=== PATIENT | male | born 1945 | race Caucasian/White ===

== ENCOUNTER → 2018-01-25 07:06 | Outpatient (CLI) | payer MEDICARE, OTHER, SELFPAY ==
--- NOTE | 2018-01-25 07:17 | CT_ITS ---
STUDY: CT CHEST WITHOUT CONTRAST REASON FOR EXAM: Male, 72 years old. Dyspnea. RADIATION DOSAGE (If Supplied By Facility): CTDIvol = ( 16.12 ) mGy, DLP = ( 545.25 ) mGycm TECHNIQUE: Transaxial imaging was performed without the administration of intravenous contrast material. Multiplanar coronal and sagittal images were reformatted. Individualized dose optimization techniques were used for this CT. COMPARISON: Chest, May 24, 2015. FINDINGS: There is persistent elevation of the right hemidiaphragm. There is bilateral apical pleural scarring most marked on the right. There are scattered blebs throughout the bilateral lungs there is thickening versus fluid in the superior right oblique fissure. There is atelectasis in the right middle lobe. There is mild thickening of the left oblique fissure. There are calcifications along the right diaphragmatic surface. There are minimal bilateral pleural effusions versus pleural thickening. The heart is normal size. Normal pericardium. There is evidence of CABG procedure. There are pacer leads seen in the right heart. There is a lead running along the left chest wall to extend into the chest and along the posterior aspect of the left ventricle. There is nonspecific subcentimeter mediastinal lymphadenopathy. Normal hilar regions. Normal unenhanced pulmonary arteries. There is atherosclerotic calcification of the aortic arch with tortuosity and elongation of the aortic arch and descending thoracic aorta. There are multi-level degenerative changes of the thoracic spine. There is median sternotomy wires in the sternum. The pacer generator lies soft tissue left chest. There is no demonstrated abnormality of the visualized upper abdomen. CT/Chest without Contrast IMPRESSION: 1. Elevated right hemidiaphragm with right middle lobe atelectasis. 2. Diffuse emphysematous changes in lungs without acute infiltrate or mass. 3. Small bilateral pleural effusions. 4. Cardiac pacemaker with evidence of CABG procedure. 5. Right diaphragmatic calcifications. Electronically Signed: Micheal Larson DO at 17:34 EDT Tel [phone], Service support ,
--- NOTE | 2018-01-25 07:45 | RAD_ITS ---
STUDY: SNIFF TEST REASON FOR EXAM: Male, 72 years old. Elevated right hemidiaphragm RADIATION DOSAGE (If Supplied By Facility): CTDIvol = ( ) mGy, DLP = ( ) mGycm. Individualized dose optimization techniques were used for this CT.? FLUOROSCOPY TIME (if supplied): (0:23) minutes/seconds TECHNIQUE: Forced inspiration visualized under fluoroscopy COMPARISON: None. FINDINGS: With forced inspiration, there is normal downward motion of the left hemidiaphragm. However, with forced inspiration there was elevation of the right hemidiaphragm system with paroxysmal movement and paralysis of the right hemidiaphragm. RAD/Fluoroscopy 1 Hr or Less IMPRESSION: Abnormal upward movement of the right hemidiaphragm with forced inspiration consistent with paralyzed right hemidiaphragm. Normal downward movement of the left hemidiaphragm with forced inspiration Electronically Signed: Lane Archer MD at 8:30 EDT , Service support ,
[2018-01-25 07:51] LABS: Base Excess 4 mmol/L (-2 to +2); Bicarbonate 28.1 mmol/L (22-26); Blood Gas Specimen Type ART; O2 Delivery Device Room Air; PO2 62 mmHG (75-100); SITE R Radial; SO2 93 % (95-99); Time Given 744; Total Carbon Dioxide 29 mmol/L; pCO2 38.9 mmHg (35-45); pH 7.47 (7.35-7.45)
== END ==
PROVIDERS: Family Provider Family Medicine; PCP Family Medicine; Visit Provider Internal Medicine Pulmonary Disease
DX: R06.00 Dyspnea, unspecified (principal); R91.8 Other nonspecific abnormal finding of lung field; J43.9 Emphysema, unspecified; R09.02 Hypoxemia
CPT/HCPCS: 36600; 71250; 76000; 82803

== ENCOUNTER → 2018-07-29 14:20 | Outpatient (CLI) | payer MEDICARE, OTHER, SELFPAY ==
--- NOTE | 2018-07-29 14:23 | CT_ITS ---
STUDY: CT CHEST WITHOUT CONTRAST REASON FOR EXAM: Male, 72 years old. Lung nodule RADIATION DOSAGE (If Supplied By Facility): CTDIvol = ( 17.76 ) mGy, DLP = ( 536.91 ) mGycm TECHNIQUE: Transaxial imaging was performed without the administration of intravenous contrast material. Coronal and sagittal 2-D MPR Individualized dose optimization techniques were used for this CT. COMPARISON: CT chest 01/25/2018, x-ray chest 05/24/2015 FINDINGS: Supraclavicular: No acute process. Thoracic body wall soft tissues: Mild symmetric gynecomastia. Left pectoral pacer device. No acute process. Upper abdomen: No acute process. Osseous structures: Median sternotomy. Mild kyphosis and scoliosis. Mild multilevel thoracic spondylosis without apparent stenosis. Mediastinum: Normal esophagus. A few small lymph nodes are present in the mediastinum, none pathologically enlarged. There is no apparent hilar lymphadenopathy. Heart: Mild to moderate cardiac [place] without pericardial effusion. Median sternotomy and CABG. Prominent calcification of the jena coronary arteries. Aortic valve annulus and mild leaflet calcifications. Aorta: Nondilated, mild arch atherosclerosis. Pulmonary arteries: Ectatic, main pulmonary artery 3.2 cm. Lungs: Right lower lobe chronic-appearing atelectasis associated with calcified plaque of the diaphragmatic pleura. Mild pleural thickening extending upward along the posterior pleural reflection of the right lower lobe. Slender loculated effusion right lower lobe posterior pleural reflection 4.8 mm. No effusion on the left. Mild pleural thickening on the left. Multifocal thin-walled cysts are present in the lungs bilaterally, in a pattern favoring chronic sequela from prior infectious/inflammatory process rather than primary polycystic disease. There are a few scattered pulmonary nodules. Largest, left lower lobe, image 63 on the axials by 20 mm, and left upper lobe anterior segment image 51 7 mm. Scattered interstitial scar. Mild pocket wall thickening in the lower lobe basilar segments bilaterally, chronic inflammatory. Chronic interstitial disease and pulmonary nodules are stable compared to prior imaging of 01/25/2018. Right major fissural thickening that was present on the prior study has resolved. Minimal loculated right effusion is stable. Mild bronchial wall thickening is stable. CT/Chest without Contrast IMPRESSION: Stable pattern in the lungs bilaterally of chronic interstitial changes, and pulmonary nodules. The largest pulmonary nodule measures just over 7 mm. Continued follow-up is recommended according to the Fleischner Society Criteria. Next CT chest in 12 months. A follow-up low dose screening CT chest technique would be appropriate at that time. Electronically Signed: Alonzo Torres MD at 14:57 EST Tel , Service support ,
== END ==
PROVIDERS: Family Provider Family Medicine; PCP Family Medicine; Referring Provider Internal Medicine Pulmonary Disease; Visit Provider Internal Medicine Pulmonary Disease
DX: R91.1 Solitary pulmonary nodule (principal)
CPT/HCPCS: 71250

== ENCOUNTER → 2020-04-08 13:03 | Outpatient (CLI) | payer MEDICARE, OTHER, SELFPAY ==
[2019-08-05 13:28] VITALS: BMI 29.1
--- NOTE | 2020-04-08 13:09 | VDLE_ITS ---
Reason For Study: Right leg pain RIGHT CFV is compressible, spontaneous, competent and demonstrates pulsatile venous flow. FV is compressible, spontaneous, competent and demonstrates pulsatile venous flow. POP V is compressible, spontaneous, competent and demonstrates pulsatile venous flow. T/P Trunk is compressible. PTV is compressible. RT PerV is compressible. SFJ is competent and measures 0.74 x 0.74 cm. GSV proximal thigh measures 0.28 x 0.32 cm. GSV above knee is INCOMPETENT for greater than 0.5 seconds. GSV at knee measures 0.41 x 0.43 cm. GSV below knee is competent. ASV proximal calf is INCOMPETENT for greater than 0.5 seconds and measures 0.30 x 0.33 cm. SSV at junction is competent and measures 0.27 x 0.31 cm. Procedure This is a venous duplex using B-mode, color flow and spectral Doppler. Exam performed in department. Interpretation Summary No dvt or sv noted. Reflux noted in thigh GSV and calf ASV. Pulsatile flow noted throughout right leg. Ordering Physician: Isac Busch Referring Physician: Jcarlos Glasgow Performed By: Sarai Morales RVT
--- NOTE | 2020-04-08 13:10 | ADUL_ITS ---
Reason For Study: Atherosclerosis Right Velocities Ext. Iliac Artery, dist = 64.2 cm./sec. Common Femoral Artery, mid = 100.2 cm./sec. Supf Femoral Artery, prox = 57.8 cm./sec. Supf Femoral Artery, mid = 22.3 cm./sec. Supf Femoral Artery, dist. = 66.7 cm./sec. Profunda Femoral Artery = 54.5 cm./sec. Popliteal Artery, prox. = 34.6 cm./sec. Popliteal Artery, mid = 21.8 cm./sec. Popliteal Artery, dist = 16.8 cm./sec. Post. Tibial Artery, prox = 8.4 cm./sec. No flow noted BIOLOGICAL CHEMIST mid-dist. No flow noted PeroA prox. Peroneal Artery, mid = 38.1 cm./sec. Peroneal Artery,dist = 20.4 cm./sec. Ant. Tibial Artery, prox = 16.8 cm./sec. Ant. Tibial Artery, mid = 18.9 cm./sec. Ant. Tibial Artery, dist = 23 cm./sec. Procedure Exam performed in department. Interpretation Summary No flow noted in segments peroneal and posterior tibial on right leg. 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 Ordering Physician: Isac Busch Referring Physician: Jcarlos Glasgow Performed By: Sarai Morales RVT
== END ==
PROVIDERS: PCP Family Medicine; Visit Provider Surgery Vascular Surgery
DX: M79.89 Other specified soft tissue disorders (principal); M79.604 Pain in right leg; I70.221 Atherosclerosis of native arteries of extremities with rest pain, right leg
CPT/HCPCS: 93926; 93971

== ENCOUNTER → 2020-04-30 13:15 | Outpatient (CLI) | payer MEDICARE, OTHER, SELFPAY ==
[2020-04-21 14:32] VITALS: BMI 27.9
[2020-04-30 13:52] LABS: Anion Gap 7 (5-15); BUN 31 mg/dL (7-18); BUN/Creat Ratio 18.5 RATIO (10-20); Calcium,Total 8.8 mg/dL (8.5-10.1); Chloride 93 mmol/L (98-107); Creatinine, Serum 1.68 mg/dL (0.70-1.30); EST Glomerular Filtration Rate 43 mL/min (>60); Est Glom Filt Rate - Afr Amer 52 mL/min (>60); Glucose 291 mg/dL (74-106); Potassium 4.3 mmol/L (3.5-5.1); Sodium Level 132 mmol/L (136-145)
== END ==
PROVIDERS: PCP Family Medicine; Referring Provider Specialist; Visit Provider Specialist
DX: E11.59 Type 2 diabetes mellitus with other circulatory complications (principal); I25.10 Atherosclerotic heart disease of native coronary artery without angina pectoris; I25.5 Ischemic cardiomyopathy; I70.209 Unspecified atherosclerosis of native arteries of extremities, unspecified extremity
CPT/HCPCS: 36415; 80048

== ENCOUNTER → 2020-05-07 11:47 | Outpatient (CLI) | payer MEDICARE, OTHER, SELFPAY ==
[2020-04-21 14:32] VITALS: BMI 27.9
[2020-05-07 12:53] LABS: Anion Gap 7 (5-15); BUN 30 mg/dL (7-18); BUN/Creat Ratio 20.7 RATIO (10-20); Calcium,Total 8.7 mg/dL (8.5-10.1); Chloride 99 mmol/L (98-107); Creatinine, Serum 1.45 mg/dL (0.70-1.30); EST Glomerular Filtration Rate 51 mL/min (>60); Est Glom Filt Rate - Afr Amer 61 mL/min (>60); Glucose 260 mg/dL (74-106); Potassium 4.3 mmol/L (3.5-5.1); Sodium Level 135 mmol/L (136-145)
== END ==
PROVIDERS: PCP Family Medicine; Visit Provider Specialist
DX: I25.5 Ischemic cardiomyopathy (principal); I25.10 Atherosclerotic heart disease of native coronary artery without angina pectoris; I70.209 Unspecified atherosclerosis of native arteries of extremities, unspecified extremity; E11.59 Type 2 diabetes mellitus with other circulatory complications
CPT/HCPCS: 36415; 80048

== ENCOUNTER 2020-05-26 10:30 | Outpatient (RCR) | payer MEDICARE, OTHER, SELFPAY ==
[2020-05-10 14:41] VITALS: BMI 28.2
[2020-05-19 09:36] VITALS: BP 106/82; PULSE 80; RESP 16; TEMP 36.6; BMI 27.1
--- NOTE | 2020-05-19 12:21 | PCM.WC.HP ---
(1) Decubitus ulcer of foot, stage 3 Status: Acute Qualifiers: Laterality: right Qualified Code(s): L89.893 - Pressure ulcer of other site, stage 3 Code(s): L89.893 - Pressure ulcer of other site, stage 3 (2) History of angioplasty of peripheral vessel Status: Acute Code(s): Z98.62 - Peripheral vascular angioplasty status (3) Ischemic cardiomyopathy Status: Acute Code(s): I25.5 - Ischemic cardiomyopathy (4) Biventricular implantable cardioverter-defibrillator (ICD) in situ Status: Chronic Code(s): Z95.810 - Presence of automatic (implantable) cardiac defibrillator (5) Coronary artery disease involving [place] coronary artery of [place] heart Status: Chronic Qualifiers: Code(s): I25.10 - Atherosclerotic heart disease of [place] coronary artery without angina pectoris Comment: MAYS to LAD, SVG to PDA 10/2003; 3.0 x 12 mm Rebel BMS to pD1 03/27/19 (6) Diabetes mellitus type 2 with atherosclerosis of arteries of extremities Status: Chronic Code(s): E11.59 - Type 2 diabetes mellitus with other circulatory complications; I70.209 - Unspecified atherosclerosis of [place] arteries of extremities, unspecified extremity (7) History of coronary artery stent placement Status: Chronic Code(s): Z95.5 - Presence of coronary angioplasty implant and graft Comment: 3.0 x 12 mm Rebel BMS to pD1 03/27/19 History of Present Illness Date of Service: 05/19/20 Chief Complaint: Follow-up right lateral diabetic foot ulcer History of Wound: 74-year-old white male with a left BK amp right partial amp of the right foot states for about a month the right leg has not been feeling well meaning he felt something was not right. Went to see his therapist for his leg limbs and she told him he need to get a shoe right away for the right foot. Within days the right lateral foot opened up with a hole on the right lateral metatarsal. Patient states last hemoglobin A1c was 2 months ago and has around 6. Past Medical History Past Medical History: Chronic Problems (Last Reviewed 05/10/20 @ 15:[address] 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) 2006, 2012 gen change History of coronary artery stent placement (Chronic ~03/2019) 3.0 x 12 mm Rebel BMS to pD1 03/27/19 Peripheral vascular disease due to secondary diabetes (Chronic) Coronary artery disease involving [place] coronary artery of [place] heart (Chronic) MAYS to LAD, SVG to PDA 10/2003; 3.0 x 12 mm Rebel BMS to pD1 03/27/19 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) Past Medical History: Right DFU Allergies/Adverse Reactions: Allergies amiodarone Allergy (Severe, Verified 05/19/20 10:03) pulmonary fibrosis sotalol Allergy (Severe, Verified 05/19/20 10:03) intolerant levofloxacin [From Levaquin] Allergy (Verified 05/19/20 10:12) Pain in joints LEG CRAMPING gabapentin Adverse Reaction (Verified 05/19/20 10:12) Diarrhea latex Adverse Reaction (Verified 05/19/20 10:12) Rash Home Medications: Ambulatory Orders Medication Instructions Recorded Oxycodone HCl/Acetaminophen 1 - 2 tab PO Q4H PRN PRN 03/17/15 [Percocet 5/325] acetaminophen 500 mg tablet 1,000 - 3,000 mg PO TID PRN tab 08/05/19 levothyroxine 200 mcg tablet 200 mcg PO DAILY 08/05/19 omeprazole 40 mg capsule,delayed 40 mg PO DAILY 08/05/19 release prednisone 2.5 mg tablet 2.5 mg PO DAILY 08/05/19 metoprolol succinate 50 mg 50 mg PO DAILY #90 tab 10/13/19 tablet,extended release 24 hr clopidogrel 75 mg tablet 75 mg PO DAILY #90 tab 11/10/19 lisinopril 2.5 mg tablet 2.5 mg PO DAILY #90 tab 11/10/19 pravastatin 40 mg tablet 40 mg PO QHS #90 tab 11/10/19 aspirin 81 mg tablet,delayed 81 mg PO DAILY 12/17/19 release insulin glargine 100 unit/mL 15 unit SC BID ml 12/17/19 subcutaneous solution insulin regular human 100 unit/mL See Rx Instructions SC TID ml 04/21/20 injection solution bumetanide 1 mg tablet 1 mg PO DAILY #0 tab 05/05/20 Cephalexin [Keflex] 500 mg PO Q8H 05/19/20 Smoking Status: Former smoker Review of Systems Constitutional: Denies: Chills, Fever Eyes: Denies: Blurred vision, Drainage, Pain HEENT: Denies: Difficulty Hearing, Difficulty Swallowing, Sore Throat, Visual Changes Cardiovascular: Denies: Chest Pain, Palpitations, Syncope Respiratory: Denies: Cough, Shortness of Breath Gastrointestinal: Denies: Abdominal Pain, Nausea, Vomiting Genitourinary: Denies: Dysuria, Frequency Musculoskeletal: Denies: Joint Pain, Muscle pain Skin: Denies: Jaundice, Rash Neurological: Denies: Balance problems, Change in Speech, Difficulty swallowing, Focal weakness Psychiatric: Denies: Anxiety, Depression Endocrine: Denies: Change in Body Habitus Hematologic/ Lymphatic: Denies: Adenopathy - Physical Exam Vital Signs Temp Pulse Resp BP 97.9 F 80 16 106/82 H 05/19/20 09:36 05/19/20 09:36 05/19/20 09:36 05/19/20 09:36 General: Oriented x3, Cooperative, Well developed HEENT: Atraumatic, PERRLA Oral: Moist Mucosa Neck: Supple, No JVD Lungs: Clear to auscultation, Normal air movement Cardiovascular: Regular rate, Regular Rhythm Abdomen: Bowel Sounds Present, Soft, Non Tender, No Hepato-splenomegaly Extremities: No clubbing, No edema Wound Measurements and Assessment WC - Nurse 1 - General Ulcer Measurement Start: 05/19/20 09:36 Freq: Status: Active Protocol: Activity Type Activity Date Activity User E-Sign Co-Sign Detail Recorded Client Recorded Date Recorded By Document 05/19/20 09:36 [facility] [id number] 05/19/20 09:59 [facility] 05/19/20 09:36 Wound Center Nurse 1 [Ulcer Assessment] #3- R LAT FOOT -Combined with other wound No -Current Size (cm) - Length 0.8 -Current Size (cm) - Width 0.9 -Current Size (cm) - Depth 0.5 -Total Square Cm 0.72 -Date of Last Picture (Recall this 05/19/20 field) -Photo Taken Yes -Epithelialization None Present -Tunneling No -Undermining/Tunneling No -Circular Undermining No -Exudate Amt Small -Exudate Type Serosanguineous -Wound Margin Distinct, Outline Attached -Granulation Amt None Present (0 %) -Slough/Fibrin Yes -Necrosis Amt Large (67-100%) -Necrotic Tissue Type Adherent Slough -Texture (Allison-wound Skin Appearance) Assessed, Scarring -Moisture (Allison-wound Skin Appearance Assessed, ) Maceration -Color (Allison-wound Skin Appearance) Assessed -Temperature (Allison-wound Skin No Abnormality Appearance) (Pt Warm) -Tenderness on Palpation (Allison-wound No Skin Appearance) -Ulcer Cleansing Rinsed/ Irrigated with Saline -Foul Odor after Cleansing No -Anesthetic Used 5% Lidocaine Gel [Edema Assessment] -Lower Limb Edema Present Yes -Right Calf (cm) 38.1 -Right Ankle (cm) 26.1 WC - Nurse 2 - General Ulcer CM Notes Start: 05/19/20 09:36 Freq: Status: Active Protocol: Activity Type Activity Date Activity User E-Sign Co-Sign Detail Recorded Client Recorded Date Recorded By Document 05/19/20 10:31 MW [id number] 05/19/20 10:40 MW 05/19/20 10:31 Wound Center Nurse 2 [Procedure/Treatment] #3- R LAT FOOT -Time 10:34 -Correct Patient Yes -Correct Side, Site, Position Yes -Correct Procedure Yes -Procedure Performed Yes -Type of Procedure Debridement -Clinical Debridement Subcutaneous -Tissue Removed Subcutaneous -Post Debridement (cm) - Length 1.4 -Post Debridement (cm) - Width 2.0 -Post Debridement (cm) - Depth 0.4 -Total Square (Post) (cm) 2.80 -Area of Debridement (cm) - Length 1.4 -Area of Debridement (cm) - Width 2.0 -Total Square (Area) (cm) 2.80 -Tunneling No -Undermining/Tunneling No -Circular Undermining No -Wound/Ulcer Outcome Not Healed -Ulcer Cleansing Rinsed/ Irrigated with Saline -Foul Odor after Cleansing No -Bioengineered Tissue No -Bleeding Controlled with Pressure -Offloading No -Treatment Response Procedure Tolerated Well -Debridement - Subq, 1st 20sq cm Yes [See Physician Procedure note for Specifics] Pain Scale: 0-10 Numeric [Pain] -Is Patient Pain Free? Yes GEOVANNI - Nurse 3 - General Ulcer D/C NN Start: 05/19/20 09:36 Freq: Status: Active Protocol: Activity Type Activity Date Activity User E-Sign Co-Sign Detail Recorded Client Recorded Date Recorded By Document 05/19/20 11:07 [facility] [id number] 05/19/20 11:08 [facility] 05/19/20 11:07 Wound Care Nurse 3 [Wound Dressing] #3- R LAT FOOT -Ulcer Cleansing Rinsed/ Irrigated with Saline -Foul Odor after Cleansing No -Primary Dressing Applied Fibracol Plus 4x4,NonAdherent Contact Layer -Primary Dressing Covered/Secured Dry Gauze, with Secured with Tape -Fibracol Plus 4x4 1 [Compression Applied] Right -Compression Wrap Jem Wrap [Post Procedure Tolerated] -Treatment Response Procedure Tolerated Well Pain Scale: 0-10 Numeric [Pain] -Is Patient Pain Free? Yes WC - Visit Discharge [Visit Discharge Information] -Discharge Condition Stable -Ambulatory Status Ambulatory,Cane -Transportation Private Auto -Accompanied by Musculoskeletal: No Tenderness to Palpation of Joints or Extremities Lymphatic: No Cervical, Supraclavicular, or Inguinal Adenopathy Neurological: Cranial nerves II-XII grossly intact, Neuro grossly intact Psych/Mental Status: Normal Affect, Appropriate Debridement Note Post-Debridement Measurements/Treatment - Nurse 2 - General Ulcer CM Notes Start: 05/19/20 09:36 Freq: Status: Active Protocol: Activity Type Activity Date Activity User E-Sign Co-Sign Detail Recorded Client Recorded Date Recorded By Document 05/19/20 10:31 MW [id number] 05/19/20 10:40 MW 05/19/20 10:31 Wound Center Nurse 2 #3- R LAT FOOT -Time 10:34 -Correct Patient Yes -Correct Side, Site, Position Yes -Correct Procedure Yes -Procedure Performed Yes -Type of Procedure Debridement -Clinical Debridement Subcutaneous -Tissue Removed Subcutaneous -Post Debridement (cm) - Length 1.4 -Post Debridement (cm) - Width 2.0 -Post Debridement (cm) - Depth 0.4 -Total Square (Post) (cm) 2.80 -Area of Debridement (cm) - Length 1.4 -Area of Debridement (cm) - Width 2.0 -Total Square (Area) (cm) 2.80 -Tunneling No -Undermining/Tunneling No -Circular Undermining No -Wound/Ulcer Outcome Not Healed -Ulcer Cleansing Rinsed/ Irrigated with Saline -Foul Odor after Cleansing No -Bioengineered Tissue No -Bleeding Controlled with Pressure -Offloading No -Treatment Response Procedure Tolerated Well -Debridement - Subq, 1st 20sq cm Yes Pain Scale: 0-10 Numeric Is Patient Pain Free? Yes - Nurse 3 - General Ulcer D/C NN Start: 05/19/20 09:36 Freq: Status: Active Protocol: Activity Type Activity Date Activity User E-Sign Co-Sign Detail Recorded Client Recorded Date Recorded By Document 05/19/20 11:07 [facility] [id number] 05/19/20 11:08 [facility] 05/19/20 11:07 Wound Care Nurse 3 #3- R LAT FOOT -Ulcer Cleansing Rinsed/ Irrigated with Saline -Foul Odor after Cleansing No -Primary Dressing Applied Fibracol Plus 4x4,NonAdherent Contact Layer -Primary Dressing Covered/Secured with Dry Gauze, Secured with Tape -Fibracol Plus 4x4 1 Right -Compression Wrap Jem Wrap Treatment Response Procedure Tolerated Well Pain Scale: 0-10 Numeric Is Patient Pain Free? Yes - Visit Discharge Discharge Condition Stable Ambulatory Status Ambulatory,Cane Transportation Private Auto Accompanied by Wound debrided: Right DFU Wound Grade/Stage: Stage III Type of Debridement: Excisional debridement Anesthesia Used: 5% Lidocaine Gel Depth: Down to and including healthy tissue, in the subcutaneous layer Percentage of wound debrided: 100 Instrument Used: 7mm curette, #15 blade, Forceps Tissue Removed: Devitalized tissue slough Severity: Fat Layer Exposed Amount of bleeding with debridement: Mild Bleeding Controlled with: Compression and gauze Patient tolerated procedure well Assessment/Plan Aerobic and anaerobic cultures obtained Assessment: Right DFU. Coronary artery disease. Diabetes with insulin dependency. Poly neuropathy Plan: Wash right foot with Hibiclens or antibacterial soap. Pack wound with Fibracol moistened then Adaptic. Cover with gauze may use Coban then Jem wrap to lower leg every day. We will call with culture results. Start metronidazole 250 3 times daily x14 days #42. No up in 1 week
[2020-05-26 10:32] VITALS: BP 101/47; PULSE 91; RESP 16; TEMP 36.1; BMI 27.1
--- NOTE | 2020-05-26 12:19 | PN.PCM_ITS ---
(1) Decubitus ulcer of foot, stage 3 Status: Acute Qualifiers: Laterality: right Qualified Code(s): L89.893 - Pressure ulcer of other site, stage 3 Code(s): L89.893 - Pressure ulcer of other site, stage 3 (2) History of angioplasty of peripheral vessel Status: Acute Code(s): Z98.62 - Peripheral vascular angioplasty status (3) Ischemic cardiomyopathy Status: Acute Code(s): I25.5 - Ischemic cardiomyopathy (4) Biventricular implantable cardioverter-defibrillator (ICD) in situ Status: Chronic Code(s): Z95.810 - Presence of automatic (implantable) cardiac defibrillator (5) Coronary artery disease involving hamilton coronary artery of hamilton heart Status: Chronic Qualifiers: Code(s): I25.10 - Atherosclerotic heart disease of [place] coronary artery without angina pectoris Comment: MAYS to LAD, SVG to PDA 10/2003; 3.0 x 12 mm Rebel BMS to pD1 03/27/19 (6) Diabetes mellitus type 2 with atherosclerosis of arteries of extremities Status: Chronic Code(s): E11.59 - Type 2 diabetes mellitus with other circulatory complications; I70.209 - Unspecified atherosclerosis of [place] arteries of extremities, unspecified extremity (7) History of coronary artery stent placement Status: Chronic Code(s): Z95.5 - Presence of coronary angioplasty implant and graft Comment: 3.0 x 12 mm Rebel BMS to pD1 03/27/19 Type of Wound Date of Service: 05/26/20 Chief Complaint: Follow-up right lateral diabetic foot ulcer History of Wound: 74-year-old white male with a left BK amp right partial amp of the right foot states for about a month the right leg has not been feeling well meaning he felt something was not right. Went to see his therapist for his leg limbs and she told him he need to get a shoe right away for the right foot. Within days the right lateral foot opened up with a hole on the right lateral metatarsal. Patient states last hemoglobin A1c was 2 months ago and has around 6. Progress of Wound: Today the hole on the lateral aspect of the right foot is slightly smaller but still there we will apply a snap wound VAC to the area today. Cultures came back positive for many bacteria will be started on a couple of antibiotics. Patient is also going to start wearing a new boot so his foot does not slide around. - Physical Exam Vital Signs Temp Pulse Resp BP 97.0 F L 91 16 101/47 L 05/26/20 10:32 05/26/20 10:32 05/26/20 10:32 05/26/20 10:32 General: Oriented x3, Cooperative, Well developed HEENT: Atraumatic, PERRLA Oral: Moist Mucosa Neck: Supple, No JVD Lungs: Clear to auscultation, Normal air movement Cardiovascular: Regular rate, Regular Rhythm Abdomen: Bowel Sounds Present, Soft, Non Tender, No Hepato-splenomegaly Extremities: No clubbing, Edema Skin: Ulcer/ Wound - Decubitus ulcer right lateral foot Wound Measurements and Assessment WC - Nurse 1 - General Ulcer Measurement Start: 05/19/20 09:36 Freq: Status: Active Protocol: Activity Type Activity Date Activity User E-Sign Co-Sign Detail Recorded Client Recorded Date Recorded By Document 05/26/20 10:32 HENRY [id number] 05/26/20 10:41 HENRY 05/26/20 10:32 Wound Center Nurse 1 [Ulcer Assessment] #4- R PLANTAR -Combined with other wound No -Current Size (cm) - Length 0.4 -Current Size (cm) - Width 1 -Current Size (cm) - Depth 0.1 -Total Square Cm 0.4 -Date of Last Picture (Recall this 05/26/20 field) -Photo Taken Yes -Epithelialization None Present -Tunneling No -Undermining/Tunneling No -Circular Undermining No -Exudate Amt Small -Exudate Type Serosanguineous -Wound Margin Distinct, Outline Attached -Granulation Amt Medium (34-66%) -Granulation Quality Red -Slough/Fibrin Yes -Necrosis Amt Medium (34-66%) -Necrotic Tissue Type Adherent Slough -Texture (Allison-wound Skin Appearance) Assessed, Scarring -Moisture (Allison-wound Skin Appearance Assessed ) -Color (Allison-wound Skin Appearance) Assessed -Temperature (Allison-wound Skin No Abnormality Appearance) (Pt Warm) -Tenderness on Palpation (Allison-wound No Skin Appearance) -Ulcer Cleansing Rinsed/ Irrigated with Saline -Foul Odor after Cleansing No -Anesthetic Used 4% Lidocaine Solution #3- R LAT FOOT -Combined with other wound No -Current Size (cm) - Length 0.6 -Current Size (cm) - Width 0.7 -Current Size (cm) - Depth 0.3 -Total Square Cm 0.42 -Photo Taken No -Epithelialization None Present -Tunneling No -Undermining/Tunneling No -Circular Undermining No -Exudate Amt Medium -Exudate Type Serosanguineous -Wound Margin Distinct, Outline Attached -Granulation Amt Medium (34-66%) -Granulation Quality Red -Slough/Fibrin Yes -Necrosis Amt Medium (34-66%) -Necrotic Tissue Type Adherent Slough -Texture (Allison-wound Skin Appearance) Assessed, Scarring -Moisture (Allison-wound Skin Appearance Assessed ) -Color (Allison-wound Skin Appearance) Assessed -Temperature (Allison-wound Skin No Abnormality Appearance) (Pt Warm) -Tenderness on Palpation (Allison-wound No Skin Appearance) -Ulcer Cleansing Rinsed/ Irrigated with Saline -Foul Odor after Cleansing No -Anesthetic Used 4% Lidocaine Solution [Edema Assessment] -Lower Limb Edema Present Yes -Right Calf (cm) 39.5 -Right Ankle (cm) 26.5 WC - Nurse 2 - General Ulcer CM Notes Start: 05/19/20 09:36 Freq: Status: Active Protocol: Activity Type Activity Date Activity User E-Sign Co-Sign Detail Recorded Client Recorded Date Recorded By Document 05/26/20 11:07 MW [id number] 05/26/20 11:17 MW 05/26/20 11:07 Wound Center Nurse 2 [Procedure/Treatment] #4- R PLANTAR -Time 11:07 -Correct Patient Yes -Correct Side, Site, Position Yes -Correct Procedure Yes -Procedure Performed No -Post Debridement (cm) - Length 0 -Post Debridement (cm) - Width 0 -Post Debridement (cm) - Depth 0 -Total Square (Post) (cm) 0 -Wound/Ulcer Outcome Healed- Epithelialized -Ulcer Cleansing Rinsed/ Irrigated with Saline -Debridement - Subq, 1st 20sq cm No #3- R LAT FOOT -Time 11:08 -Correct Patient Yes -Correct Side, Site, Position Yes -Correct Procedure Yes -Procedure Performed Yes -Type of Procedure Debridement -Clinical Debridement Subcutaneous -Tissue Removed Subcutaneous -Post Debridement (cm) - Length 0.8 -Post Debridement (cm) - Width 0.7 -Post Debridement (cm) - Depth 0.4 -Total Square (Post) (cm) 0.56 -Area of Debridement (cm) - Length 0.8 -Area of Debridement (cm) - Width 0.7 -Total Square (Area) (cm) 0.56 -Tunneling No -Undermining/Tunneling No -Circular Undermining No -Wound/Ulcer Outcome Not Healed -Ulcer Cleansing Rinsed/ Irrigated with Saline -Foul Odor after Cleansing No -Bioengineered Tissue No -Bleeding Controlled with Pressure -Offloading No -Treatment Response Procedure Tolerated Well -Debridement - Subq, 1st 20sq cm Yes [See Physician Procedure note for Specifics] Pain Scale: 0-10 Numeric [Pain] -Is Patient Pain Free? Yes - Nurse 3 - General Ulcer D/C NN Start: 05/19/20 09:36 Freq: Status: Active Protocol: Activity Type Activity Date Activity User E-Sign Co-Sign Detail Recorded Client Recorded Date Recorded By Document 05/26/20 11:49 MT [id number] 05/26/20 11:50 MT 05/26/20 11:49 Wound Care Nurse 3 [Wound Dressing] #3- R LAT FOOT -Ulcer Cleansing Rinsed/ Irrigated with Saline -Other Dressing SNAP AND JEM WRAPS [Compression Applied] Right -Compression Wrap Jem Wrap WC - Visit Discharge [Visit Discharge Information] -Discharge Condition Stable -Ambulatory Status Ambulatory -Transportation Private Auto -Medication Reconcilliation completed No & provided to patient/care provider -Clinical Summary of Care Provided Yes -Notes: DONT REMOVE SNAP VAC FOR ONE WEEK Musculoskeletal: No Tenderness to Palpation of Joints or Extremities Lymphatic: No Cervical, Supraclavicular, or Inguinal Adenopathy Neurological: Cranial nerves II-XII grossly intact, Neuro grossly intact Psych/Mental Status: Normal Affect, Appropriate Debridement Note Post-Debridement Measurements/Treatment - Nurse 2 - General Ulcer CM Notes Start: 05/19/20 09:36 Freq: Status: Active Protocol: Activity Type Activity Date Activity User E-Sign Co-Sign Detail Recorded Client Recorded Date Recorded By Document 05/19/20 10:31 MW [id number] 05/19/20 10:40 MW Document 05/26/20 11:07 MW [id number] 05/26/20 11:17 MW 05/19/20 05/26/20 10:31 11:07 Wound Center Nurse 2 #4- R PLANTAR -Time 11:07 -Correct Patient Yes -Correct Side, Site, Position Yes -Correct Procedure Yes -Procedure Performed No -Post Debridement (cm) - Length 0 -Post Debridement (cm) - Width 0 -Post Debridement (cm) - Depth 0 -Total Square (Post) (cm) 0 -Wound/Ulcer Outcome Healed- Epithelialized -Ulcer Cleansing Rinsed/ Irrigated with Saline -Debridement - Subq, 1st 20sq cm No #3- R LAT FOOT -Time 10:34 11:08 -Correct Patient Yes Yes -Correct Side, Site, Position Yes Yes -Correct Procedure Yes Yes -Procedure Performed Yes Yes -Type of Procedure Debridement Debridement -Clinical Debridement Subcutaneous Subcutaneous -Tissue Removed Subcutaneous Subcutaneous -Post Debridement (cm) - Length 1.4 0.8 -Post Debridement (cm) - Width 2.0 0.7 -Post Debridement (cm) - Depth 0.4 0.4 -Total Square (Post) (cm) 2.80 0.56 -Area of Debridement (cm) - Length 1.4 0.8 -Area of Debridement (cm) - Width 2.0 0.7 -Total Square (Area) (cm) 2.80 0.56 -Tunneling No No -Undermining/Tunneling No No -Circular Undermining No No -Wound/Ulcer Outcome Not Healed Not Healed -Ulcer Cleansing Rinsed/ Rinsed/ Irrigated with Irrigated with Saline Saline -Foul Odor after Cleansing No No -Bioengineered Tissue No No -Bleeding Controlled with Pressure Pressure -Offloading No No -Treatment Response Procedure Procedure Tolerated Well Tolerated Well -Debridement - Subq, 1st 20sq cm Yes Yes Pain Scale: 0-10 Numeric Is Patient Pain Free? Yes Yes WC - Nurse 3 - General Ulcer D/C NN Start: 05/19/20 09:36 Freq: Status: Active Protocol: Activity Type Activity Date Activity User E-Sign Co-Sign Detail Recorded Client Recorded Date Recorded By Document 05/19/20 11:07 [facility] [id number] 05/19/20 11:08 [facility] Document 05/26/20 11:49 [place] [id number] 05/26/20 11:50 [place] 05/19/20 05/26/20 11:07 11:49 Wound Care Nurse 3 #3- R LAT FOOT -Ulcer Cleansing Rinsed/ Rinsed/ Irrigated with Irrigated with Saline Saline -Foul Odor after Cleansing No -Primary Dressing Applied Fibracol Plus 4x4,NonAdherent Contact Layer -Other Dressing SNAP AND JEM WRAPS -Primary Dressing Covered/Secured with Dry Gauze, Secured with Tape -Fibracol Plus 4x4 1 Right -Compression Wrap Jem Wrap Jem Wrap Treatment Response Procedure Tolerated Well Pain Scale: 0-10 Numeric Is Patient Pain Free? Yes WC - Visit Discharge Discharge Condition Stable Stable Ambulatory Status Ambulatory,Cane Ambulatory Transportation Private Auto Private Auto Accompanied by Medication Reconcilliation completed & No provided to patient/care provider Clinical Summary of Care Provided Yes Notes: DONT REMOVE SNAP VAC FOR ONE WEEK Wound debrided: Right lateral foot decubitus ulcer Wound Grade/Stage: Stage III Type of Debridement: Excisional debridement Anesthesia Used: 5% Lidocaine Gel Depth: Down to and including healthy tissue Percentage of wound debrided: 100 Instrument Used: 5mm curette Tissue Removed: Slough and devitalized tissue Severity: Fat Layer Exposed Amount of bleeding with debridement: Mild Bleeding Controlled with: Pressure Patient tolerated procedure well Assessment/Plan Active Problems (Last Reviewed 05/10/20 @ 15:[address] Jovana Singh MD) Decubitus ulcer of foot, stage 3 (Acute) History of angioplasty of peripheral vessel (Acute ~05/04/20) Ischemic cardiomyopathy (Acute) Biventricular implantable cardioverter-defibrillator (ICD) in situ (Chronic) History of coronary artery stent placement (Chronic ~03/2019) 3.0 x 12 mm Rebel BMS to pD1 03/27/19 Coronary artery disease involving hamilton coronary artery of hamilton heart (Chronic) MAYS to LAD, SVG to PDA 10/2003; 3.0 x 12 mm Rebel BMS to pD1 03/27/19 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) Assessment: Right DFU. Coronary artery disease. Diabetes with insulin dependency. Poly neuropathy Plan: Wound VAC to right lateral foot. Prescription written for boot for right foot. Start antibiotic therapy that was writ. Continue start metronidazole 250 3 times daily x14 days #42. Follow-up in 1 week. No up in 1 week
== END 2020-05-31 23:59 ==
LOC: WC 10:30
PROVIDERS: PCP Family Medicine; Referring Provider Family Medicine; Visit Provider Nurse Practitioner
DX: L89.893 Pressure ulcer of other site, stage 3 (principal); I25.5 Ischemic cardiomyopathy; I25.10 Atherosclerotic heart disease of native coronary artery without angina pectoris; E11.59 Type 2 diabetes mellitus with other circulatory complications; I70.209 Unspecified atherosclerosis of native arteries of extremities, unspecified extremity; Z95.5 Presence of coronary angioplasty implant and graft; G47.33 Obstructive sleep apnea (adult) (pediatric); E11.51 Type 2 diabetes mellitus with diabetic peripheral angiopathy without gangrene; Z95.810 Presence of automatic (implantable) cardiac defibrillator; Z79.899 Other long term (current) drug therapy; Z79.82 Long term (current) use of aspirin; Z79.02 Long term (current) use of antithrombotics/antiplatelets; Z87.891 Personal history of nicotine dependence; E11.42 Type 2 diabetes mellitus with diabetic polyneuropathy
CPT/HCPCS: 11042; 87070; 87075; 87077; 87186; 87205; 97607; 99213; G0463

== ENCOUNTER 2020-06-09 11:35 | Emergency (ER) | payer MEDICARE, OTHER, SELFPAY ==
[2020-06-09 10:25] VITALS: BMI 27.1
[2020-06-09 11:39] VITALS: BP 123/66; PULSE 107; RESP 20; TEMP 36.3; O2SAT 99; BMI 27.8
--- NOTE | 2020-06-09 12:06 | EKG12_ITS ---
Test Reason : SOB Blood Pressure : / mmHG Vent. Rate : 102 BPM Atrial Rate : 102 BPM P-R Int : 000 ms QRS Dur : 154 ms QT Int : 364 ms P-R-T Axes : 046 191 016 degrees QTc Int : 474 ms Ventricular-paced rhythm Biventricular pacemaker detected Abnormal ECG Confirmed by TERRANCE ELLSWORTH, PRIMITIVO ([id number]), editor producer FRANTZ LYNN ([id number]) on 06/11/2020 2:03:35 PM Referred By: ABHISHEK/DAVID Confirmed By:PRIMITIVO CARLOS MD
--- NOTE | 2020-06-09 12:25 | RAD_ITS ---
STUDY: X-RAY CHEST REASON FOR EXAM: Male, 74 years old. INCREASED SOB WITH EXERTION OVER LAST COUPLE WEEKS. FATIGUE. TECHNIQUE: Single AP portable view of the chest. COMPARISON: Comparison is made with prior study dated 05/24/2016. FINDINGS: EKG electrodes are seen. Stable mild increased markings at the right lung base suggestive of scarring. Stable elevation of the right hemidiaphragm. Linear calcified pleural plaques at the right lung base. 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 A left-sided dual-chamber pacemaker is seen. Normal mediastinum and sandra. Normal visualized pulmonary arteries. There is atherosclerotic calcification of the aortic arch with tortuosity. Normal visualized thoracic spine. Normal visualized ribs, clavicles, and shoulders. There is no demonstrated abnormality of the visualized soft tissue structures of the upper abdomen. RAD/Chest 1 View (Portable) IMPRESSION: Elevation of the right hemidiaphragm. Findings suggestive of linear scarring at the right lung base with calcified right pleural plaques. Electronically Signed: Ramon Lemus, at 12:57 EST , Service support ,
[2020-06-09 12:44] LABS: Absolute Lymphocyte Count 0.32 X10^3/uL (0.83-4.51); Absolute Neutrophil Count 6.4 X10^3/uL (2.0-7.7); Basophil# 0.03 X10^3/uL; Basophil% 0.4 % (0-1); Eosinophil# 0.01 X10^3/uL; Eosinophils% 0.1 % (0-5); Hematocrit 31.7 % (40-54); Hemoglobin 10.7 g/dL (13.0-16.5); Lymphocyte # 0.32 X10^3/ul (4.0); Lymphocyte % 4.6 % (19-41); Mean Corp Hgb Conc 33.8 g/dL (32-36); Mean Corpuscular Hgb 32.8 pg (27.0-32.0); Mean Corpuscular Volume 97.2 fL (80-94); Mean Platelet Vol. 8.6 fl (6.2-12.0); Monocyte# 0.26 X10^3/uL; Monocyte% 3.7 % (0-10); NRBC Flagged by Analyzer 0 % (0-5); Neutrophil # 6.36 X10^3/uL (2.7-7.7); Neutrophil % 90.8 % (47-70); POSITIVE DIFFERENTIAL YES; Platelet Count 158 K/mm3 (150-450); RBC Distribution Width CV 13.9 % (11.6-14.6); RBC Distribution Width SD 46.7 fl (35.1-43.9); Red Blood Count 3.26 M/mm3 (4.6-6.2)
[2020-06-09 12:47] LABS: Differential Indicated SCAN CRITERIA MET
[2020-06-09 12:51] VITALS: PULSE 105; RESP 24; O2SAT 96
[2020-06-09 12:53] LABS: D-Dimer Quantitative (DVT/PE) 0.87 FEU/ug/m (0.27-0.49)
[2020-06-09 13:00] LABS: Anion Gap 7 (5-15); BUN 23 mg/dL (7-18); BUN/Creat Ratio 22.5 RATIO (10-20); Calcium,Total 9.2 mg/dL (8.5-10.1); Chloride 101 mmol/L (98-107); Creatinine, Serum 1.02 mg/dL (0.70-1.30); EST Glomerular Filtration Rate 76 mL/min (>60); Est Glom Filt Rate - Afr Amer 92 mL/min (>60); Glucose 78 mg/dL (74-106); Sodium Level 136 mmol/L (136-145)
[2020-06-09 13:09] VITALS: BP 128/76; PULSE 105; RESP 27; O2SAT 96
--- NOTE | 2020-06-09 13:15 | CT_ITS ---
STUDY: CTA CHEST REASON FOR EXAM: Male, 74 years old. INCREASED SOB/FATIGUE. Hx of CHF, pacer, CABG x 5 RADIATION DOSAGE (If Supplied By Facility): CTDIvol = ( 13.68 ) mGy, DLP = ( 532.59 ) mGycm TECHNIQUE: The examination was performed with the intravenous administration of IV 100mL Isovue-370. Post-processing of the angiographic images was performed, with multiplanar reformation and 3D reconstruction. Individualized dose optimization techniques were used for this CT. COMPARISON: Comparison is made with prior study dated 07/29/2018. FINDINGS: Normal enhancement of the main pulmonary artery and right and left pulmonary arteries. Normal enhancement of the bilateral peripheral pulmonary arteries. There is no demonstrated pulmonary embolism. Normal thoracic aorta and visualized great vessels. There is no demonstrated aortic dissection. Normal heart and pericardium. There are visualized mediastinal lymph nodes, which are within normal size limits, and with normal morphology. Normal hilar regions. Normal visualized trachea and bronchi. The lungs are well expanded. Stable scarring and emphysematous changes. Stable cystic changes in the right upper lobe. The previously seen nonspecific bilateral nodular densities have decreased in size. Scattered nodules are seen in the right lung. Calcified pleural plaques at the right lung base. Normal chest wall structures. There are degenerative changes of thoracic spine. Normal visualized upper abdomen. CT/CTA Chest W/WO Contrast IMPRESSION: No evidence of pulmonary embolism. Findings suggestive of scarring and emphysematous changes. The previously seen nodular densities are decreased in number and size. Electronically Signed: Ramon Lemus, at 14:49 EST , Service support ,
[2020-06-09 14:49] VITALS: BP 136/68; PULSE 99; RESP 22; O2SAT 94
--- NOTE | 2020-06-09 15:09 | ED.DCSUM_ITS ---
- ER Visit Summary Date of Service: 06/09/20 Chief Complaint: [Shortness of breath] History of Present Illness: The patient is a 74 M [presents to the emergency department with shortness of breath that started 3 weeks ago. Patient especially notices it with exertion. He denies any chest pain. Patient states that he is currently being treated for an ulcer on his right foot and is on cefdinir and linezolid. Patient was sent to the ER for evaluation by the wound center. Patient is a diabetic. He does have history of coronary artery disease and about a year ago had a stent placed in one of his coronaries. Patient publications writer is Dr. Singh. Patient denies recent travel or surgery. He has no history of PE or DVT. He does not wear home O2. He denies recent illness or COVID-19 exposures.] Physical Examination: [HEENT-PERRLA, EOMI. Cranial nerves II through XII gross ly intact. TMs clear. Mucous membranes moist. No adenopathy. Cardiovascular-regular rate and rhythm without murmur or ectopy Lungs-clear to auscultation, chest wall stable without crepitus or subcu emphysema Abdomen-normoactive bowel sounds, soft, nontender, no rebound or rigidity, no peritoneal signs. Extremities-intact ?4, normal range of motion, normal pulses, atraumatic] Test Results: [EKG obtained on arrival shows a ventricularly paced rhythm with a ventricular rate of 102 bpm. CBC with differential showed a white count 7.0, hemoglobin 10.7, hematocrit 32, platelets 158. Chemistries unremarkable. Troponin was less than 0.015. BNP was 1278. D-dimer was elevated 0.87. Chest x-ray showed poor inspiration and some bibasilar atelectasis. CT of the chest obtained to the elevated D-dimer showed no evidence of PE but did show some emphysematous changes. Patient's COVID-19 test PCR was negative.] Emergency Department Course and Treatment: [Patient placed on a cardiac nurse specialist on arrival. Patient did not have any episodes of hypoxemia.] Treatment Plan: [Etiology of patient's exertional dyspnea is unclear at this time. His BNP is elevated but he does not seem to be in overt failure. His last echo was in 2019 and his ejection fraction was 20 to 25%. He has known coronary artery disease so we discussed possible admission for further evaluation with possible stress testing. Due to the fact that were in a pandemic patient would prefer to follow-up with his publications writer as an outp atient and does not want to be admitted at this time. Patient understands I cannot rule out coronary artery disease as the etiology of his symptoms although he is not been having chest pain. Patient advised to return if increasing pain, shortness of breath, or condition should worsen anyway. Patient advised to follow-up with primary care physician and his publications writer within next 3 to 5 days.] Disposition: [Discharged home in stable condition] Impression: [Dyspnea-etiology uncertain] This note was generated with [employer] dictation software. It may contain incorrect words, spelling, and punctuation that were not noted in review of the chart prior to signing ED Disposition - Plan for ED Patient: Referrals: Jcarlos Glasgow MD [Primary Care Provider] -
--- NOTE | 2020-06-09 15:14 | ED.DEP ---
ED Disposition - Plan for ED Patient: Instructions: ED Dyspnea Referrals: Jcarlos Glasgow MD [Primary Care Provider] - Jovana Singh MD [STAFF PHYSICIAN] - 3-5 Days
[2020-06-09 15:22] VITALS: BP 130/54; PULSE 104; RESP 18; O2SAT 94
[2020-06-09 15:28] VITALS: BP 130/54; PULSE 104; RESP 18; O2SAT 94
== END 2020-06-09 15:36 | disposition home or self-care (01) ==
LOC: ED 13:03
PROVIDERS: Emergency Provider Emergency Medicine; PCP Family Medicine
DX: R06.02 Shortness of breath (principal); I25.10 Atherosclerotic heart disease of native coronary artery without angina pectoris; I50.9 Heart failure, unspecified; E11.9 Type 2 diabetes mellitus without complications; Z95.1 Presence of aortocoronary bypass graft; Z79.4 Long term (current) use of insulin; Z79.82 Long term (current) use of aspirin; Z79.02 Long term (current) use of antithrombotics/antiplatelets; Z79.899 Other long term (current) drug therapy; L97.514 Non-pressure chronic ulcer of other part of right foot with necrosis of bone; M86.9 Osteomyelitis, unspecified
CPT/HCPCS: 11042; 71045; 71275; 80048; 83880; 84484; 85025; 85379; 87635; 93005; 99284; Q9967; A4216; U0002

== ENCOUNTER 2020-06-11 09:25 | Inpatient (IN) | payer MEDICARE, OTHER, SELFPAY ==
[2020-06-11] VITALS (9 sets, daily range): BP systolic 107–128; BP diastolic 50–70; PULSE 78–103; RESP 14–24; TEMP 36.1–37.1; O2SAT 94–97; BMI 31.5; BMI 31.0
--- NOTE | 2020-06-11 09:30 | RAD_ITS ---
STUDY: X-RAY CHEST REASON FOR EXAM: Male, 74 years old. INCREASE SOB AND WEAKNESS TECHNIQUE: Single AP portable view of the chest. COMPARISON: Comparison is made with prior study dated 06/09/2020. FINDINGS: EKG electrodes are seen. Stable elevation of the right hemidiaphragm with the increased linear markings suggestive of scarring. There is no demonstrated pleural abnormality. 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 A left-sided dual-chamber pacemaker is seen. Normal mediastinum and sandra. Normal visualized pulmonary arteries. There is atherosclerotic calcification of the aortic arch with tortuosity. There are diffuse degenerative changes of the visualized thoracic spine. Normal visualized ribs, clavicles, and shoulders. There is no demonstrated abnormality of the visualized soft tissue structures of the upper abdomen. RAD/Chest 1 View (Portable) IMPRESSION: Stable elevation of the right hemidiaphragm with right basilar scarring. Electronically Signed: Ramon Lemus, at 10:25 EST , Service support ,
--- NOTE | 2020-06-11 09:30 | EKG12_ITS ---
Test Reason : SOB Blood Pressure : / mmHG Vent. Rate : 102 BPM Atrial Rate : 102 BPM P-R Int : 000 ms QRS Dur : 172 ms QT Int : 418 ms P-R-T Axes : 051 203 014 degrees QTc Int : 544 ms Ventricular-paced rhythm Biventricular pacemaker detected Abnormal ECG Confirmed by GAGE ELLSWORTH, RUBI ([id number]), editor index LEA ALDANA ([id number]) on 06/21/2020 8:44:45 AM Referred By: CODY Confirmed By:JERSON ALMONTE MD
--- NOTE | 2020-06-11 09:32 | ED.VIS.GEN ---
History of Present Illness Chief Complaint: Shortness of Breath Informant: Patient Onset: Days Context: Gradual Onset Timing: Continuous Current Severity: Moderate Maximum Severity: Moderate Narrative: The patient is a 74-year-old male medical history significant for congestive heart failure, prior CABG, pacemaker implantation, and COPD the presents to the emergency department worsening shortness of breath. Patient was actually seen here 2 days ago. At that point, he underwent CTA of the chest. There is no evidence of pulmonary embolus. He did appear to be in mild heart failure. The patient wanted to attempt outpatient therapy especially in light of the pandemic. He states he is been home, but has had no energy. He states if he tries to walk any distance he feels like he cannot catch his breath. He denies any fevers or chills. He had a scant cough. He does admit to orthopnea. He states he did not even take his insulin over the past 2 days because he is just been generally weak. Prior similar symptoms: Yes Recent Illness/Hospitalization: No Past Medical History - Allergies and Home Meds Allergies/Adverse Reactions: Allergies amiodarone Allergy (Severe, Verified 06/09/20 12:51) pulmonary fibrosis sotalol Allergy (Severe, Verified 06/09/20 12:51) intolerant levofloxacin [From Levaquin] Allergy (Verified 06/09/20 12:51) Pain in joints LEG CRAMPING gabapentin Adverse Reaction (Verified 06/09/20 12:51) Diarrhea latex Adverse Reaction (Verified 06/09/20 12:51) Rash Primary Care Physician: Jcarlos Glasgow MD [Primary Care Provider] - Prior records reviewed: Yes Past Medical History: - - Coronary vascular disease, peripheral vascular disease, COPD, hypertension Surgical History: coronary bypass surgery Smoking Status: Former smoker Review of Systems General: Denies: Chills, Fever, Sweats Eyes: Denies: Visual changes - bilaterally, Diplopia ENT: Denies: Rhinorrhea, Sore throat Cardiovascular: Denies: Chest pain, Palpitations Respiratory: Reports: Dyspnea, Cough. Denies: Dyspnea on exertion Gastrointestinal: Denies: Abdominal pain, Nausea, Vomiting, Diarrhea, Melena, Hematochezia Genitourinary: Denies: Dysuria, Hematuria, Frequency Musculoskeletal: Denies: Back pain, Extremity Pain Skin: Denies: Rash, Wounds Neurological: Denies: Headache, Weakness, Numbness Physical Exam Inital Vital Signs reviewed: Yes General: Well nourished, Well developed, No Acute Distress Head: Normocephalic, Atraumatic Eyes: Perrl, EOMI ENT: Moist mucous membranes, No rhinorrhea Neck: Supple, Nontender Cardiovascular: Regular rate, Regular rhythm, No murmurs Respiratory: No distress, Chest nontender, Rales, Diminished Abdomen: Soft, Nontender, Nondistended, Normal bowel sounds Back: Nontender, Normal Inspection Extremities: Nontender, No edema, - - Status post BKA of the left lower extremity. Status post revision amp of the forefoot of the right lower extremity. Skin: Normal color, No rash Neurological: Alert, Oriented x3, Cranial nerves II-XII grossly intact, Normal Strength, Normal Sensation Psychological: Normal affect, Normal Mood Diagnostic/Tx/Re-eval Chest X-Ray - ED: 1 View, Read by ED Physician, Normal, Mediastinum, Chronic Changes, Cardiomegaly Clinical Impression(s) from Imaging Studies Chest X-Ray 06/11/20 09:30 IMPRESSION: Stable elevation of the right hemidiaphragm with right basilar scarring. Electronically Signed: Ramon Mariah, at 10:25 EST , Service support , Abnormal Lab Results 06/11/20 06/11/20 06/11/20 09:50 09:50 09:50 WBC 9.2 RBC 3.42 L Hgb 11.1 L Hct 33.7 L MCV 98.5 H MCH 32.5 H MCHC 32.9 RDW Std Deviation 47.5 H RDW Coeff of Jac 14.1 Plt Count 151 MPV 9.1 Immature Gran % (Auto) 0.500 Neut % (Auto) 93.0 H Lymph % (Auto) 2.0 L [place] % (Auto) 4.2 Eos % (Auto) 0.1 Baso % (Auto) 0.2 Absolute Neuts (auto) 8.6 H Absolute Lymphs (auto) 0.18 L Nucleated RBC % 0 Sodium Cancelled Potassium Cancelled Chloride Cancelled Carbon Dioxide Cancelled Anion Gap Cancelled BUN Cancelled Creatinine Cancelled Estim Creat Clear Calc Cancelled Est GFR (MDRD) Af Amer Cancelled Est GFR (MDRD) Non-Af Cancelled BUN/Creatinine Ratio Cancelled Glucose Cancelled Calcium Cancelled Magnesium Total Bilirubin Cancelled AST Cancelled ALT Cancelled Alkaline Phosphatase Cancelled Troponin I Cancelled B-Natriuretic Peptide 1281.4 H Total Protein Cancelled Albumin Cancelled Globulin Cancelled Albumin/Globulin Ratio Cancelled 06/11/20 06/11/20 10:12 10:12 WBC RBC Hgb Hct MCV MCH MCHC RDW Std Deviation RDW Coeff of Jac Plt Count MPV Immature Gran % (Auto) Neut % (Auto) Lymph % (Auto) [place] % (Auto) Eos % (Auto) Baso % (Auto) Absolute Neuts (auto) Absolute Lymphs (auto) Nucleated RBC % Sodium 134 L Potassium 5.2 H Chloride 100 Carbon Dioxide 21.0 Anion Gap 13 BUN 33 H Creatinine 1.30 Estim Creat Clear Calc 45.67 Est GFR (MDRD) Af Amer 70 Est GFR (MDRD) Non-Af 57 L BUN/Creatinine Ratio 25.4 H Glucose 342 H Calcium 8.8 Magnesium 2.4 Total Bilirubin 1.50 H AST 28 ALT 34 Alkaline Phosphatase 116 Troponin I 0.018 B-Natriuretic Peptide Total Protein 7.6 Albumin 3.9 Globulin 3.7 Albumin/Globulin Ratio 1.1 - Rhythm Strip Rhythm Strip: Sinus Rhythm Rate: 90 Ectopy: PVC(s) - EKG Initial EKG Interpretation: Paced Prior: Unchanged - Medical Decision Making Patient presents with exertional shortness of breath, scant chest pain, and orthopnea. He was seen here 2 days ago. At that point, he had a relatively unremarkable work-up. He wanted to go home because he was afraid of being exposed to the coronavirus. He returns today. His BNP is still markedly elevated. EKG was obtained which does show tachycardia without acute ischemia. He is paced with a few PVCs. The patient has a markedly diminished ejection fraction 25%. He does have multiple reasons for his dyspnea. He has paralysis of the right diaphragm. He also has rather significant cardiac history. I do feel that the most prudent plan of care as he was discharged with home therapy, would be to admit him for diuresis and monitoring of his cardiac enzymes. Patient is comfortable with this plan of care. Impression 1. Exertional dyspnea 2. CHF ED Disposition - Plan for ED Patient: Referrals: Jcarlos Glasgow MD [Primary Care Provider] -
[2020-06-11] MEDS: Ondansetron 4 MG/2 ML Vial IV (09:39)
[2020-06-11 10:01] LABS: Absolute Lymphocyte Count 0.18 X10^3/uL (0.83-4.51); Absolute Neutrophil Count 8.6 X10^3/uL (2.0-7.7); Basophil# 0.02 X10^3/uL; Basophil% 0.2 % (0-1); Eosinophil# 0.01 X10^3/uL; Eosinophils% 0.1 % (0-5); Hematocrit 33.7 % (40-54); Hemoglobin 11.1 g/dL (13.0-16.5); Lymphocyte # 0.18 X10^3/ul (4.0); Mean Corp Hgb Conc 32.9 g/dL (32-36); Mean Corpuscular Hgb 32.5 pg (27.0-32.0); Mean Corpuscular Volume 98.5 fL (80-94); Mean Platelet Vol. 9.1 fl (6.2-12.0); Monocyte# 0.39 X10^3/uL; Monocyte% 4.2 % (0-10); NRBC Flagged by Analyzer 0 % (0-5); Neutrophil # 8.56 X10^3/uL (2.7-7.7); POSITIVE DIFFERENTIAL YES; Platelet Count 151 K/mm3 (150-450); RBC Distribution Width CV 14.1 % (11.6-14.6); RBC Distribution Width SD 47.5 fl (35.1-43.9); Red Blood Count 3.42 M/mm3 (4.6-6.2); White Blood Count 9.2 K/mm3 (4.4-11.0)
--- NOTE | 2020-06-11 10:05 | NURSING ---
CHEMISTRIES HEMOLIZED
[2020-06-11 10:09] LABS: Differential Indicated SCAN CRITERIA MET
[2020-06-11 10:16] LABS: BNP,B-Type NATRIURETIC PEPTIDE 1281.4 pg/mL (0-100)
[2020-06-11 11:08] LABS: Magnesium 2.4 mg/dL (1.6-2.6)
[2020-06-11 11:11] LABS: ALB/GLOB Ratio 1.1 RATIO (0.9-2.4); AST(SGOT) 28 U/L (15-37); Alanine Aminotransfer ALT/SGPT 34 U/L (16-61); Albumin, Serum 3.9 g/dL (3.2-5.0); Alkaline Phosphatase 116 U/L (45-117); Anion Gap 13 (5-15); BUN 33 mg/dL (7-18); BUN/Creat Ratio 25.4 RATIO (10-20); Calcium,Total 8.8 mg/dL (8.5-10.1); Chloride 100 mmol/L (98-107); EST Glomerular Filtration Rate 57 mL/min (>60); Est Glom Filt Rate - Afr Amer 70 mL/min (>60); Estimated Creatinine Clearance 45.67 ml/min; Globulin 3.7 g/dL (2.2-4.2); Glucose 342 mg/dL (74-106); Potassium 5.2 mmol/L (3.5-5.1); Protein, Total 7.6 g/dL (6.4-8.2); Sodium Level 134 mmol/L (136-145)
--- NOTE | 2020-06-11 12:12 | NURSING ---
DR DEVIN GAMEZ
--- NOTE | 2020-06-11 12:23 | NURSING ---
PCU DEVIN DYSPNEA, CHF OBS
--- NOTE | 2020-06-11 13:01 | HP.PCM_ITS ---
Problem List (1) Dyspnea Status: Acute (2) Decubitus ulcer of foot, stage 3 Status: Acute Qualifiers: (3) Infected ulcer of skin Status: Acute (4) Osteomyelitis of right foot Status: Acute (5) History of angioplasty of peripheral vessel Status: Acute (6) Ischemic cardiomyopathy Status: Acute (7) Biventricular implantable cardioverter-defibrillator (ICD) in situ Status: Chronic (8) 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 (9) ALL treated with BiPAP Status: Chronic Comment: With O2 2L (10) Presence of permanent cardiac pacemaker Status: Chronic Comment: 2006, 2012 gen change (11) History of coronary artery stent placement Status: Chronic Comment: 3.0 x 12 mm Rebel BMS to pD1 03/27/19 (12) Peripheral vascular disease due to secondary diabetes Status: Chronic (13) Coronary artery disease involving [place] coronary artery of [place] heart Status: Chronic Qualifiers: Comment: MAYS to LAD, SVG to PDA 10/2003; 3.0 x 12 mm Rebel BMS to pD1 03/27/19 (14) Diabetes mellitus type 2 with atherosclerosis of arteries of extremities Status: Chronic History of Present Illness Date of Admission: 06/11/20 Chief Complaint: dyspnea. vomiting The patient is a 74 year old M presents with shortness of breath, nausea and vomiting. Seen in ED on the . He did not want to be admitted at that time. Since then, his symptoms have persisted. In ED he was on room air. Pt with osteomyelitis of right 5th MTP. He was to see Drs. Glass and Blaze next week for further recommendations. He has been on oral antibiotics. [] Past Medical History Past Medical History (Chronic Problems): Chronic Problems (Last Reviewed 05/10/20 @ 15:[address] 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) 2012 gen change History of coronary artery stent placement (Chronic ~03/2019) 3.0 x 12 mm Rebel BMS to pD1 03/27/19 Peripheral vascular disease due to secondary diabetes (Chronic) Coronary artery disease involving [place] coronary artery of [place] heart (Chronic) MAYS to LAD, SVG to PDA 10/2003; 3.0 x 12 mm Rebel BMS to pD1 03/27/19 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) Medical History: Medical History (Last Reviewed 06/11/20 @ 13:[address] Huan Bradley, DO) Biventricular implantable cardioverter-defibrillator (ICD) in situ (Chronic) Z95.810 Diaphragm paralysis (Chronic) J98.6 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) G47.33 With O2 2L Peripheral vascular disease due to secondary diabetes (Chronic) E13.51 Coronary artery disease involving [place] coronary artery of [place] heart (Chronic) I25.10 MAYS to LAD, SVG to PDA 10/2003; 3.0 x 12 mm Rebel BMS to pD1 03/27/19 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) E11.59, I70.209 COPD (chronic obstructive pulmonary disease) J44.9 Glaucoma H40.9 Wears hearing aid in both ears Z97.4 Open wound of knee, leg, and ankle, complicated (Resolved) S81.009A, S81.809A, S91.009A Surgical wound dehiscence (Resolved) T81.31XA Allergies amiodarone Allergy (Severe, Verified 06/09/20 12:51) pulmonary fibrosis sotalol Allergy (Severe, Verified 06/09/20 12:51) intolerant levofloxacin [From Levaquin] Allergy (Verified 06/09/20 12:51) Pain in joints LEG CRAMPING gabapentin Adverse Reaction (Verified 06/09/20 12:51) Diarrhea latex Adverse Reaction (Verified 06/09/20 12:51) Rash Home Medications: Ambulatory Orders Medication Instructions Recorded Oxycodone HCl/Acetaminophen 1 - 2 tab PO Q4H PRN PRN 03/17/15 [Percocet 5/325] acetaminophen 500 mg tablet 1,000 - 3,000 mg PO TID PRN tab 08/05/19 levothyroxine 200 mcg tablet 200 mcg PO DAILY 08/05/19 omeprazole 40 mg capsule,delayed 40 mg PO DAILY 08/05/19 release prednisone 2.5 mg tablet 2.5 mg PO DAILY 08/05/19 metoprolol succinate 50 mg 50 mg PO DAILY #90 tab 10/13/19 tablet,extended release 24 hr clopidogrel 75 mg tablet 75 mg PO DAILY #90 tab 05/11/20 lisinopril 2.5 mg tablet 2.5 mg PO DAILY #90 tab 11/10/19 pravastatin 40 mg tablet 40 mg PO QHS #90 tab 11/10/19 aspirin 81 mg tablet,delayed 81 mg PO DAILY 12/17/19 release Cefdinir 2 tab PO DAILY 06/09/20 Insulin Glargine,Hum.rec.anlog 12.5 unit SQ BID 06/09/20 [Lantus] Insulin Regular, Human [Novolin R] See Protocol SC TID 06/09/20 Linezolid [Zyvox] 1 tab PO BID 06/09/20 Bumetanide 1 mg PO BID 06/11/20 Cefdinir 300 mg PO BID 06/11/20 Chlorthalidone 50 mg PO DAILY 06/11/20 Insulin Aspart [Insulin Aspart 100 unit SQ 06/11/20 Flexpen] Surgical History: Surgical History (Last Reviewed 06/11/20 @ 13:[address] Huan Bradley DO) History of angioplasty of peripheral vessel (Acute) Onset Date: ~05/04/20 Z98.62 Presence of permanent cardiac pacemaker (Chronic) Z95.0 2006, 2012 gen change History of coronary artery stent placement (Chronic) Onset Date: ~03/2019 Z95.5 3.0 x 12 mm Rebel BMS to pD1 03/27/19 History of amputation of toe Z89.429 All toes right foot History of coronary artery bypass graft Onset Date: ~2003 Z95.1 MAYS to LAD, SVG to PDA 10/2003 History of left below knee amputation Onset Date: ~2014 Z89.512 History of bilateral cataract extraction Z98.41, Z98.42 History of cholecystectomy Z90.49 History of endoscopy Z98.890 Surgical History: coronary bypass surgery Smoking Status: Former smoker - *Family History Maternal Family History: Family History (Last Reviewed 06/11/20 @ 13:[address] Huan Bradley DO) Sister Diabetes Mother Heart disease Father Diabetes Review of Systems Unable to obtain accurate/complete ROS d/t: Limited due to presbycusis. History obtained through his . VTE Information - Inpt Only VTE Present on Admission: No VTE Mechan Device Prophylaxis: None VTE Pharm Prophylaxis ordered?: Yes - Physical Exam Vitals/I&O's: Vital Signs Temp Pulse Resp BP Pulse Ox 36.1 C L 95 24 H 110/57 L 96 06/11/20 09:33 06/11/20 11:27 06/11/20 09:33 06/11/20 11:27 06/11/20 09:33 Oxygen Delivery Method Room Air Weight: 88.7 kg Body Mass Index (BMI) 31.5 General: Alert, No apparent distress HEENT: Atraumatic, Normocephalic Oral: Moist Mucosa, No Gingival or Mucosal Lesions/ Ulcerations Neck: No Nodes, Thyroid Normal Size and Texture Lungs: Clear to auscultation, Normal air movement, No rhonchi, No wheeze Cardiovascular: Regular rate, Regular Rhythm, Normal S1, Normal S2 Abdomen: Bowel Sounds Present, Soft, Non Tender, Non-Distended Extremities: No Calf Tenderness, Edema Skin: - - right lateral foot wound Musculoskeletal: No Tenderness to Palpation of Joints or Extremities, No Muscle Wasting Psych/Mental Status: Normal Affect, Appropriate Laboratory Results 06/11/20 09:50: WBC 9.2, RBC 3.42 L, Hgb 11.1 L, Hct 33.7 L, MCV 98.5 H, MCH 32.5 H, MCHC 32.9, RDW Std Deviation 47.5 H, RDW Coeff of Jac 14.1, Plt Count 151, MPV 9.1, Immature Gran % (Auto) 0.500, Neut % (Auto) 93.0 H, Lymph % (Auto) 2.0 L, [place] % (Auto) 4.2, Eos % (Auto) 0.1, Baso % (Auto) 0.2, Absolute Neuts (auto) 8.6 H, Absolute Lymphs (auto) 0.18 L, Nucleated RBC % 0 06/11/20 09:50: Sodium Cancelled, Potassium Cancelled, Chloride Cancelled, Carbon Dioxide Cancelled, Anion Gap Cancelled, BUN Cancelled, Creatinine Cancelled, Estim Creat Clear Calc Cancelled, Est GFR (MDRD) Af Amer Cancelled, Est GFR (MDRD) Non-Af Cancelled, BUN/Creatinine Ratio Cancelled, Glucose Cancelled, Calcium Cancelled, Total Bilirubin Cancelled, AST Cancelled, ALT Cancelled, Alkaline Phosphatase Cancelled, Troponin I Cancelled, Total Protein Cancelled, Albumin Cancelled, Globulin Cancelled, Albumin/Globulin Ratio Cancelled 06/11/20 09:50: B-Natriuretic Peptide 1281.4 H 06/11/20 10:12: Sodium 134 L, Potassium 5.2 H, Chloride 100, Carbon Dioxide 21.0, Anion Gap 13, BUN 33 H, Creatinine 1.30, Estim Creat Clear Calc 45.67, Est GFR (MDRD) Af Amer 70, Est GFR (MDRD) Non-Af 57 L, BUN/Creatinine Ratio 25.4 H, Glucose 342 H, Calcium 8.8, Total Bilirubin 1.50 H, AST 28, ALT 34, Alkaline Phosphatase 116, Troponin I 0.018, Total Protein 7.6, Albumin 3.9, Globulin 3.7, Albumin/Globulin Ratio 1.1 06/11/20 10:12: Magnesium 2.4 Clinical Impression(s) from Imaging Studies Chest X-Ray 06/11/20 09:30 IMPRESSION: Stable elevation of the right hemidiaphragm with right basilar scarring. Electronically Signed: Ramon Mariah, at 10:25 EST , Service support , Assessment/Plan All Active Problems (Last Reviewed 05/10/20 @ 15:[address] Jovana Singh MD) Decubitus ulcer of foot, stage 3 (Acute) Infected ulcer of skin (Acute) Osteomyelitis of right foot (Acute) Dyspnea (Acute) History of angioplasty of peripheral vessel (Acute ~05/04/20) Ischemic cardiomyopathy (Acute) Open wound of knee, leg, and ankle, complicated (Resolved) Surgical wound dehiscence (Resolved) 1. dyspnea * concern for cardiac equivalent: check troponin and stress * may be multifactorial: paralyzed hemidiaphragm, CAD, COPD * on room air * on aspirin 2. Right foot osteomyelitis * polymicrobial * was to have outpt eval with ID and podiatry. * start vanc and pip/tazo * ID and podiatry consult. 3. DM2 * glargine and SSI 4. VTE prophylaxis: LMWH 5.ACP: full code. Inpatient E&M: 41522 Init Hosp L3
--- NOTE | 2020-06-11 13:15 | EKG12_ITS ---
Test Reason : MORNING EKG Blood Pressure : / mmHG Vent. Rate : 075 BPM Atrial Rate : 075 BPM P-R Int : 214 ms QRS Dur : 146 ms QT Int : 442 ms P-R-T Axes : 084 -64 122 degrees QTc Int : 493 ms Atrial-sensed ventricular-paced rhythm with prolonged AV conduction with occasional Premature ventric ular complexes Abnormal ECG Confirmed by DEBORAH ELLSWORTH, ANGEL ([id number]), technical editor LEA ALDANA ([id number]) on 06/15/2020 12:42:02 PM Referred By: DEVIN Confirmed By:ANGEL CABRERA MD
--- NOTE | 2020-06-11 14:12 | PCS.PANDOC ---
PANDEMIC DOCUMENTATION INITIATED: Date: Time: 06/11/20 1994
--- NOTE | 2020-06-11 15:25 | CON.PCM_ITS ---
Problem List (1) Osteomyelitis of right foot Status: Acute Reason for Consult: osteo Consulted by: Dr. Bradley History of Present Illness: The patient is a 74 year old M with h/o pacer, L BKA, presented to ED with acute onset of n/v/d, not feeling well. Has been having issues with R lateral foot wound with some drainage and redness. PCP referred to wound center, has been there past 3 weeks. Initially started on flagyl, then changed a week later to linezolid and cefdinir based on swab results. Over past 2-3 weeks reports worsening cough, SOB, weakness, fatigue. Having some taste changes recently; even water tastes bad. Some fever. No aches. Came to ED 06/09, covid pcr neg, sent home. Last night had new n/v/d. Came back, admitted for R foot osteo on vanc/zosyn. Full ROS performed and neg except as noted above. recently with URI-type symptoms. No known covid exposures. - Medical History Past Medical History (Chronic Problems): Chronic Problems (Last Reviewed 06/11/20 @ 13:[address] Huan Bradley, DO) Biventricular implantable cardioverter-defibrillator (ICD) in situ (Chronic) 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) 2006, 2012 gen change History of coronary artery stent placement (Chronic ~03/2019) 3.0 x 12 mm Rebel BMS to pD1 03/27/19 Peripheral vascular disease due to secondary diabetes (Chronic) Coronary artery disease involving [place] coronary artery of [place] heart (Chronic) MAYS to LAD, SVG to PDA 10/2003; 3.0 x 12 mm Rebel BMS to pD1 03/27/19 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) Allergies/Adverse Reactions: Allergies amiodarone Allergy (Severe, Verified 06/09/20 12:51) pulmonary fibrosis sotalol Allergy (Severe, Verified 06/09/20 12:51) intolerant levofloxacin [From Levaquin] Allergy (Verified 06/09/20 12:51) Pain in joints LEG CRAMPING gabapentin Adverse Reaction (Verified 06/09/20 12:51) Diarrhea latex Adverse Reaction (Verified 06/09/20 12:51) Rash Home Medications: Ambulatory Orders Medication Instructions Recorded Oxycodone HCl/Acetaminophen 1 - 2 tab PO Q4H PRN PRN 03/17/15 [Percocet 5/325] acetaminophen 500 mg tablet 1,000 - 3,000 mg PO TID PRN tab 08/05/19 levothyroxine 200 mcg tablet 200 mcg PO DAILY 08/05/19 omeprazole 40 mg capsule,delayed 40 mg PO DAILY 08/05/19 release prednisone 2.5 mg tablet 2.5 mg PO DAILY 08/05/19 metoprolol succinate 50 mg 50 mg PO DAILY #90 tab 10/13/19 tablet,extended release 24 hr clopidogrel 75 mg tablet 75 mg PO DAILY #90 tab 11/10/19 lisinopril 2.5 mg tablet 2.5 mg PO DAILY #90 tab 11/10/19 pravastatin 40 mg tablet 40 mg PO QHS #90 tab 11/10/19 aspirin 81 mg tablet,delayed 81 mg PO DAILY 12/17/19 release Insulin Glargine,Hum.rec.anlog 15 unit SQ BID 06/09/20 [Lantus] Insulin Regular, Human [Novolin R] See Protocol SC QHS 06/09/20 Linezolid [Zyvox] 1 tab PO BID 06/09/20 Bumetanide 1 mg PO DAILY 06/11/20 Cefdinir 300 mg PO BID 06/11/20 Insulin Regular, Human [Novolin R] 10 units SC BREAKFAST 06/11/20 Insulin Regular, Human [Novolin R] 20 units SC DINNER 06/11/20 - Social History SMOKING STATUS:: Former smoker Vital Signs Temp Pulse Resp BP Pulse Ox 98.4 F 96 18 123/50 H 95 06/11/20 13:32 06/11/20 13:40 06/11/20 13:32 06/11/20 13:32 06/11/20 13:32 Oxygen Delivery Method Room Air Weight: 87.6 kg Body Mass Index (BMI) 31.0 Laboratory Tests Past 24 Hrs 06/11/20 06/11/20 06/11/20 09:50 09:50 09:50 WBC 9.2 RBC 3.42 L Hgb 11.1 L Hct 33.7 L MCV 98.5 H MCH 32.5 H MCHC 32.9 RDW Std Deviation 47.5 H RDW Coeff of Jac 14.1 Plt Count 151 MPV 9.1 Immature Gran % (Auto) 0.500 Neut % (Auto) 93.0 H Lymph % (Auto) 2.0 L [place] % (Auto) 4.2 Eos % (Auto) 0.1 Baso % (Auto) 0.2 Absolute Neuts (auto) 8.6 H Absolute Lymphs (auto) 0.18 L Nucleated RBC % 0 Sodium Cancelled Potassium Cancelled Chloride Cancelled Carbon Dioxide Cancelled Anion Gap Cancelled BUN Cancelled Creatinine Cancelled Estim Creat Clear Calc Cancelled Est GFR (MDRD) Af Amer Cancelled Est GFR (MDRD) Non-Af Cancelled BUN/Creatinine Ratio Cancelled Glucose Cancelled Calcium Cancelled Magnesium Total Bilirubin Cancelled AST Cancelled ALT Cancelled Alkaline Phosphatase Cancelled Troponin I Cancelled B-Natriuretic Peptide 1281.4 H Total Protein Cancelled Albumin Cancelled Globulin Cancelled Albumin/Globulin Ratio Cancelled 06/11/20 06/11/20 06/11/20 10:12 10:12 14:28 WBC RBC Hgb Hct MCV MCH MCHC RDW Std Deviation RDW Coeff of Jac Plt Count MPV Immature Gran % (Auto) Neut % (Auto) Lymph % (Auto) [place] % (Auto) Eos % (Auto) Baso % (Auto) Absolute Neuts (auto) Absolute Lymphs (auto) Nucleated RBC % Sodium 134 L Potassium 5.2 H Chloride 100 Carbon Dioxide 21.0 Anion Gap 13 BUN 33 H Creatinine 1.30 Estim Creat Clear Calc 45.67 Est GFR (MDRD) Af Amer 70 Est GFR (MDRD) Non-Af 57 L BUN/Creatinine Ratio 25.4 H Glucose 342 H Calcium 8.8 Magnesium 2.4 Total Bilirubin 1.50 H AST 28 ALT 34 Alkaline Phosphatase 116 Troponin I 0.018 0.024 B-Natriuretic Peptide Total Protein 7.6 Albumin 3.9 Globulin 3.7 Albumin/Globulin Ratio 1.1 - Other Studies Radiology: [] reviewed Other Studies: [] Route of nutrition/ use of supplements: [] Nutritional Intake: [] IV Site: [] Wills Catheter: [] - Physical Exam General: Alert, Oriented x3, Cooperative HEENT: Atraumatic, PERRLA, EOMI Neck: Supple, No Nodes Lungs: Clear to auscultation, Diminished Cardiovascular: Tachycardic Abdomen: Soft, Non Tender, Non-Distended Extremities: No edema Skin: Ulcer/ Wound - R lateral foot, mild purulence IV Site: Peripheral, without redness Musculoskeletal: No Tenderness to Palpation of Joints or Extremities Neurological: Cranial nerves II-XII grossly intact - Assessment/Plan Antibiotics: [] Assessment/Plan: [] Active and Suspected Problems (Last Reviewed 06/11/20 @ 13:[address] Huan Bradley, DO) Decubitus ulcer of foot, stage 3 (Acute) Infected ulcer of skin (Acute) Osteomyelitis of right foot (Acute) Dyspnea (Acute) History of angioplasty of peripheral vessel (Acute ~05/04/20) Ischemic cardiomyopathy (Acute) R foot osteo - seen on xray. Podiatry consulted. Will order wound cx. Cont empiric vanc/zosyn. Has been on linezolid/cefdinir; most recent wound cx with enterobacter, MR-CoNS x2, e faecalis, and corynebacteria. suspected covid - cough, SOB, fatigue, weakness, change in taste, and n/v/d; labs show significant lymphopenia, and recently with URI-type illness. Covid pcr neg 06/09, will repeat the test, start iso and remdesivir due to risk of worsening disease if this is recent onset. Has been having symptoms for about 3 weeks but hard to tell between what is cardiac vs infectious. With new n/v/d, inclined to treat as if acute infection. BNP is high, will check D- dimer. Will also get covid serology. Will follow, thank you. D/w nursing about placing in iso. D/w Dr. Bradley.
--- NOTE | 2020-06-11 15:29 | CON.PCM_ITS ---
Reason for Consult Date of Consultation: 06/11/20 History of Present Illness: The patient is a 74 year old M [] Patient is a 40-year diabetic with neuropathy and previous ulcerations. He also has significant other medical history. Who presents with a right foot wound as well as nausea vomiting diarrhea fevers change in taste. Patient is being worked up for further Covid 19. Patient had recent negative test but symptoms have persisted over the last couple weeks. Patient has had wound for over a month. 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 Patient sees Dr. Busch had had recent surgery for this. Patient also noted to have had a pacemaker replaced this week. Patient states that he is here mainly for the heart problem not for the foot problem. Patient denies any nausea fever vomiting chills chest pain shortness of breath. Patient has been seen at the wound care center for about a month seeing Luciana who has been doing Fibracol and was scheduled to see Dr. Teixeira on this week to discuss possible surgical needs. Patient was told that the x-ray showed bone infection. Patient is also well established with Dr. Glass. Past Medical History Past Medical History (Chronic Problems): Chronic Problems (Last Reviewed 06/11/20 @ 13:[address] 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) E11.59, I70.209 COPD (chronic obstructive pulmonary disease) J44.9 Glaucoma H40.9 Wears hearing aid in both ears Z97.4 Open wound of knee, leg, and ankle, complicated (Resolved) S81.009A, S81.809A, S91.009A Surgical wound dehiscence (Resolved) T81.31XA Allergies amiodarone Allergy (Severe, Verified 06/09/20 12:51) pulmonary fibrosis sotalol Allergy (Severe, Verified 06/09/20 12:51) intolerant levofloxacin [From Levaquin] Allergy (Verified 06/09/20 12:51) Pain in joints LEG CRAMPING gabapentin Adverse Reaction (Verified 06/09/20 12:51) Diarrhea latex Adverse Reaction (Verified 06/09/20 12:51) Rash Home Medications: Ambulatory Orders Medication Instructions Recorded Oxycodone HCl/Acetaminophen 1 - 2 tab PO Q4H PRN PRN 03/17/15 [Percocet 5/325] acetaminophen 500 mg tablet 1,000 - 3,000 mg PO TID PRN tab 08/05/19 levothyroxine 200 mcg tablet 200 mcg PO DAILY 08/05/19 omeprazole 40 mg capsule,delayed 40 mg PO DAILY 08/05/19 release prednisone 2.5 mg tablet 2.5 mg PO DAILY 08/05/19 metoprolol succinate 50 mg 50 mg PO DAILY #90 tab 10/13/19 tablet,extended release 24 hr clopidogrel 75 mg tablet 75 mg PO DAILY #90 tab 11/10/19 lisinopril 2.5 mg tablet 2.5 mg PO DAILY #90 tab 11/10/19 pravastatin 40 mg tablet 40 mg PO QHS #90 tab 11/10/19 aspirin 81 mg tablet,delayed 81 mg PO DAILY 12/17/19 release Insulin Glargine,Hum.rec.anlog 15 unit SQ BID 06/09/20 [Lantus] Insulin Regular, Human [Novolin R] See Protocol SC QHS 06/09/20 Linezolid [Zyvox] 1 tab PO BID 06/09/20 Bumetanide 1 mg PO DAILY 06/11/20 Cefdinir 300 mg PO BID 06/11/20 Insulin Regular, Human [Novolin R] 10 units SC BREAKFAST 06/11/20 Insulin Regular, Human [Novolin R] 20 units SC DINNER 06/11/20 Surgical History: Surgical History (Last Reviewed 06/11/20 @ 13:[address] Huan Bradley DO) History of angioplasty of peripheral vessel (Acute) Onset Date: ~05/04/20 Z98.62 Presence of permanent cardiac pacemaker (Chronic) Z95.0 2006, 2012 gen change History of coronary artery stent placement (Chronic) Onset Date: ~03/2019 Z95.5 3.0 x 12 mm Rebel BMS to pD1 03/27/19 History of amputation of toe Z89.429 All toes right foot History of coronary artery bypass graft Onset Date: ~2003 Z95.1 MAYS to LAD, SVG to PDA 10/2003 History of left below knee amputation Onset Date: ~2014 Z89.512 History of bilateral cataract extraction Z98.41, Z98.42 History of cholecystectomy Z90.49 History of endoscopy Z98.890 Surgical History: coronary bypass surgery Smoking Status: Former smoker - *Family History Maternal Family History: Family History (Last Reviewed 06/11/20 @ 13:[address] Huan Bradley DO) Sister Diabetes Mother Heart disease Father Diabetes Review of Systems Constitutional: Denies: Chills, Fever Respiratory: Reports: Cough. Denies: Shortness of Breath Gastrointestinal: Denies: Nausea, Vomiting Musculoskeletal: Denies: Foot Pain Skin: Reports: Wounds - Right foot, - - TMA right, BKA left lower extremities Neurological: Reports: Numbness, Tingling Patient Problems: Active and Suspected Problems (Last Reviewed 06/11/20 @ 13:[address] Huan Bradley DO) Decubitus ulcer of foot, stage 3 (Acute) Infected ulcer of skin (Acute) Osteomyelitis of right foot (Acute) Dyspnea (Acute) History of angioplasty of peripheral vessel (Acute ~05/04/20) Ischemic cardiomyopathy (Acute) - Physical Exam Vitals/I&O's: Vital Signs Temp Pulse Resp BP Pulse Ox 98.4 F 96 18 123/50 H 95 06/11/20 13:32 06/11/20 13:40 06/11/20 13:32 06/11/20 13:32 06/11/20 13:32 Oxygen Delivery Method Room Air Weight: 87.6 kg Body Mass Index (BMI) 31.0 General: Alert, Oriented x3 HEENT: Atraumatic Extremities: No clubbing, No cyanosis, Capillary Refill Less than 3 Seconds, No Calf Tenderness, Diminished Peripheral Pulses, Edema Skin: Ulcer/ Wound - Right foot lateral ulceration with fibrinous base and slough, probes to bone, measures 2.4 x 2.2 x 0.8 cm, mild surrounding edema no erythema no purulence Musculoskeletal: No Tenderness to Palpation of Joints or Extremities Neurological: - - Absent light touch sensation Psych/Mental Status: Normal Affect, Appropriate, Alert and oriented to time, place, person, mood and affect Laboratory Results 06/11/20 09:50: WBC 9.2, RBC 3.42 L, Hgb 11.1 L, Hct 33.7 L, MCV 98.5 H, MCH 32.5 H, MCHC 32.9, RDW Std Deviation 47.5 H, RDW Coeff of Jac 14.1, Plt Count 151, MPV 9.1, Immature Gran % (Auto) 0.500, Neut % (Auto) 93.0 H, Lymph % (Auto) 2.0 L, Cross % (Auto) 4.2, Eos % (Auto) 0.1, Baso % (Auto) 0.2, Absolute Neuts (auto) 8.6 H, Absolute Lymphs (auto) 0.18 L, Nucleated RBC % 0 06/11/20 09:50: Sodium Cancelled, Potassium Cancelled, Chloride Cancelled, Carbon Dioxide Cancelled, Anion Gap Cancelled, BUN Cancelled, Creatinine Cancelled, Estim Creat Clear Calc Cancelled, Est GFR (MDRD) Af Amer Cancelled, Est GFR (MDRD) Non-Af Cancelled, BUN/Creatinine Ratio Cancelled, Glucose Cancelled, Calcium Cancelled, Total Bilirubin Cancelled, AST Cancelled, ALT Cancelled, Alkaline Phosphatase Cancelled, Troponin I Cancelled, Total Protein Cancelled, Albumin Cancelled, Globulin Cancelled, Albumin/Globulin Ratio Cancelled 06/11/20 09:50: B-Natriuretic Peptide 1281.4 H 06/11/20 10:12: Sodium 134 L, Potassium 5.2 H, Chloride 100, Carbon Dioxide 21.0, Anion Gap 13, BUN 33 H, Creatinine 1.30, Estim Creat Clear Calc 45.67, Est GFR (MDRD) Af Amer 70, Est GFR (MDRD) Non-Af 57 L, BUN/Creatinine Ratio 25.4 H, Glucose 342 H, Calcium 8.8, Total Bilirubin 1.50 H, AST 28, ALT 34, Alkaline Phosphatase 116, Troponin I 0.018, Total Protein 7.6, Albumin 3.9, Globulin 3.7, Albumin/Globulin Ratio 1.1 06/11/20 10:12: Magnesium 2.4 06/11/20 14:28: Troponin I 0.024 Current Medications Acetaminophen (Acetaminophen 500 Mg Tablet) 1,000 mg PO TID PRN PRN Reason: PAIN OR TEMP Aspirin (Aspirin E.C. 81 Mg Tablet) 81 mg PO DAILY@0800 [facility] Bumetanide (Bumetanide 0.5 Mg Tablet) 1 mg PO BIDLX [facility] Chlorthalidone (Chlorthalidone 50 Mg Tablet) 50 mg PO DAILY [facility] Clopidogrel Bisulfate (Clopidogrel Bisulfate 75 Mg Tablet) 75 mg PO DAILY [facility] Dextrose (Dextrose 50%-Water 25 Gm/50 Ml Disp.Syrin) 0 gm IV X1 PRN; Protocol PRN Reason: Hypoglycemia Enoxaparin Sodium (Enoxaparin 40 Mg/0.4 Ml Syringe) 40 mg SC DAILY [facility] Glucagon (Glucagon 1 Mg/Ml Syringe) 1 mg IM .X1 PRN PRN Reason: Hypoglycemia Piperacillin Sod/Tazobactam (Sod 3.375 gm/ Sodium Chloride) 50 mls @ 12.5 mls/hr IV Q8 [facility] Vancomycin IV Pharmacy to Dose (1 ea/ Sodium Chloride) 500 mls @ 250 mls/hr IV X1 PRN; Protocol PRN Reason: Rx to Dose Vancomycin HCl 2,000 mg/ (Sodium Chloride) 540 mls @ 250 mls/hr IV X1 ONE Stop: 06/11/20 16:39 Remdesivir 100 mg/ Sodium (Chloride) 250 mls @ 125 mls/hr IV DAILY [facility]; Protocol Stop: 06/15/20 11:59 Remdesivir 200 mg/ Sodium (Chloride) 250 mls @ 125 mls/hr IV X1 ONE; Protocol Stop: 06/11/20 17:20 Influenza Virus Vaccine Quadrival (Influenza Vaccine (6mos+)/Pf 0.5 Ml Syringe) 0.5 ml IM .ONCE ONE Stop: 06/12/20 10:01 Insulin Glargine (Insulin Glargine 100 Units/Ml Pen) 15 units SC BID [facility] Insulin Human Lispro (Insulin Lispro 100 Unit/Ml Insuln.Pen) 0 unit SC TIDAC [facility]; Protocol Insulin Human Lispro (Insulin Lispro 100 Unit/Ml Insuln.Pen) 10 unit SC BREAKFAST [facility] Insulin Human Lispro (Insulin Lispro 100 Unit/Ml Insuln.Pen) 20 unit SC DINNER [facility] Lisinopril (Lisinopril 2.5 Mg Tablet) 2.5 mg PO DAILY [facility] Metoprolol Succinate (Metoprolol(Xl)Succ 50 Mg Tablet) 50 mg PO DAILY [facility] Ondansetron HCl (Ondansetron 4 Mg/2 Ml Vial) 4 mg IV Q8H PRN PRN PRN Reason: NAUSEA/VOMITING Oxycodone HCl (Oxycodone 5 Mg Tablet) 5 mg PO Q4H PRN PRN PRN Reason: pain Pantoprazole Sodium (Pantoprazole Sodium 40 Mg Tablet) 40 mg PO DAILY [facility] Pravastatin Sodium (Pravastatin 40 Mg Tablet) 40 mg PO QHS [facility] Prednisone (Prednisone 5 Mg Tablet) 2.5 mg PO DAILY@0800 [facility] Sodium Chloride (0.9% Saline Lock 10 Ml Syringe) 10 - 40 ml IV UD PRN PRN Reason: SALINE FLUSH Assessment/Plan All Active Problems (Last Reviewed 06/11/20 @ 13:[address] Huan Bradley, DO) Decubitus ulcer of foot, stage 3 (Acute) Infected ulcer of skin (Acute) Osteomyelitis of right foot (Acute) Dyspnea (Acute) History of angioplasty of peripheral vessel (Acute ~05/04/20) Ischemic cardiomyopathy (Acute) Open wound of knee, leg, and ankle, complicated (Resolved) Surgical wound dehiscence (Resolved) Right foot ulcer Suspected osteomyelitis right fifth metatarsal Diabetes with neuropathy BKA left lower extremity TMA right lower extremity Patient seen and examined at bedside. Patient is in Covid precautions Patient has been seen in the wound care center with suspected osteomyelitis of the right fifth digit and was being referred to podiatry next week for possible surgical work-up Patient has significant history of vascular disease and has been seen by Dr. Busch with multiple surgeries. Patient had LEAS done on 04/08/2020 showing No flow noted in segments peroneal and posterior tibial on right leg. Suspect femoral occlusive disease as goes from triphasic flow proximal to monophasic flow in popliteal artery. Patient had x-rays obtained 06/02/2020 of the right foot showing erosion of the lateral aspect of the amputated fifth metatarsal, suspected osteomyelitis. Patient has a pacemaker and will be unable to obtain an MRI There is a high suspicion of osteomyelitis Cultures were obtained bedside of the wound We will follow culture results Ordered ESR and CRP Blood cell count is 9.2 Dressing was changed today with silver alginate, 4 x 4's, Kerlix, Jem Continue daily dressing changes Patient had pacemaker procedure done 2 days ago with Covid negative test prior to. Patient is likely going to need surgical intervention but will need to await new Covid results prior. Possible surgery Sunday or Sunday Follow ID recommendations Podiatry will continue to follow thank you for the consult
[2020-06-11] MEDS: 0.9% Saline Lock 10 ML Syringe IV (15:46)
[2020-06-11 16:03] LABS: D-Dimer Quantitative (DVT/PE) 1.01 FEU/ug/m (0.27-0.49)
[2020-06-11] MEDS: Insulin Lispro 100 UNIT/ML INSULN.PEN 20 UNIT SC (17:36)
[2020-06-11] MEDS: Bumetanide 0.5 MG Tablet 1 MG PO (17:37)
[2020-06-11 17:55] LABS: Probe Check PASS; Specimen Processing Control PASS
[2020-06-11 18:34] LABS: Erythrocyte Sedimentation Rate 17 mm/hr (0-20)
[2020-06-11 20:16] LABS: Bedside Glucose 237 mg/dL (70-110)
[2020-06-11] MEDS: Pravastatin 40 MG Tablet PO (21:42)
[2020-06-11 22:06] LABS: Bedside Glucose 213 mg/dL (70-110)
--- NOTE | 2020-06-11 23:03 | NURSING ---
RN SPOKE TO PATIENT ABOUT LIMITING WATER DUE TO CONGESTIVE HEART FAILURE. PATIENT NON-COMPLIANT WITH IT, EXPLAINED COULD BE THE REASON PATIENT IS SOB AND SHOULD TRY TO LIMIT AND KEEP TRACK OF WHAT HE IS DRINKING, PATIENT FREQUENTLY IS ASKING FOR WATER. EDUCATED WAS GIVEN ABOUT THIS BUT PATIENT NOT VERY RECEPTIVE.
[2020-06-12] VITALS (11 sets, daily range): BP systolic 101–120; BP diastolic 47–65; PULSE 62–115; RESP 12–18; TEMP 36.1–37; O2SAT 92–98
--- NOTE | 2020-06-12 00:21 | CPS ---
pt wears bipap at home at night for ALL , didn't know home settings. pt was placed on 12/02 with 30% fio2 to coincide with his 2L bled in as at home
[2020-06-12] MEDS: 0.9% Saline Lock 10 ML Syringe IV ×4 (03:51→11:50)
[2020-06-12] MEDS: Clopidogrel Bisulfate 75 MG Tablet PO (06:06)
[2020-06-12] MEDS: Lisinopril 2.5 MG Tablet PO (06:06)
[2020-06-12] MEDS: Aspirin E.C. 81 MG Tablet PO (06:06)
[2020-06-12] MEDS: Ondansetron 4 MG/2 ML Vial IV (06:23)
[2020-06-12 06:51] LABS: Bedside Glucose 219 mg/dL (70-110)
[2020-06-12 07:38] LABS: Hematocrit 32.2 % (40-54); Hemoglobin 10.4 g/dL (13.0-16.5); Mean Corp Hgb Conc 32.3 g/dL (32-36); Mean Corpuscular Hgb 31.9 pg (27.0-32.0); Mean Corpuscular Volume 98.8 fL (80-94); Mean Platelet Vol. 8.6 fl (6.2-12.0); Platelet Count 127 K/mm3 (150-450); RBC Distribution Width CV 14.3 % (11.6-14.6); RBC Distribution Width SD 48.9 fl (35.1-43.9); Red Blood Count 3.26 M/mm3 (4.6-6.2); White Blood Count 8.3 K/mm3 (4.4-11.0)
[2020-06-12 07:54] LABS: ALB/GLOB Ratio 1.1 RATIO (0.9-2.4); AST(SGOT) 22 U/L (15-37); Alanine Aminotransfer ALT/SGPT 33 U/L (16-61); Albumin, Serum 3.6 g/dL (3.2-5.0); Alkaline Phosphatase 106 U/L (45-117); Anion Gap 9 (5-15); BUN 37 mg/dL (7-18); BUN/Creat Ratio 27.6 RATIO (10-20); Calcium,Total 8.4 mg/dL (8.5-10.1); Chloride 100 mmol/L (98-107); Creatinine, Serum 1.34 mg/dL (0.70-1.30); EST Glomerular Filtration Rate 55 mL/min (>60); Est Glom Filt Rate - Afr Amer 67 mL/min (>60); Estimated Creatinine Clearance 44.31 ml/min; Globulin 3.4 g/dL (2.2-4.2); Glucose 251 mg/dL (74-106); Potassium 4.3 mmol/L (3.5-5.1); Sodium Level 134 mmol/L (136-145)
[2020-06-12 07:58] LABS: SARS-COV-2 TOTAL ABS Nonreactive (Nonreactive)
--- NOTE | 2020-06-12 09:06 | PN_ITS ---
Patient Problems: Active and Suspected Problems (Last Reviewed 06/11/20 @ 13:[address] Huan Bradley, DO) Decubitus ulcer of foot, stage 3 (Acute) Infected ulcer of skin (Acute) Osteomyelitis of right foot (Acute) Dyspnea (Acute) History of angioplasty of peripheral vessel (Acute ~05/04/20) Ischemic cardiomyopathy (Acute) - Physical Exam Vitals/I&O's: Vital Signs Temp Pulse Resp BP Pulse Ox 97.8 F 115 H 18 120/65 93 06/12/20 03:58 06/12/20 07:40 06/12/20 03:58 06/12/20 03:58 06/12/20 03:58 Oxygen Delivery Method Room Air Weight: 87.6 kg Body Mass Index (BMI) 31.0 Intake and Output for Last 24 Hours 06/10/20 06/11/20 06/12/20 23:59 23:59 23:59 Intake Total 1257.08 / 1257.08 459.42 / 459.42 Output Total 700 / 700 450 / 450 Balance 557.08 / 557.08 9.42 / 9.42 General: Alert, Oriented x3 HEENT: Atraumatic Extremities: No clubbing, No cyanosis, Capillary Refill Less than 3 Seconds, No Calf Tenderness, Diminished Peripheral Pulses, Edema Skin: Ulcer/ Wound - right lateral foot ulceration to bone, fibrous base, no malodor, mild surrounding erythema, no purulence, serous draiange Musculoskeletal: Muscle Wasting, - - right TMA, left BKA Neurological: - - absent epicritic sensation Psych/Mental Status: Normal Affect, Appropriate, Alert and oriented to time, place, person, mood and affect Laboratory Results 06/11/20 09:50: WBC 9.2, RBC 3.42 L, Hgb 11.1 L, Hct 33.7 L, MCV 98.5 H, MCH 32.5 H, MCHC 32.9, RDW Std Deviation 47.5 H, RDW Coeff of Jac 14.1, Plt Count 151, MPV 9.1, Immature Gran % (Auto) 0.500, Neut % (Auto) 93.0 H, Lymph % (Auto) 2.0 L, [place] % (Auto) 4.2, Eos % (Auto) 0.1, Baso % (Auto) 0.2, Absolute Neuts (auto) 8.6 H, Absolute Lymphs (auto) 0.18 L, Nucleated RBC % 0 06/11/20 09:50: Sodium Cancelled, Potassium Cancelled, Chloride Cancelled, Carbon Dioxide Cancelled, Anion Gap Cancelled, BUN Cancelled, Creatinine Cancelled, Estim Creat Clear Calc Cancelled, Est GFR (MDRD) Af Amer Cancelled, Est GFR (MDRD) Non-Af Cancelled, BUN/Creatinine Ratio Cancelled, Glucose Cancelled, Calcium Cancelled, Total Bilirubin Cancelled, AST Cancelled, ALT Cancelled, Alkaline Phosphatase Cancelled, Troponin I Cancelled, Total Protein Cancelled, Albumin Cancelled, Globulin Cancelled, Albumin/Globulin Ratio Cancelled 06/11/20 09:50: B-Natriuretic Peptide 1281.4 H 06/11/20 09:50: ESR 17 06/11/20 09:50: D-Dimer Quant (PE/DVT) 1.01 H* 06/11/20 09:50: SARS Serology Nonreactive 06/11/20 10:12: Sodium 134 L, Potassium 5.2 H, Chloride 100, Carbon Dioxide 21.0, Anion Gap 13, BUN 33 H, Creatinine 1.30, Estim Creat Clear Calc 45.67, Est GFR (MDRD) Af Amer 70, Est GFR (MDRD) Non-Af 57 L, BUN/Creatinine Ratio 25.4 H, Glucose 342 H, Calcium 8.8, Total Bilirubin 1.50 H, AST 28, ALT 34, Alkaline Phosphatase 116, Troponin I 0.018, Total Protein 7.6, Albumin 3.9, Globulin 3.7, Albumin/Globulin Ratio 1.1 06/11/20 10:12: Magnesium 2.4 06/11/20 14:28: Troponin I 0.024 06/11/20 15:29: COVID-19 (RASHID) Negative 06/11/20 16:09: Troponin I 0.033, C-React Prot Ext Range 27.90 H 06/11/20 17:31: POC Glucose 237 H 06/11/20 21:41: POC Glucose 213 H 06/12/20 06:11: POC Glucose 219 H 06/12/20 07:10: WBC 8.3, RBC 3.26 L, Hgb 10.4 L, Hct 32.2 L, MCV 98.8 H, MCH 31.9, MCHC 32.3, RDW Std Deviation 48.9 H, RDW Coeff of Jac 14.3, Plt Count 127 L, MPV 8.6 06/12/20 07:10: Sodium 134 L, Potassium 4.3, Chloride 100, Carbon Dioxide 25.0, Anion Gap 9, BUN 37 H, Creatinine 1.34 H, Estim Creat Clear Calc 44.31, Est GFR (MDRD) Af Amer 67, Est GFR (MDRD) Non-Af 55 L, BUN/Creatinine Ratio 27.6 H, Glucose 251 H, Calcium 8.4 L, Total Bilirubin 1.40 H, AST 22, ALT 33, Alkaline Phosphatase 106, Total Protein 7.0, Albumin 3.6, Globulin 3.4, Albumin/Globulin Ratio 1.1 Current Medications Acetaminophen (Acetaminophen 500 Mg Tablet) 1,000 mg PO TID PRN PRN Reason: PAIN OR TEMP Aspirin (Aspirin E.C. 81 Mg Tablet) 81 mg PO DAILY@0800 [facility] Last Admin: 06/12/20 06:06 Dose: 81 mg Documented by: Bumetanide (Bumetanide 0.5 Mg Tablet) 1 mg PO BIDLX [facility] Last Admin: 06/11/20 17:37 Dose: 1 mg Documented by: Chlorthalidone (Chlorthalidone 50 Mg Tablet) 50 mg PO DAILY [facility] Clopidogrel Bisulfate (Clopidogrel Bisulfate 75 Mg Tablet) 75 mg PO DAILY [facility] Last Admin: 06/12/20 06:06 Dose: 75 mg Documented by: Dextrose (Dextrose 50%-Water 25 Gm/50 Ml Disp.Syrin) 0 gm IV X1 PRN; Protocol PRN Reason: Hypoglycemia Enoxaparin Sodium (Enoxaparin 40 Mg/0.4 Ml Syringe) 40 mg SC DAILY [facility] Glucagon (Glucagon 1 Mg/Ml Syringe) 1 mg IM .X1 PRN PRN Reason: Hypoglycemia Piperacillin Sod/Tazobactam (Sod 3.375 gm/ Sodium Chloride) 50 mls @ 12.5 mls/hr IV Q8 [facility] Last Admin: 06/12/20 06:06 Dose: 12.5 mls/hr Documented by: Vancomycin IV Pharmacy to Dose (1 ea/ Sodium Chloride) 500 mls @ 250 mls/hr IV X1 PRN; Protocol PRN Reason: Rx to Dose Vancomycin HCl 750 mg/ Sodium (Chloride) 265 mls @ 250 mls/hr IV Q12H [facility] Last Infusion: 06/12/20 04:58 Dose: Infused Documented by: Sodium Chloride () 250 mls @ 15 mls/hr IV .[id number] PRN PRN Reason: Saline Flush Last Infusion: 06/12/20 06:06 Dose: 0 mls/hr Documented by: Sodium Chloride () 250 mls @ 15 mls/hr IV .[id number] PRN PRN Reason: Additional IVPB Infusion Last Infusion: 06/12/20 04:09 Dose: 0 mls/hr Documented by: Influenza Virus Vaccine Quadrival (Influenza Vaccine (6mos+)/Pf 0.5 Ml Syringe) 0.5 ml IM .ONCE ONE Stop: 06/12/20 10:01 Insulin Glargine (Insulin Glargine 100 Units/Ml Pen) 15 units SC BID [facility] Last Admin: 06/11/20 21:42 Dose: 15 u Documented by: Insulin Human Lispro (Insulin Lispro 100 Unit/Ml Insuln.Pen) 0 unit SC TIDAC [facility]; Protocol Last Admin: 06/12/20 06:08 Dose: Not Given Documented by: Insulin Human Lispro (Insulin Lispro 100 Unit/Ml Insuln.Pen) 10 unit SC BREAKFAST [facility] Insulin Human Lispro (Insulin Lispro 100 Unit/Ml Insuln.Pen) 20 unit SC DINNER [facility] Last Admin: 06/11/20 17:36 Dose: 20 u Documented by: Lisinopril (Lisinopril 2.5 Mg Tablet) 2.5 mg PO DAILY [facility] Last Admin: 06/12/20 06:06 Dose: 2.5 mg Documented by: Metoprolol Succinate (Metoprolol(Xl)Succ 50 Mg Tablet) 50 mg PO DAILY [facility] Ondansetron HCl (Ondansetron 4 Mg/2 Ml Vial) 4 mg IV Q8H PRN PRN PRN Reason: NAUSEA/VOMITING Last Admin: 06/12/20 06:23 Dose: 4 mg Documented by: Oxycodone HCl (Oxycodone 5 Mg Tablet) 5 mg PO Q4H PRN PRN PRN Reason: pain Pantoprazole Sodium (Pantoprazole Sodium 40 Mg Tablet) 40 mg PO DAILY [facility] Pravastatin Sodium (Pravastatin 40 Mg Tablet) 40 mg PO QHS [facility] Last Admin: 06/11/20 21:42 Dose: 40 mg Documented by: Prednisone (Prednisone 5 Mg Tablet) 2.5 mg PO DAILY@0800 [facility] Sodium Chloride (0.9% Saline Lock 10 Ml Syringe) 10 - 40 ml IV UD PRN PRN Reason: SALINE FLUSH Last Admin: 06/12/20 06:23 Dose: 10 ml Documented by: Medical Necessity - Tobacco Use Smoking Status: Former smoker Assessment/Plan All Active Problems (Last Reviewed 06/11/20 @ 13:[address] Huan Bradley DO) Decubitus ulcer of foot, stage 3 (Acute) Infected ulcer of skin (Acute) Osteomyelitis of right foot (Acute) Dyspnea (Acute) History of angioplasty of peripheral vessel (Acute ~05/04/20) Ischemic cardiomyopathy (Acute) Open wound of knee, leg, and ankle, complicated (Resolved) Surgical wound dehiscence (Resolved) Right foot ulcer Suspected osteomyelitis right fifth metatarsal Diabetes with neuropathy BKA left lower extremity TMA right lower extremity peripheral vascular disease Significant cardio history Patient seen and examined at bedside. Patient tested negative for COVID. Patient is experiencing nausea and vomiting. Patient admitted for dyspnea and foot ulcer D dimer 1.01 Patient has been seen in the wound care center with suspected osteomyelitis of the right fifth digit and was being referred to podiatry next week for possible surgical work-up Patient has significant history of vascular disease and has been seen by Dr. Busch with multiple surgeries. Patient had LEAS done on 04/08/2020 showing No flow noted in segments peroneal and posterior tibial on right leg. Suspect femoral occlusive disease as goes from triphasic flow proximal to monophasic flow in popliteal artery. Patient had x-rays obtained 06/02/2020 of the right foot showing erosion of the lateral aspect of the amputated fifth metatarsal, suspected osteomyelitis. Patient has a pacemaker and will be unable to obtain an MRI There is a high suspicion of osteomyelitis culture results pending ESR 17 and CRP 27, WBC 8.3 Dressing was changed today with silver alginate, 4 x 4's, Kerlix, Jem Continue daily dressing changes Patient had pacemaker procedure done 2 days ago with Covid negative test prior to. Patient is likely going to need surgical intervention but will need to await medical clearance. Patient was unable to get stress test today due to N/V. Will do stress test Sunday. Due to significant heart disease will await results prior to any podiatry intervention. 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 All questions were answered. Will await medical stability and clearance Follow ID recommendations Podiatry will continue to follow
--- NOTE | 2020-06-12 09:28 | CASEMGMT ---
RN CM Note: Intro role of CM to patient in room. He is not feeling well and unable to participate. He requested I call his . Attempted call x 2, however no answer and voice mailbox is full. Melissa GOTTLIEB RN ACM
[2020-06-12] MEDS: Enoxaparin 40 MG/0.4 ML Syringe SC (10:08)
[2020-06-12] MEDS: Bumetanide 0.5 MG Tablet 1 MG PO ×2 (10:08→16:44)
[2020-06-12] MEDS: Chlorthalidone 50 MG Tablet PO (10:08)
[2020-06-12] MEDS: predniSONE 5 MG Tablet 2.5 MG PO (10:09)
[2020-06-12] MEDS: Metoprolol(XL)Succ 50 MG Tablet PO (10:12)
[2020-06-12] MEDS: Pantoprazole Sodium 40 MG Tablet PO (10:12)
[2020-06-12] MEDS: oxyCODONE 5 MG Tablet PO (11:43)
[2020-06-12] MEDS: Insulin Lispro 100 UNIT/ML INSULN.PEN SC ×2 (12:04→16:42)
[2020-06-12 12:25] LABS: Bedside Glucose 267 mg/dL (70-110)
--- NOTE | 2020-06-12 14:12 | PN_ITS ---
Patient Problems: Active and Suspected Problems (Last Reviewed 06/11/20 @ 13:[address] Huan Bradley, DO) Decubitus ulcer of foot, stage 3 (Acute) Infected ulcer of skin (Acute) Osteomyelitis of right foot (Acute) Dyspnea (Acute) History of angioplasty of peripheral vessel (Acute ~05/04/20) Ischemic cardiomyopathy (Acute) Reason for Visit: dyspnea Subjective: Vomiting today. Vitals/I&O's: Vital Signs Temp Pulse Resp BP Pulse Ox 37.0 C 106 H 16 105/47 L 94 06/12/20 12:13 06/12/20 14:05 06/12/20 12:13 06/12/20 12:13 06/12/20 12:13 Oxygen Delivery Method Room Air Weight: 87.6 kg Body Mass Index (BMI) 31.0 Intake and Output for Last 24 Hours 06/10/20 06/11/20 06/12/20 23:59 23:59 23:59 Intake Total 1257.08 / 1257.08 509.42 / 509.42 Output Total 700 / 700 450 / 450 Balance 557.08 / 557.08 59.42 / 59.42 General: Alert, - - [place]TH[place]AY. up at side of bag with emesis bag in his hands with liquid emesis. HEENT: Atraumatic, Normocephalic Oral: Moist Mucosa, No Gingival or Mucosal Lesions/ Ulcerations Neck: No Nodes, Thyroid Normal Size and Texture Lungs: Clear to auscultation, Normal air movement, No rhonchi, No wheeze Cardiovascular: Regular rate, Regular Rhythm, Normal S1, Normal S2, No murmurs Abdomen: Bowel Sounds Present, Soft, Non Tender, Non-Distended, No Hepato-splenomegaly Extremities: No edema, No Calf Tenderness Skin: No rashes, No breakdown Psych/Mental Status: Flat Affect Microbiology Past 72 Hours 06/11/20 15:45 Discharge - Open/Non-Healing Wound Gram Stain - Final Laboratory Results 06/11/20 09:50: ESR 17 06/11/20 09:50: D-Dimer Quant (PE/DVT) 1.01 H* 06/11/20 09:50: SARS Serology Nonreactive 06/11/20 14:28: Troponin I 0.024 06/11/20 15:29: COVID-19 (RASHID) Negative 06/11/20 16:09: Troponin I 0.033, C-React Prot Ext Range 27.90 H 06/11/20 17:31: POC Glucose 237 H 06/11/20 21:41: POC Glucose 213 H 06/12/20 06:11: POC Glucose 219 H 06/12/20 07:10: WBC 8.3, RBC 3.26 L, Hgb 10.4 L, Hct 32.2 L, MCV 98.8 H, MCH 31.9, MCHC 32.3, RDW Std Deviation 48.9 H, RDW Coeff of Jac 14.3, Plt Count 127 L, MPV 8.6 06/12/20 07:10: Sodium 134 L, Potassium 4.3, Chloride 100, Carbon Dioxide 25.0, Anion Gap 9, BUN 37 H, Creatinine 1.34 H, Estim Creat Clear Calc 44.31, Est GFR (MDRD) Af Amer 67, Est GFR (MDRD) Non-Af 55 L, BUN/Creatinine Ratio 27.6 H, Glucose 251 H, Calcium 8.4 L, Total Bilirubin 1.40 H, AST 22, ALT 33, Alkaline Phosphatase 106, Total Protein 7.0, Albumin 3.6, Globulin 3.4, Albumin/Globulin Ratio 1.1 06/12/20 12:00: POC Glucose 267 H Current Medications Acetaminophen (Acetaminophen 500 Mg Tablet) 1,000 mg PO TID PRN PRN Reason: PAIN OR TEMP Aspirin (Aspirin E.C. 81 Mg Tablet) 81 mg PO DAILY@0800 [facility] Last Admin: 06/12/20 06:06 Dose: 81 mg Documented by: Bumetanide (Bumetanide 0.5 Mg Tablet) 1 mg PO BIDLX [facility] Last Admin: 06/12/20 10:08 Dose: 1 mg Documented by: Chlorthalidone (Chlorthalidone 50 Mg Tablet) 50 mg PO DAILY [facility] Last Admin: 06/12/20 10:08 Dose: 50 mg Documented by: Clopidogrel Bisulfate (Clopidogrel Bisulfate 75 Mg Tablet) 75 mg PO DAILY [facility] Last Admin: 06/12/20 06:06 Dose: 75 mg Documented by: Dextrose (Dextrose 50%-Water 25 Gm/50 Ml Disp.Syrin) 0 gm IV X1 PRN; Protocol PRN Reason: Hypoglycemia Enoxaparin Sodium (Enoxaparin 40 Mg/0.4 Ml Syringe) 40 mg SC DAILY [facility] Last Admin: 06/12/20 10:08 Dose: 40 mg Documented by: Glucagon (Glucagon 1 Mg/Ml Syringe) 1 mg IM .X1 PRN PRN Reason: Hypoglycemia Piperacillin Sod/Tazobactam (Sod 3.375 gm/ Sodium Chloride) 50 mls @ 12.5 mls/hr IV Q8 [facility] Last Admin: 06/12/20 13:39 Dose: 12.5 mls/hr Documented by: Vancomycin IV Pharmacy to Dose (1 ea/ Sodium Chloride) 500 mls @ 250 mls/hr IV X1 PRN; Protocol PRN Reason: Rx to Dose Vancomycin HCl 750 mg/ Sodium (Chloride) 265 mls @ 250 mls/hr IV Q12H [facility] Last Infusion: 06/12/20 04:58 Dose: Infused Documented by: Sodium Chloride () 250 mls @ 15 mls/hr IV .[id number] PRN PRN Reason: Saline Flush Last Infusion: 06/12/20 06:06 Dose: 0 mls/hr Documented by: Sodium Chloride () 250 mls @ 15 mls/hr IV .[id number] PRN PRN Reason: Additional IVPB Infusion Last Infusion: 06/12/20 04:09 Dose: 0 mls/hr Documented by: Insulin Glargine (Insulin Glargine 100 Units/Ml Pen) 15 units SC BID [facility] Last Admin: 06/12/20 10:09 Dose: 15 u Documented by: Insulin Human Lispro (Insulin Lispro 100 Unit/Ml Insuln.Pen) 0 unit SC TIDAC [facility]; Protocol Last Admin: 06/12/20 12:04 Dose: 3 u Documented by: Insulin Human Lispro (Insulin Lispro 100 Unit/Ml Insuln.Pen) 10 unit SC BREAKFAST [facility] Last Admin: 06/12/20 10:07 Dose: Not Given Documented by: Insulin Human Lispro (Insulin Lispro 100 Unit/Ml Insuln.Pen) 20 unit SC DINNER [facility] Last Admin: 06/11/20 17:36 Dose: 20 u Documented by: Lisinopril (Lisinopril 2.5 Mg Tablet) 2.5 mg PO DAILY [facility] Last Admin: 06/12/20 06:06 Dose: 2.5 mg Documented by: Metoprolol Succinate (Metoprolol(Xl)Succ 50 Mg Tablet) 50 mg PO DAILY [facility] Last Admin: 06/12/20 10:12 Dose: 50 mg Documented by: Ondansetron HCl (Ondansetron 4 Mg/2 Ml Vial) 4 mg IV Q8H PRN PRN PRN Reason: NAUSEA/VOMITING Last Admin: 06/12/20 06:23 Dose: 4 mg Documented by: Oxycodone HCl (Oxycodone 5 Mg Tablet) 5 mg PO Q4H PRN PRN PRN Reason: pain Last Admin: 06/12/20 11:43 Dose: 5 mg Documented by: Pantoprazole Sodium (Pantoprazole Sodium 40 Mg Tablet) 40 mg PO DAILY [facility] Last Admin: 06/12/20 10:12 Dose: 40 mg Documented by: Pravastatin Sodium (Pravastatin 40 Mg Tablet) 40 mg PO QHS [facility] Last Admin: 06/11/20 21:42 Dose: 40 mg Documented by: Prednisone (Prednisone 5 Mg Tablet) 2.5 mg PO DAILY@0800 [facility] Last Admin: 06/12/20 10:09 Dose: 2.5 mg Documented by: Sodium Chloride (0.9% Saline Lock 10 Ml Syringe) 10 - 40 ml IV UD PRN PRN Reason: SALINE FLUSH Last Admin: 06/12/20 11:50 Dose: 10 ml Documented by: STROKE Vital Signs/Narrative: Vital Signs Temp Pulse Resp BP Pulse Ox 06/12/20 14:05 106 H 06/12/20 12:13 37.0 C 62 16 105/47 L 94 Medical Necessity - Tobacco Use Smoking Status: Former smoker Assessment/Plan All Active Problems (Last Reviewed 06/11/20 @ 13:[address] Huan Bradley, ) Decubitus ulcer of foot, stage 3 (Acute) Infected ulcer of skin (Acute) Osteomyelitis of right foot (Acute) Dyspnea (Acute) History of angioplasty of peripheral vessel (Acute ~05/04/20) Ischemic cardiomyopathy (Acute) Open wound of knee, leg, and ankle, complicated (Resolved) Surgical wound dehiscence (Resolved) 1. dyspnea * concern for cardiac equivalent: check troponin and stress * may be multifactorial: paralyzed hemidiaphragm, CAD, COPD * on room air * on aspirin * given vomiting on 06/12, stress cancelled, reattempt on 06/14 * Negative COVID PCR on the , 11th and negative Ab. COVID 19 RULED OUT. Remove isolation. No remdesivir. 2. Right foot osteomyelitis * polymicrobial * was to have outpt eval with ID and podiatry. * start vanc and pip/tazo * ID and podiatry following * will need medically clear prior to undergoing any surgery. 3. DM2 * glargine and SSI 4. VTE prophylaxis: LMWH 5. Emesis: monitor. 6. ACP: full code. Inpatient E&M: 55577 Subs Hosp L2
[2020-06-12] MEDS: Glucerna Shake 120 ML LIQUID PO (16:41)
[2020-06-12] MEDS: Insulin Lispro 100 UNIT/ML INSULN.PEN 20 UNIT SC (16:43)
[2020-06-12 17:06] LABS: Bedside Glucose 219 mg/dL (70-110)
[2020-06-12] MEDS: Pravastatin 40 MG Tablet PO (22:33)
[2020-06-12 22:46] LABS: Bedside Glucose 107 mg/dL (70-110)
[2020-06-13] VITALS (10 sets, daily range): BP systolic 94–120; BP diastolic 43–57; PULSE 66–104; RESP 16–18; TEMP 36.2–36.9; O2SAT 93–97
[2020-06-13 03:19] LABS: Hematocrit 29.6 % (40-54); Hemoglobin 9.7 g/dL (13.0-16.5); Mean Corp Hgb Conc 32.8 g/dL (32-36); Mean Corpuscular Hgb 32.1 pg (27.0-32.0); Mean Platelet Vol. 8.4 fl (6.2-12.0); Platelet Count 121 K/mm3 (150-450); RBC Distribution Width CV 14.2 % (11.6-14.6); RBC Distribution Width SD 47.9 fl (35.1-43.9); Red Blood Count 3.02 M/mm3 (4.6-6.2); White Blood Count 7.5 K/mm3 (4.4-11.0)
[2020-06-13 04:29] LABS: AST(SGOT) 26 U/L (15-37); Alanine Aminotransfer ALT/SGPT 36 U/L (16-61); Albumin, Serum 3.4 g/dL (3.2-5.0); Alkaline Phosphatase 94 U/L (45-117); Anion Gap 7 (5-15); BUN 43 mg/dL (7-18); BUN/Creat Ratio 29.1 RATIO (10-20); Calcium,Total 8.5 mg/dL (8.5-10.1); Chloride 100 mmol/L (98-107); Creatinine, Serum 1.48 mg/dL (0.70-1.30); EST Glomerular Filtration Rate 49 mL/min (>60); Est Glom Filt Rate - Afr Amer 60 mL/min (>60); Estimated Creatinine Clearance 40.11 ml/min; Globulin 3.3 g/dL (2.2-4.2); Glucose 138 mg/dL (74-106); Potassium 4.2 mmol/L (3.5-5.1); Protein, Total 6.7 g/dL (6.4-8.2); Sodium Level 134 mmol/L (136-145); Vancomycin, Trough Level 19.8 ug/mL (5.0-15.0)
[2020-06-13] MEDS: Insulin Lispro 100 UNIT/ML INSULN.PEN SC (06:41)
[2020-06-13 06:51] LABS: Bedside Glucose 197 mg/dL (70-110)
[2020-06-13] MEDS: predniSONE 5 MG Tablet 2.5 MG PO (09:17)
[2020-06-13] MEDS: Chlorthalidone 50 MG Tablet PO ×2 (09:17→09:18)
[2020-06-13] MEDS: Metoprolol(XL)Succ 50 MG Tablet PO (09:17)
[2020-06-13] MEDS: Bumetanide 0.5 MG Tablet 1 MG PO ×2 (09:17→17:08)
[2020-06-13] MEDS: Clopidogrel Bisulfate 75 MG Tablet PO (09:18)
[2020-06-13] MEDS: Pantoprazole Sodium 40 MG Tablet PO (09:18)
[2020-06-13] MEDS: Lisinopril 2.5 MG Tablet PO (09:18)
[2020-06-13] MEDS: Enoxaparin 40 MG/0.4 ML Syringe SC (09:18)
[2020-06-13] MEDS: Insulin Lispro 100 UNIT/ML INSULN.PEN 10 UNIT SC (09:19)
[2020-06-13] MEDS: Aspirin E.C. 81 MG Tablet PO (09:20)
--- NOTE | 2020-06-13 10:07 | PCM.PN.HOSP ---
Patient Problems: Active and Suspected Problems (Last Reviewed 06/11/20 @ 13:[address] Huan Bradley, DO) Decubitus ulcer of foot, stage 3 (Acute) Infected ulcer of skin (Acute) Osteomyelitis of right foot (Acute) Dyspnea (Acute) History of angioplasty of peripheral vessel (Acute ~05/04/20) Ischemic cardiomyopathy (Acute) Reason for Visit: dyspnea Subjective: No further N/V. No SOB. Wants to know what is being done about his defibrillator battery. He said he was notified on Sunday, that the battery was at 0% Vitals/I&O's: Vital Signs Temp Pulse Resp BP Pulse Ox 36.2 C L 92 18 120/57 L 97 06/13/20 08:56 06/13/20 09:17 06/13/20 08:56 06/13/20 08:56 06/13/20 08:56 Oxygen Delivery Method Room Air Weight: 87.6 kg Body Mass Index (BMI) 31.0 Intake and Output for Last 24 Hours 06/11/20 06/12/20 06/13/20 23:59 23:59 23:59 Intake Total 1257.08 / 1257.08 824.42 / 1064.42 795 / 795 Output Total 700 / 700 950 / 1200 475 / 475 Balance 557.08 / 557.08 -125.58 / -135.58 320 / 320 General: Alert, No apparent distress HEENT: Atraumatic, Normocephalic Oral: Moist Mucosa, No Gingival or Mucosal Lesions/ Ulcerations Neck: No Nodes, Thyroid Normal Size and Texture Lungs: Clear to auscultation, Normal air movement, No rhonchi, No wheeze, No rales Cardiovascular: Regular rate, Regular Rhythm, Normal S1, Normal S2, No murmurs Abdomen: Bowel Sounds Present, Soft, Non Tender, Non-Distended, No Hepato-splenomegaly Extremities: No edema, No Calf Tenderness Psych/Mental Status: Appropriate, Flat Affect Microbiology Past 72 Hours 06/11/20 15:45 Discharge - Open/Non-Healing Wound Gram Stain - Final Laboratory Results 06/12/20 12:00: POC Glucose 267 H 06/12/20 16:41: POC Glucose 219 H 06/12/20 22:22: POC Glucose 107 06/13/20 03:06: WBC 7.5, RBC 3.02 L, Hgb 9.7 L, Hct 29.6 L, MCV 98.0 H, MCH 32.1 H, MCHC 32.8, RDW Std Deviation 47.9 H, RDW Coeff of Jac 14.2, Plt Count 121 L, MPV 8.4 06/13/20 03:06: Sodium 134 L, Potassium 4.2, Chloride 100, Carbon Dioxide 27.0, Anion Gap 7, BUN 43 H, Creatinine 1.48 H, Estim Creat Clear Calc 40.11, Est GFR (MDRD) Af Amer 60, Est GFR (MDRD) Non-Af 49 L, BUN/Creatinine Ratio 29.1 H, Glucose 138 H, Calcium 8.5, Total Bilirubin 1.30 H, AST 26, ALT 36, Alkaline Phosphatase 94, Total Protein 6.7, Albumin 3.4, Globulin 3.3, Albumin/Globulin Ratio 1.0 06/13/20 03:06: Vancomycin Trough 19.8 H 06/13/20 06:38: POC Glucose 197 H Current Medications Acetaminophen (Acetaminophen 500 Mg Tablet) 1,000 mg PO TID PRN PRN Reason: PAIN OR TEMP Aspirin (Aspirin E.C. 81 Mg Tablet) 81 mg PO DAILY@0800 [facility] Last Admin: 06/13/20 09:20 Dose: 81 mg Documented by: Bumetanide (Bumetanide 0.5 Mg Tablet) 1 mg PO BIDLX [facility] Last Admin: 06/13/20 09:17 Dose: 1 mg Documented by: Chlorthalidone (Chlorthalidone 50 Mg Tablet) 50 mg PO DAILY [facility] Last Admin: 06/13/20 09:18 Dose: 50 mg Documented by: Clopidogrel Bisulfate (Clopidogrel Bisulfate 75 Mg Tablet) 75 mg PO DAILY [facility] Last Admin: 06/13/20 09:18 Dose: 75 mg Documented by: Dextrose (Dextrose 50%-Water 25 Gm/50 Ml Disp.Syrin) 0 gm IV X1 PRN; Protocol PRN Reason: Hypoglycemia Enoxaparin Sodium (Enoxaparin 40 Mg/0.4 Ml Syringe) 40 mg SC DAILY [facility] Last Admin: 06/13/20 09:18 Dose: 40 mg Documented by: Glucagon (Glucagon 1 Mg/Ml Syringe) 1 mg IM .X1 PRN PRN Reason: Hypoglycemia Piperacillin Sod/Tazobactam (Sod 3.375 gm/ Sodium Chloride) 50 mls @ 12.5 mls/hr IV Q8 [facility] Last Admin: 06/13/20 06:30 Dose: 12.5 mls/hr Documented by: Vancomycin IV Pharmacy to Dose (1 ea/ Sodium Chloride) 500 mls @ 250 mls/hr IV X1 PRN; Protocol PRN Reason: Rx to Dose Vancomycin HCl 750 mg/ Sodium (Chloride) 265 mls @ 250 mls/hr IV Q12H [facility] Last Infusion: 06/13/20 05:45 Dose: Infused Documented by: Sodium Chloride () 250 mls @ 15 mls/hr IV .[id number] PRN PRN Reason: Saline Flush Last Infusion: 06/12/20 06:06 Dose: 0 mls/hr Documented by: Sodium Chloride () 250 mls @ 15 mls/hr IV .[id number] PRN PRN Reason: Additional IVPB Infusion Last Infusion: 06/12/20 04:09 Dose: 0 mls/hr Documented by: Insulin Glargine (Insulin Glargine 100 Units/Ml Pen) 15 units SC BID [facility] Last Admin: 06/13/20 09:18 Dose: 10 u Documented by: Insulin Human Lispro (Insulin Lispro 100 Unit/Ml Insuln.Pen) 0 unit SC TIDAC [facility]; Protocol Last Admin: 06/13/20 06:41 Dose: 2 u Documented by: Insulin Human Lispro (Insulin Lispro 100 Unit/Ml Insuln.Pen) 10 unit SC BREAKFAST [facility] Last Admin: 06/13/20 09:19 Dose: 10 u Documented by: Insulin Human Lispro (Insulin Lispro 100 Unit/Ml Insuln.Pen) 20 unit SC DINNER [facility] Last Admin: 06/12/20 16:43 Dose: 20 u Documented by: Lisinopril (Lisinopril 2.5 Mg Tablet) 2.5 mg PO DAILY [facility] Last Admin: 06/13/20 09:18 Dose: 2.5 mg Documented by: Metoprolol Succinate (Metoprolol(Xl)Succ 50 Mg Tablet) 50 mg PO DAILY [facility] Last Admin: 06/13/20 09:17 Dose: 50 mg Documented by: Nutritional Formula (Lactose Free) (Glucerna Shake 120 Ml Liquid) 120 ml PO 4X/DAY [facility] Last Admin: 06/13/20 09:19 Dose: Not Given Documented by: Ondansetron HCl (Ondansetron 4 Mg/2 Ml Vial) 4 mg IV Q8H PRN PRN PRN Reason: NAUSEA/VOMITING Last Admin: 06/12/20 06:23 Dose: 4 mg Documented by: Oxycodone HCl (Oxycodone 5 Mg Tablet) 5 mg PO Q4H PRN PRN PRN Reason: pain Last Admin: 06/12/20 11:43 Dose: 5 mg Documented by: Pantoprazole Sodium (Pantoprazole Sodium 40 Mg Tablet) 40 mg PO DAILY [facility] Last Admin: 06/13/20 09:18 Dose: 40 mg Documented by: Pravastatin Sodium (Pravastatin 40 Mg Tablet) 40 mg PO QHS [facility] Last Admin: 06/12/20 22:33 Dose: 40 mg Documented by: Prednisone (Prednisone 5 Mg Tablet) 2.5 mg PO DAILY@0800 [facility] Last Admin: 06/13/20 09:17 Dose: 2.5 mg Documented by: Sodium Chloride (0.9% Saline Lock 10 Ml Syringe) 10 - 40 ml IV UD PRN PRN Reason: SALINE FLUSH Last Admin: 06/12/20 11:50 Dose: 10 ml Documented by: STROKE Vital Signs/Narrative: Vital Signs Temp Pulse Resp BP Pulse Ox 06/13/20 09:17 92 06/13/20 08:56 36.2 C L 92 18 120/57 L 97 06/13/20 07:20 82 Medical Necessity - Tobacco Use Smoking Status: Former smoker Assessment/Plan All Active Problems (Last Reviewed 06/11/20 @ 13:[address] Huan Bradley, DO) Decubitus ulcer of foot, stage 3 (Acute) Infected ulcer of skin (Acute) Osteomyelitis of right foot (Acute) Dyspnea (Acute) History of angioplasty of peripheral vessel (Acute ~05/04/20) Ischemic cardiomyopathy (Acute) Open wound of knee, leg, and ankle, complicated (Resolved) Surgical wound dehiscence (Resolved) 1. dyspnea concern for cardiac equivalent: check troponin and stress may be multifactorial: paralyzed hemidiaphragm, CAD, COPD on room air on aspirin given vomiting on 06/12, stress cancelled, reattempt on 06/14 Negative COVID PCR on the , and negative Ab. COVID 19 RULED OUT. Remove isolation. No remdesivir. Stress test was cancelled on 06/12 given active vomiting. Plan is to reattempt on 06/14 2. Right foot osteomyelitis polymicrobial was to have outpt eval with ID and podiatry. start vanc and pip/tazo ID and podiatry following will need medically clear prior to undergoing any surgery. 3. DM2 glargine and SSI 4. VTE prophylaxis: LMWH 5. Emesis: resolved 6. ACP: full code. 7. Defibrillator battery pt informed 06/11 about it needing to be replaced. He notified me on 06/13. He wanted this addressed before anything else. I spoke with Dr. Gutiérrez (risk control specialist for his EPS doc, Dr. Francisco) who informed me the patient has 6 months to have it replaced (no later than October 2020). I informed patient of this. The patient will need to follow up with Dr. Francisco to have this performed as outpt. Greater than 35 minutes of which greater than 50% of the time was counseling the patient about his cardiac work up, treatment for his foot and eventual need for surgery. 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 Also, discussing with the EPS physician about the defibrillator battery. Inpatient E&M: 40802 [facility] L3
[2020-06-13 11:41] LABS: Bedside Glucose 161 mg/dL (70-110)
[2020-06-13 12:05] LABS: Bedside Glucose 168 mg/dL (70-110)
--- NOTE | 2020-06-13 12:46 | PN_ITS ---
Patient Problems: Active and Suspected Problems (Last Reviewed 06/11/20 @ 13:[address] Huan Bradley, DO) Decubitus ulcer of foot, stage 3 (Acute) Infected ulcer of skin (Acute) Osteomyelitis of right foot (Acute) Dyspnea (Acute) History of angioplasty of peripheral vessel (Acute ~05/04/20) Ischemic cardiomyopathy (Acute) Subjective: Patient seen and examined bedside. Nausea and vomiting have resolved. - Physical Exam Vitals/I&O's: Vital Signs Temp Pulse Resp BP Pulse Ox 97.2 F L 92 18 120/57 L 97 06/13/20 08:56 06/13/20 09:17 06/13/20 08:56 06/13/20 08:56 06/13/20 08:56 Oxygen Delivery Method Room Air Weight: 87.6 kg Body Mass Index (BMI) 31.0 Intake and Output for Last 24 Hours 06/11/20 06/12/20 06/13/20 23:59 23:59 23:59 Intake Total 1257.08 / 1257.08 824.42 / 1064.42 1085 / 1085 Output Total 700 / 700 950 / 1200 775 / 775 Balance 557.08 / 557.08 -125.58 / -135.58 310 / 310 General: Alert, Oriented x3 HEENT: Atraumatic Extremities: No clubbing, No cyanosis, Capillary Refill Less than 3 Seconds, Diminished Peripheral Pulses, Edema Skin: Ulcer/ Wound - right lateral foot ulceration to bone, fibrous base, no malodor, mild surrounding erythema improved, no purulence, serous draiange minimal Musculoskeletal: - - right TMA, left BKA Neurological: - - absent epicritic sensation Psych/Mental Status: Normal Affect, Appropriate Microbiology Past 72 Hours 06/11/20 15:45 Discharge - Open/Non-Healing Wound Gram Stain - Final 06/11/20 15:45 Discharge - Open/Non-Healing Wound Wound Culture - Preliminary Gram negative dilan Laboratory Results 06/12/20 16:41: POC Glucose 219 H 06/12/20 22:22: POC Glucose 107 06/13/20 03:06: WBC 7.5, RBC 3.02 L, Hgb 9.7 L, Hct 29.6 L, MCV 98.0 H, MCH 32.1 H, MCHC 32.8, RDW Std Deviation 47.9 H, RDW Coeff of Jac 14.2, Plt Count 121 L, MPV 8.4 06/13/20 03:06: Sodium 134 L, Potassium 4.2, Chloride 100, Carbon Dioxide 27.0, Anion Gap 7, BUN 43 H, Creatinine 1.48 H, Estim Creat Clear Calc 40.11, Est GFR (MDRD) Af Amer 60, Est GFR (MDRD) Non-Af 49 L, BUN/Creatinine Ratio 29.1 H, Glucose 138 H, Calcium 8.5, Total Bilirubin 1.30 H, AST 26, ALT 36, Alkaline Phosphatase 94, Total Protein 6.7, Albumin 3.4, Globulin 3.3, Albumin/Globulin Ratio 1.0 06/13/20 03:06: Vancomycin Trough 19.8 H 06/13/20 06:38: POC Glucose 197 H 06/13/20 09:06: POC Glucose 161 H 06/13/20 12:01: POC Glucose 168 H Current Medications Acetaminophen (Acetaminophen 500 Mg Tablet) 1,000 mg PO TID PRN PRN Reason: PAIN OR TEMP Aspirin (Aspirin E.C. 81 Mg Tablet) 81 mg PO DAILY@0800 [facility] Last Admin: 06/13/20 09:20 Dose: 81 mg Documented by: Bumetanide (Bumetanide 0.5 Mg Tablet) 1 mg PO BIDLX [facility] Last Admin: 06/13/20 09:17 Dose: 1 mg Documented by: Chlorthalidone (Chlorthalidone 50 Mg Tablet) 50 mg PO DAILY [facility] Last Admin: 06/13/20 09:18 Dose: 50 mg Documented by: Clopidogrel Bisulfate (Clopidogrel Bisulfate 75 Mg Tablet) 75 mg PO DAILY [facility] Last Admin: 06/13/20 09:18 Dose: 75 mg Documented by: Dextrose (Dextrose 50%-Water 25 Gm/50 Ml Disp.Syrin) 0 gm IV X1 PRN; Protocol PRN Reason: Hypoglycemia Enoxaparin Sodium (Enoxaparin 40 Mg/0.4 Ml Syringe) 40 mg SC DAILY [facility] Last Admin: 06/13/20 09:18 Dose: 40 mg Documented by: Glucagon (Glucagon 1 Mg/Ml Syringe) 1 mg IM .X1 PRN PRN Reason: Hypoglycemia Piperacillin Sod/Tazobactam (Sod 3.375 gm/ Sodium Chloride) 50 mls @ 12.5 mls/hr IV Q8 [facility] Last Infusion: 06/13/20 12:06 Dose: Infused Documented by: Vancomycin IV Pharmacy to Dose (1 ea/ Sodium Chloride) 500 mls @ 250 mls/hr IV X1 PRN; Protocol PRN Reason: Rx to Dose Vancomycin HCl 750 mg/ Sodium (Chloride) 265 mls @ 250 mls/hr IV Q12H [facility] Last Infusion: 06/13/20 05:45 Dose: Infused Documented by: Sodium Chloride () 250 mls @ 15 mls/hr IV .[id number] PRN PRN Reason: Saline Flush Last Infusion: 06/12/20 06:06 Dose: 0 mls/hr Documented by: Sodium Chloride () 250 mls @ 15 mls/hr IV .[id number] PRN PRN Reason: Additional IVPB Infusion Last Infusion: 06/12/20 04:09 Dose: 0 mls/hr Documented by: Insulin Glargine (Insulin Glargine 100 Units/Ml Pen) 15 units SC BID [facility] Last Admin: 06/13/20 09:18 Dose: 10 u Documented by: Insulin Human Lispro (Insulin Lispro 100 Unit/Ml Insuln.Pen) 0 unit SC TIDAC [facility]; Protocol Last Admin: 06/13/20 12:07 Dose: Not Given Documented by: Insulin Human Lispro (Insulin Lispro 100 Unit/Ml Insuln.Pen) 10 unit SC BREAKFAST [facility] Last Admin: 06/13/20 09:19 Dose: 10 u Documented by: Insulin Human Lispro (Insulin Lispro 100 Unit/Ml Insuln.Pen) 20 unit SC DINNER [facility] Last Admin: 06/12/20 16:43 Dose: 20 u Documented by: Lisinopril (Lisinopril 2.5 Mg Tablet) 2.5 mg PO DAILY [facility] Last Admin: 06/13/20 09:18 Dose: 2.5 mg Documented by: Metoprolol Succinate (Metoprolol(Xl)Succ 50 Mg Tablet) 50 mg PO DAILY [facility] Last Admin: 06/13/20 09:17 Dose: 50 mg Documented by: Nutritional Formula (Lactose Free) (Glucerna Shake 120 Ml Liquid) 120 ml PO 4X/DAY [facility] Last Admin: 06/13/20 09:19 Dose: Not Given Documented by: Ondansetron HCl (Ondansetron 4 Mg/2 Ml Vial) 4 mg IV Q8H PRN PRN PRN Reason: NAUSEA/VOMITING Last Admin: 06/12/20 06:23 Dose: 4 mg Documented by: Oxycodone HCl (Oxycodone 5 Mg Tablet) 5 mg PO Q4H PRN PRN PRN Reason: pain Last Admin: 06/12/20 11:43 Dose: 5 mg Documented by: Pantoprazole Sodium (Pantoprazole Sodium 40 Mg Tablet) 40 mg PO DAILY [facility] Last Admin: 06/13/20 09:18 Dose: 40 mg Documented by: Pravastatin Sodium (Pravastatin 40 Mg Tablet) 40 mg PO QHS [facility] Last Admin: 06/12/20 22:33 Dose: 40 mg Documented by: Prednisone (Prednisone 5 Mg Tablet) 2.5 mg PO DAILY@0800 [facility] Last Admin: 06/13/20 09:17 Dose: 2.5 mg Documented by: Sodium Chloride (0.9% Saline Lock 10 Ml Syringe) 10 - 40 ml IV UD PRN PRN Reason: SALINE FLUSH Last Admin: 06/12/20 11:50 Dose: 10 ml Documented by: Medical Necessity - Tobacco Use Smoking Status: Former smoker Assessment/Plan All Active Problems (Last Reviewed 06/11/20 @ 13:[address] Huan Bradley, DO) Decubitus ulcer of foot, stage 3 (Acute) Infected ulcer of skin (Acute) Osteomyelitis of right foot (Acute) Dyspnea (Acute) History of angioplasty of peripheral vessel (Acute ~05/04/20) Ischemic cardiomyopathy (Acute) Open wound of knee, leg, and ankle, complicated (Resolved) Surgical wound dehiscence (Resolved) Right foot ulcer Suspected osteomyelitis right fifth metatarsal Diabetes with neuropathy BKA left lower extremity TMA right lower extremity peripheral vascular disease Significant cardio history Patient seen and examined at bedside. Patient tested negative for COVID. Patient admitted for dyspnea and foot ulcer D dimer 1.01 Patient has been seen in the wound care center with suspected osteomyelitis of the right fifth digit and was being referred to podiatry next week for possible surgical work-up Patient has significant history of vascular disease and has been seen by Dr. Busch with multiple surgeries. Patient had LEAS done on 04/08/2020 showing No flow noted in segments peroneal and posterior tibial on right leg. Suspect femoral occlusive disease as goes from triphasic flow proximal to monophasic flow in popliteal artery. Patient had x-rays obtained 06/02/2020 of the right foot showing erosion of the lateral aspect of the amputated fifth metatarsal, suspected osteomyelitis. Patient has a pacemaker and will be unable to obtain an MRI There is a high suspicion of osteomyelitis culture results show a gram negative dilan ESR 17 and CRP 27, WBC 7.5 Dressing was changed today with silver alginate, 4 x 4's, Kerlix, Jem Continue daily dressing changes Patient had pacemaker procedure done 2 days ago with Covid negative test prior to. Patient is likely going to need surgical intervention but will need to await medical clearance. Patient was told his pacemaker is at 0%. Patient was unable to get stress test yesterday due to N/V. Will attempt stress test Sunday. Due to significant heart disease will await results prior to any podiatry intervention. Patient is well aware that he will need surgery on his foot as this was already explained to him in depth at the [facility]. All questions were answered. Will await medical stability and clearance Talked to over the phone as well to update Follow ID recommendations Podiatry will continue to follow
[2020-06-13] MEDS: Glucerna Shake 120 ML LIQUID PO ×2 (13:52→21:18)
[2020-06-13] MEDS: Insulin Lispro 100 UNIT/ML INSULN.PEN 20 UNIT SC (17:09)
[2020-06-13 18:11] LABS: Bedside Glucose 232 mg/dL (70-110)
[2020-06-13 21:16] LABS: Bedside Glucose 132 mg/dL (70-110)
[2020-06-13] MEDS: Pravastatin 40 MG Tablet PO (21:18)
[2020-06-14] VITALS (14 sets, daily range): BP systolic 92–115; BP diastolic 42–67; PULSE 71–95; RESP 16–18; TEMP 36.5–36.9; O2SAT 94–99
[2020-06-14] MEDS: Vancomycin IV 500 MG/100 ML BAG 100 MG IV ×2 (05:14→18:54)
--- NOTE | 2020-06-14 05:55 | EKG12_ITS ---
Test Reason : CP ADMISSION Blood Pressure : / mmHG Vent. Rate : 094 BPM Atrial Rate : 094 BPM P-R Int : 000 ms QRS Dur : 174 ms QT Int : 444 ms P-R-T Axes : 044 202 006 degrees QTc Int : 555 ms Ventricular-paced rhythm Biventricular pacemaker detected Abnormal ECG When compared with ECG of 09-JUN-2020 13:01, Vent. rate has decreased BY 8 BPM Confirmed by GAGE ELLSWORTH, RUBI ([id number]), telegraph editor LEA ALDANA ([id number]) on 06/21/2020 9:18:29 AM Referred By: DEVIN Confirmed By:JERSON ALMONTE MD
[2020-06-14] MEDS: Lisinopril 2.5 MG Tablet PO (06:17)
[2020-06-14] MEDS: Clopidogrel Bisulfate 75 MG Tablet PO (06:17)
[2020-06-14] MEDS: Aspirin E.C. 81 MG Tablet PO (06:17)
[2020-06-14 06:31] LABS: Hematocrit 29.2 % (40-54); Hemoglobin 9.8 g/dL (13.0-16.5); Mean Corp Hgb Conc 33.6 g/dL (32-36); Mean Corpuscular Hgb 32.5 pg (27.0-32.0); Mean Corpuscular Volume 96.7 fL (80-94); Platelet Count 127 K/mm3 (150-450); RBC Distribution Width CV 14.1 % (11.6-14.6); RBC Distribution Width SD 46.4 fl (35.1-43.9); Red Blood Count 3.02 M/mm3 (4.6-6.2); White Blood Count 7.4 K/mm3 (4.4-11.0)
[2020-06-14 07:00] LABS: AST(SGOT) 30 U/L (15-37); Alanine Aminotransfer ALT/SGPT 41 U/L (16-61); Albumin, Serum 3.2 g/dL (3.2-5.0); Alkaline Phosphatase 86 U/L (45-117); Anion Gap 9 (5-15); BUN 49 mg/dL (7-18); BUN/Creat Ratio 30.2 RATIO (10-20); Calcium,Total 8.4 mg/dL (8.5-10.1); Chloride 99 mmol/L (98-107); Creatinine, Serum 1.62 mg/dL (0.70-1.30); EST Glomerular Filtration Rate 45 mL/min (>60); Est Glom Filt Rate - Afr Amer 54 mL/min (>60); Estimated Creatinine Clearance 36.65 ml/min; Globulin 3.2 g/dL (2.2-4.2); Glucose 136 mg/dL (74-106); Potassium 3.6 mmol/L (3.5-5.1); Protein, Total 6.4 g/dL (6.4-8.2); Sodium Level 135 mmol/L (136-145)
[2020-06-14 07:00] LABS: Bedside Glucose 158 mg/dL (70-110)
--- NOTE | 2020-06-14 07:00 | NURSING ---
nuclear stress test aware that pt had 18 beat run of vtach prior to coming for test
--- NOTE | 2020-06-14 08:51 | PN_ITS ---
Patient Problems: Active and Suspected Problems (Last Reviewed 06/11/20 @ 13:[address] Huan Bradley, DO) Decubitus ulcer of foot, stage 3 (Acute) Infected ulcer of skin (Acute) Osteomyelitis of right foot (Acute) Dyspnea (Acute) History of angioplasty of peripheral vessel (Acute ~05/04/20) Ischemic cardiomyopathy (Acute) Subjective: Patient was seen this morning for follow up on right foot ulcer/infection. Patient is resting in bed, had cardiac stress test this AM. No complaints of fever, chills, nausea or vomiting. - Physical Exam Vitals/I&O's: Vital Signs Temp Pulse Resp BP Pulse Ox 98.1 F 86 17 110/56 L 98 06/14/20 06:15 06/14/20 07:15 06/14/20 06:15 06/14/20 06:48 06/14/20 06:15 Oxygen Delivery Method Room Air Weight: 87.6 kg Body Mass Index (BMI) 31.0 Intake and Output for Last 24 Hours 06/12/20 06/13/20 06/14/20 23:59 23:59 23:59 Intake Total 824.42 / 1064.42 2630 / 2630 231.08 / 231.08 Output Total 950 / 1200 3025 / 3025 350 / 350 Balance -125.58 / -135.58 -395 / -395 -118.92 / -118.92 General: Alert, Oriented x3, Cooperative, No apparent distress Extremities: No cyanosis, Capillary Refill Less than 3 Seconds - to right TMA stump, No Calf Tenderness, Edema - There is some diffuse edema to the right lower extremity, - - Ulceration to the distal lateral right TMA site at residual 5th met probes down to bone, there is some granular tissue, and also fibrotic tissue, bone is hard, there is no maloder, no visible abscess, no cellulitis, no streaking, no crepitus, no fluctuance. Ulcer measures ~1.5cm x 0.8cm Skin: - - No evidence of acute ischemia to the right foot. Peripheral neuropathy noted to the right foot. TMA right foot. BKA left. Psych/Mental Status: Normal Affect, Appropriate, Alert and oriented to time, place, person, mood and affect Microbiology Past 72 Hours 06/11/20 15:45 Discharge - Open/Non-Healing Wound Gram Stain - Final 06/11/20 15:45 Discharge - Open/Non-Healing Wound Wound Culture - Final Enterobacter cloacae complex Laboratory Results 06/13/20 09:06: POC Glucose 161 H 06/13/20 12:01: POC Glucose 168 H 06/13/20 17:01: POC Glucose 232 H 06/13/20 21:11: POC Glucose 132 H 06/14/20 05:55: WBC 7.4, RBC 3.02 L, Hgb 9.8 L, Hct 29.2 L, MCV 96.7 H, MCH 32.5 H, MCHC 33.6, RDW Std Deviation 46.4 H, RDW Coeff of Jac 14.1, Plt Count 127 L, MPV 9.0 06/14/20 05:55: Sodium 135 L, Potassium 3.6, Chloride 99, Carbon Dioxide 27.0, Anion Gap 9, BUN 49 H, Creatinine 1.62 H, Estim Creat Clear Calc 36.65, Est GFR (MDRD) Af Amer 54 L, Est GFR (MDRD) Non-Af 45 L, BUN/Creatinine Ratio 30.2 H, Glucose 136 H, Calcium 8.4 L, Total Bilirubin 1.40 H, AST 30, ALT 41, Alkaline Phosphatase 86, Total Protein 6.4, Albumin 3.2, Globulin 3.2, Albumin/Globulin Ratio 1.0 06/14/20 05:55: Magnesium 2.0 06/14/20 06:34: POC Glucose 158 H Current Medications Acetaminophen (Acetaminophen 500 Mg Tablet) 1,000 mg PO TID PRN PRN Reason: PAIN OR TEMP Aspirin (Aspirin E.C. 81 Mg Tablet) 81 mg PO DAILY@0800 [facility] Last Admin: 06/14/20 06:17 Dose: 81 mg Documented by: Bumetanide (Bumetanide 0.5 Mg Tablet) 1 mg PO BIDLX [facility] Last Admin: 06/13/20 17:08 Dose: 1 mg Documented by: Chlorthalidone (Chlorthalidone 50 Mg Tablet) 50 mg PO DAILY [facility] Last Admin: 06/13/20 09:18 Dose: 50 mg Documented by: Clopidogrel Bisulfate (Clopidogrel Bisulfate 75 Mg Tablet) 75 mg PO DAILY [facility] Last Admin: 06/14/20 06:17 Dose: 75 mg Documented by: Dextrose (Dextrose 50%-Water 25 Gm/50 Ml Disp.Syrin) 0 gm IV X1 PRN; Protocol PRN Reason: Hypoglycemia Enoxaparin Sodium (Enoxaparin 40 Mg/0.4 Ml Syringe) 40 mg SC DAILY [facility] Last Admin: 06/13/20 09:18 Dose: 40 mg Documented by: Glucagon (Glucagon 1 Mg/Ml Syringe) 1 mg IM .X1 PRN PRN Reason: Hypoglycemia Piperacillin Sod/Tazobactam (Sod 3.375 gm/ Sodium Chloride) 50 mls @ 12.5 mls/hr IV Q8 [facility] Last Infusion: 06/14/20 06:52 Dose: 0 mls/hr Documented by: Vancomycin IV Pharmacy to Dose (1 ea/ Sodium Chloride) 500 mls @ 250 mls/hr IV X1 PRN; Protocol PRN Reason: Rx to Dose Sodium Chloride () 250 mls @ 15 mls/hr IV .[id number] PRN PRN Reason: Saline Flush Last Infusion: 06/14/20 05:19 Dose: 0 mls/hr Documented by: Sodium Chloride () 250 mls @ 15 mls/hr IV .[id number] PRN PRN Reason: Additional IVPB Infusion Last Infusion: 06/12/20 04:09 Dose: 0 mls/hr Documented by: Vancomycin HCl () 500 mg in 100 mls @ 100 mls/hr IV Q12H [facility] Last Infusion: 06/14/20 06:14 Dose: Infused Documented by: Insulin Glargine (Insulin Glargine 100 Units/Ml Pen) 15 units SC BID [facility] Last Admin: 06/13/20 21:17 Dose: 15 u Documented by: Insulin Human Lispro (Insulin Lispro 100 Unit/Ml Insuln.Pen) 0 unit SC TIDAC [facility]; Protocol Last Admin: 06/14/20 07:06 Dose: Not Given Documented by: Insulin Human Lispro (Insulin Lispro 100 Unit/Ml Insuln.Pen) 10 unit SC BREAKFAST [facility] Last Admin: 06/13/20 09:19 Dose: 10 u Documented by: Insulin Human Lispro (Insulin Lispro 100 Unit/Ml Insuln.Pen) 20 unit SC DINNER [facility] Last Admin: 06/13/20 17:09 Dose: 20 u Documented by: Lisinopril (Lisinopril 2.5 Mg Tablet) 2.5 mg PO DAILY [facility] Last Admin: 06/14/20 06:17 Dose: 2.5 mg Documented by: Metoprolol Succinate (Metoprolol(Xl)Succ 50 Mg Tablet) 50 mg PO DAILY [facility] Last Admin: 06/13/20 09:17 Dose: 50 mg Documented by: Nutritional Formula (Lactose Free) (Glucerna Shake 120 Ml Liquid) 120 ml PO 4X/DAY [facility] Last Admin: 06/13/20 21:18 Dose: 120 ml Documented by: Ondansetron HCl (Ondansetron 4 Mg/2 Ml Vial) 4 mg IV Q8H PRN PRN PRN Reason: NAUSEA/VOMITING Last Admin: 06/12/20 06:23 Dose: 4 mg Documented by: Oxycodone HCl (Oxycodone 5 Mg Tablet) 5 mg PO Q4H PRN PRN PRN Reason: pain Last Admin: 06/12/20 11:43 Dose: 5 mg Documented by: Pantoprazole Sodium (Pantoprazole Sodium 40 Mg Tablet) 40 mg PO DAILY [facility] Last Admin: 06/13/20 09:18 Dose: 40 mg Documented by: Pravastatin Sodium (Pravastatin 40 Mg Tablet) 40 mg PO QHS [facility] Last Admin: 06/13/20 21:18 Dose: 40 mg Documented by: Prednisone (Prednisone 5 Mg Tablet) 2.5 mg PO DAILY@0800 [facility] Last Admin: 06/13/20 09:17 Dose: 2.5 mg Documented by: Sodium Chloride (0.9% Saline Lock 10 Ml Syringe) 10 - 40 ml IV UD PRN PRN Reason: SALINE FLUSH Last Admin: 06/12/20 11:50 Dose: 10 ml Documented by: Medical Necessity - Tobacco Use Smoking Status: Former smoker Assessment/Plan All Active Problems (Last Reviewed 06/11/20 @ 13:[address] 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 Right foot ulcer is stable at this time with no acute signs of infection. There is findings c/w osteomyelitis as wound probes to bone and some xray changes noted. This appears more chronic in nature. Reviewed patient's recent lower extremity vascular studies and he has very poor arterial flow to foot, there is concern about healing potential. Patient relates to recent vascular intervention to the right lower extremity ~[address] Busch, I will discuss with Dr. Busch on healing potential from vascular standpoint. We discussed wound/bone debridement in OR, however given the current clinical picture this is not urgent and will await further cardiac workup and also discuss with Dr. Busch from lower extremity vascular standpoint. No weightbearing to right foot. Keep ulcer site offloaded at all times. Reviewed wound cultures, patient on IV antibiotics, ID/Dr. Glass is on consult. Continue with daily dressing changes to ulcer site. Cleanse with normal saline soln, apply Aquacel Ag, gauze and kerlix secured with milton which was completed today. Talked to over the phone as well to update Podiatry will continue to follow
[2020-06-14] MEDS: Metoprolol(XL)Succ 50 MG Tablet PO (09:50)
[2020-06-14] MEDS: predniSONE 5 MG Tablet 2.5 MG PO (09:50)
[2020-06-14] MEDS: Bumetanide 0.5 MG Tablet 1 MG PO (09:50)
[2020-06-14] MEDS: Pantoprazole Sodium 40 MG Tablet PO (09:51)
[2020-06-14] MEDS: Enoxaparin 40 MG/0.4 ML Syringe SC (09:51)
--- NOTE | 2020-06-14 10:00 | CT_ITS ---
STUDY: CTA CHEST REASON FOR EXAM: Male, 74 years old. SOB, elevated D-dimer, nausea/vomiting, diabetes, hypertension, COPD. RADIATION DOSAGE (If Supplied By Facility): CTDIvol = ( 14.33 ) mGy, DLP = ( 464.74 ) mGycm TECHNIQUE: The examination was performed with the intravenous administration of IV 75mL [id number]. Post-processing of the angiographic images was performed, with multiplanar reformation and 3D reconstruction. Individualized dose optimization techniques were used for this CT. COMPARISON: Comparison is made with prior study dated 06/09/2020. FINDINGS: Normal enhancement of the main pulmonary artery and right and left pulmonary arteries. Normal enhancement of the bilateral peripheral pulmonary arteries. There is no demonstrated pulmonary embolism. There is atherosclerotic calcification of the aortic arch with tortuosity. There is no demonstrated aortic dissection. 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 The left-sided pacemaker is seen. Normal mediastinum. Normal hilar regions. Normal visualized trachea and bronchi. Hyperinflation. Emphysematous changes. Stable cystic changes in the right upper lobe as well as scarring at the lung bases. Calcified pleural plaques at the right lung base. Small bilateral pleural effusions with bibasilar atelectasis. Normal chest wall structures. Normal osseous structures. Normal visualized upper abdomen. CT/CTA Chest W/WO Contrast IMPRESSION: No evidence of pulmonary embolism. Stable examination. Electronically Signed: Ramon Lemus, at 11:14 EST , Service support ,
--- NOTE | 2020-06-14 10:56 | PN_ITS ---
<Vahe Scott - Last Filed: 06/14/20 11:00> Patient Problems: Active and Suspected Problems (Last Reviewed 06/11/20 @ 13:[address] Huan Bradley DO) Decubitus ulcer of foot, stage 3 (Acute) Infected ulcer of skin (Acute) Osteomyelitis of right foot (Acute) Dyspnea (Acute) History of angioplasty of peripheral vessel (Acute ~05/04/20) Ischemic cardiomyopathy (Acute) Reason for Visit: SOB Subjective: Ongoing SOB at rest and worse with exertion. Pt states this began last week. No chest pain/tightness/pressure. No LH, diaphoresis. Some nausea again this AM. Vitals/I&O's: Vital Signs Temp Pulse Resp BP Pulse Ox 97.8 F 82 16 115/67 99 06/14/20 09:37 06/14/20 09:50 06/14/20 09:37 06/14/20 09:37 06/14/20 09:37 Oxygen Delivery Method Room Air Weight: 193 lb 1.999 oz Body Mass Index (BMI) 31.0 Intake and Output for Last 24 Hours 06/12/20 06/13/20 06/14/20 23:59 23:59 23:59 Intake Total 824.42 / 1064.42 2630 / 2630 231.08 / 231.08 Output Total 950 / 1200 3025 / 3025 350 / 350 Balance -125.58 / -135.58 -395 / -395 -118.92 / -118.92 General: Alert, Oriented x3, Cooperative HEENT: Atraumatic, PERRLA, EOMI, Normocephalic Neck: Supple, No JVD, Negative Carotid Bruits Lungs: Clear to auscultation, Normal air movement Cardiovascular: Regular rate, No murmurs Abdomen: Bowel Sounds Present, Soft, Non Tender Extremities: No edema, Capillary Refill Less than 3 Seconds Skin: No rashes, No breakdown Musculoskeletal: No Tenderness to Palpation of Joints or Extremities Neurological: Cranial nerves II-XII grossly intact Psych/Mental Status: Normal Affect, Appropriate, Alert and oriented to time, place, person, mood and affect Microbiology Past 72 Hours 06/11/20 15:45 Discharge - Open/Non-Healing Wound Gram Stain - Final 06/11/20 15:45 Discharge - Open/Non-Healing Wound Wound Culture - Final Enterobacter cloacae complex Laboratory Results 06/13/20 09:06: POC Glucose 161 H 06/13/20 12:01: POC Glucose 168 H 06/13/20 17:01: POC Glucose 232 H 06/13/20 21:11: POC Glucose 132 H 06/14/20 05:55: WBC 7.4, RBC 3.02 L, Hgb 9.8 L, Hct 29.2 L, MCV 96.7 H, MCH 32.5 H, MCHC 33.6, RDW Std Deviation 46.4 H, RDW Coeff of Jac 14.1, Plt Count 127 L, MPV 9.0 06/14/20 05:55: Sodium 135 L, Potassium 3.6, Chloride 99, Carbon Dioxide 27.0, Anion Gap 9, BUN 49 H, Creatinine 1.62 H, Estim Creat Clear Calc 36.65, Est GFR (MDRD) Af Amer 54 L, Est GFR (MDRD) Non-Af 45 L, BUN/Creatinine Ratio 30.2 H, Glucose 136 H, Calcium 8.4 L, Total Bilirubin 1.40 H, AST 30, ALT 41, Alkaline Phosphatase 86, Total Protein 6.4, Albumin 3.2, Globulin 3.2, Albumin/Globulin Ratio 1.0 06/14/20 05:55: Magnesium 2.0 06/14/20 06:34: POC Glucose 158 H Current Medications Acetaminophen (Acetaminophen 500 Mg Tablet) 1,000 mg PO TID PRN PRN Reason: PAIN OR TEMP Aspirin (Aspirin E.C. 81 Mg Tablet) 81 mg PO DAILY@0800 [facility] Last Admin: 06/14/20 06:17 Dose: 81 mg Documented by: Bumetanide (Bumetanide 0.5 Mg Tablet) 1 mg PO BIDLX [facility] Last Admin: 06/14/20 09:50 Dose: 1 mg Documented by: Chlorthalidone (Chlorthalidone 50 Mg Tablet) 50 mg PO DAILY [facility] Last Admin: 06/13/20 09:18 Dose: 50 mg Documented by: Clopidogrel Bisulfate (Clopidogrel Bisulfate 75 Mg Tablet) 75 mg PO DAILY [facility] Last Admin: 06/14/20 06:17 Dose: 75 mg Documented by: Dextrose (Dextrose 50%-Water 25 Gm/50 Ml Disp.Syrin) 0 gm IV X1 PRN; Protocol PRN Reason: Hypoglycemia Enoxaparin Sodium (Enoxaparin 40 Mg/0.4 Ml Syringe) 40 mg SC DAILY [facility] Last Admin: 06/14/20 09:51 Dose: 40 mg Documented by: Glucagon (Glucagon 1 Mg/Ml Syringe) 1 mg IM .X1 PRN PRN Reason: Hypoglycemia Piperacillin Sod/Tazobactam (Sod 3.375 gm/ Sodium Chloride) 50 mls @ 12.5 mls/hr IV Q8 [facility] Last Infusion: 06/14/20 09:42 Dose: 12.5 mls/hr Documented by: Vancomycin IV Pharmacy to Dose (1 ea/ Sodium Chloride) 500 mls @ 250 mls/hr IV X1 PRN; Protocol PRN Reason: Rx to Dose Sodium Chloride () 250 mls @ 15 mls/hr IV .[id number] PRN PRN Reason: Saline Flush Last Infusion: 06/14/20 05:19 Dose: 0 mls/hr Documented by: Sodium Chloride () 250 mls @ 15 mls/hr IV .[id number] PRN PRN Reason: Additional IVPB Infusion Last Infusion: 06/12/20 04:09 Dose: 0 mls/hr Documented by: Vancomycin HCl () 500 mg in 100 mls @ 100 mls/hr IV Q12H [facility] Last Infusion: 06/14/20 06:14 Dose: Infused Documented by: Sodium Chloride () 1,000 mls @ 75 mls/hr IV .[id number] [facility] Insulin Glargine (Insulin Glargine 100 Units/Ml Pen) 15 units SC BID [facility] Last Admin: 06/13/20 21:17 Dose: 15 u Documented by: Insulin Human Lispro (Insulin Lispro 100 Unit/Ml Insuln.Pen) 0 unit SC TIDAC [facility]; Protocol Last Admin: 06/14/20 07:06 Dose: Not Given Documented by: Insulin Human Lispro (Insulin Lispro 100 Unit/Ml Insuln.Pen) 10 unit SC BREAKFAST [facility] Last Admin: 06/14/20 09:39 Dose: Not Given Documented by: Insulin Human Lispro (Insulin Lispro 100 Unit/Ml Insuln.Pen) 20 unit SC DINNER [facility] Last Admin: 06/13/20 17:09 Dose: 20 u Documented by: Iopamidol (Contrast Allergy Safety Check) 0 ml IV X1 [facility] Lisinopril (Lisinopril 2.5 Mg Tablet) 2.5 mg PO DAILY [facility] Last Admin: 06/14/20 06:17 Dose: 2.5 mg Documented by: Metoprolol Succinate (Metoprolol(Xl)Succ 50 Mg Tablet) 50 mg PO DAILY [facility] Last Admin: 06/14/20 09:50 Dose: 50 mg Documented by: Nutritional Formula (Lactose Free) (Glucerna Shake 120 Ml Liquid) 120 ml PO 4X/DAY [facility] Last Admin: 06/14/20 09:40 Dose: Not Given Documented by: Ondansetron HCl (Ondansetron 4 Mg/2 Ml Vial) 4 mg IV Q8H PRN PRN PRN Reason: NAUSEA/VOMITING Last Admin: 06/12/20 06:23 Dose: 4 mg Documented by: Oxycodone HCl (Oxycodone 5 Mg Tablet) 5 mg PO Q4H PRN PRN PRN Reason: pain Last Admin: 06/12/20 11:43 Dose: 5 mg Documented by: Pantoprazole Sodium (Pantoprazole Sodium 40 Mg Tablet) 40 mg PO DAILY [facility] Last Admin: 06/14/20 09:51 Dose: 40 mg Documented by: Pravastatin Sodium (Pravastatin 40 Mg Tablet) 40 mg PO QHS [facility] Last Admin: 06/13/20 21:18 Dose: 40 mg Documented by: Prednisone (Prednisone 5 Mg Tablet) 2.5 mg PO DAILY@0800 [facility] Last Admin: 06/14/20 09:50 Dose: 2.5 mg Documented by: Sodium Chloride (0.9% Saline Lock 10 Ml Syringe) 10 - 40 ml IV UD PRN PRN Reason: SALINE FLUSH Last Admin: 06/12/20 11:50 Dose: 10 ml Documented by: STROKE Vital Signs/Narrative: Vital Signs Temp Pulse Resp BP Pulse Ox 06/14/20 09:50 82 06/14/20 09:37 97.8 F 82 16 115/67 99 06/14/20 07:15 86 Medical Necessity - Tobacco Use Smoking Status: Former smoker Assessment/Plan All Active Problems (Last Reviewed 06/11/20 @ 13:[address] Huan Bradley, DO) Decubitus ulcer of foot, stage 3 (Acute) Infected ulcer of skin (Acute) Osteomyelitis of right foot (Acute) Dyspnea (Acute) History of angioplasty of peripheral vessel (Acute ~05/04/20) Ischemic cardiomyopathy (Acute) Open wound of knee, leg, and ankle, complicated (Resolved) Surgical wound dehiscence (Resolved) 1. Exertional dyspnea, significant CAD- troponin neg x 3. Stress test pending. D dimer elevated - CTA pending. Prior CABG x5, stent 2019. -continue aspirin, plavix, statin, metoprolol. hold chlorthalidone, bumex and lisinopril with worsening renal function and CTA chest. Covid neg. 2. partially paralyzed right hemidiaphragm - chronic, cxr shows stable right hemidiaphragm with right basilar scarring. 3. Osteomyelitis - podiatry, ID following - cx shows Enterobacter cloacae complex, pt on zosyn, vanco. defer management to ID. 4. hx ischemic CM - last echo on file 03/20 EF 20-25%, RVSP 39 mmHg, aortic sclerosis and stenosis at least moderate. ICD/Pacer in place - needs battery changed after discharge (referral back to his EP). Holding bumex and getting fluids due to CKD and administration of IV contrast for CTA. 5. ALL - bipap qhs 6. Mild thrombocytopenia - trend 7. CKDIII - hold hygotron, lisinopril. gentle IV fluids as pt getting contrast for CTA. 8. Chronic anemia - mildly macrocytic - trending down. check iron/tibc/sat /b12/folate. possibly contributing to #1. DVT ppx: lovenox This patient was seen by Vahe Scott PA-C under the supervision of Doctor Simón. <Helena Gr - Last Filed: 06/14/20 15:48> Vitals/I&O's: Vital Signs Temp Pulse Resp BP Pulse Ox 97.9 F 86 16 104/49 L 96 06/14/20 11:50 06/14/20 14:55 06/14/20 11:50 06/14/20 11:50 06/14/20 11:50 Oxygen Delivery Method Room Air Weight: 193 lb 1.999 oz Body Mass Index (BMI) 31.0 Intake and Output for Last 24 Hours 06/12/20 06/13/20 06/14/20 23:59 23:59 23:59 Intake Total 824.42 / 1064.42 2630 / 2630 500.25 / 500.25 Output Total 950 / 1200 3025 / 3025 350 / 350 Balance -125.58 / -135.58 -395 / -395 150.25 / 150.25 Microbiology Past 72 Hours 06/11/20 15:45 Discharge - Open/Non-Healing Wound Gram Stain - Final 06/11/20 15:45 Discharge - Open/Non-Healing Wound Wound Culture - Final Enterobacter cloacae complex Laboratory Results 06/13/20 17:01: POC Glucose 232 H 06/13/20 21:11: POC Glucose 132 H 06/14/20 05:55: WBC 7.4, RBC 3.02 L, Hgb 9.8 L, Hct 29.2 L, MCV 96.7 H, MCH 32.5 H, MCHC 33.6, RDW Std Deviation 46.4 H, RDW Coeff of Jac 14.1, Plt Count 127 L, MPV 9.0 06/14/20 05:55: Sodium 135 L, Potassium 3.6, Chloride 99, Carbon Dioxide 27.0, Anion Gap 9, BUN 49 H, Creatinine 1.62 H, Estim Creat Clear Calc 36.65, Est GFR (MDRD) Af Amer 54 L, Est GFR (MDRD) Non-Af 45 L, BUN/Creatinine Ratio 30.2 H, Glucose 136 H, Calcium 8.4 L, Total Bilirubin 1.40 H, AST 30, ALT 41, Alkaline Phosphatase 86, Total Protein 6.4, Albumin 3.2, Globulin 3.2, Albumin/Globulin Ratio 1.0 06/14/20 05:55: Magnesium 2.0 06/14/20 06:00: Iron 201 H, TIBC 236 L, Iron Saturation 85.2 H, Folate 8.10 06/14/20 06:34: POC Glucose 158 H 06/14/20 11:41: POC Glucose 234 H 06/14/20 13:44: POC Glucose 211 H Current Medications Acetaminophen (Acetaminophen 500 Mg Tablet) 1,000 mg PO TID PRN PRN Reason: PAIN OR TEMP Aspirin (Aspirin E.C. 81 Mg Tablet) 81 mg PO DAILY@0800 [facility] Last Admin: 06/14/20 06:17 Dose: 81 mg Documented by: Clopidogrel Bisulfate (Clopidogrel Bisulfate 75 Mg Tablet) 75 mg PO DAILY [facility] Last Admin: 06/14/20 06:17 Dose: 75 mg Documented by: Dextrose (Dextrose 50%-Water 25 Gm/50 Ml Disp.Syrin) 0 gm IV X1 PRN; Protocol PRN Reason: Hypoglycemia Enoxaparin Sodium (Enoxaparin 40 Mg/0.4 Ml Syringe) 40 mg SC DAILY [facility] Last Admin: 06/14/20 09:51 Dose: 40 mg Documented by: Glucagon (Glucagon 1 Mg/Ml Syringe) 1 mg IM .X1 PRN PRN Reason: Hypoglycemia Piperacillin Sod/Tazobactam (Sod 3.375 gm/ Sodium Chloride) 50 mls @ 12.5 mls/hr IV Q8 [facility] Last Admin: 06/14/20 13:32 Dose: 12.5 mls/hr Documented by: Vancomycin IV Pharmacy to Dose (1 ea/ Sodium Chloride) 500 mls @ 250 mls/hr IV X1 PRN; Protocol PRN Reason: Rx to Dose Sodium Chloride () 250 mls @ 15 mls/hr IV .[id number] PRN PRN Reason: Saline Flush Last Infusion: 06/14/20 05:19 Dose: 0 mls/hr Documented by: Sodium Chloride () 250 mls @ 15 mls/hr IV .[id number] PRN PRN Reason: Additional IVPB Infusion Last Infusion: 06/12/20 04:09 Dose: 0 mls/hr Documented by: Vancomycin HCl () 500 mg in 100 mls @ 100 mls/hr IV Q12H [facility] Last Infusion: 06/14/20 06:14 Dose: Infused Documented by: Sodium Chloride () 1,000 mls @ 75 mls/hr IV .[id number] [facility] Last Admin: 06/14/20 11:43 Dose: 75 mls/hr Documented by: Insulin Glargine (Insulin Glargine 100 Units/Ml Pen) 15 units SC BID [facility] Last Admin: 06/14/20 13:45 Dose: 15 u Documented by: Insulin Human Lispro (Insulin Lispro 100 Unit/Ml Insuln.Pen) 0 unit SC TIDAC [facility]; Protocol Last Admin: 06/14/20 12:01 Dose: Not Given Documented by: Insulin Human Lispro (Insulin Lispro 100 Unit/Ml Insuln.Pen) 10 unit SC BREAKFAST [facility] Last Admin: 06/14/20 09:39 Dose: Not Given Documented by: Insulin Human Lispro (Insulin Lispro 100 Unit/Ml Insuln.Pen) 20 unit SC DINNER [facility] Last Admin: 06/13/20 17:09 Dose: 20 u Documented by: Iopamidol (Contrast Allergy Safety Check) 0 ml IV X1 [facility] Last Admin: 06/14/20 11:07 Dose: Not Given Documented by: Metoprolol Succinate (Metoprolol(Xl)Succ 50 Mg Tablet) 50 mg PO DAILY [facility] Last Admin: 06/14/20 09:50 Dose: 50 mg Documented by: Nutritional Formula (Lactose Free) (Glucerna Shake 120 Ml Liquid) 120 ml PO 4X/DAY [facility] Last Admin: 06/14/20 13:38 Dose: Not Given Documented by: Ondansetron HCl (Ondansetron 4 Mg/2 Ml Vial) 4 mg IV Q8H PRN PRN PRN Reason: NAUSEA/VOMITING Last Admin: 06/14/20 12:01 Dose: 4 mg Documented by: Oxycodone HCl (Oxycodone 5 Mg Tablet) 5 mg PO Q4H PRN PRN PRN Reason: pain Last Admin: 06/12/20 11:43 Dose: 5 mg Documented by: Pantoprazole Sodium (Pantoprazole Sodium 40 Mg Tablet) 40 mg PO DAILY [facility] Last Admin: 06/14/20 09:51 Dose: 40 mg Documented by: Pravastatin Sodium (Pravastatin 40 Mg Tablet) 40 mg PO QHS [facility] Last Admin: 06/13/20 21:18 Dose: 40 mg Documented by: Prednisone (Prednisone 5 Mg Tablet) 2.5 mg PO DAILY@0800 [facility] Last Admin: 06/14/20 09:50 Dose: 2.5 mg Documented by: Sodium Chloride (0.9% Saline Lock 10 Ml Syringe) 10 - 40 ml IV UD PRN PRN Reason: SALINE FLUSH Last Admin: 06/14/20 12:01 Dose: 10 ml Documented by: STROKE Vital Signs/Narrative: Vital Signs Temp Pulse Resp BP Pulse Ox 06/14/20 14:55 86 06/14/20 11:50 97.9 F 77 16 104/49 L 96 Assessment/Plan Patient seen by Vahe Scott PA-C under my supervision. Patient seen and examined. He was admitted with a complaint of exertional shortness of breath and chest pain. D-dimer was also elevated. CTA done of the chest today was negative for PE. Patient has no complaints this morning. Shortness of breath has improved. Review of symptoms otherwise negative. O/E: Vital Signs Temp Pulse Resp BP Pulse Ox 97.9 F 86 16 104/49 L 96 06/14/20 11:50 06/14/20 14:55 06/14/20 11:50 06/14/20 11:50 06/14/20 11:50 General: Alert, Oriented x3, Cooperative, No apparent distress HEENT: Atraumatic, PERRLA, EOMI, Normocephalic Oral: Moist Mucosa Neck: Supple, No JVD Lungs: Clear to auscultation, Normal air movement, No rhonchi, No wheeze, No rales Cardiovascular: Regular rate, Regular Rhythm, Normal S1, Normal S2, No murmurs Abdomen: Soft, Non Tender, Non-Distended, No Hepato-splenomegaly Extremities: No edema, Capillary Refill Less than 3 Seconds; left AKA. RLE in bandage Skin: No rashes, No breakdown Neurological: Neuro grossly intact, Sensory exam intact to light touch and pain Psych/Mental Status: Normal Affect, Appropriate Stress test done today showed evidence of prior apical and lateral wall VA but no evidence of significant ischemia and estimated EF was 19%. Patient has a 2D echo in the system from 2019 which showed EF of 20 to 25% then. 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 However after clarification and follow-up phone calls, it turns out that patient's battery has about 3 months more according to him. Podiatry to decide about edema of his right lower extremity though from their note, it appears that they think patient has osteomyelitis of the right lower extremity and patient is on IV vancomycin and Zosyn. He recently had a procedure on his right lower extremity done for peripheral vascular disease, and podiatry wants to get in touch with vascular disease to see the chances of good healing if patient undergoes debridement. CT of the chest was negative for PE. As per Vahe Scott PA-C's notes which I have reviewed and endorsed. Inpatient E&M: [id number] Subs Hosp L2
[2020-06-14] MEDS: 0.9% Normal Saline 1,000 ML 75 ML IV (11:43)
[2020-06-14] MEDS: Ondansetron 4 MG/2 ML Vial IV (12:01)
[2020-06-14] MEDS: 0.9% Saline Lock 10 ML Syringe IV (12:01)
[2020-06-14 12:09] LABS: Iron 201 ug/dL (65-175); Iron Binding Capacity,Total 236 ug/dL (250-450); PERCENT IRON SATURATION 85.2 % (15.0-55.0)
[2020-06-14 12:25] LABS: Bedside Glucose 234 mg/dL (70-110)
--- NOTE | 2020-06-14 12:54 | STRESSREP_ITS ---
Stress Test Report Date: 06/14/2020 Procedure: Pharmacologic stress nuclear imaging study Indications: Chest pain Consent: Per the patient Procedure: The patient underwent pharmacologic (Regadenoson) evaluation with a peak heart rate of 109 beats per minute (74%predicted maximal heart rate) and a peak blood pressure of 118/58 mmHg. The baseline ECG demonstrated sinus rhythm with multiple PVCs, prior anterior AK, nonspecific intraventricular conduction delay. EKG during lexiscan infusion revealed no significant ischemic changes. EKG post infusion revealed no significant ischemic changes [There were no significant cardiac dysrhythmias pretest, during pharmacologic infusion, or recovery]. [There was no complaint of chest discomfort during pharmacologic infusion or recovery]. The examination was discontinued secondary to completion of protocol. Impression: 1. Lexiscan stress test test is negative for Lexiscan infusion induced EKG changes of ischemia. 2. Lexiscan stress test test is negative for Lexiscan infusion induced chest pain. 3. Results of the nuclear portion of the test is as below Myocardial perfusion imaging study: Technique: The patient was injected with 11.9 millicuries of technetium 99m Cardiolite and subsequently rest SPECT Cardiolite nuclear imaging was obtained in the horizontal long, vertical long, and short axis views. The patient underwent pharmacologic (Regadenoson) evaluation. Please see above for details. The patient was injected with 33.7 millicuries of technetium 99m Cardiolite and subsequently stress SPECT Cardiolite nuclear imaging was obtained in the horizontal long, vertical long, and short axis views. A gated Cardiolite study at peak stress was obtained. Interpretation: Rest and stress SPECT Cardiolite nuclear imaging status post realignment, normalization, and attenuation correction demonstrate some radioisotope uptake in the apex, moderately decreased radioisotope uptake in the lateral wall in both the rest and stress images after attenuation correction. These findings are suggestive of prior AK involving this territory. There is also decreased radioisotope uptake in the inferior wall prior to attenuation correction that improves after attenuation correction suggestive of diaphragmatic attenuation artifact. Gated images reveal severe global hypokinesis. The reported LVEF is 19%. Impression: 1. There is no evidence of significant ischemia. There is evidence of prior apical and lateral myocardial infarction. 2. Estimated ejection fraction is 19%. This note was generated with [employer] software. It may contain incorrect words, spelling, and punctuation that were not noted in checking the note before signing.
--- NOTE | 2020-06-14 13:25 | NURSING ---
Dr Ayala notified this nurse that the dressing to the right foot was changed this am per podiatry. will leave dressing in place and will assess in am.
[2020-06-14 13:51] LABS: Bedside Glucose 211 mg/dL (70-110)
--- NOTE | 2020-06-14 14:05 | CASEMGMT ---
SARI HAND assessment: Face to Face with patient for initial transition planning/care coordination assessment. SARI HAND introduced self and role at [facility], pt voices understanding and consents to assessment at this time. Pt is sitting up in bed in no distress at this time. Pt is A/Ox4 at this time and answers all questions appropriately at this time. Pt is on room air at this time. Care providers, pharmacy, and demographics verified at this time. Presentation: c/o SOB, cough, CEJA, weakness, CP, low blood sugar-family member tested positive for COVID 11 days prior Admitting dx: Dyspnea, CHF PCP: [facility] Specialists: Magi, heme; Nolan, cardio in [place]; Narayan, vasc; wound clinic-pt states is also supposed to see a pulmonary here at [facility] but hasn't scheduled yet. Preferred Pharmacy: [facility]/Mail order Insurance: [facility] A/B, MMO Prescription Benefit: Yes Living Will/HPOA: Pt states has a LW/HPOA and is aware that they are not on file at [facility] at this time. Pt states his , Alexia Carr, is HPOA. LNOK: Alexia Carr, ; Sushma Ahmadi, daughter Living Arrangements: Pt states lives with in bi-level home and states no concerns at home at this time. Pt states is normally independent with ADL's. Pt has a L BKA and this wound is on the right foot at this time. Transportation: Pt states drives and states no transportation concerns at this time. DME/HHC: Pt states has a tub bench, bipap thru [facility], cane, and 2liters oxygen at bedtime-was thru [facility] and never transferred to [place] per pt. Pt states no need for any further DME at this time. Pt does state interest in transferring oxygen 'at some point.' Pt states has had HHC in the past and has been to [facility] in the past. Pt does state some concerns with going home at time of discharge at this time. Pt is retired. Pt states does not smoke cigarettes or drink ETOH. Pt states no further concerns/needs at this time. CM to follow for PT/OT evals, IV antibx need, and any further discharge planning/needs. Advised pt to ask for CM if any further questions/concerns/needs arise, voices understanding. Pt Goal: Home Plan: TBD, pending PT/OT LOPEZ daugherty recommendations. Sergio GUO CM
--- NOTE | 2020-06-14 17:02 | PCM.PN.ID ---
Patient Problems: Active and Suspected Problems (Last Reviewed 06/11/20 @ 13:[address] Huan Bradley, DO) Decubitus ulcer of foot, stage 3 (Acute) Infected ulcer of skin (Acute) Osteomyelitis of right foot (Acute) Dyspnea (Acute) History of angioplasty of peripheral vessel (Acute ~05/04/20) Ischemic cardiomyopathy (Acute) Subjective: Chest pain and dyspnea this AM after stress test. Feeling a little better this afternoon. No fever, no n/v/d. - Physical Exam Vitals/I&O's: Vital Signs Temp Pulse Resp BP Pulse Ox 97.9 F 86 16 104/49 L 96 06/14/20 11:50 06/14/20 14:55 06/14/20 11:50 06/14/20 11:50 06/14/20 11:50 Oxygen Delivery Method Room Air Weight: 87.6 kg Body Mass Index (BMI) 31.0 Intake and Output for Last 24 Hours 06/12/20 06/13/20 06/14/20 23:59 23:59 23:59 Intake Total 824.42 / 1064.42 2630 / 2630 500.25 / 500.25 Output Total 950 / 1200 3025 / 3025 350 / 350 Balance -125.58 / -135.58 -395 / -395 150.25 / 150.25 General: Alert, Cooperative, No apparent distress Lungs: Clear to auscultation, Normal air movement Cardiovascular: Regular rate, Regular Rhythm Abdomen: Soft, Non Tender, Non-Distended Skin: No rashes, Ulcer/ Wound - foot wrapped Microbiology Past 72 Hours 06/11/20 15:45 Discharge - Open/Non-Healing Wound Gram Stain - Final 06/11/20 15:45 Discharge - Open/Non-Healing Wound Wound Culture - Final Enterobacter cloacae complex Laboratory Results 06/13/20 17:01: POC Glucose 232 H 06/13/20 21:11: POC Glucose 132 H 06/14/20 05:55: WBC 7.4, RBC 3.02 L, Hgb 9.8 L, Hct 29.2 L, MCV 96.7 H, MCH 32.5 H, MCHC 33.6, RDW Std Deviation 46.4 H, RDW Coeff of Jac 14.1, Plt Count 127 L, MPV 9.0 06/14/20 05:55: Sodium 135 L, Potassium 3.6, Chloride 99, Carbon Dioxide 27.0, Anion Gap 9, BUN 49 H, Creatinine 1.62 H, Estim Creat Clear Calc 36.65, Est GFR (MDRD) Af Amer 54 L, Est GFR (MDRD) Non-Af 45 L, BUN/Creatinine Ratio 30.2 H, Glucose 136 H, Calcium 8.4 L, Total Bilirubin 1.40 H, AST 30, ALT 41, Alkaline Phosphatase 86, Total Protein 6.4, Albumin 3.2, Globulin 3.2, Albumin/Globulin Ratio 1.0 06/14/20 05:55: Magnesium 2.0 06/14/20 06:00: Iron 201 H, TIBC 236 L, Iron Saturation 85.2 H, Folate 8.10 06/14/20 06:34: POC Glucose 158 H 06/14/20 11:41: POC Glucose 234 H 06/14/20 13:44: POC Glucose 211 H Current Medications Acetaminophen (Acetaminophen 500 Mg Tablet) 1,000 mg PO TID PRN PRN Reason: PAIN OR TEMP Aspirin (Aspirin E.C. 81 Mg Tablet) 81 mg PO DAILY@0800 [facility] Last Admin: 06/14/20 06:17 Dose: 81 mg Documented by: Clopidogrel Bisulfate (Clopidogrel Bisulfate 75 Mg Tablet) 75 mg PO DAILY [facility] Last Admin: 06/14/20 06:17 Dose: 75 mg Documented by: Dextrose (Dextrose 50%-Water 25 Gm/50 Ml Disp.Syrin) 0 gm IV X1 PRN; Protocol PRN Reason: Hypoglycemia Enoxaparin Sodium (Enoxaparin 40 Mg/0.4 Ml Syringe) 40 mg SC DAILY [facility] Last Admin: 06/14/20 09:51 Dose: 40 mg Documented by: Glucagon (Glucagon 1 Mg/Ml Syringe) 1 mg IM .X1 PRN PRN Reason: Hypoglycemia Piperacillin Sod/Tazobactam (Sod 3.375 gm/ Sodium Chloride) 50 mls @ 12.5 mls/hr IV Q8 [facility] Last Admin: 06/14/20 13:32 Dose: 12.5 mls/hr Documented by: Vancomycin IV Pharmacy to Dose (1 ea/ Sodium Chloride) 500 mls @ 250 mls/hr IV X1 PRN; Protocol PRN Reason: Rx to Dose Sodium Chloride () 250 mls @ 15 mls/hr IV .[id number] PRN PRN Reason: Saline Flush Last Infusion: 06/14/20 05:19 Dose: 0 mls/hr Documented by: Sodium Chloride () 250 mls @ 15 mls/hr IV .[id number] PRN PRN Reason: Additional IVPB Infusion Last Infusion: 06/12/20 04:09 Dose: 0 mls/hr Documented by: Vancomycin HCl () 500 mg in 100 mls @ 100 mls/hr IV Q12H [facility] Last Infusion: 06/14/20 06:14 Dose: Infused Documented by: Sodium Chloride () 1,000 mls @ 75 mls/hr IV .[id number] [facility] Last Admin: 06/14/20 11:43 Dose: 75 mls/hr Documented by: Insulin Glargine (Insulin Glargine 100 Units/Ml Pen) 15 units SC BID [facility] Last Admin: 06/14/20 13:45 Dose: 15 u Documented by: Insulin Human Lispro (Insulin Lispro 100 Unit/Ml Insuln.Pen) 0 unit SC TIDAC [facility]; Protocol Last Admin: 06/14/20 12:01 Dose: Not Given Documented by: Insulin Human Lispro (Insulin Lispro 100 Unit/Ml Insuln.Pen) 10 unit SC BREAKFAST [facility] Last Admin: 06/14/20 09:39 Dose: Not Given Documented by: Insulin Human Lispro (Insulin Lispro 100 Unit/Ml Insuln.Pen) 20 unit SC DINNER [facility] Last Admin: 06/13/20 17:09 Dose: 20 u Documented by: Iopamidol (Contrast Allergy Safety Check) 0 ml IV X1 [facility] Last Admin: 06/14/20 11:07 Dose: Not Given Documented by: Metoprolol Succinate (Metoprolol(Xl)Succ 50 Mg Tablet) 50 mg PO DAILY [facility] Last Admin: 06/14/20 09:50 Dose: 50 mg Documented by: Nutritional Formula (Lactose Free) (Glucerna Shake 120 Ml Liquid) 120 ml PO 4X/DAY [facility] Last Admin: 06/14/20 13:38 Dose: Not Given Documented by: Ondansetron HCl (Ondansetron 4 Mg/2 Ml Vial) 4 mg IV Q8H PRN PRN PRN Reason: NAUSEA/VOMITING Last Admin: 06/14/20 12:01 Dose: 4 mg Documented by: Oxycodone HCl (Oxycodone 5 Mg Tablet) 5 mg PO Q4H PRN PRN PRN Reason: pain Last Admin: 06/12/20 11:43 Dose: 5 mg Documented by: Pantoprazole Sodium (Pantoprazole Sodium 40 Mg Tablet) 40 mg PO DAILY [facility] Last Admin: 06/14/20 09:51 Dose: 40 mg Documented by: Pravastatin Sodium (Pravastatin 40 Mg Tablet) 40 mg PO QHS [facility] Last Admin: 06/13/20 21:18 Dose: 40 mg Documented by: Prednisone (Prednisone 5 Mg Tablet) 2.5 mg PO DAILY@0800 [facility] Last Admin: 06/14/20 09:50 Dose: 2.5 mg Documented by: Sodium Chloride (0.9% Saline Lock 10 Ml Syringe) 10 - 40 ml IV UD PRN PRN Reason: SALINE FLUSH Last Admin: 06/14/20 12:01 Dose: 10 ml Documented by: Medical Necessity - Tobacco Use Smoking Status: Former smoker Route of nutrition/ use of supplements: [] Nutritional Intake: [] IV Site: [] Wills Catheter: [] - Assessment/Plan Antibiotics: [] Assessment/Plan: [] Active and Suspected Problems (Last Reviewed 06/11/20 @ 13:[address] Huan Bradley, DO) Decubitus ulcer of foot, stage 3 (Acute) Infected ulcer of skin (Acute) Osteomyelitis of right foot (Acute) Dyspnea (Acute) History of angioplasty of peripheral vessel (Acute ~05/04/20) Ischemic cardiomyopathy (Acute) R foot osteo - seen on xray. Podiatry following. Wound cx here with enterobacter. Cont empiric vanc/zosyn. Has been on linezolid/cefdinir; most recent wound cx with enterobacter, MR-CoNS x2, e faecalis, and corynebacteria. covid pcr and Ab neg. Out of iso. Will follow
[2020-06-14] MEDS: Insulin Lispro 100 UNIT/ML INSULN.PEN 20 UNIT SC (17:22)
[2020-06-14] MEDS: Insulin Lispro 100 UNIT/ML INSULN.PEN SC (17:23)
[2020-06-14 17:35] LABS: Bedside Glucose 344 mg/dL (70-110)
[2020-06-14 18:45] LABS: Vancomycin, Trough Level 21.1 ug/mL (5.0-15.0)
[2020-06-14 19:01] LABS: Vitamin B12 637 pg/mL (211-911)
--- NOTE | 2020-06-14 20:07 | PCM.RX.CS ---
Consult Pharmacy has been consulted to manage selected antiobiotic: Vancomycin Type of Consult: Follow-up Labs: Sodium 135 mmol/L (136-145) L 06/14/20 05:55 Potassium 3.6 mmol/L (3.5-5.1) 06/14/20 05:55 Chloride 99 mmol/L (98-107) 06/14/20 05:55 Carbon Dioxide 27.0 mmol/L (21.0-32.0) 06/14/20 05:55 Anion Gap 9 (5-15) 06/14/20 05:55 BUN 49 mg/dL (7-18) H 06/14/20 05:55 Creatinine 1.62 mg/dL (0.70-1.30) H 06/14/20 05:55 Est GFR (MDRD) Af Amer 54 mL/min (>60) L 06/14/20 05:55 Est GFR (MDRD) Non-Af 45 mL/min (>60) L 06/14/20 05:55 BUN/Creatinine Ratio 30.2 RATIO (10-20) H 06/14/20 05:55 Glucose 136 mg/dL (74-106) H 06/14/20 05:55 Vancomycin Trough 21.1 ug/mL (5.0-15.0) H 06/14/20 17:36 Microbiology: Microbiology 06/11/20 15:45 Discharge - Open/Non-Healing Wound Gram Stain - Final 06/11/20 15:45 Discharge - Open/Non-Healing Wound Wound Culture - Final Enterobacter cloacae complex Goal Trough: 15-20 mcg/mL Pharmacy Plan for Drug Dosing: VANCOMYCIN LEVEL RECEIVED Current Vancomycin Dose: 500MG Q12H Number of Doses Received: 1 - 500MG, 4 - 750MG Vancomycin Level: 21.1 MG/DL Hours Since Last Dose: 12 Renal Function: SCR 1.62, CRCL 42.2MG/DL USING ADJ BW Renal Function Trend: WORSENING Lab/Micro: ENTEROBACTER IN WOUND CX Vancomycin Plan/Comments: 500MG DOSE HUNG AT 1854, DOSE HAD ALREADY FINISHED INFUSING WHEN I CALLED TO HAVE DOSE STOPPED SO PT RECEIVED ENTIRE 500MG DOSE. WILL D/C FOR NOW AND RE-DRAW A TROUGH IN 24 HOURS. Pharmacy Service will continue to monitor and adjust dosing as required. Labs to be done on [date and time ordered]: 06/15/20 @ 1900
[2020-06-14] MEDS: Glucerna Shake 120 ML LIQUID PO (21:59)
[2020-06-14] MEDS: Pravastatin 40 MG Tablet PO (22:01)
[2020-06-14 22:05] LABS: Bedside Glucose 186 mg/dL (70-110)
[2020-06-15] MEDS: 0.9% Normal Saline 1,000 ML 75 ML IV (01:22)
--- NOTE | 2020-06-15 01:38 | CPS ---
pt declines use of bipap, does not like our units
[2020-06-15 03:00] VITALS: PULSE 71
[2020-06-15 04:25] VITALS: BP 91/43; PULSE 73; RESP 18; TEMP 36.7; O2SAT 92
[2020-06-15 06:36] LABS: Hematocrit 27.3 % (40-54); Mean Corpuscular Hgb 31.8 pg (27.0-32.0); Mean Corpuscular Volume 96.5 fL (80-94); Platelet Count 139 K/mm3 (150-450); RBC Distribution Width CV 13.8 % (11.6-14.6); RBC Distribution Width SD 46.8 fl (35.1-43.9); Red Blood Count 2.83 M/mm3 (4.6-6.2); White Blood Count 7.1 K/mm3 (4.4-11.0)
[2020-06-15 07:00] LABS: ALB/GLOB Ratio 1.1 RATIO (0.9-2.4); AST(SGOT) 17 U/L (15-37); Alanine Aminotransfer ALT/SGPT 31 U/L (16-61); Albumin, Serum 3.1 g/dL (3.2-5.0); Alkaline Phosphatase 77 U/L (45-117); Anion Gap 7 (5-15); BUN 41 mg/dL (7-18); BUN/Creat Ratio 29.1 RATIO (10-20); Calcium,Total 8.1 mg/dL (8.5-10.1); Chloride 100 mmol/L (98-107); Creatinine, Serum 1.41 mg/dL (0.70-1.30); EST Glomerular Filtration Rate 52 mL/min (>60); Est Glom Filt Rate - Afr Amer 63 mL/min (>60); Estimated Creatinine Clearance 42.11 ml/min; Globulin 2.9 g/dL (2.2-4.2); Glucose 91 mg/dL (74-106); Potassium 3.4 mmol/L (3.5-5.1); Sodium Level 139 mmol/L (136-145)
[2020-06-15 07:00] LABS: Bedside Glucose 90 mg/dL (70-110)
[2020-06-15 07:04] VITALS: PULSE 88
[2020-06-15 07:06] LABS: Hemoglobin A1c 6.8 % (3.8-5.6)
--- NOTE | 2020-06-15 07:57 | DCINST_ITS ---
Weight Bearing Status: - - Ok to put weight on right foot, keep ulcer/wound right foot offloaded at all times Call your doctor if your incision/area has: Continuous Slow Oozing, Increased Redness, Foul Smelling Discharge Call your doctor if you observe: Fever of 101 or Higher Cleanse incision/area with: - - Wound care right foot ulcer/wound: Change dressing daily - Cleanse with normal saline solution, apply Aquacel Ag with overlying gauze, kerlix and milton dressing. Allergies/Adverse Reactions: Allergies amiodarone Allergy (Severe, Verified 06/09/20 12:51) pulmonary fibrosis sotalol Allergy (Severe, Verified 06/09/20 12:51) intolerant levofloxacin [From Levaquin] Allergy (Verified 06/09/20 12:51) Pain in joints LEG CRAMPING gabapentin Adverse Reaction (Verified 06/09/20 12:51) Diarrhea latex Adverse Reaction (Verified 06/09/20 12:51) Rash Medications to take at Discharge Oxycodone HCl/Acetaminophen [Percocet 5-325] 1 - 2 tab PO Q4H PRN PRN 03/17/15 acetaminophen 500 mg tablet 1,000 - 3,000 mg PO TID PRN tab 08/05/19 levothyroxine 200 mcg tablet 200 mcg PO DAILY 08/05/19 omeprazole 40 mg capsule,delayed release 40 mg PO DAILY 08/05/19 prednisone 2.5 mg tablet 2.5 mg PO DAILY 08/05/19 metoprolol succinate 50 mg tablet,extended release 24 hr 50 mg PO DAILY #90 tab 10/13/19 clopidogrel 75 mg tablet 75 mg PO DAILY #90 tab 11/10/19 lisinopril 2.5 mg tablet 2.5 mg PO DAILY #90 tab 11/10/19 pravastatin 40 mg tablet 40 mg PO QHS #90 tab 11/10/19 aspirin 81 mg tablet,delayed release 81 mg PO DAILY 12/17/19 Insulin Glargine,Hum.rec.anlog [Lantus] 15 unit SQ BID 06/09/20 Insulin Regular, Human [Novolin R] See Protocol SC QHS 06/09/20 Bumetanide 1 mg PO DAILY 06/11/20 Insulin Regular, Human [Novolin R] 10 units SC BREAKFAST 06/11/20 Insulin Regular, Human [Novolin R] 20 units SC DINNER 06/11/20 Ertapenem Sodium [Ertapenem] 1 gm IV DAILY #37 vial 06/15/20 Vancomycin/0.9 % Sod Chloride [Vanco 750 mg/250 ml-0.9% NaCl] 750 mg IV DAILY #37 plast..bag 06/15/20 The following prescriptions were given: Ertapenem Sodium [Ertapenem] 1 gm IV DAILY #37 vial Prescription Printed Vancomycin/0.9 % Sod Chloride [Vanco 750 mg/250 ml-0.9% NaCl] 750 mg IV DAILY #37 plast..bag Prescription Printed Primary Care Physician: Jcarlos Glasgow MD [Primary Care Provider] - Test Results: Test results from this visit will be discussed in further detail at your follow- up appointment, if applicable. Please Follow Up With: Dr. Agosto When: at [facility] as scheduled on 06/16/2020
[2020-06-15] MEDS: Acetaminophen 500 MG Tablet 1000 MG PO (08:10)
[2020-06-15] MEDS: Enoxaparin 40 MG/0.4 ML Syringe SC (08:10)
[2020-06-15] MEDS: predniSONE 5 MG Tablet 2.5 MG PO (08:10)
[2020-06-15] MEDS: Aspirin E.C. 81 MG Tablet PO (08:10)
[2020-06-15] MEDS: Insulin Lispro 100 UNIT/ML INSULN.PEN 10 UNIT SC (08:11)
[2020-06-15] MEDS: Pantoprazole Sodium 40 MG Tablet PO (08:12)
[2020-06-15] MEDS: Clopidogrel Bisulfate 75 MG Tablet PO (08:12)
[2020-06-15 08:45] VITALS: BP 94/52; PULSE 86; RESP 18; TEMP 36.6; O2SAT 99
--- NOTE | 2020-06-15 09:27 | NURSING ---
wound photo: right lateral foot
--- NOTE | 2020-06-15 10:00 | NURSING ---
Surgical shoe given to patient for the right foot per Dr Ayala's request. shoe will be evaluated by Dr Agosto tomorrow at the wound center appt. Pt has wound care supplies at home. pt states the wound center had ordered the supplies for them. pt will take the supplies left in room as well. pt denies further questions at this time.
--- NOTE | 2020-06-15 10:58 | CASEMGMT ---
Addendum entered by Sarai Narvaez 06/15/20 15:44: Call back from Marnie in OP infusion and they state pt will be scheduled at 1500 on 06/16/2020 but pt should just come straight from Wound clinic appts at 1345 and 1445. Therapy is also recommending a WW at discharge and states no preference for DME company at this time. Script signed and faxed to [facility] at this time. Call to [employer] to notify of referral and pt discharge today, voice understanding. Apple at [facility] updated to cancel referral for pt at this time, voices understanding. Pt/ updated on all, voice understanding at this time. Pt/ voice no further questions/concerns/needs at this time. aware that RN or pt will call to notify her when pt is ready for discharge, voices understanding. Ping RN updated on all, voices understanding. Sergio RN CM Addendum entered by Sarai Narvaez 06/15/20 14:35: Per OP infusion, they can see pt tomorrow for 1st OP infusion and order to be signed by Dr. Glass tomorrow and then faxed to them. This RN CM did attempt to speak with [facility] financial services to see if they can figure out what cost might be for pt to have daily infusions but per Britni, they are unable at this time. Pt/ updated on all and both agree for the OP infusions to be set up at this time. Call back to infusion center to see what time pt may be set up for tomorrow and message left for them to call this RN CM back. states pt is scheduled at Wound clinic at 1345 with Surendra and 1445 with Maria Luisa. Pt states does not feel need for HH to be set up at this time. Call to Alexia at [facility] to notify of referral cancellation at this time. Pt is aware that if he feels he needs therapy once home to notify PCP or podiatry, voices understanding. Pt/ voice no further questions/concerns/needs at this time. Sergio RN CM Addendum entered by Sarai Narvaez 06/15/20 13:34: This RN CM received a call back from Apple at [facility] and she states that the total for IV's and supplies per week will be $653 thru pt's MCR D plan. Pt updated at this time, voices understanding. had initially wanted pt to go to OP infusion center as he had done the past but pt wanted to do IV therapy at home. Call to Infusion center to see what cost might be for pt at this time and referral faxed per pt request at this time. Pt states he is willing to do OP infusion center and that he would not need HHC, if he went with OP infusion. Alexia at [facility] updated at this time and this RN CM will let her know once decision made. Pt wanted this RN CM to call and update and message left for at this time to call this RN CM back. This RN CM awaiting to hear back from OP infusion. Sergio RN YAZAN Addendum entered by Sarai Narvaez 06/15/20 11:34: Call back from Alexia at [facility] and she states they can take pt at this time. This RN CM now awaiting call back from Apple at [facility] [place] in regards to referral. Pt will also need a dose of ertapenem prior to discharge per Dr. Glass. Sergio RN YAZAN Original Note: Pt to be sent home on IV antibx with a PICC line and would prefer [facility], states no preference on company. Pt is already active with wound clinic and has appt scheduled tomorrow. has been doing wound care at home and states has supplies already. Pt to get PICC line today and referral for iv antibx faxed to [facility] previously. This RN CM spoke to pt's on his cell while in room and updated her on all per pt request, 's questions answered at this time. would like for [facility] to call her cell phone to update on financials. Call to Diandra at [facility] [place] and she is updated on this as well as desire for pt to be discharged today, voices understanding. Diandra states that [employer] is working on referral at this time. also states no preference on [facility] agency at this time. Call to Alexia at [facility] to notify of referral and she states she will call this RN CM back once decision made. Pt/ voice no further questions/concerns/needs at this time. Sergio GUO CM
--- NOTE | 2020-06-15 11:24 | PCM.PN.ID ---
Patient Problems: Active and Suspected Problems (Last Reviewed 06/11/20 @ 13:[address] Huan Bradley, DO) Decubitus ulcer of foot, stage 3 (Acute) Infected ulcer of skin (Acute) Osteomyelitis of right foot (Acute) Dyspnea (Acute) History of angioplasty of peripheral vessel (Acute ~05/04/20) Ischemic cardiomyopathy (Acute) Subjective: Feeling ok, no fever, no n/v/d. - Physical Exam Vitals/I&O's: Vital Signs Temp Pulse Resp BP Pulse Ox 97.8 F 86 18 94/52 L 99 06/15/20 08:45 06/15/20 08:45 06/15/20 08:45 06/15/20 08:45 06/15/20 08:45 Oxygen Delivery Method Room Air Weight: 87.6 kg Body Mass Index (BMI) 31.0 Intake and Output for Last 24 Hours 06/13/20 06/14/20 06/15/20 23:59 23:59 23:59 Intake Total 2630 / 2630 1130.25 / 1250.25 1220 / 1220 Output Total 3025 / 3025 2300 / 2900 600 / 600 Balance -395 / -395 -1169.75 / -1649.75 620 / 620 General: Alert, Cooperative, No apparent distress Lungs: Clear to auscultation, Normal air movement Cardiovascular: Regular rate, Regular Rhythm Abdomen: Soft, Non Tender, Non-Distended Skin: Ulcer/ Wound - reviewed photo Microbiology Past 72 Hours 06/11/20 15:45 Discharge - Open/Non-Healing Wound Gram Stain - Final 06/11/20 15:45 Discharge - Open/Non-Healing Wound Wound Culture - Final Enterobacter cloacae complex Laboratory Results 06/14/20 06:00: Iron 201 H, TIBC 236 L, Iron Saturation 85.2 H, Folate 8.10 06/14/20 11:41: POC Glucose 234 H 06/14/20 13:44: POC Glucose 211 H 06/14/20 17:14: POC Glucose 344 H 06/14/20 17:36: Vancomycin Trough 21.1 H 06/14/20 17:36: Vitamin B12 637 06/14/20 21:58: POC Glucose 186 H 06/15/20 06:00: WBC 7.1, RBC 2.83 L, Hgb 9.0 L, Hct 27.3 L, MCV 96.5 H, MCH 31.8, MCHC 33.0, RDW Std Deviation 46.8 H, RDW Coeff of Jac 13.8, Plt Count 139 L, MPV 9.0 06/15/20 06:00: Sodium 139, Potassium 3.4 L, Chloride 100, Carbon Dioxide 32.0, Anion Gap 7, BUN 41 H, Creatinine 1.41 H, Estim Creat Clear Calc 42.11, Est GFR (MDRD) Af Amer 63, Est GFR (MDRD) Non-Af 52 L, BUN/Creatinine Ratio 29.1 H, Glucose 91, Calcium 8.1 L, Total Bilirubin 1.30 H, AST 17, ALT 31, Alkaline Phosphatase 77, Total Protein 6.0 L, Albumin 3.1 L, Globulin 2.9, Albumin/Globulin Ratio 1.1 06/15/20 06:00: Hemoglobin A1c 6.8 H 06/15/20 06:57: POC Glucose 90 Current Medications Acetaminophen (Acetaminophen 500 Mg Tablet) 1,000 mg PO TID PRN PRN Reason: PAIN OR TEMP Last Admin: 06/15/20 08:10 Dose: 1,000 mg Documented by: Aspirin (Aspirin E.C. 81 Mg Tablet) 81 mg PO DAILY@0800 [facility] Last Admin: 06/15/20 08:10 Dose: 81 mg Documented by: Clopidogrel Bisulfate (Clopidogrel Bisulfate 75 Mg Tablet) 75 mg PO DAILY [facility] Last Admin: 06/15/20 08:12 Dose: 75 mg Documented by: Dextrose (Dextrose 50%-Water 25 Gm/50 Ml Disp.Syrin) 0 gm IV X1 PRN; Protocol PRN Reason: Hypoglycemia Enoxaparin Sodium (Enoxaparin 40 Mg/0.4 Ml Syringe) 40 mg SC DAILY [facility] Last Admin: 06/15/20 08:10 Dose: 40 mg Documented by: Glucagon (Glucagon 1 Mg/Ml Syringe) 1 mg IM .X1 PRN PRN Reason: Hypoglycemia Piperacillin Sod/Tazobactam (Sod 3.375 gm/ Sodium Chloride) 50 mls @ 12.5 mls/hr IV Q8 [facility] Last Infusion: 06/15/20 10:00 Dose: Infused Documented by: Vancomycin IV Pharmacy to Dose (1 ea/ Sodium Chloride) 500 mls @ 250 mls/hr IV X1 PRN; Protocol PRN Reason: Rx to Dose Sodium Chloride () 250 mls @ 15 mls/hr IV .[id number] PRN PRN Reason: Saline Flush Last Infusion: 06/14/20 22:05 Dose: Infused Documented by: Sodium Chloride () 250 mls @ 15 mls/hr IV .[id number] PRN PRN Reason: Additional IVPB Infusion Last Infusion: 06/12/20 04:09 Dose: 0 mls/hr Documented by: Sodium Chloride () 1,000 mls @ 75 mls/hr IV .[id number] [facility] Last Admin: 06/15/20 01:22 Dose: 75 mls/hr Documented by: Insulin Glargine (Insulin Glargine 100 Units/Ml Pen) 15 units SC BID [facility] Last Admin: 06/15/20 08:10 Dose: 15 u Documented by: Insulin Human Lispro (Insulin Lispro 100 Unit/Ml Insuln.Pen) 0 unit SC TIDAC [facility]; Protocol Last Admin: 06/15/20 07:06 Dose: Not Given Documented by: Insulin Human Lispro (Insulin Lispro 100 Unit/Ml Insuln.Pen) 10 unit SC BREAKFAST [facility] Last Admin: 06/15/20 08:11 Dose: 10 u Documented by: Insulin Human Lispro (Insulin Lispro 100 Unit/Ml Insuln.Pen) 20 unit SC DINNER [facility] Last Admin: 06/14/20 17:22 Dose: 20 u Documented by: Metoprolol Succinate (Metoprolol(Xl)Succ 50 Mg Tablet) 50 mg PO DAILY [facility] Last Admin: 06/15/20 08:46 Dose: Not Given Documented by: Nutritional Formula (Lactose Free) (Glucerna Shake 120 Ml Liquid) 120 ml PO 4X/DAY [facility] Last Admin: 06/15/20 08:11 Dose: Not Given Documented by: Ondansetron HCl (Ondansetron 4 Mg/2 Ml Vial) 4 mg IV Q8H PRN PRN PRN Reason: NAUSEA/VOMITING Last Admin: 06/14/20 12:01 Dose: 4 mg Documented by: Oxycodone HCl (Oxycodone 5 Mg Tablet) 5 mg PO Q4H PRN PRN PRN Reason: pain Last Admin: 06/12/20 11:43 Dose: 5 mg Documented by: Pantoprazole Sodium (Pantoprazole Sodium 40 Mg Tablet) 40 mg PO DAILY [facility] Last Admin: 06/15/20 08:12 Dose: 40 mg Documented by: Pravastatin Sodium (Pravastatin 40 Mg Tablet) 40 mg PO QHS [facility] Last Admin: 06/14/20 22:01 Dose: 40 mg Documented by: Prednisone (Prednisone 5 Mg Tablet) 2.5 mg PO DAILY@0800 [facility] Last Admin: 06/15/20 08:10 Dose: 2.5 mg Documented by: Sodium Chloride (0.9% Saline Lock 10 Ml Syringe) 10 - 40 ml IV UD PRN PRN Reason: SALINE FLUSH Last Admin: 06/14/20 12:01 Dose: 10 ml Documented by: Medical Necessity - Tobacco Use Smoking Status: Former smoker Route of nutrition/ use of supplements: [] Nutritional Intake: [] IV Site: [] Wills Catheter: [] - Assessment/Plan Antibiotics: [] Assessment/Plan: [] Active and Suspected Problems (Last Reviewed 06/11/20 @ 13:[address] Huan Bradley, DO) Decubitus ulcer of foot, stage 3 (Acute) Infected ulcer of skin (Acute) Osteomyelitis of right foot (Acute) Dyspnea (Acute) History of angioplasty of peripheral vessel (Acute ~05/04/20) Ischemic cardiomyopathy (Acute) R foot osteo - seen on xray. Podiatry following. Wound cx here with enterobacter. On empiric vanc/zosyn. Has been on linezolid/cefdinir; most recent wound cx with enterobacter, MR-CoNS x2, e faecalis, and corynebacteria. Not surgical candidate per podiatry at this time, will order picc and plan on 6 week course of iv vanc and ertapenem, stop date 07/23/20, weekly bmp, cbc, LFT, esr, and vanc trough. ID followup in 2-3 weeks. Will need dose of erta x1 prior to discharge. covid pcr and Ab neg. Out of iso. Will follow. wrote rx, d/w case filler and primary team.
--- NOTE | 2020-06-15 11:56 | PCM.DC ---
- Discharge Diagnoses Current Active Problems: Current Active and Chronic Problems (Last Reviewed 06/11/20 @ 13:[address] 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) 2006, 2012 gen change History of coronary artery stent placement (Chronic ~03/2019) 3.0 x 12 mm Rebel BMS to pD1 03/27/19 Peripheral vascular disease due to secondary diabetes (Chronic) Coronary artery disease involving [place] coronary artery of [place] heart (Chronic) MAYS to LAD, SVG to PDA 10/2003; 3.0 x 12 mm Rebel BMS to pD1 03/27/19 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) You will use the following diet at home:: Calorie/Carbohydrate Controlled (specify 1200, 1400, etc) - 1800 yun / day, Cardiac Your food should be the consistency of: Regular Your liquids should be the consistency of: Regular/Thin Discharge Activity: Return to Normal Activity Weight Bearing Status: - - Ok to put weight on right foot, keep ulcer/wound right foot offloaded at all times Call your doctor if your incision/area has: Continuous Slow Oozing, Increased Redness, Foul Smelling Discharge Call your doctor if you observe: Fever of 101 or Higher Cleanse incision/area with: - - Wound care right foot ulcer/wound: Change dressing daily - Cleanse with normal saline solution, apply Aquacel Ag with overlying gauze, kerlix and milton dressing. Allergies/Adverse Reactions: Allergies amiodarone Allergy (Severe, Verified 06/09/20 12:51) pulmonary fibrosis sotalol Allergy (Severe, Verified 06/09/20 12:51) intolerant levofloxacin [From Levaquin] Allergy (Verified 06/09/20 12:51) Pain in joints LEG CRAMPING gabapentin Adverse Reaction (Verified 06/09/20 12:51) Diarrhea latex Adverse Reaction (Verified 06/09/20 12:51) Rash Medications to take at Discharge Oxycodone HCl/Acetaminophen [Percocet 5-325] 1 - 2 tab PO Q4H PRN PRN 03/17/15 acetaminophen 500 mg tablet 1,000 - 3,000 mg PO TID PRN tab 08/05/19 levothyroxine 200 mcg tablet 200 mcg PO DAILY 08/05/19 omeprazole 40 mg capsule,delayed release 40 mg PO DAILY 08/05/19 prednisone 2.5 mg tablet 2.5 mg PO DAILY 08/05/19 metoprolol succinate 50 mg tablet,extended release 24 hr 50 mg PO DAILY #90 tab 10/13/19 clopidogrel 75 mg tablet 75 mg PO DAILY #90 tab 11/10/19 lisinopril 2.5 mg tablet 2.5 mg PO DAILY #90 tab 11/10/19 pravastatin 40 mg tablet 40 mg PO QHS #90 tab 11/10/19 aspirin 81 mg tablet,delayed release 81 mg PO DAILY 12/17/19 Insulin Glargine,Hum.rec.anlog [Lantus] 15 unit SQ BID 06/09/20 Insulin Regular, Human [Novolin R] See Protocol SC QHS 06/09/20 Bumetanide 1 mg PO DAILY 06/11/20 Insulin Regular, Human [Novolin R] 10 units SC BREAKFAST 06/11/20 Insulin Regular, Human [Novolin R] 20 units SC DINNER 06/11/20 Ertapenem Sodium [Ertapenem] 1 gm IV DAILY #37 vial 06/15/20 Vancomycin/0.9 % Sod Chloride [Vanco 750 mg/250 ml-0.9% NaCl] 750 mg IV DAILY #37 plast..bag 06/15/20 The following prescriptions were given: Ertapenem Sodium [Ertapenem] 1 gm IV DAILY #37 vial Prescription Printed Vancomycin/0.9 % Sod Chloride [Vanco 750 mg/250 ml-0.9% NaCl] 750 mg IV DAILY #37 plast..bag Prescription Printed Primary Care Physician: Jcarols Glasgow MD [Primary Care Provider] - Please follow up with your Primary Care Physician in: 1-2 weeks Test Results: Test results from this visit will be discussed in further detail at your follow-up appointment, if applicable. Please Follow Up With: Dr. Agosto When: at [facility] as scheduled on 06/16/2020 Please Follow Up With: Chadd Glass MD When: 2-3 weeks Proposed Discharge Date: 06/15/20
--- NOTE | 2020-06-15 13:28 | DS.PCM_ITS ---
<Vahe Scott - Last Filed: 06/15/20 13:28> Discharge Date and Diagnosis - Problem List Patient Problems: Active and Suspected Problems (Last Reviewed 06/11/20 @ 13:[address] Huan Bradley DO) Decubitus ulcer of foot, stage 3 (Acute) Infected ulcer of skin (Acute) Osteomyelitis of right foot (Acute) Dyspnea (Acute) History of angioplasty of peripheral vessel (Acute ~05/04/20) Ischemic cardiomyopathy (Acute) Date of Admission: 06/11/20 Date of Discharge: 06/15/20 - Primary Discharge Diagnosis Acute Problems: Active Problems (Last Reviewed 06/11/20 @ 13:[address] Huan Bradley DO) Right foot osteomyelitis-Enterobacter cloaca complex Exertional dyspnea-suspect secondary to deconditioning and ongoing infectious process complicated by significant chronic heart disease, acute cardiac and pulmonary etiologies ruled out. - Secondary Discharge Diagnosis Chronic Problems: Chronic Problems (Last Reviewed 06/11/20 @ 13:[address] 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 CT/CTA Chest W/WO Contrast IMPRESSION: No evidence of pulmonary embolism. Stable examination. Stress test: Interpretation: Rest and stress SPECT Cardiolite nuclear imaging status post realignment, normalization, and attenuation correction demonstrate some radioisotope uptake in the apex, moderately decreased radioisotope uptake in the lateral wall in both the rest and stress images after attenuation correction. These findings are suggestive of prior WI involving this territory. There is also decreased radioisotope uptake in the inferior wall prior to attenuation correction that improves after attenuation correction suggestive of diaphragmatic attenuation artifact. Gated images reveal severe global hypokinesis. The reported LVEF is 19%. Impression: 1. There is no evidence of significant ischemia. There is evidence of prior apical and lateral myocardial infarction. 2. Estimated ejection fraction is 19%. Consultations Podiatry- Lucy Infectious disease - Maria Luisa 06/11/20 13:15 Consult: Onc/Wound/piece goods clerk Routine Comment: Operations: None Procedures: 2-D Echocardiogram, Stress test Summary of Care Provided: Hospital course: The patient is a 74 year old M past medical history notable for ischemic cardiomyopathy CAD with prior CABG x5, pacemaker and ICD in place history of right diaphragmatic paralysis, nonhealing diabetic wounds of the right foot, obstructive sleep apnea, who presented to the emergency room with complaints of exertional shortness of breath. He had been following with podiatry and infectious disease as an outpatient for osteomyelitis of the right fifth MTP. His EKG was negative, his chest x-ray was negative for acute process. He was not hypoxic on room air. Covid testing was negative. He was admitted with [facility] for cardiac equivalent with his dyspnea on exertion. He was placed on Vanco and Zosyn given his right foot osteomyelitis. Podiatry and infectious disease were consulted. Wound culture was obtained. The patient had a positive D-dimer so a CTA of the chest was ordered which was negative for pulmonary embolism. He underwent a stress test which was negative for acute ischemia. His dyspnea was felt to be secondary to his multiple chronic medical conditions complicated by his deconditioning due to his infection. His culture demonstrated Enterobacter cloacae. podiatry did not recommend surgical intervention at this time. Infectious disease recommended an extended course of IV antibiotics-vancomycin and ertapenem with a stop date of July 23 for a total of 6 weeks. This was arranged for him at discharge. He was discharged home in stable condition. He will need to follow-up with his PCP in 1 to 2 weeks, podiatry as directed, infectious disease in 2 to 3 weeks. He declined home health care at the time of discharge. This patient was seen by Vahe Scott PA-C under the supervision of Doctor Gr. [] Patient Problems: Active and Suspected Problems (Last Reviewed 12/11/20 @ 13:[address] Huan Bradley, DO) Decubitus ulcer of foot, stage 3 (Acute) Infected ulcer of skin (Acute) Osteomyelitis of right foot (Acute) Dyspnea (Acute) History of angioplasty of peripheral vessel (Acute ~05/04/20) Ischemic cardiomyopathy (Acute) - Physical Exam Vitals/I&O's: Vital Signs Temp Pulse Resp BP Pulse Ox 97.8 F 86 18 94/52 L 99 06/15/20 08:45 06/15/20 08:45 06/15/20 08:45 06/15/20 08:45 06/15/20 08:45 Oxygen Delivery Method Room Air Weight: 193 lb 1.999 oz Body Mass Index (BMI) 31.0 Intake and Output for Last 24 Hours 06/13/20 06/14/20 06/15/20 23:59 23:59 23:59 Intake Total 2630 / 2630 1130.25 / 1250.25 2060 / 2060 Output Total 3025 / 3025 2300 / 2900 975 / 975 Balance -395 / -395 -1169.75 / -1649.75 1085 / 1085 General: Alert, Oriented x3, Cooperative HEENT: Atraumatic, PERRLA, EOMI, Normocephalic Neck: Supple, No JVD, Negative Carotid Bruits Lungs: Clear to auscultation, Normal air movement Cardiovascular: Regular rate, No murmurs Abdomen: Bowel Sounds Present, Soft, Non Tender Extremities: No edema, Capillary Refill Less than 3 Seconds Skin: No rashes, No breakdown Musculoskeletal: No Tenderness to Palpation of Joints or Extremities Neurological: Cranial nerves II-XII grossly intact Psych/Mental Status: Normal Affect, Appropriate, Alert and oriented to time, place, person, mood and affect Microbiology Past 72 Hours 06/11/20 15:45 Discharge - Open/Non-Healing Wound Gram Stain - Final 06/11/20 15:45 Discharge - Open/Non-Healing Wound Wound Culture - Final Enterobacter cloacae complex Laboratory Results 06/14/20 13:44: POC Glucose 211 H 06/14/20 17:14: POC Glucose 344 H 06/14/20 17:36: Vancomycin Trough 21.1 H 06/14/20 17:36: Vitamin B12 637 06/14/20 21:58: POC Glucose 186 H 06/15/20 06:00: WBC 7.1, RBC 2.83 L, Hgb 9.0 L, Hct 27.3 L, MCV 96.5 H, MCH 31.8, MCHC 33.0, RDW Std Deviation 46.8 H, RDW Coeff of Jac 13.8, Plt Count 139 L, MPV 9.0 06/15/20 06:00: Sodium 139, Potassium 3.4 L, Chloride 100, Carbon Dioxide 32.0, Anion Gap 7, BUN 41 H, Creatinine 1.41 H, Estim Creat Clear Calc 42.11, Est GFR (MDRD) Af Amer 63, Est GFR (MDRD) Non-Af 52 L, BUN/Creatinine Ratio 29.1 H, Glucose 91, Calcium 8.1 L, Total Bilirubin 1.30 H, AST 17, ALT 31, Alkaline Phosphatase 77, Total Protein 6.0 L, Albumin 3.1 L, Globulin 2.9, Albumin/Globulin Ratio 1.1 06/15/20 06:00: Hemoglobin A1c 6.8 H 06/15/20 06:57: POC Glucose 90 Current Medications Acetaminophen (Acetaminophen 500 Mg Tablet) 1,000 mg PO TID PRN PRN Reason: PAIN OR TEMP Last Admin: 06/15/20 08:10 Dose: 1,000 mg Documented by: Aspirin (Aspirin E.C. 81 Mg Tablet) 81 mg PO DAILY@0800 [facility] Last Admin: 06/15/20 08:10 Dose: 81 mg Documented by: Clopidogrel Bisulfate (Clopidogrel Bisulfate 75 Mg Tablet) 75 mg PO DAILY [facility] Last Admin: 06/15/20 08:12 Dose: 75 mg Documented by: Dextrose (Dextrose 50%-Water 25 Gm/50 Ml Disp.Syrin) 0 gm IV X1 PRN; Protocol PRN Reason: Hypoglycemia Enoxaparin Sodium (Enoxaparin 40 Mg/0.4 Ml Syringe) 40 mg SC DAILY [facility] Last Admin: 06/15/20 08:10 Dose: 40 mg Documented by: Glucagon (Glucagon 1 Mg/Ml Syringe) 1 mg IM .X1 PRN PRN Reason: Hypoglycemia Piperacillin Sod/Tazobactam (Sod 3.375 gm/ Sodium Chloride) 50 mls @ 12.5 mls/hr IV Q8 [facility] Last Infusion: 06/15/20 10:00 Dose: Infused Documented by: Vancomycin IV Pharmacy to Dose (1 ea/ Sodium Chloride) 500 mls @ 250 mls/hr IV X1 PRN; Protocol PRN Reason: Rx to Dose Sodium Chloride () 250 mls @ 15 mls/hr IV .[id number] PRN PRN Reason: Saline Flush Last Infusion: 06/14/20 22:05 Dose: Infused Documented by: Sodium Chloride () 250 mls @ 15 mls/hr IV .[id number] PRN PRN Reason: Additional IVPB Infusion Last Infusion: 06/12/20 04:09 Dose: 0 mls/hr Documented by: Sodium Chloride () 1,000 mls @ 75 mls/hr IV .[id number] [facility] Last Admin: 06/15/20 01:22 Dose: 75 mls/hr Documented by: Insulin Glargine (Insulin Glargine 100 Units/Ml Pen) 15 units SC BID [facility] Last Admin: 06/15/20 08:10 Dose: 15 u Documented by: Insulin Human Lispro (Insulin Lispro 100 Unit/Ml Insuln.Pen) 0 unit SC TIDAC [facility]; Protocol Last Admin: 06/15/20 11:39 Dose: Not Given Documented by: Insulin Human Lispro (Insulin Lispro 100 Unit/Ml Insuln.Pen) 10 unit SC BREAKFAST [facility] Last Admin: 06/15/20 08:11 Dose: 10 u Documented by: Insulin Human Lispro (Insulin Lispro 100 Unit/Ml Insuln.Pen) 20 unit SC DINNER [facility] Last Admin: 06/14/20 17:22 Dose: 20 u Documented by: Metoprolol Succinate (Metoprolol(Xl)Succ 50 Mg Tablet) 50 mg PO DAILY [facility] Last Admin: 06/15/20 08:46 Dose: Not Given Documented by: Nutritional Formula (Lactose Free) (Glucerna Shake 120 Ml Liquid) 120 ml PO 4X/DAY [facility] Last Admin: 06/15/20 08:11 Dose: Not Given Documented by: Ondansetron HCl (Ondansetron 4 Mg/2 Ml Vial) 4 mg IV Q8H PRN PRN PRN Reason: NAUSEA/VOMITING Last Admin: 06/14/20 12:01 Dose: 4 mg Documented by: Oxycodone HCl (Oxycodone 5 Mg Tablet) 5 mg PO Q4H PRN PRN PRN Reason: pain Last Admin: 06/12/20 11:43 Dose: 5 mg Documented by: Pantoprazole Sodium (Pantoprazole Sodium 40 Mg Tablet) 40 mg PO DAILY [facility] Last Admin: 06/15/20 08:12 Dose: 40 mg Documented by: Pravastatin Sodium (Pravastatin 40 Mg Tablet) 40 mg PO QHS [facility] Last Admin: 06/14/20 22:01 Dose: 40 mg Documented by: Prednisone (Prednisone 5 Mg Tablet) 2.5 mg PO DAILY@0800 [facility] Last Admin: 06/15/20 08:10 Dose: 2.5 mg Documented by: Sodium Chloride (0.9% Saline Lock 10 Ml Syringe) 10 - 40 ml IV UD PRN PRN Reason: SALINE FLUSH Last Admin: 06/14/20 12:01 Dose: 10 ml Documented by: Discharge Diet: Low fat/ Low Cholesterol, 2000 mg Sodium Diet Discharge Activity: Return to Normal Activity Weight Bearing Status: - - Ok to put weight on right foot, keep ulcer/wound right foot offloaded at all times Call your doctor if your incision/area has: Continuous Slow Oozing, Increased Redness, Foul Smelling Discharge Call your doctor if you observe: Fever of 101 or Higher Cleanse incision/area with: - - Wound care right foot ulcer/wound: Change dressing daily - Cleanse with normal saline solution, apply Aquacel Ag with overlying gauze, kerlix and milton dressing. Home Medications: Medications to take at Discharge Oxycodone HCl/Acetaminophen [Percocet 5-325] 1 - 2 tab PO Q4H PRN PRN 03/17/15 acetaminophen 500 mg tablet 1,000 - 3,000 mg PO TID PRN tab 08/05/19 levothyroxine 200 mcg tablet 200 mcg PO DAILY 08/05/19 omeprazole 40 mg capsule,delayed release 40 mg PO DAILY 08/05/19 prednisone 2.5 mg tablet 2.5 mg PO DAILY 08/05/19 metoprolol succinate 50 mg tablet,extended release 24 hr 50 mg PO DAILY #90 tab 10/13/19 clopidogrel 75 mg tablet 75 mg PO DAILY #90 tab 11/10/19 lisinopril 2.5 mg tablet 2.5 mg PO DAILY #90 tab 11/10/19 pravastatin 40 mg tablet 40 mg PO QHS #90 tab 11/10/19 aspirin 81 mg tablet,delayed release 81 mg PO DAILY 12/17/19 Insulin Glargine,Hum.rec.anlog [Lantus] 15 unit SQ BID 06/09/20 Insulin Regular, Human [Novolin R] See Protocol SC QHS 06/09/20 Bumetanide 1 mg PO DAILY 06/11/20 Insulin Regular, Human [Novolin R] 10 units SC BREAKFAST 06/11/20 Insulin Regular, Human [Novolin R] 20 units SC DINNER 06/11/20 Ertapenem Sodium [Ertapenem] 1 gm IV DAILY #37 vial 06/15/20 Vancomycin/0.9 % Sod Chloride [Vanco 750 mg/250 ml-0.9% NaCl] 750 mg IV DAILY #37 plast..bag 06/15/20 Following Prescriptions Were Given to Patient: Ertapenem Sodium [Ertapenem] 1 gm IV DAILY #37 vial Prescription Printed Vancomycin/0.9 % Sod Chloride [Vanco 750 mg/250 ml-0.9% NaCl] 750 mg IV DAILY #37 plast..bag Prescription Printed Primary Care Physician: Jcarlos Glasgow MD [Primary Care Provider] - Please follow up with your Primary Care Physician in: 1-2 weeks Please Follow Up With: Dr. Agosto When: at [facility] as scheduled on 06/16/2020 Please Follow Up With: Chadd Glass MD When: 2-3 weeks Disposition: Home Minutes spent on discharge:: 35 Patient Condition:: Stable Medical Necessity - Tobacco Use Smoking Status: Former smoker Meaningful Use Info Meaningful Use Diagnoses (Choose all that apply): None applicable <Helena Gr - Last Filed: 06/15/20 14:41> Discharge Date and Diagnosis - Primary Discharge Diagnosis Acute Problems: Active Problems (Last Reviewed 06/11/20 @ 13:[address] Huan Bradley DO) Decubitus ulcer of foot, stage 3 (Acute) Infected ulcer of skin (Acute) Osteomyelitis of right foot (Acute) Dyspnea (Acute) History of angioplasty of peripheral vessel (Acute ~05/04/20) Ischemic cardiomyopathy (Acute) - Secondary Discharge Diagnosis Chronic Problems: Chronic Problems (Last Reviewed 06/11/20 @ 13:[address] 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 Chest x-ray was negative and EKG showed no acute ST changes. Covid test done was negative. He was admitted to concern for anginal equivalent with exertional shortness of breath. Of note, patient had also been following podiatry and ID on outpatient basis for osteomyelitis of the right fifth toe. He had a stress test done which showed evidence of prior apical and lateral wall WI but no evidence of significant ischemia and estimated EF of 19% which was similar to his known EF of 20 to 25% from 2D echo in 2019. D-dimer was elevated and CTA was done but this was negative for PE. Wound culture Enterobacter cloacae. Podiatry recommended conservative management for now and patient was placed on IV vancomycin and ertapenem for total of 6 weeks, with a stop date of july 23, 2019. He had a PICC line placed and is to have weekly CBC, BMP, LFT, ESR and vancomycin trough checked. He is to follow up with ID, PCP and podiatry. Patient seen and examined prior to discharge. He had no complaints. Review of systems was otherwise negative. Labs and vitals reviewed. Home meds reviewed and reconciled. O/E:] Vital Signs Temp Pulse Resp BP Pulse Ox 97.8 F 86 18 94/52 L 99 06/15/20 08:45 06/15/20 08:45 06/15/20 08:45 06/15/20 08:45 06/15/20 08:45 [] General: Alert, Oriented x3, Cooperative HEENT: Atraumatic, PERRLA, EOMI, Normocephalic Neck: Supple, No JVD, Negative Carotid Bruits Lungs: Clear to auscultation, Normal air movement Cardiovascular: Regular rate, No murmurs Abdomen: Bowel Sounds Present, Soft, Non Tender Extremities: No edema, Capillary Refill Less than 3 Seconds Skin: No rashes, No breakdown Musculoskeletal: No Tenderness to Palpation of Joints or Extremities, left AKA, RLE in bandage Neurological: Cranial nerves II-XII grossly intact Psych/Mental Status: Normal Affect, Appropriate, Alert and oriented to time, place, person, mood and affect Plan is for discharge home today, with IV vancomycin and ertapenem as above. Rest as per Vahe Scott PA-C's note, which I have reviewed and endorsed. - Physical Exam Vitals/I&O's: Vital Signs Temp Pulse Resp BP Pulse Ox 97.8 F 86 18 94/52 L 99 06/15/20 08:45 06/15/20 08:45 06/15/20 08:45 06/15/20 08:45 06/15/20 08:45 Oxygen Delivery Method Room Air Weight: 193 lb 1.999 oz Body Mass Index (BMI) 31.0 Intake and Output for Last 24 Hours 06/13/20 06/14/20 06/15/20 23:59 23:59 23:59 Intake Total 2630 / 2630 1130.25 / 1250.25 2060 / 2060 Output Total 3025 / 3025 2300 / 2900 975 / 975 Balance -395 / -395 -1169.75 / -1649.75 1085 / 1085 Microbiology Past 72 Hours 06/11/20 15:45 Discharge - Open/Non-Healing Wound Gram Stain - Final 06/11/20 15:45 Discharge - Open/Non-Healing Wound Wound Culture - Final Enterobacter cloacae complex Laboratory Results 06/14/20 17:14: POC Glucose 344 H 06/14/20 17:36: Vancomycin Trough 21.1 H 06/14/20 17:36: Vitamin B12 637 06/14/20 21:58: POC Glucose 186 H 06/15/20 06:00: WBC 7.1, RBC 2.83 L, Hgb 9.0 L, Hct 27.3 L, MCV 96.5 H, MCH 31.8, MCHC 33.0, RDW Std Deviation 46.8 H, RDW Coeff of Jac 13.8, Plt Count 139 L, MPV 9.0 06/15/20 06:00: Sodium 139, Potassium 3.4 L, Chloride 100, Carbon Dioxide 32.0, Anion Gap 7, BUN 41 H, Creatinine 1.41 H, Estim Creat Clear Calc 42.11, Est GFR (MDRD) Af Amer 63, Est GFR (MDRD) Non-Af 52 L, BUN/Creatinine Ratio 29.1 H, Glucose 91, Calcium 8.1 L, Total Bilirubin 1.30 H, AST 17, ALT 31, Alkaline Phosphatase 77, Total Protein 6.0 L, Albumin 3.1 L, Globulin 2.9, Albumin/Globu arlette Ratio 1.1 06/15/20 06:00: Hemoglobin A1c 6.8 H 06/15/20 06:57: POC Glucose 90 Current Medications Acetaminophen (Acetaminophen 500 Mg Tablet) 1,000 mg PO TID PRN PRN Reason: PAIN OR TEMP Last Admin: 06/15/20 08:10 Dose: 1,000 mg Documented by: Aspirin (Aspirin E.C. 81 Mg Tablet) 81 mg PO DAILY@0800 [facility] Last Admin: 06/15/20 08:10 Dose: 81 mg Documented by: Clopidogrel Bisulfate (Clopidogrel Bisulfate 75 Mg Tablet) 75 mg PO DAILY [facility] Last Admin: 06/15/20 08:12 Dose: 75 mg Documented by: Dextrose (Dextrose 50%-Water 25 Gm/50 Ml Disp.Syrin) 0 gm IV X1 PRN; Protocol PRN Reason: Hypoglycemia Enoxaparin Sodium (Enoxaparin 40 Mg/0.4 Ml Syringe) 40 mg SC DAILY [facility] Last Admin: 06/15/20 08:10 Dose: 40 mg Documented by: Glucagon (Glucagon 1 Mg/Ml Syringe) 1 mg IM .X1 PRN PRN Reason: Hypoglycemia Piperacillin Sod/Tazobactam (Sod 3.375 gm/ Sodium Chloride) 50 mls @ 12.5 mls/hr IV Q8 [facility] Last Admin: 06/15/20 13:45 Dose: 12.5 mls/hr Documented by: Vancomycin IV Pharmacy to Dose (1 ea/ Sodium Chloride) 500 mls @ 250 mls/hr IV X1 PRN; Protocol PRN Reason: Rx to Dose Sodium Chloride () 250 mls @ 15 mls/hr IV .[id number] PRN PRN Reason: Saline Flush Last Infusion: 06/14/20 22:05 Dose: Infused Documented by: Sodium Chloride () 250 mls @ 15 mls/hr IV .[id number] PRN PRN Reason: Additional IVPB Infusion Last Infusion: 06/12/20 04:09 Dose: 0 mls/hr Documented by: Sodium Chloride () 1,000 mls @ 75 mls/hr IV .[id number] [facility] Last Admin: 06/15/20 13:42 Dose: Not Given Documented by: Ertapenem 1 gm/ Sodium (Chloride) 60 mls @ 100 mls/hr IV X1 ONE Stop: 06/15/20 15:20 Insulin Glargine (Insulin Glargine 100 Units/Ml Pen) 15 units SC BID [facility] Last Admin: 06/15/20 08:10 Dose: 15 u Documented by: Insulin Human Lispro (Insulin Lispro 100 Unit/Ml Insuln.Pen) 0 unit SC TIDAC [facility]; Protocol Last Admin: 06/15/20 11:39 Dose: Not Given Documented by: Insulin Human Lispro (Insulin Lispro 100 Unit/Ml Insuln.Pen) 10 unit SC BREAKFAST [facility] Last Admin: 06/15/20 08:11 Dose: 10 u Documented by: Insulin Human Lispro (Insulin Lispro 100 Unit/Ml Insuln.Pen) 20 unit SC DINNER [facility] Last Admin: 06/14/20 17:22 Dose: 20 u Documented by: Metoprolol Succinate (Metoprolol(Xl)Succ 50 Mg Tablet) 50 mg PO DAILY [facility] Last Admin: 06/15/20 08:46 Dose: Not Given Documented by: Nutritional Formula (Lactose Free) (Glucerna Shake 120 Ml Liquid) 120 ml PO 4X/DAY [facility] Last Admin: 06/15/20 13:42 Dose: Not Given Documented by: Ondansetron HCl (Ondansetron 4 Mg/2 Ml Vial) 4 mg IV Q8H PRN PRN PRN Reason: NAUSEA/VOMITING Last Admin: 06/14/20 12:01 Dose: 4 mg Documented by: Oxycodone HCl (Oxycodone 5 Mg Tablet) 5 mg PO Q4H PRN PRN PRN Reason: pain Last Admin: 06/12/20 11:43 Dose: 5 mg Documented by: Pantoprazole Sodium (Pantoprazole Sodium 40 Mg Tablet) 40 mg PO DAILY [facility] Last Admin: 06/15/20 08:12 Dose: 40 mg Documented by: Pravastatin Sodium (Pravastatin 40 Mg Tablet) 40 mg PO QHS [facility] Last Admin: 06/14/20 22:01 Dose: 40 mg Documented by: Prednisone (Prednisone 5 Mg Tablet) 2.5 mg PO DAILY@0800 [facility] Last Admin: 06/15/20 08:10 Dose: 2.5 mg Documented by: Sodium Chloride (0.9% Saline Lock 10 Ml Syringe) 10 - 40 ml IV UD PRN PRN Reason: SALINE FLUSH Last Admin: 06/14/20 12:01 Dose: 10 ml Documented by: Inpatient E&M: [id number] Disch Hosp
[2020-06-15 14:25] LABS: Bedside Glucose 143 mg/dL (70-110)
[2020-06-15 14:45] VITALS: BP 97/48; PULSE 83; RESP 18; TEMP 36.4; O2SAT 92
[2020-06-15] MEDS: 0.9% Saline Lock 10 ML Syringe IV (14:45)
[2020-06-15 15:00] VITALS: PULSE 86
[2020-06-15 15:55] LABS: Vancomycin, Random Level 16.9 ug/mL (0.0-15.0)
--- NOTE | 2020-06-15 16:15 | RAD_ITS ---
STUDY: X-RAY CHEST REASON FOR EXAM: Male, 74 years old. PICC LINE PLACEMENT TECHNIQUE: AP portable view of the chest. COMPARISON: June 11, 2020. FINDINGS: PICC on the right extends to the superior vena cava. Pacemaker device on the left is stable. There is interstitial accentuation of the lungs. There is patchy right lower lung consolidation. There is no demonstrated pleural abnormality. Sternal cerclage wires are present from a prior sternotomy. Normal mediastinum and sandra. Normal visualized pulmonary arteries. Normal visualized aortic arch and descending thoracic aorta. Normal visualized thoracic spine. Normal visualized ribs, clavicles, and shoulders. There is no demonstrated abnormality of the visualized soft tissue structures of the upper abdomen. RAD/CXR for Line Placement IMPRESSION: PICC placement. Right lower lung infiltrate. Electronically Signed: Edwin Robles MD at 18:00 EST , Service support ,
--- NOTE | 2020-06-15 16:41 | PHA.PHARE_ITS ---
Consult Pharmacy has been consulted to manage selected antiobiotic: Vancomycin Type of Consult: Follow-up Suspected Infection: Osteomyelitis Prior Doses of Antibiotics Received/Current Regimen: Was on 500mg iv q12h. Labs: Sodium 139 mmol/L (136-145) 06/15/20 06:00 Potassium 3.4 mmol/L (3.5-5.1) L 06/15/20 06:00 Chloride 100 mmol/L (98-107) 06/15/20 06:00 Carbon Dioxide 32.0 mmol/L (21.0-32.0) 06/15/20 06:00 Anion Gap 7 (5-15) 06/15/20 06:00 BUN 41 mg/dL (7-18) H 06/15/20 06:00 Creatinine 1.41 mg/dL (0.70-1.30) H 06/15/20 06:00 Est GFR (MDRD) Af Amer 63 mL/min (>60) 06/15/20 06:00 Est GFR (MDRD) Non-Af 52 mL/min (>60) L 06/15/20 06:00 BUN/Creatinine Ratio 29.1 RATIO (10-20) H 06/15/20 06:00 Glucose 91 mg/dL (74-106) 06/15/20 06:00 Vancomycin Trough 21.1 ug/mL (5.0-15.0) H 06/14/20 17:36 Random Vancomycin 16.9 ug/mL (0.0-15.0) H 06/15/20 15:02 Microbiology: Microbiology 06/11/20 15:45 Discharge - Open/Non-Healing Wound Gram Stain - Final 06/11/20 15:45 Discharge - Open/Non-Healing Wound Wound Culture - Final Enterobacter cloacae complex Weight used for dosin.7 kg Estimated Creatinine Clearance: ~49ml/min Goal Trough: 15-20 mcg/mL Pharmacy Plan for Drug Dosing: Random level today @1502 was 16.9. Renal of Cr 1.41, improved from . of 1.62. Have entered order for 500mg iv q12h and will give one dose before discha rge. Pharmacy Service will continue to monitor and adjust dosing as required.
[2020-06-15] MEDS: Vancomycin IV 500 MG/100 ML BAG 100 MG IV (16:54)
[2020-06-15] MEDS: Insulin Lispro 100 UNIT/ML INSULN.PEN SC (17:30)
[2020-06-15] MEDS: Insulin Lispro 100 UNIT/ML INSULN.PEN 20 UNIT SC (17:30)
[2020-06-15 17:40] LABS: Bedside Glucose 225 mg/dL (70-110)
--- NOTE | 2020-06-16 15:00 | CASEMGMT ---
Addendum entered by Sarai Narvaez 06/17/20 15:33: Call to pt's at this time and she states pt has been 'doing ok' since discharge. Pt has OP infusions now set up daily at 0800. states pt has had decreased appetite since home. states no questions regarding discharge instructions/medications at this time. states pt does see PCP tomorrow. states no suggestions for WCH at this time. voices no further questions/concerns/needs at this time. Sergio GUO CM Original Note: [facility]I [facility] Discharge F/U Phone Call LACE: 13 Strata:3 Discharge date: 06/15/2020 Call deferred at this time as pt had wound clinic appt and infusion appt this afternoon. [facility] will f/u with pt 06/17/2020. Sergio GUO CM
== END 2020-06-15 18:37 | disposition home or self-care (01) | DRG 637 ==
LOC: ED 09:49 → PCU 06-12 10:08
PROVIDERS: Hospitalist; Internal Medicine Infectious Disease; Physician Assistant; Podiatrist; Podiatrist Foot & Ankle Surgery; Emergency Provider Emergency Medicine; PCP Family Medicine; Visit Provider Student in an Organized Health Care Education/Training Program
DX: E11.621 Type 2 diabetes mellitus with foot ulcer (principal); L89.893 Pressure ulcer of other site, stage 3; M86.671 Other chronic osteomyelitis, right ankle and foot; I13.0 Hypertensive heart and chronic kidney disease with heart failure and stage 1 through stage 4 chronic kidney disease, or unspecified chronic kidney disease; E11.69 Type 2 diabetes mellitus with other specified complication; L97.519 Non-pressure chronic ulcer of other part of right foot with unspecified severity; B96.89 Other specified bacterial agents as the cause of diseases classified elsewhere; G47.33 Obstructive sleep apnea (adult) (pediatric); E11.51 Type 2 diabetes mellitus with diabetic peripheral angiopathy without gangrene; E11.40 Type 2 diabetes mellitus with diabetic neuropathy, unspecified; I25.10 Atherosclerotic heart disease of native coronary artery without angina pectoris; E11.22 Type 2 diabetes mellitus with diabetic chronic kidney disease; N18.30 Chronic kidney disease, stage 3 unspecified; D63.1 Anemia in chronic kidney disease; I50.9 Heart failure, unspecified; I25.5 Ischemic cardiomyopathy; J44.9 Chronic obstructive pulmonary disease, unspecified; J98.6 Disorders of diaphragm; R53.81 Other malaise; R79.1 Abnormal coagulation profile; I25.2 Old myocardial infarction; Z95.1 Presence of aortocoronary bypass graft; Z95.5 Presence of coronary angioplasty implant and graft; Z95.810 Presence of automatic (implantable) cardiac defibrillator; Z89.512 Acquired absence of left leg below knee; Z99.81 Dependence on supplemental oxygen; Z79.899 Other long term (current) drug therapy; Z87.891 Personal history of nicotine dependence; Z79.82 Long term (current) use of aspirin; Z79.02 Long term (current) use of antithrombotics/antiplatelets; Z79.4 Long term (current) use of insulin; Z79.890 Hormone replacement therapy; Z23 Encounter for immunization
CPT/HCPCS: 11042; 36415; 36569; 71045; 71275; 78452; 80048; 80053; 80202; 82607; 82746; 82962; 83036; 83540; 83550; 83735; 83880; 84484; 85025; 85027; 85379; 85652; 86140; 86769; 87070; 87077; 87186; 87205; 87635; 93005; 93017; 94002; 97116; 97162; 97166; 97535; 99284; 99285; A9500; G0008; J7030; J7040; J7050; Q9967; 90686; A4216; J2405; J2785; U0002

== ENCOUNTER → 2020-06-16 14:58 | Outpatient (CLI) | payer MEDICARE, OTHER, SELFPAY ==
[2020-06-11 13:43] VITALS: BMI 31.0
[2020-06-16 13:50] VITALS: BMI 27.1
[2020-06-16] MEDS: 0.9% NaCl PICC Flush IV ×2 (15:18→17:27)
[2020-06-16 15:30] VITALS: BP 110/69; PULSE 89; RESP 16; TEMP 36.3; O2SAT 100; BMI 31.4
[2020-06-16] MEDS: 0.9% NaCl IVPB Med Flush (250 mL) 15 ML IV (15:32)
[2020-06-16 15:33] LABS: Hematocrit 28.4 % (40-54); Hemoglobin 9.4 g/dL (13.0-16.5); Mean Corp Hgb Conc 33.1 g/dL (32-36); Mean Corpuscular Hgb 32.2 pg (27.0-32.0); Mean Corpuscular Volume 97.3 fL (80-94); Mean Platelet Vol. 8.8 fl (6.2-12.0); Platelet Count 135 K/mm3 (150-450); RBC Distribution Width CV 13.8 % (11.6-14.6); RBC Distribution Width SD 46.7 fl (35.1-43.9); Red Blood Count 2.92 M/mm3 (4.6-6.2); White Blood Count 7.8 K/mm3 (4.4-11.0)
[2020-06-16 15:47] LABS: Erythrocyte Sedimentation Rate 5 mm/hr (0-20)
[2020-06-16 16:02] LABS: AST(SGOT) 13 U/L (15-37); Alanine Aminotransfer ALT/SGPT 30 U/L (16-61); Albumin, Serum 3.4 g/dL (3.2-5.0); Alkaline Phosphatase 86 U/L (45-117); Anion Gap 5 (5-15); BUN 21 mg/dL (7-18); BUN/Creat Ratio 23.5 RATIO (10-20); Bilirubin, Direct 0.44 mg/dL (0.00-0.30); Calcium,Total 8.7 mg/dL (8.5-10.1); Chloride 99 mmol/L (98-107); Creatinine, Serum 0.89 mg/dL (0.70-1.30); EST Glomerular Filtration Rate 89 mL/min (>60); Est Glom Filt Rate - Afr Amer 107 mL/min (>60); Estimated Creatinine Clearance 66.71 ml/min; Globulin 3.3 g/dL (2.2-4.2); Glucose 223 mg/dL (74-106); Potassium 3.9 mmol/L (3.5-5.1); Protein, Total 6.7 g/dL (6.4-8.2); Sodium Level 137 mmol/L (136-145)
[2020-06-16 17:55] VITALS: BP 110/67; PULSE 70; RESP 16; TEMP 36.4; O2SAT 95
[2020-06-16 23:28] LABS: Xtra Tube EP Lab EXTRA TUBE
== END ==
PROVIDERS: PCP Family Medicine; Referring Provider Internal Medicine Infectious Disease; Visit Provider Internal Medicine Infectious Disease
DX: M86.9 Osteomyelitis, unspecified (principal); L97.514 Non-pressure chronic ulcer of other part of right foot with necrosis of bone
CPT/HCPCS: 96365; 96367; 11044; 80048; 80076; 85027; 85652; 87015; 87070; 87075; 87077; 87101; 87116; 87176; 87186; 87205; 87206; 88304; 88311; J7050; A4216

== ENCOUNTER → 2020-06-17 12:50 | Outpatient (CLI) | payer MEDICARE, OTHER, SELFPAY ==
[2020-06-11 13:43] VITALS: BMI 31.0
[2020-06-16 15:42] VITALS: BMI 31.4
[2020-06-17 13:20] VITALS: BP 121/77; PULSE 46; RESP 18; TEMP 36.7; O2SAT 96
[2020-06-17] MEDS: 0.9% NaCl IVPB Med Flush (250 mL) 15 ML IV (13:21)
[2020-06-17] MEDS: 0.9% NaCl PICC Flush IV ×2 (13:24→15:48)
[2020-06-17 15:45] VITALS: BP 118/50; PULSE 85; RESP 16; O2SAT 96
== END ==
PROVIDERS: PCP Family Medicine; Referring Provider Internal Medicine Infectious Disease; Visit Provider Internal Medicine Infectious Disease
DX: M86.9 Osteomyelitis, unspecified (principal)
CPT/HCPCS: 96365; 96367; 96372; J7050; A4216

== ENCOUNTER → 2020-06-18 10:01 | Outpatient (CLI) | payer MEDICARE, OTHER, SELFPAY ==
[2020-06-16 15:42] VITALS: BMI 31.4
[2020-06-18] MEDS: 0.9% NaCl PICC Flush IV ×2 (10:23→12:31)
[2020-06-18] MEDS: 0.9% NaCl IVPB Med Flush (250 mL) 15 ML IV (10:25)
[2020-06-18 10:34] VITALS: BP 102/42; PULSE 86; RESP 16; TEMP 36.1; O2SAT 99; BMI 31.4
[2020-06-18 12:52] VITALS: BP 102/52; PULSE 86; RESP 16; TEMP 36.3; O2SAT 99
== END ==
PROVIDERS: PCP Family Medicine; Referring Provider Internal Medicine Infectious Disease; Visit Provider Internal Medicine Infectious Disease
DX: M86.9 Osteomyelitis, unspecified (principal)
CPT/HCPCS: 96365; 96367; J7050; A4216

== ENCOUNTER → 2020-06-19 10:56 | Outpatient (CLI) | payer MEDICARE, OTHER, SELFPAY ==
[2020-06-16 15:31] VITALS: BMI 31.0
[2020-06-18 10:34] VITALS: BMI 31.4
[2020-06-19] MEDS: 0.9% NaCl PICC Flush IV ×2 (07:47→10:22)
[2020-06-19] MEDS: 0.9% NaCl IVPB Med Flush (250 mL) 15 ML IV (07:47)
[2020-06-19 07:55] VITALS: BP 109/47; PULSE 94; RESP 16; TEMP 35.5; O2SAT 99; BMI 31.4
[2020-06-19 10:20] VITALS: BP 109/47; PULSE 94; RESP 16; TEMP 35.9; O2SAT 99
== END ==
PROVIDERS: PCP Family Medicine; Referring Provider Internal Medicine Infectious Disease; Visit Provider Internal Medicine Infectious Disease
DX: M86.9 Osteomyelitis, unspecified (principal)
CPT/HCPCS: 96365; 96367; J7050; A4216

== ENCOUNTER → 2020-06-20 07:59 | Outpatient (CLI) | payer MEDICARE, OTHER, SELFPAY ==
[2020-06-16 15:31] VITALS: BMI 31.0
[2020-06-19 07:55] VITALS: BMI 31.4
[2020-06-20] MEDS: 0.9% NaCl PICC Flush IV ×2 (08:06→10:19)
[2020-06-20] MEDS: 0.9% NaCl IVPB Med Flush (250 mL) 15 ML IV (08:06)
[2020-06-20 08:08] VITALS: BP 109/55; PULSE 84; TEMP 35.5; BMI 26.4
== END ==
PROVIDERS: PCP Family Medicine; Referring Provider Internal Medicine Infectious Disease; Visit Provider Internal Medicine Infectious Disease
DX: M86.9 Osteomyelitis, unspecified (principal)
CPT/HCPCS: 96365; 96367; J7050; A4216

== ENCOUNTER → 2020-06-21 07:55 | Outpatient (CLI) | payer MEDICARE, OTHER, SELFPAY ==
[2020-06-16 15:31] VITALS: BMI 31.0
[2020-06-20 08:08] VITALS: BMI 26.4
[2020-06-21] MEDS: 0.9% NaCl IVPB Med Flush (250 mL) 15 ML IV (08:03)
[2020-06-21] MEDS: 0.9% NaCl PICC Flush IV ×2 (08:03→10:21)
[2020-06-21 08:06] VITALS: BP 110/54; PULSE 87; RESP 16; TEMP 36.2; O2SAT 99; BMI 26.4
[2020-06-21 10:20] VITALS: BP 112/59; PULSE 81; RESP 16; TEMP 36.3; O2SAT 99
== END ==
PROVIDERS: PCP Family Medicine; Referring Provider Internal Medicine Infectious Disease; Visit Provider Internal Medicine Infectious Disease
DX: M86.9 Osteomyelitis, unspecified (principal)
CPT/HCPCS: 96365; 96367; J7050; A4216

== ENCOUNTER → 2020-06-22 07:52 | Outpatient (CLI) | payer MEDICARE, OTHER, SELFPAY ==
[2020-06-16 15:31] VITALS: BMI 31.0
[2020-06-21 08:06] VITALS: BMI 26.4
[2020-06-22] MEDS: 0.9% NaCl PICC Flush IV (08:07)
[2020-06-22 08:10] VITALS: BP 116/50; PULSE 86; RESP 16; TEMP 35.7; O2SAT 100; BMI 26.4
[2020-06-22 10:26] VITALS: BP 102/61; PULSE 71; O2SAT 99
== END ==
PROVIDERS: PCP Family Medicine; Referring Provider Internal Medicine Infectious Disease; Visit Provider Internal Medicine Infectious Disease
DX: M86.9 Osteomyelitis, unspecified (principal)
CPT/HCPCS: 96365; 96367; J7040; J7050; A4216

== ENCOUNTER → 2020-06-23 07:54 | Outpatient (CLI) | payer MEDICARE, OTHER, SELFPAY ==
[2020-06-16 15:31] VITALS: BMI 31.0
[2020-06-22 08:10] VITALS: BMI 26.4
[2020-06-23 08:15] VITALS: BP 108/54; PULSE 85; RESP 16; TEMP 36.1; O2SAT 97; BMI 27.1
[2020-06-23] MEDS: 0.9% NaCl PICC Flush IV (08:32)
[2020-06-23] MEDS: 0.9% NaCl IVPB Med Flush (250 mL) 15 ML IV (08:37)
[2020-06-23 08:51] LABS: Hematocrit 30.2 % (40-54); Hemoglobin 9.5 g/dL (13.0-16.5); Mean Corp Hgb Conc 31.5 g/dL (32-36); Mean Corpuscular Hgb 31.9 pg (27.0-32.0); Mean Corpuscular Volume 101.3 fL (80-94); Mean Platelet Vol. 8.9 fl (6.2-12.0); Platelet Count 216 K/mm3 (150-450); RBC Distribution Width CV 15.5 % (11.6-14.6); RBC Distribution Width SD 55.3 fl (35.1-43.9); Red Blood Count 2.98 M/mm3 (4.6-6.2); White Blood Count 6.5 K/mm3 (4.4-11.0)
[2020-06-23 08:53] LABS: Erythrocyte Sedimentation Rate 8 mm/hr (0-20)
[2020-06-23 08:59] LABS: AST(SGOT) 24 U/L (15-37); Alanine Aminotransfer ALT/SGPT 32 U/L (16-61); Albumin, Serum 3.4 g/dL (3.2-5.0); Alkaline Phosphatase 95 U/L (45-117); Anion Gap 4 (5-15); BUN 21 mg/dL (7-18); BUN/Creat Ratio 26.7 RATIO (10-20); Bilirubin, Direct 0.34 mg/dL (0.00-0.30); Calcium,Total 8.3 mg/dL (8.5-10.1); Chloride 105 mmol/L (98-107); Creatinine, Serum 0.79 mg/dL (0.70-1.30); EST Glomerular Filtration Rate 102 mL/min (>60); Est Glom Filt Rate - Afr Amer 124 mL/min (>60); Estimated Creatinine Clearance 70.07 ml/min; Globulin 3.2 g/dL (2.2-4.2); Glucose 67 mg/dL (74-106); Potassium 3.7 mmol/L (3.5-5.1); Protein, Total 6.6 g/dL (6.4-8.2); Sodium Level 140 mmol/L (136-145)
[2020-06-23 09:08] LABS: Vancomycin, Trough Level 9.4 ug/mL (5.0-15.0)
[2020-06-23 11:10] VITALS: BP 108/54; PULSE 85; TEMP 36.1
[2020-06-23 16:39] LABS: Xtra Tube EP Lab EXTRA TUBE
== END ==
PROVIDERS: PCP Family Medicine; Referring Provider Internal Medicine Infectious Disease; Visit Provider Internal Medicine Infectious Disease
DX: M86.9 Osteomyelitis, unspecified (principal); L97.514 Non-pressure chronic ulcer of other part of right foot with necrosis of bone
CPT/HCPCS: 96365; 96367; 11042; 36592; 80048; 80076; 80202; 85027; 85652; J7050; A4216

== ENCOUNTER → 2020-06-24 07:55 | Outpatient (CLI) | payer MEDICARE, OTHER, SELFPAY ==
[2020-06-16 15:31] VITALS: BMI 31.0
[2020-06-23 13:42] VITALS: BMI 27.1
[2020-06-24 08:09] VITALS: BP 108/56; PULSE 91; RESP 16; TEMP 35.9; O2SAT 95; BMI 27.1
[2020-06-24] MEDS: 0.9% NaCl IVPB Med Flush (250 mL) 15 ML IV (08:13)
[2020-06-24] MEDS: 0.9% NaCl PICC Flush IV ×2 (08:13→10:34)
[2020-06-24 10:34] VITALS: BP 109/47; PULSE 67; RESP 16; O2SAT 98
== END ==
PROVIDERS: PCP Family Medicine; Referring Provider Internal Medicine Infectious Disease; Visit Provider Internal Medicine Infectious Disease
DX: M86.9 Osteomyelitis, unspecified (principal)
CPT/HCPCS: 96365; 96367; J7050; A4216

== ENCOUNTER 2020-06-25 08:10 | Outpatient (CLI) | payer MEDICARE, OTHER, SELFPAY ==
[2020-06-16 15:31] VITALS: BMI 31.0
[2020-06-24 08:09] VITALS: BMI 27.1
[2020-06-25] MEDS: 0.9% NaCl IVPB Med Flush (250 mL) 15 ML IV (08:35)
[2020-06-25] MEDS: 0.9% NaCl PICC Flush IV ×2 (08:36→10:43)
[2020-06-25 08:55] VITALS: BP 106/51; PULSE 72; RESP 16; TEMP 36.7; O2SAT 98
[2020-06-25 10:42] VITALS: BP 115/60; PULSE 83; RESP 16; TEMP 36.4; O2SAT 96
== END 2020-06-25 10:50 | disposition home or self-care (01) ==
LOC: MEDOUTP 08:11 → PCU 08:19
PROVIDERS: PCP Family Medicine; Referring Provider Internal Medicine Infectious Disease; Visit Provider Internal Medicine Infectious Disease
DX: M86.9 Osteomyelitis, unspecified (principal)
CPT/HCPCS: 96365; 96367; J7050; A4216

== ENCOUNTER 2020-06-26 08:00 | Outpatient (CLI) | payer MEDICARE, OTHER, SELFPAY ==
[2020-06-16 15:31] VITALS: BMI 31.0
[2020-06-24 08:09] VITALS: BMI 27.1
[2020-06-26] MEDS: 0.9% NaCl PICC Flush IV ×2 (08:20→10:26)
[2020-06-26] MEDS: 0.9% NaCl IVPB Med Flush (250 mL) 15 ML IV (08:26)
== END 2020-06-26 10:29 | disposition home or self-care (01) ==
LOC: MEDOUTP 08:00 → PCU 08:01
PROVIDERS: PCP Family Medicine; Referring Provider Internal Medicine Infectious Disease; Visit Provider Internal Medicine Infectious Disease
DX: M86.9 Osteomyelitis, unspecified (principal)
CPT/HCPCS: 96365; 96367; J7050; A4216

== ENCOUNTER 2020-06-27 07:56 | Outpatient (CLI) | payer MEDICARE, OTHER, SELFPAY ==
[2020-06-16 15:31] VITALS: BMI 31.0
[2020-06-24 08:09] VITALS: BMI 27.1
[2020-06-27 08:34] VITALS: BP 111/58; PULSE 106; RESP 18; TEMP 35.8; O2SAT 99
== END 2020-06-27 10:36 | disposition home or self-care (01) ==
LOC: MEDOUTP 07:56 → PCU 07:57
PROVIDERS: PCP Family Medicine; Referring Provider Internal Medicine Infectious Disease; Visit Provider Internal Medicine Infectious Disease
DX: M86.9 Osteomyelitis, unspecified (principal)
CPT/HCPCS: 96365; 96367; J7050

== ENCOUNTER → 2020-06-28 | Outpatient (CLI) | payer MEDICARE, OTHER, SELFPAY ==
[2020-06-16 15:31] VITALS: BMI 31.0
[2020-06-24 08:09] VITALS: BMI 27.1
[2020-06-28] MEDS: 0.9% NaCl IVPB Med Flush (250 mL) 15 ML IV (08:06)
[2020-06-28] MEDS: 0.9% NaCl PICC Flush IV ×2 (08:07→10:22)
[2020-06-28 08:14] VITALS: BP 108/59; PULSE 68; RESP 16; TEMP 35.8; O2SAT 96; BMI 27.1
== END | disposition home or self-care (01) ==
LOC: MEDOUTP 07:53
PROVIDERS: PCP Family Medicine; Referring Provider Internal Medicine Infectious Disease; Visit Provider Internal Medicine Infectious Disease
DX: M86.9 Osteomyelitis, unspecified (principal)
CPT/HCPCS: 96365; 96367; J7050; A4216

== ENCOUNTER → 2020-06-29 07:33 | Outpatient (CLI) | payer MEDICARE, OTHER, SELFPAY ==
[2020-06-16 15:31] VITALS: BMI 31.0
[2020-06-28 08:14] VITALS: BMI 27.1
[2020-06-29] MEDS: 0.9% NaCl IVPB Med Flush (250 mL) 15 ML IV (07:59)
[2020-06-29] MEDS: 0.9% NaCl PICC Flush IV ×2 (07:59→10:00)
[2020-06-29 08:04] VITALS: BP 111/79; PULSE 55; RESP 16; TEMP 36; O2SAT 96; BMI 27.1
== END ==
PROVIDERS: PCP Family Medicine; Referring Provider Internal Medicine Infectious Disease; Visit Provider Internal Medicine Infectious Disease
DX: M86.9 Osteomyelitis, unspecified (principal)
CPT/HCPCS: 96365; 96367; J7050; A4216

== ENCOUNTER → 2020-06-30 08:01 | Outpatient (CLI) | payer MEDICARE, OTHER, SELFPAY ==
[2020-06-16 15:31] VITALS: BMI 31.0
[2020-06-29 08:04] VITALS: BMI 27.1
[2020-06-30] MEDS: 0.9% NaCl PICC Flush IV ×3 (08:16→11:18)
[2020-06-30 08:17] VITALS: BP 119/64; PULSE 104; RESP 16; TEMP 35.9; O2SAT 99; BMI 27.1
[2020-06-30 08:48] LABS: AST(SGOT) 27 U/L (15-37); Alanine Aminotransfer ALT/SGPT 53 U/L (16-61); Albumin, Serum 3.5 g/dL (3.2-5.0); Alkaline Phosphatase 112 U/L (45-117); Anion Gap 6 (5-15); BUN 17 mg/dL (7-18); BUN/Creat Ratio 19.2 RATIO (10-20); Bilirubin, Direct 0.37 mg/dL (0.00-0.30); Calcium,Total 8.6 mg/dL (8.5-10.1); Chloride 104 mmol/L (98-107); Creatinine, Serum 0.89 mg/dL (0.70-1.30); EST Glomerular Filtration Rate 89 mL/min (>60); Est Glom Filt Rate - Afr Amer 108 mL/min (>60); Estimated Creatinine Clearance 78.73 ml/min; Globulin 3.3 g/dL (2.2-4.2); Glucose 170 mg/dL (74-106); Potassium 3.6 mmol/L (3.5-5.1); Protein, Total 6.8 g/dL (6.4-8.2); Sodium Level 140 mmol/L (136-145)
[2020-06-30] MEDS: 0.9% NaCl IVPB Med Flush (250 mL) 15 ML IV (08:50)
[2020-06-30 09:37] LABS: Erythrocyte Sedimentation Rate 4 mm/hr (0-20)
[2020-06-30 09:40] LABS: Hematocrit 31.8 % (40-54); Hemoglobin 10.1 g/dL (13.0-16.5); Mean Corp Hgb Conc 31.8 g/dL (32-36); Mean Corpuscular Hgb 33.1 pg (27.0-32.0); Mean Corpuscular Volume 104.3 fL (80-94); Mean Platelet Vol. 9.2 fl (6.2-12.0); Platelet Count 193 K/mm3 (150-450); RBC Distribution Width CV 15.5 % (11.6-14.6); RBC Distribution Width SD 56.4 fl (35.1-43.9); Red Blood Count 3.05 M/mm3 (4.6-6.2); White Blood Count 6.2 K/mm3 (4.4-11.0)
[2020-06-30 11:21] VITALS: BP 117/58; PULSE 79; RESP 16; TEMP 36.4; O2SAT 96
[2020-06-30 16:30] LABS: Xtra Tube EP Lab EXTRA TUBE
== END ==
PROVIDERS: PCP Family Medicine; Referring Provider Internal Medicine Infectious Disease; Visit Provider Internal Medicine Infectious Disease
DX: M86.9 Osteomyelitis, unspecified (principal); E11.621 Type 2 diabetes mellitus with foot ulcer; L89.893 Pressure ulcer of other site, stage 3; I25.5 Ischemic cardiomyopathy; I25.10 Atherosclerotic heart disease of native coronary artery without angina pectoris; E11.42 Type 2 diabetes mellitus with diabetic polyneuropathy; E11.51 Type 2 diabetes mellitus with diabetic peripheral angiopathy without gangrene; I70.209 Unspecified atherosclerosis of native arteries of extremities, unspecified extremity; Z89.431 Acquired absence of right foot
CPT/HCPCS: 96365; 96367; 11042; 36592; 80048; 80076; 80202; 85027; 85652; J7050; A4216

== ENCOUNTER 2020-06-30 13:00 | Outpatient (RCR) | payer MEDICARE, OTHER, SELFPAY ==
[2020-06-01 00:43] VITALS: BP 101/47; PULSE 91; RESP 16; TEMP 36.1
[2020-06-02 10:39] VITALS: BP 107/62; PULSE 90; RESP 18; TEMP 35.6; BMI 27.1
--- NOTE | 2020-06-02 11:34 | PCM.WC.PN ---
(1) Infected ulcer of skin Status: Acute Code(s): L98.499 - Non-pressure chronic ulcer of skin of other sites with unspecified severity; L08.9 - Local infection of the skin and subcutaneous tissue, unspecified (2) Decubitus ulcer of foot, stage 3 Status: Acute Qualifiers: Code(s): L89.893 - Pressure ulcer of other site, stage 3 (3) Ischemic cardiomyopathy Status: Acute Code(s): I25.5 - Ischemic cardiomyopathy (4) Diabetes mellitus type 2 with atherosclerosis of arteries of extremities Status: Chronic Code(s): E11.59 - Type 2 diabetes mellitus with other circulatory complications; I70.209 - Unspecified atherosclerosis of [place] arteries of extremities, unspecified extremity Type of Wound Date of Service: 06/02/20 Chief Complaint: Follow-up right lateral diabetic foot ulcer History of Wound: 74-year-old white male with a left BK amp right partial amp of the right foot states for about a month the right leg has not been feeling well meaning he felt something was not right. Went to see his therapist for his leg limbs and she told him he need to get a shoe right away for the right foot. Within days the right lateral foot opened up with a hole on the right lateral metatarsal. Patient states last hemoglobin A1c was 2 months ago and has around 6. Progress of Wound: Today the hole on the lateral aspect of the right foot is the same size as last week. They had problems with the snap VAC on Sunday and managed to make it till Sunday but lost pressure on Sunday and patient's been not doing dressing changes but leaving the dressing on and so became macerated around the wound base. We will apply a snap wound VAC to the area today and follow-up on Sunday for reapplication.. Cultures came back positive for many bacteria will be started on a couple of antibiotics. Patient is also going to start wearing a new boot so his foot does not slide around. - Physical Exam Vital Signs Temp Pulse Resp BP 96.0 F L 90 18 107/62 06/02/20 10:39 06/02/20 10:39 06/02/20 10:39 06/02/20 10:39 General: Oriented x3, Cooperative, Well developed HEENT: Atraumatic, PERRLA Oral: Moist Mucosa Neck: Supple, No JVD Lungs: Clear to auscultation, Normal air movement Cardiovascular: Regular rate, Regular Rhythm Abdomen: Bowel Sounds Present, Soft, Non Tender, No Hepato-splenomegaly Extremities: No clubbing, No edema Skin: Ulcer/ Wound - Decubitus ulcer right lateral foot Wound Measurements and Assessment WC - Nurse 1 - General Ulcer Measurement Start: 06/02/20 10:28 Freq: Status: Active Protocol: Activity Type Activity Date Activity User E-Sign Co-Sign Detail Recorded Client Recorded Date Recorded By Document 06/02/20 10:39 MT [id number] 06/02/20 10:45 MT 06/02/20 10:39 Wound Center Nurse 1 [Ulcer Assessment] #3- R LAT FOOT -Current Size (cm) - Length 1.1 -Current Size (cm) - Width 1.1 -Current Size (cm) - Depth 0.5 -Total Square Cm 1.21 -Tunneling Yes -Tunneling Position (O'clock) 5 -Tunneling Distance (cm) 2.5 -Granulation Amt Large (67-100%) -Granulation Quality Pale,[place] -Necrosis Amt Small (1-33%) -Necrotic Tissue Type Adherent Slough -Texture (Allison-wound Skin Appearance) Assessed -Moisture (Allison-wound Skin Appearance Assessed, ) Maceration -Color (Allison-wound Skin Appearance) Assessed -Temperature (Allison-wound Skin No Abnormality Appearance) (Pt Warm) -Tenderness on Palpation (Allison-wound No Skin Appearance) -Ulcer Cleansing Wound Cleanser -Foul Odor after Cleansing No -Anesthetic Used 4% Lidocaine Solution [Edema Assessment] -Lower Limb Edema Present Yes -Right Calf (cm) 39.5 -Right Ankle (cm) 26.5 WC - Nurse 2 - General Ulcer CM Notes Start: 06/02/20 10:28 Freq: Status: Active Protocol: Activity Type Activity Date Activity User E-Sign Co-Sign Detail Recorded Client Recorded Date Recorded By Document 06/02/20 10:53 MW [id number] 06/02/20 10:55 MW 06/02/20 10:53 Wound Center Nurse 2 [Procedure/Treatment] #3- R LAT FOOT -Time 10:53 -Correct Patient Yes -Correct Side, Site, Position Yes -Correct Procedure Yes -Procedure Performed Yes -Type of Procedure Debridement -Clinical Debridement Subcutaneous -Tissue Removed Subcutaneous -Post Debridement (cm) - Length 0.8 -Post Debridement (cm) - Width 0.7 -Post Debridement (cm) - Depth 0.4 -Total Square (Post) (cm) 0.56 -Area of Debridement (cm) - Length 0.8 -Area of Debridement (cm) - Width 0.7 -Total Square (Area) (cm) 0.56 -Tunneling No -Undermining/Tunneling No -Circular Undermining No -Wound/Ulcer Outcome Not Healed -Ulcer Cleansing Rinsed/ Irrigated with Saline -Foul Odor after Cleansing No -Bioengineered Tissue No -Bleeding Controlled with Pressure -Offloading No -Treatment Response Procedure Tolerated Well -Debridement - Subq, 1st 20sq cm Yes [See Physician Procedure note for Specifics] Pain Scale: 0-10 Numeric [Pain] -Is Patient Pain Free? Yes WC - Nurse 3 - General Ulcer D/C NN Start: 06/02/20 10:28 Freq: Status: Active Protocol: Activity Type Activity Date Activity User E-Sign Co-Sign Detail Recorded Client Recorded Date Recorded By Document 06/02/20 11:06 MT [id number] 06/02/20 11:08 [place] 06/02/20 11:06 Wound Care Nurse 3 [Wound Dressing] #3- R LAT FOOT -Negative Pressure Wound Therapy Start -Negative Pressure is Continuous -Primary Dressing Applied Aquacel AG 4x4, Other -Other Dressing SNAP -Primary Dressing Covered/Secured Dry Gauze, with Secured with Tape -NPWT Application Charge ($) NPWT </= 50 sq cm -Aquacel AG 4x4 1 Musculoskeletal: No Tenderness to Palpation of Joints or Extremities Lymphatic: No Cervical, Supraclavicular, or Inguinal Adenopathy Neurological: Cranial nerves II-XII grossly intact, Neuro grossly intact Psych/Mental Status: Normal Affect, Appropriate Debridement Note Post-Debridement Measurements/Treatment WC - Nurse 2 - General Ulcer CM Notes Start: 06/02/20 10:28 Freq: Status: Active Protocol: Activity Type Activity Date Activity User E-Sign Co-Sign Detail Recorded Client Recorded Date Recorded By Document 06/02/20 10:53 MW [id number] 06/02/20 10:55 MW 06/02/20 10:53 Wound Center Nurse 2 #3- R LAT FOOT -Time 10:53 -Correct Patient Yes -Correct Side, Site, Position Yes -Correct Procedure Yes -Procedure Performed Yes -Type of Procedure Debridement -Clinical Debridement Subcutaneous -Tissue Removed Subcutaneous -Post Debridement (cm) - Length 0.8 -Post Debridement (cm) - Width 0.7 -Post Debridement (cm) - Depth 0.4 -Total Square (Post) (cm) 0.56 -Area of Debridement (cm) - Length 0.8 -Area of Debridement (cm) - Width 0.7 -Total Square (Area) (cm) 0.56 -Tunneling No -Undermining/Tunneling No -Circular Undermining No -Wound/Ulcer Outcome Not Healed -Ulcer Cleansing Rinsed/ Irrigated with Saline -Foul Odor after Cleansing No -Bioengineered Tissue No -Bleeding Controlled with Pressure -Offloading No -Treatment Response Procedure Tolerated Well -Debridement - Subq, 1st 20sq cm Yes Pain Scale: 0-10 Numeric Is Patient Pain Free? Yes WC - Nurse 3 - General Ulcer D/C NN Start: 06/02/20 10:28 Freq: Status: Active Protocol: Activity Type Activity Date Activity User E-Sign Co-Sign Detail Recorded Client Recorded Date Recorded By Document 06/02/20 11:06 FL [id number] 06/02/20 11:08 FL 06/02/20 11:06 Wound Care Nurse 3 #3- R LAT FOOT -Negative Pressure Wound Therapy Start -Negative Pressure is Continuous -Primary Dressing Applied Aquacel AG 4x4, Other -Other Dressing SNAP -Primary Dressing Covered/Secured with Dry Gauze, Secured with Tape -NPWT Application Charge ($) NPWT </= 50 sq cm -Aquacel AG 4x4 1 Wound debrided: Right lateral foot decubitus ulcer Wound Grade/Stage: Stage III Type of Debridement: Excisional debridement Anesthesia Used: 5% Lidocaine Gel Depth: Down to and including healthy tissue, in the subcutaneous layer Percentage of wound debrided: 100 Instrument Used: 7mm curette, - - Iris scissors Tissue Removed: Macerated skin and fibrin Severity: Fat Layer Exposed - Bone exposed we will get x-ray Amount of bleeding with debridement: Mild Bleeding Controlled with: Compression and gauze Patient tolerated procedure well Assessment/Plan Assessment: Right DFU. Coronary artery disease. Diabetes with insulin dependency. Poly neuropathy. Infected decubitus ulcer Plan: Wound VAC to right lateral foot. Prescription written for boot for right foot. Continue antibiotic therapy that was written. Continue start metronidazole 250 3 times daily x14 days #42. Follow-up Sunday for nurse visit. THEN the following Sunday. No up in 1 week
--- NOTE | 2020-06-02 11:37 | RAD_ITS ---
STUDY: X-RAY - RIGHT FOOT CLINICAL: Diabetic lateral foot ulcer, evaluate for osteomyelitis. TECHNIQUE: 3 view(s) of the foot. COMPARISON: None. FINDINGS: There are posterior and plantar calcaneal enthesophytes. There is no active bone destruction of the tarsal bones of the hindfoot or midfoot. Normal visualized subtalar, talonavicular, calcaneocuboid, tarsal and tarsometatarsal articulations. 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 On the oblique view there is erosion of the lateral cortex of the remaining fifth metatarsal. There is a soft tissue ulcer at the lateral aspect of the amputation stump and soft tissue swelling. There is vascular calcification. RAD/Foot min 3 Views IMPRESSION: Erosion of the lateral aspect of the amputated fifth metatarsal, suspected osteomyelitis. Soft tissue swelling and ulcer. Electronically Signed: Payam Early MD at 12:43 EST Tel , Service support ,
[2020-06-04 14:19] VITALS: BP 129/59; PULSE 104; RESP 16; TEMP 36.1; BMI 27.1
[2020-06-09 10:25] VITALS: BP 142/60; PULSE 98; RESP 18; TEMP 36.1
--- NOTE | 2020-06-09 12:31 | PCM.WC.PN ---
(1) Infected ulcer of skin Status: Acute Code(s): L98.499 - Non-pressure chronic ulcer of skin of other sites with unspecified severity; L08.9 - Local infection of the skin and subcutaneous tissue, unspecified (2) Decubitus ulcer of foot, stage 3 Status: Acute Qualifiers: Code(s): L89.893 - Pressure ulcer of other site, stage 3 (3) Ischemic cardiomyopathy Status: Acute Code(s): I25.5 - Ischemic cardiomyopathy (4) Diabetes mellitus type 2 with atherosclerosis of arteries of extremities Status: Chronic Code(s): E11.59 - Type 2 diabetes mellitus with other circulatory complications; I70.209 - Unspecified atherosclerosis of [place] arteries of extremities, unspecified extremity (5) Osteomyelitis of right foot Status: Acute Code(s): M86.9 - Osteomyelitis, unspecified Type of Wound Date of Service: 06/09/20 Chief Complaint: Follow-up right lateral diabetic foot ulcer History of Wound: 74-year-old white male with a left BK amp right partial amp of the right foot states for about a month the right leg has not been feeling well meaning he felt something was not right. Went to see his therapist for his leg limbs and she told him he need to get a shoe right away for the right foot. Within days the right lateral foot opened up with a hole on the right lateral metatarsal. Patient states last hemoglobin A1c was 2 months ago and has around 6. Progress of Wound: Today the hole on the lateral aspect of the right foot is slightly smaller in size and less macerated this week. We discontinued the snap VAC at this point and are just using Fibracol to the wound base Cultures came back positive for many bacteria will be started on a couple of antibiotics. Patient is also going to start wearing a new boot so his foot does not slide around. 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 History of osteomyelitis in the same foot. Refer to infectious disease and referred over to Dr. Park for further evaluation and treatment. Patient complaining of shortness of breath for the last 2 weeks wondered if it was the antibiotics. Blood pressure has been noted to be going up weekly higher and higher and pulse rate suggested we go back to the emergency room and check him for a pulmonary embolus. Patient was sent to the emergency room after his appointment. Patient pulse ox at 97% here in the wound center pulse was 102 - Physical Exam Vital Signs Temp Pulse Resp BP 97 F L 98 18 142/60 H 06/09/20 10:25 06/09/20 10:25 06/09/20 10:25 06/09/20 10:25 General: Oriented x3, Cooperative, Well developed HEENT: Atraumatic, PERRLA Oral: Moist Mucosa Neck: Supple, No JVD Lungs: Clear to auscultation, Normal air movement Cardiovascular: Regular rate, Regular Rhythm Abdomen: Bowel Sounds Present, Soft, Non Tender, No Hepato-splenomegaly Extremities: No clubbing, No edema Skin: Ulcer/ Wound - Right lateral foot ulcer which now has osteomyelitis Wound Measurements and Assessment WC - Nurse 1 - General Ulcer Measurement Start: 06/02/20 10:28 Freq: Status: Active Protocol: Activity Type Activity Date Activity User E-Sign Co-Sign Detail Recorded Client Recorded Date Recorded By Document 06/09/20 10: HARRISON [id number] 06/09/20 10: RB 06/09/20 10:25 Wound Center Nurse 1 [Ulcer Assessment] #3- R LAT FOOT -Combined with other wound No -Current Size (cm) - Length 0.7 -Current Size (cm) - Width 0.5 -Current Size (cm) - Depth 0.4 -Total Square Cm 0.35 -Tunneling No -Undermining/Tunneling Yes -Undermining/Tunneling Starts (O' 1 clock) -Undermining/Tunneling Ends (O'clock) 5 -Maximum Distance (cm) 0.7 -Circular Undermining No -Exudate Amt Small -Exudate Type Serosanguineous -Wound Margin Thickened -Granulation Amt Medium (34-66%) -Granulation Quality [place] -Slough/Fibrin Yes -Necrosis Amt Small (1-33%) -Structure Exposed N/A -Texture (Allison-wound Skin Appearance) Assessed -Moisture (Allison-wound Skin Appearance Assessed ) -Color (Allison-wound Skin Appearance) Assessed -Temperature (Allison-wound Skin No Abnormality Appearance) (Pt Warm) -Tenderness on Palpation (Allison-wound No Skin Appearance) -Ulcer Cleansing Wound Cleanser -Foul Odor after Cleansing No -Anesthetic Used 4% Lidocaine Solution WC - Nurse 2 - General Ulcer CM Notes Start: 06/02/20 10:28 Freq: Status: Active Protocol: Activity Type Activity Date Activity User E-Sign Co-Sign Detail Recorded Client Recorded Date Recorded By Document 06/09/20 10:38 MW [id number] 06/09/20 10:54 MW 06/09/20 10:38 Wound Center Nurse 2 [Procedure/Treatment] -Time 10:40 -Correct Patient Yes -Correct Side, Site, Position Yes -Correct Procedure Yes -Procedure Performed Yes -Type of Procedure Debridement -Clinical Debridement Subcutaneous -Tissue Removed Subcutaneous -Post Debridement (cm) - Length 1.1 -Post Debridement (cm) - Width 0.9 -Post Debridement (cm) - Depth 0.6 -Total Square (Post) (cm) 0.99 -Area of Debridement (cm) - Length 1.1 -Area of Debridement (cm) - Width 0.9 -Total Square (Area) (cm) 0.99 -Tunneling No -Undermining/Tunneling No -Circular Undermining No -Wound/Ulcer Outcome Not Healed -Ulcer Cleansing Rinsed/ Irrigated with Saline -Foul Odor after Cleansing No -Bioengineered Tissue No -Bleeding Controlled with Pressure -Offloading No -Treatment Response Procedure Tolerated Well -Debridement - Subq, 1st 20sq cm Yes [See Physician Procedure note for Specifics] Pain Scale: 0-10 Numeric [Pain] -Is Patient Pain Free? Yes - Nurse 3 - General Ulcer D/C NN Start: 06/02/20 10:28 Freq: Status: Active Protocol: Activity Type Activity Date Activity User E-Sign Co-Sign Detail Recorded Client Recorded Date Recorded By Document 06/09/20 11:21 MW [id number] 06/09/20 11:22 MW 06/09/20 11:21 Wound Care Nurse 3 [Wound Dressing] #3- R LAT FOOT -Ulcer Cleansing Rinsed/ Irrigated with Saline -Foul Odor after Cleansing No -Primary Dressing Applied Fibracol Plus 4x4 -Primary Dressing Covered/Secured Dry Gauze & with Roll Gauze -Fibracol Plus 4x4 1 Pain Scale: 0-10 Numeric [Pain] -Is Patient Pain Free? Yes - Visit Discharge [Visit Discharge Information] -Discharge Condition Stable -Ambulatory Status Ambulatory,Cane -Transportation Private Auto -Accompanied by Musculoskeletal: No Tenderness to Palpation of Joints or Extremities Lymphatic: No Cervical, Supraclavicular, or Inguinal Adenopathy Neurological: Cranial nerves II-XII grossly intact, Neuro grossly intact Psych/Mental Status: Normal Affect, Appropriate Debridement Note Post-Debridement Measurements/Treatment WC - Nurse 2 - General Ulcer CM Notes Start: 06/02/20 10:28 Freq: Status: Active Protocol: Activity Type Activity Date Activity User E-Sign Co-Sign Detail Recorded Client Recorded Date Recorded By Document 06/02/20 10:53 MW [id number] 06/02/20 10:55 MW Document 06/09/20 10:38 MW [id number] 06/09/20 10:54 MW 06/02/20 06/09/20 10:53 10:38 Wound Center Nurse 2 #3- R LAT FOOT -Time 10:53 10:40 -Correct Patient Yes Yes -Correct Side, Site, Position Yes Yes -Correct Procedure Yes Yes -Procedure Performed Yes Yes -Type of Procedure Debridement Debridement -Clinical Debridement Subcutaneous Subcutaneous -Tissue Removed Subcutaneous Subcutaneous -Post Debridement (cm) - Length 0.8 1.1 -Post Debridement (cm) - Width 0.7 0.9 -Post Debridement (cm) - Depth 0.4 0.6 -Total Square (Post) (cm) 0.56 0.99 -Area of Debridement (cm) - Length 0.8 1.1 -Area of Debridement (cm) - Width 0.7 0.9 -Total Square (Area) (cm) 0.56 0.99 -Tunneling No No -Undermining/Tunneling No No -Circular Undermining No No -Wound/Ulcer Outcome Not Healed Not Healed -Ulcer Cleansing Rinsed/ Rinsed/ Irrigated with Irrigated with Saline Saline -Foul Odor after Cleansing No No -Bioengineered Tissue No No -Bleeding Controlled with Pressure Pressure -Offloading No No -Treatment Response Procedure Procedure Tolerated Well Tolerated Well -Debridement - Subq, 1st 20sq cm Yes Yes Pain Scale: 0-10 Numeric Is Patient Pain Free? Yes Yes - Nurse 3 - General Ulcer D/C NN Start: 06/02/20 10:28 Freq: Status: Active Protocol: Activity Type Activity Date Activity User E-Sign Co-Sign Detail Recorded Client Recorded Date Recorded By Document 06/02/20 11:06 MT [id number] 06/02/20 11:08 MT Document 06/04/20 14:19 [facility] [id number] 06/04/20 14:21 BMF Document 06/09/20 11:21 MW [id number] 06/09/20 11:22 MW 06/02/20 06/04/20 06/09/20 11:06 14:19 11:21 Wound Care Nurse 3 #3- R LAT FOOT -Ulcer Cleansing SOAPY WATER Rinsed/ Irrigated with Saline -Foul Odor after Cleansing No No -Negative Pressure Wound Therapy Start -Negative Pressure is Continuous -Primary Dressing Applied Aquacel AG 4x4, Fibracol Plus Fibracol Plus Other 4x4 4x4 -Other Dressing SNAP -Primary Dressing Covered/Secured with Dry Gauze, Dry Gauze & Dry Gauze & Secured with Roll Gauze, Roll Gauze Tape Secured with Tape -NPWT Application Charge ($) NPWT </= 50 sq cm (disp) -Aquacel AG 4x4 1 -Fibracol Plus 4x4 1 1 Right -Compression Wrap Jem Wrap Treatment Response Procedure Tolerated Well Vital Signs Temperature (97.8 F-99.1 F) 97 F L Temperature Source Temporal Pulse Rate (60-100 beats/min) 104 H Pulse Location Monitor Respiratory Rate (12-18 breaths/min) 16 Respiratory rate source Observation Oxygen Delivery Method Room Air Blood Pressure (90/60-120/80 mm Hg) 129/59 H Blood Pressure Mean (mm Hg) 82 Source Monitor Position Sitting Blood Pressure Location Right Arm Pain Scale: 0-10 Numeric Is Patient Pain Free? Yes Yes WC - Visit Discharge Discharge Condition Stable Stable Ambulatory Status Ambulatory,Cane Ambulatory,Cane Transportation Private Auto Private Auto Accompanied by Wound debrided: Lateral foot ulcer Laterality: Right Type of Debridement: Excisional debridement Anesthesia Used: 5% Lidocaine Gel Depth: Down to and including healthy tissue, in the subcutaneous layer Percentage of wound debrided: 100 Tissue Removed: Fibrin and slough Severity: Necrosis of Bone Amount of bleeding with debridement: Mild Bleeding Controlled with: Compression and gauze Patient tolerated procedure well Assessment/Plan Clinical Impression(s) from Imaging Studies Foot X-Ray 06/02/20 11:37 IMPRESSION: Erosion of the lateral aspect of the amputated fifth metatarsal, suspected osteomyelitis. Soft tissue swelling and ulcer. Electronically Signed: Payam Early MD at 12:43 EST Tel , Service support , Active Problems (Last Reviewed 05/10/20 @ 15:[address] Jovana Singh MD) Decubitus ulcer of foot, stage 3 (Acute) Infected ulcer of skin (Acute) Ischemic cardiomyopathy (Acute) 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) Assessment: Right DFU. Coronary artery disease. Diabetes with insulin dependency. Poly neuropathy. Infected decubitus ulcer. Osteomyelitis right foot Plan: Start Fibracol to right lateral foot ulcer moistened with gauze and Jesus pad with ABD before putting in boot. Prescription written for boot for right foot. Continue antibiotic therapy that was written finish antibiotic therapy. Continue start metronidazole 250 3 times daily x14 days #42. Follow-up next week at the wound center with infectious disease and Dr. Park with transfer of care to her. Directly to the emergency room for increasing shortness of breath and rule out a pulmonary embolus. No up in 1 week
--- NOTE | 2020-06-16 | BON_PTH ---
PATIENT: KURT JEONG LOC: U#:[id number] AGE/SX: 74/M ROOM: RE06/30/[address]: SHIMA Martinez : 1945 BED: DIS: 07/01/2020 SPEC #: [id number] RECD: 06/16/20 14:37 STATUS: RAHUL REKelsea #: [id number] ALVARO: 06/16/20 00:[address]: Luciana Gerardo NP DEPT: SURGICAL PATHOLOGY RECD BY: Hiren Glasgow ENTERED: 06/17/20 09:15 SP TYPE: Bone OTHR DR: Dr. Jcarlos Glasgow MD Tissues: Bone of foot, NOS Procedures: Decalcification bone/plaque Surgery Specimen Level III HEADER OPERATION: Debridement of right bone PRE-OP DIAGNOSIS: Histopathological assessment TISSUE SUBMITTED: Fifth metatarsal bone MICROSCOPIC DIAGNOSIS Fifth metatarsal bone: Pieces of bone with reactive changes, negative for acute osteomyelitis. SJ:julieta 06/21/20 MICROSCOPIC DESCRIPTION Slides are reviewed. GROSS DESCRIPTION Received in fixative is one container labeled with the patient's name and designated right lateral foot bone biopsy. The specimen consists of multiple irregular fragments of sheridan bone that in aggregate measure 1.3 x 1 x 0.2 cm. The specimen is totally submitted in one cassette after decalcification. / AM:julieta 06/17/20 TC:5 CPT: 17600, 19747
[2020-06-16 13:50] VITALS: BP 127/70; PULSE 111; RESP 18; TEMP 35.9; BMI 27.1
[2020-06-16 15:02] VITALS: BP 125/70
--- NOTE | 2020-06-16 19:47 | PN.PCM_ITS ---
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 Code(s): L97.514 - Non-pressure chronic ulcer of other part of right foot with necrosis of bone (2) Malnutrition Status: Acute Code(s): E46 - Unspecified protein-calorie malnutrition (3) Amputation of right foot Status: Acute Qualifiers: Encounter type: sequela Qualified Code(s): S98.911S - Complete traumatic amputation of right foot, level unspecified, sequela Code(s): S98.911A - Complete traumatic amputation of right foot, level unspecified, initial encounter Comment: transmetatarsal amputation (4) Ischemic cardiomyopathy Status: Chronic Code(s): I25.5 - Ischemic cardiomyopathy (5) Osteomyelitis of right foot Status: Chronic Code(s): M86.9 - Osteomyelitis, unspecified (6) Peripheral vascular disease due to secondary diabetes Status: Chronic Code(s): E13.51 - Other specified diabetes mellitus with diabetic peripheral angiopathy without gangrene Type of Wound Date of Service: 06/16/20 Chief Complaint: Follow-up right lateral diabetic foot ulcer History of Wound: 74-year-old white male with a left BK amp and right transmetatarsal amp follows up for ulcer of lateral foot. He was recently hospitalized and treated for osteomyelitis of the right foot that has exposed bone and radiographic changes. He denies pain. He denies fever, chills, nausea, vomiting. His family member is helping him change his dressings daily with aquacel ag. He is scheduled to go to the infusion center this afternoon for IV antibiotics. He takes boost nutritional supplements and is concerned this is contributing to glucose level elevation. He wears a CAM walker to mild ambulation at home to use the restroom, ect. He has a left BKA and asks if he should adjust his prosthetic leg device to make his left limb longer. Progress of Wound: stable - Physical Exam Vital Signs Temp Pulse Resp BP 96.6 F L 111 H 18 125/70 H 06/16/20 13:50 06/16/20 13:50 06/16/20 13:50 06/16/20 15:02 General: Alert, Oriented x3, Cooperative, No apparent distress HEENT: Atraumatic Extremities: No cyanosis, No edema, Capillary Refill Less than 3 Seconds, No Calf Tenderness - negative crystal and oseguera sign, right, Diminished Peripheral Pulses Skin: Ulcer/ Wound - skin discontinuity with exposed fifth metatarsal bone that is firm. there is no purulence, odor, necrosis, erythema, streaking or maceration noted. adjacent skin is hairless and atrophic Wound Measurements and Assessment WC - Nurse 1 - General Ulcer Measurement Start: 06/02/20 10:28 Freq: Status: Active Protocol: Activity Type Activity Date Activity User E-Sign Co-Sign Detail Recorded Client Recorded Date Recorded By Document 06/16/20 13:50 RB [id number] 06/16/20 13:51 RB 06/16/20 13:50 Wound Center Nurse 1 [Ulcer Assessment] #3- R LAT FOOT -Combined with other wound No -Current Size (cm) - Length 0.8 -Current Size (cm) - Width 0.6 -Current Size (cm) - Depth 0.4 -Total Square Cm 0.48 -Tunneling No -Undermining/Tunneling Yes -Undermining/Tunneling Starts (O' 4 clock) -Undermining/Tunneling Ends (O'clock) 8 -Maximum Distance (cm) 0.8 -Circular Undermining No -Exudate Amt Medium -Exudate Type Serosanguineous -Wound Margin Thickened & Rolled Under -Granulation Amt Medium (34-66%) -Granulation Quality [place] -Slough/Fibrin Yes -Necrosis Amt Medium (34-66%) -Necrotic Tissue Type Adherent Slough -Structure Exposed N/A -Texture (Allison-wound Skin Appearance) Assessed,Callus -Moisture (Allison-wound Skin Appearance Assessed ) -Color (Allison-wound Skin Appearance) Assessed -Temperature (Allison-wound Skin No Abnormality Appearance) (Pt Warm) -Tenderness on Palpation (Allison-wound No Skin Appearance) -Ulcer Cleansing Wound Cleanser -Foul Odor after Cleansing No -Anesthetic Used 4% Lidocaine Solution WC - Nurse 2 - General Ulcer CM Notes Start: 06/02/20 10:28 Freq: Status: Active Protocol: Activity Type Activity Date Activity User E-Sign Co-Sign Detail Recorded Client Recorded Date Recorded By Document 06/16/20 14:02 ISAURA [id number] 06/16/20 14:20 ISAURA 06/16/20 14:02 Wound Center Nurse 2 [Procedure/Treatment] -Time 14:03 -Correct Patient Yes -Correct Side, Site, Position Yes -Correct Procedure Yes -Procedure Performed Yes -Type of Procedure Debridement -Clinical Debridement Bone -Tissue Removed Tendon -Post Debridement (cm) - Length 1 -Post Debridement (cm) - Width 1 -Post Debridement (cm) - Depth 1 -Total Square (Post) (cm) 1 -Area of Debridement (cm) - Length 1 -Area of Debridement (cm) - Width 1 -Total Square (Area) (cm) 1 -Tunneling No -Undermining/Tunneling No -Circular Undermining No -Wound/Ulcer Outcome Not Healed -Ulcer Cleansing Rinsed/ Irrigated with Saline -Foul Odor after Cleansing No -Bioengineered Tissue No -Bleeding Controlled with Pressure -Offloading Yes -Type of Offloading Camwalker -Treatment Response Procedure Tolerated Well -Debridement - Bone, 1st 20sq cm Yes [See Physician Procedure note for Specifics] Pain Scale: 0-10 Numeric [Pain] -Is Patient Pain Free? Yes - Nurse 3 - General Ulcer D/C NN Start: 06/02/20 10:28 Freq: Status: Active Protocol: Activity Type Activity Date Activity User E-Sign Co-Sign Detail Recorded Client Recorded Date Recorded By Document 06/16/20 15:02 [id number] 06/16/20 15:03 06/16/20 15:02 Wound Care Nurse 3 [Wound Dressing] #3- R LAT FOOT -Other Dressing moistened saline gauze -Primary Dressing Covered/Secured Dry Gauze,Dry with Gauze & Roll Gauze,Secured with Tape [Compression Applied] Right -Other jem [Post Procedure Tolerated] -Treatment Response Procedure Tolerated Well Vital Signs [Blood Pressure] -Blood Pressure (90/60-120/80) 125/70 H -Blood Pressure Mean (mm Hg) 88 -Source Monitor -Position Semi-Fowlers -Blood Pressure Location Left Arm Pain Scale: 0-10 Numeric [Pain] -Is Patient Pain Free? Yes - Visit Discharge [Visit Discharge Information] -Discharge Condition Stable -Ambulatory Status Wheelchair -Transportation Private Auto -Accompanied by -Medication Reconcilliation completed No & provided to patient/care provider -Clinical Summary of Care Provided Yes Musculoskeletal: No Tenderness to Palpation of Joints or Extremities, Muscle Wasting, Tenderness - mild discomfort with debridement of wound today that included prominent bone Neurological: - - lack of epicritic sensation via light touch consistent with neuropathy Psych/Mental Status: Normal Affect, Appropriate Debridement Note Post-Debridement Measurements/Treatment WC - Nurse 2 - General Ulcer CM Notes Start: 06/02/20 10:28 Freq: Status: Active Protocol: Activity Type Activity Date Activity User E-Sign Co-Sign Detail Recorded Client Recorded Date Recorded By Document 06/02/20 10:53 MW [id number] 06/02/20 10:55 MW Document 06/09/20 10:38 MW [id number] 06/09/20 10:54 MW Document 06/16/20 14:02 JF [id number] 06/16/20 14:20 JF 06/02/20 06/09/20 06/16/20 10:53 10:38 14:02 Wound Center Nurse 2 #3- R LAT FOOT -Time 10:53 10:40 14:03 -Correct Patient Yes Yes Yes -Correct Side, Site, Position Yes Yes Yes -Correct Procedure Yes Yes Yes -Procedure Performed Yes Yes Yes -Type of Procedure Debridement Debridement Debridement -Clinical Debridement Subcutaneous Subcutaneous Bone -Tissue Removed Subcutaneous Subcutaneous Tendon -Post Debridement (cm) - Length 0.8 1.1 1 -Post Debridement (cm) - Width 0.7 0.9 1 -Post Debridement (cm) - Depth 0.4 0.6 1 -Total Square (Post) (cm) 0.56 0.99 1 -Area of Debridement (cm) - Length 0.8 1.1 1 -Area of Debridement (cm) - Width 0.7 0.9 1 -Total Square (Area) (cm) 0.56 0.99 1 -Tunneling No No No -Undermining/Tunneling No No No -Circular Undermining No No No -Wound/Ulcer Outcome Not Healed Not Healed Not Healed -Ulcer Cleansing Rinsed/ Rinsed/ Rinsed/ Irrigated with Irrigated with Irrigated with Saline Saline Saline -Foul Odor after Cleansing No No No -Bioengineered Tissue No No No -Bleeding Controlled with Pressure Pressure Pressure -Offloading No No Yes -Type of Offloading Camwalker -Treatment Response Procedure Procedure Procedure Tolerated Well Tolerated Well Tolerated Well -Debridement - Subq, 1st 20sq cm Yes Yes -Debridement - Bone, 1st 20sq cm Yes Pain Scale: 0-10 Numeric Is Patient Pain Free? Yes Yes Yes GEOVANNI - Nurse 3 - General Ulcer D/C NN Start: 06/02/20 10:28 Freq: Status: Active Protocol: Activity Type Activity Date Activity User E-Sign Co-Sign Detail Recorded Client Recorded Date Recorded By Document 06/02/20 11:06 NE [id number] 06/02/20 11:08 MT Document 06/04/20 14:19 [facility] [id number] 06/04/20 14:21 [facility] Document 06/09/20 11:21 MW [id number] 06/09/20 11:22 MW Document 06/16/20 15:02 RB [id number] 06/16/20 15:03 RB 06/02/20 06/04/20 06/09/20 11:06 14:19 11:21 Wound Care Nurse 3 #3- R LAT FOOT -Ulcer Cleansing SOAPY WATER Rinsed/ Irrigated with Saline -Foul Odor after Cleansing No No -Negative Pressure Wound Therapy Start -Negative Pressure is Continuous -Primary Dressing Applied Aquacel AG 4x4, Fibracol Plus Fibracol Plus Other 4x4 4x4 -Other Dressing SNAP -Primary Dressing Covered/Secured with Dry Gauze, Dry Gauze & Dry Gauze & Secured with Roll Gauze, Roll Gauze Tape Secured with Tape -NPWT Application Charge ($) NPWT </= 50 sq cm (disp) -Aquacel AG 4x4 1 -Fibracol Plus 4x4 1 1 Right -Compression Wrap Jem Wrap -Other Treatment Response Procedure Tolerated Well Vital Signs Temperature (97.8 F-99.1 F) 97 F L Temperature Source Temporal Pulse Rate (60-100) 104 H Pulse Location Monitor Respiratory Rate (12-18) 16 Respiratory rate source Observation Oxygen Delivery Method Room Air Blood Pressure (90/60-120/80) 129/59 H Blood Pressure Mean (mm Hg) 82 Source Monitor Position Sitting Blood Pressure Location Right Arm Pain Scale: 0-10 Numeric Is Patient Pain Free? Yes Yes WC - Visit Discharge Discharge Condition Stable Stable Ambulatory Status Ambulatory,Cane Ambulatory,Cane Transportation Private Auto Private Auto Accompanied by Medication Reconcilliation completed & provided to patient/care provider Clinical Summary of Care Provided 06/16/20 15:02 Wound Care Nurse 3 #3- R LAT FOOT -Ulcer Cleansing -Foul Odor after Cleansing -Negative Pressure Wound Therapy -Negative Pressure is -Primary Dressing Applied -Other Dressing moistened saline gauze -Primary Dressing Covered/Secured with Dry Gauze,Dry Gauze & Roll Gauze,Secured with Tape -NPWT Application Charge ($) -SiConnect AG 4x4 -Fibracol Plus 4x4 Right -Compression Wrap -Other jem Treatment Response Procedure Tolerated Well Vital Signs Temperature (97.8 F-99.1 F) Temperature Source Pulse Rate (60-100) Pulse Location Respiratory Rate (12-18) Respiratory rate source Oxygen Delivery Method Blood Pressure (90/60-120/80) 125/70 H Blood Pressure Mean (mm Hg) 88 Source Monitor Position Semi-Fowlers Blood Pressure Location Left Arm Pain Scale: 0-10 Numeric Is Patient Pain Free? Yes WC - Visit Discharge Discharge Condition Stable Ambulatory Status Wheelchair Transportation Private Auto Accompanied by Medication Reconcilliation completed & No provided to patient/care provider Clinical Summary of Care Provided Yes Wound debrided: lateral foot at TMA site Laterality: Right Wound Grade/Stage: grade 3 Type of Debridement: Excisional debridement Anesthesia Used: 5% Lidocaine Gel Depth: to bone Percentage of wound debrided: 100 Instrument Used: #15 blade, - - ronguer, bone nipper Tissue Removed: fibrous, devitalized subcutaneous and bone, biofilm, slough Severity: Necrosis of Bone Amount of bleeding with debridement: Moderate Bleeding Controlled with: Pressure Patient tolerated procedure well Assessment/Plan Clinical Impression(s) from Imaging Studies Foot X-Ray 06/02/20 11:37 IMPRESSION: Erosion of the lateral aspect of the amputated fifth metatarsal, suspected osteomyelitis. Soft tissue swelling and ulcer. Electronically Signed: Payam Early MD at 12:43 EST Tel , Service support , Active Problems (Last Reviewed 06/11/20 @ 13:[address] 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 Peripheral vascular disease. Coronary artery disease (EF ~ 19 %). Diabetes with insulin dependency. Polyneuropathy. Osteomyelitis right foot. malnutrition suspected Plan: I reviewed and discussed his case. Chart review was also performed. Debridement was performed as noted in the clinical panel. Excised bone was sent to both micro and pathology. This will provide more information and also alleviate internal pressure on this ulcer site. Revisional operating room surgical intervention is not recommended due to poor cardiac output and comprom ised vascular status. Hyperbaric oxygen therapy is also not recommended due to EF of ~19%. Vascular intervention was confirmed as guarded with no additional intervention options. His vascular status has been optimized with a recent drug coated balloon angioplasty of the femoral artery with Dr. Busch. To continue offloading with pillow boot while resting in bed and also CAM walker with limited heel touch during short household periods of ambulation. To use assistive device. I do not recommend altering his leg prosthetic height for concern of overloading his left intact tissue at his stump site. To complete IV antibiotic course until 07/22/2019 per infectious disease; vancomycin and ertapenam. Serial labs will be followed. To continue to improve glucose management. I recommend segundo or glucerna as a nutritional supplement. Recent foot xrays and labs were reviewed from his hospital admission. To return to clinic in one week or sooner if concerns. I answered all of his questions.
[2020-06-23 13:42] VITALS: BP 132/77; PULSE 116; RESP 18; TEMP 36.4; BMI 27.1
--- NOTE | 2020-06-23 17:18 | PCM.WC.PN ---
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 Code(s): L97.514 - Non-pressure chronic ulcer of other part of right foot with necrosis of bone (2) Malnutrition Status: Acute Code(s): E46 - Unspecified protein-calorie malnutrition (3) Amputation of right foot Status: Acute Qualifiers: Encounter type: sequela Qualified Code(s): S98.911S - Complete traumatic amputation of right foot, level unspecified, sequela Code(s): S98.911A - Complete traumatic amputation of right foot, level unspecified, initial encounter Comment: transmetatarsal amputation (4) Ischemic cardiomyopathy Status: Chronic Code(s): I25.5 - Ischemic cardiomyopathy (5) Osteomyelitis of right foot Status: Chronic Code(s): M86.9 - Osteomyelitis, unspecified (6) Peripheral vascular disease due to secondary diabetes Status: Chronic Code(s): E13.51 - Other specified diabetes mellitus with diabetic peripheral angiopathy without gangrene (7) Other specified peripheral vascular diseases Status: Chronic Code(s): I73.89 - Other specified peripheral vascular diseases Type of Wound Date of Service: 06/23/20 Chief Complaint: Follow-up right lateral diabetic foot ulcer History of Wound: 74-year-old white male with a left BK amp and right transmetatarsal amp follows up for ulcer of lateral foot. He was recently hospitalized and treated for osteomyelitis of the right foot that has exposed bone and radiographic changes. He denies pain. He denies fever, chills, nausea, vomiting. His family member is helping him change his dressings daily with aquacel ag. He takes boost nutritional supplements and is concerned this is contributing to glucose level elevation. He wears a CAM walker to mild ambulation at home to use the restroom, ect. He would like to confirm if it is an appropriate time to get his pacemaker battery updated even though he is currently being treated for an infection. Progress of Wound: stable - Physical Exam Vital Signs Temp Pulse Resp BP 97.5 F L 116 H 18 132/77 H 06/23/20 13:42 06/23/20 13:42 06/23/20 13:42 06/23/20 13:42 General: Alert, Oriented x3, Cooperative, No apparent distress HEENT: Atraumatic Extremities: No cyanosis, Capillary Refill Less than 3 Seconds, No Calf Tenderness, Diminished Peripheral Pulses, Edema Skin: Ulcer/ Wound - No purulence, erythema, string, odor, infection. There is no longer bone protruding from the ulcer. His adjacent skin is hairless and atrophic. Wound Measurements and Assessment - Nurse 1 - General Ulcer Measurement Start: 06/02/20 10:28 Freq: Status: Active Protocol: Activity Type Activity Date Activity User E-Sign Co-Sign Detail Recorded Client Recorded Date Recorded By Document 06/23/20 13:42 [id number] 06/23/20 13:44 RB 06/23/20 13:42 Wound Center Nurse 1 [Ulcer Assessment] #3- R LAT FOOT -Combined with other wound No -Current Size (cm) - Length 0.6 -Current Size (cm) - Width 1 -Current Size (cm) - Depth 0.4 -Total Square Cm 0.6 -Tunneling No -Undermining/Tunneling No -Circular Undermining No -Exudate Amt Small -Exudate Type Serosanguineous -Wound Margin Thickened -Granulation Amt Medium (34-66%) -Slough/Fibrin Yes -Necrosis Amt Medium (34-66%) -Necrotic Tissue Type Adherent Slough -Structure Exposed N/A -Texture (Allison-wound Skin Appearance) Assessed -Moisture (Allison-wound Skin Appearance Assessed ) -Color (Allison-wound Skin Appearance) Assessed -Temperature (Allison-wound Skin No Abnormality Appearance) (Pt Warm) -Tenderness on Palpation (Allison-wound No Skin Appearance) -Ulcer Cleansing Wound Cleanser -Anesthetic Used 4% Lidocaine Solution - Nurse 2 - General Ulcer CM Notes Start: 06/02/20 10:28 Freq: Status: Active Protocol: Activity Type Activity Date Activity User E-Sign Co-Sign Detail Recorded Client Recorded Date Recorded By Document 06/23/20 13:58 [id number] 06/23/20 14:02 06/23/20 13:58 Wound Center Nurse 2 [Procedure/Treatment] -Time 13:59 -Correct Patient Yes -Correct Side, Site, Position Yes -Correct Procedure Yes -Procedure Performed Yes -Type of Procedure Debridement -Clinical Debridement Subcutaneous -Tissue Removed Subcutaneous -Post Debridement (cm) - Length 0.9 -Post Debridement (cm) - Width 1 -Post Debridement (cm) - Depth 0.6 -Total Square (Post) (cm) 0.9 -Area of Debridement (cm) - Length 0.9 -Area of Debridement (cm) - Width 1 -Total Square (Area) (cm) 0.9 -Tunneling No -Undermining/Tunneling No -Circular Undermining No -Wound/Ulcer Outcome Not Healed -Ulcer Cleansing Rinsed/ Irrigated with Saline -Foul Odor after Cleansing No -Bioengineered Tissue No -Bleeding Controlled with Pressure -Offloading Yes -Type of Offloading Surgical Shoe -Treatment Response Procedure Tolerated Well -Debridement - Subq, 1st 20sq cm Yes [See Physician Procedure note for Specifics] Pain Scale: 0-10 Numeric [Pain] -Is Patient Pain Free? Yes - Nurse 3 - General Ulcer D/C NN Start: 06/02/20 10:28 Freq: Status: Active Protocol: Activity Type Activity Date Activity User E-Sign Co-Sign Detail Recorded Client Recorded Date Recorded By Document 06/23/20 14:17 KR [id number] 06/23/20 14:18 KR 06/23/20 14:17 Wound Care Nurse 3 [Wound Dressing] #3- R LAT FOOT -Ulcer Cleansing Rinsed/ Irrigated with Saline -Foul Odor after Cleansing No -Primary Dressing Covered/Secured Dry Gauze & with Roll Gauze -Other Covering moist to dry dressing Pain Scale: 0-10 Numeric [Pain] -Is Patient Pain Free? Yes - Visit Discharge [Visit Discharge Information] -Discharge Condition Stable -Ambulatory Status Ambulatory,Cane -Transportation Private Auto -Accompanied by Musculoskeletal: No Tenderness to Palpation of Joints or Extremities, Muscle Wasting, - - Transmetatarsal amputation. Compartments are soft Neurological: - - Lack of normal epicritic sensation light touch consistent with neuropathy Psych/Mental Status: Normal Affect, Appropriate Debridement Note Post-Debridement Measurements/Treatment WC - Nurse 2 - General Ulcer CM Notes Start: 06/02/20 10:28 Freq: Status: Active Protocol: Activity Type Activity Date Activity User E-Sign Co-Sign Detail Recorded Client Recorded Date Recorded By Document 06/02/20 10:53 MW [id number] 06/02/20 10:55 MW Document 06/09/20 10:38 MW [id number] 06/09/20 10:54 MW Document 06/16/20 14:02 JF [id number] 06/16/20 14:20 JF Document 06/23/20 13:58 JF [id number] 06/23/20 14:02 06/02/20 06/09/20 06/16/20 10:53 10:38 14:02 Wound Center Nurse 2 #3- R LAT FOOT -Time 10:53 10:40 14:03 -Correct Patient Yes Yes Yes -Correct Side, Site, Position Yes Yes Yes -Correct Procedure Yes Yes Yes -Procedure Performed Yes Yes Yes -Type of Procedure Debridement Debridement Debridement -Clinical Debridement Subcutaneous Subcutaneous Bone -Tissue Removed Subcutaneous Subcutaneous Tendon -Post Debridement (cm) - Length 0.8 1.1 1 -Post Debridement (cm) - Width 0.7 0.9 1 -Post Debridement (cm) - Depth 0.4 0.6 1 -Total Square (Post) (cm) 0.56 0.99 1 -Area of Debridement (cm) - Length 0.8 1.1 1 -Area of Debridement (cm) - Width 0.7 0.9 1 -Total Square (Area) (cm) 0.56 0.99 1 -Tunneling No No No -Undermining/Tunneling No No No -Circular Undermining No No No -Wound/Ulcer Outcome Not Healed Not Healed Not Healed -Ulcer Cleansing Rinsed/ Rinsed/ Rinsed/ Irrigated with Irrigated with Irrigated with Saline Saline Saline -Foul Odor after Cleansing No No No -Bioengineered Tissue No No No -Bleeding Controlled with Pressure Pressure Pressure -Offloading No No Yes -Type of Offloading Camwalker -Treatment Response Procedure Procedure Procedure Tolerated Well Tolerated Well Tolerated Well -Debridement - Subq, 1st 20sq cm Yes Yes -Debridement - Bone, 1st 20sq cm Yes Pain Scale: 0-10 Numeric Is Patient Pain Free? Yes Yes Yes 06/23/20 13:58 Wound Center Nurse 2 #3- R [facility] FOOT -Time 13:59 -Correct Patient Yes -Correct Side, Site, Position Yes -Correct Procedure Yes -Procedure Performed Yes -Type of Procedure Debridement -Clinical Debridement Subcutaneous -Tissue Removed Subcutaneous -Post Debridement (cm) - Length 0.9 -Post Debridement (cm) - Width 1 -Post Debridement (cm) - Depth 0.6 -Total Square (Post) (cm) 0.9 -Area of Debridement (cm) - Length 0.9 -Area of Debridement (cm) - Width 1 -Total Square (Area) (cm) 0.9 -Tunneling No -Undermining/Tunneling No -Circular Undermining No -Wound/Ulcer Outcome Not Healed -Ulcer Cleansing Rinsed/ Irrigated with Saline -Foul Odor after Cleansing No -Bioengineered Tissue No -Bleeding Controlled with Pressure -Offloading Yes -Type of Offloading Surgical Shoe -Treatment Response Procedure Tolerated Well -Debridement - Subq, 1st 20sq cm Yes -Debridement - Bone, 1st 20sq cm Pain Scale: 0-10 Numeric Is Patient Pain Free? Yes WC - Nurse 3 - General Ulcer D/C NN Start: 06/02/20 10:28 Freq: Status: Active Protocol: Activity Type Activity Date Activity User E-Sign Co-Sign Detail Recorded Client Recorded Date Recorded By Document 06/02/20 11:06 MT [id number] 06/02/20 11:08 MT Document 06/04/20 14:19 BMF [id number] 06/04/20 14:21 BMF Document 06/09/20 11:21 MW [id number] 06/09/20 11:22 MW Document 06/16/20 15:02 RB [id number] 06/16/20 15:03 RB Document 06/23/20 14:17 KR [id number] 06/23/20 14:18 KR 06/02/20 06/04/20 06/09/20 11:06 14:19 11:21 Wound Care Nurse 3 #3- R LAT FOOT -Ulcer Cleansing SOAPY WATER Rinsed/ Irrigated with Saline -Foul Odor after Cleansing No No -Negative Pressure Wound Therapy Start -Negative Pressure is Continuous -Primary Dressing Applied Aquacel AG 4x4, Fibracol Plus Fibracol Plus Other 4x4 4x4 -Other Dressing SNAP -Primary Dressing Covered/Secured with Dry Gauze, Dry Gauze & Dry Gauze & Secured with Roll Gauze, Roll Gauze Tape Secured with Tape -Other Covering -NPWT Application Charge ($) NPWT </= 50 sq cm (disp) -Aquacel AG 4x4 1 -Fibracol Plus 4x4 1 1 Right -Compression Wrap Jem Wrap -Other Treatment Response Procedure Tolerated Well Vital Signs Temperature (97.8 F-99.1 F) 97 F L Temperature Source Temporal Pulse Rate (60-100) 104 H Pulse Location Monitor Respiratory Rate (12-18) 16 Respiratory rate source Observation Oxygen Delivery Method Room Air Blood Pressure (90/60-120/80) 129/59 H Blood Pressure Mean (mm Hg) 82 Source Monitor Position Sitting Blood Pressure Location Right Arm Pain Scale: 0-10 Numeric Is Patient Pain Free? Yes Yes WC - Visit Discharge Discharge Condition Stable Stable Ambulatory Status Ambulatory,Cane Ambulatory,Cane Transportation Private Auto Private Auto Accompanied by Medication Reconcilliation completed & provided to patient/care provider Clinical Summary of Care Provided 06/16/20 06/23/20 15:02 14:17 Wound Care Nurse 3 #3- R LAT FOOT -Ulcer Cleansing Rinsed/ Irrigated with Saline -Foul Odor after Cleansing No -Negative Pressure Wound Therapy -Negative Pressure is -Primary Dressing Applied -Other Dressing moistened saline gauze -Primary Dressing Covered/Secured with Dry Gauze,Dry Dry Gauze & Gauze & Roll Roll Gauze Gauze,Secured with Tape -Other Covering moist to dry dressing -NPWT Application Charge ($) -[employer] AG 4x4 -Fibracol Plus 4x4 Right -Compression Wrap -Other jem Treatment Response Procedure Tolerated Well Vital Signs Temperature (97.8 F-99.1 F) Temperature Source Pulse Rate (60-100) Pulse Location Respiratory Rate (12-18) Respiratory rate source Oxygen Delivery Method Blood Pressure (90/60-120/80) 125/70 H Blood Pressure Mean (mm Hg) 88 Source Monitor Position Semi-Fowlers Blood Pressure Location Left Arm Pain Scale: 0-10 Numeric Is Patient Pain Free? Yes Yes WC - Visit Discharge Discharge Condition Stable Stable Ambulatory Status Wheelchair Ambulatory,Cane Transportation Private Auto Private Auto Accompanied by Medication Reconcilliation completed & No provided to patient/care provider Clinical Summary of Care Provided Yes Wound debrided: lateral foot Laterality: Right Wound Grade/Stage: grade 3 Type of Debridement: Excisional debridement Anesthesia Used: 5% Lidocaine Gel Depth: in the subcutaneous layer Percentage of wound debrided: 100 Instrument Used: #15 blade Tissue Removed: fibrous, devitalized subcutaneous, biofilm, slough Severity: Fat Layer Exposed Amount of bleeding with debridement: Mild Bleeding Controlled with: Pressure Patient tolerated procedure well Assessment/Plan Clinical Impression(s) from Imaging Studies Foot X-Ray 06/02/20 11:37 IMPRESSION: Erosion of the lateral aspect of the amputated fifth metatarsal, suspected osteomyelitis. Soft tissue swelling and ulcer. Electronically Signed: Payam Early MD at 12:43 EST Tel , Service support , Active Problems (Last Reviewed 06/11/20 @ 13:[address] 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 Peripheral vascular disease. Coronary artery disease (EF ~ 19 %). Diabetes with insulin dependency. Polyneuropathy. Osteomyelitis right foot. malnutrition suspected Plan: I reviewed and discussed his case. Debridement was performed (excisional subcutaneous) as noted in the clinical panel. He had bone excised last week and this was sent to pathology microbiology. Pathology was negative for acute osteomyelitis and the microbiology demonstrates Enterococcus cloaca complex. I discussed his concern with Dr. Glass, infectious disease specialist, about proceeding forward with updating his pacemaker while he is on antibiotics for foot infection that is clinically dialyzed and doing well. It is okay to proceed if he is currently undergoing IV antibiotics and is not demonstrating any purulence. I called the patient after clinic and left him a message with this information. Revisional operating room surgical intervention is not recommended due to poor cardiac output and compromised vascular status. Hyperbaric oxygen therapy is also not recommended due to EF of ~19%. Vascular intervention was confirmed as guarded with no additional intervention options. His vascular status has been optimized with a recent drug coated balloon angioplasty of the femoral artery with Dr. Busch. To continue offloading with pillow boot while resting in bed and also CAM walker with limited heel touch during short household periods of ambulation. To use assistive device. To complete IV antibiotic course until 07/22/2019 per infectious disease; vancomycin and ertapenam. Serial labs will be followed. To continue to improve glucose management. I recommend segundo or glucerna as a nutritional supplement. Recent foot xrays and labs were reviewed from his hospital admission. To return to clinic in one week or sooner if concerns. I answered all of his questions.
[2020-06-30 13:14] VITALS: BP 140/64; PULSE 88; RESP 18; TEMP 36.1; BMI 27.1
--- NOTE | 2020-06-30 14:13 | PN.PCM_ITS ---
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 Code(s): L97.514 - Non-pressure chronic ulcer of other part of right foot with necrosis of bone (2) Malnutrition Status: Acute Code(s): E46 - Unspecified protein-calorie malnutrition (3) Amputation of right foot Status: Acute Qualifiers: Encounter type: sequela Qualified Code(s): S98.911S - Complete traumatic amputation of right foot, level unspecified, sequela Code(s): S98.911A - Complete traumatic amputation of right foot, level unspecified, initial encounter Comment: transmetatarsal amputation (4) Ischemic cardiomyopathy Status: Chronic Code(s): I25.5 - Ischemic cardiomyopathy (5) Osteomyelitis of right foot Status: Chronic Code(s): M86.9 - Osteomyelitis, unspecified (6) Peripheral vascular disease due to secondary diabetes Status: Chronic Code(s): E13.51 - Other specified diabetes mellitus with diabetic peripheral angiopathy without gangrene (7) Other specified peripheral vascular diseases Status: Chronic Code(s): I73.89 - Other specified peripheral vascular diseases Type of Wound Date of Service: 06/30/20 Chief Complaint: Follow-up right lateral diabetic foot ulcer History of Wound: 74-year-old white male with a left BK amp and right transmetatarsal amp follows up for ulcer of lateral foot. He was recently hospitalized and treated for osteomyelitis of the right foot that has exposed bone and radiographic changes. He denies pain. He denies fever, chills, nausea, vomiting. His family member is helping him change his dressings daily with a quacel ag. He takes boost nutritional supplements and is concerned this is contributing to glucose level elevation. He wears a CAM walker to mild ambulation at home to use the restroom, ect. He is scheduled to get his pacemaker battery changed. He continues to go to hemodialysis on a regular basis. He is completing antibiotic course as advised by infectious disease. He relates he also has trouble healing wounds and has had prior dehiscence is even on his left leg amputation site. Therefore he would like an additional week to consider if he will proceed forward with a delayed primary closure in clinic to the right foot. He also asked if a wound VAC is appropriate. Progress of Wound: stable - Physical Exam Vital Signs Temp Pulse Resp BP 97 F L 88 18 140/64 H 06/30/20 13:14 06/30/20 13:14 06/30/20 13:14 06/30/20 13:14 General: Alert, Oriented x3, Cooperative, No apparent distress Extremities: No cyanosis, Capillary Refill Less than 3 Seconds, No Calf Tenderness, Diminished Peripheral Pulses, Edema, - - Right transmetatarsal amputation. Left leg amputation Skin: Ulcer/ Wound - No purulence, erythema, string, odor, infection. No longer any exposed bone or tendon. The adjacent skin is hairless and atrophic. Compartments soft. Wound Measurements and Assessment WC - Nurse 1 - General Ulcer Measurement Start: 06/02/20 10:28 Freq: Status: Active Protocol: Activity Type Activity Date Activity User E-Sign Co-Sign Detail Recorded Client Recorded Date Recorded By Document 06/30/20 13:14 RB [id number] 06/30/20 13:15 RB 06/30/20 13:14 Wound Center Nurse 1 [Ulcer Assessment] #3- R LAT FOOT -Combined with other wound No -Current Size (cm) - Length 0.5 -Current Size (cm) - Width 1.2 -Current Size (cm) - Depth 0.4 -Total Square Cm 0.60 -Tunneling No -Undermining/Tunneling Yes -Undermining/Tunneling Starts (O' 2 clock) -Undermining/Tunneling Ends (O'clock) 5 -Maximum Distance (cm) 0.3 -Exudate Amt Small -Exudate Type Serosanguineous -Wound Margin Thickened -Granulation Amt Medium (34-66%) -Granulation Quality [place] -Slough/Fibrin Yes -Necrosis Amt Small (1-33%) -Necrotic Tissue Type Adherent Slough -Structure Exposed N/A -Texture (Allison-wound Skin Appearance) Callus -Moisture (Allison-wound Skin Appearance Assessed ) -Color (Allison-wound Skin Appearance) Assessed -Temperature (Allison-wound Skin No Abnormality Appearance) (Pt Warm) -Tenderness on Palpation (Allison-wound No Skin Appearance) -Ulcer Cleansing Wound Cleanser -Foul Odor after Cleansing No -Anesthetic Used 4% Lidocaine Solution,5% Lidocaine Gel WC - Nurse 2 - General Ulcer CM Notes Start: 06/02/20 10:28 Freq: Status: Active Protocol: Activity Type Activity Date Activity User E-Sign Co-Sign Detail Recorded Client Recorded Date Recorded By Document 06/30/20 13:36 [id number] 06/30/20 13:48 06/30/20 13:36 Wound Center Nurse 2 [Procedure/Treatment] -Time 13:39 -Correct Patient Yes -Correct Side, Site, Position Yes -Correct Procedure Yes -Procedure Performed Yes -Type of Procedure Debridement -Clinical Debridement Subcutaneous -Tissue Removed Subcutaneous -Post Debridement (cm) - Length 0.6 -Post Debridement (cm) - Width 1.2 -Post Debridement (cm) - Depth 0.3 -Total Square (Post) (cm) 0.72 -Area of Debridement (cm) - Length 0.6 -Area of Debridement (cm) - Width 1.2 -Total Square (Area) (cm) 0.72 -Tunneling No -Undermining/Tunneling No -Circular Undermining No -Wound/Ulcer Outcome Not Healed -Ulcer Cleansing Rinsed/ Irrigated with Saline -Foul Odor after Cleansing No -Bioengineered Tissue No -Bleeding Controlled with Pressure -Offloading Yes -Type of Offloading Surgical Shoe -Treatment Response Procedure Tolerated Well -Debridement - Subq, 1st 20sq cm Yes [See Physician Procedure note for Specifics] Pain Scale: 0-10 Numeric [Pain] -Is Patient Pain Free? Yes - Nurse 3 - General Ulcer D/C NN Start: 06/02/20 10:28 Freq: Status: Active Protocol: Activity Type Activity Date Activity User E-Sign Co-Sign Detail Recorded Client Recorded Date Recorded By Document 06/30/20 13:51 F [id number] 06/30/20 13:53 BM 06/30/20 13:51 Wound Care Nurse 3 [Wound Dressing] #3- R LAT FOOT -Ulcer Cleansing Rinsed/ Irrigated with Saline -Foul Odor after Cleansing No -Primary Dressing Applied Other -Other Dressing moist to dry drsg -Primary Dressing Covered/Secured Other with -Other Covering drsg per r malka rn [Post Procedure Tolerated] -Treatment Response Procedure Tolerated Well Pain Scale: 0-10 Numeric [Pain] -Is Patient Pain Free? Yes - Visit Discharge [Visit Discharge Information] -Discharge Condition Stable -Ambulatory Status Ambulatory,Cane -Transportation Private Auto -Accompanied by Musculoskeletal: Muscle Wasting Neurological: - - Lack of normal epicritic sensation consistent with neuropathy Psych/Mental Status: Normal Affect, Appropriate Debridement Note Post-Debridement Measurements/Treatment - Nurse 2 - General Ulcer CM Notes Start: 06/02/20 10:28 Freq: Status: Active Protocol: Activity Type Activity Date Activity User E-Sign Co-Sign Detail Recorded Client Recorded Date Recorded By Document 06/02/20 10:53 MW [id number] 06/02/20 10:55 MW Document 06/09/20 10:38 MW [id number] 06/09/20 10:54 MW Document 06/16/20 14:02 JF [id number] 06/16/20 14:20 JF Document 06/23/20 13:58 JF [id number] 06/23/20 14:02 JF Document 06/30/20 13:36 JF [id number] 06/30/20 13:48 JF 06/02/20 06/09/20 06/16/20 10:53 10:38 14:02 Wound Center Nurse 2 #3- R LAT FOOT -Time 10:53 10:40 14:03 -Correct Patient Yes Yes Yes -Correct Side, Site, Position Yes Yes Yes -Correct Procedure Yes Yes Yes -Procedure Performed Yes Yes Yes -Type of Procedure Debridement Debridement Debridement -Clinical Debridement Subcutaneous Subcutaneous Bone -Tissue Removed Subcutaneous Subcutaneous Tendon -Post Debridement (cm) - Length 0.8 1.1 1 -Post Debridement (cm) - Width 0.7 0.9 1 -Post Debridement (cm) - Depth 0.4 0.6 1 -Total Square (Post) (cm) 0.56 0.99 1 -Area of Debridement (cm) - Length 0.8 1.1 1 -Area of Debridement (cm) - Width 0.7 0.9 1 -Total Square (Area) (cm) 0.56 0.99 1 -Tunneling No No No -Undermining/Tunneling No No No -Circular Undermining No No No -Wound/Ulcer Outcome Not Healed Not Healed Not Healed -Ulcer Cleansing Rinsed/ Rinsed/ Rinsed/ Irrigated with Irrigated with Irrigated with Saline Saline Saline -Foul Odor after Cleansing No No No -Bioengineered Tissue No No No -Bleeding Controlled with Pressure Pressure Pressure -Offloading No No Yes -Type of Offloading Camwalker -Treatment Response Procedure Procedure Procedure Tolerated Well Tolerated Well Tolerated Well -Debridement - Subq, 1st 20sq cm Yes Yes -Debridement - Bone, 1st 20sq cm Yes Pain Scale: 0-10 Numeric Is Patient Pain Free? Yes Yes Yes 06/23/20 06/30/20 13:58 13:36 Wound Center Nurse 2 #3- R LAT FOOT -Time 13:59 13:39 -Correct Patient Yes Yes -Correct Side, Site, Position Yes Yes -Correct Procedure Yes Yes -Procedure Performed Yes Yes -Type of Procedure Debridement Debridement -Clinical Debridement Subcutaneous Subcutaneous -Tissue Removed Subcutaneous Subcutaneous -Post Debridement (cm) - Length 0.9 0.6 -Post Debridement (cm) - Width 1 1.2 -Post Debridement (cm) - Depth 0.6 0.3 -Total Square (Post) (cm) 0.9 0.72 -Area of Debridement (cm) - Length 0.9 0.6 -Area of Debridement (cm) - Width 1 1.2 -Total Square (Area) (cm) 0.9 0.72 -Tunneling No No -Undermining/Tunneling No No -Circular Undermining No No -Wound/Ulcer Outcome Not Healed Not Healed -Ulcer Cleansing Rinsed/ Rinsed/ Irrigated with Irrigated with Saline Saline -Foul Odor after Cleansing No No -Bioengineered Tissue No No -Bleeding Controlled with Pressure Pressure -Offloading Yes Yes -Type of Offloading Surgical Shoe Surgical Shoe -Treatment Response Procedure Procedure Tolerated Well Tolerated Well -Debridement - Subq, 1st 20sq cm Yes Yes -Debridement - Bone, 1st 20sq cm Pain Scale: 0-10 Numeric Is Patient Pain Free? Yes Yes - Nurse 3 - General Ulcer D/C NN Start: 06/02/20 10:28 Freq: Status: Active Protocol: Activity Type Activity Date Activity User E-Sign Co-Sign Detail Recorded Client Recorded Date Recorded By Document 06/02/20 11:06 MT [id number] 06/02/20 11:08 MT Document 06/04/20 14:19 BMF [id number] 06/04/20 14:21 BMF Document 06/09/20 11:21 MW [id number] 06/09/20 11:22 MW Document 06/16/20 15:02 RB [id number] 06/16/20 15:03 RB Document 06/23/20 14:17 KR [id number] 06/23/20 14:18 KR Document 06/30/20 13:51 BMF [id number] 06/30/20 13:53 BMF 06/02/20 06/04/20 06/09/20 11:06 14:19 11:21 Wound Care Nurse 3 #3- R LAT FOOT -Ulcer Cleansing SOAPY WATER Rinsed/ Irrigated with Saline -Foul Odor after Cleansing No No -Negative Pressure Wound Therapy Start -Negative Pressure is Continuous -Primary Dressing Applied Aquacel AG 4x4, Fibracol Plus Fibracol Plus Other 4x4 4x4 -Other Dressing SNAP -Primary Dressing Covered/Secured with Dry Gauze, Dry Gauze & Dry Gauze & Secured with Roll Gauze, Roll Gauze Tape Secured with Tape -Other Covering -NPWT Application Charge ($) NPWT </= 50 sq cm (disp) -Aquacel AG 4x4 1 -Fibracol Plus 4x4 1 1 Right -Compression Wrap Jem Wrap -Other Treatment Response Procedure Tolerated Well Vital Signs Temperature (97.8 F-99.1 F) 97 F L Temperature Source Temporal Pulse Rate (60-100) 104 H Pulse Location Monitor Respiratory Rate (12-18) 16 Respiratory rate source Observation Oxygen Delivery Method Room Air Blood Pressure (90/60-120/80) 129/59 H Blood Pressure Mean (mm Hg) 82 Source Monitor Position Sitting Blood Pressure Location Right Arm Pain Scale: 0-10 Numeric Is Patient Pain Free? Yes Yes WC - Visit Discharge Discharge Condition Stable Stable Ambulatory Status Ambulatory,Cane Ambulatory,Cane Transportation Private Auto Private Auto Accompanied by Medication Reconcilliation completed & provided to patient/care provider Clinical Summary of Care Provided 06/16/20 06/23/20 06/30/20 15:02 14:17 13:51 Wound Care Nurse 3 #3- R LAT FOOT -Ulcer Cleansing Rinsed/ Rinsed/ Irrigated with Irrigated with Saline Saline -Foul Odor after Cleansing No No -Negative Pressure Wound Therapy -Negative Pressure is -Primary Dressing Applied Other -Other Dressing moistened moist to dry saline gauze drsg -Primary Dressing Covered/Secured with Dry Gauze,Dry Dry Gauze & Other Gauze & Roll Roll Gauze Gauze,Secured with Tape -Other Covering moist to dry drsg per r dressing malka garcia -NPWT Application Charge ($) -Aquacel AG 4x4 -Fibracol Plus 4x4 Right -Compression Wrap -Other jem Treatment Response Procedure Procedure Tolerated Well Tolerated Well Vital Signs Temperature (97.8 F-99.1 F) Temperature Source Pulse Rate (60-100) Pulse Location Respiratory Rate (12-18) Respiratory rate source Oxygen Delivery Method Blood Pressure (90/60-120/80) 125/70 H Blood Pressure Mean (mm Hg) 88 Source Monitor Position Semi-Fowlers Blood Pressure Location Left Arm Pain Scale: 0-10 Numeric Is Patient Pain Free? Yes Yes Yes WC - Visit Discharge Discharge Condition Stable Stable Stable Ambulatory Status Wheelchair Ambulatory,Cane Ambulatory,Cane Transportation Private Auto Private Auto Private Auto Accompanied by Medication Reconcilliation completed & No provided to patient/care provider Clinical Summary of Care Provided Yes Wound debrided: lateral distal forefoot Laterality: Right Wound Grade/Stage: grade 3 Type of Debridement: Excisional debridement Anesthesia Used: 5% Lidocaine Gel Depth: in the subcutaneous layer Percentage of wound debrided: 100 Instrument Used: #15 blade Tissue Removed: fibrous, devitalized subcutaneous, biofilm, slough Severity: Fat Layer Exposed Amount of bleeding with debridement: Mild Bleeding Controlled with: Pressure Patient tolerated procedure well Assessment/Plan Clinical Impression(s) from Imaging Studies Foot X-Ray 06/02/20 11:37 IMPRESSION: Erosion of the lateral aspect of the amputated fifth metatarsal, suspected osteomyelitis. Soft tissue swelling and ulcer. Electronically Signed: Payam Early MD at 12:43 EST Tel , Service support , Active Problems (Last Reviewed 06/11/20 @ 13:[address] 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 Peripheral vascular disease. Coronary artery disease (EF ~ 19 %). Diabetes with insulin dependency. Polyneuropathy. Osteomyelitis right foot. malnutrition suspected Plan: I reviewed and discussed his case. Debridement was performed (excisional subcutaneous) as noted in the clinical panel. He had bone excised previously and this was sent to pathology microbiology. Pathology was negative for acute osteomyelitis and the microbiology demonstrates Enterococcus cloaca complex. I discussed his concern with Dr. Glass, infectious disease specialist, about proceeding forward with updating his pacemaker while he is on antibiotics for foot infection that is clinically dialyzed and doing well. It is okay to proceed if he is currently undergoing IV antibiotics and is not demonstrating any purulence. He has scheduled the procedure. Revisional operating room surgical intervention is not recommended due to poor cardiac output and compromised vascular status. Hyperbaric oxygen therapy is also not recommended due to EF of ~19%. Vascular intervention was confirmed as guarded with no additional intervention options. His vascular status has been optimized with a recent drug coated balloon angioplasty of the femoral artery with Dr. Busch. To continue offloading with pillow boot while resting in bed and also CAM walker with limited heel touch during short household periods of ambulation. To use assistive device. To complete IV antibiotic course until 07/22/2019 per infectious disease; vancomycin and ertapenam. Serial labs will be followed. To continue to improve glucose management. I recommend segundo or glucerna as a nutritional supplement. Recent foot xrays and labs were reviewed from his hospital admission. I offered him a delayed primary closure in clinic and he would like to think about this for another week. He understands the anticipated success and sometimes this at least allows deeper wound approximation and closure versus complete closure of the wound. We will also consider if we want to use an incisional wound VAC on this site however it was not my initial recommendation. He understands it is ultimately up to him and he admits he does not want to proceed forward with anything today. To return to clinic in one week or sooner if concerns. I answered all of his questions.
== END 2020-07-01 23:59 ==
LOC: WC 13:00
PROVIDERS: PCP Family Medicine; Referring Provider Family Medicine; Visit Provider Nurse Practitioner
DX: E11.621 Type 2 diabetes mellitus with foot ulcer (principal); L89.893 Pressure ulcer of other site, stage 3; I25.5 Ischemic cardiomyopathy; Z89.431 Acquired absence of right foot; I25.10 Atherosclerotic heart disease of native coronary artery without angina pectoris; E11.42 Type 2 diabetes mellitus with diabetic polyneuropathy; E11.51 Type 2 diabetes mellitus with diabetic peripheral angiopathy without gangrene; I70.209 Unspecified atherosclerosis of native arteries of extremities, unspecified extremity
CPT/HCPCS: 11042; 11044; 73630; 87015; 87070; 87075; 87077; 87101; 87116; 87176; 87186; 87205; 87206; 88304; 88311; 97605; 97607; 99212; G0463

== ENCOUNTER → 2020-07-01 07:57 | Outpatient (CLI) | payer MEDICARE, OTHER, SELFPAY ==
[2020-06-16 15:31] VITALS: BMI 31.0
[2020-06-30 13:14] VITALS: BMI 27.1
[2020-07-01 08:05] VITALS: BP 94/46; PULSE 65; RESP 18; TEMP 35.9; O2SAT 99
[2020-07-01] MEDS: 0.9% NaCl PICC Flush IV ×2 (08:08→10:10)
[2020-07-01] MEDS: 0.9% NaCl IVPB Med Flush (250 mL) 15 ML IV (08:08)
[2020-07-01 10:12] VITALS: BP 94/50; PULSE 61; RESP 18; O2SAT 97
== END ==
PROVIDERS: PCP Family Medicine; Referring Provider Internal Medicine Infectious Disease; Visit Provider Internal Medicine Infectious Disease
DX: M89.9 Disorder of bone, unspecified (principal)
CPT/HCPCS: 96365; 96367; J7050; A4216

== ENCOUNTER → 2020-07-02 07:17 | Outpatient (CLI) | payer MEDICARE, OTHER, SELFPAY ==
[2020-06-16 15:31] VITALS: BMI 31.0
[2020-06-30 13:14] VITALS: BMI 27.1
[2020-07-02] MEDS: 0.9% NaCl IVPB Med Flush (250 mL) 15 ML IV (07:56)
[2020-07-02] MEDS: 0.9% NaCl PICC Flush IV ×2 (07:56→10:05)
[2020-07-02 08:04] VITALS: BP 126/69; PULSE 102; RESP 16; TEMP 35.9; O2SAT 94; BMI 27.1
== END ==
PROVIDERS: PCP Family Medicine; Referring Provider Internal Medicine Infectious Disease; Visit Provider Internal Medicine Infectious Disease
DX: M86.9 Osteomyelitis, unspecified (principal)
CPT/HCPCS: 96365; 96367; J7050; A4216

== ENCOUNTER 2020-07-03 08:15 | Outpatient (CLI) | payer MEDICARE, OTHER, SELFPAY ==
[2020-06-16 15:31] VITALS: BMI 31.0
[2020-07-02 08:04] VITALS: BMI 27.1
[2020-07-03] MEDS: 0.9% NaCl IVPB Med Flush (250 mL) 15 ML IV (08:25)
[2020-07-03] MEDS: 0.9% NaCl PICC Flush IV ×2 (08:35→10:34)
== END 2020-07-03 10:37 | disposition home or self-care (01) ==
LOC: MEDOUTP 08:17 → MS3 08:17
PROVIDERS: PCP Family Medicine; Referring Provider Internal Medicine Infectious Disease; Visit Provider Internal Medicine Infectious Disease
DX: M86.9 Osteomyelitis, unspecified (principal)
CPT/HCPCS: 96365; 96367; J7050; A4216

== ENCOUNTER 2020-07-04 07:54 | Outpatient (CLI) | payer MEDICARE, OTHER, SELFPAY ==
[2020-06-16 15:31] VITALS: BMI 31.0
[2020-07-02 08:04] VITALS: BMI 27.1
[2020-07-04] MEDS: 0.9% NaCl IVPB Med Flush (250 mL) 15 ML IV (08:06)
[2020-07-04] MEDS: 0.9% NaCl PICC Flush IV ×2 (08:07→10:27)
== END 2020-07-04 10:28 | disposition home or self-care (01) ==
LOC: MEDOUTP 07:55 → MS3 07:56
PROVIDERS: PCP Family Medicine; Referring Provider Internal Medicine Infectious Disease; Visit Provider Internal Medicine Infectious Disease
DX: M86.9 Osteomyelitis, unspecified (principal)
CPT/HCPCS: 96365; 96367; J7050; A4216

== ENCOUNTER → 2020-07-05 08:01 | Outpatient (CLI) | payer MEDICARE, OTHER, SELFPAY ==
[2020-06-16 15:31] VITALS: BMI 31.0
[2020-07-02 08:04] VITALS: BMI 27.1
[2020-07-05 08:14] VITALS: BP 126/52; PULSE 90; RESP 16; TEMP 36.1; O2SAT 96
[2020-07-05] MEDS: 0.9% NaCl PICC Flush IV ×2 (08:19→11:05)
[2020-07-05] MEDS: 0.9% NaCl IVPB Med Flush (250 mL) 15 ML IV (08:19)
[2020-07-05 10:28] VITALS: BP 104/49; PULSE 65; TEMP 36.7; O2SAT 96
[2020-07-05 11:09] VITALS: BP 126/52; PULSE 90; RESP 18; TEMP 36.1; O2SAT 96
== END ==
PROVIDERS: PCP Family Medicine; Referring Provider Internal Medicine Infectious Disease; Visit Provider Internal Medicine Infectious Disease
DX: M86.9 Osteomyelitis, unspecified (principal)
CPT/HCPCS: 96365; 96367; J7050; A4216

== ENCOUNTER → 2020-07-06 07:48 | Outpatient (CLI) | payer MEDICARE, OTHER, SELFPAY ==
[2020-06-16 15:31] VITALS: BMI 31.0
[2020-07-02 08:04] VITALS: BMI 27.1
[2020-07-06] MEDS: 0.9% NaCl PICC Flush IV ×2 (08:04→10:06)
[2020-07-06] MEDS: 0.9% NaCl IVPB Med Flush (250 mL) 15 ML IV (08:06)
[2020-07-06 08:07] VITALS: BP 102/74; PULSE 74; RESP 16; TEMP 36.6; O2SAT 98; BMI 27.1
[2020-07-06 10:07] VITALS: BP 107/61; PULSE 89; RESP 16; TEMP 36.6; O2SAT 95
== END ==
PROVIDERS: PCP Family Medicine; Referring Provider Internal Medicine Infectious Disease; Visit Provider Internal Medicine Infectious Disease
DX: M86.9 Osteomyelitis, unspecified (principal)
CPT/HCPCS: 96365; 96367; J7050; A4216

== ENCOUNTER → 2020-07-07 07:57 | Outpatient (CLI) | payer MEDICARE, OTHER, SELFPAY ==
[2020-06-16 15:31] VITALS: BMI 31.0
[2020-07-06 08:07] VITALS: BMI 27.1
[2020-07-07] MEDS: 0.9% NaCl PICC Flush IV ×2 (08:06→10:42)
[2020-07-07 08:20] VITALS: BP 115/64; PULSE 99; RESP 16; TEMP 36.2; O2SAT 99
[2020-07-07] MEDS: 0.9% NaCl IVPB Med Flush (250 mL) 15 ML IV (08:22)
[2020-07-07 08:26] LABS: Hematocrit 31.4 % (40-54); Hemoglobin 10.1 g/dL (13.0-16.5); Mean Corp Hgb Conc 32.2 g/dL (32-36); Mean Corpuscular Hgb 32.3 pg (27.0-32.0); Mean Corpuscular Volume 100.3 fL (80-94); Platelet Count 154 K/mm3 (150-450); RBC Distribution Width CV 15.2 % (11.6-14.6); RBC Distribution Width SD 55.1 fl (35.1-43.9); Red Blood Count 3.13 M/mm3 (4.6-6.2); White Blood Count 4.8 K/mm3 (4.4-11.0)
[2020-07-07 08:37] LABS: AST(SGOT) 30 U/L (15-37); Alanine Aminotransfer ALT/SGPT 45 U/L (16-61); Albumin, Serum 3.4 g/dL (3.2-5.0); Alkaline Phosphatase 112 U/L (45-117); Anion Gap 5 (5-15); BUN 19 mg/dL (7-18); BUN/Creat Ratio 22.1 RATIO (10-20); Bilirubin, Direct 0.33 mg/dL (0.00-0.30); Calcium,Total 8.5 mg/dL (8.5-10.1); Chloride 103 mmol/L (98-107); Creatinine, Serum 0.86 mg/dL (0.70-1.30); EST Glomerular Filtration Rate 93 mL/min (>60); Est Glom Filt Rate - Afr Amer 112 mL/min (>60); Globulin 3.2 g/dL (2.2-4.2); Glucose 102 mg/dL (74-106); Potassium 3.7 mmol/L (3.5-5.1); Protein, Total 6.6 g/dL (6.4-8.2); Sodium Level 141 mmol/L (136-145)
[2020-07-07 08:44] LABS: Erythrocyte Sedimentation Rate 4 mm/hr (0-20)
[2020-07-07 08:48] LABS: Vancomycin, Trough Level 10.4 ug/mL (5.0-15.0)
[2020-07-07 10:45] VITALS: BP 126/61; PULSE 90; RESP 16; O2SAT 96
[2020-07-07 16:18] LABS: Xtra Tube EP Lab EXTRA TUBE
[2020-07-08 08:55] LABS: BNP,B-Type NATRIURETIC PEPTIDE 1001.9 pg/mL (0-100)
== END ==
PROVIDERS: PCP Family Medicine; Referring Provider Internal Medicine Infectious Disease; Visit Provider Internal Medicine Infectious Disease
DX: M86.9 Osteomyelitis, unspecified (principal); R06.00 Dyspnea, unspecified; L97.514 Non-pressure chronic ulcer of other part of right foot with necrosis of bone
CPT/HCPCS: 96365; 96367; 11042; 80048; 80076; 80202; 83880; 85027; 85652; J7050; A4216

== ENCOUNTER → 2020-07-08 08:02 | Outpatient (CLI) | payer MEDICARE, OTHER, SELFPAY ==
[2020-06-16 15:31] VITALS: BMI 31.0
[2020-07-07 14:14] VITALS: BMI 30.4
[2020-07-08] MEDS: 0.9% NaCl PICC Flush IV ×2 (08:30→10:39)
[2020-07-08] MEDS: 0.9% NaCl IVPB Med Flush (250 mL) 15 ML IV (08:30)
[2020-07-08 08:34] VITALS: BP 108/53; PULSE 78; RESP 16; TEMP 35.9; O2SAT 95; BMI 28.3
[2020-07-08 10:44] VITALS: BP 114/59; PULSE 74; RESP 16; TEMP 36.9; O2SAT 95
== END ==
PROVIDERS: PCP Family Medicine; Referring Provider Internal Medicine Infectious Disease; Visit Provider Internal Medicine Infectious Disease
DX: M86.9 Osteomyelitis, unspecified (principal)
CPT/HCPCS: 96365; 96367; J7050; A4216

== ENCOUNTER → 2020-07-09 07:56 | Outpatient (CLI) | payer MEDICARE, OTHER, SELFPAY ==
[2020-06-16 15:31] VITALS: BMI 31.0
[2020-07-08 08:34] VITALS: BMI 28.3
[2020-07-09 08:03] VITALS: BP 117/54; PULSE 67; RESP 16; TEMP 35.7; O2SAT 94; BMI 28.4
[2020-07-09] MEDS: 0.9% NaCl IVPB Med Flush (250 mL) 15 ML IV (08:10)
[2020-07-09] MEDS: 0.9% NaCl PICC Flush IV ×2 (08:11→10:14)
[2020-07-09 10:18] VITALS: BP 110/66; PULSE 74; RESP 16; TEMP 35.7; O2SAT 97
== END ==
PROVIDERS: PCP Family Medicine; Referring Provider Internal Medicine Infectious Disease; Visit Provider Internal Medicine Infectious Disease
DX: M86.9 Osteomyelitis, unspecified (principal)
CPT/HCPCS: 96365; 96367; J7050; A4216

== ENCOUNTER 2020-07-10 07:59 | Outpatient (CLI) | payer MEDICARE, OTHER, SELFPAY ==
[2020-06-16 15:31] VITALS: BMI 31.0
[2020-07-09 08:03] VITALS: BMI 28.4
[2020-07-10] MEDS: 0.9% NaCl PICC Flush IV ×2 (08:20→10:40)
[2020-07-10] MEDS: 0.9% NaCl IVPB Med Flush (250 mL) 15 ML IV (08:20)
[2020-07-10 08:29] VITALS: BP 122/72; PULSE 80; RESP 18; TEMP 36.6; O2SAT 98
== END 2020-07-10 10:45 | disposition home or self-care (01) ==
LOC: MEDOUTP 08:00 → MS3 08:00
PROVIDERS: PCP Family Medicine; Referring Provider Internal Medicine Infectious Disease; Visit Provider Internal Medicine Infectious Disease
DX: M86.9 Osteomyelitis, unspecified (principal)
CPT/HCPCS: 96365; 96367; J7050; A4216

== ENCOUNTER 2020-07-11 08:11 | Outpatient (CLI) | payer MEDICARE, OTHER, SELFPAY ==
[2020-06-16 15:31] VITALS: BMI 31.0
[2020-07-09 08:03] VITALS: BMI 28.4
[2020-07-11] MEDS: 0.9% NaCl PICC Flush IV ×3 (08:10→10:23)
[2020-07-11] MEDS: 0.9% NaCl IVPB Med Flush (250 mL) 15 ML IV (08:18)
[2020-07-11 08:21] VITALS: BP 109/56; PULSE 88; RESP 18; TEMP 36.8; O2SAT 98
== END 2020-07-11 10:24 | disposition home or self-care (01) ==
LOC: MEDOUTP 08:12 → MS3 08:13
PROVIDERS: PCP Family Medicine; Referring Provider Internal Medicine Infectious Disease; Visit Provider Internal Medicine Infectious Disease
DX: M86.9 Osteomyelitis, unspecified (principal)
CPT/HCPCS: 96365; 96367; J7050; A4216

== ENCOUNTER → 2020-07-12 07:59 | Outpatient (CLI) | payer MEDICARE, OTHER, SELFPAY ==
[2020-06-16 15:31] VITALS: BMI 31.0
[2020-07-09 08:03] VITALS: BMI 28.4
[2020-07-12] MEDS: 0.9% NaCl IVPB Med Flush (250 mL) 15 ML IV (08:17)
[2020-07-12] MEDS: 0.9% NaCl PICC Flush IV ×2 (08:17→10:35)
[2020-07-12 08:20] VITALS: BP 133/65; PULSE 68; RESP 16; TEMP 36.2; O2SAT 97; BMI 28.4
== END ==
PROVIDERS: PCP Family Medicine; Referring Provider Internal Medicine Infectious Disease; Visit Provider Internal Medicine Infectious Disease
DX: M86.9 Osteomyelitis, unspecified (principal)
CPT/HCPCS: 96365; 96367; J7050; A4216

== ENCOUNTER → 2020-07-13 07:59 | Outpatient (CLI) | payer MEDICARE, OTHER, SELFPAY ==
[2020-06-16 15:31] VITALS: BMI 31.0
[2020-07-12 08:20] VITALS: BMI 28.4
[2020-07-13 08:05] VITALS: BP 111/57; PULSE 75; RESP 18; TEMP 36.3; O2SAT 100
[2020-07-13] MEDS: 0.9% NaCl IVPB Med Flush (250 mL) 15 ML IV (08:07)
[2020-07-13] MEDS: 0.9% NaCl PICC Flush IV ×2 (08:07→10:17)
== END ==
PROVIDERS: PCP Family Medicine; Referring Provider Internal Medicine Infectious Disease; Visit Provider Internal Medicine Infectious Disease
DX: M86.9 Osteomyelitis, unspecified (principal)
CPT/HCPCS: 96365; 96367; J7050; A4216

== ENCOUNTER → 2020-07-13 14:52 | Outpatient (CLI) | payer MEDICARE, OTHER, SELFPAY ==
[2020-07-07 14:14] VITALS: BMI 30.4
[2020-07-12 08:20] VITALS: BMI 28.4
--- NOTE | 2020-07-13 14:54 | ECHOCS_ITS ---
Reason For Study: CHF Procedure This was a 2D Doppler, Color Flow transthoracic echocardiogram. The study was technically difficult. Contrast injection was performed. Exam performed in department. Left Ventricle Mildly dilated left ventricle. Severe segmental systolic dysfunction (see wall motion). The estimated ejection fraction is 20 %. Anterio-Basal: Hypokinetic. Posterior-Basal: Hypokinetic. Infero-Basal: Akinetic. Basal inferoseptal: Hypokinetic. Basal anteroseptal: Hypokinetic. Mid- Anterior : Akinetic. Mid-Lateral : Hypokinetic. Mid-Posterior: Akinetic. Mid-Inferior: Akinetic. Mid-inferoseptal : Akinetic. Mid-anteroseptal : Hypokinetic. Cutler : Akinetic. Right Ventricle Normal RV size. ICD or pacer leads identified within the right ventricle. Normal systolic function. Atria The left atrium is mildly enlarged. Normal right atrium. ICD or pacer leads identified within the right atrium. No doppler evidence for ASD. Mitral Valve There is mild mitral annular calcification. Normal mitral valve. Mild (1+) mitral valve insufficiency. Tricuspid Valve Normal tricuspid valve. Moderate (2+) tricuspid valve insufficiency. Right ventricular systolic pressure estimated to be 55 mmHg. Aortic Valve Trisinus/trileaflet aortic valve. Moderate focal aortic valve calcification. Mild aortic stenosis. Trivial aortic valve insufficiency. Pulmonic Valve The pulmonic valve is not well visualized. Great Vessels Normal sized aortic root. Pericardium/Pleural No pericardial effusion. Medication Diluted definity 5ml given slow IV push to enhance endocardial definition. MMode/2D Measurements & Calculations LVIDd: 5.9 cm IVSd: 1.2 cm LVOT diam: 2.0 cm LVIDs: 5.3 cm LVPWd: 1.2 cm RVDd: 4.6 cm FS: 9.3 % LVOT area: 3.3 cm2 Ao root diam: 3.2 cm LAV(MOD-bp): 81.7 ml LVAd ap4: 52.7 cm2 LAV(MOD-bp) Indexed: 37.9 ml/m2 EDV(MOD-sp4): 241.8 ml LAV(MOD-sp2): 71.8 ml EDV(sp4-el): 250.1 ml LAV(MOD-sp4): 84.2 ml LVAs ap4: 44.6 cm2 ESV(MOD-sp4): 186.6 ml ESV(sp4-el): 197.6 ml EF(MOD-sp4): 22.8 % EF(sp4-el): 21.0 % SV(MOD-sp4): 55.2 ml SV(sp4-el): 52.5 ml LA A4 area: 24.3 cm2 LA dimension(2D): 5.3 cm RA A4 area: 20.4 cm2 Time Measurements MV dec time: 0.16 sec Doppler Measurements & Calculations MV E max alvaro: 110.2 cm/sec Lat Peak E' Alvaro: 11.9 cm/sec Med Peak E' Alvaro: 2.8 cm/sec MV A max alvaro: 48.6 cm/sec E/E' lat: 9.3 E/E' med: 38.7 MV E/A: 2.3 Ao V2 max: 198.3 cm/sec LV V1 max: 71.8 cm/sec SV(LVOT): 48.6 ml Ao max P.8 mmHg LV V1 max P.1 mmHg Ao V2 mean: 136.5 cm/sec LV V1 mean P.1 mmHg Ao mean P.6 mmHg LV V1 mean: 47.8 cm/sec Ao V2 VTI: 43.9 cm LV V1 VTI: 14.8 cm JANES(I,D): 1.1 cm2 JANES(V,D): 1.2 cm2 PA V2 max: 71.7 cm/sec TR max alvaro: 358.9 cm/sec TR max P.5 mmHg Interpretation Summary The study was technically difficult. Contrast injection was performed. Mildly dilated left ventricle. Severe segmental systolic dysfunction (see wall motion). The estimated ejection fraction is 20 %. The left atrium is mildly enlarged. There is mild mitral annular calcification. Mild (1+) mitral valve insufficiency. Moderate (2+) tricuspid valve insufficiency. Mild aortic stenosis. Trivial aortic valve insufficiency. Right ventricular systolic pressure estimated to be 55 mmHg. Transmitral diastolic flow velocities suggest diastolic dysfunction (pseudonormal pattern). ICD or pacer leads identified within the right atrium ICD or pacer leads identified within the right ventricle. Ordering Physician: Rc Dean/Jorje Timmons Referring Physician: JEMAL WHITAKER Performed By: Dayana Aguilera RDCS
== END ==
PROVIDERS: PCP Family Medicine; Referring Provider Nurse Practitioner Family; Visit Provider Nurse Practitioner Family
DX: I50.9 Heart failure, unspecified (principal); I25.5 Ischemic cardiomyopathy; Z95.810 Presence of automatic (implantable) cardiac defibrillator; Z95.5 Presence of coronary angioplasty implant and graft; M86.9 Osteomyelitis, unspecified
CPT/HCPCS: 96365; 96367; 93306; J7050; Q9957; A4216; C8929

== ENCOUNTER → 2020-07-14 07:59 | Outpatient (CLI) | payer MEDICARE, OTHER, SELFPAY ==
[2020-06-16 15:31] VITALS: BMI 31.0
[2020-07-12 08:20] VITALS: BMI 28.4
[2020-07-14] MEDS: 0.9% NaCl PICC Flush IV ×2 (08:24→10:55)
[2020-07-14] MEDS: 0.9% NaCl IVPB Med Flush (250 mL) 15 ML IV (08:26)
[2020-07-14 08:28] VITALS: BP 120/56; PULSE 67; RESP 16; TEMP 35.8; O2SAT 96; BMI 28.4
[2020-07-14 08:35] LABS: Hematocrit 31.9 % (40-54); Hemoglobin 10.1 g/dL (13.0-16.5); Mean Corp Hgb Conc 31.7 g/dL (32-36); Mean Corpuscular Volume 100.9 fL (80-94); Mean Platelet Vol. 8.9 fl (6.2-12.0); Platelet Count 170 K/mm3 (150-450); RBC Distribution Width CV 14.6 % (11.6-14.6); RBC Distribution Width SD 53.3 fl (35.1-43.9); Red Blood Count 3.16 M/mm3 (4.6-6.2); White Blood Count 4.8 K/mm3 (4.4-11.0)
[2020-07-14 08:43] LABS: Erythrocyte Sedimentation Rate 2 mm/hr (0-20)
[2020-07-14 08:51] LABS: AST(SGOT) 27 U/L (15-37); Alanine Aminotransfer ALT/SGPT 35 U/L (16-61); Albumin, Serum 3.4 g/dL (3.2-5.0); Alkaline Phosphatase 106 U/L (45-117); Anion Gap 5 (5-15); BUN 17 mg/dL (7-18); BUN/Creat Ratio 18.3 RATIO (10-20); Bilirubin, Direct 0.35 mg/dL (0.00-0.30); Calcium,Total 8.4 mg/dL (8.5-10.1); Chloride 103 mmol/L (98-107); Creatinine, Serum 0.93 mg/dL (0.70-1.30); EST Glomerular Filtration Rate 85 mL/min (>60); Est Glom Filt Rate - Afr Amer 103 mL/min (>60); Estimated Creatinine Clearance 75.34 ml/min; Glucose 120 mg/dL (74-106); Potassium 3.4 mmol/L (3.5-5.1); Protein, Total 6.4 g/dL (6.4-8.2); Sodium Level 142 mmol/L (136-145)
[2020-07-14 09:16] LABS: Vancomycin, Trough Level 10.2 ug/mL (5.0-15.0)
== END ==
PROVIDERS: PCP Family Medicine; Referring Provider Internal Medicine Infectious Disease; Visit Provider Internal Medicine Infectious Disease
DX: M86.9 Osteomyelitis, unspecified (principal)
CPT/HCPCS: 96365; 96367; 11042; 80048; 80076; 80202; 85027; 85652; J7050; A4216

== ENCOUNTER → 2020-07-15 07:54 | Outpatient (CLI) | payer MEDICARE, OTHER, SELFPAY ==
[2020-06-16 15:42] VITALS: BMI 31.4
[2020-07-14 13:07] VITALS: BMI 27.1
[2020-07-15 07:55] VITALS: BP 122/56; PULSE 98; RESP 18; TEMP 36.6; O2SAT 93; BMI 28.3
[2020-07-15] MEDS: 0.9% NaCl PICC Flush IV ×2 (08:00→10:09)
[2020-07-15] MEDS: 0.9% NaCl IVPB Med Flush (250 mL) 15 ML IV (08:02)
[2020-07-15 10:12] VITALS: BP 121/59; PULSE 92; RESP 16; TEMP 36.6; O2SAT 95
== END ==
PROVIDERS: PCP Family Medicine; Referring Provider Internal Medicine Infectious Disease; Visit Provider Internal Medicine Infectious Disease
DX: M86.9 Osteomyelitis, unspecified (principal)
CPT/HCPCS: 96365; 96367; J7050; A4216

== ENCOUNTER → 2020-07-16 07:59 | Outpatient (CLI) | payer MEDICARE, OTHER, SELFPAY ==
[2020-06-16 15:42] VITALS: BMI 31.4
[2020-07-15 07:55] VITALS: BMI 28.3
[2020-07-16] MEDS: 0.9% NaCl PICC Flush IV ×2 (08:10→10:13)
[2020-07-16] MEDS: 0.9% NaCl IVPB Med Flush (250 mL) 15 ML IV (08:10)
[2020-07-16 08:17] VITALS: BP 112/59; PULSE 74; RESP 18; TEMP 35.9; O2SAT 95; BMI 28.3
== END ==
PROVIDERS: PCP Family Medicine; Referring Provider Internal Medicine Infectious Disease; Visit Provider Internal Medicine Infectious Disease
DX: M86.9 Osteomyelitis, unspecified (principal)
CPT/HCPCS: 96365; 96367; J7050; A4216

== ENCOUNTER 2020-07-17 08:02 | Outpatient (CLI) | payer MEDICARE, OTHER, SELFPAY ==
[2020-06-16 15:42] VITALS: BMI 31.4
[2020-07-16 08:17] VITALS: BMI 28.3
[2020-07-17 08:15] VITALS: BP 118/63; PULSE 83; RESP 18; TEMP 36.6; O2SAT 94
[2020-07-17] MEDS: 0.9% NaCl PICC Flush IV ×2 (08:35→11:00)
[2020-07-17] MEDS: 0.9% NaCl IVPB Med Flush (250 mL) 15 ML IV (10:45)
== END 2020-07-17 11:05 | disposition home or self-care (01) ==
LOC: MEDOUTP 08:03 → PCU 08:04
PROVIDERS: PCP Family Medicine; Referring Provider Internal Medicine Infectious Disease; Visit Provider Internal Medicine Infectious Disease
DX: M86.9 Osteomyelitis, unspecified (principal)
CPT/HCPCS: 96365; 96367; J7050; A4216

== ENCOUNTER 2020-07-18 08:08 | Outpatient (CLI) | payer MEDICARE, OTHER, SELFPAY ==
[2020-06-16 15:42] VITALS: BMI 31.4
[2020-07-16 08:17] VITALS: BMI 28.3
[2020-07-18 08:10] VITALS: BP 107/57; PULSE 101; RESP 18; TEMP 36.7; O2SAT 95
[2020-07-18] MEDS: 0.9% NaCl PICC Flush IV ×2 (08:19→10:35)
[2020-07-18] MEDS: 0.9% NaCl IVPB Med Flush (250 mL) 15 ML IV (09:05)
== END 2020-07-18 10:40 | disposition home or self-care (01) ==
LOC: MEDOUTP 08:08 → PCU 08:09
PROVIDERS: PCP Family Medicine; Referring Provider Internal Medicine Infectious Disease; Visit Provider Internal Medicine Infectious Disease
DX: M86.9 Osteomyelitis, unspecified (principal)
CPT/HCPCS: 96365; 96367; J7050; A4216

== ENCOUNTER → 2020-07-19 08:04 | Outpatient (CLI) | payer MEDICARE, OTHER, SELFPAY ==
[2020-06-16 15:42] VITALS: BMI 31.4
[2020-07-16 08:17] VITALS: BMI 28.3
[2020-07-19 08:12] VITALS: BP 136/64; PULSE 98; RESP 16; TEMP 36.3; O2SAT 95
[2020-07-19] MEDS: 0.9% NaCl IVPB Med Flush (250 mL) 15 ML IV (08:15)
[2020-07-19] MEDS: 0.9% NaCl PICC Flush IV ×2 (08:15→10:36)
[2020-07-19 10:40] VITALS: BP 113/42; PULSE 86; RESP 16; TEMP 36.5; O2SAT 92
== END ==
PROVIDERS: PCP Family Medicine; Referring Provider Internal Medicine Infectious Disease; Visit Provider Internal Medicine Infectious Disease
DX: M86.9 Osteomyelitis, unspecified (principal)
CPT/HCPCS: 96365; 96367; J7050; A4216

== ENCOUNTER → 2020-07-20 07:48 | Outpatient (CLI) | payer MEDICARE, OTHER, SELFPAY ==
[2020-06-16 15:42] VITALS: BMI 31.4
[2020-07-16 08:17] VITALS: BMI 28.3
[2020-07-20] MEDS: 0.9% NaCl IVPB Med Flush (250 mL) 15 ML IV (07:56)
[2020-07-20] MEDS: 0.9% NaCl PICC Flush IV ×2 (07:56→10:04)
[2020-07-20 07:57] VITALS: BP 119/72; PULSE 52; RESP 16; TEMP 35.9; O2SAT 96
[2020-07-20 10:05] VITALS: BP 100/60; PULSE 70; RESP 16; O2SAT 95
== END ==
PROVIDERS: PCP Family Medicine; Referring Provider Internal Medicine Infectious Disease; Visit Provider Internal Medicine Infectious Disease
DX: M86.9 Osteomyelitis, unspecified (principal)
CPT/HCPCS: 96365; 96367; J7050; A4216

== ENCOUNTER → 2020-07-21 08:34 | Outpatient (CLI) | payer MEDICARE, OTHER, SELFPAY ==
[2020-06-16 15:42] VITALS: BMI 31.4
[2020-07-16 08:17] VITALS: BMI 28.3
[2020-07-21] MEDS: 0.9% NaCl IVPB Med Flush (250 mL) 15 ML IV (08:58)
[2020-07-21] MEDS: 0.9% NaCl PICC Flush IV ×2 (08:58→11:25)
[2020-07-21 09:02] VITALS: BP 127/68; PULSE 87; RESP 16; TEMP 36.2; O2SAT 96; BMI 28.3
[2020-07-21 09:04] LABS: Erythrocyte Sedimentation Rate 5 mm/hr (0-20)
[2020-07-21 09:06] LABS: Hematocrit 32.9 % (40-54); Hemoglobin 10.4 g/dL (13.0-16.5); Mean Corp Hgb Conc 31.6 g/dL (32-36); Mean Corpuscular Hgb 31.8 pg (27.0-32.0); Mean Corpuscular Volume 100.6 fL (80-94); Mean Platelet Vol. 8.8 fl (6.2-12.0); Platelet Count 195 K/mm3 (150-450); RBC Distribution Width CV 14.5 % (11.6-14.6); RBC Distribution Width SD 52.5 fl (35.1-43.9); Red Blood Count 3.27 M/mm3 (4.6-6.2)
[2020-07-21 09:11] LABS: AST(SGOT) 16 U/L (15-37); Alanine Aminotransfer ALT/SGPT 28 U/L (16-61); Albumin, Serum 3.6 g/dL (3.2-5.0); Alkaline Phosphatase 105 U/L (45-117); Anion Gap 4 (5-15); BUN 14 mg/dL (7-18); BUN/Creat Ratio 15.4 RATIO (10-20); Bilirubin, Direct 0.43 mg/dL (0.00-0.30); Calcium,Total 8.5 mg/dL (8.5-10.1); Chloride 102 mmol/L (98-107); Creatinine, Serum 0.91 mg/dL (0.70-1.30); EST Glomerular Filtration Rate 87 mL/min (>60); Est Glom Filt Rate - Afr Amer 105 mL/min (>60); Globulin 3.3 g/dL (2.2-4.2); Glucose 46 mg/dL (74-106); Protein, Total 6.9 g/dL (6.4-8.2); Sodium Level 139 mmol/L (136-145)
[2020-07-21 09:30] LABS: Vancomycin, Trough Level 9.3 ug/mL (5.0-15.0)
[2020-07-21 11:26] VITALS: BP 127/68; PULSE 87; RESP 16; TEMP 36.2; O2SAT 96
[2020-07-21 16:52] LABS: Xtra Tube EP Lab EXTRA TUBE
== END ==
PROVIDERS: PCP Family Medicine; Referring Provider Internal Medicine Infectious Disease; Visit Provider Internal Medicine Infectious Disease
DX: M86.9 Osteomyelitis, unspecified (principal)
CPT/HCPCS: 96365; 96367; 80048; 80076; 80202; 85027; 85652; J7050; A4216

== ENCOUNTER → 2020-07-22 08:10 | Outpatient (CLI) | payer MEDICARE, OTHER, SELFPAY ==
[2020-06-16 15:42] VITALS: BMI 31.4
[2020-07-21 09:02] VITALS: BMI 28.3
[2020-07-22 08:16] VITALS: BP 136/65; PULSE 72; RESP 16; TEMP 36.3; O2SAT 94
[2020-07-22] MEDS: 0.9% NaCl PICC Flush IV ×2 (08:21→10:27)
[2020-07-22] MEDS: 0.9% NaCl IVPB Med Flush (250 mL) 15 ML IV (08:21)
[2020-07-22 10:28] VITALS: BP 109/52; PULSE 84; RESP 18; O2SAT 96
== END ==
PROVIDERS: PCP Family Medicine; Referring Provider Internal Medicine Infectious Disease; Visit Provider Internal Medicine Infectious Disease
DX: M86.9 Osteomyelitis, unspecified (principal)
CPT/HCPCS: 96365; 96367; J7050; A4216

== ENCOUNTER → 2020-07-23 07:58 | Outpatient (CLI) | payer MEDICARE, OTHER, SELFPAY ==
[2020-06-16 15:42] VITALS: BMI 31.4
[2020-07-21 09:02] VITALS: BMI 28.3
[2020-07-23] MEDS: 0.9% NaCl PICC Flush IV (08:09)
[2020-07-23] MEDS: 0.9% NaCl IVPB Med Flush (250 mL) 15 ML IV (08:09)
[2020-07-23 08:13] VITALS: BP 132/76; PULSE 103; RESP 16; TEMP 35.9; O2SAT 96; BMI 28.3
[2020-07-23 10:41] VITALS: BP 134/69; PULSE 95; RESP 18; O2SAT 95
== END ==
PROVIDERS: PCP Family Medicine; Referring Provider Internal Medicine Infectious Disease; Visit Provider Internal Medicine Infectious Disease
DX: M86.9 Osteomyelitis, unspecified (principal)
CPT/HCPCS: 96365; 96367; J7050; A4216

== ENCOUNTER 2020-07-28 13:00 | Outpatient (RCR) | payer MEDICARE, OTHER, SELFPAY ==
[2020-07-02 00:36] VITALS: BP 140/64; PULSE 88; RESP 18; TEMP 36.1
[2020-07-06 08:07] VITALS: BMI 27.1
[2020-07-07 13:02] VITALS: BP 130/75; PULSE 105; TEMP 36.1; BMI 27.1
--- NOTE | 2020-07-07 15:12 | PCM.WC.PN ---
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 Code(s): L97.514 - Non-pressure chronic ulcer of other part of right foot with necrosis of bone (2) Malnutrition Status: Chronic Code(s): E46 - Unspecified protein-calorie malnutrition (3) Amputation of right foot Status: Chronic Qualifiers: Encounter type: sequela Qualified Code(s): S98.911S - Complete traumatic amputation of right foot, level unspecified, sequela Code(s): S98.911A - Complete traumatic amputation of right foot, level unspecified, initial encounter Comment: transmetatarsal amputation (4) Other specified peripheral vascular diseases Status: Chronic Code(s): I73.89 - Other specified peripheral vascular diseases (5) Presence of permanent cardiac pacemaker Status: Chronic Code(s): Z95.0 - Presence of cardiac pacemaker Comment: 2006, 2012 gen change (6) Type 2 diabetes mellitus with diabetic polyneuropathy Status: Chronic Code(s): E11.42 - Type 2 diabetes mellitus with diabetic polyneuropathy (7) Delayed wound healing Status: Chronic Code(s): T14.8XXD - Other injury of unspecified body region, subsequent encounter Type of Wound Date of Service: 07/07/20 Chief Complaint: Follow-up right lateral diabetic foot ulcer History of Wound: 74-year-old male with a left below knee amputation and right transmetatarsal amp follows up for ulcer of lateral foot. He was recently hospitalized and treated for osteomyelitis of the right foot that has exposed bone and radiographic changes. He denies pain. He denies fever, chills, nausea, vomiting. His family member is helping him change his dressings daily with Taazel ag. He takes boost nutritional supplements and is concerned this is contributing to glucose level elevation. He wears a CAM walker to mild ambulation at home to use the restroom, ect. He is scheduled to get his pacemaker battery changed. He continues to go to hemodialysis on a regular basis. He is completing antibiotic course as advised by infectious disease. He relates he also has trouble healing wounds and has had prior dehiscence is even on his left leg amputation site. Therefore he would like an additional week again to consider if he will proceed forward with a delayed primary closure in clinic to the right foot. He relates he has many doctors visits today and the rest of this week and it will be hard for him to keep weight off of his foot. His schedule is more open next week. Progress of Wound: stable - Physical Exam Vital Signs Temp Pulse Resp BP 97.0 F L 105 H 18 130/75 H 07/07/20 13:02 07/07/20 13:02 07/02/20 00:36 07/07/20 13:02 General: Alert, Oriented x3, Cooperative, No apparent distress HEENT: Atraumatic Extremities: No cyanosis, Capillary Refill Less than 3 Seconds, No Calf Tenderness, Diminished Peripheral Pulses, Edema - Mild Skin: Ulcer/ Wound - No purulence, erythema, streaking, odor, infection. Adjacent skin is hairless and atrophic. Probing to deep tissue with bone exostosis no longer present. No maceration. Wound Measurements and Assessment WC - Nurse 1 - General Ulcer Measurement Start: 07/07/20 13:02 Freq: Status: Active Protocol: Activity Type Activity Date Activity User E-Sign Co-Sign Detail Recorded Client Recorded Date Recorded By Document 07/07/20 13:02 HENRY [id number] 07/07/20 13:07 KR 07/07/20 13:02 Wound Center Nurse 1 [Ulcer Assessment] #3- R LAT FOOT -Current Size (cm) - Length 1.4 -Current Size (cm) - Width 1.4 -Current Size (cm) - Depth 0.6 -Total Square Cm 1.96 -Exudate Amt Small -Exudate Type Serosanguineous -Wound Margin Distinct, Outline Attached -Texture (Allison-wound Skin Appearance) Assessed, Scarring -Moisture (Allison-wound Skin Appearance No Abnormality, ) Assessed -Color (Allison-wound Skin Appearance) No Abnormality, Assessed -Temperature (Allison-wound Skin No Abnormality Appearance) (Pt Warm) -Tenderness on Palpation (Allison-wound No Skin Appearance) -Ulcer Cleansing Rinsed/ Irrigated with Saline -Foul Odor after Cleansing No -Anesthetic Used 4% Lidocaine Solution - Nurse 3 - General Ulcer D/C NN Start: 07/07/20 13:02 Freq: Status: Active Protocol: Activity Type Activity Date Activity User E-Sign Co-Sign Detail Recorded Client Recorded Date Recorded By Document 07/07/20 13:33 HENRY [id number] 07/07/20 13:33 KR 07/07/20 13:33 Wound Care Nurse 3 [Wound Dressing] -Ulcer Cleansing Rinsed/ Irrigated with Saline -Foul Odor after Cleansing No -Primary Dressing Covered/Secured Dry Gauze, with Secured with Tape Pain Scale: 0-10 Numeric [Pain] -Is Patient Pain Free? Yes WC - Visit Discharge [Visit Discharge Information] -Discharge Condition Stable -Ambulatory Status Cane -Transportation Private Auto -Accompanied by Musculoskeletal: No Tenderness to Palpation of Joints or Extremities, Muscle Wasting, - - Right transmetatarsal amputation Neurological: - - Lack of normal epicritic sensation to light touch is consistent with his neuropathy status. Psych/Mental Status: Normal Affect, Appropriate Debridement Note Post-Debridement Measurements/Treatment WC - Nurse 3 - General Ulcer D/C NN Start: 07/07/20 13:02 Freq: Status: Active Protocol: Activity Type Activity Date Activity User E-Sign Co-Sign Detail Recorded Client Recorded Date Recorded By Document 07/07/20 13:33 HENRY [id number] 07/07/20 13:33 HENRY 07/07/20 13:33 Wound Care Nurse 3 #3- R LAT FOOT -Ulcer Cleansing Rinsed/ Irrigated with Saline -Foul Odor after Cleansing No -Primary Dressing Covered/Secured with Dry Gauze, Secured with Tape Pain Scale: 0-10 Numeric Is Patient Pain Free? Yes WC - Visit Discharge Discharge Condition Stable Ambulatory Status Cane Transportation Private Auto Accompanied by Wound debrided: lateral foot Laterality: Right Wound Grade/Stage: grade 3 Type of Debridement: Excisional debridement Anesthesia Used: 4% Lidocaine Solution Depth: in the subcutaneous layer Percentage of wound debrided: 100 Instrument Used: #15 blade Tissue Removed: fibrous, devitalized subcutaneous, biofilm, slough Severity: Fat Layer Exposed Amount of bleeding with debridement: Mild Bleeding Controlled with: Pressure Patient tolerated procedure well Assessment/Plan Active Problems (Last Reviewed 06/11/20 @ 13:[address] Huan Bradley, DO) 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) Malnutrition (Chronic) Amputation of right foot (Chronic) transmetatarsal amputation Other specified peripheral vascular diseases (Chronic) Presence of permanent cardiac pacemaker (Chronic) 2006, 2012 gen change Assessment: Right DFU (kerr grade 3). Peripheral vascular disease. Coronary artery disease (EF ~ 19 %). Diabetes with insulin dependency. Polyneuropathy. Osteomyelitis right foot. malnutrition suspected. Chronic kidney disease on hemodialysis Plan: I reviewed and discussed his case. Debridement was performed (excisional subcutaneous) as noted in the clinical panel. He had bone excised previously and this was sent to pathology and microbiology. Pathology was negative for acute osteomyelitis and the microbiology demonstrates Enterococcus cloaca complex. I discussed his concern with Dr. Glass, infectious disease specialist, about proceeding forward with updating his pacemaker while he is on antibiotics for foot infection that is clinically dialyzed and doing well. It is okay to proceed if he is currently undergoing IV antibiotics and is not demonstrating any purulence. He has scheduled the procedure. Revisional operating room surgical intervention is not recommended due to poor cardiac output and compromised vascular status. Hyperbaric oxygen therapy is also not recommended due to EF of ~19%. Vascular intervention was confirmed as guarded with no additional intervention options. His vascular status has been optimized with a recent drug coated balloon angioplasty of the femoral artery with Dr. Busch. To continue offloading with pillow boot while resting in bed and also CAM walker with limited heel touch during short household periods of ambulation. To use assistive device. To complete IV antibiotic course until 07/22/2019 per infectious disease; vancomycin and ertapenam. Serial labs will be followed. To continue to improve glucose management. I recommend segundo or glucerna as a nutritional supplement. Recent foot xrays and labs were reviewed from his hospital admission. I offered him a delayed primary closure in clinic again, and he would like to think about this for another week. He has a lot of appointments this week and thinks this may compromise this procedure. He would like to wait until next week. He understands the anticipated success and sometimes this at least allows deeper wound approximation and closure versus complete closure of the wound. We will also consider if we want to use an incisional wound VAC on this site however it was not my initial recommendation. He understands it is ultimately up to him and he admits he does not want to proceed forward with anything today. We discussed the benefits, risk, anticipated application and healing time and management. To return to clinic in one week or sooner if concerns. I answered all of his questions. 30 to 39 minutes was spent on this encounter. This included face to face and non face to face care including preparing for the visit, reviewing the history, performing the exam, counseling and providing education to the patient, family, or caregiver, ordering medications/test/ procedures if indicated as documented, communicating with other healthcare providers, documenting information in the medical record, interpreting / sharing this information when indicated as documented, and care coordination. Note: Capical speech recognition special forces specialist software was used to create portions of this document. Sound-alike and misspelled words, as well as other special forces specialist errors may be contained in the documentation. ---------. MACRA 2020: reviewed today: Medications and allergies were reviewed and reconciled today. Reviewed 07-07-2019: His BMI is 29.2. His blood pressure was 109/56 which is not elevated. He has a living well. He is not a current tobacco user but it is noted he was a former smoker. He has had a influenza vaccination within the past year.
[2020-07-14 13:07] VITALS: BP 161/56; PULSE 96; RESP 20; TEMP 35.9; BMI 27.1
--- NOTE | 2020-07-14 14:01 | PN.PCM_ITS ---
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 Code(s): L97.514 - Non-pressure chronic ulcer of other part of right foot with necrosis of bone (2) Malnutrition Status: Chronic Code(s): E46 - Unspecified protein-calorie malnutrition (3) Amputation of right foot Status: Chronic Qualifiers: Encounter type: sequela Qualified Code(s): S98.911S - Complete traumatic amputation of right foot, level unspecified, sequela Code(s): S98.911A - Complete traumatic amputation of right foot, level unspecified, initial encounter Comment: transmetatarsal amputation (4) Other specified peripheral vascular diseases Status: Chronic Code(s): I73.89 - Other specified peripheral vascular diseases (5) Presence of permanent cardiac pacemaker Status: Chronic Code(s): Z95.0 - Presence of cardiac pacemaker Comment: 2006, 2012 gen change (6) Type 2 diabetes mellitus with diabetic polyneuropathy Status: Chronic Code(s): E11.42 - Type 2 diabetes mellitus with diabetic polyneuropathy (7) Delayed wound healing Status: Chronic Code(s): T14.8XXD - Other injury of unspecified body region, subsequent encounter Type of Wound Date of Service: 07/14/20 Chief Complaint: Follow-up right lateral diabetic foot ulcer History of Wound: 74-year-old male with a left below knee amputation and right transmetatarsal amp follows up for ulcer of lateral foot. He was recently hospitalized and treated for osteomyelitis of the right foot that has exposed bone and radiographic changes. He denies pain. He denies fever, chills, nausea, vomiting. His family member is helping him change his dressings daily with saline wet to dry gauze or aquacel ag. He takes boost nutritional supplements and is concerned this is contributing to glucose level elevation. He wears a CAM walker to mild ambulation at home to use the restroom, ect. He is scheduled to get his pacemaker battery changed. He continues to go to hemodialysis on a regular basis. He is completing antibiotic course as advised by infectious disease. He defers suture reapproximation of his ulcer site today. He would like to complete his pacemaker and other infection treatment prior to moving forward with this treatment option. Progress of Wound: stable - Physical Exam Vital Signs Temp Pulse Resp BP 96.7 F L 96 20 H 161/56 H 07/14/20 13:07 07/14/20 13:07 07/14/20 13:07 07/14/20 13:07 General: Alert, Oriented x3, Cooperative, No apparent distress HEENT: Atraumatic Extremities: No cyanosis, Capillary Refill Less than 3 Seconds, No Calf Tenderness, Diminished Peripheral Pulses, Edema - decreased Skin: Ulcer/ Wound - No purulence, erythema, streaking, odor, infection. The ulcer does probe deep and there is no longer any exposed bone. The adjacent skin is hairless and atrophic. Wound Measurements and Assessment WC - Nurse 1 - General Ulcer Measurement Start: 07/07/20 13:02 Freq: Status: Active Protocol: Activity Type Activity Date Activity User E-Sign Co-Sign Detail Recorded Client Recorded Date Recorded By Document 07/14/20 13:07 MW [id number] 07/14/20 13:11 MW 07/14/20 13:07 Wound Center Nurse 1 [Ulcer Assessment] #3- R LAT FOOT -Combined with other wound No -Current Size (cm) - Length 1.0 -Current Size (cm) - Width 0.4 -Current Size (cm) - Depth 1.2 -Total Square Cm 0.40 -Photo Taken No -Epithelialization None Present -Tunneling No -Undermining/Tunneling No -Circular Undermining Yes -Wound Margin Thickened -Granulation Amt Medium (34-66%) -Granulation Quality [place] -Slough/Fibrin Yes -Necrosis Amt Small (1-33%) -Necrotic Tissue Type Adherent Slough -Structure Exposed N/A -Texture (Allison-wound Skin Appearance) Assessed, Localized Edema -Moisture (Allison-wound Skin Appearance Assessed, ) Maceration -Color (Allison-wound Skin Appearance) No Abnormality, Assessed -Temperature (Allison-wound Skin No Abnormality Appearance) (Pt Warm) -Tenderness on Palpation (Allison-wound Yes Skin Appearance) -Ulcer Cleansing Rinsed/ Irrigated with Saline -Foul Odor after Cleansing No -Anesthetic Used 4% Lidocaine Solution [Edema Assessment] -Lower Limb Edema Present No - Nurse 2 - General Ulcer CM Notes Start: 07/07/20 13:02 Freq: Status: Active Protocol: Activity Type Activity Date Activity User E-Sign Co-Sign Detail Recorded Client Recorded Date Recorded By Document 07/14/20 13:17 [email or web address] [id number] 07/14/20 13:20 JF 07/14/20 13:17 Wound Center Nurse 2 [Procedure/Treatment] #3- R LAT FOOT -Time 13:17 -Correct Patient Yes -Correct Side, Site, Position Yes -Correct Procedure Yes -Procedure Performed Yes -Type of Procedure Debridement -Clinical Debridement Subcutaneous -Tissue Removed Subcutaneous -Post Debridement (cm) - Length 1 -Post Debridement (cm) - Width 0.5 -Post Debridement (cm) - Depth 1.2 -Total Square (Post) (cm) 0.5 -Area of Debridement (cm) - Length 1 -Area of Debridement (cm) - Width 0.5 -Total Square (Area) (cm) 0.5 -Tunneling No -Undermining/Tunneling No -Circular Undermining No -Wound/Ulcer Outcome Not Healed -Ulcer Cleansing Rinsed/ Irrigated with Saline -Foul Odor after Cleansing No -Bioengineered Tissue No -Bleeding Controlled with Pressure -Offloading Yes -Type of Offloading Surgical Shoe -Debridement - Subq, 1st 20sq cm Yes [See Physician Procedure note for Specifics] Pain Scale: 0-10 Numeric [Pain] -Is Patient Pain Free? Yes Musculoskeletal: No Tenderness to Palpation of Joints or Extremities, Muscle Wasting, - - Left below-knee amputation. Right transmetatarsal amputation. Compartments remain soft. No bogginess or fluctuance on palpation. Neurological: - - Lack of normal epicritic sensation light touch Psych/Mental Status: Normal Affect, Appropriate Debridement Note Post-Debridement Measurements/Treatment WC - Nurse 2 - General Ulcer CM Notes Start: 07/07/20 13:02 Freq: Status: Active Protocol: Activity Type Activity Date Activity User E-Sign Co-Sign Detail Recorded Client Recorded Date Recorded By Document 07/07/20 16:19 TALI [id number] 07/07/20 16:20 PL Document 07/14/20 13:17 [id number] 07/14/20 13:20 07/07/20 07/14/20 16:19 13:17 Wound Center Nurse 2 #3- R LAT FOOT -Time 13:28 13:17 -Correct Patient Yes Yes -Correct Side, Site, Position Yes Yes -Correct Procedure Yes Yes -Procedure Performed Yes Yes -Type of Procedure Debridement Debridement -Clinical Debridement Subcutaneous Subcutaneous -Tissue Removed Subcutaneous Subcutaneous -Post Debridement (cm) - Length 1.4 1 -Post Debridement (cm) - Width 1.4 0.5 -Post Debridement (cm) - Depth 0.6 1.2 -Total Square (Post) (cm) 1.96 0.5 -Area of Debridement (cm) - Length 1.4 1 -Area of Debridement (cm) - Width 1.4 0.5 -Total Square (Area) (cm) 1.96 0.5 -Tunneling No No -Undermining/Tunneling No No -Circular Undermining No No -Wound/Ulcer Outcome Not Healed Not Healed -Ulcer Cleansing Rinsed/ Rinsed/ Irrigated with Irrigated with Saline Saline -Foul Odor after Cleansing No No -Bioengineered Tissue No No -Bleeding Controlled with Pressure -Offloading Yes -Type of Offloading Surgical Shoe -Debridement - Subq, 1st 20sq cm Yes Yes Pain Scale: 0-10 Numeric Is Patient Pain Free? Yes Yes - Nurse 3 - General Ulcer D/C NN Start: 07/07/20 13:02 Freq: Status: Active Protocol: Activity Type Activity Date Activity User E-Sign Co-Sign Detail Recorded Client Recorded Date Recorded By Document 07/07/20 13:33 HENRY [id number] 07/07/20 13:33 HENRY 07/07/20 13:33 Wound Care Nurse 3 #3- R LAT FOOT -Ulcer Cleansing Rinsed/ Irrigated with Saline -Foul Odor after Cleansing No -Primary Dressing Covered/Secured with Dry Gauze, Secured with Tape Pain Scale: 0-10 Numeric Is Patient Pain Free? Yes WC - Visit Discharge Discharge Condition Stable Ambulatory Status Cane Transportation Private Auto Accompanied by Wound debrided: lateral foot Laterality: Right Wound Grade/Stage: grade 3 Type of Debridement: Excisional debridement Anesthesia Used: 5% Lidocaine Gel Depth: in the subcutaneous layer Percentage of wound debrided: 100 Instrument Used: #15 blade Tissue Removed: fibrous, devitalized subcutaneous, biofilm, slough Severity: Fat Layer Exposed Amount of bleeding with debridement: Mild Bleeding Controlled with: Pressure Patient tolerated procedure well Assessment/Plan Active Problems (Last Reviewed 06/11/20 @ 13:[address] Huan Bradley, DO) 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) Malnutrition (Chronic) Amputation of right foot (Chronic) transmetatarsal amputation Other specified peripheral vascular diseases (Chronic) Type 2 diabetes mellitus with diabetic polyneuropathy (Chronic) Delayed wound healing (Chronic) Presence of permanent cardiac pacemaker (Chronic) 2006, 2012 gen change Assessment: Right DFU (kerr grade 3). Peripheral vascular disease. Coronary artery disease (EF ~ 19 %). Diabetes with insulin dependency. Polyneuropathy. Osteomyelitis right foot. malnutrition suspected. Chronic kidney disease on hemodialysis Plan: I reviewed and discussed his case. Debridement was performed (excisional subcutaneous) as noted in the clinical panel. He had bone excised previously and this was sent to pathology and microbiology. Pathology was negative for acute osteomyelitis and the microbiology demonstrates Enterococcus cloaca complex. To follow up with infectious disease specialist this afternoon. [facility] operating room surgical intervention is not recommended due to poor cardiac output and compromised vascular status. Hyperbaric oxygen therapy is also not recommended due to EF of ~19%. Vascular intervention was confirmed as guarded with no additional intervention options. His vascular status has been optimized with a recent drug coated balloon angioplasty of the femoral artery with Dr. Busch. To continue offloading with pillow boot while resting in bed and also CAM walker with limited heel touch during short household periods of ambulation. To use assistive device. To complete IV antibiotic course until 07/22/2019 per infectious disease; vancomycin and ertapenam. To continue to improve glucose management. I recommend segundo or glucerna as a nutritional supplement. Recent foot xrays and labs were reviewed from his hospital admission. I offered him a delayed primary closure in clinic again, and he defers. We discussed the benefits, risk, anticipated application and healing time and management. To return to clinic in two weeks or sooner if concerns. I answered all of his questions. 30 to 39 minutes was spent on this encounter. This included face to face and non face to face care including preparing for the visit, reviewing the history, performing the exam, counseling and providing education to the patient, family, or caregiver, ordering medications/test/ procedures if indicated as documented, communicating with other healthcare providers, documenting information in the medical record, interpreting / sharing this information when indicated as documented, and care coordination. Note: Kuli Kuli speech recognition public safety officer software was used to create portions of this document. Sound-alike and misspelled words, as well as other public safety officer errors may be contained in the documentation. Note: Kuli Kuli speech recognition public safety officer software was used to create portions of this document. Sound-alike and misspelled words, as well as other public safety officer errors may be contained in the documentation.
[2020-07-28 11:16] VITALS: BP 119/47; PULSE 72; RESP 18; TEMP 36.1; BMI 27.1
[2020-07-28 11:58] VITALS: BP 120/50
--- NOTE | 2020-07-28 15:59 | PCM.WC.PN ---
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 Code(s): L97.514 - Non-pressure chronic ulcer of other part of right foot with necrosis of bone (2) Malnutrition Status: Chronic Code(s): E46 - Unspecified protein-calorie malnutrition (3) Amputation of right foot Status: Chronic Qualifiers: Encounter type: sequela Qualified Code(s): S98.911S - Complete traumatic amputation of right foot, level unspecified, sequela Code(s): S98.911A - Complete traumatic amputation of right foot, level unspecified, initial encounter Comment: transmetatarsal amputation (4) Other specified peripheral vascular diseases Status: Chronic Code(s): I73.89 - Other specified peripheral vascular diseases (5) Presence of permanent cardiac pacemaker Status: Chronic Code(s): Z95.0 - Presence of cardiac pacemaker Comment: 2006, 2012 gen change (6) Type 2 diabetes mellitus with diabetic polyneuropathy Status: Chronic Code(s): E11.42 - Type 2 diabetes mellitus with diabetic polyneuropathy (7) Delayed wound healing Status: Chronic Code(s): T14.8XXD - Other injury of unspecified body region, subsequent encounter Type of Wound Date of Service: 07/28/20 Chief Complaint: Follow-up right lateral diabetic foot ulcer History of Wound: 74-year-old male with a left below knee amputation and right transmetatarsal amp follows up for ulcer of lateral foot. He was recently hospitalized and treated for osteomyelitis of the right foot that has exposed bone and radiographic changes. He denies pain. He denies fever, chills, nausea, vomiting. His family member is helping him change his dressings daily with saline wet to dry gauze or aquacel ag. He takes boost nutritional supplements and is concerned this is contributing to glucose level elevation. He wears a CAM walker to mild ambulation at home to use the restroom, ect. He is scheduled to get his pacemaker battery changed. He continues to go to hemodialysis on a regular basis. He is completing antibiotic course as advised by infectious disease. He is ready to proceed forward with a delayed primary closure today in clinic. He also reports his left below-knee amputation stump site has been more irritated and his noticed a fissure. She is concerning the wound is present this past week. He denies trauma. He has been working with a specialist to adjust his prosthesis device recently as well. Progress of Wound: stable right foot. New left leg ulcer - Physical Exam Vital Signs Temp Pulse Resp BP 97 F L 72 18 120/50 L 07/28/20 11:16 07/28/20 11:16 07/28/20 11:16 07/28/20 11:58 General: Alert, Oriented x3, Cooperative, No apparent distress HEENT: Atraumatic Extremities: No cyanosis, Capillary Refill Less than 3 Seconds, No Calf Tenderness, Diminished Peripheral Pulses, Edema, - - Left below-knee amputation. Right transmetatarsal amputation Skin: Ulcer/ Wound - No purulence, erythema, streaking, odor, necrosis or exposed bone to the right foot. There is a pale granular superficial ulcer to the stump of the left leg below knee amputation. Bilateral skin is thin and atrophic and hairless Wound Measurements and Assessment WC - Nurse 1 - General Ulcer Measurement Start: 07/07/20 13:02 Freq: Status: Active Protocol: Activity Type Activity Date Activity User E-Sign Co-Sign Detail Recorded Client Recorded Date Recorded By Document 07/28/20 11:16 [id number] 07/28/20 11:19 RB 07/28/20 11:16 Wound Center Nurse 1 [Ulcer Assessment] #3- R LAT FOOT -Combined with other wound No -Current Size (cm) - Length 0.5 -Current Size (cm) - Width 0.7 -Current Size (cm) - Depth 0.6 -Total Square Cm 0.35 -Tunneling No -Undermining/Tunneling Yes -Undermining/Tunneling Starts (O' 12 clock) -Undermining/Tunneling Ends (O'clock) 12 -Maximum Distance (cm) 0.7 -Circular Undermining Yes -Exudate Amt Medium -Exudate Type Serosanguineous -Wound Margin Thickened -Granulation Amt Medium (34-66%) -Granulation Quality [place] -Slough/Fibrin Yes -Necrosis Amt Small (1-33%) -Structure Exposed N/A -Texture (Allison-wound Skin Appearance) Assessed,Callus -Moisture (Allison-wound Skin Appearance Assessed ) -Color (Allison-wound Skin Appearance) Assessed -Temperature (Allison-wound Skin No Abnormality Appearance) (Pt Warm) -Tenderness on Palpation (Allison-wound No Skin Appearance) -Ulcer Cleansing Wound Cleanser -Foul Odor after Cleansing No -Anesthetic Used 4% Lidocaine Solution GEOVANNI - Nurse 2 - General Ulcer CM Notes Start: 07/07/20 13:02 Freq: Status: Active Protocol: Activity Type Activity Date Activity User E-Sign Co-Sign Detail Recorded Client Recorded Date Recorded By Document 07/28/20 11:24 JF [id number] 07/28/20 11:35 JF 07/28/20 11:24 Wound Center Nurse 2 [Procedure/Treatment] 5 left BKA stump -Time 11:34 -Correct Patient Yes -Correct Side, Site, Position Yes -Correct Procedure Yes -Procedure Performed Yes -Type of Procedure Debridement -Clinical Debridement Subcutaneous -Tissue Removed Subcutaneous -Post Debridement (cm) - Length 0.2 -Post Debridement (cm) - Width 1.2 -Post Debridement (cm) - Depth 0.2 -Total Square (Post) (cm) 0.24 -Area of Debridement (cm) - Length 0.2 -Area of Debridement (cm) - Width 1.2 -Total Square (Area) (cm) 0.24 -Tunneling No -Undermining/Tunneling No -Circular Undermining No -Wound/Ulcer Outcome Not Healed -Ulcer Cleansing Rinsed/ Irrigated with Saline -Foul Odor after Cleansing No -Bioengineered Tissue No -Bleeding Controlled with Pressure -Offloading No -Treatment Response Procedure Tolerated Well -Debridement - Subq, 1st 20sq cm Yes #3- R LAT FOOT -Time 11:29 -Correct Patient No -Correct Side, Site, Position No -Correct Procedure No -Procedure Performed No -Tunneling No -Undermining/Tunneling No -Circular Undermining No -Wound/Ulcer Outcome Not Healed -Ulcer Cleansing Rinsed/ Irrigated with Saline -Foul Odor after Cleansing No -Bioengineered Tissue No -Offloading Yes -Type of Offloading Camwalker -Treatment Response Procedure Tolerated Well -Debridement - Subq, 1st 20sq cm No [See Physician Procedure note for Specifics] Pain Scale: 0-10 Numeric [Pain] -Is Patient Pain Free? Yes GEOVANNI - Nurse 3 - General Ulcer D/C NN Start: 07/07/20 13:02 Freq: Status: Active Protocol: Activity Type Activity Date Activity User E-Sign Co-Sign Detail Recorded Client Recorded Date Recorded By Document 07/28/20 11:58 RB [id number] 07/28/20 11:59 RB 07/28/20 11:58 Wound Care Nurse 3 [Wound Dressing] 5 left BKA stump -Ulcer Cleansing Rinsed/ Irrigated with Saline -Primary Dressing Applied C Hydrogel ($) -Primary Dressing Covered/Secured Dry Gauze, with Secured with Tape #3- R LAT FOOT -Other Dressing betadine gauze -Primary Dressing Covered/Secured Dry Gauze,Dry with Gauze & Roll Gauze,Secured with Tape [Post Procedure Tolerated] -Treatment Response Procedure Tolerated Well Vital Signs [Blood Pressure] -Blood Pressure (90/60-120/80) 120/50 L -Blood Pressure Mean (mm Hg) 73 -Source Monitor -Position Sitting -Blood Pressure Location Left Arm Pain Scale: 0-10 Numeric [Pain] -Is Patient Pain Free? Yes WC - Visit Discharge [Visit Discharge Information] -Discharge Condition Stable -Ambulatory Status Ambulatory -Transportation Private Auto -Medication Reconcilliation completed No & provided to patient/care provider -Clinical Summary of Care Provided Yes Musculoskeletal: No Tenderness to Palpation of Joints or Extremities, Muscle Wasting, - - Compartments soft. No bogginess or fluctuance on palpation. Neurological: - - Lack of normal epicritic sensation to light touch is consistent with neuropathy status Psych/Mental Status: Normal Affect, Appropriate Debridement Note Post-Debridement Measurements/Treatment WC - Nurse 2 - General Ulcer CM Notes Start: 07/07/20 13:02 Freq: Status: Active Protocol: Activity Type Activity Date Activity User E-Sign Co-Sign Detail Recorded Client Recorded Date Recorded By Document 07/07/20 16:19 TALI [id number] 07/07/20 16:20 PL Document 07/14/20 13:17 [id number] 07/14/20 13:20 Document 07/28/20 11:24 [id number] 07/28/20 11:35 07/07/20 07/14/20 07/28/20 16:19 13:17 11:24 Wound Center Nurse 2 5 left BKA stump -Time 11:34 -Correct Patient Yes -Correct Side, Site, Position Yes -Correct Procedure Yes -Procedure Performed Yes -Type of Procedure Debridement -Clinical Debridement Subcutaneous -Tissue Removed Subcutaneous -Post Debridement (cm) - Length 0.2 -Post Debridement (cm) - Width 1.2 -Post Debridement (cm) - Depth 0.2 -Total Square (Post) (cm) 0.24 -Area of Debridement (cm) - Length 0.2 -Area of Debridement (cm) - Width 1.2 -Total Square (Area) (cm) 0.24 -Tunneling No -Undermining/Tunneling No -Circular Undermining No -Wound/Ulcer Outcome Not Healed -Ulcer Cleansing Rinsed/ Irrigated with Saline -Foul Odor after Cleansing No -Bioengineered Tissue No -Bleeding Controlled with Pressure -Offloading No -Treatment Response Procedure Tolerated Well -Debridement - Subq, 1st 20sq cm Yes #3- R LAT FOOT -Time 13:28 13:17 11:29 -Correct Patient Yes Yes No -Correct Side, Site, Position Yes Yes No -Correct Procedure Yes Yes No -Procedure Performed Yes Yes No -Type of Procedure Debridement Debridement -Clinical Debridement Subcutaneous Subcutaneous -Tissue Removed Subcutaneous Subcutaneous -Post Debridement (cm) - Length 1.4 1 -Post Debridement (cm) - Width 1.4 0.5 -Post Debridement (cm) - Depth 0.6 1.2 -Total Square (Post) (cm) 1.96 0.5 -Area of Debridement (cm) - Length 1.4 1 -Area of Debridement (cm) - Width 1.4 0.5 -Total Square (Area) (cm) 1.96 0.5 -Tunneling No No No -Undermining/Tunneling No No No -Circular Undermining No No No -Wound/Ulcer Outcome Not Healed Not Healed Not Healed -Ulcer Cleansing Rinsed/ Rinsed/ Rinsed/ Irrigated with Irrigated with Irrigated with Saline Saline Saline -Foul Odor after Cleansing No No No -Bioengineered Tissue No No No -Bleeding Controlled with Pressure -Offloading Yes Yes -Type of Offloading Surgical Shoe Camwalker -Treatment Response Procedure Tolerated Well -Debridement - Subq, 1st 20sq cm Yes Yes No Pain Scale: 0-10 Numeric Is Patient Pain Free? Yes Yes Yes WC - Nurse 3 - General Ulcer D/C NN Start: 07/07/20 13:02 Freq: Status: Active Protocol: Activity Type Activity Date Activity User E-Sign Co-Sign Detail Recorded Client Recorded Date Recorded By Document 07/07/20 13:33 KR [id number] 07/07/20 13:33 KR Document 07/14/20 14:37 DL [id number] 07/14/20 14:38 DL Document 07/28/20 11:58 RB [id number] 07/28/20 11:59 RB 07/07/20 07/14/20 07/28/20 13:33 14:37 11:58 Wound Care Nurse 3 5 left BKA stump -Ulcer Cleansing Rinsed/ Irrigated with Saline -Primary Dressing Applied C Hydrogel ($) -Primary Dressing Covered/Secured with Dry Gauze, Secured with Tape #3- R LAT FOOT -Ulcer Cleansing Rinsed/ Rinsed/ Irrigated with Irrigated with Saline Saline -Foul Odor after Cleansing No No -Primary Dressing Applied Silvercel -Other Dressing betadine gauze -Primary Dressing Covered/Secured with Dry Gauze, Dry Gauze & Dry Gauze,Dry Secured with Roll Gauze, Gauze & Roll Tape Secured with Gauze,Secured Tape with Tape -Other Covering milton -Silvercel 1 Treatment Response Procedure Procedure Tolerated Well Tolerated Well Vital Signs Blood Pressure (90/60-120/80) 120/50 L Blood Pressure Mean (mm Hg) 73 Source Monitor Position Sitting Blood Pressure Location Left Arm Pain Scale: 0-10 Numeric Is Patient Pain Free? Yes Yes Yes WC - Visit Discharge Discharge Condition Stable Stable Stable Ambulatory Status Cane Ambulatory,Cane Ambulatory Transportation Private Auto Private Auto Private Auto Accompanied by Medication Reconcilliation completed & No provided to patient/care provider Clinical Summary of Care Provided Yes Wound debrided: leg Laterality: Left Wound Grade/Stage: grade 1 Type of Debridement: Excisional debridement Anesthesia Used: 5% Lidocaine Gel Depth: in the subcutaneous layer Percentage of wound debrided: 100 Instrument Used: #15 blade Tissue Removed: fibrous, devitalized subcutaneous, biofilm, slough Severity: Fat Layer Exposed Amount of bleeding with debridement: Mild Bleeding Controlled with: Pressure Patient tolerated procedure well - Additional Wound Wound debrided: lateral foot Laterality: Right Wound Grade/Stage: grade 3 (delayed primary closure performed today) Type of Debridement: Selective debridement Anesthesia Used: 4% Lidocaine Solution, - - Injection: 4 cc of 2% lidocaine plain local infiltration at periulcer site Depth: in the subcutaneous layer Percentage of wound debrided: 100 Instrument Used: #15 blade, - - 2-0 Prolene, hemostat Tissue Removed: fibrous, devitalized subcutaneous, biofilm, slough Severity: Fat Layer Exposed Amount of bleeding with debridement: Mild Bleeding Controlled with: Pressure Patient tolerated procedure: Patient tolerated procedure well Assessment/Plan Active Problems (Last Reviewed 06/11/20 @ 13:[address] Huan Bradley, DO) 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) Malnutrition (Chronic) Amputation of right foot (Chronic) transmetatarsal amputation Other specified peripheral vascular diseases (Chronic) Type 2 diabetes mellitus with diabetic polyneuropathy (Chronic) Delayed wound healing (Chronic) Presence of permanent cardiac pacemaker (Chronic) 2006, 2012 gen change Assessment: Right DFU (delgado grade 3) at transmetatarsal amputation site. New left leg ulcer (Delgado grade 1) at below knee amputation site. Peripheral vascular disease. Coronary artery disease (EF ~ 19 %). Diabetes with insulin dependency. Polyneuropathy. Osteomyelitis right foot. malnutrition suspected. Chronic kidney disease on hemodialysis Plan: I reviewed and discussed his case. Debridement was performed (excisional subcutaneous) as noted in the clinical panel. He had bone excised previously and this was sent to pathology and microbiology. Pathology was negative for acute osteomyelitis and the microbiology demonstrates Enterococcus cloaca . He has completed a course of antibiotics (vancomycin and ertapenam), and there are no longer any signs of local or systemic infection. He was previously under the care of infectious disease physician, Dr. Glass. Revisional operating room surgical intervention is not recommended due to poor cardiac output and compromised vascular status. Hyperbaric oxygen therapy is also not recommended due to EF of ~19%. Vascular intervention was confirmed as guarded with no additional intervention options. His vascular status has been optimized with a recent drug coated balloon angioplasty of the femoral artery with Dr. Busch. To continue offloading with pillow boot while resting in bed and also CAM walker with limited heel touch during short household periods of ambulation. To use assistive device. . To continue to improve glucose management. I recommend segundo or glucerna as a nutritional supplement. Recent foot xrays and labs were reviewed from his hospital admission. I offered him a delayed primary closure in clinic again, and he is amendable to proceed at this time. Local anesthetic was administered prior to the procedure. The area was also prepped with Betadine and 2-0 Prolene was applied to reapproximate the freshly debrided wound edges. This was done in a no touch technique and was successfully reapproximated with no tension. Vertical mattress retention and horizontal mattress sutures were placed. Verbal consent was obtained prior to performing the procedure and he will try his best to stay off of his foot this next week. We discussed the benefits, risk, anticipated application and healing time and management. He tolerated the procedure well. Betadine gauze dressing was applied. He was advised to keep this clean, dry, and intact until next week. His new left leg superficial granular healthy noninfected ulcer is noted on the left leg. He changes daily with hydrogel and gauze. To avoid direct pressure. To continue to work with his prosthetic adjustment specialist. There are no local or systemic signs of infection noted. Is also noted he completed a course of IV culture guided antibiotics for his foot. From a podiatry standpoint it is okay to proceed forward with any pacemaker adjustments. He has also seen the infectious disease specialist in regards to this topic. To return to clinic in one week or sooner if concerns. I answered all of his questions. Note: I AND [employer] speech recognition emerging technologies director software was used to create portions of this document. Sound-alike and misspelled words, as well as other emerging technologies director errors may be contained in the documentation. The problems addressed require a moderate decision making level which includes one or more chronic illnesses (w/ exacerbation, progression, or side effects), two or more stable chronic illnesses, one undiagnosed new problem w/ uncertain prognosis, one acute illness with systemic symptoms, or one acute complicated injury. The medical decision making level is moderate. There is noted moderate risk of morbidity after considering this treatment plan and diagnostic data. Considerations were given to prescription management, decisions regarding surgical options, or social determinants of health.
== END 2020-08-01 23:59 ==
LOC: WC 13:00
PROVIDERS: PCP Family Medicine; Referring Provider Family Medicine; Visit Provider Nurse Practitioner
DX: E11.51 Type 2 diabetes mellitus with diabetic peripheral angiopathy without gangrene (principal); E11.622 Type 2 diabetes mellitus with other skin ulcer; Z89.431 Acquired absence of right foot; Z95.0 Presence of cardiac pacemaker; E11.42 Type 2 diabetes mellitus with diabetic polyneuropathy; L97.512 Non-pressure chronic ulcer of other part of right foot with fat layer exposed; E11.22 Type 2 diabetes mellitus with diabetic chronic kidney disease; Z99.2 Dependence on renal dialysis; N18.6 End stage renal disease; I25.10 Atherosclerotic heart disease of native coronary artery without angina pectoris
CPT/HCPCS: 11042

== ENCOUNTER 2020-08-06 04:39 | Inpatient (IN) | payer MEDICARE, OTHER, SELFPAY ==
[2020-08-04 11:03] VITALS: BMI 27.1
[2020-08-06] VITALS (12 sets, daily range): BP systolic 113–157; BP diastolic 63–95; PULSE 87–103; RESP 18–28; TEMP 36.4–36.9; O2SAT 95–100; BMI 27.6; BMI 27.9; BMI 27.8
--- NOTE | 2020-08-06 04:51 | RAD_ITS ---
HISTORY: N/V,CHILLS, HARD TO BREATH--TESTED FOR COVID MULTIPLE TIMES EXAM: XR Chest 1 View: COMPARISON: June 11, 2020 FINDINGS: # of images incl. paperwork: 2 Sternal wires and mediastinal clips persists. Left chest wall cardiac pacer with a subclavian approach is unchanged. Wire within the left neck is unchanged. Pulmonary hypoexpansion with elevation of the right hemidiaphragm and right basilar atelectasis or scarring is the same The left lung is relatively free of disease Heart is not enlarged. No acute osseous pathology perceived. Pulmonary vascularity is indistinct. No effusions. RAD/Chest 1 View (Portable) IMPRESSION: No acute cardiopulmonary disease.. at 0537 Reported and signed by: Jamal Lundberg MD Electronically Signed: Jamal Lundberg MD at 5:36 EST Tel , Service support ,
--- NOTE | 2020-08-06 04:51 | EKG12_ITS ---
Test Reason : GENERAL WEAKNESS Blood Pressure : / mmHG Vent. Rate : 099 BPM Atrial Rate : 099 BPM P-R Int : 166 ms QRS Dur : 180 ms QT Int : 418 ms P-R-T Axes : 007 162 -03 degrees QTc Int : 536 ms Atrial-sensed ventricular-paced rhythm Biventricular pacemaker detected Occasional PVC Abnormal ECG Confirmed by DEBORAH ELLSWORTH, ANGEL ([id number]), makeup editor LEA ALDANA ([id number]) on 08/06/2020 10:59:51 AM Referred By: Confirmed By:ANGEL CABRERA MD
--- NOTE | 2020-08-06 04:53 | ED.DCSUM_ITS ---
History of Present Illness Chief Complaint: General Illness Informant: Patient, Family Narrative: 74-year-old male presenting with nausea and vomiting of 1 day duration. Patient states that he woke up yesterday with nausea and vomiting. No diarrhea. No fevers. He notes some mild shortness of breath. He denies any abdominal pain. Patient is a diabetic. He has not checked his blood glucose. He states he has not taken his insulin. Patient denies any bad food exposures. tells me he is presenting the same way he presented on the and 11 June. However on review of the chart he is was presenting with shortness of breath at that time. He underwent treatment for a lower extremity ulcer which is now healing. He required long-term antibiotics. tells me that Dr. Puneet brooks saw the wound approximately 36 hours ago put stitches in it. She states it looks very good and there not to change the dressing for couple more days. - Past Medical History (1) History of angioplasty of peripheral vessel Status: Chronic (2) Amputation of right foot Status: Chronic Comment: transmetatarsal amputation (3) Below-knee amputation of left lower extremity Status: Chronic (4) Biventricular implantable cardioverter-defibrillator (ICD) in situ Status: Chronic (5) Coronary artery disease involving [place] coronary artery of [place] heart Status: Chronic Comment: MAYS to LAD, SVG to PDA 10/2003; 3.0 x 12 mm Rebel BMS to pD1 03/27/19 (6) Delayed wound healing Status: Chronic (7) Diabetes mellitus type 2 with atherosclerosis of arteries of extremities Status: Chronic (8) 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 (9) Ischemic cardiomyopathy Status: Chronic (10) ALL treated with BiPAP Status: Chronic Comment: With O2 2L (11) Type 2 diabetes mellitus with diabetic polyneuropathy Status: Chronic Past Medical History - Allergies and Home Meds Allergies/Adverse Reactions: Allergies amiodarone Allergy (Severe, Verified 08/06/20 04:46) pulmonary fibrosis sotalol Allergy (Severe, Verified 08/06/20 04:46) intolerant levofloxacin [From Levaquin] Allergy (Verified 08/06/20 04:46) Pain in joints LEG CRAMPING gabapentin Adverse Reaction (Verified 08/06/20 04:46) Diarrhea latex Adverse Reaction (Verified 08/06/20 04:46) Rash Surgical History: coronary bypass surgery Lives: Spouse/ Significant Other Smoking Status: Former smoker Drugs: None - Family History Maternal Family History: Family History (Last Reviewed 08/03/20 @ 13:04 by Elsie Wagner) Sister Diabetes Mother Heart disease Father Diabetes Review of Systems General: Denies: Chills, Fever, Sweats Eyes: Denies: Visual changes - bilaterally, Diplopia ENT: Denies: Rhinorrhea, Sore throat Cardiovascular: Denies: Chest pain, Palpitations Respiratory: Reports: Dyspnea. Denies: Cough, Dyspnea on exertion Gastrointestinal: Reports: Nausea, Vomiting. Denies: Abdominal pain, Diarrhea, Melena, Hematochezia Genitourinary: Denies: Dysuria, Hematuria, Frequency Musculoskeletal: Denies: Back pain, Extremity Pain Skin: Reports: Wounds. Denies: Rash Neurological: Denies: Headache, Weakness, Numbness Physical Exam Vital Signs/Narrative: Vital Signs Temp Pulse Resp BP Pulse Ox 08/06/20 04:41 97.6 F L 103 H 18 137/72 H 96 Inital Vital Signs reviewed: Yes General: Well nourished, Well developed, No Acute Distress, - - Patient appears very nauseous holding emesis basin Head: Normocephalic, Atraumatic Eyes: Perrl, EOMI ENT: Moist mucous membranes, No rhinorrhea Neck: Supple, Nontender Cardiovascular: Regular rate, No murmurs, Tachycardia Respiratory: No distress, CTA bilaterally, Chest nontender Abdomen: Soft, Nontender, Nondistended, Normal bowel sounds Back: Nontender, Normal Inspection Extremities: Edema - 1+, - - There is no significant erythema of the foot or leg. I did not fully remove the dressing Skin: No rash, Jaundice Neurological: Alert, Oriented x3, Cranial nerves II-XII grossly intact, Normal Strength, Normal Sensation Psychological: Normal affect, Normal Mood Diagnostic/Tx/Re-eval Clinical Impression(s) from Imaging Studies Chest X-Ray 08/06/20 04:51 IMPRESSION: No acute cardiopulmonary disease.. at 0537 Reported and signed by: Jamal Lundberg MD Electronically Signed: Jamal Lundberg MD at 5:36 EST Tel , Service support , Laboratory Last Values WBC 7.0 K/mm3 (4.4-11.0) 08/06/20 05:05 RBC 3.37 M/mm3 (4.6-6.2) L 08/06/20 05:05 Hgb 10.5 g/dL (13.0-16.5) L 08/06/20 05:05 Hct 33.1 % (40-54) L 08/06/20 05:05 MCV 98.2 fL (80-94) H 08/06/20 05:05 MCH 31.2 pg (27.0-32.0) 08/06/20 05:05 MCHC 31.7 g/dL (32-36) L 08/06/20 05:05 RDW Std Deviation 50.6 fl (35.1-43.9) H 08/06/20 05:05 RDW Coeff of Jac 14.2 % (11.6-14.6) 08/06/20 05:05 Plt Count 176 K/mm3 (150-450) 08/06/20 05:05 MPV 9.6 fl (6.2-12.0) 08/06/20 05:05 Immature Gran % (Auto) 0.600 % (0.0-0.9) 08/06/20 05:05 Neut % (Auto) 85.4 % (47-70) H 08/06/20 05:05 Lymph % (Auto) 5.3 % (19-41) L 08/06/20 05:05 [place] % (Auto) 8.4 % (0-10) 08/06/20 05:05 Eos % (Auto) 0.0 % (0-5) 08/06/20 05:05 Baso % (Auto) 0.3 % (0-1) 08/06/20 05:05 Absolute Neuts (auto) 6.0 X10^3/uL (2.0-7.7) 08/06/20 05:05 Absolute Lymphs (auto) 0.37 X10^3/uL (0.83-4.51) L 08/06/20 05:05 Nucleated RBC % 0 % (0-5) 08/06/20 05:05 Differential Comment SCANNED 08/06/20 05:05 Anisocytosis RARE 08/06/20 05:05 Macrocytosis RARE 08/06/20 05:05 PT 15.5 SECONDS (11.7-14.9) H 08/06/20 05:05 INR 1.3 08/06/20 05:05 APTT 35.8 Seconds (24.1-36.2) 08/06/20 05:05 Sodium 133 mmol/L (136-145) L 08/06/20 05:05 Potassium 4.2 mmol/L (3.5-5.1) 08/06/20 05:05 Chloride 95 mmol/L (98-107) L 08/06/20 05:05 Carbon Dioxide 23.0 mmol/L (21.0-32.0) 08/06/20 05:05 Anion Gap 15 (5-15) 08/06/20 05:05 BUN 26 mg/dL (7-18) H 08/06/20 05:05 Creatinine 1.15 mg/dL (0.70-1.30) 08/06/20 05:05 Estim Creat Clear Calc 60.93 ml/min 08/06/20 05:05 Est GFR (MDRD) Af Amer 80 mL/min (>60) 08/06/20 05:05 Est GFR (MDRD) Non-Af 66 mL/min (>60) 08/06/20 05:05 BUN/Creatinine Ratio 22.6 RATIO (10-20) H 08/06/20 05:05 Glucose 359 mg/dL (74-106) H 08/06/20 05:05 Lactic Acid 3.5 mmol/L (0.4-1.9) H* 08/06/20 05:05 Calcium 9.1 mg/dL (8.5-10.1) 08/06/20 05:05 Total Bilirubin 3.10 mg/dL (0.20-1.00) H 08/06/20 05:05 AST 62 U/L (15-37) H 08/06/20 05:05 ALT 46 U/L (16-61) 08/06/20 05:05 Alkaline Phosphatase 116 U/L (45-117) 08/06/20 05:05 Troponin I 0.036 ng/mL (<0.045) 08/06/20 05:05 Total Protein 7.2 g/dL (6.4-8.2) 08/06/20 05:05 Albumin 3.6 g/dL (3.2-5.0) 08/06/20 05:05 Globulin 3.6 g/dL (2.2-4.2) 08/06/20 05:05 Albumin/Globulin Ratio 1.0 RATIO (0.9-2.4) 08/06/20 05:05 Lipase 25 U/L (73-393) L 08/06/20 05:05 Urine Color Yellow (Yellow) 08/06/20 06:50 Urine Clarity Clear (Clear) 08/06/20 06:50 Urine pH 5.0 (5.0 - 8.0) 08/06/20 06:50 Ur Specific [place] 1.020 (1.002-1.030) 08/06/20 06:50 Urine Protein 15 mg/dl (Negative) H 08/06/20 06:50 Urine Glucose (UA) 1000 mg/dl (Normal) H 08/06/20 06:50 Urine Ketones 150 mg/dl (Negative) H 08/06/20 06:50 Urine Occult Blood 25 /ul (Negative) H 08/06/20 06:50 Urine Nitrite Negative (Negative) 08/06/20 06:50 Urine Bilirubin Negative mg/dL (Negative) 08/06/20 06:50 Urine Urobilinogen Normal mg/dl (Normal) 08/06/20 06:50 Ur Leukocyte Esterase Negative /ul (Negative) 08/06/20 06:50 Urine RBC 0 SEEN /hpf (0-5) 08/06/20 06:50 Urine WBC 0 SEEN /hpf (0-5) 08/06/20 06:50 Ur Squamous Epith Cells 0 SEEN /hpf (0-5) 08/06/20 06:50 Urine Bacteria 0 SEEN /hpf (None Seen) 08/06/20 06:50 Urine Mucus 0 SEEN /hpf (<or=2+) 08/06/20 06:50 Clinical Impression(s) from Imaging Studies Abdomen/Pelvis CT 08/06/20 06:50 IMPRESSION: Colonic diverticulosis. No obstruction. Wall thickening of the distal stomach with gastritis versus ulcer disease. Heterogeneous appearance of the liver. No biliary dilatation. Mild ascites in the abdomen and pelvis. Electronically Signed: Edwin Robles MD at 8:52 EST , Service support , - EKG Initial EKG Interpretation: Paced - EKG is atrially sensed ventricularly paced rhythm. Rate 99. - Medical Decision Making IV established the patient received Phenergan and IV fluids. Patient's white count is normal. His lactic acid is significantly elevated at 3.5. He does still have preserved capillary refill. He is not hypotensive. I do not see a medication that could obviously cause a lactic acidosis. No fever. CT of the abdomen pelvis will be ordered. ED Disposition - Plan for ED Patient: Disposition: Acute Care [facility] Diagnosis: Elevated lactic acid level, Intractable vomiting with nausea, Decubitus ulcer of foot, stage 3, Elevated bilirubin, Hyperglycemia due to diabetes mellitus
[2020-08-06 05:16] LABS: Absolute Lymphocyte Count 0.37 X10^3/uL (0.83-4.51); Basophil# 0.02 X10^3/uL; Basophil% 0.3 % (0-1); Hematocrit 33.1 % (40-54); Hemoglobin 10.5 g/dL (13.0-16.5); Lymphocyte # 0.37 X10^3/ul (4.0); Lymphocyte % 5.3 % (19-41); Mean Corp Hgb Conc 31.7 g/dL (32-36); Mean Corpuscular Hgb 31.2 pg (27.0-32.0); Mean Corpuscular Volume 98.2 fL (80-94); Mean Platelet Vol. 9.6 fl (6.2-12.0); Monocyte# 0.59 X10^3/uL; Monocyte% 8.4 % (0-10); NRBC Flagged by Analyzer 0 % (0-5); Neutrophil # 5.98 X10^3/uL (2.7-7.7); Neutrophil % 85.4 % (47-70); POSITIVE DIFFERENTIAL YES; Platelet Count 176 K/mm3 (150-450); RBC Distribution Width CV 14.2 % (11.6-14.6); RBC Distribution Width SD 50.6 fl (35.1-43.9); Red Blood Count 3.37 M/mm3 (4.6-6.2)
[2020-08-06] MEDS: proMETHazine 25 MG/ML Syringe 6.25 MG IV ×2 (05:17→06:58)
[2020-08-06] MEDS: 0.9% Normal Saline 1,000 ML 1000 ML IV (05:17)
[2020-08-06 05:18] LABS: Differential Indicated SCAN CRITERIA MET
[2020-08-06 05:25] LABS: International Normalized Ratio 1.3; Prothrombin Time (Protime)PT. 15.5 SECONDS (11.7-14.9)
[2020-08-06 05:26] LABS: Partial Thromboplast Time 35.8 Seconds (24.1-36.2)
[2020-08-06 05:37] LABS: AST(SGOT) 62 U/L (15-37); Alanine Aminotransfer ALT/SGPT 46 U/L (16-61); Albumin, Serum 3.6 g/dL (3.2-5.0); Alkaline Phosphatase 116 U/L (45-117); Anion Gap 15 (5-15); Anisocytosis RARE; BUN 26 mg/dL (7-18); BUN/Creat Ratio 22.6 RATIO (10-20); Calcium,Total 9.1 mg/dL (8.5-10.1); Chloride 95 mmol/L (98-107); Creatinine, Serum 1.15 mg/dL (0.70-1.30); Differential Comment SCANNED; EST Glomerular Filtration Rate 66 mL/min (>60); Est Glom Filt Rate - Afr Amer 80 mL/min (>60); Estimated Creatinine Clearance 60.93 ml/min; Globulin 3.6 g/dL (2.2-4.2); Glucose 359 mg/dL (74-106); Lipase 25 U/L (73-393); Macrocytosis RARE; Potassium 4.2 mmol/L (3.5-5.1); Protein, Total 7.2 g/dL (6.4-8.2); Sodium Level 133 mmol/L (136-145)
[2020-08-06] MEDS: 0.9% Normal Saline 1,000 ML 150 ML IV ×2 (05:43→10:52)
[2020-08-06 05:46] LABS: Lactic Acid 3.5 mmol/L (0.4-1.9)
--- NOTE | 2020-08-06 06:50 | CT_ITS ---
STUDY: CT ABDOMEN AND PELVIS WITH CONTRAST REASON FOR EXAM: Male, 74 years old. NAUSEA AND VOMITING. PRIOR CHOLECYSTECTOMY RADIATION DOSAGE (If Supplied By Facility): CTDIvol = ( 20.00 ) mGy, DLP = ( 1365.51 ) mGycm TECHNIQUE: Transaxial images were obtained from the dome of the diaphragm to the symphysis pubis without oral contrast. IV 75mL Isovue-370 was administered. Sagittal and coronal images were reconstructed. Individualized dose optimization techniques were used for this CT. COMPARISON: None. FINDINGS: There are fibrotic densities of the lung bases. There are calcifications along the diaphragmatic surface. There is small right pleural effusion. There is sternotomy wires. There are pacemaker wires in the heart. There is heterogeneous appearance of the liver. The gallbladder is not seen consistent with cholecystectomy. Normal spleen. Normal pancreas. Normal bilateral adrenal glands. There is 1.3 cm cyst of the right kidney. Normal left kidney. There is wall thickening of the distal stomach. Normal small intestine. There are multiple colonic diverticula consistent with diverticulosis. The appendix is visualized and appears normal. There is diffuse atherosclerotic calcification of the abdominal aorta, without a demonstrated aneurysm. Normal inferior vena cava. Normal retroperitoneum. Normal urinary bladder. There is mild free fluid in the abdomen and pelvis. There are subcutaneous calcifications of the lower abdominal wall. Degenerative change of the spine and hips. CT/Abdomen/Pelvis W IV Cont ONLY IMPRESSION: Colonic diverticulosis. No obstruction. Wall thickening of the distal stomach with gastritis versus ulcer disease. Heterogeneous appearance of the liver. No biliary dilatation. Mild ascites in the abdomen and pelvis. Electronically Signed: Edwin Robles MD at 8:52 EST , Service support ,
[2020-08-06] MEDS: 0.9% Normal Saline 1,000 ML 999 ML IV (06:53)
[2020-08-06 06:54] LABS: Bacteria 0 SEEN /hpf (None Seen); Mucous, Urine 0 SEEN /hpf (<or=2+); Red Blood Cells-Urine 0 SEEN /hpf (0-5); Squamous Epithelial Cells - UA 0 SEEN /hpf (0-5); White Blood Cells 0 SEEN /hpf (0-5)
[2020-08-06 06:55] LABS: Color, Urine Yellow (Yellow); Glucose, Dipstick 1000 mg/dl (Normal); Leukocyte Esterase-Dipstick Negative /ul (Negative); Nitrite-Dipstick Negative (Negative); Occult Blood-Urine 25 /ul (Negative); Protein-Dipstick 15 mg/dl (Negative); Urine Bilirubin Dipstick Negative (Negative); Urine Clarity Clear (Clear); Urine Urobilinogen Normal (Normal)
[2020-08-06 07:08] LABS: Ketone-Dipstick 150 mg/dl (Negative)
[2020-08-06 09:06] LABS: Bedside Glucose 318 mg/dL (70-110)
[2020-08-06 09:15] LABS: Reflex Lactate? Y
[2020-08-06 10:31] LABS: Lactic Acid 2.8 mmol/L (0.4-1.9)
[2020-08-06 11:40] LABS: Bedside Glucose 311 mg/dL (70-110)
[2020-08-06] MEDS: 0.9% Saline Lock 10 ML Syringe IV ×3 (12:11→23:59)
[2020-08-06] MEDS: Ondansetron 4 MG/2 ML Vial IV ×2 (12:11→23:58)
[2020-08-06] MEDS: Insulin Lispro 100 UNIT/ML INSULN.PEN 10 UNIT SC ×2 (12:13→17:09)
[2020-08-06] MEDS: Insulin Lispro 100 UNIT/ML INSULN.PEN SC ×3 (12:14→21:56)
--- NOTE | 2020-08-06 12:33 | PCM.HP.STD ---
History of Present Illness Date of Admission: 08/06/20 Chief Complaint: Nausea and vomiting The patient is a 74 year old M with a PMH as below who presents from home with 1 day of nausea and vomiting. He denies any diarrhea. No abdominal pain or shortness of breath. He also denies any fevers or chills. He states that the only thing that he ate that could have caused this was a macaroni salad that was just a few days old at the time. He states that he has not been checking his blood sugar and has not been taking his insulin consistently either. In the ED vital signs are unremarkable, and lab work did not show a leukocytosis. He did have an elevated lactic acid of 3.3 as well as an elevated blood sugar to 359. His UA also demonstrated an elevated urine glucose to 1000. He recently completed long-term antibiotics for osteo that has been managed by podiatry. 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) Malnutrition (Chronic) Amputation of right foot (Chronic) transmetatarsal amputation Other specified peripheral vascular diseases (Chronic) Type 2 diabetes mellitus with diabetic polyneuropathy (Chronic) Delayed wound healing (Chronic) History of angioplasty of peripheral vessel (Chronic ~05/04/20) Ischemic cardiomyopathy (Chronic) Biventricular implantable cardioverter-defibrillator (ICD) in situ (Chronic) 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) 2006, 2012 gen change History of coronary artery stent placement (Chronic ~03/2019) 3.0 x 12 mm Rebel BMS to pD1 03/27/19 Peripheral vascular disease due to secondary diabetes (Chronic) Coronary artery disease involving [place] coronary artery of [place] heart (Chronic) MAYS to LAD, SVG to PDA 10/2003; 3.0 x 12 mm Rebel BMS to pD1 03/27/19 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) Medical History: Medical History (Last Reviewed 08/03/20 @ 13:04 by Elsie Wagner) Decubitus ulcer of foot, stage 3 (Acute) L89.893 Infected ulcer of skin (Acute) L98.499, L08.9 Osteomyelitis of right foot (Chronic) M86.9 Dyspnea (Acute) R06.00 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) L97.514 Malnutrition (Chronic) E46 Amputation of right foot (Chronic) S98.911A transmetatarsal amputation Other specified peripheral vascular diseases (Chronic) I73.89 Type 2 diabetes mellitus with diabetic polyneuropathy (Chronic) E11.42 Delayed wound healing (Chronic) T14.8XXD Ischemic cardiomyopathy (Chronic) I25.5 Biventricular implantable cardioverter-defibrillator (ICD) in situ (Chronic) Z95.810 Diaphragm paralysis (Chronic) J98.6 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) G47.33 With O2 2L Peripheral vascular disease due to secondary diabetes (Chronic) E13.51 Coronary artery disease involving [place] coronary artery of [place] heart (Chronic) I25.10 MAYS to LAD, SVG to PDA 10/2003; 3.0 x 12 mm Rebel BMS to pD1 03/27/19 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) E11.59, I70.209 COPD (chronic obstructive pulmonary disease) J44.9 Glaucoma H40.9 Wears hearing aid in both ears Z97.4 Open wound of knee, leg, and ankle, complicated (Resolved) S81.009A, S81.809A, S91.009A Surgical wound dehiscence (Resolved) T81.31XA Allergies amiodarone Allergy (Severe, Verified 08/06/20 04:46) pulmonary fibrosis sotalol Allergy (Severe, Verified 08/06/20 04:46) intolerant levofloxacin [From Levaquin] Allergy (Verified 08/06/20 04:46) Pain in joints LEG CRAMPING gabapentin Adverse Reaction (Verified 08/06/20 04:46) Diarrhea latex Adverse Reaction (Verified 08/06/20 04:46) Rash Home Medications: Ambulatory Orders Medication Instructions Recorded Oxycodone HCl/Acetaminophen 1 - 2 tab PO Q4H PRN PRN 03/17/15 [Percocet 5-325] acetaminophen 500 mg tablet 1,000 mg PO TID PRN tab 08/05/19 levothyroxine 200 mcg tablet 200 mcg PO DAILY 08/05/19 omeprazole 40 mg capsule,delayed 40 mg PO DAILY 08/05/19 release prednisone 2.5 mg tablet 2.5 mg PO DAILY 08/05/19 aspirin 81 mg tablet,delayed 81 mg PO DAILY 12/17/19 release Insulin Glargine,Hum.rec.anlog 15 unit SQ BID 06/09/20 [Lantus] Insulin Regular, Human [Novolin R] See Protocol SC QHS 06/09/20 Bumetanide 2 mg PO DAILY 06/11/20 Insulin Regular, Human [Novolin R] 10 units SC BREAKFAST 06/11/20 Insulin Regular, Human [Novolin R] 20 units SC DINNER 06/11/20 Clopidogrel Bisulfate [Clopidogrel] 75 mg PO DAILY 08/06/20 Lisinopril 2.5 mg PO DAILY 08/06/20 Metoprolol(XL)Succ [Toprol Xl 50 mg PO DAILY 08/06/20 (Beta Kavita)] Potassium Chloride [K-Tab ER] 40 meq PO DAILY 08/06/20 Pravastatin Sodium 40 mg PO QHS 08/06/20 Surgical History: Surgical History (Last Reviewed 08/03/20 @ 13:04 by Elsie Wagner) History of angioplasty of peripheral vessel (Chronic) Onset Date: ~05/04/20 Z98.62 Presence of permanent cardiac pacemaker (Chronic) Z95.0 2006, 2012 gen change History of coronary artery stent placement (Chronic) Onset Date: ~03/2019 Z95.5 3.0 x 12 mm Rebel BMS to pD1 03/27/19 History of amputation of toe Z89.429 All toes right foot History of coronary artery bypass graft Onset Date: ~2003 Z95.1 MAYS to LAD, SVG to PDA 10/2003 History of left below knee amputation Onset Date: ~2014 Z89.512 History of bilateral cataract extraction Z98.41, Z98.42 History of cholecystectomy Z90.49 History of endoscopy Z98.890 Surgical History: coronary bypass surgery Lives: Spouse/ Significant Other Smoking Status: Former smoker Tobacco Use: Cigarettes Alcohol: None Drugs: None - *Family History Maternal Family History: Family History (Last Reviewed 08/03/20 @ 13:04 by Elsie Wagner) Sister Diabetes Mother Heart disease Father Diabetes Review of Systems Constitutional: Denies: Chills, Fever, Weight Change HEENT: Denies: Head Aches, Sinus Congestion, Sinus Drainage Cardiovascular: Denies: Chest Pain, Palpitations Respiratory: Denies: Cough, Shortness of breath at rest, Sputum production Gastrointestinal: Reports: Nausea, Vomiting. Denies: Abdominal Pain Genitourinary: Denies: Dysuria Musculoskeletal: Denies: Joint Pain, Joint Tenderness Skin: Reports: Wounds - Right foot wound is healing. Denies: Rash Neurological: Denies: Numbness, Tingling, Focal weakness Psychiatric: Denies: Anxiety, Depression Hematologic/ Lymphatic: Denies: Easy Bruising, Easy Bleeding VTE Information - Inpt Only VTE Present on Admission: No Patient Problems: Active and Suspected Problems (Last Reviewed 08/03/20 @ 13:04 by Elsie Wagner) Elevated lactic acid level (Acute) Intractable vomiting with nausea (Acute) Elevated bilirubin (Acute) Decubitus ulcer of foot, stage 3 (Acute) - Physical Exam Vitals/I&O's: Vital Signs Temp Pulse Resp BP Pulse Ox 98.5 F 98 18 127/76 H 100 08/06/20 10:45 08/06/20 10:45 08/06/20 10:45 08/06/20 10:45 08/06/20 10:45 Oxygen Flow Rate (L/min) 2 Oxygen Delivery Method Nasal Cannula Weight: 199 lb 11.821 oz Body Mass Index (BMI) 27.8 Finger Stick Blood Glucose 318 Intake and Output for Last 24 Hours 08/04/20 08/05/20 08/06/20 23:59 23:59 23:59 Intake Total 1999 Balance 1999 General: Alert, Oriented x3, Cooperative, No apparent distress HEENT: Atraumatic, PERRLA, EOMI, Normocephalic Oral: Moist Mucosa Neck: Supple, No JVD Lungs: Clear to auscultation, Normal air movement, No rhonchi, No wheeze, No rales Cardiovascular: Regular rate, Regular Rhythm, Normal S1, Normal S2, No murmurs Abdomen: Soft, Non Tender, Non-Distended, No Hepato-splenomegaly Extremities: Capillary Refill Less than 3 Seconds, Edema - 1+ pitting in his right lower extremity, status post amputation of his left lower extremity Skin: No rashes, No breakdown, Ulcer/ Wound - Wound is dressed and apparently healing well, had seen podiatry the day before Neurological: Neuro grossly intact, Sensory exam intact to light touch and pain - Though chronically diminished in his lower extremities Psych/Mental Status: Normal Affect, Appropriate Microbiology Past 72 Hours 08/06/20 05:15 Mucosa - Nasopharyngeal SARS-CoV-2 Antigen (Rapid) - Final Laboratory Results 08/06/20 05:05: WBC 7.0, RBC 3.37 L, Hgb 10.5 L, Hct 33.1 L, MCV 98.2 H, MCH 31.2, MCHC 31.7 L, RDW Std Deviation 50.6 H, RDW Coeff of Jac 14.2, Plt Count 176, MPV 9.6, Immature Gran % (Auto) 0.600, Neut % (Auto) 85.4 H, Lymph % (Auto) 5.3 L, [place] % (Auto) 8.4, Eos % (Auto) 0.0, Baso % (Auto) 0.3, Absolute Neuts (auto) 6.0, Absolute Lymphs (auto) 0.37 L, Nucleated RBC % 0, Differential Comment SCANNED, Anisocytosis RARE, Macrocytosis RARE 08/06/20 05:05: PT 15.5 H, INR 1.3, APTT 35.8 08/06/20 05:05: Sodium 133 L, Potassium 4.2, Chloride 95 L, Carbon Dioxide 23.0, Anion Gap 15, BUN 26 H, Creatinine 1.15, Estim Creat Clear Calc 60.93, Est GFR (MDRD) Af Amer 80, Est GFR (MDRD) Non-Af 66, BUN/Creatinine Ratio 22.6 H, Glucose 359 H, Calcium 9.1, Total Bilirubin 3.10 H, AST 62 H, ALT 46, Alkaline Phosphatase 116, Troponin I 0.036, Total Protein 7.2, Albumin 3.6, Globulin 3.6, Albumin/Globulin Ratio 1.0, Lipase 25 L 08/06/20 05:05: Lactic Acid 3.5 H* 08/06/20 06:50: Urine Color Yellow, Urine Clarity Clear, Urine pH 5.0, Ur Specific [place] 1.020, Urine Protein 15 H, Urine Glucose (UA) 1000 H, Urine Ketones 150 H, Urine Occult Blood 25 H, Urine Nitrite Negative, Urine Bilirubin Negative, Urine Urobilinogen Normal, Ur Leukocyte Esterase Negative, Urine RBC 0 SEEN, Urine WBC 0 SEEN, Ur Squamous Epith Cells 0 SEEN, Urine Bacteria 0 SEEN, Urine Mucus 0 SEEN 08/06/20 09:00: POC Glucose 318 H 08/06/20 09:45: Lactic Acid 2.8 H* 08/06/20 11:32: POC Glucose 311 H Current Medications Acetaminophen (Acetaminophen 325 Mg Tablet) 650 mg PO Q6H PRN PRN PRN Reason: Pain Score 1-10/Temp > 100.7 F Dextrose (Dextrose 50%-Water 25 Gm/50 Ml Disp.Syrin) 0 gm IV X1 PRN; Protocol PRN Reason: Hypoglycemia Enoxaparin Sodium (Enoxaparin 40 Mg/0.4 Ml Syringe) 40 mg SC DAILY RAYMON Glucagon (Glucagon 1 Mg/Ml Syringe) 1 mg IM .X1 PRN PRN Reason: Hypoglycemia Sodium Chloride () 1,000 mls @ 150 mls/hr IV .[id number] RAYMON Last Admin: 08/06/20 10:52 Dose: 150 mls/hr Documented by: Sodium Chloride () 250 mls @ 15 mls/hr IV .[id number] PRN PRN Reason: Saline Flush Sodium Chloride () 250 mls @ 15 mls/hr IV .[id number] PRN PRN Reason: Additional IVPB Infusion Insulin Glargine (Insulin Glargine 100 Units/Ml Pen) 15 units SC BREAKFAST RAYMON Insulin Glargine (Insulin Glargine 100 Units/Ml Pen) 15 units SC DINNER RAYMON Insulin Human Lispro (Insulin Lispro 100 Unit/Ml Insuln.Pen) 10 unit SC BREAKFAST [facility] Last Admin: 08/06/20 12:13 Dose: 10 u Documented by: Insulin Human Lispro (Insulin Lispro 100 Unit/Ml Insuln.Pen) 10 unit SC DINNER [facility] Insulin Human Lispro (Insulin Lispro 100 Unit/Ml Insuln.Pen) 10 unit SC LUNCH RAYMON Insulin Human Lispro (Insulin Lispro 100 Unit/Ml Insuln.Pen) 0 unit SC ACHS [facility]; Protocol Last Admin: 08/06/20 12:14 Dose: 6 u Documented by: Melatonin (Melatonin 3 Mg Tablet) 3 mg PO QHS PRN PRN PRN Reason: INSOMNIA Ondansetron HCl (Ondansetron 4 Mg/2 Ml Vial) 4 mg IV Q8H PRN PRN PRN Reason: NAUSEA/VOMITING Last Admin: 08/06/20 12:11 Dose: 4 mg Documented by: Prochlorperazine Edisylate (Prochlorperazine 10 Mg/2 Ml Vial) 5 mg IV Q4H PRN PRN PRN Reason: Breakthrough nausea/vomiting Sodium Chloride (0.9% Saline Lock 10 Ml Syringe) 10 - 40 ml IV UD PRN PRN Reason: SALINE FLUSH Last Admin: 08/06/20 12:11 Dose: 10 ml Documented by: Assessment/Plan All Active Problems (Last Reviewed 08/03/20 @ 13:04 by Elsie Wagner) Ulcer of left lower extremity with fat layer exposed (Resolved) Elevated lactic acid level (Acute) Intractable vomiting with nausea (Acute) Elevated bilirubin (Acute) Decubitus ulcer of foot, stage 3 (Acute) Infected ulcer of skin (Acute) Dyspnea (Acute) Open wound of knee, leg, and ankle, complicated (Resolved) Surgical wound dehiscence (Resolved) 1. Nausea and vomiting secondary to hyperglycemia/DM 2 with peripheral neuropathy and diabetic foot ulcers -Start IV fluids to assist with his hyperglycemia and resume his home insulin -We will place him on a carb restricted diet -Monitor with Accu-Cheks AC at bedtime -Consult wound care 2. CAD status post CABG and stents/HTN/HLD/chronic systolic CHF -Recent echo July 22 with an EF of 20% and an RVSP of 55 mmHg -Continue with aspirin, Plavix, lisinopril, metoprolol, pravastatin -He is receiving some IV fluids therefore will hold his Bumex 3. Hypothyroidism -Stable -Continue Synthroid 4. GERD -Stable -Continue with PPI 5. COPD not in exacerbation -Continue with a low-dose chronic steroid DVT: Lovenox Inpatient E&M: [id number] Init Hosp L3
--- NOTE | 2020-08-06 12:56 | NURSING ---
wound photo: right lateral foot
[2020-08-06] MEDS: Enoxaparin 40 MG/0.4 ML Syringe SC (13:31)
[2020-08-06 17:15] LABS: Bedside Glucose 256 mg/dL (70-110)
--- NOTE | 2020-08-06 20:40 | CPS ---
Set up Pt's home BiPAP machine with 2 lpm bleed in O2
[2020-08-06] MEDS: Pravastatin 40 MG Tablet PO (21:56)
[2020-08-06] MEDS: Pantoprazole Sodium 40 MG Tablet PO (21:56)
[2020-08-06 22:45] LABS: Bedside Glucose 239 mg/dL (70-110)
[2020-08-07] VITALS (7 sets, daily range): BP systolic 99–120; BP diastolic 46–56; PULSE 80–106; RESP 16–18; TEMP 36.3–37.2; O2SAT 2–100
[2020-08-07] MEDS: Acetaminophen 325 MG Tablet 650 MG PO ×2 (00:07→21:03)
[2020-08-07 06:12] LABS: Absolute Lymphocyte Count 0.55 X10^3/uL (0.83-4.51); Absolute Neutrophil Count 4.6 X10^3/uL (2.0-7.7); Basophil# 0.03 X10^3/uL; Basophil% 0.5 % (0-1); Eosinophil# 0.03 X10^3/uL; Eosinophils% 0.5 % (0-5); Hematocrit 30.3 % (40-54); Hemoglobin 9.5 g/dL (13.0-16.5); Lymphocyte # 0.55 X10^3/ul (4.0); Lymphocyte % 9.1 % (19-41); Mean Corp Hgb Conc 31.4 g/dL (32-36); Mean Corpuscular Hgb 31.1 pg (27.0-32.0); Mean Corpuscular Volume 99.3 fL (80-94); Mean Platelet Vol. 9.2 fl (6.2-12.0); Monocyte# 0.81 X10^3/uL; Monocyte% 13.4 % (0-10); NRBC Flagged by Analyzer 0 % (0-5); Neutrophil # 4.58 X10^3/uL (2.7-7.7); POSITIVE DIFFERENTIAL YES; Platelet Count 155 K/mm3 (150-450); RBC Distribution Width CV 14.1 % (11.6-14.6); RBC Distribution Width SD 51.4 fl (35.1-43.9); Red Blood Count 3.05 M/mm3 (4.6-6.2)
[2020-08-07 06:22] LABS: Differential Indicated SCAN CRITERIA MET
[2020-08-07 06:35] LABS: Anisocytosis RARE; Differential Comment SCANNED; Macrocytosis RARE
[2020-08-07 06:38] LABS: AST(SGOT) 445 U/L (15-37); Alanine Aminotransfer ALT/SGPT 284 U/L (16-61); Albumin, Serum 2.9 g/dL (3.2-5.0); Alkaline Phosphatase 90 U/L (45-117); Anion Gap 5 (5-15); BUN 26 mg/dL (7-18); BUN/Creat Ratio 30.3 RATIO (10-20); Calcium,Total 8.5 mg/dL (8.5-10.1); Chloride 106 mmol/L (98-107); Creatinine, Serum 0.86 mg/dL (0.70-1.30); EST Glomerular Filtration Rate 93 mL/min (>60); Est Glom Filt Rate - Afr Amer 112 mL/min (>60); Estimated Creatinine Clearance 81.48 ml/min; Glucose 141 mg/dL (74-106); Potassium 3.6 mmol/L (3.5-5.1); Protein, Total 5.9 g/dL (6.4-8.2); Sodium Level 140 mmol/L (136-145)
[2020-08-07] MEDS: Levothyroxine 100 MCG Tablet 200 MCG PO (06:44)
[2020-08-07 09:31] LABS: Bedside Glucose 116 mg/dL (70-110)
[2020-08-07] MEDS: Pantoprazole Sodium 40 MG Tablet PO (10:11)
[2020-08-07] MEDS: Insulin Lispro 100 UNIT/ML INSULN.PEN 10 UNIT SC ×2 (10:11→17:52)
[2020-08-07] MEDS: Aspirin E.C. 81 MG Tablet PO (10:12)
[2020-08-07] MEDS: Lisinopril 2.5 MG Tablet PO (10:13)
[2020-08-07] MEDS: Metoprolol(XL)Succ 50 MG Tablet PO (10:13)
[2020-08-07] MEDS: Clopidogrel Bisulfate 75 MG Tablet PO (10:13)
[2020-08-07] MEDS: Enoxaparin 40 MG/0.4 ML Syringe SC (10:13)
[2020-08-07] MEDS: predniSONE 5 MG Tablet 2.5 MG PO (10:13)
[2020-08-07 13:21] LABS: Bedside Glucose 134 mg/dL (70-110)
--- NOTE | 2020-08-07 14:05 | CM.UR ---
RN CM Assessment Introduced role of RN CM to patient.? Patient is alert, oriented and able?to participate in RN CM Assessment. ?Care providers, pharmacy, and demographics verified. Presentation: Nausea and vomiting Admit Dx: hyperglycemia Re-Admit: no Barriers/Issues: none identified. PCP: Dr. Glasgow Specialists: Dr. Sow, Dr. Anaya (EP for pacer); Dr. Busch (vasc); [place] [facility] (fascione); Dr. Crawford (pulm) and Dr. Joshi (cardio in [place]. [facility] Insurance: MCR A/B and MMO supplement Rx Benefit:? Yes. ?LNOK: , Alexia LW/HPOA: States has and is , Alexia, is HCPOA however not on file at hospital. Living Arrangements:? Lives in bi-level home with . Denies any concerns at home. ADL?s: Independent. Transportation: . States she won't let him drive, even though he feels he can. DME: tub bench, bipap, walker, cane and oxygen concentrator. Getting stair glide put in this week. HHC: None SNF: None Goal: Home, NN DC PLAN: [place], no needs anticipated. Alerted patient that case management will remain available should any needs arise. Verb understanding. Kerry Quispe RN, CCM.
[2020-08-07] MEDS: Bumetanide 2 MG Tablet PO (15:37)
[2020-08-07] MEDS: 0.9% Saline Lock 10 ML Syringe IV ×2 (15:37→21:03)
--- NOTE | 2020-08-07 17:05 | PN_ITS ---
Patient Problems: Active and Suspected Problems (Last Reviewed 08/03/20 @ 13:04 by Elsie Wagner) Elevated lactic acid level (Acute) Intractable vomiting with nausea (Acute) Elevated bilirubin (Acute) Hyperglycemia due to diabetes mellitus (Acute) Decubitus ulcer of foot, stage 3 (Acute) Subjective: Feels little better today, however he is requiring oxygen and was slightly short of breath. Vitals/I&O's: Vital Signs Temp Pulse Resp BP Pulse Ox 98.2 F 106 H 18 102/55 L 96 08/07/20 16:15 08/07/20 16:15 08/07/20 16:15 08/07/20 16:15 08/07/20 16:15 Oxygen Flow Rate (L/min) 2 Oxygen Delivery Method Nasal Cannula Weight: 199 lb 11.821 oz Body Mass Index (BMI) 27.8 Finger Stick Blood Glucose 318 Intake and Output for Last 24 Hours 08/05/20 08/06/20 08/07/20 23:59 23:59 23:59 Intake Total 3344.17 / 3344.17 400 / 400 Output Total 0 / 0 Balance 3344.17 / 3344.17 400 / 400 General: Alert, Oriented x3, Cooperative, No apparent distress HEENT: Atraumatic, PERRLA, EOMI, Normocephalic Oral: Moist Mucosa Neck: Supple, No JVD Lungs: Normal air movement, No rhonchi, No wheeze, minimal rales, diminished at bases Cardiovascular: Regular rate, Regular Rhythm, Normal S1, Normal S2, No murmurs Abdomen: Soft, Non Tender, Non-Distended, No Hepato-splenomegaly Extremities: Capillary Refill Less than 3 Seconds, Edema - 1+ pitting in his right lower extremity, status post amputation of his left lower extremity Skin: No rashes, No breakdown, Ulcer/ Wound - Wound is dressed and apparently healing well, had seen podiatry the day before Neurological: Neuro grossly intact, Sensory exam intact to light touch and pain - Though chronically diminished in his lower extremities Psych/Mental Status: Normal Affect, Appropriate Microbiology Past 72 Hours 08/06/20 05:15 Mucosa - Nasopharyngeal SARS-CoV-2 Antigen (Rapid) - Final Laboratory Results 08/06/20 17:07: POC Glucose 256 H 08/06/20 21:49: POC Glucose 239 H 08/07/20 05:45: WBC 6.0, RBC 3.05 L, Hgb 9.5 L, Hct 30.3 L, MCV 99.3 H, MCH 31.1, MCHC 31.4 L, RDW Std Deviation 51.4 H, RDW Coeff of Jac 14.1, Plt Count 155, MPV 9.2, Immature Gran % (Auto) 0.500, Neut % (Auto) 76.0 H, Lymph % (Auto) 9.1 L, Gonzales % (Auto) 13.4 H, Eos % (Auto) 0.5, Baso % (Auto) 0.5, Absolute Neuts (auto) 4.6, Absolute Lymphs (auto) 0.55 L, Nucleated RBC % 0, Differential Comment SCANNED, Anisocytosis RARE, Macrocytosis RARE 08/07/20 05:45: Sodium 140, Potassium 3.6, Chloride 106, Carbon Dioxide 29.0, Anion Gap 5, BUN 26 H, Creatinine 0.86, Estim Creat Clear Calc 81.48, Est GFR (MDRD) Af Amer 112, Est GFR (MDRD) Non-Af 93, BUN/Creatinine Ratio 30.3 H, Glucose 141 H, Calcium 8.5, Total Bilirubin 1.40 H, AST 445 H, ALT 284 H, Alkaline Phosphatase 90, Total Protein 5.9 L, Albumin 2.9 L, Globulin 3.0, Albumin/Globulin Ratio 1.0 08/07/20 09:11: POC Glucose 116 H 08/07/20 13:12: POC Glucose 134 H Current Medications Acetaminophen (Acetaminophen 325 Mg Tablet) 650 mg PO Q6H PRN PRN PRN Reason: Pain Score 1-10/Temp > 100.7 F Last Admin: 08/07/20 00:07 Dose: 650 mg Documented by: Aspirin (Aspirin E.C. 81 Mg Tablet) 81 mg PO DAILY [facility] Last Admin: 08/07/20 10:12 Dose: 81 mg Documented by: Bumetanide (Bumetanide 2 Mg Tablet) 2 mg PO DAILY [facility] Last Admin: 08/07/20 15:37 Dose: 2 mg Documented by: Clopidogrel Bisulfate (Clopidogrel Bisulfate 75 Mg Tablet) 75 mg PO DAILY [facility] Last Admin: 08/07/20 10:13 Dose: 75 mg Documented by: Dextrose (Dextrose 50%-Water 25 Gm/50 Ml Disp.Syrin) 0 gm IV X1 PRN; Protocol PRN Reason: Hypoglycemia Enoxaparin Sodium (Enoxaparin 40 Mg/0.4 Ml Syringe) 40 mg SC DAILY [facility] Last Admin: 08/07/20 10:13 Dose: 40 mg Documented by: Glucagon (Glucagon 1 Mg/Ml Syringe) 1 mg IM .X1 PRN PRN Reason: Hypoglycemia Sodium Chloride () 250 mls @ 15 mls/hr IV .[id number] PRN PRN Reason: Saline Flush Sodium Chloride () 250 mls @ 15 mls/hr IV .[id number] PRN PRN Reason: Additional IVPB Infusion Insulin Glargine (Insulin Glargine 100 Units/Ml Pen) 15 units SC BREAKFAST [facility] Last Admin: 08/07/20 10:11 Dose: 15 u Documented by: Insulin Glargine (Insulin Glargine 100 Units/Ml Pen) 15 units SC DINNER [facility] Last Admin: 08/06/20 17:09 Dose: 15 u Documented by: Insulin Human Lispro (Insulin Lispro 100 Unit/Ml Insuln.Pen) 10 unit SC BREAKFAST [facility] Last Admin: 08/07/20 10:11 Dose: 10 u Documented by: Insulin Human Lispro (Insulin Lispro 100 Unit/Ml Insuln.Pen) 10 unit SC DINNER [facility] Last Admin: 08/06/20 17:09 Dose: 10 u Documented by: Insulin Human Lispro (Insulin Lispro 100 Unit/Ml Insuln.Pen) 10 unit SC LUNCH [facility] Last Admin: 08/07/20 14:07 Dose: Not Given Documented by: Insulin Human Lispro (Insulin Lispro 100 Unit/Ml Insuln.Pen) 0 unit SC ACHS [facility]; Protocol Last Admin: 08/07/20 14:00 Dose: Not Given Documented by: Levothyroxine Sodium (Levothyroxine 100 Mcg Tablet) 200 mcg PO DAILY@0600 [facility] Last Admin: 08/07/20 06:44 Dose: 200 mcg Documented by: Lisinopril (Lisinopril 2.5 Mg Tablet) 2.5 mg PO DAILY [facility] Last Admin: 08/07/20 10:13 Dose: 2.5 mg Documented by: Melatonin (Melatonin 3 Mg Tablet) 3 mg PO QHS PRN PRN PRN Reason: INSOMNIA Metoprolol Succinate (Metoprolol(Xl)Succ 50 Mg Tablet) 50 mg PO DAILY [facility] Last Admin: 08/07/20 10:13 Dose: 50 mg Documented by: Nutritional Formula ([facility]utritional [facility] (Alok) Packet) [facility] Last Admin: 08/07/20 10:43 Dose: 1 packet Documented by: Ondansetron HCl (Ondansetron 4 Mg/2 Ml Vial) 4 mg IV Q8H PRN PRN PRN Reason: NAUSEA/VOMITING Last Admin: 08/06/20 23:58 Dose: 4 mg Documented by: Oxycodone HCl (Oxycodone 5 Mg Tablet) 1 - 2 mg PO Q4H PRN PRN PRN Reason: Pain Score 4-10 Pantoprazole Sodium (Pantoprazole Sodium 40 Mg Tablet) 40 mg PO DAILY [facility] Last Admin: 08/07/20 10:11 Dose: 40 mg Documented by: Potassium Chloride (Potassium Chloride 20 Meq Tablet) 40 meq PO DAILY [facility] Last Admin: 08/07/20 10:12 Dose: 40 meq Documented by: Pravastatin Sodium (Pravastatin 40 Mg Tablet) 40 mg PO QHS [facility] Last Admin: 08/06/20 21:56 Dose: 40 mg Documented by: Prednisone (Prednisone 5 Mg Tablet) [facility] Last Admin: 08/07/20 10:13 Dose: 2.5 mg Documented by: Prochlorperazine Edisylate (Prochlorperazine 10 Mg/2 Ml Vial) 5 mg IV Q4H PRN PRN PRN Reason: Breakthrough nausea/vomiting Sodium Chloride (0.9% Saline Lock 10 Ml Syringe) 10 - 40 ml IV UD PRN PRN Reason: SALINE FLUSH Last Admin: 08/07/20 15:37 Dose: 10 ml Documented by: STROKE Vital Signs/Narrative: Vital Signs Temp Pulse Resp BP Pulse Ox 08/07/20 16:15 98.2 F 106 H 18 102/55 L 96 08/07/20 14:50 98.2 F 89 16 99/54 L 90 Medical Necessity - Tobacco Use Smoking Status: Former smoker Tobacco Use: Cigarettes Assessment/Plan All Active Problems (Last Reviewed 08/03/20 @ 13:04 by Elsie Wagner) Ulcer of left lower extremity with fat layer exposed (Resolved) Elevated lactic acid level (Acute) Intractable vomiting with nausea (Acute) Elevated bilirubin (Acute) Hyperglycemia due to diabetes mellitus (Acute) Decubitus ulcer of foot, stage 3 (Acute) Infected ulcer of skin (Acute) Dyspnea (Acute) Open wound of knee, leg, and ankle, complicated (Resolved) Surgical wound dehiscence (Resolved) 1. Nausea and vomiting secondary to hyperglycemia/DM 2 with peripheral neuropathy and diabetic foot ulcers -Continue with insulin -We will place him on a carb restricted diet -Monitor with Accu-Cheks AC at bedtime -Consult wound care 2. CAD status post CABG and stents/HTN/HLD/chronic systolic CHF -Recent echo July 22 with an EF of 20% and an RVSP of 55 mmHg -Continue with aspirin, Plavix, lisinopril, metoprolol, pravastatin -See IV fluids and restart Bumex. Will evaluate his oxygen requirement in the a.m. 3. Hypothyroidism -Stable -Continue Synthroid 4. GERD -Stable -Continue with PPI 5. COPD not in exacerbation -Continue with a low-dose chronic steroid DVT: Lovenox Inpatient E&M: [id number] [facility] Hosp L2
[2020-08-07 17:35] LABS: Bedside Glucose 174 mg/dL (70-110)
[2020-08-07] MEDS: Insulin Lispro 100 UNIT/ML INSULN.PEN SC (17:52)
[2020-08-07] MEDS: Pravastatin 40 MG Tablet PO (21:03)
[2020-08-07 21:05] LABS: Bedside Glucose 142 mg/dL (70-110)
[2020-08-08 02:10] VITALS: BP 107/53; PULSE 95; RESP 17; TEMP 37.2; O2SAT 100
[2020-08-08] MEDS: oxyCODONE 5 MG Tablet PO (02:16)
[2020-08-08] MEDS: Levothyroxine 100 MCG Tablet 200 MCG PO (05:14)
[2020-08-08 09:45] VITALS: BP 116/56; PULSE 80; RESP 16; TEMP 36.6; O2SAT 93
[2020-08-08] MEDS: Insulin Lispro 100 UNIT/ML INSULN.PEN 10 UNIT SC (09:53)
[2020-08-08 09:54] VITALS: PULSE 80
[2020-08-08] MEDS: Metoprolol(XL)Succ 50 MG Tablet PO (09:54)
[2020-08-08] MEDS: Clopidogrel Bisulfate 75 MG Tablet PO (09:54)
[2020-08-08] MEDS: Lisinopril 2.5 MG Tablet PO (09:54)
[2020-08-08] MEDS: Aspirin E.C. 81 MG Tablet PO (09:54)
[2020-08-08] MEDS: predniSONE 5 MG Tablet 2.5 MG PO (09:55)
[2020-08-08] MEDS: 0.9% Saline Lock 10 ML Syringe IV ×2 (09:55→13:59)
[2020-08-08] MEDS: Pantoprazole Sodium 40 MG Tablet PO (09:55)
[2020-08-08] MEDS: Enoxaparin 40 MG/0.4 ML Syringe SC (09:57)
[2020-08-08] MEDS: Bumetanide 1 MG/4 ML Vial 2 MG IV (10:02)
[2020-08-08 10:21] LABS: Bedside Glucose 81 mg/dL (70-110)
[2020-08-08 12:00] VITALS: O2SAT 95
[2020-08-08 13:45] VITALS: BP 109/51; PULSE 108; RESP 16; TEMP 36.4; O2SAT 95
[2020-08-08] MEDS: Acetaminophen 325 MG Tablet 650 MG PO (13:59)
[2020-08-08 14:06] LABS: Bedside Glucose 173 mg/dL (70-110)
--- NOTE | 2020-08-08 14:40 | PCM.DC ---
- Discharge Diagnoses Current Active Problems: Current Active and Chronic Problems (Last Reviewed 08/03/20 @ 13:04 by Elsie Wagner) Below-knee amputation of left lower extremity (Chronic) Elevated lactic acid level (Acute) Intractable vomiting with nausea (Acute) Elevated bilirubin (Acute) Hyperglycemia due to diabetes mellitus (Acute) Decubitus ulcer of foot, stage 3 (Acute) Amputation of right foot (Chronic) transmetatarsal amputation Type 2 diabetes mellitus with diabetic polyneuropathy (Chronic) Delayed wound healing (Chronic) History of angioplasty of peripheral vessel (Chronic ~05/04/20) Ischemic cardiomyopathy (Chronic) Biventricular implantable cardioverter-defibrillator (ICD) in situ (Chronic) 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 Coronary artery disease involving [place] coronary artery of [place] heart (Chronic) MAYS to LAD, SVG to PDA 10/2003; 3.0 x 12 mm Rebel BMS to pD1 03/27/19 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) You will use the following diet at home:: Calorie/Carbohydrate Controlled (specify 1200, 1400, etc), Cardiac, Fluid restricted (specify 2000 mls, 1500 mls) - 1500 Your food should be the consistency of: Regular Your liquids should be the consistency of: Regular/Thin Discharge Activity: Return to Normal Activity Call your doctor if you observe: Fever of 101 or Higher, Shortness of breath, Dizziness, Fainting spells, Swelling in the ankles, Chest pain, Increased palpitations (irregular heartbeat) Allergies/Adverse Reactions: Allergies amiodarone Allergy (Severe, Verified 08/06/20 04:46) pulmonary fibrosis sotalol Allergy (Severe, Verified 08/06/20 04:46) intolerant levofloxacin [From Levaquin] Allergy (Verified 08/06/20 04:46) Pain in joints LEG CRAMPING gabapentin Adverse Reaction (Verified 08/06/20 04:46) Diarrhea latex Adverse Reaction (Verified 08/06/20 04:46) Rash Medications to take at Discharge Oxycodone HCl/Acetaminophen [Percocet 5-325] 1 - 2 tab PO Q4H PRN PRN 03/17/15 acetaminophen 500 mg tablet 1,000 mg PO TID PRN tab 08/05/19 levothyroxine 200 mcg tablet 200 mcg PO DAILY 08/05/19 omeprazole 40 mg capsule,delayed release 40 mg PO DAILY 08/05/19 prednisone 2.5 mg tablet 2.5 mg PO DAILY 08/05/19 aspirin 81 mg tablet,delayed release 81 mg PO DAILY 12/17/19 Insulin Glargine,Hum.rec.anlog [Lantus] 15 unit SQ BID 06/09/20 Insulin Regular, Human [Novolin R] See Protocol SC QHS 06/09/20 Bumetanide 2 mg PO DAILY 06/11/20 Insulin Regular, Human [Novolin R] 10 units SC BREAKFAST 06/11/20 Insulin Regular, Human [Novolin R] 20 units SC DINNER 06/11/20 Clopidogrel Bisulfate [Clopidogrel] 75 mg PO DAILY 08/06/20 Lisinopril 2.5 mg PO DAILY 08/06/20 Metoprolol(XL)Succ [Toprol Xl (Beta Kavita)] 50 mg PO DAILY 08/06/20 Potassium Chloride [K-Tab ER] 40 meq PO DAILY 08/06/20 Pravastatin Sodium 40 mg PO QHS 08/06/20 Primary Care Physician: Jcarlos Glasgow MD [Primary Care Provider] - Please follow up with your Primary Care Physician in: 3-5 days Test Results: Test results from this visit will be discussed in further detail at your follow-up appointment, if applicable. Please Follow Up With: Palliative care
--- NOTE | 2020-08-08 14:41 | PCM.DC.SUM ---
Discharge Date and Diagnosis - Problem List Patient Problems: Active and Suspected Problems (Last Reviewed 08/03/20 @ 13:04 by Elsie Wagner) Elevated lactic acid level (Acute) Intractable vomiting with nausea (Acute) Elevated bilirubin (Acute) Hyperglycemia due to diabetes mellitus (Acute) Decubitus ulcer of foot, stage 3 (Acute) Date of Admission: 08/06/20 Date of Discharge: 08/08/20 - Primary Discharge Diagnosis Acute Problems: Active Problems (Last Reviewed 08/03/20 @ 13:04 by Elsie Wagner) Elevated lactic acid level (Acute) Intractable vomiting with nausea (Acute) Elevated bilirubin (Acute) Hyperglycemia due to diabetes mellitus (Acute) Decubitus ulcer of foot, stage 3 (Acute) - Secondary Discharge Diagnosis Chronic Problems: Chronic Problems (Last Reviewed 08/03/20 @ 13:04 by Elsie Wagner) Below-knee amputation of left lower extremity (Chronic) 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) Malnutrition (Chronic) Amputation of right foot (Chronic) transmetatarsal amputation Other specified peripheral vascular diseases (Chronic) Type 2 diabetes mellitus with diabetic polyneuropathy (Chronic) Delayed wound healing (Chronic) History of angioplasty of peripheral vessel (Chronic ~05/04/20) Ischemic cardiomyopathy (Chronic) Biventricular implantable cardioverter-defibrillator (ICD) in situ (Chronic) 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) 2006, 2012 gen change History of coronary artery stent placement (Chronic ~03/2019) 3.0 x 12 mm Rebel BMS to pD1 03/27/19 Peripheral vascular disease due to secondary diabetes (Chronic) Coronary artery disease involving [place] coronary artery of [place] heart (Chronic) MAYS to LAD, SVG to PDA 10/2003; 3.0 x 12 mm Rebel BMS to pD1 03/27/19 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 at 0537 Reported and signed by: Jamal Lundberg MD Electronically Signed: Jamal Lundberg MD at 5:36 EST Tel , Service support , Abdomen/Pelvis CT 08/06/20 06:50 IMPRESSION: Colonic diverticulosis. No obstruction. Wall thickening of the distal stomach with gastritis versus ulcer disease. Heterogeneous appearance of the liver. No biliary dilatation. Mild ascites in the abdomen and pelvis. 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 He denies any diarrhea. No abdominal pain or shortness of breath. He also denies any fevers or chills. He states that the only thing that he ate that could have caused this was a macaroni salad that was just a few days old at the time. He states that he has not been checking his blood sugar and has not been taking his insulin consistently either. In the ED vital signs are unremarkable, and lab work did not show a leukocytosis. He did have an elevated lactic acid of 3.3 as well as an elevated blood sugar to 359. His UA also demonstrated an elevated urine glucose to 1000. He recently completed long-term antibiotics for osteo that has been managed by podiatry. Hospital Course: 1. Nausea and vomiting secondary to hypoglycemia/DM 2 with peripheral neuropathy and diabetic foot [id number]-old male presented with 1 day of nausea and vomiting, he did not take his insulin because he was not eating anything however when he presented to the hospital he had a blood sugar to 359 with a urine glucose of 2000. Once his blood sugar came under control with insulin, diet monitoring, and IV fluids he felt much better. Because of the IV fluid that he did receive he did become little bit short of breath with bilateral crackles and had to be placed on 2 L of oxygen. Once he started feeling better from the nausea and vomiting his IV fluids were discontinued and he was restarted on his Bumex however on the day of discharge had to be given his dose of IV and he did have good urine output at that time and was able to be 95% on room air. He felt like he should go home today and he did not want to stay anymore in the hospital I did discuss with him the role and benefit of palliative care in someone with an EF of 20% as well as COPD and diabetes, he is willing to speak with palliative care when he gets home to see what their services about. I discussed with him the plan for discharge today he expressed understanding of the risks and benefits of going home and he wants to go home today. He will need to follow-up with his PCP as an outpatient. 2. CAD status post CABG and stents, hypertension, hyperlipidemia, chronic systolic CHF, hypothyroidism, GERD, COPD or chronic medical conditions which complicate his care. His home medications were continued where appropriate. Patient Problems: Active and Suspected Problems (Last Reviewed 08/03/20 @ 13:04 by Elsie Wagner) Elevated lactic acid level (Acute) Intractable vomiting with nausea (Acute) Elevated bilirubin (Acute) Hyperglycemia due to diabetes mellitus (Acute) Decubitus ulcer of foot, stage 3 (Acute) - Physical Exam Vitals/I&O's: Vital Signs Temp Pulse Resp BP Pulse Ox 97.5 F L 108 H 16 109/51 L 95 08/08/20 13:45 08/08/20 13:45 08/08/20 13:45 08/08/20 13:45 08/08/20 13:45 Oxygen Flow Rate (L/min) 2 Oxygen Delivery Method Room Air Weight: 199 lb 11.821 oz Body Mass Index (BMI) 27.8 Finger Stick Blood Glucose 318 Intake and Output for Last 24 Hours 08/06/20 08/07/20 08/08/20 23:59 23:59 23:59 Intake Total 3344.17 / 3344.17 520 / 1020 800 / 800 Output Total 0 / 0 1999 Balance 3344.17 / 3344.17 520 / 1020 -1200 / -1200 General: Alert, Oriented x3, Cooperative, No apparent distress HEENT: Atraumatic, PERRLA, EOMI, Normocephalic Oral: Moist Mucosa Neck: Supple, No JVD Lungs: Normal air movement, No rhonchi, No wheeze, minimal rales, diminished at bases Cardiovascular: Regular rate, Regular Rhythm, Normal S1, Normal S2, No murmurs Abdomen: Soft, Non Tender, Non-Distended, No Hepato-splenomegaly Extremities: Capillary Refill Less than 3 Seconds, Edema - 1+ pitting in his right lower extremity, status post amputation of his left lower extremity Skin: No rashes, No breakdown, Ulcer/ Wound - Wound is dressed and apparently healing well, had seen podiatry the day before Neurological: Neuro grossly intact, Sensory exam intact to light touch and pain - Though chronically diminished in his lower extremities Psych/Mental Status: Normal Affect, Appropriate Microbiology Past 72 Hours 08/06/20 05:15 Mucosa - Nasopharyngeal SARS-CoV-2 Antigen (Rapid) - Final Laboratory Results 08/07/20 17:30: POC Glucose 174 H 08/07/20 20:56: POC Glucose 142 H 08/08/20 09:48: POC Glucose 81 08/08/20 13:45: POC Glucose 173 H Current Medications Acetaminophen (Acetaminophen 325 Mg Tablet) 650 mg PO Q6H PRN PRN PRN Reason: Pain Score 1-10/Temp > 100.7 F Last Admin: 08/08/20 13:59 Dose: 650 mg Documented by: Aspirin (Aspirin E.C. 81 Mg Tablet) 81 mg PO DAILY [facility] Last Admin: 08/08/20 09:54 Dose: 81 mg Documented by: Bumetanide (Bumetanide 1 Mg/4 Ml Vial) 2 mg IV DAILY [facility] Last Admin: 08/08/20 10:02 Dose: 2 mg Documented by: Clopidogrel Bisulfate (Clopidogrel Bisulfate 75 Mg Tablet) 75 mg PO DAILY [facility] Last Admin: 08/08/20 09:54 Dose: 75 mg Documented by: Dextrose (Dextrose 50%-Water 25 Gm/50 Ml Disp.Syrin) 0 gm IV X1 PRN; Protocol PRN Reason: Hypoglycemia Enoxaparin Sodium (Enoxaparin 40 Mg/0.4 Ml Syringe) 40 mg SC DAILY [facility] Last Admin: 08/08/20 09:57 Dose: 40 mg Documented by: Glucagon (Glucagon 1 Mg/Ml Syringe) 1 mg IM .X1 PRN PRN Reason: Hypoglycemia Sodium Chloride () 250 mls @ 15 mls/hr IV .[id number] PRN PRN Reason: Saline Flush Sodium Chloride () 250 mls @ 15 mls/hr IV .[id number] PRN PRN Reason: Additional IVPB Infusion Insulin Glargine (Insulin Glargine 100 Units/Ml Pen) 15 units SC BREAKFAST [facility] Last Admin: 08/08/20 09:53 Dose: 15 u Documented by: Insulin Glargine (Insulin Glargine 100 Units/Ml Pen) 15 units SC DINNER [facility] Last Admin: 08/07/20 17:52 Dose: 15 u Documented by: Insulin Human Lispro (Insulin Lispro 100 Unit/Ml Insuln.Pen) 10 unit SC BREAKFAST [facility] Last Admin: 08/08/20 09:53 Dose: 10 u Documented by: Insulin Human Lispro (Insulin Lispro 100 Unit/Ml Insuln.Pen) 10 unit SC DINNER [facility] Last Admin: 08/07/20 17:52 Dose: 10 u Documented by: Insulin Human Lispro (Insulin Lispro 100 Unit/Ml Insuln.Pen) 10 unit SC LUNCH [facility] Last Admin: 08/08/20 13:51 Dose: Not Given Documented by: Insulin Human Lispro (Insulin Lispro 100 Unit/Ml Insuln.Pen) 0 unit SC ACHS [facility]; Protocol Last Admin: 08/08/20 13:51 Dose: Not Given Documented by: Levothyroxine Sodium (Levothyroxine 100 Mcg Tablet) 200 mcg PO DAILY@0600 [facility] Last Admin: 08/08/20 05:14 Dose: 200 mcg Documented by: Lisinopril (Lisinopril 2.5 Mg Tablet) 2.5 mg PO DAILY [facility] Last Admin: 08/08/20 09:54 Dose: 2.5 mg Documented by: Melatonin (Melatonin 3 Mg Tablet) 3 mg PO QHS PRN PRN PRN Reason: INSOMNIA Metoprolol Succinate (Metoprolol(Xl)Succ 50 Mg Tablet) 50 mg PO DAILY [facility] Last Admin: 08/08/20 09:54 Dose: 50 mg Documented by: Nutritional Formula (Nutritional Supplement (Alok) Packet) 1 packet PO BIDCM [facility] Last Admin: 08/08/20 09:54 Dose: 1 packet Documented by: Ondansetron HCl (Ondansetron 4 Mg/2 Ml Vial) 4 mg IV Q8H PRN PRN PRN Reason: NAUSEA/VOMITING Last Admin: 08/06/20 23:58 Dose: 4 mg Documented by: Oxycodone HCl (Oxycodone 5 Mg Tablet) 5 - 10 mg PO Q4H PRN PRN PRN Reason: Pain Score 4-10 Last Admin: 08/08/20 02:16 Dose: 10 mg Documented by: Pantoprazole Sodium (Pantoprazole Sodium 40 Mg Tablet) 40 mg PO DAILY [facility] Last Admin: 08/08/20 09:55 Dose: 40 mg Documented by: Potassium Chloride (Potassium Chloride 20 Meq Tablet) 40 meq PO DAILY [facility] Last Admin: 08/08/20 09:55 Dose: 40 meq Documented by: Pravastatin Sodium (Pravastatin 40 Mg Tablet) 40 mg PO QHS [facility] Last Admin: 08/07/20 21:03 Dose: 40 mg Documented by: Prednisone ([facility] 5 Mg Tablet) [facility] Last Admin: 08/08/20 09:55 Dose: 2.5 mg Documented by: Prochlorperazine Edisylate (Prochlorperazine 10 Mg/2 Ml Vial) 5 mg IV Q4H PRN PRN PRN Reason: Breakthrough nausea/vomiting Sodium Chloride (0.9% Saline Lock 10 Ml Syringe) 10 - 40 ml IV UD PRN PRN Reason: SALINE FLUSH Last Admin: 08/08/20 13:59 Dose: 10 ml Documented by: Discharge Activity: Return to Normal Activity Call your doctor if you observe: Fever of 101 or Higher, Shortness of breath, Dizziness, Fainting spells, Swelling in the ankles, Chest pain, Increased palpitations (irregular heartbeat) Home Medications: Medications to take at Discharge Oxycodone HCl/Acetaminophen [Percocet 5-325] 1 - 2 tab PO Q4H PRN PRN 03/17/15 acetaminophen 500 mg tablet 1,000 mg PO TID PRN tab 08/05/19 levothyroxine 200 mcg tablet 200 mcg PO DAILY 08/05/19 omeprazole 40 mg capsule,delayed release 40 mg PO DAILY 08/05/19 prednisone 2.5 mg tablet 2.5 mg PO DAILY 08/05/19 aspirin 81 mg tablet,delayed release 81 mg PO DAILY 12/17/19 Insulin Glargine,Hum.rec.anlog [Lantus] 15 unit SQ BID 06/09/20 Insulin Regular, Human [Novolin R] See Protocol IN QHS 06/09/20 Bumetanide 2 mg PO DAILY 06/11/20 Insulin Regular, Human [Novolin R] 10 units SC BREAKFAST 06/11/20 Insulin Regular, Human [Novolin R] 20 units SC DINNER 06/11/20 Clopidogrel Bisulfate [Clopidogrel] 75 mg PO DAILY 08/06/20 Lisinopril 2.5 mg PO DAILY 08/06/20 Metoprolol(XL)Succ [Toprol Xl (Beta Kavita)] 50 mg PO DAILY 08/06/20 Potassium Chloride [K-Tab ER] 40 meq PO DAILY 08/06/20 Pravastatin Sodium 40 mg PO QHS 08/06/20 Primary Care Physician: Jcarlos Glasgow MD [Primary Care Provider] - Please follow up with your Primary Care Physician in: 3-5 days Please Follow Up With: Palliative care Disposition: Home Minutes spent on discharge:: 35 Patient Condition:: Stable Medical Necessity - Tobacco Use Smoking Status: Former smoker Tobacco Use: Cigarettes Meaningful Use Info Meaningful Use Diagnoses (Choose all that apply): None applicable Inpatient E&M: [id number] [facility]
--- NOTE | 2020-08-08 15:08 | NURSING ---
palliative care called unit and reported that they would reach out to pt and family to provide information about palliative care.
--- NOTE | 2020-08-09 15:54 | CASEMGMT ---
SARI HAND Discharge Follow-up Phone Call: KRISTOPHER: Ekaterina Strata: 3 Call Date: 08/09/20 Discharge Date: 08/08/20 Time of Call: 1554 Duration: 5 min Admitting Diagnosis: Hyperglycemia, SARI HAND completed follow-up phone call after recent hospitalization. Patient state he is doing well. Patient had no questions or concerns regarding discharge instructions. Patient states he has follow-up appt with PCP tomorrow. Patient had no further questions or concerns at this time.
== END 2020-08-08 15:56 | disposition home or self-care (01) | DRG 637 ==
LOC: ED 07:44 → MS3 09:44
PROVIDERS: Admitting Provider Family Medicine; Emergency Provider Emergency Medicine; PCP Family Medicine; Visit Provider Family Medicine
DX: E11.65 Type 2 diabetes mellitus with hyperglycemia (principal); L89.893 Pressure ulcer of other site, stage 3; I50.22 Chronic systolic (congestive) heart failure; R17 Unspecified jaundice; T38.3X6A Underdosing of insulin and oral hypoglycemic [antidiabetic] drugs, initial encounter; E11.42 Type 2 diabetes mellitus with diabetic polyneuropathy; E11.621 Type 2 diabetes mellitus with foot ulcer; L97.514 Non-pressure chronic ulcer of other part of right foot with necrosis of bone; I25.10 Atherosclerotic heart disease of native coronary artery without angina pectoris; I11.0 Hypertensive heart disease with heart failure; E78.5 Hyperlipidemia, unspecified; E03.9 Hypothyroidism, unspecified; K21.9 Gastro-esophageal reflux disease without esophagitis; J44.9 Chronic obstructive pulmonary disease, unspecified; I25.5 Ischemic cardiomyopathy; G47.33 Obstructive sleep apnea (adult) (pediatric); E11.51 Type 2 diabetes mellitus with diabetic peripheral angiopathy without gangrene; Z95.1 Presence of aortocoronary bypass graft; Z95.5 Presence of coronary angioplasty implant and graft; Z95.810 Presence of automatic (implantable) cardiac defibrillator; Z87.891 Personal history of nicotine dependence; Z89.512 Acquired absence of left leg below knee; Z79.82 Long term (current) use of aspirin; Z79.4 Long term (current) use of insulin; Z79.2 Long term (current) use of antibiotics; Z79.890 Hormone replacement therapy; Z79.02 Long term (current) use of antithrombotics/antiplatelets; Z99.81 Dependence on supplemental oxygen; Z79.899 Other long term (current) drug therapy
CPT/HCPCS: 36415; 71045; 74177; 80053; 81001; 82962; 83605; 83690; 84484; 85025; 85610; 85730; 87040; 87426; 93005; 97802; 99284; J7030; Q9967; A4216; J2405

== ENCOUNTER 2020-08-13 19:26 | Inpatient (IN) | payer MEDICARE, OTHER, SELFPAY ==
[2020-08-13] VITALS (10 sets, daily range): BP systolic 103–121; BP diastolic 54–72; PULSE 108–122; RESP 16–24; TEMP 36–38.1; O2SAT 92–99; BMI 26.4; BMI 27.8; BMI 27.2
--- NOTE | 2020-08-13 19:49 | EKG12_ITS ---
Test Reason : DYSRHYTHMIA Blood Pressure : / mmHG Vent. Rate : 116 BPM Atrial Rate : 116 BPM P-R Int : 152 ms QRS Dur : 146 ms QT Int : 370 ms P-R-T Axes : 000 -64 120 degrees QTc Int : 514 ms Atrial-sensed ventricular-paced rhythm with frequent Premature ventricular complexes Biventricular pacemaker detected Abnormal ECG Confirmed by GAGE ELLSWORTH, RUBI ([id number]), editor book FRANTZ LYNN ([id number]) on 08/16/2020 11:47:18 A M Referred By: EVERT Confirmed By:JERSON ALMONTE MD
[2020-08-13] MEDS: Ondansetron 4 MG/2 ML Vial IV (20:03)
--- NOTE | 2020-08-13 20:06 | RAD_ITS ---
STUDY: X-RAY CHEST REASON FOR EXAM: Male, 74 years old. FATIGUE WITH DRY HEAVES AND CHILLS FOR THE PAST 2 WEEKS. TECHNIQUE: Single AP portable view of the chest. COMPARISON: 08/06/2020 FINDINGS: Moderate lung volumes. Elevated right hemidiaphragm. Pacemaker overlies and obscures the lower left lung. The visualized lungs are grossly clear. No gross effusions. There is borderline cardiomegaly. Previous CABG. Pacemaker is seen with leads terminating in the right atrium and right ventricle. Normal mediastinum and sandra. Normal visualized pulmonary arteries. Normal visualized aortic arch and descending thoracic aorta. Normal visualized thoracic spine. Normal visualized ribs, clavicles, and shoulders. There is no demonstrated abnormality of the visualized soft tissue structures of the upper abdomen. RAD/Chest 1 View (Portable) IMPRESSION: Incomplete expansion of the lungs. Lower left lung is obscured by pacemaker. Electronically Signed: Bebeto Talbot MD at 20:25 EST , Service support ,
[2020-08-13 20:28] LABS: Absolute Lymphocyte Count 0.43 X10^3/uL (0.83-4.51); Absolute Neutrophil Count 15.2 X10^3/uL (2.0-7.7); Basophil# 0.05 X10^3/uL; Basophil% 0.3 % (0-1); Eosinophil# 0.02 X10^3/uL; Eosinophils% 0.1 % (0-5); Hematocrit 33.3 % (40-54); Hemoglobin 10.6 g/dL (13.0-16.5); Lymphocyte # 0.43 X10^3/ul (4.0); Lymphocyte % 2.5 % (19-41); Mean Corp Hgb Conc 31.8 g/dL (32-36); Mean Corpuscular Hgb 30.9 pg (27.0-32.0); Mean Corpuscular Volume 97.1 fL (80-94); Mean Platelet Vol. 9.4 fl (6.2-12.0); Monocyte# 1.42 X10^3/uL; Monocyte% 8.2 % (0-10); NRBC Flagged by Analyzer 0 % (0-5); Neutrophil # 15.17 X10^3/uL (2.7-7.7); Neutrophil % 87.9 % (47-70); POSITIVE DIFFERENTIAL YES; Platelet Count 249 K/mm3 (150-450); RBC Distribution Width CV 14.6 % (11.6-14.6); RBC Distribution Width SD 50.7 fl (35.1-43.9); Red Blood Count 3.43 M/mm3 (4.6-6.2); White Blood Count 17.3 K/mm3 (4.4-11.0)
[2020-08-13 20:30] LABS: Differential Indicated SCAN CRITERIA MET
[2020-08-13 20:39] LABS: International Normalized Ratio 1.3; Partial Thromboplast Time 42.6 Seconds (24.1-36.2); Prothrombin Time (Protime)PT. 15.9 SECONDS (11.7-14.9)
[2020-08-13 20:49] LABS: Bacteria 0 SEEN /hpf (None Seen); Mucous, Urine 0 SEEN /hpf (<or=2+); Red Blood Cells-Urine 0 SEEN /hpf (0-5); Squamous Epithelial Cells - UA 0 SEEN /hpf (0-5)
--- NOTE | 2020-08-13 20:53 | RAD_ITS ---
STUDY: X-RAY - RIGHT FOOT CLINICAL: Male, 74 years old. right foot osteomyelitis laterally TECHNIQUE: 3 view(s) of the foot. COMPARISON: 06/02/2020. FINDINGS: Again seen is complete forefoot amputation across the bases of all of the metatarsals. The stumps of the fourth and fifth metatarsals show irregularities that were not definitely present previously and could represent osteolysis from infection/osteomyelitis. Superficial to the base of the fifth metatarsal there are skin wounds which should be clinically evident. There is diffuse soft tissue swelling of the soft tissues of the stump. No soft tissue gas is definite seen. Heavily calcified arteries seen across the ankle. RAD/Foot min 3 Views IMPRESSION: Osteolysis seen involving the stump of the fifth metatarsal and possibly the stump of the fourth metatarsal. These findings suggest osteomyelitis. Electronically Signed: Bebeto Talbot MD at 21:24 EST , Service support ,
[2020-08-13 20:55] LABS: ALB/GLOB Ratio 0.8 RATIO (0.9-2.4); AST(SGOT) 25 U/L (15-37); Alanine Aminotransfer ALT/SGPT 70 U/L (16-61); Albumin, Serum 3.4 g/dL (3.2-5.0); Alkaline Phosphatase 114 U/L (45-117); Anion Gap 8 (5-15); BUN 35 mg/dL (7-18); BUN/Creat Ratio 26.9 RATIO (10-20); Calcium,Total 8.6 mg/dL (8.5-10.1); Chloride 94 mmol/L (98-107); EST Glomerular Filtration Rate 57 mL/min (>60); Est Glom Filt Rate - Afr Amer 69 mL/min (>60); Globulin 4.1 g/dL (2.2-4.2); Glucose 215 mg/dL (74-106); Potassium 4.3 mmol/L (3.5-5.1); Protein, Total 7.5 g/dL (6.4-8.2); Sodium Level 132 mmol/L (136-145)
[2020-08-13 20:56] LABS: Differential Comment SCANNED; Erythrocyte Sedimentation Rate 16 mm/hr (0-20)
[2020-08-13 20:57] LABS: Color, Urine Yellow (Yellow); Glucose, Dipstick 50 mg/dl (Normal); Ketone-Dipstick Negative (Negative); Leukocyte Esterase-Dipstick 25 /ul (Negative); Nitrite-Dipstick Negative (Negative); Occult Blood-Urine 25 /ul (Negative); Protein-Dipstick 30 mg/dl (Negative); Urine Bilirubin Dipstick Negative (Negative); Urine Clarity Clear (Clear); Urine Urobilinogen 4 mg/dl (Normal)
[2020-08-13 21:15] LABS: Lactic Acid 2.3 mmol/L (0.4-1.9)
[2020-08-13 21:17] LABS: Hyaline Cast 0-5 SEEN /lpf (0-5); White Blood Cells 0-5 SEEN /hpf (0-5)
--- NOTE | 2020-08-13 22:02 | ED.VISSUMM ---
- ER Visit Summary Date of Service: 08/13/20 Chief Complaint: I do not feel good History of Present Illness: The patient is a [address] Glasgow and Dr. Agosto. He has a history of osteomyelitis of his right foot. He was seen at the wound clinic 2 days ago and had debridement of a new ulcer done as well as a chronic ulcer. Cultures were sent and he was discharged on Augmentin. He states that over the past 3 days he has been nauseated and having dry heaves. He has had a poor appetite. States his last bowel movement 6 days ago. Typically he goes every 2 to 3 days. Patient complains of chills, but denies fever. He denies any chest pain or cough. He reports he had shortness of breath for the past 2 weeks that is severe. It is increased with walking. Is decreased with laying flat. He denies any other complaints. Physical Examination: Vitals: Stable. Afebrile. General: Well-nourished and well-developed. Head: Normocephalic atraumatic. Neck: Supple, no lymphadenopathy. No JVD. Nontender. Cardiovascular: Tachycardic irregular rhythm. No murmurs. Respiratory: No respiratory distress. Clear to auscultation bilaterally. Abdominal: Soft, nontender, nondistended, normal bowel sounds. No guarding, rebound, or peritoneal signs. Back: Nontender. Extremities: 2+ pitting edema of right leg. Left AKA. He has 2 wounds on the lateral portion of his foot on the right which has transmetatarsal amputation. These are each approximately 1 cm and do appear to extend deep. There is mild surrounding erythema and serous drainage on the dressing. He has no palpable dorsalis pedis pulse. Skin: Normal color, no rash. Neurologic: Alert and oriented ?3. Cranial nerves II through XII are intact. Normal strength and sensation. Psych: Normal affect. Test Results: EKG is AV paced at 116 with PVCs. Troponin 0 0.043. Lactic acid is 2.3. UA shows leukocytes and blood. Liver profile shows a total bili of 1.7 and ALT of 70. INR is 1.3. PTT is 42.6. Chem-7 shows sodium 132, chloride 94, glucose 215, BUN 35. CBC shows a white count of 17.3 with H&H of 10.6 and 33.3. Segment neutrophils 88, lymphocytes of 3, immature granulocytes 1%. CRP is 197. ESR is 16. Covid is negative. Clinical Impression(s) from Imaging Studies Chest X-Ray 08/13/20 20:06 IMPRESSION: Incomplete expansion of the lungs. Lower left lung is obscured by pacemaker. Electronically Signed: Bebeto Talbot MD at 20:25 EST , Service support , Foot X-Ray 08/13/20 20:53 IMPRESSION: Osteolysis seen involving the stump of the fifth metatarsal and possibly the stump of the fourth metatarsal. These findings suggest osteomyelitis. Electronically Signed: Bebeto Talbot MD at 21:24 EST , Service support , Emergency Department Course and Treatment: Wound culture from 2 days ago shows MRSA without other organisms. He was given vancomycin and Zofran IV. Is resting comfortably. Treatment Plan: Patient was discussed with Dr. Shah and Dr. Gr. He will be admitted for further evaluation and treatment. Disposition: Admitted in improved condition. Impression: 1. Sepsis. 2. Wound right foot. 3. Osteomyelitis right fourth/fifth metatarsals. 4. Dyspnea. This note was generated with [employer] software. It may contain incorrect words, spelling, and punctuation that were not noted in review of the chart prior to signing ED Disposition - Plan for ED Patient: Referrals: Jcarlos Glasgow MD [Primary Care Provider] -
--- NOTE | 2020-08-13 22:24 | HP.PCM_ITS ---
History of Present Illness Date of Admission: 08/13/20 Chief Complaint: weakness and lethargy The patient is a 74 year old M with an extensive past medical history as outlined was admitted through the ED on 08/13/2020 with a complaint of generalized feeling of unwellness. Patient does have a history of osteomyelitis of his right foot with 2 ulcers on the dorsum of his foot. He was seen at the wound clinic 2 days prior to admission and had debridement of a new ulcer done as well as debridement of a chronic ulcer. Cultures were sent he was started on Augmentin. Patient states however he has not been feeling well since then and is having nausea with dry heaves. He denied any fever complained of chills and also admitted to some shortness of breath though he is on 2 L of oxygen at night at home. He complained of increased pain in his right foot. Review of symptoms otherwise negative. The ED, vitals show temperature of 98.6 Fahrenheit with blood pressure of 110/72, pulse rate of 108 and respiratory rate of 19. He was saturating at 95% on 2 L of oxygen. Chemistry showed sodium of 132 and crea tinine of 1.3 with a glucose of 215 and lactic acid of 2.3 with CRP of 197. CBC showed WBC of 17.3 with hemoglobin of 10.6 and platelets of 249; x-ray of the right foot showed osteolysis seen involving the stump of the fifth metatarsal and possibly the stump of the fourth metatarsal suggesting osteomyelitis. Of note, patient's states that he was recently on antibiotics for about 6 weeks and was on IV vancomycin at that time. 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) Malnutrition (Chronic) Amputation of right foot (Chronic) transmetatarsal amputation Other specified peripheral vascular diseases (Chronic) Type 2 diabetes mellitus with diabetic polyneuropathy (Chronic) Delayed wound healing (Chronic) History of angioplasty of peripheral vessel (Chronic ~05/04/20) Ischemic cardiomyopathy (Chronic) Biventricular implantable cardioverter-defibrillator (ICD) in situ (Chronic) 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) 2006, 2012 gen change History of coronary artery stent placement (Chronic ~03/2019) 3.0 x 12 mm Rebel BMS to pD1 03/27/19 Peripheral vascular disease due to secondary diabetes (Chronic) Coronary artery disease involving tejon coronary artery of tejon heart (Chronic) MAYS to LAD, SVG to PDA 10/2003; 3.0 x 12 mm Rebel BMS to pD1 03/27/19 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) Medical History: Medical History (Last Reviewed 08/03/20 @ 13:04 by Elsie Wagner) Decubitus ulcer of foot, stage 3 (Acute) L89.893 Infected ulcer of skin (Acute) L98.499, L08.9 Osteomyelitis of right foot (Chronic) M86.9 Dyspnea (Acute) R06.00 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) L97.514 Malnutrition (Chronic) E46 Amputation of right foot (Chronic) S98.911A transmetatarsal amputation Other specified peripheral vascular diseases (Chronic) I73.89 Type 2 diabetes mellitus with diabetic polyneuropathy (Chronic) E11.42 Delayed wound healing (Chronic) T14.8XXD Ischemic cardiomyopathy (Chronic) I25.5 Biventricular implantable cardioverter-defibrillator (ICD) in situ (Chronic) Z95.810 Diaphragm paralysis (Chronic) J98.6 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) G47.33 With O2 2L Peripheral vascular disease due to secondary diabetes (Chronic) E13.51 Coronary artery disease involving tejon coronary artery of tejon heart (Chronic) I25.10 MAYS to LAD, SVG to PDA 10/2003; 3.0 x 12 mm Rebel BMS to pD1 03/27/19 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) E11.59, I70.209 COPD (chronic obstructive pulmonary disease) J44.9 Glaucoma H40.9 Wears hearing aid in both ears Z97.4 Open wound of knee, leg, and ankle, complicated (Resolved) S81.009A, S81.809A, S91.009A Surgical wound dehiscence (Resolved) T81.31XA Allergies amiodarone Allergy (Severe, Verified 08/13/20 19:29) pulmonary fibrosis sotalol Allergy (Severe, Verified 08/13/20 19:29) intolerant levofloxacin [From Levaquin] Allergy (Verified 08/13/20 19:29) Pain in joints LEG CRAMPING gabapentin Adverse Reaction (Verified 08/13/20 19:29) Diarrhea latex Adverse Reaction (Verified 08/13/20 19:29) Rash Home Medications: Ambulatory Orders Medication Instructions Recorded Oxycodone HCl/Acetaminophen 1 - 2 tab PO Q4H PRN PRN 03/17/15 [Percocet 5-325] acetaminophen 500 mg tablet 1,000 mg PO 4X/DAY tab 08/05/19 levothyroxine 200 mcg tablet 200 mcg PO DAILY 08/05/19 omeprazole 40 mg capsule,delayed 40 mg PO DAILY 08/05/19 release prednisone 2.5 mg tablet 2.5 mg PO DAILY 08/05/19 aspirin 81 mg tablet,delayed 81 mg PO DAILY 12/17/19 release Insulin Glargine,Hum.rec.anlog 15 unit SQ BID 06/09/20 [Lantus] Insulin Regular, Human [Novolin R] See Protocol SC QHS 06/09/20 Bumetanide 2 mg PO DAILY 06/11/20 Insulin Regular, Human [Novolin R] 10 units SC BREAKFAST 06/11/20 Insulin Regular, Human [Novolin R] 20 units SC DINNER 06/11/20 Clopidogrel Bisulfate [Clopidogrel] 75 mg PO DAILY 08/06/20 Lisinopril 2.5 mg PO DAILY 08/06/20 Metoprolol(XL)Succ [Toprol Xl 50 mg PO DAILY 08/06/20 (Beta Kavita)] Pravastatin Sodium 40 mg PO QHS 08/06/20 Surgical History: Surgical History (Last Reviewed 08/03/20 @ 13:04 by Elsie Wagner) History of angioplasty of peripheral vessel (Chronic) Onset Date: ~05/04/20 Z98.62 Presence of permanent cardiac pacemaker (Chronic) Z95.0 2006, 2012 gen change History of coronary artery stent placement (Chronic) Onset Date: ~03/2019 Z95.5 3.0 x 12 mm Rebel BMS to pD1 03/27/19 History of amputation of toe Z89.429 All toes right foot History of coronary artery bypass graft Onset Date: ~2003 Z95.1 MAYS to LAD, SVG to PDA 10/2003 History of left below knee amputation Onset Date: ~2014 Z89.512 History of bilateral cataract extraction Z98.41, Z98.42 History of cholecystectomy Z90.49 History of endoscopy Z98.890 Surgical History: coronary bypass surgery Lives: Spouse/ Significant Other Smoking Status: Former smoker Alcohol: None Drugs: None - *Family History Maternal Family History: Family History (Last Reviewed 08/03/20 @ 13:04 by Elsie Wagner) Sister Diabetes Mother Heart disease Father Diabetes Review of Systems Constitutional: Reports: Chills, Malaise, Weakness, Fatigue. Denies: Anorexia, Fever, Night Sweats, Weight Change Eyes: Denies: Blurred vision HEENT: Denies: Head Aches, Sinus Congestion, Sinus Drainage Cardiovascular: Denies: Chest Pain, Palpitations Respiratory: Denies: Cough, Shortness of Breath, Shortness of breath at rest, Shortness of breath upon exertion, Sputum production Gastrointestinal: Denies: Abdominal Pain, Nausea, Vomiting Genitourinary: Denies: Dysuria Musculoskeletal: Reports: Foot Pain. Denies: Joint Pain, Joint Tenderness Skin: Reports: Wounds. Denies: Rash Neurological: Denies: Numbness, Tingling, Focal weakness Psychiatric: Denies: Anxiety, Depression, Homicidal Ideations, Suicidal Ideations Hematologic/ Lymphatic: Denies: Easy Bruising, Easy Bleeding VTE Information - Inpt Only VTE Present on Admission: No VTE Pharm Prophylaxis ordered?: Yes - Physical Exam Vitals/I&O's: Vital Signs Temp Pulse Resp BP Pulse Ox 988.6 F H 108 H 19 H 110/72 95 08/13/20 22:09 08/13/20 22:09 08/13/20 22:09 08/13/20 22:09 08/13/20 22:09 Oxygen Flow Rate (L/min) 2 Oxygen Delivery Method Nasal Cannula Weight: 190 lb Body Mass Index (BMI) 26.4 Finger Stick Blood Glucose 318 General: Alert, Oriented x3, Cooperative, No apparent distress HEENT: Atraumatic, PERRLA, EOMI, Normocephalic Oral: Dry Mucosa Neck: Supple, No JVD, Negative Carotid Bruits Lungs: - - diminished breath sounds bibasally, no wheezes or crackles. On 2L of oxygen, which is his baseline. Cardiovascular: Normal S1, Normal S2, No murmurs, Tachycardic Abdomen: Bowel Sounds Present, Soft, Non Tender, Non-Distended, No Hepato- splenomegaly Extremities: No clubbing, No cyanosis, No edema, Capillary Refill Less than 3 Seconds Skin: - - 2 ulcers on the dorsum of the right foot; packed with dressing Musculoskeletal: - - right TMA amputation, LLE artificial stump. Lymphatic: No Cervical, Supraclavicular, or Inguinal Adenopathy Neurological: Cranial nerves II-XII grossly intact, Neuro grossly intact, Motor Exam 5/5 strength throughout Psych/Mental Status: Normal Affect, Appropriate, Alert and oriented to time, place, person, mood and affect Microbiology Past 72 Hours 08/13/20 20:45 Mucosa - Nose SARS-CoV-2 Antigen (Rapid) - Final Laboratory Results 08/13/20 20:13: WBC 17.3 H, RBC 3.43 L, Hgb 10.6 L, Hct 33.3 L, MCV 97.1 H, MCH 30.9, MCHC 31.8 L, RDW Std Deviation 50.7 H, RDW Coeff of Jac 14.6, Plt Count 249, MPV 9.4, Immature Gran % (Auto) 1.000 H, Neut % (Auto) 87.9 H, Lymph % (Auto) 2.5 L, Cassia % (Auto) 8.2, Eos % (Auto) 0.1, Baso % (Auto) 0.3, Absolute Neuts (auto) 15.2 H, Absolute Lymphs (auto) 0.43 L, Nucleated RBC % 0, Differential Comment SCANNED, ESR 16 08/13/20 20:13: PT 15.9 H, INR 1.3, APTT 42.6 H 08/13/20 20:13: Sodium 132 L, Potassium 4.3, Chloride 94 L, Carbon Dioxide 30.0, Anion Gap 8, BUN 35 H, Creatinine 1.30, Estim Creat Clear Calc 53.90, Est GFR (MDRD) Af Amer 69, Est GFR (MDRD) Non-Af 57 L, BUN/Creatinine Ratio 26.9 H, Glucose 215 H, Calcium 8.6, Total Bilirubin 1.70 H, AST 25, ALT 70 H, Alkaline Phosphatase 114, Troponin I 0.043, C-React Prot Ext Range 197.00 H, Total Protein 7.5, Albumin 3.4, Globulin 4.1, Albumin/Globulin Ratio 0.8 L 08/13/20 20:13: Lactic Acid 2.3 H* 08/13/20 20:40: Urine Color Yellow, Urine Clarity Clear, Urine pH 5.0, Ur Specific [place] 1.020, Urine Protein 30 H, Urine Glucose (UA) 50 H, Urine Ketones Negative, Urine Occult Blood 25 H, Urine Nitrite Negative, Urine Bilirubin Negative, Urine Urobilinogen 4 H, Ur Leukocyte Esterase 25 H, Urine RBC 0 SEEN, Urine WBC 0-5 SEEN, Ur Squamous Epith Cells 0 SEEN, Urine Bacteria 0 SEEN, Hyaline Casts 0-5 SEEN, Urine Mucus 0 SEEN Diagnostic Data Chest X-Ray 08/13/20 20:06 IMPRESSION: Incomplete expansion of the lungs. Lower left lung is obscured by pacemaker. Electronically Signed: Bebeto Talbot MD at 20:25 EST , Service support , Foot X-Ray 08/13/20 20:53 IMPRESSION: Osteolysis seen involving the stump of the fifth metatarsal and possibly the stump of the fourth metatarsal. These findings suggest osteomyelitis. Electronically Signed: Bebeto Talbot MD at 21:24 EST , Service support , Assessment/Plan All Active Problems (Last Reviewed 08/03/20 @ 13:04 by Elsie Wagner) Ulcer of left lower extremity with fat layer exposed (Resolved) Elevated lactic acid level (Acute) Intractable vomiting with nausea (Acute) Elevated bilirubin (Acute) Hyperglycemia due to diabetes mellitus (Acute) Cellulitis of right lower limb (Acute) Decubitus ulcer of foot, stage 3 (Acute) Infected ulcer of skin (Acute) Dyspnea (Acute) Open wound of knee, leg, and ankle, complicated (Resolved) Surgical wound dehiscence (Resolved) 74 y/o admitted with a complaint of general feeling of unwellness #Severe sepsis due to right foot ulceration and osteomyelitis * admit to PCU with telemetry * wbc is elevatged at 17.3. * hold off on aggressive fluid resuscitation as he has an EF of 20% * get blood cultures and wound cultures * previous wound cultures grew MRSA * started on IV vancomycin, will continue * xray shwoed osteomyelitis of the stump of the fifth metatarsal and possibly of the stump of the fourth metatarsal * consult ID and podiatry * #Right foot ulceration and osteomyelitis: as above #Lactic acidosis: lactic acid is 2.3. Will hydrate with IVF and trend #TYpe 2 diabetes mellitus with neuropathy * s/p LLE BKA with prosthetic limb, and RLE TMA amputation * on lantus 15 units bid. ISS. 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 * has EF of 20% per 2D echo done 07/22/2020, with severe segmental systolic dysfunction and RVSP of 55mmhg. * on bumex #Hypothyroidism: on synthroid DVT prophylaxis: lovenox Code status: full code * Patient counseled extensively about different types of CODE STATUS including full code, DNR CCA and DNR CCA. Patient elects to be full code. * Total zidj-ue-ozuo time 17 minutes. Inpatient E&M: 03246 Init Hosp L3 Procedures: 93360 Advncd Care Plan 30 Min
[2020-08-13] MEDS: 0.9% Normal Saline 1,000 ML 999 ML IV (23:59)
[2020-08-14] VITALS (13 sets, daily range): BP systolic 94–117; BP diastolic 52–81; PULSE 60–119; RESP 14–16; TEMP 36.4–37.1; O2SAT 92–100; BMI 27.2
[2020-08-14 00:24] LABS: Reflex Lactate? Y
[2020-08-14 00:44] LABS: Lactic Acid 1.2 mmol/L (0.4-1.9)
[2020-08-14] MEDS: 0.9% Normal Saline 1,000 ML 999 ML IV ×2 (01:15→02:18)
--- NOTE | 2020-08-14 01:42 | PCM.RX.CS ---
Consult Pharmacy has been consulted to manage selected antiobiotic: Vancomycin Type of Consult: New start Suspected Infection: Sepsis Labs: Sodium 132 mmol/L (136-145) L 08/13/20 20:13 Potassium 4.3 mmol/L (3.5-5.1) 08/13/20 20:13 Chloride 94 mmol/L (98-107) L 08/13/20 20:13 Carbon Dioxide 30.0 mmol/L (21.0-32.0) 08/13/20 20:13 Anion Gap 8 (5-15) 08/13/20 20:13 BUN 35 mg/dL (7-18) H 08/13/20 20:13 Creatinine 1.30 mg/dL (0.70-1.30) 08/13/20 20:13 Est GFR (MDRD) Af Amer 69 mL/min (>60) 08/13/20 20:13 Est GFR (MDRD) Non-Af 57 mL/min (>60) L 08/13/20 20:13 BUN/Creatinine Ratio 26.9 RATIO (10-20) H 08/13/20 20:13 Glucose 215 mg/dL (74-106) H 08/13/20 20:13 Microbiology: Microbiology 08/13/20 20:45 Mucosa - Nose SARS-CoV-2 Antigen (Rapid) - Final Weight used for dosin.1 kg Estimated Creatinine Clearance: 55.5 Goal Trough: 15-20 mcg/mL Pharmacy Plan for Drug Dosing: Pharmacy Service will continue to monitor and adjust dosing as required. Medications Vancomycin HCl (Vancomycin) 1,000 mg in 200 mls @ 200 mls/hr IV Q12H RAYMON Discontinued Medications Vancomycin HCl 1,250 mg/ (Sodium Chloride) 275 mls @ 166.67 mls/hr IV X1 ONE Stop: 08/13/20 21:38 Last Admin: 08/13/20 23:42 Dose: Infused Documented by: Follow-Up Labs: Trough Vancomycin Labs to be done on [date and time ordered]: 08/15 @ 0099
--- NOTE | 2020-08-14 01:45 | PCS.PANDOC ---
PANDEMIC DOCUMENTATION INITIATED: Date: 08/13/20 Time: 22:45
[2020-08-14] MEDS: Levothyroxine 100 MCG Tablet 200 MCG PO (06:08)
[2020-08-14 06:33] LABS: Basophil# 0.05 X10^3/uL; Basophil% 0.4 % (0-1); Eosinophil# 0.02 X10^3/uL; Eosinophils% 0.2 % (0-5); Hematocrit 30.1 % (40-54); Hemoglobin 9.2 g/dL (13.0-16.5); Lymphocyte % 3.2 % (19-41); Mean Corp Hgb Conc 30.6 g/dL (32-36); Mean Corpuscular Hgb 30.3 pg (27.0-32.0); Monocyte# 1.12 X10^3/uL; Monocyte% 8.8 % (0-10); NRBC Flagged by Analyzer 0 % (0-5); Neutrophil # 11.04 X10^3/uL (2.7-7.7); Neutrophil % 86.9 % (47-70); POSITIVE DIFFERENTIAL YES; Platelet Count 182 K/mm3 (150-450); RBC Distribution Width CV 14.5 % (11.6-14.6); RBC Distribution Width SD 51.9 fl (35.1-43.9); Red Blood Count 3.04 M/mm3 (4.6-6.2); White Blood Count 12.7 K/mm3 (4.4-11.0)
[2020-08-14 06:44] LABS: Differential Indicated SCAN CRITERIA MET
[2020-08-14] MEDS: Insulin Lispro 100 UNIT/ML INSULN.PEN SC ×4 (06:49→22:46)
[2020-08-14] MEDS: Acetaminophen 500 MG Tablet 1000 MG PO ×2 (06:49→11:31)
[2020-08-14 07:01] LABS: Anisocytosis 2+; Differential Comment SCANNED
[2020-08-14 07:02] LABS: Anion Gap 7 (5-15); BUN 28 mg/dL (7-18); BUN/Creat Ratio 33.1 RATIO (10-20); Chloride 101 mmol/L (98-107); Creatinine, Serum 0.85 mg/dL (0.70-1.30); EST Glomerular Filtration Rate 94 mL/min (>60); Est Glom Filt Rate - Afr Amer 114 mL/min (>60); Estimated Creatinine Clearance 84.95 ml/min; Glucose 203 mg/dL (74-106); Potassium 3.8 mmol/L (3.5-5.1); Sodium Level 136 mmol/L (136-145)
[2020-08-14 07:05] LABS: Bedside Glucose 205 mg/dL (70-110)
--- NOTE | 2020-08-14 08:00 | CON.PCM_ITS ---
Problem List (1) Peripheral vascular disease Status: Acute (2) Below-knee amputation of left lower extremity Status: Chronic (3) Hyperglycemia due to diabetes mellitus Status: Acute (4) Cellulitis of right lower limb Status: Acute (5) Osteomyelitis of right foot Status: Chronic (6) Ulcer of right foot with necrosis of bone Status: Chronic (7) Malnutrition Status: Chronic (8) Amputation of right foot Status: Chronic Qualifiers: Comment: transmetatarsal amputation (9) Type 2 diabetes mellitus with diabetic polyneuropathy Status: Chronic (10) Delayed wound healing Status: Chronic (11) Presence of permanent cardiac pacemaker Status: Chronic Comment: 2012 gen change Reason for Consult Date of Consultation: 08/14/20 Reason for Consultation: Right foot ulcerations History of Present Illness: The patient is a 74 year old M who presents to the emergency room after worsening of right foot ulcerations. Patient was seen at the wound care center by Dr. Park on on Sunday where worsening of ulcerations were noted and culture was obtained. This culture has been growing MRSA. Patient reports that after leaving the wound care center he got progressively worse with increased redness and drainage stomach issues and general feelings of unwell. Patient states that he still has not gotten his pacemaker figured out and states that he still is not working. Patient states that he he is starting to feel better since being admitted to the hospital and started on IV antibiotics. Patient has a history of right TMA and left BKA amputations. Patient is diabetic with neuropathy as well as significant cardiac disease. [] 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) Malnutrition (Chronic) Amputation of right foot (Chronic) transmetatarsal amputation Other specified peripheral vascular diseases (Chronic) Type 2 diabetes mellitus with diabetic polyneuropathy (Chronic) Delayed wound healing (Chronic) History of angioplasty of peripheral vessel (Chronic ~05/04/20) Ischemic cardiomyopathy (Chronic) Biventricular implantable cardioverter-defibrillator (ICD) in situ (Chronic) 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) 2012 gen change History of coronary artery stent placement (Chronic ~03/2019) 3.0 x 12 mm Rebel BMS to pD1 03/27/19 Peripheral vascular disease due to secondary diabetes (Chronic) Coronary artery disease involving [place] coronary artery of [place] heart (Chronic) MAYS to LAD, SVG to PDA 10/2003; 3.0 x 12 mm Rebel BMS to pD1 03/27/19 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) Medical History: Medical History (Last Reviewed 08/03/20 @ 13:04 by Elsie Wagner) Decubitus ulcer of foot, stage 3 (Acute) L89.893 Infected ulcer of skin (Acute) L98.499, L08.9 Osteomyelitis of right foot (Chronic) M86.9 Dyspnea (Acute) R06.00 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) L97.514 Malnutrition (Chronic) E46 Amputation of right foot (Chronic) S98.911A transmetatarsal amputation Other specified peripheral vascular diseases (Chronic) I73.89 Type 2 diabetes mellitus with diabetic polyneuropathy (Chronic) E11.42 Delayed wound healing (Chronic) T14.8XXD Ischemic cardiomyopathy (Chronic) I25.5 Biventricular implantable cardioverter-defibrillator (ICD) in situ (Chronic) Z95.810 Diaphragm paralysis (Chronic) J98.6 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) G47.33 With O2 2L Peripheral vascular disease due to secondary diabetes (Chronic) E13.51 Coronary artery disease involving [place] coronary artery of [place] heart (Chroni c) I25.10 MAYS to LAD, SVG to PDA 10/2003; 3.0 x 12 mm Rebel BMS to pD1 03/27/19 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) E11.59, I70.209 COPD (chronic obstructive pulmonary disease) J44.9 Glaucoma H40.9 Wears hearing aid in both ears Z97.4 Open wound of knee, leg, and ankle, complicated (Resolved) S81.009A, S81.809A, S91.009A Surgical wound dehiscence (Resolved) T81.31XA Allergies amiodarone Allergy (Severe, Verified 08/14/20 00:24) pulmonary fibrosis sotalol Allergy (Severe, Verified 08/14/20 00:24) intolerant levofloxacin [From Levaquin] Allergy (Verified 08/14/20 00:24) Pain in joints LEG CRAMPING gabapentin Adverse Reaction (Verified 08/14/20 00:24) Diarrhea latex Adverse Reaction (Verified 08/14/20 00:24) Rash Home Medications: Ambulatory Orders Medication Instructions Recorded Oxycodone HCl/Acetaminophen 1 - 2 tab PO Q4H PRN PRN 03/17/15 [Percocet 5-325] acetaminophen 500 mg tablet 1,000 mg PO 4X/DAY tab 08/05/19 levothyroxine 200 mcg tablet 200 mcg PO DAILY 08/05/19 omeprazole 40 mg capsule,delayed 40 mg PO DAILY 08/05/19 release prednisone 2.5 mg tablet 2.5 mg PO DAILY 08/05/19 aspirin 81 mg tablet,delayed 81 mg PO DAILY 12/17/19 release Insulin Glargine,Hum.rec.anlog 15 unit SQ BID 06/09/20 [Lantus] Insulin Regular, Human [Novolin R] See Protocol SC QHS 06/09/20 Bumetanide 2 mg PO DAILY 06/11/20 Insulin Regular, Human [Novolin R] 10 units SC BREAKFAST 06/11/20 Insulin Regular, Human [Novolin R] 20 units SC DINNER 06/11/20 Clopidogrel Bisulfate [Clopidogrel] 75 mg PO DAILY 08/06/20 Lisinopril 2.5 mg PO DAILY 08/06/20 Metoprolol(XL)Succ [Toprol Xl 50 mg PO DAILY 08/06/20 (Beta Kavita)] Pravastatin Sodium 40 mg PO QHS 08/06/20 Surgical History: Surgical History (Last Reviewed 08/03/20 @ 13:04 by Elsie Wagner) History of angioplasty of peripheral vessel (Chronic) Onset Date: ~05/04/20 Z98.62 Presence of permanent cardiac pacemaker (Chronic) Z95.0 2006, 2012 gen change History of coronary artery stent placement (Chronic) Onset Date: ~03/2019 Z 95.5 3.0 x 12 mm Rebel BMS to pD1 03/27/19 History of amputation of toe Z89.429 All toes right foot History of coronary artery bypass graft Onset Date: ~2003 Z95.1 MAYS to LAD, SVG to PDA 10/2003 History of left below knee amputation Onset Date: ~2014 Z89.512 History of bilateral cataract extraction Z98.41, Z98.42 History of cholecystectomy Z90.49 History of endoscopy Z98.890 Surgical History: coronary bypass surgery Lives: Spouse/ Significant Other Smoking Status: Former smoker Alcohol: None Drugs: None - *Family History Maternal Family History: Family History (Last Reviewed 08/03/20 @ 13:04 by Elsie Wagner) Sister Diabetes Mother Heart disease Father Diabetes Review of Systems Constitutional: Denies: Chills, Fever HEENT: Denies: Hard of Hearing Cardiovascular: Reports: Edema - Right lower extremity Respiratory: Denies: Cough, Shortness of Breath Gastrointestinal: Denies: Nausea, Vomiting Musculoskeletal: Reports: Foot Pain - Right, - - Left BKA, right TMA Skin: Reports: Wounds - Right lateral foot Neurological: Reports: Numbness, Tingling Patient Problems: Active and Suspected Problems (Last Reviewed 08/03/20 @ 13:04 by Elsie Wagner) Hyperglycemia due to diabetes mellitus (Acute) Cellulitis of right lower limb (Acute) Peripheral vascular disease (Acute) - Physical Exam Vitals/I&O's: Vital Signs Temp Pulse Resp BP Pulse Ox 97.8 F 85 14 109/60 94 08/14/20 02:30 08/14/20 07:05 08/14/20 02:30 08/14/20 02:30 08/14/20 07:15 Oxygen Flow Rate (L/min) 2 Oxygen Delivery Method Nasal Cannula Weight: 91.1 kg Body Mass Index (BMI) 27.2 Finger Stick Blood Glucose 318 Intake and Output for Last 24 Hours 08/12/20 08/13/20 08/14/20 23:59 23:59 23:59 Intake Total 275 / 275 3300 / 3300 Balance 275 / 275 3300 / 3300 General: Alert, Oriented x3, Cooperative HEENT: Atraumatic Extremities: No cyanosis, Capillary Refill Less than 3 Seconds, No Calf Tenderness - Negative Veronica and Kaur sign, Diminished Peripheral Pulses, Edema Skin: Ulcer/ Wound - Right lateral foot cluster. Mild malodor, no purulent drainage but soupy serous fibrotic drainage, surrounding erythema and edema to lower extremity, probes to bone, skin is atrophic and hairless, pain to palpation lateral foot Musculoskeletal: Muscle Wasting, Tenderness - Right lateral foot specifically but generalized pain to foot, - - Left BKA without ulcerations to stump site, right TMA Neurological: - - Lack of epicritic sensation consistent with neuropathy Psych/Mental Status: Normal Affect, Appropriate Microbiology Past 72 Hours 08/13/20 20:45 Mucosa - Nose SARS-CoV-2 Antigen (Rapid) - Final Laboratory Results 08/13/20 20:13: WBC 17.3 H, RBC 3.43 L, Hgb 10.6 L, Hct 33.3 L, MCV 97.1 H, MCH 30.9, MCHC 31.8 L, RDW Std Deviation 50.7 H, RDW Coeff of Jac 14.6, Plt Count 249, MPV 9.4, Immature Gran % (Auto) 1.000 H, Neut % (Auto) 87.9 H, Lymph % (Auto) 2.5 L, [place] % (Auto) 8.2, Eos % (Auto) 0.1, Baso % (Auto) 0.3, Absolute Neuts (auto) 15.2 H, Absolute Lymphs (auto) 0.43 L, Nucleated RBC % 0, Differential Comment SCANNED, ESR 16 08/13/20 20:13: PT 15.9 H, INR 1.3, APTT 42.6 H 08/13/20 20:13: Sodium 132 L, Potassium 4.3, Chloride 94 L, Carbon Dioxide 30.0, Anion Gap 8, BUN 35 H, Creatinine 1.30, Estim Creat Clear Calc 53.90, Est GFR (MDRD) Af Amer 69, Est GFR (MDRD) Non-Af 57 L, BUN/Creatinine Ratio 26.9 H, Glucose 215 H, Calcium 8.6, Total Bilirubin 1.70 H, AST 25, ALT 70 H, Alkaline Phosphatase 114, Troponin I 0.043, C-React Prot Ext Range 197.00 H, Total Protein 7.5, Albumin 3.4, Globulin 4.1, Albumin/Globulin Ratio 0.8 L 08/13/20 20:13: Lactic Acid 2.3 H* 08/13/20 20:40: Urine Color Yellow, Urine Clarity Clear, Urine pH 5.0, Ur Specific [place] 1.020, Urine Protein 30 H, Urine Glucose (UA) 50 H, Urine Ketones Negative, Urine Occult Blood 25 H, Urine Nitrite Negative, Urine Bilirubin Negative, Urine Urobilinogen 4 H, Ur Leukocyte Esterase 25 H, Urine RBC 0 SEEN, Urine WBC 0-5 SEEN, Ur Squamous Epith Cells 0 SEEN, Urine Bacteria 0 SEEN, Hyaline Casts 0-5 SEEN, Urine Mucus 0 SEEN 08/14/20 00:20: Troponin I 0.058 H 08/14/20 00:20: Lactic Acid 1.2 08/14/20 03:47: Troponin I 0.062 H 08/14/20 06:26: WBC 12.7 H, RBC 3.04 L, Hgb 9.2 L, Hct 30.1 L, MCV 99.0 H, MCH 30.3, MCHC 30.6 L, RDW Std Deviation 51.9 H, RDW Coeff of Jac 14.5, Plt Count 182, MPV 9.0, Immature Gran % (Auto) 0.500, Neut % (Auto) 86.9 H, Lymph % (Auto) 3.2 L, [place] % (Auto) 8.8, Eos % (Auto) 0.2, Baso % (Auto) 0.4, Absolute Neuts (auto) 11.0 H, Absolute Lymphs (auto) 0.40 L, Nucleated RBC % 0, Differential Comment SCANNED, Anisocytosis 2+ 08/14/20 06:26: Sodium 136, Potassium 3.8, Chloride 101, Carbon Dioxide 28.0, Anion Gap 7, BUN 28 H, Creatinine 0.85, Estim Creat Clear Calc 84.95, Est GFR (MDRD) Af Amer 114, Est GFR (MDRD) Non-Af 94, BUN/Creatinine Ratio 33.1 H, Glucose 203 H, Calcium 8.0 L 08/14/20 06:26: Troponin I 0.046 H 08/14/20 06:43: POC Glucose 205 H Current Medications Acetaminophen (Acetaminophen 500 Mg Tablet) 1,000 mg PO TID PRN PRN PRN Reason: PAIN 1-10 OR TEMP Last Admin: 08/14/20 06:49 Dose: 1,000 mg Documented by: Aspirin (Aspirin E.C. 81 Mg Tablet) 81 mg PO DAILY RAYMON Bumetanide (Bumetanide 2 Mg Tablet) 2 mg PO DAILY RAYMON Clopidogrel Bisulfate (Clopidogrel Bisulfate 75 Mg Tablet) 75 mg PO DAILY RAYMON Dextrose (Dextrose 50%-Water 25 Gm/50 Ml Disp.Syrin) 0 gm IV X1 PRN; Protocol PRN Reason: Hypoglycemia Enoxaparin Sodium (Enoxaparin 40 Mg/0.4 Ml Syringe) 40 mg SC DAILY [facility] Glucagon (Glucagon 1 Mg/Ml Syringe) 1 mg IM .X1 PRN PRN Reason: Hypoglycemia Vancomycin IV Pharmacy to Dose (1 ea/ Sodium Chloride) 500 mls @ 250 mls/hr IV X1 PRN; Protocol PRN Reason: Rx to Dose Vancomycin HCl 1,500 mg/ (Sodium Chloride) 530 mls @ 250 mls/hr IV Q12H [facility] Insulin Glargine (Insulin Glargine 100 Units/Ml Pen) 15 units SC QPM [facility] Insulin Glargine (Insulin Glargine 100 Units/Ml Pen) 10 units SC BREAKFAST [facility] Insulin Human Lispro (Insulin Lispro 100 Unit/Ml Insuln.Pen) 0 unit SC ACHS [facility]; Protocol Last Admin: 08/14/20 06:49 Dose: 4 u Documented by: Levothyroxine Sodium (Levothyroxine 100 Mcg Tablet) 200 mcg PO DAILY@0600 [facility] Last Admin: 08/14/20 06:08 Dose: 200 mcg Documented by: Lisinopril (Lisinopril 2.5 Mg Tablet) 2.5 mg PO DAILY [facility] Metoprolol Succinate (Metoprolol(Xl)Succ 50 Mg Tablet) 50 mg PO DAILY [facility] Nitroglycerin (Nitroglycerin (Inpatient Use) 0.4 Mg Tab.Subl) 0.4 mg SUBLINGUAL Q5M PRN PRN Reason: CARDIAC/CHEST PAIN Nutritional Formula (Lactose Free) (Glucerna Shake 120 Ml Liquid) 120 ml PO TIDCM [facility] Ondansetron HCl (Ondansetron 4 Mg/2 Ml Vial) 4 mg IV Q8H PRN PRN PRN Reason: NAUSEA/VOMITING Oxycodone HCl (Oxycodone 5 Mg Tablet) 5 mg PO Q4H PRN PRN PRN Reason: Pain Score 1-10 Pantoprazole Sodium (Pantoprazole Sodium 40 Mg Tablet) 40 mg PO DAILY [facility] Pravastatin Sodium (Pravastatin 40 Mg Tablet) 40 mg PO QHS [facility] Prednisone (Pred[facility]one 5 Mg Tablet) [facility] Sodium Chloride (0.9% Saline Lock 10 Ml Syringe) 10 - 40 ml IV UD PRN PRN Reason: SALINE FLUSH Assessment/Plan All Active Problems (Last Reviewed 08/03/20 @ 13:04 by Elsie Wagner) Ulcer of left lower extremity with fat layer exposed (Resolved) Elevated lactic acid level (Acute) Intractable vomiting with nausea (Acute) Elevated bilirubin (Acute) Hyperglycemia due to diabetes mellitus (Acute) Cellulitis of right lower limb (Acute) Peripheral vascular disease (Acute) Decubitus ulcer of foot, stage 3 (Acute) Infected ulcer of skin (Acute) Dyspnea (Acute) Open wound of knee, leg, and ankle, complicated (Resolved) Surgical wound dehiscence (Resolved) Right foot ulceration Right foot cellulitis-MRSA Suspected osteomyelitis Diabetes with neuropathy History of BKA left foot, TMA right foot Heart failure with ejection fraction of 19% Patient seen and examined Patient was seen 08/11/[address] Agosto at the wound care center. At that time patient noted to have worsening right foot ulcerations were a culture was obtained which has since grown MRSA. After leaving the wound care center patient felt worse including increased pain redness drainage stomach upset and general feelings of unwellness the patient came to the ED. Patient says he still has not gotten in to see his ultrasound manager in order to sort out his pacemaker which he states is no longer working. Patient was seen in June 2020 for osteomyelitis as well. Patient at that time was sent home IV antibiotics for treatment. Patient has since completed that course. X-rays were reviewed.Osteolysis seen involving the stump of the fifth metatarsal and possibly the stump of the fourth metatarsal. I would like to get an MRI to assess bone infection and possible abscess but due to patient's pacemaker and is not possible White blood cell count of 17.3 on admission and 12.7 today, lactic acid admission was 2.3. ESR 16. CRP 197. LEAS on 04/08/2020 showed no flow to the right lower extremity. Patient had recent intervention with Dr. Busch. Patient reports that this went well, but worsening of the wound was noted to start after the intervention Wound culture from 08/11/2020 shows MRSA Continue IV antibiotics Continue wound care of Betadine wet-to-dry to the right lower extremity daily High suspicion of osteomyelitis as wound probes to bone, no purulent drainage is expressed today both noted to have been expressed at wound care center visit on Sunday. Drainage expressed today was more of a fibrotic serous type of fluid. Discussed possibility of going to the operating room in order to remove infected bone and or abscesses. No palpable abscesses noted on exam. Hard to tell extent of infection without more advanced imaging. Patient would like to save his foot and not end up with bilateral BKA's or in a wheelchair. Patient also like to get the infection under control in order to move forward with pacemaker correction as his ultrasound manager will not do anything while he still has a foot infection. Discussed all risks, benefits, alternatives, and complications including but not limited to infection delayed healing nonhealing need for further surgery or amputation with the patient. No guarantees were given or implied. Patient agreed to proceed with the procedure. All questions answered. Discussed case and surgery option with over telephone as well. Discussed case with hospitalist and will consult cardiology in order to get clearance as well Will potentially do surgery tomorrow morning once clearance is obtained. Plan for n.p.o. after midnight. Will contact nursing supervisor blood donor recruiters and anesthesia to confirm. Thank you for the consult Please contact if any questions or concerns Laine Shah DPM [facility] [phone] This note was generated with [employer] dictation software. It may contain incorrect words, spelling, and punctuation that were not noted in checking the note before signing.
--- NOTE | 2020-08-14 09:20 | CASEMGMT ---
SARI HAND Re-admission note: Prior admission: Pt admitted 08/06/20 for hyperglycemia and lactic acidosis. Discharged home on 08/08. Hx lt BKA and rt foot amputation of toes. Hx: DM, ischemic cardiomyopathy. EF 20%. Palliative care was to reach out to pt and family to provide info at that time. Pt had previously had 6 weeks of OP IV atb's @ [facility] OP infusion clinic in Jun, 2020/Jul 2020 for osteomyelitis as well. Pt had an appt @ the wound center 08/11/[address] Agosto and had debridement of new ulcer and also chronic ulcer. Cultures were sent and started on PO Augmentin. Pt developed nausea and dry heaves and increase in pain to rt foot. Current admission: Admitted 08/13 with severe sepsis d/t osteomyelitis rt foot. Started on IV atb's. Podiatry consulted and pt to have surgery to rt foot tomorrow 08/15. Cardiology has been consulted. Pt has AICD that requires generator change, but this has been delayed d/t ongoing infection. SARI HAND to room. Pt sitting up on edge of bed. Introduced self and role of SARI HAND. Pt made aware CM/SW will be available as needed for discharge planning/needs/conerns and will f/u with pt on Sunday. He denies needs at present. D/C Plan: JOSÉ MIGUEL GOTTLIEB RN, CM
[2020-08-14] MEDS: Glucerna Shake 120 ML LIQUID PO (09:40)
[2020-08-14] MEDS: predniSONE 5 MG Tablet 2.5 MG PO (09:42)
[2020-08-14] MEDS: Aspirin E.C. 81 MG Tablet PO (09:42)
[2020-08-14] MEDS: Bumetanide 2 MG Tablet PO (09:42)
[2020-08-14] MEDS: Clopidogrel Bisulfate 75 MG Tablet PO (09:43)
[2020-08-14] MEDS: Pantoprazole Sodium 40 MG Tablet PO (09:43)
[2020-08-14] MEDS: Lisinopril 2.5 MG Tablet PO (09:43)
[2020-08-14] MEDS: Metoprolol(XL)Succ 50 MG Tablet PO (09:43)
[2020-08-14] MEDS: Enoxaparin 40 MG/0.4 ML Syringe SC (09:43)
[2020-08-14] MEDS: oxyCODONE 5 MG Tablet PO ×3 (09:44→22:47)
[2020-08-14] MEDS: 0.9% Saline Lock 10 ML Syringe IV (09:49)
--- NOTE | 2020-08-14 11:01 | PCM.PROGNOTE ---
<Elsie Jacob TRENCH [employer]IMMER FINE - Last Filed: 08/14/20 11:20> Patient Problems: Active and Suspected Problems (Last Reviewed 08/03/20 @ 13:04 by Elsie Wagner) Hyperglycemia due to diabetes mellitus (Acute) Cellulitis of right lower limb (Acute) Peripheral vascular disease (Acute) Subjective: Patient seen and examined. Denies fever, chills. Denies right lower extremity pain. Plan for OR per podiatry pending cardiology clearance. Patient amenable to plan. - Physical Exam Vitals/I&O's: Vital Signs Temp Pulse Resp BP Pulse Ox 98.2 F 95 16 117/56 L 92 08/14/20 08:30 08/14/20 09:43 08/14/20 08:30 08/14/20 08:30 08/14/20 08:30 Oxygen Flow Rate (L/min) 2 Oxygen Delivery Method Room Air Weight: 200 lb 13.458 oz Body Mass Index (BMI) 27.2 Finger Stick Blood Glucose 318 Intake and Output for Last 24 Hours 08/12/20 08/13/20 08/14/20 23:59 23:59 23:59 Intake Total 275 / 275 3300 / 3300 Balance 275 / 275 3300 / 3300 General: Alert, Oriented x3, Cooperative HEENT: Atraumatic, PERRLA, EOMI, Normocephalic Neck: Supple, No JVD, Negative Carotid Bruits Lungs: Clear to auscultation, Diminished Cardiovascular: Regular rate, No murmurs Abdomen: Bowel Sounds Present, Soft, Non Tender, Non-Distended Extremities: No clubbing, No cyanosis, - - Left BKA Skin: No rashes, No breakdown, - - Right lower extremity dressing intact Musculoskeletal: No Tenderness to Palpation of Joints or Extremities Neurological: Cranial nerves II-XII grossly intact, Neuro grossly intact Psych/Mental Status: Normal Affect, Appropriate Microbiology Past 72 Hours 08/13/20 20:45 Mucosa - Nose SARS-CoV-2 Antigen (Rapid) - Final Laboratory Results 08/13/20 20:13: WBC 17.3 H, RBC 3.43 L, Hgb 10.6 L, Hct 33.3 L, MCV 97.1 H, MCH 30.9, MCHC 31.8 L, RDW Std Deviation 50.7 H, RDW Coeff of Jac 14.6, Plt Count 249, MPV 9.4, Immature Gran % (Auto) 1.000 H, Neut % (Auto) 87.9 H, Lymph % (Auto) 2.5 L, Stafford % (Auto) 8.2, Eos % (Auto) 0.1, Baso % (Auto) 0.3, Absolute Neuts (auto) 15.2 H, Absolute Lymphs (auto) 0.43 L, Nucleated RBC % 0, Differential Comment SCANNED, ESR 16 08/13/20 20:13: PT 15.9 H, INR 1.3, APTT 42.6 H 08/13/20 20:13: Sodium 132 L, Potassium 4.3, Chloride 94 L, Carbon Dioxide 30.0, Anion Gap 8, BUN 35 H, Creatinine 1.30, Estim Creat Clear Calc 53.90, Est GFR (MDRD) Af Amer 69, Est GFR (MDRD) Non-Af 57 L, BUN/Creatinine Ratio 26.9 H, Glucose 215 H, Calcium 8.6, Total Bilirubin 1.70 H, AST 25, ALT 70 H, Alkaline Phosphatase 114, Troponin I 0.043, C-React Prot Ext Range 197.00 H, Total Protein 7.5, Albumin 3.4, Globulin 4.1, Albumin/Globulin Ratio 0.8 L 08/13/20 20:13: Lactic Acid 2.3 H* 08/13/20 20:40: Urine Color Yellow, Urine Clarity Clear, Urine pH 5.0, Ur Specific [place] 1.020, Urine Protein 30 H, Urine Glucose (UA) 50 H, Urine Ketones Negative, Urine Occult Blood 25 H, Urine Nitrite Negative, Urine Bilirubin Negative, Urine Urobilinogen 4 H, Ur Leukocyte Esterase 25 H, Urine RBC 0 SEEN, Urine WBC 0-5 SEEN, Ur Squamous Epith Cells 0 SEEN, Urine Bacteria 0 SEEN, Hyaline Casts 0-5 SEEN, Urine Mucus 0 SEEN 08/14/20 00:20: Troponin I 0.058 H 08/14/20 00:20: Lactic Acid 1.2 08/14/20 03:47: Troponin I 0.062 H 08/14/20 06:26: WBC 12.7 H, RBC 3.04 L, Hgb 9.2 L, Hct 30.1 L, MCV 99.0 H, MCH 30.3, MCHC 30.6 L, RDW Std Deviation 51.9 H, RDW Coeff of Jac 14.5, Plt Count 182, MPV 9.0, Immature Gran % (Auto) 0.500, Neut % (Auto) 86.9 H, Lymph % (Auto) 3.2 L, Stafford % (Auto) 8.8, Eos % (Auto) 0.2, Baso % (Auto) 0.4, Absolute Neuts (auto) 11.0 H, Absolute Lymphs (auto) 0.40 L, Nucleated RBC % 0, Differential Comment SCANNED, Anisocytosis 2+ 08/14/20 06:26: Sodium 136, Potassium 3.8, Chloride 101, Carbon Dioxide 28.0, Anion Gap 7, BUN 28 H, Creatinine 0.85, Estim Creat Clear Calc 84.95, Est GFR (MDRD) Af Amer 114, Est GFR (MDRD) Non-Af 94, BUN/Creatinine Ratio 33.1 H, Glucose 203 H, Calcium 8.0 L 08/14/20 06:26: Troponin I 0.046 H 08/14/20 06:43: POC Glucose 205 H Current Medications Acetaminophen (Acetaminophen 500 Mg Tablet) 1,000 mg PO TID PRN PRN PRN Reason: PAIN 1-10 OR TEMP Last Admin: 08/14/20 06:49 Dose: 1,000 mg Documented by: Aspirin (Aspirin E.C. 81 Mg Tablet) 81 mg PO DAILY [facility] Last Admin: 08/14/20 09:42 Dose: 81 mg Documented by: Bumetanide (Bumetanide 2 Mg Tablet) 2 mg PO DAILY [facility] Last Admin: 08/14/20 09:42 Dose: 2 mg Documented by: Clopidogrel Bisulfate (Clopidogrel Bisulfate 75 Mg Tablet) 75 mg PO DAILY [facility] Last Admin: 08/14/20 09:43 Dose: 75 mg Documented by: Dextrose (Dextrose 50%-Water 25 Gm/50 Ml Disp.Syrin) 0 gm IV X1 PRN; Protocol PRN Reason: Hypoglycemia Docusate Sodium (Docusate Sodium 100 Mg Capsule) 200 mg PO BID PRN PRN PRN Reason: Constipation Enoxaparin Sodium (Enoxaparin 40 Mg/0.4 Ml Syringe) 40 mg SC DAILY [facility] Last Admin: 08/14/20 09:43 Dose: 40 mg Documented by: Glucagon (Glucagon 1 Mg/Ml Syringe) 1 mg IM .X1 PRN PRN Reason: Hypoglycemia Vancomycin IV Pharmacy to Dose (1 ea/ Sodium Chloride) 500 mls @ 250 mls/hr IV X1 PRN; Protocol PRN Reason: Rx to Dose Vancomycin HCl 1,500 mg/ (Sodium Chloride) 530 mls @ 250 mls/hr IV Q12H [facility] Last Admin: 08/14/20 09:48 Dose: 250 mls/hr Documented by: Insulin Glargine (Insulin Glargine 100 Units/Ml Pen) 15 units SC QPM [facility] Insulin Glargine (Insulin Glargine 100 Units/Ml Pen) 10 units SC BREAKFAST [facility] Last Admin: 08/14/20 09:45 Dose: 10 units Documented by: Insulin Human Lispro (Insulin Lispro 100 Unit/Ml Insuln.Pen) 0 unit SC ACHS [facility]; Protocol Last Admin: 08/14/20 06:49 Dose: 4 u Documented by: Levothyroxine Sodium (Levothyroxine 100 Mcg Tablet) 200 mcg PO DAILY@0600 [facility] Last Admin: 08/14/20 06:08 Dose: 200 mcg Documented by: Lisinopril (Lisinopril 2.5 Mg Tablet) 2.5 mg PO DAILY [facility] Last Admin: 08/14/20 09:43 Dose: 2.5 mg Documented by: Metoprolol Succinate (Metoprolol(Xl)Succ 50 Mg Tablet) 50 mg PO DAILY [facility] Last Admin: 08/14/20 09:43 Dose: 50 mg Documented by: Nitroglycerin (Nitroglycerin (Inpatient Use) 0.4 Mg Tab.Subl) 0.4 mg SUBLINGUAL Q5M PRN PRN Reason: CARDIAC/CHEST PAIN Nutritional Formula (Lactose Free) (Glucerna Shake 120 Ml Liquid) 120 ml PO TIDCM [facility] Last Admin: 08/14/20 09:40 Dose: 120 ml Documented by: Ondansetron HCl (Ondansetron 4 Mg/2 Ml Vial) 4 mg IV Q8H PRN PRN PRN Reason: NAUSEA/VOMITING Oxycodone HCl (Oxycodone 5 Mg Tablet) 5 mg PO Q4H PRN PRN PRN Reason: Pain Score 1-10 Last Admin: 08/14/20 09:44 Dose: 5 mg Documented by: Pantoprazole Sodium (Pantoprazole Sodium 40 Mg Tablet) 40 mg PO DAILY [facility] Last Admin: 08/14/20 09:43 Dose: 40 mg Documented by: Polyethylene Glycol (Polyethylene Glycol 3350 17 Gm Packet) 17 gm PO DAILY [facility] Pravastatin Sodium (Pravastatin 40 Mg Tablet) 40 mg PO QHS [facility] Prednisone (Prednisone 5 Mg Tablet[facility] Last Admin: 08/14/20 09:42 Dose: 2.5 mg Documented by: Sodium Chloride (0.9% Saline Lock 10 Ml Syringe) 10 - 40 ml IV UD PRN PRN Reason: SALINE FLUSH Last Admin: 08/14/20 09:49 Dose: 10 ml Documented by: Medical Necessity - Tobacco Use Smoking Status: Former smoker Assessment/Plan All Active Problems (Last Reviewed 08/03/20 @ 13:04 by Elsie Wagner) Ulcer of left lower extremity with fat layer exposed (Resolved) Elevated lactic acid level (Acute) Intractable vomiting with nausea (Acute) Elevated bilirubin (Acute) Hyperglycemia due to diabetes mellitus (Acute) Cellulitis of right lower limb (Acute) Peripheral vascular disease (Acute) Decubitus ulcer of foot, stage 3 (Acute) Infected ulcer of skin (Acute) Dyspnea (Acute) Open wound of knee, leg, and ankle, complicated (Resolved) Surgical wound dehiscence (Resolved) 1. Severe sepsis secondary to right foot ulceration with cellulitis with suspected osteomyelitis-podiatry consulted. Blood and wound cultures pending. Previous MRSA wound cultures. Continue IV vancomycin. X-ray demonstrates osteomyelitis of the stump of the fifth metatarsal and possibly stump of fourth metatarsal. ID consulted. Plan for OR pending cardiology clearance. Continue dressing changes as ordered. 2. Ischemic cardiomyopathy/chronic heart failure with reduced ejection fraction-status post ICD. Patient states he is due for battery replacement however cardiology will not move forward with this while he has an active infection. Recent echocardiogram 07/22/2020 demonstrated an EF of 20%. Continue home Bumex regimen. Cardiology clearance prior to surgery as noted above. 3. 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 Accu-Cheks with sliding scale insulin. Continue long-acting regimen. Recent hemoglobin A1c 06/15/20 6.8%. 4. 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 Continue supplement oxygen to maintain O2 at above 90%. 5. CAD with history of stents-on aspirin, Plavix, statin, metoprolol, lisinopril. 6. Hypothyroidism-continue Synthroid regimen. 7. Chronic macrocytic anemia-at baseline, trend CBC. DVT prophylaxis-Lovenox subcu This patient was seen by SHIMA Gonzalez under the supervision of Dr. Brunson. <Héctor Brunson - Last Filed: 08/14/20 12:23> - Physical Exam Vitals/I&O's: Vital Signs Temp Pulse Resp BP Pulse Ox 98.2 F 119 H 16 117/56 L 92 08/14/20 08:30 08/14/20 11:36 08/14/20 08:30 08/14/20 08:30 08/14/20 08:30 Oxygen Flow Rate (L/min) 2 Oxygen Delivery Method Room Air Weight: 91.1 kg Body Mass Index (BMI) 27.2 Finger Stick Blood Glucose 318 Intake and Output for Last 24 Hours 08/12/20 08/13/20 08/14/20 23:59 23:59 23:59 Intake Total 275 / 275 3300 / 3300 Balance 275 / 275 3300 / 3300 Microbiology Past 72 Hours 08/13/20 20:45 Mucosa - Nose SARS-CoV-2 Antigen (Rapid) - Final Laboratory Results 08/13/20 20:13: WBC 17.3 H, RBC 3.43 L, Hgb 10.6 L, Hct 33.3 L, MCV 97.1 H, MCH 30.9, MCHC 31.8 L, RDW Std Deviation 50.7 H, RDW Coeff of Jac 14.6, Plt Count 249, MPV 9.4, Immature Gran % (Auto) 1.000 H, Neut % (Auto) 87.9 H, Lymph % (Auto) 2.5 L, Stafford % (Auto) 8.2, Eos % (Auto) 0.1, Baso % (Auto) 0.3, Absolute Neuts (auto) 15.2 H, Absolute Lymphs (auto) 0.43 L, Nucleated RBC % 0, Differential Comment SCANNED, ESR 16 08/13/20 20:13: PT 15.9 H, INR 1.3, APTT 42.6 H 08/13/20 20:13: Sodium 132 L, Potassium 4.3, Chloride 94 L, Carbon Dioxide 30.0, Anion Gap 8, BUN 35 H, Creatinine 1.30, Estim Creat Clear Calc 53.90, Est GFR (MDRD) Af Amer 69, Est GFR (MDRD) Non-Af 57 L, BUN/Creatinine Ratio 26.9 H, Glucose 215 H, Calcium 8.6, Total Bilirubin 1.70 H, AST 25, ALT 70 H, Alkaline Phosphatase 114, Troponin I 0.043, C-React Prot Ext Range 197.00 H, Total Protein 7.5, Albumin 3.4, Globulin 4.1, Albumin/Globulin Ratio 0.8 L 08/13/20 20:13: Lactic Acid 2.3 H* 08/13/20 20:40: Urine Color Yellow, Urine Clarity Clear, Urine pH 5.0, Ur Specific [place] 1.020, Urine Protein 30 H, Urine Glucose (UA) 50 H, Urine Ketones Negative, Urine Occult Blood 25 H, Urine Nitrite Negative, Urine Bilirubin Negative, Urine Urobilinogen 4 H, Ur Leukocyte Esterase 25 H, Urine RBC 0 SEEN, Urine WBC 0-5 SEEN, Ur Squamous Epith Cells 0 SEEN, Urine Bacteria 0 SEEN, Hyaline Casts 0-5 SEEN, Urine Mucus 0 SEEN 08/14/20 00:20: Troponin I 0.058 H 08/14/20 00:20: Lactic Acid 1.2 08/14/20 03:47: Troponin I 0.062 H 08/14/20 06:26: WBC 12.7 H, RBC 3.04 L, Hgb 9.2 L, Hct 30.1 L, MCV 99.0 H, MCH 30.3, MCHC 30.6 L, RDW Std Deviation 51.9 H, RDW Coeff of Jac 14.5, Plt Count 182, MPV 9.0, Immature Gran % (Auto) 0.500, Neut % (Auto) 86.9 H, Lymph % (Auto) 3.2 L, Stafford % (Auto) 8.8, Eos % (Auto) 0.2, Baso % (Auto) 0.4, Absolute Neuts (auto) 11.0 H, Absolute Lymphs (auto) 0.40 L, Nucleated RBC % 0, Differential Comment SCANNED, Anisocytosis 2+ 08/14/20 06:26: Sodium 136, Potassium 3.8, Chloride 101, Carbon Dioxide 28.0, Anion Gap 7, BUN 28 H, Creatinine 0.85, Estim Creat Clear Calc 84.95, Est GFR (MDRD) Af Amer 114, Est GFR (MDRD) Non-Af 94, BUN/Creatinine Ratio 33.1 H, Glucose 203 H, Calcium 8.0 L 08/14/20 06:26: Troponin I 0.046 H 08/14/20 06:43: POC Glucose 205 H 08/14/20 11:22: POC Glucose 281 H Current Medications Acetaminophen (Acetaminophen 500 Mg Tablet) 1,000 mg PO TID PRN PRN PRN Reason: PAIN 1-10 OR TEMP Last Admin: 08/14/20 11:31 Dose: 1,000 mg Documented by: Aspirin (Aspirin E.C. 81 Mg Tablet) 81 mg PO DAILY [facility] Last Admin: 08/14/20 09:42 Dose: 81 mg Documented by: Bumetanide (Bumetanide 2 Mg Tablet) 2 mg PO DAILY [facility] Last Admin: 08/14/20 09:42 Dose: 2 mg Documented by: Clopidogrel Bisulfate (Clopidogrel Bisulfate 75 Mg Tablet) 75 mg PO DAILY [facility] Last Admin: 08/14/20 09:43 Dose: 75 mg Documented by: Dextrose (Dextrose 50%-Water 25 Gm/50 Ml Disp.Syrin) 0 gm IV X1 PRN; Protocol PRN Reason: Hypoglycemia Docusate Sodium (Docusate Sodium 100 Mg Capsule) 200 mg PO BID PRN PRN PRN Reason: Constipation Enoxaparin Sodium (Enoxaparin 40 Mg/0.4 Ml Syringe) 40 mg SC DAILY [facility] Last Admin: 08/14/20 09:43 Dose: 40 mg Documented by: Glucagon (Glucagon 1 Mg/Ml Syringe) 1 mg IM .X1 PRN PRN Reason: Hypoglycemia Vancomycin IV Pharmacy to Dose (1 ea/ Sodium Chloride) 500 mls @ 250 mls/hr IV X1 PRN; Protocol PRN Reason: Rx to Dose Vancomycin HCl 1,500 mg/ (Sodium Chloride) 530 mls @ 250 mls/hr IV Q12H [facility] Last Admin: 08/14/20 09:48 Dose: 250 mls/hr Documented by: Insulin Glargine (Insulin Glargine 100 Units/Ml Pen) 15 units SC QPM [facility] Insulin Glargine (Insulin Glargine 100 Units/Ml Pen) 10 units SC BREAKFAST [facility] Last Admin: 08/14/20 09:45 Dose: 10 units Documented by: Insulin Human Lispro (Insulin Lispro 100 Unit/Ml Insuln.Pen) 0 unit SC ACHS [facility]; Protocol Last Admin: 08/14/20 11:25 Dose: 6 u Documented by: Levothyroxine Sodium (Levothyroxine 100 Mcg Tablet) 200 mcg PO DAILY@0600 [facility] Last Admin: 08/14/20 06:08 Dose: 200 mcg Documented by: Lisinopril (Lisinopril 2.5 Mg Tablet) 2.5 mg PO DAILY [facility] Last Admin: 08/14/20 09:43 Dose: 2.5 mg Documented by: Metoprolol Succinate (Metoprolol(Xl)Succ 50 Mg Tablet) 50 mg PO DAILY [facility] Last Admin: 08/14/20 09:43 Dose: 50 mg Documented by: Nitroglycerin (Nitroglycerin (Inpatient Use) 0.4 Mg Tab.Subl) 0.4 mg SUBLINGUAL Q5M PRN PRN Reason: CARDIAC/CHEST PAIN Nutritional Formula (Lactose Free) (Glucerna Shake 120 Ml Liquid) 120 ml PO TIDCM [facility] Last Admin: 08/14/20 11:24 Dose: Not Given Documented by: Ondansetron HCl (Ondansetron 4 Mg/2 Ml Vial) 4 mg IV Q8H PRN PRN PRN Reason: NAUSEA/VOMITING Oxycodone HCl (Oxycodone 5 Mg Tablet) 5 mg PO Q4H PRN PRN PRN Reason: Pain Score 1-10 Last Admin: 08/14/20 09:44 Dose: 5 mg Documented by: Pantoprazole Sodium (Pantoprazole Sodium 40 Mg Tablet) 40 mg PO DAILY [facility] Last Admin: 08/14/20 09:43 Dose: 40 mg Documented by: Polyethylene Glycol (Polyethylene Glycol 3350 17 Gm Packet) 17 gm PO DAILY [facility] Last Admin: 08/14/20 11:30 Dose: 17 gm Documented by: Pravastatin Sodium (Pravastatin 40 Mg Tablet) 40 mg PO QHS [facility] Prednisone (Pred[facility] 5 Mg [facility] Last Admin: 08/14/20 09:42 Dose: 2.5 mg Documented by: Sodium Chloride (0.9% Saline Lock 10 Ml Syringe) 10 - 40 ml IV UD PRN PRN Reason: SALINE FLUSH Last Admin: 08/14/20 09:49 Dose: 10 ml Documented by: Assessment/Plan This patient was seen in conjunction with SHIMA Gonzalez . I have independently interviewed and examined the patient and reviewed pertinent historical, laboratory, and other data. Please refer to SHIMA Gonzalez note for details of this patient's presentation, findings, and recommendations. I have reviewed SHIMA Gonzalez note and concur with documented findings. In brief, patient is a 74-year-old gentleman with multiple comorbidities including diabetic foot ulcer presented with right foot ulceration and cellulitis with suspected osteomyelitis. Antibiotics started per protocol patient admitted to monitored bed with consultation placed to podiatry and infectious disease Physical Examination: GENERAL: cooperative HEENT: Atraumatic; EYES; Anicteric, Normal Conjunctiva NECK; supple, normal thyroid, RESPIRATORY: Diminished to auscultation CARDIOVASCULAR: Regular S1 S2, GI: soft, normoactive bowel sounds, : No Renal angle tenderness; EXTREMITIES: Left BKA right foot with stump ulceration and redness MUSCULOSKELETAL: no muscle waisting NEURO: Awake; no lateralizing signs. SKIN: As described above PSYCH; Flat affect Assessment: . Severe sepsis 2. Diabetic foot ulcer (right foot ulcer with cellulitis and suspected osteomyelitis 3. Diabetes mellitus type 2 4. Coronary artery disease previous PCI with stent placement 5. Ischemic cardiomyopathy status post AICD placement 6. Anemia of chronic disorder 7. Hypothyroidism 8. Chronic congestive heart failure with reduced ejection fraction EF 20% 9. DVT prophylaxis Recommendations: 1. I have discussed the results of my overview and impressions with the patient 2. Options for management were reviewed Inpatient E&M: [id number] [facility] L3
[2020-08-14] MEDS: Polyethylene Glycol 3350 17 GM PACKET PO (11:30)
[2020-08-14 11:41] LABS: Bedside Glucose 281 mg/dL (70-110)
--- NOTE | 2020-08-14 13:36 | CON.PCM_ITS ---
Reason for Consult Date of Consultation: 08/14/20 Reason for Consultation: Preoperative evaluation History of Present Illness: The patient is a 74 year old M [seen in our office last on 07/23/2020. Please refer to that note for full details. In brief, 74-year-old male with past medic al history of coronary artery disease status post CABG, ischemic cardiomyopathy with an EF of 20% status post AICD that requires generator change in the near future admitted to [facility] for osteomyelitis. He denies any chest pain. His shortness of breath is at baseline. Cardiology consult was requested for preoperative evaluation prior to surgery for the osteomyelitis. Patient's AICD generator change has also been delayed because of his ongoing infection. Past Medical History Allergies/Adverse Reactions: Allergies amiodarone Allergy (Severe, Verified 08/14/20 00:24) pulmonary fibrosis sotalol Allergy (Severe, Verified 08/14/20 00:24) intolerant levofloxacin [From Levaquin] Allergy (Verified 08/14/20 00:24) Pain in joints LEG CRAMPING gabapentin Adverse Reaction (Verified 08/14/20 00:24) Diarrhea latex Adverse Reaction (Verified 08/14/20 00:24) Rash Home Medications: Ambulatory Orders Medication Instructions Recorded Oxycodone HCl/Acetaminophen 1 - 2 tab PO Q4H PRN PRN 03/17/15 [Percocet 5-325] acetaminophen 500 mg tablet 1,000 mg PO 4X/DAY tab 08/05/19 levothyroxine 200 mcg tablet 200 mcg PO DAILY 08/05/19 omeprazole 40 mg capsule,delayed 40 mg PO DAILY 08/05/19 release prednisone 2.5 mg tablet 2.5 mg PO DAILY 08/05/19 aspirin 81 mg tablet,delayed 81 mg PO DAILY 12/17/19 release Insulin Glargine,Hum.rec.anlog 15 unit SQ BID 06/09/20 [Lantus] Insulin Regular, Human [Novolin R] See Protocol SC QHS 06/09/20 Bumetanide 2 mg PO DAILY 06/11/20 Insulin Regular, Human [Novolin R] 10 units SC BREAKFAST 06/11/20 Insulin Regular, Human [Novolin R] 20 units SC DINNER 06/11/20 Clopidogrel Bisulfate [Clopidogrel] 75 mg PO DAILY 08/06/20 Lisinopril 2.5 mg PO DAILY 08/06/20 Metoprolol(XL)Succ [Toprol Xl 50 mg PO DAILY 08/06/20 (Beta Kavita)] Pravastatin Sodium 40 mg PO QHS 08/06/20 Past Medical History (Chronic Problems): Chronic Problems (Last Reviewed 08/03/20 @ 13:04 by Elsie Wagner) Below-knee amputation of left lower extremity (Chronic) 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) Malnutrition (Chronic) Amputation of right foot (Chronic) transmetatarsal amputation Other specified peripheral vascular diseases (Chronic) Type 2 diabetes mellitus with diabetic polyneuropathy (Chronic) Delayed wound healing (Chronic) History of angioplasty of peripheral vessel (Chronic ~05/04/20) Ischemic cardiomyopathy (Chronic) Biventricular implantable cardioverter-defibrillator (ICD) in situ (Chronic) 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) 2006, 2012 gen change History of coronary artery stent placement (Chronic ~03/2019) 3.0 x 12 mm Rebel BMS to pD1 03/27/19 Peripheral vascular disease due to secondary diabetes (Chronic) Coronary artery disease involving [place] coronary artery of [place] heart (Chronic) MAYS to LAD, SVG to PDA 10/2003; 3.0 x 12 mm Rebel BMS to pD1 03/27/19 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) Surgical History: coronary bypass surgery - *Family History Maternal Family History: Family History (Last Reviewed 08/03/20 @ 13:04 by Elsie Wagner) Sister Diabetes Mother Heart disease Father Diabetes Lives: Spouse/ Significant Other Smoking Status: Former smoker Alcohol: None Drugs: None Objective: Vital Signs Temp Pulse Resp BP Pulse Ox 98.2 F 119 H 16 117/56 L 92 08/14/20 08:30 08/14/20 11:36 08/14/20 08:30 08/14/20 08:30 08/14/20 08:30 Oxygen Flow Rate (L/min) 2 Oxygen Delivery Method Room Air Weight: 200 lb 13.458 oz Body Mass Index (BMI) 27.2 Finger Stick Blood Glucose 318 Intake and Output for Last 24 Hours 08/12/20 08/13/20 08/14/20 23:59 23:59 23:59 Intake Total 275 / 275 3790 / 3790 Balance 275 / 275 3790 / 3790 General: Awake, Alert, Oriented x 3 Psych/Mental Status: Appropriate 08/13/20 20:13: WBC 17.3 H, RBC 3.43 L, Hgb 10.6 L, Hct 33.3 L, MCV 97.1 H, MCH 30.9, MCHC 31.8 L, Plt Count 249, MPV 9.4, Immature Gran % (Auto) 1.000 H, Neut % (Auto) 87.9 H, Lymph % (Auto) 2.5 L, [place] % (Auto) 8.2, Eos % (Auto) 0.1, Baso % (Auto) 0.3, Absolute Neuts (auto) 15.2 H, Nucleated RBC % 0 08/13/20 20:13: PT 15.9 H, INR 1.3, APTT 42.6 H 08/13/20 20:13: Sodium 132 L, Potassium 4.3, Chloride 94 L, Carbon Dioxide 30.0, Anion Gap 8, BUN 35 H, Creatinine 1.30, Est GFR (MDRD) Af Amer 69, Est GFR (MDRD) Non-Af 57 L, BUN/Creatinine Ratio 26.9 H, Glucose 215 H, Calcium 8.6, Total Bilirubin 1.70 H, Troponin I 0.043 08/13/20 20:13: Lactic Acid 2.3 H* 08/13/20 20:40: Urine Color Yellow, Urine Clarity Clear, Urine pH 5.0, Ur Specific [place] 1.020, Urine Protein 30 H, Urine Glucose (UA) 50 H, Urine Ketones Negative, Urine Occult Blood 25 H, Urine Nitrite Negative, Urine Bilirubin Negative, Urine Urobilinogen 4 H, Ur Leukocyte Esterase 25 H, Urine RBC 0 SEEN, Urine WBC 0-5 SEEN 08/14/20 00:20: Troponin I 0.058 H 08/14/20 00:20: Lactic Acid 1.2 08/14/20 03:47: Troponin I 0.062 H 08/14/20 06:26: WBC 12.7 H, RBC 3.04 L, Hgb 9.2 L, Hct 30.1 L, MCV 99.0 H, MCH 30.3, MCHC 30.6 L, Plt Count 182, MPV 9.0, Immature Gran % (Auto) 0.500, Neut % (Auto) 86.9 H, Lymph % (Auto) 3.2 L, [place]anner % (Auto) 8.8, Eos % (Auto) 0.2, Baso % (Auto) 0.4, Absolute Neuts (auto) 11.0 H, Nucleated RBC % 0 08/14/20 06:26: Sodium 136, Potassium 3.8, Chloride 101, Carbon Dioxide 28.0, Anion Gap 7, BUN 28 H, Creatinine 0.85, Est GFR (MDRD) Af Amer 114, Est GFR (MDRD) Non-Af 94, BUN/Creatinine Ratio 33.1 H, Glucose 203 H, Calcium 8.0 L 08/14/20 06:26: Troponin I 0.046 H Rhythm: EKG: ECHO: Stress Test: Cardiac Cath: PCI: CT Surgery: Holter monitor: EPS: PPM: CXR: Chest CT Scan: Assessment/Plan 1. Preoperative cardiovascular evaluation: Patient had a recent stress test that was negative for ischemia. He is compensated from a CHF standpoint as well. No further preoperative cardiovascular testing is required prior to surgery for his osteomyelitis. Patient would be considered low risk for perioperative cardiovascular complications from this procedure. 2. Coronary artery disease: Stable. 3. CHF: Compensated. continue present management We will sign off at this time. Please let us know if we can be of any further assistance. 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
--- NOTE | 2020-08-14 18:09 | NURSING ---
Spoke with Dr. Barry regarding patient's pacer. This RN had attempted to check the device with both types of pacer checks we have and neither recognized it. Dr Barry expressed he is ok with the surgical procedure continuing without a device check as the surgical site is not in close proximity to the pacer and if necessary a magnet could be placed.
[2020-08-14 18:10] LABS: Bedside Glucose 267 mg/dL (70-110)
[2020-08-14] MEDS: Pravastatin 40 MG Tablet PO (22:47)
[2020-08-15] VITALS (17 sets, daily range): BP systolic 98–109; BP diastolic 51–61; PULSE 75–119; RESP 16–18; TEMP 36–36.9; O2SAT 96–100
[2020-08-15 00:46] LABS: Bedside Glucose 283 mg/dL (70-110)
[2020-08-15 06:10] LABS: Hematocrit 31.1 % (40-54); Hemoglobin 9.4 g/dL (13.0-16.5); Mean Corp Hgb Conc 30.2 g/dL (32-36); Mean Corpuscular Hgb 30.4 pg (27.0-32.0); Mean Corpuscular Volume 100.6 fL (80-94); Mean Platelet Vol. 9.3 fl (6.2-12.0); Platelet Count 229 K/mm3 (150-450); RBC Distribution Width CV 14.6 % (11.6-14.6); RBC Distribution Width SD 52.4 fl (35.1-43.9); Red Blood Count 3.09 M/mm3 (4.6-6.2); White Blood Count 13.8 K/mm3 (4.4-11.0)
[2020-08-15] MEDS: Levothyroxine 100 MCG Tablet 200 MCG PO (06:12)
[2020-08-15 06:34] LABS: Anion Gap 5 (5-15); BUN 29 mg/dL (7-18); BUN/Creat Ratio 26.6 RATIO (10-20); Calcium,Total 8.1 mg/dL (8.5-10.1); Chloride 101 mmol/L (98-107); Creatinine, Serum 1.09 mg/dL (0.70-1.30); EST Glomerular Filtration Rate 70 mL/min (>60); Est Glom Filt Rate - Afr Amer 85 mL/min (>60); Estimated Creatinine Clearance 66.25 ml/min; Glucose 173 mg/dL (74-106); Potassium 3.9 mmol/L (3.5-5.1); Sodium Level 136 mmol/L (136-145)
[2020-08-15 07:05] LABS: Bedside Glucose 168 mg/dL (70-110)
--- NOTE | 2020-08-15 07:35 | NURSING ---
Report given to SARI Jang in surgery. RN called and spoke with patient's . Updated her that patient is heading to surgery.
--- NOTE | 2020-08-15 07:58 | OP.PCM_ITS ---
Problem List (1) Peripheral vascular disease Status: Acute (2) Below-knee amputation of left lower extremity Status: Chronic (3) Hyperglycemia due to diabetes mellitus Status: Acute (4) Cellulitis of right lower limb Status: Acute (5) Osteomyelitis of right foot Status: Chronic (6) Ulcer of right foot with necrosis of bone Status: Chronic (7) Malnutrition Status: Chronic (8) Amputation of right foot Status: Chronic Qualifiers: Comment: transmetatarsal amputation (9) Type 2 diabetes mellitus with diabetic polyneuropathy Status: Chronic (10) Delayed wound healing Status: Chronic (11) Presence of permanent cardiac pacemaker Status: Chronic Comment: 2012 gen change Report of Operation Date of Procedure: 08/15/20 Pre-Operative Diagnosis: Right foot ulceration. Right foot suspected osteomyelitis. Right foot cellulitis. Diabetes with neuropathy. History of right foot transmetatarsal amputation. History of left foot BKA Post-Operative Diagnosis: Same Surgery/Procedure Performed:: Revisional right foot transmetatarsal amputation with excision of fourth and fifth metatarsals, incision and drainage right foot Description of Surgical Findings:: Hemostasis: Ankle tourniquet Suture 3-0 Vicryl, 3-0 nylon and 4-0 nylon Material of the vivek 5cc exhibit preparator: Laine Shah - Dr Laine Shah surgeon, Carol Brink PGY1, 1st assist Type of Anesthesia:: Block,Regional - Popliteal right lower extremity, Local Specimen's removed: Right foot fourth and fifth metatarsal remnants bone. Deep culture swab right lateral foot Estimated Blood Loss (mL): <50cc Description of Procedure: Indication for procedure: Patient is a 74-year-old male who presents to the emergency department with worsening of right foot infection with ulcerations. Patient was seen at the wound care center by Dr. Agosto on this past Sunday where the wound was noted to have worsened with new ulcer development to the lateral aspect of his foot. Patient has a history of a TMA on the right side and a BKA on the left side. Patient was admitted with sepsis. Patient was started on IV antibiotics. Patient noted to have bacteremia. Patient has had previous 6-week course of IV antibiotics back in June 2020 for the same infection. Patient has heart problems with an ejection fraction of 19% and needs some work replaced on his pacemaker. Patient cannot get this work done until his foot infection is cleared. Due to pacemaker patient was unable to obtain an MRI. X-ray showed concern for osteomyelitis to the fourth and fifth metatarsals. Discussed with patient need to go to surgery to remove the infected bones and clear out any remaining infection. No purulence was expressed or abscess felt on examination. Discussed all risks, benefits, alternatives, and complications including but not limited to infection delayed healing nonhealing need for further surgery with the patient. No guarantees were given or implied. Patient agreed to proceed with the procedure. All questions answered. Patient was seen in preoperative holding area prior to being transferred to the OR. Description of the procedure Patient was seen in the preoperative holding area where chart was reviewed and patient was examined and all questions were answered to patient satisfaction. A popliteal block was applied to the patient's right lower extremity via anesthesiologist. Patient then transferred to the OR and placed on the OR table in supine position. After administration of IV line IV sedation additional 20 cc of half percent Marcaine plain and 1% lidocaine plain in 1:1 mixture was i njected in ankle block type fashion. A well-padded ankle tourniquet was applied but not inflated at this time. The operative foot and ankle were then prepped and draped in the usual sterile fashion. The operative limb was elevated and exsanguinated and the ankle tourniquet was inflated at 250mmHg. It was then lowered on sterile field. A skin scribe was then utilized in order to draw out the incision to the lateral aspect of the foot and a 15 blade was then utilized to make the 8 cm incision in a through and through fashion through epidermal dermal layers into the subcutaneous tissue with all vital neurovascular structures retracted or cauterized as necessary. Incision was deepened down to the level of bone. No purulent drainage or abscess pockets were noted. The fifth and fourth metatarsal were then removed from the foot with portion sent to microbiology and pathology as specimen. Site was then examined and all remaining devitalized tissue was removed; no remaining infection or purulent drainage was seen. There is no evidence of tracking. Remaining bone was healthy in appearance. Cuboid and third metatarsal were hard and healthy in appearance. The site was then flushed with copious amounts of normal sterile saline utilizing a pulse lavage. Deep swab cultures were then obtained post lavage and sent to microbiology. Bleeding was controlled with cautery and Vivek usage. Site was then closed in a layered suture fashion with Vicryl for the deep layers and nylon for skin layers. The pre-existing ulcerations to the lateral foot were excised and were able to be closed within the incision line. The site was then dressed with Betadine soaked Adaptic, 4 x 4's, ABDs, Kerlix, Jem wrap. The ankle tourniquet was deflated with prompt brisk hyperemic response noted to all digits patient's operative foot. Patient was then sent to PACU with vital signs status intact. Patient will be readmitted to the floor. Podiatry will follow up with patient - Complications None - Admit VTE Documentation VTE Mechan Device Prophylaxis: None - Nonoperative limb has a BKA VTE Pharm Prophylaxis ordered?: Yes
--- NOTE | 2020-08-15 08:00 | BON_PTH ---
PATIENT: KURT JEONG LOC: [facility] U#:[id number] AGE/SX: 74/M ROOM: [facility] RE08/13/[address]: Dr. Eda Morin MD : 1945 BED: 1 DIS: 08/17/2020 SPEC #: [id number] RECD: 08/16/20 07:14 STATUS: RAHUL REQ #: [id number] ALVARO: 08/15/20 08:[address]: Laine Shah DEPT: SURGICAL PATHOLOGY RECD BY: Destiny Delgado ENTERED: 08/16/20 08:21 SP TYPE: Bone OTHR DR: MD Dr. Laine Parr, DPM MD Dr. Jovana Henson MD Dr. Robert Leininger, MD Dr. Steven Murray, MD Tissues: Toe, NOS Procedures: Decalcification bone/plaque Surgery Specimen Level IV Comments: @ Ordering doctor for DEC edited from to @ by ZULMA at 08/16/20 1026 @ Ordering doctor for SUIV edited from to DR.KKUBIA Keven MAYA at 08/16/20 1026 @ Submitting doctor edited from to DR.KKUBIA Keven MAYA at 08/16/20 1026 HEADER OPERATION: Right foot revisional transmetatarsal amputation with excision PRE-OP DIAGNOSIS: Right foot cellulitis, osteomyelitis, diabetic foot infection TISSUE SUBMITTED: Right fourth and fifth metatarsal bones MICROSCOPIC DIAGNOSIS Right fourth and fifth metatarsal bones, excisions: Acute osteomyelitis. Reactive and reparative change. AM:julieta 08/19/2020 MICROSCOPIC DESCRIPTION Slides are reviewed. GROSS DESCRIPTION Received in fixative is one container labeled with the patient's name and designated right fourth and fifth metatarsal bone. The specimen consists of two irregular fragments of sheridan-red bone. The smaller fragment measures 2.5 x 2 x 1.6 cm. The larger fragment measures 4.5 x 2.5 x 1.5 cm. Sewer System Supervisor sections of bone from smaller fragment are submitted in cassette 1 after decalcification. Sewer System Supervisor sections of bone from larger fragment are submitted in cassettes 2 & 3 after decalcification. / AM:julieta 08/16/20 TC:2 CPT: 40905, 96726
[2020-08-15] MEDS: Lidocaine 1% (30 ml sdv) 30 ML Vial (08:15)
[2020-08-15] MEDS: Bupivacaine Mpf 0.5% 30 ML VIAL (08:15)
--- NOTE | 2020-08-15 09:52 | RAD_ITS ---
STUDY: X-RAY - RIGHT FOOT CLINICAL: Male, 74 years old. Post TECHNIQUE: 3 view(s) of the foot. COMPARISON: 08/13/20 FINDINGS: There are stable postoperative changes from amputation of the right foot at the level of the proximal metatarsal. Since the prior examination, the patient is status post resection of the stumps of the fourth and fifth metatarsals. The remainder of the visualized osseous structures are intact. There is no definite radiographic evidence of osteomyelitis. Again noted are vascular calcifications. There are no radiodense foreign bodies. RAD/Foot min 3 Views IMPRESSION: Since the prior examination, the patient is status post resection of the stumps of the fourth and fifth metatarsals. No definite radiographic findings of osteomyelitis. Electronically Signed: Jcarlos Larkin MD at 11:28 EST Tel , Service support ,
--- NOTE | 2020-08-15 10:36 | PN_ITS ---
<Elsie Jacob STABLE HAND - Last Filed: 08/15/20 10:40> Patient Problems: Active and Suspected Problems (Last Reviewed 08/03/20 @ 13:04 by Elsie Wanger) Hyperglycemia due to diabetes mellitus (Acute) Cellulitis of right lower limb (Acute) Peripheral vascular disease (Acute) Subjective: Patient seen and examined. Returned from the OR, underwent revisional right foot transmetatarsal amputation with excision of fourth and fifth metatarsals and incision and drainage of right foot. Pain currently controlled. Denies other symptoms or complaints. - Physical Exam Vitals/I&O's: Vital Signs Temp Pulse Resp BP Pulse Ox 96.8 F L 86 16 98/51 L 100 08/15/20 09:46 08/15/20 09:46 08/15/20 09:46 08/15/20 09:46 08/15/20 09:46 Oxygen Flow Rate (L/min) 100 Oxygen Delivery Method Nasal Cannula Weight: 200 lb 13.458 oz Body Mass Index (BMI) 27.2 Finger Stick Blood Glucose 318 Intake and Output for Last 24 Hours 08/13/20 08/14/20 08/15/20 23:59 23:59 23:59 Intake Total 275 / 275 5330 / 5330 0 / 0 Balance 275 / 275 5330 / 5330 0 / 0 General: Alert, Oriented x3, Cooperative HEENT: Atraumatic, PERRLA, EOMI, Normocephalic Neck: Supple, No JVD, Negative Carotid Bruits Lungs: Clear to auscultation, Normal air movement Cardiovascular: Regular rate, No murmurs Abdomen: Bowel Sounds Present, Soft, Non Tender Extremities: No clubbing, No cyanosis, No edema, Capillary Refill Less than 3 Seconds, - - Left BKA Skin: No rashes, No breakdown, - - Right foot postop dressing intact Musculoskeletal: No Tenderness to Palpation of Joints or Extremities Neurological: Cranial nerves II-XII grossly intact, Neuro grossly intact Psych/Mental Status: Normal Affect, Appropriate Microbiology Past 72 Hours 08/13/20 20:40 Urine, Clean Catch Urine Culture - Preliminary Culture exhibits no growth. 08/13/20 20:45 Mucosa - Nose SARS-CoV-2 Antigen (Rapid) - Final Laboratory Results 08/14/20 11:22: POC Glucose 281 H 08/14/20 17:27: POC Glucose 267 H 08/14/20 22:24: POC Glucose 283 H 08/15/20 05:15: WBC 13.8 H, RBC 3.09 L, Hgb 9.4 L, Hct 31.1 L, MCV 100.6 H, MCH 30.4, MCHC 30.2 L, RDW Std Deviation 52.4 H, RDW Coeff of Jac 14.6, Plt Count 229, MPV 9.3 08/15/20 05:15: Sodium 136, Potassium 3.9, Chloride 101, Carbon Dioxide 30.0, Anion Gap 5, BUN 29 H, Creatinine 1.09, Estim Creat Clear Calc 66.25, Est GFR (MDRD) Af Amer 85, Est GFR (MDRD) Non-Af 70, BUN/Creatinine Ratio 26.6 H, Glucose 173 H, Calcium 8.1 L 08/15/20 06:56: POC Glucose 168 H Current Medications Acetaminophen (Acetaminophen 500 Mg Tablet) 1,000 mg PO TID PRN PRN PRN Reason: PAIN 1-10 OR TEMP Last Admin: 08/14/20 11:31 Dose: 1,000 mg Documented by: Aspirin (Aspirin E.C. 81 Mg Tablet) 81 mg PO DAILY [facility] Last Admin: 08/14/20 09:42 Dose: 81 mg Documented by: Bumetanide (Bumetanide 2 Mg Tablet) 2 mg PO DAILY [facility] Last Admin: 08/14/20 09:42 Dose: 2 mg Documented by: Clopidogrel Bisulfate (Clopidogrel Bisulfate 75 Mg Tablet) 75 mg PO DAILY [facility] Last Admin: 08/14/20 09:43 Dose: 75 mg Documented by: Dextrose (Dextrose 50%-Water 25 Gm/50 Ml Disp.Syrin) 0 gm IV X1 PRN; Protocol PRN Reason: Hypoglycemia Docusate Sodium (Docusate Sodium 100 Mg Capsule) 200 mg PO BID PRN PRN PRN Reason: Constipation Enoxaparin Sodium (Enoxaparin 40 Mg/0.4 Ml Syringe) 40 mg SC DAILY [facility] Last Admin: 08/14/20 09:43 Dose: 40 mg Documented by: Glucagon (Glucagon 1 Mg/Ml Syringe) 1 mg IM .X1 PRN PRN Reason: Hypoglycemia Vancomycin IV Pharmacy to Dose (1 ea/ Sodium Chloride) 500 mls @ 250 mls/hr IV X1 PRN; Protocol PRN Reason: Rx to Dose Vancomycin HCl 1,500 mg/ (Sodium Chloride) 530 mls @ 250 mls/hr IV Q12H [facility] Last Infusion: 08/14/20 23:15 Dose: Infused Documented by: Sodium Chloride () 250 mls @ 15 mls/hr IV .[id number] PRN PRN Reason: Additional IVPB Infusion Insulin Glargine (Insulin Glargine 100 Units/Ml Pen) 15 units SC QPM [facility] Last Admin: 08/14/20 22:47 Dose: 15 units Documented by: Insulin Glargine (Insulin Glargine 100 Units/Ml Pen) 10 units SC BREAKFAST [facility] Last Admin: 08/14/20 09:45 Dose: 10 units Documented by: Insulin Human Lispro (Insulin Lispro 100 Unit/Ml Insuln.Pen) 0 unit SC ACHS [facility]; Protocol Last Admin: 08/15/20 07:02 Dose: Not Given Documented by: Levothyroxine Sodium (Levothyroxine 100 Mcg Tablet) 200 mcg PO DAILY@0600 [facility] Last Admin: 08/15/20 06:12 Dose: 200 mcg Documented by: Lisinopril (Lisinopril 2.5 Mg Tablet) 2.5 mg PO DAILY [facility] Last Admin: 08/14/20 09:43 Dose: 2.5 mg Documented by: Metoprolol Succinate (Metoprolol(Xl)Succ 50 Mg Tablet) 50 mg PO DAILY [facility] Last Admin: 08/14/20 09:43 Dose: 50 mg Documented by: Nitroglycerin (Nitroglycerin (Inpatient Use) 0.4 Mg Tab.Subl) 0.4 mg SUBLINGUAL Q5M PRN PRN Reason: CARDIAC/CHEST PAIN Nutritional Formula (Lactose Free) (Glucerna Shake 120 Ml Liquid) 120 ml PO TIDCM [facility] Last Admin: 08/14/20 17:26 Dose: Not Given Documented by: Ondansetron HCl (Ondansetron 4 Mg/2 Ml Vial) 4 mg IV Q8H PRN PRN PRN Reason: NAUSEA/VOMITING Oxycodone HCl (Oxycodone 5 Mg Tablet) 5 mg PO Q4H PRN PRN PRN Reason: Pain Score 1-10 Last Admin: 08/14/20 22:47 Dose: 5 mg Documented by: Pantoprazole Sodium (Pantoprazole Sodium 40 Mg Tablet) 40 mg PO DAILY [facility] Last Admin: 08/14/20 09:43 Dose: 40 mg Documented by: Polyethylene Glycol (Polyethylene Glycol 3350 17 Gm Packet) 17 gm PO DAILY [facility] Last Admin: 08/14/20 11:30 Dose: 17 gm Documented by: Pravastatin Sodium (Pravastatin 40 Mg Tablet) 40 mg PO QHS [facility] Last Admin: 08/14/20 22:47 Dose: 40 mg Documented by: Prednisone (Pred[facility] 5 Mg Tablet) [facility] Last Admin: 08/14/20 09:42 Dose: 2.5 mg Documented by: Sodium Chloride (0.9% Saline Lock 10 Ml Syringe) 10 - 40 ml IV UD PRN PRN Reason: SALINE FLUSH Last Admin: 08/14/20 09:49 Dose: 10 ml Documented by: Medical Necessity - Tobacco Use Smoking Status: Former smoker Assessment/Plan All Active Problems (Last Reviewed 08/03/20 @ 13:04 by Elsie Wagner) Ulcer of left lower extremity with fat layer exposed (Resolved) Elevated lactic acid level (Acute) Intractable vomiting with nausea (Acute) Elevated bilirubin (Acute) Hyperglycemia due to diabetes mellitus (Acute) Cellulitis of right lower limb (Acute) Peripheral vascular disease (Acute) Decubitus ulcer of foot, stage 3 (Acute) Infected ulcer of skin (Acute) Dyspnea (Acute) Open wound of knee, leg, and ankle, complicated (Resolved) Surgical wound dehiscence (Resolved) 1. Severe sepsis secondary to right foot ulceration with cellulitis with suspected osteomyelitis-podiatry consulted. Blood and wound cultures pending. Previous MRSA wound cultures. Continue IV vancomycin. X-ray demonstrates osteomyelitis of the stump of the fifth metatarsal and possibly stump of fourth metatarsal. ID consulted. Cleared by cardiology for OR. Underwent revisional right foot transmetatarsal amputation with excision of fourth and fifth metatarsals and I&D of right foot 08/15/[address] Shah. PT/OT. Follow cultures. 2. Ischemic cardiomyopathy/chronic heart failure with reduced ejection fraction- status post ICD. Patient states he is due for battery replacement however cardiology will not move forward with this while he has an active infection. Recent echocardiogram 07/22/2020 demonstrated an EF of 20%. Continue home Bumex regimen. 3. 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 Accu-Cheks with sliding scale insulin. Continue long-acting regimen. Recent hemoglobin A1c 06/15/20 6.8%. 4. 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 Continue supplement oxygen to maintain O2 at above 90%. 5. CAD with history of stents-on aspirin, Plavix, statin, metoprolol, lisinopril. 6. Hypothyroidism-continue Synthroid regimen. 7. Chronic macrocytic anemia-at baseline, trend CBC. DVT prophylaxis-Lovenox subcu This patient was seen by SHIMA Gonzalez under the supervision of Dr. Brunson. <Héctor Brunson - Last Filed: 08/15/20 11:00> - Physical Exam Vitals/I&O's: Vital Signs Temp Pulse Resp BP Pulse Ox 98.1 F 75 16 106/58 L 100 08/15/20 10:00 08/15/20 10:00 08/15/20 10:00 08/15/20 10:00 08/15/20 10:00 Oxygen Flow Rate (L/min) 2 Oxygen Delivery Method Nasal Cannula Weight: 91.1 kg Body Mass Index (BMI) 27.2 Finger Stick Blood Glucose 318 Intake and Output for Last 24 Hours 08/13/20 08/14/20 08/15/20 23:59 23:59 23:59 Intake Total 275 / 275 5330 / 5330 0 / 0 Balance 275 / 275 5330 / 5330 0 / 0 Microbiology Past 72 Hours 08/13/20 20:40 Urine, Clean Catch Urine Culture - Preliminary Culture exhibits no growth. 08/13/20 20:45 Mucosa - Nose SARS-CoV-2 Antigen (Rapid) - Final Laboratory Results 08/14/20 11:22: POC Glucose 281 H 08/14/20 17:27: POC Glucose 267 H 08/14/20 22:24: POC Glucose 283 H 08/15/20 05:15: WBC 13.8 H, RBC 3.09 L, Hgb 9.4 L, Hct 31.1 L, MCV 100.6 H, MCH 30.4, MCHC 30.2 L, RDW Std Deviation 52.4 H, RDW Coeff of Jac 14.6, Plt Count 229, MPV 9.3 08/15/20 05:15: Sodium 136, Potassium 3.9, Chloride 101, Carbon Dioxide 30.0, Anion Gap 5, BUN 29 H, Creatinine 1.09, Estim Creat Clear Calc 66.25, Est GFR (MDRD) Af Amer 85, Est GFR (MDRD) Non-Af 70, BUN/Creatinine Ratio 26.6 H, Glucose 173 H, Calcium 8.1 L 08/15/20 06:56: POC Glucose 168 H 08/15/20 10:35: Vancomycin Trough Pending Current Medications Acetaminophen (Acetaminophen 500 Mg Tablet) 1,000 mg PO TID PRN PRN PRN Reason: PAIN 1-10 OR TEMP Last Admin: 08/14/20 11:31 Dose: 1,000 mg Documented by: Aspirin (Aspirin E.C. 81 Mg Tablet) 81 mg PO DAILY [facility] Last Admin: 08/14/20 09:42 Dose: 81 mg Documented by: Bumetanide (Bumetanide 2 Mg Tablet) 2 mg PO DAILY [facility] Last Admin: 08/14/20 09:42 Dose: 2 mg Documented by: Clopidogrel Bisulfate (Clopidogrel Bisulfate 75 Mg Tablet) 75 mg PO DAILY [facility] Last Admin: 08/14/20 09:43 Dose: 75 mg Documented by: Dextrose (Dextrose 50%-Water 25 Gm/50 Ml Disp.Syrin) 0 gm IV X1 PRN; Protocol PRN Reason: Hypoglycemia Docusate Sodium (Docusate Sodium 100 Mg Capsule) 200 mg PO BID PRN PRN PRN Reason: Constipation Enoxaparin Sodium (Enoxaparin 40 Mg/0.4 Ml Syringe) 40 mg SC DAILY [facility] Last Admin: 08/14/20 09:43 Dose: 40 mg Documented by: Glucagon (Glucagon 1 Mg/Ml Syringe) 1 mg IM .X1 PRN PRN Reason: Hypoglycemia Vancomycin IV Pharmacy to Dose (1 ea/ Sodium Chloride) 500 mls @ 250 mls/hr IV X1 PRN; Protocol PRN Reason: Rx to Dose Vancomycin HCl 1,500 mg/ (Sodium Chloride) 530 mls @ 250 mls/hr IV Q12H [facility] Last Infusion: 08/14/20 23:15 Dose: Infused Documented by: Sodium Chloride () 250 mls @ 15 mls/hr IV .[id number] PRN PRN Reason: Additional IVPB Infusion Insulin Glargine (Insulin Glargine 100 Units/Ml Pen) 15 units SC QPM [facility] Last Admin: 08/14/20 22:47 Dose: 15 units Documented by: Insulin Glargine (Insulin Glargine 100 Units/Ml Pen) 10 units SC BREAKFAST [facility] Last Admin: 08/14/20 09:45 Dose: 10 units Documented by: Insulin Human Lispro (Insulin Lispro 100 Unit/Ml Insuln.Pen) 0 unit SC ACHS [facility]; Protocol Last Admin: 08/15/20 07:02 Dose: Not Given Documented by: Levothyroxine Sodium (Levothyroxine 100 Mcg Tablet) 200 mcg PO DAILY@0600 [facility] Last Admin: 08/15/20 06:12 Dose: 200 mcg Documented by: Lisinopril (Lisinopril 2.5 Mg Tablet) 2.5 mg PO DAILY [facility] Last Admin: 08/14/20 09:43 Dose: 2.5 mg Documented by: Metoprolol Succinate (Metoprolol(Xl)Succ 50 Mg Tablet) 50 mg PO DAILY [facility] Last Admin: 08/14/20 09:43 Dose: 50 mg Documented by: Nitroglycerin (Nitroglycerin (Inpatient Use) 0.4 Mg Tab.Subl) 0.4 mg SUBLINGUAL Q5M PRN PRN Reason: CARDIAC/CHEST PAIN Nutritional Formula (Lactose Free) (Glucerna Shake 120 Ml Liquid) 120 ml PO TIDCM [facility] Last Admin: 08/14/20 17:26 Dose: Not Given Documented by: Ondansetron HCl (Ondansetron 4 Mg/2 Ml Vial) 4 mg IV Q8H PRN PRN PRN Reason: NAUSEA/VOMITING Oxycodone HCl (Oxycodone 5 Mg Tablet) 5 mg PO Q4H PRN PRN PRN Reason: Pain Score 1-10 Last Admin: 08/14/20 22:47 Dose: 5 mg Documented by: Pantoprazole Sodium (Pantoprazole Sodium 40 Mg Tablet) 40 mg PO DAILY [facility] Last Admin: 08/14/20 09:43 Dose: 40 mg Documented by: Polyethylene Glycol (Polyethylene Glycol 3350 17 Gm Packet) 17 gm PO DAILY [facility] Last Admin: 08/14/20 11:30 Dose: 17 gm Documented by: Pravastatin Sodium (Pravastatin 40 Mg Tablet) 40 mg PO QHS [facility] Last Admin: 08/14/20 22:47 Dose: 40 mg Documented by: Prednisone (Prednisone 5 Mg Tablet) 2.5 mg PO DAILYCM [facility] Last Admin: 08/14/20 09:42 Dose: 2.5 mg Documented by: Sodium Chloride (0.9% Saline Lock 10 Ml Syringe) 10 - 40 ml IV UD PRN PRN Reason: SALINE FLUSH Last Admin: 08/14/20 09:49 Dose: 10 ml Documented by: Assessment/Plan This patient was seen in conjunction with SHIMA Gonzalez . I have independently interviewed and examined the patient and reviewed pertinent historical, laboratory, and other data. Please refer to SHIMA Gonzalez note for details of this patient's presentation, findings, and recommendations. I have reviewed SHIMA Gonzalez note and concur with documented findings. In brief, patient is a 74-year-old gentleman with multiple comorbidities including diabetic foot ulcer presented with right foot ulceration and cellulitis with suspected osteomyelitis. Antibiotics started per protocol patient admitted to monitored bed with consultation placed to podiatry and infectious disease 08/15/2020; patient underwent Revisional right foot transmetatarsal amputation with excision of fourth and fifth metatarsals, incision and drainage right foot Physical Examination: GENERAL: cooperative HEENT: Atraumatic; EYES; Anicteric, Normal Conjunctiva NECK; supple, normal thyroid, RESPIRATORY: Diminished to auscultation CARDIOVASCULAR: Regular S1 S2, GI: soft, normoactive bowel sounds, : No Renal angle tenderness; EXTREMITIES: Left BKA right foot with stump ulceration and redness MUSCULOSKELETAL: no muscle waisting NEURO: Awake; no lateralizing signs. SKIN: As described above PSYCH; Flat affect Assessment: . Severe sepsis 2. Diabetic foot ulcer (right foot ulcer with cellulitis and suspected osteomy elitis 3. Diabetes mellitus type 2 4. Coronary artery disease previous PCI with stent placement 5. Ischemic cardiomyopathy status post AICD placement 6. Anemia of chronic disorder 7. Hypothyroidism 8. Chronic congestive heart failure with reduced ejection fraction EF 20% 9. DVT prophylaxis Recommendations: 1. I have discussed the results of my overview and impressions with the patient 2. Options for management were reviewed Inpatient E&M: [id number] [facility] H[facility] L3
[2020-08-15 11:43] LABS: Vancomycin, Trough Level 23.2 ug/mL (5.0-15.0)
[2020-08-15] MEDS: Glucerna Shake 120 ML LIQUID PO ×2 (11:56→17:49)
[2020-08-15] MEDS: predniSONE 5 MG Tablet 2.5 MG PO (12:13)
[2020-08-15] MEDS: Bumetanide 2 MG Tablet PO (12:14)
[2020-08-15] MEDS: Aspirin E.C. 81 MG Tablet PO (12:14)
[2020-08-15] MEDS: Polyethylene Glycol 3350 17 GM PACKET PO (12:14)
[2020-08-15] MEDS: Clopidogrel Bisulfate 75 MG Tablet PO (12:15)
[2020-08-15] MEDS: Metoprolol(XL)Succ 50 MG Tablet PO (12:15)
[2020-08-15] MEDS: Lisinopril 2.5 MG Tablet PO (12:15)
[2020-08-15] MEDS: Pantoprazole Sodium 40 MG Tablet PO (12:15)
--- NOTE | 2020-08-15 12:19 | PCM.RX.CS ---
Consult Pharmacy has been consulted to manage selected antiobiotic: Vancomycin Type of Consult: Follow-up Suspected Infection: Sepsis, Osteomyelitis Prior Doses of Antibiotics Received/Current Regimen: current dose is 1500mg q12h Labs: Sodium 136 mmol/L (136-145) 08/15/20 05:15 Potassium 3.9 mmol/L (3.5-5.1) 08/15/20 05:15 Chloride 101 mmol/L (98-107) 08/15/20 05:15 Carbon Dioxide 30.0 mmol/L (21.0-32.0) 08/15/20 05:15 Anion Gap 5 (5-15) 08/15/20 05:15 BUN 29 mg/dL (7-18) H 08/15/20 05:15 Creatinine 1.09 mg/dL (0.70-1.30) 08/15/20 05:15 Est GFR (MDRD) Af Amer 85 mL/min (>60) 08/15/20 05:15 Est GFR (MDRD) Non-Af 70 mL/min (>60) 08/15/20 05:15 BUN/Creatinine Ratio 26.6 RATIO (10-20) H 08/15/20 05:15 Glucose 173 mg/dL (74-106) H 08/15/20 05:15 Vancomycin Trough 23.2 ug/mL (5.0-15.0) H 08/15/20 10:35 Microbiology: Microbiology 08/13/20 20:40 Urine, Clean Catch Urine Culture - Preliminary Culture exhibits no growth. 08/13/20 20:45 Mucosa - Nose SARS-CoV-2 Antigen (Rapid) - Final Weight used for dosin.1 kg Estimated Creatinine Clearance: 66 ml/min Goal Trough: 15-20 mcg/mL Pharmacy Plan for Drug Dosing: The vancomycin trough drawn this morning (14 hrs after the previous dose) came back as 23.2. It was drawn a couple hours late due to the patient being down in surgery but it was still high. This morning's dose then was not given yet so we will hold dosing for now and order a vanc random level to be drawn tonight approximately 12 hours after this morning's trough. That random level will determine if we can resume dosing at a different dose at that time. Of note is that the patient's SCr did rise to 1.09 today after it had lowered to 0.85 yesterday. Pharmacy Service will continue to monitor and adjust dosing as required. Follow-Up Labs: Trough Vancomycin - random Labs to be done on [date and time ordered]: 08/15/20 22:00
[2020-08-15 14:41] LABS: Bedside Glucose 149 mg/dL (70-110)
[2020-08-15] MEDS: Insulin Lispro 100 UNIT/ML INSULN.PEN SC ×2 (17:46→20:53)
[2020-08-15] MEDS: oxyCODONE 5 MG Tablet PO ×2 (17:49→23:51)
[2020-08-15 18:16] LABS: Bedside Glucose 321 mg/dL (70-110)
[2020-08-15] MEDS: Pravastatin 40 MG Tablet PO (20:54)
[2020-08-15 22:51] LABS: Vancomycin, Random Level 17.3 ug/mL (0.0-15.0)
[2020-08-15 23:06] LABS: Bedside Glucose 275 mg/dL (70-110)
--- NOTE | 2020-08-15 23:30 | PCM.RX.CS ---
Consult Pharmacy has been consulted to manage selected antiobiotic: Vancomycin Type of Consult: Follow-up Suspected Infection: Sepsis Labs: Sodium 136 mmol/L (136-145) 08/15/20 05:15 Potassium 3.9 mmol/L (3.5-5.1) 08/15/20 05:15 Chloride 101 mmol/L (98-107) 08/15/20 05:15 Carbon Dioxide 30.0 mmol/L (21.0-32.0) 08/15/20 05:15 Anion Gap 5 (5-15) 08/15/20 05:15 BUN 29 mg/dL (7-18) H 08/15/20 05:15 Creatinine 1.09 mg/dL (0.70-1.30) 08/15/20 05:15 Est GFR (MDRD) Af Amer 85 mL/min (>60) 08/15/20 05:15 Est GFR (MDRD) Non-Af 70 mL/min (>60) 08/15/20 05:15 BUN/Creatinine Ratio 26.6 RATIO (10-20) H 08/15/20 05:15 Glucose 173 mg/dL (74-106) H 08/15/20 05:15 Vancomycin Trough 23.2 ug/mL (5.0-15.0) H 08/15/20 10:35 Random Vancomycin 17.3 ug/mL (0.0-15.0) H 08/15/20 21:43 Microbiology: Microbiology 08/13/20 20:40 Urine, Clean Catch Urine Culture - Preliminary Culture exhibits no growth. 08/13/20 20:45 Mucosa - Nose SARS-CoV-2 Antigen (Rapid) - Final Goal Trough: 15-20 mcg/mL Pharmacy Plan for Drug Dosing: Pharmacy Service will continue to monitor and adjust dosing as required. RANDOM LEVEL 17.3 RESTART AT 1000MG Q12H Follow-Up Labs: Trough Vancomycin Labs to be done on [date and time ordered]: 08/17 @ 1100
[2020-08-15] MEDS: Vancomycin IV 1,000 MG/200 ML BAG 200 MG IV (23:51)
[2020-08-16] VITALS (10 sets, daily range): BP systolic 92–97; BP diastolic 52–57; PULSE 75–108; RESP 14–16; TEMP 36.5–36.8; O2SAT 92–99
[2020-08-16] MEDS: oxyCODONE 5 MG Tablet PO ×2 (03:52→10:07)
[2020-08-16 06:00] LABS: Hemoglobin 8.5 g/dL (13.0-16.5); Mean Corp Hgb Conc 30.4 g/dL (32-36); Mean Corpuscular Hgb 30.4 pg (27.0-32.0); Mean Platelet Vol. 9.2 fl (6.2-12.0); Platelet Count 231 K/mm3 (150-450); RBC Distribution Width CV 14.6 % (11.6-14.6); RBC Distribution Width SD 52.7 fl (35.1-43.9); White Blood Count 10.9 K/mm3 (4.4-11.0)
[2020-08-16] MEDS: Levothyroxine 100 MCG Tablet 200 MCG PO (06:21)
[2020-08-16 06:31] LABS: Bedside Glucose 197 mg/dL (70-110)
[2020-08-16 06:39] LABS: Anion Gap 5 (5-15); BUN 27 mg/dL (7-18); BUN/Creat Ratio 27.3 RATIO (10-20); Calcium,Total 8.2 mg/dL (8.5-10.1); Chloride 99 mmol/L (98-107); Creatinine, Serum 0.99 mg/dL (0.70-1.30); EST Glomerular Filtration Rate 79 mL/min (>60); Est Glom Filt Rate - Afr Amer 95 mL/min (>60); Estimated Creatinine Clearance 72.94 ml/min; Glucose 187 mg/dL (74-106); Sodium Level 134 mmol/L (136-145)
[2020-08-16] MEDS: Glucerna Shake 120 ML LIQUID PO ×3 (09:53→16:39)
[2020-08-16] MEDS: Clopidogrel Bisulfate 75 MG Tablet PO (09:54)
[2020-08-16] MEDS: Polyethylene Glycol 3350 17 GM PACKET PO (09:54)
[2020-08-16] MEDS: Bumetanide 2 MG Tablet PO (09:54)
[2020-08-16] MEDS: Pantoprazole Sodium 40 MG Tablet PO (09:54)
[2020-08-16] MEDS: Enoxaparin 40 MG/0.4 ML Syringe SC (09:54)
[2020-08-16] MEDS: Aspirin E.C. 81 MG Tablet PO (09:55)
[2020-08-16] MEDS: predniSONE 5 MG Tablet 2.5 MG PO (09:55)
[2020-08-16] MEDS: Metoprolol(XL)Succ 50 MG Tablet PO (09:58)
[2020-08-16] MEDS: Acetaminophen 500 MG Tablet 1000 MG PO (10:07)
--- NOTE | 2020-08-16 12:56 | PN_ITS ---
<Elsie Jacob [employer]ITY SYSTEMS [employer]ER - Last Filed: 08/16/20 13:15> Patient Problems: Active and Suspected Problems (Last Reviewed 08/03/20 @ 13:04 by Elsie Wagner) Osteomyelitis of right foot (Acute) Subjective: Patient seen and examined. Reports right lower extremity pain. Denies fever, chills. States he prefers to return home at discharge but is amenable to rehab if this is recommended. - Physical Exam Vitals/I&O's: Vital Signs Temp Pulse Resp BP Pulse Ox 98.3 F 76 15 97/52 L 99 08/16/20 09:48 08/16/20 09:58 08/16/20 09:48 08/16/20 09:58 08/16/20 09:48 Oxygen Flow Rate (L/min) 2 Oxygen Delivery Method Nasal Cannula Weight: 200 lb 13.458 oz Body Mass Index (BMI) 27.2 Finger Stick Blood Glucose 318 Intake and Output for Last 24 Hours 08/14/20 08/15/20 08/16/20 23:59 23:59 23:59 Intake Total 5330 / 5330 480 / 530 350 / 350 Output Total 700 / 700 Balance 5330 / 5330 -220 / -170 350 / 350 General: Alert, Oriented x3, Cooperative HEENT: Atraumatic, PERRLA, EOMI, Normocephalic Neck: Supple, No JVD, Negative Carotid Bruits Lungs: Clear to auscultation, Normal air movement Cardiovascular: Regular rate, No murmurs Abdomen: Bowel Sounds Present, Soft, Non Tender, Non-Distended Extremities: No clubbing, No cyanosis, No edema, Capillary Refill Less than 3 Seconds, - - Left BKA Skin: No rashes, No breakdown, - - Right foot postop dressing intact Musculoskeletal: No Tenderness to Palpation of Joints or Extremities Neurological: Cranial nerves II-XII grossly intact, Neuro grossly intact Psych/Mental Status: Normal Affect, Appropriate Microbiology Past 72 Hours 08/15/20 Unknown Wound - Right Foot Gram Stain - Final 08/15/20 Unknown Wound - Right Foot Wound Culture - Preliminary Staphylococcus aureus 08/15/20 Unknown Bone - Right Foot Gram Stain - Final 08/15/20 Unknown Bone - Right Foot Wound Culture - Preliminary Staphylococcus aureus 08/15/20 Unknown Bone - Right Foot Gram Stain - Final 08/15/20 Unknown Bone - Right Foot Wound Culture - Preliminary Staphylococcus aureus 08/13/20 20:40 Urine, Clean Catch Urine Culture - Final Culture exhibits no growth. 08/13/20 20:45 Mucosa - Nose SARS-CoV-2 Antigen (Rapid) - Final Laboratory Results 08/15/20 11:48: POC Glucose 149 H 08/15/20 17:43: POC Glucose 321 H 08/15/20 20:31: POC Glucose 275 H 08/15/20 21:43: Random Vancomycin 17.3 H 08/16/20 05:26: WBC 10.9, RBC 2.80 L, Hgb 8.5 L, Hct 28.0 L, MCV 100.0 H, MCH 30.4, MCHC 30.4 L, RDW Std Deviation 52.7 H, RDW Coeff of Jac 14.6, Plt Count 231, MPV 9.2 08/16/20 05:26: Sodium 134 L, Potassium 4.0, Chloride 99, Carbon Dioxide 30.0, Anion Gap 5, BUN 27 H, Creatinine 0.99, Estim Creat Clear Calc 72.94, Est GFR (MDRD) Af Amer 95, Est GFR (MDRD) Non-Af 79, BUN/Creatinine Ratio 27.3 H, Glucose 187 H, Calcium 8.2 L 08/16/20 06:19: POC Glucose 197 H Current Medications Acetaminophen (Acetaminophen 500 Mg Tablet) 1,000 mg PO TID PRN PRN PRN Reason: PAIN 1-10 OR TEMP Last Admin: 08/16/20 10:07 Dose: 1,000 mg Documented by: Aspirin (Aspirin E.C. 81 Mg Tablet) 81 mg PO DAILY [facility] Last Admin: 08/16/20 09:55 Dose: 81 mg Documented by: Bumetanide (Bumetanide 2 Mg Tablet) 2 mg PO DAILY [facility] Last Admin: 08/16/20 09:54 Dose: 2 mg Documented by: Clopidogrel Bisulfate (Clopidogrel Bisulfate 75 Mg Tablet) 75 mg PO DAILY [facility] Last Admin: 08/16/20 09:54 Dose: 75 mg Documented by: Dextrose (Dextrose 50%-Water 25 Gm/50 Ml Disp.Syrin) 0 gm IV X1 PRN; Protocol PRN Reason: Hypoglycemia Docusate Sodium (Docusate Sodium 100 Mg Capsule) 200 mg PO BID PRN PRN PRN Reason: Constipation Enoxaparin Sodium (Enoxaparin 40 Mg/0.4 Ml Syringe) 40 mg SC DAILY [facility] Last Admin: 08/16/20 09:54 Dose: 40 mg Documented by: Glucagon (Glucagon 1 Mg/Ml Syringe) 1 mg IM .X1 PRN PRN Reason: Hypoglycemia Vancomycin IV Pharmacy to Dose (1 ea/ Sodium Chloride) 500 mls @ 250 mls/hr IV X1 PRN; Protocol PRN Reason: Rx to Dose Sodium Chloride () 250 mls @ 15 mls/hr IV .[id number] PRN PRN Reason: Additional IVPB Infusion Vancomycin HCl (Vancomycin) 1,000 mg in 200 mls @ 200 mls/hr IV Q12H [facility] Last Infusion: 08/16/20 01:13 Dose: Infused Documented by: Insulin Glargine (Insulin Glargine 100 Units/Ml Pen) 15 units SC QPM [facility] Last Admin: 08/15/20 20:53 Dose: 15 units Documented by: Insulin Glargine (Insulin Glargine 100 Units/Ml Pen) 10 units SC BREAKFAST [facility] Last Admin: 08/16/20 09:57 Dose: 10 units Documented by: Insulin Human Lispro (Insulin Lispro 100 Unit/Ml Insuln.Pen) 0 unit SC ACHS [facility]; Protocol Last Admin: 08/16/20 09:52 Dose: Not Given Documented by: Levothyroxine Sodium (Levothyroxine 100 Mcg Tablet) 200 mcg PO DAILY@0600 [facility] Last Admin: 08/16/20 06:21 Dose: 200 mcg Documented by: Lisinopril (Lisinopril 2.5 Mg Tablet) 2.5 mg PO DAILY [facility] Last Admin: 08/16/20 09:59 Dose: Not Given Documented by: Metoprolol Succinate (Metoprolol(Xl)Succ 50 Mg Tablet) 50 mg PO DAILY [facility] Last Admin: 08/16/20 09:58 Dose: 50 mg Documented by: Nitroglycerin (Nitroglycerin (Inpatient Use) 0.4 Mg Tab.Subl) 0.4 mg SUBLINGUAL Q5M PRN PRN Reason: CARDIAC/CHEST PAIN Nutritional Formula (Lactose Free) (Glucerna Shake 120 Ml Liquid) 120 ml PO TIDCM [facility] Last Admin: 08/16/20 09:53 Dose: 120 ml Documented by: Ondansetron HCl (Ondansetron 4 Mg/2 Ml Vial) 4 mg IV Q8H PRN PRN PRN Reason: NAUSEA/VOMITING Oxycodone HCl (Oxycodone 5 Mg Tablet) 5 mg PO Q4H PRN PRN PRN Reason: Pain Score 1-10 Last Admin: 08/16/20 10:07 Dose: 5 mg Documented by: Pantoprazole Sodium (Pantoprazole Sodium 40 Mg Tablet) 40 mg PO DAILY [facility] Last Admin: 08/16/20 09:54 Dose: 40 mg Documented by: Polyethylene Glycol (Polyethylene Glycol 3350 17 Gm Packet) 17 gm PO DAILY [facility] Last Admin: 08/16/20 09:54 Dose: 17 gm Documented by: Pravastatin Sodium (Pravastatin 40 Mg Tablet) 40 mg PO QHS [facility] Last Admin: 08/15/20 20:54 Dose: 40 mg Documented by: Prednisone ([facility] Mg [facility] Last Admin: 08/16/20 09:55 Dose: 2.5 mg Documented by: Sodium Chloride (0.9% Saline Lock 10 Ml Syringe) 10 - 40 ml IV UD PRN PRN Reason: SALINE FLUSH Last Admin: 08/14/20 09:49 Dose: 10 ml Documented by: Medical Necessity - Tobacco Use Smoking Status: Former smoker Assessment/Plan All Active Problems (Last Reviewed 08/03/20 @ 13:04 by Elsie Wagner) Osteomyelitis of right foot (Acute) 1. Severe sepsis secondary to right foot ulceration with cellulitis with suspected osteomyelitis-podiatry consulted. Blood culture shows no growth so far. Wound culture is growing a staph aureus. Previous MRSA wound cultures. Continue IV vancomycin. X-ray demonstrates osteomyelitis of the stump of the fifth metatarsal and possibly stump of fourth metatarsal. Underwent revisional right foot transmetatarsal amputation with excision of fourth and fifth metatarsals and I&D of right foot 08/15/[address] Shah. PT/OT. Follow cultures. ID consulted. Anticipate need for IV antibiotics at discharge. 2. Ischemic cardiomyopathy/chronic heart failure with reduced ejection fraction- status post ICD. Patient states he is due for battery replacement however cardiology will not move forward with this while he has an active infection. R ecent echocardiogram 07/22/2020 demonstrated an EF of 20%. Continue home Bumex regimen. 3. 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 Accu-Cheks with sliding scale insulin. Continue long-acting regimen. Recent hemoglobin A1c 06/15/20 6.8%. 4. 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 Continue supplement oxygen to maintain O2 at above 90%. 5. CAD with history of stents-on aspirin, Plavix, statin, metoprolol, lisinopril. 6. Hypothyroidism-continue Synthroid regimen. 7. Chronic macrocytic anemia-at baseline, trend CBC. DVT prophylaxis-Lovenox subcu This patient was seen by SHIMA Gonzalez under the supervision of Dr. Morin. <Eda Morin E - Last Filed: 08/16/20 13:55> - Physical Exam Vitals/I&O's: Vital Signs Temp Pulse Resp BP Pulse Ox 98.3 F 108 H 15 97/52 L 99 08/16/20 09:48 08/16/20 11:56 08/16/20 09:48 08/16/20 09:58 08/16/20 09:48 Oxygen Flow Rate (L/min) 2 Oxygen Delivery Method Nasal Cannula Weight: 200 lb 13.458 oz Body Mass Index (BMI) 27.2 Finger Stick Blood Glucose 318 Intake and Output for Last 24 Hours 08/14/20 08/15/20 08/16/20 23:59 23:59 23:59 Intake Total 5330 / 5330 480 / 530 670 / 670 Output Total 700 / 700 Balance 5330 / 5330 -220 / -170 670 / 670 Microbiology Past 72 Hours 08/13/20 20:13 Blood Culture (Wb) - Anticubital Left Blood Culture - Preliminary No growth in 48 hours. 08/13/20 20:23 Blood Culture (Wb) - Venous Blood Culture - Preliminary No growth in 48 hours. 08/15/20 Unknown Wound - Right Foot Gram Stain - Final 08/15/20 Unknown Wound - Right Foot Wound Culture - Preliminary Staphylococcus aureus 08/15/20 Unknown Bone - Right Foot Gram Stain - Final 08/15/20 Unknown Bone - Right Foot Wound Culture - Preliminary Staphylococcus aureus 08/15/20 Unknown Bone - Right Foot Gram Stain - Final 08/15/20 Unknown Bone - Right Foot Wound Culture - Preliminary Staphylococcus aureus 08/13/20 20:40 Urine, Clean Catch Urine Culture - Final Culture exhibits no growth. 08/13/20 20:45 Mucosa - Nose SARS-CoV-2 Antigen (Rapid) - Final Laboratory Results 08/15/20 11:48: POC Glucose 149 H 08/15/20 17:43: POC Glucose 321 H 08/15/20 20:31: POC Glucose 275 H 08/15/20 21:43: Random Vancomycin 17.3 H 08/16/20 05:26: WBC 10.9, RBC 2.80 L, Hgb 8.5 L, Hct 28.0 L, MCV 100.0 H, MCH 30.4, MCHC 30.4 L, RDW Std Deviation 52.7 H, RDW Coeff of Jac 14.6, Plt Count 231, MPV 9.2 08/16/20 05:26: Sodium 134 L, Potassium 4.0, Chloride 99, Carbon Dioxide 30.0, Anion Gap 5, BUN 27 H, Creatinine 0.99, Estim Creat Clear Calc 72.94, Est GFR (MDRD) Af Amer 95, Est GFR (MDRD) Non-Af 79, BUN/Creatinine Ratio 27.3 H, Glucose 187 H, Calcium 8.2 L 08/16/20 06:19: POC Glucose 197 H 08/16/20 13:12: POC Glucose 272 H Current Medications Acetaminophen (Acetaminophen 500 Mg Tablet) 1,000 mg PO TID PRN PRN PRN Reason: PAIN 1-10 OR TEMP Last Admin: 08/16/20 10:07 Dose: 1,000 mg Documented by: Aspirin (Aspirin E.C. 81 Mg Tablet) 81 mg PO DAILY [facility] Last Admin: 08/16/20 09:55 Dose: 81 mg Documented by: Bumetanide (Bumetanide 2 Mg Tablet) 2 mg PO DAILY [facility] Last Admin: 08/16/20 09:54 Dose: 2 mg Documented by: Clopidogrel Bisulfate (Clopidogrel Bisulfate 75 Mg Tablet) 75 mg PO DAILY [facility] Last Admin: 08/16/20 09:54 Dose: 75 mg Documented by: Dextrose (Dextrose 50%-Water 25 Gm/50 Ml Disp.Syrin) 0 gm IV X1 PRN; Protocol PRN Reason: Hypoglycemia Docusate Sodium (Docusate Sodium 100 Mg Capsule) 200 mg PO BID PRN PRN PRN Reason: Constipation Enoxaparin Sodium (Enoxaparin 40 Mg/0.4 Ml Syringe) 40 mg SC DAILY [facility] Last Admin: 08/16/20 09:54 Dose: 40 mg Documented by: Glucagon (Glucagon 1 Mg/Ml Syringe) 1 mg IM .X1 PRN PRN Reason: Hypoglycemia Vancomycin IV Pharmacy to Dose (1 ea/ Sodium Chloride) 500 mls @ 250 mls/hr IV X1 PRN; Protocol PRN Reason: Rx to Dose Sodium Chloride () 250 mls @ 15 mls/hr IV .[id number] PRN PRN Reason: Additional IVPB Infusion Vancomycin HCl (Vancomycin) 1,000 mg in 200 mls @ 200 mls/hr IV Q12H [facility] Last Admin: 08/16/20 13:16 Dose: 200 mls/hr Documented by: Insulin Glargine (Insulin Glargine 100 Units/Ml Pen) 15 units SC QPM [facility] Last Admin: 08/15/20 20:53 Dose: 15 units Documented by: Insulin Glargine (Insulin Glargine 100 Units/Ml Pen) 10 units SC BREAKFAST [facility] Last Admin: 08/16/20 09:57 Dose: 10 units Documented by: Insulin Human Lispro (Insulin Lispro 100 Unit/Ml Insuln.Pen) 0 unit SC ACHS [facility]; Protocol Last Admin: 08/16/20 13:15 Dose: 6 u Documented by: Levothyroxine Sodium (Levothyroxine 100 Mcg Tablet) 200 mcg PO DAILY@0600 [facility] Last Admin: 08/16/20 06:21 Dose: 200 mcg Documented by: Lisinopril (Lisinopril 2.5 Mg Tablet) 2.5 mg PO DAILY [facility] Last Admin: 08/16/20 09:59 Dose: Not Given Documented by: Metoprolol Succinate (Metoprolol(Xl)Succ 50 Mg Tablet) 50 mg PO DAILY [facility] Last Admin: 08/16/20 09:58 Dose: 50 mg Documented by: Nitroglycerin (Nitroglycerin (Inpatient Use) 0.4 Mg Tab.Subl) 0.4 mg SUBLINGUAL Q5M PRN PRN Reason: CARDIAC/CHEST PAIN Nutritional Formula (Lactose Free) (Glucerna Shake 120 Ml Liquid) 120 ml PO TIDCM [facility] Last Admin: 08/16/20 13:16 Dose: 120 ml Documented by: Ondansetron HCl (Ondansetron 4 Mg/2 Ml Vial) 4 mg IV Q8H PRN PRN PRN Reason: NAUSEA/VOMITING Oxycodone HCl (Oxycodone 5 Mg Tablet) 5 mg PO Q4H PRN PRN PRN Reason: Pain Score 1-10 Last Admin: 08/16/20 10:07 Dose: 5 mg Documented by: Pantoprazole Sodium (Pantoprazole Sodium 40 Mg Tablet) 40 mg PO DAILY [facility] Last Admin: 08/16/20 09:54 Dose: 40 mg Documented by: Polyethylene Glycol (Polyethylene Glycol 3350 17 Gm Packet) 17 gm PO DAILY [facility] Last Admin: 08/16/20 09:54 Dose: 17 gm Documented by: Pravastatin Sodium (Pravastatin 40 Mg Tablet) 40 mg PO QHS [facility] Last Admin: 08/15/20 20:54 Dose: 40 mg Documented by: Prednisone ([facility] 5 Mg [facility]t) [facility] Last Admin: 08/16/20 09:55 Dose: 2.5 mg Documented by: Sodium Chloride (0.9% Saline Lock 10 Ml Syringe) 10 - 40 ml IV UD PRN PRN Reason: SALINE FLUSH Last Admin: 08/16/20 13:17 Dose: 20 ml Documented by: Assessment/Plan Hospitalist note: I am seeing this patient in conjunction with Elsie Jacob. I independently seen and examined the patient. Progress note above, laboratory data and imaging studies reviewed and I concur with above treatment plan. Today, patient reported right lower leg and right foot pain. It is managed with the current pain medication regimen. Denied fever or chills. His vital signs are stable. - Physical Exam General: Alert, Oriented x3, Cooperative, No apparent distress. HEENT: Atraumatic, PERRLA, EOMI. Neck: Supple, No JVD, Negative Carotid Bruits, Trachea Midline, Thyroid Normal. Lungs: Diminished breath sounds bilateral, otherwise clear, No rhonchi, No wheeze, No rales. Cardiovascular: Regular rate, Regular Rhythm, Normal S1, Normal S2, PMI Normal. Abdomen: Bowel Sounds Present, Soft, Non Tender, Non-Distended, No Hepato- splenomegaly. Extremities: Right foot and leg dressed. Status post below left knee amputation. Skin: No rashes, No breakdown Neurological: Cranial nerves are intact. Neuro grossly intact Vital Signs are stable. Assessment and plan: #1 acute right foot osteomyelitis/skin ulceration/right foot cellulitis: Status post right metatarsal amputation with excision of the fourth and fifth metatarsals, incision and drainage of the right foot. Postoperative day 1. He is on IV vancomycin. Wound culture revealing staph polys, final is pending. Vitals are stable, has been afebrile. Podiatry medicine on the case. Infectious disease consulted, awaiting their recommendations. #2 severe sepsis: Secondary to #1. Currently, patient is on IV vancomycin. Plan as above. #3 other chronic medical problems: Stable, continue current medications as above. This note was generated with [employer] dictation software. It may contain incorrect words, spelling, and punctuation that were not noted in checking the note before signing. Inpatient E&M: 38986 Subs Hosp L2
[2020-08-16] MEDS: Insulin Lispro 100 UNIT/ML INSULN.PEN SC ×3 (13:15→22:48)
[2020-08-16] MEDS: Vancomycin IV 1,000 MG/200 ML BAG 200 MG IV ×2 (13:16→22:50)
[2020-08-16] MEDS: 0.9% Saline Lock 10 ML Syringe IV ×2 (13:17→16:39)
[2020-08-16 13:30] LABS: Bedside Glucose 272 mg/dL (70-110)
--- NOTE | 2020-08-16 14:58 | CON.PCM_ITS ---
Problem List (1) Osteomyelitis of right foot Status: Acute Reason for Consult: osteo Consulted by: Dr. Morin History of Present Illness: The patient is a 74 year old M with L BKA, R TMA, admitted 08/13 with a week of worsening R foot ulceration, redness, swelling, drainage. No fever. H/o MRSA osteo. Admitted, taken to OR by Dr. Shah 08/15 for I&D. Feeling ok today. Full ROS performed and neg except as noted above. - Medical History Past Medical History (Chronic Problems): Chronic Problems (Last Updated 08/16/20 @ 13:[address] 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) 2006, 2012 gen change History of coronary artery stent placement (Chronic ~03/2019) 3.0 x 12 mm Rebel BMS to pD1 03/27/19 Peripheral vascular disease due to secondary diabetes (Chronic) Coronary artery disease involving [place] coronary artery of [place] heart (Chronic) MAYS to LAD, SVG to PDA 10/2003; 3.0 x 12 mm Rebel BMS to pD1 03/27/19 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) Allergies/Adverse Reactions: Allergies amiodarone Allergy (Severe, Verified 08/14/20 00:24) pulmonary fibrosis sotalol Allergy (Severe, Verified 08/14/20 00:24) intolerant levofloxacin [From Levaquin] Allergy (Verified 08/14/20 00:24) Pain in joints LEG CRAMPING gabapentin Adverse Reaction (Verified 08/14/20 00:24) Diarrhea latex Adverse Reaction (Verified 08/14/20 00:24) Rash Home Medications: Ambulatory Orders Medication Instructions Recorded Oxycodone HCl/Acetaminophen 1 - 2 tab PO Q4H PRN PRN 03/17/15 [Percocet 5-325] acetaminophen 500 mg tablet 1,000 mg PO 4X/DAY tab 08/05/19 levothyroxine 200 mcg tablet 200 mcg PO DAILY 08/05/19 omeprazole 40 mg capsule,delayed 40 mg PO DAILY 08/05/19 release prednisone 2.5 mg tablet 2.5 mg PO DAILY 08/05/19 aspirin 81 mg tablet,delayed 81 mg PO DAILY 12/17/19 release Insulin Glargine,Hum.rec.anlog 15 unit SQ BID 06/09/20 [Lantus] Insulin Regular, Human [Novolin R] See Protocol SC QHS 06/09/20 Bumetanide 2 mg PO DAILY 06/11/20 Insulin Regular, Human [Novolin R] 10 units SC BREAKFAST 06/11/20 Insulin Regular, Human [Novolin R] 20 units SC DINNER 06/11/20 Clopidogrel Bisulfate [Clopidogrel] 75 mg PO DAILY 08/06/20 Lisinopril 2.5 mg PO DAILY 08/06/20 Metoprolol(XL)Succ [Toprol Xl 50 mg PO DAILY 08/06/20 (Beta Kavita)] Pravastatin Sodium 40 mg PO QHS 08/06/20 - Social History SMOKING STATUS:: Former smoker Vital Signs Temp Pulse Resp BP Pulse Ox 98.3 F 108 H 15 97/52 L 99 08/16/20 09:48 08/16/20 11:56 08/16/20 09:48 08/16/20 09:58 08/16/20 09:48 Oxygen Flow Rate (L/min) 2 Oxygen Delivery Method Nasal Cannula Weight: 91.1 kg Body Mass Index (BMI) 27.2 Finger Stick Blood Glucose 318 Microbiology Past 72 Hours 08/13/20 20:13 Blood Culture - Preliminary Blood Culture (Wb) - Anticubital Left No growth in 48 hours. 08/13/20 20:23 Blood Culture - Preliminary Blood Culture (Wb) - Venous No growth in 48 hours. 08/15/20 Unknown Gram Stain - Final Wound - Right Foot Wound Culture - Preliminary Staphylococcus aureus 08/15/20 Unknown Gram Stain - Final Bone - Right Foot Wound Culture - Preliminary Staphylococcus aureus 08/15/20 Unknown Gram Stain - Final Bone - Right Foot Wound Culture - Preliminary Staphylococcus aureus 08/13/20 20:40 Urine Culture - Final Urine, Clean Catch Culture exhibits no growth. 08/13/20 20:45 SARS-CoV-2 Antigen (Rapid) - Final Mucosa - Nose Laboratory Tests Past 24 Hrs 08/15/20 08/16/20 08/16/20 21:43 05:26 05:26 WBC 10.9 RBC 2.80 L Hgb 8.5 L Hct 28.0 L MCV 100.0 H MCH 30.4 MCHC 30.4 L RDW Std Deviation 52.7 H RDW Coeff of Jac 14.6 Plt Count 231 MPV 9.2 Sodium 134 L Potassium 4.0 Chloride 99 Carbon Dioxide 30.0 Anion Gap 5 BUN 27 H Creatinine 0.99 Estim Creat Clear Calc 72.94 Est GFR (MDRD) Af Amer 95 Est GFR (MDRD) Non-Af 79 BUN/Creatinine Ratio 27.3 H Glucose 187 H Calcium 8.2 L Random Vancomycin 17.3 H - Other Studies Radiology: [] reviewed Other Studies: [] Route of nutrition/ use of supplements: [] Nutritional Intake: [] IV Site: [] Wills Catheter: [] - Physical Exam General: Alert, Oriented x3, Cooperative, No apparent distress HEENT: Atraumatic, PERRLA, EOMI Neck: Supple, No Nodes Lungs: Clear to auscultation, Normal air movement Cardiovascular: Regular rate, Regular Rhythm Abdomen: Soft, Non Tender, Non-Distended Extremities: No edema Skin: Ulcer/ Wound - R foot wrapped. LLE s/p BKA. Musculoskeletal: No Tenderness to Palpation of Joints or Extremities Neurological: Cranial nerves II-XII grossly intact - Assessment/Plan Antibiotics: [] Assessment/Plan: [] Active and Suspected Problems (Last Updated 08/16/20 @ 13:[address] Eda Morin MD) Osteomyelitis of right foot (Acute) R foot MRSA osteo - bcx neg. Now s/p I&D by Dr. Shah 08/15/20. On vanc, will order picc. Will follow, thank you
--- NOTE | 2020-08-16 15:47 | PN_ITS ---
Patient Problems: Active and Suspected Problems (Last Updated 08/16/20 @ 13:[address] Eda Morin MD) Osteomyelitis of right foot (Acute) Subjective: Patient was seen today for follow up on right foot. Patient relates he is tired. His is at bedside. Patient resting comfortably in bed with no complaints of fever, chills, nausea or vomiting. - Physical Exam Vitals/I&O's: Vital Signs Temp Pulse Resp BP Pulse Ox 98.3 F 108 H 15 97/52 L 99 08/16/20 09:48 08/16/20 11:56 08/16/20 09:48 08/16/20 09:58 08/16/20 09:48 Oxygen Flow Rate (L/min) 2 Oxygen Delivery Method Nasal Cannula Weight: 91.1 kg Body Mass Index (BMI) 27.2 Finger Stick Blood Glucose 318 Intake and Output for Last 24 Hours 08/14/20 08/15/20 08/16/20 23:59 23:59 23:59 Intake Total 5330 / 5330 480 / 530 870 / 870 Output Total 700 / 700 Balance 5330 / 5330 -220 / -170 870 / 870 General: Alert, Oriented x3, Cooperative, No apparent distress Extremities: No Calf Tenderness, - - Right foot TMA with incision site lateral aspect - the sutures are intact, skin edges copated, there is some cyanosis to the proximal incision site at skin edges, there is no drainage, no maloder, no necrosis, no fluctuance, no visible abscess, no cellulitis noted Skin: - - Small pressure infaract to the skin lateral ankle unstageable Microbiology Past 72 Hours 08/13/20 20:13 Blood Culture (Wb) - Anticubital Left Blood Culture - Preliminary No growth in 48 hours. 08/13/20 20:23 Blood Culture (Wb) - Venous Blood Culture - Preliminary No growth in 48 hours. 08/15/20 Unknown Wound - Right Foot Gram Stain - Final 08/15/20 Unknown Wound - Right Foot Wound Culture - Preliminary Staphylococcus aureus 08/15/20 Unknown Bone - Right Foot Gram Stain - Final 08/15/20 Unknown Bone - Right Foot Wound Culture - Preliminary Staphylococcus aureus 08/15/20 Unknown Bone - Right Foot Gram Stain - Final 08/15/20 Unknown Bone - Right Foot Wound Culture - Preliminary Staphylococcus aureus 08/13/20 20:40 Urine, Clean Catch Urine Culture - Final Culture exhibits no growth. 08/13/20 20:45 Mucosa - Nose SARS-CoV-2 Antigen (Rapid) - Final Laboratory Results 08/15/20 17:43: POC Glucose 321 H 08/15/20 20:31: POC Glucose 275 H 08/15/20 21:43: Random Vancomycin 17.3 H 08/16/20 05:26: WBC 10.9, RBC 2.80 L, Hgb 8.5 L, Hct 28.0 L, MCV 100.0 H, MCH 30.4, MCHC 30.4 L, RDW Std Deviation 52.7 H, RDW Coeff of Jac 14.6, Plt Count 231, MPV 9.2 08/16/20 05:26: Sodium 134 L, Potassium 4.0, Chloride 99, Carbon Dioxide 30.0, Anion Gap 5, BUN 27 H, Creatinine 0.99, Estim Creat Clear Calc 72.94, Est GFR (MDRD) Af Amer 95, Est GFR (MDRD) Non-Af 79, BUN/Creatinine Ratio 27.3 H, Glucose 187 H, Calcium 8.2 L 08/16/20 06:19: POC Glucose 197 H 08/16/20 13:12: POC Glucose 272 H Current Medications Acetaminophen (Acetaminophen 500 Mg Tablet) 1,000 mg PO TID PRN PRN PRN Reason: PAIN 1-10 OR TEMP Last Admin: 08/16/20 10:07 Dose: 1,000 mg Documented by: Aspirin (Aspirin E.C. 81 Mg Tablet) 81 mg PO DAILY [facility] Last Admin: 08/16/20 09:55 Dose: 81 mg Documented by: Bumetanide (Bumetanide 2 Mg Tablet) 2 mg PO DAILY [facility] Last Admin: 08/16/20 09:54 Dose: 2 mg Documented by: Clopidogrel Bisulfate (Clopidogrel Bisulfate 75 Mg Tablet) 75 mg PO DAILY [facility] Last Admin: 08/16/20 09:54 Dose: 75 mg Documented by: Dextrose (Dextrose 50%-Water 25 Gm/50 Ml Disp.Syrin) 0 gm IV X1 PRN; Protocol PRN Reason: Hypoglycemia Docusate Sodium (Docusate Sodium 100 Mg Capsule) 200 mg PO BID PRN PRN PRN Reason: Constipation Enoxaparin Sodium (Enoxaparin 40 Mg/0.4 Ml Syringe) 40 mg SC DAILY [facility] Last Admin: 08/16/20 09:54 Dose: 40 mg Documented by: Glucagon (Glucagon 1 Mg/Ml Syringe) 1 mg IM .X1 PRN PRN Reason: Hypoglycemia Vancomycin IV Pharmacy to Dose (1 ea/ Sodium Chloride) 500 mls @ 250 mls/hr IV X1 PRN; Protocol PRN Reason: Rx to Dose Sodium Chloride () 250 mls @ 15 mls/hr IV .[id number] PRN PRN Reason: Additional IVPB Infusion Vancomycin HCl (Vancomycin) 1,000 mg in 200 mls @ 200 mls/hr IV Q12H [facility] Last Infusion: 08/16/20 15:24 Dose: Infused Documented by: Insulin Glargine (Insulin Glargine 100 Units/Ml Pen) 15 units SC QPM [facility] Last Admin: 08/15/20 20:53 Dose: 15 units Documented by: Insulin Glargine (Insulin Glargine 100 Units/Ml Pen) 10 units SC BREAKFAST [facility] Last Admin: 08/16/20 09:57 Dose: 10 units Documented by: Insulin Human Lispro (Insulin Lispro 100 Unit/Ml Insuln.Pen) 0 unit SC ACHS [facility]; Protocol Last Admin: 08/16/20 13:15 Dose: 6 u Documented by: Levothyroxine Sodium (Levothyroxine 100 Mcg Tablet) 200 mcg PO DAILY@0600 [facility] Last Admin: 08/16/20 06:21 Dose: 200 mcg Documented by: Lisinopril (Lisinopril 2.5 Mg Tablet) 2.5 mg PO DAILY [facility] Last Admin: 08/16/20 09:59 Dose: Not Given Documented by: Metoprolol Succinate (Metoprolol(Xl)Succ 50 Mg Tablet) 50 mg PO DAILY [facility] Last Admin: 08/16/20 09:58 Dose: 50 mg Documented by: Nitroglycerin (Nitroglycerin (Inpatient Use) 0.4 Mg Tab.Subl) 0.4 mg SUBLINGUAL Q5M PRN PRN Reason: CARDIAC/CHEST PAIN Nutritional Formula (Lactose Free) (Glucerna Shake 120 Ml Liquid) 120 ml PO TIDCM [facility] Last Admin: 08/16/20 13:16 Dose: 120 ml Documented by: Ondansetron HCl (Ondansetron 4 Mg/2 Ml Vial) 4 mg IV Q8H PRN PRN PRN Reason: NAUSEA/VOMITING Oxycodone HCl (Oxycodone 5 Mg Tablet) 5 mg PO Q4H PRN PRN PRN Reason: Pain Score 1-10 Last Admin: 08/16/20 10:07 Dose: 5 mg Documented by: Pantoprazole Sodium (Pantoprazole Sodium 40 Mg Tablet) 40 mg PO DAILY [facility] Last Admin: 08/16/20 09:54 Dose: 40 mg Documented by: Polyethylene Glycol (Polyethylene Glycol 3350 17 Gm Packet) 17 gm PO DAILY [facility] Last Admin: 08/16/20 09:54 Dose: 17 gm Documented by: Pravastatin Sodium (Pravastatin 40 Mg Tablet) 40 mg PO QHS [facility] Last Admin: 08/15/20 20:54 Dose: 40 mg Documented by: Prednisone ([facility] 5 Mg [facility] Admin: 08/16/20 09:55 Dose: 2.5 mg Documented by: Sodium Chloride (0.9% Saline Lock 10 Ml Syringe) 10 - 40 ml IV UD PRN PRN Reason: SALINE FLUSH Last Admin: 08/16/20 13:17 Dose: 20 ml Documented by: Medical Necessity - Tobacco Use Smoking Status: Former smoker Assessment/Plan All Active Problems (Last Updated 08/16/20 @ 13:[address] 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 s/p debridement/revision TMA on . Foot stable. Continue with local care. Reviewed cultures, patient on IV antibiotics, Dr. Lange on consult. Wound care right foot: Aquacel Ag, gauze, kerlix and light milton dressing changes daily. Keep offloaded at all times. No weightbearing right foot. Patient with significant right LE PAD - patient follows with Dr. Busch, per discussion with Dr. Busch no further intervention possible. Discussed with patient about nursing facility placement, and he is on board but prefers TCU if possible. Please contact if any questions or concerns
[2020-08-16 16:46] LABS: Bedside Glucose 274 mg/dL (70-110)
[2020-08-16] MEDS: Pravastatin 40 MG Tablet PO (22:51)
[2020-08-16 23:05] LABS: Bedside Glucose 236 mg/dL (70-110)
[2020-08-17] VITALS (7 sets, daily range): BP systolic 104–114; BP diastolic 56–64; PULSE 71–110; RESP 15–16; TEMP 36.4–37.1; O2SAT 94–100
[2020-08-17 05:46] LABS: Hematocrit 27.3 % (40-54); Hemoglobin 8.4 g/dL (13.0-16.5); Mean Corp Hgb Conc 30.8 g/dL (32-36); Mean Corpuscular Hgb 30.1 pg (27.0-32.0); Mean Corpuscular Volume 97.8 fL (80-94); Mean Platelet Vol. 9.1 fl (6.2-12.0); Platelet Count 265 K/mm3 (150-450); RBC Distribution Width CV 14.3 % (11.6-14.6); RBC Distribution Width SD 50.5 fl (35.1-43.9); Red Blood Count 2.79 M/mm3 (4.6-6.2); White Blood Count 10.7 K/mm3 (4.4-11.0)
[2020-08-17 06:06] LABS: Anion Gap 6 (5-15); BUN 29 mg/dL (7-18); BUN/Creat Ratio 26.4 RATIO (10-20); Calcium,Total 8.2 mg/dL (8.5-10.1); Chloride 98 mmol/L (98-107); EST Glomerular Filtration Rate 70 mL/min (>60); Est Glom Filt Rate - Afr Amer 84 mL/min (>60); Estimated Creatinine Clearance 65.65 ml/min; Glucose 220 mg/dL (74-106); Sodium Level 133 mmol/L (136-145)
[2020-08-17] MEDS: Insulin Lispro 100 UNIT/ML INSULN.PEN SC ×3 (06:54→17:00)
[2020-08-17] MEDS: Levothyroxine 100 MCG Tablet 200 MCG PO (06:54)
[2020-08-17 07:06] LABS: Bedside Glucose 201 mg/dL (70-110)
[2020-08-17] MEDS: oxyCODONE 5 MG Tablet PO ×3 (08:25→17:37)
[2020-08-17] MEDS: Acetaminophen 500 MG Tablet 1000 MG PO (08:25)
[2020-08-17] MEDS: Glucerna Shake 120 ML LIQUID PO ×2 (08:39→11:36)
[2020-08-17] MEDS: Clopidogrel Bisulfate 75 MG Tablet PO (08:40)
[2020-08-17] MEDS: Enoxaparin 40 MG/0.4 ML Syringe SC (08:40)
[2020-08-17] MEDS: Metoprolol(XL)Succ 50 MG Tablet PO (08:40)
[2020-08-17] MEDS: Pantoprazole Sodium 40 MG Tablet PO (08:40)
[2020-08-17] MEDS: Aspirin E.C. 81 MG Tablet PO (08:41)
[2020-08-17] MEDS: Lisinopril 2.5 MG Tablet PO (08:41)
[2020-08-17] MEDS: Bumetanide 2 MG Tablet PO (08:41)
[2020-08-17] MEDS: predniSONE 5 MG Tablet 2.5 MG PO (08:41)
[2020-08-17] MEDS: Polyethylene Glycol 3350 17 GM PACKET PO (08:51)
--- NOTE | 2020-08-17 09:15 | CASEMGMT ---
Per physician patient is in agreement with going to a assisted facility. SW met with patient, introduced self and role at [facility]. Patient was provided a list of SNF providers including quality and resource use data and consistent with the patient?s preferred geographic region, medical needs, and insurance network. Patient asked about [facility] TCU. SW told him they are full so this is not an option. SW told him SW will stop back by when his comes in today. Jayleen PRESLEY MSW
--- NOTE | 2020-08-17 10:35 | CASEMGMT ---
SW called patient's 's cell phone and left her a voice mail requesting a return call. SW also tried their home number and there was no answer. Wait to hear back from patient's . Jayleen HAIDER
--- NOTE | 2020-08-17 10:39 | PN.ID_ITS ---
Patient Problems: Active and Suspected Problems (Last Updated 08/16/20 @ 13:[address] Eda Morin MD) Osteomyelitis of right foot (Acute) Subjective: Feeling ok, no fever, no n/v/d - Physical Exam Vitals/I&O's: Vital Signs Temp Pulse Resp BP Pulse Ox 98 F 85 15 114/56 L 100 08/17/20 08:30 08/17/20 08:40 08/17/20 08:30 08/17/20 08:40 08/17/20 08:30 Oxygen Flow Rate (L/min) 3 Oxygen Delivery Method Nasal Cannula Weight: 91.1 kg Body Mass Index (BMI) 27.2 Finger Stick Blood Glucose 318 Intake and Output for Last 24 Hours 08/15/20 08/16/20 08/17/20 23:59 23:59 23:59 Intake Total 480 / 530 1320 / 1320 650 / 650 Output Total 700 / 700 500 / 500 500 / 500 Balance -220 / -170 820 / 820 150 / 150 General: Alert, Cooperative, No apparent distress Lungs: Clear to auscultation, Normal air movement Cardiovascular: Regular rate, Regular Rhythm Abdomen: Soft, Non Tender, Non-Distended Skin: Ulcer/ Wound - foot wrapped Microbiology Past 72 Hours 08/15/20 Unknown Wound - Right Foot Gram Stain - Final 08/15/20 Unknown Wound - Right Foot Wound Culture - Final Meth. resistant Staph. aureus 08/15/20 Unknown Wound - Right Foot Anaerobic Culture - Final No anaerobic bacteria isolated. 08/15/20 Unknown Bone - Right Foot Gram Stain - Final 08/15/20 Unknown Bone - Right Foot Wound Culture - Final Meth. resistant Staph. aureus 08/15/20 Unknown Bone - Right Foot Anaerobic Culture - Final No anaerobic bacteria isolated. 08/15/20 Unknown Bone - Right Foot Gram Stain - Final 08/15/20 Unknown Bone - Right Foot Wound Culture - Preliminary Staphylococcus aureus 08/15/20 Unknown Bone - Right Foot Anaerobic Culture - Final No anaerobic bacteria isolated. 08/13/20 20:13 Blood Culture (Wb) - Anticubital Left Blood Culture - Preliminary No growth in 48 hours. 08/13/20 20:23 Blood Culture (Wb) - Venous Blood Culture - Preliminary No growth in 48 hours. 08/13/20 20:40 Urine, Clean Catch Urine Culture - Final Culture exhibits no growth. Laboratory Results 08/16/20 13:12: POC Glucose 272 H 08/16/20 16:23: POC Glucose 274 H 08/16/20 22:48: POC Glucose 236 H 08/17/20 05:30: WBC 10.7, RBC 2.79 L, Hgb 8.4 L, Hct 27.3 L, MCV 97.8 H, MCH 30.1, MCHC 30.8 L, RDW Std Deviation 50.5 H, RDW Coeff of Jac 14.3, Plt Count 265, MPV 9.1 08/17/20 05:30: Sodium 133 L, Potassium 4.0, Chloride 98, Carbon Dioxide 29.0, Anion Gap 6, BUN 29 H, Creatinine 1.10, Estim Creat Clear Calc 65.65, Est GFR (MDRD) Af Amer 84, Est GFR (MDRD) Non-Af 70, BUN/Creatinine Ratio 26.4 H, Glucose 220 H, Calcium 8.2 L 08/17/20 06:49: POC Glucose 201 H Current Medications Acetaminophen (Acetaminophen 500 Mg Tablet) 1,000 mg PO TID PRN PRN PRN Reason: PAIN 1-10 OR TEMP Last Admin: 08/17/20 08:25 Dose: 1,000 mg Documented by: Aspirin (Aspirin E.C. 81 Mg Tablet) 81 mg PO DAILY [facility] Last Admin: 08/17/20 08:41 Dose: 81 mg Documented by: Bumetanide (Bumetanide 2 Mg Tablet) 2 mg PO DAILY [facility] Last Admin: 08/17/20 08:41 Dose: 2 mg Documented by: Clopidogrel Bisulfate (Clopidogrel Bisulfate 75 Mg Tablet) 75 mg PO DAILY [facility] Last Admin: 08/17/20 08:40 Dose: 75 mg Documented by: Dextrose (Dextrose 50%-Water 25 Gm/50 Ml Disp.Syrin) 0 gm IV X1 PRN; Protocol PRN Reason: Hypoglycemia Docusate Sodium (Docusate Sodium 100 Mg Capsule) 200 mg PO BID PRN PRN PRN Reason: Constipation Enoxaparin Sodium (Enoxaparin 40 Mg/0.4 Ml Syringe) 40 mg SC DAILY [facility] Last Admin: 08/17/20 08:40 Dose: 40 mg Documented by: Glucagon (Glucagon 1 Mg/Ml Syringe) 1 mg IM .X1 PRN PRN Reason: Hypoglycemia Vancomycin IV Pharmacy to Dose (1 ea/ Sodium Chloride) 500 mls @ 250 mls/hr IV X1 PRN; Protocol PRN Reason: Rx to Dose Sodium Chloride () 250 mls @ 15 mls/hr IV .[id number] PRN PRN Reason: Additional IVPB Infusion Vancomycin HCl (Vancomycin) 1,000 mg in 200 mls @ 200 mls/hr IV Q12H [facility] Last Infusion: 08/17/20 00:56 Dose: Infused Documented by: Insulin Glargine (Insulin Glargine 100 Units/Ml Pen) 15 units SC QPM [facility] Last Admin: 08/16/20 22:49 Dose: 15 units Documented by: Insulin Glargine (Insulin Glargine 100 Units/Ml Pen) 10 units SC BREAKFAST [facility] Last Admin: 08/17/20 08:42 Dose: 10 units Documented by: Insulin Human Lispro (Insulin Lispro 100 Unit/Ml Insuln.Pen) 0 unit SC ACHS [facility]; Protocol Last Admin: 08/17/20 06:54 Dose: 4 u Documented by: Levothyroxine Sodium (Levothyroxine 100 Mcg Tablet) 200 mcg PO DAILY@0600 [facility] Last Admin: 08/17/20 06:54 Dose: 200 mcg Documented by: Lisinopril (Lisinopril 2.5 Mg Tablet) 2.5 mg PO DAILY [facility] Last Admin: 08/17/20 08:41 Dose: 2.5 mg Documented by: Metoprolol Succinate (Metoprolol(Xl)Succ 50 Mg Tablet) 50 mg PO DAILY [facility] Last Admin: 08/17/20 08:40 Dose: 50 mg Documented by: Nitroglycerin (Nitroglycerin (Inpatient Use) 0.4 Mg Tab.Subl) 0.4 mg SUBLINGUAL Q5M PRN PRN Reason: CARDIAC/CHEST PAIN Nutritional Formula (Lactose Free) (Glucerna Shake 120 Ml Liquid) 120 ml PO TIDCM [facility] Last Admin: 08/17/20 08:39 Dose: 120 ml Documented by: Ondansetron HCl (Ondansetron 4 Mg/2 Ml Vial) 4 mg IV Q8H PRN PRN PRN Reason: NAUSEA/VOMITING Oxycodone HCl (Oxycodone 5 Mg Tablet) 5 mg PO Q4H PRN PRN PRN Reason: Pain Score 1-10 Last Admin: 08/17/20 08:25 Dose: 5 mg Documented by: Pantoprazole Sodium (Pantoprazole Sodium 40 Mg Tablet) 40 mg PO DAILY [facility] Last Admin: 08/17/20 08:40 Dose: 40 mg Documented by: Polyethylene Glycol (Polyethylene Glycol 3350 17 Gm Packet) 17 gm PO DAILY [facility] Last Admin: 08/17/20 08:51 Dose: 17 gm Documented by: Pravastatin Sodium (Pravastatin 40 Mg Tablet) 40 mg PO QHS [facility] Last Admin: 08/16/20 22:51 Dose: 40 mg Documented by: Prednisone ([facility] Admin: 08/17/20 08:41 Dose: 2.5 mg Documented by: Sodium Chloride (0.9% Saline Lock 10 Ml Syringe) 10 - 40 ml IV UD PRN PRN Reason: SALINE FLUSH Last Admin: 08/16/20 16:39 Dose: 40 ml Documented by: Medical Necessity - Tobacco Use Smoking Status: Former smoker Route of nutrition/ use of supplements: [] Nutritional Intake: [] IV Site: [] Wills Catheter: [] - Assessment/Plan Antibiotics: [] Assessment/Plan: [] Active and Suspected Problems (Last Updated 08/16/20 @ 13:[address] Eda Morin MD) Osteomyelitis of right foot (Acute) R foot MRSA osteo - bcx neg. Now s/p I&D by Dr. Shah 08/15/20. On vanc, picc in place, plan on discharge on 6 weeks iv vanc, stop date 09/26/20, weekly bmp, cbc, esr, and vanc trough. After iv vanc, may do course of po doxy. ID followup in 2 week. Wrote rx, d/w nurse case manager. Will follow
--- NOTE | 2020-08-17 11:14 | PCM.EXTCARCO ---
- Diet 08/15/20 09:53 Diet: Carbohydrate Controlled Type of Dietary Supplement:: Alok Is pt able to select menu?: Yes Diet Comments: w/ breakfast and dinner - Routine Orders/Code Status Enema Type: Fleetz Enema Frequency: Daily PRN Suppository Type: Dulcolax 10mg Suppository Frequency: Daily PRN O2 Liters per Minute: 2-3 O2 Frequency: Continuous Keep PO Greater than or Equal to (%): 90 Routine Lab Work: - - Weekly BMP, CBC, ESR and Vanco trough while on IV vancomycin. Code Status: Full Code - Wound(s) RT FOOT Wound Type: Surgical Incision - Suggestions for Active Care Change Position every (hours): 2 Times a day to sit in chair: 3 - Therapies Weight Bearing: Non weight bearing Extremity Affected:: Right Lower Physical Therapy: Eval and Treat Occupational Therapy: Eval and Treat - Problem/Diagnosis (1) Below-knee amputation of left lower extremity Status: Chronic (2) Peripheral vascular disease Status: Chronic (3) Osteomyelitis of right foot Status: Acute (4) Ulcer of right foot with necrosis of bone Status: Acute (5) Malnutrition Status: Chronic (6) Amputation of right foot Status: Chronic Comment: transmetatarsal amputation (7) Other specified peripheral vascular diseases Status: Chronic (8) Type 2 diabetes mellitus with diabetic polyneuropathy Status: Chronic (9) Delayed wound healing Status: Chronic (10) Ischemic cardiomyopathy Status: Chronic (11) Biventricular implantable cardioverter-defibrillator (ICD) in situ Status: Chronic (12) 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 (13) ALL treated with BiPAP Status: Chronic Comment: With O2 2L (14) Presence of permanent cardiac pacemaker Status: Chronic Comment: 2006, 2012 gen change (15) History of coronary artery stent placement Status: Chronic Comment: 3.0 x 12 mm Rebel BMS to pD1 03/27/19 (16) Peripheral vascular disease due to secondary diabetes Status: Chronic (17) Coronary artery disease involving [place] coronary artery of [place] heart Status: Chronic Comment: MAYS to LAD, SVG to PDA 10/2003; 3.0 x 12 mm Rebel BMS to pD1 03/27/19 (18) Diabetes mellitus type 2 with atherosclerosis of arteries of extremities Status: Chronic - Allergies/Procedures Done in Hospital Allergies/Adverse Reactions: Allergies amiodarone Allergy (Severe, Verified 08/14/20 00:24) pulmonary fibrosis sotalol Allergy (Severe, Verified 08/14/20 00:24) intolerant levofloxacin [From Levaquin] Allergy (Verified 08/14/20 00:24) Pain in joints LEG CRAMPING gabapentin Adverse Reaction (Verified 08/14/20 00:24) Diarrhea latex Adverse Reaction (Verified 08/14/20 00:24) Rash Procedures: - - Right foot transmetatarsal amputation with excision of fourth and fifth metatarsals and I&D of right foot ulceration - Type of Care/Length of Stay Estimated LOS: Convalescent Care Less Than 30 days Type of Care Needed: Skilled Rehab Potential: Fair Prognosis: Fair - Additional Orders/Day of Discharge Additional Orders: IV vancomycin stop date 09/26/2020. May need course of oral doxycycline after IV vancomycin is completed. Follow-up with infectious disease in 2 weeks. Right foot dressing care: Daily dressing changes. Cleanse with normal saline, apply Aquacel Ag with overlying gauze, Kerlix and light Jem dressing. H&P will serve as current which was dated: 08/13/20 Day of Discharge: 08/17/20 - Dietary and Speech Recommendations Dietitian Recommendations/Changes: Continue cardiac, 1800 calorie controlled diet. Will add Alok BID w/ meals. Continue Glucerna TID. Monitor need for fluid restriction given hx of heart failure. - Follow Up Care Primary Care Physician: Jcarlos Glasgow MD [Primary Care Provider] - Please follow up with your Primary Care Physician in: 1 Week Please Follow Up With: Laine Shah DPM When: 1 Week Please Follow Up With: Chadd Glass MD When: 2 Weeks Please Follow Up With: Rc Dean NP, RATE EXAMINER-C When: As scheduled 10/25/2020
--- NOTE | 2020-08-17 11:28 | PCM.DC.SUM ---
<Elsie Jacob TEST FIXTURE ASSEMBLER - Last Filed: 08/17/20 11:47> Discharge Date and Diagnosis - Problem List Patient Problems: Active and Suspected Problems (Last Updated 08/16/20 @ 13:[address] Eda Morin MD) Osteomyelitis of right foot (Acute) Ulcer of right foot with necrosis of bone (Acute) Date of Admission: 08/13/20 Date of Discharge: 08/17/20 - Primary Discharge Diagnosis Acute Problems: Active Problems (Last Updated 08/16/20 @ 13:[address] Eda Morin MD) 1. Severe sepsis secondary to right foot ulceration with cellulitis with MRSA osteomyelitis 2. Ischemic cardiomyopathy/chronic heart failure with reduced ejection fraction-status post ICD. 3. 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 4. Chronic hypoxic respiratory failure secondary to chronic heart failure with reduced ejection fraction and ALL 5. CAD with history of stents 6. Hypothyroidism 7. Chronic macrocytic anemia - Secondary Discharge Diagnosis Chronic Problems: Chronic Problems (Last Updated 08/16/20 @ 13:[address] 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) 2006, 2012 gen change History of coronary artery stent placement (Chronic ~03/2019) 3.0 x 12 mm Rebel BMS to pD1 03/27/19 Peripheral vascular disease due to secondary diabetes (Chronic) Coronary artery disease involving [place] coronary artery of [place] heart (Chronic) MAYS to LAD, SVG to PDA 10/2003; 3.0 x 12 mm Rebel BMS to pD1 03/27/19 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) Hospital Course and Treatment Imaging Results: Diagnostic Data Chest X-Ray 08/13/20 20:06 IMPRESSION: Incomplete expansion of the lungs. Lower left lung is obscured by pacemaker. Electronically Signed: Bebeto Talbot MD at 20:25 EST , Service support , Foot X-Ray 08/15/20 09:52 IMPRESSION: Since the prior examination, the patient is status post resection of the stumps of the fourth and fifth metatarsals. No definite radiographic findings of osteomyelitis. Electronically Signed: Jcarlos Larkin MD at 11:28 EST Tel , Service support , Consultations 08/13/20 23:39 Consult: Onc/Wound/drug inspector Routine Comment: Operations: - - Right foot transmetatarsal amputation with excision of fourth and fifth metatarsals and I&D of right foot ulceration Procedures: None Summary of Care Provided: The patient is a 74 year old M admitted 08/13/2020 due to weakness and lethargy. 1. Severe sepsis secondary to right foot ulceration with cellulitis/MRSA osteomyelitis-Blood culture shows no growth. Wound culture is growing MRSA. X-ray demonstrates osteomyelitis of the stump of the fifth metatarsal and possibly stump of fourth metatarsal. Underwent revisional right foot transmetatarsal amputation with excision of fourth and fifth metatarsals and I&D of right foot 08/15/[address] Shah. ID consulted. Plan for IV vancomycin for 6 weeks with stop date 09/26/2020 per ID recommendations. Follow-up with ID in 2 weeks. Follow-up with podiatry 1 week. 2. Ischemic cardiomyopathy/chronic heart failure with reduced ejection fraction-status post ICD. Patient states he is due for battery replacement however cardiology will not move forward with this while he has an active infection. Recent echocardiogram 07/22/2020 demonstrated an EF of 20%. Continue home Bumex regimen. Follow-up with cardiology as outpatient as scheduled. 3. 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 Continue home insulin regimen. Recent hemoglobin A1c 06/15/20 6.8%. 4. 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 Continue supplement oxygen to maintain O2 at above 90%. 5. CAD with history of stents-on aspirin, Plavix, statin, metoprolol, lisinopril. 6. Hypothyroidism-continue Synthroid regimen. 7. Chronic macrocytic anemia-at baseline, trend CBC. General: Alert, Oriented x3, Cooperative HEENT: Atraumatic, PERRLA, EOMI, Normocephalic Neck: Supple, No JVD, Negative Carotid Bruits Lungs: Clear to auscultation, Normal air movement Cardiovascular: Regular rate, No murmurs Abdomen: Bowel Sounds Present, Soft, Non Tender, Non-Distended Extremities: No clubbing, No cyanosis, No edema, Capillary Refill Less than 3 Seconds, - - Left BKA Skin: No rashes, No breakdown, - - Right foot postop dressing intact Musculoskeletal: No Tenderness to Palpation of Joints or Extremities Neurological: Cranial nerves II-XII grossly intact, Neuro grossly intact Psych/Mental Status: Normal Affect, Appropriate Patient seen and examined prior to discharge. Physical assessment as noted above. Patient is stable for discharge with follow up recommendations as noted above. This patient was seen by SHIMA Gonzalez under the supervision of Dr. Morin. Patient Problems: Active and Suspected Problems (Last Updated 08/16/20 @ 13:[address] Eda Morin MD) Osteomyelitis of right foot (Acute) Ulcer of right foot with necrosis of bone (Acute) - Physical Exam Vitals/I&O's: Vital Signs Temp Pulse Resp BP Pulse Ox 98 F 85 15 114/56 L 100 08/17/20 08:30 08/17/20 08:40 08/17/20 08:30 08/17/20 08:40 08/17/20 08:30 Oxygen Flow Rate (L/min) 3 Oxygen Delivery Method Nasal Cannula Weight: 200 lb 13.458 oz Body Mass Index (BMI) 27.2 Finger Stick Blood Glucose 318 Intake and Output for Last 24 Hours 08/15/20 08/16/20 08/17/20 23:59 23:59 23:59 Intake Total 480 / 530 1320 / 1320 650 / 650 Output Total 700 / 700 500 / 500 500 / 500 Balance -220 / -170 820 / 820 150 / 150 Microbiology Past 72 Hours 08/15/20 Unknown Wound - Right Foot Gram Stain - Final 08/15/20 Unknown Wound - Right Foot Wound Culture - Final Meth. resistant Staph. aureus 08/15/20 Unknown Wound - Right Foot Anaerobic Culture - Final No anaerobic bacteria isolated. 08/15/20 Unknown Bone - Right Foot Gram Stain - Final 08/15/20 Unknown Bone - Right Foot Wound Culture - Final Meth. resistant Staph. aureus 08/15/20 Unknown Bone - Right Foot Anaerobic Culture - Final No anaerobic bacteria isolated. 08/15/20 Unknown Bone - Right Foot Gram Stain - Final 08/15/20 Unknown Bone - Right Foot Wound Culture - Preliminary Staphylococcus aureus 08/15/20 Unknown Bone - Right Foot Anaerobic Culture - Final No anaerobic bacteria isolated. 08/13/20 20:13 Blood Culture (Wb) - Anticubital Left Blood Culture - Preliminary No growth in 48 hours. 08/13/20 20:23 Blood Culture (Wb) - Venous Blood Culture - Preliminary No growth in 48 hours. 08/13/20 20:40 Urine, Clean Catch Urine Culture - Final Culture exhibits no growth. Laboratory Results 08/16/20 13:12: POC Glucose 272 H 08/16/20 16:23: POC Glucose 274 H 08/16/20 22:48: POC Glucose 236 H 08/17/20 05:30: WBC 10.7, RBC 2.79 L, Hgb 8.4 L, Hct 27.3 L, MCV 97.8 H, MCH 30.1, MCHC 30.8 L, RDW Std Deviation 50.5 H, RDW Coeff of Jac 14.3, Plt Count 265, MPV 9.1 08/17/20 05:30: Sodium 133 L, Potassium 4.0, Chloride 98, Carbon Dioxide 29.0, Anion Gap 6, BUN 29 H, Creatinine 1.10, Estim Creat Clear Calc 65.65, Est GFR (MDRD) Af Amer 84, Est GFR (MDRD) Non-Af 70, BUN/Creatinine Ratio 26.4 H, Glucose 220 H, Calcium 8.2 L 08/17/20 06:49: POC Glucose 201 H 08/17/20 10:50: Vancomycin Trough Pending Current Medications Acetaminophen (Acetaminophen 500 Mg Tablet) 1,000 mg PO TID PRN PRN PRN Reason: PAIN 1-10 OR TEMP Last Admin: 08/17/20 08:25 Dose: 1,000 mg Documented by: Aspirin (Aspirin E.C. 81 Mg Tablet) 81 mg PO DAILY [facility] Last Admin: 08/17/20 08:41 Dose: 81 mg Documented by: Bumetanide (Bumetanide 2 Mg Tablet) 2 mg PO DAILY [facility] Last Admin: 08/17/20 08:41 Dose: 2 mg Documented by: Clopidogrel Bisulfate (Clopidogrel Bisulfate 75 Mg Tablet) 75 mg PO DAILY [facility] Last Admin: 08/17/20 08:40 Dose: 75 mg Documented by: Dextrose (Dextrose 50%-Water 25 Gm/50 Ml Disp.Syrin) 0 gm IV X1 PRN; Protocol PRN Reason: Hypoglycemia Docusate Sodium (Docusate Sodium 100 Mg Capsule) 200 mg PO BID PRN PRN PRN Reason: Constipation Enoxaparin Sodium (Enoxaparin 40 Mg/0.4 Ml Syringe) 40 mg SC DAILY [facility] Last Admin: 08/17/20 08:40 Dose: 40 mg Documented by: Glucagon (Glucagon 1 Mg/Ml Syringe) 1 mg IM .X1 PRN PRN Reason: Hypoglycemia Vancomycin IV Pharmacy to Dose (1 ea/ Sodium Chloride) 500 mls @ 250 mls/hr IV X1 PRN; Protocol PRN Reason: Rx to Dose Sodium Chloride () 250 mls @ 15 mls/hr IV .[id number] PRN PRN Reason: Additional IVPB Infusion Vancomycin HCl (Vancomycin) 1,000 mg in 200 mls @ 200 mls/hr IV Q12H [facility] Last Infusion: 08/17/20 00:56 Dose: Infused Documented by: Insulin Glargine (Insulin Glargine 100 Units/Ml Pen) 15 units SC QPM [facility] Last Admin: 08/16/20 22:49 Dose: 15 units Documented by: Insulin Glargine (Insulin Glargine 100 Units/Ml Pen) 10 units SC BREAKFAST [facility] Last Admin: 08/17/20 08:42 Dose: 10 units Documented by: Insulin Human Lispro (Insulin Lispro 100 Unit/Ml Insuln.Pen) 0 unit SC ACHS [facility]; Protocol Last Admin: 08/17/20 06:54 Dose: 4 u Documented by: Levothyroxine Sodium (Levothyroxine 100 Mcg Tablet) 200 mcg PO DAILY@0600 [facility] Last Admin: 08/17/20 06:54 Dose: 200 mcg Documented by: Lisinopril (Lisinopril 2.5 Mg Tablet) 2.5 mg PO DAILY [facility] Last Admin: 08/17/20 08:41 Dose: 2.5 mg Documented by: Metoprolol Succinate (Metoprolol(Xl)Succ 50 Mg Tablet) 50 mg PO DAILY [facility] Last Admin: 08/17/20 08:40 Dose: 50 mg Documented by: Nitroglycerin (Nitroglycerin (Inpatient Use) 0.4 Mg Tab.Subl) 0.4 mg SUBLINGUAL Q5M PRN PRN Reason: CARDIAC/CHEST PAIN Nutritional Formula (Lactose Free) (Glucerna Shake 120 Ml Liquid) 120 ml PO TIDCM [facility] Last Admin: 08/17/20 08:39 Dose: 120 ml Documented by: Ondansetron HCl (Ondansetron 4 Mg/2 Ml Vial) 4 mg IV Q8H PRN PRN PRN Reason: NAUSEA/VOMITING Oxycodone HCl (Oxycodone 5 Mg Tablet) 5 mg PO Q4H PRN PRN PRN Reason: Pain Score 1-10 Last Admin: 08/17/20 08:25 Dose: 5 mg Documented by: Pantoprazole Sodium (Pantoprazole Sodium 40 Mg Tablet) 40 mg PO DAILY [facility] Last Admin: 08/17/20 08:40 Dose: 40 mg Documented by: Polyethylene Glycol (Polyethylene Glycol 3350 17 Gm Packet) 17 gm PO DAILY [facility] Last Admin: 08/17/20 08:51 Dose: 17 gm Documented by: Pravastatin Sodium (Pravastatin 40 Mg Tablet) 40 mg PO QHS [facility] Last Admin: 08/16/20 22:51 Dose: 40 mg Documented by: Prednisone ([facility] 5 Mg Tablet) [facility] Last Admin: 08/17/20 08:41 Dose: 2.5 mg Documented by: Sodium Chloride (0.9% Saline Lock 10 Ml Syringe) 10 - 40 ml IV UD PRN PRN Reason: SALINE FLUSH Last Admin: 08/16/20 16:39 Dose: 40 ml Documented by: Home Medications: Medications to take at Discharge acetaminophen 500 mg tablet 1,000 mg PO 4X/DAY tab 08/05/19 levothyroxine 200 mcg tablet 200 mcg PO DAILY 08/05/19 omeprazole 40 mg capsule,delayed release 40 mg PO DAILY 08/05/19 prednisone 2.5 mg tablet 2.5 mg PO DAILY 08/05/19 aspirin 81 mg tablet,delayed release 81 mg PO DAILY 12/17/19 Insulin Glargine,Hum.rec.anlog [Lantus] 15 unit SQ BID 06/09/20 Insulin Regular, Human [Novolin R] See Protocol SC QHS 06/09/20 Bumetanide 2 mg PO DAILY 06/11/20 Insulin Regular, Human [Novolin R] 10 units SC BREAKFAST 06/11/20 Insulin Regular, Human [Novolin R] 20 units SC DINNER 06/11/20 Clopidogrel Bisulfate [Clopidogrel] 75 mg PO DAILY 08/06/20 Lisinopril 2.5 mg PO DAILY 08/06/20 Metoprolol(XL)Succ [Toprol Xl (Beta Kavita)] 50 mg PO DAILY 08/06/20 Pravastatin Sodium 40 mg PO QHS 08/06/20 Oxycodone [Oxyir] 5 mg PO Q4H PRN PRN 2 Days #5 tab 08/17/20 Polyethylene Glycol 3350 [Miralax] 17 gm PO DAILY packet 08/17/20 Vancomycin IV [Vancomycin] 1,000 mg IV Q12H 40 Days #80 bag 08/17/20 Following Prescriptions Were Given to Patient: Oxycodone [Oxyir] 5 mg PO Q4H PRN PRN 2 Days #5 tab PRN Reason: Pain Score 1-10 Prescription Printed Vancomycin IV [Vancomycin] 1,000 mg IV Q12H 40 Days #80 bag Prescription Printed Primary Care Physician: Jcarlos Glasgow MD [Primary Care Provider] - Please follow up with your Primary Care Physician in: 1 Week Please Follow Up With: Laine Shah DPM When: 1 Week Please Follow Up With: Chadd Glass MD When: 2 Weeks Please Follow Up With: Rc Dean NP, TEST FIXTURE ASSEMBLER-C When: As scheduled 10/25/2020 Disposition: Care Home facility Minutes spent on discharge:: 35 Patient Condition:: Stable Medical Necessity - Tobacco Use Smoking Status: Former smoker Meaningful Use Info Meaningful Use Diagnoses (Choose all that apply): None applicable <Eda Morin - Last Filed: 08/17/20 12:28> Discharge Date and Diagnosis - Primary Discharge Diagnosis Acute Problems: Active Problems (Last Updated 08/16/20 @ 13:[address] Eda Morin MD) Osteomyelitis of right foot (Acute) Ulcer of right foot with necrosis of bone (Acute) - Secondary Discharge Diagnosis Chronic Problems: Chronic Problems (Last Updated 08/16/20 @ 13:[address] 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) 2006, 2012 gen change History of coronary artery stent placement (Chronic ~03/2019) 3.0 x 12 mm Rebel BMS to pD1 03/27/19 Peripheral vascular disease due to secondary diabetes (Chronic) Coronary artery disease involving [place] coronary artery of [place] heart (Chronic) MAYS to LAD, SVG to PDA 10/2003; 3.0 x 12 mm Rebel BMS to pD1 03/27/19 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) Hospital Course and Treatment Consultations 08/13/20 23:39 Consult: Onc/Wound/drug inspector Routine Comment: Summary of Care Provided: Hospitalist note: Discharge summary above reviewed and I concur with above discharge treatment plan. Patient presented to the emergency room because of weakness and lethargy, found to have severe sepsis secondary to right foot ulcer/cellulitis with MRSA osteomyelitis. He was treated with IV antibiotics including IV vancomycin. He underwent a right metatarsal amputation with the excision of the fourth and fifth metatarsals, incision and drainage of the right foot by podiatry medicine. Blood culture showed no growth in 48 hours. Wound culture revealed MRSA. Infectious disease consulted and recommended to keep patient on IV vancomycin for total of 6 weeks of treatment. Other chronic medical problems were stable and patient was continued on his home medications. Patient discharged to [facility] facility in a stable condition, discharged on IV vancomycin as per ID recommendations, discharged on oxygen at 2-3 L which is his baseline at home, plan to follow-up with infectious disease in 2 weeks, follow-up with podiatry medicine in 1 week and recommended follow-up with PCP in 1 week. - Physical Exam General: Alert, Oriented x3, Cooperative, No apparent distress. HEENT: Atraumatic, PERRLA, EOMI. Neck: Supple, No JVD, Negative Carotid Bruits, Trachea Midline, Thyroid Normal. Lungs: Diminished breath sounds bilateral, otherwise clear, No rhonchi, No wheeze, No rales. Cardiovascular: Regular rate, Regular Rhythm, Normal S1, Normal S2, PMI Normal. Abdomen: Bowel Sounds Present, Soft, Non Tender, Non-Distended, No Hepato-splenomegaly. Extremities: Right foot and leg dressed. Status post below left knee amputation. Skin: No rashes, No breakdown Neurological: Cranial nerves are intact. Neuro grossly intact Vital Signs are stable. This note was generated with [employer] dictation software. It may contain incorrect words, spelling, and punctuation that were not noted in checking the note before signing. - Physical Exam Vitals/I&O's: Vital Signs Temp Pulse Resp BP Pulse Ox 98 F 85 15 114/56 L 100 08/17/20 08:30 08/17/20 08:40 08/17/20 08:30 08/17/20 08:40 08/17/20 08:30 Oxygen Flow Rate (L/min) 3 Oxygen Delivery Method Nasal Cannula Weight: 200 lb 13.458 oz Body Mass Index (BMI) 27.2 Finger Stick Blood Glucose 318 Intake and Output for Last 24 Hours 08/15/20 08/16/20 08/17/20 23:59 23:59 23:59 Intake Total 480 / 530 1320 / 1320 650 / 650 Output Total 700 / 700 500 / 500 500 / 500 Balance -220 / -170 820 / 820 150 / 150 Microbiology Past 72 Hours 08/15/20 Unknown Wound - Right Foot Gram Stain - Final 08/15/20 Unknown Wound - Right Foot Wound Culture - Final Meth. resistant Staph. aureus 08/15/20 Unknown Wound - Right Foot Anaerobic Culture - Final No anaerobic bacteria isolated. 08/15/20 Unknown Bone - Right Foot Gram Stain - Final 08/15/20 Unknown Bone - Right Foot Wound Culture - Final Meth. resistant Staph. aureus 08/15/20 Unknown Bone - Right Foot Anaerobic Culture - Final No anaerobic bacteria isolated. 08/15/20 Unknown Bone - Right Foot Gram Stain - Final 08/15/20 Unknown Bone - Right Foot Wound Culture - Preliminary Staphylococcus aureus 08/15/20 Unknown Bone - Right Foot Anaerobic Culture - Final No anaerobic bacteria isolated. 08/13/20 20:13 Blood Culture (Wb) - Anticubital Left Blood Culture - Preliminary No growth in 48 hours. 08/13/20 20:23 Blood Culture (Wb) - Venous Blood Culture - Preliminary No growth in 48 hours. 08/13/20 20:40 Urine, Clean Catch Urine Culture - Final Culture exhibits no growth. Laboratory Results 08/16/20 13:12: POC Glucose 272 H 08/16/20 16:23: POC Glucose 274 H 08/16/20 22:48: POC Glucose 236 H 08/17/20 05:30: WBC 10.7, RBC 2.79 L, Hgb 8.4 L, Hct 27.3 L, MCV 97.8 H, MCH 30.1, MCHC 30.8 L, RDW Std Deviation 50.5 H, RDW Coeff of Jac 14.3, Plt Count 265, MPV 9.1 08/17/20 05:30: Sodium 133 L, Potassium 4.0, Chloride 98, Carbon Dioxide 29.0, Anion Gap 6, BUN 29 H, Creatinine 1.10, Estim Creat Clear Calc 65.65, Est GFR (MDRD) Af Amer 84, Est GFR (MDRD) Non-Af 70, BUN/Creatinine Ratio 26.4 H, Glucose 220 H, Calcium 8.2 L 08/17/20 06:49: POC Glucose 201 H 08/17/20 10:50: Vancomycin Trough 25.7 H 08/17/20 11:29: POC Glucose 196 H Current Medications Acetaminophen (Acetaminophen 500 Mg Tablet) 1,000 mg PO TID PRN PRN PRN Reason: PAIN 1-10 OR TEMP Last Admin: 08/17/20 08:25 Dose: 1,000 mg Documented by: Aspirin (Aspirin E.C. 81 Mg Tablet) 81 mg PO DAILY [facility] Last Admin: 08/17/20 08:41 Dose: 81 mg Documented by: Bumetanide (Bumetanide 2 Mg Tablet) 2 mg PO DAILY [facility] Last Admin: 08/17/20 08:41 Dose: 2 mg Documented by: Clopidogrel Bisulfate (Clopidogrel Bisulfate 75 Mg Tablet) 75 mg PO DAILY [facility] Last Admin: 08/17/20 08:40 Dose: 75 mg Documented by: Dextrose (Dextrose 50%-Water 25 Gm/50 Ml Disp.Syrin) 0 gm IV X1 PRN; Protocol PRN Reason: Hypoglycemia Docusate Sodium (Docusate Sodium 100 Mg Capsule) 200 mg PO BID PRN PRN PRN Reason: Constipation Enoxaparin Sodium (Enoxaparin 40 Mg/0.4 Ml Syringe) 40 mg SC DAILY [facility] Last Admin: 08/17/20 08:40 Dose: 40 mg Documented by: Glucagon (Glucagon 1 Mg/Ml Syringe) 1 mg IM .X1 PRN PRN Reason: Hypoglycemia Vancomycin IV Pharmacy to Dose (1 ea/ Sodium Chloride) 500 mls @ 250 mls/hr IV X1 PRN; Protocol PRN Reason: Rx to Dose Sodium Chloride () 250 mls @ 15 mls/hr IV .[id number] PRN PRN Reason: Additional IVPB Infusion Vancomycin HCl (Vancomycin) 1,000 mg in 200 mls @ 200 mls/hr IV Q12H [facility] Last Admin: 08/17/20 11:35 Dose: 200 mls/hr Documented by: Insulin Glargine (Insulin Glargine 100 Units/Ml Pen) 15 units SC QPM [facility] Last Admin: 08/16/20 22:49 Dose: 15 units Documented by: Insulin Glargine (Insulin Glargine 100 Units/Ml Pen) 10 units SC BREAKFAST [facility] Last Admin: 08/17/20 08:42 Dose: 10 units Documented by: Insulin Human Lispro (Insulin Lispro 100 Unit/Ml Insuln.Pen) 0 unit SC ACHS [facility]; Protocol Last Admin: 08/17/20 11:36 Dose: 2 u Documented by: Levothyroxine Sodium (Levothyroxine 100 Mcg Tablet) 200 mcg PO DAILY@0600 [facility] Last Admin: 08/17/20 06:54 Dose: 200 mcg Documented by: Lisinopril (Lisinopril 2.5 Mg Tablet) 2.5 mg PO DAILY [facility] Last Admin: 08/17/20 08:41 Dose: 2.5 mg Documented by: Metoprolol Succinate (Metoprolol(Xl)Succ 50 Mg Tablet) 50 mg PO DAILY [facility] Last Admin: 08/17/20 08:40 Dose: 50 mg Documented by: Nitroglycerin (Nitroglycerin (Inpatient Use) 0.4 Mg Tab.Subl) 0.4 mg SUBLINGUAL Q5M PRN PRN Reason: CARDIAC/CHEST PAIN Nutritional Formula (Lactose Free) (Glucerna Shake 120 Ml Liquid) 120 ml PO TIDCM [facility] Last Admin: 08/17/20 11:36 Dose: 120 ml Documented by: Ondansetron HCl (Ondansetron 4 Mg/2 Ml Vial) 4 mg IV Q8H PRN PRN PRN Reason: NAUSEA/VOMITING Oxycodone HCl (Oxycodone 5 Mg Tablet) 5 mg PO Q4H PRN PRN PRN Reason: Pain Score 1-10 Last Admin: 08/17/20 08:25 Dose: 5 mg Documented by: Pantoprazole Sodium (Pantoprazole Sodium 40 Mg Tablet) 40 mg PO DAILY [facility] Last Admin: 08/17/20 08:40 Dose: 40 mg Documented by: Polyethylene Glycol (Polyethylene Glycol 3350 17 Gm Packet) 17 gm PO DAILY [facility] Last Admin: 08/17/20 08:51 Dose: 17 gm Documented by: Pravastatin Sodium (Pravastatin 40 Mg Tablet) 40 mg PO QHS [facility] Last Admin: 08/16/20 22:51 Dose: 40 mg Documented by: Prednisone (Prednisone 5 Mg Tablet) [facility] Last Admin: 08/17/20 08:41 Dose: 2.5 mg Documented by: Sodium Chloride (0.9% Saline Lock 10 Ml Syringe) 10 - 40 ml IV UD PRN PRN Reason: SALINE FLUSH Last Admin: 08/17/20 11:35 Dose: 10 ml Documented by: Disposition: Care Home facility Minutes spent on discharge:: 32 Patient Condition:: Stable Meaningful Use Info Meaningful Use Diagnoses (Choose all that apply): None applicable Inpatient E&M: 78246 Disch Hosp
[2020-08-17 11:35] LABS: Bedside Glucose 196 mg/dL (70-110)
[2020-08-17] MEDS: Vancomycin IV 1,000 MG/200 ML BAG 200 MG IV (11:35)
[2020-08-17] MEDS: 0.9% Saline Lock 10 ML Syringe IV (11:35)
[2020-08-17 11:55] LABS: Vancomycin, Trough Level 25.7 ug/mL (5.0-15.0)
--- NOTE | 2020-08-17 12:35 | PCM.RX.CS ---
Consult Pharmacy has been consulted to manage selected antiobiotic: Vancomycin Type of Consult: Follow-up Suspected Infection: Osteomyelitis Labs: Sodium 133 mmol/L (136-145) L 08/17/20 05:30 Potassium 4.0 mmol/L (3.5-5.1) 08/17/20 05:30 Chloride 98 mmol/L (98-107) 08/17/20 05:30 Carbon Dioxide 29.0 mmol/L (21.0-32.0) 08/17/20 05:30 Anion Gap 6 (5-15) 08/17/20 05:30 BUN 29 mg/dL (7-18) H 08/17/20 05:30 Creatinine 1.10 mg/dL (0.70-1.30) 08/17/20 05:30 Est GFR (MDRD) Af Amer 84 mL/min (>60) 08/17/20 05:30 Est GFR (MDRD) Non-Af 70 mL/min (>60) 08/17/20 05:30 BUN/Creatinine Ratio 26.4 RATIO (10-20) H 08/17/20 05:30 Glucose 220 mg/dL (74-106) H 08/17/20 05:30 Vancomycin Trough 25.7 ug/mL (5.0-15.0) H 08/17/20 10:50 Random Vancomycin 17.3 ug/mL (0.0-15.0) H 08/15/20 21:43 Microbiology: Microbiology 08/17/20 11:30 Mucosa - Nose SARS-CoV-2 Antigen (Rapid) - Final 08/15/20 Unknown Wound - Right Foot Gram Stain - Final 08/15/20 Unknown Wound - Right Foot Wound Culture - Final Meth. resistant Staph. aureus 08/15/20 Unknown Wound - Right Foot Anaerobic Culture - Final No anaerobic bacteria isolated. 08/15/20 Unknown Bone - Right Foot Gram Stain - Final 08/15/20 Unknown Bone - Right Foot Wound Culture - Final Meth. resistant Staph. aureus 08/15/20 Unknown Bone - Right Foot Anaerobic Culture - Final No anaerobic bacteria isolated. 08/15/20 Unknown Bone - Right Foot Gram Stain - Final 08/15/20 Unknown Bone - Right Foot Wound Culture - Preliminary Staphylococcus aureus 08/15/20 Unknown Bone - Right Foot Anaerobic Culture - Final No anaerobic bacteria isolated. 08/13/20 20:13 Blood Culture (Wb) - Anticubital Left Blood Culture - Preliminary No growth in 48 hours. 08/13/20 20:23 Blood Culture (Wb) - Venous Blood Culture - Preliminary No growth in 48 hours. 08/13/20 20:40 Urine, Clean Catch Urine Culture - Final Culture exhibits no growth. 08/13/20 20:45 Mucosa - Nose SARS-CoV-2 Antigen (Rapid) - Final Goal Trough: 15-20 mcg/mL Pharmacy Plan for Drug Dosing: VANCOMYCIN LEVEL RECEIVED Current Vancomycin Dose: 1000mg IV Q12hr Number of Doses Received: 4 Vancomycin Level: 25.7 Hours Since Last Dose: 12hr Renal Function: 1.1 Renal Function Trend: stable Lab/Micro: (+) MRSA in bone and wound Cx Vancomycin Plan/Comments: HOLDING current dose of vancomycin. Will get a random level tomorrow ~24hrs from last administered dose. Also discussed case with Dr. Glass as pt has a DC order in to go to an ECF. Plan would be to get another vancomycin level tomorrow and hold subsequent doses at [facility] until level <20. Will decrease dose at that time to 750mg IV Q12hr. ID in agreement with plan, called hospitalist service to make them aware as well, and to update DC orders. Will enter a trough just in case pt still here tomorrow, and DC current scheduled vancomycin order. Pending Level: *RANDOM* level 08/18/20 @1100 Pharmacy Service will continue to monitor and adjust dosing as required.
--- NOTE | 2020-08-17 12:49 | NURSING ---
wound photo: right lateral foot
--- NOTE | 2020-08-17 13:10 | PCM.PROGNOTE ---
Patient Problems: Active and Suspected Problems (Last Updated 08/16/20 @ 13:[address] Eda Morin MD) Osteomyelitis of right foot (Acute) Ulcer of right foot with necrosis of bone (Acute) Subjective: Patient was seen today for right foot. Patient relates he will not be able to stay off of his foot. He has no complaints of fever, chills, nausea or vomiting. - Physical Exam Vitals/I&O's: Vital Signs Temp Pulse Resp BP Pulse Ox 98 F 85 15 114/56 L 100 08/17/20 08:30 08/17/20 08:40 08/17/20 08:30 08/17/20 08:40 08/17/20 08:30 Oxygen Flow Rate (L/min) 3 Oxygen Delivery Method Nasal Cannula Weight: 91.1 kg Body Mass Index (BMI) 27.2 Finger Stick Blood Glucose 318 Intake and Output for Last 24 Hours 08/15/20 08/16/20 08/17/20 23:59 23:59 23:59 Intake Total 480 / 530 1320 / 1320 1500 / 1500 Output Total 700 / 700 500 / 500 975 / 975 Balance -220 / -170 820 / 820 525 / 525 General: Alert, Oriented x3, Cooperative, No apparent distress Extremities: - - reviewed wound photo from today, right foot stable at this time. Microbiology Past 72 Hours 08/17/20 11:30 Mucosa - Nose SARS-CoV-2 Antigen (Rapid) - Final 08/15/20 Unknown Wound - Right Foot Gram Stain - Final 08/15/20 Unknown Wound - Right Foot Wound Culture - Final Meth. resistant Staph. aureus 08/15/20 Unknown Wound - Right Foot Anaerobic Culture - Final No anaerobic bacteria isolated. 08/15/20 Unknown Bone - Right Foot Gram Stain - Final 08/15/20 Unknown Bone - Right Foot Wound Culture - Final Meth. resistant Staph. aureus 08/15/20 Unknown Bone - Right Foot Anaerobic Culture - Final No anaerobic bacteria isolated. 08/15/20 Unknown Bone - Right Foot Gram Stain - Final 08/15/20 Unknown Bone - Right Foot Wound Culture - Preliminary Staphylococcus aureus 08/15/20 Unknown Bone - Right Foot Anaerobic Culture - Final No anaerobic bacteria isolated. 08/13/20 20:13 Blood Culture (Wb) - Anticubital Left Blood Culture - Preliminary No growth in 48 hours. 08/13/20 20:23 Blood Culture (Wb) - Venous Blood Culture - Preliminary No growth in 48 hours. 08/13/20 20:40 Urine, Clean Catch Urine Culture - Final Culture exhibits no growth. Laboratory Results 08/16/20 13:12: POC Glucose 272 H 08/16/20 16:23: POC Glucose 274 H 08/16/20 22:48: POC Glucose 236 H 08/17/20 05:30: WBC 10.7, RBC 2.79 L, Hgb 8.4 L, Hct 27.3 L, MCV 97.8 H, MCH 30.1, MCHC 30.8 L, RDW Std Deviation 50.5 H, RDW Coeff of Jac 14.3, Plt Count 265, MPV 9.1 08/17/20 05:30: Sodium 133 L, Potassium 4.0, Chloride 98, Carbon Dioxide 29.0, Anion Gap 6, BUN 29 H, Creatinine 1.10, Estim Creat Clear Calc 65.65, Est GFR (MDRD) Af Amer 84, Est GFR (MDRD) Non-Af 70, BUN/Creatinine Ratio 26.4 H, Glucose 220 H, Calcium 8.2 L 08/17/20 06:49: POC Glucose 201 H 08/17/20 10:50: Vancomycin Trough 25.7 H 08/17/20 11:29: POC Glucose 196 H Current Medications Acetaminophen (Acetaminophen 500 Mg Tablet) 1,000 mg PO TID PRN PRN PRN Reason: PAIN 1-10 OR TEMP Last Admin: 08/17/20 08:25 Dose: 1,000 mg Documented by: Aspirin (Aspirin E.C. 81 Mg Tablet) 81 mg PO DAILY ON LICENSE OF [facility] Last Admin: 08/17/20 08:41 Dose: 81 mg Documented by: Bumetanide (Bumetanide 2 Mg Tablet) 2 mg PO DAILY ON LICENSE OF [facility] Last Admin: 08/17/20 08:41 Dose: 2 mg Documented by: Clopidogrel Bisulfate (Clopidogrel Bisulfate 75 Mg Tablet) 75 mg PO DAILY ON LICENSE OF [facility] Last Admin: 08/17/20 08:40 Dose: 75 mg Documented by: Dextrose (Dextrose 50%-Water 25 Gm/50 Ml Disp.Syrin) 0 gm IV X1 PRN; Protocol PRN Reason: Hypoglycemia Docusate Sodium (Docusate Sodium 100 Mg Capsule) 200 mg PO BID PRN PRN PRN Reason: Constipation Enoxaparin Sodium (Enoxaparin 40 Mg/0.4 Ml Syringe) 40 mg SC DAILY ON LICENSE OF [facility] Last Admin: 08/17/20 08:40 Dose: 40 mg Documented by: Glucagon (Glucagon 1 Mg/Ml Syringe) 1 mg IM .X1 PRN PRN Reason: Hypoglycemia Vancomycin IV Pharmacy to Dose (1 ea/ Sodium Chloride) 500 mls @ 250 mls/hr IV X1 PRN; Protocol PRN Reason: Rx to Dose Sodium Chloride () 250 mls @ 15 mls/hr IV .[id number] PRN PRN Reason: Additional IVPB Infusion Insulin Glargine (Insulin Glargine 100 Units/Ml Pen) 15 units SC QPM ON LICENSE OF [facility] Last Admin: 08/16/20 22:49 Dose: 15 units Documented by: Insulin Glargine (Insulin Glargine 100 Units/Ml Pen) 10 units SC BREAKFAST ON LICENSE OF [facility] Last Admin: 08/17/20 08:42 Dose: 10 units Documented by: Insulin Human Lispro (Insulin Lispro 100 Unit/Ml Insuln.Pen) 0 unit SC ACHS ON LICENSE OF [facility]; Protocol Last Admin: 08/17/20 11:36 Dose: 2 u Documented by: Levothyroxine Sodium (Levothyroxine 100 Mcg Tablet) 200 mcg PO DAILY@0600 ON LICENSE OF [facility] Last Admin: 08/17/20 06:54 Dose: 200 mcg Documented by: Lisinopril (Lisinopril 2.5 Mg Tablet) 2.5 mg PO DAILY ON LICENSE OF [facility] Last Admin: 08/17/20 08:41 Dose: 2.5 mg Documented by: Metoprolol Succinate (Metoprolol(Xl)Succ 50 Mg Tablet) 50 mg PO DAILY ON LICENSE OF [facility] Last Admin: 08/17/20 08:40 Dose: 50 mg Documented by: Nitroglycerin (Nitroglycerin (Inpatient Use) 0.4 Mg Tab.Subl) 0.4 mg SUBLINGUAL Q5M PRN PRN Reason: CARDIAC/CHEST PAIN Nutritional Formula (Lactose Free) (Glucerna Shake 120 Ml Liquid) 120 ml PO TIDCM ON LICENSE OF [facility] Last Admin: 08/17/20 11:36 Dose: 120 ml Documented by: Ondansetron HCl (Ondansetron 4 Mg/2 Ml Vial) 4 mg IV Q8H PRN PRN PRN Reason: NAUSEA/VOMITING Oxycodone HCl (Oxycodone 5 Mg Tablet) 5 mg PO Q4H PRN PRN PRN Reason: Pain Score 1-10 Last Admin: 08/17/20 12:44 Dose: 5 mg Documented by: Pantoprazole Sodium (Pantoprazole Sodium 40 Mg Tablet) 40 mg PO DAILY ON LICENSE OF [facility] Last Admin: 08/17/20 08:40 Dose: 40 mg Documented by: Polyethylene Glycol (Polyethylene Glycol 3350 17 Gm Packet) 17 gm PO DAILY ON LICENSE OF [facility] Last Admin: 08/17/20 08:51 Dose: 17 gm Documented by: Pravastatin Sodium (Pravastatin 40 Mg Tablet) 40 mg PO QHS ON LICENSE OF [facility] Last Admin: 08/16/20 22:51 Dose: 40 mg Documented by: Prednisone (Prednisone 5 Mg Tablet) [facility] Last Admin: 08/17/20 08:41 Dose: 2.5 mg Documented by: Sodium Chloride (0.9% Saline Lock 10 Ml Syringe) 10 - 40 ml IV UD PRN PRN Reason: SALINE FLUSH Last Admin: 08/17/20 11:35 Dose: 10 ml Documented by: Medical Necessity - Tobacco Use Smoking Status: Former smoker Assessment/Plan All Active Problems (Last Updated 08/16/20 @ 13:[address] Eda Morin MD) Osteomyelitis of right foot (Acute) Ulcer of right foot with necrosis of bone (Acute) Right foot ulceration, Right foot cellulitis-MRSA w/ suspected osteomyelitis s/p revision [facility] on 08/15/2020 Diabetes with neuropathy Unstageable pressure ulcer right lateral ankle History of BKA left foot, TMA right foot Significant lower extremity PAD Heart failure with ejection fraction of 19% Patient seen and examined, reviewed diagnostic data. s/p debridement/revision TMA on . Foot stable. Continue with local care. Reviewed cultures - MRSA, patient on IV antibiotics - dianne, Dr. Lange on consult. Wound care right foot: Aquacel Ag, gauze, kerlix and light milton dressing changes daily. Keep offloaded at all times. No weightbearing right foot. Patient with significant right LE PAD - patient follows with Dr. Busch, per discussion with Dr. Busch no further intervention possible. Discussed with patient about nursing facility placement, and he is on board but prefers TCU if possible. Please contact if any questions or concerns
--- NOTE | 2020-08-17 14:10 | PHA.DC.MR ---
Pharmacy Service has performed discharge medication reconciliation for this patient. The patient's discharge medication list was reviewed for discrepancies and discrepancies were resolved. Vancomycin trough came back high, d/c summary updated to hold vancomycin doses until trough is <20, then begin dose of 750mg q12h per Dr. Glass. Update written via [facility] on paper script for richard. Home Medications acetaminophen 500 mg tablet 1,000 mg PO 4X/DAY tab 08/05/19 levothyroxine 200 mcg tablet 200 mcg PO DAILY 08/05/19 omeprazole 40 mg capsule,delayed release 40 mg PO DAILY 08/05/19 prednisone 2.5 mg tablet 2.5 mg PO DAILY 08/05/19 aspirin 81 mg tablet,delayed release 81 mg PO DAILY 12/17/19 Insulin Glargine,Hum.rec.anlog [Lantus] 15 unit SQ BID 06/09/20 Insulin Regular, Human [Novolin R] See Protocol SC QHS 06/09/20 Bumetanide 2 mg PO DAILY 06/11/20 Insulin Regular, Human [Novolin R] 10 units SC BREAKFAST 06/11/20 Insulin Regular, Human [Novolin R] 20 units SC DINNER 06/11/20 Clopidogrel Bisulfate [Clopidogrel] 75 mg PO DAILY 08/06/20 Lisinopril 2.5 mg PO DAILY 08/06/20 Metoprolol(XL)Succ [Toprol Xl (Beta Kavita)] 50 mg PO DAILY 08/06/20 Pravastatin Sodium 40 mg PO QHS 08/06/20 Oxycodone [Oxyir] 5 mg PO Q4H PRN PRN 2 Days #5 tab 08/17/20 Polyethylene Glycol 3350 [Miralax] 17 gm PO DAILY packet 08/17/20 Vancomycin IV [Vancomycin] 1,000 mg IV Q12H 40 Days #80 bag 08/17/20
--- NOTE | 2020-08-17 14:14 | CASEMGMT ---
SW spoke with patient and his . Patient was provided a list of SNF providers including quality and resource use data and consistent with the patient?s preferred geographic region, medical needs, and insurance network. Their first choice is [facility]. [facility], 2. [facility] 3. [facility]. CRISTINA told them SW will work on referral and let them know when SW has more information. SW called [facility] with referral and also faxed information. They responded and said they can take patient. SW let patient know this information. Orders were faxed to [facility]. Patient wanted to leave after dinner. CRISTINA arranged for patient to get picked up at 1800 via cot through [facility]. CRISTINA notified [facility] at [facility], and secretary book keeper. SW will also let patient and his know. Plan: d/c to [facility] under skilled level of care on a convalescent stay. [facility] transported him via cot at 1800. Jayleen HAIDER
[2020-08-17 17:11] LABS: Bedside Glucose 266 mg/dL (70-110)
--- NOTE | 2020-08-17 18:37 | NURSING ---
report given to jarrod garcia at [facility]
== END 2020-08-17 18:25 | DRG 854 ==
LOC: ED 20:05 → PCU 22:19
PROVIDERS: Internal Medicine; Nurse Practitioner Family; Podiatrist Foot & Ankle Surgery; Admitting Provider Student in an Organized Health Care Education/Training Program; Emergency Provider Emergency Medicine; PCP Family Medicine; Visit Provider Hospitalist
PROC: 0Y6M0ZD Detachment at Right Foot, Partial 4th Ray, Open Approach (ICD-10-PCS; principal; 2020-08-15 08:00)
DX: A41.02 Sepsis due to Methicillin resistant Staphylococcus aureus (principal); L03.115 Cellulitis of right lower limb; M86.171 Other acute osteomyelitis, right ankle and foot; I50.22 Chronic systolic (congestive) heart failure; E46 Unspecified protein-calorie malnutrition; J96.11 Chronic respiratory failure with hypoxia; E87.2 Acidosis; R65.20 Severe sepsis without septic shock; E11.42 Type 2 diabetes mellitus with diabetic polyneuropathy; E11.51 Type 2 diabetes mellitus with diabetic peripheral angiopathy without gangrene; E11.65 Type 2 diabetes mellitus with hyperglycemia; E11.621 Type 2 diabetes mellitus with foot ulcer; L97.514 Non-pressure chronic ulcer of other part of right foot with necrosis of bone; I25.10 Atherosclerotic heart disease of native coronary artery without angina pectoris; I36.1 Nonrheumatic tricuspid (valve) insufficiency; I25.5 Ischemic cardiomyopathy; E03.9 Hypothyroidism, unspecified; D53.9 Nutritional anemia, unspecified; D63.8 Anemia in other chronic diseases classified elsewhere; J98.6 Disorders of diaphragm; J44.9 Chronic obstructive pulmonary disease, unspecified; G47.33 Obstructive sleep apnea (adult) (pediatric); Z95.810 Presence of automatic (implantable) cardiac defibrillator; Z95.1 Presence of aortocoronary bypass graft; Z95.5 Presence of coronary angioplasty implant and graft; Z97.4 Presence of external hearing-aid; Z89.512 Acquired absence of left leg below knee; Z89.431 Acquired absence of right foot; Z86.14 Personal history of Methicillin resistant Staphylococcus aureus infection; Z79.02 Long term (current) use of antithrombotics/antiplatelets; Z79.4 Long term (current) use of insulin; Z79.82 Long term (current) use of aspirin; Z79.890 Hormone replacement therapy; Z99.81 Dependence on supplemental oxygen; Z79.899 Other long term (current) drug therapy; Z87.891 Personal history of nicotine dependence
CPT/HCPCS: 11043; 36415; 36569; 71045; 73630; 80048; 80053; 80202; 81001; 82962; 83605; 84484; 85025; 85027; 85610; 85652; 85730; 86140; 87040; 87070; 87075; 87077; 87086; 87102; 87186; 87205; 87206; 87426; 87640; 88305; 88311; 93005; 97162; 97166; 97530; 97802; 97803; 99285; J7030; J7040; J7050; A4216; J2405

== ENCOUNTER 2020-08-25 09:00 | Outpatient (RCR) | payer SELFPAY ==
[2020-08-02 00:32] VITALS: BP 120/50; PULSE 72; RESP 18; TEMP 36.1; BMI 29.9
[2020-08-03 13:03] VITALS: BMI 27.1
[2020-08-04 11:03] VITALS: BP 109/73; PULSE 87; RESP 24; TEMP 36.2; BMI 27.1
--- NOTE | 2020-08-04 12:03 | PCM.WC.PN ---
(1) Ulcer of left lower extremity with fat layer exposed Status: Resolved Code(s): L97.922 - Non-pressure chronic ulcer of unspecified part of left lower leg with fat layer exposed (2) Below-knee amputation of left lower extremity Status: Chronic Code(s): S88.112A - Complete traumatic amputation at level between knee and ankle, left lower leg, initial encounter (3) Ulcer of right foot with necrosis of bone Status: Chronic Code(s): L97.514 - Non-pressure chronic ulcer of other part of right foot with necrosis of bone (4) Amputation of right foot Status: Chronic Qualifiers: Code(s): S98.911A - Complete traumatic amputation of right foot, level unspecified, initial encounter Comment: transmetatarsal amputation (5) Other specified peripheral vascular diseases Status: Chronic Code(s): I73.89 - Other specified peripheral vascular diseases (6) Type 2 diabetes mellitus with diabetic polyneuropathy Status: Chronic Code(s): E11.42 - Type 2 diabetes mellitus with diabetic polyneuropathy (7) Delayed wound healing Status: Chronic Code(s): T14.8XXD - Other injury of unspecified body region, subsequent encounter Type of Wound Date of Service: 08/04/20 Chief Complaint: Follow-up right lateral diabetic foot ulcer History of Wound: 74-year-old male with a left below knee amputation and right transmetatarsal amp follows up for ulcer of lateral foot. He was previously hospitalized and treated for osteomyelitis of the right foot that has exposed bone and radiographic changes. He denies pain. He denies fever, chills, nausea, vomiting. He had delayed primary closure and debridement performed to the right foot last week and had to change the dressing 1 time. He wears a CAM walker to mild ambulation at home to use the restroom, ect. He was previously completing antibiotic course as advised by infectious disease for treatment of osteomyelitis which has since been treated and stabilized. Skin discontinuity was identified to the left below-knee amputation stump site last week and he has been performing dressing changes with hydrogel as advised. He denies drainage. This site is continually sensitive and moist with prolonged use of his stump sleeve. He tries to let this air out during the day. Progress of Wound: stable right foot. Healed left leg ulcer - Physical Exam Vital Signs Temp Pulse Resp BP 97.2 F L 87 24 H 109/73 08/04/20 11:03 08/04/20 11:03 08/04/20 11:03 08/04/20 11:03 General: Alert, Oriented x3, Cooperative, No apparent distress HEENT: Atraumatic Extremities: No cyanosis, Capillary Refill Less than 3 Seconds, No Calf Tenderness, Diminished Peripheral Pulses, Edema - mild Skin: Ulcer/ Wound - No erythema, purulence, infection or drainage bilateral. The delayed primary closure site on the right foot remains well aligned and coapted there is mild tissue moisture noted without bogginess or fluctuance or drainage on expression. Full epithelialization is noted to the left BKA site, - - His skin is atrophic and hairless bilateral Wound Measurements and Assessment WC - Nurse 1 - General Ulcer Measurement Start: 08/04/20 10:58 Freq: Status: Active Protocol: Activity Type Activity Date Activity User E-Sign Co-Sign Detail Recorded Client Recorded Date Recorded By Document 08/04/20 11:03 CHANDRAKANT [id number] 08/04/20 11:08 DL 08/04/20 11:03 Wound Center Nurse 1 [Ulcer Assessment] 5 left BKA stump -Current Size (cm) - Length 0.1 -Current Size (cm) - Width 0.1 -Current Size (cm) - Depth 0.1 -Total Square Cm 0.01 -Photo Taken No -Exudate Amt None Present -Wound Margin Flat & Intact -Granulation Amt Large (67-100%) -Granulation Quality [place] -Necrosis Amt None Present (0 %) -Structure Exposed N/A -Texture (Allison-wound Skin Appearance) Scarring -Moisture (Allison-wound Skin Appearance No Abnormality ) -Color (Allison-wound Skin Appearance) No Abnormality -Temperature (Allison-wound Skin No Abnormality Appearance) (Pt Warm) -Tenderness on Palpation (Allison-wound No Skin Appearance) -Ulcer Cleansing Rinsed/ Irrigated with Saline -Foul Odor after Cleansing No -Anesthetic Used 4% Lidocaine Solution #3- R LAT FOOT -Current Size (cm) - Length 0.1 -Current Size (cm) - Width 0.1 -Current Size (cm) - Depth 0.1 -Total Square Cm 0.01 -Photo Taken No -Exudate Amt Small -Exudate Type Serosanguineous -Wound Margin Indistinct, Non -Visible -Granulation Amt Large (67-100%) -Granulation Quality [place] -Necrosis Amt None Present (0 %) -Structure Exposed N/A -Texture (Allison-wound Skin Appearance) Scarring -Moisture (Allison-wound Skin Appearance Maceration ) -Color (Allison-wound Skin Appearance) No Abnormality -Temperature (Allison-wound Skin No Abnormality Appearance) (Pt Warm) -Tenderness on Palpation (Allison-wound No Skin Appearance) -Ulcer Cleansing Rinsed/ Irrigated with Saline -Anesthetic Used 4% Lidocaine Solution GEOVANNI - Nurse 2 - General Ulcer CM Notes Start: 08/04/20 10:58 Freq: Status: Active Protocol: Activity Type Activity Date Activity User E-Sign Co-Sign Detail Recorded Client Recorded Date Recorded By Document 08/04/20 11:35 ISAURA [id number] 08/04/20 11:42 ISAURA 08/04/20 11:35 Wound Center Nurse 2 [Procedure/Treatment] 5 left BKA stump -Correct Patient No -Correct Side, Site, Position No -Correct Procedure No -Procedure Performed No -Post Debridement (cm) - Length 0 -Post Debridement (cm) - Width 0 -Post Debridement (cm) - Depth 0 -Total Square (Post) (cm) 0 -Area of Debridement (cm) - Length 0 -Area of Debridement (cm) - Width 0 -Total Square (Area) (cm) 0 -Tunneling No -Undermining/Tunneling No -Circular Undermining No -Wound/Ulcer Outcome Not Healed -Ulcer Cleansing Rinsed/ Irrigated with Saline -Foul Odor after Cleansing No -Bioengineered Tissue No -Bleeding Controlled with Pressure -Offloading Yes -Type of Offloading Camwalker -Treatment Response Procedure Tolerated Well -Debridement - Subq, 1st 20sq cm No #3- R LAT FOOT -Correct Patient No -Correct Side, Site, Position No -Correct Procedure No -Procedure Performed No -Circular Undermining No -Wound/Ulcer Outcome Not Healed -Bleeding Controlled with Pressure -Offloading Yes -Type of Offloading Camwalker -Treatment Response Procedure Tolerated Well -Debridement - Subq, 1st 20sq cm No [See Physician Procedure note for Specifics] Pain Scale: 0-10 Numeric [Pain] -Is Patient Pain Free? Yes GEOVANNI - Nurse 3 - General Ulcer D/C NN Start: 08/04/20 10:58 Freq: Status: Active Protocol: Activity Type Activity Date Activity User E-Sign Co-Sign Detail Recorded Client Recorded Date Recorded By Document 08/04/20 11:55 CHANDRAKANT [id number] 08/04/20 11:56 DL 08/04/20 11:55 Wound Care Nurse 3 [Wound Dressing] 5 left BKA stump -Ulcer Cleansing Rinsed/ Irrigated with Saline -Foul Odor after Cleansing No -Other Dressing healed -Primary Dressing Covered/Secured Dry Gauze with #3- R LAT FOOT -Ulcer Cleansing Rinsed/ Irrigated with Saline -Foul Odor after Cleansing No -Other Dressing betadine -Primary Dressing Covered/Secured Dry Gauze,Dry with Gauze & Roll Gauze,Secured with Tape [Post Procedure Tolerated] -Treatment Response Procedure Tolerated Well Pain Scale: 0-10 Numeric [Pain] -Is Patient Pain Free? Yes WC - Visit Discharge [Visit Discharge Information] -Discharge Condition Stable -Ambulatory Status Ambulatory,Cane Musculoskeletal: No Tenderness to Palpation of Joints or Extremities, Muscle Wasting, - - Left below-knee amputation. Right transmetatarsal amputation. Compartments are soft to palpate bilateral lower extremities Neurological: - - Lack of epicritic sensation light touch is consistent with his neuropathy status Psych/Mental Status: Normal Affect, Appropriate Debridement Note Post-Debridement Measurements/Treatment WC - Nurse 2 - General Ulcer CM Notes Start: 08/04/20 10:58 Freq: Status: Active Protocol: Activity Type Activity Date Activity User E-Sign Co-Sign Detail Recorded Client Recorded Date Recorded By Document 08/04/20 11:35 ISAURA [id number] 08/04/20 11:42 ISAURA 08/04/20 11:35 Wound Center Nurse 2 5 left BKA stump -Correct Patient No -Correct Side, Site, Position No -Correct Procedure No -Procedure Performed No -Post Debridement (cm) - Length 0 -Post Debridement (cm) - Width 0 -Post Debridement (cm) - Depth 0 -Total Square (Post) (cm) 0 -Area of Debridement (cm) - Length 0 -Area of Debridement (cm) - Width 0 -Total Square (Area) (cm) 0 -Tunneling No -Undermining/Tunneling No -Circular Undermining No -Wound/Ulcer Outcome Not Healed -Ulcer Cleansing Rinsed/ Irrigated with Saline -Foul Odor after Cleansing No -Bioengineered Tissue No -Bleeding Controlled with Pressure -Offloading Yes -Type of Offloading Camwalker -Treatment Response Procedure Tolerated Well -Debridement - Subq, 1st 20sq cm No #3- R LAT FOOT -Correct Patient No -Correct Side, Site, Position No -Correct Procedure No -Procedure Performed No -Circular Undermining No -Wound/Ulcer Outcome Not Healed -Bleeding Controlled with Pressure -Offloading Yes -Type of Offloading Camwalker -Treatment Response Procedure Tolerated Well -Debridement - Subq, 1st 20sq cm No Pain Scale: 0-10 Numeric Is Patient Pain Free? Yes - Nurse 3 - General Ulcer D/C NN Start: 08/04/20 10:58 Freq: Status: Active Protocol: Activity Type Activity Date Activity User E-Sign Co-Sign Detail Recorded Client Recorded Date Recorded By Document 08/04/20 11:55 DL [id number] 08/04/20 11:56 DL 08/04/20 11:55 Wound Care Nurse 3 5 left BKA stump -Ulcer Cleansing Rinsed/ Irrigated with Saline -Foul Odor after Cleansing No -Other Dressing healed -Primary Dressing Covered/Secured with Dry Gauze #3- R LAT FOOT -Ulcer Cleansing Rinsed/ Irrigated with Saline -Foul Odor after Cleansing No -Other Dressing betadine -Primary Dressing Covered/Secured with Dry Gauze,Dry Gauze & Roll Gauze,Secured with Tape Treatment Response Procedure Tolerated Well Pain Scale: 0-10 Numeric Is Patient Pain Free? Yes - Visit Discharge Discharge Condition Stable Ambulatory Status Ambulatory,Cane Wound debrided: foot Laterality: Right No debridement was completed today - delayed primary closure site is intact Assessment/Plan Active Problems (Last Reviewed 08/03/20 @ 13:04 by Elsie Wagner) Below-knee amputation of left lower extremity (Chronic) 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) Amputation of right foot (Chronic) transmetatarsal amputation Other specified peripheral vascular diseases (Chronic) Type 2 diabetes mellitus with diabetic polyneuropathy (Chronic) Delayed wound healing (Chronic) Assessment: Right DFU (kerr grade 3) at transmetatarsal amputation site;now delayed primary closure. healed left leg ulcer at below knee amputation site. Peripheral vascular disease. Coronary artery disease (EF ~ 19 %). Diabetes with insulin dependency. Polyneuropathy. Osteomyelitis right foot. malnutrition suspected. Chronic kidney disease on hemodialysis Plan: I reviewed and discussed his case. His right foot delayed primary closure site is doing well. I recommend changing the dressing every couple of days with Betadine wet-to-dry gauze. He was reassured no local signs of infection are noted today however he will need to monitor this closely. At this site, he previously had bone excised previously and this was sent to pathology and microbiology. Pathology was negative for acute osteomyelitis and the microbiology demonstrates Enterococcus cloaca. He has completed a course of antibiotics (vancomycin and ertapenam), and there are no longer any signs of local or systemic infection. He was previously under the care of infectious disease physician, Dr. Glass. Revisional operating room surgical intervention is not recommended due to poor cardiac output and compromised vascular status. Hyperbaric oxygen therapy is also not recommended due to EF of ~19%. Vascular intervention was confirmed as guarded with no additional intervention options. His vascular status has been optimized with a recent drug coated balloon angioplasty of the femoral artery with Dr. Busch. To continue offloading with pillow boot while resting in bed and also CAM walker with limited heel touch during short household periods of ambulation. To use assistive device. . To continue to improve glucose management. I recommend segundo or glucerna as a nutritional supplement. Recent foot xrays and labs were reviewed from his hospital admission. . His recently new left leg superficial granular healthy noninfected ulcer is noted on the left leg that was identified last week is now healed. He was advised to apply dry gauze to the site to allow continued skin remodeling. To avoid direct pressure. To continue to work with his prosthetic adjustment specialist. He was advised to remove his sleeve to allow his skin to rest in the middle of the day so moisture does not build up at this friable site. . To return to clinic in one week or sooner if concerns. I answered all of his questions. Note: [employer] speech recognition chief deputy coroner software was used to create portions of this document. Sound-alike and misspelled words, as well as other chief deputy coroner errors may be contained in the documentation. The problems addressed require a moderate decision making level which includes one or more chronic illnesses (w/ exacerbation, progression, or side effects), two or more stable chronic illnesses, one undiagnosed new problem w/ uncertain prognosis, one acute illness with systemic symptoms, or one acute complicated injury. The medical decision making level is moderate. There is noted moderate risk of morbidity after considering this treatment plan and diagnostic data. Considerations were given to prescription management, decisions regarding surgical options, or social determinants of health. ---------madelyn 2020. Reviewed today: Medications and allergies were reviewed and reconciled. It is noted he did have a flu shot this past season. He was a former smoker and currently is not using tobacco products. He has a living will on file. His blood pressure is within the normal range today at 109/73. His body mass index is 29.2. He was advised to follow-up with primary care physician for diet and modification and medical management.
[2020-08-11 10:43] VITALS: BP 99/59; PULSE 106; RESP 18; TEMP 36.1; BMI 27.1
--- NOTE | 2020-08-11 10:54 | WC ---
R lateral foot sutures intact purulent drainage noted form incision
--- NOTE | 2020-08-11 12:50 | PCM.WC.PN ---
(1) Cellulitis of right lower limb Status: Acute Code(s): L03.115 - Cellulitis of right lower limb (2) Ulcer of right foot with necrosis of bone Status: Chronic Code(s): L97.514 - Non-pressure chronic ulcer of other part of right foot with necrosis of bone (3) Ulcer of left lower extremity with fat layer exposed Status: Resolved Code(s): L97.922 - Non-pressure chronic ulcer of unspecified part of left lower leg with fat layer exposed (4) Below-knee amputation of left lower extremity Status: Chronic Code(s): S88.112A - Complete traumatic amputation at level between knee and ankle, left lower leg, initial encounter (5) Amputation of right foot Status: Chronic Qualifiers: Code(s): S98.911A - Complete traumatic amputation of right foot, level unspecified, initial encounter Comment: transmetatarsal amputation (6) Other specified peripheral vascular diseases Status: Chronic Code(s): I73.89 - Other specified peripheral vascular diseases (7) Type 2 diabetes mellitus with diabetic polyneuropathy Status: Chronic Code(s): E11.42 - Type 2 diabetes mellitus with diabetic polyneuropathy (8) Delayed wound healing Status: Chronic Code(s): T14.8XXD - Other injury of unspecified body region, subsequent encounter Type of Wound Date of Service: 08/11/20 Chief Complaint: Follow-up right lateral diabetic foot ulcer. Follow-up left heel leg ulcer at BKA stump site History of Wound: 74-year-old male with a left below knee amputation and right transmetatarsal amp follows up for ulcer of lateral foot. He was previously hospitalized and treated for osteomyelitis of the right foot that has exposed bone and radiographic changes. He denies pain. He denies fever, chills, nausea, vomiting. He had delayed primary closure and debridement performed to the right foot last week and had to change the dressing 1 time. He was previously completing antibiotic course as advised by infectious disease for treatment of osteomyelitis which has since been treated and stabilized. He reports increased drainage and now redness to the right foot the past 2 days. His foot pain has increased to his right foot. He denies known odor. He reports he was recently hospitalized for dehydration and cardiac issues. He denies drainage to his left leg ulcer site and thinks it has remained stable and healed. He is with his today. Progress of Wound: Worsened status right foot. Healed left leg ulcer - Physical Exam Vital Signs Temp Pulse Resp BP 97 F L 106 H 18 99/59 L 08/11/20 10:43 08/11/20 10:43 08/11/20 10:43 08/11/20 10:43 General: Alert, Oriented x3, Cooperative, No apparent distress HEENT: Atraumatic Extremities: No cyanosis, Capillary Refill Less than 3 Seconds - Stump site right transmetatarsal and below-knee amputation left, No Calf Tenderness - Right lower extremity negative Veronica and Kaur. Compartments remain soft to palpate to the right lower extremity, Diminished Peripheral Pulses, Edema - Increased right foot Skin: Ulcer/ Wound - Delayed primary closure site is well approximated with maceration and skin peeling peripherally and diffuse erythema to foot. There is a new skin discontinuity several centimeters proximal to the initial ulcer site with exposed tendon devitalized, fibrinous and seropurulent drainage just locally, - - Upon expression, there is no additional purulence on palpation to the ankle, plantar foot or arch and the drainage appears to be just localized this site. There is no odor. There is no necrosis or eschar. Left lower extremity: Full epithelialization dry and complete skin remodeling noted to prior Wound Measurements and Assessment WC - Nurse 1 - General Ulcer Measurement Start: 08/04/20 10:58 Freq: Status: Active Protocol: Activity Type Activity Date Activity User E-Sign Co-Sign Detail Recorded Client Recorded Date Recorded By Document 08/11/20 10:43 RB [id number] 08/11/20 10:54 RB 08/11/20 10:43 Wound Center Nurse 1 [Ulcer Assessment] #3- R LAT FOOT -Combined with other wound No -Current Size (cm) - Length 0.1 -Current Size (cm) - Width 0.1 -Current Size (cm) - Depth 0.1 -Total Square Cm 0.01 -Tunneling No -Undermining/Tunneling No -Circular Undermining No -Exudate Amt Medium -Exudate Type Purulent -Wound Margin Flat & Intact -Granulation Amt Medium (34-66%) -Granulation Quality [place] -Slough/Fibrin Yes -Necrosis Amt Small (1-33%) -Necrotic Tissue Type Adherent Slough -Structure Exposed N/A -Texture (Allison-wound Skin Appearance) Assessed -Moisture (Allison-wound Skin Appearance No Abnormality ) -Color (Allison-wound Skin Appearance) Assessed -Temperature (Allison-wound Skin No Abnormality Appearance) (Pt Warm) -Tenderness on Palpation (Allison-wound No Skin Appearance) -Ulcer Cleansing Wound Cleanser -Foul Odor after Cleansing No -Anesthetic Used 4% Lidocaine Solution 08/11/20 10:54 Wound Center by Miladis Brock lateral foot sutures intact purulent drainage noted form incision Initialized on 08/11/20 10:54 - END OF NOTE WC - Nurse 2 - General Ulcer CM Notes Start: 08/04/20 10:58 Freq: Status: Active Protocol: Activity Type Activity Date Activity User E-Sign Co-Sign Detail Recorded Client Recorded Date Recorded By Document 08/11/20 11:05 [email or web address] [id number] 08/11/20 11:20 JF 08/11/20 11:05 Wound Center Nurse 2 [Procedure/Treatment] -Time 11:06 -Correct Patient Yes -Correct Side, Site, Position Yes -Correct Procedure Yes -Procedure Performed Yes -Type of Procedure Debridement -Clinical Debridement Subcutaneous -Tissue Removed Subcutaneous -Post Debridement (cm) - Length 2.5 -Post Debridement (cm) - Width 1 -Post Debridement (cm) - Depth 1 -Total Square (Post) (cm) 2.5 -Area of Debridement (cm) - Length 2.5 -Area of Debridement (cm) - Width 1 -Total Square (Area) (cm) 2.5 -Tunneling No -Undermining/Tunneling No -Circular Undermining No -Wound/Ulcer Outcome Not Healed -Ulcer Cleansing Rinsed/ Irrigated with Saline -Foul Odor after Cleansing No -Bioengineered Tissue No -Bleeding Controlled with Pressure -Offloading No -Treatment Response Procedure Tolerated Well -Debridement - Subq, 1st 20sq cm Yes [See Physician Procedure note for Specifics] Pain Scale: 0-10 Numeric [Pain] -Is Patient Pain Free? Yes GEOVANNI - Nurse 3 - General Ulcer D/C NN Start: 08/04/20 10:58 Freq: Status: Active Protocol: Activity Type Activity Date Activity User E-Sign Co-Sign Detail Recorded Client Recorded Date Recorded By Document 08/11/20 11:37 DL [id number] 08/11/20 11:38 DL 08/11/20 11:37 Wound Care Nurse 3 [Wound Dressing] #3- R LAT FOOT -Ulcer Cleansing Rinsed/ Irrigated with Saline -Foul Odor after Cleansing No -Other Dressing moist gauze today -Primary Dressing Covered/Secured Dry Gauze & with Roll Gauze, Secured with Tape [Post Procedure Tolerated] -Treatment Response Procedure Tolerated Well Pain Scale: 0-10 Numeric [Pain] -Is Patient Pain Free? Yes WC - Visit Discharge [Visit Discharge Information] -Discharge Condition Stable -Ambulatory Status Ambulatory, Walker -Transportation Private Auto -Notes: Pt to start Dakins at home. Musculoskeletal: No Tenderness to Palpation of Joints or Extremities, Muscle Wasting, - - No adjacent bogginess or fluctuance on palpation right foot Neurological: - - Lack of normal epicritic sensation is consistent with neuropathy status Psych/Mental Status: Normal Affect, Appropriate Debridement Note Post-Debridement Measurements/Treatment - Nurse 2 - General Ulcer CM Notes Start: 08/04/20 10:58 Freq: Status: Active Protocol: Activity Type Activity Date Activity User E-Sign Co-Sign Detail Recorded Client Recorded Date Recorded By Document 08/04/20 11:35 [id number] 08/04/20 11:42 Document 08/11/20 11:05 [id number] 08/11/20 11:20 08/04/20 08/11/20 11:35 11:05 Wound Center Nurse 2 5 left BKA stump -Correct Patient No -Correct Side, Site, Position No -Correct Procedure No -Procedure Performed No -Post Debridement (cm) - Length 0 -Post Debridement (cm) - Width 0 -Post Debridement (cm) - Depth 0 -Total Square (Post) (cm) 0 -Area of Debridement (cm) - Length 0 -Area of Debridement (cm) - Width 0 -Total Square (Area) (cm) 0 -Tunneling No -Undermining/Tunneling No -Circular Undermining No -Wound/Ulcer Outcome Not Healed -Ulcer Cleansing Rinsed/ Irrigated with Saline -Foul Odor after Cleansing No -Bioengineered Tissue No -Bleeding Controlled with Pressure -Offloading Yes -Type of Offloading Camwalker -Treatment Response Procedure Tolerated Well -Debridement - Subq, 1st 20sq cm No #3- R LAT FOOT -Time 11:06 -Correct Patient No Yes -Correct Side, Site, Position No Yes -Correct Procedure No Yes -Procedure Performed No Yes -Type of Procedure Debridement -Clinical Debridement Subcutaneous -Tissue Removed Subcutaneous -Post Debridement (cm) - Length 2.5 -Post Debridement (cm) - Width 1 -Post Debridement (cm) - Depth 1 -Total Square (Post) (cm) 2.5 -Area of Debridement (cm) - Length 2.5 -Area of Debridement (cm) - Width 1 -Total Square (Area) (cm) 2.5 -Tunneling No -Undermining/Tunneling No -Circular Undermining No No -Wound/Ulcer Outcome Not Healed Not Healed -Ulcer Cleansing Rinsed/ Irrigated with Saline -Foul Odor after Cleansing No -Bioengineered Tissue No -Bleeding Controlled with Pressure Pressure -Offloading Yes No -Type of Offloading Camwalker -Treatment Response Procedure Procedure Tolerated Well Tolerated Well -Debridement - Subq, 1st 20sq cm No Yes Pain Scale: 0-10 Numeric Is Patient Pain Free? Yes Yes - Nurse 3 - General Ulcer D/C NN Start: 08/04/20 10:58 Freq: Status: Active Protocol: Activity Type Activity Date Activity User E-Sign Co-Sign Detail Recorded Client Recorded Date Recorded By Document 08/04/20 11:55 DL [id number] 08/04/20 11:56 DL Document 08/11/20 11:37 DL [id number] 08/11/20 11:38 DL 08/04/20 08/11/20 11:55 11:37 Wound Care Nurse 3 5 left BKA stump -Ulcer Cleansing Rinsed/ Irrigated with Saline -Foul Odor after Cleansing No -Other Dressing healed -Primary Dressing Covered/Secured with Dry Gauze #3- R LAT FOOT -Ulcer Cleansing Rinsed/ Rinsed/ Irrigated with Irrigated with Saline Saline -Foul Odor after Cleansing No No -Other Dressing betadine moist gauze today -Primary Dressing Covered/Secured with Dry Gauze,Dry Dry Gauze & Gauze & Roll Roll Gauze, Gauze,Secured Secured with with Tape Tape Treatment Response Procedure Procedure Tolerated Well Tolerated Well Pain Scale: 0-10 Numeric Is Patient Pain Free? Yes Yes WC - Visit Discharge Discharge Condition Stable Stable Ambulatory Status Ambulatory,Cane Ambulatory, Walker Transportation Private Auto Notes: Pt to start Dakins at home. Wound debrided: right lateral foot (initial and new ulcer site) Laterality: Right Wound Grade/Stage: grade 3 Type of Debridement: Excisional debridement Anesthesia Used: 4% Lidocaine Solution Depth: in the subcutaneous layer Percentage of wound debrided: 100 Instrument Used: #15 blade, Forceps Tissue Removed: fibrous, devitalized subcutaneous, biofilm, slough and tendon Severity: Necrosis of Muscle Amount of bleeding with debridement: Mild Bleeding Controlled with: Pressure Patient tolerated procedure well Assessment/Plan Active Problems (Last Reviewed 08/03/20 @ 13:04 by Elsie Wagner) Below-knee amputation of left lower extremity (Chronic) Cellulitis of right lower limb (Acute) 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) Amputation of right foot (Chronic) transmetatarsal amputation Other specified peripheral vascular diseases (Chronic) Type 2 diabetes mellitus with diabetic polyneuropathy (Chronic) Delayed wound healing (Chronic) Assessment: Right DFU (delgado grade 3) at transmetatarsal amputation site. New ulcer proximal to the site Delgado grade 3 exposed tendon, right foot. healed left leg ulcer at below knee amputation site. Peripheral vascular disease. Coronary artery disease (EF ~ 19 %). Diabetes with insulin dependency. Polyneuropathy. Osteomyelitis right foot. malnutrition suspected. Chronic kidney disease on hemodialysis Plan: I reviewed and discussed his case. His right foot delayed primary closure site has maceration with a new adjacent ulcer and evidence of cellulitis. The sutures were loose and removed along with his macerated and peeling skin. Debridement of subcutaneous and tendon tissue was performed as noted in the clinical panel. This is sent for culture including aerobic, anaerobic, acid-fast and fungal. He was started on Augmentin antibiotic and this was electronically sent to his pharmacy of choice. He understands as the culture results come back additional or different antibiotics may be recommended. I recommend changing the dressing every day with Dakin's solution. He was advised on red get this 0.25%. He was previously under the care of infectious disease physician, Dr. Glass and will be reconsulted for next week. His pain is noted he relates he does already take occasional Percocet and if the pain is mild he will take simply regular Tylenol. I do not recommend additional narcotic use for this. Hyperbaric oxygen therapy is also not recommended due to EF of ~19%. Vascular intervention was confirmed as guarded with no additional intervention options. His vascular status has been optimized with a recent drug coated balloon angioplasty of the femoral artery with Dr. Busch. To continue offloading with pillow boot while resting in bed and also CAM walker with limited heel touch during short household periods of ambulation. To use assistive device. . To continue to improve glucose management. I recommend segundo or glucerna as a nutritional supplement. . Recommend updating labs as well and an order was provided for CBC, CMP, ESR and C-reactive protein. He was advised local signs of infection progress or if he develops systemic illness he needs to call the office immediately or go to the emergency room. He understands he is at high risk for life and limb threatening infections. His left limb remains healed. He is advised to keep this well-padded and protected. To keep the adjacent skin integrity intact with lotion. To avoid direct pressure. To continue to work with his prosthetic adjustment specialist. He was advised to remove his sleeve to allow his skin to rest in the middle of the day so moisture does not build up at this friable site. . To return to clinic in one week or sooner if concerns. I answered all of his questions. Note: [employer] speech recognition area intelligence technician software was used to create portions of this document. Sound-alike and misspelled words, as well as other area intelligence technician errors may be contained in the documentation. The problems addressed require a moderate decision making level which includes one or more chronic illnesses (w/ exacerbation, progression, or side effects), two or more stable chronic illnesses, one undiagnosed new problem w/ uncertain prognosis, one acute illness with systemic symptoms, or one acute complicated injury. The medical decision making level is moderate. There is noted moderate risk of morbidity after considering this treatment plan and diagnostic data. Considerations were given to prescription management, decisions regarding surgical options, or social determinants of health. ---------macra 2020. Reviewed today: Medications and allergies were reviewed and reconciled. It was previously noted he did have a flu shot this past season. He was a former smoker and currently is not using tobacco products. He has a living will on file. His blood pressure is within the normal range today at 109/73. His body mass index is 29.2. He was advised to follow-up with primary care physician for diet and modification and medical management.
[2020-08-11 13:03] LABS: Erythrocyte Sedimentation Rate 14 mm/hr (0-20)
[2020-08-11 13:06] LABS: Absolute Lymphocyte Count 0.29 X10^3/uL (0.83-4.51); Absolute Neutrophil Count 9.1 X10^3/uL (2.0-7.7); Basophil# 0.03 X10^3/uL; Basophil% 0.3 % (0-1); Eosinophil# 0.03 X10^3/uL; Eosinophils% 0.3 % (0-5); Hematocrit 32.8 % (40-54); Hemoglobin 10.3 g/dL (13.0-16.5); Lymphocyte # 0.29 X10^3/ul (4.0); Lymphocyte % 2.8 % (19-41); Mean Corp Hgb Conc 31.4 g/dL (32-36); Mean Corpuscular Volume 98.8 fL (80-94); Mean Platelet Vol. 9.6 fl (6.2-12.0); Monocyte# 0.73 X10^3/uL; Monocyte% 7.1 % (0-10); NRBC Flagged by Analyzer 0 % (0-5); Neutrophil # 9.12 X10^3/uL (2.7-7.7); POSITIVE DIFFERENTIAL YES; Platelet Count 189 K/mm3 (150-450); RBC Distribution Width CV 14.4 % (11.6-14.6); Red Blood Count 3.32 M/mm3 (4.6-6.2); White Blood Count 10.3 K/mm3 (4.4-11.0)
[2020-08-11 13:07] LABS: Differential Indicated SCAN CRITERIA MET
[2020-08-11 13:18] LABS: ALB/GLOB Ratio 0.9 RATIO (0.9-2.4); AST(SGOT) 36 U/L (15-37); Alanine Aminotransfer ALT/SGPT 119 U/L (16-61); Albumin, Serum 3.2 g/dL (3.2-5.0); Alkaline Phosphatase 113 U/L (45-117); Anion Gap 7 (5-15); BUN 34 mg/dL (7-18); BUN/Creat Ratio 27.4 RATIO (10-20); Calcium,Total 8.5 mg/dL (8.5-10.1); Chloride 96 mmol/L (98-107); Creatinine, Serum 1.24 mg/dL (0.70-1.30); EST Glomerular Filtration Rate 61 mL/min (>60); Est Glom Filt Rate - Afr Amer 73 mL/min (>60); Globulin 3.7 g/dL (2.2-4.2); Glucose 393 mg/dL (74-106); Potassium 4.1 mmol/L (3.5-5.1); Protein, Total 6.9 g/dL (6.4-8.2); Sodium Level 132 mmol/L (136-145)
[2020-08-11 14:05] LABS: Anisocytosis 1+; Platelet Estimate ADEQUATE (ADEQ); Red Cell Morphology N CHROM NORMAL (NORM C&C)
[2020-08-11 17:30] LABS: M R Staph aureus DNA By PCR POSITIVE (Negative); Probe Check PASS; Staph aureus DNA By PCR POSITIVE (Negative)
[2020-08-25 09:40] VITALS: BP 131/65; PULSE 102; RESP 18; TEMP 36.2; BMI 27.1
--- NOTE | 2020-08-25 09:43 | WC ---
sutures inatct on R foot wound post op
--- NOTE | 2020-08-25 10:18 | PCM.WC.PN ---
(1) Cellulitis of right lower limb Status: Resolved Code(s): L03.115 - Cellulitis of right lower limb (2) Ulcer of right foot with necrosis of bone Status: Acute Code(s): L97.514 - Non-pressure chronic ulcer of other part of right foot with necrosis of bone (3) Below-knee amputation of left lower extremity Status: Chronic Code(s): S88.112A - Complete traumatic amputation at level between knee and ankle, left lower leg, initial encounter (4) Amputation of right foot Status: Chronic Qualifiers: Code(s): S98.911A - Complete traumatic amputation of right foot, level unspecified, initial encounter Comment: transmetatarsal amputation (5) Other specified peripheral vascular diseases Status: Chronic Code(s): I73.89 - Other specified peripheral vascular diseases (6) Type 2 diabetes mellitus with diabetic polyneuropathy Status: Chronic Code(s): E11.42 - Type 2 diabetes mellitus with diabetic polyneuropathy (7) Delayed wound healing Status: Chronic Code(s): T14.8XXD - Other injury of unspecified body region, subsequent encounter (8) Bilateral lower extremity edema Status: Chronic Code(s): R60.0 - Localized edema (9) Osteomyelitis Status: Acute Code(s): M86.9 - Osteomyelitis, unspecified Type of Wound Date of Service: 08/25/20 Chief Complaint: Follow-up right lateral diabetic foot ulcer now revisional metatarsal resection (4 and 5) History of Wound: 74-year-old male with a left below knee amputation and right transmetatarsal amp follows up for ulcer of lateral foot. He was recently hospitalized for sepsis and underwent revisional 4th and 5th metatarsal resections with Dr. Shah on 08/15/2020. He denies pain. He denies fever, chills, nausea, vomiting. He had MRSA growth and is currently completing a 6-week course of IV vancomycin with end date of . He is under the management of infectious disease physician. He is having a decline in cardiac function and needs to have his pacemaker updated. He denies fever, chill, nausea, vomiting. He has some discomfort to the right foot. He also reports he has increased swelling to the left limb. 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 His with his . Progress of Wound: Right foot status post additional fourth and fifth ray resections - Physical Exam Vital Signs Temp Pulse Resp BP 97.1 F L 102 H 18 131/65 H 08/25/20 09:40 08/25/20 09:40 08/25/20 09:40 08/25/20 09:40 General: Alert, Oriented x3, Cooperative, No apparent distress Extremities: No cyanosis, Capillary Refill Less than 3 Seconds, No Calf Tenderness, Diminished Peripheral Pulses, Edema Skin: Incision - Well aligned lateral right foot ray resection site without coapted tissue. There is serosanguineous drainage without purulence. There is no odor or erythema or streaking. There is fibrous and granular adjacent tissue noted. His skin is atrophic and hairless. The left lower extremity healed Wound Measurements and Assessment WC - Nurse 1 - General Ulcer Measurement Start: 08/04/20 10:58 Freq: Status: Active Protocol: Activity Type Activity Date Activity User E-Sign Co-Sign Detail Recorded Client Recorded Date Recorded By Document 08/25/20 09:40 RB [id number] 08/25/20 09:44 RB 08/25/20 09:40 Wound Center Nurse 1 [Ulcer Assessment] #3- R LAT FOOT -Combined with other wound No -Current Size (cm) - Length 4.2 -Current Size (cm) - Width 2 -Current Size (cm) - Depth 0.9 -Total Square Cm 8.4 -Tunneling No -Undermining/Tunneling No -Circular Undermining No -Exudate Amt Medium -Exudate Type Serosanguineous -Wound Margin Thickened & Rolled Under -Granulation Amt Medium (34-66%) -Granulation Quality [place],Red -Slough/Fibrin Yes -Necrosis Amt Small (1-33%) -Necrotic Tissue Type Adherent Slough -Structure Exposed N/A -Texture (Allison-wound Skin Appearance) Assessed -Moisture (Allison-wound Skin Appearance Maceration ) -Color (Allison-wound Skin Appearance) Assessed -Temperature (Allison-wound Skin No Abnormality Appearance) (Pt Warm) -Tenderness on Palpation (Allison-wound No Skin Appearance) -Ulcer Cleansing Wound Cleanser -Foul Odor after Cleansing No -Anesthetic Used 4% Lidocaine Solution [Edema Assessment] -Lower Limb Edema Present Yes -Right Calf (cm) 42.5 -Right Ankle (cm) 26 -Left Calf (cm) 33 08/25/20 09:43 Wound Center by Miladis Brock on R foot wound post op Initialized on 08/25/20 09:43 - END OF NOTE - Nurse 2 - General Ulcer CM Notes Start: 08/04/20 10:58 Freq: Status: Active Protocol: Activity Type Activity Date Activity User E-Sign Co-Sign Detail Recorded Client Recorded Date Recorded By Document 08/25/20 10:05 [id number] 08/25/20 10:08 08/25/20 10:05 Wound Center Nurse 2 [Procedure/Treatment] #3- R LAT FOOT -Correct Patient No -Correct Side, Site, Position No -Correct Procedure No -Procedure Performed No -Wound/Ulcer Outcome Not Healed [See Physician Procedure note for Specifics] Pain Scale: 0-10 Numeric [Pain] -Is Patient Pain Free? Yes Musculoskeletal: No Tenderness to Palpation of Joints or Extremities, Muscle Wasting, - - Right transmetatarsal amputation. Left below-knee amputation Neurological: - - Lack of normal epicritic sensation Psych/Mental Status: Normal Affect, Appropriate Debridement Note Post-Debridement Measurements/Treatment - Nurse 2 - General Ulcer CM Notes Start: 08/04/20 10:58 Freq: Status: Active Protocol: Activity Type Activity Date Activity User E-Sign Co-Sign Detail Recorded Client Recorded Date Recorded By Document 08/04/20 11:35 [id number] 08/04/20 11:42 Document 08/11/20 11:05 [id number] 08/11/20 11:20 Document 08/25/20 10:05 [id number] 08/25/20 10:08 08/04/20 08/11/20 08/25/20 11:35 11:05 10:05 Wound Center Nurse 2 5 left BKA stump -Correct Patient No -Correct Side, Site, Position No -Correct Procedure No -Procedure Performed No -Post Debridement (cm) - Length 0 -Post Debridement (cm) - Width 0 -Post Debridement (cm) - Depth 0 -Total Square (Post) (cm) 0 -Area of Debridement (cm) - Length 0 -Area of Debridement (cm) - Width 0 -Total Square (Area) (cm) 0 -Tunneling No -Undermining/Tunneling No -Circular Undermining No -Wound/Ulcer Outcome Not Healed -Ulcer Cleansing Rinsed/ Irrigated with Saline -Foul Odor after Cleansing No -Bioengineered Tissue No -Bleeding Controlled with Pressure -Offloading Yes -Type of Offloading Camwalker -Treatment Response Procedure Tolerated Well -Debridement - Subq, 1st 20sq cm No #3- R LAT FOOT -Time 11:06 -Correct Patient No Yes No -Correct Side, Site, Position No Yes No -Correct Procedure No Yes No -Procedure Performed No Yes No -Type of Procedure Debridement -Clinical Debridement Muscle / Fascia -Tissue Removed Fascia,Tendon -Post Debridement (cm) - Length 2.5 -Post Debridement (cm) - Width 1 -Post Debridement (cm) - Depth 1 -Total Square (Post) (cm) 2.5 -Area of Debridement (cm) - Length 2.5 -Area of Debridement (cm) - Width 1 -Total Square (Area) (cm) 2.5 -Tunneling No -Undermining/Tunneling No -Circular Undermining No No -Wound/Ulcer Outcome Not Healed Not Healed Not Healed -Ulcer Cleansing Rinsed/ Irrigated with Saline -Foul Odor after Cleansing No -Bioengineered Tissue No -Bleeding Controlled with Pressure Pressure -Offloading Yes No -Type of Offloading Camwalker -Treatment Response Procedure Procedure Tolerated Well Tolerated Well -Debridement - Subq, 1st 20sq cm No No -Debridement - Muscle / Fascia, 1st Yes 20sq cm Pain Scale: 0-10 Numeric Is Patient Pain Free? Yes Yes Yes - Nurse 3 - General Ulcer D/C NN Start: 08/04/20 10:58 Freq: Status: Active Protocol: Activity Type Activity Date Activity User E-Sign Co-Sign Detail Recorded Client Recorded Date Recorded By Document 08/04/20 11:55 DL [id number] 08/04/20 11:56 DL Document 08/11/20 11:37 DL [id number] 08/11/20 11:38 DL 08/04/20 08/11/20 11:55 11:37 Wound Care Nurse 3 5 left BKA stump -Ulcer Cleansing Rinsed/ Irrigated with Saline -Foul Odor after Cleansing No -Other Dressing healed -Primary Dressing Covered/Secured with Dry Gauze #3- R LAT FOOT -Ulcer Cleansing Rinsed/ Rinsed/ Irrigated with Irrigated with Saline Saline -Foul Odor after Cleansing No No -Other Dressing betadine moist gauze today -Primary Dressing Covered/Secured with Dry Gauze,Dry Dry Gauze & Gauze & Roll Roll Gauze, Gauze,Secured Secured with with Tape Tape Treatment Response Procedure Procedure Tolerated Well Tolerated Well Pain Scale: 0-10 Numeric Is Patient Pain Free? Yes Yes WC - Visit Discharge Discharge Condition Stable Stable Ambulatory Status Ambulatory,Cane Ambulatory, Walker Transportation Private Auto Notes: Pt to start Dakins at home. Wound debrided: foot (surgical site) Laterality: Right No debridement was completed today Assessment/Plan Active Problems (Last Updated 08/16/20 @ 13:[address] Eda Morin MD) Ulcer of left lower extremity with fat layer exposed (Acute) Bilateral lower extremity edema (Chronic) Below-knee amputation of left lower extremity (Chronic) Ulcer of right foot with necrosis of bone (Acute) Amputation of right foot (Chronic) transmetatarsal amputation Other specified peripheral vascular diseases (Chronic) Type 2 diabetes mellitus with diabetic polyneuropathy (Chronic) Delayed wound healing (Chronic) Assessment: s/p revisional fourth and fifth ray resections with acute osteomyelitis (DOS 08/15/20, Dr. Shah). healed left leg ulcer at below knee amputation site. Peripheral vascular disease. Coronary artery disease (EF ~ 19 %). Diabetes with insulin dependency. Polyneuropathy. malnutrition suspected. Chronic kidney disease on hemodialysis Plan: I reviewed and discussed his case. His right surgical site is stable however healing potential remains guarded given vascular status. To change dressing daily with dakin's wet to dry dressing. His vascular status has been optimized with a recent drug coated balloon angioplasty of the femoral artery with Dr. Busch. To continue on Plavix and aspirin. His recent hospital admission diagnostic data and intervention was reviewed. He is being treated with a 6-week course of IV vancomycin with end date of 09-26-20. An additional course of oral doxycycline also be considered. Infectious disease physician, Dr. Glass is managing. Serial updated labs will be requested. He is at a half-way facility. His pathology bone fragments that were debrided in surgery demonstrate acute osteomyelitis. To continue offloading with pillow boot while resting in bed and also CAM walker with limited heel touch during short household periods of ambulation. To use assistive device. . To continue to improve glucose management. I recommend segundo or glucerna as a nutritional supplement. It is also noted he is on prednisone and this may be contributing to some of his delayed healing. . His left limb remains healed. He is advised to keep this well-padded and protected. To keep the adjacent skin integrity intact with lotion. To avoid direct pressure. To continue to work with his prosthetic adjustment specialist. He was advised to remove his sleeve to allow his skin to rest in the middle of the day so moisture does not build up at this friable site. . He has declining cardiac function needs to have his pacemaker replaced. I recommend he continues to follow-up with cardiology and infectious disease to determine the most appropriate timeframe for him to have this performed. His lower extremity edema is addressed today with bilateral Jem wrap application. He was advised to perform intermittent elevation and lower extremity muscular contraction hourly. He relates he is no longer taking Lasix while the half-way facility and I recommend this be reviewed with his managing physician or nurse practitioner at [facility]. To return to clinic in one week or sooner if concerns. I answered all of his questions. This note will be faxed to [facility] for communication purposes. Note: [employer] speech recognition quality assurance software was used to create portions of this document. Sound-alike and misspelled words, as well as other quality assurance errors may be contained in the documentation.
== END 2020-08-29 23:59 ==
LOC: WC 09:00
PROVIDERS: PCP Family Medicine; Referring Provider Family Medicine; Visit Provider Nurse Practitioner
DX: E11.621 Type 2 diabetes mellitus with foot ulcer (principal); E11.42 Type 2 diabetes mellitus with diabetic polyneuropathy; Z89.512 Acquired absence of left leg below knee; I25.10 Atherosclerotic heart disease of native coronary artery without angina pectoris; Z99.2 Dependence on renal dialysis; E11.22 Type 2 diabetes mellitus with diabetic chronic kidney disease; N18.6 End stage renal disease; E11.51 Type 2 diabetes mellitus with diabetic peripheral angiopathy without gangrene; Z89.431 Acquired absence of right foot; L97.513 Non-pressure chronic ulcer of other part of right foot with necrosis of muscle
CPT/HCPCS: 11042; 11043; 36415; 80053; 85025; 85652; 86140; 87070; 87075; 87077; 87186; 87205; 87640; 99213; G0463

== ENCOUNTER 2020-09-01 04:21 | Emergency (ER) | payer MEDICARE, OTHER, SELFPAY ==
[2020-08-30 00:28] VITALS: BMI 27.2
[2020-09-01 04:22] VITALS: BP 139/62; PULSE 99; RESP 18; TEMP 35.8; O2SAT 97; BMI 29.6
--- NOTE | 2020-09-01 04:29 | CT_ITS ---
STUDY: CT ABDOMEN AND PELVIS WITH CONTRAST REASON FOR EXAM: Male, 74 years old. Abdominal Pain RADIATION DOSAGE (If Supplied By Facility): CTDIvol = ( 22.22 ) mGy, DLP = ( 1566.52 ) mGycm TECHNIQUE: Transaxial images were obtained from the dome of the diaphragm to the symphysis pubis without oral contrast. IV 100mL Isovue-370 was administered. Sagittal and coronal images were reconstructed. Individualized dose optimization techniques were used for this CT. COMPARISON: August 06, 2020 CT abdomen and pelvis FINDINGS: There is visualized emphysematous change within the lung bases. There is right middle lobe consolidation and/or scarring associated with bronchiectasis. This visualize pleural plaquing at the right lung base. There are small bilateral effusions. The visualized coronary calcifications. The visualized external leads overlying the heart. The liver is enlarged and inhomogeneous. There is non-visualization of the gallbladder, which may be secondary to either contraction or a prior cholecystectomy. Normal spleen. There is severe diffuse atrophy of the pancreas. Normal bilateral adrenal glands. There is a right renal cyst measuring 1.6 cm. This demonstrates hydronephrosis. Normal left kidney. There is a small hiatal hernia. The small bowel appears of a normal caliber. There is mild to moderate ascites, slightly worse than the prior study. There is mild to moderate stool in the colon. There is diverticulosis without diverticulitis. The appendix is visualized and appears normal. There is diffuse atherosclerotic calcification of the abdominal aorta, without a demonstrated aneurysm. Normal inferior vena cava. Normal retroperitoneum. Normal urinary bladder. Normal visualized prostate gland. There is body wall edema. There is multilevel disc space narrowing spondylosis neural foramina narrowing. There is mild to moderate neural foramina narrowing central stenosis. There is degenerative change of the bilateral hip joints. CT/Abdomen/Pelvis W IV Cont ONLY IMPRESSION: Mild to moderate ascites. Enlarged inhomogeneous appearance of the liver recommend correlation with hepatic laboratory values. This is more apparent than prior study. Benign-appearing right renal cyst. Severely atrophied pancreas. Minimal hiatal hernia. Nonobstructive bowel gas pattern. Mild constipation diverticulosis no diverticulitis. Pulmonary emphysema trace effusions. Chronic appearing right middle lobe atelectasis and/or bronchiectasis. Right pleural plaquing. Status post sternotomy cardiomegaly partially visualized postoperative change Degenerative change of the thoracolumbar spine. Electronically Signed: Jossy Pedersen MD at 5:24 EST Tel , Service support ,
--- NOTE | 2020-09-01 04:31 | ED.DCSUM_ITS ---
History of Present Illness Chief Complaint: Abd Pain Informant: Patient Narrative: 73-year-old male presenting with abdominal pain. He states that it feels like his stomach is outside of his body. He states that after eating lunch today at [facility] he started to have abdominal cramping and he has been retching since then. Patient is unsure if anybody else got ill from eating there. Patient denies fever, cough, change in taste and smell. He states he is currently being treated for osteomyelitis at [facility]. He recently had surgery on his right foot due to osteomyelitis. Patient states when he is retching that is when his pain is the greatest but when he is not retching it is a 5/10. He states he has not had any abdominal surgeries. Denies urinary complaints. - Past Medical History (1) Osteomyelitis Status: Chronic (2) Biventricular implantable cardioverter-defibrillator (ICD) in situ Status: Chronic Past Medical History - Allergies and Home Meds Allergies/Adverse Reactions: Allergies amiodarone Allergy (Severe, Verified 09/01/20 04:29) pulmonary fibrosis sotalol Allergy (Severe, Verified 09/01/20 04:29) intolerant levofloxacin [From Levaquin] Allergy (Verified 09/01/20 04:29) Pain in joints LEG CRAMPING gabapentin Adverse Reaction (Verified 09/01/20 04:29) Diarrhea latex Adverse Reaction (Verified 09/01/20 04:29) Rash Primary Care Physician: Jcarlos Glasgow MD [Primary Care Provider] - Prior records reviewed: Yes Past Medical History: - - Diabetes, CAD, PVD, COPD, hypertension, hyperlipidemia Surgical History: coronary bypass surgery [facility] Smoking Status: Former smoker Alcohol: None Drugs: None Review of Systems General: Denies: Chills, Fever, Sweats Eyes: Denies: Visual changes - bilaterally, Diplopia ENT: Denies: Rhinorrhea, Sore throat Cardiovascular: Denies: Chest pain, Palpitations Respiratory: Denies: Dyspnea, Cough Gastrointestinal: Reports: Abdominal pain, Nausea, Vomiting. Denies: Diarrhea, Constipation Musculoskeletal: Denies: Myalgias, Arthralgias Skin: Denies: Rash, Abscess Neurological: Denies: Headache, Weakness Psych: Denies: Depression, Anxiety Physical Exam Vital Signs/Narrative: Vital Signs Temp Pulse Resp BP Pulse Ox 09/01/20 04:22 96.5 F L 99 18 139/62 H 97 Inital Vital Signs reviewed: Yes General: Well nourished, No Acute Distress, - Head: Normocephalic, Atraumatic Eyes: Perrl, EOMI. Negative for: Pale conjunctiva, Scleral icterus ENT: Moist mucous membranes, No rhinorrhea Cardiovascular: Regular rate, Regular rhythm Respiratory: No distress, CTA bilaterally Abdomen: Soft, Nondistended, Normal bowel sounds, Tender - Generalized tenderness. Abdomen is nonperitoneal. Skin: Normal color, No rash. Negative for: Cyanosis, Diaphoresis Neurological: Alert, Oriented x3, Cranial nerves II-XII grossly intact Psychological: Normal affect, Normal Mood Diagnostic/Tx/Re-eval Clinical Impression(s) from Imaging Studies Abdomen/Pelvis CT 09/01/20 04:29 IMPRESSION: Mild to moderate ascites. Enlarged inhomogeneous appearance of the liver recommend correlation with hepatic laboratory values. This is more apparent than prior study. Benign-appearing right renal cyst. Severely atrophied pancreas. Minimal hiatal hernia. Nonobstructive bowel gas pattern. Mild constipation diverticulosis no diverticulitis. Pulmonary emphysema trace effusions. Chronic appearing right middle lobe atelectasis and/or bronchiectasis. Right pleural plaquing. Status post sternotomy cardiomegaly partially visualized postoperative change Degenerative change of the thoracolumbar spine. Electronically Signed: Jossy Pedersen MD at 5:24 EST Tel , Service support , Laboratory Data 09/01/20 09/01/20 09/01/20 04:35 04:35 05:35 WBC 7.1 RBC 2.83 L Hgb 8.5 L Hct 27.8 L MCV 98.2 H MCH 30.0 MCHC 30.6 L RDW Std Deviation 51.4 H RDW Coeff of Jac 14.7 H Plt Count 288 MPV 8.5 Immature Gran % (Auto) 0.400 Neut % (Auto) 84.8 H Lymph % (Auto) 5.8 L [place] % (Auto) 8.0 Eos % (Auto) 0.6 Baso % (Auto) 0.4 Absolute Neuts (auto) 6.0 Absolute Lymphs (auto) 0.41 L Nucleated RBC % 0 Differential Comment SCANNED Atypical Lymphocytes RARE Platelet Estimate ADEQUATE Hypochromasia 2+ Anisocytosis RARE Macrocytosis RARE Sodium 139 Potassium 3.6 Chloride 97 L Carbon Dioxide 34.0 H Anion Gap 8 BUN 48 H Creatinine 1.22 Estim Creat Clear Calc 55.68 Est GFR (MDRD) Af Amer 75 Est GFR (MDRD) Non-Af 62 BUN/Creatinine Ratio 39.3 H Glucose 67 L Calcium 8.7 Total Bilirubin 0.80 AST 18 ALT 15 L Alkaline Phosphatase 179 H Total Protein 6.8 Albumin 2.8 L Globulin 4.0 Albumin/Globulin Ratio 0.7 L Lipase 26 L Urine Color Yellow Urine Clarity Clear Urine pH 6.0 Ur Specific [place] 1.010 Urine Protein Negative Urine Glucose (UA) Normal Urine Ketones Negative Urine Occult Blood Negative Urine Nitrite Negative Urine Bilirubin Negative Urine Urobilinogen Normal Ur Leukocyte Esterase 25 H Urine RBC 0 SEEN Urine WBC 0-5 SEEN Ur Squamous Epith Cells 0 SEEN Urine Bacteria 0 SEEN Urine Mucus 0 SEEN - Medical Decision Making 74-year-old male presenting with nausea/vomiting with abdominal pain. He states its not very painful when he is not retching. Patient was given Zofran prior to arrival and it started to work and he stopped vomiting. He was given Phenergan as well as morphine here. On reevaluation he states that his symptoms have all passed. CBC shows a white blood cell count of 7.1, hemoglobin 8.5, platelets 288. CMP shows normal GFR bilirubin 0.8 AST and ALT are normal. Alk phos is slightly elevated at 179. Lipase negative. Patient CT does show concern for inhomogenous appearance of liver however patient's liver function tests are fairly normal. He is currently pain-free and nausea free. His CT did also show that he has ascites but he had this since his previous CT as well. I recommended follow-up with a GI doctor. He acknowledged understanding. I will discharge him home with Zofran. Impression: 1. Abdominal pain 2. Nausea/vomiting 3. Hepatomegaly 4. Ascites ED Disposition - Plan for ED Patient: Disposition: [facility] Facility Instructions: ED Vomiting (Adult), ED Constipation (Adult), ED Ascites Prescriptions: Ondansetron [Zofran Odt] 4 mg PO Q8H PRN PRN #20 tab PRN Reason: Nausea Transmission Status: Pending to [facility]/pharmacy #[id number] Referrals: Jcarlos Glasgow MD [Primary Care Provider] - Additional Instructions: Your abdominal CT shows that you have an enlarged inhomogenous liver. Your liver enzymes were normal however. You still have mild ascites that was present on your previous CT of your abdomen. I recommend that you follow-up with a GI doctor.
[2020-09-01] MEDS: Morphine 4 MG/ML Syringe IV (04:39)
[2020-09-01] MEDS: proMETHazine 25 MG/ML Syringe 12.5 MG IM (04:39)
[2020-09-01 04:45] LABS: Absolute Lymphocyte Count 0.41 X10^3/uL (0.83-4.51); Basophil# 0.03 X10^3/uL; Basophil% 0.4 % (0-1); Eosinophil# 0.04 X10^3/uL; Eosinophils% 0.6 % (0-5); Hematocrit 27.8 % (40-54); Hemoglobin 8.5 g/dL (13.0-16.5); Lymphocyte # 0.41 X10^3/ul (4.0); Lymphocyte % 5.8 % (19-41); Mean Corp Hgb Conc 30.6 g/dL (32-36); Mean Corpuscular Volume 98.2 fL (80-94); Mean Platelet Vol. 8.5 fl (6.2-12.0); Monocyte# 0.57 X10^3/uL; NRBC Flagged by Analyzer 0 % (0-5); Neutrophil # 6.04 X10^3/uL (2.7-7.7); Neutrophil % 84.8 % (47-70); POSITIVE DIFFERENTIAL YES; Platelet Count 288 K/mm3 (150-450); RBC Distribution Width CV 14.7 % (11.6-14.6); RBC Distribution Width SD 51.4 fl (35.1-43.9); Red Blood Count 2.83 M/mm3 (4.6-6.2); White Blood Count 7.1 K/mm3 (4.4-11.0)
[2020-09-01 04:51] LABS: Differential Indicated SCAN CRITERIA MET
[2020-09-01 05:04] LABS: ALB/GLOB Ratio 0.7 RATIO (0.9-2.4); AST(SGOT) 18 U/L (15-37); Alanine Aminotransfer ALT/SGPT 15 U/L (16-61); Albumin, Serum 2.8 g/dL (3.2-5.0); Alkaline Phosphatase 179 U/L (45-117); Anion Gap 8 (5-15); BUN 48 mg/dL (7-18); BUN/Creat Ratio 39.3 RATIO (10-20); Calcium,Total 8.7 mg/dL (8.5-10.1); Chloride 97 mmol/L (98-107); Creatinine, Serum 1.22 mg/dL (0.70-1.30); EST Glomerular Filtration Rate 62 mL/min (>60); Est Glom Filt Rate - Afr Amer 75 mL/min (>60); Estimated Creatinine Clearance 55.68 ml/min; Glucose 67 mg/dL (74-106); Lipase 26 U/L (73-393); Potassium 3.6 mmol/L (3.5-5.1); Protein, Total 6.8 g/dL (6.4-8.2); Sodium Level 139 mmol/L (136-145)
[2020-09-01 05:06] LABS: Differential Comment SCANNED
[2020-09-01 05:07] LABS: Anisocytosis RARE; Atypical Lymphocyte RARE %; Hypochromasia 2+; Macrocytosis RARE; Platelet Estimate ADEQUATE (ADEQ)
[2020-09-01 05:39] LABS: Bacteria 0 SEEN /hpf (None Seen); Mucous, Urine 0 SEEN /hpf (<or=2+); Red Blood Cells-Urine 0 SEEN /hpf (0-5); Squamous Epithelial Cells - UA 0 SEEN /hpf (0-5)
[2020-09-01 05:40] LABS: Color, Urine Yellow (Yellow); Glucose, Dipstick Normal (Normal); Ketone-Dipstick Negative (Negative); Leukocyte Esterase-Dipstick 25 /ul (Negative); Nitrite-Dipstick Negative (Negative); Occult Blood-Urine Negative /ul (Negative); Protein-Dipstick Negative (Negative); Urine Bilirubin Dipstick Negative (Negative); Urine Clarity Clear (Clear); Urine Urobilinogen Normal (Normal)
[2020-09-01 05:45] LABS: White Blood Cells 0-5 SEEN /hpf (0-5)
[2020-09-01 06:29] VITALS: BP 111/62; PULSE 80; RESP 13
--- NOTE | 2020-09-01 06:29 | ED.RN ---
report called back to [facility] [address]
== END 2020-09-01 07:14 | disposition skilled nursing facility (03) ==
PROVIDERS: Emergency Provider Student in an Organized Health Care Education/Training Program; PCP Family Medicine
DX: R10.84 Generalized abdominal pain (principal); R11.2 Nausea with vomiting, unspecified; R16.0 Hepatomegaly, not elsewhere classified; R18.8 Other ascites; I25.10 Atherosclerotic heart disease of native coronary artery without angina pectoris; I10 Essential (primary) hypertension; E78.5 Hyperlipidemia, unspecified; E11.51 Type 2 diabetes mellitus with diabetic peripheral angiopathy without gangrene; J44.9 Chronic obstructive pulmonary disease, unspecified; Z95.810 Presence of automatic (implantable) cardiac defibrillator; Z79.4 Long term (current) use of insulin; Z79.899 Other long term (current) drug therapy; Z87.891 Personal history of nicotine dependence
CPT/HCPCS: 36592; 74177; 80053; 81001; 83690; 85025; 96372; 96374; 99284; Q9967; A4216

== ENCOUNTER 2020-09-04 20:54 | Emergency (ER) | payer MEDICARE, OTHER, SELFPAY ==
[2020-09-04 20:54] VITALS: BP 114/66; PULSE 110; RESP 18; TEMP 36.7; O2SAT 99; BMI 29.0
--- NOTE | 2020-09-04 21:09 | EKG12_ITS ---
Test Reason : FB Blood Pressure : / mmHG Vent. Rate : 096 BPM Atrial Rate : 096 BPM P-R Int : 000 ms QRS Dur : 134 ms QT Int : 390 ms P-R-T Axes : 026 -80 109 degrees QTc Int : 492 ms Ventricular-paced rhythm with occasional Premature ventricular complexes Biventricular pacemaker detected Abnormal ECG Confirmed by TERRANCE ELLSWORTH, PRIMITIVO ([id number]), features editor FRANTZ LYNN ([id number]) on 09/07/2020 12:22:15 PM Referred By: MIKHAIL Confirmed By:PRIMITIVO CARLOS MD
--- NOTE | 2020-09-04 21:09 | RAD_ITS ---
STUDY: X-RAY - SOFT TISSUE NECK REASON FOR EXAM: Male, 74 years old. Metallic esophageal FB TECHNIQUE: 2 view(s) of the neck were obtained. COMPARISON: 07/29/18. FINDINGS: Normal visualized nasopharynx, oropharynx, hypopharynx. A linear metallic foreign body with the appearance of a wire is seen overlying the subglottic tracheal air column at the level of the thoracic inlet on the lateral view. Fractured median sternotomy wires are noted. Normal epiglottis. Normal visualized subglottic tracheal air column. Normal prevertebral soft tissue structures. There are degenerative changes of the cervical spine with cervical spondylosis. The soft tissue structures are unremarkable. RAD/Neck for Soft Tissue IMPRESSION: A linear metallic foreign body with the appearance of a wire is seen overlying the subglottic tracheal air column at the level of the thoracic inlet on the lateral view. This is unchanged dating back to 07/29/18 Electronically Signed: Avinash Ty MD at 22:36 EST Tel , Service support ,
--- NOTE | 2020-09-04 21:09 | RAD_ITS ---
We are attempting to reach an attending provider to discuss findings. An addendum with communication details will be sent when the communication is complete. STUDY: X-RAY CHEST REASON FOR EXAM: Male, 74 years old. Possible swallowed a FB metallic ?? TECHNIQUE: Single frontal view of the chest. COMPARISON: 08/13/2020. FINDINGS: Linear metallic foreign body is seen in the level of the thoracic inlet, unchanged from prior. Cardiac silhouette enlarged. Pulmonary vascularity increased. Aorta unremarkable. Left cardiac device. Median sternotomy wires. Patchy bilateral airspace opacities and likely small pleural effusions. Upper abdomen unremarkable. Osseous structures intact. No pneumothorax. RAD/Chest 1 View (Portable) IMPRESSION: Linear metallic foreign body at the level of the thoracic inlet has the appearance of a wire, unchanged from prior. Patchy bibasilar airspace opacities may indicate edema versus infection as clinically indicated. Electronically Signed: Avinash Ty MD at 22:32 EST Tel , Service support ,
--- NOTE | 2020-09-04 21:11 | ED.VISSUMM ---
- ER Visit Summary Date of Service: 09/04/20 Chief Complaint: Possible esophageal foreign body History of Present Illness: The patient is a 74 M stented past medical history of CAD with a prior 5 way bypass, pacemaker defibrillator, diabetes, cardiac stent, chronic anemia, left below the knee amputation and right foot surgery. Patient currently is at [facility]. They did an x-ray and they are questioning either esophageal foreign body. Patient thinks it could possibly be a piece of his hearing aid which she said was lost this morning when he woke up he thinks it fell onto his mouth when he was sleeping. thinks it may be dental but he said he has not noticed any dental irregularities. She denies any trouble breathing. He denies any trouble swallowing. He denies any chest pain or abdominal pain. No fever. Physical Examination: Older male from a prison vital signs are stable. Afebrile. Pulse ox 99% on room air no signs of hypoxia. No distress. present in the room. HEENT exam unremarkable. Very poor dentition multiple missing teeth. Posterior pharynx is unremarkable. No trouble swallowing or breathing. No stridor or drooling. Neck nontender. Trachea midline. No lymphadenopathy. Lungs there to auscultation bilaterally. Heart regular rhythm rate about 100 systolic ejection murmur 3/6. Abdomen soft nontender normal bowel sounds no peritoneal signs. Moving all 4 extremities. No edema. Left below the knee amputation. Right foot wrapped from prior partial amputation surgery there also. Neurologically is awake and alert. He is moving all 4 extremities. Test Results: This x-ray shows no acute abnormality. There is an old proximal sternal wire that is broken and that has migrated up on the left side of his neck in the soft tissue. That is not new this been seen on prior films. Is a portable single view film read both of myself and the radiologist. Also shows chronic cardiomegaly. Patient also had soft tissue x-ray of his neck again showed this sternotomy wire that is migrated but otherwise no acute process. Interpreted both by myself and the radiologist. EKG shows a paced rhythm rate of 96 with PVCs. CBC shows a white count 8. Hemoglobin 8.1 which is baseline. No bands. Chemistry gap of 5. BUN of 41 creatinine 1.51 is got acute on chronic renal insufficiency. I went over all test results the patient is . Also discussed the x-ray findings. Repeat exam he is doing well at 10:50 PM. states she wants to take him back to their house and not sending back to the prison. I do not think she is comfortable with the care that he received there. We will make the prison aware that patient will be going home with his . He is currently getting infusions and no follow-up with his infectious disease physician on Sunday. Emergency Department Course and Treatment: Older male from a prison. Possible esophageal or otherwise foreign body. He is having no airway compromise. He also states he just has not been feeling that well and wanted me obtain an EKG and some screening labs. Treatment Plan: Discharged to home. can take patient back to their house instead of sending back to the prison. Disposition: discharge Impression: Foreign body sensation of uncertain etiology Broken sternal wire that is migrated into the soft tissue of his neck seen on prior films Anemia of chronic disease Acute on chronic renal insufficiency This note was generated with [employer] dictation software. It may contain incorrect words, spelling, and punctuation that were not noted in review of the chart prior to signing ED Disposition - Plan for ED Patient: Referrals: Jcarlos Glasgow MD [Primary Care Provider] -
[2020-09-04 21:29] LABS: Absolute Lymphocyte Count 0.38 X10^3/uL (0.83-4.51); Basophil# 0.03 X10^3/uL; Basophil% 0.4 % (0-1); Eosinophil# 0.03 X10^3/uL; Eosinophils% 0.4 % (0-5); Hematocrit 26.1 % (40-54); Hemoglobin 8.1 g/dL (13.0-16.5); Lymphocyte # 0.38 X10^3/ul (4.0); Lymphocyte % 4.6 % (19-41); Mean Corpuscular Hgb 30.7 pg (27.0-32.0); Mean Corpuscular Volume 98.9 fL (80-94); Mean Platelet Vol. 8.3 fl (6.2-12.0); Monocyte# 0.73 X10^3/uL; Monocyte% 8.9 % (0-10); NRBC Flagged by Analyzer 0 % (0-5); Neutrophil # 6.97 X10^3/uL (2.7-7.7); Neutrophil % 85.2 % (47-70); POSITIVE DIFFERENTIAL YES; Platelet Count 249 K/mm3 (150-450); RBC Distribution Width CV 15.6 % (11.6-14.6); RBC Distribution Width SD 53.5 fl (35.1-43.9); Red Blood Count 2.64 M/mm3 (4.6-6.2); White Blood Count 8.2 K/mm3 (4.4-11.0)
[2020-09-04 21:35] LABS: Differential Indicated SCAN CRITERIA MET
[2020-09-04 21:42] LABS: Anion Gap 5 (5-15); BUN 41 mg/dL (7-18); BUN/Creat Ratio 27.2 RATIO (10-20); Calcium,Total 8.5 mg/dL (8.5-10.1); Chloride 97 mmol/L (98-107); Creatinine, Serum 1.51 mg/dL (0.70-1.30); EST Glomerular Filtration Rate 48 mL/min (>60); Est Glom Filt Rate - Afr Amer 58 mL/min (>60); Estimated Creatinine Clearance 47.82 ml/min; Glucose 108 mg/dL (74-106); Potassium 3.9 mmol/L (3.5-5.1); Sodium Level 136 mmol/L (136-145)
[2020-09-04] MEDS: HYDROcodone Bitartrate/Apap 5/325 Tablet PO (22:16)
--- NOTE | 2020-09-04 23:06 | ED.RN ---
Spoke with RN from [facility]. all questions answered. pt will be transported back to [facility] via private car and family.
--- NOTE | 2020-09-04 23:08 | DCINST.ED_ITS ---
ED Disposition - Plan for ED Patient: Disposition: Home or Assisted Living Referrals: Jcarlos Glasgow MD [Primary Care Provider] - As soon as possible Additional Instructions: Nothing obvious that we can see in your throat tonight. There is evidence of an old broken sternal wire that is migrated up into the soft tissue but that should not be causing the problem. Follow-up with your physicians on Sunday. Make sure they know that you have left the longterm. Follow-up with your infusions.
[2020-09-04 23:26] VITALS: BP 109/66; PULSE 90; RESP 20; O2SAT 98
== END 2020-09-04 23:27 | disposition home or self-care (01) ==
PROVIDERS: Emergency Provider Emergency Medicine; PCP Family Medicine
DX: R09.89 Other specified symptoms and signs involving the circulatory and respiratory systems (principal); T84.218A Breakdown (mechanical) of internal fixation device of other bones, initial encounter; D63.8 Anemia in other chronic diseases classified elsewhere; I25.10 Atherosclerotic heart disease of native coronary artery without angina pectoris; I12.9 Hypertensive chronic kidney disease with stage 1 through stage 4 chronic kidney disease, or unspecified chronic kidney disease; E11.22 Type 2 diabetes mellitus with diabetic chronic kidney disease; N18.9 Chronic kidney disease, unspecified; N17.9 Acute kidney failure, unspecified; Z89.512 Acquired absence of left leg below knee; Z95.5 Presence of coronary angioplasty implant and graft; Z79.899 Other long term (current) drug therapy; Z79.4 Long term (current) use of insulin
CPT/HCPCS: 36592; 70360; 71045; 80048; 85025; 93005; 99283; A4216

== ENCOUNTER 2020-09-10 08:47 | Outpatient (CLI) | payer MEDICARE, OTHER, SELFPAY ==
[2020-09-08 14:02] VITALS: BMI 29.0
[2020-09-10 09:11] VITALS: BP 111/49; PULSE 96; RESP 18; TEMP 36.1; O2SAT 96; BMI 25.7
[2020-09-10] MEDS: 0.9% NaCl IVPB Med Flush (250 mL) 15 ML IV (09:20)
[2020-09-10] MEDS: 0.9% NaCl PICC Flush IV ×3 (09:21→11:15)
[2020-09-10] MEDS: Vancomycin IV 1,000 MG/200 ML BAG 200 MG IV (09:25)
[2020-09-10 09:39] LABS: Erythrocyte Sedimentation Rate 11 mm/hr (0-20)
[2020-09-10 09:40] LABS: Hematocrit 27.9 % (40-54); Hemoglobin 8.7 g/dL (13.0-16.5); Mean Corp Hgb Conc 31.2 g/dL (32-36); Mean Corpuscular Hgb 31.1 pg (27.0-32.0); Mean Corpuscular Volume 99.6 fL (80-94); Mean Platelet Vol. 8.8 fl (6.2-12.0); Platelet Count 229 K/mm3 (150-450); RBC Distribution Width CV 17.2 % (11.6-14.6); RBC Distribution Width SD 61.1 fl (35.1-43.9)
[2020-09-10 09:49] LABS: Anion Gap 8 (5-15); BUN 28 mg/dL (7-18); BUN/Creat Ratio 23.9 RATIO (10-20); Calcium,Total 8.4 mg/dL (8.5-10.1); Chloride 97 mmol/L (98-107); Creatinine, Serum 1.17 mg/dL (0.70-1.30); EST Glomerular Filtration Rate 65 mL/min (>60); Est Glom Filt Rate - Afr Amer 78 mL/min (>60); Estimated Creatinine Clearance 61.72 ml/min; Glucose 86 mg/dL (74-106); Potassium 3.2 mmol/L (3.5-5.1); Sodium Level 140 mmol/L (136-145)
[2020-09-10 11:16] VITALS: BP 118/67; PULSE 78
== END 2020-09-10 12:00 | disposition home or self-care (01) ==
LOC: MEDOUTP 08:47
PROVIDERS: Nurse Practitioner Family; PCP Family Medicine; Referring Provider Internal Medicine Infectious Disease; Visit Provider Internal Medicine Infectious Disease
DX: M86.8X7 Other osteomyelitis, ankle and foot (principal); R06.00 Dyspnea, unspecified
CPT/HCPCS: 96365; 80048; 83880; 85027; 85652; J7050; A4216

== ENCOUNTER 2020-09-11 08:34 | Outpatient (CLI) | payer MEDICARE, OTHER, SELFPAY ==
[2020-09-10 09:11] VITALS: BMI 25.7
[2020-09-11] MEDS: Vancomycin IV 1,000 MG/200 ML BAG 200 MG IV (09:18)
[2020-09-11] MEDS: 0.9 % NaCl (Sterile) Posiflush 10 mL IV ×2 (09:18→10:40)
== END 2020-09-11 10:41 | disposition home or self-care (01) ==
LOC: MEDOUTP 08:35 → MS3 08:37
PROVIDERS: PCP Family Medicine; Referring Provider Internal Medicine Infectious Disease; Visit Provider Internal Medicine Infectious Disease
DX: M86.00 Acute hematogenous osteomyelitis, unspecified site (principal)
CPT/HCPCS: 96365; J7050

== ENCOUNTER 2020-09-12 08:48 | Outpatient (CLI) | payer MEDICARE, OTHER, SELFPAY ==
[2020-09-12 09:00] VITALS: BP 102/50; PULSE 83; RESP 18; TEMP 36.4; O2SAT 100
[2020-09-12] MEDS: Vancomycin IV 1,000 MG/200 ML BAG 200 MG IV (09:06)
[2020-09-12] MEDS: 0.9% Saline Lock 10 ML Syringe IV ×2 (09:06→10:22)
== END 2020-09-12 10:35 | disposition home or self-care (01) ==
LOC: MEDOUTP 08:51 → MS3 08:57
PROVIDERS: PCP Family Medicine; Referring Provider Internal Medicine Infectious Disease; Visit Provider Internal Medicine Infectious Disease
DX: M86.00 Acute hematogenous osteomyelitis, unspecified site (principal)
CPT/HCPCS: 96365; 96366; J7050; A4216

== ENCOUNTER 2020-09-13 09:00 | Outpatient (CLI) | payer MEDICARE, OTHER, SELFPAY ==
[2020-09-13 09:08] VITALS: BP 104/69; PULSE 97; RESP 16; TEMP 35.8; O2SAT 98; BMI 25.7
[2020-09-13] MEDS: 0.9% NaCl IVPB Med Flush (250 mL) 15 ML IV (09:11)
[2020-09-13] MEDS: Vancomycin IV 1,000 MG/200 ML BAG 200 MG IV (09:11)
[2020-09-13] MEDS: 0.9% NaCl PICC Flush IV ×2 (09:12→10:43)
== END 2020-09-13 12:00 | disposition home or self-care (01) ==
LOC: MEDOUTP 09:03
PROVIDERS: PCP Family Medicine; Referring Provider Internal Medicine Infectious Disease; Visit Provider Internal Medicine Infectious Disease
DX: M86.071 Acute hematogenous osteomyelitis, right ankle and foot (principal)
CPT/HCPCS: 96365; 96366; J7050; A4216

== ENCOUNTER → 2020-09-14 08:56 | Outpatient (CLI) | payer MEDICARE, OTHER, SELFPAY ==
[2020-09-13 09:08] VITALS: BMI 25.7
[2020-09-14] MEDS: Vancomycin IV 1,000 MG/200 ML BAG 200 MG IV (09:09)
[2020-09-14] MEDS: 0.9% NaCl PICC Flush IV ×2 (09:12→10:18)
[2020-09-14] MEDS: 0.9% NaCl IVPB Med Flush (250 mL) 15 ML IV (09:12)
[2020-09-14 09:13] VITALS: BP 91/44; PULSE 73; RESP 16; TEMP 36.1; O2SAT 98; BMI 26.7
[2020-09-14 10:24] VITALS: BP 104/53; PULSE 93; RESP 16; TEMP 36.4; O2SAT 98
== END ==
PROVIDERS: PCP Family Medicine; Referring Provider Internal Medicine Infectious Disease; Visit Provider Internal Medicine Infectious Disease
DX: M86.00 Acute hematogenous osteomyelitis, unspecified site (principal)
CPT/HCPCS: 96365; J7050; A4216

== ENCOUNTER → 2020-09-15 08:37 | Outpatient (CLI) | payer MEDICARE, OTHER, SELFPAY ==
[2020-09-13 09:08] VITALS: BMI 25.7
[2020-09-14 09:13] VITALS: BMI 26.7
[2020-09-15 08:44] VITALS: BP 107/42; PULSE 72; RESP 18; TEMP 36.2; O2SAT 95; BMI 26.7
[2020-09-15] MEDS: 0.9% NaCl IVPB Med Flush (250 mL) 15 ML IV (08:51)
[2020-09-15] MEDS: 0.9% NaCl PICC Flush IV ×3 (08:51→10:13)
[2020-09-15] MEDS: Vancomycin IV 1,000 MG/200 ML BAG 200 MG IV (08:57)
[2020-09-15 10:15] VITALS: BP 102/47; PULSE 65; RESP 16; TEMP 36.6; O2SAT 97
--- NOTE | 2020-09-15 14:56 | PCM.PN.ID ---
Subjective: Feeling ok, foot improving, no issues with picc, going to infusion center daily. No fever, no n/v/d. - Physical Exam Vitals/I&O's: Vital Signs Temp Pulse Resp BP Pulse Ox 97.9 F 65 16 102/47 L 97 09/15/20 10:15 09/15/20 10:15 09/15/20 10:15 09/15/20 10:15 09/15/20 10:15 Oxygen Delivery Method Room Air Weight: 89.358 kg Body Mass Index (BMI) 26.7 Finger Stick Blood Glucose 318 Intake and Output for Last 24 Hours 09/13/20 09/14/20 09/15/20 23:59 23:59 23:59 Intake Total 220 / 220 Balance 220 / 220 General: Alert, Cooperative, No apparent distress Lungs: Clear to auscultation, Normal air movement Cardiovascular: Regular rate, Regular Rhythm Abdomen: Soft, Non Tender, Non-Distended Skin: Ulcer/ Wound - R foot sutures in place, no drainage, minimal redness Current Medications Heparin Sodium (Beef Lung) (Heparin Pf Lock 10 Units/Ml 50 Units/5 Ml Syringe) 50 units IV UD PRN PRN Reason: HEPARIN FLUSH Stop: 09/15/20 22:00 Sodium Chloride () 250 mls @ 15 mls/hr IV .[id number] PRN PRN Reason: SALINE FLUSH Stop: 09/15/20 22:00 Last Infusion: 09/15/20 10:11 Dose: Infused Documented by: Sodium Chloride (0.9% Nacl Picc Flush) 10 - 40 ml IV UD PRN PRN Reason: PICC FLUSH Stop: 09/15/20 22:00 Last Admin: 09/15/20 10:13 Dose: 10 ml Documented by: Medical Necessity - Tobacco Use Smoking Status: Former smoker Route of nutrition/ use of supplements: [] Nutritional Intake: [] IV Site: [] Wills Catheter: [] - Assessment/Plan Antibiotics: [] Assessment/Plan: [] R foot MRSA osteo - bcx neg. Now s/p I&D by Dr. Shah 08/15/20. On vanc, picc in place, on 6 weeks iv vanc, stop date 09/26/20, weekly bmp, cbc, esr, and vanc trough. ESR now normal. Will get labs tomorrow. Cr improved. After iv vanc, may do course of po doxy if more antibiotic still needed. Return to clinic as needed, will d/w Dr. Agosto
== END ==
PROVIDERS: PCP Family Medicine; Referring Provider Internal Medicine Infectious Disease; Visit Provider Internal Medicine Infectious Disease
DX: M86.8X7 Other osteomyelitis, ankle and foot (principal); E11.621 Type 2 diabetes mellitus with foot ulcer; E11.51 Type 2 diabetes mellitus with diabetic peripheral angiopathy without gangrene; L97.513 Non-pressure chronic ulcer of other part of right foot with necrosis of muscle; E11.42 Type 2 diabetes mellitus with diabetic polyneuropathy; I25.5 Ischemic cardiomyopathy; Z95.0 Presence of cardiac pacemaker; Z86.14 Personal history of Methicillin resistant Staphylococcus aureus infection; I25.10 Atherosclerotic heart disease of native coronary artery without angina pectoris; E11.22 Type 2 diabetes mellitus with diabetic chronic kidney disease; Z99.2 Dependence on renal dialysis; N18.6 End stage renal disease; M86.171 Other acute osteomyelitis, right ankle and foot; Z89.431 Acquired absence of right foot; Z89.512 Acquired absence of left leg below knee; L85.3 Xerosis cutis; E11.622 Type 2 diabetes mellitus with other skin ulcer; L97.811 Non-pressure chronic ulcer of other part of right lower leg limited to breakdown of skin
CPT/HCPCS: 96365; 11042; 11043; J7050; A4216

== ENCOUNTER → 2020-09-16 08:59 | Outpatient (CLI) | payer MEDICARE, OTHER, SELFPAY ==
[2020-09-13 09:08] VITALS: BMI 25.7
[2020-09-15 14:17] VITALS: BMI 29.0
[2020-09-16 09:06] VITALS: BP 105/48; PULSE 67; RESP 18; TEMP 36.4; O2SAT 96; BMI 26.7
[2020-09-16] MEDS: Vancomycin IV 1,000 MG/200 ML BAG 200 MG IV (09:19)
[2020-09-16 09:22] LABS: Absolute Lymphocyte Count 0.39 X10^3/uL (0.83-4.51); Absolute Neutrophil Count 4.9 X10^3/uL (2.0-7.7); Basophil# 0.04 X10^3/uL; Basophil% 0.6 % (0-1); Eosinophil# 0.14 X10^3/uL; Eosinophils% 2.3 % (0-5); Hematocrit 26.7 % (40-54); Lymphocyte # 0.39 X10^3/ul (4.0); Lymphocyte % 6.3 % (19-41); Mean Corpuscular Hgb 30.4 pg (27.0-32.0); Mean Corpuscular Volume 101.5 fL (80-94); Mean Platelet Vol. 8.6 fl (6.2-12.0); Monocyte# 0.64 X10^3/uL; Monocyte% 10.4 % (0-10); NRBC Flagged by Analyzer 0 % (0-5); Neutrophil # 4.93 X10^3/uL (2.7-7.7); Neutrophil % 80.1 % (47-70); POSITIVE DIFFERENTIAL YES; Platelet Count 178 K/mm3 (150-450); RBC Distribution Width SD 62.9 fl (35.1-43.9); Red Blood Count 2.63 M/mm3 (4.6-6.2); White Blood Count 6.2 K/mm3 (4.4-11.0)
[2020-09-16 09:23] LABS: Differential Indicated SCAN CRITERIA MET
[2020-09-16 09:35] LABS: Anion Gap 5 (5-15); BUN 33 mg/dL (7-18); BUN/Creat Ratio 22.6 RATIO (10-20); Calcium,Total 8.1 mg/dL (8.5-10.1); Chloride 101 mmol/L (98-107); Creatinine, Serum 1.46 mg/dL (0.70-1.30); EST Glomerular Filtration Rate 50 mL/min (>60); Est Glom Filt Rate - Afr Amer 61 mL/min (>60); Estimated Creatinine Clearance 49.46 ml/min; Glucose 131 mg/dL (74-106); Sodium Level 137 mmol/L (136-145)
[2020-09-16 09:59] LABS: Vancomycin, Trough Level 26.1 ug/mL (5.0-15.0)
[2020-09-16 10:51] VITALS: BP 105/48; PULSE 68
== END ==
PROVIDERS: PCP Family Medicine; Referring Provider Internal Medicine Infectious Disease; Visit Provider Internal Medicine Infectious Disease
DX: M86.071 Acute hematogenous osteomyelitis, right ankle and foot (principal)
CPT/HCPCS: 96365; 36592; 80048; 80202; 85025; J7050; A4216

== ENCOUNTER 2020-09-18 08:42 | Outpatient (CLI) | payer MEDICARE, OTHER, SELFPAY ==
[2020-09-16 09:06] VITALS: BMI 26.7
[2020-09-18 10:17] VITALS: BP 109/47; PULSE 72; RESP 72; TEMP 36.7; O2SAT 97
[2020-09-18] MEDS: 0.9 % NaCl (Sterile) Posiflush 10 mL IV (11:12)
[2020-09-18 11:14] VITALS: BP 120/66; PULSE 98; RESP 16; TEMP 36.7; O2SAT 100
== END 2020-09-18 11:13 | disposition home or self-care (01) ==
LOC: MEDOUTP 08:43 → PCU 08:44
PROVIDERS: PCP Family Medicine; Referring Provider Internal Medicine Infectious Disease; Visit Provider Internal Medicine Infectious Disease
DX: M86.9 Osteomyelitis, unspecified (principal)
CPT/HCPCS: 96365; 96366; J7040; J7050

== ENCOUNTER 2020-09-19 09:01 | Outpatient (CLI) | payer MEDICARE, OTHER, SELFPAY ==
[2020-09-16 09:06] VITALS: BMI 26.7
[2020-09-19] MEDS: 0.9% Saline Lock 10 ML Syringe IV (09:16)
[2020-09-19 09:18] VITALS: BP 105/45; PULSE 77; RESP 18; TEMP 36.9; O2SAT 93
[2020-09-19 10:46] VITALS: BP 122/60; PULSE 57; RESP 20; TEMP 36.9; O2SAT 94
[2020-09-19] MEDS: 0.9 % NaCl (Sterile) Posiflush 10 mL IV (10:53)
== END 2020-09-19 11:04 | disposition home or self-care (01) ==
LOC: MEDOUTP 09:02 → MS3 09:02
PROVIDERS: PCP Family Medicine; Referring Provider Internal Medicine Infectious Disease; Visit Provider Internal Medicine Infectious Disease
DX: M86.9 Osteomyelitis, unspecified (principal)
CPT/HCPCS: 96365; 96366; J7050; A4216

== ENCOUNTER 2020-09-20 08:48 | Outpatient (CLI) | payer MEDICARE, OTHER, SELFPAY ==
[2020-09-16 09:06] VITALS: BMI 26.7
[2020-09-20 08:59] VITALS: BP 102/46; PULSE 101; RESP 16; TEMP 35.7; O2SAT 94; BMI 28.3
[2020-09-20] MEDS: 0.9% NaCl IVPB Med Flush (250 mL) 15 ML IV (09:10)
[2020-09-20] MEDS: 0.9% NaCl PICC Flush IV ×2 (09:10→10:45)
[2020-09-20 10:47] VITALS: BP 118/67; PULSE 78
== END 2020-09-20 13:00 | disposition home or self-care (01) ==
LOC: MEDOUTP 08:49
PROVIDERS: PCP Family Medicine; Referring Provider Internal Medicine Infectious Disease; Visit Provider Internal Medicine Infectious Disease
DX: M86.9 Osteomyelitis, unspecified (principal)
CPT/HCPCS: 96365; J7050; A4216

== ENCOUNTER 2020-09-21 08:54 | Outpatient (CLI) | payer MEDICARE, OTHER, SELFPAY ==
[2020-09-20 08:59] VITALS: BMI 28.3
[2020-09-21] MEDS: 0.9% NaCl IVPB Med Flush (250 mL) 15 ML IV (09:04)
[2020-09-21] MEDS: 0.9% NaCl PICC Flush IV ×2 (09:04→10:33)
[2020-09-21 09:09] VITALS: BP 108/53; PULSE 80; RESP 16; TEMP 36.6; O2SAT 98; BMI 28.3
== END 2020-09-21 12:00 | disposition home or self-care (01) ==
LOC: MEDOUTP 08:54
PROVIDERS: PCP Family Medicine; Referring Provider Internal Medicine Infectious Disease; Visit Provider Internal Medicine Infectious Disease
DX: M86.071 Acute hematogenous osteomyelitis, right ankle and foot (principal)
CPT/HCPCS: 96365; J7050; A4216

== ENCOUNTER 2020-09-22 08:52 | Outpatient (CLI) | payer MEDICARE, OTHER, SELFPAY ==
[2020-09-21 09:09] VITALS: BMI 28.3
[2020-09-22] MEDS: 0.9% NaCl IVPB Med Flush (250 mL) 15 ML IV (09:08)
[2020-09-22] MEDS: 0.9% NaCl PICC Flush IV ×2 (09:08→10:45)
[2020-09-22 09:17] VITALS: BP 110/54; PULSE 91; RESP 16; TEMP 35.8; O2SAT 100; BMI 28.3
[2020-09-22 10:50] VITALS: BP 109/58; PULSE 72; RESP 16; TEMP 35.8; O2SAT 95
== END 2020-09-22 13:00 | disposition home or self-care (01) ==
LOC: MEDOUTP 08:53
PROVIDERS: PCP Family Medicine; Referring Provider Internal Medicine Infectious Disease; Visit Provider Internal Medicine Infectious Disease
DX: M86.171 Other acute osteomyelitis, right ankle and foot (principal); E11.621 Type 2 diabetes mellitus with foot ulcer; E11.51 Type 2 diabetes mellitus with diabetic peripheral angiopathy without gangrene; L97.513 Non-pressure chronic ulcer of other part of right foot with necrosis of muscle; E11.42 Type 2 diabetes mellitus with diabetic polyneuropathy; I25.5 Ischemic cardiomyopathy; Z86.14 Personal history of Methicillin resistant Staphylococcus aureus infection; E11.22 Type 2 diabetes mellitus with diabetic chronic kidney disease; Z99.2 Dependence on renal dialysis; N18.6 End stage renal disease; Z89.431 Acquired absence of right foot; Z89.512 Acquired absence of left leg below knee; L85.3 Xerosis cutis; E11.622 Type 2 diabetes mellitus with other skin ulcer; L97.811 Non-pressure chronic ulcer of other part of right lower leg limited to breakdown of skin
CPT/HCPCS: 96365; 96366; 11042; 11043; J7050; A4216

== ENCOUNTER → 2020-09-23 08:50 | Outpatient (CLI) | payer MEDICARE, OTHER, SELFPAY ==
[2020-09-13 09:08] VITALS: BMI 25.7
[2020-09-22 14:43] VITALS: BMI 29.0
[2020-09-23] MEDS: 0.9% NaCl PICC Flush IV ×2 (09:13→10:44)
[2020-09-23] MEDS: 0.9% NaCl IVPB Med Flush (250 mL) 15 ML IV (09:13)
[2020-09-23 09:15] VITALS: BP 125/62; PULSE 64; RESP 16; TEMP 36.6; O2SAT 100; BMI 28.3
[2020-09-23 09:33] LABS: Erythrocyte Sedimentation Rate 4 mm/hr (0-20)
[2020-09-23 09:35] LABS: Hematocrit 26.8 % (40-54); Hemoglobin 8.3 g/dL (13.0-16.5); Mean Corpuscular Hgb 31.9 pg (27.0-32.0); Mean Corpuscular Volume 103.1 fL (80-94); Platelet Count 175 K/mm3 (150-450); RBC Distribution Width CV 17.2 % (11.6-14.6); RBC Distribution Width SD 63.5 fl (35.1-43.9); White Blood Count 5.5 K/mm3 (4.4-11.0)
[2020-09-23 09:38] LABS: Anion Gap 6 (5-15); BUN 30 mg/dL (7-18); BUN/Creat Ratio 23.3 RATIO (10-20); Calcium,Total 8.1 mg/dL (8.5-10.1); Chloride 103 mmol/L (98-107); Creatinine, Serum 1.29 mg/dL (0.70-1.30); EST Glomerular Filtration Rate 58 mL/min (>60); Est Glom Filt Rate - Afr Amer 70 mL/min (>60); Estimated Creatinine Clearance 54.32 ml/min; Glucose 78 mg/dL (74-106); Potassium 3.6 mmol/L (3.5-5.1); Sodium Level 142 mmol/L (136-145)
[2020-09-23 09:59] LABS: Vancomycin, Trough Level 20.6 ug/mL (5.0-15.0)
[2020-09-23 10:45] VITALS: BP 124/67; PULSE 67
== END ==
PROVIDERS: PCP Family Medicine; Referring Provider Internal Medicine Infectious Disease; Visit Provider Internal Medicine Infectious Disease
DX: M86.9 Osteomyelitis, unspecified (principal)
CPT/HCPCS: 96365; 36592; 80048; 80202; 85027; 85652; J7050; A4216

== ENCOUNTER 2020-09-26 09:06 | Outpatient (CLI) | payer MEDICARE, OTHER, SELFPAY ==
[2020-09-23 09:15] VITALS: BMI 28.3
[2020-09-26 09:11] VITALS: BP 116/58; PULSE 97; RESP 18; TEMP 37.1; O2SAT 99
[2020-09-26] MEDS: 0.9% Saline Lock 10 ML Syringe IV (10:30)
--- NOTE | 2020-09-26 10:39 | NURSING ---
PICC line not d/c d/t the pt missing a dose of his antibiotic Vancomycin 750mg.. Instructed pt and family member to call Dr. Bey office in am to see if need to get the missed dose and then they will be able to remove the PICC line.
== END 2020-09-26 10:36 | disposition home or self-care (01) ==
LOC: MEDOUTP 09:08 → MS3 09:08
PROVIDERS: PCP Family Medicine; Referring Provider Internal Medicine Infectious Disease; Visit Provider Internal Medicine Infectious Disease
DX: M86.9 Osteomyelitis, unspecified (principal)
CPT/HCPCS: 96365; J7050; A4216

== ENCOUNTER 2020-09-28 09:00 | Outpatient (RCR) | payer MEDICARE, OTHER, SELFPAY ==
[2020-08-30 00:28] VITALS: BP 131/65; PULSE 102; RESP 18; TEMP 36.2; BMI 27.2
[2020-09-08 14:02] VITALS: BP 103/33; PULSE 77; RESP 20; TEMP 36.2; BMI 29.0
--- NOTE | 2020-09-08 16:10 | PN.PCM_ITS ---
(1) Below-knee amputation of left lower extremity Status: Chronic Code(s): S88.112A - Complete traumatic amputation at level between knee and ankle, left lower leg, initial encounter (2) Peripheral vascular disease Status: Chronic Code(s): I73.9 - Peripheral vascular disease, unspecified (3) Osteomyelitis of right foot Status: Acute Code(s): M86.9 - Osteomyelitis, unspecified (4) Ulcer of right foot with necrosis of bone Status: Acute Code(s): L97.514 - Non-pressure chronic ulcer of other part of right foot with necrosis of bone (5) Type 2 diabetes mellitus with diabetic polyneuropathy Status: Chronic Code(s): E11.42 - Type 2 diabetes mellitus with diabetic polyneuropathy (6) Delayed wound healing Status: Chronic Code(s): T14.8XXD - Other injury of unspecified body region, subsequent encounter (7) Ischemic cardiomyopathy Status: Chronic Code(s): I25.5 - Ischemic cardiomyopathy (8) Presence of permanent cardiac pacemaker Status: Chronic Code(s): Z95.0 - Presence of cardiac pacemaker Comment: 2006, 2012 gen change Type of Wound Date of Service: 09/08/20 Chief Complaint: Follow-up right lateral diabetic foot ulcer now revisional metatarsal resection (4 and 5) History of Wound: 74-year-old male with a left below knee amputation and right transmetatarsal amp follows up for ulcer of lateral foot. He was recently hospitalized for sepsis and underwent revisional 4th and 5th metatarsal resections with Dr. Shah on 08/15/2020. He denies pain. He denies fever, chills, nausea, vomiting. He had MRSA growth and is currently completing a 6- week course of IV vancomycin with end date of . He is under the management of infectious disease physician. He was residing at [facility] and reports he left AGAINST MEDICAL ADVICE because he felt his life is threatened. During this urgent transition out of the alf facility, his antibiotics were discontinued however he still has a PICC line in place. He relates he is also here today to follow-up with infectious disease specialist. He has only been placing weight on his right foot for transfers. He denies fever, chill, nausea, vomiting. He is having a decline in cardiac function and needs to have his pacemaker updated. He relates he has 56 days remaining to get this pacemaker updated. He relates there at least needs to be resolution of infection to proceed forward with this and he is not sure if the ulcer itself needs to be healed. Progress of Wound: Right foot status post additional fourth and fifth ray resections stable - Physical Exam Vital Signs Temp Pulse Resp BP 97.1 F L 77 20 H 103/33 L 09/08/20 14:02 09/08/20 14:02 09/08/20 14:02 09/08/20 14:02 General: Alert, Oriented x3, Cooperative, No apparent distress HEENT: Atraumatic Extremities: No cyanosis, Capillary Refill Less than 3 Seconds, No Calf Tenderness - Negative Veronica and Kaur sign right, Diminished Peripheral Pulses, Edema - Decreased left lower extremity and moderate right lower extremity, - - Left below-knee amputation without ulceration Skin: Incision - Status post revisional fourth and fifth ray resection site is intact with sutures. The site is not coapting and there is continued devitalization and fibers tissue including moisture to the site. There is no purulence, erythema, odor, streaking or eschar formation. Adjacent skin hairless/atrophic, - - Callus with evidence of prior eschar noted to below-knee amputation central stump site upon debridement there is no ulcer or infection. His skin is also atrophic and hairless to the left lower extremity Wound Measurements and Assessment WC - Nurse 1 - General Ulcer Measurement Start: 09/08/20 14:02 Freq: Status: Active Protocol: Activity Type Activity Date Activity User E-Sign Co-Sign Detail Recorded Client Recorded Date Recorded By Document 09/08/20 14:02 DL [id number] 09/08/20 14:11 DL 09/08/20 14:02 Wound Center Nurse 1 [Ulcer Assessment] #3- R LAT FOOT -Current Size (cm) - Length 3.8 -Current Size (cm) - Width 1.2 -Current Size (cm) - Depth 0.7 -Total Square Cm 4.56 -Photo Taken Yes -Exudate Amt Medium -Wound Margin Distinct, Outline Attached -Granulation Amt None Present (0 %) -Necrosis Amt Large (67-100%) -Necrotic Tissue Type Adherent Slough -Structure Exposed N/A -Texture (Allison-wound Skin Appearance) Scarring -Moisture (Allison-wound Skin Appearance Maceration ) -Color (Allison-wound Skin Appearance) No Abnormality -Temperature (Allison-wound Skin No Abnormality Appearance) (Pt Warm) -Tenderness on Palpation (Allison-wound No Skin Appearance) -Ulcer Cleansing Wound Cleanser -Foul Odor after Cleansing No -Anesthetic Used 4% Lidocaine Solution [Edema Assessment] -Right Calf (cm) 41 -Right Ankle (cm) 25 - Nurse 2 - General Ulcer CM Notes Start: 09/08/20 14:02 Freq: Status: Active Protocol: Activity Type Activity Date Activity User E-Sign Co-Sign Detail Recorded Client Recorded Date Recorded By Document 09/08/20 14:47 [id number] 09/08/20 14:50 09/08/20 14:47 Wound Center Nurse 2 [Procedure/Treatment] #3- R LAT FOOT -Correct Patient No -Correct Side, Site, Position No -Correct Procedure No -Procedure Performed No -Circular Undermining No -Wound/Ulcer Outcome Not Healed -Ulcer Cleansing Rinsed/ Irrigated with Saline -Foul Odor after Cleansing No -Bioengineered Tissue No -Bleeding Controlled with Pressure -Offloading Yes -Type of Offloading Camwalker -Treatment Response Procedure Tolerated Well -Debridement - Subq, 1st 20sq cm Yes [See Physician Procedure note for Specifics] Pain Scale: 0-10 Numeric [Pain] -Is Patient Pain Free? Yes - Nurse 3 - General Ulcer D/C NN Start: 09/08/20 14:02 Freq: Status: Active Protocol: Activity Type Activity Date Activity User E-Sign Co-Sign Detail Recorded Client Recorded Date Recorded By Document 09/08/20 15:27 [id number] 09/08/20 15:28 09/08/20 15:27 Wound Care Nurse 3 [Wound Dressing] #3- R LAT FOOT -Other Dressing saline moisened gauze -Primary Dressing Covered/Secured Dry Gauze,Dry with Gauze & Roll Gauze,Secured with Tape -Other Covering jem [Post Procedure Tolerated] -Treatment Response Procedure Tolerated Well Pain Scale: 0-10 Numeric [Pain] -Is Patient Pain Free? Yes - Visit Discharge [Visit Discharge Information] -Discharge Condition Stable -Ambulatory Status Wheelchair -Transportation Private Auto -Medication Reconcilliation completed No & provided to patient/care provider -Clinical Summary of Care Provided Yes Musculoskeletal: No Tenderness to Palpation of Joints or Extremities, Muscle Wasting, - - Right transmetatarsal amputation with compartment soft Neurological: - - Lack of normal epicritic sensation is consistent with neuropathic status Psych/Mental Status: Normal Affect, Appropriate Debridement Note Post-Debridement Measurements/Treatment WC - Nurse 2 - General Ulcer CM Notes Start: 09/08/20 14:02 Freq: Status: Active Protocol: Activity Type Activity Date Activity User E-Sign Co-Sign Detail Recorded Client Recorded Date Recorded By Document 09/08/20 14:47 [id number] 09/08/20 14:50 [email or web address] 09/08/20 14:47 Wound Center Nurse 2 #3- R LAT FOOT -Correct Patient No -Correct Side, Site, Position No -Correct Procedure No -Procedure Performed No -Circular Undermining No -Wound/Ulcer Outcome Not Healed -Ulcer Cleansing Rinsed/ Irrigated with Saline -Foul Odor after Cleansing No -Bioengineered Tissue No -Bleeding Controlled with Pressure -Offloading Yes -Type of Offloading Camwalker -Treatment Response Procedure Tolerated Well -Debridement - Subq, 1st 20sq cm Yes Pain Scale: 0-10 Numeric Is Patient Pain Free? Yes - Nurse 3 - General Ulcer D/C NN Start: 09/08/20 14:02 Freq: Status: Active Protocol: Activity Type Activity Date Activity User E-Sign Co-Sign Detail Recorded Client Recorded Date Recorded By Document 09/08/20 15:27 RB [email or web address] 09/08/20 15:28 RB 09/08/20 15:27 Wound Care Nurse 3 #3- R LAT FOOT -Other Dressing saline moisened gauze -Primary Dressing Covered/Secured with Dry Gauze,Dry Gauze & Roll Gauze,Secured with Tape -Other Covering jem Treatment Response Procedure Tolerated Well Pain Scale: 0-10 Numeric Is Patient Pain Free? Yes WC - Visit Discharge Discharge Condition Stable Ambulatory Status Wheelchair Transportation Private Auto Medication Reconcilliation completed & No provided to patient/care provider Clinical Summary of Care Provided Yes Wound debrided: surgical site Laterality: Right No debridement was completed today Assessment/Plan Active Problems (Last Updated 08/16/20 @ 13:[address] 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) Peripheral vascular disease (Chronic) Osteomyelitis of right foot (Acute) Ulcer of right foot with necrosis of bone (Acute) Type 2 diabetes mellitus with diabetic polyneuropathy (Chronic) Delayed wound healing (Chronic) Ischemic cardiomyopathy (Chronic) Presence of permanent cardiac pacemaker (Chronic) 2006, 2012 gen change Assessment: s/p revisional fourth and fifth ray resections with acute osteom yelitis (DOS 08/15/20, Dr. Shah). healed left leg ulcer at below knee amputation site with callous/no wound or infection. Peripheral vascular disease. Coronary artery disease (EF ~ 19 %). Diabetes with insulin dependency. Polyneuropathy. malnutrition suspected. Chronic kidney disease on hemodialysis. non healing. Cardiac disease with pacemaker placed (needs exchanged soon) Plan: I reviewed and discussed his case. His right surgical site is stable however healing potential remains guarded given vascular status. We discussed that is not likely his surgical site or ulcer on his right foot will heal within 56 days or even during an even extended timeframe. We discussed amputation as an option as well however it is not likely that that would be completed and healed within the 56 days that he is communicated he needs to have his pacemaker changed by this time. The benefits and risks of both of these treatment options were reviewed. The benefits of amputation include completely removing the nidus of infection, likely increased ambulation ability healing occurs. Risks and consequences of the amputation include further increased cardiac load, continued possibility of nonhealing or infection statuses. He elects to proceed forward with more of a palliative type care program at this time and understands the goals of this treatment plan are to maintain or resolve infection in addition to disrupting his remaining daily life is much as possible. Risks of proceeding with wound care alone on a palliative basis include lack of resolution of infection and compromised cardiac pacemaker plan. Therefore, he was advised to change dressing daily with dakin's wet to dry dressing. His vascular status has been optimized with a recent drug coated balloon angioplasty of the femoral artery with Dr. Busch. To continue on Plavix and aspirin. His recent hospital admission diagnostic data and intervention was reviewed. He is being treated with a 6-week course of IV vancomycin with end date of 09-26-20. An additional course of oral doxycycline also be considered. Infectious disease physician, Dr. Glass is managing. Serial updated labs were reviewed today fro, 09/04/20 (CBC, CMP). His labs are in [facility]. Cell count of 8.2, creatinine of 1.51 and creatinine clearance of 47.82. He was previously at a alf facility and signed out AGAINST MEDICAL ADVICE. His pathology bone fragments that were debrided in surgery demonstrate acute osteomyelitis. Therefore he is taking an unplanned break from his IV antibiotic regimen that was recommended by infectious disease specialist. He was hoping to be seen today however it appears this was not scheduled. I recommended contacting Dr. Glass's office to proceed forward with getting set up with the antibiotics in the outpatient setting and to consider doing a telehealth or phone follow-up. He understands the exact plan may need to be altered at this point. He was also reassured that there are no local signs of infection or purulence today. To continue offloading with pillow boot while resting in bed and also CAM walker with limited heel touch during short household periods of ambulation. To use assistive device. . To continue to improve glucose management. I recommend segundo or glucerna as a nutritional supplement. It is also noted he is on prednisone and this may be contributing to some of his delayed healing. . His left limb remains healed. The callus was gently debrided with a 10 blade scalpel today without incident. He is advised to keep this well-padded and protected. To keep the adjacent skin integrity intact with lotion. To avoid direct pressure. To continue to work with his prosthetic adjustment specialist. He was advised to remove his sleeve to allow his skin to rest in the middle of the day so moisture does not build up at this friable site. . He has declining cardiac function needs to have his pacemaker replaced. I recommend he continues to follow-up with cardiology and infectious disease to determine the most appropriate timeframe for him to have this performed. I do not anticipate wound healing given his vascular status and lack of recent progress. His lower extremity edema is addressed today with bilateral Jem wrap application. He was advised to perform intermittent elevation and lower extremity muscular contraction hourly. To return to clinic in one week or sooner if concerns. I answered all of his questions. Note: [employer] speech recognition radiology transcriptionist software was used to create portions of this document. Sound-alike and misspelled words, as well as other radiology transcriptionist errors may be contained in the documentation. The problems addressed require a moderate decision making level which includes one or more chronic illnesses (w/ exacerbation, progression, or side effects), two or more stable chronic illnesses, one undiagnosed new problem w/ uncertain prognosis, one acute illness with systemic symptoms, or one acute complicated injury. The medical decision making level is moderate based on data including at least three of the following: review of prior external notes, review of a test, ordering a test, assessment requiring an independent historian. The medical decision making level is moderate based on data including independent interpretation of a test performed by another qualified health healthcare educator. The medical decision making level iss moderate based on data including the discussion of management or test interpretation with another qualified health healthcare educator or appropriate source. The medical decision making level is moderate. There is noted moderate risk of morbidity after considering this treatment plan and diagnostic data. Considerations were given to prescription management, decisions regarding surgical options, or social determinants of health.
[2020-09-15 14:17] VITALS: BP 98/47; PULSE 77; RESP 16; TEMP 36.5; BMI 29.0
--- NOTE | 2020-09-15 14:21 | WC ---
sutures intact to part of wound
--- NOTE | 2020-09-15 15:41 | PCM.WC.PN ---
(1) Below-knee amputation of left lower extremity Status: Chronic Code(s): S88.112A - Complete traumatic amputation at level between knee and ankle, left lower leg, initial encounter (2) Peripheral vascular disease Status: Chronic Code(s): I73.9 - Peripheral vascular disease, unspecified (3) Osteomyelitis of right foot Status: Acute Code(s): M86.9 - Osteomyelitis, unspecified (4) Ulcer of right foot with necrosis of bone Status: Acute Code(s): L97.514 - Non-pressure chronic ulcer of other part of right foot with necrosis of bone (5) Type 2 diabetes mellitus with diabetic polyneuropathy Status: Chronic Code(s): E11.42 - Type 2 diabetes mellitus with diabetic polyneuropathy (6) Delayed wound healing Status: Chronic Code(s): T14.8XXD - Other injury of unspecified body region, subsequent encounter (7) Ischemic cardiomyopathy Status: Chronic Code(s): I25.5 - Ischemic cardiomyopathy (8) Presence of permanent cardiac pacemaker Status: Chronic Code(s): Z95.0 - Presence of cardiac pacemaker Comment: 2006, 2012 gen change (9) Ulcer of right foot with fat layer exposed Status: Chronic Code(s): L97.512 - Non-pressure chronic ulcer of other part of right foot with fat layer exposed (10) Xerosis cutis Status: Chronic Code(s): L85.3 - Xerosis cutis Type of Wound Date of Service: 09/15/20 Chief Complaint: Follow-up right lateral diabetic foot ulcer now revisional metatarsal resection (4 and 5) History of Wound: 74-year-old male with a left below knee amputation and right transmetatarsal amp follows up for ulcer of lateral foot. He was recently hospitalized for sepsis and underwent revisional 4th and 5th metatarsal resections with Dr. Shah on 08/15/2020. He denies pain. He denies fever, chills, nausea, vomiting. He had MRSA growth and is currently completing a 6-week course of IV vancomycin with end date of . He is under the management of infectious disease physician. Once he returned home from a snf facility, he was assisted in getting set up with IV antibiotics at an infusion center promptly and continues without complaints. He was seen by infectious disease specialist today as well. He has only been placing weight on his right foot for transfers. He denies fever, chill, nausea, vomiting. He is having a decline in cardiac function and needs to have his pacemaker updated. He has several additional complaints today as well. He relates his skin is dry he would like some additional lotion recommendations to avoid additional foot skin peeling. He also relates he has a new wound to the front of his yo which he is not sure is rubbing on his knee roller. He also has additional wound next to the original ulcer site on his left foot. His leg is also swelling more. Progress of Wound: Right foot status post additional fourth and fifth ray resections stable. New skin discontinuity to right foot and leg - Physical Exam Vital Signs Temp Pulse Resp BP 97.7 F L 77 16 98/47 L 09/15/20 14:17 09/15/20 14:17 09/15/20 14:17 09/15/20 14:17 General: Alert, Oriented x3, Cooperative, No apparent distress HEENT: Atraumatic Extremities: No cyanosis, Capillary Refill Less than 3 Seconds - Stump site right, No Calf Tenderness - Negative Veronica and Kaur sign right lower extremity. Compartments remain soft to palpate right lower extremity. No bogginess or fluctuance on palpation, Diminished Peripheral Pulses, Edema - Increased Skin: Ulcer/ Wound - dry adjacent skin to foot and leg , peeling, Incision - Status post revisional ray resection site is dehisced at the proximal 70% now with exposed devitalized tendon and adipose tissue which was removed with a rongeur. There is no purulence, erythema or odor or necrosis., - - The distal 30% of the revisional surgical site remains aligned and coapted with sutures Intact. There is a new skin ulcer proximal to this site which only is adipose tissue noted without infection clinically today. There is also some hemorrhagic tissue to the anterior mid leg. Skin atrophic Wound Measurements and Assessment WC - Nurse 1 - General Ulcer Measurement Start: 09/08/20 14:02 Freq: Status: Active Protocol: Activity Type Activity Date Activity User E-Sign Co-Sign Detail Recorded Client Recorded Date Recorded By Document 09/15/20 14:17 [facility] [id number] 09/15/20 14:21 [facility] 09/15/20 14:17 Wound Center Nurse 1 [Ulcer Assessment] #3- R LAT FOOT -Combined with other wound No -Current Size (cm) - Length 4.2 -Current Size (cm) - Width 1.8 -Current Size (cm) - Depth 1.5 -Total Square Cm 7.56 -Photo Taken No -Epithelialization None Present -Tunneling No -Undermining/Tunneling Yes -Undermining/Tunneling Starts (O' 7 clock) -Undermining/Tunneling Ends (O'clock) 9 -Maximum Distance (cm) 1.5 -Circular Undermining No -Exudate Amt Medium -Exudate Type Serosanguineous -Wound Margin Thickened & Rolled Under -Granulation Amt Small (1-33%) -Granulation Quality Red -Slough/Fibrin Yes -Necrosis Amt Large (67-100%) -Necrotic Tissue Type Adherent Slough -Texture (Allison-wound Skin Appearance) Assessed, Scarring -Moisture (Allison-wound Skin Appearance Assessed ) -Color (Allison-wound Skin Appearance) Assessed -Temperature (Allison-wound Skin No Abnormality Appearance) (Pt Warm) -Tenderness on Palpation (Allison-wound No Skin Appearance) -Ulcer Cleansing Rinsed/ Irrigated with Saline -Foul Odor after Cleansing No -Anesthetic Used 4% Lidocaine Solution WC - Nurse 2 - General Ulcer CM Notes Start: 09/08/20 14:02 Freq: Status: Active Protocol: Activity Type Activity Date Activity User E-Sign Co-Sign Detail Recorded Client Recorded Date Recorded By Document 09/15/20 14:53 IS[facility] [id number] 09/15/20 15:06 IS[facility]UR[facility] 09/15/20 14:53 Wound Center Nurse 2 [Procedure/Treatment] 6-right lateral lower foot -Time 15:05 -Correct Patient Yes -Correct Side, Site, Position Yes -Correct Procedure Yes -Procedure Performed Yes -Type of Procedure Debridement -Clinical Debridement Subcutaneous -Tissue Removed Subcutaneous -Post Debridement (cm) - Length 0.6 -Post Debridement (cm) - Width 0.7 -Post Debridement (cm) - Depth 0.8 -Total Square (Post) (cm) 0.42 -Area of Debridement (cm) - Length 0.6 -Area of Debridement (cm) - Width 0.7 -Total Square (Area) (cm) 0.42 -Tunneling No -Undermining/Tunneling No -Circular Undermining No -Wound/Ulcer Outcome Not Healed -Ulcer Cleansing Rinsed/ Irrigated with Saline -Foul Odor after Cleansing No -Bioengineered Tissue No -Bleeding Controlled with Pressure -Offloading Yes -Type of Offloading Knee Walker -Treatment Response Procedure Tolerated Well -Debridement - Subq, 1st 20sq cm Yes #3- R LAT FOOT -Time 14:56 -Correct Patient Yes -Correct Side, Site, Position Yes -Correct Procedure Yes -Procedure Performed Yes -Type of Procedure Debridement -Clinical Debridement Muscle / Fascia -Tissue Removed Tendon -Post Debridement (cm) - Length 4.2 -Post Debridement (cm) - Width 1.8 -Post Debridement (cm) - Depth 1.6 -Total Square (Post) (cm) 7.56 -Area of Debridement (cm) - Length 4.2 -Area of Debridement (cm) - Width 1.8 -Total Square (Area) (cm) 7.56 -Tunneling No -Undermining/Tunneling No -Circular Undermining No -Wound/Ulcer Outcome Not Healed -Ulcer Cleansing Rinsed/ Irrigated with Saline -Foul Odor after Cleansing No -Bioengineered Tissue No -Bleeding Controlled with Pressure -Offloading Yes -Type of Offloading Knee Walker -Treatment Response Procedure Tolerated Well -Debridement - Subq, 1st 20sq cm No -Debridement - Muscle / Fascia, 1st Yes 20sq cm [See Physician Procedure note for Specifics] Pain Scale: 0-10 Numeric [Pain] -Is Patient Pain Free? Yes WC - Nurse 3 - General Ulcer D/C NN Start: 09/08/20 14:02 Freq: Status: Active Protocol: Activity Type Activity Date Activity User E-Sign Co-Sign Detail Recorded Client Recorded Date Recorded By Document 09/15/20 15:32 [facility] [id number] 09/15/20 15:33 [facility] 09/15/20 15:32 Wound Care Nurse 3 [Wound Dressing] 6-right lateral lower foot -Ulcer Cleansing Rinsed/ Irrigated with Saline -Foul Odor after Cleansing No -Primary Dressing Applied Other -Other Dressing moist to dry -Primary Dressing Covered/Secured Dry Gauze & with Roll Gauze, Secured with Tape,Other -Other Covering abd #3- R LAT FOOT -Ulcer Cleansing Rinsed/ Irrigated with Saline -Foul Odor after Cleansing No -Primary Dressing Applied Other -Other Dressing moist to dry -Primary Dressing Covered/Secured Dry Gauze & with Roll Gauze, Secured with Tape,Other -Other Covering abd [Compression Applied] Right -Tubular Bandage Single Layer -Size of Tubigrip Used Size E -Size E ($) 1 Pain Scale: 0-10 Numeric [Pain] -Is Patient Pain Free? Yes WC - Visit Discharge [Visit Discharge Information] -Discharge Condition Stable -Ambulatory Status Wheelchair -Transportation Private Auto -Accompanied by Musculoskeletal: No Tenderness to Palpation of Joints or Extremities, Muscle Wasting, - - Left below-knee amputation. Right transmetatarsal amputation now with revision Neurological: - - Lack of normal epicritic sensation light touch is consistent neuropathic status Psych/Mental Status: Normal Affect, Appropriate Debridement Note Post-Debridement Measurements/Treatment - Nurse 2 - General Ulcer CM Notes Start: 09/08/20 14:02 Freq: Status: Active Protocol: Activity Type Activity Date Activity User E-Sign Co-Sign Detail Recorded Client Recorded Date Recorded By Document 09/08/20 14:47 [id number] 09/08/20 14:50 Document 09/15/20 14:53 [id number] 09/15/20 15:06 09/08/20 09/15/20 14:47 14:53 Wound Center Nurse 2 6-right lateral lower foot -Time 15:05 -Correct Patient Yes -Correct Side, Site, Position Yes -Correct Procedure Yes -Procedure Performed Yes -Type of Procedure Debridement -Clinical Debridement Subcutaneous -Tissue Removed Subcutaneous -Post Debridement (cm) - Length 0.6 -Post Debridement (cm) - Width 0.7 -Post Debridement (cm) - Depth 0.8 -Total Square (Post) (cm) 0.42 -Area of Debridement (cm) - Length 0.6 -Area of Debridement (cm) - Width 0.7 -Total Square (Area) (cm) 0.42 -Tunneling No -Undermining/Tunneling No -Circular Undermining No -Wound/Ulcer Outcome Not Healed -Ulcer Cleansing Rinsed/ Irrigated with Saline -Foul Odor after Cleansing No -Bioengineered Tissue No -Bleeding Controlled with Pressure -Offloading Yes -Type of Offloading Knee Walker -Treatment Response Procedure Tolerated Well -Debridement - Subq, 1st 20sq cm Yes #3- R LAT FOOT -Time 14:56 -Correct Patient No Yes -Correct Side, Site, Position No Yes -Correct Procedure No Yes -Procedure Performed No Yes -Type of Procedure Debridement -Clinical Debridement Muscle / Fascia -Tissue Removed Tendon -Post Debridement (cm) - Length 4.2 -Post Debridement (cm) - Width 1.8 -Post Debridement (cm) - Depth 1.6 -Total Square (Post) (cm) 7.56 -Area of Debridement (cm) - Length 4.2 -Area of Debridement (cm) - Width 1.8 -Total Square (Area) (cm) 7.56 -Tunneling No -Undermining/Tunneling No -Circular Undermining No No -Wound/Ulcer Outcome Not Healed Not Healed -Ulcer Cleansing Rinsed/ Rinsed/ Irrigated with Irrigated with Saline Saline -Foul Odor after Cleansing No No -Bioengineered Tissue No No -Bleeding Controlled with Pressure Pressure -Offloading Yes Yes -Type of Offloading Camwalker Knee Walker -Treatment Response Procedure Procedure Tolerated Well Tolerated Well -Debridement - Subq, 1st 20sq cm Yes No -Debridement - Muscle / Fascia, 1st Yes 20sq cm Pain Scale: 0-10 Numeric Is Patient Pain Free? Yes Yes WC - Nurse 3 - General Ulcer D/C NN Start: 09/08/20 14:02 Freq: Status: Active Protocol: Activity Type Activity Date Activity User E-Sign Co-Sign Detail Recorded Client Recorded Date Recorded By Document 09/08/20 15:27 [id number] 09/08/20 15:28 RB Document 09/15/20 15:32 [facility] [id number] 09/15/20 15:33 [facility] 09/08/20 09/15/20 15:27 15:32 Wound Care Nurse 3 6-right lateral lower foot -Ulcer Cleansing Rinsed/ Irrigated with Saline -Foul Odor after Cleansing No -Primary Dressing Applied Other -Other Dressing moist to dry -Primary Dressing Covered/Secured with Dry Gauze & Roll Gauze, Secured with Tape,Other -Other Covering abd #3- R LAT FOOT -Ulcer Cleansing Rinsed/ Irrigated with Saline -Foul Odor after Cleansing No -Primary Dressing Applied Other -Other Dressing saline moisened moist to dry gauze -Primary Dressing Covered/Secured with Dry Gauze,Dry Dry Gauze & Gauze & Roll Roll Gauze, Gauze,Secured Secured with with Tape Tape,Other -Other Covering jem abd Right -Tubular Bandage Single Layer -Size of Tubigrip Used Size E -Size E ($) 1 Treatment Response Procedure Tolerated Well Pain Scale: 0-10 Numeric Is Patient Pain Free? Yes Yes WC - Visit Discharge Discharge Condition Stable Stable Ambulatory Status Wheelchair Wheelchair Transportation Private Auto Private Auto Accompanied by Medication Reconcilliation completed & No provided to patient/care provider Clinical Summary of Care Provided Yes Wound debrided: revised lateral distal foot Laterality: Right Wound Grade/Stage: grade 3 Type of Debridement: Excisional debridement Anesthesia Used: 5% Lidocaine Gel Depth: in the subcutaneous layer, to muscle Percentage of wound debrided: 100 Instrument Used: #15 blade, Forceps, - - ronguer Tissue Removed: fibrous, devitalized subcutaneous and tendon, biofilm, slough Severity: Necrosis of Muscle Amount of bleeding with debridement: Mild Bleeding Controlled with: Pressure Patient tolerated procedure well - Additional Wound Wound debrided: proximal lateral foot Laterality: Right Wound Grade/Stage: grade 1 Type of Debridement: Excisional debridement Anesthesia Used: 5% Lidocaine Gel Depth: in the subcutaneous layer Percentage of wound debrided: 100 Instrument Used: #15 blade Tissue Removed: fibrous, devitalized subcutaneous, biofilm, slough Severity: Fat Layer Exposed Amount of bleeding with debridement: Mild Bleeding Controlled with: Pressure, Silver Nitrate Patient tolerated procedure: Patient tolerated procedure well Assessment/Plan Active Problems (Last Updated 08/16/20 @ 13:[address] Eda Morin MD) Ulcer of right foot with fat layer exposed (Chronic) Below-knee amputation of left lower extremity (Chronic) Peripheral vascular disease (Chronic) Osteomyelitis of right foot (Acute) Ulcer of right foot with necrosis of bone (Acute) Type 2 diabetes mellitus with diabetic polyneuropathy (Chronic) Delayed wound healing (Chronic) Ischemic cardiomyopathy (Chronic) Presence of permanent cardiac pacemaker (Chronic) 2006, 2012 gen change Assessment: s/p revisional fourth and fifth ray resections with acute osteomyelitis (DOS 08/15/20, Dr. Shah) -dehisced with continued tendon exposure, no clinical signs of infection noted today. New proximal lateral left foot ulcer with fat layer exposed, no local signs of infection today. New skin discontinuity to the anterior leg superficial. Increased edema right lower extremity. Xerosis lower extremities. healed left leg ulcer at below knee amputation site with callous/no wound or infection. Peripheral vascular disease. Coronary artery disease (EF ~ 19 %). Diabetes with insulin dependency. Polyneuropathy. malnutrition suspected. Chronic kidney disease on hemodialysis. Cardiac disease with pacemaker placed (needs exchanged soon) Plan: I reviewed and discussed his case. His right surgical site is stable however healing potential remains guarded given vascular status. We discussed that is not likely his surgical site or ulcer on his right foot will heal within 50 days or even during an even extended timeframe. We discussed amputation as an option as well however it is not likely that that would be completed and healed within the 50 days that has been communicated he needs to have his pacemaker changed by this time. The benefits and risks of both of these treatment options were reviewed. The benefits of amputation include completely removing the nidus of infection, likely increased ambulation ability healing occurs. Risks and consequences of the amputation include further increased cardiac load, continued possibility of nonhealing or infection statuses. He elects to proceed forward with more of a palliative type care program at this time and understands the goals of this treatment plan are to maintain or resolve infection in addition to disrupting his remaining daily life is much as possible. Risks of proceeding with wound care alone on a palliative basis include lack of resolution of infection and compromised cardiac pacemaker plan. Therefore, he was advised to change dressing daily with dakin's wet to dry dressing. Excisional subcutaneous and tendon debridements were performed to the right foot. This is noted in the clinical panel with additional details. His vascular status has been optimized with a recent drug coated balloon angioplasty of the femoral artery with Dr. Busch. To continue on Plavix and aspirin. His recent hospital admission diagnostic data and intervention was reviewed. He is being treated with a 6-week course of IV vancomycin with end date of 09-26-20. His labs were reviewed with recent hemoglobin A1c of 6.8%. Other labs from 09-10-20 were reviewed with white blood cell count of 7.0, ESR 11, C-reactive protein 197, creatinine 1.17. An additional course of oral doxycycline also be considered. Infectious disease physician, Dr. Glass is managing and also saw this patient this afternoon. Serial updated labs have been reviewed. It is noted that his IV antibiotics have been scheduled at an infusion center since he has left the snf facility. His pathology bone fragments that were debrided in surgery demonstrate acute osteomyelitis. He was also reassured that there are no local signs of infection or purulence today. To continue offloading with pillow boot while resting in bed and also CAM walker with limited heel touch during short household periods of ambulation. To use assistive device. . To continue to improve glucose management. I recommend segundo or glucerna as a nutritional supplement. It is also noted he is on prednisone and this may be contributing to some of his delayed healing. . He has declining cardiac function needs to have his pacemaker replaced. I recommend he continues to follow-up with cardiology and infectious disease to determine the most appropriate timeframe for him to have this performed. I do not anticipate wound healing given his vascular status and lack of recent progress. He is now even presenting with additional new ulcers which is consistent with lack of perfusion and recent increased edema. His lower extremity edema is addressed today with bilateral Jem wrap application and an additional tubigrip (single layer). He was advised to perform intermittent elevation and lower extremity muscular contraction hourly. His dry skin is noted and he was advised to apply lotion daily. He is using various [id number] products and I recommend a medical grade for prescription strength. Lac-Hydrin was sent to his [facility] pharmacy electronically and he was advised on proper and safe use. To avoid direct application over any open ulcer sites. To return to clinic in one week or sooner if concerns. I answered all of his questions. Note: [employer] speech recognition castings trimmer software was used to create portions of this document. Sound-alike and misspelled words, as well as other castings trimmer errors may be contained in the documentation. The problems addressed require a moderate decision making level which includes one or more chronic illnesses (w/ exacerbation, progression, or side effects), two or more stable chronic illnesses, one undiagnosed new problem w/ uncertain prognosis, one acute illness with systemic symptoms, or one acute complicated injury. The medical decision making level is moderate based on data including at least three of the following: review of prior external notes, review of a test, ordering a test, assessment requiring an independent historian. The medical decision making level is moderate based on data including independent interpretation of a test performed by another qualified health client care coordinator. The medical decision making level iss moderate based on data including the discussion of management or test interpretation with another qualified health client care coordinator or appropriate source. The medical decision making level is moderate. There is noted moderate risk of morbidity after considering this treatment plan and diagnostic data. Considerations were given to prescription management, decisions regarding surgical options, or social determinants of health. . MACRA 2020: His body mass index is above normal (27.2). His medications were reviewed and reconciled today as documented. He is a current tobacco nonuser. His blood pressure was 98/47 today. He has a history of previous pneumonia vaccination. His influenza immunization is also up-to-date. To follow-up in a continue manner with his primary care physician for medical management and to increase body mass index for medical, nutrition, and activity guidance.
[2020-09-22 14:43] VITALS: BP 147/45; PULSE 97; RESP 18; TEMP 36.4; BMI 29.0
--- NOTE | 2020-09-22 17:27 | PN.PCM_ITS ---
(1) Ulcer of right foot with muscle involvement without evidence of necrosis Status: Acute Code(s): L97.515 - Non-pressure chronic ulcer of other part of right foot with muscle involvement without evidence of necrosis (2) Peripheral vascular disease Status: Chronic Code(s): I73.9 - Peripheral vascular disease, unspecified (3) Osteomyelitis of right foot Status: Acute Code(s): M86.9 - Osteomyelitis, unspecified (4) Ulcer of right foot with necrosis of bone Status: Acute Code(s): L97.514 - Non-pressure chronic ulcer of other part of right foot with necrosis of bone (5) Type 2 diabetes mellitus with diabetic polyneuropathy Status: Chronic Code(s): E11.42 - Type 2 diabetes mellitus with diabetic polyneuropathy (6) Delayed wound healing Status: Chronic Code(s): T14.8XXD - Other injury of unspecified body region, subsequent encounter (7) Ischemic cardiomyopathy Status: Chronic Code(s): I25.5 - Ischemic cardiomyopathy (8) Presence of permanent cardiac pacemaker Status: Chronic Code(s): Z95.0 - Presence of cardiac pacemaker Comment: 2006, 2012 gen change (9) Below-knee amputation of left lower extremity Status: Chronic Code(s): S88.112A - Complete traumatic amputation at level between knee and ankle, left lower leg, initial encounter Type of Wound Date of Service: 09/22/20 Chief Complaint: Follow-up right lateral diabetic foot ulcer now revisional metatarsal resection (4 and 5) History of Wound: 74-year-old male with a left below knee amputation and right transmetatarsal amp follows up for ulcer of lateral foot. He underwent revisional 4th and 5th metatarsal resections with Dr. Shah on 08/15/2020. He denies pain. He denies fever, chills, nausea, vomiting. He had MRSA growth and is currently completing a 6-week course of IV antibiotics with end date of . He is under the management of infectious disease physician. He is scheduled to get his pacemaker replaced this upcoming Sunday at [facility]. Progress of Wound: Right foot status post additional fourth and fifth ray resections stable. Additional ulcer right foot stable - Physical Exam Vital Signs Temp Pulse Resp BP 97.5 F L 97 18 147/45 H 09/22/20 14:43 09/22/20 14:43 09/22/20 14:43 09/22/20 14:43 General: Alert, Oriented x3, Cooperative HEENT: Atraumatic Extremities: No cyanosis, Capillary Refill Less than 3 Seconds, No Calf Tenderness, Diminished Peripheral Pulses, Edema, - - Transmetatarsal amputation right. Compartments soft to palpate without additional bogginess or fluctuance on palpation Skin: Ulcer/ Wound - Purulence, odor, erythema, streaking. There is continued nonhealing to his surgical and prior chronic ulcer site with exposed devitalized tendon. There is no eschar or yennifer necrosis. The skin discontinuity proximal to this initial site is subcutaneous only., - - Atrophic and thin skin without hair Wound Measurements and Assessment WC - Nurse 1 - General Ulcer Measurement Start: 09/08/20 14:02 Freq: Status: Active Protocol: Activity Type Activity Date Activity User E-Sign Co-Sign Detail Recorded Client Recorded Date Recorded By Document 09/22/20 14:43 RB [id number] 09/22/20 14:46 RB 09/22/20 14:43 Wound Center Nurse 1 [Ulcer Assessment] 6-right lateral lower foot -Combined with other wound No -Current Size (cm) - Length 0.5 -Current Size (cm) - Width 0.5 -Current Size (cm) - Depth 0.3 -Total Square Cm 0.25 #3- R LAT FOOT -Combined with other wound No -Current Size (cm) - Length 4 -Current Size (cm) - Width 2 -Current Size (cm) - Depth 1 -Total Square Cm 8 -Tunneling No -Tunneling Position (O'clock) 12 -Tunneling Distance (cm) 3.5 -Undermining/Tunneling No -Exudate Amt Medium -Exudate Type Serosanguineous -Wound Margin Thickened & Rolled Under -Granulation Amt Medium (34-66%) -Granulation Quality [place] -Slough/Fibrin Yes -Necrosis Amt Large (67-100%) -Necrotic Tissue Type Adherent Slough -Structure Exposed N/A -Texture (Allison-wound Skin Appearance) Assessed, Scarring -Moisture (Allison-wound Skin Appearance Assessed ) -Color (Allison-wound Skin Appearance) Assessed -Temperature (Allison-wound Skin No Abnormality Appearance) (Pt Warm) -Tenderness on Palpation (Allison-wound No Skin Appearance) -Ulcer Cleansing Wound Cleanser -Foul Odor after Cleansing No -Anesthetic Used 4% Lidocaine Solution WC - Nurse 2 - General Ulcer CM Notes Start: 09/08/20 14:02 Freq: Status: Active Protocol: Activity Type Activity Date Activity User E-Sign Co-Sign Detail Recorded Client Recorded Date Recorded By Document 09/22/20 15:39 ISAURA [id number] 09/22/20 15:46 ISAURA 09/22/20 15:39 Wound Center Nurse 2 [Procedure/Treatment] 6-right lateral lower foot -Time 15:40 -Correct Patient Yes -Correct Side, Site, Position Yes -Correct Procedure Yes -Procedure Performed Yes -Type of Procedure Debridement -Clinical Debridement Subcutaneous -Tissue Removed Subcutaneous -Post Debridement (cm) - Length 0.6 -Post Debridement (cm) - Width 0.5 -Post Debridement (cm) - Depth 0.3 -Total Square (Post) (cm) 0.30 -Area of Debridement (cm) - Length 0.6 -Area of Debridement (cm) - Width 0.5 -Total Square (Area) (cm) 0.30 -Tunneling No -Undermining/Tunneling No -Circular Undermining No -Wound/Ulcer Outcome Not Healed -Ulcer Cleansing Rinsed/ Irrigated with Saline -Foul Odor after Cleansing No -Bioengineered Tissue No -Bleeding Controlled with Pressure -Offloading Yes -Type of Offloading Camwalker -Treatment Response Procedure Tolerated Well -Debridement - Subq, 1st 20sq cm Yes #3- R LAT FOOT -Time 15:41 -Correct Patient Yes -Correct Side, Site, Position Yes -Correct Procedure Yes -Procedure Performed Yes -Type of Procedure Debridement -Clinical Debridement Muscle / Fascia -Tissue Removed Subcutaneous, Tendon -Post Debridement (cm) - Length 4.1 -Post Debridement (cm) - Width 2.1 -Post Debridement (cm) - Depth 1 -Total Square (Post) (cm) 8.61 -Area of Debridement (cm) - Length 4.1 -Area of Debridement (cm) - Width 2.1 -Total Square (Area) (cm) 8.61 -Tunneling No -Undermining/Tunneling No -Circular Undermining No -Wound/Ulcer Outcome Not Healed -Ulcer Cleansing Rinsed/ Irrigated with Saline -Foul Odor after Cleansing No -Bioengineered Tissue No -Bleeding Controlled with Pressure -Offloading Yes -Type of Offloading Camwalker -Treatment Response Procedure Tolerated Well -Debridement - Subq, 1st 20sq cm No -Debridement - Muscle / Fascia, 1st Yes 20sq cm [See Physician Procedure note for Specifics] Pain Scale: 0-10 Numeric [Pain] -Is Patient Pain Free? Yes - Nurse 3 - General Ulcer D/C NN Start: 09/08/20 14:02 Freq: Status: Active Protocol: Activity Type Activity Date Activity User E-Sign Co-Sign Detail Recorded Client Recorded Date Recorded By Document 09/22/20 16:02 [facility] [id number] 09/22/20 16:03 [facility] 09/22/20 16:02 Wound Care Nurse 3 [Wound Dressing] 6-right lateral lower foot -Ulcer Cleansing Rinsed/ Irrigated with Saline -Foul Odor after Cleansing No -Primary Dressing Applied Other -Other Dressing dakins -Primary Dressing Covered/Secured Dry Gauze & with Roll Gauze, Secured with Tape #3- R LAT FOOT -Ulcer Cleansing Rinsed/ Irrigated with Saline -Foul Odor after Cleansing No -Primary Dressing Applied Other -Other Dressing dakins -Primary Dressing Covered/Secured Dry Gauze & with Roll Gauze, Secured with Tape [Compression Applied] Right -Tubular Bandage Single Layer -Size of Tubigrip Used Size D -Size D ($) 1 [Post Procedure Tolerated] -Treatment Response Procedure Tolerated Well Pain Scale: 0-10 Numeric [Pain] -Is Patient Pain Free? Yes - Visit Discharge [Visit Discharge Information] -Discharge Condition Stable -Ambulatory Status Wheelchair -Transportation Private Auto -Accompanied by Musculoskeletal: No Tenderness to Palpation of Joints or Extremities, Muscle Wasting, - - Transmetatarsal amputation right Neurological: - - Lack of normal epicritic sensation light touch is consistent with neuropathic status Psych/Mental Status: Normal Affect, Appropriate Debridement Note Post-Debridement Measurements/Treatment WC - Nurse 2 - General Ulcer CM Notes Start: 09/08/20 14:02 Freq: Status: Active Protocol: Activity Type Activity Date Activity User E-Sign Co-Sign Detail Recorded Client Recorded Date Recorded By Document 09/08/20 14:47 [id number] 09/08/20 14:50 Document 09/15/20 14:53 [id number] 09/15/20 15:06 Document 09/22/20 15:39 [id number] 09/22/20 15:46 JF 09/08/20 09/15/20 09/22/20 14:47 14:53 15:39 Wound Center Nurse 2 6-right lateral lower foot -Time 15:05 15:40 -Correct Patient Yes Yes -Correct Side, Site, Position Yes Yes -Correct Procedure Yes Yes -Procedure Performed Yes Yes -Type of Procedure Debridement Debridement -Clinical Debridement Subcutaneous Subcutaneous -Tissue Removed Subcutaneous Subcutaneous -Post Debridement (cm) - Length 0.6 0.6 -Post Debridement (cm) - Width 0.7 0.5 -Post Debridement (cm) - Depth 0.8 0.3 -Total Square (Post) (cm) 0.42 0.30 -Area of Debridement (cm) - Length 0.6 0.6 -Area of Debridement (cm) - Width 0.7 0.5 -Total Square (Area) (cm) 0.42 0.30 -Tunneling No No -Undermining/Tunneling No No -Circular Undermining No No -Wound/Ulcer Outcome Not Healed Not Healed -Ulcer Cleansing Rinsed/ Rinsed/ Irrigated with Irrigated with Saline Saline -Foul Odor after Cleansing No No -Bioengineered Tissue No No -Bleeding Controlled with Pressure Pressure -Offloading Yes Yes -Type of Offloading Knee Walker Camwalker -Treatment Response Procedure Procedure Tolerated Well Tolerated Well -Debridement - Subq, 1st 20sq cm Yes Yes #3- R LAT FOOT -Time 14:56 15:41 -Correct Patient No Yes Yes -Correct Side, Site, Position No Yes Yes -Correct Procedure No Yes Yes -Procedure Performed No Yes Yes -Type of Procedure Debridement Debridement -Clinical Debridement Muscle / Fascia Muscle / Fascia -Tissue Removed Tendon Subcutaneous, Tendon -Post Debridement (cm) - Length 4.2 4.1 -Post Debridement (cm) - Width 1.8 2.1 -Post Debridement (cm) - Depth 1.6 1 -Total Square (Post) (cm) 7.56 8.61 -Area of Debridement (cm) - Length 4.2 4.1 -Area of Debridement (cm) - Width 1.8 2.1 -Total Square (Area) (cm) 7.56 8.61 -Tunneling No No -Undermining/Tunneling No No -Circular Undermining No No No -Wound/Ulcer Outcome Not Healed Not Healed Not Healed -Ulcer Cleansing Rinsed/ Rinsed/ Rinsed/ Irrigated with Irrigated with Irrigated with Saline Saline Saline -Foul Odor after Cleansing No No No -Bioengineered Tissue No No No -Bleeding Controlled with Pressure Pressure Pressure -Offloading Yes Yes Yes -Type of Offloading Camwalker Knee Walker Camwalker -Treatment Response Procedure Procedure Procedure Tolerated Well Tolerated Well Tolerated Well -Debridement - Subq, 1st 20sq cm Yes No No -Debridement - Muscle / Fascia, 1st Yes Yes 20sq cm Pain Scale: 0-10 Numeric Is Patient Pain Free? Yes Yes Yes WC - Nurse 3 - General Ulcer D/C NN Start: 09/08/20 14:02 Freq: Status: Active Protocol: Activity Type Activity Date Activity User E-Sign Co-Sign Detail Recorded Client Recorded Date Recorded By Document 09/08/20 15:27 RB [id number] 09/08/20 15:28 RB Document 09/15/20 15:32 BM [id number] 09/15/20 15:33 BM Document 09/22/20 16:02 [facility] [id number] 09/22/20 16:03 BMF 09/08/20 09/15/20 09/22/20 15:27 15:32 16:02 Wound Care Nurse 3 6-right lateral lower foot -Ulcer Cleansing Rinsed/ Rinsed/ Irrigated with Irrigated with Saline Saline -Foul Odor after Cleansing No No -Primary Dressing Applied Other Other -Other Dressing moist to dry dakins -Primary Dressing Covered/Secured with Dry Gauze & Dry Gauze & Roll Gauze, Roll Gauze, Secured with Secured with Tape,Other Tape -Other Covering abd #3- R LAT FOOT -Ulcer Cleansing Rinsed/ Rinsed/ Irrigated with Irrigated with Saline Saline -Foul Odor after Cleansing No No -Primary Dressing Applied Other Other -Other Dressing saline moisened moist to dry dakins gauze -Primary Dressing Covered/Secured with Dry Gauze,Dry Dry Gauze & Dry Gauze & Gauze & Roll Roll Gauze, Roll Gauze, Gauze,Secured Secured with Secured with with Tape Tape,Other Tape -Other Covering jem abd Right -Tubular Bandage Single Layer Single Layer -Size of Tubigrip Used Size E Size D -Size D ($) 1 -Size E ($) 1 Treatment Response Procedure Procedure Tolerated Well Tolerated Well Pain Scale: 0-10 Numeric Is Patient Pain Free? Yes Yes Yes WC - Visit Discharge Discharge Condition Stable Stable Stable Ambulatory Status Wheelchair Wheelchair Wheelchair Transportation Private Auto Private Auto Private Auto Accompanied by Medication Reconcilliation completed & No provided to patient/care provider Clinical Summary of Care Provided Yes Wound debrided: lateral foot Laterality: Right Wound Grade/Stage: grade 2 Type of Debridement: Excisional debridement Anesthesia Used: 5% Lidocaine Gel Depth: in the subcutaneous layer Percentage of wound debrided: 100 Instrument Used: #15 blade, - - Hemostat Tissue Removed: fibrous, devitalized subcutaneous and tendon, biofilm, slough Severity: Necrosis of Muscle Amount of bleeding with debridement: Mild Bleeding Controlled with: Pressure Patient tolerated procedure well - Additional Wound Wound debrided: lateral foot (more proximal site) Laterality: Right Wound Grade/Stage: grade 1 Type of Debridement: Excisional debridement Anesthesia Used: 5% Lidocaine Gel Depth: in the subcutaneous layer Percentage of wound debrided: 100 Instrument Used: #15 blade Tissue Removed: fibrous, devitalized subcutaneous, biofilm, slough Severity: Fat Layer Exposed Amount of bleeding with debridement: Mild Bleeding Controlled with: Pressure Patient tolerated procedure: Patient tolerated procedure well Assessment/Plan Active Problems (Last Updated 08/16/20 @ 13:[address] Eda Morin MD) Ulcer of right foot with fat layer exposed (Chronic) Xerosis cutis (Chronic) Below-knee amputation of left lower extremity (Chronic) Peripheral vascular disease (Chronic) Osteomyelitis of right foot (Acute) Ulcer of right foot with necrosis of bone (Acute) Type 2 diabetes mellitus with diabetic polyneuropathy (Chronic) Delayed wound healing (Chronic) Ischemic cardiomyopathy (Chronic) Presence of permanent cardiac pacemaker (Chronic) 2006, 2012 gen change Assessment: s/p revisional fourth and fifth ray resections with acute osteomyelitis (DOS 08/15/20, Dr. Shah) -dehisced with continued tendon exposure, no clinical signs of infection noted today. proximal lateral left foot ulcer with fat layer exposed, no local signs of infection today. New skin discontinuity to the anterior leg superficial. Increased edema right lower extremity. Xerosis lower extremities. healed left leg ulcer at below knee amputation site with callous/no wound or infection. Peripheral vascular disease. Coronary artery disease (EF ~ 19 %). Diabetes with insulin dependency. Polyneuropathy. malnutrition suspected. Chronic kidney disease on hemodialysis. Cardiac disease with pacemaker placed (needs exchanged soon) Plan: I reviewed and discussed his case. His right surgical site is stable however healing potential remains guarded given vascular status. We discussed that is not likely his surgical site or ulcer on his right foot will heal within the next month. We discussed amputation as an option as well however it is not likely that that would be completed and healed within the next month either that has been communicated he needs to have his pacemaker changed by this time. He is now scheduled for this procedure this upcoming Sunday. The benefits of amputation include completely removing the nidus of infection, likely increased ambulation ability healing occurs. Risks and consequences of the amputation include further increased cardiac load, continued possibility of nonhealing or infection statuses. He elects to proceed forward with more of a palliative type care program at this time and understands the goals of this treatment plan are to maintain or resolve infection in addition to disrupting his remaining daily life is much as possible. Risks of proceeding with wound care alone on a palliative basis include lack of resolution of infection and compromised cardiac pacemaker plan. Therefore, he was advised to change dressing daily with dakin's wet to dry dressing. Excisional subcutaneous and tendon debridements were performed to the right foot. This is noted in the clinical panel with additional details. His vascular status has been optimized with a recent drug coated balloon angioplasty of the femoral artery with Dr. Busch. To continue on Plavix and aspirin. His recent hospital admission diagnostic data and intervention was reviewed. He is being treated with a 6-week course of IV vancomycin with end date of 09-26-20. His labs were reviewed with recent hemoglobin A1c of 6.8%. Other labs from 09-10-20 were reviewed with white blood cell count of 7.0, ESR 11, C-reactive protein 197, creatinine 1.17. An additional course of oral doxycycline also be considered. Infectious disease physician, Dr. Glass is managing and also saw this patient this afternoon. Serial updated labs have been reviewed. It is noted that his IV antibiotics have been scheduled at an infusion center since he has left the nursing home facility. His pathology bone fragments that were debrided in surgery demonstrate acute osteomyelitis. He was also reassured that there are no local signs of infection or purulence today. To continue offloading with pillow boot while resting in bed and also CAM walker with limited heel touch during short household periods of ambulation. To use assistive device. . To continue to improve glucose management. I recommend segundo or glucerna as a nutritional supplement. It is also noted he is on prednisone and this may be contributing to some of his delayed healing. His lower extremity edema is addressed today with bilateral Jem wrap application and an additional tubigrip (single layer). He was advised to perform intermittent elevation and lower extremity muscular contraction hourly. His dry skin is noted and he was advised to apply lotion daily. Continue Lac-Hydrin . To avoid direct application over any open ulcer sites. To return to clinic in one week or sooner if concerns. I answered all of his questions. Note: [employer] speech recognition location manager software was used to create portions of this document. Sound-alike and misspelled words, as well as other location manager errors may be contained in the documentation.
[2020-09-28 09:00] VITALS: BP 104/56; PULSE 75; RESP 18; TEMP 36.8; BMI 29.0
--- NOTE | 2020-09-28 10:00 | PCM.WC.PN ---
(1) Non-pressure chronic ulcer of other part of right foot with fat layer exposed Status: Chronic Code(s): L97.512 - Non-pressure chronic ulcer of other part of right foot with fat layer exposed (2) Non-pressure chronic ulcer of right calf limited to breakdown of skin Status: Chronic Code(s): L97.211 - Non-pressure chronic ulcer of right calf limited to breakdown of skin (3) Non-pressure chronic ulcer of other part of right foot with muscle involvement without evidence of necrosis Status: Chronic Code(s): L97.515 - Non-pressure chronic ulcer of other part of right foot with muscle involvement without evidence of necrosis (4) Osteomyelitis of right foot Status: Acute Code(s): M86.9 - Osteomyelitis, unspecified (5) Below-knee amputation of left lower extremity Status: Chronic Code(s): S88.112A - Complete traumatic amputation at level between knee and ankle, left lower leg, initial encounter (6) Delayed wound healing Status: Chronic Code(s): T14.8XXD - Other injury of unspecified body region, subsequent encounter (7) Ischemic cardiomyopathy Status: Chronic Code(s): I25.5 - Ischemic cardiomyopathy (8) Peripheral vascular disease Status: Chronic Code(s): I73.9 - Peripheral vascular disease, unspecified (9) Presence of permanent cardiac pacemaker Status: Chronic Code(s): Z95.0 - Presence of cardiac pacemaker Comment: 2012 gen change (10) Type 2 diabetes mellitus with diabetic polyneuropathy Status: Chronic Code(s): E11.42 - Type 2 diabetes mellitus with diabetic polyneuropathy (11) Amputation of right foot Status: Chronic Qualifiers: Code(s): S98.911A - Complete traumatic amputation of right foot, level unspecified, initial encounter Comment: transmetatarsal amputation Type of Wound Date of Service: 09/28/20 Chief Complaint: Follow-up right lateral diabetic foot ulcer now revisional metatarsal resection (4 and 5) History of Wound: 74-year-old male with a left below knee amputation and right transmetatarsal amp follows up for ulcer of lateral foot. He underwent revisional 4th and 5th metatarsal resections with Dr. Shah on 08/15/2020. He denies pain. He denies fever, chills, nausea, vomiting. He had MRSA growth and is currently completing a 6-week course of IV antibiotics with end date of 3?28. He is under the management of infectious disease physician. He had his pacemaker replaced this at [facility]. Progress of Wound: Right foot status post additional fourth and fifth ray resections stable. Additional ulcer right foot stable Subjective: Patient seen and examined resting comfortably. Patient denies any new pedal complaints. Patient denies any nausea, fever, chills, chest pain, shortness of breath, cough, streaking, purulence, vomiting. Patient expresses fear of losing his right leg due to infection. He states that he got his pacemaker replaced without incident - Physical Exam Vital Signs Temp Pulse Resp BP 98.2 F 75 18 104/56 L 09/28/20 09:00 09/28/20 09:00 09/28/20 09:00 09/28/20 09:00 General: Alert, Oriented x3 HEENT: Atraumatic Extremities: No clubbing, No cyanosis, Capillary Refill Less than 3 Seconds, No Calf Tenderness, Diminished Peripheral Pulses, Edema - Mild right Skin: Ulcer/ Wound - Lateral foot x2 ulcerations. No malodor, erythema, purulence, probing to bone, streaking, fluctuation, crepitus. There is periwound maceration, fibrotic tissue, serosanguineous drainage, skin is atrophic and hairless., - - New wound noted to right anterior yo. Serous drainage, no periwound erythema or edema noted. No signs of infection. Granular base. Limited to breakdown of skin Wound Measurements and Assessment WC - Nurse 1 - General Ulcer Measurement Start: 09/08/20 14:02 Freq: Status: Active Protocol: Activity Type Activity Date Activity User E-Sign Co-Sign Detail Recorded Client Recorded Date Recorded By Document 09/28/20 09:00 DL [id number] 09/28/20 09:09 DL 09/28/20 09:00 Wound Center Nurse 1 [Ulcer Assessment] 6-right lateral lower foot -Combined with other wound No -Current Size (cm) - Length 0.8 -Current Size (cm) - Width 0.5 -Current Size (cm) - Depth 0.8 -Total Square Cm 0.40 -Photo Taken No -Epithelialization None Present -Tunneling No -Undermining/Tunneling Yes -Undermining/Tunneling Starts (O' 12 clock) -Undermining/Tunneling Ends (O'clock) 12 -Maximum Distance (cm) 0.3 -Circular Undermining Yes -Exudate Amt Large -Exudate Type Serosanguineous -Wound Margin Distinct, Outline Attached -Granulation Amt Small (1-33%) -Granulation Quality Red -Slough/Fibrin Yes -Necrosis Amt Large (67-100%) -Necrotic Tissue Type Adherent Slough -Texture (Allison-wound Skin Appearance) Scarring -Moisture (Allison-wound Skin Appearance Assessed, ) Maceration -Color (Allison-wound Skin Appearance) Assessed, Erythema,Palor -Temperature (Allison-wound Skin No Abnormality Appearance) (Pt Warm) -Tenderness on Palpation (Allison-wound Yes Skin Appearance) -Ulcer Cleansing soapy water -Foul Odor after Cleansing No -Anesthetic Used 4% Lidocaine Solution #3- R LAT FOOT -Combined with other wound No -Current Size (cm) - Length 4.6 -Current Size (cm) - Width 2 -Current Size (cm) - Depth 1.1 -Total Square Cm 9.2 -Photo Taken No -Epithelialization None Present -Tunneling Yes -Tunneling Position (O'clock) 9 -Tunneling Distance (cm) 3 -Undermining/Tunneling No -Circular Undermining No -Exudate Amt Large -Exudate Type Serosanguineous -Wound Margin Distinct, Outline Attached -Granulation Amt Small (1-33%) -Granulation Quality Red -Slough/Fibrin Yes -Necrosis Amt Large (67-100%) -Necrotic Tissue Type Adherent Slough -Texture (Allison-wound Skin Appearance) Assessed, Scarring -Moisture (Allison-wound Skin Appearance Assessed, ) Maceration -Color (Allison-wound Skin Appearance) Assessed, Erythema,Palor -Temperature (Allison-wound Skin No Abnormality Appearance) (Pt Warm) -Tenderness on Palpation (Allison-wound Yes Skin Appearance) -Ulcer Cleansing soapy water -Foul Odor after Cleansing No -Anesthetic Used 4% Lidocaine Solution WC - Nurse 2 - General Ulcer CM Notes Start: 09/08/20 14:02 Freq: Status: Active Protocol: Activity Type Activity Date Activity User E-Sign Co-Sign Detail Recorded Client Recorded Date Recorded By Document 09/28/20 09:23 [email or web address] [id number] 09/28/20 09:31 ISAURA 09/28/20 09:23 Wound Center Nurse 2 [Procedure/Treatment] 7-right yo -Time 09:29 -Correct Patient Yes -Correct Side, Site, Position Yes -Correct Procedure Yes -Procedure Performed Yes -Type of Procedure Debridement -Clinical Debridement Epidermis / Dermis -Tissue Removed Epidermis, Dermis -Post Debridement (cm) - Length 3 -Post Debridement (cm) - Width 2.5 -Post Debridement (cm) - Depth 0.1 -Total Square (Post) (cm) 7.5 -Area of Debridement (cm) - Length 3 -Area of Debridement (cm) - Width 2.5 -Total Square (Area) (cm) 7.5 -Tunneling No -Undermining/Tunneling No -Circular Undermining No -Wound/Ulcer Outcome Not Healed -Ulcer Cleansing Rinsed/ Irrigated with Saline -Foul Odor after Cleansing No -Bioengineered Tissue No -Bleeding Controlled with Pressure -Offloading No -Treatment Response Procedure Tolerated Well -Debridement - Open, 1st 20sq cm Yes 6-right lateral lower foot -Time 09:24 -Correct Patient Yes -Correct Side, Site, Position Yes -Correct Procedure Yes -Procedure Performed Yes -Type of Procedure Debridement -Clinical Debridement Subcutaneous -Tissue Removed Subcutaneous -Post Debridement (cm) - Length 0.9 -Post Debridement (cm) - Width 0.6 -Post Debridement (cm) - Depth 1 -Total Square (Post) (cm) 0.54 -Area of Debridement (cm) - Length 0.9 -Area of Debridement (cm) - Width 0.6 -Total Square (Area) (cm) 0.54 -Tunneling No -Undermining/Tunneling No -Circular Undermining No -Wound/Ulcer Outcome Not Healed -Ulcer Cleansing Rinsed/ Irrigated with Saline -Foul Odor after Cleansing No -Bioengineered Tissue No -Bleeding Controlled with Pressure -Offloading Yes -Type of Offloading Camwalker -Treatment Response Procedure Tolerated Well -Debridement - Subq, 1st 20sq cm No #3- R LAT FOOT -Time 09:25 -Correct Patient Yes -Correct Side, Site, Position Yes -Correct Procedure Yes -Procedure Performed Yes -Type of Procedure Debridement -Clinical Debridement Subcutaneous -Tissue Removed Subcutaneous -Post Debridement (cm) - Length 4.7 -Post Debridement (cm) - Width 2.1 -Post Debridement (cm) - Depth 3.5 -Total Square (Post) (cm) 9.87 -Area of Debridement (cm) - Length 4.7 -Area of Debridement (cm) - Width 2.1 -Total Square (Area) (cm) 9.87 -Tunneling No -Undermining/Tunneling No -Circular Undermining No -Wound/Ulcer Outcome Not Healed -Ulcer Cleansing Rinsed/ Irrigated with Saline -Foul Odor after Cleansing No -Bioengineered Tissue No -Bleeding Controlled with Pressure -Other tracking 3-5:00 -Offloading Yes -Type of Offloading Camwalker -Treatment Response Procedure Tolerated Well -Debridement - Subq, 1st 20sq cm Yes [See Physician Procedure note for Specifics] Pain Scale: 0-10 Numeric [Pain] -Is Patient Pain Free? Yes - Nurse 3 - General Ulcer D/C NN Start: 09/08/20 14:02 Freq: Status: Active Protocol: Activity Type Activity Date Activity User E-Sign Co-Sign Detail Recorded Client Recorded Date Recorded By Document 09/28/20 09:45 DL [id number] 09/28/20 09:49 DL 09/28/20 09:45 Wound Care Nurse 3 [Wound Dressing] 7-right yo -Ulcer Cleansing Rinsed/ Irrigated with Saline -Foul Odor after Cleansing No -Primary Dressing Applied Aquacel Extra, NonAdherent Contact Layer -Primary Dressing Covered/Secured Dry Gauze & with Roll Gauze, Secured with Tape -Other Covering drsg per d john senior courtroom clerk -Aquacel Extra 1 6-right lateral lower foot -Ulcer Cleansing Rinsed/ Irrigated with Saline -Foul Odor after Cleansing No -Primary Dressing Applied Other -Other Dressing betadine -Primary Dressing Covered/Secured Dry Gauze & with Roll Gauze, Secured with Tape -Other Covering drsg per d john #3- R LAT FOOT -Ulcer Cleansing Rinsed/ Irrigated with Saline -Foul Odor after Cleansing No -Primary Dressing Applied Other -Other Dressing betadine -Primary Dressing Covered/Secured Dry Gauze & with Roll Gauze, Secured with Tape -Other Covering drsg per d john senior courtroom clerk [Compression Applied] Right -Tubular Bandage Single Layer -Size of Tubigrip Used Size E -Size E ($) 1 [Post Procedure Tolerated] -Treatment Response Procedure Tolerated Well Pain Scale: 0-10 Numeric [Pain] -Is Patient Pain Free? Yes WC - Visit Discharge [Visit Discharge Information] -Discharge Condition Stable -Ambulatory Status Wheelchair -Transportation Private Auto -Accompanied by Musculoskeletal: No Tenderness to Palpation of Joints or Extremities, - - Left BKA, right TMA with resection entirely of fourth and fifth metatarsals Neurological: - - Decrease in epicritic sensation Psych/Mental Status: Normal Affect, Appropriate Debridement Note Post-Debridement Measurements/Treatment WC - Nurse 2 - General Ulcer CM Notes Start: 09/08/20 14:02 Freq: Status: Active Protocol: Activity Type Activity Date Activity User E-Sign Co-Sign Detail Recorded Client Recorded Date Recorded By Document 09/08/20 14:47 [id number] 09/08/20 14:50 Document 09/15/20 14:53 [id number] 09/15/20 15:06 Document 09/22/20 15:39 [id number] 09/22/20 15:46 Document 09/28/20 09:23 [id number] 09/28/20 09:31 09/08/20 09/15/20 09/22/20 14:47 14:53 15:39 Wound Center Nurse 2 7-right yo -Time -Correct Patient -Correct Side, Site, Position -Correct Procedure -Procedure Performed -Type of Procedure -Clinical Debridement -Tissue Removed -Post Debridement (cm) - Length -Post Debridement (cm) - Width -Post Debridement (cm) - Depth -Total Square (Post) (cm) -Area of Debridement (cm) - Length -Area of Debridement (cm) - Width -Total Square (Area) (cm) -Tunneling -Undermining/Tunneling -Circular Undermining -Wound/Ulcer Outcome -Ulcer Cleansing -Foul Odor after Cleansing -Bioengineered Tissue -Bleeding Controlled with -Offloading -Treatment Response -Debridement - Open, 1st 20sq cm 6-right lateral lower foot -Time 15:05 15:40 -Correct Patient Yes Yes -Correct Side, Site, Position Yes Yes -Correct Procedure Yes Yes -Procedure Performed Yes Yes -Type of Procedure Debridement Debridement -Clinical Debridement Subcutaneous Subcutaneous -Tissue Removed Subcutaneous Subcutaneous -Post Debridement (cm) - Length 0.6 0.6 -Post Debridement (cm) - Width 0.7 0.5 -Post Debridement (cm) - Depth 0.8 0.3 -Total Square (Post) (cm) 0.42 0.30 -Area of Debridement (cm) - Length 0.6 0.6 -Area of Debridement (cm) - Width 0.7 0.5 -Total Square (Area) (cm) 0.42 0.30 -Tunneling No No -Undermining/Tunneling No No -Circular Undermining No No -Wound/Ulcer Outcome Not Healed Not Healed -Ulcer Cleansing Rinsed/ Rinsed/ Irrigated with Irrigated with Saline Saline -Foul Odor after Cleansing No No -Bioengineered Tissue No No -Bleeding Controlled with Pressure Pressure -Offloading Yes Yes -Type of Offloading Knee Walker Camwalker -Treatment Response Procedure Procedure Tolerated Well Tolerated Well -Debridement - Subq, 1st 20sq cm Yes Yes #3- R LAT FOOT -Time 14:56 15:41 -Correct Patient No Yes Yes -Correct Side, Site, Position No Yes Yes -Correct Procedure No Yes Yes -Procedure Performed No Yes Yes -Type of Procedure Debridement Debridement -Clinical Debridement Muscle / Fascia Muscle / Fascia -Tissue Removed Tendon Subcutaneous, Tendon -Post Debridement (cm) - Length 4.2 4.1 -Post Debridement (cm) - Width 1.8 2.1 -Post Debridement (cm) - Depth 1.6 1 -Total Square (Post) (cm) 7.56 8.61 -Area of Debridement (cm) - Length 4.2 4.1 -Area of Debridement (cm) - Width 1.8 2.1 -Total Square (Area) (cm) 7.56 8.61 -Tunneling No No -Undermining/Tunneling No No -Circular Undermining No No No -Wound/Ulcer Outcome Not Healed Not Healed Not Healed -Ulcer Cleansing Rinsed/ Rinsed/ Rinsed/ Irrigated with Irrigated with Irrigated with Saline Saline Saline -Foul Odor after Cleansing No No No -Bioengineered Tissue No No No -Bleeding Controlled with Pressure Pressure Pressure -Other -Offloading Yes Yes Yes -Type of Offloading Camwalker Knee Walker Camwalker -Treatment Response Procedure Procedure Procedure Tolerated Well Tolerated Well Tolerated Well -Debridement - Subq, 1st 20sq cm Yes No No -Debridement - Muscle / Fascia, 1st Yes Yes 20sq cm Pain Scale: 0-10 Numeric Is Patient Pain Free? Yes Yes Yes 09/28/20 09:23 Wound Center Nurse 2 7-right yo -Time 09:29 -Correct Patient Yes -Correct Side, Site, Position Yes -Correct Procedure Yes -Procedure Performed Yes -Type of Procedure Debridement -Clinical Debridement Epidermis / Dermis -Tissue Removed Epidermis, Dermis -Post Debridement (cm) - Length 3 -Post Debridement (cm) - Width 2.5 -Post Debridement (cm) - Depth 0.1 -Total Square (Post) (cm) 7.5 -Area of Debridement (cm) - Length 3 -Area of Debridement (cm) - Width 2.5 -Total Square (Area) (cm) 7.5 -Tunneling No -Undermining/Tunneling No -Circular Undermining No -Wound/Ulcer Outcome Not Healed -Ulcer Cleansing Rinsed/ Irrigated with Saline -Foul Odor after Cleansing No -Bioengineered Tissue No -Bleeding Controlled with Pressure -Offloading No -Treatment Response Procedure Tolerated Well -Debridement - Open, 1st 20sq cm Yes 6-right lateral lower foot -Time 09:24 -Correct Patient Yes -Correct Side, Site, Position Yes -Correct Procedure Yes -Procedure Performed Yes -Type of Procedure Debridement -Clinical Debridement Subcutaneous -Tissue Removed Subcutaneous -Post Debridement (cm) - Length 0.9 -Post Debridement (cm) - Width 0.6 -Post Debridement (cm) - Depth 1 -Total Square (Post) (cm) 0.54 -Area of Debridement (cm) - Length 0.9 -Area of Debridement (cm) - Width 0.6 -Total Square (Area) (cm) 0.54 -Tunneling No -Undermining/Tunneling No -Circular Undermining No -Wound/Ulcer Outcome Not Healed -Ulcer Cleansing Rinsed/ Irrigated with Saline -Foul Odor after Cleansing No -Bioengineered Tissue No -Bleeding Controlled with Pressure -Offloading Yes -Type of Offloading Camwalker -Treatment Response Procedure Tolerated Well -Debridement - Subq, 1st 20sq cm No #3- R LAT FOOT -Time 09:25 -Correct Patient Yes -Correct Side, Site, Position Yes -Correct Procedure Yes -Procedure Performed Yes -Type of Procedure Debridement -Clinical Debridement Subcutaneous -Tissue Removed Subcutaneous -Post Debridement (cm) - Length 4.7 -Post Debridement (cm) - Width 2.1 -Post Debridement (cm) - Depth 3.5 -Total Square (Post) (cm) 9.87 -Area of Debridement (cm) - Length 4.7 -Area of Debridement (cm) - Width 2.1 -Total Square (Area) (cm) 9.87 -Tunneling No -Undermining/Tunneling No -Circular Undermining No -Wound/Ulcer Outcome Not Healed -Ulcer Cleansing Rinsed/ Irrigated with Saline -Foul Odor after Cleansing No -Bioengineered Tissue No -Bleeding Controlled with Pressure -Other tracking 3-5:00 -Offloading Yes -Type of Offloading Camwalker -Treatment Response Procedure Tolerated Well -Debridement - Subq, 1st 20sq cm Yes -Debridement - Muscle / Fascia, 1st 20sq cm Pain Scale: 0-10 Numeric Is Patient Pain Free? Yes WC - Nurse 3 - General Ulcer D/C NN Start: 09/08/20 14:02 Freq: Status: Active Protocol: Activity Type Activity Date Activity User E-Sign Co-Sign Detail Recorded Client Recorded Date Recorded By Document 09/08/20 15:27 RB [id number] 09/08/20 15:28 RB Document 09/15/20 15:32 BMF [id number] 09/15/20 15:33 BMF Document 09/22/20 16:02 BMF [id number] 09/22/20 16:03 BMF Document 09/28/20 09:45 DL [id number] 09/28/20 09:49 DL 09/08/20 09/15/20 09/22/20 15:27 15:32 16:02 Wound Care Nurse 3 7-right yo -Ulcer Cleansing -Foul Odor after Cleansing -Primary Dressing Applied -Primary Dressing Covered/Secured with -Other Covering -Aquacel Extra 6-right lateral lower foot -Ulcer Cleansing Rinsed/ Rinsed/ Irrigated with Irrigated with Saline Saline -Foul Odor after Cleansing No No -Primary Dressing Applied Other Other -Other Dressing moist to dry dakins -Primary Dressing Covered/Secured with Dry Gauze & Dry Gauze & Roll Gauze, Roll Gauze, Secured with Secured with Tape,Other Tape -Other Covering abd #3- R LAT FOOT -Ulcer Cleansing Rinsed/ Rinsed/ Irrigated with Irrigated with Saline Saline -Foul Odor after Cleansing No No -Primary Dressing Applied Other Other -Other Dressing saline moisened moist to dry dakins gauze -Primary Dressing Covered/Secured with Dry Gauze,Dry Dry Gauze & Dry Gauze & Gauze & Roll Roll Gauze, Roll Gauze, Gauze,Secured Secured with Secured with with Tape Tape,Other Tape -Other Covering jem abd Right -Tubular Bandage Single Layer Single Layer -Size of Tubigrip Used Size E Size D -Size D ($) 1 -Size E ($) 1 Treatment Response Procedure Procedure Tolerated Well Tolerated Well Pain Scale: 0-10 Numeric Is Patient Pain Free? Yes Yes Yes WC - Visit Discharge Discharge Condition Stable Stable Stable Ambulatory Status Wheelchair Wheelchair Wheelchair Transportation Private Auto Private Auto Private Auto Accompanied by Medication Reconcilliation completed & No provided to patient/care provider Clinical Summary of Care Provided Yes 09/28/20 09:45 Wound Care Nurse 3 7-right yo -Ulcer Cleansing Rinsed/ Irrigated with Saline -Foul Odor after Cleansing No -Primary Dressing Applied Aquacel Extra, NonAdherent Contact Layer -Primary Dressing Covered/Secured with Dry Gauze & Roll Gauze, Secured with Tape -Other Covering drsg per d john senior courtroom clerk -Aquacel Extra 1 6-right lateral lower foot -Ulcer Cleansing Rinsed/ Irrigated with Saline -Foul Odor after Cleansing No -Primary Dressing Applied Other -Other Dressing betadine -Primary Dressing Covered/Secured with Dry Gauze & Roll Gauze, Secured with Tape -Other Covering drsg per d john #3- R LAT FOOT -Ulcer Cleansing Rinsed/ Irrigated with Saline -Foul Odor after Cleansing No -Primary Dressing Applied Other -Other Dressing betadine -Primary Dressing Covered/Secured with Dry Gauze & Roll Gauze, Secured with Tape -Other Covering drsg per d john senior courtroom clerk Right -Tubular Bandage Single Layer -Size of Tubigrip Used Size E -Size D ($) -Size E ($) 1 Treatment Response Procedure Tolerated Well Pain Scale: 0-10 Numeric Is Patient Pain Free? Yes WC - Visit Discharge Discharge Condition Stable Ambulatory Status Wheelchair Transportation Private Auto Accompanied by Medication Reconcilliation completed & provided to patient/care provider Clinical Summary of Care Provided Wound debrided: Lateral foot distal Laterality: Right Wound Grade/Stage: Delgado 3 Type of Debridement: Excisional debridement Anesthesia Used: 4% Lidocaine Solution Depth: to muscle - Probes to near bone Percentage of wound debrided: 100 Instrument Used: 3mm curette, #15 blade, Forceps Tissue Removed: Tissue removed includes fibrous, devitalized, biofilm, and slough tissue Severity: Fat Layer Exposed Amount of bleeding with debridement: Mild Bleeding Controlled with: Pressure Patient tolerated procedure well - Additional Wound Wound debrided: Proximal lateral foot Laterality: Right Wound Grade/Stage: Delgado 1 Type of Debridement: Excisional debridement Anesthesia Used: 4% Lidocaine Solution Depth: in the subcutaneous layer Percentage of wound debrided: 100 Instrument Used: 3mm curette Tissue Removed: Tissue removed includes fibrous, devitalized, biofilm, and slough tissue Severity: Fat Layer Exposed Amount of bleeding with debridement: Mild Bleeding Controlled with: Pressure Patient tolerated procedure: Patient tolerated procedure well - Additional Wound Wound debrided: Anterior yo Laterality: Right Type of Debridement: Selective debridement Depth: Down to and including healthy tissue Percentage of wound debrided: 100 Instrument Used: 3mm curette Tissue Removed: Tissue removed includes fibrous, devitalized, biofilm, and slough tissue Severity: Limited To Skin Breakdown Amount of bleeding with debridement: Mild Bleeding Controlled with: Pressure Patient tolerated procedure: Patient tolerated procedure well Assessment/Plan Active Problems (Last Updated 08/16/20 @ 13:[address] Eda Morin MD) Ulcer of right foot with fat layer exposed (Chronic) Xerosis cutis (Chronic) Ulcer of right foot with muscle involvement without evidence of necrosis (Acute) Non-pressure chronic ulcer of other part of right foot with fat layer exposed (Chronic) Non-pressure chronic ulcer of right calf limited to breakdown of skin (Chronic) Non-pressure chronic ulcer of other part of right foot with muscle involvement without evidence of necrosis (Chronic) Below-knee amputation of left lower extremity (Chronic) Peripheral vascular disease (Chronic) Osteomyelitis of right foot (Acute) Ulcer of right foot with necrosis of bone (Acute) Amputation of right foot (Chronic) transmetatarsal amputation Type 2 diabetes mellitus with diabetic polyneuropathy (Chronic) Delayed wound healing (Chronic) Ischemic cardiomyopathy (Chronic) Presence of permanent cardiac pacemaker (Chronic) 2006, 2012 gen change Assessment: s/p revisional fourth and fifth ray resections with acute osteomyelitis (DOS 08/15/20, Dr. Shah) -dehisced with continued tendon exposure, no clinical signs of infection noted today. proximal lateral left foot ulcer with fat layer exposed, no local signs of infection today. New skin discontinuity to the anterior leg superficial. Increased edema right lower extremity. Xerosis lower extremities. healed left leg ulcer at below knee amputation site with callous/no wound or infection. Peripheral vascular disease. Coronary artery disease (EF ~ 19 %). Diabetes with insulin dependency. Polyneuropathy. malnutrition suspected. Chronic kidney disease on hemodialysis. Cardiac disease with pacemaker placed (needs exchanged soon) Plan: I reviewed and discussed his case. His right surgical site is stable however healing potential remains guarded given vascular status. We discussed that is not likely his surgical site or ulcer on his right foot will heal within the next month. We discussed amputation as an option as well. He had his pacemaker exchanged without incident. The benefits of amputation include completely removing the nidus of infection, likely increased ambulation ability if healing occurs. Risks and consequences of the amputation include further increased cardiac load, continued possibility of nonhealing or infection statuses. He elects to proceed forward with more of a palliative type care program at this time and understands the goals of this treatment plan are to maintain or resolve infection in addition to disrupting his remaining daily life as little as possible. Risks of proceeding with wound care alone on a palliative basis include lack of resolution of infection and compromised cardiac pacemaker plan. Therefore, he was advised to change dressing daily with dakin's wet to dry dressing. We will switch to betadine wet to dry this week given amount of maceration noted. Excisional subcutaneous were performed to the right foot. This is noted in the clinical panel with additional details. His vascular status has been optimized with a recent drug coated balloon angioplasty of the femoral artery with Dr. Busch. To continue on Plavix and aspirin. His recent hospital admission diagnostic data and intervention was reviewed. He was treated with a 6-week course of IV vancomycin with end date of 09-26-20. His labs were reviewed with recent hemoglobin A1c of 6.8%. Other labs from 09-10-20 were reviewed with white blood cell count of 7.0, ESR 11, C-reactive protein 197, creatinine 1.17. An additional course of oral doxycycline also be considered. Infectious disease physician, Dr. Glass is managing and also saw this patient this afternoon. Serial updated labs have been reviewed. His pathology bone fragments that were debrided in surgery demonstrate acute osteomyelitis. He was also reassured that there are no local signs of infection or purulence today. To continue offloading with pillow boot while resting in bed and also CAM walker with limited heel touch during short household periods of ambulation. To use assistive device. . To continue to improve glucose management. I recommend segundo or glucerna as a nutritional supplement. It is also noted he is on prednisone and this may be contributing to some of his delayed healing. His lower extremity edema is addressed today with bilateral Jem wrap application and an additional tubigrip (single layer). He was advised to perform intermittent elevation and lower extremity muscular contraction hourly. His dry skin is noted and he was advised to apply lotion daily. Continue Lac-Hydrin. To avoid direct application over any open ulcer sites. To return to clinic in one week or sooner if concerns. I answered all of his questions. Note: The [employer] speech recognition traditional maori health practitioner software was used to create portions of this document. Sound-alike and misspelled words, as well as other traditional maori health practitioner errors may be contained in the documentation. The problems addressed require a low medical decision making level which includes two or more minor problems, a stable chronic illness, or an acute uncomplicated illness or injury.
== END 2020-09-29 23:59 ==
LOC: WC 09:00
PROVIDERS: PCP Family Medicine; Referring Provider Family Medicine; Visit Provider Podiatrist
DX: E11.621 Type 2 diabetes mellitus with foot ulcer (principal); E11.51 Type 2 diabetes mellitus with diabetic peripheral angiopathy without gangrene; L97.513 Non-pressure chronic ulcer of other part of right foot with necrosis of muscle; E11.42 Type 2 diabetes mellitus with diabetic polyneuropathy; I25.5 Ischemic cardiomyopathy; Z95.0 Presence of cardiac pacemaker; Z86.14 Personal history of Methicillin resistant Staphylococcus aureus infection; I25.10 Atherosclerotic heart disease of native coronary artery without angina pectoris; E11.22 Type 2 diabetes mellitus with diabetic chronic kidney disease; Z99.2 Dependence on renal dialysis; N18.6 End stage renal disease; M86.171 Other acute osteomyelitis, right ankle and foot; Z89.431 Acquired absence of right foot; Z89.512 Acquired absence of left leg below knee; L85.3 Xerosis cutis; E11.622 Type 2 diabetes mellitus with other skin ulcer; L97.811 Non-pressure chronic ulcer of other part of right lower leg limited to breakdown of skin
CPT/HCPCS: 11042; 11043; 97597; 99213; G0463

== ENCOUNTER → 2020-10-06 10:14 | Outpatient (CLI) | payer MEDICARE, OTHER, SELFPAY ==
[2020-09-30 00:37] VITALS: BMI 28.3
[2020-10-06 09:09] VITALS: BMI 28.3
== END ==
PROVIDERS: PCP Family Medicine; Referring Provider Internal Medicine Infectious Disease; Visit Provider Internal Medicine Infectious Disease
DX: Z45.2 Encounter for adjustment and management of vascular access device (principal)

== ENCOUNTER 2020-10-14 07:28 | Outpatient (RCR) | payer MEDICARE, OTHER, SELFPAY ==
[2020-10-13 10:15] VITALS: BMI 28.3
== END 2020-12-07 23:59 ==
LOC: IMMUN 07:28
PROVIDERS: PCP Family Medicine; Referring Provider Family Medicine; Visit Provider Family Medicine
DX: Z23 Encounter for immunization (principal)
CPT/HCPCS: 0001A; 0002A; 91300

== ENCOUNTER 2020-10-20 11:15 | Outpatient (RCR) | payer MEDICARE, OTHER, SELFPAY ==
[2020-09-30 00:37] VITALS: BP 104/56; PULSE 75; RESP 18; TEMP 36.8; BMI 28.3
[2020-10-06 09:09] VITALS: BP 101/45; PULSE 62; RESP 18; TEMP 36.1; BMI 28.3
--- NOTE | 2020-10-06 10:07 | PCM.WC.PN ---
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 Code(s): L97.513 - Non-pressure chronic ulcer of other part of right foot with necrosis of muscle (2) Ulcer of right lower extremity with fat layer exposed Status: Acute Code(s): L97.912 - Non-pressure chronic ulcer of unspecified part of right lower leg with fat layer exposed (3) Cellulitis of right lower limb Status: Resolved Code(s): L03.115 - Cellulitis of right lower limb (4) Osteomyelitis Status: Chronic Code(s): M86.9 - Osteomyelitis, unspecified (5) Peripheral vascular disease Status: Chronic Code(s): I73.9 - Peripheral vascular disease, unspecified (6) Malnutrition Status: Chronic Code(s): E46 - Unspecified protein-calorie malnutrition (7) Amputation of right foot Status: Chronic Qualifiers: Code(s): S98.911A - Complete traumatic amputation of right foot, level unspecified, initial encounter Comment: transmetatarsal amputation (8) Type 2 diabetes mellitus with diabetic polyneuropathy Status: Chronic Code(s): E11.42 - Type 2 diabetes mellitus with diabetic polyneuropathy Type of Wound Date of Service: 10/06/20 Chief Complaint: Follow-up right lateral diabetic foot ulcer now revisional metatarsal resection (4 and 5) History of Wound: 74-year-old male with a left below knee amputation and right transmetatarsal amp follows up for ulcer of lateral foot. He underwent revisional 4th and 5th metatarsal resections with Dr. Shah on 08/15/2020. He denies pain. He denies fever, chills, nausea, vomiting. He had MRSA growth and is currently completing a 6-week course of IV antibiotics with end date of . He is under the management of infectious disease physician previously. He is with his today and is doing well. Progress of Wound: Right foot status post additional fourth and fifth ray resections stable. Additional ulcer right foot stable - Physical Exam Vital Signs Temp Pulse Resp BP 96.9 F L 62 18 101/45 L 10/06/20 09:09 10/06/20 09:09 10/06/20 09:09 10/06/20 09:09 General: Alert, Oriented x3, Cooperative, No apparent distress HEENT: Atraumatic Extremities: No cyanosis, Capillary Refill Less than 3 Seconds, No Calf Tenderness, Diminished Peripheral Pulses, Edema Skin: Ulcer/ Wound - No purulence, odor, erythema or streaking. There is nonhealing noted ulcer site with exposed deep tissue including tendon however this is reduced and there is no maceration. His skin is atrophic and hairless Wound Measurements and Assessment WC - Nurse 1 - General Ulcer Measurement Start: 10/06/20 09:08 Freq: Status: Active Protocol: Activity Type Activity Date Activity User E-Sign Co-Sign Detail Recorded Client Recorded Date Recorded By Document 10/06/20 09:09 RB [id number] 10/06/20 09:23 RB 10/06/20 09:09 Wound Center Nurse 1 [Ulcer Assessment] 7-right yo -Combined with other wound No -Current Size (cm) - Length 3 -Current Size (cm) - Width 2.3 -Current Size (cm) - Depth 0.1 -Total Square Cm 6.9 -Tunneling No -Undermining/Tunneling No -Exudate Amt Small -Exudate Type Serosanguineous -Granulation Amt Medium (34-66%) -Granulation Quality [place] -Slough/Fibrin Yes -Necrosis Amt Small (1-33%) -Structure Exposed N/A -Texture (Allison-wound Skin Appearance) Assessed -Moisture (Allison-wound Skin Appearance Assessed ) -Color (Allison-wound Skin Appearance) Assessed -Temperature (Allison-wound Skin No Abnormality Appearance) (Pt Warm) -Tenderness on Palpation (Allison-wound No Skin Appearance) -Ulcer Cleansing Wound Cleanser -Foul Odor after Cleansing No -Anesthetic Used 4% Lidocaine Solution 6-right lateral lower foot -Combined with other wound No -Current Size (cm) - Length 0.1 -Current Size (cm) - Width 0.1 -Current Size (cm) - Depth 0.1 -Total Square Cm 0.01 -Tunneling No -Undermining/Tunneling No -Circular Undermining No -Exudate Amt None Present -Wound Margin Flat & Intact -Granulation Amt Large (67-100%) -Granulation Quality [place] -Slough/Fibrin Yes -Necrosis Amt Small (1-33%) -Necrotic Tissue Type Adherent Slough -Structure Exposed N/A -Texture (Allison-wound Skin Appearance) Assessed -Moisture (Allison-wound Skin Appearance Assessed ) -Color (Allison-wound Skin Appearance) Assessed -Temperature (Allison-wound Skin No Abnormality Appearance) (Pt Warm) -Tenderness on Palpation (Allison-wound No Skin Appearance) -Ulcer Cleansing Wound Cleanser -Foul Odor after Cleansing No -Anesthetic Used 4% Lidocaine Solution #3- R LAT FOOT -Combined with other wound No -Current Size (cm) - Length 3.3 -Current Size (cm) - Width 1.5 -Current Size (cm) - Depth 0.8 -Total Square Cm 4.95 -Tunneling No -Undermining/Tunneling Yes -Undermining/Tunneling Starts (O' 4 clock) -Undermining/Tunneling Ends (O'clock) 6 -Maximum Distance (cm) 2.5 -Exudate Amt Medium -Exudate Type Serosanguineous -Wound Margin Thickened & Rolled Under -Granulation Amt Medium (34-66%) -Granulation Quality [place] -Slough/Fibrin Yes -Necrosis Amt Medium (34-66%) -Necrotic Tissue Type Adherent Slough -Structure Exposed N/A -Texture (Allison-wound Skin Appearance) Scarring -Moisture (Allison-wound Skin Appearance Assessed ) -Temperature (Allison-wound Skin No Abnormality Appearance) (Pt Warm) -Tenderness on Palpation (Allison-wound No Skin Appearance) -Ulcer Cleansing Wound Cleanser -Foul Odor after Cleansing No -Anesthetic Used 4% Lidocaine Solution WC - Nurse 2 - General Ulcer CM Notes Start: 10/06/20 09:08 Freq: Status: Active Protocol: Activity Type Activity Date Activity User E-Sign Co-Sign Detail Recorded Client Recorded Date Recorded By Document 10/06/20 09:28 [email or web address] [id number] 10/06/20 09:38 ISAURA 10/06/20 09:28 Wound Center Nurse 2 [Procedure/Treatment] 7-right yo -Time 09:32 -Correct Patient Yes -Correct Side, Site, Position Yes -Correct Procedure Yes -Procedure Performed Yes -Type of Procedure Debridement -Clinical Debridement Subcutaneous -Tissue Removed Subcutaneous -Post Debridement (cm) - Length 3 -Post Debridement (cm) - Width 2.4 -Post Debridement (cm) - Depth 0.1 -Total Square (Post) (cm) 7.2 -Area of Debridement (cm) - Length 3 -Area of Debridement (cm) - Width 2.4 -Total Square (Area) (cm) 7.2 -Tunneling No -Undermining/Tunneling No -Circular Undermining No -Wound/Ulcer Outcome Not Healed -Ulcer Cleansing Rinsed/ Irrigated with Saline -Foul Odor after Cleansing No -Bioengineered Tissue No -Bleeding Controlled with Pressure -Offloading No -Treatment Response Procedure Tolerated Well -Debridement - Subq, 1st 20sq cm Yes 6-right lateral lower foot -Time 09:33 -Correct Patient Yes -Correct Side, Site, Position Yes -Correct Procedure Yes -Procedure Performed Yes -Type of Procedure Debridement -Clinical Debridement Subcutaneous -Tissue Removed Subcutaneous -Post Debridement (cm) - Length 0.5 -Post Debridement (cm) - Width 0.5 -Post Debridement (cm) - Depth 0.2 -Total Square (Post) (cm) 0.25 -Area of Debridement (cm) - Length 0.5 -Area of Debridement (cm) - Width 0.5 -Total Square (Area) (cm) 0.25 -Tunneling No -Undermining/Tunneling No -Circular Undermining No -Wound/Ulcer Outcome Not Healed -Ulcer Cleansing Rinsed/ Irrigated with Saline -Foul Odor after Cleansing No -Bioengineered Tissue No -Bleeding Controlled with Pressure -Offloading Yes -Type of Offloading Camwalker -Treatment Response Procedure Tolerated Well -Debridement - Subq, 20sq cm No #3- R LAT FOOT -Time 09:34 -Correct Patient Yes -Correct Side, Site, Position Yes -Correct Procedure Yes -Procedure Performed Yes -Type of Procedure Debridement -Clinical Debridement Subcutaneous -Tissue Removed Subcutaneous -Post Debridement (cm) - Length 2.5 -Post Debridement (cm) - Width 3.5 -Post Debridement (cm) - Depth 1 -Total Square (Post) (cm) 8.75 -Area of Debridement (cm) - Length 2.5 -Area of Debridement (cm) - Width 3.5 -Total Square (Area) (cm) 8.75 -Tunneling No -Undermining/Tunneling No -Circular Undermining No -Wound/Ulcer Outcome Not Healed -Ulcer Cleansing Rinsed/ Irrigated with Saline -Foul Odor after Cleansing No -Bioengineered Tissue No -Bleeding Controlled with Pressure -Offloading Yes -Type of Offloading Camwalker -Treatment Response Procedure Tolerated Well -Debridement - Subq, 20sq cm No [See Physician Procedure note for Specifics] Pain Scale: 0-10 Numeric [Pain] -Is Patient Pain Free? Yes - Nurse 3 - General Ulcer D/C NN Start: 10/06/20 09:08 Freq: Status: Active Protocol: Activity Type Activity Date Activity User E-Sign Co-Sign Detail Recorded Client Recorded Date Recorded By Document 10/06/20 09:51 DL [id number] 10/06/20 09:54 DL 10/06/20 09:51 Wound Care Nurse 3 [Wound Dressing] 7-right yo -Ulcer Cleansing Rinsed/ Irrigated with Saline -Foul Odor after Cleansing No -Primary Dressing Applied Aquacel Extra -Primary Dressing Covered/Secured Dry Gauze,Dry with Gauze & Roll Gauze,Secured with Tape -Aquacel Extra 1 6-right lateral lower foot -Ulcer Cleansing Rinsed/ Irrigated with Saline -Foul Odor after Cleansing No -Other Dressing betadine -Primary Dressing Covered/Secured Dry Gauze,Dry with Gauze & Roll Gauze,Secured with Tape #3- R LAT FOOT -Ulcer Cleansing Rinsed/ Irrigated with Saline -Foul Odor after Cleansing No -Other Dressing Betadine -Primary Dressing Covered/Secured Dry Gauze,Dry with Gauze & Roll Gauze,Secured with Tape [Compression Applied] Right -Other tubigrip [Post Procedure Tolerated] -Treatment Response Procedure Tolerated Well Pain Scale: 0-10 Numeric [Pain] -Is Patient Pain Free? Yes - Visit Discharge [Visit Discharge Information] -Discharge Condition Stable -Ambulatory Status Ambulatory -Transportation Private Auto -Notes: Dressing applied by Courtney Chua today Musculoskeletal: Muscle Wasting, - - Transmetatarsal amputation. Compartments are soft to palpate. Neurological: - - Lack of epicritic sensation is consistent neuropathic status Psych/Mental Status: Normal Affect, Appropriate Debridement Note Post-Debridement Measurements/Treatment WC - Nurse 2 - General Ulcer CM Notes Start: 10/06/20 09:08 Freq: Status: Active Protocol: Activity Type Activity Date Activity User E-Sign Co-Sign Detail Recorded Client Recorded Date Recorded By Document 10/06/20 09:28 [email or web address] [id number] 10/06/20 09:38 ISAURA 10/06/20 09:28 Wound Center Nurse 2 7-right yo -Time 09:32 -Correct Patient Yes -Correct Side, Site, Position Yes -Correct Procedure Yes -Procedure Performed Yes -Type of Procedure Debridement -Clinical Debridement Subcutaneous -Tissue Removed Subcutaneous -Post Debridement (cm) - Length 3 -Post Debridement (cm) - Width 2.4 -Post Debridement (cm) - Depth 0.1 -Total Square (Post) (cm) 7.2 -Area of Debridement (cm) - Length 3 -Area of Debridement (cm) - Width 2.4 -Total Square (Area) (cm) 7.2 -Tunneling No -Undermining/Tunneling No -Circular Undermining No -Wound/Ulcer Outcome Not Healed -Ulcer Cleansing Rinsed/ Irrigated with Saline -Foul Odor after Cleansing No -Bioengineered Tissue No -Bleeding Controlled with Pressure -Offloading No -Treatment Response Procedure Tolerated Well -Debridement - Subq, 1st 20sq cm Yes 6-right lateral lower foot -Time 09:33 -Correct Patient Yes -Correct Side, Site, Position Yes -Correct Procedure Yes -Procedure Performed Yes -Type of Procedure Debridement -Clinical Debridement Subcutaneous -Tissue Removed Subcutaneous -Post Debridement (cm) - Length 0.5 -Post Debridement (cm) - Width 0.5 -Post Debridement (cm) - Depth 0.2 -Total Square (Post) (cm) 0.25 -Area of Debridement (cm) - Length 0.5 -Area of Debridement (cm) - Width 0.5 -Total Square (Area) (cm) 0.25 -Tunneling No -Undermining/Tunneling No -Circular Undermining No -Wound/Ulcer Outcome Not Healed -Ulcer Cleansing Rinsed/ Irrigated with Saline -Foul Odor after Cleansing No -Bioengineered Tissue No -Bleeding Controlled with Pressure -Offloading Yes -Type of Offloading Camwalker -Treatment Response Procedure Tolerated Well -Debridement - Subq, 1st 20sq cm No #3- R LAT FOOT -Time 09:34 -Correct Patient Yes -Correct Side, Site, Position Yes -Correct Procedure Yes -Procedure Performed Yes -Type of Procedure Debridement -Clinical Debridement Subcutaneous -Tissue Removed Subcutaneous -Post Debridement (cm) - Length 2.5 -Post Debridement (cm) - Width 3.5 -Post Debridement (cm) - Depth 1 -Total Square (Post) (cm) 8.75 -Area of Debridement (cm) - Length 2.5 -Area of Debridement (cm) - Width 3.5 -Total Square (Area) (cm) 8.75 -Tunneling No -Undermining/Tunneling No -Circular Undermining No -Wound/Ulcer Outcome Not Healed -Ulcer Cleansing Rinsed/ Irrigated with Saline -Foul Odor after Cleansing No -Bioengineered Tissue No -Bleeding Controlled with Pressure -Offloading Yes -Type of Offloading Camwalker -Treatment Response Procedure Tolerated Well -Debridement - Subq, 1st 20sq cm No Pain Scale: 0-10 Numeric Is Patient Pain Free? Yes WC - Nurse 3 - General Ulcer D/C NN Start: 10/06/20 09:08 Freq: Status: Active Protocol: Activity Type Activity Date Activity User E-Sign Co-Sign Detail Recorded Client Recorded Date Recorded By Document 10/06/20 09:51 DL [id number] 10/06/20 09:54 DL 10/06/20 09:51 Wound Care Nurse 3 7-right yo -Ulcer Cleansing Rinsed/ Irrigated with Saline -Foul Odor after Cleansing No -Primary Dressing Applied Aquacel Extra -Primary Dressing Covered/Secured with Dry Gauze,Dry Gauze & Roll Gauze,Secured with Tape -Aquacel Extra 1 6-right lateral lower foot -Ulcer Cleansing Rinsed/ Irrigated with Saline -Foul Odor after Cleansing No -Other Dressing betadine -Primary Dressing Covered/Secured with Dry Gauze,Dry Gauze & Roll Gauze,Secured with Tape #3- R LAT FOOT -Ulcer Cleansing Rinsed/ Irrigated with Saline -Foul Odor after Cleansing No -Other Dressing Betadine -Primary Dressing Covered/Secured with Dry Gauze,Dry Gauze & Roll Gauze,Secured with Tape Right -Other tubigrip Treatment Response Procedure Tolerated Well Pain Scale: 0-10 Numeric Is Patient Pain Free? Yes WC - Visit Discharge Discharge Condition Stable Ambulatory Status Ambulatory Transportation Private Auto Notes: Dressing applied by Courtney Chua today Wound debrided: leg Laterality: Right Wound Grade/Stage: grade 1 Type of Debridement: Excisional debridement Anesthesia Used: 5% Lidocaine Gel Depth: in the subcutaneous layer, to muscle Percentage of wound debrided: 100, 10 Instrument Used: #15 blade, Forceps Tissue Removed: fibrous, devitalized subcutaneous, biofilm, slough Severity: Necrosis of Muscle Amount of bleeding with debridement: Mild Bleeding Controlled with: Pressure Patient tolerated procedure well - Additional Wound Wound debrided: lateral foot Assessment/Plan Active Problems (Last Updated 08/16/20 @ 13:[address] Eda Morin MD) Osteomyelitis (Chronic) Ulcer of right lower extremity with fat layer exposed (Acute) Ulcer of right foot with necrosis of muscle (Chronic) Peripheral vascular disease (Chronic) Malnutrition (Chronic) Amputation of right foot (Chronic) transmetatarsal amputation Type 2 diabetes mellitus with diabetic polyneuropathy (Chronic) Assessment: s/p revisional fourth and fifth ray resections with acute osteomyelitis (DOS 08/15/20, Dr. Shah) -dehisced with continued tendon exposure, no clinical signs of infection noted today. proximal lateral left foot ulcer with fat layer exposed, no local signs of infection today. New skin discontinuity to the anterior leg superficial. Increased edema right lower extremity. Xerosis lower extremities. healed left leg ulcer at below knee amputation site with callous/no wound or infection. Peripheral vascular disease. Coronary artery disease (EF ~ 19 %). Diabetes with insulin dependency. Polyneuropathy. malnutrition suspected. Chronic kidney disease on hemodialysis. Cardiac disease with pacemaker placed (needs exchanged soon) Plan: I reviewed and discussed his case. Excisional debridement was performed as noted in the clinical panel including tendon. His right surgical site is stable however healing potential remains guarded given vascular status. We discussed that is not likely his surgical site or ulcer on his right foot will heal within the next month. We discussed amputation as an option as well. He had his pacemaker exchanged without incident. The benefits of amputation include completely removing the nidus of infection, likely increased ambulation ability if healing occurs. Risks and consequences of the amputation include further increased cardiac load, continued possibility of nonhealing or infection statuses. He elects to proceed forward with more of a palliative type care program at this time and understands the goals of this treatment plan are to maintain or resolve infection in addition to disrupting his remaining daily life as little as possible. Risks of proceeding with wound care alone on a palliative basis include lack of resolution of infection and compromised cardiac pacemaker plan. Therefore, he was advised to change dressing daily with Betadine wet to dry dressing. Excisional subcutaneous were performed to the right foot. This is noted in the clinical panel with additional details. His vascular status has been optimized with a recent drug coated balloon angioplasty of the femoral artery with Dr. Busch. To continue on Plavix and aspirin. His recent hospital admission diagnostic data and intervention was reviewed. He was treated with a 6-week course of IV vancomycin with end date of 09-26-20. His labs were reviewed with recent hemoglobin A1c of 6.8%. Other labs from 09-10-20 were reviewed with white blood cell count of 7.0, ESR 11, C-reactive protein 197, creatinine 1.17. An additional course of oral doxycycline also be considered. Infectious disease physician, Dr. Glass is managing and also saw this patient this afternoon. Serial updated labs have been reviewed. His pathology bone fragments that were debrided in surgery demonstrate acute osteomyelitis. He was also reassured that there are no local signs of infection or purulence today. To continue offloading with pillow boot while resting in bed and also CAM walker with limited heel touch during short household periods of ambulation. To use assistive device. . To continue to improve glucose management. I recommend segundo or glucerna as a nutritional supplement. It is also noted he is on prednisone and this may be contributing to some of his delayed healing. His lower extremity edema is addressed today with bilateral Jem wrap application and an additional tubigrip (single layer). He was advised to perform intermittent elevation and lower extremity muscular contraction hourly. His dry skin is noted and he was advised to apply lotion daily. Continue Lac-Hydrin. To avoid direct application over any open ulcer sites. To return to clinic in one week or sooner if concerns. I answered all of his questions. Note: [email or web address] speech recognition fabric sourcer software was used to create portions of this document. Sound-alike and misspelled words, as well as other fabric sourcer errors may be contained in the documentation.
[2020-10-13 10:15] VITALS: BP 118/54; PULSE 92; RESP 20; TEMP 36.4; BMI 28.3
--- NOTE | 2020-10-13 12:05 | PCM.WC.PN ---
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 Code(s): L97.513 - Non-pressure chronic ulcer of other part of right foot with necrosis of muscle (2) Ulcer of right lower extremity with fat layer exposed Status: Chronic Code(s): L97.912 - Non-pressure chronic ulcer of unspecified part of right lower leg with fat layer exposed (3) Cellulitis of right lower limb Status: Resolved Code(s): L03.115 - Cellulitis of right lower limb (4) Osteomyelitis Status: Chronic Code(s): M86.9 - Osteomyelitis, unspecified (5) Peripheral vascular disease Status: Chronic Code(s): I73.9 - Peripheral vascular disease, unspecified (6) Malnutrition Status: Chronic Code(s): E46 - Unspecified protein-calorie malnutrition (7) Amputation of right foot Status: Chronic Qualifiers: Code(s): S98.911A - Complete traumatic amputation of right foot, level unspecified, initial encounter Comment: transmetatarsal amputation (8) Type 2 diabetes mellitus with diabetic polyneuropathy Status: Chronic Code(s): E11.42 - Type 2 diabetes mellitus with diabetic polyneuropathy Type of Wound Date of Service: 10/13/20 Chief Complaint: Follow-up right lateral diabetic foot ulcer now revisional metatarsal resection (4 and 5) History of Wound: 74-year-old male with a left below knee amputation (prior healed wound) and right transmetatarsal amp follows up for ulcer of lateral foot. He is also following up for right leg ulcer. He underwent revisional 4th and 5th metatarsal resections with Dr. Shah on 08/15/2020. He denies pain. He denies fever, chills, nausea, vomiting. He had MRSA growth and he completed a 6-week course of IV antibiotics with end date of . He was under the management of infectious disease physician previously. He is with his today and is doing well. He had his pacemaker updated and reports he is doing well. Progress of Wound: Right foot status post additional fourth and fifth ray resections stable. Additional ulcer right foot stable. Right leg ulcer stable - Physical Exam Vital Signs Temp Pulse Resp BP 97.5 F L 92 20 H 118/54 L 10/13/20 10:15 10/13/20 10:15 10/13/20 10:15 10/13/20 10:15 General: Alert, Oriented x3, Cooperative, No apparent distress Extremities: No cyanosis, Capillary Refill Less than 3 Seconds, No Calf Tenderness, Diminished Peripheral Pulses, Edema - Controlled Skin: Ulcer/ Wound - No purulence, erythema, streaking, odor, infection. Adjacent skin atrophic Wound Measurements and Assessment WC - Nurse 1 - General Ulcer Measurement Start: 10/06/20 09:08 Freq: Status: Active Protocol: Activity Type Activity Date Activity User E-Sign Co-Sign Detail Recorded Client Recorded Date Recorded By Document 10/13/20 10:15 DL [id number] 10/13/20 10:33 DL 10/13/20 10:15 Wound Center Nurse 1 [Ulcer Assessment] 7-right yo -Current Size (cm) - Length 2.6 -Current Size (cm) - Width 1.8 -Current Size (cm) - Depth 0.1 -Total Square Cm 4.68 -Photo Taken No -Exudate Amt Small -Exudate Type Serosanguineous -Wound Margin Distinct, Outline Attached -Granulation Amt None Present (0 %) -Necrosis Amt Large (67-100%) -Necrotic Tissue Type Adherent Slough -Structure Exposed N/A -Texture (Allison-wound Skin Appearance) Localized Edema ,Scarring -Moisture (Allison-wound Skin Appearance Weeping ) -Color (Allison-wound Skin Appearance) Rubor -Temperature (Allison-wound Skin No Abnormality Appearance) (Pt Warm) -Tenderness on Palpation (Allison-wound No Skin Appearance) -Ulcer Cleansing Wound Cleanser -Foul Odor after Cleansing No -Anesthetic Used 4% Lidocaine Solution 6-right lateral lower foot -Current Size (cm) - Length 3.7 -Current Size (cm) - Width 1.6 -Current Size (cm) - Depth 0.6 -Total Square Cm 5.92 -Photo Taken No -Exudate Amt Large -Exudate Type Serosanguineous -Wound Margin Thickened & Rolled Under -Granulation Amt Medium (34-66%) -Granulation Quality Red -Necrosis Amt Medium (34-66%) -Necrotic Tissue Type Adherent Slough -Structure Exposed N/A -Texture (Allison-wound Skin Appearance) Localized Edema ,Scarring -Moisture (Allison-wound Skin Appearance Maceration ) -Color (Allison-wound Skin Appearance) Rubor -Temperature (Allison-wound Skin No Abnormality Appearance) (Pt Warm) -Tenderness on Palpation (Allison-wound No Skin Appearance) -Ulcer Cleansing Wound Cleanser -Foul Odor after Cleansing No -Anesthetic Used 4% Lidocaine Solution #3- R LAT FOOT -Current Size (cm) - Length 0.6 -Current Size (cm) - Width 0.3 -Current Size (cm) - Depth 0.6 -Total Square Cm 0.18 -Photo Taken No -Exudate Amt Medium -Exudate Type Serosanguineous -Wound Margin Distinct, Outline Attached -Granulation Amt Medium (34-66%) -Granulation Quality Red -Necrosis Amt Medium (34-66%) -Necrotic Tissue Type Adherent Slough -Structure Exposed N/A -Texture (Allison-wound Skin Appearance) Localized Edema -Moisture (Allison-wound Skin Appearance Maceration ) -Color (Allison-wound Skin Appearance) No Abnormality, Rubor -Temperature (Allison-wound Skin No Abnormality Appearance) (Pt Warm) -Tenderness on Palpation (Allison-wound No Skin Appearance) -Ulcer Cleansing Wound Cleanser -Foul Odor after Cleansing No -Anesthetic Used 4% Lidocaine Solution [Edema Assessment] -Right Calf (cm) 41 -Right Ankle (cm) 28 WC - Nurse 2 - General Ulcer CM Notes Start: 10/06/20 09:08 Freq: Status: Active Protocol: Activity Type Activity Date Activity User E-Sign Co-Sign Detail Recorded Client Recorded Date Recorded By Document 10/13/20 10:35 [email or web address] [id number] 10/13/20 10:49 ISAURA 10/13/20 10:35 Wound Center Nurse 2 [Procedure/Treatment] 7-right yo -Time 10:42 -Correct Patient Yes -Correct Side, Site, Position Yes -Correct Procedure Yes -Procedure Performed Yes -Type of Procedure Debridement -Clinical Debridement Subcutaneous -Tissue Removed Subcutaneous -Post Debridement (cm) - Length 2.8 -Post Debridement (cm) - Width 1.8 -Post Debridement (cm) - Depth 0.1 -Total Square (Post) (cm) 5.04 -Area of Debridement (cm) - Length 2.8 -Area of Debridement (cm) - Width 1.8 -Total Square (Area) (cm) 5.04 -Tunneling No -Undermining/Tunneling No -Circular Undermining No -Wound/Ulcer Outcome Not Healed -Ulcer Cleansing Rinsed/ Irrigated with Saline -Foul Odor after Cleansing No -Bioengineered Tissue No -Bleeding Controlled with Pressure -Offloading No -Treatment Response Procedure Tolerated Well -Debridement - Subq, 1st 20sq cm Yes 6-right lateral lower foot -Time 10:42 -Correct Patient Yes -Correct Side, Site, Position Yes -Correct Procedure Yes -Procedure Performed Yes -Type of Procedure Debridement -Clinical Debridement Subcutaneous -Tissue Removed Subcutaneous -Post Debridement (cm) - Length 0.6 -Post Debridement (cm) - Width 0.4 -Post Debridement (cm) - Depth 0.6 -Total Square (Post) (cm) 0.24 -Area of Debridement (cm) - Length 0.6 -Area of Debridement (cm) - Width 0.4 -Total Square (Area) (cm) 0.24 -Tunneling No -Undermining/Tunneling No -Circular Undermining No -Wound/Ulcer Outcome Not Healed -Ulcer Cleansing Rinsed/ Irrigated with Saline -Foul Odor after Cleansing No -Bioengineered Tissue No -Bleeding Controlled with Pressure -Offloading Yes -Type of Offloading Camwalker -Treatment Response Procedure Tolerated Well -Debridement - Subq, 20sq cm No #3- R LAT FOOT -Time 10:43 -Correct Patient Yes -Correct Side, Site, Position Yes -Correct Procedure Yes -Procedure Performed Yes -Type of Procedure Debridement -Clinical Debridement Subcutaneous -Tissue Removed Subcutaneous -Post Debridement (cm) - Length 3.8 -Post Debridement (cm) - Width 1.6 -Post Debridement (cm) - Depth 0.6 -Total Square (Post) (cm) 6.08 -Area of Debridement (cm) - Length 3.8 -Area of Debridement (cm) - Width 1.6 -Total Square (Area) (cm) 6.08 -Tunneling No -Undermining/Tunneling No -Circular Undermining No -Wound/Ulcer Outcome Not Healed -Ulcer Cleansing Rinsed/ Irrigated with Saline -Foul Odor after Cleansing No -Bioengineered Tissue No -Bleeding Controlled with Pressure -Offloading Yes -Type of Offloading Camwalker -Treatment Response Procedure Tolerated Well -Debridement - Subq, 1st 20sq cm No [See Physician Procedure note for Specifics] Pain Scale: 0-10 Numeric [Pain] -Is Patient Pain Free? Yes WC - Nurse 3 - General Ulcer D/C NN Start: 10/06/20 09:08 Freq: Status: Active Protocol: Activity Type Activity Date Activity User E-Sign Co-Sign Detail Recorded Client Recorded Date Recorded By Document 10/13/20 11:24 RB [id number] 10/13/20 11:26 RB 10/13/20 11:24 Wound Care Nurse 3 [Wound Dressing] 7-right oy -Ulcer Cleansing Rinsed/ Irrigated with Saline -Primary Dressing Applied Aquacel Extra, NonAdherent Contact Layer -Primary Dressing Covered/Secured Dry Gauze,Dry with Gauze & Roll Gauze,Secured with Tape -Aquacel Extra 1 6-right lateral lower foot -Other Dressing betadine gauze -Primary Dressing Covered/Secured Dry Gauze,Dry with Gauze & Roll Gauze,Secured with Tape #3- R LAT FOOT -Other Dressing betadine gauze -Primary Dressing Covered/Secured Dry Gauze,Dry with Gauze & Roll Gauze,Secured with Tape [Compression Applied] Right -Tubular Bandage Single Layer -Size of Tubigrip Used Size E -Size E ($) 1 Pain Scale: 0-10 Numeric [Pain] -Is Patient Pain Free? Yes WC - Visit Discharge [Visit Discharge Information] -Discharge Condition Stable -Ambulatory Status Wheelchair -Transportation Private Auto -Medication Reconcilliation completed No & provided to patient/care provider -Clinical Summary of Care Provided Yes Musculoskeletal: No Tenderness to Palpation of Joints or Extremities, Muscle Wasting, - - Left below-knee amputation. Right transmetatarsal amputation Neurological: - - Lack of epicritic sensation to light touch is consistent with neuropathy Psych/Mental Status: Normal Affect, Appropriate Debridement Note Post-Debridement Measurements/Treatment - Nurse 2 - General Ulcer CM Notes Start: 10/06/20 09:08 Freq: Status: Active Protocol: Activity Type Activity Date Activity User E-Sign Co-Sign Detail Recorded Client Recorded Date Recorded By Document 10/06/20 09:28 [email or web address] [id number] 10/06/20 09:38 Document 10/13/20 10:35 [id number] 10/13/20 10:49 JF 10/06/20 10/13/20 09:28 10:35 Wound Center Nurse 2 7-right yo -Time 09:32 10:42 -Correct Patient Yes Yes -Correct Side, Site, Position Yes Yes -Correct Procedure Yes Yes -Procedure Performed Yes Yes -Type of Procedure Debridement Debridement -Clinical Debridement Subcutaneous Subcutaneous -Tissue Removed Subcutaneous Subcutaneous -Post Debridement (cm) - Length 3 2.8 -Post Debridement (cm) - Width 2.4 1.8 -Post Debridement (cm) - Depth 0.1 0.1 -Total Square (Post) (cm) 7.2 5.04 -Area of Debridement (cm) - Length 3 2.8 -Area of Debridement (cm) - Width 2.4 1.8 -Total Square (Area) (cm) 7.2 5.04 -Tunneling No No -Undermining/Tunneling No No -Circular Undermining No No -Wound/Ulcer Outcome Not Healed Not Healed -Ulcer Cleansing Rinsed/ Rinsed/ Irrigated with Irrigated with Saline Saline -Foul Odor after Cleansing No No -Bioengineered Tissue No No -Bleeding Controlled with Pressure Pressure -Offloading No No -Treatment Response Procedure Procedure Tolerated Well Tolerated Well -Debridement - Subq, 1st 20sq cm Yes Yes 6-right lateral lower foot -Time 09:33 10:42 -Correct Patient Yes Yes -Correct Side, Site, Position Yes Yes -Correct Procedure Yes Yes -Procedure Performed Yes Yes -Type of Procedure Debridement Debridement -Clinical Debridement Subcutaneous Subcutaneous -Tissue Removed Subcutaneous Subcutaneous -Post Debridement (cm) - Length 0.5 0.6 -Post Debridement (cm) - Width 0.5 0.4 -Post Debridement (cm) - Depth 0.2 0.6 -Total Square (Post) (cm) 0.25 0.24 -Area of Debridement (cm) - Length 0.5 0.6 -Area of Debridement (cm) - Width 0.5 0.4 -Total Square (Area) (cm) 0.25 0.24 -Tunneling No No -Undermining/Tunneling No No -Circular Undermining No No -Wound/Ulcer Outcome Not Healed Not Healed -Ulcer Cleansing Rinsed/ Rinsed/ Irrigated with Irrigated with Saline Saline -Foul Odor after Cleansing No No -Bioengineered Tissue No No -Bleeding Controlled with Pressure Pressure -Offloading Yes Yes -Type of Offloading Camwalker Camwalker -Treatment Response Procedure Procedure Tolerated Well Tolerated Well -Debridement - Subq, 1st 20sq cm No No #3- R LAT FOOT -Time 09:34 10:43 -Correct Patient Yes Yes -Correct Side, Site, Position Yes Yes -Correct Procedure Yes Yes -Procedure Performed Yes Yes -Type of Procedure Debridement Debridement -Clinical Debridement Subcutaneous Subcutaneous -Tissue Removed Subcutaneous Subcutaneous -Post Debridement (cm) - Length 2.5 3.8 -Post Debridement (cm) - Width 3.5 1.6 -Post Debridement (cm) - Depth 1 0.6 -Total Square (Post) (cm) 8.75 6.08 -Area of Debridement (cm) - Length 2.5 3.8 -Area of Debridement (cm) - Width 3.5 1.6 -Total Square (Area) (cm) 8.75 6.08 -Tunneling No No -Undermining/Tunneling No No -Circular Undermining No No -Wound/Ulcer Outcome Not Healed Not Healed -Ulcer Cleansing Rinsed/ Rinsed/ Irrigated with Irrigated with Saline Saline -Foul Odor after Cleansing No No -Bioengineered Tissue No No -Bleeding Controlled with Pressure Pressure -Offloading Yes Yes -Type of Offloading Camwalker Camwalker -Treatment Response Procedure Procedure Tolerated Well Tolerated Well -Debridement - Subq, 1st 20sq cm No No Pain Scale: 0-10 Numeric Is Patient Pain Free? Yes Yes WC - Nurse 3 - General Ulcer D/C NN Start: 10/06/20 09:08 Freq: Status: Active Protocol: Activity Type Activity Date Activity User E-Sign Co-Sign Detail Recorded Client Recorded Date Recorded By Document 10/06/20 09:51 DL [id number] 10/06/20 09:54 DL Document 10/13/20 11:24 RB [id number] 10/13/20 11:26 RB 10/06/20 10/13/20 09:51 11:24 Wound Care Nurse 3 7-right yo -Ulcer Cleansing Rinsed/ Rinsed/ Irrigated with Irrigated with Saline Saline -Foul Odor after Cleansing No -Primary Dressing Applied Aquacel Extra Aquacel Extra, NonAdherent Contact Layer -Primary Dressing Covered/Secured with Dry Gauze,Dry Dry Gauze,Dry Gauze & Roll Gauze & Roll Gauze,Secured Gauze,Secured with Tape with Tape -Aquacel Extra 1 1 6-right lateral lower foot -Ulcer Cleansing Rinsed/ Irrigated with Saline -Foul Odor after Cleansing No -Other Dressing betadine betadine gauze -Primary Dressing Covered/Secured with Dry Gauze,Dry Dry Gauze,Dry Gauze & Roll Gauze & Roll Gauze,Secured Gauze,Secured with Tape with Tape #3- R LAT FOOT -Ulcer Cleansing Rinsed/ Irrigated with Saline -Foul Odor after Cleansing No -Other Dressing Betadine betadine gauze -Primary Dressing Covered/Secured with Dry Gauze,Dry Dry Gauze,Dry Gauze & Roll Gauze & Roll Gauze,Secured Gauze,Secured with Tape with Tape Right -Tubular Bandage Single Layer -Size of Tubigrip Used Size E -Size E ($) 1 -Other tubigrip Treatment Response Procedure Tolerated Well Pain Scale: 0-10 Numeric Is Patient Pain Free? Yes Yes WC - Visit Discharge Discharge Condition Stable Stable Ambulatory Status Ambulatory Wheelchair Transportation Private Auto Private Auto Medication Reconcilliation completed & No provided to patient/care provider Clinical Summary of Care Provided Yes Notes: Dressing applied by Courtney Chua today Wound debrided: foot Laterality: Right Wound Grade/Stage: grade 3 Type of Debridement: Excisional debridement Anesthesia Used: 5% Lidocaine Gel Depth: in the subcutaneous layer Percentage of wound debrided: 100 Instrument Used: #15 blade Tissue Removed: fibrous, devitalized subcuteanous, biofilm, slough Severity: Fat Layer Exposed Amount of bleeding with debridement: Mild Bleeding Controlled with: Pressure Patient tolerated procedure well - Additional Wound Wound debrided: leg Laterality: Right Wound Grade/Stage: grade 1 Type of Debridement: Excisional debridement Anesthesia Used: 5% Lidocaine Gel Depth: in the subcutaneous layer Percentage of wound debrided: 100 Instrument Used: #15 blade Tissue Removed: fibrous, devitalized subcuteanous, biofilm, slough Severity: Fat Layer Exposed Amount of bleeding with debridement: Mild Bleeding Controlled with: Pressure Patient tolerated procedure: Patient tolerated procedure well Assessment/Plan Active Problems (Last Updated 08/16/20 @ 13:[address] 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 Shah) -dehisced with continued tendon exposure, no clinical signs of infection noted today. proximal lateral left foot ulcer with fat layer exposed, no local signs of infection today. anterior leg ulcer with fat layer exposed, stable without infection. edema right lower extremity. Xerosis lower extremities. healed left leg ulcer at below knee amputation site with callous/no wound or infection. Peripheral vascular disease. Coronary artery disease (EF ~ 19 %). Diabetes with insulin dependency. Polyneuropathy. malnutrition suspected. Chronic kidney disease on hemodialysis. Cardiac disease with pacemaker Plan: I reviewed and discussed his case. Excisional debridement was performed as noted in the clinical panel including subcutaneous tissue. His right surgical site is stable however healing potential remains guarded given vascular status. We discussed that is not likely his surgical site or ulcer on his right foot will heal within the next month. We discussed amputation as an option as well. He had his pacemaker exchanged without incident. The benefits of amputation include completely removing the nidus of infection, likely increased ambulation ability if healing occurs. Risks and consequences of the amputation include further increased cardiac load, continued possibility of nonhealing or infection statuses. He elects to proceed forward with more of a palliative type care program at this time and understands the goals of this treatment plan are to maintain or resolve infection in addition to disrupting his remaining daily life as little as possible. Risks of proceeding with wound care alone on a palliative basis include lack of resolution of infection and compromised cardiac pacemaker plan. Therefore, he was advised to change dressing daily with Betadine wet to dry dressing. Excisional subcutaneous were performed to the right foot and leg. This is noted in the clinical panel with additional details. His vascular status has been optimized with a recent drug coated balloon angioplasty of the femoral artery with Dr. Busch. To continue on Plavix and aspirin. His recent hospital admission diagnostic data and intervention was reviewed. He was treated with a 6-week course of IV vancomycin with end date of 09-26-20. His labs were reviewed with recent hemoglobin A1c of 6.8%. Other labs from 09-10-20 were reviewed with white blood cell count of 7.0, ESR 11, C-reactive protein 197, creatinine 1.17. An additional course of oral doxycycline also be considered. Infectious disease physician has been on consult. Serial updated labs have been reviewed. His pathology bone fragments that were debrided in surgery demonstrate acute osteomyelitis. He was also reassured that there are no local signs of infection or purulence today. To continue offloading with pillow boot while resting in bed and also CAM walker with limited heel touch during short household periods of ambulation. To use assistive device. . To continue to improve glucose management. I recommend segundo or glucerna as a nutritional supplement. It is also noted he is on prednisone and this may be contributing to some of his delayed healing. His lower extremity edema is addressed today with bilateral Jem wrap application and an additional tubigrip (single layer). He was advised to perform intermittent elevation and lower extremity muscular contraction hourly. His dry skin is noted and he was advised to apply lotion daily. Continue Lac-Hydrin. To avoid direct application over any open ulcer sites. To return to clinic in one week or sooner if concerns. I answered all of his questions. Note: [facility] speech recognition process laboratory specialist software was used to create portions of this document. Sound-alike and misspelled words, as well as other process laboratory specialist errors may be contained in the documentation.
[2020-10-20 11:15] VITALS: BP 101/31; PULSE 65; RESP 18; TEMP 36.3; BMI 28.3
--- NOTE | 2020-10-20 14:54 | PN.PCM_ITS ---
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 Code(s): L97.513 - Non-pressure chronic ulcer of other part of right foot with necrosis of muscle (2) Cellulitis of right lower limb Status: Resolved Code(s): L03.115 - Cellulitis of right lower limb (3) Osteomyelitis Status: Chronic Code(s): M86.9 - Osteomyelitis, unspecified (4) Peripheral vascular disease Status: Chronic Code(s): I73.9 - Peripheral vascular disease, unspecified (5) Malnutrition Status: Chronic Code(s): E46 - Unspecified protein-calorie malnutrition (6) Amputation of right foot Status: Chronic Qualifiers: Code(s): S98.911A - Complete traumatic amputation of right foot, level unspecified, initial encounter Comment: transmetatarsal amputation (7) Type 2 diabetes mellitus with diabetic polyneuropathy Status: Chronic Code(s): E11.42 - Type 2 diabetes mellitus with diabetic polyneuropathy Type of Wound Date of Service: 10/20/20 Chief Complaint: Follow-up right lateral diabetic foot ulcer now revisional metatarsal resection (4 and 5) History of Wound: 74-year-old male with a left below knee amputation (prior healed wound) and right transmetatarsal amp follows up for ulcer of lateral foot. He is also following up for right leg ulcer. He underwent revisional 4th and 5th metatarsal resections with Dr. Shah on 08/15/2020. He denies pain. He denies fever, chills, nausea, vomiting. He had MRSA growth and he completed a 6-week course of IV antibiotics with end date of . He was under the management of infectious disease physician previously. He is with his today and is doing well. He denies foot odor or redness. Progress of Wound: Right foot status post additional fourth and fifth ray resections stable. Additional ulcer right foot stable - Physical Exam Vital Signs Temp Pulse Resp BP 97.4 F L 65 18 101/31 L 10/20/20 11:15 10/20/20 11:15 10/20/20 11:15 10/20/20 11:15 General: Alert, Oriented x3, Cooperative, No apparent distress HEENT: Atraumatic Extremities: No cyanosis, Capillary Refill Less than 3 Seconds, No Calf Tenderness, Diminished Peripheral Pulses, Edema Skin: Ulcer/ Wound - No purulence, erythema, string, odor, infection. Decreased inflammation with subcutaneous and minimal tendon exposed the lateral foot, - - Left prosthetic and refrigeration insulator in place Wound Measurements and Assessment WC - Nurse 1 - General Ulcer Measurement Start: 10/06/20 09:08 Freq: Status: Active Protocol: Activity Type Activity Date Activity User E-Sign Co-Sign Detail Recorded Client Recorded Date Recorded By Document 10/20/20 11:15 DL [id number] 10/20/20 11:27 DL 10/20/20 11:15 Wound Center Nurse 1 [Ulcer Assessment] 7-right yo -Current Size (cm) - Length 2.5 -Current Size (cm) - Width 1.3 -Current Size (cm) - Depth 0.1 -Total Square Cm 3.25 -Photo Taken No -Exudate Amt Small -Wound Margin Distinct, Outline Attached -Granulation Amt Small (1-33%) -Granulation Quality [employer] -Necrosis Amt Large (67-100%) -Necrotic Tissue Type Adherent Slough -Structure Exposed N/A -Texture (Allison-wound Skin Appearance) Scarring -Moisture (Allison-wound Skin Appearance No Abnormality ) -Color (Allison-wound Skin Appearance) Rubor -Temperature (Allison-wound Skin No Abnormality Appearance) (Pt Warm) -Tenderness on Palpation (Allison-wound No Skin Appearance) -Ulcer Cleansing Wound Cleanser -Foul Odor after Cleansing No -Anesthetic Used 4% Lidocaine Solution 6-right lateral lower foot -Current Size (cm) - Length 0.4 -Current Size (cm) - Width 0.5 -Current Size (cm) - Depth 0.7 -Total Square Cm 0.20 -Photo Taken No -Exudate Amt Medium -Wound Margin Distinct, Outline Attached -Granulation Amt Small (1-33%) -Granulation Quality Red -Necrosis Amt Small (1-33%) -Necrotic Tissue Type Adherent Slough -Structure Exposed N/A -Texture (Allison-wound Skin Appearance) Scarring -Moisture (Allison-wound Skin Appearance Maceration ) -Color (Allison-wound Skin Appearance) No Abnormality, Hemosiderin Staining -Temperature (Allison-wound Skin No Abnormality Appearance) (Pt Warm) -Tenderness on Palpation (Allison-wound No Skin Appearance) -Ulcer Cleansing Wound Cleanser -Foul Odor after Cleansing No -Anesthetic Used 4% Lidocaine Solution #3- R LAT FOOT -Current Size (cm) - Length 3.8 -Current Size (cm) - Width 1.8 -Current Size (cm) - Depth 0.7 -Total Square Cm 6.84 -Photo Taken No -Undermining/Tunneling Starts (O' 6 clock) -Undermining/Tunneling Ends (O'clock) 11 -Maximum Distance (cm) 2.8 -Exudate Amt Medium -Exudate Type Serosanguineous -Wound Margin Thickened & Rolled Under -Granulation Amt Medium (34-66%) -Granulation Quality Red -Necrosis Amt Medium (34-66%) -Necrotic Tissue Type Adherent Slough -Structure Exposed N/A -Moisture (Allison-wound Skin Appearance Maceration ) -Color (Allison-wound Skin Appearance) Hemosiderin Staining -Temperature (Allison-wound Skin No Abnormality Appearance) (Pt Warm) -Tenderness on Palpation (Allison-wound No Skin Appearance) -Ulcer Cleansing Wound Cleanser -Foul Odor after Cleansing No -Anesthetic Used 4% Lidocaine Solution [Edema Assessment] -Right Calf (cm) 37 -Right Ankle (cm) 27 WC - Nurse 2 - General Ulcer CM Notes Start: 10/06/20 09:08 Freq: Status: Active Protocol: Activity Type Activity Date Activity User E-Sign Co-Sign Detail Recorded Client Recorded Date Recorded By Document 10/20/20 11:53 ISAURA [id number] 10/20/20 11:55 ISAURA 10/20/20 11:53 Wound Center Nurse 2 [Procedure/Treatment] 7-right yo -Correct Patient No -Correct Side, Site, Position No -Correct Procedure No -Procedure Performed No -Wound/Ulcer Outcome Not Healed 6-right lateral lower foot -Correct Patient No -Correct Side, Site, Position No -Correct Procedure No -Procedure Performed No -Wound/Ulcer Outcome Not Healed #3- R LAT FOOT -Correct Patient No -Correct Side, Site, Position No -Correct Procedure No -Procedure Performed No -Wound/Ulcer Outcome Not Healed [See Physician Procedure note for Specifics] Pain Scale: 0-10 Numeric [Pain] -Is Patient Pain Free? Yes GEOVANNI - Nurse 3 - General Ulcer D/C NN Start: 10/06/20 09:08 Freq: Status: Active Protocol: Activity Type Activity Date Activity User E-Sign Co-Sign Detail Recorded Client Recorded Date Recorded By Document 10/20/20 12:04 CHANDRAKANT [id number] 10/20/20 12:05 CHANDRAKANT 10/20/20 12:04 Wound Care Nurse 3 [Wound Dressing] 7-right yo -Ulcer Cleansing Rinsed/ Irrigated with Saline -Primary Dressing Applied Aquacel Extra -Primary Dressing Covered/Secured Dry Gauze,Dry with Gauze & Roll Gauze,Secured with Tape -Aquacel Extra 1 6-right lateral lower foot -Primary Dressing Covered/Secured Dry Gauze, with Secured with Tape #3- R LAT FOOT -Primary Dressing Covered/Secured Dry Gauze, with Secured with Tape Pain Scale: 0-10 Numeric [Pain] -Is Patient Pain Free? Yes WC - Visit Discharge [Visit Discharge Information] -Discharge Condition Stable -Ambulatory Status Cane -Transportation Private Auto -Accompanied by Musculoskeletal: Muscle Wasting, - - Right amputation foot. Left below-knee amputation Neurological: - - Lack of normal epicritic sensation is consistent with neuropathic status Psych/Mental Status: Normal Affect, Appropriate Debridement Note Post-Debridement Measurements/Treatment - Nurse 2 - General Ulcer CM Notes Start: 10/06/20 09:08 Freq: Status: Active Protocol: Activity Type Activity Date Activity User E-Sign Co-Sign Detail Recorded Client Recorded Date Recorded By Document 10/06/20 09:28 [id number] 10/06/20 09:38 Document 10/13/20 10:35 [id number] 10/13/20 10:49 Document 10/20/20 11:53 [id number] 10/20/20 11:55 10/06/20 10/13/20 10/20/20 09:28 10:35 11:53 Wound Center Nurse 2 7-right yo -Time 09:32 10:42 -Correct Patient Yes Yes No -Correct Side, Site, Position Yes Yes No -Correct Procedure Yes Yes No -Procedure Performed Yes Yes No -Type of Procedure Debridement Debridement -Clinical Debridement Subcutaneous Subcutaneous -Tissue Removed Subcutaneous Subcutaneous -Post Debridement (cm) - Length 3 2.8 -Post Debridement (cm) - Width 2.4 1.8 -Post Debridement (cm) - Depth 0.1 0.1 -Total Square (Post) (cm) 7.2 5.04 -Area of Debridement (cm) - Length 3 2.8 -Area of Debridement (cm) - Width 2.4 1.8 -Total Square (Area) (cm) 7.2 5.04 -Tunneling No No -Undermining/Tunneling No No -Circular Undermining No No -Wound/Ulcer Outcome Not Healed Not Healed Not Healed -Ulcer Cleansing Rinsed/ Rinsed/ Irrigated with Irrigated with Saline Saline -Foul Odor after Cleansing No No -Bioengineered Tissue No No -Bleeding Controlled with Pressure Pressure -Offloading No No -Treatment Response Procedure Procedure Tolerated Well Tolerated Well -Debridement - Subq, 1st 20sq cm Yes Yes 6-right lateral lower foot -Time 09:33 10:42 -Correct Patient Yes Yes No -Correct Side, Site, Position Yes Yes No -Correct Procedure Yes Yes No -Procedure Performed Yes Yes No -Type of Procedure Debridement Debridement -Clinical Debridement Subcutaneous Subcutaneous -Tissue Removed Subcutaneous Subcutaneous -Post Debridement (cm) - Length 0.5 0.6 -Post Debridement (cm) - Width 0.5 0.4 -Post Debridement (cm) - Depth 0.2 0.6 -Total Square (Post) (cm) 0.25 0.24 -Area of Debridement (cm) - Length 0.5 0.6 -Area of Debridement (cm) - Width 0.5 0.4 -Total Square (Area) (cm) 0.25 0.24 -Tunneling No No -Undermining/Tunneling No No -Circular Undermining No No -Wound/Ulcer Outcome Not Healed Not Healed Not Healed -Ulcer Cleansing Rinsed/ Rinsed/ Irrigated with Irrigated with Saline Saline -Foul Odor after Cleansing No No -Bioengineered Tissue No No -Bleeding Controlled with Pressure Pressure -Offloading Yes Yes -Type of Offloading Camwalker Camwalker -Treatment Response Procedure Procedure Tolerated Well Tolerated Well -Debridement - Subq, 1st 20sq cm No No #3- R LAT FOOT -Time 09:34 10:43 -Correct Patient Yes Yes No -Correct Side, Site, Position Yes Yes No -Correct Procedure Yes Yes No -Procedure Performed Yes Yes No -Type of Procedure Debridement Debridement -Clinical Debridement Subcutaneous Subcutaneous -Tissue Removed Subcutaneous Subcutaneous -Post Debridement (cm) - Length 2.5 3.8 -Post Debridement (cm) - Width 3.5 1.6 -Post Debridement (cm) - Depth 1 0.6 -Total Square (Post) (cm) 8.75 6.08 -Area of Debridement (cm) - Length 2.5 3.8 -Area of Debridement (cm) - Width 3.5 1.6 -Total Square (Area) (cm) 8.75 6.08 -Tunneling No No -Undermining/Tunneling No No -Circular Undermining No No -Wound/Ulcer Outcome Not Healed Not Healed Not Healed -Ulcer Cleansing Rinsed/ Rinsed/ Irrigated with Irrigated with Saline Saline -Foul Odor after Cleansing No No -Bioengineered Tissue No No -Bleeding Controlled with Pressure Pressure -Offloading Yes Yes -Type of Offloading Camwalker Camwalker -Treatment Response Procedure Procedure Tolerated Well Tolerated Well -Debridement - Subq, 1st 20sq cm No No Pain Scale: 0-10 Numeric Is Patient Pain Free? Yes Yes Yes WC - Nurse 3 - General Ulcer D/C NN Start: 10/06/20 09:08 Freq: Status: Active Protocol: Activity Type Activity Date Activity User E-Sign Co-Sign Detail Recorded Client Recorded Date Recorded By Document 10/06/20 09:51 DL [id number] 10/06/20 09:54 DL Document 10/13/20 11:24 RB [id number] 10/13/20 11:26 RB Document 10/20/20 12:04 DL [id number] 10/20/20 12:05 DL 10/06/20 10/13/20 10/20/20 09:51 11:24 12:04 Wound Care Nurse 3 7-right yo -Ulcer Cleansing Rinsed/ Rinsed/ Rinsed/ Irrigated with Irrigated with Irrigated with Saline Saline Saline -Foul Odor after Cleansing No -Primary Dressing Applied Aquacel Extra Aquacel Extra, Aquacel Extra NonAdherent Contact Layer -Primary Dressing Covered/Secured with Dry Gauze,Dry Dry Gauze,Dry Dry Gauze,Dry Gauze & Roll Gauze & Roll Gauze & Roll Gauze,Secured Gauze,Secured Gauze,Secured with Tape with Tape with Tape -Aquacel Extra 1 1 1 6-right lateral lower foot -Ulcer Cleansing Rinsed/ Irrigated with Saline -Foul Odor after Cleansing No -Other Dressing betadine betadine gauze -Primary Dressing Covered/Secured with Dry Gauze,Dry Dry Gauze,Dry Dry Gauze, Gauze & Roll Gauze & Roll Secured with Gauze,Secured Gauze,Secured Tape with Tape with Tape #3- R LAT FOOT -Ulcer Cleansing Rinsed/ Irrigated with Saline -Foul Odor after Cleansing No -Other Dressing Betadine betadine gauze -Primary Dressing Covered/Secured with Dry Gauze,Dry Dry Gauze,Dry Dry Gauze, Gauze & Roll Gauze & Roll Secured with Gauze,Secured Gauze,Secured Tape with Tape with Tape Right -Tubular Bandage Single Layer -Size of Tubigrip Used Size E -Size E ($) 1 -Other tubigrip Treatment Response Procedure Tolerated Well Pain Scale: 0-10 Numeric Is Patient Pain Free? Yes Yes Yes WC - Visit Discharge Discharge Condition Stable Stable Stable Ambulatory Status Ambulatory Wheelchair Cane Transportation Private Auto Private Auto Private Auto Accompanied by Medication Reconcilliation completed & No provided to patient/care provider Clinical Summary of Care Provided Yes Notes: Dressing applied by Courtney Chua today Wound debrided: foot Laterality: Right Wound Grade/Stage: grade 3 Type of Debridement: Excisional debridement Anesthesia Used: 5% Lidocaine Gel Depth: in the subcutaneous layer Percentage of wound debrided: 100 Instrument Used: #15 blade Tissue Removed: fibrous, devitalized subcutaneous, biofilm, slough Severity: Fat Layer Exposed Amount of bleeding with debridement: Mild Bleeding Controlled with: Pressure Patient tolerated procedure well Assessment/Plan Active Problems (Last Updated 08/16/20 @ 13:[address] 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 Shah) -dehisced with continued tendon exposure, no clinical signs of infection noted today. proximal lateral left foot ulcer with fat layer exposed, no local signs of infection today. anterior leg ulcer with fat layer exposed, stable without infection. edema right lower extremity. Xerosis lower extremities. Peripheral vascular disease. Coronary artery disease (EF ~ 19 %). Diabetes with insulin dependency. Polyneuropathy. malnutrition suspected. Chronic kidney disease on hemodialysis. Cardiac disease with pacemaker Plan: I reviewed and discussed his case. Excisional debridement was performed as noted in the clinical panel including subcutaneous tissue. His right surgical site is stable however healing potential remains guarded given vascular status. We discussed that is not likely his surgical site or ulcer on his right foot will heal within the next month. We discussed amputation as an option as well. He had his pacemaker exchanged without incident. The benefits of amputation include completely removing the nidus of infection, likely increased ambulation ability if healing occurs. Risks and consequences of the amputation include further increased cardiac load, continued possibility of nonhealing or infection statuses. He elects to proceed forward with more of a palliative type care program at this time and understands the goals of this treatment plan are to maintain or resolve infection in addition to disrupting his remaining daily life as little as possible. Risks of proceeding with wound care alone on a palliative basis include lack of resolution of infection. Therefore, he was advised to change dressing daily with Betadine wet to dry dressing. Excisional subcutaneous were performed to the right foot. This is noted in the clinical panel with additional details. His vascular status has been optimized with a recent drug coated balloon angioplasty of the femoral artery with Dr. Busch. To continue on Plavix and aspirin. His recent hospital admission diagnostic data and intervention was reviewed. He was treated with a 6-week course of IV vancomycin with end date of 09-26-20. His labs were reviewed with recent hemoglobin A1c of 6.8%. Other labs from 09-10-20 were reviewed with white blood cell count of 7.0, ESR 11, C-reactive protein 197, creatinine 1.17. An additional course of oral doxycycline also be considered. Infectious disease physician has been on consult. Serial updated labs have been reviewed. His pathology bone fragments that were debrided in surgery demonstrate acute osteomyelitis. He was also reassured that there are no local signs of infection or purulence today. To continue offloading with pillow boot while resting in b ed and also CAM walker with limited heel touch during short household periods of ambulation. To use assistive device. . To continue to improve glucose management. I recommend segundo or glucerna as a nutritional supplement. It is also noted he is on prednisone and this may be contributing to some of his delayed healing. His lower extremity edema is addressed today with bilateral Jem wrap application and an additional tubigrip (single layer). He was advised to perform intermittent elevation and lower extremity muscular contraction hourly. His dry skin is noted and he was advised to apply lotion daily. Continue Lac-Hydrin. To avoid direct application over any open ulcer sites. To return to clinic in 2-3 weeks as a palliative care plan or sooner if concerns. I answered all of his questions. Note: [employer] speech recognition recycling operations manager software was used to create portions of this document. Sound-alike and misspelled words, as well as other recycling operations manager errors may be contained in the documentation.
== END 2020-10-29 23:59 ==
LOC: WC 11:15
PROVIDERS: PCP Family Medicine; Referring Provider Family Medicine; Visit Provider Podiatrist
DX: E11.621 Type 2 diabetes mellitus with foot ulcer (principal); E11.51 Type 2 diabetes mellitus with diabetic peripheral angiopathy without gangrene; E11.42 Type 2 diabetes mellitus with diabetic polyneuropathy; E11.69 Type 2 diabetes mellitus with other specified complication; M86.171 Other acute osteomyelitis, right ankle and foot; L97.812 Non-pressure chronic ulcer of other part of right lower leg with fat layer exposed; L97.512 Non-pressure chronic ulcer of other part of right foot with fat layer exposed; L97.813 Non-pressure chronic ulcer of other part of right lower leg with necrosis of muscle; L85.3 Xerosis cutis; I25.10 Atherosclerotic heart disease of native coronary artery without angina pectoris; R60.0 Localized edema; E11.22 Type 2 diabetes mellitus with diabetic chronic kidney disease; N18.9 Chronic kidney disease, unspecified; Z79.4 Long term (current) use of insulin; Z89.431 Acquired absence of right foot; Z89.512 Acquired absence of left leg below knee; Z86.14 Personal history of Methicillin resistant Staphylococcus aureus infection; Z79.02 Long term (current) use of antithrombotics/antiplatelets; Z79.82 Long term (current) use of aspirin; Z95.0 Presence of cardiac pacemaker
CPT/HCPCS: 11042; 99213; G0463

== ENCOUNTER 2020-11-17 10:45 | Outpatient (RCR) | payer MEDICARE, OTHER, SELFPAY ==
[2020-10-25 14:37] VITALS: BMI 28.1
[2020-10-30 00:38] VITALS: BP 101/31; PULSE 65; RESP 18; TEMP 36.3
[2020-11-03 11:14] VITALS: BP 107/57; PULSE 76; RESP 18; TEMP 36.4; BMI 28.1
--- NOTE | 2020-11-03 16:28 | PN.PCM_ITS ---
History of Present Illness Date of Service: 11/03/20 Chief Complaint: Follow-up right lateral diabetic foot ulcer now revisional metatarsal resection (4 and 5) and right leg ulcer History of Wound: 74-year-old male with a left below knee amputation (prior healed wound) and right transmetatarsal amp follows up for ulcer of lateral foot. He is also following up for right leg ulcer. He underwent revisional 4th and 5th metatarsal resections with Dr. Shah on 08/15/2020. He denies pain. He denies fever, chills, nausea, vomiting. He had MRSA growth and he completed a 6-week course of IV antibiotics with end date of . He was under the management of infectious disease physician previously. He is with his today and is doing well. He denies foot odor or redness. Objective Data Objective Data Vital Signs: Vital Signs Temp Pulse Resp BP 97.6 F L 76 18 107/57 L 11/03/20 11:14 11/03/20 11:14 11/03/20 11:14 11/03/20 11:14 Weight: 88.451 kg Body Mass Index (BMI) 28.1 Finger Stick Blood Glucose 318 Assessment & Plan Assessment/Plan (1) Ulcer of right foot with fat layer exposed: (2) Ulcer of right foot with muscle involvement without evidence of necrosis: (3) Peripheral vascular disease: (4) Malnutrition: (5) Amputation of right foot: (6) Type 2 diabetes mellitus with diabetic polyneuropathy: (7) Delayed wound healing: (8) Ulcer of right lower extremity with fat layer exposed: PLAN: Assessment:?s/p revisional fourth and fifth ray resections with acute osteomyelitis (DOS 08/15/20, Dr. Shah) -dehisced with continued tendon exposure, no clinical signs of infection noted today.? proximal lateral left foot ulcer with fat layer exposed, no local signs of infection today.? anterior leg ulcer with fat layer exposed, stable without infection.? edema right lower extremity.? Xerosis lower extremities.? Peripheral vascular disease.? Coronary artery disease? (EF ~ 19 %).? Diabetes with insulin dependency.? Polyneuropathy.? malnutrition suspected.? Chronic kidney disease on hemodialysis.? Cardiac disease with pacemaker Plan:?I reviewed and discussed his case.? Debridement was performed as noted in the clinical panel.? His right surgical site is stable however healing potential remains guarded given vascular status.? We discussed that is not likely his surgical site or ulcer on his right foot will heal within the next month. We discussed amputation as an option as well. ? He had his pacemaker exchanged without incident.? The benefits of amputation include completely removing the nidus of infection, likely increased ambulation ability if healing occurs.? Risks and consequences of the amputation include further increased cardiac load, continued possibility of nonhealing or infection statuses.? He elects to proceed forward with more of a palliative type care program at this time and understands the goals of this treatment plan are to maintain or resolve infection in addition to disrupting his remaining daily life as little as possible.? Risks of proceeding with wound care alone on a palliative basis include lack of resolution of infection.? Therefore, he was advised to change dressing daily with Betadine wet to dry dressing.? His vascular status has been optimized with a recent drug coated balloon angioplasty of the femoral artery with Dr. Busch.? To continue on Plavix and aspirin.? He was previously treated with a 6-week course of IV vancomycin with end date of 09-26-20.? His labs were reviewed with recent hemoglobin A1c of 6.8%.? Other labs from 09-10-20 were reviewed with white blood cell count of 7.0, ESR 11, C- reactive protein 197, creatinine 1.17.? An additional course of oral doxycycline also be considered.? Infectious disease physician has been on consult previously. Serial updated labs have been reviewed.? His pathology bone fragments that were debrided in surgery demonstrate acute osteomyelitis.? He was also reassured that there are no local signs of infection or purulence today.? To continue offloading with pillow boot while resting in bed and also CAM walker with limited heel touch during short household periods of ambulation. To use assistive device.?? To continue to improve glucose management.? I recommend segundo or glucerna as a nutritional supplement.? It is also noted he is on prednisone and this may be contributing to some of his delayed healing.? His lower extremity edema is addressed today with bilateral Jem wrap application and an additional tubigrip (single layer). He was advised to perform intermittent elevation and lower extremity muscular contraction hourly.? To return to clinic in 2-3 weeks as a palliative care plan or sooner if concerns. I answered all of his questions.? Not[employer]ix[employer] speech recognition wood veneer taper software was used to create portions of this document. Sound-alike and misspelled words, as well as other wood veneer taper errors may be contained in the documentation. Physical Exam Const alert and oriented x3 General Appearance: cooperative HEENT normocephalic Extremity Extremity Narrative: No calf tenderness Diminished pulses Muscle wasting noted Below-knee amputation, left transmetatarsal amputation, right General Extremity: edema and no tenderness to palpation of joints or extremiti es; Negative for cyanosis Skin Skin Narrative: no purulence, no streaking, no odor, no infection. Leg ulcer has peripheral epithelialization and a pale granular base. Left foot ulcer/open amputation site is stable without purulence or devitalized tissue or necrosis General Skin Exam: Negative for erythema Neuro Neuro Narrative: lack of normal epicritic sensation via light touch is consiste nt with neuropathy status Psych cooperative and affect normal Debridement Note Debridement Note Post-Debridement Measurements and Additional Note: Pre- Debridement Measurement: right leg (0.9 x 0.4 x 0.1 cm), right foot (lateral proximal 0.6 x 0.6 x 0.8), and right foot (lateral main site 3.5 x 1.8 x 0.4 cm) Procedure- Location: lateral right foot (both sites) Grade 3 Selective debridement performed Anesthesia: 5% lidocaine plain Debridement layer: healthy tissue Amount of debridement: 100% Instrumentation used: 15 blade Tissue debrided: fibrous, devitalized tissue, biofilm, slough Exposed tissue: fat layer Bleeding: mild Hemostasis controlled: pressure The patient tolerated the procedure well Post-Debridement Measurements/Treatment WC - Nurse 2 - General Ulcer CM Notes Start: 11/03/20 11:11 Freq: Status: Active Protocol: Activity Type Activity Date Activity User E-Sign Co-Sign Detail Recorded Client Recorded Date Recorded By Document 11/03/20 11:38 IASURA [id number] 11/03/20 11:45 ISAURA 11/03/20 11:38 Wound Center Nurse 2 7-right yo -Time 11:41 -Correct Patient Yes -Correct Side, Site, Position Yes -Correct Procedure Yes -Procedure Performed Yes -Type of Procedure Debridement -Clinical Debridement Subcutaneous -Tissue Removed Subcutaneous -Post Debridement (cm) - Length 1 -Post Debridement (cm) - Width 0.5 -Post Debridement (cm) - Depth 0.1 -Total Square (Post) (cm) 0.5 -Area of Debridement (cm) - Length 1 -Area of Debridement (cm) - Width 0.5 -Total Square (Area) (cm) 0.5 -Tunneling No -Undermining/Tunneling No -Circular Undermining No -Wound/Ulcer Outcome Not Healed -Ulcer Cleansing Rinsed/ Irrigated with Saline -Foul Odor after Cleansing No -Bioengineered Tissue No -Bleeding Controlled with Pressure -Offloading No -Treatment Response Procedure Tolerated Well -Debridement - Subq, 1st 20sq cm No 6-right lateral lower foot -Time 11:38 -Correct Patient Yes -Correct Side, Site, Position Yes -Correct Procedure Yes -Procedure Performed Yes -Type of Procedure Debridement -Clinical Debridement Subcutaneous -Tissue Removed Subcutaneous -Post Debridement (cm) - Length 0.6 -Post Debridement (cm) - Width 0.6 -Post Debridement (cm) - Depth 0.8 -Total Square (Post) (cm) 0.36 -Area of Debridement (cm) - Length 0.6 -Area of Debridement (cm) - Width 0.6 -Total Square (Area) (cm) 0.36 -Tunneling No -Undermining/Tunneling No -Circular Undermining No -Wound/Ulcer Outcome Not Healed -Ulcer Cleansing Rinsed/ Irrigated with Saline -Foul Odor after Cleansing No -Bioengineered Tissue No -Offloading Yes -Type of Offloading Surgical Shoe -Treatment Response Procedure Tolerated Well -Debridement - Subq, 1st 20sq cm Yes #3- R LAT FOOT -Time 11:39 -Correct Patient Yes -Correct Side, Site, Position Yes -Correct Procedure Yes -Procedure Performed Yes -Type of Procedure Debridement -Clinical Debridement Subcutaneous -Tissue Removed Subcutaneous -Post Debridement (cm) - Length 3.5 -Post Debridement (cm) - Width 1.8 -Post Debridement (cm) - Depth 0.4 -Total Square (Post) (cm) 6.30 -Area of Debridement (cm) - Length 3.5 -Area of Debridement (cm) - Width 1.8 -Total Square (Area) (cm) 6.30 -Tunneling No -Undermining/Tunneling No -Circular Undermining No -Wound/Ulcer Outcome Not Healed -Ulcer Cleansing Rinsed/ Irrigated with Saline -Foul Odor after Cleansing No -Bioengineered Tissue No -Bleeding Controlled with Pressure -Type of Offloading Surgical Shoe -Treatment Response Procedure Tolerated Well -Debridement - Subq, 1st 20sq cm No Pain Scale: 0-10 Numeric Is Patient Pain Free? Yes WC - Nurse 3 - General Ulcer D/C NN Start: 11/03/20 11:11 Freq: Status: Active Protocol: Activity Type Activity Date Activity User E-Sign Co-Sign Detail Recorded Client Recorded Date Recorded By Document 11/03/20 11:56 DL [id number] 11/03/20 11:58 DL 11/03/20 11:56 Wound Care Nurse 3 7-right yo -Ulcer Cleansing Rinsed/ Irrigated with Saline -Foul Odor after Cleansing No -Primary Dressing Applied Aquacel Extra, NonAdherent Contact Layer -Primary Dressing Covered/Secured with Dry Gauze, Secured with Tape -Aquacel Extra 1 6-right lateral lower foot -Ulcer Cleansing Wound Cleanser -Foul Odor after Cleansing No -Other Dressing Betadine -Primary Dressing Covered/Secured with Dry Gauze & Roll Gauze, Secured with Tape #3- R LAT FOOT -Ulcer Cleansing Wound Cleanser -Foul Odor after Cleansing No -Other Dressing betadine -Primary Dressing Covered/Secured with Dry Gauze & Roll Gauze, Secured with Tape Treatment Response Procedure Tolerated Well Pain Scale: 0-10 Numeric Is Patient Pain Free? Yes WC - Visit Discharge Discharge Condition Stable Ambulatory Status Wheelchair Transportation Private Auto Wound debrided: anterior right leg Wound Grade/Stage: 1 Anesthesia Used: 4% Lidocaine Solution Depth: in the subcutaneous layer Percentage of wound debrided: 100 Instrument Used: #15 blade Tissue Removed: fibrous, devitalized subcutaneous, biofilm, slough Severity: Fat Layer Exposed Amount of bleeding with debridement: Mild Bleeding Controlled with: Pressure Patient tolerated procedure: Patient tolerated procedure well
[2020-11-17 11:17] VITALS: BP 94/46; PULSE 75; RESP 18; TEMP 36.2; BMI 28.1
--- NOTE | 2020-11-17 22:18 | PN.PCM_ITS ---
History of Present Illness Date of Service: 11/17/20 Chief Complaint: Follow-up right lateral diabetic foot ulcer now revisional metatarsal resection (4 and 5) and right leg ulcer History of Wound: 74-year-old male with a left below knee amputation (prior healed wound) and right transmetatarsal amp follows up for ulcer of lateral foot. He is also following up for right leg ulcer. He underwent revisional 4th and 5th metatarsal resections with Dr. Shah on 08/15/2020. He denies pain. He denies fever, chills, nausea, vomiting. He had MRSA growth and he completed a 6-week course of IV antibiotics with end date of . He was under the management of infectious disease physician previously. He is with his today and is doing well. He denies foot odor or redness.He denies leg drainage and thinks this site has healed. Progress of Wound: stable right foot healed right leg Objective Data Objective Data Vital Signs: Vital Signs Temp Pulse Resp BP 97.2 F L 75 18 94/46 L 11/17/20 11:17 11/17/20 11:17 11/17/20 11:17 11/17/20 11:17 Weight: 88.451 kg Body Mass Index (BMI) 28.1 Physical Exam Const alert and oriented x3 General Appearance: cooperative HEENT normocephalic Extremity Extremity Narrative: No calf tenderness Diminished pulses Muscle wasting noted Below-knee amputation, left transmetatarsal amputation, right General Extremity: edema and no tenderness to palpation of joints or extremities; Negative for cyanosis Skin Skin Narrative: no purulence, no streaking, no odor, no infection. Leg ulcer has completed peripheral epithelialization and is healed today. Left foot ulcer/open amputation site is stable without purulence or devitalized tissue or necrosis General Skin Exam: Negative for erythema Neuro Neuro Narrative: lack of normal epicritic sensation via light touch is consistent with neuropathy status Psych cooperative and affect normal Debridement Note Debridement Note Post-Debridement Measurements and Additional Note: Post-Debridement Measurements/Treatment WC - Nurse 1 - General Ulcer Assessment Start: 11/03/20 11:11 Freq: Status: Active Protocol: GREG Activity Type Activity Date Activity User E-Sign Co-Sign Detail Recorded Client Recorded Date Recorded By Document 11/03/20 11:14 DL [id number] 11/03/20 11:30 DL Document 11/17/20 11:17 RB Desktop 11/17/20 11:20 RB 11/03/20 11/17/20 11:14 11:17 WC - Today's Visit Information Type of service Follow-up Visit Follow-up Visit (Physician/ASSISTANT CENTER MANAGER (Physician/ASSISTANT CENTER MANAGER ) ) Arrival Mode Wheelchair Wheelchair Transfer Assistance None None Patient Identification Verified (Name & Yes Yes ) Patient Requires Transmission-Based No No Precautions Height and Weight Body Mass Index (BMI) 28.1 28.1 BMI Classification Overweight Overweight Vital Signs Temperature (97.8 F-99.1 F) 97.6 F L 97.2 F L Temperature Source Temporal Temporal Pulse Rate (60-100) 76 75 Pulse Location Monitor Respiratory Rate (12-18) 18 18 Respiratory rate source Observation Observation Blood Pressure (90/60-120/80) 107/57 L 94/46 L Blood Pressure Mean (mm Hg) 73 62 Source Monitor Monitor Position Semi-Fowlers Blood Pressure Location Left Arm History Since Last Visit- (Skip if this is Patient's initial visit) Have you changed medications since your No No last visit? Any new allergies or adverse reactions No No Had a fall/change in ADL's that may No No increase risk of falls Signs or symptoms of abuse and/or No No neglect since last visit Have you been in the hospital since your No No last visit? Has dressing in place as prescribed Yes Yes Has compression in place as prescribed Yes No Has offloadiing in place as prescribed N/A Yes Experienced any changes in pain level or No No management Right Footwear Removable Cast Walker/Walking Boot Pain Scale: 0-10 Numeric Is Patient Pain Free? Yes Yes - Nurse 1 - General Ulcer Measurement Start: 11/03/20 11:11 Freq: Status: Active Protocol: Activity Type Activity Date Activity User E-Sign Co-Sign Detail Recorded Client Recorded Date Recorded By Document 11/03/20 11:14 DL [id number] 11/03/20 11:30 DL Document 11/17/20 11:17 RB Desktop 11/17/20 11:20 RB 11/03/20 11/17/20 11:14 11:17 Wound Center Nurse 1 7-right yo -Combined with other wound No -Current Size (cm) - Length 1 0.1 -Current Size (cm) - Width 0.5 0.1 -Current Size (cm) - Depth 0.1 0.1 -Total Square Cm 0.5 0.01 -Photo Taken No -Tunneling No -Undermining/Tunneling No -Circular Undermining No -Exudate Amt Small None Present -Exudate Type Serosanguineous -Wound Margin Distinct, Flat & Intact Outline Attached -Granulation Amt None Present (0 Medium (34-66%) %) -Granulation Quality [place] -Necrosis Amt Large (67-100%) Small (1-33%) -Necrotic Tissue Type Adherent Slough Adherent Slough -Structure Exposed N/A N/A -Texture (Allison-wound Skin Appearance) Scarring Assessed -Moisture (Allison-wound Skin Appearance) No Abnormality Assessed -Color (Allison-wound Skin Appearance) No Abnormality Assessed -Temperature (Allison-wound Skin No Abnormality No Abnormality Appearance) (Pt Warm) (Pt Warm) -Tenderness on Palpation (Allison-wound No No Skin Appearance) -Ulcer Cleansing Rinsed/ Wound Cleanser Irrigated with Saline -Foul Odor after Cleansing No No -Anesthetic Used 4% Lidocaine 5% Lidocaine Solution Gel 6-right lateral lower foot -Combined with other wound No -Current Size (cm) - Length 0.5 0.7 -Current Size (cm) - Width 0.6 0.5 -Current Size (cm) - Depth 0.8 0.7 -Total Square Cm 0.30 0.35 -Photo Taken No -Tunneling No -Undermining/Tunneling Yes -Undermining/Tunneling Starts (O'clock 12 ) -Undermining/Tunneling Ends (O'clock) 12 -Maximum Distance (cm) 0.9 -Maximum Distance #2 (cm) 0.2 -Circular Undermining Yes Yes -Exudate Amt Small Medium -Exudate Type Serosanguineous Serosanguineous -Wound Margin Distinct, Thickened & Outline Rolled Under Attached -Granulation Amt Medium (34-66%) Medium (34-66%) -Granulation Quality [place] -Necrosis Amt Large (67-100%) Small (1-33%) -Necrotic Tissue Type Eschar Adherent Slough -Structure Exposed N/A N/A -Texture (Allison-wound Skin Appearance) Scarring Scarring -Moisture (Allison-wound Skin Appearance) Maceration Assessed -Color (Allison-wound Skin Appearance) Hemosiderin Assessed Staining -Temperature (Allison-wound Skin No Abnormality No Abnormality Appearance) (Pt Warm) (Pt Warm) -Tenderness on Palpation (Allison-wound No No Skin Appearance) -Ulcer Cleansing Wound Cleanser Wound Cleanser -Foul Odor after Cleansing No No -Anesthetic Used 4% Lidocaine 4% Lidocaine Solution Solution #3- R LAT FOOT -Combined with other wound No -Current Size (cm) - Length 3.4 3 -Current Size (cm) - Width 1.7 1.5 -Current Size (cm) - Depth 0.4 1 -Total Square Cm 5.78 4.5 -Photo Taken No -Tunneling No -Undermining/Tunneling Yes -Undermining/Tunneling Starts (O'clock 6 2 ) -Undermining/Tunneling Ends (O'clock) 12 5 -Maximum Distance (cm) 4.1 3 -Circular Undermining No -Exudate Amt Large Medium -Exudate Type Serosanguineous Serosanguineous -Wound Margin Thickened & Thickened & Rolled Under Rolled Under -Granulation Amt Medium (34-66%) Medium (34-66%) -Granulation Quality Red Pale -Slough/Fibrin Yes -Necrosis Amt Medium (34-66%) Large (67-100%) -Necrotic Tissue Type Adherent Slough Adherent Slough -Structure Exposed N/A N/A -Texture (Allison-wound Skin Appearance) Scarring Assessed -Moisture (Allison-wound Skin Appearance) Maceration Assessed -Color (Allison-wound Skin Appearance) Hemosiderin Assessed Staining -Temperature (Allison-wound Skin No Abnormality No Abnormality Appearance) (Pt Warm) (Pt Warm) -Tenderness on Palpation (Allison-wound No No Skin Appearance) -Ulcer Cleansing Wound Cleanser Wound Cleanser -Foul Odor after Cleansing No No -Anesthetic Used 4% Lidocaine 4% Lidocaine Solution Solution WC - Nurse 2 - General Ulcer CM Notes Start: 11/03/20 11:11 Freq: Status: Active Protocol: Activity Type Activity Date Activity User E-Sign Co-Sign Detail Recorded Client Recorded Date Recorded By Document 11/03/20 11:38 JF [id number] 11/03/20 11:45 JF Document 11/17/20 11:21 JF [id number] 11/17/20 11:27 JF 11/03/20 11/17/20 11:38 11:21 Wound Center Nurse 2 7-right yo -Time 11:41 -Correct Patient Yes No -Correct Side, Site, Position Yes No -Correct Procedure Yes No -Procedure Performed Yes No -Type of Procedure Debridement -Clinical Debridement Subcutaneous -Tissue Removed Subcutaneous -Post Debridement (cm) - Length 1 0 -Post Debridement (cm) - Width 0.5 0 -Post Debridement (cm) - Depth 0.1 0 -Total Square (Post) (cm) 0.5 0 -Area of Debridement (cm) - Length 1 0 -Area of Debridement (cm) - Width 0.5 0 -Total Square (Area) (cm) 0.5 0 -Tunneling No -Undermining/Tunneling No -Circular Undermining No -Wound/Ulcer Outcome Not Healed Healed- Epithelialized -Ulcer Cleansing Rinsed/ Irrigated with Saline -Foul Odor after Cleansing No -Bioengineered Tissue No -Bleeding Controlled with Pressure -Offloading No -Treatment Response Procedure Tolerated Well -Debridement - Subq, 1st 20sq cm No 6-right lateral lower foot -Time 11:38 11:23 -Correct Patient Yes Yes -Correct Side, Site, Position Yes Yes -Correct Procedure Yes Yes -Procedure Performed Yes Yes -Type of Procedure Debridement Debridement -Clinical Debridement Subcutaneous Subcutaneous -Tissue Removed Subcutaneous Subcutaneous -Post Debridement (cm) - Length 0.6 3.1 -Post Debridement (cm) - Width 0.6 1.5 -Post Debridement (cm) - Depth 0.8 1 -Total Square (Post) (cm) 0.36 4.65 -Area of Debridement (cm) - Length 0.6 3.1 -Area of Debridement (cm) - Width 0.6 1.5 -Total Square (Area) (cm) 0.36 4.65 -Tunneling No No -Undermining/Tunneling No No -Circular Undermining No No -Wound/Ulcer Outcome Not Healed -Ulcer Cleansing Rinsed/ Rinsed/ Irrigated with Irrigated with Saline Saline -Foul Odor after Cleansing No No -Bioengineered Tissue No No -Bleeding Controlled with Pressure -Offloading Yes No -Type of Offloading Surgical Shoe -Treatment Response Procedure Procedure Tolerated Well Tolerated Well -Debridement - Subq, 1st 20sq cm Yes Yes #3- R LAT FOOT -Time 11:39 11:24 -Correct Patient Yes Yes -Correct Side, Site, Position Yes Yes -Correct Procedure Yes Yes -Procedure Performed Yes Yes -Type of Procedure Debridement Debridement -Clinical Debridement Subcutaneous Subcutaneous -Tissue Removed Subcutaneous Subcutaneous -Post Debridement (cm) - Length 3.5 0.8 -Post Debridement (cm) - Width 1.8 0.5 -Post Debridement (cm) - Depth 0.4 0.7 -Total Square (Post) (cm) 6.30 0.40 -Area of Debridement (cm) - Length 3.5 0.8 -Area of Debridement (cm) - Width 1.8 0.5 -Total Square (Area) (cm) 6.30 0.40 -Tunneling No No -Undermining/Tunneling No No -Circular Undermining No No -Wound/Ulcer Outcome Not Healed Not Healed -Ulcer Cleansing Rinsed/ Rinsed/ Irrigated with Irrigated with Saline Saline -Foul Odor after Cleansing No No -Bioengineered Tissue No No -Bleeding Controlled with Pressure Pressure -Offloading No -Type of Offloading Surgical Shoe -Treatment Response Procedure Procedure Tolerated Well Tolerated Well -Debridement - Subq, 1st 20sq cm No No Pain Scale: 0-10 Numeric Is Patient Pain Free? Yes Yes WC - Nurse 3 - General Ulcer D/C NN Start: 11/03/20 11:11 Freq: Status: Active Protocol: Activity Type Activity Date Activity User E-Sign Co-Sign Detail Recorded Client Recorded Date Recorded By Document 11/03/20 11:56 DL [id number] 11/03/20 11:58 DL Document 11/17/20 11:48 RB Desktop 11/17/20 11:50 RB 11/03/20 11/17/20 11:56 11:48 Wound Care Nurse 3 7-right yo -Ulcer Cleansing Rinsed/ Irrigated with Saline -Foul Odor after Cleansing No -Primary Dressing Applied Aquacel Extra, NonAdherent Contact Layer -Primary Dressing Covered/Secured with Dry Gauze, Secured with Tape -Aquacel Extra 1 6-right lateral lower foot -Ulcer Cleansing Wound Cleanser -Foul Odor after Cleansing No -Other Dressing Betadine betadine gauze -Primary Dressing Covered/Secured with Dry Gauze & Dry Gauze,Dry Roll Gauze, Gauze & Roll Secured with Gauze,Secured Tape with Tape #3- R LAT FOOT -Ulcer Cleansing Wound Cleanser -Foul Odor after Cleansing No -Other Dressing betadine betadine gauze -Primary Dressing Covered/Secured with Dry Gauze & Dry Gauze,Dry Roll Gauze, Gauze & Roll Secured with Gauze,Secured Tape with Tape Right -Other single layer tubigrip Treatment Response Procedure Procedure Tolerated Well Tolerated Well Pain Scale: 0-10 Numeric Is Patient Pain Free? Yes Yes WC - Visit Discharge Discharge Condition Stable Stable Ambulatory Status Wheelchair Wheelchair Transportation Private Auto Private Auto Medication Reconcilliation completed & No provided to patient/care provider Clinical Summary of Care Provided Yes Wound debrided: left lateral foot ulcer Wound Grade/Stage: 3 Type of Debridement: Excisional debridement Anesthesia Used: 4% Lidocaine Solution Depth: in the subcutaneous layer Percentage of wound debrided: 100 Instrument Used: #15 blade Tissue Removed: fibrous, devitalized subcutaneous, biofilm, slough Severity: Fat Layer Exposed Amount of bleeding with debridement: Mild Bleeding Controlled with: Pressure Patient tolerated procedure: Patient tolerated procedure well Assessment/Plan Assessment/Plan (1) Ulcer of right foot with fat layer exposed: CODE(S): Code(s): L97.512 - Non-pressure chronic ulcer of other part of right foot with fat layer exposed (2) Ulcer of right foot with muscle involvement without evidence of necrosis: CODE(S): Code(s): L97.515 - Non-pressure chronic ulcer of other part of right foot with muscle involvement without evidence of necrosis (3) Peripheral vascular disease: CODE(S): Code(s): I73.9 - Peripheral vascular disease, unspecified (4) Malnutrition: CODE(S): Code(s): E46 - Unspecified protein-calorie malnutrition (5) Amputation of right foot: CODE(S): Code(s): S98.911A - Complete traumatic amputation of right foot, level unspecified, initial encounter (6) Type 2 diabetes mellitus with diabetic polyneuropathy: CODE(S): Code(s): E11.42 - Type 2 diabetes mellitus with diabetic polyneuropathy (7) Delayed wound healing: CODE(S): Code(s): T14.8XXD - Other injury of unspecified body region, subsequent encounter (8) Ulcer of right lower extremity with fat layer exposed: CODE(S): Code(s): L97.912 - Non-pressure chronic ulcer of unspecified part of right lower leg with fat layer exposed PLAN: Assessment:?s/p revisional fourth and fifth ray resections with acute osteomyelitis (DOS 08/15/20, Dr. Shah) -dehisced with continued tendon exposure, no clinical signs of infection noted today.? proximal lateral left foot ulcer with fat layer exposed, no local signs of infection today.? anterior leg ulcer with fat layer exposed, stable without infection.? edema right lower extremity.? Xerosis lower extremities.? Peripheral vascular disease.? Coronary artery disease? (EF ~ 19 %).? Diabetes with insulin dependency.? Polyneuropathy.? malnutrition suspected.? Chronic kidney disease on hemodialysis.? Cardiac disease with pacemaker Plan:?I reviewed and discussed his case.? Debridement was performed as noted in the clinical panel.? His right surgical site is stable however healing potential remains guarded given vascular status.? We discussed that is not likely his surgical site or ulcer on his right foot will heal within the next month. We discussed amputation as an option as well. ? He had his pacemaker exchanged without incident.? The benefits of amputation include completely removing the nidus of infection, likely increased ambulation ability if healing occurs.? Risks and consequences of the amputation include further increased cardiac load, continued possibility of nonhealing or infection statuses.? He elects to proceed forward with more of a palliative type care program at this time and understands the goals of this treatment plan are to maintain or resolve infection in addition to disrupting his remaining daily life as little as possible.? Risks of proceeding with wound care alone on a palliative basis include lack of resolution of infection.? It is noted his right leg ulcer is healed and he can discontinue dressing care at this site. Therefore, he was advised to change dressing daily with Betadine wet to dry dressing.? His vascular status has been optimized with a recent drug coated balloon angioplasty of the femoral artery with Dr. Busch.? To continue on Plavix and aspirin.? He was previously treated with a 6-week course of IV vancomycin with end date of 09-26-20.? His labs were reviewed with recent hemoglobin A1c of 6.8%.? Other labs from 09-10-20 were reviewed with white blood cell count of 7.0, ESR 11, C- reactive protein 197, creatinine 1.17.? An additional course of oral doxycycline also be considered.? Infectious disease physician has been on consult previously. Serial updated labs have been reviewed.? His pathology bone fragments that were debrided in surgery demonstrate acute osteomyelitis.? He was also reassured that there are no local signs of infection or purulence today.? To continue offloading with pillow boot while resting in bed and also CAM walker with limited heel touch during short household periods of ambulation. To use assistive device.?? To continue to improve glucose management.? I recommend segundo or glucerna as a nutritional supplement.? It is also noted he is on prednisone and this may be contributing to some of his delayed healing.? His lower extremity edema is addressed today with bilateral Jem wrap application and an additional tubigrip (single layer). He was advised to perform intermittent elevation and lower extremity muscular contraction hourly.? To return to clinic in 2-3 weeks as a palliative care plan or sooner if concerns. I answered all of his questions.? [employer] speech recognition certified professional ergonomist software was used to create portions of this document. Sound-alike and misspelled words, as well as other certified professional ergonomist errors may be contained in the documentation.
== END 2020-11-29 23:59 ==
LOC: WC 10:45
PROVIDERS: PCP Family Medicine; Referring Provider Family Medicine; Visit Provider Podiatrist
DX: E11.621 Type 2 diabetes mellitus with foot ulcer (principal); E11.51 Type 2 diabetes mellitus with diabetic peripheral angiopathy without gangrene; L97.812 Non-pressure chronic ulcer of other part of right lower leg with fat layer exposed; E11.622 Type 2 diabetes mellitus with other skin ulcer; L97.512 Non-pressure chronic ulcer of other part of right foot with fat layer exposed; E11.22 Type 2 diabetes mellitus with diabetic chronic kidney disease; E11.42 Type 2 diabetes mellitus with diabetic polyneuropathy; R60.0 Localized edema; N18.9 Chronic kidney disease, unspecified; Z79.02 Long term (current) use of antithrombotics/antiplatelets; Z89.512 Acquired absence of left leg below knee; Z89.431 Acquired absence of right foot; Z86.14 Personal history of Methicillin resistant Staphylococcus aureus infection
CPT/HCPCS: 11042

== ENCOUNTER 2020-12-08 16:23 | Emergency (ER) | payer MEDICARE, OTHER, SELFPAY ==
[2020-12-08 15:41] VITALS: BMI 28.1
[2020-12-08 16:24] VITALS: BP 126/66; PULSE 113; RESP 16; TEMP 36.8; O2SAT 96; BMI 24.8
--- NOTE | 2020-12-08 16:35 | EKG12_ITS ---
Test Reason : VOMITING Blood Pressure : / mmHG Vent. Rate : 109 BPM Atrial Rate : 109 BPM P-R Int : 160 ms QRS Dur : 154 ms QT Int : 388 ms P-R-T Axes : 000 225 029 degrees QTc Int : 522 ms Atrial-sensed ventricular-paced rhythm Biventricular pacemaker detected Abnormal ECG Confirmed by TERRANCE ELLSWORTH, PRIMITIVO ([id number]), director of infection control LEA ALDANA ([id number]) on 12/10/2020 8:39:16 AM Referred By: LARISSA Confirmed By:PRIMITIVO CARLOS MD
--- NOTE | 2020-12-08 16:37 | EX.ED.GENINJ ---
HPI History of Present Illness Chief Complaint: Nausea/Vomiting Narrative Narrative: Patient presents with nausea and vomiting for the past few days. There is some slight epigastric pain. He was at wound center today had his wound wrapped, he apparently is scheduled to get an amputation and he was getting some preop work-up and mentioned that he has been vomiting and was sent to the ED for hydration. He has no back pain or radiation to his back. He has no lower abdominal pain. He has had this in the past a few times. This is similar to prior gastritis. No fever or chills. No chest pain or shortness of breath. [facility] Medical History (Updated 12/08/20 @ 19:[address] 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 Other specified peripheral vascular diseases Peripheral vascular disease Peripheral vascular disease due to secondary diabetes Pseudomonas aeruginosa infection SOB (shortness of breath) Status post below-knee amputation of left lower 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 Tachycardia Thyroid disease 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 Wears hearing aid in both ears Home Medications acetaminophen 500 mg tablet 1,000 mg PO 4X/DAY tab 08/05/19 [History Last Taken 08/13/20] levothyroxine 200 mcg tablet 200 mcg PO DAILY 08/05/19 [History Last Taken 08/13/20] omeprazole 40 mg capsule,delayed release 40 mg PO DAILY 08/05/19 [History Last Taken 08/13/20] prednisone 2.5 mg tablet 2.5 mg PO DAILY 08/05/19 [History Last Taken 08/13/20] aspirin 81 mg tablet,delayed release 81 mg PO DAILY 12/17/19 [History Last Taken 08/13/20] insulin glargine 10 unit SQ BID 06/09/20 [History Last Taken 08/13/20] insulin regular human See Protocol SC QHS 06/09/20 [History Last Taken 08/13/20] insulin regular human 10 units SC BREAKFAST 06/11/20 [History Last Taken 08/13/20] insulin regular human 20 units SC DINNER 06/11/20 [History Last Taken Unknown] clopidogrel 75 mg PO DAILY 08/06/20 [History Last Taken 08/13/20] pravastatin 40 mg PO QHS 08/06/20 [History Last Taken 08/13/20] dextrose 1 dose PO PRN PRN 09/01/20 [History Last Taken Unknown] ipratropium bromide 1 spray NASAL DAILY 09/10/20 [History Last Taken Unknown] ammonium lactate 227 gm TP DAILY #120 gm 09/15/20 [Rx Last Taken Unknown] metoprolol succinate 50 mg tablet,extended release 24 hr 50 mg PO DAILY #180 tablet 09/27/20 [Rx Last Taken Unknown] lisinopril 2.5 mg tablet 2.5 mg PO DAILY #90 tablet 09/28/20 [Rx Last Taken Unknown] furosemide 40 mg tablet 40 mg PO DAILY tablet 10/25/20 [History Last Taken Unknown] magnesium chloride 64 mg (magnesium chloride) tablet,delayed release 128 mg PO DAILY tablet 10/25/20 [History Last Taken Unknown] metolazone 5 mg tablet 5 mg PO DAILY tablet 10/25/20 [History Last Taken Unknown] oxycodone-acetaminophen 5 mg-325 mg tablet 1 tablet PO ONCE PRN tablet 10/25/20 [History Last Taken Unknown] tizanidine 4 mg tablet 4 mg PO Q8H tablet 10/25/20 [History Last Taken Unknown] doxycycline hyclate 100 mg PO BID #21 cap 12/01/20 [Rx Last Taken Unknown] ondansetron HCl [Zofran] 4 mg PO Q8H #7 tab 12/08/20 [Rx Last Taken Unknown] Allergy/AdvReac Type Severity Reaction Status Date / Time amiodarone Allergy Severe pulmonary Verified 12/08/20 16:25 fibrosis sotalol Allergy Severe intolerant Verified 12/08/20 16:25 levofloxacin [From Levaquin] Allergy Pain in Verified 12/08/20 16:25 joints gabapentin AdvReac Diarrhea Verified 12/08/20 16:25 latex AdvReac Rash Verified 12/08/20 16:25 Family History Sister Diabetes Mother Heart disease Valve replacement Father Diabetes Surgical History History of amputation of toe History of bilateral cataract extraction History of cholecystectomy History of coronary artery bypass graft (~2003) History of coronary artery stent placement (~03/2019) History of endoscopy History of left below knee amputation (~2014) Presence of permanent cardiac pacemaker (~08/2020) Social History Smoking Status: Former smoker quit date: 07/02/98 pack-years: 34 alcohol intake: current alcohol intake frequency: holidays/special occasions only substance use type: does not use caffeine: Yes Type: coffee Number of servings: 2 ROS ROS ED ROS Narrative Past medical history: Reviewed, it is extensive, includes history of diabetic wound status post amputation of the left lower extremity, he is scheduled for amputation of the right lower extremity, diabetes, valve disease, hypertension, hypercholesterolemia, peripheral vascular disease Medications: Reviewed in the computer system and at bedside Social history: Noncontributory Review of systems: All systems negative except as indicated General: No fever Eyes: No visual changes ENT: No upper airway congestion, normal voice Neck: No neck pain Cardiovascular: No chest pain Respiratory: No shortness of breath or cough Gastrointestinal: Epigastric pain and nausea and vomiting. No diarrhea or constipation. Genitourinary: No dysuria Musculoskeletal: Left lower below the knee amputation, the right lower extremity is freshly wrapped from an hour ago at the wound center I did not unwrap this. Skin: No rash Neurological: No memory loss, confusion or any focal weakness Psych: No recent behavioral changes Hematologic: No easy bleeding or easy bruising EXAM Physical Exam Narrative Exam Narrative: Physical exam General: Patient appears chronically ill, he does appear uncomfortable Head: Normocephalic, Atraumatic Eyes: Conjunctiva not pale ENT: Slightly dry mucous membranes Neck: Supple, Nontender, No lymphadenopathy Cardiovascular: Slightly irregular, holosystolic 3 out of 6 murmur Respiratory: No distress, speaks in full sentences but has coarse bilateral breath sounds and some scant end expiratory wheezing Abdomen: Soft, mild epigastric tenderness no right upper quadrant pain no lower abdominal pain no guarding or rebound. The abdomen is quite benign. Back: Nontender, Normal Inspection. Negative for: CVA tenderness Extremities: Left lower below the knee amputation, he right lower extremity is freshly wrapped from an hour ago at the wound center I did not unwrap this. Skin: Normal color, No rash Neurological: Alert, Normal Strength, Normal Sensation Psychological: Normal affect Const Vital Signs: 12/08/20 16:24 Temperature 98.2 F Temperature Source Temporal Pulse Rate 113 H Respiratory Rate 16 Blood Pressure 126/66 H Blood Pressure Mean 86 Pulse Ox 96 Oxygen Delivery Method Room Air MDM MDM MDM Narrative Medical decision making narrative: X-ray was done which showed a possible pneumonia and a possible nodule because of this I ordered a CT which does not show any of the above just chronic changes, the CT read did take quite a bit of time to get back and thus the patient's care was somewhat delayed but the patient did get IV fluids antiemetics he felt better and will be discharged home with antiemetics. Lab Data Labs: Laboratory Results - last 24 hr 12/08/20 12/08/20 16:49 16:49 WBC 6.1 RBC 3.06 L Hgb 9.7 L Hct 30.3 L MCV 99.0 H MCH 31.7 MCHC 32.0 RDW Std Deviation 52.0 H RDW Coeff of Jac 14.6 Plt Count 174 MPV 8.7 Immature Gran % (Auto) 0.300 Neut % (Auto) 85.8 H Lymph % (Auto) 5.7 L Cobb % (Auto) 7.5 Eos % (Auto) 0.0 Baso % (Auto) 0.7 Absolute Neuts (auto) 5.3 Absolute Lymphs (auto) 0.35 L Nucleated RBC % 0 Differential Comment Platelet Estimate ADEQUATE RBC Morphology N CHROM Anisocytosis 1+ Sodium 135 L Potassium 4.0 Chloride 99 Carbon Dioxide 25.0 Anion Gap 11 BUN 22 H Creatinine 1.11 Estim Creat Clear Calc 62.18 Est GFR (MDRD) Af Amer 83 Est GFR (MDRD) Non-Af 69 BUN/Creatinine Ratio 19.8 Glucose 288 H Calcium 8.8 Total Bilirubin 1.50 H AST 20 ALT 13 L Alkaline Phosphatase 131 H Total Protein 7.3 Albumin 3.3 Globulin 4.0 Albumin/Globulin Ratio 0.8 L Lipase 16 L Radiography Diagnostic Testing: Radiology Impression Chest X-Ray 12/08/20 17:25 IMPRESSION: Indeterminate 1.2 cm nodular opacity within the right lower lung, may be secondary to underlying atelectasis and/or pneumonia however cannot exclude a pulmonary nodule, consider chest CT for further evaluation. Patchy opacity within the right lower lung concerning for underlying atelectasis and/or pneumonia. Blunting of the right costophrenic angle may be secondary to underlying pleural thickening and/or effusion. Cardiomegaly. Electronically Signed: Catarina Orr MD at 18:05 EDT Tel , Service support , Chest CT 12/08/20 18:10 IMPRESSION: Stable atelectasis and/or scarring within the right middle lobe and lung bases. Calcified pleural plaques may be secondary to a history of asbestos exposure. Atherosclerosis. Cardiomegaly. Ascites. Electronically Signed: Catarina Orr MD at 19:39 EDT Tel , Service support , Discharge Plan Triage Chief Complaint: Nausea/Vomiting ED Provider: Jorje Hopkins Dx/Rx/DC Orders Clinical Impression: Nausea & vomiting Instructions: ED Vomiting (Adult) Prescriptions: New ondansetron HCl [Zofran] 4 mg tablet 4 mg PO Q8H Qty: 7 RF: 0 No Action acetaminophen 500 mg tablet 1,000 mg PO 4X/DAY RF: 0 prednisone 2.5 mg tablet 2.5 mg PO DAILY RF: 0 omeprazole 40 mg capsule,delayed release(DR/EC) 40 mg PO DAILY RF: 0 levothyroxine 200 mcg tablet 200 mcg PO DAILY RF: 0 aspirin [Adult Aspirin Regimen] 81 mg tablet,delayed release (DR/EC) 81 mg PO DAILY RF: 0 tizanidine 4 mg tablet 4 mg PO Q8H RF: 0 metolazone 5 mg tablet 5 mg PO DAILY RF: 0 magnesium chloride 64 mg tablet,delayed release (DR/EC) 128 mg PO DAILY RF: 0 furosemide 40 mg tablet 40 mg PO DAILY RF: 0 oxycodone-acetaminophen 5-325 mg tablet 1 tablet PO ONCE PRNRF: 0 insulin glargine 100 UNIT/ML solution 10 unit SQ BID RF: 0 insulin regular human 100 UNIT/ML solution See Protocol unit SC QHS RF: 0 insulin regular human 100 UNIT/ML solution 10 units SC BREAKFAST RF: 0 insulin regular human 100 UNIT/ML solution 20 units SC DINNER RF: 0 pravastatin 40 MG tablet 40 mg PO QHS RF: 0 clopidogrel 75 MG tablet 75 mg PO DAILY RF: 0 ammonium lactate 396 GM lotion 227 gm TP DAILY Qty: 120 RF: 0 dextrose 38 GM gel 1 dose PO PRN PRN (Reason: Hypoglycemia) RF: 0 ipratropium bromide 1 SPRAY spray,non-aerosol 1 spray NASAL DAILY RF: 0 doxycycline hyclate 100 mg capsule 100 mg PO BID Qty: 21 RF: 0 metoprolol succinate 50 mg tablet extended release 24 hr 50 mg PO DAILY Qty: 180 RF: 3 lisinopril 2.5 mg tablet 2.5 mg PO DAILY Qty: 90 RF: 4 Primary Care Provider: Jcarlos Glasgow Referrals: Jcarlos Glasgow MD [Primary Care Provider] - Disposition Disposition: Home, self care
[2020-12-08 16:55] LABS: Absolute Lymphocyte Count 0.35 X10^3/uL (0.83-4.51); Absolute Neutrophil Count 5.3 X10^3/uL (2.0-7.7); Basophil# 0.04 X10^3/uL; Basophil% 0.7 % (0-1); Hematocrit 30.3 % (40-54); Hemoglobin 9.7 g/dL (13.0-16.5); Lymphocyte # 0.35 X10^3/ul (0.83-4.51); Lymphocyte % 5.7 % (19-41); Mean Corpuscular Hgb 31.7 pg (27.0-32.0); Mean Platelet Vol. 8.7 fl (6.2-12.0); Monocyte# 0.46 X10^3/uL; Monocyte% 7.5 % (0-10); NRBC Flagged by Analyzer 0 % (0-5); Neutrophil # 5.25 X10^3/uL (2.7-7.7); Neutrophil % 85.8 % (47-70); POSITIVE DIFFERENTIAL YES; Platelet Count 174 K/mm3 (150-450); RBC Distribution Width CV 14.6 % (11.6-14.6); Red Blood Count 3.06 M/mm3 (4.6-6.2); White Blood Count 6.1 K/mm3 (4.4-11.0)
[2020-12-08] MEDS: Ondansetron 4 MG/2 ML Vial IV (16:57)
[2020-12-08] MEDS: 0.9% Normal Saline 1,000 ML 1000 ML IV (16:57)
[2020-12-08 16:58] LABS: Differential Indicated SCAN CRITERIA MET
[2020-12-08] MEDS: Famotidine 200 MG/20 ML MDV 20 MG in 0.9% Normal Saline (Pres. free 8 ML 300 MG IV (17:04)
[2020-12-08 17:22] LABS: Anisocytosis 1+; Platelet Estimate ADEQUATE (ADEQ); Red Cell Morphology N CHROM NORMAL (NORM C&C)
--- NOTE | 2020-12-08 17:25 | RAD_ITS ---
STUDY: X-RAY CHEST REASON FOR EXAM: Male, 75 years old. Nausea TECHNIQUE: Single frontal view of the chest. COMPARISON: 09/04/2020 FINDINGS: There is elevation of the right hemidiaphragm. There is a right basilar patchy opacity. There is a 1.2 cm right basilar nodular opacity. There are right basilar calcified pleural plaques. There is blunting of the right costophrenic angle. Sternal cerclage wires are present from a prior sternotomy. There is cardiomegaly. There is a cardiac pacer device in place. Normal mediastinum and sandra. Normal visualized pulmonary arteries. Normal visualized aortic arch and descending thoracic aorta. Normal visualized thoracic spine. Normal visualized ribs, clavicles, and shoulders. There is no demonstrated abnormality of the visualized soft tissue structures of the upper abdomen. RAD/Chest 1 View (Portable) IMPRESSION: Indeterminate 1.2 cm nodular opacity within the right lower lung, may be secondary to underlying atelectasis and/or pneumonia however cannot exclude a pulmonary nodule, consider chest CT for further evaluation. Patchy opacity within the right lower lung concerning for underlying atelectasis and/or pneumonia. Blunting of the right costophrenic angle may be secondary to underlying pleural thickening and/or effusion. Cardiomegaly. Electronically Signed: Catarina Orr MD at 18:05 EDT Tel , Service support ,
[2020-12-08 17:26] LABS: ALB/GLOB Ratio 0.8 RATIO (0.9-2.4); AST(SGOT) 20 U/L (15-37); Alanine Aminotransfer ALT/SGPT 13 U/L (16-61); Albumin, Serum 3.3 g/dL (3.2-5.0); Alkaline Phosphatase 131 U/L (45-117); Anion Gap 11 (5-15); BUN 22 mg/dL (7-18); BUN/Creat Ratio 19.8 RATIO (10-20); Calcium,Total 8.8 mg/dL (8.5-10.1); Chloride 99 mmol/L (98-107); Creatinine, Serum 1.11 mg/dL (0.70-1.30); EST Glomerular Filtration Rate 69 mL/min (>60); Est Glom Filt Rate - Afr Amer 83 mL/min (>60); Estimated Creatinine Clearance 62.18 ml/min; Glucose 288 mg/dL (74-106); Lipase 16 U/L (73-393); Protein, Total 7.3 g/dL (6.4-8.2); Sodium Level 135 mmol/L (136-145)
--- NOTE | 2020-12-08 18:10 | CT_ITS ---
STUDY: CT CHEST WITHOUT CONTRAST REASON FOR EXAM: Male, 75 years old. Lung mass seen on cxr RADIATION DOSAGE (If Supplied By Facility): CTDIvol = ( 17.69 ) mGy, DLP = ( 720.75 ) mGycm TECHNIQUE: Transaxial imaging was performed without the administration of intravenous contrast material. Multiplanar coronal and sagittal images were reformatted. Individualized dose optimization techniques were used for this CT. COMPARISON: 06/14/2020 FINDINGS: There are bilateral emphysematous changes. There is grossly stable atelectasis and/or scarring within the right middle lobe. There is additional grossly stable bibasilar atelectasis and/or scarring. There is minimal bilateral pleural thickening. There are bilateral calcified pleural plaques. There are calcifications of the coronary arteries. There is cardiomegaly. Sternal cerclage wires are present from a prior sternotomy. There is a cardiac pacer device in place. Normal mediastinum. Normal hilar regions. Normal unenhanced pulmonary arteries. There is atherosclerotic calcification of the aortic arch and descending thoracic aorta. There are multi-level degenerative changes of the thoracic spine. The limited images of the upper abdomen demonstrate ascites. There are peripheral calcifications of the abdominal aorta. CT/Chest without Contrast IMPRESSION: Stable atelectasis and/or scarring within the right middle lobe and lung bases. Calcified pleural plaques may be secondary to a history of asbestos exposure. Atherosclerosis. Cardiomegaly. Ascites. Electronically Signed: Catarina Orr MD at 19:39 EDT Tel , Service support ,
[2020-12-08 20:02] VITALS: BP 116/66; PULSE 87; RESP 16; O2SAT 95
== END 2020-12-08 20:05 | disposition home or self-care (01) ==
PROVIDERS: Emergency Provider Emergency Medicine; PCP Family Medicine
DX: R11.2 Nausea with vomiting, unspecified (principal); I25.10 Atherosclerotic heart disease of native coronary artery without angina pectoris; E11.621 Type 2 diabetes mellitus with foot ulcer; L97.512 Non-pressure chronic ulcer of other part of right foot with fat layer exposed; L03.115 Cellulitis of right lower limb; E11.51 Type 2 diabetes mellitus with diabetic peripheral angiopathy without gangrene; B96.5 Pseudomonas (aeruginosa) (mallei) (pseudomallei) as the cause of diseases classified elsewhere; M86.171 Other acute osteomyelitis, right ankle and foot; B95.62 Methicillin resistant Staphylococcus aureus infection as the cause of diseases classified elsewhere; J44.9 Chronic obstructive pulmonary disease, unspecified; I25.5 Ischemic cardiomyopathy; G47.33 Obstructive sleep apnea (adult) (pediatric); Z95.810 Presence of automatic (implantable) cardiac defibrillator; Z79.899 Other long term (current) drug therapy; Z79.52 Long term (current) use of systemic steroids; Z79.4 Long term (current) use of insulin; Z79.02 Long term (current) use of antithrombotics/antiplatelets; Z95.1 Presence of aortocoronary bypass graft; Z87.891 Personal history of nicotine dependence
CPT/HCPCS: 71045; 71250; 80053; 83690; 85025; 93005; 96374; 99213; 99284; J7030; A4216; G0463; J2405; J3490

== ENCOUNTER 2020-12-29 13:30 | Outpatient (RCR) | payer MEDICARE, OTHER, SELFPAY ==
[2020-11-30 00:24] VITALS: BP 94/46; PULSE 75; RESP 18; TEMP 36.2
[2020-12-01 10:04] VITALS: BP 107/43; PULSE 81; RESP 18; TEMP 36.2; BMI 28.1
--- NOTE | 2020-12-01 11:25 | PCM.WC.PN ---
History of Present Illness Date of Service: 12/01/20 Chief Complaint: Follow-up right lateral diabetic foot ulcer now revisional metatarsal resection (4 and 5) and right leg ulcer new redness History of Wound: 74-year-old male with a left below knee amputation (prior healed wound) and right transmetatarsal amputation follows up for ulcer of lateral foot. right foot: He underwent revisional 4th and 5th metatarsal resections with Dr. Shah on 08/15/2020. He denies fever, chills, nausea, vomiting. He had MRSA growth and he completed a 6-week course of IV antibiotics with end date of . He was under the management of infectious disease physician previously. He reports increased drainage, redness, and pain with an onset of Sunday. The patient and his report they know that they are able to call the office over the weekend or go to the emergency room for evaluation but they decided not to. He denies trauma. He reports he is ready to proceed forward with a below the knee amputation due to recurrence and ongoing infections. Left leg: He denies drainage or ulcer formation. He has chronic pain intermittently and would like a pain management referral. Progress of Wound: Right worse status Objective Data Objective Data Vital Signs: Vital Signs Temp Pulse Resp BP 97.2 F L 81 18 107/43 L 12/01/20 10:04 12/01/20 10:04 12/01/20 10:04 12/01/20 10:04 Oxygen Delivery Method Room Air Weight: 88.451 kg Body Mass Index (BMI) 28.1 Lab / Micro Data Result Diagrams: 12/01/20 11:24 12/01/20 11:24 Physical Exam Const alert and oriented x3 General Appearance: cooperative HEENT normocephalic Extremity Extremity Narrative: No calf tenderness Diminished pulses Muscle wasting noted Left below-knee amputation Right transmetatarsal amputation Compartments remain soft to palpate bilateral. General Extremity: edema and no tenderness to palpation of joints or extremities; Negative for cyanosis Skin Skin Narrative: Left: No skin discontinuity or infection. Skin is atrophic and hairless Right: No streaking, no odor. There is erythema adjacent to the ulcer site with a new skin discontinuity centrally located that is in communication with the distal and proximal ulcers. There is seropurulent drainage and continued devitalized subcutaneous and tendon exposure. No eschar. Skin is atrophic and hairless General Skin Exam: Negative for erythema Neuro Neuro Narrative: lack of normal epicritic sensation via light touch is consistent with neuropathy status Psych cooperative and affect normal Debridement Note Debridement Note Post-Debridement Measurements and Additional Note: Post-Debridement Measurements/Treatment - Nurse 1 - General Ulcer Assessment Start: 12/01/20 10:04 Freq: Status: Active Protocol: EMILYEXLyle Activity Type Activity Date Activity User E-Sign Co-Sign Detail Recorded Client Recorded Date Recorded By Document 12/01/20 10:04 [facility] [id number] 12/01/20 10:14 [facility] 12/01/20 10:04 - Today's Visit Information Type of service Follow-up Visit (Physician/[facility] ) Arrival Mode Wheelchair Transfer Assistance None Accompanied by Patient Identification Verified (Name & Yes ) Patient Requires Transmission-Based No Precautions Height and Weight Body Mass Index (BMI) 28.1 BMI Classification Overweight Vital Signs Temperature (97.8 F-99.1 F) 97.2 F L Temperature Source Temporal Pulse Rate (60-100) 81 Pulse Location Monitor Respiratory Rate (12-18) 18 Respiratory rate source Observation Oxygen Delivery Method Room Air Blood Pressure (90/60-120/80) 107/43 L Blood Pressure Mean (mm Hg) 64 Source Monitor Position Sitting Blood Pressure Location Left Arm History Since Last Visit- (Skip if this is Patient's initial visit) Have you changed medications since your No last visit? Any new allergies or adverse reactions No Had a fall/change in ADL's that may No increase risk of falls Signs or symptoms of abuse and/or No neglect since last visit Have you been in the hospital since your No last visit? Has dressing in place as prescribed Yes Has compression in place as prescribed No Has offloadiing in place as prescribed Yes Experienced any changes in pain level or No management Left Footwear Other Footwear (Comment) Right Footwear Removable Cast Walker/Walking Boot Other Footwear left prosthesis Pain Scale: 0-10 Numeric Is Patient Pain Free? Yes [facility] Nurse 1 - General Ulcer Measurement Start: 12/01/20 10:04 Freq: Status: Active Protocol: Activity Type Activity Date Activity User E-Sign Co-Sign Detail Recorded Client Recorded Date Recorded By Document 12/01/20 10:04 [facility] [id number] 12/01/20 10:14 [facility] 12/01/20 10:04 Wound Center Nurse 1 6-right lateral lower foot -Combined with other wound No -Current Size (cm) - Length 0.6 -Current Size (cm) - Width 1.2 -Current Size (cm) - Depth 0.6 -Total Square Cm 0.72 -Photo Taken No -Epithelialization None Present -Tunneling No -Undermining/Tunneling Yes -Undermining/Tunneling Starts (O'clock 5 ) -Undermining/Tunneling Ends (O'clock) 10 -Maximum Distance (cm) 0.5 -Circular Undermining No -Exudate Amt Medium -Exudate Type Serosanguineous -Wound Margin Distinct, Outline Attached -Granulation Amt Medium (34-66%) -Granulation Quality Red -Slough/Fibrin Yes -Necrosis Amt Small (1-33%) -Necrotic Tissue Type Adherent Slough -Texture (Allison-wound Skin Appearance) Assessed, Scarring -Moisture (Allison-wound Skin Appearance) Assessed, Maceration -Color (Allison-wound Skin Appearance) Assessed,Palor -Temperature (Allison-wound Skin No Abnormality Appearance) (Pt Warm) -Tenderness on Palpation (Allison-wound Yes Skin Appearance) -Ulcer Cleansing soapy water -Foul Odor after Cleansing No -Anesthetic Used 5% Lidocaine Gel #3- R LAT FOOT -Combined with other wound No -Current Size (cm) - Length 1.7 -Current Size (cm) - Width 4.2 -Current Size (cm) - Depth 1 -Total Square Cm 7.14 -Epithelialization None Present -Tunneling No -Undermining/Tunneling Yes -Undermining/Tunneling Starts (O'clock 6 ) -Undermining/Tunneling Ends (O'clock) 1 -Maximum Distance (cm) 3.4 -Exudate Amt Large -Exudate Type Serosanguineous -Wound Margin Thickened -Granulation Amt Large (67-100%) -Granulation Quality Red -Slough/Fibrin Yes -Necrosis Amt Small (1-33%) -Necrotic Tissue Type Adherent Slough -Texture (Allison-wound Skin Appearance) Assessed, Scarring -Moisture (Allison-wound Skin Appearance) Assessed, Maceration -Color (Allison-wound Skin Appearance) Assessed,Palor -Temperature (Allison-wound Skin No Abnormality Appearance) (Pt Warm) -Tenderness on Palpation (Allison-wound Yes Skin Appearance) -Ulcer Cleansing soapy water -Anesthetic Used 5% Lidocaine Gel Lower Limb Edema Present Yes Right Calf (cm) 40 Right Ankle (cm) 24.5 WC - Nurse 2 - General Ulcer CM Notes Start: 12/01/20 10:04 Freq: Status: Active Protocol: Activity Type Activity Date Activity User E-Sign Co-Sign Detail Recorded Client Recorded Date Recorded By Document 12/01/20 10:24 [facility] [id number] 12/01/20 10:38 [facility] 12/01/20 10:24 Wound Center Nurse 2 6-right lateral lower foot -Time 10:36 -Correct Patient Yes -Correct Side, Site, Position Yes -Correct Procedure Yes -Procedure Performed Yes -Type of Procedure Debridement -Clinical Debridement Subcutaneous -Tissue Removed Subcutaneous -Post Debridement (cm) - Length 0.8 -Post Debridement (cm) - Width 1.2 -Post Debridement (cm) - Depth 0.6 -Total Square (Post) (cm) 0.96 -Area of Debridement (cm) - Length 0.8 -Area of Debridement (cm) - Width 1.2 -Total Square (Area) (cm) 0.96 -Tunneling No -Undermining/Tunneling No -Circular Undermining No -Wound/Ulcer Outcome Not Healed -Ulcer Cleansing Rinsed/ Irrigated with Saline -Foul Odor after Cleansing No -Bioengineered Tissue No -Bleeding Controlled with Pressure -Offloading Yes -Type of Offloading Knee Walker -Debridement - Subq, 1st 20sq cm Yes #3- R LAT FOOT -Time 10:37 -Correct Patient Yes -Correct Side, Site, Position Yes -Correct Procedure Yes -Procedure Performed Yes -Type of Procedure Debridement -Clinical Debridement Subcutaneous -Tissue Removed Subcutaneous -Post Debridement (cm) - Length 1.8 -Post Debridement (cm) - Width 4.2 -Post Debridement (cm) - Depth 1 -Total Square (Post) (cm) 7.56 -Area of Debridement (cm) - Length 1.8 -Area of Debridement (cm) - Width 4.2 -Total Square (Area) (cm) 7.56 -Tunneling No -Undermining/Tunneling No -Circular Undermining No -Wound/Ulcer Outcome Not Healed -Ulcer Cleansing Rinsed/ Irrigated with Saline -Foul Odor after Cleansing Yes, Due to Product Use -Bioengineered Tissue No -Bleeding Controlled with Pressure -Offloading Yes -Type of Offloading Surgical Shoe -Treatment Response Procedure Tolerated Well -Debridement - Subq, 1st 20sq cm No Pain Scale: 0-10 Numeric Is Patient Pain Free? Yes Wound debrided: right lateral foot Wound Grade/Stage: 3 Type of Debridement: Excisional debridement Anesthesia Used: 4% Lidocaine Solution Depth: in the subcutaneous layer Percentage of wound debrided: 100 Instrument Used: #15 blade Tissue Removed: fibrous, devitalized subcutaneous, biofilm, slough Severity: Fat Layer Exposed Amount of bleeding with debridement: Mild Bleeding Controlled with: Pressure Patient tolerated procedure: Patient tolerated procedure well Assessment/Plan Assessment/Plan (1) Ulcer of right lower extremity with fat layer exposed: CODE(S): L97.912 - Non-pressure chronic ulcer of unspecified part of right lower leg with fat layer exposed (2) Ulcer of right foot with muscle involvement without evidence of necrosis: CODE(S): L97.515 - Non-pressure chronic ulcer of other part of right foot with muscle involvement without evidence of necrosis (3) Cellulitis of right lower limb: CODE(S): L03.115 - Cellulitis of right lower limb (4) Osteomyelitis: CODE(S): M86.9 - Osteomyelitis, unspecified (5) Below-knee amputation of left lower extremity: CODE(S): S88.112A - Complete traumatic amputation at level between knee and ankle, left lower leg, initial encounter (6) Peripheral vascular disease: CODE(S): I73.9 - Peripheral vascular disease, unspecified (7) Malnutrition: CODE(S): E46 - Unspecified protein-calorie malnutrition (8) Amputation of right foot: CODE(S): S98.911A - Complete traumatic amputation of right foot, level unspecified, initial encounter (9) Type 2 diabetes mellitus with diabetic polyneuropathy: CODE(S): E11.42 - Type 2 diabetes mellitus with diabetic polyneuropathy (10) Delayed wound healing: CODE(S): T14.8XXD - Other injury of unspecified body region, subsequent encounter PLAN: I reviewed and discussed his case. Debridement was performed as noted in the clinical panel. His right surgical site is worse with infection reoccurrence now. He has to this point and interested in a palliative care wound plan and we previously discussed amputation as an option as well. Not there is a status change and it is very risky to keep getting recurrent infections, he would like to proceed forward with a right below-knee amputation and ask for referral today. It is also noted that he had his pacemaker exchanged without incident. The benefits of amputation include completely removing the nidus of infection, likely increased ambulation ability if healing occurs. Risks and consequences of the amputation include further increased cardiac load, continued possibility of nonhealing or infection statuses. Risks of proceeding with wound care alone on a palliative basis include lack of resolution of infection. Aerobic, anaerobic, acid-fast, fungal and MRSA PCR cultures were obtained from the right foot. He refuses hospital admission at this time. Upon review of his prior cultures he is consistently had MRSA infections and I recommend oral doxycycline. This was sent to [facility] in [place]. He has also been previously under the management of an infectious disease physician and his course has been complicated. Follow-up is recommended because he is very high risk. He was previously treated with a 6-week course of IV vancomycin with end date of 09-26-20. To report to the emergency room if he has any worsening local signs of infection or presentation of systemic illness. He understands this is a limb and life-threatening condition. Updated labs (CBC, CMP, ESR, C-reactive protein, hemoglobin A1c), and right foot x-rays ordered. Referral to Dr. Lopez for right below-knee amputation was sent today. To change dressing with Dakin wet-to-dry packing. His vascular status has been optimized with a recent drug coated balloon angioplasty of the femoral artery with Dr. Busch. To continue on Plavix and aspirin. To continue offloading with pillow boot while resting in bed and also CAM walker with limited heel touch during short household periods of ambulation. To use assistive device. To continue to improve glucose management. I recommend segundo or glucerna as a nutritional supplement. It is also noted he is on prednisone and this may be contributing to some of his delayed healing. His lower extremity edema is addressed today with bilateral Jem wrap application and an additional tubigrip (single layer). He was advised to perform intermittent elevation and lower extremity muscular contraction hourly. 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 A referral to Dr. Whitman, pain management was implemented. To return to clinic in 1 week due to new infection status. I answered all of his questions. [employer] speech recognition salon shampoo assistant software was used to create portions of this document. Sound-alike and misspelled words, as well as other salon shampoo assistant errors may be contained in the documentation. The medical decision making level is moderate. There is noted moderate risk of morbidity after considering this treatment plan and diagnostic data. Considerations were given to prescription management, decisions regarding surgical options, or social determinants of health. The medical decision making level is moderate based on data including at least three of the following: review of prior external notes, review of a test, ordering a test, assessment requiring an independent historian. The problems addressed require a moderate decision making level which includes one or more chronic illnesses (w/ exacerbation, progression, or side effects), two or more stable chronic illnesses, one undiagnosed new problem w/ uncertain prognosis, one acute illness with systemic symptoms, or one acute complicated injury.
--- NOTE | 2020-12-01 11:50 | RAD_ITS ---
STUDY: X-RAY - RIGHT FOOT CLINICAL: Male, 75 years old. ULCER RIGHT FOOT TECHNIQUE: 3 view(s) of the foot. COMPARISON: Comparison is made with prior study dated 08/15/2020. FINDINGS: There is an enthesophyte involving the posterior superior calcaneus at the site of insertion of the Achilles tendon. Plantar spur. The patient is status post midfoot amputation. Persistent diffuse soft tissue swelling. Vascular calcification. There is evidence of a 2 cm x 1 cm ulcerated lesion adjacent to the cuboid bone. RAD/Foot min 3 Views IMPRESSION: Status post midfoot amputation. Diffuse soft tissue swelling with ulcerated lesion along the lateral aspect of the soft tissues overlying the cuboid bone. Electronically Signed: Ramon Lemus MD at 14:36 EDT , Service support ,
[2020-12-01 12:36] LABS: Erythrocyte Sedimentation Rate 10 mm/hr (0-20)
[2020-12-01 12:37] LABS: Absolute Lymphocyte Count 0.38 X10^3/uL (0.83-4.51); Absolute Neutrophil Count 4.2 X10^3/uL (2.0-7.7); Basophil# 0.03 X10^3/uL; Basophil% 0.6 % (0-1); Eosinophil# 0.07 X10^3/uL; Eosinophils% 1.4 % (0-5); Hematocrit 29.8 % (40-54); Hemoglobin 9.3 g/dL (13.0-16.5); Lymphocyte # 0.38 X10^3/ul (0.83-4.51); Lymphocyte % 7.5 % (19-41); Mean Corp Hgb Conc 31.2 g/dL (32-36); Mean Corpuscular Hgb 32.1 pg (27.0-32.0); Mean Corpuscular Volume 102.8 fL (80-94); Mean Platelet Vol. 8.9 fl (6.2-12.0); Monocyte# 0.41 X10^3/uL; Monocyte% 8.1 % (0-10); NRBC Flagged by Analyzer 0 % (0-5); Neutrophil # 4.17 X10^3/uL (2.7-7.7); Neutrophil % 81.8 % (47-70); POSITIVE DIFFERENTIAL YES; Platelet Count 220 K/mm3 (150-450); RBC Distribution Width CV 14.2 % (11.6-14.6); RBC Distribution Width SD 52.7 fl (35.1-43.9); White Blood Count 5.1 K/mm3 (4.4-11.0)
[2020-12-01 12:40] LABS: Differential Indicated SCAN CRITERIA MET
[2020-12-01 12:59] LABS: ALB/GLOB Ratio 0.8 RATIO (0.9-2.4); AST(SGOT) 14 U/L (15-37); Alanine Aminotransfer ALT/SGPT 11 U/L (16-61); Albumin, Serum 3.3 g/dL (3.2-5.0); Alkaline Phosphatase 141 U/L (45-117); Anion Gap 5 (5-15); BUN 29 mg/dL (7-18); BUN/Creat Ratio 23.2 RATIO (10-20); Calcium,Total 8.6 mg/dL (8.5-10.1); Chloride 100 mmol/L (98-107); Creatinine, Serum 1.25 mg/dL (0.70-1.30); EST Glomerular Filtration Rate 60 mL/min (>60); Est Glom Filt Rate - Afr Amer 73 mL/min (>60); Estimated Creatinine Clearance 55.22 ml/min; Globulin 4.2 g/dL (2.2-4.2); Glucose 198 mg/dL (74-106); Potassium 4.1 mmol/L (3.5-5.1); Protein, Total 7.5 g/dL (6.4-8.2); Sodium Level 136 mmol/L (136-145)
[2020-12-01 13:01] LABS: Differential Comment SCANNED
[2020-12-01 15:42] LABS: Hemoglobin A1c 6.9 % (3.8-5.6)
[2020-12-06 13:10] VITALS: BP 117/43; PULSE 98; RESP 16; TEMP 36.3; BMI 28.1
--- NOTE | 2020-12-06 15:48 | HP.PCM_ITS ---
History of Present Illness Date of Service: 12/06/20 Chief Complaint: WOUND CENTER CONSULT Nonhealing infected MRSA diabetic ulcers right lateral foot with osteomyelitis. REFERRING PHYSICIAN: Dr. Agosto. FIRE CODE INSPECTOR: Dr. Lopez. History of Wound: 75-year-old male is being seen at the Wound Center for nonhealing infected MRSA diabetic ulcers right lateral foot with osteomyelitis. He underwent revisional 4th and 5th metatarsal resections with Dr. Shah in August,. Culture showed MRSA. He was treated with IV Vancomycin for 6 weeks. Pathology showed acute osteomyelitis. He had another culture done on 12/01/20. It showed MRSA and Pseudomonas aeroginosa. He was started on Dox ycycline and the Pseudomonas is sensitive to Levaquin. Wound care is currently being done with Dakin's dressing changes. His vascular status has been optimized with a recent drug coated balloon angioplasty of the femoral artery with Dr. Busch. To continue on Plavix and aspirin. His HgbA1c from 12/01/20 was 6.9. He reports he is ready to proceed forward with a below the knee amputation due to recurrence and ongoing infections. I was asked to evaluate this patient for surgical options for treatment. Progress of Wound: Ulcers measure little larger. [facility] Medical History (Updated 12/08/20 @ 00:[address] 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 Wears hearing aid in both ears Home Medications acetaminophen 500 mg tablet 1,000 mg PO 4X/DAY tab 08/05/19 [History Last Taken 08/13/20] levothyroxine 200 mcg tablet 200 mcg PO DAILY 08/05/19 [History Last Taken ] omeprazole 40 mg capsule,delayed release 40 mg PO DAILY 08/05/19 [History Last Taken 08/13/20] prednisone 2.5 mg tablet 2.5 mg PO DAILY 08/05/19 [History Last Taken 08/13/20] aspirin 81 mg tablet,delayed release 81 mg PO DAILY 12/17/19 [History Last Taken 08/13/20] insulin glargine 10 unit SQ BID 06/09/20 [History Last Taken 08/13/20] insulin regular human See Protocol SC QHS 06/09/20 [History Last Taken 08/13/20] insulin regular human 10 units SC BREAKFAST 06/11/20 [History Last Taken 0 08/13/20] insulin regular human 20 units SC DINNER 06/11/20 [History Last Taken Unknown] clopidogrel 75 mg PO DAILY 08/06/20 [History Last Taken 08/13/20] pravastatin 40 mg PO QHS 08/06/20 [History Last Taken 08/13/20] dextrose 1 dose PO PRN PRN 09/01/20 [History Last Taken Unknown] ipratropium bromide 1 spray NASAL DAILY 09/10/20 [History Last Taken Unknown] ammonium lactate 227 gm TP DAILY #120 gm 09/15/20 [Rx Last Taken Unknown] metoprolol succinate 50 mg tablet,extended release 24 hr 50 mg PO DAILY #180 tablet 09/27/20 [Rx Last Taken Unknown] lisinopril 2.5 mg tablet 2.5 mg PO DAILY #90 tablet 09/28/20 [Rx Last Taken Unknown] furosemide 40 mg tablet 40 mg PO DAILY tablet 10/25/20 [History Last Taken Unknown] magnesium chloride 64 mg (magnesium chloride) tablet,delayed release 128 mg PO DAILY tablet 10/25/20 [History Last Taken Unknown] metolazone 5 mg tablet 5 mg PO DAILY tablet 10/25/20 [History Last Taken Unknown] oxycodone-acetaminophen 5 mg-325 mg tablet 1 tablet PO ONCE PRN tablet 10/25/20 [History Last Taken Unknown] tizanidine 4 mg tablet 4 mg PO Q8H tablet 10/25/20 [History Last Taken Unknown] doxycycline hyclate 100 mg PO BID #21 cap 12/01/20 [Rx Last Taken Unknown] Allergy/AdvReac Type Severity Reaction Status Date / Time amiodarone Allergy Severe pulmonary Verified 10/25/20 14:42 fibrosis sotalol Allergy Severe intolerant Verified 10/25/20 14:42 levofloxacin [From Levaquin] Allergy Pain in Verified 10/25/20 14:42 joints gabapentin AdvReac Diarrhea Verified 10/25/20 14:42 latex AdvReac Rash Verified 10/25/20 14:42 Family History Sister Diabetes Mother Heart disease Valve replacement Father Diabetes Surgical History (Updated 12/08/20 @ 00:[address] Manan Lopez MD) History of amputation of toe History of bilateral cataract extraction History of cholecystectomy History of coronary artery bypass graft (~2003) History of coronary artery stent placement (~03/2019) History of endoscopy History of left below knee amputation (~2014) Presence of permanent cardiac pacemaker (~08/2020) Social History (Updated 10/25/20 @ 16:31 by Rc Dean SCHOOL INSPECTOR, SCHOOL INSPECTOR-C) Smoking Status: Former smoker quit date: 07/02/98 pack-years: 34 alcohol intake: current alcohol intake frequency: holidays/special occasions only substance use type: does not use caffeine: Yes Type: coffee Number of servings: 2 ROS ROS Narrative Constitutional: Reports: Chills, Malaise, Weakness, Fatigue. Denies: Anorexia, Fever, Night Sweats, Weight Change Eyes: Denies: Blurred vision HEENT: Denies: Head Aches, Sinus Congestion, Sinus Drainage Cardiovascular: Denies: Chest Pain, Palpitations Respiratory: Denies: Cough, Shortness of Breath, Shortness of breath at rest, Shortness of breath upon exertion, Sputum production Gastrointestinal: Denies: Abdominal Pain, Nausea, Vomiting Genitourinary: Denies: Dysuria Musculoskeletal: Reports: Foot Pain. Denies: Joint Pain, Joint Tenderness Skin: Reports: Wounds. Denies: Rash Neurological: Denies: Numbness, Tingling, Focal weakness Psychiatric: Denies: Anxiety, Depression, Homicidal Ideations, Suicidal Ideations Hematologic/ Lymphatic: Denies: Easy Bruising, Easy Bleeding Vital Signs Vital Signs Vital Signs: 12/06/20 13:10 Temperature 97.3 F L Temperature Source Temporal Pulse Rate 98 Respiratory Rate 16 Blood Pressure 117/43 L Blood Pressure Mean 67 Blood Pressure Source Monitor Blood Pressure Position Sitting Blood Pressure Location Right Arm Oxygen Delivery Method Room Air Weight Weight: 195 lb Body Mass Index (BMI) 28.1 Physical Exam Narrative General: Alert, Oriented x3. HEENT: PERRLA, EOMI. Oral: Dry Mucosa Neck: Supple, Nontender. No cervical adenopathy. Lungs: - - diminished breath sounds bilaterally. Cardiovascular: Regular rate and rhythm. Abdomen: Soft, Non-Distended. Extremities: No clubbing, No cyanosis, No edema, Capillary Refill Less than 3 Se conds. Has two nonhealing diabetic ulcers right lateral foot. Has healed transmetatarsal amputation incision right foot. Mild swelling noted. Some granulation tissue seen. Has allison-ulcer callus formation. There is some undermining present about 2 cm. No purulent drainage noted. Dorsalis pedis pulses are decreased. Has a left BKA stump. There is mild tenderness on lateral aspect of stump. It appears as though the fibula is a little longer than the tibia. The tenderness is over the fibula. He states the area does blister at times. Today there is no blister formation. No evidence of infection. Lymphatic: No Cervical, axillary, or Inguinal Adenopathy Neurological: Cranial nerves II-XII grossly intact. Psych/Mental Status: Normal Affect, Appropriate, Alert and oriented to time, p lace, person, mood and affect. Debridement Note Debridement Note Post-Debridement Measurements and Additional Note: Post-Debridement Measurements/Treatment - Nurse 1 - General Ulcer Assessment Start: 12/01/20 10:04 Freq: Status: Active Protocol: .OUSMANE Activity Type Activity Date Activity User E-Sign Co-Sign Detail Recorded Client Recorded Date Recorded By Document 12/01/20 10:04 [facility] [id number] 12/01/20 10:14 [facility] Document 12/06/20 13:10 [facility] [id number] 12/06/20 13:17 [facility] 12/01/20 12/06/20 10:04 13:10 - Today's Visit Information Type of service Follow-up Visit Follow-up Visit (Physician/GENERAL EXPEDITOR (Physician/GENERAL EXPEDITOR ) ) Arrival Mode Wheelchair Other Arrival Mode (Other) electric scooter Transfer Assistance None Accompanied by Patient Identification Verified (Name & Yes Yes ) Patient Requires Transmission-Based No No Precautions Height and Weight Body Mass Index (BMI) 28.1 28.1 BMI Classification Overweight Overweight Vital Signs Temperature (97.8 F-99.1 F) 97.2 F L 97.3 F L Temperature Source Temporal Temporal Pulse Rate (60-100) 81 98 Pulse Location Monitor Monitor Respiratory Rate (12-18) 18 16 Respiratory rate source Observation Observation Oxygen Delivery Method Room Air Room Air Blood Pressure (90/60-120/80) 107/43 L 117/43 L Blood Pressure Mean 64 67 Source Monitor Monitor Position Sitting Sitting Blood Pressure Location Left Arm Right Arm History Since Last Visit- (Skip if this is Patient's initial visit) Have you changed medications since your No No last visit? Any new allergies or adverse reactions No No Had a fall/change in ADL's that may No No increase risk of falls Signs or symptoms of abuse and/or No No neglect since last visit Have you been in the hospital since your No No last visit? Has dressing in place as prescribed Yes Yes Has compression in place as prescribed No Yes Has offloadiing in place as prescribed Yes Yes Experienced any changes in pain level or No No management Left Footwear Other Footwear Other Footwear (Comment) (Comment) Right Footwear Removable Cast Multipodus Walker/Walking Splint/Boot Boot Other Footwear left prosthesis left prosthesis Pain Scale: 0-10 Numeric Is Patient Pain Free? Yes Yes - Nurse 1 - General Ulcer Measurement Start: 12/01/20 10:04 Freq: Status: Active Protocol: Activity Type Activity Date Activity User E-Sign Co-Sign Detail Recorded Client Recorded Date Recorded By Document 12/01/20 10:04 [facility] [id number] 12/01/20 10:14 [facility] Document 12/06/20 13:10 [facility] [id number] 12/06/20 13:17 [facility] 12/01/20 12/06/20 10:04 13:10 Wound Center Nurse 1 6-right lateral lower foot -Combined with other wound No No -Current Size (cm) - Length 0.6 0.8 -Current Size (cm) - Width 1.2 0.7 -Current Size (cm) - Depth 0.6 0.3 -Total Square Cm 0.72 0.56 -Photo Taken No No -Epithelialization None Present None Present -Tunneling No No -Undermining/Tunneling Yes No -Undermining/Tunneling Starts (O'clock 5 ) -Undermining/Tunneling Ends (O'clock) 10 -Maximum Distance (cm) 0.5 -Circular Undermining No No -Exudate Amt Medium Medium -Exudate Type Serosanguineous Serosanguineous -Wound Margin Distinct, Distinct, Outline Outline Attached Attached -Granulation Amt Medium (34-66%) Medium (34-66%) -Granulation Quality Red Red -Slough/Fibrin Yes Yes -Necrosis Amt Small (1-33%) Medium (34-66%) -Necrotic Tissue Type Adherent Slough Adherent Slough -Texture (Allison-wound Skin Appearance) Assessed, Assessed, Scarring Scarring -Moisture (Allison-wound Skin Appearance) Assessed, Assessed, Maceration Maceration -Color (Allison-wound Skin Appearance) Assessed,Palor Assessed, Erythema,Palor -Temperature (Allison-wound Skin No Abnormality No Abnormality Appearance) (Pt Warm) (Pt Warm) -Tenderness on Palpation (Allison-wound Yes Yes Skin Appearance) -Ulcer Cleansing soapy water Rinsed/ Irrigated with Saline -Foul Odor after Cleansing No No -Anesthetic Used 5% Lidocaine 4% Lidocaine Gel Solution #3- R LAT FOOT -Combined with other wound No No -Current Size (cm) - Length 1.7 4.9 -Current Size (cm) - Width 4.2 2.5 -Current Size (cm) - Depth 1 0.5 -Total Square Cm 7.14 12.25 -Photo Taken No -Epithelialization None Present None Present -Tunneling No No -Undermining/Tunneling Yes Yes -Undermining/Tunneling Starts (O'clock 6 7 ) -Undermining/Tunneling Ends (O'clock) 1 10 -Maximum Distance (cm) 3.4 2.2 -Circular Undermining No -Exudate Amt Large Medium -Exudate Type Serosanguineous Serosanguineous -Wound Margin Thickened Distinct, Outline Attached -Granulation Amt Large (67-100%) Medium (34-66%) -Granulation Quality Red Red -Slough/Fibrin Yes Yes -Necrosis Amt Small (1-33%) Medium (34-66%) -Necrotic Tissue Type Adherent Slough Adherent Slough -Texture (Allison-wound Skin Appearance) Assessed, Assessed, Scarring Scarring -Moisture (Allison-wound Skin Appearance) Assessed, Assessed, Maceration Maceration -Color (Allison-wound Skin Appearance) Assessed,Palor Assessed, Erythema,Palor -Temperature (Allison-wound Skin No Abnormality No Abnormality Appearance) (Pt Warm) (Pt Warm) -Tenderness on Palpation (Allison-wound Yes Yes Skin Appearance) -Ulcer Cleansing soapy water Rinsed/ Irrigated with Saline -Foul Odor after Cleansing No -Anesthetic Used 5% Lidocaine 4% Lidocaine Gel Solution Lower Limb Edema Present Yes Right Calf (cm) 40 Right Ankle (cm) 24.5 WC - Nurse 2 - General Ulcer CM Notes Start: 12/01/20 10:04 Freq: Status: Active Protocol: Activity Type Activity Date Activity User E-Sign Co-Sign Detail Recorded Client Recorded Date Recorded By Document 12/01/20 10:24 [id number] 12/01/20 10:38 Document 12/06/20 13:40 [id number] 12/06/20 13:46 12/01/20 12/06/20 10:24 13:40 Wound Center Nurse 2 6-right lateral lower foot -Time 10:36 13:44 -Correct Patient Yes Yes -Correct Side, Site, Position Yes Yes -Correct Procedure Yes Yes -Procedure Performed Yes Yes -Type of Procedure Debridement Debridement -Clinical Debridement Subcutaneous Subcutaneous -Tissue Removed Subcutaneous Subcutaneous -Post Debridement (cm) - Length 0.8 0.8 -Post Debridement (cm) - Width 1.2 0.8 -Post Debridement (cm) - Depth 0.6 0.3 -Total Square (Post) (cm) 0.96 0.64 -Area of Debridement (cm) - Length 0.8 0.8 -Area of Debridement (cm) - Width 1.2 0.8 -Total Square (Area) (cm) 0.96 0.64 -Tunneling No No -Undermining/Tunneling No No -Circular Undermining No No -Wound/Ulcer Outcome Not Healed Not Healed -Ulcer Cleansing Rinsed/ Rinsed/ Irrigated with Irrigated with Saline Saline -Foul Odor after Cleansing No No -Bioengineered Tissue No No -Bleeding Controlled with Pressure Pressure -Offloading Yes No -Type of Offloading Knee Walker -Treatment Response Procedure Tolerated Well -Debridement - Subq, 1st 20sq cm Yes No #3- R LAT FOOT -Time 10:37 13:45 -Correct Patient Yes Yes -Correct Side, Site, Position Yes Yes -Correct Procedure Yes Yes -Procedure Performed Yes Yes -Type of Procedure Debridement Debridement -Clinical Debridement Subcutaneous Subcutaneous -Tissue Removed Subcutaneous Subcutaneous -Post Debridement (cm) - Length 1.8 5 -Post Debridement (cm) - Width 4.2 2.5 -Post Debridement (cm) - Depth 1 2.2 -Total Square (Post) (cm) 7.56 12.5 -Area of Debridement (cm) - Length 1.8 5 -Area of Debridement (cm) - Width 4.2 2.5 -Total Square (Area) (cm) 7.56 12.5 -Tunneling No No -Undermining/Tunneling No No -Circular Undermining No No -Wound/Ulcer Outcome Not Healed Not Healed -Ulcer Cleansing Rinsed/ Rinsed/ Irrigated with Irrigated with Saline Saline -Foul Odor after Cleansing Yes, Due to No Product Use -Bioengineered Tissue No No -Bleeding Controlled with Pressure Pressure -Offloading Yes No -Type of Offloading Surgical Shoe -Treatment Response Procedure Procedure Tolerated Well Tolerated Well -Debridement - Subq, 1st 20sq cm No Yes Pain Scale: 0-10 Numeric Is Patient Pain Free? Yes Yes - Nurse 3 - General Ulcer D/C NN Start: 12/01/20 10:04 Freq: Status: Active Protocol: Activity Type Activity Date Activity User E-Sign Co-Sign Detail Recorded Client Recorded Date Recorded By Document 12/01/20 13:57 RB [id number] 12/01/20 13:58 RB Document 12/06/20 13:59 KR [id number] 12/06/20 14:01 KR 12/01/20 12/06/20 13:57 13:59 Wound Care Nurse 3 6-right lateral lower foot -Ulcer Cleansing Rinsed/ Irrigated with Saline -Other Dressing betadine wet to dry -Primary Dressing Covered/Secured with Dry Gauze & Dry Gauze, Roll Gauze, Secured with Secured with Tape Tape #3- R LAT FOOT -Other Dressing betadine wet to dry -Primary Dressing Covered/Secured with Dry Gauze & Dry Gauze, Roll Gauze, Secured with Secured with Tape Tape Treatment Response Procedure Tolerated Well Pain Scale: 0-10 Numeric Is Patient Pain Free? Yes Yes - Visit Discharge Discharge Condition Stable Stable Ambulatory Status Wheelchair Wheelchair Transportation Private Auto Private Auto Accompanied by Medication Reconcilliation completed & No provided to patient/care provider Clinical Summary of Care Provided Yes Wound debrided: #3 Right lateral foot. Laterality: Right Wound Grade/Stage: 3. Type of Debridement: Excisional debridement Anesthesia Used: 4% Lidocaine Solution Depth: Down to and including healthy tissue and in the subcutaneous layer Percentage of wound debrided: 100 Instrument Used: 5mm curette Tissue Removed: subcutaneous tissue. Severity: Fat Layer Exposed Amount of bleeding with debridement: Mild Bleeding Controlled with: Pressure and Compression and gauze Patient tolerated procedure: Patient tolerated procedure well Additional Wound Wound debrided: #6 Right lateral lower foot. Laterality: Right Wound Grade/Stage: 3. Type of Debridement: Excisional debridement Anesthesia Used: 4% Lidocaine Solution Depth: Down to and including healthy tissue and in the subcutaneous layer Percentage of wound debrided: 100 Instrument Used: 5mm curette Tissue Removed: subcutaneous tissue. Severity: Fat Layer Exposed Amount of bleeding with debridement: Mild Bleeding Controlled with: Pressure and Compression and gauze Patient tolerated procedure: Patient tolerated procedure well Lab / Micro Data Result Diagrams: 12/01/20 11:24 12/01/20 11:24 Charges/Coding Visit Charges Office Visits / Consults: [id number] OV L4 New (-25 Modifier ICD-10 - L97.512, M86.9, A49.02, A49.8, E11.42, I73.9, Z89.431, Z89.512, Z87.891) Procedures Integumentary [id number]: [id number] Alejandra subq tissue 20 sq cm/< (ICD-10 - L97.512, M86.9, A49.02, A49.8, E11.42, I73.9, Z89.431, Z89.512, Z87.891) Assessment/Plan Assessment/Plan (1) Osteomyelitis: CODE(S): M86.9 - Osteomyelitis, unspecified (2) Non-pressure chronic ulcer of other part of right foot with fat layer exposed: CODE(S): L97.512 - Non-pressure chronic ulcer of other part of right foot with fat layer exposed (3) MRSA (methicillin resistant Staphylococcus aureus) infection: CODE(S): A49.02 - Methicillin resistant Staphylococcus aureus infection, unspecified site (4) Status post transmetatarsal amputation of right foot: CODE(S): Z89.431 - Acquired absence of right foot (5) Status post below-knee amputation of left lower extremity: CODE(S): Z89.512 - Acquired absence of left leg below knee (6) Peripheral vascular disease: CODE(S): I73.9 - Peripheral vascular disease, unspecified (7) Type 2 diabetes mellitus with diabetic polyneuropathy: CODE(S): E11.42 - Type 2 diabetes mellitus with diabetic polyneuropathy (8) Pseudomonas aeruginosa infection: CODE(S): A49.8 - Other bacterial infections of unspecified site (9) Former smoker: CODE(S): Z87.891 - Personal history of nicotine dependence PLAN: Right foot x-ray reviewed. Cultures reviewed and Lab studies reviewed. Continue Dakin's dressing changes daily. Continue Doxycycline for the MRSA and the Pseudomonas aeroginosa is sensitive to Levaquin. Previous surgery notes and Wound Center notes reviewed. He is having recurrent infections with MRSA and has underlying osteomyelitis. With his history of diabetes mellitus, he is at risk for an acute exacerbation of his infections that could spread proximally at which time a BKA may no longer be an option. Therefore I recommend a BKA at this time before further infection potentially may compromise a BKA and force an AKA. The rehab and prosthesis are better with a BKA. Surgery will be done under general anesthesia with a surgical observation overnight stay in the hospital. He will have a drain in for 10-14 days. Sutures will be removed in 2-3 weeks. Tissue and bone will be sent to Pathology to evaluate for osteomyelitis and to Microbiology for culture. A positive culture will necessitate antibiotic therapy. Depending on the culture IV antibiotics may be necessary through a PICC line. Since a right BKA would make him a double amputee, it would be difficult to send him home after surgery. I would have him evaluated for the Rehab Unit or the Transitional Care Unit until he is ready to be discharged home. Will schedule the surgery in the next couple of weeks. His HgbA1c from 12/01/20 was 6.9. For the surgery, his level needs to be less than 8. Patient was informed of the risks and complications of the procedure including alternatives to surgery. These were discussed with the patient personally. Patient voices understanding and wishes to proceed. Potential risks and complications included but not inclusive of bleeding, infection, seroma, hematoma, bruising, swelling, prolonged need for drains, loss of sensation to skin, partial or complete loss of skin flap, wound breakdown, need for wound care, poor scarring, poor aesthetic outcome, intra operative cardiac or neurologic events, DVT, PE, and reaction to anesthesia. He voices understanding and wishes to proceed. His questions were answered personally and to his satisfaction. Patient also has pain in his left BKA stump laterally where the fibula appears to be a little longer than the tibia. After healing of his right BKA stump, can then address his left BKA stump. I'm concerned that if nothing is done, the bone may erode through the skin. A stump revision would entail shortening the fibula. Soft tissue revision may also be necessary. Patient was agreeable to this plan. Followup with Dr. Agosto until the amputation surgery is completed.
[2020-12-08 13:07] VITALS: BP 121/64; PULSE 110; RESP 16; TEMP 36.8; BMI 28.1
--- NOTE | 2020-12-08 13:16 | WC ---
Addendum entered by Ailyn Chua 12/08/20 13:18: ADDENDUM- PER CM, WE DO NOT NEED TO EVAL/PREP WOUNDS TODAY D/T ILLNESS FOR DEBRIDEMT, PT WAS SEEN ON THIS PAST SUNDAY FOR SURGICAL EVAL. Original Note: PT W/ MODERATE RASHEED EMESIS AT START OF EVAL. C/O GENERALIZED MALAISE. VITALS OBTAINED AND DOCUMENTED. EMESIS BAGS PROVIDED, BOTTLED WATER. YAZAN GONZALES UPDATED. WILL UPDATE DR RAMIREZ. PT IS ALSO TO SEE DR BLANCO TODAY.
--- NOTE | 2020-12-08 14:39 | PN.ID_ITS ---
Physical Exam Narrative Foot with some redness. Went to indoor and outdoor, maskless, gathering with multiple family groups on 12/05/20. One person there with cough and congestion. Pt and his are both vaccinated. They were started on sertraline 12/06. By 12/06, pt reports n/v, in bed all day with fatigue and not feeling well, some c hange in sense of taste. Has chronic aches, dyspnea, unchanged. with some brief n/v, resolved. Has been taking doxy. BKA planned. Emesis while at wound center this afternoon. Const alert and no apparent distress General Appearance: cooperative Resp clear to auscultation bilaterally Auscultation: diminished lung sounds Cardio regular rate and regular rhythm GI normal to inspection, nondistended, normoactive bowel sounds Skin Skin Narrative: R foot ulcer ID ID: Route of nutrition/ use of supplements: [] Nutritional Intake: [] IV Site: [] Wills Catheter: [] Assessment & Plan Assessment/Plan (1) Nausea & vomiting: PLAN: At risk for covid, wrote order for covid pcr. (2) Osteomyelitis: PLAN: Recent cx with MRSA and PsA. On doxy. Discussed options re: monitoring or starting po or iv abx. Listed allergy to levaquin is joint aches, and he and have no memory of this. Do not recall ever trying cipro. Will start course of po cipro and see if he can tolerate it in order to try to keep foot stable while BKA pending. Will follow, return to clinic in 2 weeks, d/w Dr. Agosto. Syed send her letter.
--- NOTE | 2020-12-08 15:20 | PCM.WC.PN ---
History of Present Illness Date of Service: 12/08/20 Chief Complaint: right foot ulcer with infection History of Wound: 75-year-old male with a left below knee amputation (prior healed wound) and right transmetatarsal amputation follows up for ulcer of lateral foot that has been infected the past 1.5 weeks. He was treated this past week for foot infection and had updated labs and x-rays. He now has additional symptoms including nausea, vomiting, fatigue, loss of taste with an onset of 2 days ago. After he was roomed today at the wound healing center he did vomit. He reports he went to a wedding over the weekend with his and was in a very large crowd. His also is experiencing nausea and vomiting who attributed her symptoms to some new medication she started; the symptoms have resolved. He denies cough. He has been vaccinated for Covid. right foot: He underwent revisional 4th and 5th metatarsal resections with Dr. Shah on 08/15/2020. He denies fever, chills, nausea, vomiting. He had MRSA growth and he completed a 6-week course of IV antibiotics with end date of . He was under the management of infectious disease physician previously. He reports increased decreased drainage and redness since last week. There is still green drainage and intermittent discomfort. He reports he is ready to proceed forward with a below the knee amputation due to recurrence and ongoing infections. Since last week, he was started on doxycycline based off of his history of recurrent MRSA infections. His most recent culture changes now include Pseudomonas. He had a surgical consultation [address] Lopez and additional foot debridement was performed at that time. He will get scheduled for below-knee amputation within the next couple weeks under general anesthesia. Left leg: He denies drainage or ulcer formation. He is also interested in a subsequent revisional below-knee amputation with Dr. Lopez after his right lower extremity surgical intervention is completed and stable. Progress of Wound: infected Objective Data Objective Data Vital Signs: Vital Signs Temp Pulse Resp BP 98.2 F 110 H 16 121/64 H 12/08/20 13:07 12/08/20 13:07 12/08/20 13:07 12/08/20 13:07 Oxygen Delivery Method Room Air Weight: 88.451 kg Body Mass Index (BMI) 28.1 Lab / Micro Data Result Diagrams: 12/01/20 11:24 12/01/20 11:24 Micro: Microbiology 12/01/20 10:27 Ulcer, Decubitus - Right Foot Gram Stain - Final 12/01/20 10:27 Ulcer, Decubitus - Right Foot Wound Culture - Final Pseudomonas aeroginosa Meth. resistant Staph. aureus 12/01/20 10:27 Ulcer, Decubitus - Right Foot Anaerobic Culture - Final No anaerobic bacteria isolated. Physical Exam Const alert and oriented x3 General Appearance: cooperative and in distress HEENT normocephalic Extremity Extremity Narrative: No calf tenderness Diminished pulses Muscle wasting noted Left below-knee amputation Right transmetatarsal amputation Compartments remain soft to palpate bilateral. General Extremity: edema; Negative for cyanosis Skin Skin Narrative: Left: No skin discontinuity or infection. Skin is atrophic and hairless Right: No streaking, no odor. There is resolved erythema adjacent to the ulcer site with communication between all ulcers (3). There is seropurulent drainage (decreased compared to last week), and continued devitalized subcutaneous and tendon exposure. No eschar. Skin is atrophic and hairless. there is no odor Neuro Neuro Narrative: lack of normal epicritic sensation via light touch is consistent with neuropathy status Psych cooperative and affect normal Debridement Note Debridement Note Post-Debridement Measurements and Additional Note: Post-Debridement Measurements/Treatment - Nurse 1 - General Ulcer Assessment Start: 12/01/20 10:04 Freq: Status: Active Protocol: .LOWMELVIN Activity Type Activity Date Activity User E-Sign Co-Sign Detail Recorded Client Recorded Date Recorded By Document 12/01/20 10:[address] [facility] [id number] 12/01/20 10:[address] [facility] Document 12/06/20 13:[address] [facility] [id number] 12/06/20 13:[address] [facility] Document 12/08/20 13:[address] [facility] [id number] 12/08/20 13:[address] [facility] 12/01/20 12/06/20 12/08/20 10:04 13:10 13:07 - Today's Visit Information Type of service Follow-up Visit Follow-up Visit Follow-up Visit (Physician/BLUEPRINT ASSEMBLER (Physician/BLUEPRINT ASSEMBLER (Physician/BLUEPRINT ASSEMBLER ) ) ) Arrival Mode Wheelchair Other Other Arrival Mode (Other) electric electric scooter scooter Transfer Assistance None Accompanied by Patient Identification Verified (Name & Yes Yes Yes ) Patient Requires Transmission-Based No No No Precautions Height and Weight Body Mass Index (BMI) 28.1 28.1 28.1 BMI Classification Overweight Overweight Overweight Vital Signs Temperature (97.8 F-99.1 F) 97.2 F L 97.3 F L 98.2 F Temperature Source Temporal Temporal Temporal Pulse Rate (60-100) 81 98 110 H Pulse Location Monitor Monitor Monitor Respiratory Rate (12-18) 18 16 16 Respiratory rate source Observation Observation Observation Oxygen Delivery Method Room Air Room Air Room Air Blood Pressure (90/60-120/80) 107/43 L 117/43 L 121/64 H Blood Pressure Mean (mm Hg) 64 67 83 Source Monitor Monitor Monitor Position Sitting Sitting Sitting Blood Pressure Location Left Arm Right Arm History Since Last Visit- (Skip if this is Patient's initial visit) Have you changed medications since your No No last visit? Any new allergies or adverse reactions No No Had a fall/change in ADL's that may No No increase risk of falls Signs or symptoms of abuse and/or No No neglect since last visit Have you been in the hospital since your No No last visit? Has dressing in place as prescribed Yes Yes Has compression in place as prescribed No Yes Has offloadiing in place as prescribed Yes Yes Experienced any changes in pain level or No No management Left Footwear Other Footwear Other Footwear (Comment) (Comment) Right Footwear Removable Cast Multipodus Walker/Walking Splint/Boot Boot Other Footwear left prosthesis left prosthesis Pain Scale: 0-10 Numeric Is Patient Pain Free? Yes Yes WC - Nurse 1 - General Ulcer Measurement Start: 12/01/20 10:04 Freq: Status: Active Protocol: Activity Type Activity Date Activity User E-Sign Co-Sign Detail Recorded Client Recorded Date Recorded By Document 12/01/20 10:[address] [facility] [id number] 12/01/20 10:[address] [facility] Document 12/06/20 13:[address] [facility] [id number] 12/06/20 13:[address] [facility] 12/01/20 12/06/20 10:04 13:10 Wound Center Nurse 1 6-right lateral lower foot -Combined with other wound No No -Current Size (cm) - Length 0.6 0.8 -Current Size (cm) - Width 1.2 0.7 -Current Size (cm) - Depth 0.6 0.3 -Total Square Cm 0.72 0.56 -Photo Taken No No -Epithelialization None Present None Present -Tunneling No No -Undermining/Tunneling Yes No -Undermining/Tunneling Starts (O'clock 5 ) -Undermining/Tunneling Ends (O'clock) 10 -Maximum Distance (cm) 0.5 -Circular Undermining No No -Exudate Amt Medium Medium -Exudate Type Serosanguineous Serosanguineous -Wound Margin Distinct, Distinct, Outline Outline Attached Attached -Granulation Amt Medium (34-66%) Medium (34-66%) -Granulation Quality Red Red -Slough/Fibrin Yes Yes -Necrosis Amt Small (1-33%) Medium (34-66%) -Necrotic Tissue Type Adherent Slough Adherent Slough -Texture (Allison-wound Skin Appearance) Assessed, Assessed, Scarring Scarring -Moisture (Allison-wound Skin Appearance) Assessed, Assessed, Maceration Maceration -Color (Allison-wound Skin Appearance) Assessed,Palor Assessed, Erythema,Palor -Temperature (Allison-wound Skin No Abnormality No Abnormality Appearance) (Pt Warm) (Pt Warm) -Tenderness on Palpation (Allison-wound Yes Yes Skin Appearance) -Ulcer Cleansing soapy water Rinsed/ Irrigated with Saline -Foul Odor after Cleansing No No -Anesthetic Used 5% Lidocaine 4% Lidocaine Gel Solution #3- R LAT FOOT -Combined with other wound No No -Current Size (cm) - Length 1.7 4.9 -Current Size (cm) - Width 4.2 2.5 -Current Size (cm) - Depth 1 0.5 -Total Square Cm 7.14 12.25 -Photo Taken No -Epithelialization None Present None Present -Tunneling No No -Undermining/Tunneling Yes Yes -Undermining/Tunneling Starts (O'clock 6 7 ) -Undermining/Tunneling Ends (O'clock) 1 10 -Maximum Distance (cm) 3.4 2.2 -Circular Undermining No -Exudate Amt Large Medium -Exudate Type Serosanguineous Serosanguineous -Wound Margin Thickened Distinct, Outline Attached -Granulation Amt Large (67-100%) Medium (34-66%) -Granulation Quality Red Red -Slough/Fibrin Yes Yes -Necrosis Amt Small (1-33%) Medium (34-66%) -Necrotic Tissue Type Adherent Slough Adherent Slough -Texture (Allison-wound Skin Appearance) Assessed, Assessed, Scarring Scarring -Moisture (Allison-wound Skin Appearance) Assessed, Assessed, Maceration Maceration -Color (Allison-wound Skin Appearance) Assessed,Palor Assessed, Erythema,Palor -Temperature (Allison-wound Skin No Abnormality No Abnormality Appearance) (Pt Warm) (Pt Warm) -Tenderness on Palpation (Allison-wound Yes Yes Skin Appearance) -Ulcer Cleansing soapy water Rinsed/ Irrigated with Saline -Foul Odor after Cleansing No -Anesthetic Used 5% Lidocaine 4% Lidocaine Gel Solution Lower Limb Edema Present Yes Right Calf (cm) 40 Right Ankle (cm) 24.5 WC - Nurse 2 - General Ulcer CM Notes Start: 12/01/20 10:04 Freq: Status: Active Protocol: Activity Type Activity Date Activity User E-Sign Co-Sign Detail Recorded Client Recorded Date Recorded By Document 12/01/20 10:24 [id number] 12/01/20 10:38 Document 12/06/20 13:40 [id number] 12/06/20 13:46 Document 12/08/20 13:34 [id number] 12/08/20 13:35 12/01/20 12/06/20 12/08/20 10:24 13:40 13:34 Wound Center Nurse 2 6-right lateral lower foot -Time 10:36 13:44 -Correct Patient Yes Yes No -Correct Side, Site, Position Yes Yes No -Correct Procedure Yes Yes No -Procedure Performed Yes Yes No -Type of Procedure Debridement Debridement -Clinical Debridement Subcutaneous Subcutaneous -Tissue Removed Subcutaneous Subcutaneous -Post Debridement (cm) - Length 0.8 0.8 -Post Debridement (cm) - Width 1.2 0.8 -Post Debridement (cm) - Depth 0.6 0.3 -Total Square (Post) (cm) 0.96 0.64 -Area of Debridement (cm) - Length 0.8 0.8 -Area of Debridement (cm) - Width 1.2 0.8 -Total Square (Area) (cm) 0.96 0.64 -Tunneling No No -Undermining/Tunneling No No -Circular Undermining No No -Wound/Ulcer Outcome Not Healed Not Healed Not Healed -Ulcer Cleansing Rinsed/ Rinsed/ Irrigated with Irrigated with Saline Saline -Foul Odor after Cleansing No No -Bioengineered Tissue No No -Bleeding Controlled with Pressure Pressure -Offloading Yes No -Type of Offloading Knee Walker -Treatment Response Procedure Tolerated Well -Debridement - Subq, 1st 20sq cm Yes No #3- R LAT FOOT -Time 10:37 13:45 -Correct Patient Yes Yes No -Correct Side, Site, Position Yes Yes No -Correct Procedure Yes Yes No -Procedure Performed Yes Yes No -Type of Procedure Debridement Debridement -Clinical Debridement Subcutaneous Subcutaneous -Tissue Removed Subcutaneous Subcutaneous -Post Debridement (cm) - Length 1.8 5 -Post Debridement (cm) - Width 4.2 2.5 -Post Debridement (cm) - Depth 1 2.2 -Total Square (Post) (cm) 7.56 12.5 -Area of Debridement (cm) - Length 1.8 5 -Area of Debridement (cm) - Width 4.2 2.5 -Total Square (Area) (cm) 7.56 12.5 -Tunneling No No -Undermining/Tunneling No No -Circular Undermining No No -Wound/Ulcer Outcome Not Healed Not Healed Not Healed -Ulcer Cleansing Rinsed/ Rinsed/ Irrigated with Irrigated with Saline Saline -Foul Odor after Cleansing Yes, Due to No Product Use -Bioengineered Tissue No No -Bleeding Controlled with Pressure Pressure -Offloading Yes No -Type of Offloading Surgical Shoe -Treatment Response Procedure Procedure Tolerated Well Tolerated Well -Debridement - Subq, 1st 20sq cm No Yes Pain Scale: 0-10 Numeric Is Patient Pain Free? Yes Yes Yes WC - Nurse 3 - General Ulcer D/C NN Start: 12/01/20 10:04 Freq: Status: Active Protocol: Activity Type Activity Date Activity User E-Sign Co-Sign Detail Recorded Client Recorded Date Recorded By Document 12/01/20 13:57 RB [id number] 12/01/20 13:58 RB Document 12/06/20 13:59 KR [id number] 12/06/20 14:01 KR Document 12/08/20 14:34 RB Desktop 12/08/20 14:35 RB 12/01/20 12/06/20 12/08/20 13:57 13:59 14:34 Wound Care Nurse 3 6-right lateral lower foot -Ulcer Cleansing Rinsed/ Irrigated with Saline -Other Dressing betadine wet to dry saline moistened gauze -Primary Dressing Covered/Secured with Dry Gauze & Dry Gauze, Dry Gauze,Dry Roll Gauze, Secured with Gauze & Roll Secured with Tape Gauze,Secured Tape with Tape -Other Covering abd #3- R LAT FOOT -Other Dressing betadine wet to dry saline moistened gauze -Primary Dressing Covered/Secured with Dry Gauze & Dry Gauze, Dry Gauze,Dry Roll Gauze, Secured with Gauze & Roll Secured with Tape Gauze,Secured Tape with Tape Right -Tubular Bandage Single Layer -Size of Tubigrip Used Size F -Size F ($) 1 Treatment Response Procedure Procedure Tolerated Well Tolerated Well Pain Scale: 0-10 Numeric Is Patient Pain Free? Yes Yes Yes WC - Visit Discharge Discharge Condition Stable Stable Stable Ambulatory Status Wheelchair Wheelchair Wheelchair Transportation Private Auto Private Auto Private Auto Accompanied by Medication Reconcilliation completed & No No provided to patient/care provider Clinical Summary of Care Provided Yes Yes Assessment/Plan Assessment/Plan (1) Ulcer of right lower extremity with fat layer exposed: CODE(S): L97.912 - Non-pressure chronic ulcer of unspecified part of right lower leg with fat layer exposed (2) Ulcer of right foot with muscle involvement without evidence of necrosis: CODE(S): L97.515 - Non-pressure chronic ulcer of other part of right foot with muscle involvement without evidence of necrosis (3) Cellulitis of right lower limb: CODE(S): L03.115 - Cellulitis of right lower limb (4) Osteomyelitis: CODE(S): M86.9 - Osteomyelitis, unspecified (5) Below-knee amputation of left lower extremity: CODE(S): S88.112A - Complete traumatic amputation at level between knee and ankle, left lower leg, initial encounter (6) Peripheral vascular disease: CODE(S): I73.9 - Peripheral vascular disease, unspecified (7) Malnutrition: CODE(S): E46 - Unspecified protein-calorie malnutrition (8) Amputation of right foot: CODE(S): S98.911A - Complete traumatic amputation of right foot, level unspecified, initial encounter (9) Type 2 diabetes mellitus with diabetic polyneuropathy: CODE(S): E11.42 - Type 2 diabetes mellitus with diabetic polyneuropathy (10) Delayed wound healing: CODE(S): T14.8XXD - Other injury of unspecified body region, subsequent encounter PLAN: I reviewed and discussed his case. Debridement was performed by Dr. Lopez 2 days ago and was therefore not performed today. His right surgical site has continued infection reoccurrence at this time however there is reduced erythema and purulence compared to last week. He was started on doxycycline for history of MRSA coverage. His updated cultures demonstrate continued MRSA growth and now Pseudomonas growth. He will need additional antibiotics to cover for Pseudomonas. He was also seen by infectious disease this afternoon and ciprofloxacin was added. Various treatment options including oral and IV antibiotic options were discussed. It is also noted that he has other systemic illness consistent with potentially Covid or other source. He was referred to get a Covid test and further work-up at urgent care per Dr. Glass and evaluation today is appreciated. It is noted he is afebrile during his visit today. He is ready to proceed forward the below-knee amputation within the next couple weeks with Dr. Lopez. He understands his condition is limb and life threatening. He completed his surgical consultation. Updated labs (CBC, CMP, ESR, C-reactive protein, hemoglobin A1c), and right foot x-rays ordered. Labs from last week were reviewed with white blood cell count of 5.1, C-reactive protein 21.2, ESR 10. His updated A1c was 6.9%. Updated x-ray did not demonstrate soft tissue emphysema, foreign body, osseous destruction that is new. The ulcer is adjacent to the cuboid. To change dressing with Dakin wet-to-dry packing. His vascular status has been optimized with a recent drug coated balloon angioplasty of the femoral artery with Dr. Busch. To continue on Plavix and aspirin. To continue offloading with pillow boot while resting in bed and also CAM walker with limited heel touch during short household periods of ambulation. To use assistive device. To continue to improve glucose management. I recommend segundo or glucerna as a nutritional supplement. It is also noted he is on prednisone and this may be contributing to some of his delayed healing. His lower extremity edema is addressed today with bilateral Jem wrap application and an additional tubigrip (single layer). He was advised to perform intermittent elevation and lower extremity muscular contraction hourly. 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 A referral to Dr. Basali, pain management was already initiated. To return to clinic in 1 week due to new infection status. I answered all of his questions. [employer] speech recognition log sorting supervisor software was used to create portions of this document. Sound-alike and misspelled words, as well as other log sorting supervisor errors may be contained in the documentation. The medical decision making level is moderate. There is noted moderate risk of morbidity after considering this treatment plan and diagnostic data. Considerations were given to prescription management, decisions regarding surgical options, or social determinants of health. The medical decision making level is moderate based on data including at least three of the following: review of prior external notes, review of a test, ordering a test, assessment requiring an independent historian. The problems addressed require a moderate decision making level which includes one or more chronic illnesses (w/ exacerbation, progression, or side effects), two or more stable chronic illnesses, one undiagnosed new problem w/ uncertain prognosis, one acute illness with systemic symptoms, or one acute complicated injury.
[2020-12-15 13:21] VITALS: BP 132/54; PULSE 84; RESP 18; TEMP 36.6; BMI 28.1
--- NOTE | 2020-12-15 16:28 | PN.PCM_ITS ---
History of Present Illness Date of Service: 12/15/20 Chief Complaint: right foot ulcer with infection History of Wound: 75-year-old male with a left below knee amputation (prior healed wound) and right transmetatarsal amputation follows up for ulcer of lateral foot that has been infected. He reports he is ready to proceed forward with a below the knee amputation due to recurrence and ongoing infections. He reports decreased swelling and drainage and resolution of redness. He is on antibiotics. Last week he had some other systemic signs of illness and was evaluated with the urgent center and emergency room. He also had a Covid test done which was negative. He would like to confirm his surgical date with Dr. Lopez. Progress of Wound: infected Objective Data Objective Data Vital Signs: Vital Signs Temp Pulse Resp BP 98 F 84 18 132/54 H 12/15/20 13:21 12/15/20 13:21 12/15/20 13:21 12/15/20 13:21 Oxygen Delivery Method Room Air Weight: 88.451 kg Body Mass Index (BMI) 28.1 Lab / Micro Data Result Diagrams: 12/01/20 11:24 12/01/20 11:24 Micro: Microbiology 12/01/20 10:27 Ulcer, Decubitus - Right Foot Gram Stain - Final 12/01/20 10:27 Ulcer, Decubitus - Right Foot Wound Culture - Final Pseudomonas aeroginosa Meth. resistant Staph. aureus 12/01/20 10:27 Ulcer, Decubitus - Right Foot Anaerobic Culture - Final No anaerobic bacteria isolated. Physical Exam Const alert and oriented x3 General Appearance: cooperative and in distress HEENT normocephalic Extremity Extremity Narrative: No calf tenderness Diminished pulses Muscle wasting noted Left below-knee amputation Right transmetatarsal amputation Compartments remain soft to palpate bilateral. General Extremity: edema; Negative for cyanosis Skin Skin Narrative: Left: No skin discontinuity or infection. Skin is atrophic and hairless Right: No streaking, no odor. There is resolved erythema adjacent to the ulcer site with communication between all ulcers (3). There is decreased serosangeno us drainage (no purulence), and continued devitalized subcutaneous and tendon exposure. No eschar. Skin is atrophic and hairless. there is no odor General Skin Exam: Negative for erythema Neuro Neuro Narrative: lack of normal epicritic sensation via light touch is consistent with neuropathy status Psych cooperative and affect normal Debridement Note Debridement Note Post-Debridement Measurements and Additional Note: Post-Debridement Measurements/Treatment - Nurse 1 - General Ulcer Assessment Start: 12/01/20 10:04 Freq: Status: Active Protocol: GREG Activity Type Activity Date Activity User E-Sign Co-Sign Detail Recorded Client Recorded Date Recorded By Document 12/01/20 10:04 F [id number] 12/01/20 10:14 [facility] Document 12/06/20 13:10 [facility] [id number] 12/06/20 13:17 BM Document 12/08/20 13:07 [facility] [id number] 12/08/20 13:16 BM Document 12/15/20 13:21 [facility] [id number] 12/15/20 13:34 [facility] 12/01/20 12/06/20 12/08/20 10:04 13:10 13:07 - Today's Visit Information Type of service Follow-up Visit Follow-up Visit Follow-up Visit (Physician/INDUSTRIAL TECHNICIAN (Physician/INDUSTRIAL TECHNICIAN (Physician/INDUSTRIAL TECHNICIAN ) ) ) Arrival Mode Wheelchair Other Other Arrival Mode (Other) electric electric scooter scooter Transfer Assistance None Accompanied by Patient Identification Verified (Name & Yes Yes Yes ) Patient Requires Transmission-Based No No No Precautions Height and Weight Body Mass Index (BMI) 28.1 28.1 28.1 BMI Classification Overweight Overweight Overweight Vital Signs Temperature (97.8 F-99.1 F) 97.2 F L 97.3 F L 98.2 F Temperature Source Temporal Temporal Temporal Pulse Rate (60-100) 81 98 110 H Pulse Location Monitor Monitor Monitor Respiratory Rate (12-18) 18 16 16 Respiratory rate source Observation Observation Observation Oxygen Delivery Method Room Air Room Air Room Air Blood Pressure (90/60-120/80) 107/43 L 117/43 L 121/64 H Blood Pressure Mean (mm Hg) 64 67 83 Source Monitor Monitor Monitor Position Sitting Sitting Sitting Blood Pressure Location Left Arm Right Arm History Since Last Visit- (Skip if this is Patient's initial visit) Have you changed medications since your No No last visit? Any new allergies or adverse reactions No No Had a fall/change in ADL's that may No No increase risk of falls Signs or symptoms of abuse and/or No No neglect since last visit Have you been in the hospital since your No No last visit? Has dressing in place as prescribed Yes Yes Has compression in place as prescribed No Yes Has offloadiing in place as prescribed Yes Yes Experienced any changes in pain level or No No management Left Footwear Other Footwear Other Footwear (Comment) (Comment) Right Footwear Removable Cast Multipodus Walker/Walking Splint/Boot Boot Other Footwear left prosthesis left prosthesis Pain Scale: 0-10 Numeric Is Patient Pain Free? Yes Yes 12/15/20 13:21 WC - Today's Visit Information Type of service Follow-up Visit (Physician/INDUSTRIAL TECHNICIAN ) Arrival Mode Other Arrival Mode (Other) electric scooter Transfer Assistance None Accompanied by Patient Identification Verified (Name & Yes ) Patient Requires Transmission-Based No Precautions Height and Weight Body Mass Index (BMI) 28.1 BMI Classification Overweight Vital Signs Temperature (97.8 F-99.1 F) 98 F Temperature Source Temporal Pulse Rate (60-100) 84 Pulse Location Monitor Respiratory Rate (12-18) 18 Respiratory rate source Observation Oxygen Delivery Method Room Air Blood Pressure (90/60-120/80) 132/54 H Blood Pressure Mean (mm Hg) 80 Source Monitor Position Sitting Blood Pressure Location Left Arm History Since Last Visit- (Skip if this is Patient's initial visit) Have you changed medications since your No last visit? Any new allergies or adverse reactions No Had a fall/change in ADL's that may No increase risk of falls Signs or symptoms of abuse and/or No neglect since last visit Have you been in the hospital since your No last visit? Has dressing in place as prescribed Yes Has compression in place as prescribed N/A Has offloadiing in place as prescribed Yes Experienced any changes in pain level or No management Left Footwear Right Footwear Multipodus Splint/Boot Other Footwear Pain Scale: 0-10 Numeric Is Patient Pain Free? Yes - Nurse 1 - General Ulcer Measurement Start: 12/01/20 10:04 Freq: Status: Active Protocol: Activity Type Activity Date Activity User E-Sign Co-Sign Detail Recorded Client Recorded Date Recorded By Document 12/01/20 10:04 [facility] [id number] 12/01/20 10:14 BM Document 12/06/20 13:10 [facility] [id number] 12/06/20 13:17 BM Document 12/15/20 13:21 [facility] [id number] 12/15/20 13:34 [facility] 12/01/20 12/06/20 12/15/20 10:04 13:10 13:21 Wound Center Nurse 1 6-right lateral lower foot -Combined with other wound No No No -Current Size (cm) - Length 0.6 0.8 0.8 -Current Size (cm) - Width 1.2 0.7 0.6 -Current Size (cm) - Depth 0.6 0.3 0.8 -Total Square Cm 0.72 0.56 0.48 -Photo Taken No No No -Epithelialization None Present None Present None Present -Tunneling No No No -Undermining/Tunneling Yes No Yes -Undermining/Tunneling Starts (O'clock 5 12 ) -Undermining/Tunneling Ends (O'clock) 10 12 -Maximum Distance (cm) 0.5 0.3 -Circular Undermining No No Yes -Exudate Amt Medium Medium Medium -Exudate Type Serosanguineous Serosanguineous Serous -Wound Margin Distinct, Distinct, Distinct, Outline Outline Outline Attached Attached Attached -Granulation Amt Medium (34-66%) Medium (34-66%) Large (67-100%) -Granulation Quality Red Red Red -Slough/Fibrin Yes Yes Yes -Necrosis Amt Small (1-33%) Medium (34-66%) Small (1-33%) -Necrotic Tissue Type Adherent Slough Adherent Slough Adherent Slough -Texture (Allison-wound Skin Appearance) Assessed, Assessed, Assessed, Scarring Scarring Scarring -Moisture (Allison-wound Skin Appearance) Assessed, Assessed, Assessed Maceration Maceration -Color (Allison-wound Skin Appearance) Assessed,Palor Assessed, Assessed, Erythema,Palor Erythema -Temperature (Allison-wound Skin No Abnormality No Abnormality No Abnormality Appearance) (Pt Warm) (Pt Warm) (Pt Warm) -Tenderness on Palpation (Allison-wound Yes Yes Yes Skin Appearance) -Ulcer Cleansing soapy water Rinsed/ Rinsed/ Irrigated with Irrigated with Saline Saline -Foul Odor after Cleansing No No No -Anesthetic Used 5% Lidocaine 4% Lidocaine 4% Lidocaine Gel Solution Solution #3- R LAT FOOT -Combined with other wound No No No -Current Size (cm) - Length 1.7 4.9 4.5 -Current Size (cm) - Width 4.2 2.5 2.8 -Current Size (cm) - Depth 1 0.5 0.7 -Total Square Cm 7.14 12.25 12.60 -Photo Taken No No -Epithelialization None Present None Present None Present -Tunneling No No No -Undermining/Tunneling Yes Yes Yes -Undermining/Tunneling Starts (O'clock 6 7 7 ) -Undermining/Tunneling Ends (O'clock) 1 10 12 -Maximum Distance (cm) 3.4 2.2 2.8 -Circular Undermining No No -Exudate Amt Large Medium Medium -Exudate Type Serosanguineous Serosanguineous Serous -Wound Margin Thickened Distinct, Distinct, Outline Outline Attached Attached -Granulation Amt Large (67-100%) Medium (34-66%) Large (67-100%) -Granulation Quality Red Red Red -Slough/Fibrin Yes Yes Yes -Necrosis Amt Small (1-33%) Medium (34-66%) Small (1-33%) -Necrotic Tissue Type Adherent Slough Adherent Slough Adherent Slough -Texture (Allison-wound Skin Appearance) Assessed, Assessed, Assessed, Scarring Scarring Scarring -Moisture (Allison-wound Skin Appearance) Assessed, Assessed, Assessed Maceration Maceration -Color (Allison-wound Skin Appearance) Assessed,Palor Assessed, Assessed, Erythema,Palor Erythema -Temperature (Allison-wound Skin No Abnormality No Abnormality No Abnormality Appearance) (Pt Warm) (Pt Warm) (Pt Warm) -Tenderness on Palpation (Allison-wound Yes Yes Skin Appearance) -Ulcer Cleansing soapy water Rinsed/ Rinsed/ Irrigated with Irrigated with Saline Saline -Foul Odor after Cleansing No No -Anesthetic Used 5% Lidocaine 4% Lidocaine 4% Lidocaine Gel Solution Solution Lower Limb Edema Present Yes Right Calf (cm) 40 Right Ankle (cm) 24.5 WC - Nurse 2 - General Ulcer CM Notes Start: 12/01/20 10:04 Freq: Status: Active Protocol: Activity Type Activity Date Activity User E-Sign Co-Sign Detail Recorded Client Recorded Date Recorded By Document 12/01/20 10:24 ISAURA [id number] 12/01/20 10:38 ISAURA Document 12/06/20 13:40 ISAURA [id number] 12/06/20 13:46 Document 12/08/20 13:34 ISAURA [id number] 12/08/20 13:35 JF 12/01/20 12/06/20 12/08/20 10:24 13:40 13:34 Wound Center Nurse 2 6-right lateral lower foot -Time 10:36 13:44 -Correct Patient Yes Yes No -Correct Side, Site, Position Yes Yes No -Correct Procedure Yes Yes No -Procedure Performed Yes Yes No -Type of Procedure Debridement Debridement -Clinical Debridement Subcutaneous Subcutaneous -Tissue Removed Subcutaneous Subcutaneous -Post Debridement (cm) - Length 0.8 0.8 -Post Debridement (cm) - Width 1.2 0.8 -Post Debridement (cm) - Depth 0.6 0.3 -Total Square (Post) (cm) 0.96 0.64 -Area of Debridement (cm) - Length 0.8 0.8 -Area of Debridement (cm) - Width 1.2 0.8 -Total Square (Area) (cm) 0.96 0.64 -Tunneling No No -Undermining/Tunneling No No -Circular Undermining No No -Wound/Ulcer Outcome Not Healed Not Healed Not Healed -Ulcer Cleansing Rinsed/ Rinsed/ Irrigated with Irrigated with Saline Saline -Foul Odor after Cleansing No No -Bioengineered Tissue No No -Bleeding Controlled with Pressure Pressure -Offloading Yes No -Type of Offloading Knee Walker -Treatment Response Procedure Tolerated Well -Debridement - Subq, 1st 20sq cm Yes No #3- R LAT FOOT -Time 10:37 13:45 -Correct Patient Yes Yes No -Correct Side, Site, Position Yes Yes No -Correct Procedure Yes Yes No -Procedure Performed Yes Yes No -Type of Procedure Debridement Debridement -Clinical Debridement Subcutaneous Subcutaneous -Tissue Removed Subcutaneous Subcutaneous -Post Debridement (cm) - Length 1.8 5 -Post Debridement (cm) - Width 4.2 2.5 -Post Debridement (cm) - Depth 1 2.2 -Total Square (Post) (cm) 7.56 12.5 -Area of Debridement (cm) - Length 1.8 5 -Area of Debridement (cm) - Width 4.2 2.5 -Total Square (Area) (cm) 7.56 12.5 -Tunneling No No -Undermining/Tunneling No No -Circular Undermining No No -Wound/Ulcer Outcome Not Healed Not Healed Not Healed -Ulcer Cleansing Rinsed/ Rinsed/ Irrigated with Irrigated with Saline Saline -Foul Odor after Cleansing Yes, Due to No Product Use -Bioengineered Tissue No No -Bleeding Controlled with Pressure Pressure -Offloading Yes No -Type of Offloading Surgical Shoe -Treatment Response Procedure Procedure Tolerated Well Tolerated Well -Debridement - Subq, 1st 20sq cm No Yes Pain Scale: 0-10 Numeric Is Patient Pain Free? Yes Yes Yes WC - Nurse 3 - General Ulcer D/C NN Start: 12/01/20 10:04 Freq: Status: Active Protocol: Activity Type Activity Date Activity User E-Sign Co-Sign Detail Recorded Client Recorded Date Recorded By Document 12/01/20 13:57 RB [id number] 12/01/20 13:58 RB Document 12/06/20 13:59 KR [id number] 12/06/20 14:01 KR Document 12/08/20 14:34 RB Desktop 12/08/20 14:35 RB Document 12/15/20 14:49 KR [id number] 12/15/20 14:49 KR 12/01/20 12/06/20 12/08/20 13:57 13:59 14:34 Wound Care Nurse 3 6-right lateral lower foot -Ulcer Cleansing Rinsed/ Irrigated with Saline -Other Dressing betadine wet to dry saline moistened gauze -Primary Dressing Covered/Secured with Dry Gauze & Dry Gauze, Dry Gauze,Dry Roll Gauze, Secured with Gauze & Roll Secured with Tape Gauze,Secured Tape with Tape -Other Covering abd #3- R LAT FOOT -Other Dressing betadine wet to dry saline moistened gauze -Primary Dressing Covered/Secured with Dry Gauze & Dry Gauze, Dry Gauze,Dry Roll Gauze, Secured with Gauze & Roll Secured with Tape Gauze,Secured Tape with Tape Right -Tubular Bandage Single Layer -Size of Tubigrip Used Size F -Size F ($) 1 Treatment Response Procedure Procedure Tolerated Well Tolerated Well Pain Scale: 0-10 Numeric Is Patient Pain Free? Yes Yes Yes WC - Visit Discharge Discharge Condition Stable Stable Stable Ambulatory Status Wheelchair Wheelchair Wheelchair Transportation Private Auto Private Auto Private Auto Accompanied by Medication Reconcilliation completed & No No provided to patient/care provider Clinical Summary of Care Provided Yes Yes 12/15/20 14:49 Wound Care Nurse 3 6-right lateral lower foot -Ulcer Cleansing -Other Dressing -Primary Dressing Covered/Secured with Dry Gauze,Dry Gauze & Roll Gauze,Secured with Tape -Other Covering #3- R LAT FOOT -Other Dressing -Primary Dressing Covered/Secured with Dry Gauze,Dry Gauze & Roll Gauze,Secured with Tape Right -Tubular Bandage -Size of Tubigrip Used -Size F ($) Treatment Response Pain Scale: 0-10 Numeric Is Patient Pain Free? Yes WC - Visit Discharge Discharge Condition Stable Ambulatory Status Wheelchair Transportation Private Auto Accompanied by Medication Reconcilliation completed & provided to patient/care provider Clinical Summary of Care Provided Assessment/Plan Assessment/Plan (1) Ulcer of right lower extremity with fat layer exposed: CODE(S): L97.912 - Non-pressure chronic ulcer of unspecified part of right lower leg with fat layer exposed (2) Ulcer of right foot with muscle involvement without evidence of necrosis: CODE(S): L97.515 - Non-pressure chronic ulcer of other part of right foot with muscle involvement without evidence of necrosis (3) Cellulitis of right lower limb: CODE(S): L03.115 - Cellulitis of right lower limb (4) Osteomyelitis: CODE(S): M86.9 - Osteomyelitis, unspecified (5) Below-knee amputation of left lower extremity: CODE(S): S88.112A - Complete traumatic amputation at level between knee and ankle, left lower leg, initial encounter (6) Peripheral vascular disease: CODE(S): I73.9 - Peripheral vascular disease, unspecified (7) Malnutrition: CODE(S): E46 - Unspecified protein-calorie malnutrition (8) Amputation of right foot: CODE(S): S98.911A - Complete traumatic amputation of right foot, level unspecified, initial encounter (9) Type 2 diabetes mellitus with diabetic polyneuropathy: CODE(S): E11.42 - Type 2 diabetes mellitus with diabetic polyneuropathy (10) Delayed wound healing: CODE(S): T14.8XXD - Other injury of unspecified body region, subsequent encounter PLAN: I reviewed and discussed his case. He refused debridement today. He was reassured his foot looks more stable and his previous signs of local infection have resolved well. To continue antibiotics as recommended by infectious disease physician, Dr. Glass. Prior MRSA and Pseudomonas growth from culture results was noted. He is ready to proceed forward the below-knee amputation within the next couple weeks with Dr. Lopez. He understands his condition is limb and life threatening. He completed his surgical consultation. He was advised to contact his surgeon's office to confirm the date of the surgical procedure. Updated labs (CBC, CMP, ESR, C-reactive protein, hemoglobin A1c), and right foot x-rays ordered. Labs from last week were reviewed with white blood cell count of 5.1, C-reactive protein 21.2, ESR 10. His updated A1c was 6.9%. Updated x- ray did not demonstrate soft tissue emphysema, foreign body, osseous destruction that is new. The ulcer is adjacent to the cuboid. To change dressing with Dakin wet-to-dry packing. His vascular status has been optimized with a recent drug coated balloon angioplasty of the femoral artery with Dr. Busch. To continue on Plavix and aspirin. To continue offloading with pillow boot while resting in bed and also CAM walker with limited heel touch during short household periods of ambulation. To use assistive device. To continue to improve glucose management. I recommend segundo or glucerna as a nutritional supplement. It is also noted he is on prednisone and this may be contributing to some of his delayed healing. His lower extremity edema is addressed today with bilateral Jem wrap application and an additional tubigrip (single layer). He was advised to perform intermittent elevation and lower extremity muscular contraction hourly. 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 A referral to Dr. Whitman, pain management was already initiated. To return to clinic in 1 week due to new infection status. I answered all of his questions. Kodable speech recognition director surface transportation software was used to create portions of this document. Sound-alike and misspelled words, as well as other director surface transportation errors may be contained in the documentation. The medical decision making level is moderate. There is noted moderate risk of morbidity after considering this treatment plan and diagnostic data. Considerations were given to prescription management, decisions regarding surgical options, or social determinants of health. The problems addressed require a moderate decision making level which includes one or more chronic illnesses (w/ exacerbation, progression, or side effects), two or more stable chronic illnesses, one undiagnosed new problem w/ uncertain prognosis, one acute illness with systemic symptoms, or one acute complicated injury.
[2020-12-29 13:28] VITALS: BP 91/41; PULSE 68; RESP 18; TEMP 36.2; BMI 28.1
--- NOTE | 2020-12-29 14:18 | PN.PCM_ITS ---
History of Present Illness Date of Service: 12/29/20 Chief Complaint: right foot ulcer with infection History of Wound: 75-year-old male with a left below knee amputation (prior healed wound) and right transmetatarsal amputation follows up for ulcer of lateral foot that has been infected previously. He reports he is ready to proceed forward with a below the knee amputation due to recurrence and ongoing infections. He reports decreased swelling and drainage and resolution of redness. He has completed his antibiotic course. He is scheduled for a right below-knee amputation with Dr. Lopez 01-10-21. Progress of Wound: Stable and not infected Objective Data Objective Data Vital Signs: Vital Signs Temp Pulse Resp BP 97.1 F L 68 18 91/41 L 12/29/20 13:28 12/29/20 13:28 12/29/20 13:28 12/29/20 13:28 Oxygen Delivery Method Room Air Weight: 88.451 kg Body Mass Index (BMI) 28.1 Lab / Micro Data Result Diagrams: 12/01/20 11:24 12/01/20 11:24 Micro: Microbiology 12/01/20 10:27 Tissue Ulcer - Other Acid Fast Bacilli Smear - Final 12/01/20 10:27 Ulcer, Decubitus - Right Foot Gram Stain - Final 12/01/20 10:27 Ulcer, Decubitus - Right Foot Wound Culture - Final Pseudomonas aeroginosa Meth. resistant Staph. aureus 12/01/20 10:27 Ulcer, Decubitus - Right Foot Anaerobic Culture - Final No anaerobic bacteria isolated. Physical Exam Const alert and oriented x3 General Appearance: cooperative and in distress HEENT normocephalic Extremity Extremity Narrative: No calf tenderness Diminished pulses Muscle wasting noted Left below-knee amputation Right transmetatarsal amputation Compartments remain soft to palpate bilateral. General Extremity: edema; Negative for cyanosis Skin Skin Narrative: No streaking, no odor. There is resolved erythema adjacent to the ulcer site with communication between all ulcers (3). There is serosangenous drainage (no purulence), and continued devitalized subcutaneous and tendon exposure. No eschar. Skin is atrophic and hairless. there is no odor General Skin Exam: Negative for erythema Neuro Neuro Narrative: lack of normal epicritic sensation via light touch is consistent with neuropathy status Psych cooperative and affect normal Debridement Note Debridement Note Post-Debridement Measurements and Additional Note: Post-Debridement Measurements/Treatment WC - Nurse 1 - General Ulcer Assessment Start: 12/01/20 10:04 Freq: Status: Active Protocol: [email or web address] Activity Type Activity Date Activity User E-Sign Co-Sign Detail Recorded Client Recorded Date Recorded By Document 12/01/20 10:04 BMF [id number] 12/01/20 10:14 BMF Document 12/06/20 13:10 BM [id number] 12/06/20 13:17 BMF Document 12/08/20 13:07 BMF [id number] 12/08/20 13:16 BMF Document 12/15/20 13:21 BMF [id number] 12/15/20 13:34 BMF Document 12/29/20 13:28 DL [id number] 12/29/20 13:37 DL 12/01/20 12/06/20 12/08/20 10:04 13:10 13:07 WC - Today's Visit Information Type of service Follow-up Visit Follow-up Visit Follow-up Visit (Physician/JAVA GROOVY DEVELOPER (Physician/JAVA GROOVY DEVELOPER (Physician/JAVA GROOVY DEVELOPER ) ) ) Arrival Mode Wheelchair Other Other Arrival Mode (Other) electric electric scooter scooter Transfer Assistance None Accompanied by Patient Identification Verified (Name & Yes Yes Yes ) Patient Requires Transmission-Based No No No Precautions Finger Stick Blood Sugar(mg/dl) (if indicated): Blood Sugar Height and Weight Body Mass Index (BMI) 28.1 28.1 28.1 BMI Classification Overweight Overweight Overweight Vital Signs Temperature (97.8 F-99.1 F) 97.2 F L 97.3 F L 98.2 F Temperature Source Temporal Temporal Temporal Pulse Rate (60-100) 81 98 110 H Pulse Location Monitor Monitor Monitor Respiratory Rate (12-18) 18 16 16 Respiratory rate source Observation Observation Observation Oxygen Delivery Method Room Air Room Air Room Air Blood Pressure (90/60-120/80) 107/43 L 117/43 L 121/64 H Blood Pressure Mean (mm Hg) 64 67 83 Source Monitor Monitor Monitor Position Sitting Sitting Sitting Blood Pressure Location Left Arm Right Arm History Since Last Visit- (Skip if this is Patient's initial visit) Have you changed medications since your No No last visit? Any new allergies or adverse reactions No No Had a fall/change in ADL's that may No No increase risk of falls Signs or symptoms of abuse and/or No No neglect since last visit Have you been in the hospital since your No No last visit? Has dressing in place as prescribed Yes Yes Has compression in place as prescribed No Yes Has offloadiing in place as prescribed Yes Yes Experienced any changes in pain level or No No management Left Footwear Other Footwear Other Footwear (Comment) (Comment) Right Footwear Removable Cast Multipodus Walker/Walking Splint/Boot Boot Other Footwear left prosthesis left prosthesis Pain Scale: 0-10 Numeric Is Patient Pain Free? Yes Yes 12/15/20 12/29/20 13:21 13:28 - Today's Visit Information Type of service Follow-up Visit Follow-up Visit (Physician/JAVA GROOVY DEVELOPER (Physician/JAVA GROOVY DEVELOPER ) ) Arrival Mode Other Ambulatory Arrival Mode (Other) electric scooter Transfer Assistance None None Accompanied by Patient Identification Verified (Name & Yes Yes ) Patient Requires Transmission-Based No No Precautions Finger Stick Blood Sugar(mg/dl) (if 42 indicated): Blood Sugar Stated by Patient Height and Weight Body Mass Index (BMI) 28.1 28.1 BMI Classification Overweight Overweight Vital Signs Temperature (97.8 F-99.1 F) 98 F 97.1 F L Temperature Source Temporal Temporal Pulse Rate (60-100) 84 68 Pulse Location Monitor Monitor Respiratory Rate (12-18) 18 18 Respiratory rate source Observation Oxygen Delivery Method Room Air Blood Pressure (90/60-120/80) 132/54 H 91/41 L Blood Pressure Mean (mm Hg) 80 57 Source Monitor Monitor Position Sitting Blood Pressure Location Left Arm History Since Last Visit- (Skip if this is Patient's initial visit) Have you changed medications since your No No last visit? Any new allergies or adverse reactions No No Had a fall/change in ADL's that may No No increase risk of falls Signs or symptoms of abuse and/or No No neglect since last visit Have you been in the hospital since your No No last visit? Has dressing in place as prescribed Yes Yes Has compression in place as prescribed N/A Has offloadiing in place as prescribed Yes Experienced any changes in pain level or No management Left Footwear Right Footwear Multipodus Removable Cast Splint/Boot Walker/Walking Boot Other Footwear Pain Scale: 0-10 Numeric Is Patient Pain Free? Yes Yes - Nurse 1 - General Ulcer Measurement Start: 12/01/20 10:04 Freq: Status: Active Protocol: Activity Type Activity Date Activity User E-Sign Co-Sign Detail Recorded Client Recorded Date Recorded By Document 12/01/20 10:04 [facility] [id number] 12/01/20 10:14 [facility] Document 12/06/20 13:10 [facility] [id number] 12/06/20 13:17 BM Document 12/15/20 13:21 BMF [id number] 12/15/20 13:34 BM Document 12/29/20 13:28 DL [id number] 12/29/20 13:37 DL 12/01/20 12/06/20 12/15/20 10:04 13:10 13:21 Wound Center Nurse 1 6-right lateral lower foot -Combined with other wound No No No -Current Size (cm) - Length 0.6 0.8 0.8 -Current Size (cm) - Width 1.2 0.7 0.6 -Current Size (cm) - Depth 0.6 0.3 0.8 -Total Square Cm 0.72 0.56 0.48 -Photo Taken No No No -Epithelialization None Present None Present None Present -Tunneling No No No -Undermining/Tunneling Yes No Yes -Undermining/Tunneling Starts (O'clock 5 12 ) -Undermining/Tunneling Ends (O'clock) 10 12 -Maximum Distance (cm) 0.5 0.3 -Circular Undermining No No Yes -Exudate Amt Medium Medium Medium -Exudate Type Serosanguineous Serosanguineous Serous -Wound Margin Distinct, Distinct, Distinct, Outline Outline Outline Attached Attached Attached -Granulation Amt Medium (34-66%) Medium (34-66%) Large (67-100%) -Granulation Quality Red Red Red -Slough/Fibrin Yes Yes Yes -Necrosis Amt Small (1-33%) Medium (34-66%) Small (1-33%) -Necrotic Tissue Type Adherent Slough Adherent Slough Adherent Slough -Structure Exposed -Texture (Allison-wound Skin Appearance) Assessed, Assessed, Assessed, Scarring Scarring Scarring -Moisture (Allison-wound Skin Appearance) Assessed, Assessed, Assessed Maceration Maceration -Color (Allison-wound Skin Appearance) Assessed,Palor Assessed, Assessed, Erythema,Palor Erythema -Temperature (Allison-wound Skin No Abnormality No Abnormality No Abnormality Appearance) (Pt Warm) (Pt Warm) (Pt Warm) -Tenderness on Palpation (Allison-wound Yes Yes Yes Skin Appearance) -Ulcer Cleansing soapy water Rinsed/ Rinsed/ Irrigated with Irrigated with Saline Saline -Foul Odor after Cleansing No No No -Anesthetic Used 5% Lidocaine 4% Lidocaine 4% Lidocaine Gel Solution Solution #3- R LAT FOOT -Combined with other wound No No No -Current Size (cm) - Length 1.7 4.9 4.5 -Current Size (cm) - Width 4.2 2.5 2.8 -Current Size (cm) - Depth 1 0.5 0.7 -Total Square Cm 7.14 12.25 12.60 -Photo Taken No No -Epithelialization None Present None Present None Present -Tunneling No No No -Undermining/Tunneling Yes Yes Yes -Undermining/Tunneling Starts (O'clock 6 7 7 ) -Undermining/Tunneling Ends (O'clock) 1 10 12 -Maximum Distance (cm) 3.4 2.2 2.8 -Circular Undermining No No -Exudate Amt Large Medium Medium -Exudate Type Serosanguineous Serosanguineous Serous -Wound Margin Thickened Distinct, Distinct, Outline Outline Attached Attached -Granulation Amt Large (67-100%) Medium (34-66%) Large (67-100%) -Granulation Quality Red Red Red -Slough/Fibrin Yes Yes Yes -Necrosis Amt Small (1-33%) Medium (34-66%) Small (1-33%) -Necrotic Tissue Type Adherent Slough Adherent Slough Adherent Slough -Structure Exposed -Texture (Allison-wound Skin Appearance) Assessed, Assessed, Assessed, Scarring Scarring Scarring -Moisture (Allison-wound Skin Appearance) Assessed, Assessed, Assessed Maceration Maceration -Color (Allison-wound Skin Appearance) Assessed,Palor Assessed, Assessed, Erythema,Palor Erythema -Temperature (Allison-wound Skin No Abnormality No Abnormality No Abnormality Appearance) (Pt Warm) (Pt Warm) (Pt Warm) -Tenderness on Palpation (Allison-wound Yes Yes Skin Appearance) -Ulcer Cleansing soapy water Rinsed/ Rinsed/ Irrigated with Irrigated with Saline Saline -Foul Odor after Cleansing No No -Anesthetic Used 5% Lidocaine 4% Lidocaine 4% Lidocaine Gel Solution Solution Lower Limb Edema Present Yes Right Calf (cm) 40 Right Ankle (cm) 24.5 12/29/ 13:28 Wound Center Nurse 1 6-right lateral lower foot -Combined with other wound -Current Size (cm) - Length 0.6 -Current Size (cm) - Width 0.6 -Current Size (cm) - Depth 1 -Total Square Cm 0.36 -Photo Taken No -Epithelialization -Tunneling -Undermining/Tunneling -Undermining/Tunneling Starts (O'clock ) -Undermining/Tunneling Ends (O'clock) -Maximum Distance (cm) -Circular Undermining -Exudate Amt Medium -Exudate Type Serosanguineous -Wound Margin Distinct, Outline Attached -Granulation Amt None Present (0 %) -Granulation Quality -Slough/Fibrin -Necrosis Amt Medium (34-66%) -Necrotic Tissue Type Adherent Slough -Structure Exposed N/A -Texture (Allison-wound Skin Appearance) Scarring -Moisture (Allison-wound Skin Appearance) Maceration -Color (Allison-wound Skin Appearance) Mottled -Temperature (Allison-wound Skin No Abnormality Appearance) (Pt Warm) -Tenderness on Palpation (Allison-wound No Skin Appearance) -Ulcer Cleansing Wound Cleanser -Foul Odor after Cleansing No -Anesthetic Used 4% Lidocaine Solution #3- R LAT FOOT -Combined with other wound -Current Size (cm) - Length 3.8 -Current Size (cm) - Width 3.2 -Current Size (cm) - Depth 1.1 -Total Square Cm 12.16 -Photo Taken No -Epithelialization -Tunneling -Undermining/Tunneling -Undermining/Tunneling Starts (O'clock ) -Undermining/Tunneling Ends (O'clock) -Maximum Distance (cm) -Circular Undermining -Exudate Amt Medium -Exudate Type Serosanguineous -Wound Margin Distinct, Outline Attached -Granulation Amt Large (67-100%) -Granulation Quality Red -Slough/Fibrin -Necrosis Amt Small (1-33%) -Necrotic Tissue Type Adherent Slough -Structure Exposed N/A -Texture (Allison-wound Skin Appearance) Scarring -Moisture (Allison-wound Skin Appearance) Maceration -Color (Allison-wound Skin Appearance) Hemosiderin Staining -Temperature (Allison-wound Skin No Abnormality Appearance) (Pt Warm) -Tenderness on Palpation (Allison-wound No Skin Appearance) -Ulcer Cleansing Wound Cleanser -Foul Odor after Cleansing No -Anesthetic Used 4% Lidocaine Solution Lower Limb Edema Present Right Calf (cm) Right Ankle (cm) WC - Nurse 2 - General Ulcer CM Notes Start: 12/01/20 10:04 Freq: Status: Active Protocol: Activity Type Activity Date Activity User E-Sign Co-Sign Detail Recorded Client Recorded Date Recorded By Document 12/01/20 10:24 [id number] 12/01/20 10:38 Document 12/06/20 13:40 [id number] 12/06/20 13:46 Document 12/08/20 13:34 [id number] 12/08/20 13:35 Document 12/29/20 13:56 [id number] 12/29/20 14:02 12/01/20 12/06/20 12/08/20 10:24 13:40 13:34 Wound Center Nurse 2 6-right lateral lower foot -Time 10:36 13:44 -Correct Patient Yes Yes No -Correct Side, Site, Position Yes Yes No -Correct Procedure Yes Yes No -Procedure Performed Yes Yes No -Type of Procedure Debridement Debridement -Clinical Debridement Subcutaneous Subcutaneous -Tissue Removed Subcutaneous Subcutaneous -Post Debridement (cm) - Length 0.8 0.8 -Post Debridement (cm) - Width 1.2 0.8 -Post Debridement (cm) - Depth 0.6 0.3 -Total Square (Post) (cm) 0.96 0.64 -Area of Debridement (cm) - Length 0.8 0.8 -Area of Debridement (cm) - Width 1.2 0.8 -Total Square (Area) (cm) 0.96 0.64 -Tunneling No No -Undermining/Tunneling No No -Circular Undermining No No -Wound/Ulcer Outcome Not Healed Not Healed Not Healed -Ulcer Cleansing Rinsed/ Rinsed/ Irrigated with Irrigated with Saline Saline -Foul Odor after Cleansing No No -Bioengineered Tissue No No -Bleeding Controlled with Pressure Pressure -Offloading Yes No -Type of Offloading Knee Walker -Treatment Response Procedure Tolerated Well -Debridement - Subq, 1st 20sq cm Yes No #3- R LAT FOOT -Time 10:37 13:45 -Correct Patient Yes Yes No -Correct Side, Site, Position Yes Yes No -Correct Procedure Yes Yes No -Procedure Performed Yes Yes No -Type of Procedure Debridement Debridement -Clinical Debridement Subcutaneous Subcutaneous -Tissue Removed Subcutaneous Subcutaneous -Post Debridement (cm) - Length 1.8 5 -Post Debridement (cm) - Width 4.2 2.5 -Post Debridement (cm) - Depth 1 2.2 -Total Square (Post) (cm) 7.56 12.5 -Area of Debridement (cm) - Length 1.8 5 -Area of Debridement (cm) - Width 4.2 2.5 -Total Square (Area) (cm) 7.56 12.5 -Tunneling No No -Undermining/Tunneling No No -Circular Undermining No No -Wound/Ulcer Outcome Not Healed Not Healed Not Healed -Ulcer Cleansing Rinsed/ Rinsed/ Irrigated with Irrigated with Saline Saline -Foul Odor after Cleansing Yes, Due to No Product Use -Bioengineered Tissue No No -Bleeding Controlled with Pressure Pressure -Offloading Yes No -Type of Offloading Surgical Shoe -Treatment Response Procedure Procedure Tolerated Well Tolerated Well -Debridement - Subq, 1st 20sq cm No Yes Pain Scale: 0-10 Numeric Is Patient Pain Free? Yes Yes Yes 12/29/20 13:56 Wound Center Nurse 2 6-right lateral lower foot -Time -Correct Patient No -Correct Side, Site, Position No -Correct Procedure No -Procedure Performed No -Type of Procedure -Clinical Debridement -Tissue Removed -Post Debridement (cm) - Length -Post Debridement (cm) - Width -Post Debridement (cm) - Depth -Total Square (Post) (cm) -Area of Debridement (cm) - Length -Area of Debridement (cm) - Width -Total Square (Area) (cm) -Tunneling -Undermining/Tunneling -Circular Undermining -Wound/Ulcer Outcome Not Healed -Ulcer Cleansing -Foul Odor after Cleansing -Bioengineered Tissue -Bleeding Controlled with -Offloading -Type of Offloading -Treatment Response -Debridement - Subq, 1st 20sq cm #3- R LAT FOOT -Time -Correct Patient No -Correct Side, Site, Position No -Correct Procedure No -Procedure Performed No -Type of Procedure -Clinical Debridement -Tissue Removed -Post Debridement (cm) - Length -Post Debridement (cm) - Width -Post Debridement (cm) - Depth -Total Square (Post) (cm) -Area of Debridement (cm) - Length -Area of Debridement (cm) - Width -Total Square (Area) (cm) -Tunneling -Undermining/Tunneling -Circular Undermining -Wound/Ulcer Outcome Not Healed -Ulcer Cleansing -Foul Odor after Cleansing -Bioengineered Tissue -Bleeding Controlled with -Offloading -Type of Offloading -Treatment Response -Debridement - Subq, 1st 20sq cm Pain Scale: 0-10 Numeric Is Patient Pain Free? Yes WC - Nurse 3 - General Ulcer D/C NN Start: 12/01/20 10:04 Freq: Status: Active Protocol: Activity Type Activity Date Activity User E-Sign Co-Sign Detail Recorded Client Recorded Date Recorded By Document 12/01/20 13:57 RB [id number] 12/01/20 13:58 RB Document 12/06/20 13:59 KR [id number] 12/06/20 14:01 KR Document 12/08/20 14:34 RB Desktop 12/08/20 14:35 RB Document 12/15/20 14:49 KR [id number] 12/15/20 14:49 KR 12/01/20 12/06/20 12/08/20 13:57 13:59 14:34 Wound Care Nurse 3 6-right lateral lower foot -Ulcer Cleansing Rinsed/ Irrigated with Saline -Other Dressing betadine wet to dry saline moistened gauze -Primary Dressing Covered/Secured with Dry Gauze & Dry Gauze, Dry Gauze,Dry Roll Gauze, Secured with Gauze & Roll Secured with Tape Gauze,Secured Tape with Tape -Other Covering abd #3- R LAT FOOT -Other Dressing betadine wet to dry saline moistened gauze -Primary Dressing Covered/Secured with Dry Gauze & Dry Gauze, Dry Gauze,Dry Roll Gauze, Secured with Gauze & Roll Secured with Tape Gauze,Secured Tape with Tape Right -Tubular Bandage Single Layer -Size of Tubigrip Used Size F -Size F ($) 1 Treatment Response Procedure Procedure Tolerated Well Tolerated Well Pain Scale: 0-10 Numeric Is Patient Pain Free? Yes Yes Yes WC - Visit Discharge Discharge Condition Stable Stable Stable Ambulatory Status Wheelchair Wheelchair Wheelchair Transportation Private Auto Private Auto Private Auto Accompanied by Medication Reconcilliation completed & No No provided to patient/care provider Clinical Summary of Care Provided Yes Yes 12/15/20 14:49 Wound Care Nurse 3 6-right lateral lower foot -Ulcer Cleansing -Other Dressing -Primary Dressing Covered/Secured with Dry Gauze,Dry Gauze & Roll Gauze,Secured with Tape -Other Covering #3- R LAT FOOT -Other Dressing -Primary Dressing Covered/Secured with Dry Gauze,Dry Gauze & Roll Gauze,Secured with Tape Right -Tubular Bandage -Size of Tubigrip Used -Size F ($) Treatment Response Pain Scale: 0-10 Numeric Is Patient Pain Free? Yes WC - Visit Discharge Discharge Condition Stable Ambulatory Status Wheelchair Transportation Private Auto Accompanied by Medication Reconcilliation completed & provided to patient/care provider Clinical Summary of Care Provided Assessment/Plan Assessment/Plan (1) Ulcer of right foot with muscle involvement without evidence of necrosis: CODE(S): L97.515 - Non-pressure chronic ulcer of other part of right foot with muscle involvement without evidence of necrosis (2) Cellulitis of right lower limb: CODE(S): L03.115 - Cellulitis of right lower limb (3) Osteomyelitis: CODE(S): M86.9 - Osteomyelitis, unspecified (4) Below-knee amputation of left lower extremity: CODE(S): S88.112A - Complete traumatic amputation at level between knee and ankle, left lower leg, initial encounter (5) Peripheral vascular disease: CODE(S): I73.9 - Peripheral vascular disease, unspecified (6) Malnutrition: CODE(S): E46 - Unspecified protein-calorie malnutrition (7) Amputation of right foot: CODE(S): S98.911A - Complete traumatic amputation of right foot, level unspecified, initial encounter (8) Type 2 diabetes mellitus with diabetic polyneuropathy: CODE(S): E11.42 - Type 2 diabetes mellitus with diabetic polyneuropathy (9) Delayed wound healing: CODE(S): T14.8XXD - Other injury of unspecified body region, subsequent encounter PLAN: I reviewed and discussed his case. He refused debridement today. He was reassured his foot looks more stable and his previous signs of local infection have resolved well. He completed antibiotics as recommended by infectious disease physician, Dr. Glass. Prior MRSA and Pseudomonas growth from culture results was noted. Additional antibiotics are not recommended at this time. He is ready to proceed forward the below-knee amputation within the next couple weeks with Dr. Lopez on 01/10/21. He understands his condition is limb and life threatening. Prior updated labs (CBC, CMP, ESR, C-reactive protein, hemoglobin A1c), and right foot x-rays ordered. Labs from last week were reviewed with white blood cell count of 5.1, C-reactive protein 21.2, ESR 10. His updated A1c was 6.9%. Updated x-ray did not demonstrate soft tissue emphysema, foreign body, osseous destruction that is new. The ulcer is adjacent to the cuboid. To change dressing with Dakin wet-to-dry packing. His vascular status has been optimized with a recent drug coated balloon angioplasty of the femoral artery with Dr. Busch. To continue on Plavix and aspirin. To continue offloading with pillow boot while resting in bed and also CAM walker with limited heel touch during short household periods of ambulation. To use assistive device. To continue to improve glucose management. I recommend segundo or glucerna as a nutritional supplement. It is also noted he is on prednisone and this may be contributing to some of his delayed healing. His lower extremity edema is addressed today with bilateral Jem wrap application and an additional tubigrip (single layer). He was advised to perform intermittent elevation and lower extremity muscular contraction hourly. 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 A referral to Dr. Whitman, pain management was already provided. Advised I answered all of his questions. To follow-up with Dr. Smith after surgery. [employer] speech recognition chocolate production machine operator software was used to create portions of this document. Sound-alike and misspelled words, as well as other chocolate production machine operator errors may be contained in the documentation. The medical decision making level is low. There is noted low risk of morbidity after considering this treatment plan and diagnostic data. The problems addressed require a low medical decision making level which includes two or more minor problems, a stable chronic illness, or an acute uncomplicated illness or injury.
== END 2020-12-29 23:59 ==
LOC: WC 13:30
PROVIDERS: PCP Family Medicine; Referring Provider Family Medicine; Visit Provider Podiatrist
DX: E11.621 Type 2 diabetes mellitus with foot ulcer (principal); L97.512 Non-pressure chronic ulcer of other part of right foot with fat layer exposed; L03.115 Cellulitis of right lower limb; E11.42 Type 2 diabetes mellitus with diabetic polyneuropathy; E11.51 Type 2 diabetes mellitus with diabetic peripheral angiopathy without gangrene; B96.5 Pseudomonas (aeruginosa) (mallei) (pseudomallei) as the cause of diseases classified elsewhere; M86.171 Other acute osteomyelitis, right ankle and foot; B95.62 Methicillin resistant Staphylococcus aureus infection as the cause of diseases classified elsewhere; J44.9 Chronic obstructive pulmonary disease, unspecified; I25.10 Atherosclerotic heart disease of native coronary artery without angina pectoris; I25.5 Ischemic cardiomyopathy; G47.33 Obstructive sleep apnea (adult) (pediatric); Z89.512 Acquired absence of left leg below knee; Z95.810 Presence of automatic (implantable) cardiac defibrillator; Z87.891 Personal history of nicotine dependence; Z79.899 Other long term (current) drug therapy; Z79.52 Long term (current) use of systemic steroids; Z79.4 Long term (current) use of insulin; Z79.02 Long term (current) use of antithrombotics/antiplatelets; Z95.1 Presence of aortocoronary bypass graft
CPT/HCPCS: 11042; 36415; 73630; 80053; 83036; 85025; 85652; 86140; 87015; 87070; 87075; 87077; 87101; 87116; 87186; 87205; 87206; 99213; G0463

== ENCOUNTER 2021-01-10 19:22 | Inpatient (IN) | payer MEDICARE, OTHER, SELFPAY ==
[2020-12-30 00:20] VITALS: BMI 24.8
[2021-01-10] VITALS (19 sets, daily range): BP systolic 97–123; BP diastolic 51–74; PULSE 60–81; RESP 12–20; TEMP 36–36.8; O2SAT 94–100; BMI 26.1
[2021-01-10 07:01] LABS: Bedside Glucose 114 mg/dL (70-110)
[2021-01-10 07:44] LABS: Thyroid Stim Hormone (TSH) 1.86 uIU/mL (0.358-3.74)
--- NOTE | 2021-01-10 07:46 | HP.PCM_ITS ---
History and Physical Date of Admission: 01/10/21 HISTORY OF PRESENT ILLNESS 75-year-old male is [facility] for nonhealing infected MRSA diabetic ulcers right lateral foot with osteomyelitis. He underwent revisional 4th and 5th metatarsal resections with Dr. Shah in August,. Culture showed MRSA. He was treated with IV Vancomycin for 6 weeks. Pathology showed acute osteomyelitis. He had another culture done on 12/01/20. It showed MRSA and Pseudomonas aeroginosa. He was started on Doxycycline and the Pseudomonas is sensitive to Levaquin. Wound care is currently being done with Dakin's dressing changes. His vascular status has been optimized with a recent drug coated balloon angiopl asty of the femoral artery with Dr. Busch. To continue on Plavix and aspirin. His HgbA1c from 12/01/20 was 6.9. He reports he is ready to proceed forward with a below the knee amputation due to recurrence and ongoing infections. I was asked to evaluate this patient for surgical options for treatment. PAST MEDICAL HISTORY Amputation of right foot Biventricular implantable cardioverter-defibrillator (ICD) in situ COPD (chronic obstructive pulmonary disease) Coronary artery disease involving salamatof coronary artery of salam[place]of heart Delayed wound healing Diabetes mellitus type 2 with atherosclerosis of arteries of extremities Diaphragm paralysis Former smoker Glaucoma Ischemic cardiomyopathy Malnutrition 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 Other specified peripheral vascular diseases Peripheral vascular disease Peripheral vascular disease due to secondary diabetes Pseudomonas aeruginosa infection Status post below-knee amputation of left lower 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 Wears hearing aid in both ears PAST SURGICAL HISTORY amputation of toe bilateral cataract extraction cholecystectomy coronary artery bypass graft (~2003) coronary artery stent placement (~03/2019) endoscopy left below knee amputation (~2014) permanent cardiac pacemaker (~08/2020) MEDICATIONS acetaminophen levothyroxine omeprazole prednisone aspirin insulin glargine insulin regular human clopidogrel pravastatin ipratropium bromide ammonium lactate metoprolol succinate lisinopril furosemide magnesium chloride metolazone oxycodone-acetaminophen tizanidine doxycycline hyclate ALLERGIES FAMILY HISTORY Sister - Diabetes Mother - Heart disease, Valve replacement Father - Diabetes SOCIAL HISTORY Smoking Status: Former smoker quit date: 07/02/98 pack-years: 34 alcohol intake: current alcohol intake frequency: holidays/special occasions only substance use type: does not use REVIEW OF SYSTEMS Constitutional: Reports: Chills, Malaise, Weakness, Fatigue. Denies: Anorexia, Fever, Night Sweats, Weight Change Eyes: Denies: Blurred vision HEENT: Denies: Head Aches, Sinus Congestion, Sinus Drainage Cardiovascular: Denies: Chest Pain, Palpitations Respiratory: Denies: Cough, Shortness of Breath, Shortness of breath at rest, Shortness of breath upon exertion, Sputum production Gastrointestinal: Denies: Abdominal Pain, Nausea, Vomiting Genitourinary: Denies: Dysuria Musculoskeletal: Reports: Foot Pain. Denies: Joint Pain, Joint Tenderness Skin: Reports: Wounds. Denies: Rash Neurological: Denies: Numbness, Tingling, Focal weakness Psychiatric: Denies: Anxiety, Depression, Homicidal Ideations, Suicidal Ideations Hematologic/ Lymphatic: Denies: Easy Bruising, Easy Bleeding PHYSICAL EXAMINATION General: Alert, Oriented x3. HEENT: PERRLA, EOMI. Oral: Dry Mucosa Neck: Supple, Nontender. No cervical adenopathy. Lungs: - - diminished breath sounds bilaterally. Cardiovascular: Regular rate and rhythm. Abdomen: Soft, Non-Distended. Extremities: No clubbing, No cyanosis, No edema, Capillary Refill Less than 3 Seconds. Has two nonhealing diabetic ulcers right lateral foot. Has healed transmetatarsal amputation incision right foot. Mild swelling noted. Some granulation tissue seen. Has rosa-ulcer callus formation. There is some undermining present about 2 cm. No purulent drainage noted. Dorsalis pedis pulses are decreased. Has a left BKA stump. There is mild tenderness on lateral aspect of stump. It appears as though the fibula is a little longer than the tibia. The tenderness is over the fibula. He states the area does blister at times. Today there is no blister formation. No evidence of infection. Lymphatic: No Cervical, axillary, or Inguinal Adenopathy Neurological: Cranial nerves II-XII grossly intact. Psych/Mental Status: Normal Affect, Appropriate, Alert and oriented to time, place, person, mood and affect. ASSESSMENT (1) Non-pressure chronic ulcer of other part of right foot with fat layer exposed. (2) Osteomyelitis. (3) MRSA (methicillin resistant Staphylococcus aureus) infection. (4) Pseudomonas aeruginosa infection. (5) Status post transmetatarsal amputation of right foot. (6) Status post below-knee amputation of left lower extremity. (7) Peripheral vascular disease. (8) Type 2 diabetes mellitus with diabetic polyneuropathy. (9) Former smoker. PLAN Right foot x-ray reviewed. Cultures reviewed and Lab studies reviewed. Continue Dakin's dressing changes daily. Continue Doxycycline for the MRSA and the Pseudomonas aeroginosa is sensitive to Levaquin. Previous surgery notes and Wound Center notes reviewed. He is having recurrent infections with MRSA and has underlying osteomyelitis. With his history of diabetes mellitus, he is at risk for an acute exacerbation of his infections that could spread proximally at which time a BKA may no longer be an option. Therefore I recommend a BKA at this time before further infection potentially may compromise a BKA and force an AKA. The rehab and prosthesis are better with a BKA. Surgery will be done under general anesthesia with a surgical observation overnight stay in the hospital. He will have a drain in for 10-14 days. Sutures will be removed in 2-3 weeks. Tissue and bone will be sent to Pathology to evaluate for osteomyelitis and to Microbiology for culture. A positive culture will necessitate antibiotic therapy. Depending on the culture IV antibiotics may be necessary through a PICC line. Since a right BKA would make him a double amputee, it would be difficult to send him home after surgery. I would have him evaluated for the Rehab Unit or the Transitional Care Unit until he is ready to be discharged home. Will schedule the surgery in the next couple of weeks. His HgbA1c from 12/01/20 was 6.9. For the surgery, his level needs to be less than 8. Patient was informed of the risks and complications of the procedure including alternatives to surgery. These were discussed with the patient personally. Patient voices understanding and wishes to proceed. Potential risks and complications included but not inclusive of bleeding, infection, seroma, hematoma, bruising, swelling, prolonged need for drains, loss of sensation to skin, partial or complete loss of skin flap, wound breakdown, need for wound care, poor scarring, poor aesthetic outcome, intra operative cardiac or neurologic events, DVT, PE, and reaction to anesthesia. He voices understanding and wishes to proceed. His questions were answered personally and to his satisfaction. Patient also has pain in his left BKA stump laterally where the fibula appears to be a little longer than the tibia. After healing of his right BKA stump, can then address his left BKA stump. I'm concerned that if nothing is done, the bone may erode through the skin. A stump revision would entail shortening the fibula. Soft tissue revision may also be necessary. Patient was agreeable to this plan.
--- NOTE | 2021-01-10 08:30 | AMP_PTH ---
PATIENT: KURT JEONG LOC: MS3 U#:[id number] AGE/SX: 75/M ROOM: [facility] [place] RE01/10/[address]: Dr. Manan Lopez MD : [id number] BED: 1 DIS: 01/12/2021 SPEC #: [id number] RECD: 01/10/21 11:53 STATUS: RAHUL REKelsea #: [id number] ALVARO: 01/10/21 08:[address]: Manan Lopez DEPT: SURGICAL PATHOLOGY RECD BY: Destiny Delgado ENTERED: 01/10/21 12:04 SP TYPE: Amputation OTHR DR: Dr. Jcarlos Glasgow MD Tissues: Leg, NOS Procedures: Decalcification bone/plaque Surgery Specimen Level V HEADER OPERATION: Below knee amputation PRE-OP DIAGNOSIS: Osteomyelitis, nonpressure chronic ulcer of right foot TISSUE SUBMITTED: Right leg below knee amputation MICROSCOPIC DIAGNOSIS Right below the knee amputation: Skin and soft tissue at margin of resection with no significant pathologic change. Anterior tibial artery with calcific atherosclerosis. Posterior tibial artery with moderately severe calcific arteriosclerosis. Skin and soft tissue of lateral foot with ulceration, acute and chronic inflammation and granulation. Bone at ulcer base with reparative, reactive and chronic change. AM:julieta 01/13/2021 MICROSCOPIC DESCRIPTION Slides are reviewed. GROSS DESCRIPTION Received in fixative is one container labeled with the patient's name and designated right below knee amputation. The specimen consists of a right below the knee amputation specimen measuring 16.5 cm from stump to heel and 30 cm from heel to soft tissue margin of excision. A 2 cm segment of grossly unremarkable tibia and a 5 cm segment of grossly unremarkable fibula extend beyond the soft tissue margin of resection. The foot is transected in the mid tarsal fashion with a well-healed scar. No toes are identified. Three areas of ulceration are identified on the lateral aspect of the foot ranging in size from 0.8 to 2.5 cm. The skin, bone and soft tissue margins of excision are grossly unremarkable. Serial sections of the anterior and posterior tibial arteries reveal atherosclerotic changes. Lead Based Paint Technician sections are submitted in six cassettes as follows: 1 - skin, soft tissue and marrow at margin of resection, 2 - anterior tibial artery, 3 - posterior tibial artery, 4 - smallest cutaneous ulcer with adjacent soft tissue, 5 - second largest cutaneous ulcer with adjacent soft tissue, 6 ? largest cutaneous ulcer with underlying bone. Note, cassettes 2, 3 & 6 are submitted after decalcification. / AM:julieta 01/10/21 TC:3 CPT: 08626, 76990
[2021-01-10] MEDS: Lidocaine 1% /Epi 1:100 (50ml) 50 ML VIAL (09:34)
[2021-01-10] MEDS: Mupirocin Ointment 22gm Tube 1 APPLIC (11:32)
--- NOTE | 2021-01-10 12:47 | OP.PCM_ITS ---
Problems Associated Problem List Diagnoses (1) Non-pressure chronic ulcer of other part of right foot with fat layer exposed: (2) MRSA (methicillin resistant Staphylococcus aureus) infection: (3) Pseudomonas aeruginosa infection: (4) Osteomyelitis: (5) Status post transmetatarsal amputation of right foot: (6) Status post below-knee amputation of left lower extremity: (7) Peripheral vascular disease: (8) Type 2 diabetes mellitus with diabetic polyneuropathy: (9) Former smoker: Report of Operation Date of Procedure: 01/10/21 Pre-Operative Diagnosis: (1) Osteomyelitis: CODE(S): M86.9 - Osteomyelitis, unspecified (2) Non-pressure chronic ulcer of other part of right foot with fat layer exposed: CODE(S): L97.512 - Non-pressure chronic ulcer of other part of right foot with fat layer exposed (3) MRSA (methicillin resistant Staphylococcus aureus) infection: CODE(S): A49.02 - Methicillin resistant Staphylococcus aureus infection, unspecified site (4) Status post transmetatarsal amputation of right foot: CODE(S): Z89.431 - Acquired absence of right foot (5) Status post below-knee amputation of left lower extremity: CODE(S): Z89.512 - Acquired absence of left leg below knee (6) Peripheral vascular disease: CODE(S): I73.9 - Peripheral vascular disease, unspecified (7) Type 2 diabetes mellitus with diabetic polyneuropathy: CODE(S): E11.42 - Type 2 diabetes mellitus with diabetic polyneuropathy (8) Pseudomonas aeruginosa infection: CODE(S): A49.8 - Other bacterial infections of unspecified site (9) Former smoker: CODE(S): Z87.891 - Personal history of nicotine dependence Post-Operative Diagnosis: Same. Surgery/Procedure Performed:: Right below knee amputation. Description of Surgical Findings:: 75-year-old male is being seen at [facility] for nonhealing infected MRSA diabetic ulcers right lateral foot with osteomyelitis. He underwent revisional 4th and 5th metatarsal resections with Dr. Shah in August,. Culture showed MRSA. He was treated with IV Vancomycin for 6 weeks. Pathology showed acute osteomyelitis. He had another culture done on 12/01/20. It showed MRSA and Pseudomonas aeroginosa. He was started on Doxycycline and the Pseudomonas is sensitive to Levaquin. Wound care is currently being done with Dakin's dressing changes. His vascular status has been optimized with a recent drug coated balloon angioplasty of the femoral artery with Dr. Busch. To continue on Plavix and aspirin. His HgbA1c from 12/01/20 was 6.9. He reports he is ready to proceed forward with a below the knee amputation due to recurrence and ongoing infections. I was asked to evaluate this patient for surgical options for treatment. Patient was informed of the risks and complications of the procedure including alternatives to surgery. These were discussed with the patient personally. Patient voices understanding and wishes to proceed. Some of the risks and complications that were discussed included but were not inclusive of failure to diagnose including symptom relief, pain, infection, numbness, stiffness, RSD (CRPS), need for further surgery, contracture, and wou nd healing problems. Total tourniquet time - 91 minutes. I used AmnioFix Placental Connective Tissue Graft, (7 x 6 cm). Catalog Number - [id number]. Lot Number - [id number]. Expiration - October 30, 2025. I used Jacqueline absorbable hemostat. Reference Number - [id number]. Lot Number - [id number]. Expiration - August 29, 2025. Surgeon: Manan Lopez service engineer: None Type of Anesthesia: General Specimen's removed: Amputation right lower extremity, including soft tissue and bone) to Pathology. Drains: Gagandeep. Estimated Blood Loss (mL): 150. Description of Procedure: Patient was taken to OR in supine position and was placed under general anesthesia. His right leg was prepped and draped in the usual fashion. A sterile stockinette was placed over the right foot. SCD's were not placed for DVT prophylaxis because of bilateral amputation status. Will proceed with chemoprophylaxis with Lovenox. Perioperative antibiotics were given intravenously. A goodrich catheter was then placed. The anterior tibial tubercle was marked. A horizontal marking was made 12 cm distally. I then extended this marking posteriorly and created a posterior flap with a length of 10 cm. When the tibia is exposed, I will moy it at 11 cm for the osteotomy. The fibula will be remove about 1.5 cm proximal to that. These markings were infiltrated with xylocaine with epinephrine. Prior to prepping the patient, a tourniquet was placed on the proximal thigh. The left leg was elevated and an Esmarch bandage was placed for compression as the tourniquet was elevated to 300 mmHg. I made an anterior incision and when I got to the anterior tibia, a horizontal incision was made down to the bone. This horizontal incision was made at 12 cm from the anterior tibial tubercle. I then incised the anterior tibial muscle, the extensor hallucis longus muscle, and the extensor digitorum longus muscle. The anterior tibial vessels were seen and dissected and ligated with Number 2 Silk tie ligatures. I located the anterior tibial (deep peroneal) nerve. It was dissected free and ligated with Number 2 Silk tie ligature. It was placed on stretch and incised. This allowed the proximal end to retract proximally to minimize neuroma formation. The peroneal muscles were then incised laterally. The peroneal vessels were seen and dissected and ligated with Number 2 Silk tie ligatures. I located the peroneal nerve and ligated with Number 2 Silk tie ligature. It was placed on stretch and incised. This allowed the proximal end to retract proximally to minimize neuroma formation. This exposed the fibula. Using a periosteal elevator, I freed up the tibia. I then placed the gigli saw around the tibia at the level of the previous marking at 11 cm from the anterior tibial tubercle. The tibia was then incised. This made it a little easier to get exposure to the tibialis posterior muscle which was incised. The flexor digitorum longus muscle medially and the flexor hallucis longus muscle laterally were incised. This exposed the peroneal vessels laterally and the posterior tibial vessels medially. These vessels were dissected and ligated with Number 2 Silk tie ligatures. The posterior tibial nerve was dissected free and ligated with Number 2 Silk tie ligature. It was placed on stretch and incised. This allowed the proximal end to retract proximally to minimize neuroma formation on the stump. I dissected the fibula with a periosteal elevator superiorly about 1.5 cm proximal to the tibial osteotomy. I used an oscillating saw to incise the fibula. A rasp was used to smooth out the bony edge. I then extended the skin incision posteriorly and created the posterior flap. I the gastrocnemius muscle from the soleus muscle. The remaining muscle fibers from the soleus muscle were incised at the distal leg and removed from the field. The amputated leg will be sent to Pathology for analysis. In order to close the posterior flap, the soleus muscle was incised thus exposing the gastrocnemius muscle. This thinned the flap enough that I was able to advance the flap anteriorly to cover the bone. A size 15 Gagandeep drain was placed through a separate stab incision laterally and secured to the skin with 3-0 Nylon suture. The drain was used to drain the deeper wound over the bone and brought out into the subcutaneous tissue. Prior to closure of the stump, I beveled the tibia anteriorly with an oscillating saw to smooth out the bone anteriorly. A rasp was used to smooth out the edges of the bone. I then released the tourniquet after 91 minutes. Hemostasis was obtained with electrocautery. Some bleeding was seen posteriorly. There were some perforators seen that were controlled with Number 2 Silk tie ligatures and 4-0 Vicryl suture ligatures. Nothing else needed to be ligated at this time. The wound was irrigated with Irrisept 0.05% chlorhexidine solution followed by saline irrigation. The flaps were viable with no evidence of vascular compromise. I then placed AmnioFix placental connective tissue graft into the wound at the level of the bone to help stimulate the healing process. I used a 7 x 6 cm piece of graft. I was able to cover the tibia with the soleus muscle to the periosteum anteriorly with 2-0 Vicryl figure of eight interrupted sutures. The fascia of the gastrocnemius muscle was then approximated to the fascia and periosteum anteriorly with 2-0 Vicryl figure of eight interrupted sutures. I then sprayed Jacqueline absorbable hemostat into the subcutaneous wound to minimize seroma formation. The deep dermis and subcutaneous tissue was approximated with 2-0 Vicryl interrupted sutures. The skin was approximated with 3-0 Nylon vertical mattress interrupted sutures and simple interrupted sutures. Antibiotic ointment was applied to the suture line followed by Xeroform gauze and Kerlix gauze and ABD pads followed by compression JIGAR wrap. Patient tolerated the procedure well. He was sent to PACU in satisfactory condition. Patient will be sent upstairs for continued postop care. The drain will be removed in 2-3 weeks. The sutures will be removed in 3-4 weeks. At which time will place a stump precision agriculture technician in anticipation for the prosthesis. Grafts/Implants Used: AmnioFix Placental connective tissue graft, Jacqueline. Complications None. Admit VTE Documentation VTE Present on Admission: No VTE Mechan Device Prophylaxis: None (Patient is a bilateral below knee amputee.) VTE Pharm Prophylaxis ordered?: Yes Addendum Addendum: Surgery Charges CPT - 95142 ICD-10 - L97.512, A49.02, A49.8, M86.9, Z89.431, Z89.512, I73.9, E11.42, Z87.891
[2021-01-10] MEDS: Lactated Ringers 1,000 ML 100 ML IV ×2 (13:51→15:53)
[2021-01-10 14:01] LABS: Bedside Glucose 108 mg/dL (70-110)
[2021-01-10 17:25] LABS: Bedside Glucose 104 mg/dL (70-110)
[2021-01-10] MEDS: Lactated Ringers 1,000 ML 60 ML IV (18:17)
[2021-01-10] MEDS: diazePAM 5 MG Tablet PO (18:22)
[2021-01-10] MEDS: oxyCODONE 5 MG Tablet 10 MG PO (18:22)
[2021-01-10] MEDS: Acetaminophen 500 MG Tablet 1000 MG PO ×2 (18:27→21:53)
--- NOTE | 2021-01-10 19:20 | PCM.RX.CS ---
Consult Pharmacy has been consulted to manage selected antiobiotic: Vancomycin Type of Consult: New start Prior Doses of Antibiotics Received/Current Regimen: Medications Discontinued Medications Vancomycin HCl 1,250 mg/ (Sodium Chloride) 275 mls @ 167 mls/hr IV PREOP ONE Stop: 01/10/21 10:08 Last Admin: 01/10/21 09:09 Dose: Infused Documented by: Weight used for dosin kg Estimated Creatinine Clearance: 62 Goal Trough: 10-15 mcg/mL Pharmacy Plan for Drug Dosinmg preop, 750mg IV q12h with trough prior to 4th dose per policy. Pharmacy Service will continue to monitor and adjust dosing as required.
[2021-01-10] MEDS: 0.9% Saline Lock 10 ML Syringe IV (21:43)
[2021-01-10] MEDS: HYDROmorphone 1 MG/ML Syringe IV (21:45)
[2021-01-10 23:25] LABS: Bedside Glucose 164 mg/dL (70-110)
[2021-01-11] VITALS (10 sets, daily range): BP systolic 93–122; BP diastolic 49–62; PULSE 77–88; RESP 16–18; TEMP 36.6–37.2; O2SAT 77–100; BMI 26.1
[2021-01-11] MEDS: oxyCODONE 5 MG Tablet 10 MG PO ×2 (05:29→20:21)
[2021-01-11] MEDS: Enoxaparin 40 MG/0.4 ML Syringe SC (05:29)
[2021-01-11] MEDS: 0.9% Saline Lock 10 ML Syringe IV ×2 (05:30→11:57)
[2021-01-11 07:30] LABS: Hematocrit 29.3 % (40-54); Mean Corp Hgb Conc 30.7 g/dL (32-36); Mean Corpuscular Hgb 31.6 pg (27.0-32.0); Mean Corpuscular Volume 102.8 fL (80-94); Mean Platelet Vol. 9.1 fl (6.2-12.0); Platelet Count 152 K/mm3 (150-450); RBC Distribution Width CV 14.6 % (11.6-14.6); RBC Distribution Width SD 54.3 fl (35.1-43.9); Red Blood Count 2.85 M/mm3 (4.6-6.2); White Blood Count 6.9 K/mm3 (4.4-11.0)
[2021-01-11 07:59] LABS: Anion Gap 7 (5-15); BUN 20 mg/dL (7-18); BUN/Creat Ratio 19.4 RATIO (10-20); Calcium,Total 7.8 mg/dL (8.5-10.1); Chloride 99 mmol/L (98-107); Creatinine, Serum 1.03 mg/dL (0.70-1.30); EST Glomerular Filtration Rate 75 mL/min (>60); Est Glom Filt Rate - Afr Amer 91 mL/min (>60); Estimated Creatinine Clearance 67.01 ml/min; Glucose 207 mg/dL (74-106); Potassium 3.9 mmol/L (3.5-5.1); Prealbumin 13.5 mg/dL (20.0-40.0); Sodium Level 137 mmol/L (136-145)
[2021-01-11] MEDS: Insulin Lispro 100 UNIT/ML INSULN.PEN 10 UNIT SC ×2 (08:28→11:33)
[2021-01-11 08:40] LABS: Bedside Glucose 215 mg/dL (70-110)
[2021-01-11] MEDS: Furosemide 40 MG Tablet PO ×2 (10:16→17:18)
[2021-01-11] MEDS: Citalopram 20 MG Tablet PO (10:16)
[2021-01-11] MEDS: Acetaminophen 500 MG Tablet 1000 MG PO ×3 (10:17→20:09)
[2021-01-11] MEDS: Clopidogrel Bisulfate 75 MG Tablet PO (10:17)
--- NOTE | 2021-01-11 10:30 | CASEMGMT ---
Social Work Assessment Referral Date: 01/11/2021 Date of Assessment: 01/11/2021 Reason for consult: [facility] consult Informant: Physician SW received referral for [facility]. SW placed a call to Isaura with [facility], [facility] is able to accept pt. Personal Status: SW met with pt to complete initial assessment. Pt is alert and orientated and answers questions appropriately. Living Arrangements: Pt stats he lives with his in a Bi level home with one step to enter the home and then has steps to move from floor to floor. Pt states he has a wheelchair lift on the steps and also has railings on the steps. DME: Wheelchair lift, Walker, 2 scooters, scooter hoists to get scooter into vehicles. Pt does states he wears oxygen at home during the night, pt unable to name agency Oxygen is through, states somewhere in [facility]. PCP: Jcarlos Glasgow Pharmacy: [facility] [place] Specialists: Dr. Busch, wound center, Dr. Wright at [facility] for blood and a curatorial specialist Advanced Directives: Pt states he has completed both HCPOA and LW and states his Alexia is HCPOA Substance Abuse Hx: Pt denied Mental Health Hx: Pt states he takes a happy pill that is prescribed through Dr. Glasgow. SW spoke with pt about Mental Health Hx, specifically depression. Pt states both him and his has depression. Pt states he never had any suicidal thoughts until he was in a skilled nursing in July of 2020. Pt states he was on suicide watch at that time. Pt states if he was ever going to branden for Malpractice it would be that SNF. SW asked pt the name of the SNF he was at, pt refused to answer. SW asked pt if he had any suicidal plans at that time and pt didn't answer, pt continued to talk about his time in the skilled nursing. Pt states I am sure it didn't help that it was also during the time of COVID. Pt states as soon as he could leave that place and his could take him home he did. Pt states as soon as he was back home, he instantly felt mentally/emotionally better. Pt denied any current suicidal thoughts/plans/ideations. Pt's Alexia then entered the room. CRISTINA spoke with pt and Alexia both about discharge plans. Alexia states she was spoken to about the inpatient rehab unit. CRISTINA educated pt and Alexia on [facility]. Pt and Alexia agreeable to [facility]. Patient was provided a list of IRF providers including quality and resource use data and consistent with the patient?s preferred geographic region, medical needs, and insurance network. CRISTINA placed a call to Isaura with [facility] and updated her that pt and Alexia are agreeable to [facility]. Plan: [facility] once medically cleared Sarai Mahan SORT MANAGER, EXTERNAL RELATIONS MANAGER
[2021-01-11 11:36] LABS: Bedside Glucose 208 mg/dL (70-110)
[2021-01-11] MEDS: HYDROmorphone 1 MG/ML Syringe IV (11:57)
--- NOTE | 2021-01-11 12:40 | CASEMGMT ---
Social Work Note CRISTINA spoke with physician, pt can discharge to [facility] tomorrow, also agreeable to PT/OT eval. CRISTINA ordered PT/OT. CRISTINA placed a call to Isaura with [facility] and updated her pt to discharge to [facility] tomorrow. Plan: [facility] tomorrow Sarai Mahan MASH PREPARATORY OPERATOR, CREATIVE SERVICES SPECIALIST
[2021-01-11] MEDS: Lactated Ringers 1,000 ML 60 ML IV (13:42)
--- NOTE | 2021-01-11 14:48 | CASEMGMT ---
SARI HAND NOTE: Pt is active w/[facility]: SN. TC placed to [facility] [place] and she was made aware discharge plan is [facility] GOTTLIEB RN CM
[2021-01-11] MEDS: Juven (unflavored) Packet 1 PACKET PO (16:32)
[2021-01-11 16:35] LABS: Bedside Glucose 210 mg/dL (70-110)
[2021-01-11] MEDS: Insulin Lispro 100 UNIT/ML INSULN.PEN 20 UNIT SC (17:16)
--- NOTE | 2021-01-11 17:24 | PCM.PN.SRG ---
Subjective Subjective Postop #1 Patient is resting comfortably. Objective Data Objective Data Vital Signs: Vital Signs Temp Pulse Resp BP Pulse Ox 98.9 F 88 16 113/53 L 77 01/11/21 09:25 01/11/21 09:25 01/11/21 09:25 01/11/21 09:25 01/11/21 14:04 Oxygen Flow Rate (L/min) 2 Oxygen Delivery Method Nasal Cannula Weight: 187 lb 6.287 oz Body Mass Index (BMI) 26.1 Intake & Output: Intake and Output for Last 24 Hours 01/09/21 01/10/21 01/11/21 23:59 23:59 23:59 Intake Total 1987 / 8 3217 / 3217 Output Total 405 / 605 1250 / 1250 Balance 1583 / 1783 1966 / 1966 Drainage 25 ml yesterday, 50 ml today. Lab / Micro Data Attestation: I reviewed the patient's lab results. Result Diagrams: 01/11/21 06:36 01/11/21 06:36 Labs: Laboratory Results - last 24 hr 01/10/21 17:19: POC Glucose 104 01/10/21 21:40: POC Glucose 164 H 01/11/21 06:36: WBC 6.9, RBC 2.85 L, Hgb 9.0 L, Hct 29.3 L, MCV 102.8 H, MCH 31.6, MCHC 30.7 L, RDW Std Deviation 54.3 H, RDW Coeff of Jac 14.6, Plt Count 152, MPV 9.1 01/11/21 06:36: Sodium 137, Potassium 3.9, Chloride 99, Carbon Dioxide 31.0, Anion Gap 7, BUN 20 H, Creatinine 1.03, Estim Creat Clear Calc 67.01, Est GFR (MDRD) Af Amer 91, Est GFR (MDRD) Non-Af 75, BUN/Creatinine Ratio 19.4, Glucose 207 H, Calcium 7.8 L, Prealbumin 13.5 L 01/11/21 08:25: POC Glucose 215 H 01/11/21 11:30: POC Glucose 208 H 01/11/21 16:24: POC Glucose 210 H Physical Exam Narrative PHYSICAL EXAMINATION General - Alert and Oriented HEENT - PERRL. EOMI. Throat is clear. Neck - Supple and nontender. No cervical adenopathy. Abdomen - Soft and nondistended. Extremities - Right BKA stump dressing is dry. Will change the operative dressing tomorrow. Neuro - CN II-XII grossly intact. Psych - Normal mood and affect. Assessment & Plan Assessment/Plan (1) Ulcer of right foot with fat layer exposed: (2) MRSA (methicillin resistant Staphylococcus aureus) infection: (3) Pseudomonas aeruginosa infection: (4) Osteomyelitis: (5) Status post transmetatarsal amputation of right foot: (6) Status post below-knee amputation of left lower extremity: (7) Peripheral vascular disease: (8) Type 2 diabetes mellitus with diabetic polyneuropathy: (9) Former smoker: PLAN: Patient is resting comfortably. Stump dressing is dry. Will change the dressing tomorrow. Drainage is 25 ml yesterday and 50 ml today. Anticipate the drain removal in 10-14 days. He would benefit from the Rehab Unit. He has been approved. Will continue close monitoring. Anticipate discharge to the Rehab Unit tomorrow.
[2021-01-11] MEDS: tiZANidine HCl 2 MG Tablet 4 MG PO ×2 (20:08→21:13)
[2021-01-11 21:30] LABS: Bedside Glucose 176 mg/dL (70-110)
[2021-01-11] MEDS: diazePAM 5 MG Tablet PO (22:38)
[2021-01-12] VITALS (9 sets, daily range): BP systolic 87–104; BP diastolic 44–51; PULSE 60–113; RESP 16; TEMP 36.3–36.7; O2SAT 84–100
[2021-01-12] MEDS: Acetaminophen 500 MG Tablet 1000 MG PO ×3 (02:59→14:31)
[2021-01-12] MEDS: Enoxaparin 40 MG/0.4 ML Syringe SC (05:47)
[2021-01-12] MEDS: Lactated Ringers 1,000 ML 60 ML IV (05:47)
[2021-01-12] MEDS: Juven (unflavored) Packet 1 PACKET PO (09:16)
[2021-01-12] MEDS: Citalopram 20 MG Tablet PO (09:17)
[2021-01-12] MEDS: Clopidogrel Bisulfate 75 MG Tablet PO (09:17)
[2021-01-12] MEDS: Furosemide 40 MG Tablet PO ×2 (09:17→17:25)
[2021-01-12] MEDS: oxyCODONE 5 MG Tablet 10 MG PO (09:22)
[2021-01-12] MEDS: tiZANidine HCl 2 MG Tablet 4 MG PO (09:38)
[2021-01-12 09:41] LABS: Bedside Glucose 276 mg/dL (70-110)
[2021-01-12 11:31] LABS: Bedside Glucose 330 mg/dL (70-110)
--- NOTE | 2021-01-12 12:38 | CASEMGMT ---
Social Work Note SW in to speak with pt and pt's Alexia. SW updated pt and Alexia that pt can discharge to [facility] when medically cleared. Alexia states that pt was active with [facility] asked if that will continue once pt discharges. SW informed Alexia that there will be a SW on RU that will assist with discharge planning from and will update [facility]. Pt and Alexia state understanding. CRISTINA placed a call to Isaura with [facility] and updated her, pt could discharge to [facility] today if medically cleared. Isaura states understanding. Plan: [facility] once medically cleared Sarai Mahan GROUND SERVICES INSTRUCTOR, FLASK CLEANER
--- NOTE | 2021-01-12 13:56 | NURSING ---
wound photo: right BKA
--- NOTE | 2021-01-12 13:56 | NURSING ---
wound photo: right BKA
--- NOTE | 2021-01-12 14:30 | PCM.PN.SRG ---
Subjective Subjective Postop #2 Patient is sitting up in bed eating lunch. He states he is having more pain today than yesterday. Objective Data Objective Data Vital Signs: Vital Signs Temp Pulse Resp BP Pulse Ox 98.1 F 81 16 104/51 L 100 01/12/21 11:29 01/12/21 11:29 01/12/21 11:29 01/12/21 11:29 01/12/21 11:29 Oxygen Flow Rate (L/min) 2 Oxygen Delivery Method Nasal Cannula Weight: 187 lb 6.287 oz Body Mass Index (BMI) 26.1 Intake & Output: Intake and Output for Last 24 Hours 01/10/21 01/11/21 01/12/21 23:59 23:59 23:59 Intake Total 1988 / 2388 3532 / 3532 1298 / 1298 Output Total 405 / 605 1250 / 1460 975 / 975 Balance 1583 / 1783 2282 / 2072 323 / 323 Gagandeep drain 25 ml Lab / Micro Data Result Diagrams: 01/11/21 06:36 01/11/21 06:36 Labs: Laboratory Results - last 24 hr 01/11/21 16:24: POC Glucose 210 H 01/11/21 19:27: Vancomycin Trough 18.0 H 01/11/21 21:17: POC Glucose 176 H 01/12/21 09:29: POC Glucose 276 H 01/12/21 11:26: POC Glucose 330 H Physical Exam Const no apparent distress Resp normal respiratory effort Cardio regular rate GI non-tender Narrative: Urine is clear pale yellow Bladder / Kidney Exam: catheter in place Extremity Extremity Narrative: Mild +1 edema on the right BKA. Incision is dry and intact. Sutures are dry and intact. There are two blisters on the distal portion of the stump under the incision. They are fluid filled and stable. No redness. No clinical evidence fo infection. Gagandeep drain is draining serosanguineous drainage. Assessment & Plan Assessment/Plan (1) Ulcer of right foot with fat layer exposed: (2) Osteomyelitis: (3) Ulcer of right foot with muscle involvement without evidence of necrosis: (4) Non-pressure chronic ulcer of other part of right foot with fat layer exposed: (5) Non-pressure chronic ulcer of right calf limited to breakdown of skin: (6) Non-pressure chronic ulcer of other part of right foot with muscle involvement without evidence of necrosis: (7) Ulcer of right lower extremity with fat layer exposed: (8) Ulcer of right foot with necrosis of muscle: (9) Ulcer of right lower extremity with fat layer exposed: (10) Cellulitis of right lower extremity: (11) Former smoker: (12) Type 2 diabetes mellitus with diabetic polyneuropathy: (13) Diabetes mellitus type 2 with atherosclerosis of arteries of extremities: PLAN: Pain is controlled with oral pain meds. Operative dressing changed today. Sutures and incision are intact. Apply Mupirocin ointment to the suture line, cover with Kerlix and JIGAR wrap for compression. Keep limb elevated. Gagandeep drain draining serosanguineous drainage. Pathology pending. He is being transferred to [facility] Rehab later today. Will start him on Doxycycline. Continue Wills catheter. May discontinue the catheter when the patient is more alert and active. Prealbumin 13.5. Encouraged increase in protein intake. On protein supplementation. He will follow up at the wound center after he is discharged from Rehab.
--- NOTE | 2021-01-12 15:20 | PCM.DC ---
Discharge Instructions Diet Discharge Diet: Carb Control Diet Activity Discharge Activity: May Not Shower (until drain is removed) Weight Bearing Status: Weight bearing as tolerated (on left leg prosthesis only) Lifting Restrictions: No lifting restrictions Keep extremity elevated above heart level: Operative Extremity Dressing / Incision Call your doctor if your incision/area has: Continuous Slow Oozing, Sudden Increased Bleeding, Increased Pain/ Swelling, Increased Redness, Foul Smelling Discharge and Swelling at the incision site Call your doctor if you observe: Fever of 101 or Higher, Coldness, Increased Pain, Change in Color, Inability to urinate, Inability to have a bowel movement, Shortness of breath, Chest pain, Calf discomfort and Uncontrolled pain Change Dressing in: 1 day (Daily, apply mupirocin ointment to the incision line, cover with kerlix and JIGAR wrap for compression) Cleanse incision/area with: Soap & Water Catheter: Wills to large bag Drain: Suction Additional Dressing/Incision Instructions:: Change dressing daily, apply mupirocin ointment to the incision line, cover with kerlix and JIGAR wrap for compression Follow Up Care Please Follow Up With: Aminah Leary When: At wound center after discharged from Rehab Test Results: Test results from this visit will be discussed in further detail at your follow-up appointment, if applicable. Discharge Plan Admission Admit Date/Time: 01/10/21 19:22 Attending Provider: Manan Lopez Primary Care Provider: Jcarlos Glasgow Discharge Orders/Prescriptions Prescriptions: New oxycodone-acetaminophen [Percocet] 5-325 mg tablet 1 tab PO Q4H PRN (Reason: pain (scale score 7-10)) 7 Days Qty: 30 RF: 0 Continued prednisone 2.5 mg tablet 2.5 mg PO DAILY RF: 0 omeprazole 40 mg capsule,delayed release(DR/EC) 40 mg PO DAILY RF: 0 levothyroxine 200 mcg tablet 200 mcg PO QHS RF: 0 aspirin [Adult Aspirin Regimen] 81 mg tablet,delayed release (DR/EC) 81 mg PO DAILY RF: 0 tizanidine 4 mg tablet 4 mg PO Q8H PRN (Reason: MUSCLE SPASMS) RF: 0 furosemide 40 mg tablet 40 mg PO BID RF: 0 Lantus U-100 Insulin 100 UNIT/ML solution 10 unit SQ BID RF: 0 Novolin R Regular U-100 Insuln 100 UNIT/ML solution See Protocol unit SC QHS RF: 0 insulin regular human 100 UNIT/ML solution 10 units SC BREAKFAST RF: 0 insulin regular human 100 UNIT/ML solution 20 units SC DINNER RF: 0 pravastatin 40 MG tablet 40 mg PO QHS RF: 0 clopidogrel 75 MG tablet 75 mg PO DAILY RF: 0 ammonium lactate 396 GM lotion 227 gm TP DAILY Qty: 120 RF: 0 dextrose 38 GM gel 1 dose PO PRN PRN (Reason: Hypoglycemia) RF: 0 ipratropium bromide 1 SPRAY spray,non-aerosol 1 spray NASAL PRN PRN (Reason: Runny Nose) RF: 0 ondansetron HCl [Zofran] 4 mg tablet 4 mg PO Q8H Qty: 14 RF: 0 citalopram 20 mg Tablet 20 mg PO DAILY RF: 0 metoprolol succinate 50 mg tablet extended release 24 hr 50 mg PO DAILY Qty: 180 RF: 3 lisinopril 2.5 mg tablet 2.5 mg PO DAILY Qty: 90 RF: 4 Held acetaminophen 500 mg tablet 1,000 mg PO 4X/DAY RF: 0 Hold Instructions: Resume on 01/26/21. Hold until no longer taking Percocet. Discontinued oxycodone-acetaminophen 5-325 mg tablet 1 tablet PO ONCE PRN (Reason: Pain) RF: 0 Referrals / Follow Up: Jcarlos Glasgow MD [Primary Care Provider] - Disposition Disposition (needs filled in before D/C Order can be placed): Inpatient Rehab Unit/Facility
--- NOTE | 2021-01-12 16:14 | CASEMGMT ---
Addendum entered by Sarai Mahan 01/12/21 16:25: Palliative Care referral was made for pt. SW placed a call to [facility] SW and left message that Palliative referral was made. Original Note: Social Work Note SW placed green sheet on chart in the event pt is medically stable for discharge later today. Plan: [facility] once medically cleared Sarai Mahan [employer] FREIGHT BRAKE COUPLER, ADJUNCT INSTRUCTOR OF WOMEN'S STUDIES
--- NOTE | 2021-01-12 16:20 | CASEMGMT ---
SARI HAND NOTE: Pt qualifies for a Palliative referral per the [facility] palliative screening tool at this time. BAY Jiménez made aware and states ok for Palliative c/s at this time. Order placed. Palliative updated at this time and notified pt is discharging to [facility] today. Face Sheet faxed to Palliative at this time. Gina GOTTLIEB RN CM
[2021-01-12 16:35] LABS: Bedside Glucose 378 mg/dL (70-110)
[2021-01-12] MEDS: Insulin Lispro 100 UNIT/ML INSULN.PEN 20 UNIT SC (17:24)
--- NOTE | 2021-01-12 21:15 | DS.PCM_ITS ---
Providers Date of Admission: 01/10/21 Date of Discharge: 01/12/21 Primary Care Physician: Dr. Jcarlos Glasgow MD Attending Physician: Dr. Manan Lopez MD Reason For Visit: RT BELOW THE KNEE AMP Diagnosis Discharge Diagnosis (1) Ulcer of right foot with fat layer exposed: Status: Resolved Code(s): L97.512 - Non-pressure chronic ulcer of other part of right foot with fat layer exposed (2) MRSA (methicillin resistant Staphylococcus aureus) infection: Status: Resolved Code(s): A49.02 - Methicillin resistant Staphylococcus aureus infection, unspecified site (3) Pseudomonas aeruginosa infection: Status: Acute Code(s): A49.8 - Other bacterial infections of unspecified site (4) Osteomyelitis: Status: Resolved Code(s): M86.9 - Osteomyelitis, unspecified (5) Status post transmetatarsal amputation of right foot: Status: Chronic Code(s): Z89.431 - Acquired absence of right foot (6) Status post below-knee amputation of left lower extremity: Status: Chronic Code(s): Z89.512 - Acquired absence of left leg below knee (7) Peripheral vascular disease: Status: Deleted Code(s): I73.9 - Peripheral vascular disease, unspecified (8) Type 2 diabetes mellitus with diabetic polyneuropathy: Status: Chronic Code(s): E11.42 - Type 2 diabetes mellitus with diabetic polyneuropathy (9) Former smoker: Status: Chronic Code(s): Z87.891 - Personal history of nicotine dependence Medications at Discharge Home Medications acetaminophen 500 mg tablet 1,000 mg PO 4X/DAY tab 08/05/19 levothyroxine 200 mcg tablet 200 mcg PO QHS 08/05/19 omeprazole 40 mg capsule,delayed release 40 mg PO DAILY 08/05/19 prednisone 2.5 mg tablet 2.5 mg PO DAILY 08/05/19 aspirin 81 mg tablet,delayed release 81 mg PO DAILY 12/17/19 Lantus U-100 Insulin 10 unit SQ BID 06/09/20 insulin regular human 10 units SC BREAKFAST 06/11/20 insulin regular human 20 units SC DINNER 06/11/20 clopidogrel 75 mg PO DAILY 08/06/20 pravastatin 40 mg PO QHS 08/06/20 dextrose 1 dose PO PRN PRN 09/01/20 ipratropium bromide 1 spray NASAL PRN PRN 09/10/20 metoprolol succinate 50 mg tablet,extended release 24 hr 50 mg PO DAILY #180 tablet 09/27/20 lisinopril 2.5 mg tablet 2.5 mg PO DAILY #90 tablet 09/28/20 furosemide 40 mg tablet 40 mg PO BID tablet 10/25/20 tizanidine 4 mg tablet 4 mg PO Q8H PRN tablet 10/25/20 citalopram 20 mg PO DAILY 12/31/20 ammonium lactate 227 gm TP DAILY 01/12/21 ondansetron HCl [Zofran] 4 mg PO Q8H 01/12/21 oxycodone-acetaminophen [Percocet] 1 tab PO Q4H PRN 7 Days #30 tab 01/12/21 doxycycline hyclate 100 mg PO BID #20 cap 01/14/21 Hospital Course Operations - (01/10/21 - Right below knee amputation.) Procedures None Summary of Care Provided Minutes Spent on Discharge: 30 Hospital Course: 75-year-old male is being seen at [facility] for nonhealing infected MRSA diabetic ulcers right lateral foot with osteomyelitis. He underwent revisional 4th and 5th metatarsal resections with Dr. Shah in August,. Culture showed MRSA. He was treated with IV Vancomycin for 6 weeks. Pathology showed acute osteomyelitis. He had another culture done on 12/01/20. It showed MRSA and Pseudomonas aeroginosa. He was started on Doxycycline and the Pseudomonas is sensitive to Levaquin. Wound care is currently being done with Dakin's dressing changes. His vascular status has been optimized with a recent drug coated balloon angioplasty of the femoral artery with Dr. Busch. To continue on Plavix and aspirin. His HgbA1c from 12/01/20 was 6.9. He reports he is ready to proceed forward with a below the knee amputation due to recurrence and ongoing infections. On 01/10/21, the patient was taken to the operating room and underwent a right below knee amputation. He tolerated the procedure well. His postoperative course was unremarkable. He was afebrile. His stump incision was dry and intact. Mild swelling noted in the stump. His drainage ranged from 25-50 ml/day. Will remove the drain in 10-14 days. The sutures will be removed in 2- 3 weeks. Postoperatively, his Hgb was stable at 9.0. He was evaluated for the Rehab Unit on the 4th floor and was accepted. On the second postoperative day, he was awake and alert and was discharged. Perioperatively he was treated with Vancomycin and Zosyn because of preop cultures that showed MRSA and Pseudomonas aeroginosa. He will be discharged on Doxycycline until the drain is removed. He was admitted to the Rehab Unit. Condition upon discharger was good. Weight / BMI Weight Weight: 187 lb 6.287 oz Body Mass Index (BMI) 26.1 ABG / Lab / Microbiology Data Attestation: I reviewed the patient's lab results. Result Diagrams: 01/11/21 06:36 01/11/21 06:36 D/C Instructions Discharge Diet: Carb Control Diet Weight Bearing Status: Weight bearing as tolerated (on left leg prosthesis only) Keep extremity elevated above heart level: Operative Extremity Call your doctor if your incision/area has: Continuous Slow Oozing, Sudden Increased Bleeding, Increased Pain/ Swelling, Increased Redness, Foul Smelling Discharge and Swelling at the incision site Call your doctor if you observe: Fever of 101 or Higher, Coldness, Increased Pain, Change in Color, Inability to urinate, Inability to have a bowel movement, Shortness of breath, Chest pain, Calf discomfort and Uncontrolled pain Cleanse incision/area with: Soap & Water Catheter: Wills to large bag Drain: Suction Additional Dressing/Incision Instructions: Change dressing daily, apply mupirocin ointment to the incision line, cover with kerlix and JIGAR wrap for compression Please Follow Up With: Aminah Leary When: At wound center after discharged from Rehab Meaningful Use Info Meaningful Use Diagnoses (Choose all that apply): None applicable Discharge Plan Admission Admit Date/Time: 01/10/21 19:22 Primary Reason for Your Visit: right below knee amputation Attending Provider: Manan Lopez Primary Care Provider: Jcarlos Glasgow Discharge Orders/Prescriptions Prescriptions: New oxycodone-acetaminophen [Percocet] 5-325 mg tablet 1 tab PO Q4H PRN (Reason: pain (scale score 7-10)) 7 Days Qty: 30 RF: 0 doxycycline hyclate 100 mg capsule 100 mg PO BID Qty: 20 RF: 0 Continued prednisone 2.5 mg tablet 2.5 mg PO DAILY RF: 0 omeprazole 40 mg capsule,delayed release(DR/EC) 40 mg PO DAILY RF: 0 levothyroxine 200 mcg tablet 200 mcg PO QHS RF: 0 aspirin [Adult Aspirin Regimen] 81 mg tablet,delayed release (DR/EC) 81 mg PO DAILY RF: 0 tizanidine 4 mg tablet 4 mg PO Q8H PRN (Reason: MUSCLE SPASMS) RF: 0 furosemide 40 mg tablet 40 mg PO BID RF: 0 Lantus U-100 Insulin 100 UNIT/ML solution 10 unit SQ BID RF: 0 insulin regular human 100 UNIT/ML solution 10 units SC BREAKFAST RF: 0 insulin regular human 100 UNIT/ML solution 20 units SC DINNER RF: 0 pravastatin 40 MG tablet 40 mg PO QHS RF: 0 clopidogrel 75 MG tablet 75 mg PO DAILY RF: 0 dextrose 38 GM gel 1 dose PO PRN PRN (Reason: Hypoglycemia) RF: 0 ipratropium bromide 1 SPRAY spray,non-aerosol 1 spray NASAL PRN PRN (Reason: Runny Nose) RF: 0 citalopram 20 mg Tablet 20 mg PO DAILY RF: 0 metoprolol succinate 50 mg tablet extended release 24 hr 50 mg PO DAILY Qty: 180 RF: 3 lisinopril 2.5 mg tablet 2.5 mg PO DAILY Qty: 90 RF: 4 Held acetaminophen 500 mg tablet 1,000 mg PO 4X/DAY RF: 0 Hold Instructions: Resume on 01/26/21. Hold until no longer taking Percocet. Discontinued oxycodone-acetaminophen 5-325 mg tablet 1 tablet PO ONCE PRN (Reason: Pain) RF: 0 No Action ammonium lactate 396 GM lotion 227 gm TP DAILY RF: 0 ondansetron HCl [Zofran] 4 mg tablet 4 mg PO Q8H RF: 0 Referrals / Follow Up: Jcarlos Glasgow MD [Primary Care Provider] - Disposition Disposition (needs filled in before D/C Order can be placed): Inpatient Rehab Unit/Facility
== END 2021-01-12 18:16 | DRG 617 ==
LOC: SDC 22:10 → MS3 22:10
PROVIDERS: Anesthesiology; Admitting Provider Surgery; PCP Family Medicine; Referring Provider Surgery; Visit Provider Surgery
PROC: 0Y6H0Z1 Detachment at Right Lower Leg, High, Open Approach (ICD-10-PCS; principal; 2021-01-10 08:15)
DX: E11.621 Type 2 diabetes mellitus with foot ulcer (principal); L03.115 Cellulitis of right lower limb; E11.69 Type 2 diabetes mellitus with other specified complication; L97.512 Non-pressure chronic ulcer of other part of right foot with fat layer exposed; B95.62 Methicillin resistant Staphylococcus aureus infection as the cause of diseases classified elsewhere; B96.5 Pseudomonas (aeruginosa) (mallei) (pseudomallei) as the cause of diseases classified elsewhere; E11.42 Type 2 diabetes mellitus with diabetic polyneuropathy; E11.51 Type 2 diabetes mellitus with diabetic peripheral angiopathy without gangrene; Z95.810 Presence of automatic (implantable) cardiac defibrillator; I25.10 Atherosclerotic heart disease of native coronary artery without angina pectoris; I25.5 Ischemic cardiomyopathy; G47.33 Obstructive sleep apnea (adult) (pediatric); E07.9 Disorder of thyroid, unspecified; J44.9 Chronic obstructive pulmonary disease, unspecified; F32.9 Major depressive disorder, single episode, unspecified; K21.9 Gastro-esophageal reflux disease without esophagitis; E78.00 Pure hypercholesterolemia, unspecified; J98.6 Disorders of diaphragm; I65.23 Occlusion and stenosis of bilateral carotid arteries; Z89.431 Acquired absence of right foot; Z89.512 Acquired absence of left leg below knee; Z95.1 Presence of aortocoronary bypass graft; Z95.5 Presence of coronary angioplasty implant and graft; Z97.4 Presence of external hearing-aid; Z99.81 Dependence on supplemental oxygen; Z79.4 Long term (current) use of insulin; Z79.02 Long term (current) use of antithrombotics/antiplatelets; Z79.82 Long term (current) use of aspirin; Z79.899 Other long term (current) drug therapy; Z87.891 Personal history of nicotine dependence; Z87.39 Personal history of other diseases of the musculoskeletal system and connective tissue
CPT/HCPCS: 36415; 80048; 80202; 82962; 84134; 84443; 85027; 88305; 88307; 88311; 94762; 97110; 97163; 97167; 97530; 97535; 99251; J7030; J7040; J7050; J7120; A4216; G0463; J2405

== ENCOUNTER 2021-01-12 18:38 | Inpatient (IN) | payer MEDICARE, OTHER, SELFPAY ==
[2021-01-10 07:00] VITALS: BMI 26.1
[2021-01-12 18:42] VITALS: BP 76/43; PULSE 78; RESP 18; TEMP 36.6; O2SAT 100; BMI 26.1
[2021-01-12 19:30] VITALS: BP 104/47; PULSE 76; RESP 18; TEMP 36.4; O2SAT 95
--- NOTE | 2021-01-12 21:06 | HP.PCM_ITS ---
HPI - General General Date of Admission: 01/12/21 HPI Narrative KURT JEONG, is a 75 Male who presents with followin08/15/2020 Dr. Shah performed revision right 4th, 5th metatarsal amputation followed by 6 weeks IV Vancomycin for MRSA osteomyelitis. 12/01/2020 Culture growing MRSA, Pseudomonas Aeruginosa. Started on Doxycycline, Levaquin. 12/01/2020 Hemoglobin A1c 6.9. Patient ready to undergo right below the knee amputation. 01/10/2021 Dr. Lopez performed right below the knee amputation. Vancomycin IV, Zosyn IV postoperatively. manager terminal IV antibiotics considered. Instead, patient discharged on Doxycycline. 01/12/2021 Admit to with debility, here for greater than 3 hours daily rehabilitation, strengthening, prior to discharge home with . On arrival, patient hypotensive 70 systolic. He does have history of chronic systolic congestive heart failure, no swelling per nursing report. Furosemide 40MG twice daily stopped. Normal Saline 1 Liter IV bolus to improve blood pressure. [facility] Medical History (Updated 01/12/21 @ 21:[address] Jonh Bond MD) Amputation of right foot Anemia Biventricular implantable cardioverter-defibrillator (ICD) in situ Cardiology follow-up encounter Cellulitis of right lower extremity COPD (chronic obstructive pulmonary disease) Coronary artery disease Coronary artery disease involving [place] coronary artery of [place] heart Delayed wound healing Depression Diabetes Diabetes mellitus type 2 with atherosclerosis of arteries of extremities Diaphragm paralysis Diarrhea Difficulty balancing Difficulty chewing Difficulty swallowing Fatigue Former smoker Gastric reflux Glaucoma High cholesterol History of edema History of irregular heartbeat History of pacemaker History of steroid therapy History of stress test Insulin dependent diabetes mellitus Ischemic cardiomyopathy Lab test negative for COVID-19 virus Malnutrition Nausea vomiting and diarrhea On home oxygen therapy 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 Other specified peripheral vascular diseases Peripheral vascular disease Peripheral vascular disease due to secondary diabetes Pseudomonas aeruginosa infection SOB (shortness of breath) Status post below-knee amputation of left lower 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 Tachycardia Thyroid disease 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 Uses wheelchair Wears glasses Wears hearing aid Wears hearing aid in both ears Home Medications acetaminophen 500 mg tablet 1,000 mg PO 4X/DAY tab 08/05/19 [History Last Taken 01/10/21 05:00 1000 MG] levothyroxine 200 mcg tablet 200 mcg PO QHS 08/05/19 [History Last Taken 08/13/20] omeprazole 40 mg capsule,delayed release 40 mg PO DAILY 08/05/19 [History Last Taken 01/10/21 05:00 40 MG] prednisone 2.5 mg tablet 2.5 mg PO DAILY 08/05/19 [History Last Taken 08/13/20] aspirin 81 mg tablet,delayed release 81 mg PO DAILY 12/17/19 [History Last Taken 08/13/20] Lantus U-100 Insulin 10 unit SQ BID 06/09/20 [History Last Taken 08/13/20] insulin regular human 10 units SC BREAKFAST 06/11/20 [History Last Taken 08/13/20] insulin regular human 20 units SC DINNER 06/11/20 [History Last Taken Unknown] clopidogrel 75 mg PO DAILY 08/06/20 [History Last Taken 08/13/20] pravastatin 40 mg PO QHS 08/06/20 [History Last Taken 08/13/20] dextrose 1 dose PO PRN PRN 09/01/20 [History Last Taken Unknown] ipratropium bromide 1 spray NASAL PRN PRN 09/10/20 [History Last Taken Unknown] metoprolol succinate 50 mg tablet,extended release 24 hr 50 mg PO DAILY #180 tablet 09/27/20 [Rx Last Taken 01/10/21 05:00 50 MG] lisinopril 2.5 mg tablet 2.5 mg PO DAILY #90 tablet 09/28/20 [Rx Last Taken 01/10/21 05:00 2.5 MG] furosemide 40 mg tablet 40 mg PO BID tablet 10/25/20 [History Last Taken Unknown] tizanidine 4 mg tablet 4 mg PO Q8H PRN tablet 10/25/20 [History Last Taken Unknown] citalopram 20 mg PO DAILY 12/31/20 [History Last Taken Unknown] ammonium lactate 227 gm TP DAILY 01/12/21 [History Last Taken Unknown] ondansetron HCl [Zofran] 4 mg PO Q8H 01/12/21 [History Last Taken Unknown] oxycodone-acetaminophen [Percocet] 1 tab PO Q4H PRN 7 Days #30 tab 01/12/21 [Rx Last Taken Unknown] Allergy/AdvReac Type Severity Reaction Status Date / Time amiodarone Allergy Severe pulmonary Verified 12/31/20 09:14 fibrosis sotalol Allergy Severe intolerant Verified 12/31/20 09:14 levofloxacin [From Levaquin] Allergy Pain in Verified 12/31/20 09:14 joints gabapentin AdvReac Diarrhea Verified 12/31/20 09:14 latex AdvReac Rash Verified 12/31/20 09:14 Family History Sister Diabetes Mother Heart disease Valve replacement Father Diabetes Surgical History (Updated 01/12/21 @ 21:[address] Jonh Bond MD) History of amputation of toe History of bilateral cataract extraction History of cardiac catheterization History of cholecystectomy History of coronary artery bypass graft (~2003) History of coronary artery stent placement (~03/2019) History of endoscopy History of implantable cardiac defibrillator (ICD) History of left below knee amputation (~2014) History of right below knee amputation Hx of amputation Presence of permanent cardiac pacemaker (~08/2020) Social History (Updated 01/12/21 @ 21:[address] Jonh Bond MD) household members: spouse Smoking Status: Former smoker quit date: 07/02/98 pack-years: 34 alcohol intake: current alcohol intake frequency: holidays/special occasions only substance use type: does not use caffeine: Yes Type: coffee Number of servings: 2 ROS Constitutional Constitutional: Denies chills, fever(s) or weight gain ENT HEENT: Denies headache(s), nasal congestion or nasal discharge Cardiovascular Cardiovascular: Denies chest pain or palpitations Respiratory/Chest Respiratory/Chest: Denies cough, excessive phlegm production or shortness of breath with exertion Gastrointestinal Gastrointestinal: Denies abdominal pain, nausea or vomiting Genitourinary Genitourinary: Denies dysuria Musculoskeletal Musculoskeletal: Denies joint pain or joint swelling Integumentary Integumentary: Denies rash or wounds Neurologic Neurologic: Denies focal weakness, numbness or tingling Psychiatric Psychiatric: Reports auditory hallucinations; Denies anxiety, depression, homicidal ideation or suicidal ideation Vital Signs Vital Signs Vital Signs: 01/12/21 18:42 Temperature 97.8 F Temperature Source Oral Pulse Rate 78 Respiratory Rate 18 Blood Pressure 76/43 L Blood Pressure Mean 54 Blood Pressure Source Monitor Blood Pressure Position Semi-Fowlers Blood Pressure Location Right Arm Pulse Ox 100 Oxygen Delivery Method Nasal Cannula Oxygen Flow Rate (L/min) 2 Weight Weight: 85 kg Body Mass Index (BMI) 26.1 Physical Exam Const alert and oriented x3 General Appearance: cooperative HEENT normocephalic Eyes PERRL and EOMs intact bilaterally Neck supple, no JVD and no carotid bruits Resp normal respiratory effort, normal air movement and clear to auscultation bilaterally Cardio regular rate and regular rhythm GI normal to inspection, nondistended, normoactive bowel sounds, non-tender and non-distended GI Narrative: Indwelling Wills catheter. Extremity normal capillary refill Extremity Narrative: Bilateral below the knee amputation. General Extremity: Negative for edema Skin no rashes or lesions noted General Skin Exam: no breakdown Psych affect normal Appearance: appropriate Assessment & Plan Assessment/Plan (1) Debility: (2) MRSA cellulitis of right foot: (3) Foot osteomyelitis, right: (4) Diabetes mellitus: (5) Chronic obstructive pulmonary disease: (6) Coronary artery disease: (7) Glaucoma: (8) Obstructive sleep apnea: (9) Peripheral arterial occlusive disease: (10) Hypothyroidism: (11) Gastroesophageal reflux disease: (12) Hyperlipidemia: (13) Chronic systolic congestive heart failure: PLAN: 75 year old male with below past medical history hospitalized with chronic MRSA osteomyelitis diabetic right foot, underwent right below the knee amputation 01/10/[address] Lopez, admitted to with debility, here for greater than 3 hours daily rehabilitation, strengthening, prior to discharge home with . * Debility - PT/OT. * Pain - Tylenol 1000MG Q6H PRN pain (1-5), Oxycodone 5MG Q4H PRN pain (6-10). * Bowel - Senna/colace 2 tablets BID, Dulcolax 10MG TN daily PRN, MOM 30ML daily PRN. * DVT prophylaxis - Hold, on dual antiplatelet therapy. * Coronary Artery Disease - Metoprolol succinate 50MG daily, Lisinopril 2.5MG daily, Plavix 75MG daily, Aspirin 81MG daily. * Chronic systolic congestive heart failure EF 20% - Metoprolol succinate 50MG daily, Lisinopril 2.5MG daily, hold Furosemide 40MG BID for now, consider Entresto to decrease risk fo from heart failure, decrease risk of hospitalization from heart failure, make him feel better. * Hypotension - 70 systolic, NS 1 liter IV bolus. * Depression - Citalopram 20MG daily. * MRSA osteomyelitis right foot status post right below the knee amputation - Doxycycline 100MG BID x 7 days. * Diabetes Mellitus II - Lantus 10 units BID, Humalog 10 units AM, 20 units PM, SSI QHS. * Allergic Rhinitis - Atrovent nasal spray 1 spray daily. * Hypothyroidism - Levothyroxine 200MCG daily. * Nausea - Zofran 4MG Q8H. * GERD - Pantoprazole 40MG daily. * Hyperlipidemia - Pravastatin 40MG daily. * COPD - ?prednisone 2.5MG daily. * Muscle spasm - Tizanidine 4MG Q8H.
[2021-01-12] MEDS: Acetaminophen 500 MG Tablet 1000 MG PO (21:52)
[2021-01-12] MEDS: 0.9% Normal Saline 1,000 ML 999 ML IV (21:53)
[2021-01-12 22:00] VITALS: O2SAT 100
[2021-01-12] MEDS: tiZANidine HCl 2 MG Tablet 4 MG PO (22:06)
[2021-01-12] MEDS: Pravastatin 40 MG Tablet PO (22:12)
[2021-01-12] MEDS: Doxycycline 100 MG CAPSULE PO (22:12)
[2021-01-12] MEDS: Senna/Docusate Sodium 1 Tablet 2 TABLET PO (22:12)
[2021-01-12 22:38] VITALS: RESP 18; O2SAT 98
[2021-01-12 22:45] VITALS: BP 113/63; PULSE 72; RESP 18; O2SAT 98
[2021-01-12] MEDS: Insulin Lispro 100 UNIT/ML INSULN.PEN SC (22:52)
[2021-01-13 00:06] LABS: Bedside Glucose 265 mg/dL (70-110)
[2021-01-13] MEDS: Levothyroxine 100 MCG Tablet 200 MCG PO (05:29)
[2021-01-13] MEDS: Acetaminophen 500 MG Tablet 1000 MG PO ×3 (05:43→23:30)
[2021-01-13] MEDS: tiZANidine HCl 2 MG Tablet 4 MG PO ×2 (06:11→20:02)
[2021-01-13 07:01] VITALS: O2SAT 98
[2021-01-13 07:06] LABS: Bedside Glucose 75 mg/dL (70-110)
[2021-01-13 07:06] LABS: Bedside Glucose 60 mg/dL (70-110)
[2021-01-13 07:35] VITALS: BP 100/48; PULSE 62; RESP 18; TEMP 36.2; O2SAT 100
[2021-01-13] MEDS: Mupirocin Ointment 22gm Tube 1 APPLIC TOPICAL ×2 (08:58→20:42)
[2021-01-13 09:00] VITALS: PULSE 62
[2021-01-13] MEDS: Metoprolol(XL)Succ 50 MG Tablet PO (09:00)
[2021-01-13] MEDS: Clopidogrel Bisulfate 75 MG Tablet PO (09:01)
[2021-01-13] MEDS: Aspirin E.C. 81 MG Tablet PO (09:01)
[2021-01-13] MEDS: Citalopram 20 MG Tablet PO (09:01)
[2021-01-13] MEDS: predniSONE 5 MG Tablet 2.5 MG PO (09:01)
[2021-01-13] MEDS: Lisinopril 2.5 MG Tablet PO (09:01)
[2021-01-13] MEDS: Pantoprazole Sodium 40 MG Tablet PO (09:01)
[2021-01-13] MEDS: Doxycycline 100 MG CAPSULE PO ×2 (09:01→20:39)
[2021-01-13] MEDS: Menthol/Lanolin/Calamine/Znox 113 GM Tube 1 APPLIC TOPICAL ×2 (09:14→20:40)
[2021-01-13 11:25] LABS: Bedside Glucose 75 mg/dL (70-110)
--- NOTE | 2021-01-13 13:59 | PCM.CONS.P ---
Assessment & Plan Assessment/Plan (1) Amputation of right foot: (2) Chronic obstructive pulmonary disease: (3) Debility: (4) Chronic systolic congestive heart failure: (5) Presence of permanent cardiac pacemaker: (6) Chronic pain: PLAN: KURT JEONG, is a 75 M who was referred to [facility] due to symptoms related to status post right BKA following multiple courses of IV antibiotics due to infection and osteomyelitis. Extensive list of medical history that appears to be stable at this time. Spoke with patient and at this time does not want to make a decision about Palliative care. Liaison to contact patient after discharge from Rehab unit to see if patient is interested. Palliative care and phone number left at bedside. Palliative plan if patient would chose would include the followin) Amputation of right foot/chronic pain: Appears managed at this time. Patient has not asked for PRN Oxycodone. Pain needs will most likely increase with Rehab. Kurt understanding of this fact. Encouraged to utilize pain medication as needed to be able to continue to progress with therapy. Palliative would manage pain and make adjustments as needed. 2) Debility: PT/OT as ordered at Rehab. Make sure appropriate assistance is in the home before discharge. Fall risk. 3) CHF with 20% EF with ICD Discussed qualifications of hospice care. Patient is not interested at this time. Feels that he is stable and wants to continue therapy. Would be able to monitor for increase dyspnea and breathlessness and treat accordingly. 4) COPD/ DM/ PVD/ CAD s/p CABAG/ Hypothryoidism: Complicates overall care, management, recovery, and prognosis and defer to PCP and specialist for management. Palliative can assist with education about chronic conditions and adherence to plan of care. Thank you for the opportunity to participate in this patient's care, please do not hesitate to contact [facility] with any further questions or concerns. Palliative direct line is [phone]. We will follow up after discharge and will discuss palliative services further at that time. Greater than 50% of F2F visit dedicated to education and counseling of palliative care services, medications, comorbid conditions and potential assistance with management, and plan of care moving forward. Start time: 1330 End time: 1445 HPI Consult Data Date of Consult: 01/13/21 HPI Narrative HPI Narrative: KURT JEONG, is a 75 M who was referred to [facility] due to symptoms related to status post right BKA following multiple courses of IV antibiotics due to infection and osteomyelitis. Past medical history listed below. Brief history leading up to BKA as follows; On 08/15/20 Dr Shah performed revision of right 4th, 5th metatarsal amputation followed by 6 weeks of IV Vanco for MRSA osteomyelitis. On December 01, culture was positive for MRSA and pseudomonas. Started on Doxycycline and Levaquin. AIC was 6.9 and determined that patient was cleared for BKA. 01/10/21 Dr. Lopez performed right BKA. Patient received IV Doxycycline and Zosyn postop and then was discharge to rehab on PO Doxycycline. Admitted to rehab on 01/12/21 or debility for 3 hours of daily rehab and strengthening prior to discharge home with his . Pt stats he lives with his in a Bi level home with one step to enter the home and then has steps to move from floor to floor. Pt states he has a wheelchair lift on the steps and also has railings on the steps. DME: Wheelchair lift, Walker, 2 scooters, scooter hoists to get scooter into vehicles. Pt does states he wears oxygen at home during the night, pt unable to name agency Oxygen is through, states somewhere in [facility] PCP: Jcarlos Glasgow, Pharmacy: [facility] in [place], Specialists: Dr. Busch, wound center, Dr. Wright at [facility] for blood and a medical sales specialist OF [facility], last visit 10/25/20, Follows [facility] for Pacemaker checks. Advanced Directives: Pt states he has completed both HCPOA and LW and states his Alexia is HCPOA. Substance Abuse Hx: Pt denied Reports to [facility] that he takes a happy pill through Dr. Glasgow. Reports that he has depression and was on suicide watch while in a nursing facility in July 2020. Would not specify which one but states that mood was instantly better after discharge. No current suicide thoughts,plans or ideations. Seen today in his room on the Rehab unit. Noted to be drowsy upon entry. facial hair, glasses and hearing aid, O2 per nasal cannula at 2 liters, skin tone slightly icteric in color. Was not familiar with Palliative care. Services have been explained before for which he had denied. Reports that he is drowsy because he took 2 muscle relaxers before therapy. States that pain is described as 4-5/10 described as intermittent, sharp, pins and needles pain. Wrap in place on right stump with drain draining bloody drainage. Reports that he is used to phantom pain with left BKA. I am just not sure how this pain will be on this one. Currently has a left prosthetic. Currently a max 2 assist for transfers and fall risk. CHF with EF of 20% with ICD placment/CABG 2003. Hesitant to commit to Palliative until her knows what his pain will need. No idea what I will need on discharge. Appeared to not want his called to discuss. She will not agree to anything that I haven't. Agreeable to have staff notify palliative with any increase in pain. Also discussed hospice services and qualifications due to cardiac status and 20%EF. [facility] Medical History Amputation of right foot Anemia Biventricular implantable cardioverter-defibrillator (ICD) in situ Cardiology follow-up encounter Cellulitis of right lower extremity COPD (chronic obstructive pulmonary disease) Coronary artery disease Coronary artery disease involving [place] coronary artery of [place] heart Delayed wound healing Depression Diabetes Diabetes mellitus type 2 with atherosclerosis of arteries of extremities Diaphragm paralysis Diarrhea Difficulty balancing Difficulty chewing Difficulty swallowing Fatigue Former smoker Gastric reflux Glaucoma High cholesterol History of edema History of irregular heartbeat History of pacemaker History of steroid therapy History of stress test Insulin dependent diabetes mellitus Ischemic cardiomyopathy Lab test negative for COVID-19 virus Malnutrition Nausea vomiting and diarrhea On home oxygen therapy 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 Other specified peripheral vascular diseases Peripheral vascular disease Peripheral vascular disease due to secondary diabetes Pseudomonas aeruginosa infection SOB (shortness of breath) Status post below-knee amputation of left lower 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 Tachycardia Thyroid disease 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 Uses wheelchair Wears glasses Wears hearing aid Wears hearing aid in both ears Home Medications acetaminophen 500 mg tablet 1,000 mg PO 4X/DAY tab 08/05/19 [History Last Taken 01/10/21 05:00 1000 MG] levothyroxine 200 mcg tablet 200 mcg PO QHS 08/05/19 [History Last Taken 08/13/20] omeprazole 40 mg capsule,delayed release 40 mg PO DAILY 08/05/19 [History Last Taken 01/10/21 05:00 40 MG] prednisone 2.5 mg tablet 2.5 mg PO DAILY 08/05/19 [History Last Taken 08/13/20] aspirin 81 mg tablet,delayed release 81 mg PO DAILY 12/17/19 [History Last Taken 08/13/20] Lantus U-100 Insulin 10 unit SQ BID 06/09/20 [History Last Taken 08/13/20] insulin regular human 10 units SC BREAKFAST 06/11/20 [History Last Taken 08/13/20] insulin regular human 20 units SC DINNER 06/11/20 [History Last Taken Unknown] clopidogrel 75 mg PO DAILY 08/06/20 [History Last Taken 08/13/20] pravastatin 40 mg PO QHS 08/06/20 [History Last Taken 08/13/20] dextrose 1 dose PO PRN PRN 09/01/20 [History Last Taken Unknown] ipratropium bromide 1 spray NASAL PRN PRN 09/10/20 [History Last Taken Unknown] metoprolol succinate 50 mg tablet,extended release 24 hr 50 mg PO DAILY #180 tablet 09/27/20 [Rx Last Taken 01/10/21 05:00 50 MG] lisinopril 2.5 mg tablet 2.5 mg PO DAILY #90 tablet 09/28/20 [Rx Last Taken 01/10/21 05:00 2.5 MG] furosemide 40 mg tablet 40 mg PO BID tablet 10/25/20 [History Last Taken Unknown] tizanidine 4 mg tablet 4 mg PO Q8H PRN tablet 10/25/20 [History Last Taken Unknown] citalopram 20 mg PO DAILY 12/31/20 [History Last Taken Unknown] ammonium lactate 227 gm TP DAILY 01/12/21 [History Last Taken Unknown] ondansetron HCl [Zofran] 4 mg PO Q8H 01/12/21 [History Last Taken Unknown] oxycodone-acetaminophen [Percocet] 1 tab PO Q4H PRN 7 Days #30 tab 01/12/21 [Rx Last Taken Unknown] Allergy/AdvReac Type Severity Reaction Status Date / Time amiodarone Allergy Severe pulmonary Verified 12/31/20 09:14 fibrosis sotalol Allergy Severe intolerant Verified 12/31/20 09:14 levofloxacin [From Levaquin] Allergy Pain in Verified 12/31/20 09:14 joints gabapentin AdvReac Diarrhea Verified 12/31/20 09:14 latex AdvReac Rash Verified 12/31/20 09:14 Family History Sister Diabetes Mother Heart disease Valve replacement Father Diabetes Surgical History History of amputation of toe History of bilateral cataract extraction History of cardiac catheterization History of cholecystectomy History of coronary artery bypass graft (~2003) History of coronary artery stent placement (~03/2019) History of endoscopy History of implantable cardiac defibrillator (ICD) History of left below knee amputation (~2014) History of right below knee amputation Hx of amputation Presence of permanent cardiac pacemaker (~08/2020) Social History (Updated 01/12/21 @ 21:[address] Jonh Bond MD) household members: spouse Smoking Status: Former smoker quit date: 07/02/98 pack-years: 34 alcohol intake: current alcohol intake frequency: holidays/special occasions only substance use type: does not use caffeine: Yes Type: coffee Number of servings: 2 ROS Constitutional Constitutional: Reports as per HPI Cardiovascular Cardiovascular: Reports none Respiratory/Chest Respiratory/Chest: Reports none Gastrointestinal Gastrointestinal: Denies abdominal pain, anorexia or change in bowel habits Genitourinary Genitourinary: Denies abdominal discomfort or burning urination Musculoskeletal Musculoskeletal: Reports as per HPI and extremity pain Neurologic Neurologic: Denies abnormal movements, abnormal speech, behavior changes or headache(s) Psychiatric Psychiatric: Reports as per HPI Physical Exam Const alert, oriented x3 and no apparent distress General Appearance: cooperative and comfortable Orientation / Consciousness: awake, oriented to person, oriented to place and oriented to time Nutritional Appearance: thin HEENT Head and Scalp: normal to inspection and normocephalic Nose: nares normal and other Other Details: Oxygen per nasal cannula at 2 liters General Ear: hearing grossly impaired External Ear: other Other Details: hearing aides Teeth and Gingiva: poor dentition Resp normal respiratory effort and normal air movement Effort and Inspection: able to speak in complete sentences and symmetric chest movement Auscultation: clear to auscultation bilaterally Cardio regular rate, regular rhythm, S1 normal heart sound and no JVD GI normal to inspection, nondistended, normoactive bowel sounds and soft to palpation Bladder / Kidney Exam: catheter in place Extremity Extremity Narrative: New right BKA, drain in place and old left BKA General Extremity: amputation Skin Wounds: amputation Neuro oriented x3, CN's II-XII intact bilaterally and moves all extremities
[2021-01-13] MEDS: oxyCODONE 5 MG Tablet PO ×2 (14:15→20:09)
--- NOTE | 2021-01-13 14:31 | CASEMGMT ---
Social Work Initial assessment completed. Pt plans to return home with at time of discharge. Acute Hospital RNCM made referral to Palliative Medicine. RU nursing updated. DAVID Avalos
--- NOTE | 2021-01-13 16:00 | CHAPLAIN ---
Type of Pastoral Visit _x__ Initial Visit ___ Follow-up Visit ___ On-call Visit ___ General Patient Visit ___ Spiritual Assessment ___ Family Conference ___ Bereavement ___ Rapid Response ___ Code Blue ___ Other (describe below) Pastoral Care Referral From _x__ Patient ___ Family ___ Nurse ___ Physician ___ Thermocouple Tester ___ Video Intern ___ Other (describe below) Sacrament/Intervention _x__ Active listening ___ Anointing ___ Confucianism ___ Bereavement ___ Communion _x__ Laxmi exploration ___ ___ Life review _x__ Prayer ___ Reconciliation ___ Sacrament of Sick _x__ Supportive presence ___ Wedding ___ Other (describe below) Pastoral Comments patient expects to work toward a good recovery and to learn how to walk with two artificial legs; pt has laxmi and hinduism connection; pt states that others are worse off than me and God must have a reason for this. I don't know what it is now but maybe one day I will; prayer and presence
[2021-01-13 16:45] LABS: Bedside Glucose 124 mg/dL (70-110)
[2021-01-13] MEDS: Juven (unflavored) Packet 1 PACKET PO (16:56)
[2021-01-13] MEDS: Insulin Lispro 100 UNIT/ML INSULN.PEN 20 UNIT SC (17:29)
--- NOTE | 2021-01-13 19:12 | PCM.RU.PYE ---
Admission Information Primary Diagnosis:: Right foot MRSA osteomyelitis, status post right below knee amputation. Status Changes from Prescreening?: No changes Identified Actual Problem List:: Infection, Skin Intergrity, Mobility Impaired, Self Care Deficit, Know.Dfct/Disease Process, Know.Dfct of Medicaitons, Diabetes, Hypoglycemia, BP, Hypotension and Fluid Change-Dehydration Potential Problem List:: DVT, Bleeding, Infection, UTI, Aspiration, Falls, Skin Integrity and Depression Risk of Complications DVT: LMWH and LISA Hose Bleeding: Monitor Lab Values and Wound, if applicable, to be assessed every shift. Infection: Clinical Staff to Monitor for S/S of infection: and S/S of infection include fever, redness, warmth, etc. Urinary Tract Infection: Monitor for frequency, burning, discomfort, or incontinence. and Nursing will obtain urine sample for urinalysis and C&S when ordered. Aspiration: Clinical staff will monitor for coughing, drooling, congestion. Falls: Patient will be evaluated for Fall Precautions and Patient will be placed on Fall Precautions as indicated per protocol. Skin Breakdown: Nursing will assess skin daily using assessment tool. and Nursing will place on Skin Breakdown Precautions as indicated. Pain: Clinical staff will assess patient's pain level per protocol., Medications will be given, if needed, and the pain level reassessed. and Other methods: Massage, distraction, decrease stimulus, etc. used PRN. Plan of Care Patient requires physician specializing in physical medicine and rehab oversight to provide close medical supervision of rehab issues including: Pain Management, Bowel and Bladder, Medical and co-morbidity Management, Rehabilitation Leadership and Coordination of treatment team Patient needs Physical Therapy: For a minimum of 1.5 hrs Patient needs Physical Therapy to improve:: Mobility, Strengthening, Transfers, Stretching, ROM, Endurance, Gait and Balance Patient needs Occupational Therapy: For a minimum of 1.5 hrs Patient needs Occupational Therapy to improve ADL's incl.: Eating, Grooming, Bathing, Dressing, Toileting, Toilet transfers, Household tasks and Adaptive Equipment Patient requires 24/7 Rehabilitation Nursing for: Pain Issues, Identifying and preventing risk factors, Monitoring and reporting current medical conditions, Assisting with ambulation, transfer, and all ADL's, Bowel and Bladder Issues and Skin integrity Patient needs Physician Support Coordinator/ Case Management for: Discharge Planning and Arranging Home Equipment or Services Patient needs Dietary and Nutrition Services for: Adequate Nutrition, Nutritional Supplements and Nutritional Education Goals Patient will remain: free from falls and or injury at time of discharge. Patient will perform bed mobility at: - (Supervision) Patient will complete transfers from bed to chair at: - (Contact Guard Assist.) Patient will propel wheelchair: 50 feet and with MOD I assist Patient will complete upper body dressing at: - (Set up) Patient will complete lower body dressing at: - (Set up) Patient will complete toileting at: - (Max x 1) Patient will perform bathing at: - (Supervision) Patient will complete grooming at: - (Supervision) Patient's skin will: remain intact and free from infection. Patient will receive: adequate nutrition. Discharge Planning Pt Prognosis for Sig. Practical Improv. w/in Reasonable Time: Fair Estimated Length of stay (days): 14 Anticipated D/C Destination: Home with Home Health Was Preadmission Assessment Accurate?: Yes
[2021-01-13] MEDS: Senna/Docusate Sodium 1 Tablet 2 TABLET PO (20:39)
[2021-01-13] MEDS: Pravastatin 40 MG Tablet PO (20:40)
[2021-01-13 22:00] VITALS: BP 104/52; PULSE 72; PULSE 74; RESP 16; TEMP 36.7; O2SAT 100
[2021-01-13 22:07] VITALS: PULSE 57; O2SAT 95
[2021-01-14] MEDS: oxyCODONE 5 MG Tablet PO ×3 (00:09→22:52)
[2021-01-14 00:21] LABS: Bedside Glucose 166 mg/dL (70-110)
--- NOTE | 2021-01-14 06:14 | NURSING ---
PT WT OBTAINED IN HIS WHEELCHAIR W THE FOOT RESTS TAKEN OFF AND HIS PROSTHETIC ON HIS LEFT LEG, PT STATED HIS PROSTHETIC WTS 7.2# PT WT 86.6KG W PROSTHETIC ON.
[2021-01-14] MEDS: Levothyroxine 100 MCG Tablet 200 MCG PO (06:18)
[2021-01-14 07:15] LABS: Bedside Glucose 70 mg/dL (70-110)
[2021-01-14] MEDS: Senna/Docusate Sodium 1 Tablet 2 TABLET PO ×2 (08:09→21:01)
[2021-01-14] MEDS: Doxycycline 100 MG CAPSULE PO ×2 (08:09→20:59)
[2021-01-14] MEDS: Lisinopril 2.5 MG Tablet PO (08:09)
[2021-01-14] MEDS: Citalopram 20 MG Tablet PO (08:09)
[2021-01-14 08:10] VITALS: BP 105/55; PULSE 62
[2021-01-14] MEDS: Metoprolol(XL)Succ 50 MG Tablet PO (08:10)
[2021-01-14] MEDS: Clopidogrel Bisulfate 75 MG Tablet PO (08:10)
[2021-01-14] MEDS: Aspirin E.C. 81 MG Tablet PO (08:10)
[2021-01-14] MEDS: predniSONE 5 MG Tablet 2.5 MG PO (08:10)
[2021-01-14] MEDS: Pantoprazole Sodium 40 MG Tablet PO (08:10)
[2021-01-14] MEDS: Juven (unflavored) Packet 1 PACKET PO (08:10)
[2021-01-14 08:11] VITALS: BP 105/55; PULSE 62; RESP 16; TEMP 36.2; O2SAT 100
[2021-01-14] MEDS: Menthol/Lanolin/Calamine/Znox 113 GM Tube 1 APPLIC TOPICAL ×2 (08:22→21:00)
--- NOTE | 2021-01-14 10:02 | PCM.PN.BLA ---
Progress Note Alonzo Carr is a 75 YO male with a PMH of DM II, PM/ AICD presence, COPD, CAD, hx of CABG, Hx of PTCA/stents, ischemic CM(19% EF), LAE, pulmonary hypertension, Depression, PVD, Diaphragmatic paralysis, tobacco dependence in remission, GERD, Glaucoma, HLD, ALL on BiPAP, L BKA, Hearing loss and recurrent osteomyelitis/cellulitis (MRSA and Pseudomonas) and non-healing wound of the RLE following transmetatarsal amputation of the R foot in October 2020 who was admitted to [facility] on 01/10/21 for a R BKA performed by Dr. Lopez. I reviewed the operative report and the tourniquet time was 91 minutes. He underwent drug coated balloon angioplasty of the right femoral artery by Dr. Busch within the past 6 months. He was transferred to the in acute rehab unit on 01/12/21 for 3 hours of therapy daily to help restore him to ambulatory status. He has a prosthesis for the L leg. Afebrile VSS - BP has been on the low side a few times Maintaining appropriate oxygen saturation on RA Oral intake is poor Discussed with nursing - no problems that need addressed Reviewed the PT/OT notes Medication list reviewed. Why is he on Prednisone? The blood sugar record was reviewed. BS's are low in the AM. He is currently on Lantus 10 units BID and scheduled Lispro with breakfast and supper. He got 5 units of Lispro with supper only once since admission to the rehab unit. He has been the Lantus BID regularly. I reviewed Dr. Bond's documentation and all recent lab work. Physical Exam Const alert, oriented x3 and no apparent distress Constitutional Narrative: I saw him in the therapy room and he was seated upright in a chair. Chest Chest: symmetrical chest wall rise Resp Resp Narrative: Diminished throughout with no crackles or wheezes. Not tachypneic and able to speak in full sentences. No accessory muscle use. Cardio no murmurs and no gallops Cardio Narrative: regular at a rate of 60- suspect this is paced rhythm. Distant heart sounds. Rate: other GI GI Narrative: soft, mildly distended, NT to palpation and normal BS's. He has pitting edema in the flanks but no pitting in the posterior thighs Extremity Extremity Narrative: dressing on the new R BKA was just changed so I will examine the next time it is changed and I am present. Skin Skin Narrative: no rashes Psych mental status grossly normal Psych Narrative: affect is flat Assessment & Plan Assessment/Plan (1) Debility: (2) History of right below knee amputation: (3) Below-knee amputation of left lower extremity: (4) Peripheral arterial occlusive disease: (5) Presence of permanent cardiac pacemaker: (6) Diabetes mellitus: (7) Coronary artery disease: (8) Ischemic cardiomyopathy with implantable cardioverter-defibrillator (ICD): (9) Obstructive sleep apnea: (10) Pulmonary HTN: (11) Chronic obstructive pulmonary disease: (12) Diaphragm paralysis: (13) Hyperlipidemia: (14) Gastroesophageal reflux disease: (15) Hypothyroidism: (16) Glaucoma: (17) Coronary artery disease involving [place] coronary artery of [place] heart: QUALIFIERS: Associated angina: without angina Qualified Code(s): I25.10 - Atherosclerotic heart disease of [place] coronary artery without angina pectoris (18) Macrocytic anemia: PLAN: 1. Continue the current drug regimen. Recheck the lab in the AM. 2. He is currently requiring 2 person assist to stand and pivot. His will not be able to manage him at this point. Will discuss the DC plan closer to the DC date. Visit Charges Inpatient E&M: 65697 Init Hosp L3
[2021-01-14 11:16] LABS: Bedside Glucose 88 mg/dL (70-110)
[2021-01-14] MEDS: 0.9% Saline Lock 10 ML Syringe IV ×2 (11:55→14:57)
[2021-01-14] MEDS: Acetaminophen 500 MG Tablet 1000 MG PO ×2 (13:42→20:59)
[2021-01-14] MEDS: Ondansetron ODT 4 MG Tablet PO (14:25)
[2021-01-14] MEDS: 0.9% Normal Saline 1,000 ML 50 ML IV (14:56)
[2021-01-14 16:20] LABS: Bedside Glucose 147 mg/dL (70-110)
--- NOTE | 2021-01-14 16:20 | NURSING ---
urine tea colored with 25ml total output bladder scan for 138ml. Wills catheter replaced d/t sediment clogging the tubbing. Dr Torres made aware. NS@50ml/hr and UA to be sent. Continue to monitor
[2021-01-14 20:48] VITALS: BP 101/48; PULSE 82; RESP 14; TEMP 36.5; O2SAT 100
[2021-01-14] MEDS: Pravastatin 40 MG Tablet PO (20:59)
[2021-01-14] MEDS: Mupirocin Ointment 22gm Tube 1 APPLIC TOPICAL (21:00)
[2021-01-14] MEDS: tiZANidine HCl 2 MG Tablet 4 MG PO (21:14)
[2021-01-14 22:41] LABS: Bedside Glucose 146 mg/dL (70-110)
[2021-01-14 22:54] LABS: Bacteria 0 SEEN /hpf (None Seen); Mucous, Urine 0 SEEN /hpf (<or=2+); Squamous Epithelial Cells - UA 0 SEEN /hpf (0-5)
[2021-01-14 22:57] LABS: Color, Urine Yellow (Yellow); Glucose, Dipstick Normal (Normal); Ketone-Dipstick 5 mg/dl (Negative); Leukocyte Esterase-Dipstick 500 /ul (Negative); Nitrite-Dipstick Negative (Negative); Occult Blood-Urine 250 /ul (Negative); Protein-Dipstick 100 mg/dl (Negative); Urine Clarity Cloudy (Clear); Urine Urobilinogen 4 mg/dl (Normal)
[2021-01-14 23:07] LABS: Urine Bilirubin Dipstick 1 mg/dL (Negative)
[2021-01-14 23:10] LABS: Red Blood Cells-Urine > 100 SEEN /hpf (0-5)
[2021-01-14 23:13] LABS: White Blood Cells 25-50 SEEN /hpf (0-5)
[2021-01-15] VITALS (14 sets, daily range): BP systolic 91–110; BP diastolic 51–58; PULSE 60–70; RESP 16–17; TEMP 36.4–37.2; O2SAT 94–100
[2021-01-15] MEDS: Acetaminophen 500 MG Tablet 1000 MG PO ×3 (05:33→22:04)
[2021-01-15] MEDS: Levothyroxine 100 MCG Tablet 200 MCG PO (05:33)
[2021-01-15] MEDS: tiZANidine HCl 2 MG Tablet 4 MG PO ×2 (06:29→18:27)
[2021-01-15] MEDS: Insulin Lispro 100 UNIT/ML INSULN.PEN SC ×4 (06:56→22:04)
[2021-01-15 07:00] LABS: Bedside Glucose 177 mg/dL (70-110)
[2021-01-15] MEDS: predniSONE 5 MG Tablet 2.5 MG PO (07:36)
[2021-01-15] MEDS: Clopidogrel Bisulfate 75 MG Tablet PO (07:37)
[2021-01-15] MEDS: Citalopram 20 MG Tablet PO (07:37)
[2021-01-15] MEDS: Pantoprazole Sodium 40 MG Tablet PO (07:38)
[2021-01-15] MEDS: Metoprolol(XL)Succ 50 MG Tablet PO (07:38)
[2021-01-15] MEDS: Lisinopril 2.5 MG Tablet PO (07:38)
[2021-01-15] MEDS: Aspirin E.C. 81 MG Tablet PO (07:38)
[2021-01-15] MEDS: Juven (unflavored) Packet 1 PACKET PO (07:40)
[2021-01-15] MEDS: Menthol/Lanolin/Calamine/Znox 113 GM Tube 1 APPLIC TOPICAL ×2 (07:44→22:06)
[2021-01-15 08:37] LABS: Hemoglobin 7.8 g/dL (13.0-16.5); Mean Corp Hgb Conc 31.2 g/dL (32-36); Mean Corpuscular Hgb 31.7 pg (27.0-32.0); Mean Corpuscular Volume 101.6 fL (80-94); Mean Platelet Vol. 9.4 fl (6.2-12.0); Platelet Count 159 K/mm3 (150-450); RBC Distribution Width CV 14.4 % (11.6-14.6); RBC Distribution Width SD 53.1 fl (35.1-43.9); Red Blood Count 2.46 M/mm3 (4.6-6.2); White Blood Count 5.5 K/mm3 (4.4-11.0)
[2021-01-15 09:18] LABS: Anion Gap 4 (5-15); BUN 39 mg/dL (7-18); BUN/Creat Ratio 25.2 RATIO (10-20); Calcium,Total 7.9 mg/dL (8.5-10.1); Chloride 97 mmol/L (98-107); Creatinine, Serum 1.55 mg/dL (0.70-1.30); EST Glomerular Filtration Rate 47 mL/min (>60); Est Glom Filt Rate - Afr Amer 57 mL/min (>60); Estimated Creatinine Clearance 44.53 ml/min; Glucose 183 mg/dL (74-106); Magnesium 1.3 mg/dL (1.6-2.6); Phosphorus 3.5 mg/dL (2.5-4.9); Potassium 4.3 mmol/L (3.5-5.1); Sodium Level 132 mmol/L (136-145)
[2021-01-15] MEDS: Doxycycline 100 MG CAPSULE PO ×2 (09:19→22:03)
[2021-01-15 11:01] LABS: Bedside Glucose 266 mg/dL (70-110)
[2021-01-15] MEDS: NYSTATIN 500,000 UNIT/5 ML UDC 500000 UNIT PO ×4 (11:49→22:04)
[2021-01-15] MEDS: 0.9% Normal Saline 1,000 ML 50 ML IV (11:56)
[2021-01-15 16:46] LABS: Bedside Glucose 325 mg/dL (70-110)
[2021-01-15 21:45] LABS: Bedside Glucose 312 mg/dL (70-110)
[2021-01-15] MEDS: Pravastatin 40 MG Tablet PO (22:04)
[2021-01-15] MEDS: Mupirocin Ointment 22gm Tube 1 APPLIC TOPICAL (22:05)
--- NOTE | 2021-01-15 23:54 | NURSING ---
2nd unit of PRBCs started and pt tolerating well. No s/sx of reaction. Will continue to monitor.
[2021-01-16] VITALS (8 sets, daily range): BP systolic 90–105; BP diastolic 50–58; PULSE 56–70; RESP 14–16; TEMP 36.3–37.2; O2SAT 96–100
[2021-01-16] MEDS: Acetaminophen 500 MG Tablet 1000 MG PO ×3 (06:27→21:35)
[2021-01-16] MEDS: Levothyroxine 100 MCG Tablet 200 MCG PO (06:27)
[2021-01-16] MEDS: 0.9% Saline Lock 10 ML Syringe IV ×2 (06:30→22:03)
[2021-01-16 06:40] LABS: Bedside Glucose 239 mg/dL (70-110)
[2021-01-16] MEDS: Insulin Lispro 100 UNIT/ML INSULN.PEN SC ×4 (08:21→21:39)
[2021-01-16] MEDS: Pantoprazole Sodium 40 MG Tablet PO (08:22)
[2021-01-16] MEDS: Aspirin E.C. 81 MG Tablet PO (08:22)
[2021-01-16] MEDS: Clopidogrel Bisulfate 75 MG Tablet PO (08:22)
[2021-01-16] MEDS: Doxycycline 100 MG CAPSULE PO ×2 (08:22→21:33)
[2021-01-16] MEDS: Magnesium Chloride 64 MG Delay Rel.Tablet 128 MG PO ×2 (08:22→21:34)
[2021-01-16] MEDS: Metoprolol(XL)Succ 50 MG Tablet PO (08:22)
[2021-01-16] MEDS: Citalopram 20 MG Tablet PO (08:22)
[2021-01-16] MEDS: predniSONE 5 MG Tablet 2.5 MG PO (08:25)
[2021-01-16] MEDS: tiZANidine HCl 2 MG Tablet 4 MG PO (08:32)
[2021-01-16] MEDS: Menthol/Lanolin/Calamine/Znox 113 GM Tube 1 APPLIC TOPICAL ×2 (08:33→21:33)
[2021-01-16] MEDS: NYSTATIN 500,000 UNIT/5 ML UDC 500000 UNIT PO ×4 (10:42→21:34)
[2021-01-16] MEDS: Furosemide 20 MG/2 ML VIAL IV (10:43)
[2021-01-16 11:20] LABS: Bedside Glucose 304 mg/dL (70-110)
--- NOTE | 2021-01-16 12:13 | PN_ITS ---
Progress Note Afebrile The blood pressure this morning at 830 was 95/51. Blood pressure at 1030 is 105/58. He denies dizziness/lightheadedness. Heart rate is stable in the 60s. Maintaining appropriate oxygen saturation on a 2 L nasal cannula. Oral intake yesterday was 1400 which is better than he has been doing. He has had 210 cc so far today. Urine output on 01/14/2021 was only 225 cc. Yesterday the urine output was 700 cc. Last bowel movement was yesterday. Discussed with nursing - no problems that need addressed Reviewed the PT/OT/ST notes Medication list reviewed. Blood sugar record was reviewed. BS's have increased since the PM Lantus was discontinued for hypoglycemia. He is on Lantus 10 in the AM and SSI coverage for meals. All lab from yesterday was reviewed yesterday with nursing. He has had 2 units of blood and 2 GM of IV MAG and he has been started on LA Mag supplement BID Héctor denies feeling depressed but he is tired all the time. He was placed on antidepressant 4 to 6 weeks ago. Initially he was on sertraline and had adverse side effects. He was then tried on citalopram and is having a lot of stomach upset, cramps and diarrhea. He is less irritable. He associates the being drowsy all the time with taking tizanidine. At home he was taking a quarter of a tablet in the a.m. and a half of a tablet later in the day. He was sleeping 17-18 hours a day. Physical Exam Const alert and oriented x3 Constitutional Narrative: He was unable to get out of bed yesterday due to fatigue and weakness. His color is a little better today. He is lying at approximately 30 degrees in the bed and he is not tachypneic, has no conversational dyspnea and denies shortness of breath. Chest Chest: symmetrical chest wall rise Resp Resp Narrative: Very diminished throughout with no crackles or wheezes. Not tachypneic and able to speak in full sentences. No accessory muscle use. Cardio no murmurs and no gallops Cardio Narrative: irregular irregular at a rate of 60- 70. Distant heart sounds. Jugular Venous Distention: JVD Rate: other GI GI Narrative: soft, mildly distended, NT to palpation and normal BS's. He has increased pitting edema in the flanks and a small amount of pitting in the posterior thighs Extremity Extremity Narrative: dressing on the new R BKA was just changed so I will examine the next time it is changed and I am present. Skin Skin Narrative: no rashes Psych mental status grossly normal Psych Narrative: affect is flat Assessment & Plan Assessment/Plan (1) Debility: (2) History of right below knee amputation: (3) Acute blood loss anemia: (4) Hypomagnesemia: (5) Macrocytic anemia: (6) Chronic systolic congestive heart failure: (7) Diabetes mellitus: QUALIFIERS: Diabetes mellitus type: type 2 Diabetes mellitus skilled nursing insulin use: with skilled nursing use Diabetes mellitus complication status: with circulatory complication PLAN: 1. Decrease citalopram to 10 mg p.o. every morning and add Wellbutrin XL 150 mg p.o. every morning. Plan to discontinue citalopram in 7 to 10 days. 2. CBC with differential, CMP, magnesium, phosphorus in the a.m. If the hemoglobin is less than 10 we will transfuse the third unit of packed red blood cells. 3. Discontinue IV fluids 4. Decrease the tizanidine to 2 mg p.o. every 8 hours as needed muscle spasms 5. Increase sliding scale insulin coverage to high-dose. Increased a.m. Lantus to 16 units every morning. 6. He tells me that he was taking a diuretic 2-3 times a day as an OP. Will start Bumex in the AM......Bumex rather than Lasix due to the hypoalbuminemia. 7. there is no growth on the urine culture so will continue with the doxy he is already on and not add an additional antibiotic at this time. 8. Awaiting the results of the cortisol from yesterday. If the cortisol is low will need to increase the Prednisone due to stress he is under at this time. 9. Check a hemoccult stool Visit Charges Inpatient E&M: 76834 Subs Hosp L2
[2021-01-16 16:56] LABS: Bedside Glucose 270 mg/dL (70-110)
[2021-01-16 21:26] LABS: Bedside Glucose 188 mg/dL (70-110)
[2021-01-16] MEDS: Mupirocin Ointment 22gm Tube 1 APPLIC TOPICAL (21:33)
[2021-01-16] MEDS: Pravastatin 40 MG Tablet PO (21:34)
[2021-01-17 05:51] LABS: Absolute Lymphocyte Count 0.46 X10^3/uL (0.83-4.51); Absolute Neutrophil Count 5.9 X10^3/uL (2.0-7.7); Basophil# 0.04 X10^3/uL; Basophil% 0.5 % (0-1); Eosinophil# 0.12 X10^3/uL; Eosinophils% 1.6 % (0-5); Hematocrit 32.8 % (40-54); Hemoglobin 10.8 g/dL (13.0-16.5); Lymphocyte # 0.46 X10^3/ul (0.83-4.51); Lymphocyte % 6.3 % (19-41); Mean Corp Hgb Conc 32.9 g/dL (32-36); Mean Corpuscular Hgb 31.2 pg (27.0-32.0); Mean Corpuscular Volume 94.8 fL (80-94); Mean Platelet Vol. 8.7 fl (6.2-12.0); Monocyte# 0.74 X10^3/uL; Monocyte% 10.2 % (0-10); NRBC Flagged by Analyzer 0 % (0-5); Neutrophil % 81.1 % (47-70); POSITIVE DIFFERENTIAL YES; Platelet Count 175 K/mm3 (150-450); RBC Distribution Width CV 14.6 % (11.6-14.6); RBC Distribution Width SD 50.5 fl (35.1-43.9); Red Blood Count 3.46 M/mm3 (4.6-6.2); White Blood Count 7.3 K/mm3 (4.4-11.0)
[2021-01-17] MEDS: tiZANidine HCl 2 MG Tablet PO (05:51)
[2021-01-17] MEDS: Levothyroxine 100 MCG Tablet 200 MCG PO (05:51)
[2021-01-17] MEDS: Acetaminophen 500 MG Tablet 1000 MG PO ×3 (05:52→21:27)
[2021-01-17] MEDS: Ondansetron ODT 4 MG Tablet PO (05:52)
[2021-01-17 05:58] LABS: Differential Indicated SCAN CRITERIA MET
[2021-01-17 06:16] LABS: ALB/GLOB Ratio 0.8 RATIO (0.9-2.4); AST(SGOT) 17 U/L (15-37); Alanine Aminotransfer ALT/SGPT 11 U/L (16-61); Albumin, Serum 2.7 g/dL (3.2-5.0); Alkaline Phosphatase 110 U/L (45-117); Anion Gap 6 (5-15); BUN 45 mg/dL (7-18); BUN/Creat Ratio 35.2 RATIO (10-20); Calcium,Total 8.4 mg/dL (8.5-10.1); Chloride 96 mmol/L (98-107); Creatinine, Serum 1.28 mg/dL (0.70-1.30); EST Glomerular Filtration Rate 58 mL/min (>60); Est Glom Filt Rate - Afr Amer 71 mL/min (>60); Estimated Creatinine Clearance 53.93 ml/min; Globulin 3.4 g/dL (2.2-4.2); Glucose 158 mg/dL (74-106); Magnesium 1.5 mg/dL (1.6-2.6); Phosphorus 2.9 mg/dL (2.5-4.9); Potassium 4.6 mmol/L (3.5-5.1); Protein, Total 6.1 g/dL (6.4-8.2); Sodium Level 130 mmol/L (136-145)
[2021-01-17 06:40] LABS: Bedside Glucose 177 mg/dL (70-110)
[2021-01-17 06:55] VITALS: O2SAT 98
[2021-01-17 07:02] VITALS: BP 123/62; PULSE 76; RESP 16; TEMP 36.3; O2SAT 100
[2021-01-17] MEDS: Insulin Lispro 100 UNIT/ML INSULN.PEN SC ×4 (08:00→22:00)
[2021-01-17] MEDS: Aspirin E.C. 81 MG Tablet PO (08:00)
[2021-01-17] MEDS: Bumetanide 2 MG Tablet 4 MG PO (08:01)
[2021-01-17] MEDS: Citalopram 10 MG Tablet PO (08:02)
[2021-01-17] MEDS: Doxycycline 100 MG CAPSULE PO ×2 (08:02→21:28)
[2021-01-17] MEDS: Magnesium Chloride 64 MG Delay Rel.Tablet 128 MG PO ×2 (08:03→21:27)
[2021-01-17] MEDS: Clopidogrel Bisulfate 75 MG Tablet PO (08:03)
[2021-01-17] MEDS: NYSTATIN 500,000 UNIT/5 ML UDC 500000 UNIT PO ×4 (08:03→21:28)
[2021-01-17 08:04] VITALS: PULSE 76
[2021-01-17] MEDS: Metoprolol(XL)Succ 50 MG Tablet PO (08:04)
[2021-01-17] MEDS: Pantoprazole Sodium 40 MG Tablet PO (08:04)
[2021-01-17] MEDS: buPROPion (XL) 150 MG TABLET.XL PO (08:04)
[2021-01-17] MEDS: predniSONE 5 MG Tablet 2.5 MG PO (08:04)
[2021-01-17] MEDS: Menthol/Lanolin/Calamine/Znox 113 GM Tube 1 APPLIC TOPICAL ×2 (08:07→21:28)
[2021-01-17 08:57] VITALS: BP 102/57; BP 106/51; PULSE 66; PULSE 67
--- NOTE | 2021-01-17 10:00 | CASEMGMT ---
Social Work Team meeting held. Patient present as well as patient spouse. No discharge date has been set. Patient to continue with further care and treatment on the Rehab Unit. Patient plans to discharge to home with spouse. Patient currently requires x2 assist for some mobility/task. Patient spouse is only support in the home, patient will need to be a minimum of x1 assist in order to be able to return to home. Patient approved 16 Medicare days with patient to discharge on or by 01/28. This social work supervisor did broach topic of half-way home placement if needed. Patient to be re-team next week. Will continue to follow. Karol HAIDER, MARCOS
[2021-01-17] MEDS: oxyCODONE 5 MG Tablet PO ×2 (11:15→15:15)
[2021-01-17 11:16] LABS: Bedside Glucose 220 mg/dL (70-110)
--- NOTE | 2021-01-17 12:09 | PCM.PN.BLA ---
Progress Note Alonzo was seen on team rounds today. His Alexia was present in the room for rounds. Afebrile VSS -blood pressure is better with discontinuation of lisinopril and hydration. Blood pressure this a.m. is 123/62. He was orthostatic negative when going from lying down to sitting up. He is too unsteady for nursing to get him up standing Maintaining appropriate oxygen saturation on 2-3 LPM NC Oral intake is improved. The urine in the Wills bag is pale yellow/clear and he has had 800 cc's already since 0800. He was started on Bumex today. Discussed with nursing - He is complaining that he did not sleep at all last night due to pain and he is blaming this on the decrease in the dose of the Zanaflex which he and I talked about yesterday because he was too sleepy during the day. He refused to Oxycodone last night and this morning. Reviewed the PT/OT notes Medication list reviewed. BS record was reviewed and the blood sugars are getting under better control. All lab from today was personally reviewed. Magnesium is still low at 1.5. Hemoglobin has increased to 10.8 from 7.8 following transfusion of 2 units of packed red blood cells. White blood cell count is within normal limits. Neutrophils remain elevated at 81.1%. Platelets are within normal limits. Sodium is 130 today and I suspect this may be due to mild CHF due to blood and hydration and IV mag coupled with better oral intake. The BUN is 45 but the creatinine is down to 1.28. The a.m. cortisol from 01/15/2021 is 12.3 which is within normal limits however I would think that with the stress of surgery, pain and infection it should be higher. May need to consider increasing the Prednisone to 5mg daily if he gets lightheaded. Denies SOB, lightheadedness, abd pain or cramping. His main concern today is that he had pain last night and he could not sleep. The pain is in the R knee and also has pain in the buttocks and sometimes in the Left upper lateral thigh. He describes this has burning and it sometimes feels wet in his buttocks. He has had epidural by Dr. Whitman in the past. The pain in the stump and the knee are different than the pain in the buttocks. Physical Exam Const alert and no apparent distress Constitutional Narrative: Lying in bed. He seems a little off today in his thinking....possibly from not sleeping last night......forgetful. Does not seem to understand that the Zanaflex is for muscle spasm and the Oxycodone should be used as needed for pain. He has had Percocet in the past and had no adverse reactions. Resp normal respiratory effort Resp Narrative: very diminished breath sounds. No accessory muscle use. No conversational dyspnea and able to speak in full sentences. No wheezes and no crackles appreciated. Cardio Cardio Narrative: Irregular rhythm, rate controlled with metoprolol. No gallops. GI GI Narrative: Soft, nontender, nondistended, no guarding with palpation, normal bowel sounds. Extremity Extremity Narrative: The posterior thighs are soft and nonpitting. He continues to have pitting edema in the flanks. Skin Wounds: wounds noted Wound Narrative: The incision is intake and has a little crusted DC but no active purulent DC. There are 3 fluid filled blisters on the stump distally and apparently they have been present. There is mild redness around the incision but no significant increase in the warmth to touch. He has pain when I palpate the lateral side on the stump. He has no pain with ROM of the knee and there is no redness and no swelling and no effusion present. There is some tightness in the hamstring on the right. The skin is not doughy on the stump and there is no redness around the blisters. Assessment & Plan Assessment/Plan (1) History of right below knee amputation: (2) Acute renal failure: QUALIFIERS: Acute renal failure type: unspecified Qualified Code(s): N17.9 - Acute kidney failure, unspecified (3) Acute blood loss anemia: (4) Hypomagnesemia: (5) Hyponatremia: (6) Chronic systolic congestive heart failure: (7) Pulmonary HTN: (8) Chronic obstructive pulmonary disease: QUALIFIERS: COPD type: unspecified COPD Qualified Code(s): J44.9 - Chronic obstructive pulmonary disease, unspecified (9) Peripheral arterial occlusive disease: (10) Obstructive sleep apnea: (11) Diabetes mellitus: QUALIFIERS: Diabetes mellitus long distance operator insulin use: with long distance operator use Diabetes mellitus complication status: with circulatory complication Diabetes mellitus complication detail: with other circulatory complications PLAN: 1. continue to monitor the blood sugars AC and HS to determine the daily need for Lispro. 2. UTI ruled out - final culture had no growth 3. Bumex started today - will recheck a BMP in the AM 4. supplement with IV magnesium today to maintain the Mag >1.[address] Whitman for pain management - pt is now agreeable to taking the Oxycodone for pain. Will continue with the Zanaflex 2 mg Q 8H PRN 6. I sent a text to Dr. Lopez regarding the blisters 7. The pain in the buttocks sounds as if it is neuropathic. May benefit from low dose Gabapentin or Lyrica......says that he is allergic to Gabapentin because it caused diarrhea. Await Dr. Whitman's recommendations. 8. Continue the PO mag and recheck the level in a few days. 9. Hemoccult stool ordered Visit Charges Inpatient E&M: 14810 Subs Hosp L2
[2021-01-17 16:31] LABS: Bedside Glucose 271 mg/dL (70-110)
[2021-01-17 19:30] VITALS: BP 117/54; PULSE 72; RESP 18; TEMP 36.6; O2SAT 98
--- NOTE | 2021-01-17 20:15 | PCM.PN.SRG ---
Subjective Subjective Postop #7 Patient known to me. He underwent a right below knee amputation on 01/10/21. Objective Data Objective Data Vital Signs: Vital Signs Temp Pulse Resp BP Pulse Ox 97.8 F 72 18 117/54 L 98 01/17/21 19:30 01/17/21 19:30 01/17/21 19:30 01/17/21 19:30 01/17/21 19:30 Oxygen Flow Rate (L/min) 2 Oxygen Delivery Method Nasal Cannula Weight: 194 lb 14.218 oz Body Mass Index (BMI) 26.1 Intake & Output: Intake and Output for Last 24 Hours 01/15/21 01/16/21 01/17/21 23:59 23:59 23:59 Intake Total 3244.83 / 3244.83 33 / 33 1114 / 1114 Output Total 737 / 737 753 / 753 2479 / 2479 Balance 2507.83 / 2507.83 1250.33 / 1250.33 -1365 / -1365 Lab / Micro Data Attestation: I reviewed the patient's lab results. Result Diagrams: 01/20/21 05:34 01/23/21 06:24 Labs: Laboratory Results - last 24 hr 01/15/21 11:02: Cortisol 12.30 01/16/21 21:19: POC Glucose 188 H 01/17/21 05:44: WBC 7.3, RBC 3.46 L, Hgb 10.8 L, Hct 32.8 L, MCV 94.8 H D, MCH 31.2, MCHC 32.9 D, RDW Std Deviation 50.5 H, RDW Coeff of Jac 14.6, Plt Count 175, MPV 8.7, Immature Gran % (Auto) 0.300, Neut % (Auto) 81.1 H, Lymph % (Auto) 6.3 L, Waller % (Auto) 10.2 H, Eos % (Auto) 1.6, Baso % (Auto) 0.5, Absolute Neuts (auto) 5.9, Absolute Lymphs (auto) 0.46 L, Nucleated RBC % 0 01/17/21 05:44: Sodium 130 L, Potassium 4.6, Chloride 96 L, Carbon Dioxide 28.0, Anion Gap 6, BUN 45 H, Creatinine 1.28, Estim Creat Clear Calc 53.93, Est GFR (MDRD) Af Amer 71, Est GFR (MDRD) Non-Af 58 L, BUN/Creatinine Ratio 35.2 H, Glucose 158 H, Calcium 8.4 L, Phosphorus 2.9, Magnesium 1.5 L, Total Bilirubin 1.20 H, AST 17, ALT 11 L, Alkaline Phosphatase 110, Total Protein 6.1 L, Albumin 2.7 L, Globulin 3.4, Albumin/Globulin Ratio 0.8 L 01/17/21 06:18: POC Glucose 177 H 01/17/21 11:12: POC Glucose 220 H 01/17/21 16:21: POC Glucose 271 H Micro: Microbiology 01/14/21 22:44 Urine Catheter - Catheter Urine Culture - Final Culture exhibits no growth. Physical Exam Narrative General - Alert and Oriented. Extremities - Right below knee amputation stump incision is dry and intact. Postoperative swelling noted. Couple areas of superficial epidermolysis blistering noted. Underlying dermis appears viable. Probably related to postoperative swelling. Puts pressure on the overlying skin. Will monitor. For the exam, it was noted the compression jigar wrap was a little loose. Neuro - CN II-XII grossly intact. Psych - Normal mood and affect. Assessment & Plan Assessment/Plan (1) Status post below knee amputation of right lower extremity: (2) Osteomyelitis: (3) Personal history of Methicillin resistant Staphylococcus aureus infection: (4) Diabetes mellitus: QUALIFIERS: Diabetes mellitus senior living insulin use: with manager intermediate use Diabetes mellitus complication status: with circulatory complication Diabetes mellitus complication detail: with other circulatory complications (5) Former smoker: (6) Status post below-knee amputation of left lower extremity: PLAN: PATIENT IS CURRENTLY GETTING POSTOP REHAB. HE HAS POSTOPERATIVE SWELLING TO HIS RIGHT BKA STUMP WHICH HAS RESULTED IN SOME AREAS OF SUPERFICIAL EPIDERMOLYSIS BLISTERING. WILL OBSERVE. IF IT PROGRESSES TO A FULL THICKNESS WOUND, THEN WOUND CARE WILL BE INSTITUTED WITH A SILVER DRESSING OR DAKIN'S DRESSING CHANGES. A WOUND CULTURE WOULD BE OBTAINED AT THAT TIME. A POSITIVE CULTURE WILL NECESSITATE ANTIBIOTIC THERAPY. I NOTED THE COMPRESSION JIGAR WRAP WAS A LITTLE LOOSE TODAY. I REWRAPPED THE STUMP WITH MORE COMPRESSION. WILL PULL THE DRAIN IN 10-14 DAYS. WILL REMOVE THE SUTURES IN 3 WEEKS.
[2021-01-17] MEDS: 0.9% Saline Lock 10 ML Syringe IV (21:18)
[2021-01-17] MEDS: tiZANidine HCl 2 MG Tablet 4 MG PO (21:27)
[2021-01-17] MEDS: oxyCODONE HCl Cr 10 MG Tablet PO (21:28)
[2021-01-17] MEDS: Pravastatin 40 MG Tablet PO (21:28)
[2021-01-17 21:30] VITALS: PULSE 72; O2SAT 98
[2021-01-17 22:30] LABS: Bedside Glucose 188 mg/dL (70-110)
[2021-01-18] MEDS: Acetaminophen 500 MG Tablet 1000 MG PO ×3 (05:21→21:13)
[2021-01-18] MEDS: tiZANidine HCl 2 MG Tablet PO ×2 (05:22→12:51)
[2021-01-18] MEDS: Levothyroxine 100 MCG Tablet 200 MCG PO (05:22)
[2021-01-18 06:33] LABS: Anion Gap 6 (5-15); BUN 46 mg/dL (7-18); BUN/Creat Ratio 40.4 RATIO (10-20); Calcium,Total 8.2 mg/dL (8.5-10.1); Chloride 97 mmol/L (98-107); Creatinine, Serum 1.14 mg/dL (0.70-1.30); EST Glomerular Filtration Rate 67 mL/min (>60); Est Glom Filt Rate - Afr Amer 81 mL/min (>60); Estimated Creatinine Clearance 60.55 ml/min; Glucose 153 mg/dL (74-106); Potassium 4.6 mmol/L (3.5-5.1); Sodium Level 133 mmol/L (136-145)
[2021-01-18 06:51] LABS: Bedside Glucose 158 mg/dL (70-110)
[2021-01-18 08:01] VITALS: BP 97/48; PULSE 60; RESP 18; TEMP 36.3; O2SAT 100
[2021-01-18] MEDS: Aspirin E.C. 81 MG Tablet PO (08:36)
[2021-01-18] MEDS: Insulin Lispro 100 UNIT/ML INSULN.PEN SC ×3 (08:36→17:07)
[2021-01-18] MEDS: predniSONE 5 MG Tablet 2.5 MG PO (08:36)
[2021-01-18] MEDS: Doxycycline 100 MG CAPSULE PO ×2 (08:37→21:11)
[2021-01-18] MEDS: Citalopram 10 MG Tablet PO (08:37)
[2021-01-18] MEDS: Magnesium Chloride 64 MG Delay Rel.Tablet 128 MG PO ×2 (08:37→21:12)
[2021-01-18] MEDS: Bumetanide 2 MG Tablet 4 MG PO (08:37)
[2021-01-18] MEDS: NYSTATIN 500,000 UNIT/5 ML UDC 500000 UNIT PO ×4 (08:38→21:12)
[2021-01-18] MEDS: buPROPion (XL) 150 MG TABLET.XL PO (08:38)
[2021-01-18] MEDS: Pantoprazole Sodium 40 MG Tablet PO (08:38)
[2021-01-18] MEDS: Clopidogrel Bisulfate 75 MG Tablet PO (08:38)
--- NOTE | 2021-01-18 09:22 | PCM.PN.BLA ---
Progress Note Afebrile VSS-orthostatics have not been done yet. Pulse ox is 98% on 2 L and when increased to 3 L at night it is 100%. Oral intake is fair for the past 24 hours. Fluid balance yesterday was -1910. Discussed with nursing - no problems that need addressed Reviewed the PT/OT notes Medication list reviewed. Good OP with Bumex yesterday.. Wt is not recorded yet today. The blood sugar record was reviewed. At bedtime blood sugar last night was 188 and this morning he is 158. All laboratory was personally reviewed. Following diuresis the sodium is increased from 1 30-1 33. Potassium is stable at 4.6. The BUN is 4.6 and the creatinine has decreased 1.14 from 1.28. Minimal pain in the R LE today. Slept well last night. He is a little drowsy with the addition of the Oxycontin but, I suspect this will resolve over the next few days. Denies dizziness and also denies SOB, CP. Physical Exam Const Constitutional Narrative: A little drowsy. He has a poor short term memory. I do not know if this is due to the drugs for pain relief or this is his baseline. Resp Resp Narrative: Better air exchange - has Bibasilar crackles today. No wheezing, no conversational dyspnea and no tachypnea. Able to speak in complete sentences. Cardio Cardio Narrative: irreg, rate controlled GI soft to palpation, non-tender and non-distended GI Narrative: still with some pitting edema in the flanks but, better than the past 2 days. Extremity Extremity Narrative: no posterior thigh edema but, still with edema in the flanks. Skin Skin Narrative: I examined the incision for the R BKA with wound care nurse today and she thinks it looks better than the last time she viewed it. Dr. Lopez looked at it also and he is happy with the way the stump looks. The larger of the blisters has popped and is drying up. Mild erythema around the incision with no purulent DC and no increased warmth to touch. No evidence infection. Wounds: wounds noted Psych Psych Narrative: poor short term memory Assessment & Plan Assessment/Plan (1) Debility: (2) History of right below knee amputation: (3) Acute on chronic systolic CHF (congestive heart failure): (4) Acute renal failure: QUALIFIERS: Acute renal failure type: unspecified Qualified Code(s): N17.9 - Acute kidney failure, unspecified (5) Hypomagnesemia: (6) Diabetes mellitus: QUALIFIERS: Diabetes mellitus complication detail: with other circulatory complications Diabetes mellitus complication status: with circulatory complication Diabetes mellitus intermediate insulin use: with intermediate school teacher use (7) Chronic pain: (8) Hyponatremia: (9) Peripheral arterial occlusive disease: (10) Coronary artery disease: (11) Diaphragm paralysis: (12) Ischemic cardiomyopathy with implantable cardioverter-defibrillator (ICD): (13) Pulmonary HTN: (14) Chronic systolic congestive heart failure: PLAN: 1. Increase the AM Lantus to 22 units and give an extra 6 units now. Add 5 units of Lantus at HS. change the SSI to TID AC 2. Continue therapy. 3. Continue the current pain regimen. 4. Adjust insulin to keep all BS's < 180 if possible to decrease risk of infection. 5. suspect he will be going to SNF at [place]. 6. Hyponatremia is improving with diuresis and the Creat is also improving. Continue the Bumex and daily weights. Visit Charges Inpatient E&M: 36065 Subs Hosp L2
--- NOTE | 2021-01-18 10:41 | NURSING ---
wound photo: right BKA
--- NOTE | 2021-01-18 10:41 | NURSING ---
wound photo: right leg
--- NOTE | 2021-01-18 10:43 | NURSING ---
wound photo: right leg
[2021-01-18] MEDS: oxyCODONE HCl Cr 10 MG Tablet PO ×2 (10:55→21:12)
[2021-01-18 11:10] LABS: Bedside Glucose 255 mg/dL (70-110)
[2021-01-18 11:14] VITALS: BP 99/45; PULSE 60
[2021-01-18 16:41] LABS: Bedside Glucose 211 mg/dL (70-110)
[2021-01-18 19:31] VITALS: BP 107/63; PULSE 60; RESP 16; TEMP 36.4; O2SAT 100
[2021-01-18] MEDS: Menthol/Lanolin/Calamine/Znox 113 GM Tube 1 APPLIC TOPICAL (21:10)
[2021-01-18] MEDS: Mupirocin Ointment 22gm Tube 1 APPLIC TOPICAL (21:10)
[2021-01-18] MEDS: Pravastatin 40 MG Tablet PO (21:13)
[2021-01-18] MEDS: tiZANidine HCl 2 MG Tablet 4 MG PO (22:23)
[2021-01-18] MEDS: 0.9% Saline Lock 10 ML Syringe IV (22:39)
[2021-01-18 22:46] LABS: Bedside Glucose 136 mg/dL (70-110)
[2021-01-19] MEDS: Acetaminophen 500 MG Tablet 1000 MG PO ×3 (05:33→20:12)
[2021-01-19] MEDS: tiZANidine HCl 2 MG Tablet PO ×2 (05:33→15:14)
[2021-01-19] MEDS: oxyCODONE 5 MG Tablet PO ×2 (05:34→17:00)
[2021-01-19] MEDS: Levothyroxine 100 MCG Tablet 200 MCG PO (05:34)
[2021-01-19 07:21] LABS: Bedside Glucose 80 mg/dL (70-110)
[2021-01-19 07:48] VITALS: O2SAT 98
[2021-01-19 08:31] VITALS: BP 97/48; PULSE 60; RESP 18; TEMP 36.6; O2SAT 100
[2021-01-19] MEDS: Aspirin E.C. 81 MG Tablet PO (08:52)
[2021-01-19] MEDS: Citalopram 10 MG Tablet PO (08:52)
[2021-01-19] MEDS: Magnesium Chloride 64 MG Delay Rel.Tablet 128 MG PO ×2 (08:52→20:13)
[2021-01-19] MEDS: Clopidogrel Bisulfate 75 MG Tablet PO (08:52)
[2021-01-19] MEDS: Doxycycline 100 MG CAPSULE PO ×2 (08:52→20:13)
[2021-01-19] MEDS: Pantoprazole Sodium 40 MG Tablet PO (08:52)
[2021-01-19] MEDS: predniSONE 5 MG Tablet 2.5 MG PO (08:52)
[2021-01-19] MEDS: buPROPion (XL) 150 MG TABLET.XL PO (08:53)
[2021-01-19] MEDS: Menthol/Lanolin/Calamine/Znox 113 GM Tube 1 APPLIC TOPICAL ×2 (09:00→20:21)
[2021-01-19 09:35] VITALS: O2SAT 100
[2021-01-19] MEDS: Bumetanide 2 MG Tablet 4 MG PO (10:13)
[2021-01-19] MEDS: oxyCODONE HCl Cr 10 MG Tablet PO ×2 (10:13→21:46)
[2021-01-19 12:01] LABS: Bedside Glucose 189 mg/dL (70-110)
[2021-01-19] MEDS: Insulin Lispro 100 UNIT/ML INSULN.PEN SC (12:17)
[2021-01-19] MEDS: Carvedilol 3.125 MG TABLET PO ×2 (12:42→18:45)
[2021-01-19] MEDS: NYSTATIN 500,000 UNIT/5 ML UDC 500000 UNIT PO (14:40)
[2021-01-19] MEDS: Gabapentin 100 MG Capsule PO (17:00)
[2021-01-19 17:11] LABS: Bedside Glucose 134 mg/dL (70-110)
[2021-01-19 19:29] VITALS: BP 114/61; PULSE 90; RESP 20; TEMP 36.3; O2SAT 97
[2021-01-19] MEDS: Mupirocin Ointment 22gm Tube 1 APPLIC TOPICAL (20:12)
[2021-01-19] MEDS: Pravastatin 40 MG Tablet PO (20:13)
[2021-01-19] MEDS: tiZANidine HCl 2 MG Tablet 4 MG PO (20:13)
[2021-01-19] MEDS: Senna/Docusate Sodium 1 Tablet 2 TABLET PO (20:13)
[2021-01-19 21:45] LABS: Bedside Glucose 167 mg/dL (70-110)
[2021-01-20] MEDS: oxyCODONE 5 MG Tablet PO (03:24)
[2021-01-20] MEDS: Acetaminophen 500 MG Tablet 1000 MG PO ×3 (05:25→20:29)
[2021-01-20] MEDS: tiZANidine HCl 2 MG Tablet PO ×2 (05:25→14:07)
[2021-01-20] MEDS: Levothyroxine 100 MCG Tablet 200 MCG PO (05:25)
[2021-01-20 05:42] LABS: Hematocrit 31.6 % (40-54); Hemoglobin 10.1 g/dL (13.0-16.5); Mean Corpuscular Hgb 31.6 pg (27.0-32.0); Mean Corpuscular Volume 98.8 fL (80-94); Mean Platelet Vol. 8.1 fl (6.2-12.0); Platelet Count 209 K/mm3 (150-450); RBC Distribution Width CV 14.6 % (11.6-14.6); RBC Distribution Width SD 51.8 fl (35.1-43.9); White Blood Count 8.1 K/mm3 (4.4-11.0)
--- NOTE | 2021-01-20 06:38 | NURSING ---
BS checked by NIGHT TIME BABYSITTER, BG 31. Pt denies symptoms, fully awake and alert. [place] juice and yogurt given, will recheck and monitor
[2021-01-20 06:44] LABS: Anion Gap 3 (5-15); BUN 36 mg/dL (7-18); BUN/Creat Ratio 37.2 RATIO (10-20); Calcium,Total 8.6 mg/dL (8.5-10.1); Chloride 94 mmol/L (98-107); Creatinine, Serum 0.97 mg/dL (0.70-1.30); EST Glomerular Filtration Rate 81 mL/min (>60); Est Glom Filt Rate - Afr Amer 98 mL/min (>60); Estimated Creatinine Clearance 71.16 ml/min; Glucose 31 mg/dL (74-106); Magnesium 1.9 mg/dL (1.6-2.6); Potassium 4.5 mmol/L (3.5-5.1); Sodium Level 135 mmol/L (136-145)
--- NOTE | 2021-01-20 06:58 | NURSING ---
BS 56, will recheck per protocol
[2021-01-20 07:00] LABS: Bedside Glucose 31 mg/dL (70-110)
[2021-01-20 07:00] LABS: Bedside Glucose 56 mg/dL (70-110)
[2021-01-20 07:22] VITALS: BP 103/48; PULSE 60; RESP 14; TEMP 36.3; O2SAT 100
[2021-01-20 07:36] LABS: Bedside Glucose 76 mg/dL (70-110)
--- NOTE | 2021-01-20 08:45 | PCM.PN.BLA ---
Progress Note Afebrile VSS - The BP is 103/48 today. Metoprolol XL was discontinued yesterday because we have had to hold it 2 days in a row for low BP. He was started on Coreg 3.25 mg BID. HR today is 60. No tachycardia. Maintaining appropriate oxygen saturation on RA yesterday while awake. 100% today on 3 LPM NC Oral intake is poor. He ate very little supper last night and would not take an at bedtime snack for nursing. He ate poorly this morning as well. Discussed with nursing - He is disagreeable with nursing. He complained 2 nights ago that he was not turned Q2 H at night and so last night they turned him Q2H and he complained it interfered with his sleep. Reviewed the PT/OT notes Medication list reviewed. The blood sugar record was reviewed. Fasting blood sugar this morning was low. I added a small dose of Lantus at at bedtime yesterday because he was running high and then he refused to eat for supper and also refused a HS snack. Will DC the Lantus at HS and change SSI to AC and HS from TID AC All lab was personally reviewed. Creat and BUN are both improving with diuresis. Will continue the Bumex 4 mg daily for now. He is c/o his butt hurting still but He is not the greatest historian and It sounds as though it is better when he stands? Not radiating into the legs. He denies SOB, CP, N/V/abd pain. Physical Exam Const alert and no apparent distress Constitutional Narrative: Lying in bed at about 30 degrees with no respiratory difficulty Resp Resp Narrative: diminished BS's on the R. Persistent crackles in the Left base. No wheezes, not tachypneic, no conversational dyspnea. GI soft to palpation, non-tender and non-distended Extremity Extremity Narrative: some pitting edema of the posterior thighs and still with pitting edema in the flanks but, it is less now. He is down 5,190 cc in the past 3 days but, he only lost 3 lbs? He drank 1770 yesterday. Assessment & Plan Assessment/Plan (1) Debility: (2) History of right below knee amputation: (3) Acute on chronic systolic CHF (congestive heart failure): (4) Ischemic cardiomyopathy with implantable cardioverter-defibrillator (ICD): (5) Hypomagnesemia: (6) Chronic obstructive pulmonary disease: QUALIFIERS: COPD type: unspecified COPD Qualified Code(s): J44.9 - Chronic obstructive pulmonary disease, unspecified (7) Diabetes mellitus: QUALIFIERS: Diabetes mellitus long term care administrator insulin use: with custodial use Diabetes mellitus complication status: with circulatory complication Diabetes mellitus complication detail: with other circulatory complications PLAN: 1. Add a 1500 cc fluid restriction 2. Continue the Bumex at 2 mg daily now though. Recheck a BMP on Sunday.......serum bicarb is increasing.......contraction alkalosis? or is he getting too much oxygen? 3. continue therapy. He continues to think his is going to be able to manage him at home but he is requiring a lot of assistance and I am fearful she will not be able to manage alone. 4. DC the Lantus at HS. change the SSI to AC and HS again. His eating is erratic and it is difficult to control the blood sugars with no consistency in his intake 5. If he continues to c/o pain in the buttocks unchanged with the Gabapentin then will DC. 6. Pain is well controlled with the Oxycontin and he is only taking 5 mg of Oxycodone 1-2 times daily now. Visit Charges Inpatient E&M: 80482 Subs Hosp L2
[2021-01-20 10:00] VITALS: O2SAT 98
[2021-01-20] MEDS: Citalopram 10 MG Tablet PO (10:05)
[2021-01-20] MEDS: oxyCODONE HCl Cr 10 MG Tablet PO ×2 (10:05→22:17)
[2021-01-20] MEDS: predniSONE 5 MG Tablet 2.5 MG PO (10:05)
[2021-01-20] MEDS: Senna/Docusate Sodium 1 Tablet 2 TABLET PO ×2 (10:06→20:30)
[2021-01-20] MEDS: Aspirin E.C. 81 MG Tablet PO (10:06)
[2021-01-20] MEDS: buPROPion (XL) 150 MG TABLET.XL PO (10:06)
[2021-01-20] MEDS: Magnesium Chloride 64 MG Delay Rel.Tablet 128 MG PO ×2 (10:06→20:29)
[2021-01-20] MEDS: Clopidogrel Bisulfate 75 MG Tablet PO (10:06)
[2021-01-20] MEDS: Pantoprazole Sodium 40 MG Tablet PO (10:06)
[2021-01-20] MEDS: Gabapentin 100 MG Capsule PO (10:06)
[2021-01-20] MEDS: Bumetanide 2 MG Tablet 4 MG PO (10:06)
[2021-01-20] MEDS: Carvedilol 3.125 MG TABLET PO (10:06)
[2021-01-20] MEDS: 0.9% Saline Lock 10 ML Syringe IV (10:13)
[2021-01-20] MEDS: Menthol/Lanolin/Calamine/Znox 113 GM Tube 1 APPLIC TOPICAL ×2 (10:18→20:30)
[2021-01-20 11:16] LABS: Bedside Glucose 190 mg/dL (70-110)
[2021-01-20] MEDS: Insulin Lispro 100 UNIT/ML INSULN.PEN SC ×2 (12:04→20:52)
[2021-01-20 16:31] LABS: Bedside Glucose 179 mg/dL (70-110)
[2021-01-20] MEDS: NYSTATIN 500,000 UNIT/5 ML UDC 500000 UNIT PO (17:03)
[2021-01-20 19:22] VITALS: BP 88/75; PULSE 69; RESP 16; TEMP 36.6; O2SAT 96
[2021-01-20] MEDS: tiZANidine HCl 2 MG Tablet 4 MG PO (20:29)
[2021-01-20] MEDS: Pravastatin 40 MG Tablet PO (20:29)
[2021-01-20] MEDS: Mupirocin Ointment 22gm Tube 1 APPLIC TOPICAL (20:30)
[2021-01-20 21:16] LABS: Bedside Glucose 194 mg/dL (70-110)
[2021-01-21] MEDS: Acetaminophen 500 MG Tablet 1000 MG PO ×3 (05:36→21:25)
[2021-01-21] MEDS: tiZANidine HCl 2 MG Tablet PO ×2 (05:36→15:12)
[2021-01-21] MEDS: Levothyroxine 100 MCG Tablet 200 MCG PO (05:36)
[2021-01-21 06:00] LABS: Bedside Glucose 79 mg/dL (70-110)
[2021-01-21] MEDS: Magnesium Hydroxide 30 ML UDC PO (07:21)
[2021-01-21 07:25] VITALS: BP 103/47; PULSE 64; RESP 18; TEMP 35.8; O2SAT 100
[2021-01-21 08:00] VITALS: O2SAT 97
[2021-01-21 09:28] VITALS: O2SAT 96
[2021-01-21] MEDS: predniSONE 5 MG Tablet 2.5 MG PO (10:02)
[2021-01-21] MEDS: Aspirin E.C. 81 MG Tablet PO (10:04)
[2021-01-21] MEDS: Pantoprazole Sodium 40 MG Tablet PO (10:04)
[2021-01-21] MEDS: Clopidogrel Bisulfate 75 MG Tablet PO (10:04)
[2021-01-21] MEDS: Bumetanide 2 MG Tablet 4 MG PO (10:04)
[2021-01-21] MEDS: Carvedilol 3.125 MG TABLET PO ×2 (10:04→17:39)
[2021-01-21] MEDS: buPROPion (XL) 150 MG TABLET.XL PO (10:04)
[2021-01-21] MEDS: Citalopram 10 MG Tablet PO (10:04)
[2021-01-21] MEDS: Magnesium Chloride 64 MG Delay Rel.Tablet 128 MG PO ×2 (10:04→21:24)
[2021-01-21] MEDS: Senna/Docusate Sodium 1 Tablet 2 TABLET PO ×2 (10:05→21:25)
[2021-01-21] MEDS: Menthol/Lanolin/Calamine/Znox 113 GM Tube 1 APPLIC TOPICAL ×2 (10:12→21:24)
[2021-01-21] MEDS: 0.9% Saline Lock 10 ML Syringe IV ×2 (10:12→20:03)
--- NOTE | 2021-01-21 10:58 | PCM.PN.BLA ---
Progress Note Afebrile VSS -blood pressure today is 103/47. Pulse rate is 64. He is afebrile. Maintaining appropriate oxygen saturation on 2-3 LPM Oral intake is too good. He had 2340 cc yesterday with only 1430 out. He has been started on a 1500 cc fluid restriction. Fluid balance for the day was 910 mL positive. The weight today is 188 pounds and 15 ounces. Discussed with nursing - no problems that need addressed Reviewed the PT/OT notes Medication list reviewed. The blood sugar record was reviewed. All blood sugars yesterday were under 200. The fasting blood sugar this morning is 79. He got 3 units of lispro at bedtime last night for a blood sugar of 194. Physical Exam Const alert, oriented x3 and no apparent distress Chest Chest: symmetrical chest wall rise Resp normal respiratory effort, no use of accessory muscles and clear to auscultation bilaterally Effort and Inspection: able to speak in complete sentences Cardio regular rate, regular rhythm, no murmurs and no gallops Cardio Narrative: Still with pitting edema in the flanks and also the posterior thighs Jugular Venous Distention: JVD GI soft to palpation, non-tender and non-distended GI Narrative: normal BS's heard, no guarding with palpation Neuro oriented x3, CN's II-XII intact bilaterally and no focal motor deficits Psych mental status grossly normal Psych Narrative: poor short term memory Activity / Motor Behavior: appropriate eye contact Assessment & Plan Assessment/Plan (1) Debility: (2) Status post below knee amputation of right lower extremity: (3) Acute on chronic systolic CHF (congestive heart failure): (4) Metabolic alkalosis: (5) Hyponatremia: (6) Hypomagnesemia: (7) Ischemic cardiomyopathy with implantable cardioverter-defibrillator (ICD): (8) Obstructive sleep apnea: (9) Type 2 diabetes mellitus with diabetic polyneuropathy: PLAN: 1. continue the Bumex and add a 1500 cc per day fluid restriction 2. Continue therapy 3. the sodium and the creat are improving with diuresis Visit Charges Inpatient E&M: 25735 Subs Hosp L2
[2021-01-21] MEDS: oxyCODONE 5 MG Tablet PO ×2 (11:42→20:03)
[2021-01-21 11:50] LABS: Bedside Glucose 133 mg/dL (70-110)
[2021-01-21 16:36] LABS: Bedside Glucose 213 mg/dL (70-110)
[2021-01-21] MEDS: Insulin Lispro 100 UNIT/ML INSULN.PEN SC (17:35)
[2021-01-21] MEDS: Gabapentin 100 MG Capsule PO (17:39)
[2021-01-21 17:44] VITALS: BP 110/52
[2021-01-21 18:58] VITALS: BP 110/47; PULSE 70; RESP 16; TEMP 36.9; O2SAT 100
[2021-01-21] MEDS: Mupirocin Ointment 22gm Tube 1 APPLIC TOPICAL (21:23)
[2021-01-21] MEDS: NYSTATIN 500,000 UNIT/5 ML UDC 500000 UNIT PO (21:24)
[2021-01-21] MEDS: tiZANidine HCl 2 MG Tablet 4 MG PO (21:25)
[2021-01-21] MEDS: Pravastatin 40 MG Tablet PO (21:25)
[2021-01-21 21:40] LABS: Bedside Glucose 123 mg/dL (70-110)
[2021-01-22 00:41] LABS: Bedside Glucose 90 mg/dL (70-110)
[2021-01-22 02:21] LABS: Bedside Glucose 131 mg/dL (70-110)
--- NOTE | 2021-01-22 04:04 | NURSING ---
Reviewed and agree with form carpenter documentation and assessment charting.
[2021-01-22] MEDS: Acetaminophen 500 MG Tablet 1000 MG PO ×3 (06:18→21:41)
[2021-01-22] MEDS: tiZANidine HCl 2 MG Tablet PO ×2 (06:18→13:49)
[2021-01-22] MEDS: Levothyroxine 100 MCG Tablet 200 MCG PO (06:18)
[2021-01-22 07:01] LABS: Bedside Glucose 144 mg/dL (70-110)
[2021-01-22 07:41] VITALS: BP 92/47; PULSE 61; RESP 18; TEMP 36.4; O2SAT 100
[2021-01-22 08:04] LABS: Anion Gap 4 (5-15); BUN 34 mg/dL (7-18); BUN/Creat Ratio 33.7 RATIO (10-20); Calcium,Total 8.7 mg/dL (8.5-10.1); Chloride 93 mmol/L (98-107); Creatinine, Serum 1.01 mg/dL (0.70-1.30); EST Glomerular Filtration Rate 77 mL/min (>60); Est Glom Filt Rate - Afr Amer 93 mL/min (>60); Estimated Creatinine Clearance 68.34 ml/min; Glucose 143 mg/dL (74-106); Potassium 4.4 mmol/L (3.5-5.1); Sodium Level 133 mmol/L (136-145)
[2021-01-22] MEDS: Aspirin E.C. 81 MG Tablet PO (08:11)
[2021-01-22] MEDS: Magnesium Chloride 64 MG Delay Rel.Tablet 128 MG PO ×2 (08:11→21:41)
[2021-01-22] MEDS: Gabapentin 100 MG Capsule PO ×2 (08:11→17:33)
[2021-01-22] MEDS: Clopidogrel Bisulfate 75 MG Tablet PO (08:11)
[2021-01-22] MEDS: Pantoprazole Sodium 40 MG Tablet PO (08:11)
[2021-01-22] MEDS: buPROPion (XL) 150 MG TABLET.XL PO (08:11)
[2021-01-22] MEDS: Citalopram 10 MG Tablet PO (08:11)
[2021-01-22] MEDS: Senna/Docusate Sodium 1 Tablet 2 TABLET PO ×2 (08:13→21:40)
[2021-01-22] MEDS: Bumetanide 2 MG Tablet 4 MG PO (08:13)
[2021-01-22] MEDS: predniSONE 5 MG Tablet 2.5 MG PO (08:14)
[2021-01-22] MEDS: NYSTATIN 500,000 UNIT/5 ML UDC 500000 UNIT PO ×3 (11:20→17:32)
[2021-01-22] MEDS: Menthol/Lanolin/Calamine/Znox 113 GM Tube 1 APPLIC TOPICAL ×2 (11:22→21:43)
[2021-01-22 11:40] LABS: Bedside Glucose 294 mg/dL (70-110)
[2021-01-22] MEDS: Insulin Lispro 100 UNIT/ML INSULN.PEN SC ×2 (12:16→17:34)
[2021-01-22 16:56] LABS: Bedside Glucose 285 mg/dL (70-110)
[2021-01-22 17:00] VITALS: BP 115/51
[2021-01-22] MEDS: Carvedilol 3.125 MG TABLET PO (17:38)
[2021-01-22 21:29] VITALS: BP 95/45; PULSE 63; RESP 16; TEMP 36.6; O2SAT 100
[2021-01-22] MEDS: Pravastatin 40 MG Tablet PO (21:40)
[2021-01-22] MEDS: tiZANidine HCl 2 MG Tablet 4 MG PO (21:41)
[2021-01-22] MEDS: Mupirocin Ointment 22gm Tube 1 APPLIC TOPICAL (21:42)
[2021-01-22] MEDS: Saliva Substitute 237 ML BOTTLE 15 ML MUCOUS MEM (21:43)
[2021-01-22 22:56] LABS: Bedside Glucose 70 mg/dL (70-110)
--- NOTE | 2021-01-23 01:28 | NURSING ---
2139 clinical findings completed at this time, rn doing dressing change and high school drafting teacher doing medication pass to pt. pt refused to take oxycotin stating that when he needed he would take it, staff explained the difference of oxycotin and oxyir and pt continued to state the when he needed he would take it. pt remained that the oxycotin was scheduled so if he refused it he would have to wait until his next schedule time to take it. staff also assisted with hs care after completing brushing his teeth pt attempted to drink his rinse water until staff informed him that he could not drink all that water. pt given biotene staff noted that he was swallowing that as well, pt cautioned that he was to spit it out after rinsing. pt took the biotene in 2 small sips. prior to leaving pt was asked to turn off of his bottom and a pillow was placed to off load his bottom. pt then requested to another pillow placed on the other side so that he could stay on his back.
[2021-01-23] MEDS: Levothyroxine 100 MCG Tablet 200 MCG PO (06:08)
[2021-01-23] MEDS: tiZANidine HCl 2 MG Tablet PO ×2 (06:08→14:22)
[2021-01-23] MEDS: Acetaminophen 500 MG Tablet 1000 MG PO ×3 (06:08→21:36)
--- NOTE | 2021-01-23 06:21 | NURSING ---
pt blood sugar this am was 39. he is asymptomatic given OJ and a snack. Orders stat glucose check with lab.
[2021-01-23 06:59] LABS: Glucose 40 mg/dL (74-106)
[2021-01-23 07:05] LABS: Bedside Glucose 28 mg/dL (70-110)
[2021-01-23 07:05] LABS: Bedside Glucose 39 mg/dL (70-110)
[2021-01-23 07:10] LABS: Bedside Glucose 62 mg/dL (70-110)
[2021-01-23 07:10] LABS: Bedside Glucose 90 mg/dL (70-110)
[2021-01-23 07:23] VITALS: BP 102/47; PULSE 60; RESP 18; TEMP 36.2; O2SAT 100
[2021-01-23] MEDS: predniSONE 5 MG Tablet 2.5 MG PO (09:21)
[2021-01-23] MEDS: Clopidogrel Bisulfate 75 MG Tablet PO (09:21)
[2021-01-23] MEDS: Carvedilol 3.125 MG TABLET PO ×2 (09:21→17:04)
[2021-01-23] MEDS: Pantoprazole Sodium 40 MG Tablet PO (09:21)
[2021-01-23] MEDS: Magnesium Chloride 64 MG Delay Rel.Tablet 128 MG PO ×2 (09:21→21:36)
[2021-01-23] MEDS: Citalopram 10 MG Tablet PO (09:23)
[2021-01-23] MEDS: Gabapentin 100 MG Capsule PO ×2 (09:23→17:04)
[2021-01-23] MEDS: Aspirin E.C. 81 MG Tablet PO (09:23)
[2021-01-23] MEDS: buPROPion (XL) 150 MG TABLET.XL PO (09:24)
[2021-01-23] MEDS: Bumetanide 2 MG Tablet 4 MG PO (09:25)
[2021-01-23] MEDS: Menthol/Lanolin/Calamine/Znox 113 GM Tube 1 APPLIC TOPICAL ×2 (09:38→21:38)
[2021-01-23 09:51] LABS: Bedside Glucose 169 mg/dL (70-110)
--- NOTE | 2021-01-23 11:10 | PCM.PN.BLA ---
Progress Note Alonzo was seen on team rounds today. His Alexia was present in the room for rounds. afebrile VSS Maintaining appropriate oxygen saturation on 2-3 LPM via NC. Oral intake is good Fluid balance yesterday was -1120. He was complaining about the fluid restriction but, today is not arguing. Discussed with nursing - Reviewed the PT/OT/ST notes - He was evaluated by ST on Sunday and found to have a linguistic/cognitive deficiency. Poor short term memory and naming. Asking to have instructions repeated. He also has trouble swallowing regular textures and he is on thin liquids and easy to chew textures now. This may be in part due to limited dentition in the upper jaw. Medication list reviewed. BS record was reviewed. He is currently on Lantus in the AM and SSI with meals. When the FBS is less than 150 he does not get insulin and the lunch and the dinner sugars are high. Will schedule insulin with meals and decrease the SSI to low-med. All lab done yesterday was reviewed with nursing on the phone yesterday. Physical Exam Const alert, oriented x3 and no apparent distress Constitutional Narrative: uncooperative at times......eats wheat he wants, skips meals at times, refuses insulin at times, insists things be done his way and at times not willing to reason with the therapists. 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 No rales, wheezes or rhonchi. No conversational dyspnea. Effort and Inspection: able to speak in complete sentences Cardio regular rate, regular rhythm, no murmurs and no gallops GI normal to inspection, nondistended, normoactive bowel sounds and soft to palpation Extremity Extremity Narrative: edema is decreasing with the activity therapy teacher. There is no dehiscence. No purulent DC from the incision. There is some patchy dark eschar also along the incision. Skin Rashes: no rashes Assessment & Plan Assessment/Plan (1) Peripheral arterial occlusive disease: (2) Diabetes mellitus: (3) Below-knee amputation of right lower extremity: (4) Debility: PLAN: 1. continue therapy 2. Adjust insulin as necessary. His intake is erratic and this makes it difficult to get good control of the sugars. Visit Charges Inpatient E&M: 49645 Subs Hosp L2
[2021-01-23] MEDS: Insulin Lispro 100 UNIT/ML INSULN.PEN 6 UNIT SC (12:04)
[2021-01-23 12:20] LABS: Bedside Glucose 239 mg/dL (70-110)
[2021-01-23 17:00] VITALS: BP 109/75
[2021-01-23] MEDS: Insulin Lispro 100 UNIT/ML INSULN.PEN SC (17:04)
[2021-01-23 17:10] LABS: Bedside Glucose 279 mg/dL (70-110)
[2021-01-23 21:29] VITALS: BP 102/49; PULSE 78; RESP 18; TEMP 36.9; O2SAT 93
[2021-01-23] MEDS: Pravastatin 40 MG Tablet PO (21:36)
[2021-01-23] MEDS: tiZANidine HCl 2 MG Tablet 4 MG PO (21:37)
[2021-01-23] MEDS: oxyCODONE HCl Cr 10 MG Tablet PO (21:37)
[2021-01-23] MEDS: Mupirocin Ointment 22gm Tube 1 APPLIC TOPICAL (21:38)
[2021-01-23] MEDS: Senna/Docusate Sodium 1 Tablet 2 TABLET PO (21:40)
[2021-01-23 22:46] LABS: Bedside Glucose 274 mg/dL (70-110)
[2021-01-24] MEDS: tiZANidine HCl 2 MG Tablet PO ×2 (06:48→13:09)
[2021-01-24] MEDS: Levothyroxine 100 MCG Tablet 200 MCG PO (06:48)
[2021-01-24] MEDS: Acetaminophen 500 MG Tablet 1000 MG PO ×3 (06:49→21:56)
[2021-01-24 06:56] LABS: Bedside Glucose 192 mg/dL (70-110)
[2021-01-24 08:03] VITALS: BP 102/55; PULSE 71; RESP 18; TEMP 36.4; O2SAT 100
[2021-01-24] MEDS: predniSONE 5 MG Tablet 2.5 MG PO (10:32)
[2021-01-24] MEDS: Pantoprazole Sodium 40 MG Tablet PO (10:33)
[2021-01-24] MEDS: Gabapentin 100 MG Capsule PO ×2 (10:33→17:28)
[2021-01-24] MEDS: Bumetanide 2 MG Tablet 4 MG PO (10:33)
[2021-01-24] MEDS: buPROPion (XL) 150 MG TABLET.XL PO (10:34)
[2021-01-24] MEDS: Nystatin Powder 15gm Bottle 1 APPLIC TOPICAL ×2 (10:34→21:57)
[2021-01-24] MEDS: Citalopram 10 MG Tablet PO (10:34)
[2021-01-24] MEDS: Aspirin E.C. 81 MG Tablet PO (10:34)
[2021-01-24] MEDS: Carvedilol 3.125 MG TABLET PO ×2 (10:34→17:27)
[2021-01-24] MEDS: Clopidogrel Bisulfate 75 MG Tablet PO (10:34)
[2021-01-24] MEDS: Magnesium Chloride 64 MG Delay Rel.Tablet 128 MG PO ×2 (10:34→21:56)
[2021-01-24] MEDS: Insulin Lispro 100 UNIT/ML INSULN.PEN 6 UNIT SC ×2 (10:35→13:08)
[2021-01-24] MEDS: oxyCODONE HCl Cr 10 MG Tablet PO ×2 (10:38→22:01)
--- NOTE | 2021-01-24 11:15 | CASEMGMT ---
Team meeting held this date with pt and in attendance. Pt is continuing to receive PT/OT/ST and progressing with therapy. Last Covered Day issued by Medicare is 01/28/21. Extensive discussion regarding discharge plan on Sunday. Pt expressing desire to return home on Sunday and pt expressing concern that she is unable to care for him due to his care needs (pt is currently an assist of 2 for transfers). It was decided that pt will come in for family training on and this will determine if pt can return home or needs continued rehab at a SNF. List of SNF providers including quality and resource use data and consistent with the patien't preferred geographic region, medical needs and insurance. Pt states that her preferred provider is [facility] if pt is unable to return home. SW made a referral to TCU and they would be able to accept. Discharge is planned for Sunday01/28/21. SW will continue to follow for discharge planning. DAVID Avalos
[2021-01-24] MEDS: Menthol/Lanolin/Calamine/Znox 113 GM Tube 1 APPLIC TOPICAL ×2 (11:26→21:58)
[2021-01-24 12:10] LABS: Bedside Glucose 309 mg/dL (70-110)
--- NOTE | 2021-01-24 16:40 | NURSING ---
pt refused to have Johann dc'd at this time states he's unable to urinate unless he stands and he cant stand at this time
[2021-01-24 17:25] LABS: Bedside Glucose 149 mg/dL (70-110)
[2021-01-24] MEDS: Insulin Lispro 100 UNIT/ML INSULN.PEN SC (17:27)
[2021-01-24 19:23] VITALS: BP 114/51; PULSE 83; RESP 18; TEMP 36.4; O2SAT 93
[2021-01-24 20:55] LABS: Bedside Glucose 182 mg/dL (70-110)
[2021-01-24] MEDS: Senna/Docusate Sodium 1 Tablet 2 TABLET PO (21:56)
[2021-01-24] MEDS: Pravastatin 40 MG Tablet PO (21:56)
[2021-01-24] MEDS: Saliva Substitute 237 ML BOTTLE 15 ML MUCOUS MEM (21:57)
[2021-01-24] MEDS: tiZANidine HCl 2 MG Tablet 4 MG PO (21:57)
[2021-01-24] MEDS: Mupirocin Ointment 22gm Tube 1 APPLIC TOPICAL (21:58)
[2021-01-24 22:00] VITALS: PULSE 83; RESP 18; O2SAT 93
[2021-01-25] MEDS: Levothyroxine 100 MCG Tablet 200 MCG PO (05:02)
[2021-01-25] MEDS: tiZANidine HCl 2 MG Tablet PO ×2 (05:02→14:15)
[2021-01-25] MEDS: Acetaminophen 500 MG Tablet 1000 MG PO ×3 (05:02→21:02)
[2021-01-25 06:05] LABS: Bedside Glucose 131 mg/dL (70-110)
[2021-01-25 07:25] VITALS: O2SAT 100
[2021-01-25] MEDS: Senna/Docusate Sodium 1 Tablet 2 TABLET PO ×2 (07:50→21:12)
[2021-01-25] MEDS: Nystatin Powder 15gm Bottle 1 APPLIC TOPICAL ×2 (07:50→21:02)
[2021-01-25] MEDS: Aspirin E.C. 81 MG Tablet PO (07:51)
[2021-01-25] MEDS: Pantoprazole Sodium 40 MG Tablet PO (07:51)
[2021-01-25] MEDS: Clopidogrel Bisulfate 75 MG Tablet PO (07:51)
[2021-01-25] MEDS: buPROPion (XL) 150 MG TABLET.XL PO (07:51)
[2021-01-25] MEDS: Bumetanide 2 MG Tablet 4 MG PO (07:51)
[2021-01-25] MEDS: predniSONE 5 MG Tablet 2.5 MG PO (07:51)
[2021-01-25] MEDS: Gabapentin 100 MG Capsule PO ×2 (07:51→17:22)
[2021-01-25] MEDS: Citalopram 10 MG Tablet PO (07:51)
[2021-01-25] MEDS: Magnesium Chloride 64 MG Delay Rel.Tablet 128 MG PO ×2 (07:51→21:02)
[2021-01-25] MEDS: Carvedilol 3.125 MG TABLET PO ×2 (07:51→17:22)
[2021-01-25] MEDS: Insulin Lispro 100 UNIT/ML INSULN.PEN 6 UNIT SC ×2 (07:52→12:11)
[2021-01-25] MEDS: Menthol/Lanolin/Calamine/Znox 113 GM Tube 1 APPLIC TOPICAL ×2 (07:56→21:00)
[2021-01-25 07:58] VITALS: BP 102/47; PULSE 70; RESP 16; TEMP 36.5; O2SAT 100
[2021-01-25] MEDS: oxyCODONE HCl Cr 10 MG Tablet PO ×2 (09:46→21:05)
[2021-01-25 11:11] LABS: Bedside Glucose 223 mg/dL (70-110)
[2021-01-25 16:16] LABS: Bedside Glucose 138 mg/dL (70-110)
--- NOTE | 2021-01-25 17:15 | NURSING ---
pt refused to have Wills removed today. explained pt's risk of getting an infection r/t the Wills. voiced understanding and agreed to have Wills removed this evening. Also educated pt on the need to call for assistance with urinal use after the Wills is removed due to safety concerns he can not sit on edge of bed w/o staff present, voiced understanding.
[2021-01-25] MEDS: Insulin Lispro 100 UNIT/ML INSULN.PEN SC (17:23)
[2021-01-25 19:13] VITALS: BP 117/81; PULSE 85; RESP 18; TEMP 36.8; O2SAT 93
[2021-01-25] MEDS: Mupirocin Ointment 22gm Tube 1 APPLIC TOPICAL (21:00)
[2021-01-25] MEDS: Pravastatin 40 MG Tablet PO (21:01)
[2021-01-25] MEDS: tiZANidine HCl 2 MG Tablet 4 MG PO (21:06)
[2021-01-25 21:16] LABS: Bedside Glucose 156 mg/dL (70-110)
[2021-01-25 22:00] VITALS: PULSE 85; RESP 16; O2SAT 93
[2021-01-26] MEDS: Acetaminophen 500 MG Tablet 1000 MG PO ×3 (05:08→22:21)
[2021-01-26] MEDS: tiZANidine HCl 2 MG Tablet PO ×2 (05:09→12:43)
[2021-01-26] MEDS: Levothyroxine 100 MCG Tablet 200 MCG PO (05:09)
--- NOTE | 2021-01-26 05:26 | NURSING ---
Johann discontinued @ 04:45. Pt tolerated well.
[2021-01-26 06:36] LABS: Bedside Glucose 192 mg/dL (70-110)
[2021-01-26 07:31] VITALS: BP 98/50; PULSE 64; RESP 16; TEMP 36.4; O2SAT 100
[2021-01-26] MEDS: Aspirin E.C. 81 MG Tablet PO (07:52)
[2021-01-26] MEDS: Insulin Lispro 100 UNIT/ML INSULN.PEN 6 UNIT SC ×2 (07:52→12:42)
[2021-01-26] MEDS: Gabapentin 100 MG Capsule PO ×2 (07:52→17:31)
[2021-01-26] MEDS: Bumetanide 2 MG Tablet 4 MG PO (07:53)
[2021-01-26] MEDS: Citalopram 10 MG Tablet PO (07:53)
[2021-01-26] MEDS: predniSONE 5 MG Tablet 2.5 MG PO (07:53)
[2021-01-26] MEDS: Pantoprazole Sodium 40 MG Tablet PO (07:54)
[2021-01-26] MEDS: Senna/Docusate Sodium 1 Tablet 2 TABLET PO ×2 (07:54→22:21)
[2021-01-26] MEDS: Magnesium Chloride 64 MG Delay Rel.Tablet 128 MG PO ×2 (07:54→22:21)
[2021-01-26] MEDS: buPROPion (XL) 150 MG TABLET.XL PO (07:54)
[2021-01-26] MEDS: Clopidogrel Bisulfate 75 MG Tablet PO (07:54)
[2021-01-26] MEDS: Nystatin Powder 15gm Bottle 1 APPLIC TOPICAL ×2 (07:55→21:55)
[2021-01-26] MEDS: Menthol/Lanolin/Calamine/Znox 113 GM Tube 1 APPLIC TOPICAL ×2 (08:06→22:22)
[2021-01-26 11:10] LABS: Bedside Glucose 243 mg/dL (70-110)
--- NOTE | 2021-01-26 15:15 | PCM.PN.SRG ---
Subjective Subjective Postop #16. He underwent a right below knee amputation on 01/10/21. He is sitting up in his chair eating lunch. He states he is leaving on Sunday. He would like to go home. Objective Data Objective Data Vital Signs: Vital Signs Temp Pulse Resp BP Pulse Ox 97.6 F L 64 16 98/50 L 100 01/26/21 07:31 01/26/21 07:31 01/26/21 07:31 01/26/21 07:31 01/26/21 07:31 Oxygen Flow Rate (L/min) 3 Oxygen Delivery Method Nasal Cannula Weight: 179 lb 0.246 oz Body Mass Index (BMI) 26.1 Intake & Output: Intake and Output for Last 24 Hours 01/24/21 01/25/21 01/26/21 23:59 23:59 23:59 Intake Total 1180 / 1180 1060 / 1060 360 / 360 Output Total 2166 / 2166 2781 / 2781 1660 / 1660 Balance -986 / -986 -1721 / -1721 -1300 / -1300 Lab / Micro Data Result Diagrams: 01/20/21 05:34 01/23/21 06:24 Labs: Laboratory Results - last 24 hr 01/25/21 16:08: POC Glucose 138 H 01/25/21 20:49: POC Glucose 156 H 01/26/21 06:33: POC Glucose 192 H 01/26/21 11:05: POC Glucose 243 H Micro: Microbiology 01/22/21 08:30 Stool Stool Occult Blood (YAJAIRA) - Final 01/14/21 22:44 Urine Catheter - Catheter Urine Culture - Final Culture exhibits no growth. Physical Exam Const no apparent distress Eyes PERRL Resp normal respiratory effort Cardio regular rate GI non-tender Skin Wound Narrative: Right BKA incision intact. There is some dry scabbing on the incision. Sutures dry and intact. LUANN draining serosanguineous drainage. Neuro oriented x3 Psych mental status grossly normal Assessment & Plan Assessment/Plan (1) Status post below knee amputation of right lower extremity: (2) Osteomyelitis: (3) Personal history of Methicillin resistant Staphylococcus aureus infection: (4) Diabetes mellitus: QUALIFIERS: Diabetes mellitus care home insulin use: with terminal gauger supervisor use Diabetes mellitus complication status: with circulatory complication Diabetes mellitus complication detail: with other circulatory complications (5) Former smoker: (6) Status post below-knee amputation of left lower extremity: PLAN: Patient is receiving postop rehab, but will need to be discharged on 01/28/21. He would like to go home. He would benefit from further rehab or skilled care due to him being a bilateral BKA. His right BKA stump blistering and swelling have resolved. His sutures are dry and intact. Incision is intact with some scabbing along the incision. The compression with the JIGAR wrap has helped with his swelling. Gagandeep drain intact and draining serosanguineous drainage, 10-25 ml per day. Continue Doxycycline. Will remove the sutures at the wound center in a couple weeks. Charges/Coding Procedures Integumentary [id number]: [id number] Global Visit
--- NOTE | 2021-01-26 15:16 | CASEMGMT ---
Social Work SW met with pt to discuss discharge plan. SW informed pt that [facility] would have a bed available on Sunday and are able to accept him. Pt stating that he feels this is the best option for he and his and he would like to continue with therapy on [facility]CU prior to returning home. Phone call to pt and notified and she is agreeable to this discharge plan. Team updated and Isaura in TCU updated. Plan: Discharge 01/28/21 to [facility] DAVID Avalos
[2021-01-26 16:26] LABS: Bedside Glucose 275 mg/dL (70-110)
--- NOTE | 2021-01-26 16:35 | PCM.PN.BLA ---
Progress Note Afebrile VSS Maintaining appropriate oxygen saturation on 3 LPM Oral intake is OK. The PO intake yesterday was 1060. He continues to complain of fluid restriction despite the fact that he takes less than 1500 cc daily. Fluid balance on 01/25/2021 was -1721. He is -1300 so far today. His weight today is 179 pounds. He tells me that his usual weight at home is in the high 170's....prior to the R BKA. Discussed with nursing - no problems that need addressed Reviewed the PT/OT notes Medication list reviewed. The blood sugar record was reviewed. Fasting blood sugar this morning was 192 and he was 243 at noon and 275 prior to supper. He was 156 at bedtime yesterday. He is complaining about being on fluid restriction. He denies lightheadedness. He denies chest pain, shortness of breath with lying down. He does have some shortness of breath with therapy due to poor exercise tolerance. He has been primarily in a wheelchair over the past year. No nausea, vomiting, abdominal pain. He is complaining of some mild burning with urination and per nursing the urine is foul-smelling. An order was put in for a UA today. He refused to have the Wills removed yesterday. It was removed this morning. The highest residual urine has been 240. Physical Exam Const alert, oriented x3 and no apparent distress Constitutional Narrative: He is lying in bed at about 20 degrees and has no tachypnea and no conversational dyspnea. He denies SOB. General Appearance: cooperative and comfortable Chest Chest: symmetrical chest wall rise Resp normal respiratory effort, no use of accessory muscles and clear to auscultation bilaterally Resp Narrative: diminished BS's on the R Effort and Inspection: able to speak in complete sentences Cardio regular rate, regular rhythm, no murmurs and no gallops Cardio Narrative: The pitting edema in the flanks has resolved. The Lungs are CTA. There is still some pitting edema of the posterior thighs. GI soft to palpation, non-tender and non-distended GI Narrative: normal BS's heard, no guarding with palpation Skin Wounds: wounds noted Wound Narrative: R BKA incision is healing. There is no dehiscence. The previous small fluid filled blisters have dried up. The edema is decreasing and the stump is shrinking. Neuro oriented x3, CN's II-XII intact bilaterally and no focal motor deficits Assessment & Plan Assessment/Plan (1) Debility: PLAN: Progressing in therapy. Will continue therapy. Plan is for him to go to TCU on 01/28/21 (2) Status post below knee amputation of right lower extremity: PLAN: The incision is healing well and the stump is shrinking (3) Ischemic cardiomyopathy with implantable cardioverter-defibrillator (ICD): PLAN: 19% EF. (4) Acute on chronic systolic CHF (congestive heart failure): PLAN: Resolving with diuretics. Wt is down to 179 today. Check a BMP in the AM. (5) Hyponatremia: PLAN: stable (6) Diabetes mellitus: QUALIFIERS: Diabetes mellitus exterminator helper termite insulin use: with exterminator helper termite use Diabetes mellitus complication status: with circulatory complication Diabetes mellitus complication detail: with other circulatory complications PLAN: BS's are difficult to control due to his inconsistent intake. (7) Metabolic alkalosis: PLAN: I do not know if this is due to contraction alkalosis or if it is due to CO2 retention.....will get an ABG if the serum bicarb is > 35. (8) Hypomagnesemia: PLAN: The last MAG was 1.9 and he is on magnesium supplementation (9) Pulmonary HTN: (10) Chronic obstructive pulmonary disease: QUALIFIERS: COPD type: unspecified COPD Qualified Code(s): J44.9 - Chronic obstructive pulmonary disease, unspecified PLAN: stable - no wheezing Visit Charges Inpatient E&M: 75339 Subs Hosp L2
[2021-01-26 17:13] VITALS: BP 98/51
[2021-01-26] MEDS: Insulin Lispro 100 UNIT/ML INSULN.PEN SC (17:30)
[2021-01-26 18:48] LABS: Mucous, Urine 0 SEEN /hpf (<or=2+); Squamous Epithelial Cells - UA 0 SEEN /hpf (0-5)
[2021-01-26 19:14] LABS: Color, Urine Yellow (Yellow); Glucose, Dipstick Normal (Normal); Ketone-Dipstick Negative (Negative); Leukocyte Esterase-Dipstick 100 /ul (Negative); Nitrite-Dipstick Negative (Negative); Occult Blood-Urine 25 /ul (Negative); Protein-Dipstick Negative (Negative); Urine Bilirubin Dipstick Negative (Negative); Urine Clarity Sl. Cloudy (Clear); Urine Urobilinogen Normal (Normal)
[2021-01-26 19:24] LABS: Bacteria 3+ /hpf (None Seen); Red Blood Cells-Urine 0-5 SEEN /hpf (0-5); White Blood Cells 5-10 SEEN /hpf (0-5)
[2021-01-26 20:17] VITALS: BP 104/52; PULSE 74; RESP 17; TEMP 36.7; O2SAT 92
[2021-01-26 20:20] VITALS: PULSE 82; RESP 16; O2SAT 96
[2021-01-26 22:20] LABS: Bedside Glucose 183 mg/dL (70-110)
[2021-01-26] MEDS: tiZANidine HCl 2 MG Tablet 4 MG PO (22:20)
[2021-01-26] MEDS: oxyCODONE HCl Cr 10 MG Tablet PO (22:20)
[2021-01-26] MEDS: Pravastatin 40 MG Tablet PO (22:21)
[2021-01-26] MEDS: Mupirocin Ointment 22gm Tube 1 APPLIC TOPICAL (22:22)
[2021-01-27] MEDS: Levothyroxine 100 MCG Tablet 200 MCG PO (05:16)
[2021-01-27] MEDS: Acetaminophen 500 MG Tablet 1000 MG PO ×3 (05:16→21:02)
[2021-01-27] MEDS: tiZANidine HCl 2 MG Tablet PO ×2 (05:16→12:43)
[2021-01-27] MEDS: Magnesium Hydroxide 30 ML UDC PO (05:21)
[2021-01-27 05:56] LABS: Anion Gap 4 (5-15); BUN 35 mg/dL (7-18); BUN/Creat Ratio 29.4 RATIO (10-20); Calcium,Total 8.6 mg/dL (8.5-10.1); Chloride 90 mmol/L (98-107); Creatinine, Serum 1.19 mg/dL (0.70-1.30); EST Glomerular Filtration Rate 64 mL/min (>60); Est Glom Filt Rate - Afr Amer 77 mL/min (>60); Glucose 264 mg/dL (74-106); Magnesium 2.2 mg/dL (1.6-2.6); Potassium 4.3 mmol/L (3.5-5.1); Sodium Level 134 mmol/L (136-145)
[2021-01-27 06:16] LABS: Bedside Glucose 263 mg/dL (70-110)
[2021-01-27 07:08] VITALS: BP 98/40; PULSE 84; RESP 16; TEMP 36.5; O2SAT 91
[2021-01-27] MEDS: Nystatin Powder 15gm Bottle 1 APPLIC TOPICAL ×2 (07:55→21:01)
[2021-01-27] MEDS: Gabapentin 100 MG Capsule PO ×2 (07:59→16:58)
[2021-01-27] MEDS: Insulin Lispro 100 UNIT/ML INSULN.PEN 6 UNIT SC ×2 (07:59→12:36)
[2021-01-27] MEDS: Aspirin E.C. 81 MG Tablet PO (07:59)
[2021-01-27] MEDS: Bumetanide 2 MG Tablet 4 MG PO (08:01)
[2021-01-27] MEDS: Citalopram 10 MG Tablet PO (08:01)
[2021-01-27] MEDS: Magnesium Chloride 64 MG Delay Rel.Tablet 128 MG PO ×2 (08:01→21:01)
[2021-01-27] MEDS: predniSONE 5 MG Tablet 2.5 MG PO (08:01)
[2021-01-27] MEDS: buPROPion (XL) 150 MG TABLET.XL PO (08:02)
[2021-01-27] MEDS: Pantoprazole Sodium 40 MG Tablet PO (08:02)
[2021-01-27] MEDS: Menthol/Lanolin/Calamine/Znox 113 GM Tube 1 APPLIC TOPICAL ×2 (08:02→21:01)
[2021-01-27] MEDS: Senna/Docusate Sodium 1 Tablet 2 TABLET PO ×2 (08:02→21:02)
[2021-01-27] MEDS: Clopidogrel Bisulfate 75 MG Tablet PO (08:02)
[2021-01-27 11:11] LABS: Bedside Glucose 368 mg/dL (70-110)
[2021-01-27 11:35] LABS: Allen Test Positive; Base Excess 12 mmol/L (-2 to +2); Bicarbonate 33.9 mmol/L (22-26); Blood Gas Specimen Type ART; FI02 21; O2 Delivery Device Room Air; PO2 64 mmHG (75-100); SITE R Radial; SO2 95 % (95-99); Total Carbon Dioxide 35 mmol/L; pCO2 38.9 mmHg (35-45); pH 7.55 (7.35-7.45)
--- NOTE | 2021-01-27 12:46 | PCM.PN.SRG ---
Subjective Subjective Postop day #17 Patient just finished with therapy and transferred to his bed. His is at his bedside. Objective Data Objective Data Vital Signs: Vital Signs Temp Pulse Resp BP Pulse Ox 97.7 F L 84 16 98/40 L 91 01/27/21 07:08 01/27/21 07:08 01/27/21 07:08 01/27/21 07:08 01/27/21 07:08 Oxygen Flow Rate (L/min) 2 Oxygen Delivery Method Room Air Weight: 171 lb 12.794 oz Body Mass Index (BMI) 26.1 Intake & Output: Intake and Output for Last 24 Hours 01/25/21 01/26/21 01/27/21 23:59 23:59 23:59 Intake Total 1060 / 1060 820 / 820 990 / 990 Output Total 2781 / 2781 2417 / 2417 250 / 250 Balance -1721 / -1721 -1597 / -1597 740 / 740 Lab / Micro Data Result Diagrams: 01/20/21 05:34 01/27/21 05:27 Labs: Laboratory Results - last 24 hr 01/26/21 18:30: Urine Color Yellow, Urine Clarity Sl. Cloudy, Urine pH 8.0, Ur Specific [place] 1.010, Urine Protein Negative, Urine Glucose (UA) Normal, Urine Ketones Negative, Urine Occult Blood 25 H, Urine Nitrite Negative, Urine Bilirubin Negative, Urine Urobilinogen Normal, Ur Leukocyte Esterase 100 H, Urine RBC 0-5 SEEN, Urine WBC 5-10 SEEN, Ur Squamous Epith Cells 0 SEEN, Urine Bacteria 3+, Urine Mucus 0 SEEN 01/26/21 20:26: POC Glucose 183 H 01/27/21 05:27: Sodium 134 L, Potassium 4.3, Chloride 90 L, Carbon Dioxide 40.0 H, Anion Gap 4 L, BUN 35 H, Creatinine 1.19, Estim Creat Clear Calc 58.00, Est GFR (MDRD) Af Amer 77, Est GFR (MDRD) Non-Af 64, BUN/Creatinine Ratio 29.4 H, Glucose 264 H, Calcium 8.6, Magnesium 2.2 01/27/21 06:10: POC Glucose 263 H 01/27/21 11:03: POC Glucose 368 H 01/27/21 16:58: POC Glucose 307 H Micro: Microbiology 01/22/21 08:30 Stool Stool Occult Blood (YAJAIRA) - Final 01/14/21 22:44 Urine Catheter - Catheter Urine Culture - Final Culture exhibits no growth. ABG Data ABG results: ABG 01/27/21 11:27 Specimen Type ART Sample Site R Radial pH 7.55 H Bicarbonate Actual 33.9 H Total CO2 35 Base Excess 12 H O2 Saturation 95 O2 % 21 ABG pCO2 38.9 ABG pO2 64 L Rafiq Test Positive O2 Delivery Device Room Air Physical Exam Const oriented x3 and no apparent distress HEENT normocephalic Resp normal respiratory effort Cardio regular rate GI soft to palpation Extremity Extremity Narrative: Bilateral BKA. Wears a prosthesis on the left. Skin Wound Narrative: Right BKA incision is dry and intact with some scabbing. Sutures are intact. Gagandeep drain removed today without difficulty. Blistering has resolved and healed. Neuro oriented x3 Psych mental status grossly normal Assessment & Plan Assessment/Plan (1) Status post below knee amputation of right lower extremity: (2) Osteomyelitis: (3) Personal history of Methicillin resistant Staphylococcus aureus infection: (4) Diabetes mellitus: QUALIFIERS: Diabetes mellitus complication detail: with other circulatory complications Diabetes mellitus complication status: with circulatory complication Diabetes mellitus ferry terminal agent insulin use: with ferry terminal agent use (5) Status post below-knee amputation of left lower extremity: (6) Debility: PLAN: Patient is receiving postop rehab, but will need to be discharged on 01/28/21. He will be transferring to the TCU. His right BKA stump blistering and swelling have resolved. His sutures are dry and intact. Incision is intact with some scabbing along the incision. Will stop the antibiotic ointment. Ok to wash the stump with soap and water. The compression with the JIGAR wrap has helped with his swelling. Continue compression. Gagandeep drain removed without difficulty. May stop the Doxycycline now that the drain is removed. Will remove the sutures at the wound center in a couple weeks. Charges/Coding Procedures Integumentary [id number]: [id number] Global Visit
--- NOTE | 2021-01-27 14:35 | PCM.PN.BLA ---
Progress Note Febrile Vital signs are stable, no bradycardia, denies lightheadedness. The wt is down to 171.8 lbs. BS's are not adequately controlled. Will adjust the scheduled insulin at mealtimes. Good urine output Denies shortness of breath, lightheadedness, chest pain. Surgery remove the drain from the right stump today. The sutures remain intact. There is some eschar over the incision but no rosa-incisional erythema or increased warmth to touch. There is no purulent discharge. All lab from today was personally reviewed. Sodium is stable at 134. Chloride is low at 90. The serum bicarbonate is 40 today and the BUN is 35 with a stable creatinine at 1.19. Magnesium is normal at 2.2. UA yesterday had 0-5 RBCs and 5-10 WBCs per high-power field. There was 3+ bacteria. Culture was ordered. Several nurses and NA's have reported how foul smelling his urine is. ABG on room air showed a pH of 7.55, PO2 of 64 and a PCO2 of 39. Physical Exam Const alert, oriented x3 and no apparent distress Constitutional Narrative: His came in for family training today. Resp normal respiratory effort, no use of accessory muscles and clear to auscultation bilaterally Resp Narrative: no rales. the BS's on the R are always decreased when compared to the left due to R diaphragmatic paralysis. Effort and Inspection: able to speak in complete sentences Cardio regular rate, regular rhythm, no murmurs and no gallops GI soft to palpation, non-tender and non-distended Extremity Extremity Narrative: The incision is healing with no erythema and no purulent DC. The edema is decreased. The drain was removed today by the surgical FAMILY MEMBER CARETAKER. Psych mental status grossly normal Activity / Motor Behavior: appropriate eye contact Assessment & Plan Assessment/Plan (1) Debility: (2) Status post below knee amputation of right lower extremity: (3) Acute on chronic systolic CHF (congestive heart failure): (4) Metabolic alkalosis: (5) Hyponatremia: (6) Hypomagnesemia: (7) Ischemic cardiomyopathy with implantable cardioverter-defibrillator (ICD): (8) Obstructive sleep apnea: (9) Type 2 diabetes mellitus with diabetic polyneuropathy: PLAN: 1. Adjust the insulin regimen 2. 2 LPM of O2 when he is sleeping 3. Decrease the Bumex to 2 mg daily and start on Sunday. Continue to monitor daily weights post DC to TCU 4. He has been refusing to take the Oxycontin BID and he has not had a oxycodone since 01/21. He prefers to take the Tizanidine. Will change the Oxycontin to 10 mg at 8 PM daily. Continue the PRN Oxycodone. Wean the Oxycontin off over the next week 5. Pt will monitor his own fluid intake from now on to give him more control. 6. Transfer to TCU tomorrow. Visit Charges Inpatient E&M: 38002 Subs Hosp L2
[2021-01-27] MEDS: Insulin Lispro 100 UNIT/ML INSULN.PEN SC ×2 (16:58→21:24)
[2021-01-27 17:10] LABS: Bedside Glucose 307 mg/dL (70-110)
[2021-01-27 17:27] VITALS: O2SAT 98
--- NOTE | 2021-01-27 17:27 | CPS ---
Patient wears O2 at night only
[2021-01-27] MEDS: Pravastatin 40 MG Tablet PO (21:02)
[2021-01-27] MEDS: tiZANidine HCl 2 MG Tablet 4 MG PO (21:02)
[2021-01-27 21:19] VITALS: BP 99/47; PULSE 82; RESP 16; TEMP 36.6; O2SAT 93
[2021-01-27 21:31] LABS: Bedside Glucose 258 mg/dL (70-110)
[2021-01-27 22:00] VITALS: O2SAT 96
--- NOTE | 2021-01-28 03:42 | NURSING ---
REVIEWED AND AGREE WITH CHEMICAL LABORATORY TECHNICIAN'S HANDOFF AND FUNCTIONAL ASSESSMENT CHARTING.
[2021-01-28] MEDS: tiZANidine HCl 2 MG Tablet PO (05:48)
[2021-01-28] MEDS: Levothyroxine 100 MCG Tablet 200 MCG PO (05:48)
[2021-01-28] MEDS: Acetaminophen 500 MG Tablet 1000 MG PO (05:48)
[2021-01-28 06:46] LABS: Bedside Glucose 254 mg/dL (70-110)
[2021-01-28 07:50] VITALS: BP 103/50; PULSE 76; RESP 18; TEMP 36.8; O2SAT 100
[2021-01-28] MEDS: Carvedilol 3.125 MG TABLET PO (08:17)
[2021-01-28] MEDS: Pantoprazole Sodium 40 MG Tablet PO (08:17)
[2021-01-28] MEDS: Citalopram 10 MG Tablet PO (08:17)
[2021-01-28] MEDS: Magnesium Chloride 64 MG Delay Rel.Tablet 128 MG PO (08:17)
[2021-01-28] MEDS: Gabapentin 100 MG Capsule PO (08:17)
[2021-01-28] MEDS: Aspirin E.C. 81 MG Tablet PO (08:17)
[2021-01-28] MEDS: buPROPion (XL) 150 MG TABLET.XL PO (08:18)
[2021-01-28] MEDS: predniSONE 5 MG Tablet 2.5 MG PO (08:18)
[2021-01-28] MEDS: Clopidogrel Bisulfate 75 MG Tablet PO (08:18)
[2021-01-28] MEDS: Senna/Docusate Sodium 1 Tablet 2 TABLET PO (08:18)
[2021-01-28] MEDS: Insulin Lispro 100 UNIT/ML INSULN.PEN 9 UNIT SC (08:20)
[2021-01-28] MEDS: Nystatin Powder 15gm Bottle 1 APPLIC TOPICAL (08:23)
[2021-01-28] MEDS: Menthol/Lanolin/Calamine/Znox 113 GM Tube 1 APPLIC TOPICAL (08:23)
[2021-01-28 09:17] VITALS: BP 103/50; PULSE 76; RESP 18; TEMP 36.8; O2SAT 98
--- NOTE | 2021-01-28 09:20 | PCM.TXEXTCAR ---
Diet 01/22/21 13:23 Diet: Regular - General Food consistency:: Easy to Chew Liquid Consistency:: Regular/Thin Dietary Modifications:: Cardiac / Heart Healthy Is pt able to select menu?: Yes Fluid restriction:: 1500 mL Diet Comments: magic cup w/lunch Wound(s) r stump: Wound Type: Surgical Incision Dressing Change: bactroban with dry dressing coccyx: Wound Type: Pressure Injury blisters to right bka: Wound Type: blisters Dressing Change: bactroban with dry dressing Problem/Diagnosis (1) Status post below knee amputation of right lower extremity: Status: Acute (2) Diabetes mellitus: Status: Chronic (3) Debility: Status: Acute (4) Metabolic alkalosis: Status: Acute Comment: due to contraction alkalosis (5) Acute on chronic systolic CHF (congestive heart failure): Status: Chronic Comment: resolved (6) Hyponatremia: Status: Chronic Comment: stable (7) Acute renal failure: Status: Resolved (8) Acute blood loss anemia: Status: Resolved Comment: 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 goal is to maintain a goal HGB of 10. (9) Hypomagnesemia: Status: Resolved Comment: He is now on a supplement BID (10) ALL treated with BiPAP: Status: Chronic Comment: NOT USING PRESENTLY. the pulse while awake is appropriate on RA but, he must wear O2 at 2 LPM anytime he is sleeping. Allergies/Procedures Done in Hospital Allergies amiodarone Allergy (Severe, Verified 12/31/20 09:14) pulmonary fibrosis sotalol Allergy (Severe, Verified 12/31/20 09:14) intolerant levofloxacin [From Levaquin] Allergy (Verified 12/31/20 09:14) Pain in joints LEG CRAMPING gabapentin Adverse Reaction (Verified 12/31/20 09:14) Diarrhea latex Adverse Reaction (Verified 12/31/20 09:14) Rash Type of Care/Length of Stay Estimated LOS: Convalescent Care Less Than 30 days Type of Care Needed: Skilled Rehab Potential: Good Prognosis: Good Additional Orders/Day of Discharge Day of Discharge: 01/28/21 Dietary and Speech Recommendations Dietitian Recommendations/Changes: Continue cardiac heart healthy diet. D/c 120mL chocolate glucerna at meals. Continue magic cup w/ lunches instead. Continue daily wts. Quynh Piña MS, RDN, LD Follow Up Care Please Follow Up With: Scar Whitman MD When: Sunday Discharge Plan Admission Admit Date/Time: 01/12/21 18:38 Attending Provider: Jonh Bond Chi Primary Care Provider: Jcarlos Glasgow Consulting Providers: Scar Whitman Instructions Additional Instructions / Restrictions: 1. BMP and a CBC with Diff on Sunday. 2. He will be followed by Evelyne Wan and Audrey Sanchez TECHNICAL STENOGRAPHER while on TCU 3. Will follow up in the wound care Center following DC from TCU 4. His blood sugars are difficult to control because sometimes he skips meals. At the time of DC I placed him back on the insulin regimen he was on at home. HGBA1C was good at admission to rehab 5. Hold the Coreg for systolic BP < 100. 6. There is a urine culture pending. He has empirically been placed on Cefdinir for 2 days while we await the results of the urine culture. Discharge Orders/Prescriptions Prescriptions: New citalopram 10 mg Tablet 10 mg PO DAILY Qty: 1 RF: 0 pantoprazole 40 mg Tablet,Delayed Release (Dr/Ec) 40 mg PO DAILY Qty: 1 RF: 0 bisacodyl 10 mg Suppository 10 mg [place] .PRN X 1 PRN (Reason: Constipation) Qty: 0 RF: 0 bumetanide 2 mg Tablet 2 mg PO DAILY Qty: 1 RF: 0 carvedilol 3.125 mg Tablet 3.125 mg PO BIDCM Qty: 0 RF: 0 gabapentin 100 mg Capsule 100 mg PO BIDCM Qty: 0 RF: 0 bupropion HCl 150 mg Tablet Extended Release 24 Hr 150 mg PO DAILY Qty: 0 RF: 0 magnesium chloride [Mag 64] 64 mg Tablet,Delayed Release (Dr/Ec) 128 mg PO BID Qty: 1 RF: 0 GlucaGen Diagnostic Kit 1 mg/mL Recon Soln 1 mg IM .X1 PRN (Reason: Hypoglycemia) Qty: 0 RF: 0 magnesium hydroxide 400 mg/5 mL Suspension 30 ml PO .PRN X 1 PRN (Reason: Constipation) Qty: 0 RF: 0 sennosides-docusate sodium [Stool Softener-Stimulant Laxat] 8.6-50 mg Tablet 2 tab PO BID Qty: 1 RF: 0 nystatin [Nyamyc] 100,000 unit/gram Powder 1 applic topical BID Qty: 0 RF: 0 oxycodone 5 mg Tablet 5 mg PO Q4H PRN PRN (Reason: Pain Score 6-10) Qty: 0 RF: 0 menthol-zinc oxide [Calmoseptine] 0.44-20.6 % Ointment 1 applic topical BID Qty: 0 RF: 0 Biotene Dry Mouth Oral Rinse Mouthwash 15 ml mucous membrane 5X/DAY PRN (Reason: Dry Mouth) Qty: 0 RF: 0 tizanidine 2 mg Tablet 2 mg PO 0600,1400 Qty: 0 RF: 0 tizanidine 2 mg Tablet 4 mg PO QHS Qty: 0 RF: 0 Continued prednisone 2.5 mg tablet 2.5 mg PO DAILY RF: 0 aspirin [Adult Aspirin Regimen] 81 mg tablet,delayed release (DR/EC) 81 mg PO DAILY RF: 0 Lantus U-100 Insulin 100 UNIT/ML solution 10 unit SQ BID RF: 0 insulin regular human 100 UNIT/ML solution 10 units SC BREAKFAST RF: 0 insulin regular human 100 UNIT/ML solution 20 units SC DINNER RF: 0 pravastatin 40 MG tablet 40 mg PO QHS RF: 0 clopidogrel 75 MG tablet 75 mg PO DAILY RF: 0 dextrose 38 GM gel 1 dose PO PRN PRN (Reason: Hypoglycemia) RF: 0 ipratropium bromide 1 SPRAY spray,non-aerosol 1 spray NASAL PRN PRN (Reason: Runny Nose) RF: 0 doxycycline hyclate 100 mg capsule 100 mg PO BID Qty: 20 RF: 0 ammonium lactate 396 GM lotion 227 gm TP DAILY RF: 0 ondansetron HCl [Zofran] 4 mg tablet 4 mg PO Q8H RF: 0 Changed acetaminophen 500 mg tablet 1,000 mg PO Q8 Qty: 0 RF: 0 levothyroxine 200 mcg tablet 200 mcg PO DAILY Qty: 0 RF: 0 Discontinued omeprazole 40 mg capsule,delayed release(DR/EC) 40 mg PO DAILY RF: 0 furosemide 40 mg tablet 40 mg PO BID RF: 0 citalopram 20 mg Tablet 20 mg PO DAILY RF: 0 oxycodone-acetaminophen [Percocet] 5-325 mg tablet 1 tab PO Q4H PRN (Reason: pain (scale score 7-10)) 7 Days Qty: 30 RF: 0 metoprolol succinate 50 mg tablet extended release 24 hr 50 mg PO DAILY Qty: 180 RF: 3 lisinopril 2.5 mg tablet 2.5 mg PO DAILY Qty: 90 RF: 4 No Action tizanidine 4 mg tablet 4 mg PO Q8H PRN (Reason: MUSCLE SPASMS) RF: 0 Referrals / Follow Up: Jcarlos Glasgow MD [Primary Care Provider] - Disposition Disposition (needs filled in before D/C Order can be placed): Custodial Facility
--- NOTE | 2021-01-28 09:42 | PCM.DC.SUM ---
Providers Date of Admission: 01/12/21 Primary Care Physician: Dr. Jcarlos Glasgow MD Consultations 01/13/21 07:17 Consult: Onc/Wound/hrbp Routine Comment: Reason for Consult:: RT BKA 01/17/21 11:44 Consult: Pain Management Routine Consulting Provider: Scar Whitman Reason for Consult: uncontrolled pain S/P BKA EMERGENT Consult: No MD Notified: Yes Date Notified: 01/17/21 Time Notified: 11:45 Method of Notification: Answering Service Method of Consult:: In-Person Comments:: spoke to his office Reason For Visit: RIGHT BELOW KNEE AMPUTATION Diagnosis Discharge Diagnosis (1) Debility: Status: Acute Code(s): R53.81 - Other malaise (2) Status post below knee amputation of right lower extremity: Status: Acute Code(s): Z89.511 - Acquired absence of right leg below knee (3) Acute renal failure: Status: Resolved Code(s): N17.9 - Acute kidney failure, unspecified Qualifiers: Acute renal failure type: unspecified Qualified Code(s): N17.9 - Acute kidney failure, unspecified (4) Acute on chronic systolic CHF (congestive heart failure): Status: Resolved Code(s): I50.23 - Acute on chronic systolic (congestive) heart failure (5) Metabolic alkalosis: Status: Acute Code(s): E87.3 - Alkalosis (6) Acute blood loss anemia: Status: Resolved Code(s): D62 - Acute posthemorrhagic anemia (7) Hyponatremia: Status: Chronic Code(s): E87.1 - Hypo-osmolality and hyponatremia (8) Hypomagnesemia: Status: Resolved Code(s): E83.42 - Hypomagnesemia (9) ALL treated with BiPAP: Status: Chronic Code(s): G47.33 - Obstructive sleep apnea (adult) (pediatric) (10) Macrocytic anemia: Status: Chronic Code(s): D53.9 - Nutritional anemia, unspecified (11) Chronic obstructive pulmonary disease: Status: Chronic Code(s): J44.9 - Chronic obstructive pulmonary disease, unspecified Qualifiers: COPD type: unspecified COPD Qualified Code(s): J44.9 - Chronic obstructive pulmonary disease, unspecified (12) Chronic systolic congestive heart failure: Status: Chronic Code(s): I50.22 - Chronic systolic (congestive) heart failure (13) Peripheral arterial occlusive disease: Status: Chronic Code(s): I77.9 - Disorder of arteries and arterioles, unspecified (14) Obstructive sleep apnea: Status: Chronic Code(s): G47.33 - Obstructive sleep apnea (adult) (pediatric) (15) Type 2 diabetes mellitus with diabetic polyneuropathy: Status: Chronic Code(s): E11.42 - Type 2 diabetes mellitus with diabetic polyneuropathy (16) Ischemic cardiomyopathy: Status: Chronic Code(s): I25.5 - Ischemic cardiomyopathy (17) Diaphragm paralysis: Status: Chronic Code(s): J98.6 - Disorders of diaphragm (18) Diabetes mellitus type 2 with atherosclerosis of arteries of extremities: Status: Chronic Code(s): E11.59 - Type 2 diabetes mellitus with other circulatory complications; I70.209 - Unspecified atherosclerosis of [place] arteries of extremities, unspecified extremity (19) Coronary artery disease involving [place] coronary artery of [place] heart: Status: Chronic Code(s): I25.10 - Atherosclerotic heart disease of [place] coronary artery without angina pectoris Qualifiers: Associated angina: without angina Qualified Code(s): I25.10 - Atherosclerotic heart disease of [place] coronary artery without angina pectoris Plan: Transfer to TCU for additional PT/OT prior to discharging home. Medications at Discharge Home Medications prednisone 2.5 mg tablet 2.5 mg PO DAILY 08/05/19 aspirin 81 mg tablet,delayed release 81 mg PO DAILY 12/17/19 Lantus U-100 Insulin 10 unit SQ BID 06/09/20 insulin regular human 10 units SC BREAKFAST 06/11/20 insulin regular human 20 units SC DINNER 06/11/20 clopidogrel 75 mg PO DAILY 08/06/20 pravastatin 40 mg PO QHS 08/06/20 dextrose 1 dose PO PRN PRN 09/01/20 ipratropium bromide 1 spray NASAL PRN PRN 09/10/20 tizanidine 4 mg tablet 4 mg PO Q8H PRN tablet 10/25/20 ammonium lactate 227 gm TP DAILY 01/12/21 ondansetron HCl [Zofran] 4 mg PO Q8H 01/12/21 doxycycline hyclate 100 mg PO BID #20 cap 01/14/21 acetaminophen 1,000 mg PO Q8 #0 tab 01/28/21 bisacodyl 10 mg GA .PRN X 1 PRN #0 ea 01/28/21 bumetanide 2 mg PO DAILY #1 tab 01/28/21 bupropion HCl 150 mg PO DAILY #0 tab 01/28/21 carvedilol 3.125 mg PO BIDCM #0 tab 01/28/21 cefdinir 300 mg PO BID #5 cap 01/28/21 citalopram 10 mg PO DAILY #1 tab 01/28/21 gabapentin 100 mg PO BIDCM #0 cap 01/28/21 glucagon [GlucaGen Diagnostic Kit] 1 mg IM .X1 PRN #0 ea 01/28/21 levothyroxine 200 mcg PO DAILY #0 tab 01/28/21 magnesium chloride [Mag 64] 128 mg PO BID #1 tab 01/28/21 magnesium hydroxide 30 ml PO .PRN X 1 PRN #0 ml 01/28/21 menthol-zinc oxide [Calmoseptine] 1 applic TOPICAL BID #0 g 01/28/21 nystatin [Nyamyc] 1 applic TOPICAL BID #0 g 01/28/21 oxycodone 5 mg PO Q4H PRN PRN #0 tab 01/28/21 pantoprazole 40 mg PO DAILY #1 tab 01/28/21 saliva substitute combo no.9 [Biotene Dry Mouth Oral Rinse] 15 ml MUCOUS MEMBRANE 5X/DAY PRN #0 ml 01/28/21 sennosides-docusate sodium [Stool Softener-Stimulant Laxat] 2 tab PO BID #1 tab 01/28/21 tizanidine 2 mg PO 0600,1400 #0 tab 01/28/21 tizanidine 4 mg PO QHS #0 tab 01/28/21 Hospital Course Operations None Procedures Blood transfusion (2 units) Summary of Care Provided Minutes Spent on Discharge: 50 Hospital Course: Alonzo Carr is a 75 YO male with a PMH of DM II, PM/AICD presence, COPD, CAD, hx of CABG, Hx of PTCA/stents, ischemic CM(19% EF), LAE, pulmonary hypertension, Depression, PVD, 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 Lopez. I reviewed the operative report and the tourniquet time was 91 minutes. He underwent drug coated balloon angioplasty of the right femoral artery by Dr. Busch within the past 6 months. He was transferred to the [facility] acute rehab unit on 01/12/21 for 3 hours of therapy daily to help restore him to ambulatory status. He has a prosthesis for the L leg due to a prior L BKA. On 01/15/21 the Creat was increased at 1.55, up from 1.03 on 01/11/21. He had rales in the bases and pitting edema of the flanks, R stump and the posterior thighs BL. His wt was increased at 194.9 lbs and he told me his usual weight was in the high 170's and 180's....this was prior to the R BKA. Lasix was held at admission to rehab. He was started on Bumex 4 mg daily and then placed on a fluid restriction of 1500 cc's per day. As he diuresed the creat came down and the sodium increased to 134-135 and remained stable. On 01/27 He had no pitting edema in the flanks but there was still a trace of pitting edema in the posterior thighs. The swelling in the stumps had decreased significantly and the lungs were CTA. Lab showed a potassium of 4.3, sodium of 134 and an elevated carbon dioxide at 48. BUN was stable at 35 and the creatinine was stable at 1.19. An ABG was obtained and the pH was 7.55. He was diagnosed with probable contraction alkalosis and the Bumex was held for a day and then the dose was decreased to 2 mg daily which will start Sunday. He denies SOB on that date and also denied lightheadedness with standing. He was transfused 2 units of PRBC's while in rehab for a HGB of 7.8. He has a hx of a immune mediated anemia and the goal is to keep the HGB at 10. He is on Prednisone 2.5 mg daily and he sees Dr. Sow. A Hemoccult stool was checked and this was negative. Hemoglobin has remained stable and the blood pressure is also stable. Pt was quite orthostatic on Metoprolol XL 50 mg daily and Lisinopril 2.5 mg even after transfusion. Lisinopril and metoprolol XL 50 mg were discontinued and he was started on Coreg 3.125 mg p.o. twice daily within order to hold if systolic less than 100. It was held only a few times and he has been tolerating this dose with no hypotension and no complaints of dizziness. Alonzo worked hard in therapy and prior to discharge he was able to use a sliding board for transitioning into the wheelchair at standby assist. He was contact-guard assist/moderate assist for standing and pivoting into the wheelchair. On 01/26/2021 he stood 3 times from the wheelchair with a wheeled walker and the prosthesis on the left leg. He was able to propel a wheelchair 250 feet with several turns and maneuvering backwards. He required minimal assistance with bathing and minimal assistance with lower body dressing. He is still requiring moderate assistance with toileting at the time of discharge. His came in for family training on 01/26/21 and she and Alonzo decided that he was not quite ready to return home yet. His did not think she could provide enough physical support at his current level of debility. He was transferred to the transitional Care Unit for additional PT/OT prior to returning home. He will follow up with Dr. Lopez or Audrey Sanchez NP in the [facility] [place]. Early in the admission Alonzo had severe pain and was started on OxyContin 10 mg p.o. twice daily. At the time of discharge he had been refusing OxyContin and was taking oxycodone 5 mg 2-4 times a day along with acetaminophen 1 g p.o. every 8 hours. On 01/26/2021 nursing reported that his urine had a foul odor and he had complained of some mild dysuria with urination. The Wills had been removed. UA showed 0-5 RBCs per high-power field and 5-10 WBCs per high-power field with 3+ bacteria. He was started on cefdinir 300 mg p.o. twice daily pending the results of the urine culture. A urine culture done earlier in the admission when the WBCs were much higher had no growth. Alonzo was transferred to transitional care on 01/28/2021 in stable condition. ARF had resolved and acute systolic and diastolic CHF had resolved also. The weight at [place] is 171 pounds and 12.8 ounces. Physical Exam Const alert, oriented x3 and no apparent distress General Appearance: cooperative and comfortable Chest Chest: symmetrical chest wall rise Resp normal respiratory effort, no use of accessory muscles and clear to auscultation bilaterally Resp Narrative: The BS's on the right side are always diminished when compared to the left due to paralysis of the right hemidiaphragm. Effort and Inspection: able to speak in complete sentences Auscultation: diminished lung sounds Cardio regular rate, regular rhythm, no murmurs and no gallops Jugular Venous Distention: JVD GI soft to palpation, non-tender and non-distended GI Narrative: normal BS's heard, no guarding with palpation Extremity Extremity Narrative: minimal posterior thigh edema. Skin Skin Narrative: Rashes: no rashes Wound Narrative: R BKA incision is healing. There is no dehiscence. The previous small fluid filled blisters have dried up. The edema is decreasing and the stump is shrinking. Neuro oriented x3, CN's II-XII intact bilaterally and no focal motor deficits Psych mental status grossly normal Psych Narrative: poor short term memory Appearance: appropriate Activity / Motor Behavior: appropriate eye contact Weight / BMI Weight Weight: 171 lb 12.794 oz Body Mass Index (BMI) 26.1 ABG / Lab / Microbiology Data Result Diagrams: 01/20/21 05:34 01/27/21 05:27 Laboratory: Laboratory Results - last 24 hr 01/27/21 11:03: POC Glucose 368 H 01/27/21 16:58: POC Glucose 307 H 01/27/21 21:22: POC Glucose 258 H 01/28/21 06:40: POC Glucose 254 H Microbiology: Microbiology 01/27/21 17:00 Mucosa - Nasopharyngeal SARS-CoV-2 Antigen (Rapid) - Final 01/22/21 08:30 Stool Stool Occult Blood (YAJAIRA) - Final 01/14/21 22:44 Urine Catheter - Catheter Urine Culture - Final Culture exhibits no growth. ABG: ABG 01/27/21 11:27 Specimen Type ART Sample Site R Radial pH 7.55 H Bicarbonate Actual 33.9 H Total CO2 35 Base Excess 12 H O2 Saturation 95 O2 % 21 ABG pCO2 38.9 ABG pO2 64 L Rafiq Test Positive O2 Delivery Device Room Air D/C Instructions Please Follow Up With: Scar Whitman MD Meaningful Use Info Meaningful Use Diagnoses (Choose all that apply): CHF CHF JIGAR/ARB ordered at discharge?: No Reason JIGAR/ARB not ordered?: Hypotension Documented LVEF (%): 19 Discharge Plan Admission Admit Date/Time: 01/12/21 18:38 Attending Provider: Jonh Bond Chi Primary Care Provider: Jcarlos Glasgow Consulting Providers: Scar Whitman Instructions Additional Instructions / Restrictions: 1. BMP and a CBC with Diff on Sunday. 2. He will be followed by Evelyne Wan and Audrey Sanchez MEDICAL LABORATORY TECHNICIAN while on TCU 3. Will follow up in the wound care Center following DC from TCU 4. His blood sugars are difficult to control because sometimes he skips meals. At the time of DC I placed him back on the insulin regimen he was on at home. HGBA1C was good at admission to rehab 5. Hold the Coreg for systolic BP < 100. 6. There is a urine culture pending. He has empirically been placed on Cefdinir for 2 days while we await the results of the urine culture. Discharge Orders/Prescriptions Prescriptions: New citalopram 10 mg Tablet 10 mg PO DAILY Qty: 1 RF: 0 pantoprazole 40 mg Tablet,Delayed Release (Dr/Ec) 40 mg PO DAILY Qty: 1 RF: 0 bisacodyl 10 mg Suppository 10 mg GA .PRN X 1 PRN (Reason: Constipation) Qty: 0 RF: 0 bumetanide 2 mg Tablet 2 mg PO DAILY Qty: 1 RF: 0 carvedilol 3.125 mg Tablet 3.125 mg PO BIDCM Qty: 0 RF: 0 gabapentin 100 mg Capsule 100 mg PO BIDCM Qty: 0 RF: 0 bupropion HCl 150 mg Tablet Extended Release 24 Hr 150 mg PO DAILY Qty: 0 RF: 0 magnesium chloride [Mag 64] 64 mg Tablet,Delayed Release (Dr/Ec) 128 mg PO BID Qty: 1 RF: 0 GlucaGen Diagnostic Kit 1 mg/mL Recon Soln 1 mg IM .X1 PRN (Reason: Hypoglycemia) Qty: 0 RF: 0 magnesium hydroxide 400 mg/5 mL Suspension 30 ml PO .PRN X 1 PRN (Reason: Constipation) Qty: 0 RF: 0 sennosides-docusate sodium [Stool Softener-Stimulant Laxat] 8.6-50 mg Tablet 2 tab PO BID Qty: 1 RF: 0 nystatin [Nyamyc] 100,000 unit/gram Powder 1 applic topical BID Qty: 0 RF: 0 oxycodone 5 mg Tablet 5 mg PO Q4H PRN PRN (Reason: Pain Score 6-10) Qty: 0 RF: 0 menthol-zinc oxide [Calmoseptine] 0.44-20.6 % Ointment 1 applic topical BID Qty: 0 RF: 0 Biotene Dry Mouth Oral Rinse Mouthwash 15 ml mucous membrane 5X/DAY PRN (Reason: Dry Mouth) Qty: 0 RF: 0 tizanidine 2 mg Tablet 2 mg PO 0600,1400 Qty: 0 RF: 0 tizanidine 2 mg Tablet 4 mg PO QHS Qty: 0 RF: 0 cefdinir 300 mg capsule 300 mg PO BID Qty: 5 RF: 0 Continued prednisone 2.5 mg tablet 2.5 mg PO DAILY RF: 0 aspirin [Adult Aspirin Regimen] 81 mg tablet,delayed release (DR/EC) 81 mg PO DAILY RF: 0 Lantus U-100 Insulin 100 UNIT/ML solution 10 unit SQ BID RF: 0 insulin regular human 100 UNIT/ML solution 10 units SC BREAKFAST RF: 0 insulin regular human 100 UNIT/ML solution 20 units SC DINNER RF: 0 pravastatin 40 MG tablet 40 mg PO QHS RF: 0 clopidogrel 75 MG tablet 75 mg PO DAILY RF: 0 dextrose 38 GM gel 1 dose PO PRN PRN (Reason: Hypoglycemia) RF: 0 ipratropium bromide 1 SPRAY spray,non-aerosol 1 spray NASAL PRN PRN (Reason: Runny Nose) RF: 0 doxycycline hyclate 100 mg capsule 100 mg PO BID Qty: 20 RF: 0 ammonium lactate 396 GM lotion 227 gm TP DAILY RF: 0 ondansetron HCl [Zofran] 4 mg tablet 4 mg PO Q8H RF: 0 Changed acetaminophen 500 mg tablet 1,000 mg PO Q8 Qty: 0 RF: 0 levothyroxine 200 mcg tablet 200 mcg PO DAILY Qty: 0 RF: 0 Discontinued omeprazole 40 mg capsule,delayed release(DR/EC) 40 mg PO DAILY RF: 0 furosemide 40 mg tablet 40 mg PO BID RF: 0 citalopram 20 mg Tablet 20 mg PO DAILY RF: 0 oxycodone-acetaminophen [Percocet] 5-325 mg tablet 1 tab PO Q4H PRN (Reason: pain (scale score 7-10)) 7 Days Qty: 30 RF: 0 metoprolol succinate 50 mg tablet extended release 24 hr 50 mg PO DAILY Qty: 180 RF: 3 lisinopril 2.5 mg tablet 2.5 mg PO DAILY Qty: 90 RF: 4 No Action tizanidine 4 mg tablet 4 mg PO Q8H PRN (Reason: MUSCLE SPASMS) RF: 0 Referrals / Follow Up: Jcarlos Glasgow MD [Primary Care Provider] - Disposition Disposition (needs filled in before D/C Order can be placed): [facility] Charges/Coding Visit Charges Inpatient E&M: 57773 Disch Hosp
--- NOTE | 2021-01-28 11:24 | NURSING ---
Discharged to TCU report called to Jerrica ROBLES
== END 2021-01-28 11:18 | disposition skilled nursing facility (03) | DRG 560 ==
PROVIDERS: Internal Medicine; Admitting Provider Family Medicine Geriatric Medicine; PCP Family Medicine; Visit Provider Family Medicine Geriatric Medicine
DX: Z47.81 Encounter for orthopedic aftercare following surgical amputation (principal); I50.42 Chronic combined systolic (congestive) and diastolic (congestive) heart failure; L03.115 Cellulitis of right lower limb; M86.8X7 Other osteomyelitis, ankle and foot; D62 Acute posthemorrhagic anemia; E87.1 Hypo-osmolality and hyponatremia; N17.9 Acute kidney failure, unspecified; Z89.511 Acquired absence of right leg below knee; J44.9 Chronic obstructive pulmonary disease, unspecified; E11.42 Type 2 diabetes mellitus with diabetic polyneuropathy; I25.10 Atherosclerotic heart disease of native coronary artery without angina pectoris; G47.33 Obstructive sleep apnea (adult) (pediatric); I25.5 Ischemic cardiomyopathy; E11.51 Type 2 diabetes mellitus with diabetic peripheral angiopathy without gangrene; F32.9 Major depressive disorder, single episode, unspecified; B95.62 Methicillin resistant Staphylococcus aureus infection as the cause of diseases classified elsewhere; E11.69 Type 2 diabetes mellitus with other specified complication; K21.9 Gastro-esophageal reflux disease without esophagitis; E03.9 Hypothyroidism, unspecified; E78.5 Hyperlipidemia, unspecified; Z87.891 Personal history of nicotine dependence; Z79.899 Other long term (current) drug therapy; Z79.52 Long term (current) use of systemic steroids; Z79.02 Long term (current) use of antithrombotics/antiplatelets; Z95.810 Presence of automatic (implantable) cardiac defibrillator; Z99.81 Dependence on supplemental oxygen; Z79.890 Hormone replacement therapy; Z79.4 Long term (current) use of insulin; I95.9 Hypotension, unspecified; Z95.1 Presence of aortocoronary bypass graft; I27.20 Pulmonary hypertension, unspecified
CPT/HCPCS: 36415; 36600; 80048; 80053; 81001; 82274; 82533; 82803; 82947; 82962; 83735; 84100; 85025; 85027; 86850; 86900; 86901; 87077; 87086; 87088; 87186; 87426; 92507; 92523; 92526; 92610; 94762; 97110; 97162; 97166; 97530; 97535; 97542; 97802; 97803; 99251; J7030; P9040; A4216; G0463; J1940

== ENCOUNTER 2021-01-28 11:22 | Inpatient (IN) | payer MEDICARE, OTHER, SELFPAY ==
[2021-01-28 11:29] VITALS: BP 132/51; PULSE 91; RESP 16; TEMP 36.4; O2SAT 95; BMI 24.0
[2021-01-28 11:55] LABS: Bedside Glucose 145 mg/dL (70-110)
--- NOTE | 2021-01-28 13:06 | HP.PCM_ITS ---
HPI - General General Date of Admission: 01/28/21 HPI Narrative 01/10/2021 KURT JEONG, is a 75 Male who presents for right below the knee amputation per Dr. Lopez. 01/12/2021 Admit to for greater than 3 hours therapy daily. 01/14/2021 2 person assist to stand pivot, unable to perform at home. 01/16/2021 Taper Citalopram, Add wellbutrin 150mg daily for depression. Start Bumex for swelling. Urine culture negative. 01/27/2021 Right below knee amputation stump blistering, swelling resolved. Right below knee amputation asif drain removed, stop doxycycline. JIGAR wrap to right below knee amputation stump for welling. Acute kidney injury resolved. Acute systolic, diastolic heart failure resolved. Orthostatic hypotension resolved. On Cefdinir 300MG twice daily for urinary tract infection, urine culture growing > 100,000 gram negative rods. [facility] Medical History Amputation of right foot Anemia Biventricular implantable cardioverter-defibrillator (ICD) in situ Cardiology follow-up encounter Cellulitis of right lower extremity COPD (chronic obstructive pulmonary disease) Coronary artery disease Coronary artery disease involving quechan coronary artery of quechan heart Delayed wound healing Depression Diabetes Diabetes mellitus type 2 with atherosclerosis of arteries of extremities Diaphragm paralysis Diarrhea Difficulty balancing Difficulty chewing Difficulty swallowing Fatigue Former smoker Gastric reflux Glaucoma High cholesterol History of edema History of irregular heartbeat History of pacemaker History of steroid therapy History of stress test Insulin dependent diabetes mellitus Ischemic cardiomyopathy Ischemic cardiomyopathy with implantable cardioverter-defibrillator (ICD) Malnutrition Nausea vomiting and diarrhea Non-pressure chronic ulcer of other part of right foot with fat layer exposed Non-pressure chronic ulcer of other part of right foot with muscle involvement without evidence of necrosis Non-pressure chronic ulcer of right calf limited to breakdown of skin On home oxygen therapy 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 Other specified peripheral vascular diseases Peripheral vascular disease due to secondary diabetes Personal history of Methicillin resistant Staphylococcus aureus infection Pseudomonas aeruginosa infection Pulmonary HTN SOB (shortness of breath) Status post below knee amputation of right lower 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 Tachycardia Type 2 diabetes mellitus with diabetic polyneuropathy Ulcer of right foot with fat layer exposed Ulcer of right foot with muscle involvement without evidence of necrosis Ulcer of right foot with necrosis of bone Ulcer of right foot with necrosis of muscle Ulcer of right lower extremity with fat layer exposed Ulcer of right lower extremity with fat layer exposed Uses wheelchair Wears glasses Wears hearing aid Wears hearing aid in both ears Home Medications prednisone 2.5 mg tablet 2.5 mg PO DAILY 08/05/19 [History Last Taken 08/13/20] aspirin 81 mg tablet,delayed release 81 mg PO DAILY 12/17/19 [History Last Taken 08/13/20] Lantus U-100 Insulin 10 unit SQ BID 06/09/20 [History Last Taken 08/13/20] insulin regular human 10 units SC BREAKFAST 06/11/20 [History Last Taken 08/13/20] insulin regular human 20 units SC DINNER 06/11/20 [History Last Taken Unknown] clopidogrel 75 mg PO DAILY 08/06/20 [History Last Taken 08/13/20] pravastatin 40 mg PO QHS 08/06/20 [History Last Taken 08/13/20] dextrose 1 dose PO PRN PRN 09/01/20 [History Last Taken Unknown] ipratropium bromide 1 spray NASAL PRN PRN 09/10/20 [History Last Taken Unknown] tizanidine 4 mg tablet 4 mg PO Q8H PRN tablet 10/25/20 [History Last Taken Unknown] ammonium lactate 227 gm TP DAILY 01/12/21 [History Last Taken Unknown] ondansetron HCl [Zofran] 4 mg PO Q8H 01/12/21 [History Last Taken Unknown] acetaminophen 1,000 mg PO Q8 #0 tab 01/28/21 [Rx Last Taken 01/10/21 05:00 1000 MG] bisacodyl 10 mg [place] .PRN X 1 PRN #0 ea 01/28/21 [Rx Last Taken Unknown] bumetanide 2 mg PO DAILY 01/28/21 [History Last Taken Unknown] bupropion HCl 150 mg PO DAILY 01/28/21 [History Last Taken Unknown] carvedilol 3.125 mg PO BIDCM 01/28/21 [History Last Taken Unknown] cefdinir 300 mg PO BID 01/28/21 [History Last Taken Unknown] citalopram 10 mg PO DAILY 01/28/21 [History Last Taken Unknown] doxycycline hyclate 100 mg PO BID 01/28/21 [History Last Taken Unknown] gabapentin 100 mg PO BIDCM 01/28/21 [History Last Taken Unknown] glucagon [GlucaGen Diagnostic Kit] 1 mg IM .X1 PRN #0 ea 01/28/21 [Rx Last Taken Unknown] levothyroxine 200 mcg PO DAILY #0 tab 01/28/21 [Rx Last Taken 08/13/20] magnesium chloride [Mag 64] 128 mg PO BID 01/28/21 [History Last Taken Unknown] magnesium hydroxide 30 ml PO .PRN X 1 PRN #0 ml 01/28/21 [Rx Last Taken Unknown] menthol-zinc oxide [Calmoseptine] 1 applic TOPICAL BID 01/28/21 [History Last Taken Unknown] nystatin [Nyamyc] 1 applic TOPICAL BID 01/28/21 [History Last Taken Unknown] oxycodone 5 mg PO Q4H PRN PRN #0 tab 01/28/21 [Rx Last Taken Unknown] pantoprazole 40 mg PO DAILY 01/28/21 [History Last Taken Unknown] saliva substitute combo no.9 [Biotene Dry Mouth Oral Rinse] 15 ml MUCOUS MEMBRANE 5X/DAY PRN #0 ml 01/28/21 [Rx Last Taken Unknown] sennosides-docusate sodium [Stool Softener-Stimulant Laxat] 2 tab PO BID 01/28/21 [History Last Taken Unknown] tizanidine 2 mg PO 0600,1400 01/28/21 [History Last Taken Unknown] tizanidine 4 mg PO QHS 01/28/21 [History Last Taken Unknown] Allergy/AdvReac Type Severity Reaction Status Date / Time amiodarone Allergy Severe pulmonary Verified 12/31/20 09:14 fibrosis sotalol Allergy Severe intolerant Verified 12/31/20 09:14 levofloxacin [From Levaquin] Allergy Pain in Verified 12/31/20 09:14 joints gabapentin AdvReac Diarrhea Verified 12/31/20 09:14 latex AdvReac Rash Verified 12/31/20 09:14 Family History Sister Diabetes Mother Heart disease Valve replacement Father Diabetes Surgical History History of amputation of toe History of bilateral cataract extraction History of cardiac catheterization History of cholecystectomy History of coronary artery bypass graft (~2003) History of coronary artery stent placement (~03/2019) History of endoscopy History of implantable cardiac defibrillator (ICD) History of left below knee amputation (~2014) Hx of amputation Presence of permanent cardiac pacemaker (~08/2020) Status post below-knee amputation of left lower extremity Social History household members: spouse Smoking Status: Former smoker quit date: 07/02/98 pack-years: 34 alcohol intake: current alcohol intake frequency: holidays/special occasions only substance use type: does not use caffeine: Yes Type: coffee Number of servings: 2 ROS Constitutional Constitutional: Denies chills, fever(s) or weight gain ENT HEENT: Denies headache(s), nasal congestion or nasal discharge Cardiovascular Cardiovascular: Denies chest pain or palpitations Respiratory/Chest Respiratory/Chest: Denies cough, excessive phlegm production or shortness of breath with exertion Gastrointestinal Gastrointestinal: Denies abdominal pain, nausea or vomiting Genitourinary Genitourinary: Denies dysuria Musculoskeletal Musculoskeletal: Denies joint pain or joint swelling Integumentary Integumentary: Denies rash or wounds Neurologic Neurologic: Denies focal weakness, numbness or tingling Psychiatric Psychiatric: Reports auditory hallucinations; Denies anxiety, depression, homicidal ideation or suicidal ideation Vital Signs Vital Signs Vital Signs: Weight Body Mass Index (BMI) 26.1 Physical Exam Const alert and oriented x3 General Appearance: cooperative HEENT normocephalic Eyes PERRL and EOMs intact bilaterally Neck supple, no JVD and no carotid bruits Resp normal respiratory effort, normal air movement and clear to auscultation bilaterally Cardio regular rate and regular rhythm GI normal to inspection, nondistended, normoactive bowel sounds, non-tender and non-distended Extremity normal capillary refill Extremity Narrative: Bilateral below knee amputations. General Extremity: Negative for edema Skin no rashes or lesions noted General Skin Exam: no breakdown Psych affect normal Appearance: appropriate Results Lab / Micro Data Labs: Laboratory Results - last 24 hr 01/28/21 11:51: POC Glucose 145 H Assessment & Plan Assessment/Plan (1) Debility: (2) Below-knee amputation of right lower extremity: (3) Acute kidney injury: (4) Orthostatic hypotension: (5) Acute on chronic systolic congestive heart failure: (6) Urinary tract infection: (7) Diabetes mellitus: (8) Chronic obstructive pulmonary disease: (9) Coronary artery disease: (10) Glaucoma: (11) Obstructive sleep apnea: (12) Peripheral arterial occlusive disease: (13) Hypothyroidism: (14) Gastroesophageal reflux disease: (15) Hyperlipidemia: PLAN: 75 year old male with below past medical history 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 * Debility - PT/OT. * Pain - Tylenol 1000mg q8H, Oxycodone 5mg q4H prn pain (6-10). * Bowel - Senna/colace 2 tablets twice daily, Dulcolax 10mg [place] x 1 prn, MOM 30ml po x 1 PRN. * Adult immunization - Administer prevnar 13, pneumovax 23, fluzone, covid19 vaccine as appropriate. * DVT prophylaxis - Hold, on dual anitplatelet therapy. * Skin irritation - Ammonium lactate topical daily, Calmoseptine topical twice daily. * Coronary artery disease - Coreg 3.125mg twice daily, Plavix 75mg daily, aspirin 81mg daily. * Chronic systolic congestive heart failure - Coreg 3.125mg twice daily, Bumex 2mg daily. 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 * Gram negative dilan urinary tract infection - Cefdinir 300mg twice daily x 7 days, follow urine culture. * Neuropathic pain - Gabapentin 100mg twice daily. * Diabetes Mellitus II - Lantus 10 units twice daily, Humalog 10 units AM, 20 units dinner, Glucagon 1mg im x 1 prn hypoglycemia, Glucose oral gel prn hypoglycemia. * Allergic rhinitis - Atrovent 1 spray nasal prn. * Hypothyroidism - Levothyroxine 200mcg daily. * Hypomagnesemia - Magnesium chloride 128mg twice daily. * Tinea corporis - Nystatin powder topical twice daily. * Nausea - Zofran 4mg Q8H. * GERD - Pantoprazole 40mg daily. * Hyperlipidemia - Pravastatin 40mg QHS. * Auto-immunine anemia - prednisone 2.5mg daily. * Dry mouth - Saliva 15ml 5x/day prn. * Muscle spasm - Tizanidine 2mg twice daily, 4mg QHS, 4mg Q8H PRN.
--- NOTE | 2021-01-28 13:44 | CASEMGMT ---
Social Work SW met with pt for initial assessment. Discussed code status and assisted pt with completing MOLST form. Pt would like to be full code with intubation and no feeding tube. MOLST form communicated to physician and placed on chart. SW explained medicare benefit. Pt is hopeful he will be able to return home with soon. SW will follow. DAVID Avalos
[2021-01-28] MEDS: Acetaminophen 500 MG Tablet 1000 MG PO ×2 (15:26→23:02)
[2021-01-28] MEDS: tiZANidine HCl 2 MG Tablet PO (15:26)
[2021-01-28 15:57] VITALS: BP 141/54; PULSE 88; RESP 14; TEMP 36.7; O2SAT 94
[2021-01-28 16:01] LABS: Bedside Glucose 153 mg/dL (70-110)
[2021-01-28] MEDS: Cefdinir 300 MG Capsule PO (17:56)
[2021-01-28] MEDS: Nystatin Powder 15gm Bottle 1 APPLIC TOPICAL (17:56)
[2021-01-28] MEDS: Senna/Docusate Sodium 1 Tablet 2 TABLET PO (17:56)
[2021-01-28] MEDS: Magnesium Chloride 64 MG Delay Rel.Tablet 128 MG PO (17:56)
[2021-01-28] MEDS: Carvedilol 3.125 MG TABLET PO (17:56)
[2021-01-28] MEDS: Gabapentin 100 MG Capsule PO (17:56)
[2021-01-28] MEDS: Menthol/Lanolin/Calamine/Znox 113 GM Tube 1 APPLIC TOPICAL (17:57)
[2021-01-28] MEDS: Insulin Lispro 100 UNIT/ML INSULN.PEN 20 UNIT SC (18:00)
[2021-01-28 22:41] LABS: Bedside Glucose 245 mg/dL (70-110)
[2021-01-28] MEDS: Pravastatin 40 MG Tablet PO (23:02)
[2021-01-28] MEDS: tiZANidine HCl 2 MG Tablet 4 MG PO (23:02)
[2021-01-29 05:44] VITALS: BP 103/52; PULSE 67; RESP 16; TEMP 35.8; O2SAT 100
[2021-01-29] MEDS: Magnesium Chloride 64 MG Delay Rel.Tablet 128 MG PO ×2 (05:47→17:47)
[2021-01-29] MEDS: Levothyroxine 100 MCG Tablet 200 MCG PO (05:47)
[2021-01-29] MEDS: Senna/Docusate Sodium 1 Tablet 2 TABLET PO ×2 (05:47→17:47)
[2021-01-29] MEDS: Acetaminophen 500 MG Tablet 1000 MG PO ×3 (05:47→22:04)
[2021-01-29] MEDS: Pantoprazole Sodium 40 MG Tablet PO (05:48)
[2021-01-29] MEDS: Ondansetron ODT 4 MG Tablet PO (05:48)
[2021-01-29] MEDS: Bumetanide 2 MG Tablet PO (05:48)
[2021-01-29] MEDS: Cefdinir 300 MG Capsule PO ×2 (05:48→17:47)
[2021-01-29] MEDS: Citalopram 10 MG Tablet PO (05:48)
[2021-01-29] MEDS: Clopidogrel Bisulfate 75 MG Tablet PO (05:48)
[2021-01-29] MEDS: tiZANidine HCl 2 MG Tablet PO ×2 (05:48→14:20)
[2021-01-29] MEDS: buPROPion (XL) 150 MG TABLET.XL PO (05:48)
[2021-01-29] MEDS: Nystatin Powder 15gm Bottle 1 APPLIC TOPICAL ×2 (05:51→17:49)
[2021-01-29] MEDS: Menthol/Lanolin/Calamine/Znox 113 GM Tube 1 APPLIC TOPICAL ×2 (05:51→17:48)
[2021-01-29] MEDS: Ammonium Lactate 225 gm Bottle 1 APPLIC TOPICAL (05:57)
[2021-01-29 06:50] LABS: Bedside Glucose 223 mg/dL (70-110)
[2021-01-29] MEDS: Gabapentin 100 MG Capsule PO ×2 (09:07→17:47)
[2021-01-29] MEDS: predniSONE 5 MG Tablet 2.5 MG PO (09:07)
[2021-01-29] MEDS: Aspirin E.C. 81 MG Tablet PO (09:07)
[2021-01-29] MEDS: Insulin Lispro 100 UNIT/ML INSULN.PEN 10 UNIT SC (09:08)
[2021-01-29 09:14] VITALS: BP 93/52; PULSE 64
[2021-01-29 09:15] LABS: Anion Gap 5 (5-15); BUN 35 mg/dL (7-18); BUN/Creat Ratio 31.5 RATIO (10-20); Calcium,Total 8.6 mg/dL (8.5-10.1); Chloride 93 mmol/L (98-107); Creatinine, Serum 1.11 mg/dL (0.70-1.30); EST Glomerular Filtration Rate 69 mL/min (>60); Est Glom Filt Rate - Afr Amer 83 mL/min (>60); Estimated Creatinine Clearance 60.29 ml/min; Glucose 230 mg/dL (74-106); Potassium 4.2 mmol/L (3.5-5.1); Sodium Level 134 mmol/L (136-145)
[2021-01-29 11:11] VITALS: O2SAT 95
[2021-01-29 11:30] LABS: Bedside Glucose 272 mg/dL (70-110)
[2021-01-29] MEDS: Tuberculin,Purif.prot.deriv. 50 TU/ML Vial 0.1 ML ID (12:14)
[2021-01-29 15:26] VITALS: BP 91/42; PULSE 86; RESP 17; TEMP 36.8; O2SAT 94
[2021-01-29 16:30] LABS: Bedside Glucose 347 mg/dL (70-110)
[2021-01-29] MEDS: Insulin Lispro 100 UNIT/ML INSULN.PEN 20 UNIT SC (17:46)
[2021-01-29] MEDS: Juven (unflavored) Packet 1 PACKET PO (17:47)
[2021-01-29 21:46] LABS: Bedside Glucose 335 mg/dL (70-110)
[2021-01-29] MEDS: Pravastatin 40 MG Tablet PO (22:04)
[2021-01-29] MEDS: tiZANidine HCl 2 MG Tablet 4 MG PO (22:05)
[2021-01-30 06:04] LABS: Absolute Lymphocyte Count 0.45 X10^3/uL (0.83-4.51); Absolute Neutrophil Count 5.5 X10^3/uL (2.0-7.7); Basophil# 0.06 X10^3/uL; Basophil% 0.9 % (0-1); Eosinophil# 0.16 X10^3/uL; Eosinophils% 2.3 % (0-5); Hematocrit 28.8 % (40-54); Hemoglobin 9.1 g/dL (13.0-16.5); Lymphocyte # 0.45 X10^3/ul (0.83-4.51); Lymphocyte % 6.5 % (19-41); Mean Corp Hgb Conc 31.6 g/dL (32-36); Mean Corpuscular Hgb 31.2 pg (27.0-32.0); Mean Corpuscular Volume 98.6 fL (80-94); Mean Platelet Vol. 8.9 fl (6.2-12.0); Monocyte# 0.74 X10^3/uL; Monocyte% 10.7 % (0-10); NRBC Flagged by Analyzer 0 % (0-5); Neutrophil # 5.45 X10^3/uL (2.7-7.7); POSITIVE DIFFERENTIAL YES; Platelet Count 243 K/mm3 (150-450); RBC Distribution Width CV 14.4 % (11.6-14.6); RBC Distribution Width SD 51.5 fl (35.1-43.9); Red Blood Count 2.92 M/mm3 (4.6-6.2); White Blood Count 6.9 K/mm3 (4.4-11.0)
[2021-01-30 06:16] LABS: Differential Indicated SCAN CRITERIA MET
[2021-01-30 06:41] LABS: Bedside Glucose 307 mg/dL (70-110)
[2021-01-30 06:51] LABS: Differential Comment SCANNED
[2021-01-30] MEDS: Acetaminophen 500 MG Tablet 1000 MG PO ×3 (06:56→21:18)
[2021-01-30] MEDS: Cefdinir 300 MG Capsule PO ×2 (06:58→17:43)
[2021-01-30] MEDS: Clopidogrel Bisulfate 75 MG Tablet PO (06:58)
[2021-01-30] MEDS: Pantoprazole Sodium 40 MG Tablet PO (06:58)
[2021-01-30] MEDS: Senna/Docusate Sodium 1 Tablet 2 TABLET PO ×2 (06:58→17:43)
[2021-01-30] MEDS: Citalopram 10 MG Tablet PO (06:58)
[2021-01-30] MEDS: Bumetanide 2 MG Tablet PO (06:58)
[2021-01-30] MEDS: Levothyroxine 100 MCG Tablet 200 MCG PO (06:59)
[2021-01-30] MEDS: tiZANidine HCl 2 MG Tablet PO ×2 (06:59→13:28)
[2021-01-30] MEDS: Magnesium Chloride 64 MG Delay Rel.Tablet 128 MG PO ×2 (06:59→17:43)
[2021-01-30] MEDS: buPROPion (XL) 150 MG TABLET.XL PO (06:59)
[2021-01-30] MEDS: Menthol/Lanolin/Calamine/Znox 113 GM Tube 1 APPLIC TOPICAL ×2 (07:00→17:51)
[2021-01-30] MEDS: Nystatin Powder 15gm Bottle 1 APPLIC TOPICAL ×2 (07:00→17:51)
[2021-01-30 07:16] VITALS: BP 109/62; PULSE 88; RESP 16; TEMP 36.2; O2SAT 94
[2021-01-30 07:56] VITALS: O2SAT 98
[2021-01-30] MEDS: Aspirin E.C. 81 MG Tablet PO (08:48)
[2021-01-30] MEDS: Juven (unflavored) Packet 1 PACKET PO ×2 (08:48→17:43)
[2021-01-30] MEDS: Insulin Lispro 100 UNIT/ML INSULN.PEN 10 UNIT SC (08:49)
[2021-01-30] MEDS: predniSONE 5 MG Tablet 2.5 MG PO (08:50)
[2021-01-30] MEDS: Gabapentin 100 MG Capsule PO ×2 (08:50→17:43)
[2021-01-30 09:00] VITALS: BP 98/42; PULSE 75
[2021-01-30 11:36] LABS: Bedside Glucose 447 mg/dL (70-110)
[2021-01-30] MEDS: Insulin Lispro 100 UNIT/ML INSULN.PEN 20 UNIT SC (13:20)
[2021-01-30 14:24] VITALS: BP 97/55; PULSE 77; RESP 16; TEMP 36.4; O2SAT 91
[2021-01-30 14:36] LABS: Bedside Glucose 373 mg/dL (70-110)
[2021-01-30 17:00] LABS: Bedside Glucose 84 mg/dL (70-110)
[2021-01-30] MEDS: Carvedilol 3.125 MG TABLET PO (17:43)
[2021-01-30 19:26] VITALS: BP 104/56; PULSE 68
[2021-01-30] MEDS: Pravastatin 40 MG Tablet PO (21:19)
[2021-01-30] MEDS: tiZANidine HCl 2 MG Tablet 4 MG PO (21:19)
[2021-01-30] MEDS: oxyCODONE 5 MG Tablet PO (21:23)
[2021-01-30 22:00] VITALS: PULSE 73; O2SAT 93
[2021-01-30 22:15] LABS: Bedside Glucose 221 mg/dL (70-110)
[2021-01-30] MEDS: Ondansetron ODT 4 MG Tablet PO (23:13)
[2021-01-30] MEDS: Bisacodyl 10 MG Suppository RC (23:14)
[2021-01-31 05:00] VITALS: BP 128/57; PULSE 83; RESP 18; TEMP 36.4; O2SAT 100
[2021-01-31 06:46] LABS: Bedside Glucose 352 mg/dL (70-110)
[2021-01-31 06:47] VITALS: O2SAT 96
[2021-01-31] MEDS: Ondansetron ODT 4 MG Tablet PO (07:43)
[2021-01-31 10:00] VITALS: PULSE 82; RESP 18; O2SAT 98
[2021-01-31] MEDS: Pantoprazole Sodium 40 MG Tablet PO (10:27)
[2021-01-31] MEDS: Citalopram 10 MG Tablet PO (10:27)
[2021-01-31] MEDS: buPROPion (XL) 150 MG TABLET.XL PO (10:27)
[2021-01-31] MEDS: Bumetanide 2 MG Tablet PO (10:27)
[2021-01-31] MEDS: Acetaminophen 500 MG Tablet 1000 MG PO ×2 (10:27→21:44)
[2021-01-31] MEDS: Levothyroxine 100 MCG Tablet 200 MCG PO (10:27)
[2021-01-31] MEDS: Nystatin Powder 15gm Bottle 1 APPLIC TOPICAL ×2 (10:28→17:19)
[2021-01-31] MEDS: Ammonium Lactate 225 gm Bottle 1 APPLIC TOPICAL (10:28)
[2021-01-31] MEDS: Menthol/Lanolin/Calamine/Znox 113 GM Tube 1 APPLIC TOPICAL ×2 (10:28→17:19)
[2021-01-31] MEDS: Magnesium Chloride 64 MG Delay Rel.Tablet 128 MG PO ×2 (10:28→17:19)
[2021-01-31] MEDS: Cefdinir 300 MG Capsule PO ×2 (10:29→17:19)
[2021-01-31] MEDS: Clopidogrel Bisulfate 75 MG Tablet PO (10:29)
[2021-01-31] MEDS: Carvedilol 3.125 MG TABLET PO ×2 (10:34→17:19)
[2021-01-31] MEDS: Aspirin E.C. 81 MG Tablet PO (10:34)
[2021-01-31] MEDS: Gabapentin 100 MG Capsule PO ×2 (10:35→17:19)
[2021-01-31] MEDS: predniSONE 5 MG Tablet 2.5 MG PO (10:36)
[2021-01-31 11:06] LABS: Bedside Glucose 358 mg/dL (70-110)
[2021-01-31] MEDS: Insulin Lispro 100 UNIT/ML INSULN.PEN 13 UNIT SC ×2 (12:57→17:18)
[2021-01-31] MEDS: tiZANidine HCl 2 MG Tablet PO (13:00)
[2021-01-31 14:21] VITALS: BP 117/69; PULSE 70; RESP 16; TEMP 36.2; O2SAT 97
[2021-01-31 16:26] LABS: Bedside Glucose 407 mg/dL (70-110)
[2021-01-31] MEDS: Insulin Lispro 100 UNIT/ML INSULN.PEN 10 UNIT SC (17:18)
[2021-01-31] MEDS: Senna/Docusate Sodium 1 Tablet 2 TABLET PO (17:18)
[2021-01-31] MEDS: Juven (unflavored) Packet 1 PACKET PO (17:19)
[2021-01-31 21:31] LABS: Bedside Glucose 212 mg/dL (70-110)
[2021-01-31] MEDS: tiZANidine HCl 2 MG Tablet 4 MG PO (21:44)
[2021-01-31] MEDS: Pravastatin 40 MG Tablet PO (21:44)
[2021-02-01 05:32] LABS: Absolute Lymphocyte Count 0.72 X10^3/uL (0.83-4.51); Absolute Neutrophil Count 4.2 X10^3/uL (2.0-7.7); Basophil# 0.03 X10^3/uL; Basophil% 0.5 % (0-1); Eosinophil# 0.07 X10^3/uL; Eosinophils% 1.2 % (0-5); Hematocrit 28.5 % (40-54); Hemoglobin 9.1 g/dL (13.0-16.5); Lymphocyte # 0.72 X10^3/ul (0.83-4.51); Lymphocyte % 12.1 % (19-41); Mean Corp Hgb Conc 31.9 g/dL (32-36); Mean Corpuscular Hgb 31.5 pg (27.0-32.0); Mean Corpuscular Volume 98.6 fL (80-94); Mean Platelet Vol. 8.8 fl (6.2-12.0); Monocyte# 0.91 X10^3/uL; Monocyte% 15.3 % (0-10); NRBC Flagged by Analyzer 0 % (0-5); Neutrophil # 4.19 X10^3/uL (2.7-7.7); Neutrophil % 70.4 % (47-70); Platelet Count 233 K/mm3 (150-450); RBC Distribution Width CV 14.8 % (11.6-14.6); RBC Distribution Width SD 53.1 fl (35.1-43.9); Red Blood Count 2.89 M/mm3 (4.6-6.2)
[2021-02-01 06:23] VITALS: BP 103/50; PULSE 68; RESP 16; TEMP 36.5; O2SAT 93
[2021-02-01] MEDS: Menthol/Lanolin/Calamine/Znox 113 GM Tube 1 APPLIC TOPICAL ×2 (06:26→17:48)
[2021-02-01] MEDS: Bumetanide 2 MG Tablet PO (06:26)
[2021-02-01] MEDS: Magnesium Chloride 64 MG Delay Rel.Tablet 128 MG PO ×2 (06:27→17:46)
[2021-02-01] MEDS: Clopidogrel Bisulfate 75 MG Tablet PO (06:27)
[2021-02-01] MEDS: Cefdinir 300 MG Capsule PO ×2 (06:27→17:48)
[2021-02-01] MEDS: Citalopram 10 MG Tablet PO (06:27)
[2021-02-01] MEDS: Nystatin Powder 15gm Bottle 1 APPLIC TOPICAL (06:27)
[2021-02-01] MEDS: Ammonium Lactate 225 gm Bottle 1 APPLIC TOPICAL (06:28)
[2021-02-01] MEDS: Acetaminophen 500 MG Tablet 1000 MG PO ×3 (06:28→22:25)
[2021-02-01] MEDS: buPROPion (XL) 150 MG TABLET.XL PO (06:28)
[2021-02-01] MEDS: Pantoprazole Sodium 40 MG Tablet PO (06:28)
[2021-02-01] MEDS: Senna/Docusate Sodium 1 Tablet 2 TABLET PO ×2 (06:28→17:48)
[2021-02-01] MEDS: Levothyroxine 100 MCG Tablet 200 MCG PO (06:28)
[2021-02-01 06:30] LABS: Bedside Glucose 47 mg/dL (70-110)
[2021-02-01] MEDS: tiZANidine HCl 2 MG Tablet PO ×2 (06:34→13:37)
[2021-02-01 06:45] LABS: Bedside Glucose 72 mg/dL (70-110)
[2021-02-01] MEDS: Iron Polysaccharide Complex 150 MG CAPSULE PO (09:15)
[2021-02-01] MEDS: Juven (unflavored) Packet 1 PACKET PO ×2 (09:15→17:47)
[2021-02-01] MEDS: Aspirin E.C. 81 MG Tablet PO (09:15)
[2021-02-01] MEDS: Gabapentin 100 MG Capsule PO ×2 (09:15→17:47)
[2021-02-01] MEDS: predniSONE 5 MG Tablet 2.5 MG PO (09:16)
[2021-02-01 09:24] VITALS: BP 97/51; PULSE 72
--- NOTE | 2021-02-01 10:43 | NURSING ---
pt requesting to have the times changed on his zanaflex. rn aware.
[2021-02-01 11:00] LABS: Bedside Glucose 290 mg/dL (70-110)
[2021-02-01] MEDS: Insulin Lispro 100 UNIT/ML INSULN.PEN 13 UNIT SC ×2 (12:19→17:45)
[2021-02-01 14:00] VITALS: BP 155/47; PULSE 78; RESP 18; TEMP 36.5; O2SAT 94
--- NOTE | 2021-02-01 15:45 | PHA.CONS_ITS ---
Progress Note - Pharmacy Subjective: TCU Admission Objective: Allergies amiodarone Allergy (Severe, Verified 12/31/20 09:14) pulmonary fibrosis sotalol Allergy (Severe, Verified 12/31/20 09:14) intolerant levofloxacin [From Levaquin] Allergy (Verified 12/31/20 09:14) Pain in joints LEG CRAMPING gabapentin Adverse Reaction (Verified 12/31/20 09:14) Diarrhea latex Adverse Reaction (Verified 12/31/20 09:14) Rash Current Medications Generic Name Dose Route Start Last Admin Trade Name Freq PRN Reason Stop Dose Admin Acetaminophen 1,000 mg 01/28/21 14:00 02/01/21 13:37 Acetaminophen 500 Mg Tablet PO 1,000 mg Q8 RAYMON Administration Aspirin 81 mg 01/29/21 08:00 02/01/21 09:15 Aspirin E.C. 81 Mg Tablet PO 81 mg DAILYCM [facility] Administration Bisacodyl 10 mg 01/28/21 11:52 01/30/21 23:14 Bisacodyl 10 Mg Suppository RC 10 mg .PRN X 1 PRN Administration Constipation Bumetanide 2 mg 01/29/21 06:00 02/01/21 06:26 Bumetanide 2 Mg Tablet PO 2 mg DAILY RAYMON Administration Bupropion HCl 150 mg 01/29/21 06:00 02/01/21 06:28 Bupropion (Xl) 150 Mg Tablet.Xl PO 150 mg DAILY RAYMON Administration Calamine/Phenol 1 applic 01/28/21 18:00 02/01/21 06:26 Menthol/Lanolin/Calamine/Znox 113 Gm Tube TOPICAL 1 applic BID RAYMON Administration Protocol Carvedilol 3.125 mg 01/28/21 17:00 02/01/21 09:15 Car[facility]il[facility] 3.125 Mg [facility] Cefdinir 300 mg 01/28/21 18:00 02/01/21 06:27 Cefdinir 300 Mg Capsule PO 02/04/21 18:01 300 mg BID RAYMON Administration Citalopram Hydrobromide 10 mg 01/29/21 06:00 02/01/21 06:27 Citalopram 10 Mg Tablet PO 10 mg DAILY RAYMON Administration Clopidogrel Bisulfate 75 mg 01/29/21 06:00 02/01/21 06:27 Clopidogrel Bisulfate 75 Mg Tablet PO 75 mg DAILY RAYMON Administration Gabapentin 100 mg 01/28/21 17:00 02/01/21 09:15 Gabapentin 100 Mg Capsule PO 100 mg BIDCM RAYMON Administration Glucagon 1 mg 01/28/21 11:52 Glucagon 1 Mg/Ml Syringe IM .X1 PRN Hypoglycemia Glucose 15 gm 01/28/21 11:52 Glucose Oral Gel 15 Gm Tube PO PRN PRN Hypoglycemia Insulin Glargine 40 units 01/31/21 22:00 01/31/21 21:42 Insulin Glargine 100 Units/Ml Pen SC 20 units QHS RAYMON Administration Insulin Human Lispro 13 unit 01/31/21 11:45 02/01/21 12:19 Insulin Lispro 100 Unit/Ml Insuln.Pen SC 13 u TIDAC [facility] Administration Ipratropium Tyler 1 spray 01/28/21 11:52 Ipratropium Tyler 0.06% Nasal Shelly NASAL DAILY PRN PRN Runny Nose L-Arginine/L-Glutamine/Calcium HMB 1 packet 01/29/21 17:00 02/01/21 09:15 Alok (Unflavored) Packet PO 1 packet BIDCM RAYMON Administration Lactic Acid 1 applic 01/29/21 06:00 02/01/21 06:28 Ammonium Lactate 225 Gm Bottle TOPICAL 1 applic DAILY [facility] Administration Protocol Levothyroxine Sodium 200 mcg 01/29/21 06:00 02/01/21 06:28 Levothyroxine 100 Mcg Tablet PO 200 mcg DAILY RAYMON Administration Magnesium Chloride 128 mg 01/28/21 18:00 02/01/21 06:27 Magnesium Chloride 64 Mg Delay Rel.Tablet PO 128 mg BID RAYMON Administration Magnesium Hydroxide 30 ml 01/28/21 11:52 Magnesium Hydroxide 30 Ml Udc PO .PRN X 1 PRN Constipation Nystatin 1 applic 01/28/21 18:00 02/01/21 06:27 Nystatin Powder 15gm Bottle TOPICAL 1 applic BID [facility] Administration Protocol Ondansetron HCl 4 mg 01/29/21 12:48 01/31/21 07:43 Ondansetron Odt 4 Mg Tablet PO 4 mg Q8H PRN Administration NAUSEA Oxycodone HCl 5 mg 01/28/21 11:52 01/30/21 21:23 Oxycodone 5 Mg Tablet PO 5 mg Q4H PRN PRN Administration Pain Score 6-10 Pantoprazole Sodium 40 mg 01/29/21 06:00 02/01/21 06:28 Pantoprazole Sodium 40 Mg Tablet PO 40 mg DAILY RAYMON Administration Polysaccharide Iron Complex 150 mg 01/31/21 08:00 02/01/21 09:15 Iron Polysaccharide Complex 150 Mg Capsule PO 150 mg DAILYCM [facility] Administration Pravastatin Sodium 40 mg 01/28/21 22:00 01/31/21 21:44 Pravastatin 40 Mg Tablet PO 40 mg QHS RAYMON Administration Prednisone 2.5 mg 01/29/21 08:00 02/01/21 09:16 Prednisone 5 Mg Tablet PO 2.5 mg DAILYCM [facility]MON Administration Saliva Substitute 15 ml 01/28/21 11:52 Saliva Substitute 237 Ml Bottle MUCOUS MEM 5X/DAY PRN Dry Mouth Senna/Docusate Sodium 2 tablet 01/28/21 18:00 02/01/21 06:28 Senna/Docusate Sodium 1 Tablet PO 2 tablet BID RAYMON Administration Tizanidine HCl 2 mg 01/28/21 14:00 02/01/21 13:37 Tizanidine Hcl 2 Mg Tablet PO 2 mg 0600,1400 RAYMON Administration Tizanidine HCl 4 mg 01/28/21 22:00 01/31/21 21:44 Tizanidine Hcl 2 Mg Tablet PO 4 mg QHS RAYMON Administration Tuberculin PPD 0.1 ml 02/05/21 10:00 Tuberculin,Purif.Prot.Deriv. 50 Tu/Ml Vial ID 02/05/21 10:01 X1 ONE Problem List (Last Reviewed 01/28/21 @ 13:[address] Jonh Bond MD) Hyperlipidemia (Acute) Gastroesophageal reflux disease (Acute) Hypothyroidism (Acute) Peripheral arterial occlusive disease (Acute) Obstructive sleep apnea (Acute) Glaucoma (Acute) Coronary artery disease (Acute) Chronic obstructive pulmonary disease (Chronic) Diabetes mellitus (Acute) Urinary tract infection (Acute) Acute on chronic systolic congestive heart failure (Chronic) Orthostatic hypotension (Acute) Acute kidney injury (Acute) Below-knee amputation of right lower extremity (Acute) Debility (Acute) Vital Signs Temp Pulse Resp BP Pulse Ox 97.7 F L 78 18 155/47 H 94 02/01/21 14:00 02/01/21 14:00 02/01/21 14:00 02/01/21 14:00 02/01/21 14:00 Oxygen Flow Rate (L/min) 2 Oxygen Delivery Method Room Air Weight: 77.9 kg Body Mass Index (BMI) 24.0 Sodium 134 mmol/L (136-145) L 01/29/21 07:47 Potassium 4.2 mmol/L (3.5-5.1) 01/29/21 07:47 Chloride 93 mmol/L (98-107) L 01/29/21 07:47 Carbon Dioxide 36.0 mmol/L (21.0-32.0) H 01/29/21 07:47 Anion Gap 5 (5-15) 01/29/21 07:47 BUN 35 mg/dL (7-18) H 01/29/21 07:47 Creatinine 1.11 mg/dL (0.70-1.30) 01/29/21 07:47 Est GFR (MDRD) Af Amer 83 mL/min (>60) 01/29/21 07:47 Est GFR (MDRD) Non-Af 69 mL/min (>60) 01/29/21 07:47 BUN/Creatinine Ratio 31.5 RATIO (10-20) H 01/29/21 07:47 Glucose 230 mg/dL (74-106) H 01/29/21 07:47 Assessment/Plan: 1. Pain: acetaminophen 1000mg PO Q8 and oxycodone 5mg PO Q4H PRN pain 6-10. Please continue to monitor for increased pain, PRN usage, constipation and respiratory depression. 2. UTI (E. coli): cefdinir 300mg PO BID thru 02/04/21. Please continue to monitor urine culture, S/S of infection, renal function and diarrhea. 3. CAD/CHF: carvedilol 3.125mg PO BIDCM, clopidogrel 75mg PO daily, aspirin 81mg PO DAILYCM and bumetanide 2mg PO daily. Please continue to monitor BP (last 155/47), HR (last 78), hemoglobin (last 9.1 g/dL), S/S of bleeding, potassium (last 4.2mmol/L) and swelling. 4. Neuropathic pain: gabapentin 100mg PO BIDCM. Please continue to monitor for neuropathic pain and renal function. 5. Diabetes mellitus II: insulin glargine 40units SC QHS, insulin lispro 13units SC TIDCM, glucose oral gel 15gm x1 PRN hypoglycemia and glucagon IM x1 PRN hypoglycemia. Please continue to monitor for S/S of hypoglycemia, hemoglobin A1c (last 6.9% 12/01/20) and glucose (last 290 mg/dL). 6. Hypothyroidism: levothyroxine 200mcg PO daily. Please continue to monitor TSH (last 01/10/21) and S/S of hypo/hyperthyroidism. 7. GERD: pantoprazole 40mg PO daily. Please continue to monitor for S/S of GERD and diarrhea. *8. Hyperlipidemia: pravastatin 40mg PO QHS. Please consider ordering a lipid panel if clinically appropriate. Patient does not have one in chart. Thanks. Please continue to monitor for muscle pain. 9. Auto-immune anemia: prednisone 2.5mg PO DAILYCM and Ferrex 150mg PO DAILYCM. Please continue to monitor glucose, S/S of infection, hemoglobin, constipation and for dark stools. 10. Muscle spasm: tizanidine 2mg PO 0600,1400 and 4mg PO QHS. Please continue to monitor for asthenia, hypotension and urine retention. Medication is on BEERs list. 11. Nausea: ondansetron 4mg PO Q8H PRN nausea. Please continue to monitor for nausea and PRN usage. 12. Hypomagnesemia: magnesium chloride 128mg PO BID. Please continue to monitor magnesium (last 2.2mg/dL) and for diarrhea. 13. Allergic rhinitis: ipratropium 0.06% nasal spray 1 spray nasal daily PRN runny nose. Please continue to monitor for PRN usage. 14. Dry mouth: Saliva substitute 15mL MM 5x/day PRN dry mouth. Please continue to monitor for dry mouth. Psychotropic Medications: 1. Depression: citalopram 10mg PO daily and bupropion XL 150mg PO daily. Please see physician note regarding GDR. Unnecessary Medications: None Bowel Regimen: senna/docusate 2T PO BID, bisacodyl 10mg RC x1 PRN constipation a nd MOM 30mL PO x1 PRN constipation. Date of Note:: 02/01/21
[2021-02-01 16:16] LABS: Bedside Glucose 305 mg/dL (70-110)
[2021-02-01] MEDS: Carvedilol 3.125 MG TABLET PO (17:47)
[2021-02-01] MEDS: Magnesium Hydroxide 30 ML UDC PO (17:53)
[2021-02-01 21:36] LABS: Bedside Glucose 190 mg/dL (70-110)
[2021-02-01] MEDS: tiZANidine HCl 2 MG Tablet 4 MG PO (22:24)
[2021-02-01] MEDS: Pravastatin 40 MG Tablet PO (22:25)
--- NOTE | 2021-02-01 23:18 | NURSING ---
When doing dressing change this pm I noticed that there was a small amount of drainage on old dressing. Pt said that this was new for him and he would like a message passed along that he wants to see Dr. Lopez. Message put on green board for doctor to address in am.
[2021-02-02 06:02] VITALS: BP 104/54; PULSE 74; RESP 18; TEMP 36.2; O2SAT 100
[2021-02-02] MEDS: Clopidogrel Bisulfate 75 MG Tablet PO (06:10)
[2021-02-02] MEDS: Pantoprazole Sodium 40 MG Tablet PO (06:10)
[2021-02-02] MEDS: Cefdinir 300 MG Capsule PO ×2 (06:10→17:27)
[2021-02-02] MEDS: Citalopram 10 MG Tablet PO (06:10)
[2021-02-02] MEDS: Bumetanide 2 MG Tablet PO (06:10)
[2021-02-02] MEDS: Magnesium Chloride 64 MG Delay Rel.Tablet 128 MG PO ×2 (06:10→17:27)
[2021-02-02] MEDS: Menthol/Lanolin/Calamine/Znox 113 GM Tube 1 APPLIC TOPICAL ×2 (06:10→17:28)
[2021-02-02] MEDS: Senna/Docusate Sodium 1 Tablet 2 TABLET PO ×2 (06:11→17:27)
[2021-02-02] MEDS: Nystatin Powder 15gm Bottle 1 APPLIC TOPICAL ×2 (06:11→17:28)
[2021-02-02] MEDS: buPROPion (XL) 150 MG TABLET.XL PO (06:11)
[2021-02-02] MEDS: Acetaminophen 500 MG Tablet 1000 MG PO ×3 (06:11→21:11)
[2021-02-02] MEDS: Levothyroxine 100 MCG Tablet 200 MCG PO (06:11)
[2021-02-02] MEDS: Ammonium Lactate 225 gm Bottle 1 APPLIC TOPICAL (06:12)
[2021-02-02 06:36] LABS: Bedside Glucose 203 mg/dL (70-110)
[2021-02-02] MEDS: Insulin Lispro 100 UNIT/ML INSULN.PEN 13 UNIT SC ×2 (08:48→11:45)
[2021-02-02] MEDS: predniSONE 5 MG Tablet 2.5 MG PO (08:51)
[2021-02-02] MEDS: Iron Polysaccharide Complex 150 MG CAPSULE PO (08:51)
[2021-02-02] MEDS: Aspirin E.C. 81 MG Tablet PO (08:51)
[2021-02-02] MEDS: Gabapentin 100 MG Capsule PO ×2 (08:51→17:27)
[2021-02-02] MEDS: Magnesium Hydroxide 30 ML UDC PO (08:54)
[2021-02-02] MEDS: Carvedilol 3.125 MG TABLET PO (08:56)
[2021-02-02 08:57] VITALS: BP 110/61; PULSE 76
[2021-02-02 11:16] LABS: Bedside Glucose 321 mg/dL (70-110)
--- NOTE | 2021-02-02 11:49 | CASEMGMT ---
Social Work Plan of Care meeting held with pt and pt in attendance. Pt is receiving PT/OT/ST and progressing well. Pt and both feel pt is progressing and will be able to return home with as primary caregiver. Pt would benefit from further therapy and no discharge date set at this time. Pt will need home health services PT/OT/SN/[facility] upon return home and pt is agreeable and would like to use [facility] if possible as they have utilized this company in the past and are happy with their services. Pt will need a sliding board, drop arm commode and gait belt upon return home and SW will assist pt in obtaining this DME. Continue with current treatment plan on TCU at this time. DAVID Avalos
[2021-02-02] MEDS: Bisacodyl 10 MG Suppository RC (13:10)
[2021-02-02] MEDS: tiZANidine HCl 2 MG Tablet PO (13:11)
--- NOTE | 2021-02-02 13:55 | PCM.PN.SRG ---
Subjective Subjective Postop #23 Patient sitting in bed. Patient voices concerns about seeing a couple drops of blood last night when dressing was changed. Objective Data Objective Data Vital Signs: Vital Signs Temp Pulse Resp BP Pulse Ox 97.1 F L 76 18 110/61 100 02/02/21 06:02 02/02/21 08:57 02/02/21 06:02 02/02/21 08:57 02/02/21 06:02 Oxygen Flow Rate (L/min) 2 Oxygen Delivery Method Nasal Cannula Weight: 164 lb 1 oz Body Mass Index (BMI) 24.0 Intake & Output: Intake and Output for Last 24 Hours 01/31/21 02/01/21 02/02/21 23:59 23:59 23:59 Intake Total 480 / 480 820 / 820 360 / 360 Output Total 700 / 700 550 / 550 Balance 480 / 480 120 / 120 -190 / -190 Medical Nutrition Assessment Dietitian: Nutrition Therapy Diagnosis Start: 01/29/21 12:39 Freq: Status: Active Protocol: Document 01/29/21 13:07 CHARLIE (Rec: 01/29/21 13:07 CHARLIE [id number]) Nutrition Malnutrition Evidence of Malnutrition Exists No Intake Problem Increased Nutrient Needs (specify) Etiology protein related to R BKA Signs/Symptoms as evidenced by need for additional protein to help w/ R stump healing Status Active Problem Clinical Problem Altered Nutrient-Related Laboratory Values Etiology related to diabetes and steroid use Signs/Symptoms as evidenced by gluc 230 Status Active Problem Recommendation Dietitian Recommendations/Changes Will change diet to Consistent CHO/Cardiac diet w/ 1500 FR/ day - easy to chew - SMALL portions Will provide magic cup w/ all meals per res request Lab / Micro Data Result Diagrams: 02/01/21 05:09 01/29/21 07:47 Labs: Laboratory Results - last 24 hr 02/01/21 15:58: POC Glucose 305 H 02/01/21 21:27: POC Glucose 190 H 02/02/21 06:16: POC Glucose 203 H 02/02/21 11:11: POC Glucose 321 H Micro: Microbiology 01/29/21 11:20 Mucosa - Nose SARS-CoV-2 Antigen (Rapid) - Final Physical Exam Const oriented x3 and no apparent distress Resp normal respiratory effort Cardio regular rate GI soft to palpation and non-tender Extremity Extremity Narrative: Bilateral BKA. Right BKA incision is dry and intact. Sutures are dry and intact. There is some scabbing present on the incision line. No active drainage. Dressing reapplied with Kerlix and JIGAR wrap for compression. Charges/Coding Procedures Integumentary [id number]: [id number] Global Visit
--- NOTE | 2021-02-02 14:53 | CHAPLAIN ---
Type of Pastoral Visit ___ Initial Visit _x__ Follow-up Visit ___ On-call Visit ___ General Patient Visit ___ Spiritual Assessment ___ Family Conference ___ Bereavement ___ Rapid Response ___ Code Blue ___ Other (describe below) Pastoral Care Referral From _x__ Patient ___ Family ___ Nurse ___ Physician ___ Software Programmer ___ Lace Pinner ___ Other (describe below) Sacrament/Intervention _x__ Active listening ___ Anointing ___ Zoroastrian ___ Bereavement ___ Communion _x__ Laxmi exploration ___ ___ Life review _x__ Prayer ___ Reconciliation ___ Sacrament of Sick _x__ Supportive presence ___ Wedding ___ Other (describe below) Pastoral Comments
--- NOTE | 2021-02-02 15:15 | NURSING ---
wound photo: right BKA
[2021-02-02 15:45] VITALS: BP 88/37; PULSE 65; RESP 14; TEMP 36.3; O2SAT 97
[2021-02-02 16:50] LABS: Bedside Glucose 165 mg/dL (70-110)
[2021-02-02] MEDS: Magnesium Citrate 300 ML PO (17:40)
--- NOTE | 2021-02-02 18:39 | NURSING ---
pt c/o constipation, milk of mag, senna s, & dulcolax suppos given without results, new order mag citrate. awaiting results.
[2021-02-02] MEDS: tiZANidine HCl 2 MG Tablet 4 MG PO (21:11)
[2021-02-02] MEDS: Pravastatin 40 MG Tablet PO (21:11)
[2021-02-02 21:55] LABS: Bedside Glucose 286 mg/dL (70-110)
[2021-02-03 05:00] VITALS: BP 99/49; PULSE 94; RESP 18; TEMP 35.7; O2SAT 95
[2021-02-03] MEDS: Citalopram 10 MG Tablet PO (06:10)
[2021-02-03] MEDS: Bumetanide 2 MG Tablet PO (06:10)
[2021-02-03] MEDS: Menthol/Lanolin/Calamine/Znox 113 GM Tube 1 APPLIC TOPICAL ×2 (06:10→17:12)
[2021-02-03] MEDS: Ammonium Lactate 225 gm Bottle 1 APPLIC TOPICAL (06:11)
[2021-02-03] MEDS: Cefdinir 300 MG Capsule PO ×2 (06:12→17:12)
[2021-02-03] MEDS: Nystatin Powder 15gm Bottle 1 APPLIC TOPICAL ×2 (06:12→17:13)
[2021-02-03] MEDS: Magnesium Chloride 64 MG Delay Rel.Tablet 128 MG PO ×2 (06:12→17:12)
[2021-02-03] MEDS: Pantoprazole Sodium 40 MG Tablet PO (06:13)
[2021-02-03] MEDS: Senna/Docusate Sodium 1 Tablet 2 TABLET PO (06:13)
[2021-02-03] MEDS: Clopidogrel Bisulfate 75 MG Tablet PO (06:13)
[2021-02-03] MEDS: Levothyroxine 100 MCG Tablet 200 MCG PO (06:13)
[2021-02-03] MEDS: Acetaminophen 500 MG Tablet 1000 MG PO ×3 (06:13→22:11)
[2021-02-03] MEDS: buPROPion (XL) 150 MG TABLET.XL PO (06:14)
[2021-02-03 06:26] LABS: Bedside Glucose 276 mg/dL (70-110)
[2021-02-03] MEDS: Insulin Lispro 100 UNIT/ML INSULN.PEN 13 UNIT SC ×2 (08:32→11:46)
[2021-02-03] MEDS: Aspirin E.C. 81 MG Tablet PO (08:33)
[2021-02-03] MEDS: predniSONE 5 MG Tablet 2.5 MG PO (08:33)
[2021-02-03] MEDS: Iron Polysaccharide Complex 150 MG CAPSULE PO (08:33)
[2021-02-03] MEDS: Gabapentin 100 MG Capsule PO ×2 (08:33→17:12)
[2021-02-03 08:39] VITALS: BP 113/47; PULSE 81
[2021-02-03 10:00] VITALS: PULSE 79; RESP 16; O2SAT 91
[2021-02-03] MEDS: oxyCODONE 5 MG Tablet PO ×2 (10:00→22:14)
[2021-02-03 10:50] LABS: Bedside Glucose 310 mg/dL (70-110)
--- NOTE | 2021-02-03 12:33 | MDS.RN ---
pain interview for belinda 02/04/21
[2021-02-03] MEDS: tiZANidine HCl 2 MG Tablet PO (14:29)
[2021-02-03 14:42] VITALS: BP 120/55; PULSE 86; RESP 16; TEMP 36.3; O2SAT 94
[2021-02-03] MEDS: Carvedilol 3.125 MG TABLET PO (17:12)
[2021-02-03 19:11] LABS: Bedside Glucose 82 mg/dL (70-110)
[2021-02-03 22:01] LABS: Bedside Glucose 308 mg/dL (70-110)
[2021-02-03] MEDS: tiZANidine HCl 2 MG Tablet 4 MG PO (22:11)
[2021-02-03] MEDS: Pravastatin 40 MG Tablet PO (22:12)
[2021-02-04 05:29] VITALS: BP 101/49; PULSE 72; RESP 16; TEMP 36.3; O2SAT 95
[2021-02-04] MEDS: Acetaminophen 500 MG Tablet 1000 MG PO ×3 (05:32→21:34)
[2021-02-04] MEDS: Senna/Docusate Sodium 1 Tablet 2 TABLET PO ×2 (05:32→17:56)
[2021-02-04] MEDS: Clopidogrel Bisulfate 75 MG Tablet PO (05:33)
[2021-02-04] MEDS: Magnesium Chloride 64 MG Delay Rel.Tablet 128 MG PO ×2 (05:33→17:55)
[2021-02-04] MEDS: Citalopram 10 MG Tablet PO (05:33)
[2021-02-04] MEDS: Pantoprazole Sodium 40 MG Tablet PO (05:33)
[2021-02-04] MEDS: Cefdinir 300 MG Capsule PO ×2 (05:33→17:56)
[2021-02-04] MEDS: Levothyroxine 100 MCG Tablet 200 MCG PO (05:33)
[2021-02-04] MEDS: buPROPion (XL) 150 MG TABLET.XL PO (05:33)
[2021-02-04] MEDS: Ammonium Lactate 225 gm Bottle 1 APPLIC TOPICAL (05:34)
[2021-02-04] MEDS: Nystatin Powder 15gm Bottle 1 APPLIC TOPICAL ×2 (05:34→17:54)
[2021-02-04] MEDS: Menthol/Lanolin/Calamine/Znox 113 GM Tube 1 APPLIC TOPICAL ×2 (05:34→17:54)
[2021-02-04] MEDS: Bumetanide 2 MG Tablet PO (05:34)
[2021-02-04 06:21] LABS: Bedside Glucose 146 mg/dL (70-110)
[2021-02-04 08:24] VITALS: O2SAT 95
[2021-02-04] MEDS: Insulin Lispro 100 UNIT/ML INSULN.PEN 13 UNIT SC ×2 (09:16→12:46)
[2021-02-04] MEDS: Carvedilol 3.125 MG TABLET PO ×2 (09:18→17:55)
[2021-02-04] MEDS: Aspirin E.C. 81 MG Tablet PO (09:19)
[2021-02-04] MEDS: Iron Polysaccharide Complex 150 MG CAPSULE PO (09:19)
[2021-02-04] MEDS: Gabapentin 100 MG Capsule PO ×2 (09:19→17:55)
[2021-02-04] MEDS: predniSONE 5 MG Tablet 2.5 MG PO (09:19)
[2021-02-04 09:23] VITALS: BP 117/55; PULSE 82
[2021-02-04 11:10] LABS: Bedside Glucose 188 mg/dL (70-110)
--- NOTE | 2021-02-04 12:53 | NURSING ---
Aminah Leary notifed and she said it is ok to shower resident. Do not need to cover stump as water will be good to clean the stump incision.
--- NOTE | 2021-02-04 13:45 | CASEMGMT ---
Social Work SW spoke with therapy and pt would benefit from deluxe drop arm bariatric commode as this works best for pt with toilet transfers. SW spoke with [facility] and they do have this in stock. Order and therapy notes faxed to [facility] with request to deliver item to pt home. SW informed pt about commode and that [facility] does not have sliding boards nor gait belts and they are not covered by insurance. Pt to pick up driver these items at [facility]. Pt will speak with pt and set a discharge date. Their son will be coming to stay with them at time of discharge for a few days for transition home. Pt and requesting [facility] PT/OT/SN/IS TECHNICIAN. SW to continue to follow. DAVID Avalos
[2021-02-04] MEDS: tiZANidine HCl 2 MG Tablet PO (14:15)
[2021-02-04 14:42] VITALS: BP 118/70; PULSE 82; RESP 16; TEMP 36.3; O2SAT 97
[2021-02-04 17:17] LABS: Glucose 49 mg/dL (74-106)
[2021-02-04 17:21] LABS: Bedside Glucose 110 mg/dL (70-110)
[2021-02-04] MEDS: tiZANidine HCl 2 MG Tablet 4 MG PO (20:03)
[2021-02-04] MEDS: Pravastatin 40 MG Tablet PO (21:34)
[2021-02-04 21:35] LABS: Bedside Glucose 339 mg/dL (70-110)
[2021-02-05 06:21] LABS: Bedside Glucose 175 mg/dL (70-110)
[2021-02-05 06:35] VITALS: BP 117/60; PULSE 83; RESP 18; TEMP 36.3; O2SAT 100
[2021-02-05] MEDS: Menthol/Lanolin/Calamine/Znox 113 GM Tube 1 APPLIC TOPICAL ×2 (06:38→17:04)
[2021-02-05] MEDS: Ammonium Lactate 225 gm Bottle 1 APPLIC TOPICAL (06:39)
[2021-02-05] MEDS: Clopidogrel Bisulfate 75 MG Tablet PO (06:39)
[2021-02-05] MEDS: Senna/Docusate Sodium 1 Tablet 2 TABLET PO ×2 (06:39→17:04)
[2021-02-05] MEDS: Magnesium Chloride 64 MG Delay Rel.Tablet 128 MG PO ×2 (06:39→17:04)
[2021-02-05] MEDS: Nystatin Powder 15gm Bottle 1 APPLIC TOPICAL ×2 (06:39→17:05)
[2021-02-05] MEDS: Pantoprazole Sodium 40 MG Tablet PO (06:39)
[2021-02-05] MEDS: Citalopram 10 MG Tablet PO (06:39)
[2021-02-05] MEDS: buPROPion (XL) 150 MG TABLET.XL PO (06:40)
[2021-02-05] MEDS: Levothyroxine 100 MCG Tablet 200 MCG PO (06:40)
[2021-02-05] MEDS: Acetaminophen 500 MG Tablet 1000 MG PO ×3 (06:40→22:54)
[2021-02-05 06:54] LABS: Absolute Lymphocyte Count 0.87 X10^3/uL (0.83-4.51); Absolute Neutrophil Count 5.2 X10^3/uL (2.0-7.7); Basophil# 0.07 X10^3/uL; Eosinophil# 0.26 X10^3/uL; Eosinophils% 3.6 % (0-5); Hematocrit 33.8 % (40-54); Hemoglobin 10.7 g/dL (13.0-16.5); Lymphocyte # 0.87 X10^3/ul (0.83-4.51); Mean Corp Hgb Conc 31.7 g/dL (32-36); Mean Corpuscular Hgb 31.8 pg (27.0-32.0); Mean Corpuscular Volume 100.3 fL (80-94); Mean Platelet Vol. 8.6 fl (6.2-12.0); Monocyte% 11.1 % (0-10); NRBC Flagged by Analyzer 0 % (0-5); Neutrophil # 5.19 X10^3/uL (2.7-7.7); Neutrophil % 71.7 % (47-70); Platelet Count 262 K/mm3 (150-450); RBC Distribution Width CV 14.6 % (11.6-14.6); RBC Distribution Width SD 52.1 fl (35.1-43.9); Red Blood Count 3.37 M/mm3 (4.6-6.2); White Blood Count 7.2 K/mm3 (4.4-11.0)
[2021-02-05 07:17] LABS: Anion Gap 3 (5-15); BUN 38 mg/dL (7-18); BUN/Creat Ratio 35.8 RATIO (10-20); Calcium,Total 8.9 mg/dL (8.5-10.1); Chloride 96 mmol/L (98-107); Creatinine, Serum 1.06 mg/dL (0.70-1.30); EST Glomerular Filtration Rate 73 mL/min (>60); Est Glom Filt Rate - Afr Amer 88 mL/min (>60); Estimated Creatinine Clearance 63.13 ml/min; Glucose 154 mg/dL (74-106); Potassium 4.5 mmol/L (3.5-5.1); Sodium Level 137 mmol/L (136-145)
[2021-02-05 08:04] VITALS: O2SAT 94
[2021-02-05] MEDS: Insulin Lispro 100 UNIT/ML INSULN.PEN SC ×3 (08:54→18:30)
[2021-02-05] MEDS: Carvedilol 3.125 MG TABLET PO ×2 (08:55→17:03)
[2021-02-05] MEDS: Aspirin E.C. 81 MG Tablet PO (08:55)
[2021-02-05] MEDS: predniSONE 5 MG Tablet 2.5 MG PO (08:56)
[2021-02-05] MEDS: Gabapentin 100 MG Capsule PO ×2 (08:56→17:04)
[2021-02-05] MEDS: Iron Polysaccharide Complex 150 MG CAPSULE PO (08:56)
[2021-02-05] MEDS: Tuberculin,Purif.prot.deriv. 50 TU/ML Vial 0.1 ML ID (08:58)
[2021-02-05] MEDS: oxyCODONE 5 MG Tablet PO ×2 (09:04→17:56)
[2021-02-05 11:10] LABS: Bedside Glucose 68 mg/dL (70-110)
[2021-02-05 11:10] LABS: Bedside Glucose 27 mg/dL (70-110)
[2021-02-05 11:15] LABS: Bedside Glucose 297 mg/dL (70-110)
[2021-02-05] MEDS: tiZANidine HCl 2 MG Tablet PO (13:26)
[2021-02-05 15:10] VITALS: BP 112/58; PULSE 86; RESP 16; TEMP 36.1; O2SAT 96
[2021-02-05 16:11] LABS: Bedside Glucose 350 mg/dL (70-110)
[2021-02-05] MEDS: Insulin Lispro 100 UNIT/ML INSULN.PEN 10 UNIT SC (17:01)
[2021-02-05] MEDS: Magnesium Hydroxide 30 ML UDC PO (17:03)
[2021-02-05 17:51] LABS: Bedside Glucose 324 mg/dL (70-110)
--- NOTE | 2021-02-05 21:54 | NURSING ---
Stool sample obtained by this nurse at this time. Sent to lab.
[2021-02-05 22:35] LABS: Bedside Glucose 123 mg/dL (70-110)
[2021-02-05] MEDS: Pravastatin 40 MG Tablet PO (22:54)
[2021-02-05] MEDS: tiZANidine HCl 2 MG Tablet 4 MG PO (22:54)
[2021-02-05 23:30] VITALS: PULSE 89; RESP 16; O2SAT 95
[2021-02-06] MEDS: Pantoprazole Sodium 40 MG Tablet PO (06:22)
[2021-02-06] MEDS: Citalopram 10 MG Tablet PO (06:22)
[2021-02-06] MEDS: Levothyroxine 100 MCG Tablet 200 MCG PO (06:22)
[2021-02-06] MEDS: buPROPion (XL) 150 MG TABLET.XL PO (06:22)
[2021-02-06] MEDS: Magnesium Chloride 64 MG Delay Rel.Tablet 128 MG PO ×2 (06:22→17:51)
[2021-02-06] MEDS: Clopidogrel Bisulfate 75 MG Tablet PO (06:22)
[2021-02-06] MEDS: Acetaminophen 500 MG Tablet 1000 MG PO ×3 (06:22→21:13)
[2021-02-06 06:26] LABS: Bedside Glucose 162 mg/dL (70-110)
[2021-02-06] MEDS: Ammonium Lactate 225 gm Bottle 1 APPLIC TOPICAL (06:27)
[2021-02-06] MEDS: Nystatin Powder 15gm Bottle 1 APPLIC TOPICAL ×2 (06:28→17:54)
[2021-02-06] MEDS: Menthol/Lanolin/Calamine/Znox 113 GM Tube 1 APPLIC TOPICAL ×2 (06:28→17:54)
[2021-02-06 06:29] VITALS: BP 114/57; PULSE 85; RESP 16; TEMP 36.7; O2SAT 98
[2021-02-06 07:32] VITALS: O2SAT 94
[2021-02-06] MEDS: Insulin Lispro 100 UNIT/ML INSULN.PEN SC ×4 (09:00→17:52)
[2021-02-06] MEDS: Aspirin E.C. 81 MG Tablet PO (09:00)
[2021-02-06] MEDS: Gabapentin 100 MG Capsule PO ×2 (09:01→17:51)
[2021-02-06] MEDS: Iron Polysaccharide Complex 150 MG CAPSULE PO (09:01)
[2021-02-06] MEDS: predniSONE 5 MG Tablet 2.5 MG PO (09:01)
[2021-02-06] MEDS: Carvedilol 3.125 MG TABLET PO ×2 (09:02→17:51)
[2021-02-06] MEDS: oxyCODONE 5 MG Tablet PO (09:07)
[2021-02-06 10:00] VITALS: PULSE 69; O2SAT 95
[2021-02-06 10:51] LABS: Bedside Glucose 288 mg/dL (70-110)
[2021-02-06] MEDS: tiZANidine HCl 2 MG Tablet PO (14:00)
[2021-02-06 14:49] VITALS: BP 115/60; PULSE 81; RESP 18; TEMP 36.3; O2SAT 98
[2021-02-06 16:01] LABS: Bedside Glucose 299 mg/dL (70-110)
--- NOTE | 2021-02-06 16:08 | NURSING ---
Pt Blood Sugar 299 Dr. Bond updated new order for 5 units of Humalog x1.
[2021-02-06] MEDS: Senna/Docusate Sodium 1 Tablet 2 TABLET PO (17:51)
[2021-02-06 18:09] VITALS: BP 113/56; PULSE 78
[2021-02-06] MEDS: tiZANidine HCl 2 MG Tablet 4 MG PO (21:14)
[2021-02-06] MEDS: Pravastatin 40 MG Tablet PO (21:14)
[2021-02-06 21:41] LABS: Bedside Glucose 191 mg/dL (70-110)
[2021-02-07 06:25] VITALS: BP 112/55; PULSE 88; RESP 16; TEMP 36.7; O2SAT 98
[2021-02-07] MEDS: Citalopram 10 MG Tablet PO (06:28)
[2021-02-07] MEDS: Magnesium Chloride 64 MG Delay Rel.Tablet 128 MG PO ×2 (06:28→17:19)
[2021-02-07] MEDS: Levothyroxine 100 MCG Tablet 200 MCG PO (06:28)
[2021-02-07] MEDS: buPROPion (XL) 150 MG TABLET.XL PO (06:28)
[2021-02-07] MEDS: Acetaminophen 500 MG Tablet 1000 MG PO ×3 (06:28→21:58)
[2021-02-07] MEDS: Pantoprazole Sodium 40 MG Tablet PO (06:29)
[2021-02-07] MEDS: Clopidogrel Bisulfate 75 MG Tablet PO (06:29)
[2021-02-07] MEDS: Ammonium Lactate 225 gm Bottle 1 APPLIC TOPICAL (06:29)
[2021-02-07] MEDS: Menthol/Lanolin/Calamine/Znox 113 GM Tube 1 APPLIC TOPICAL ×2 (06:31→14:55)
[2021-02-07] MEDS: Nystatin Powder 15gm Bottle 1 APPLIC TOPICAL ×2 (06:31→14:55)
[2021-02-07] MEDS: Senna/Docusate Sodium 1 Tablet 2 TABLET PO ×2 (06:32→17:19)
[2021-02-07 06:36] LABS: Bedside Glucose 190 mg/dL (70-110)
[2021-02-07] MEDS: Insulin Lispro 100 UNIT/ML INSULN.PEN SC ×3 (08:04→17:19)
[2021-02-07] MEDS: Carvedilol 3.125 MG TABLET PO ×2 (08:05→17:18)
[2021-02-07] MEDS: Aspirin E.C. 81 MG Tablet PO (08:05)
[2021-02-07] MEDS: Iron Polysaccharide Complex 150 MG CAPSULE PO (08:06)
[2021-02-07] MEDS: Gabapentin 100 MG Capsule PO ×2 (08:06→17:18)
[2021-02-07] MEDS: predniSONE 5 MG Tablet 2.5 MG PO (08:06)
[2021-02-07 08:10] VITALS: BP 122/71; PULSE 86
[2021-02-07] MEDS: Ondansetron ODT 4 MG Tablet PO (08:12)
[2021-02-07 10:46] LABS: Bedside Glucose 304 mg/dL (70-110)
[2021-02-07 10:51] LABS: Bedside Glucose 264 mg/dL (70-110)
[2021-02-07 10:55] VITALS: O2SAT 98
[2021-02-07] MEDS: Magnesium Hydroxide 30 ML UDC PO (11:59)
[2021-02-07] MEDS: oxyCODONE 5 MG Tablet PO ×2 (12:31→22:03)
[2021-02-07 14:03] VITALS: BP 116/58; PULSE 86; RESP 16; TEMP 36.4; O2SAT 97
--- NOTE | 2021-02-07 14:09 | CASEMGMT ---
Social Work CRISTINA spoke with pt and with spouse and discharge is planned for 02/10/21. Pt will be returning home with his and pt son will be staying with them for a few days. Pt would like [facility] PT/OT/SN/VISCOSE DEPARTMENT WORKER. Referral made and they are able to accept pt with start of care on 02/11/21. Pt informing CRISTINA and JAVED that he has changed his mind and does not like the Bariatric BSC and would like a standard instead. [place] [facility] [place]. CRISTINA will fax order for standard drop arm BSC when obtained and item to be delivered to pt home by date of discharge. Discharge Date 02/10/21 Discharge Disposition: Home with and home health PT/OT/SN/VISCOSE DEPARTMENT WORKER DAVID Avalos
[2021-02-07] MEDS: tiZANidine HCl 2 MG Tablet PO (14:54)
[2021-02-07 16:00] LABS: Bedside Glucose 219 mg/dL (70-110)
--- NOTE | 2021-02-07 18:56 | PCM.DC.SUM ---
Providers Date of Admission: 01/28/21 Primary Care Physician: Dr. Jcarlos Glasgow MD Consultations 02/02/21 07:50 Consult: Plastic Surgery Routine Consulting Provider: Manan Lopez Reason for Consult: Right BKA, stump drainage. EMERGENT Consult: No MD Notified: Yes Date Notified: 02/02/21 Time Notified: 07:50 Method of Notification: Answering Service Reason For Visit: RIGHT BKA Diagnosis Discharge Diagnosis (1) Debility: Status: Acute Code(s): R53.81 - Other malaise (2) Below-knee amputation of right lower extremity: Status: Acute Code(s): S88.111A - Complete traumatic amputation at level between knee and ankle, right lower leg, initial encounter (3) Acute kidney injury: Status: Acute Code(s): N17.9 - Acute kidney failure, unspecified (4) Orthostatic hypotension: Status: Acute Code(s): I95.1 - Orthostatic hypotension (5) Acute on chronic systolic congestive heart failure: Status: Chronic Code(s): I50.23 - Acute on chronic systolic (congestive) heart failure (6) Urinary tract infection: Status: Acute Code(s): N39.0 - Urinary tract infection, site not specified (7) Diabetes mellitus: Status: Acute Code(s): E11.9 - Type 2 diabetes mellitus without complications (8) Chronic obstructive pulmonary disease: Status: Chronic Code(s): J44.9 - Chronic obstructive pulmonary disease, unspecified (9) Coronary artery disease: Status: Acute Code(s): I25.10 - Atherosclerotic heart disease of [place] coronary artery without angina pectoris (10) Glaucoma: Status: Acute Code(s): H40.9 - Unspecified glaucoma (11) Obstructive sleep apnea: Status: Acute Code(s): G47.33 - Obstructive sleep apnea (adult) (pediatric) (12) Peripheral arterial occlusive disease: Status: Acute Code(s): I77.9 - Disorder of arteries and arterioles, unspecified (13) Hypothyroidism: Status: Acute Code(s): E03.9 - Hypothyroidism, unspecified (14) Gastroesophageal reflux disease: Status: Acute Code(s): K21.9 - Gastro-esophageal reflux disease without esophagitis (15) Hyperlipidemia: Status: Acute Code(s): E78.5 - Hyperlipidemia, unspecified Medications at Discharge Home Medications prednisone 2.5 mg tablet 2.5 mg PO DAILY 08/05/19 aspirin 81 mg tablet,delayed release 81 mg PO DAILY 12/17/19 clopidogrel 75 mg PO DAILY 08/06/20 pravastatin 40 mg PO QHS 08/06/20 ammonium lactate 227 gm TP DAILY 01/12/21 acetaminophen 1,000 mg PO Q8 #0 tab 01/28/21 bisacodyl 10 mg IA .PRN X 1 PRN #0 ea 01/28/21 bupropion HCl 150 mg PO DAILY 01/28/21 carvedilol 3.125 mg PO BIDCM 01/28/21 levothyroxine 200 mcg PO DAILY #0 tab 01/28/21 citalopram 10 mg PO DAILY 30 Days #30 tab 02/07/21 gabapentin 100 mg PO BIDCM 30 Days #60 cap 02/07/21 insulin glargine [Lantus Solostar U-100 Insulin] 15 units SUBCUT QHS 30 Days #4.5 ml 02/07/21 insulin lispro [Humalog KwikPen Insulin] 5 unit SUBCUT TIDAC 30 Days #4.5 ml 02/07/21 magnesium chloride [Mag 64] 128 mg PO BID 30 Days #60 tab 02/07/21 ondansetron HCl [Zofran] 4 mg PO Q8H 30 Days #90 tab 02/07/21 oxycodone 5 mg PO Q4H PRN PRN 3 Days #18 tab 02/07/21 pantoprazole 40 mg PO DAILY 30 Days #30 tab 02/07/21 polysaccharide iron complex [Ferrex 150] 150 mg PO DAILYCM 30 Days #30 cap 02/07/21 tizanidine 2 mg PO 1400 30 Days #30 tab 02/07/21 tizanidine 4 mg PO QHS 30 Days #60 tab 02/07/21 Hospital Course Operations - (Right below knee amputation.) Procedures None Summary of Care Provided Minutes Spent on Discharge: 35 Hospital Course: 75 year old male with below past medical history 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 Discharge home with 02/10/2021, Home Health Care PT/OT/SN/DEPUTY TREASURER. Physical Exam Const alert and oriented x3 General Appearance: cooperative HEENT normocephalic Eyes PERRL and EOMs intact bilaterally Neck supple, no JVD and no carotid bruits Resp normal respiratory effort, normal air movement and clear to auscultation bilaterally Cardio regular rate and regular rhythm GI normal to inspection, nondistended, normoactive bowel sounds, non-tender and non-distended Extremity normal capillary refill Extremity Narrative: Bilateral below knee amputation. General Extremity: Negative for edema Skin no rashes or lesions noted General Skin Exam: no breakdown Psych affect normal Appearance: appropriate Medical Records Data Medical Nutrition Assessment Dietitian: Nutrition Therapy Diagnosis Start: 01/29/21 12:39 Freq: Status: Active Protocol: Document 02/02/21 14:48 CHARLIE (Rec: 02/02/21 14:49 CHARLIE [id number]) Nutrition Malnutrition Evidence of Malnutrition Exists No Intake Problem Increased Nutrient Needs (specify) Status Active Problem Clinical Problem Altered Nutrient-Related Laboratory Values Etiology related to diabetes and steroid use Signs/Symptoms as evidenced by gluc 47447 Status Active Problem Recommendation Dietitian Recommendations/Changes Will continue Consistent CHO/ Cardiac diet w/ 1500 FR/day diet- easy to chew - SMALL portions Will continue to provide magic cup w/ all meals per res request Will d/c Alok per res request Weight / BMI Weight Weight: 74.417 kg Body Mass Index (BMI) 24.0 ABG / Lab / Microbiology Data Result Diagrams: 02/05/21 06:28 02/05/21 06:28 Laboratory: Laboratory Results - last 24 hr 02/06/21 21:32: POC Glucose 191 H 02/07/21 06:30: POC Glucose 190 H 02/07/21 10:39: POC Glucose 304 H 02/07/21 10:47: POC Glucose 264 H 02/07/21 15:48: POC Glucose 219 H Microbiology: Microbiology 02/05/21 21:53 Stool Stool Occult Blood (YAJAIRA) - Final Occult Blood Positive 01/29/21 11:20 Mucosa - Nose SARS-CoV-2 Antigen (Rapid) - Final D/C Instructions Discharge Diet: No restrictions Discharge Activity: Return to Normal Activity, May Shower and Use Walker Weight Bearing Status: No weight bearing Call your doctor if you observe: Fever of 101 or Higher, Inability to urinate, Inability to have a bowel movement, Shortness of breath, Fainting spells, Chest pain, Increased palpitations (irregular heartbeat) and Uncontrolled pain Additional Instructions: Discharge home with 02/10/2021, Home Health Care PT/OT/SN/DEPUTY TREASURER. Please Follow Up With: [facility] When: As scheduled. Meaningful Use Info Meaningful Use Diagnoses (Choose all that apply): None applicable Discharge Plan Admission Admit Date/Time: 01/28/21 11:22 Primary Reason for Your Visit: Debility. Attending Provider: Jonh Bond Chi Primary Care Provider: Jcarlos Glasgow Consulting Providers: Manan Lopez Instructions Additional Instructions / Restrictions: [facility] PT/OT/SN/DEPUTY TREASURER Discharge Orders/Prescriptions Prescriptions: New tizanidine 2 mg Tablet 4 mg PO QHS 30 Days Qty: 60 RF: 0 tizanidine 2 mg Tablet 2 mg PO 1400 30 Days Qty: 30 RF: 0 insulin lispro [Humalog KwikPen Insulin] 100 unit/mL Insulin Pen 5 unit subcut TIDAC 30 Days Qty: 4.5 RF: 0 Lantus Solostar U-100 Insulin 100 unit/mL (3 mL) Insulin Pen 15 units subcut QHS 30 Days Qty: 4.5 RF: 0 polysaccharide iron complex [Ferrex 150] 150 mg iron Capsule 150 mg PO DAILYCM 30 Days Qty: 30 RF: 0 Continued prednisone 2.5 mg tablet 2.5 mg PO DAILY RF: 0 aspirin [Adult Aspirin Regimen] 81 mg tablet,delayed release (DR/EC) 81 mg PO DAILY RF: 0 pravastatin 40 MG tablet 40 mg PO QHS RF: 0 clopidogrel 75 MG tablet 75 mg PO DAILY RF: 0 ammonium lactate 396 GM lotion 227 gm TP DAILY RF: 0 bisacodyl 10 mg Suppository 10 mg IA .PRN X 1 PRN (Reason: Constipation) Qty: 0 RF: 0 acetaminophen 500 mg tablet 1,000 mg PO Q8 Qty: 0 RF: 0 levothyroxine 200 mcg tablet 200 mcg PO DAILY Qty: 0 RF: 0 carvedilol 3.125 mg tablet 3.125 mg PO BIDCM RF: 0 bupropion HCl 150 mg tablet extended release 24 hr 150 mg PO DAILY RF: 0 citalopram 10 mg tablet 10 mg PO DAILY 30 Days Qty: 30 RF: 0 ondansetron HCl [Zofran] 4 mg tablet 4 mg PO Q8H 30 Days Qty: 90 RF: 0 pantoprazole 40 mg tablet,delayed release (DR/EC) 40 mg PO DAILY 30 Days Qty: 30 RF: 0 gabapentin 100 mg capsule 100 mg PO BIDCM 30 Days Qty: 60 RF: 0 oxycodone 5 mg Tablet 5 mg PO Q4H PRN PRN (Reason: Pain Score 6-10) 3 Days Qty: 18 RF: 0 magnesium chloride [Mag 64] 64 mg tablet,delayed release (DR/EC) 128 mg PO BID 30 Days Qty: 60 RF: 0 Discontinued tizanidine 4 mg tablet 4 mg PO Q8H PRN (Reason: MUSCLE SPASMS) RF: 0 Lantus U-100 Insulin 100 UNIT/ML solution 10 unit SQ BID RF: 0 insulin regular human 100 UNIT/ML solution 10 units SC BREAKFAST RF: 0 insulin regular human 100 UNIT/ML solution 20 units SC DINNER RF: 0 dextrose 38 GM gel 1 dose PO PRN PRN (Reason: Hypoglycemia) RF: 0 ipratropium bromide 1 SPRAY spray,non-aerosol 1 spray NASAL PRN PRN (Reason: Runny Nose) RF: 0 GlucaGen Diagnostic Kit 1 mg/mL Recon Soln 1 mg IM .X1 PRN (Reason: Hypoglycemia) Qty: 0 RF: 0 magnesium hydroxide 400 mg/5 mL Suspension 30 ml PO .PRN X 1 PRN (Reason: Constipation) Qty: 0 RF: 0 Biotene Dry Mouth Oral Rinse Mouthwash 15 ml mucous membrane 5X/DAY PRN (Reason: Dry Mouth) Qty: 0 RF: 0 doxycycline hyclate 100 mg capsule 100 mg PO BID RF: 0 bumetanide 2 mg tablet 2 mg PO DAILY RF: 0 tizanidine 2 mg tablet 4 mg PO QHS RF: 0 tizanidine 2 mg tablet 2 mg PO 0600,1400 RF: 0 sennosides-docusate sodium [Stool Softener-Stimulant Laxat] 8.6-50 mg tablet 2 tab PO BID RF: 0 nystatin [Nyamyc] 100,000 unit/gram powder 1 applic topical BID RF: 0 cefdinir 300 mg capsule 300 mg PO BID RF: 0 menthol-zinc oxide [Calmoseptine] 0.44-20.6 % ointment 1 applic topical BID RF: 0 Referrals / Follow Up: Jcarlos Glasgow MD [Primary Care Provider] - Disposition Disposition (needs filled in before D/C Order can be placed): Home Health Service
[2021-02-07 21:36] LABS: Bedside Glucose 246 mg/dL (70-110)
[2021-02-07] MEDS: tiZANidine HCl 2 MG Tablet 4 MG PO (21:59)
[2021-02-07] MEDS: Pravastatin 40 MG Tablet PO (21:59)
[2021-02-08 06:26] LABS: Bedside Glucose 285 mg/dL (70-110)
[2021-02-08 06:41] VITALS: O2SAT 94
[2021-02-08 06:49] VITALS: BP 109/59; PULSE 85; RESP 16; TEMP 36.4; O2SAT 96
[2021-02-08] MEDS: Senna/Docusate Sodium 1 Tablet 2 TABLET PO (06:50)
[2021-02-08] MEDS: Magnesium Chloride 64 MG Delay Rel.Tablet 128 MG PO ×2 (06:51→17:34)
[2021-02-08] MEDS: buPROPion (XL) 150 MG TABLET.XL PO (06:51)
[2021-02-08] MEDS: Acetaminophen 500 MG Tablet 1000 MG PO ×3 (06:51→20:07)
[2021-02-08] MEDS: Clopidogrel Bisulfate 75 MG Tablet PO (06:52)
[2021-02-08] MEDS: Levothyroxine 100 MCG Tablet 200 MCG PO (06:52)
[2021-02-08] MEDS: Citalopram 10 MG Tablet PO (06:52)
[2021-02-08] MEDS: Pantoprazole Sodium 40 MG Tablet PO (06:52)
[2021-02-08] MEDS: Nystatin Powder 15gm Bottle 1 APPLIC TOPICAL ×2 (06:57→17:35)
[2021-02-08] MEDS: Menthol/Lanolin/Calamine/Znox 113 GM Tube 1 APPLIC TOPICAL ×2 (06:57→17:34)
[2021-02-08] MEDS: Insulin Lispro 100 UNIT/ML INSULN.PEN SC ×3 (08:19→17:29)
[2021-02-08] MEDS: Carvedilol 3.125 MG TABLET PO ×2 (08:21→17:34)
[2021-02-08] MEDS: Iron Polysaccharide Complex 150 MG CAPSULE PO (08:22)
[2021-02-08] MEDS: Aspirin E.C. 81 MG Tablet PO (08:22)
[2021-02-08] MEDS: Gabapentin 100 MG Capsule PO ×2 (08:22→17:34)
[2021-02-08] MEDS: predniSONE 5 MG Tablet 2.5 MG PO (08:22)
[2021-02-08 08:25] VITALS: BP 112/57; PULSE 82
--- NOTE | 2021-02-08 08:37 | MDS.RN ---
information for the mds was obtained from review of the clinical record, interview of resident, staff, and direct observation of resident's care.
[2021-02-08 11:06] LABS: Bedside Glucose 352 mg/dL (70-110)
[2021-02-08] MEDS: tiZANidine HCl 2 MG Tablet PO (14:09)
[2021-02-08] MEDS: Magnesium Hydroxide 30 ML UDC PO (14:14)
[2021-02-08 14:26] VITALS: BP 120/55; PULSE 88; RESP 16; TEMP 36.1; O2SAT 95
[2021-02-08 16:01] LABS: Bedside Glucose 369 mg/dL (70-110)
[2021-02-08] MEDS: Insulin Lispro 100 UNIT/ML INSULN.PEN 10 UNIT SC (17:28)
[2021-02-08] MEDS: Pravastatin 40 MG Tablet PO (20:07)
[2021-02-08] MEDS: tiZANidine HCl 2 MG Tablet 4 MG PO (20:07)
[2021-02-08 22:01] LABS: Bedside Glucose 225 mg/dL (70-110)
[2021-02-09] MEDS: Menthol/Lanolin/Calamine/Znox 113 GM Tube 1 APPLIC TOPICAL ×2 (06:15→18:41)
[2021-02-09] MEDS: Ammonium Lactate 225 gm Bottle 1 APPLIC TOPICAL (06:16)
[2021-02-09] MEDS: Magnesium Chloride 64 MG Delay Rel.Tablet 128 MG PO ×2 (06:18→18:41)
[2021-02-09] MEDS: Nystatin Powder 15gm Bottle 1 APPLIC TOPICAL ×2 (06:18→18:41)
[2021-02-09] MEDS: Citalopram 10 MG Tablet PO (06:18)
[2021-02-09] MEDS: Clopidogrel Bisulfate 75 MG Tablet PO (06:18)
[2021-02-09] MEDS: buPROPion (XL) 150 MG TABLET.XL PO (06:19)
[2021-02-09] MEDS: Senna/Docusate Sodium 1 Tablet 2 TABLET PO (06:19)
[2021-02-09] MEDS: Levothyroxine 100 MCG Tablet 200 MCG PO (06:19)
[2021-02-09] MEDS: Pantoprazole Sodium 40 MG Tablet PO (06:19)
[2021-02-09] MEDS: Acetaminophen 500 MG Tablet 1000 MG PO ×3 (06:19→22:12)
[2021-02-09 06:31] LABS: Bedside Glucose 79 mg/dL (70-110)
[2021-02-09 07:21] VITALS: BP 110/56; PULSE 83; RESP 14; TEMP 36.2; O2SAT 98
[2021-02-09 07:38] VITALS: O2SAT 95
[2021-02-09] MEDS: Aspirin E.C. 81 MG Tablet PO (08:50)
[2021-02-09] MEDS: Insulin Lispro 100 UNIT/ML INSULN.PEN SC ×3 (08:50→18:40)
[2021-02-09] MEDS: Gabapentin 100 MG Capsule PO ×2 (08:50→18:40)
[2021-02-09] MEDS: Iron Polysaccharide Complex 150 MG CAPSULE PO (08:50)
[2021-02-09] MEDS: predniSONE 5 MG Tablet 2.5 MG PO (08:50)
[2021-02-09] MEDS: Carvedilol 3.125 MG TABLET PO ×2 (08:51→18:40)
--- NOTE | 2021-02-09 10:09 | CASEMGMT ---
BIMS and PHQ9 interviews completed on this date for MDS assessment. DAVID Avalos
[2021-02-09 10:35] LABS: Bedside Glucose 297 mg/dL (70-110)
[2021-02-09] MEDS: Magnesium Citrate 300 ML PO (10:47)
--- NOTE | 2021-02-09 13:58 | PN.SURG_ITS ---
Subjective Subjective Postop #30 Patient is sitting on bedside commode. He is having issues with constipation. He denies any issues with his right BKA. He is being discharged home tomorrow. Objective Data Objective Data Vital Signs: Vital Signs Temp Pulse Resp BP Pulse Ox 97.1 F L 83 14 110/56 L 95 02/09/21 07:21 02/09/21 07:21 02/09/21 07:21 02/09/21 07:21 02/09/21 07:38 Oxygen Flow Rate (L/min) 2 Oxygen Delivery Method Room Air Weight: 164 lb 1 oz Body Mass Index (BMI) 24.0 Intake & Output: Intake and Output for Last 24 Hours 02/07/21 02/08/21 02/09/21 23:59 23:59 23:59 Intake Total 720 / 720 720 / 720 360 / 360 Balance 720 / 720 720 / 720 360 / 360 Medical Nutrition Assessment Dietitian: Nutrition Therapy Diagnosis Start: 01/29/21 12:39 Freq: Status: Active Protocol: Document 02/02/21 14:48 SLA (Rec: 02/02/21 14:49 SLA [id number]) Nutrition Malnutrition Evidence of Malnutrition Exists No Intake Problem Increased Nutrient Needs (specify) Status Active Problem Clinical Problem Altered Nutrient-Related Laboratory Values Etiology related to diabetes and steroid use Signs/Symptoms as evidenced by gluc 47-447 Status Active Problem Recommendation Dietitian Recommendations/Changes Will continue Consistent CHO/ Cardiac diet w/ 1500 FR/day diet- easy to chew - SMALL portions Will continue to provide magic cup w/ all meals per res request Will d/c Alok per res request Lab / Micro Data Result Diagrams: 02/05/21 06:28 02/05/21 06:28 Labs: Laboratory Results - last 24 hr 02/08/21 15:41: POC Glucose 369 H 02/08/21 21:46: POC Glucose 225 H 02/09/21 06:23: POC Glucose 79 02/09/21 10:27: POC Glucose 297 H Micro: Microbiology 02/05/21 21:53 Stool Stool Occult Blood (YAJAIRA) - Final Occult Blood Positive 01/29/21 11:20 Mucosa - Nose SARS-CoV-2 Antigen (Rapid) - Final Physical Exam Const oriented x3 and no apparent distress Resp normal respiratory effort Cardio regular rate GI normal to inspection, nondistended, normoactive bowel sounds Extremity General Extremity: Negative for edema Skin Wound Narrative: Right BKA incision is dry and intact. Sutures are intact. Neuro oriented x3 Psych mental status grossly normal Assessment & Plan Assessment/Plan (1) Below-knee amputation of right lower extremity: (2) Debility: (3) Diabetes mellitus: QUALIFIERS: Diabetes mellitus complication detail: with other circulatory complications Diabetes mellitus complication status: with circulatory complication Diabetes mellitus ferry terminal agent insulin use: with ferry terminal agent use PLAN: Patient is now in TCU. His right BKA stump blistering and swelling have resolved. His sutures are dry and intact. Incision is intact with some scabbing along the incision line. Ok to wash the stump with soap and water. No signs of seroma since the drain was pulled. The compression with the JIGAR wrap has helped with his swelling. Continue compression. He can follow up at the wound healing center. We will consider removing sutures at that time. Charges/Coding Procedures Integumentary 111xxx-113xx: [id number] Global Visit
[2021-02-09] MEDS: tiZANidine HCl 2 MG Tablet PO (14:01)
[2021-02-09 14:15] VITALS: BP 102/52; PULSE 86; RESP 16; TEMP 36.2; O2SAT 96
[2021-02-09 16:56] LABS: Bedside Glucose 197 mg/dL (70-110)
[2021-02-09 21:56] LABS: Bedside Glucose 326 mg/dL (70-110)
[2021-02-09] MEDS: tiZANidine HCl 2 MG Tablet 4 MG PO (22:11)
[2021-02-09] MEDS: Pravastatin 40 MG Tablet PO (22:11)
--- NOTE | 2021-02-09 22:18 | NURSING ---
Pt declines hs snack. Blood sugar 326. Requested only 10 units of Lantus be administered.
[2021-02-10 06:31] LABS: Bedside Glucose 271 mg/dL (70-110)
[2021-02-10 06:33] VITALS: BP 131/53; PULSE 72; RESP 16; TEMP 36.2; O2SAT 98
[2021-02-10] MEDS: Citalopram 10 MG Tablet PO (06:34)
[2021-02-10] MEDS: Pantoprazole Sodium 40 MG Tablet PO (06:35)
[2021-02-10] MEDS: Magnesium Chloride 64 MG Delay Rel.Tablet 128 MG PO (06:35)
[2021-02-10] MEDS: Clopidogrel Bisulfate 75 MG Tablet PO (06:35)
[2021-02-10] MEDS: Levothyroxine 100 MCG Tablet 200 MCG PO (06:35)
[2021-02-10] MEDS: Acetaminophen 500 MG Tablet 1000 MG PO (06:35)
[2021-02-10] MEDS: buPROPion (XL) 150 MG TABLET.XL PO (06:36)
[2021-02-10] MEDS: Menthol/Lanolin/Calamine/Znox 113 GM Tube 1 APPLIC TOPICAL (06:37)
[2021-02-10 07:19] VITALS: O2SAT 96
[2021-02-10] MEDS: Insulin Lispro 100 UNIT/ML INSULN.PEN SC (08:03)
[2021-02-10] MEDS: Aspirin E.C. 81 MG Tablet PO (08:04)
[2021-02-10] MEDS: Iron Polysaccharide Complex 150 MG CAPSULE PO (08:04)
[2021-02-10] MEDS: predniSONE 5 MG Tablet 2.5 MG PO (08:04)
[2021-02-10] MEDS: Gabapentin 100 MG Capsule PO (08:04)
[2021-02-10] MEDS: Carvedilol 3.125 MG TABLET PO (08:04)
[2021-02-10 08:06] VITALS: BP 110/55; PULSE 76
[2021-02-10 10:00] VITALS: PULSE 79; RESP 16; O2SAT 98
[2021-02-10 10:51] LABS: Bedside Glucose 391 mg/dL (70-110)
[2021-02-10 11:00] VITALS: BP 115/51; PULSE 78; RESP 18; TEMP 36.3; O2SAT 98
== END 2021-02-10 11:20 | disposition home health service (06) | DRG 560 ==
PROVIDERS: Admitting Provider Family Medicine Geriatric Medicine; PCP Family Medicine; Visit Provider Family Medicine Geriatric Medicine
DX: Z47.81 Encounter for orthopedic aftercare following surgical amputation (principal); N39.0 Urinary tract infection, site not specified; I50.22 Chronic systolic (congestive) heart failure; Z89.511 Acquired absence of right leg below knee; J44.9 Chronic obstructive pulmonary disease, unspecified; I25.10 Atherosclerotic heart disease of native coronary artery without angina pectoris; F32.9 Major depressive disorder, single episode, unspecified; G47.33 Obstructive sleep apnea (adult) (pediatric); I25.5 Ischemic cardiomyopathy; E11.42 Type 2 diabetes mellitus with diabetic polyneuropathy; H40.9 Unspecified glaucoma; K21.9 Gastro-esophageal reflux disease without esophagitis; E03.9 Hypothyroidism, unspecified; E78.5 Hyperlipidemia, unspecified; E11.51 Type 2 diabetes mellitus with diabetic peripheral angiopathy without gangrene; B35.4 Tinea corporis; Z87.891 Personal history of nicotine dependence; Z79.899 Other long term (current) drug therapy; Z79.4 Long term (current) use of insulin; Z79.52 Long term (current) use of systemic steroids; Z79.02 Long term (current) use of antithrombotics/antiplatelets; Z99.81 Dependence on supplemental oxygen; Z95.810 Presence of automatic (implantable) cardiac defibrillator; Z95.1 Presence of aortocoronary bypass graft
CPT/HCPCS: 36415; 80048; 82274; 82947; 82962; 85025; 87426; 92507; 92523; 92526; 92610; 97110; 97116; 97162; 97166; 97530; 97535; 97802

== ENCOUNTER 2021-02-28 13:00 | Outpatient (RCR) | payer MEDICARE, OTHER, SELFPAY ==
[2021-02-14 10:09] VITALS: BP 119/45; PULSE 87; RESP 16; TEMP 36.4; BMI 24.0
--- NOTE | 2021-02-14 10:19 | WC ---
SUTURES INTACT TO R STUMP P/O INCISION
--- NOTE | 2021-02-14 12:47 | PN.PCM_ITS ---
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 After he was discharged from the hospital, he was in the inpatient rehab unit and then transferred to TCU. He was discharged home on 02/11/21. Wound care - Aquacel-Ag placed daily after washing the stump with soap and water. Continue compression with JIGAR wrap. Progress of Wound: Sutures removed. Some serous drainage from the center of the incision. Objective Data Objective Data Vital Signs: Vital Signs Temp Pulse Resp BP 97.5 F L 87 16 119/45 L 02/14/21 10:09 02/14/21 10:09 02/14/21 10:09 02/14/21 10:09 Oxygen Delivery Method Room Air Body Mass Index (BMI) 24.0 Charges/Coding Procedures Integumentary 111xxx-113xx: [id number] Global Visit Physical Exam Const alert and oriented x3 General Appearance: cooperative HEENT normocephalic Eyes PERRL Lymph Lymphatic: no lymphedema noted Resp normal respiratory effort Cardio regular rate GI normal to inspection, nondistended, normoactive bowel sounds Palpation: soft Extremity normal capillary refill Skin Wound Narrative: Right BKA incision with dry scabbing present and oozing of serous fluid from the center of incision. Sutures removed without difficulty and the dry scabbing removed. There is mild, superficial, separation on the medial aspect of the incision. Neuro CN's II-XII intact bilaterally Psych Appearance: grossly normal Debridement Note Debridement Note Post-Debridement Measurements and Additional Note: Post-Debridement Measurements/Treatment - Nurse 1 - General Ulcer Assessment Start: 02/14/21 10:09 Freq: Status: Active Protocol: GREG Activity Type Activity Date Activity User E-Sign Co-Sign Detail Recorded Client Recorded Date Recorded By Document 02/14/21 10:09 [facility] [id number] 02/14/21 10:19 [facility] 02/14/21 10:09 - Today's Visit Information Type of service Initial Visit Arrival Mode Wheelchair Arrival Mode (Other) electric scooter Transfer Assistance Other Transfer Assist (Other) stand by Accompanied by Patient Identification Verified (Name & Yes ) Patient Requires Transmission-Based No Precautions Finger Stick Blood Sugar(mg/dl) (if 69 indicated): Blood Sugar Stated by Patient Height and Weight Body Mass Index (BMI) 24.0 BMI Classification Normal Vital Signs Temperature (97.8 F-99.1 F) 97.5 F L Temperature Source Temporal Pulse Rate (60-100) 87 Pulse Location Monitor Respiratory Rate (12-18) 16 Respiratory rate source Observation Oxygen Delivery Method Room Air Blood Pressure (90/60-120/80) 119/45 L Blood Pressure Mean (mm Hg) 69 Source Monitor Position Sitting Blood Pressure Location Left Arm - Nurse 1 - General Ulcer Measurement Start: 02/14/21 10:09 Freq: Status: Active Protocol: Activity Type Activity Date Activity User E-Sign Co-Sign Detail Recorded Client Recorded Date Recorded By Document 02/14/21 10:09 [facility] [id number] 02/14/21 10:19 [facility] 02/14/21 10:09 Wound Center Nurse 1 #8- R STUMP cluster -Combined with other wound No -Current Size (cm) - Length 0.1 -Current Size (cm) - Width 0.1 -Current Size (cm) - Depth 0.1 -Total Square Cm 0.01 -Date of Last Picture (Recall this 02/14/21 field) -Photo Taken Yes -Epithelialization None Present -Tunneling No -Undermining/Tunneling No -Circular Undermining No -Exudate Amt Medium -Exudate Type Serosanguineous -Texture (Allison-wound Skin Appearance) Assessed -Moisture (Allison-wound Skin Appearance) Assessed -Color (Allison-wound Skin Appearance) Assessed -Temperature (Allison-wound Skin No Abnormality Appearance) (Pt Warm) -Ulcer Cleansing Rinsed/ Irrigated with Saline -Foul Odor after Cleansing No -Anesthetic Used 4% Lidocaine Solution - Nurse 2 - General Ulcer CM Notes Start: 02/14/21 10:09 Freq: Status: Active Protocol: Activity Type Activity Date Activity User E-Sign Co-Sign Detail Recorded Client Recorded Date Recorded By Document 02/14/21 10:38 ISAURA [id number] 02/14/21 10:52 ISAURA 02/14/21 10:38 Wound Center Nurse 2 -Time 10:49 -Correct Patient Yes -Correct Side, Site, Position Yes -Correct Procedure Yes -Procedure Performed Yes -Type of Procedure Incision & Drainage -Clinical Debridement Subcutaneous -Tissue Removed Subcutaneous -Post Debridement (cm) - Length 0.5 -Post Debridement (cm) - Width 17.5 -Post Debridement (cm) - Depth 0.5 -Total Square (Post) (cm) 8.75 -Area of Debridement (cm) - Length 0.5 -Area of Debridement (cm) - Width 17.5 -Total Square (Area) (cm) 8.75 -Tunneling No -Undermining/Tunneling No -Circular Undermining No -Wound/Ulcer Outcome Not Healed -Ulcer Cleansing Rinsed/ Irrigated with Saline -Foul Odor after Cleansing No -Bioengineered Tissue No -Treatment Response Procedure Tolerated Well -Debridement - Subq, 1st 20sq cm Yes Pain Scale: 0-10 Numeric Is Patient Pain Free? Yes - Nurse 3 - General Ulcer D/C NN Start: 02/14/21 10:09 Freq: Status: Active Protocol: Activity Type Activity Date Activity User E-Sign Co-Sign Detail Recorded Client Recorded Date Recorded By Document 02/14/21 11:02 HENRY [id number] 02/14/21 11:03 HENRY 02/14/21 11:02 Wound Care Nurse 3 #8- R STUMP cluster -Primary Dressing Applied Aquacel AG 4x4 -Primary Dressing Covered/Secured with Dry Gauze,Dry Gauze & Roll Gauze,Secured with Tape -Aquacel AG 4x4 1 Pain Scale: 0-10 Numeric Is Patient Pain Free? Yes - Visit Discharge Discharge Condition Stable Ambulatory Status Wheelchair Transportation Private Auto Accompanied by Wound debrided: BKA incision Laterality: Right Type of Debridement: Selective debridement Depth: Down to and including healthy tissue Percentage of wound debrided: 90 Tissue Removed: Dry scabbing removed with scissors and pickups, sutures also removed. Severity: Limited To Skin Breakdown Amount of bleeding with debridement: Mild Bleeding Controlled with: Pressure Patient tolerated procedure: Patient tolerated procedure well Assessment/Plan Assessment/Plan (1) Below-knee amputation of right lower extremity: CODE(S): S88.111A - Complete traumatic amputation at level between knee and ankle, right lower leg, initial encounter (2) Diabetes mellitus: CODE(S): E11.9 - Type 2 diabetes mellitus without complications (3) Debility: CODE(S): R53.81 - Other malaise PLAN: Wound Care - Moistened Aquacel-Ag placed on the incision line after washing with soap and water daily. There is serous fluid that can be expressed from the center of the incision with palpation. Will continue to monitor closely. Keep JIGAR wrap for compression on the area. Encouraged protein intake, including supplemental intake. He does not like Alok. Follow up 2 weeks.
[2021-02-28 13:21] VITALS: BP 100/44; PULSE 65; TEMP 36.3; BMI 24.0
--- NOTE | 2021-02-28 15:11 | PN.PCM_ITS ---
History of Present Illness Date of Service: 02/28/21 Chief Complaint: Right BKA on 01/10/21. History of Wound: 75-year-old male with a left below knee amputation (prior healed wound) and right BKA on 01/10/21 due to complications with transmetatarsal amputation follows up for ulcer of lateral foot with recurrent infections. After he was discharged from the hospital, he was in the inpatient rehab unit and then transferred to TCU. He was discharged home on 02/11/21. Wound care - Aquacel-Ag placed daily after washing the stump with soap and water. Continue compression with JIGAR wrap. Today he denies fever and states his appetite has been good. Progress of Wound: Incision has and there is bone exposure. Objective Data Objective Data Vital Signs: Vital Signs Temp Pulse Resp BP 97.4 F L 65 16 100/44 L 02/28/21 13:21 02/28/21 13:21 02/14/21 10:09 02/28/21 13:21 Oxygen Delivery Method Room Air Body Mass Index (BMI) 24.0 Charges/Coding Procedures Integumentary 111xxx-113xx: [id number] Global Visit Physical Exam Const alert and oriented x3 General Appearance: cooperative HEENT normocephalic Eyes PERRL Lymph Lymphatic: no lymphedema noted Resp normal respiratory effort Cardio regular rate GI Palpation: soft Extremity normal capillary refill Extremity Narrative: +1-+2 edema of right BKA stump Skin Wound Narrative: Incision from right BKA has . Able to palpate bone. Neuro CN's II-XII intact bilaterally Psych Appearance: grossly normal Debridement Note Debridement Note Post-Debridement Measurements and Additional Note: Post-Debridement Measurements/Treatment - Nurse 1 - General Ulcer Assessment Start: 02/14/21 10:09 Freq: Status: Active Protocol: GEOVANNI.LOWEXT Activity Type Activity Date Activity User E-Sign Co-Sign Detail Recorded Client Recorded Date Recorded By Document 02/14/21 10:09 [facility] [id number] 02/14/21 10:19 [facility] Document 02/28/21 13:21 [place] [id number] 02/28/21 13:24 [place] 02/14/21 02/28/21 10:09 13:21 - Today's Visit Information Type of service Initial Visit Follow-up Visit (Physician/PA[employer]ER ) Arrival Mode Wheelchair Wheelchair Arrival Mode (Other) electric scooter Transfer Assistance Other Transfer Assist (Other) stand by Accompanied by Patient Identification Verified (Name & Yes Yes ) Patient Requires Transmission-Based No Precautions Finger Stick Blood Sugar(mg/dl) (if 69 indicated): Blood Sugar Stated by Patient Height and Weight Body Mass Index (BMI) 24.0 24.0 BMI Classification Normal Normal Vital Signs Temperature (97.8 F-99.1 F) 97.5 F L 97.4 F L Temperature Source Temporal Temporal Pulse Rate (60-100) 87 65 Pulse Location Monitor Monitor Respiratory Rate (12-18) 16 Respiratory rate source Observation Oxygen Delivery Method Room Air Blood Pressure (90/60-120/80) 119/45 L 100/44 L Blood Pressure Mean (mm Hg) 69 62 Source Monitor Monitor Position Sitting Blood Pressure Location Left Arm History Since Last Visit- (Skip if this is Patient's initial visit) Have you changed medications since your No last visit? Any new allergies or adverse reactions No Had a fall/change in ADL's that may No increase risk of falls Signs or symptoms of abuse and/or No neglect since last visit Have you been in the hospital since your No last visit? Has dressing in place as prescribed Yes Has compression in place as prescribed Yes Has offloadiing in place as prescribed N/A Experienced any changes in pain level or No management Left Footwear No Footwear Right Footwear Regular Shoe WC - Nurse 1 - General Ulcer Measurement Start: 02/14/21 10:09 Freq: Status: Active Protocol: Activity Type Activity Date Activity User E-Sign Co-Sign Detail Recorded Client Recorded Date Recorded By Document 02/14/21 10:09 [facility] [id number] 02/14/21 10:19 [facility] Document 02/28/21 13:21 [place] [id number] 02/28/21 13:24 [place] 02/14/21 02/28/21 10:09 13:21 Wound Center Nurse 1 #8- R STUMP cluster -Combined with other wound No -Current Size (cm) - Length 0.1 2 -Current Size (cm) - Width 0.1 5.7 -Current Size (cm) - Depth 0.1 0.3 -Total Square Cm 0.01 11.4 -Date of Last Picture (Recall this 02/14/21 field) -Photo Taken Yes -Epithelialization None Present -Tunneling No -Undermining/Tunneling No -Circular Undermining No No -Change in Wound Grade/Stage No -Exudate Amt Medium Large -Exudate Type Serosanguineous Serosanguineous -Wound Margin Distinct, Outline Attached -Necrosis Amt Large (67-100%) -Necrotic Tissue Type Adherent Slough -Texture (Allison-wound Skin Appearance) Assessed Assessed, Scarring -Moisture (Allison-wound Skin Appearance) Assessed No Abnormality, Assessed -Color (Allison-wound Skin Appearance) Assessed No Abnormality, Assessed -Temperature (Allison-wound Skin No Abnormality No Abnormality Appearance) (Pt Warm) (Pt Warm) -Tenderness on Palpation (Allison-wound No Skin Appearance) -Ulcer Cleansing Rinsed/ Rinsed/ Irrigated with Irrigated with Saline Saline -Foul Odor after Cleansing No No -Anesthetic Used 4% Lidocaine 5% Lidocaine Solution Gel WC - Nurse 2 - General Ulcer CM Notes Start: 02/14/21 10:09 Freq: Status: Active Protocol: Activity Type Activity Date Activity User E-Sign Co-Sign Detail Recorded Client Recorded Date Recorded By Document 02/14/21 10:38 [id number] 02/14/21 10:52 Document 02/28/21 13:22 [id number] 02/28/21 13:32 02/14/21 02/28/21 10:38 13:22 Wound Center Nurse 2 #8- R STUMP cluster -Time 10:49 13:24 -Correct Patient Yes Yes -Correct Side, Site, Position Yes Yes -Correct Procedure Yes Yes -Procedure Performed Yes Yes -Type of Procedure Incision & Debridement Drainage -Clinical Debridement Subcutaneous Subcutaneous -Tissue Removed Subcutaneous Subcutaneous -Post Debridement (cm) - Length 0.5 1.5 -Post Debridement (cm) - Width 17.5 12.3 -Post Debridement (cm) - Depth 0.5 1.9 -Total Square (Post) (cm) 8.75 18.45 -Area of Debridement (cm) - Length 0.5 1.5 -Area of Debridement (cm) - Width 17.5 12.3 -Total Square (Area) (cm) 8.75 18.45 -Tunneling No No -Undermining/Tunneling No No -Circular Undermining No No -Wound/Ulcer Outcome Not Healed Not Healed -Ulcer Cleansing Rinsed/ Rinsed/ Irrigated with Irrigated with Saline Saline -Foul Odor after Cleansing No No -Bioengineered Tissue No No -Bleeding Controlled with Pressure -Offloading No -Treatment Response Procedure Procedure Tolerated Well Tolerated Well -Debridement - Subq, 1st 20sq cm Yes Yes Pain Scale: 0-10 Numeric Is Patient Pain Free? Yes Yes - Nurse 3 - General Ulcer D/C NN Start: 02/14/21 10:09 Freq: Status: Active Protocol: Activity Type Activity Date Activity User E-Sign Co-Sign Detail Recorded Client Recorded Date Recorded By Document 02/14/21 11:02 KR [id number] 02/14/21 11:03 KR Document 02/28/21 13:47 DL [id number] 02/28/21 13:48 DL 02/14/21 02/28/21 11:02 13:47 Wound Care Nurse 3 #8- R STUMP cluster -Ulcer Cleansing Rinsed/ Irrigated with Saline -Foul Odor after Cleansing No -Primary Dressing Applied Aquacel AG 4x4 Aquacel AG 4x4 -Primary Dressing Covered/Secured with Dry Gauze,Dry Dry Gauze & Gauze & Roll Roll Gauze, Gauze,Secured Secured with with Tape Tape -Other Covering jigar -Aquacel AG 4x4 1 1 Treatment Response Procedure Tolerated Well Pain Scale: 0-10 Numeric Is Patient Pain Free? Yes Yes WC - Visit Discharge Discharge Condition Stable Stable Ambulatory Status Wheelchair Wheelchair Transportation Private Auto Private Auto Accompanied by Wound debrided: BKA incision separation Laterality: Right Wound Grade/Stage: Stage IV Type of Debridement: Excisional debridement Anesthesia Used: 5% Lidocaine Gel Depth: Down to and including healthy tissue, in the subcutaneous layer, to muscle and to bone Percentage of wound debrided: 100 Instrument Used: 7mm curette Tissue Removed: Subcutaneous tissue and slough, into the muscle with bone exposure. 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 JIGAR wrap for compression. Wound cultures obtained today. Depending on the results of the culture, it may necessitate the need for antibiotic therapy. Encouraged protein intake, including supplemental intake. He does not like Alok. Follow up 2 weeks due to the holiday.
== END 2021-03-01 23:59 ==
LOC: WC 13:00
PROVIDERS: PCP Family Medicine; Visit Provider Nurse Practitioner Family
DX: E11.621 Type 2 diabetes mellitus with foot ulcer (principal); R53.81 Other malaise; Z89.511 Acquired absence of right leg below knee; T87.89 Other complications of amputation stump; L97.812 Non-pressure chronic ulcer of other part of right lower leg with fat layer exposed
CPT/HCPCS: 11042; 87070; 87075; 87077; 87186; 87205; 99213; G0463

== ENCOUNTER 2021-03-21 13:00 | Outpatient (RCR) | payer MEDICARE, OTHER, SELFPAY ==
[2021-03-02 00:43] VITALS: BP 100/44; PULSE 65; RESP 16; TEMP 36.3; BMI 24.0
[2021-03-16 13:11] VITALS: BP 110/60; PULSE 88; RESP 16; BMI 24.0
--- NOTE | 2021-03-16 15:34 | PCM.WC.PN ---
History of Present Illness Date of Service: 03/16/21 Chief Complaint: Right BKA History of Wound: 75-year-old male with a left below knee amputation (prior healed wound) and right BKA on 01/10/21 due to complications with transmetatarsal amputation follows up for ulcer of lateral foot with recurrent infections. After he was discharged from the hospital, he was in the inpatient rehab unit and then transferred to TCU. He was discharged home on 02/11/21. Wound care - Aquacel-Ag placed daily after washing the stump with soap and water. Continue compression with JEM wrap. He relates his incision site is starting to open and he is concerned it is not healing as planned. This is a courtesy visit today. Progress of Wound: Worsening status Objective Data Objective Data Vital Signs: Vital Signs Temp Pulse Resp BP 97.4 F L 88 16 110/60 03/02/21 00:43 03/16/21 13:11 03/16/21 13:11 03/16/21 13:11 Oxygen Delivery Method Room Air Body Mass Index (BMI) 24.0 Physical Exam Const alert and oriented x3 General Appearance: cooperative Lymph Lymphatic: no lymphedema noted GI Palpation: soft Extremity normal capillary refill Extremity Narrative: +1-+2 edema of right BKA stump Skin Wound Narrative: Incision from right BKA has . Able to palpate and visualize bone which is firm and normal white color. There is adjacent fibrous eschar and devitalized tissue. There is no purulence, odor, erythema, streaking or necrosis. There is no adjacent palpable bogginess or fluctuance. Psych Appearance: grossly normal Debridement Note Debridement Note Wound debrided: right below knee amputation stump site central and medial Wound Grade/Stage: 2 Type of Debridement: Excisional debridement Anesthesia Used: 4% Lidocaine Solution Depth: in the subcutaneous layer Percentage of wound debrided: 100 Instrument Used: #15 blade Tissue Removed: fibrous, devitalized subcutaneous, biofilm, slough Severity: Fat Layer Exposed Amount of bleeding with debridement: Mild Bleeding Controlled with: Pressure Patient tolerated procedure: Patient tolerated procedure well Post-Debridement Measurements and Additional Note: Post-Debridement Measurements/Treatment GEOVANNI - Nurse 1 - General Ulcer Assessment Start: 03/16/21 13:11 Freq: Status: Active Protocol: GREG Activity Type Activity Date Activity User E-Sign Co-Sign Detail Recorded Client Recorded Date Recorded By Document 03/16/21 13:11 [facility] [id number] 03/16/21 13:18 [facility] 03/16/21 13:11 WC - Today's Visit Information Type of service Follow-up Visit (Physician/SERGER ) Arrival Mode Wheelchair Transfer Assistance Other Transfer Assist (Other) STAND BY Accompanied by Patient Identification Verified (Name & Yes ) Patient Requires Transmission-Based No Precautions Height and Weight Body Mass Index (BMI) 24.0 BMI Classification Normal Vital Signs Pulse Rate (60-100) 88 Pulse Location Monitor Respiratory Rate (12-18) 16 Respiratory rate source Observation Oxygen Delivery Method Room Air Blood Pressure (90/60-120/80) 110/60 Blood Pressure Mean (mm Hg) 76 Source Monitor Position Sitting Blood Pressure Location Left Arm History Since Last Visit- (Skip if this is Patient's initial visit) Have you changed medications since your No last visit? Any new allergies or adverse reactions No Had a fall/change in ADL's that may No increase risk of falls Signs or symptoms of abuse and/or No neglect since last visit Have you been in the hospital since your No last visit? Has dressing in place as prescribed Yes Has compression in place as prescribed Yes Has offloadiing in place as prescribed N/A Experienced any changes in pain level or No management Pain Scale: 0-10 Numeric Is Patient Pain Free? Yes - Nurse 1 - General Ulcer Measurement Start: 03/16/21 13:11 Freq: Status: Active Protocol: Activity Type Activity Date Activity User E-Sign Co-Sign Detail Recorded Client Recorded Date Recorded By Document 03/16/21 13:11 [facility] [id number] 03/16/21 13:18 [facility] 03/16/21 13:11 Wound Center Nurse 1 #8- R STUMP cluster -Combined with other wound No -Current Size (cm) - Length 3.2 -Current Size (cm) - Width 7.2 -Current Size (cm) - Depth 1.1 -Total Square Cm 23.04 -Date of Last Picture (Recall this 03/16/21 field) -Photo Taken Yes -Epithelialization None Present -Tunneling No -Undermining/Tunneling Yes -Undermining/Tunneling Starts (O'clock 10 ) -Undermining/Tunneling Ends (O'clock) 11 -Maximum Distance (cm) 0.6 -Undermining/Tunneling Starts #2 (O' 12 clock) -Undermining/Tunneling Ends #2 (O' 1 clock) -Maximum Distance #2 (cm) 0.3 -Circular Undermining No -Exudate Amt Large -Exudate Type Serosanguineous -Wound Margin Distinct, Outline Attached -Granulation Amt Small (1-33%) -Granulation Quality Red -Slough/Fibrin Yes -Necrosis Amt Large (67-100%) -Necrotic Tissue Type Adherent Slough -Texture (Allison-wound Skin Appearance) Assessed, Scarring -Moisture (Allison-wound Skin Appearance) Assessed,Dry/ Scaly -Color (Allison-wound Skin Appearance) Assessed -Temperature (Allison-wound Skin No Abnormality Appearance) (Pt Warm) -Tenderness on Palpation (Allison-wound Yes Skin Appearance) -Ulcer Cleansing Rinsed/ Irrigated with Saline -Foul Odor after Cleansing No -Anesthetic Used 5% Lidocaine Gel WC - Nurse 2 - General Ulcer CM Notes Start: 03/16/21 13:11 Freq: Status: Active Protocol: Activity Type Activity Date Activity User E-Sign Co-Sign Detail Recorded Client Recorded Date Recorded By Document 03/16/21 13:27 ISAURA [id number] 03/16/21 13:32 ISAURA 03/16/21 13:27 Wound Center Nurse 2 -Time 13:27 -Correct Patient Yes -Correct Side, Site, Position Yes -Correct Procedure Yes -Procedure Performed Yes -Type of Procedure Debridement -Clinical Debridement Subcutaneous -Tissue Removed Subcutaneous -Post Debridement (cm) - Length 2.7 -Post Debridement (cm) - Width 7 -Post Debridement (cm) - Depth 2.7 -Total Square (Post) (cm) 18.9 -Area of Debridement (cm) - Length 2.7 -Area of Debridement (cm) - Width 7 -Total Square (Area) (cm) 18.9 -Tunneling No -Undermining/Tunneling No -Circular Undermining No -Wound/Ulcer Outcome Not Healed -Ulcer Cleansing Rinsed/ Irrigated with Saline -Foul Odor after Cleansing No -Bioengineered Tissue No -Bleeding Controlled with Pressure -Offloading Yes -Type of Offloading Knee Walker -Treatment Response Procedure Tolerated Well -Debridement - Subq, 1st 20sq cm Yes Pain Scale: 0-10 Numeric Is Patient Pain Free? Yes WC - Nurse 3 - General Ulcer D/C NN Start: 03/16/21 13:11 Freq: Status: Active Protocol: Activity Type Activity Date Activity User E-Sign Co-Sign Detail Recorded Client Recorded Date Recorded By Document 03/16/21 13:52 [facility] [id number] 03/16/21 13:53 [facility] 03/16/21 13:52 Wound Care Nurse 3 #8- R STUMP cluster -Ulcer Cleansing Rinsed/ Irrigated with Saline -Foul Odor after Cleansing No -Primary Dressing Applied Aquacel AG 4x4 -Primary Dressing Covered/Secured with Dry Gauze & Roll Gauze, Secured with Tape,Other -Other Covering DRSG PER RB RN -Aquacel AG 4x4 1 Right -Compression Wrap Jem Wrap Treatment Response Procedure Tolerated Well Pain Scale: 0-10 Numeric Is Patient Pain Free? 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 with fat layer exposed: CODE(S): T87.89 - Other complications of amputation stump; L97.912 - Non-pressure chronic ulcer of unspecified part of right lower leg with fat layer exposed (2) Below-knee amputation of right lower extremity: CODE(S): S88.111A - Complete traumatic amputation at level between knee and ankle, right lower leg, initial encounter (3) Diabetes mellitus: CODE(S): E11.9 - Type 2 diabetes mellitus without complications (4) Debility: CODE(S): R53.81 - Other malaise (5) 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 Debridement was performed as noted in the clinical panel. I am concerned about the extent of exposed bone and recommend he follows up with his surgeons team. I recommend the following Wound Care -Aquacel-Ag packed into the ulcer and covered with gauze daily. JEM wrap for compression. Wound cultures obtained during the last visit and he was advised to take doxycycline and Keflex. This is being followed by nurse practitioner, Audrey, and he was advised to continue with these. He was reassured there is no purulence or other local or systemic signs of illness today. However, his bone is exposed and I recommend an updated x-ray given his recent surgical status and recent culture findings. Encouraged protein intake, including supplemental intake. To keep pressure off of the surgical site at all times and to maintain a nonweightbearing status. His surgeons office has been contacted and he will follow-up next week or call sooner if he has any other updated questions or concerns. 22 minutes was spent on this encounter. This included face to face and non face to face care including preparing for the visit, reviewing the history, performing the exam, counseling and providing education to the patient, family, or caregiver, ordering medications/test/ procedures if indicated as documented, communicating with other healthcare providers, documenting information in the medical record, interpreting / sharing this information when indicated as documented, and care coordination. Note: [employer] speech recognition ski maker wood software was used to create portions of this document. Sound-alike and misspelled words, as well as other ski maker wood errors may be contained in the documentation.
--- NOTE | 2021-03-21 12:20 | RAD_ITS ---
STUDY: X-RAY - RIGHT TIBIA AND FIBULA REASON FOR EXAM: Male, 75 years old. ULCER TECHNIQUE: 2 view(s) of the tibia and fibula were obtained. COMPARISON: None. FINDINGS: The patient is status post below knee amputation of the tibia and fibula. Soft tissue swelling. There is evidence of soft tissue ulceration distal to the resected tibia anteriorly. Vascular calcification. RAD/Tibia & Fibula 2 Views IMPRESSION: Soft tissue swelling with ulceration just distal to the tibia. Vascular calcification. Electronically Signed: Ramon Lemus MD at 15:22 EDT , Service support ,
[2021-03-21 13:21] VITALS: BP 91/44; PULSE 78; RESP 20; TEMP 36.6; BMI 24.0
--- NOTE | 2021-03-21 17:19 | PN.PCM_ITS ---
History of Present Illness Date of Service: 03/21/21 Chief Complaint: Nonhealing ulcer right below knee amputation stump with exposed bone History of Wound: 75-year-old male with a left below knee amputation (prior healed wound) and right BKA on 01/10/21 due to complications with transmetatarsal amputation follows up for ulcer of lateral foot with recurrent infections. After he was discharged from the hospital, he was in the inpatient rehab unit and then transferred to TCU. He was discharged home on 02/11/21. Wound care - Aquacel-Ag placed daily after washing the stump with soap and water. Continue compression with JEM wrap. Hgb/A1c was 6.9 on 12/01/20. Prealbumin was 13.5 on 01/11/21. Wound culture from 03/01/21 showed MRSE and Corynebacterium amycolatum. He is currently on Doxycycyline. Operative Pathology from 01/10/21 was negative for osteomyelitis. He had a preoperative culture on 12/01/20. It showed MRSA and Pseudomonas aeroginosa. He was treated with Doxycycline. He states he is a little worried because the left BKA stump also developed a nonhealing ulcer that healed after a revision surgery. Today he has no fever. His appetite is ok. Progress of Wound: Nonhealing ulcer right BKA stump with exposed bone is stable. Objective Data Objective Data Vital Signs: Vital Signs Temp Pulse Resp BP 97.8 F 78 20 H 91/44 L 03/21/21 13:21 03/21/21 13:21 03/21/21 13:21 03/21/21 13:21 Oxygen Delivery Method Room Air Body Mass Index (BMI) 24.0 Lab / Micro Data Attestation: I reviewed the patient's lab results. Charges/Coding Addendum Addendum: Wound Center Charges CPT - 87777 ICD-10 -T87.89, Z86.14, Z86.19, M86.9, Z89.511, Z89.512, E11.9, E13.51, Z87.891 Physical Exam Narrative General - Alert and Oriented HEENT - PERRL. EOMI. Neck - Supple and nontender. No cervical adenopathy. Abdomen - Soft and nondistended. Extremities - He has a nonhealing ulcer right BKA stump with exposed bone. Surrounding soft tissue shows good granulation tissue. Mild swelling. Neuro - CN II-XII grossly intact. Psych - Normal mood and affect. Debridement Note Debridement Note Wound debrided: #8 Right below knee amputation stump. Laterality: Right Wound Grade/Stage: 3. Type of Debridement: Excisional debridement Anesthesia Used: 4% Lidocaine Solution and - Depth: Down to and including healthy tissue, in the subcutaneous layer, to muscle and to bone (bone is exposed but not debrided.) Percentage of wound debrided: 100 Instrument Used: 5mm curette Tissue Removed: subcutaneous tissue and muscle. Severity: Fat Layer Exposed (muscle is exposed. bone is exposed but not debrided.) Amount of bleeding with debridement: Mild Bleeding Controlled with: Pressure and Compression and gauze Patient tolerated procedure: Patient tolerated procedure well and Patient did not tolerate procedure well Post-Debridement Measurements and Additional Note: Post-Debridement Measurements/Treatment - Nurse 1 - General Ulcer Assessment Start: 03/16/21 13:11 Freq: Status: Active Protocol: GREG Activity Type Activity Date Activity User E-Sign Co-Sign Detail Recorded Client Recorded Date Recorded By Document 03/16/21 13:11 [facility] [id number] 03/16/21 13:18 [facility] Document 03/21/21 13:21 DL [id number] 03/21/21 13:26 DL 03/16/21 03/21/21 13:11 13:21 - Today's Visit Information Type of service Follow-up Visit Follow-up Visit (Physician/E [employer]ORDINATOR (Physician/E [employer]ISING COORDINATOR ) ) Arrival Mode Wheelchair Wheelchair Transfer Assistance Other None Transfer Assist (Other) STAND BY Accompanied by Patient Identification Verified (Name & Yes Yes ) Patient Requires Transmission-Based No No Precautions Height and Weight Body Mass Index (BMI) 24.0 24.0 BMI Classification Normal Normal Temperature (97.8 F-99.1 F) 97.8 F Temperature Source Temporal Vital Signs Pulse Rate (60-100) 88 78 Pulse Location Monitor Monitor Respiratory Rate (12-18) 16 20 H Respiratory rate source Observation Observation Oxygen Delivery Method Room Air Blood Pressure (90/60-120/80) 110/60 91/44 L Blood Pressure Mean (mm Hg) 76 59 Source Monitor Monitor Position Sitting Blood Pressure Location Left Arm History Since Last Visit- (Skip if this is Patient's initial visit) Have you changed medications since your No No last visit? Any new allergies or adverse reactions No No Had a fall/change in ADL's that may No No increase risk of falls Signs or symptoms of abuse and/or No No neglect since last visit Have you been in the hospital since your No No last visit? Has dressing in place as prescribed Yes Yes Has compression in place as prescribed Yes Yes Has offloadiing in place as prescribed N/A Yes Experienced any changes in pain level or No No management Pain Scale: 0-10 Numeric Is Patient Pain Free? Yes Yes WC - Nurse 1 - General Ulcer Measurement Start: 03/16/21 13:11 Freq: Status: Active Protocol: Activity Type Activity Date Activity User E-Sign Co-Sign Detail Recorded Client Recorded Date Recorded By Document 03/16/21 13:11 [facility] [id number] 03/16/21 13:18 [facility] Document 03/21/21 13:21 DL [id number] 03/21/21 13:26 DL 03/16/21 03/21/21 13:11 13:21 Wound Center Nurse 1 #8- R STUMP cluster -Combined with other wound No -Current Size (cm) - Length 3.2 3.3 -Current Size (cm) - Width 7.2 7.7 -Current Size (cm) - Depth 1.1 3.5 -Total Square Cm 23.04 25.41 -Date of Last Picture (Recall this 03/16/21 field) -Photo Taken Yes No -Epithelialization None Present -Tunneling No -Undermining/Tunneling Yes -Undermining/Tunneling Starts (O'clock 10 ) -Undermining/Tunneling Ends (O'clock) 11 -Maximum Distance (cm) 0.6 -Undermining/Tunneling Starts #2 (O' 12 clock) -Undermining/Tunneling Ends #2 (O' 1 clock) -Maximum Distance #2 (cm) 0.3 -Circular Undermining No -Exudate Amt Large Medium -Exudate Type Serosanguineous Serosanguineous -Wound Margin Distinct, Distinct, Outline Outline Attached Attached -Granulation Amt Small (1-33%) Medium (34-66%) -Granulation Quality Red Red -Slough/Fibrin Yes -Necrosis Amt Large (67-100%) Medium (34-66%) -Necrotic Tissue Type Adherent Slough Adherent Slough -Structure Exposed N/A -Texture (Allison-wound Skin Appearance) Assessed, Scarring Scarring -Moisture (Allison-wound Skin Appearance) Assessed,Dry/ No Abnormality Scaly -Color (Allison-wound Skin Appearance) Assessed No Abnormality -Temperature (Allison-wound Skin No Abnormality No Abnormality Appearance) (Pt Warm) (Pt Warm) -Tenderness on Palpation (Allison-wound Yes No Skin Appearance) -Ulcer Cleansing Rinsed/ Rinsed/ Irrigated with Irrigated with Saline Saline -Foul Odor after Cleansing No No -Anesthetic Used 5% Lidocaine 4% Lidocaine Gel Solution WC - Nurse 2 - General Ulcer CM Notes Start: 03/16/21 13:11 Freq: Status: Active Protocol: Activity Type Activity Date Activity User E-Sign Co-Sign Detail Recorded Client Recorded Date Recorded By Document 03/16/21 13:27 [id number] 03/16/21 13:32 Document 03/21/21 13:38 [id number] 03/21/21 13:44 03/16/21 03/21/21 13:27 13:38 Wound Center Nurse 2 #8- R STUMP cluster -Time 13:27 13:38 -Correct Patient Yes Yes -Correct Side, Site, Position Yes Yes -Correct Procedure Yes Yes -Procedure Performed Yes Yes -Type of Procedure Debridement Incision & Drainage -Clinical Debridement Subcutaneous Muscle / Fascia -Tissue Removed Subcutaneous Muscle -Post Debridement (cm) - Length 2.7 4 -Post Debridement (cm) - Width 7 7.5 -Post Debridement (cm) - Depth 2.7 2.6 -Total Square (Post) (cm) 18.9 30.0 -Area of Debridement (cm) - Length 2.7 4 -Area of Debridement (cm) - Width 7 7.5 -Total Square (Area) (cm) 18.9 30.0 -Tunneling No No -Undermining/Tunneling No No -Circular Undermining No No -Wound/Ulcer Outcome Not Healed Not Healed -Ulcer Cleansing Rinsed/ Rinsed/ Irrigated with Irrigated with Saline Saline -Foul Odor after Cleansing No No -Bioengineered Tissue No No -Bleeding Controlled with Pressure Pressure -Offloading Yes Yes -Type of Offloading Knee Walker Knee Walker -Treatment Response Procedure Procedure Tolerated Well Tolerated Well -Debridement - Subq, 1st 20sq cm Yes -Debridement - Muscle / Fascia, 1st Yes 20sq cm -Debridement, Muscle/Fascia, ea addt'l 1 20sq cm or part thereof Pain Scale: 0-10 Numeric Is Patient Pain Free? Yes WC - Nurse 3 - General Ulcer D/C NN Start: 03/16/21 13:11 Freq: Status: Active Protocol: Activity Type Activity Date Activity User E-Sign Co-Sign Detail Recorded Client Recorded Date Recorded By Document 03/16/21 13:52 [facility] [id number] 03/16/21 13:53 [facility] Document 03/21/21 14:00 KR [id number] 03/21/21 14:00 KR 03/16/21 03/21/21 13:52 14:00 Wound Care Nurse 3 #8- R STUMP cluster -Ulcer Cleansing Rinsed/ Rinsed/ Irrigated with Irrigated with Saline Saline -Foul Odor after Cleansing No -Primary Dressing Applied Aquacel AG 4x4 Aquacel AG 4x4 -Primary Dressing Covered/Secured with Dry Gauze & Dry Gauze, Roll Gauze, Secured with Secured with Tape Tape,Other -Other Covering DRSG PER RB RN -Aquacel AG 4x4 1 1 Right -Compression Wrap Jem Wrap Treatment Response Procedure Tolerated Well Pain Scale: 0-10 Numeric Is Patient Pain Free? 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: CODE(S): T87.89 - Other complications of amputation stump; L97.919 - Non- pressure chronic ulcer of unspecified part of right lower leg with unspecified severity (2) Personal history of Methicillin resistant Staphylococcus aureus infection: CODE(S): Z86.14 - Personal history of Methicillin resistant Staphylococcus aureus infection (3) History of MDR Pseudomonas aeruginosa infection: CODE(S): Z86.19 - Personal history of other infectious and parasitic diseases (4) Osteomyelitis, unspecified: CODE(S): M86.9 - Osteomyelitis, unspecified (5) Status post below knee amputation of right lower extremity: CODE(S): Z89.511 - Acquired absence of right leg below knee (6) History of below-knee amputation of left lower extremity: CODE(S): Z89.512 - Acquired absence of left leg below knee (7) Diabetes mellitus: CODE(S): E11.9 - Type 2 diabetes mellitus without complications (8) Peripheral vascular disease due to secondary diabetes: CODE(S): E13.51 - Other specified diabetes mellitus with diabetic peripheral angiopathy without gangrene (9) Former smoker: CODE(S): Z87.891 - Personal history of nicotine dependence PLAN: Continue Silver dressing changes until the VAC is approved. Discussed with the patient that the VAC will help the healing process by removing edema and decreasing the swelling. Recent wound culture on 03/01/21 showed MRSE, and Corynebacterium amycolatum. He was placed on Doxycycline and will continue it. HgbA1c was 6.9 and 12/01/20. For any elective revision surgery to close the wound over the bone the HgbA1c needs to be less than 8. He needs another level drawn before any surgery is done. With the amount of swelling present, it is impossible to close the wound without shortening the stump. Shortening a little is ok because the prosthesis can adapt. The problem occurs when extensive tissue is removed. Then the BKA stump is too short as there is too much instability with the prosthesis in that instance and then a AKA would need to be done. I want to see much more swelling resolved and the inflammation in the skin edges before proceed with revision of the stump. I should be able to shorten the exposed bone at the time of revision and be able to close the skin. Hopefully it should still be acceptable as a BKA prosthesis. Anticipate 3-6 months before proceeding with revision surgery. In the meantime, I would like to see more granulation tissue over the bone, if possible. Bone will be sent to Pathology to evaluate for osteomyelitis. If positive he will need extermination inspector antibiotics. I will have to debride the flap as well in order to close the stump ulcer. I don't want to remove too much as it will make the prosthesis problematic over time as it will press on the stump skin without much padding and pain develops from the pressure of the bone on the skin and prosthesis. Over time ulceration may occur. Followup one week.
== END 2021-03-31 23:59 ==
LOC: WC 13:00
PROVIDERS: PCP Family Medicine; Visit Provider Nurse Practitioner Family
DX: E11.621 Type 2 diabetes mellitus with foot ulcer (principal); T87.89 Other complications of amputation stump; L97.812 Non-pressure chronic ulcer of other part of right lower leg with fat layer exposed; R53.81 Other malaise; E11.51 Type 2 diabetes mellitus with diabetic peripheral angiopathy without gangrene; E11.69 Type 2 diabetes mellitus with other specified complication; M86.9 Osteomyelitis, unspecified; Z89.511 Acquired absence of right leg below knee; Z86.14 Personal history of Methicillin resistant Staphylococcus aureus infection; Z87.891 Personal history of nicotine dependence
CPT/HCPCS: 11042; 11043; 11046; 73590

== ENCOUNTER 2021-04-03 09:41 | Emergency (ER) | payer MEDICARE, OTHER, SELFPAY ==
[2021-04-03 09:43] VITALS: BP 107/53; PULSE 78; RESP 17; TEMP 36.4; O2SAT 100; BMI 22.3
--- NOTE | 2021-04-03 09:58 | ED.RN ---
Patient had similar feeling in past and was found to have wire from cabg pressing in esophagus. He states he is having the same feeling now. Denies difficulty with breathing, swallowing or talking.
--- NOTE | 2021-04-03 10:30 | RAD_ITS ---
STUDY: X-RAY - SOFT TISSUE NECK REASON FOR EXAM: Male, 75 years old. Possible esophageal foreign body TECHNIQUE: 2 view(s) of the neck were obtained. COMPARISON: None. FINDINGS: Normal visualized nasopharynx, oropharynx, hypopharynx. Normal epiglottis. Normal visualized subglottic tracheal air column. Normal prevertebral soft tissue structures. Mild degenerative changes in the cervical spine. No demonstrated definite radiopaque foreign body. Atherosclerotic calcifications in the region of the carotid arteries bilaterally. RAD/Neck for Soft Tissue IMPRESSION: No demonstrated definite radiopaque foreign body. Electronically Signed: Leonid Forman MD at 10:49 EDT Tel , Service support ,
--- NOTE | 2021-04-03 10:30 | RAD_ITS ---
STUDY: X-RAY CHEST REASON FOR EXAM: Male, 75 years old. ? Esophageal foreign body TECHNIQUE: Frontal and lateral views of the chest. COMPARISON: 12/08/2020. FINDINGS: Dual-chamber left-sided cardiac pacer device in stable position. Prominent markings in lung bases likely chronic. Blunting of the costophrenic angles. No new infiltrate is seen. 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 Normal mediastinum and sandra. Normal visualized pulmonary arteries. Atherosclerotic calcifications of the aortic arch. Unchanged osseous structures. There is no demonstrated abnormality of the visualized soft tissue structures of the upper abdomen. RAD/Chest PA and Lateral IMPRESSION: Prominent markings in the bases probably chronic. No demonstrated radiopaque foreign body on this examination. Electronically Signed: Leonid Forman MD at 10:47 EDT Tel , Service support ,
--- NOTE | 2021-04-03 10:44 | EX.ED.DYSGE1 ---
HPI History of Present Illness Chief Complaint: Foreign Body Informant: patient Narrative Narrative: Patient presents with concern for migration of one of the wires from his bypass surgery. He states that earlier this year they did x-rays for possible foreign body in the neck. They saw a wire that had migrated from his prior bypass surgery that they thought may have been causing this. I looked at those reports. It looks like this was not a change from his prior x-ray though. When he had those symptoms it was on the left side. Nothing was done about it as it was felt that this was not appropriate to do surgery due to his overall level of health. Yesterday morning patient was taking his medications. He states he normally takes these with applesauce to make them easier to swallow. He did not do that. He feels as though one of the pills possibly Tylenol got stuck in the right side of his neck. This is opposite of where his loose wire was found earlier this year. He is able to swallow. It is just a bit sore there. No fevers or chills. No vomiting. No other area of discomfort. No chest pain or trouble breathing. Nothing specifically makes it better or worse. [facility] Medical History Amputation of right foot Anemia Below-knee amputation of left lower extremity Biventricular implantable cardioverter-defibrillator (ICD) in situ Cardiology follow-up encounter Cellulitis of right lower extremity Chronic obstructive pulmonary disease Chronic pain Chronic systolic congestive heart failure COPD (chronic obstructive pulmonary disease) Coronary artery disease Coronary artery disease Coronary artery disease involving [place] coronary artery of [place] heart Delayed wound healing Depression Diabetes Diabetes mellitus type 2 with atherosclerosis of arteries of extremities Diaphragm paralysis Diarrhea Difficulty balancing Difficulty chewing Difficulty swallowing Fatigue Former smoker Former smoker Gastric reflux Gastroesophageal reflux disease Glaucoma Glaucoma High cholesterol History of below-knee amputation of left lower extremity History of edema History of irregular heartbeat History of MDR Pseudomonas aeruginosa infection History of pacemaker History of steroid therapy History of stress test Hyperlipidemia Hypothyroidism Insulin dependent diabetes mellitus Ischemic cardiomyopathy Ischemic cardiomyopathy with implantable cardioverter-defibrillator (ICD) Macrocytic anemia Malnutrition Nausea vomiting and diarrhea Non-healing amputation site Non-pressure chronic ulcer of other part of right foot with fat layer exposed Non-pressure chronic ulcer of other part of right foot with muscle involvement without evidence of necrosis Non-pressure chronic ulcer of right calf limited to breakdown of skin 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 On home oxygen therapy 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 Other specified peripheral vascular diseases Peripheral arterial occlusive disease Peripheral vascular disease due to secondary diabetes Personal history of Methicillin resistant Staphylococcus aureus infection Personal history of Methicillin resistant Staphylococcus aureus infection Pseudomonas aeruginosa infection Pulmonary HTN SOB (shortness of breath) Status post below knee amputation of right lower 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 Tachycardia Type 2 diabetes mellitus with diabetic polyneuropathy Ulcer of right foot with fat layer exposed Ulcer of right foot with muscle involvement without evidence of necrosis Ulcer of right foot with necrosis of bone Ulcer of right foot with necrosis of muscle Ulcer of right lower extremity with fat layer exposed Ulcer of right lower extremity with fat layer exposed Uses wheelchair Wears glasses Wears hearing aid Wears hearing aid in both ears Home Medications prednisone 2.5 mg tablet 2.5 mg PO DAILY 08/05/19 [History Last Taken 08/13/20] aspirin 81 mg tablet,delayed release 81 mg PO DAILY 12/17/19 [History Last Taken 08/13/20] clopidogrel 75 mg PO DAILY 08/06/20 [History Last Taken 08/13/20] pravastatin 40 mg PO QHS 08/06/20 [History Last Taken 08/13/20] ammonium lactate 227 g TP DAILY 01/12/21 [History Last Taken Unknown] acetaminophen 1,000 mg PO Q8 #0 tab 01/28/21 [Rx Last Taken 01/10/21 05:00 1000 MG] bisacodyl 10 mg NJ .PRN X 1 PRN #0 ea 01/28/21 [Rx Last Taken Unknown] bupropion HCl 150 mg PO DAILY 01/28/21 [History Last Taken Unknown] levothyroxine 200 mcg PO DAILY #0 tab 01/28/21 [Rx Last Taken 08/13/20] citalopram 10 mg PO DAILY 30 Days #30 tab 02/07/21 [Rx Last Taken Unknown] gabapentin 100 mg PO BIDCM 30 Days #60 cap 02/07/21 [Rx Last Taken Unknown] insulin glargine [Lantus Solostar U-100 Insulin] 15 units SUBCUT QHS 30 Days #4.5 ml 02/07/21 [Rx Last Taken Unknown] insulin lispro [Humalog KwikPen Insulin] 5 unit SUBCUT TIDAC 30 Days #4.5 ml 02/07/21 [Rx Last Taken Unknown] magnesium chloride [Mag 64] 128 mg PO BID 30 Days #60 tab 02/07/21 [Rx Last Taken Unknown] ondansetron HCl [Zofran] 4 mg PO Q8H 30 Days #90 tab 02/07/21 [Rx Last Taken Unknown] oxycodone 5 mg PO Q4H PRN PRN 3 Days #18 tab 02/07/21 [Rx Last Taken Unknown] pantoprazole 40 mg PO DAILY 30 Days #30 tab 02/07/21 [Rx Last Taken Unknown] polysaccharide iron complex [Ferrex 150] 150 mg PO DAILYCM 30 Days #30 cap 02/07/21 [Rx Last Taken Unknown] tizanidine 2 mg PO 1400 30 Days #30 tab 02/07/21 [Rx Last Taken Unknown] tizanidine 4 mg PO QHS 30 Days #60 tab 02/07/21 [Rx Last Taken Unknown] bumetanide 1 mg tablet 1 mg PO .PRN PRN tab 02/21/21 [History Last Taken Unknown] furosemide 40 mg tablet 40 mg PO .PRN PRN tab 02/21/21 [History Last Taken Unknown] lisinopril 2.5 mg tablet 2.5 mg PO DAILY 02/21/21 [History Last Taken Unknown] doxycycline hyclate 100 mg capsule 100 mg PO BID 21 Days #42 cap 03/04/21 [Rx Last Taken Unknown] carvedilol 3.125 mg tablet 3.125 mg PO BID #60 tab 03/17/21 [Rx Last Taken Unknown] Allergy/AdvReac Type Severity Reaction Status Date / Time amiodarone Allergy Severe pulmonary Verified 04/03/21 09:42 fibrosis sotalol Allergy Severe intolerant Verified 04/03/21 09:42 levofloxacin [From Levaquin] Allergy Pain in Verified 04/03/21 09:42 joints gabapentin AdvReac Diarrhea Verified 04/03/21 09:42 latex AdvReac Rash Verified 04/03/21 09:42 Family History Sister Diabetes Mother Heart disease Valve replacement Father Diabetes Other History of MDR Pseudomonas aeruginosa infection Surgical History History of amputation of toe History of bilateral cataract extraction History of cardiac catheterization History of cholecystectomy History of coronary artery bypass graft (~2003) History of coronary artery stent placement (~03/2019) History of endoscopy History of implantable cardiac defibrillator (ICD) History of left below knee amputation (~2014) Hx of amputation Presence of permanent cardiac pacemaker (~08/2020) Status post below-knee amputation of left lower extremity Social History household members: spouse Smoking Status: Former smoker quit date: 07/02/98 pack-years: 34 alcohol intake: current alcohol intake frequency: holidays/special occasions only substance use type: does not use caffeine: Yes Type: coffee Number of servings: 2 ROS ROS ED Constitutional Constitutional ED: Denies chills or fever(s) Eyes Eyes: Denies change in vision ENT ENT ED: Reports sore throat; Denies rhinorrhea Cardiovascular Cardiovascular: Denies chest pain, palpitations or racing heartbeat Respiratory/Chest Respiratory/Chest: Denies cough or dyspnea Gastrointestinal Gastrointestinal: Denies abdominal pain, nausea or vomiting Musculoskeletal Musculoskeletal: Reports neck pain; Denies arthralgias, back pain or myalgias Integumentary Denies rash Neurologic Neurologic: Denies headache(s) or weakness Endocrine Endocrinology: Denies polydipsia or polyuria Allergic/Immunologic Allergic/Immunologic ED: Denies mouth swelling or tongue swelling EXAM Physical Exam Const Vital Signs: 04/03/21 09:43 04/03/21 09:55 Temperature 97.6 F L Temperature Source Temporal Pulse Rate 78 Respiratory Rate 17 Respiratory Effort Normal Blood Pressure 107/53 L Blood Pressure Mean 71 Pulse Ox 100 Oxygen Delivery Method Room Air Patient looks a little pale and chronically ill. However he states he has chronic anemia. He is no different than normal. He does not look toxic. He is very pleasant. He looks quite comfortable. Positive well nourished and well developed General Appearance ED: well developed and NAD HEENT HEENT Narrative: Patient points to the vallecula on the right is the area of his discomfort. I see nothing intraorally. His voice is normal. Handle secretions normally. No trouble swallowing. Negative for trauma or tenderness Eyes EOMs intact bilaterally Neck no JVD Resp normal respiratory effort and clear to auscultation bilaterally Resp Narrative: Patient has ICD and prior bypass surgery. Cardio regular rate and regular rhythm GI normal to inspection, nondistended, normoactive bowel sounds and non-tender Palpation: soft Extremity Extremity Narrative: Bilateral of the knee amputations. Neuro oriented x3 Sensorium / Orientation: alert Psych mental status grossly normal Skin no rashes or lesions noted MDM MDM MDM Narrative Medical decision making narrative: I looked the patient's films and read the report. He has the metallic foreign body consistent with a broken sternal wire visible in the base of the left neck. However, it does not look like there is an interval change. No other foreign body. I rechecked the patient. He feels well. I think he likely has irritation from a pill. Its over 24 hours. This should've dissolved. This may take several days for the symptoms to completely resolve though. He is able to eat and drink. He will follow up with his physician. Return with any change or worsening of symptoms. Radiography Diagnostic Testing: Radiology Impression Chest X-Ray 04/03/21 10:30 IMPRESSION: Prominent markings in the bases probably chronic. No demonstrated radiopaque foreign body on this examination. Electronically Signed: Leonid Forman MD at 10:47 EDT Tel , Service support , Soft Tissue Neck X-Ray 04/03/21 10:30 IMPRESSION: No demonstrated definite radiopaque foreign body. Electronically Signed: Leonid Forman MD at 10:49 EDT Tel , Service support , Discharge Plan Triage Chief Complaint: Foreign Body ED Provider: Alcon Galloway Dx/Rx/DC Orders Clinical Impression: Pill esophagitis Instructions: ED Esophageal Foreign Body, Resolved Prescriptions: No Action prednisone 2.5 mg tablet 2.5 mg PO DAILY RF: 0 aspirin [Adult Aspirin Regimen] 81 mg tablet,delayed release (DR/EC) 81 mg PO DAILY RF: 0 lisinopril 2.5 mg tablet 2.5 mg PO DAILY RF: 0 bumetanide 1 mg tablet 1 mg PO .PRN PRN (Reason: SOB) RF: 0 furosemide [Lasix] 40 mg tablet 40 mg PO .PRN PRN (Reason: weight gain/ SOB) RF: 0 pravastatin 40 MG tablet 40 mg PO QHS RF: 0 clopidogrel 75 MG tablet 75 mg PO DAILY RF: 0 ammonium lactate 396 GM lotion 227 g TP DAILY RF: 0 bisacodyl 10 mg Suppository 10 mg NJ .PRN X 1 PRN (Reason: Constipation) Qty: 0 RF: 0 acetaminophen 500 mg tablet 1,000 mg PO Q8 Qty: 0 RF: 0 levothyroxine 200 mcg tablet 200 mcg PO DAILY Qty: 0 RF: 0 bupropion HCl 150 mg tablet extended release 24 hr 150 mg PO DAILY RF: 0 tizanidine 2 mg Tablet 4 mg PO QHS 30 Days Qty: 60 RF: 0 tizanidine 2 mg Tablet 2 mg PO 1400 30 Days Qty: 30 RF: 0 insulin lispro [Humalog KwikPen Insulin] 100 unit/mL Insulin Pen 5 unit subcut TIDAC 30 Days Qty: 4.5 RF: 0 Lantus Solostar U-100 Insulin 100 unit/mL (3 mL) Insulin Pen 15 units subcut QHS 30 Days Qty: 4.5 RF: 0 polysaccharide iron complex [Ferrex 150] 150 mg iron Capsule 150 mg PO DAILYCM 30 Days Qty: 30 RF: 0 citalopram 10 mg tablet 10 mg PO DAILY 30 Days Qty: 30 RF: 0 ondansetron HCl [Zofran] 4 mg tablet 4 mg PO Q8H 30 Days Qty: 90 RF: 0 pantoprazole 40 mg tablet,delayed release (DR/EC) 40 mg PO DAILY 30 Days Qty: 30 RF: 0 gabapentin 100 mg capsule 100 mg PO BIDCM 30 Days Qty: 60 RF: 0 oxycodone 5 mg Tablet 5 mg PO Q4H PRN PRN (Reason: Pain Score 6-10) 3 Days Qty: 18 RF: 0 magnesium chloride [Mag 64] 64 mg tablet,delayed release (DR/EC) 128 mg PO BID 30 Days Qty: 60 RF: 0 doxycycline hyclate 100 mg capsule 100 mg PO BID 21 Days Qty: 42 RF: 1 carvedilol 3.125 mg tablet 3.125 mg PO BID Qty: 60 RF: 11 Primary Care Provider: Jcarlos Glasgow Referrals: Jcarlos Glasgow MD [Primary Care Provider] - 3-5 Days if not improving Disposition Disposition: Home, Self Care
[2021-04-03 12:03] VITALS: BP 118/61; PULSE 74; RESP 16
== END 2021-04-03 12:04 | disposition home or self-care (01) ==
PROVIDERS: Emergency Provider Emergency Medicine; PCP Family Medicine
DX: K20.80 Other esophagitis without bleeding (principal); Z89.511 Acquired absence of right leg below knee; Z87.891 Personal history of nicotine dependence; Z95.0 Presence of cardiac pacemaker; Z86.14 Personal history of Methicillin resistant Staphylococcus aureus infection
CPT/HCPCS: 70360; 71046; 99282

== ENCOUNTER 2021-04-18 13:30 | Outpatient (RCR) | payer MEDICARE, OTHER, SELFPAY ==
[2021-04-01 00:33] VITALS: BP 91/44; PULSE 78; RESP 20; TEMP 36.6; BMI 24.0
[2021-04-04 13:22] VITALS: BP 138/62; PULSE 82; TEMP 36.2; BMI 24.0
--- NOTE | 2021-04-04 15:05 | PN.PCM_ITS ---
History of Present Illness Date of Service: 04/04/21 Chief Complaint: Nonhealing ulcer right below knee amputation stump with exposed bone History of Wound: 75-year-old male with a left below knee amputation (prior healed wound) and right BKA on 01/10/21 due to complications with transmetatarsal amputation follows up for ulcer of lateral foot with recurrent infections. After he was discharged from the hospital, he was in the inpatient rehab unit and then transferred to TCU. He was discharged home on 02/11/21. Wound care - Wound VAC holiday for one week while he visits family out of town. He will use Dakin's 0.25% moistened gauze covered with ABD daily and as needed. Continue compression with JEM wrap. Hgb/A1c was 6.9 on 12/01/20. Prealbumin was 13.5 on 01/11/21. Wound culture from 03/01/21 showed MRSE and Corynebacterium amycolatum. He is currently on Doxycycyline. Operative Pathology from 01/10/21 was negative for osteomyelitis. He had a preoperative culture on 12/01/20. It showed MRSA and Pseudomonas aeroginosa. He was treated with Doxycycline. He states he is a little worried because the left BKA stump also developed a nonhealing ulcer that healed after a revision surgery. Today he has no fever. His appetite is ok. Progress of Wound: Stable. Objective Data Objective Data Vital Signs: Vital Signs Temp Pulse Resp BP 97.1 F L 82 20 H 138/62 H 04/04/21 13:22 04/04/21 13:22 04/01/21 00:33 04/04/21 13:22 Body Mass Index (BMI) 24.0 Charges/Coding Procedures Integumentary [id number]: [id number] Global Visit Physical Exam Const alert and oriented x3 General Appearance: cooperative HEENT normocephalic Resp normal respiratory effort Cardio regular rhythm GI Palpation: soft Extremity normal capillary refill Skin Skin Narrative: Skin is sallow in appearance. Wound Narrative: Right BKA stump ulcer with bone exposure Neuro CN's II-XII intact bilaterally Psych Appearance: well kempt Debridement Note Debridement Note Wound debrided: BKA ulcer Laterality: Right Type of Debridement: Excisional debridement Anesthesia Used: 5% Lidocaine Gel Depth: Down to and including healthy tissue, in the subcutaneous layer, to muscle and to bone Percentage of wound debrided: 100 Instrument Used: 7mm curette Tissue Removed: Subcutaneous tissue and slough into the muscle with bone exposure Severity: Fat Layer Exposed Amount of bleeding with debridement: Mild Bleeding Controlled with: Pressure and Compression and gauze Patient tolerated procedure: Patient tolerated procedure well Post-Debridement Measurements and Additional Note: Post-Debridement Measurements/Treatment WC - Nurse 1 - General Ulcer Assessment Start: 04/04/21 13:21 Freq: Status: Active Protocol: GREG Activity Type Activity Date Activity User E-Sign Co-Sign Detail Recorded Client Recorded Date Recorded By Document 04/04/21 13:22 CAROL [id number] 04/04/21 13:24 AK 04/04/21 13:22 GEOVANNI - Today's Visit Information Type of service Follow-up Visit (Physician/ELECTRIC WHEELCHAIR REPAIRER ) Arrival Mode Wheelchair Patient Identification Verified (Name & Yes ) Patient Requires Transmission-Based No Precautions Safety Precautions NA Height and Weight Body Mass Index (BMI) 24.0 BMI Classification Normal Vital Signs Temperature (97.8 F-99.1 F) 97.1 F L Temperature Source Temporal Pulse Rate (60-100) 82 Pulse Location Monitor Blood Pressure (90/60-120/80) 138/62 H Blood Pressure Mean (mm Hg) 87 Source Monitor History Since Last Visit- (Skip if this is Patient's initial visit) Have you changed medications since your No last visit? Any new allergies or adverse reactions No Had a fall/change in ADL's that may No increase risk of falls Signs or symptoms of abuse and/or No neglect since last visit Have you been in the hospital since your No last visit? Has dressing in place as prescribed No Has compression in place as prescribed Yes Has offloadiing in place as prescribed N/A Experienced any changes in pain level or No management - Nurse 1 - General Ulcer Measurement Start: 04/04/21 13:21 Freq: Status: Active Protocol: Activity Type Activity Date Activity User E-Sign Co-Sign Detail Recorded Client Recorded Date Recorded By Document 04/04/21 13:22 CAROL [id number] 04/04/21 13:24 AK 04/04/21 13:22 Wound Center Nurse 1 #8- R STUMP cluster -Combined with other wound No -Current Size (cm) - Length 4.6 -Current Size (cm) - Width 7.2 -Current Size (cm) - Depth 2 -Total Square Cm 33.12 -Photo Taken No -Epithelialization Medium 34-66% -Tunneling Yes -Tunneling Position (O'clock) 11 -Tunneling Distance (cm) 2.2 -Undermining/Tunneling No -Circular Undermining No -Classification - Thickness Full Thickness with Exposed Support Structure -Change in Wound Grade/Stage No -Exudate Amt Medium -Exudate Type Serosanguineous -Wound Margin Distinct, Outline Attached -Granulation Amt Large (67-100%) -Granulation Quality Hyper- granulation, [place],Red -Slough/Fibrin No -Necrosis Amt Large (67-100%) -Necrotic Tissue Type Adherent Slough -Structure Exposed Tendon,Fascia, Muscle,Bone -Texture (Allison-wound Skin Appearance) No Abnormality, Assessed -Moisture (Allison-wound Skin Appearance) No Abnormality, Assessed -Color (Allison-wound Skin Appearance) No Abnormality, Assessed -Temperature (Allison-wound Skin No Abnormality Appearance) (Pt Warm) -Tenderness on Palpation ([place]ison-wound No Skin Appearance) -Ulcer Cleansing Rinsed/ Irrigated with Saline -Foul Odor after Cleansing No -Anesthetic Used 4% Lidocaine Solution WC - Nurse 2 - General Ulcer CM Notes Start: 04/04/21 13:21 Freq: Status: Active Protocol: Activity Type Activity Date Activity User E-Sign Co-Sign Detail Recorded Client Recorded Date Recorded By Document 04/04/21 13:37 ISAURA [id number] 04/04/21 13:43 JF 04/04/21 13:37 Wound Center Nurse 2 -Time 13:37 -Correct Patient Yes -Correct Side, Site, Position Yes -Correct Procedure Yes -Procedure Performed Yes -Type of Procedure Debridement -Clinical Debridement Muscle / Fascia -Tissue Removed Subcutaneous, Muscle -Post Debridement (cm) - Length 4.5 -Post Debridement (cm) - Width 7.6 -Post Debridement (cm) - Depth 2.5 -Total Square (Post) (cm) 34.20 -Area of Debridement (cm) - Length 4.5 -Area of Debridement (cm) - Width 7.6 -Total Square (Area) (cm) 34.20 -Tunneling No -Undermining/Tunneling No -Circular Undermining No -Wound/Ulcer Outcome Not Healed -Ulcer Cleansing Rinsed/ Irrigated with Saline -Foul Odor after Cleansing No -Bioengineered Tissue No -Bleeding Controlled with Pressure -Offloading Yes -Type of Offloading Knee Walker -Treatment Response Procedure Tolerated Well -Debridement - Muscle / Fascia, 1st Yes 20sq cm -Debridement, Muscle/Fascia, ea addt'l 1 20sq cm or part thereof Pain Scale: 0-10 Numeric Is Patient Pain Free? Yes - Nurse 3 - General Ulcer D/C NN Start: 04/04/21 13:21 Freq: Status: Active Protocol: Activity Type Activity Date Activity User E-Sign Co-Sign Detail Recorded Client Recorded Date Recorded By Document 04/04/21 13:59 [facility] [id number] 04/04/21 14:00 [facility] 04/04/21 13:59 Wound Care Nurse 3 #8- R STUMP cluster -Ulcer Cleansing Rinsed/ Irrigated with Saline -Foul Odor after Cleansing No -Primary Dressing Applied Other -Other Dressing moist to dry -Primary Dressing Covered/Secured with Dry Gauze & Roll Gauze, Secured with Tape,Other -Other Covering abd Right -Compression Wrap Jem Wrap Treatment Response Procedure Tolerated Well Pain Scale: 0-10 Numeric Is Patient Pain Free? Yes - Visit Discharge Discharge Condition Stable Ambulatory Status Wheelchair Transportation Private Auto Accompanied by Assessment/Plan Assessment/Plan (1) 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 with fat layer exposed: CODE(S): T87.89 - Other complications of amputation stump; L97.912 - Non- pressure chronic ulcer of unspecified part of right lower leg with fat layer exposed (2) Personal history of Methicillin resistant Staphylococcus aureus infection: CODE(S): Z86.14 - Personal history of Methicillin resistant Staphylococcus aureus infection (3) History of MDR Pseudomonas aeruginosa infection: CODE(S): Z86.19 - Personal history of other infectious and parasitic diseases (4) Osteomyelitis, unspecified: CODE(S): M86.9 - Osteomyelitis, unspecified (5) Status post below knee amputation of right lower extremity: CODE(S): Z89.511 - Acquired absence of right leg below knee (6) History of below-knee amputation of left lower extremity: CODE(S): Z89.512 - Acquired absence of left leg below knee (7) 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: CODE(S): T87.89 - Other complications of amputation stump; L97.919 - Non- pressure chronic ulcer of unspecified part of right lower leg with unspecified severity (8) Diabetes mellitus: CODE(S): E11.9 - Type 2 diabetes mellitus without complications (9) Peripheral vascular disease due to secondary diabetes: CODE(S): E13.51 - Other specified diabetes mellitus with diabetic peripheral angiopathy without gangrene (10) Debility: CODE(S): R53.81 - Other malaise PLAN: Wound care - Wound VAC holiday for one week while he visits family out of town. He will use Dakin's 0.25% moistened gauze covered with ABD daily and as needed. Continue compression with JEM wrap. Recent wound culture on 03/01/21 showed MRSE, and Corynebacterium amycolatum. He was placed on Doxycycline and will continue it. HgbA1c was 6.9 and 12/01/20. For any elective revision surgery to close the wound over the bone the HgbA1c needs to be less than 8. He needs another level drawn before any surgery is done. With the amount of swelling present, it is impossible to close the wound without shortening the stump. Shortening a little is ok because the prosthesis can adapt. The problem occurs when extensive tissue is removed. Then the BKA stump is too short as there is too much instability with the prosthesis in that instance and then a AKA would need to be done. I want to see much more swelling resolved and the inflammation in the skin edges before proceed with revision of the stump. I should be able to shorten the exposed bone at the time of revision and be able to close the skin. Hopefully it should still be acceptable as a BKA prosthesis. Anticipate 3-6 months before proceeding with revision surgery. In the meantime, I would like to see more granulation tissue over the bone, if possible. Bone will be sent to Pathology to evaluate for osteomyelitis. If positive he will need middle or intermediate school principal antibiotics. I will have to debride the flap as well in order to close the stump ulcer. I don't want to remove too much as it will make the prosthesis problematic over time as it will press on the stump skin without much padding and pain develops from the pressure of the bone on the skin and prosthesis. Over time ulceration may occur. Followup one week.
[2021-04-18 13:34] VITALS: BP 104/41; PULSE 82; RESP 16; TEMP 36.1; BMI 24.0
--- NOTE | 2021-04-18 16:26 | PCM.WC.PN ---
History of Present Illness Date of Service: 04/18/21 Chief Complaint: Nonhealing ulcer right below knee amputation stump with exposed bone History of Wound: 75-year-old male with a left below knee amputation (prior healed wound) and right BKA on 01/10/21 due to complications with transmetatarsal amputation follows up for ulcer of lateral foot with recurrent infections. After he was discharged from the hospital, he was in the inpatient rehab unit and then transferred to TCU. He was discharged home on 02/11/21. Wound care - Wound VAC at 150 mmHg changed three times per week. Continue compression with JEM wrap. Hgb/A1c was 6.9 on 12/01/20. Prealbumin was 13.5 on 01/11/21. Wound culture from 03/01/21 showed MRSE and Corynebacterium amycolatum. He is currently on Doxycycyline. Operative Pathology from 01/10/21 was negative for osteomyelitis. He had a preoperative culture on 12/01/20. It showed MRSA and Pseudomonas aeroginosa. He was treated with Doxycycline. He states he is a little worried because the left BKA stump also developed a nonhealing ulcer that healed after a revision surgery. Today he has no fever. His appetite is ok. Progress of Wound: Stable. Objective Data Objective Data Vital Signs: Vital Signs Temp Pulse Resp BP 97.0 F L 82 16 104/41 L 04/18/21 13:34 04/18/21 13:34 04/18/21 13:34 04/18/21 13:34 Body Mass Index (BMI) 24.0 Charges/Coding Procedures Integumentary 111xxx-113xx: [id number] Alejandra musc/fascia 20 sq cm/< Add On Codes: 89163 Alejandra subq tissue add-on (x2) Physical Exam Const alert and oriented x3 General Appearance: cooperative HEENT normocephalic Resp normal respiratory effort GI Palpation: soft Extremity normal capillary refill General Extremity: edema Skin Skin Narrative: Skin color sallow Wound Narrative: Right BKA stump ulcer with muscle and bone exposure, ulcer is beefy pink. Neuro CN's II-XII intact bilaterally Psych Appearance: grossly normal Debridement Note Debridement Note Wound debrided: BKA stump ulcer Laterality: Right Wound Grade/Stage: Stage IV Type of Debridement: Excisional debridement Anesthesia Used: 5% Lidocaine Gel Depth: Down to and including healthy tissue, in the subcutaneous layer, to muscle and to bone Percentage of wound debrided: 100 Instrument Used: 7mm curette Tissue Removed: Subcutaneous tissue and slough into the muscle with bone exposure Severity: Fat Layer Exposed Amount of bleeding with debridement: Mild Bleeding Controlled with: Pressure Patient tolerated procedure: Patient tolerated procedure well Post-Debridement Measurements and Additional Note: Post-Debridement Measurements/Treatment WC - Nurse 1 - General Ulcer Assessment Start: 04/04/21 13:21 Freq: Status: Active Protocol: [email or web address] Activity Type Activity Date Activity User E-Sign Co-Sign Detail Recorded Client Recorded Date Recorded By Document 04/04/21 13:22 AK [id number] 04/04/21 13:24 AK Document 04/18/21 13:34 ML [id number] 04/18/21 13:36 ML 04/04/21 04/18/21 13:22 13:34 WC - Today's Visit Information Type of service Follow-up Visit Follow-up Visit (Physician/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 (Physician/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 ) ) Arrival Mode Wheelchair Wheelchair Transfer Assistance None Patient Identification Verified (Name & Yes Yes ) Patient Requires Transmission-Based No No Precautions Safety Precautions NA NA Finger Stick Blood Sugar(mg/dl) (if 174 indicated): Blood Sugar Stated by Patient Height and Weight Body Mass Index (BMI) 24.0 24.0 BMI Classification Normal Normal Vital Signs Temperature (97.8 F-99.1 F) 97.1 F L 97.0 F L Temperature Source Temporal Temporal Pulse Rate (60-100) 82 82 Pulse Location Monitor Monitor Respiratory Rate (12-18) 16 Respiratory rate source Observation Blood Pressure (90/60-120/80) 138/62 H 104/41 L Blood Pressure Mean (mm Hg) 87 62 Source Monitor Monitor Position Sitting Blood Pressure Location Left Arm History Since Last Visit- (Skip if this is Patient's initial visit) Have you changed medications since your No No last visit? Any new allergies or adverse reactions No No Had a fall/change in ADL's that may No No increase risk of falls Signs or symptoms of abuse and/or No No neglect since last visit Have you been in the hospital since your No No last visit? Has dressing in place as prescribed No Yes Has compression in place as prescribed Yes N/A Has offloadiing in place as prescribed N/A N/A Experienced any changes in pain level or No No management Pain Scale: 0-10 Numeric Is Patient Pain Free? Yes WC - Nurse 1 - General Ulcer Measurement Start: 04/04/21 13:21 Freq: Status: Active Protocol: Activity Type Activity Date Activity User E-Sign Co-Sign Detail Recorded Client Recorded Date Recorded By Document 04/04/21 13:22 AK [id number] 04/04/21 13:24 AK Document 04/18/21 13:34 ML [id number] 04/18/21 13:36 ML 04/04/21 04/18/21 13:22 13:34 Wound Center Nurse 1 #8- R STUMP cluster -Combined with other wound No No -Current Size (cm) - Length 4.6 4 -Current Size (cm) - Width 7.2 6.5 -Current Size (cm) - Depth 2 3 -Total Square Cm 33.12 26.0 -Photo Taken No -Epithelialization Medium 34-66% -Tunneling Yes -Tunneling Position (O'clock) 11 -Tunneling Distance (cm) 2.2 -Undermining/Tunneling No -Circular Undermining No -Classification - Thickness Full Thickness with Exposed Support Structure -Change in Wound Grade/Stage No -Exudate Amt Medium Medium -Exudate Type Serosanguineous Serosanguineous -Wound Margin Distinct, Distinct, Outline Outline Attached Attached -Granulation Amt Large (67-100%) Medium (34-66%) -Granulation Quality Hyper- granulation, Rosamond,Red -Slough/Fibrin No Yes -Necrosis Amt Large (67-100%) Medium (34-66%) -Necrotic Tissue Type Adherent Slough Adherent Slough -Structure Exposed Tendon,Fascia, Muscle,Bone -Texture (Allison-wound Skin Appearance) No Abnormality, Assessed Assessed -Moisture (Allison-wound Skin Appearance) No Abnormality, Assessed Assessed -Color (Allison-wound Skin Appearance) No Abnormality, Assessed Assessed -Temperature (Allison-wound Skin No Abnormality No Abnormality Appearance) (Pt Warm) (Pt Warm) -Tenderness on Palpation (Allison-wound No No Skin Appearance) -Ulcer Cleansing Rinsed/ Soap and Water Irrigated with Saline -Foul Odor after Cleansing No No -Anesthetic Used 4% Lidocaine 5% Lidocaine Solution Gel WC - Nurse 2 - General Ulcer CM Notes Start: 04/04/21 13:21 Freq: Status: Active Protocol: Activity Type Activity Date Activity User E-Sign Co-Sign Detail Recorded Client Recorded Date Recorded By Document 04/04/21 13:37 [id number] 04/04/21 13:43 Document 04/18/21 14:10 [id number] 04/18/21 14:12 04/04/21 04/18/21 13:37 14:10 Wound Center Nurse 2 #8- R STUMP cluster -Time 13:37 14:10 -Correct Patient Yes Yes -Correct Side, Site, Position Yes Yes -Correct Procedure Yes Yes -Procedure Performed Yes Yes -Type of Procedure Debridement Debridement -Clinical Debridement Muscle / Fascia Muscle / Fascia -Tissue Removed Subcutaneous, Muscle,Fascia Muscle -Post Debridement (cm) - Length 4.5 4 -Post Debridement (cm) - Width 7.6 7.8 -Post Debridement (cm) - Depth 2.5 2.5 -Total Square (Post) (cm) 34.20 31.2 -Area of Debridement (cm) - Length 4.5 4 -Area of Debridement (cm) - Width 7.6 7.8 -Total Square (Area) (cm) 34.20 31.2 -Tunneling No No -Undermining/Tunneling No No -Circular Undermining No No -Wound/Ulcer Outcome Not Healed Not Healed -Ulcer Cleansing Rinsed/ Rinsed/ Irrigated with Irrigated with Saline Saline -Foul Odor after Cleansing No No -Bioengineered Tissue No No -Bleeding Controlled with Pressure Pressure -Offloading Yes No -Type of Offloading Knee Walker -Treatment Response Procedure Procedure Tolerated Well Tolerated Well -Debridement - Muscle / Fascia, 1st Yes Yes 20sq cm -Debridement, Muscle/Fascia, ea addt'l 1 1 20sq cm or part thereof Pain Scale: 0-10 Numeric Is Patient Pain Free? Yes Yes WC - Nurse 3 - General Ulcer D/C NN Start: 04/04/21 13:21 Freq: Status: Active Protocol: Activity Type Activity Date Activity User E-Sign Co-Sign Detail Recorded Client Recorded Date Recorded By Document 04/04/21 13:59 [facility] [id number] 04/04/21 14:00 [facility] Document 04/18/21 14:26 DL [id number] 04/18/21 14:27 DL 04/04/21 04/18/21 13:59 14:26 Wound Care Nurse 3 #8- R STUMP cluster -Ulcer Cleansing Rinsed/ Rinsed/ Irrigated with Irrigated with Saline Saline -Foul Odor after Cleansing No No -Primary Dressing Applied Other -Other Dressing moist to dry moist gauze -Primary Dressing Covered/Secured with Dry Gauze & Dry Gauze & Roll Gauze, Roll Gauze, Secured with Secured with Tape,Other Tape -Other Covering abd Right -Compression Wrap Jem Wrap Treatment Response Procedure Procedure Tolerated Well Tolerated Well Pain Scale: 0-10 Numeric Is Patient Pain Free? 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: CODE(S): T87.89 - Other complications of amputation stump; L97.912 - Non-pressure chronic ulcer of unspecified part of right lower leg with fat layer exposed (2) Osteomyelitis, unspecified: CODE(S): M86.9 - Osteomyelitis, unspecified (3) Diabetes mellitus: CODE(S): E11.9 - Type 2 diabetes mellitus without complications QUALIFIERS: Diabetes mellitus complication detail: with other circulatory complications Diabetes mellitus complication status: with circulatory complication Diabetes mellitus superintendent [employer] insulin use: with skilled nursing use (4) Debility: CODE(S): R53.81 - Other malaise (5) Below-knee amputation of right lower extremity: CODE(S): S88.111A - Complete traumatic amputation at level between knee and ankle, right lower leg, initial encounter (6) Malnutrition: CODE(S): E46 - Unspecified protein-calorie malnutrition (7) History of below-knee amputation of left lower extremity: CODE(S): Z89.512 - Acquired absence of left leg below knee (8) Former smoker: CODE(S): Z87.891 - Personal history of nicotine dependence PLAN: Wound care - Wound VAC at 150 mmHg. VAC dressing to be changed 3 times per week. Continue compression with JEM wrap. Recent wound culture on 03/01/21 showed MRSE, and Corynebacterium amycolatum. He was placed on Doxycycline and will continue it. HgbA1c was 6.9 and 12/01/20. For any elective revision surgery to close the wound over the bone the HgbA1c needs to be less than 8. He needs another level drawn before any surgery is done. With the amount of swelling present, it is impossible to close the wound without shortening the stump. Shortening a little is ok because the prosthesis can adapt. The problem occurs when extensive tissue is removed. Then the BKA stump is too short as there is too much instability with the prosthesis in that instance and then a AKA would need to be done. I want to see much more swelling resolved and the inflammation in the skin edges before proceed with revision of the stump. I should be able to shorten the exposed bone at the time of revision and be able to close the skin. Hopefully it should still be acceptable as a BKA prosthesis. Anticipate 3-6 months before proceeding with revision surgery. In the meantime, I would like to see more granulation tissue over the bone, if possible. Bone will be sent to Pathology to evaluate for osteomyelitis. If positive he will need skilled nursing antibiotics. I will have to debride the flap as well in order to close the stump ulcer. I don't want to remove too much as it will make the prosthesis problematic over time as it will press on the stump skin without much padding and pain develops from the pressure of the bone on the skin and prosthesis. Over time ulceration may occur. Followup one week.
== END 2021-05-01 23:59 ==
LOC: WC 13:30
PROVIDERS: PCP Family Medicine; Visit Provider Nurse Practitioner Family
DX: E11.621 Type 2 diabetes mellitus with foot ulcer (principal); T87.89 Other complications of amputation stump; Y83.8 Other surgical procedures as the cause of abnormal reaction of the patient, or of later complication, without mention of misadventure at the time of the procedure; L97.812 Non-pressure chronic ulcer of other part of right lower leg with fat layer exposed; E11.51 Type 2 diabetes mellitus with diabetic peripheral angiopathy without gangrene; Z86.14 Personal history of Methicillin resistant Staphylococcus aureus infection; Z87.891 Personal history of nicotine dependence
CPT/HCPCS: 11043; 11046

== ENCOUNTER 2021-04-26 11:24 | Emergency (ER) | payer MEDICARE, OTHER, SELFPAY ==
[2021-04-26 11:26] VITALS: BP 129/66; PULSE 93; RESP 23; TEMP 36.6; O2SAT 99; BMI 26.1
[2021-04-26 11:39] VITALS: O2SAT 97
--- NOTE | 2021-04-26 11:45 | EKG12_ITS ---
Test Reason : SOB Blood Pressure : / mmHG Vent. Rate : 092 BPM Atrial Rate : 092 BPM P-R Int : 000 ms QRS Dur : 140 ms QT Int : 404 ms P-R-T Axes : 206 -71 108 degrees QTc Int : 499 ms Ventricular-paced rhythm Biventricular pacemaker detected Abnormal ECG Confirmed by DEBORAH ELLSWORTH, ANGEL ([id number]), acquisition editor FRANTZ LYNN ([id number]) on 04/28/2021 9:28:20 AM Referred By: DAVID Confirmed By:ANGEL CABRERA MD
--- NOTE | 2021-04-26 11:45 | RAD_ITS ---
STUDY: X-RAY CHEST REASON FOR EXAM: Male, 75 years old. Dyspnea TECHNIQUE: Single AP portable view of the chest. COMPARISON: None. FINDINGS: EKG electrodes are seen. There is elevation of the right hemidiaphragm with a right basilar atelectasis and/or infiltration. There is blunting of the right costophrenic angle. A left-sided dual-chamber pacemaker is present. The battery pack obscures the left lower lobe. Status post midline sternotomy. Normal mediastinum and sandra. Normal visualized pulmonary arteries. Normal visualized aortic arch and descending thoracic aorta. Normal visualized thoracic spine. There is evidence of calcific tendinitis of the right shoulder. There is no demonstrated abnormality of the visualized soft tissue structures of the upper abdomen. RAD/Chest 1 View (Portable) IMPRESSION: Findings suggest atelectasis and/or infiltrate in the right lower lobe. Electronically Signed: Ramon Lemus MD at 12:18 EDT , Service support ,
--- NOTE | 2021-04-26 11:46 | EDS_ITS ---
HPI History of Present Illness Chief Complaint: Shortness of Breath Narrative Narrative: 75-year-old male presenting with shortness of breath. He states this started yesterday. He has had intermittent episodes of this. He does describe generalized fatigue. He does not have fever, chills. He does not have a new cough. Patient has been vaccinated for COVID-19 and does not have any exposures that he knows of. Patient has bilateral lower extremity amputations. He has a prosthetic for the left leg and states that he is having difficulty getting around. He also complains of urinary frequency. His states that it is not cloudy and does not have a foul smell. Patient also states that he stopped taking his Lasix 2 days ago because he thought that his weight was low however when he arrived here he states that his weight is normal. Patient denies any chest pain. He does complain of nausea intermittently. Has been able to eat and drink although this is diminished. He did vomit once this morning. [facility] Medical History Amputee of extremity Cataract Diabetes High cholesterol Hypertension Allergy/AdvReac Type Severity Reaction Status Date / Time cefdinir Allergy PT UNSURE Verified 04/26/21 11:37 OF REACTION cephalexin Allergy PT UNSURE Verified 04/26/21 11:37 OF REACTION chlorthalidone Allergy PT UNSURE Verified 04/26/21 11:37 OF REACTION dofetilide [From Tikosyn] Allergy PT UNSURE Verified 04/26/21 11:37 OF REACTION gabapentin Allergy PT UNSURE Verified 04/26/21 11:37 OF REACTION Latex, Natural Rubber Allergy Itching Verified 04/26/21 11:37 linezolid Allergy PT UNSURE Verified 04/26/21 11:37 OF REACTION metronidazole Allergy PT UNSURE Verified 04/26/21 11:37 OF REACTION sulfamethoxazole Allergy PT UNSURE Verified 04/26/21 11:37 [From Bactrim] OF REACTION tizanidine Allergy PT UNSURE Verified 04/26/21 11:37 OF REACTION trimethoprim [From Bactrim] Allergy PT UNSURE Verified 04/26/21 11:37 OF REACTION Surgical History Hx of cholecystectomy Hx of heart artery stent Social History Smoking Status: Former smoker ROS ROS ED Constitutional Constitutional ED: Denies chills or fever(s) Eyes Eyes: Denies blurry vision or diplopia ENT ENT ED: Denies rhinorrhea or sore throat Cardiovascular Cardiovascular: Denies chest pain or palpitations Respiratory/Chest Respiratory/Chest: Reports dyspnea and dyspnea on exertion; Denies cough Gastrointestinal Gastrointestinal: Reports nausea and vomiting; Denies abdominal pain Genitourinary Genitourinary ED: Reports urinary frequency; Denies dysuria Musculoskeletal Musculoskeletal: Denies arthralgias, back pain, myalgias or neck pain Neurologic Neurologic: Denies headache(s) or paresthesias EXAM Physical Exam Const Vital Signs: 04/26/21 11:26 04/26/21 11:39 04/26/21 12:10 Temperature 97.9 F Temperature Source Temporal Pulse Rate 93 Respiratory Rate 23 H Respiratory Effort Normal Respiratory Depth Normal Respiratory Pattern Normal Blood Pressure 129/66 H Blood Pressure Mean 87 Pulse Ox 99 99 Oxygen Delivery Method Room Air Room Air Room Air 04/26/21 15:28 Temperature 98.1 F Temperature Source Pulse Rate 78 Respiratory Rate 16 Respiratory Effort Respiratory Depth Respiratory Pattern Blood Pressure 126/74 H Blood Pressure Mean Pulse Ox 98 Oxygen Delivery Method Positive well nourished General Appearance ED: NAD HEENT Reports dry mucous membranes atraumatic Mouth ED: Yes dry mucous membranes Mouth: dry mucous membranes Eyes PERRL and EOMs intact bilaterally Resp normal respiratory effort and clear to auscultation bilaterally Cardio regular rate and regular rhythm GI non-tender and non-distended Palpation: soft Extremity Extremity Narrative: Dressing in place over right lower extremity with wound VAC attached and is clean dry and intact. Neuro oriented x3 Sensorium / Orientation: alert and oriented to person Psych mental status grossly normal Thought Process: normal thought process MDM MDM MDM Narrative Medical decision making narrative: Patient presenting with shortness of breath. Clinically he does not have any signs of respiratory distress. He speaking in full sentences. He does state that he has some dyspnea on exertion. Patient also has bilateral below-knee amputations and ambulates with a prosthetic on the left leg and uses a walker which may cause some difficulty. Patient does state that he stopped taking his Lasix 2 days ago because he thought that his weight was too low. He does relate that it is difficult to weigh himself while balancing on a walker. Today his EKG is a ventricular paced rhythm without evidence of ischemia. Initial troponin is 91 and the second troponin is 90. His BNP is elevated at 2133. CBC is at baseline. Renal function and electrolytes are normal. Urinalysis negative for infection. Chest x-ray on my interpretation shows right lower lobe atelectasis. Radiologist does comment that this may be infiltrate versus atelectasis. Patient does not have a cough and his clinical picture is more consistent with CHF. Since patient has not been taking his Lasix I think this is likely the cause of his shortness of breath. Patient was discussed with Dr. Timmons who recommended that he double his Lasix today to 80 mg. He will continue to take 40 daily outpatient. He should follow-up with Dr. Timmons or return to the ER with new or worsening symptoms. His Covid test that was negative. Impression: 1. Dyspnea 2. CHF exacerbation Lab Data Attestation: I reviewed the patient's lab results. Labs: Laboratory Results - last 24 hr 04/26/21 04/26/21 04/26/21 11:55 11:55 11:55 WBC 5.4 RBC 3.20 L Hgb 10.8 L Hct 33.3 L MCV 104.1 H MCH 33.8 H MCHC 32.4 RDW Std Deviation 52.2 H RDW Coeff of Jac 13.8 Plt Count 158 MPV 8.9 Immature Gran % (Auto) 1.900 H Neut % (Auto) 80.3 H Lymph % (Auto) 8.2 L [place] % (Auto) 7.4 Eos % (Auto) 1.5 Baso % (Auto) 0.7 Absolute Neuts (auto) 4.3 Absolute Lymphs (auto) 0.44 L Nucleated RBC % 0 Differential Comment SCANNED Sodium 137 Potassium 4.3 Chloride 100 Carbon Dioxide 30.0 Anion Gap 7 BUN 25 H Creatinine 0.82 Estim Creat Clear Calc 86.75 Est GFR (MDRD) Af Amer 119 Est GFR (MDRD) Non-Af 98 BUN/Creatinine Ratio 30.6 H Glucose 128 H Calcium 8.7 Troponin I High Sens 91 H B-Natriuretic Peptide 2133.8 H Urine Color Urine Clarity Urine pH Ur Specific [place] Urine Protein Urine Glucose (UA) Urine Ketones Urine Occult Blood Urine Nitrite Urine Bilirubin Urine Urobilinogen Ur Leukocyte Esterase Urine RBC Urine WBC Ur Squamous Epith Cells Urine Bacteria Urine Mucus 04/26/21 04/26/21 12:15 14:15 WBC RBC Hgb Hct MCV MCH MCHC RDW Std Deviation RDW Coeff of Jac Plt Count MPV Immature Gran % (Auto) Neut % (Auto) Lymph % (Auto) [place] % (Auto) Eos % (Auto) Baso % (Auto) Absolute Neuts (auto) Absolute Lymphs (auto) Nucleated RBC % Differential Comment Sodium Potassium Chloride Carbon Dioxide Anion Gap BUN Creatinine Estim Creat Clear Calc Est GFR (MDRD) Af Amer Est GFR (MDRD) Non-Af BUN/Creatinine Ratio Glucose Calcium Troponin I High Sens 90 H B-Natriuretic Peptide Urine Color Yellow Urine Clarity Clear Urine pH 5.0 Ur Specific [place] 1.015 Urine Protein Negative Urine Glucose (UA) Normal Urine Ketones 5 H Urine Occult Blood Negative Urine Nitrite Negative Urine Bilirubin Negative Urine Urobilinogen Normal Ur Leukocyte Esterase Negative Urine RBC 0 SEEN Urine WBC 0 SEEN Ur Squamous Epith Cells 0 SEEN Urine Bacteria 0 SEEN Urine Mucus 0 SEEN Radiography Diagnostic Testing: Clinical Impression(s) from Imaging Studies Chest X-Ray 04/26/21 11:45 IMPRESSION: Findings suggest atelectasis and/or infiltrate in the right lower lobe. Electronically Signed: Ramon Lemus MD at 12:18 EDT , Service support , Discharge Plan Triage Chief Complaint: Shortness of Breath ED Provider: Luis Fernando Chavez Dx/Rx/DC Orders Instructions: ED Heart Failure, Congestive (CHF) Primary Care Provider: Adlofo Glasgow Referrals: Adolfo Glasgow DO [Primary Care Provider] - Jorje Timmons MD [STAFF PHYSICIAN] - As soon as possible Disposition Disposition: Home, Self Care Discharge Date/Time: 04/26/21 15:29
--- NOTE | 2021-04-26 11:47 | NURSING ---
NO OLD EKGS
[2021-04-26 12:05] LABS: Absolute Lymphocyte Count 0.44 X10^3/uL (0.83-4.51); Absolute Neutrophil Count 4.3 X10^3/uL (2.0-7.7); Basophil# 0.04 X10^3/uL; Basophil% 0.7 % (0-1); Differential Indicated SCAN CRITERIA MET; Eosinophil# 0.08 X10^3/uL; Eosinophils% 1.5 % (0-5); Hematocrit 33.3 % (40-54); Hemoglobin 10.8 g/dL (13.0-16.5); Lymphocyte # 0.44 X10^3/ul (0.83-4.51); Lymphocyte % 8.2 % (19-41); Mean Corp Hgb Conc 32.4 g/dL (32-36); Mean Corpuscular Hgb 33.8 pg (27.0-32.0); Mean Corpuscular Volume 104.1 fL (80-94); Mean Platelet Vol. 8.9 fl (6.2-12.0); Monocyte% 7.4 % (0-10); NRBC Flagged by Analyzer 0 % (0-5); Neutrophil # 4.33 X10^3/uL (2.7-7.7); Neutrophil % 80.3 % (47-70); POSITIVE DIFFERENTIAL YES; Platelet Count 158 K/mm3 (150-450); RBC Distribution Width CV 13.8 % (11.6-14.6); RBC Distribution Width SD 52.2 fl (35.1-43.9); White Blood Count 5.4 K/mm3 (4.4-11.0)
[2021-04-26 12:10] VITALS: O2SAT 99
[2021-04-26 12:19] LABS: Anion Gap 7 (5-15); BUN 25 mg/dL (7-18); BUN/Creat Ratio 30.6 RATIO (10-20); Calcium,Total 8.7 mg/dL (8.5-10.1); Chloride 100 mmol/L (98-107); Creatinine, Serum 0.82 mg/dL (0.70-1.30); EST Glomerular Filtration Rate 98 mL/min (>60); Est Glom Filt Rate - Afr Amer 119 mL/min (>60); Estimated Creatinine Clearance 86.75 ml/min; Glucose 128 mg/dL (74-106); Potassium 4.3 mmol/L (3.5-5.1); Sodium Level 137 mmol/L (136-145); Troponin-I HS 91 pg/mL (3.0-78.0)
[2021-04-26 12:22] LABS: Bacteria 0 SEEN /hpf (None Seen); Mucous, Urine 0 SEEN /hpf (<or=2+); Red Blood Cells-Urine 0 SEEN /hpf (0-5); Squamous Epithelial Cells - UA 0 SEEN /hpf (0-5); White Blood Cells 0 SEEN /hpf (0-5)
[2021-04-26 12:26] LABS: Differential Comment SCANNED
[2021-04-26 12:32] LABS: BNP,B-Type NATRIURETIC PEPTIDE 2133.8 pg/mL (0-100)
[2021-04-26] MEDS: Aspirin 81 MG TAB.CHEW 324 MG PO (12:35)
[2021-04-26 12:40] LABS: Color, Urine Yellow (Yellow); Glucose, Dipstick Normal (Normal); Ketone-Dipstick 5 mg/dl (Negative); Leukocyte Esterase-Dipstick Negative /ul (Negative); Nitrite-Dipstick Negative (Negative); Occult Blood-Urine Negative /ul (Negative); Protein-Dipstick Negative (Negative); Specific Gravity, Urine 1.015 (1.002-1.030); Urine Bilirubin Dipstick Negative (Negative); Urine Clarity Clear (Clear); Urine Urobilinogen Normal (Normal)
[2021-04-26 14:52] LABS: Troponin-I HS 90 pg/mL (3.0-78.0)
[2021-04-26 15:28] VITALS: BP 126/74; PULSE 78; RESP 16; TEMP 36.7; O2SAT 98
== END 2021-04-26 15:29 | disposition home or self-care (01) ==
PROVIDERS: Emergency Provider Student in an Organized Health Care Education/Training Program; PCP Family Medicine
DX: I11.0 Hypertensive heart disease with heart failure (principal); I50.9 Heart failure, unspecified; Z95.5 Presence of coronary angioplasty implant and graft; Z79.899 Other long term (current) drug therapy; Z87.891 Personal history of nicotine dependence
CPT/HCPCS: 71045; 80048; 81001; 83880; 84484; 85025; 87426; 93005; 99285; A4216

== ENCOUNTER 2021-05-23 11:15 | Outpatient (RCR) | payer MEDICARE, OTHER, SELFPAY ==
[2021-05-02 00:26] VITALS: BP 104/41; PULSE 82; RESP 16; TEMP 36.1; BMI 24.0
[2021-05-02 13:20] VITALS: BP 114/68; PULSE 91; RESP 20; TEMP 36.4; BMI 24.0
--- NOTE | 2021-05-02 14:36 | PN.PCM_ITS ---
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 After he was discharged from the hospital, he was in the inpatient rehab unit and then transferred to TCU. He was discharged home on 02/11/21. Wound care - Wound VAC. Will decrease to 125 mmHg to see if this helps his pain. Dressing to be changed three times per week. Stop adaptic over the bone. Continue compression with JIGAR wrap. Right knee skin tear will place collagen hydrogel daily covered by gauze. Hgb/A1c was 6.9 on 12/01/20. Prealbumin was 13.5 on 01/11/21. Wound culture from 03/01/21 showed MRSE and Corynebacterium amycolatum. He is currently on Doxycycyline. Operative Pathology from 01/10/21 was negative for osteomyelitis. He had a preoperative culture on 12/01/20. It showed MRSA and Pseudomonas aeroginosa. He was treated with Doxycycline. He states he is a little worried because the left BKA stump also developed a nonhealing ulcer that healed after a revision surgery. Today he has no fever. His appetite is ok. Progress of Wound: Improved. He does have a new skin tear over right knee from wound drape. Objective Data Objective Data Vital Signs: Vital Signs Temp Pulse Resp BP 97.6 F L 91 20 H 114/68 05/02/21 13:20 05/02/21 13:20 05/02/21 13:20 05/02/21 13:20 Body Mass Index (BMI) 24.0 Charges/Coding Procedures Integumentary 111xxx-113xx: [id number] Alejandra subq tissue 20 sq cm/< Add On Codes: 77113 Alejandra subq tissue add-on Physical Exam Const alert and oriented x3 General Appearance: cooperative HEENT normocephalic Lymph Lymphatic: no lymphedema noted Resp normal respiratory effort Cardio regular rate GI Palpation: soft Extremity normal capillary refill Extremity Narrative: Right BKA stump is edematous with +1-+2 non pitting edema Skin Wound Narrative: Right BKA stump ulcer with bone exposure, it is beefy pink. New skin tear on right knee from wound vac drape. Neuro CN's II-XII intact bilaterally Psych Appearance: grossly normal Debridement Note Debridement Note Wound debrided: BKA stump ulcer Laterality: Right Wound Grade/Stage: Stage IV Type of Debridement: Excisional debridement Anesthesia Used: 5% Lidocaine Gel Depth: Down to and including healthy tissue, in the subcutaneous layer and to bone Percentage of wound debrided: 100 Instrument Used: 5mm curette Tissue Removed: Subcutaneous tissue and slough with bone exposure Severity: Fat Layer Exposed Amount of bleeding with debridement: Mild Bleeding Controlled with: Pressure Patient tolerated procedure: Patient tolerated procedure well Post-Debridement Measurements and Additional Note: Post-Debridement Measurements/Treatment WC - Nurse 1 - General Ulcer Assessment Start: 05/02/21 13:20 Freq: Status: Active Protocol: GREG Activity Type Activity Date Activity User E-Sign Co-Sign Detail Recorded Client Recorded Date Recorded By Document 05/02/21 13:20 DL [id number] 05/02/21 13:28 DL 05/02/21 13:20 WC - Today's Visit Information Type of service Follow-up Visit (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 [employer] ) Arrival Mode Wheelchair Transfer Assistance None Patient Identification Verified (Name & Yes ) Patient Requires Transmission-Based No Precautions Height and Weight Body Mass Index (BMI) 24.0 BMI Classification Normal Vital Signs Temperature (97.8 F-99.1 F) 97.6 F L Temperature Source Temporal Pulse Rate (60-100) 91 Pulse Location Monitor Respiratory Rate (12-18) 20 H Respiratory rate source Observation Blood Pressure (90/60-120/80) 114/68 Blood Pressure Mean (mm Hg) 83 Source Monitor History Since Last Visit- (Skip if this is Patient's initial visit) Have you changed medications since your No last visit? Any new allergies or adverse reactions No Had a fall/change in ADL's that may No increase risk of falls Signs or symptoms of abuse and/or No neglect since last visit Have you been in the hospital since your No last visit? Has dressing in place as prescribed Yes Has compression in place as prescribed Yes Has offloadiing in place as prescribed Yes Experienced any changes in pain level or No management - Nurse 1 - General Ulcer Measurement Start: 05/02/21 13:20 Freq: Status: Active Protocol: Activity Type Activity Date Activity User E-Sign Co-Sign Detail Recorded Client Recorded Date Recorded By Document 05/02/21 13:20 DL [id number] 05/02/21 13:28 DL 05/02/21 13:20 Wound Center Nurse 1 #9 R Knee -Current Size (cm) - Length 1.5 -Current Size (cm) - Width 2 -Current Size (cm) - Depth 0.1 -Total Square Cm 3.0 -Photo Taken Yes -Exudate Amt None Present -Wound Margin Distinct, Outline Attached -Granulation Amt Large (67-100%) -Granulation Quality [place] -Necrosis Amt None Present (0 %) -Structure Exposed N/A -Texture (Allison-wound Skin Appearance) Scarring -Moisture (Allison-wound Skin Appearance) No Abnormality -Color (Allison-wound Skin Appearance) No Abnormality -Temperature (Allison-wound Skin No Abnormality Appearance) (Pt Warm) -Tenderness on Palpation (Allison-wound No Skin Appearance) -Ulcer Cleansing Wound Cleanser -Foul Odor after Cleansing No -Anesthetic Used 4% Lidocaine Solution #8- R STUMP cluster -Current Size (cm) - Length 4.7 -Current Size (cm) - Width 8 -Current Size (cm) - Depth 0.2 -Total Square Cm 37.6 -Photo Taken No -Exudate Amt Medium -Exudate Type Serosanguineous -Wound Margin Distinct, Outline Attached -Granulation Amt Medium (34-66%) -Granulation Quality Red -Necrosis Amt Medium (34-66%) -Necrotic Tissue Type Adherent Slough -Structure Exposed Bone -Texture (Allison-wound Skin Appearance) Scarring -Moisture (Allison-wound Skin Appearance) No Abnormality -Color (Allison-wound Skin Appearance) Atrophie [place] -Temperature (Allison-wound Skin No Abnormality Appearance) (Pt Warm) -Tenderness on Palpation (Allison-wound Yes Skin Appearance) -Ulcer Cleansing Wound Cleanser -Foul Odor after Cleansing No -Anesthetic Used 4% Lidocaine Solution,5% Lidocaine Gel WC - Nurse 2 - General Ulcer CM Notes Start: 05/02/21 13:20 Freq: Status: Active Protocol: Activity Type Activity Date Activity User E-Sign Co-Sign Detail Recorded Client Recorded Date Recorded By Document 05/02/21 13:48 [email or web address] [id number] 05/02/21 13:53 [email or web address] 05/02/21 13:48 Wound Center Nurse 2 #9 R Knee -Correct Patient No -Correct Side, Site, Position No -Correct Procedure No -Procedure Performed No -Wound/Ulcer Outcome Not Healed #8- R STUMP cluster -Time 13:50 -Correct Patient Yes -Correct Side, Site, Position Yes -Correct Procedure Yes -Procedure Performed Yes -Type of Procedure Debridement -Clinical Debridement Subcutaneous -Tissue Removed Subcutaneous -Post Debridement (cm) - Length 4.5 -Post Debridement (cm) - Width 8 -Post Debridement (cm) - Depth 0.3 -Total Square (Post) (cm) 36.0 -Area of Debridement (cm) - Length 4.5 -Area of Debridement (cm) - Width 8 -Total Square (Area) (cm) 36.0 -Tunneling No -Undermining/Tunneling No -Circular Undermining No -Wound/Ulcer Outcome Not Healed -Ulcer Cleansing Rinsed/ Irrigated with Saline -Foul Odor after Cleansing No -Bioengineered Tissue No -Bleeding Controlled with Pressure -Offloading No -Treatment Response Procedure Tolerated Well -Debridement - Subq, 1st 20sq cm Yes -Debridement, SubQ, ea addt'l 20sq cm 1 or part thereof Pain Scale: 0-10 Numeric Is Patient Pain Free? Yes - Nurse 3 - General Ulcer D/C NN Start: 05/02/21 13:20 Freq: Status: Active Protocol: Activity Type Activity Date Activity User E-Sign Co-Sign Detail Recorded Client Recorded Date Recorded By Document 05/02/21 14:14 DL [id number] 05/02/21 14:16 DL 05/02/21 14:14 Wound Care Nurse 3 #9 R Knee -Ulcer Cleansing Wound Cleanser -Foul Odor after Cleansing No -Primary Dressing Applied Enzymatic -Primary Dressing Covered/Secured with Dry Gauze #8- R STUMP cluster -Ulcer Cleansing Rinsed/ Irrigated with Saline -Foul Odor after Cleansing No -Other Dressing moist gauze drsg -Primary Dressing Covered/Secured with Dry Gauze & Roll Gauze, Secured with Tape -Other Covering jigar Treatment Response Procedure Tolerated Well Pain Scale: 0-10 Numeric Is Patient Pain Free? 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: CODE(S): T87.89 - Other complications of amputation stump; L97.912 - Non- pressure chronic ulcer of unspecified part of right lower leg with fat layer exposed (2) Osteomyelitis, unspecified: CODE(S): M86.9 - Osteomyelitis, unspecified (3) Diabetes mellitus: CODE(S): E11.9 - Type 2 diabetes mellitus without complications QUALIFIERS: Diabetes mellitus intermediate insulin use: with intermediate use Diabetes mellitus complication status: with circulatory complication Diabetes mellitus complication detail: with other circulatory complications (4) Debility: CODE(S): R53.81 - Other malaise (5) Below-knee amputation of right lower extremity: CODE(S): S88.111A - Complete traumatic amputation at level between knee and ankle, right lower leg, initial encounter (6) History of below-knee amputation of left lower extremity: CODE(S): Z89.512 - Acquired absence of left leg below knee (7) Former smoker: CODE(S): Z87.891 - Personal history of nicotine dependence (8) Malnutrition: CODE(S): E46 - Unspecified protein-calorie malnutrition (9) Peripheral vascular disease due to secondary diabetes: CODE(S): E13.51 - Other specified diabetes mellitus with diabetic peripheral angiopathy without gangrene PLAN: Wound care - Wound VAC decreaed to 125 mmHg per patient request because he is having increased pain. VAC dressing to be changed 3 times per week, stop using adaptic over the bone. He has a new skin tear on right knee that we will place collagen hydrogel and cover with gauze daily. No de bridement of that wound. Continue compression with JIGAR wrap. He has increased edema of his right BKA stump. He states that he has been started on Lasix by cardiology. Recent wound culture on 03/01/21 showed MRSE, and Corynebacterium amycolatum. He was placed on Doxycycline and will continue it. HgbA1c was 6.9 and 12/01/20. For any elective revision surgery to close the wound over the bone the HgbA1c needs to be less than 8. He needs another level drawn before any surgery is done. With the amount of swelling present, it is impossible to close the wound without shortening the stump. Shortening a little is ok because the prosthesis can adapt. The problem occurs when extensive tissue is removed. Then the BKA stump is too short as there is too much instability with the prosthesis in that i nstance and then a AKA would need to be done. I want to see much more swelling resolved and the inflammation in the skin edges before proceed with revision of the stump. I should be able to shorten the exposed bone at the time of revision and be able to close the skin. Hopefully it should still be acceptable as a BKA prosthesis. Anticipate 3-6 months before proceeding with revision surgery. In the meantime, I would like to see more granulation tissue over the bone, if possible. Bone will be sent to Pathology to evaluate for osteomyelitis. If positive he will need intermediate antibiotics. I will have to debride the flap as well in order to close the stump ulcer. I don't want to remove too much as it will make the prosthesis problematic over time as it will press on the stump skin without much padding and pain develops from the pressure of the bone on the skin and prosthesis. Over time ulceration may occur. Followup one week.
--- NOTE | 2021-05-05 08:26 | WC ---
Received a call from Roseanna from [facility] regarding patien't dressing from with the wound vac. She states that patient has had increase bloody drainage noted some odor to ulcer and patient was painful to touch -with some redness to rosa-ulcer. According to Roseanna, she washed the ulcer and reapplied the vac at 125mmHg since she stated the ulcer didn't look worse than what it had looked from previous dressings and the redness to the rosa-ulcer was more from drainage and not cellulitic. Patient was non-febrile. After speaking to Aminah Leary CNP regarding this matter, she states that if the ulcer looks infected, to have the vac removed and the patient to apply daily 0.25% Dakin's to ulcer. If the patient is symptomatic with infection, he needs to report to the ER. She states that she will pass this information to the Sunday nurse who will be doing his dressing who is familiar with his care. If the vac comes off and they start using Dakin's and it looks like he needs to be seen sooner at the [facility], to have patient call for an appt for 05/09/21. Roseanna verbalized understanding.
[2021-05-09 10:23] VITALS: BP 114/82; PULSE 87; RESP 16; TEMP 35.8; BMI 24.0
--- NOTE | 2021-05-09 14:43 | PCM.WC.PN ---
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 After he was discharged from the hospital, he was in the inpatient rehab unit and then transferred to TCU. He was discharged home on 02/11/21. Wound care - Wound VAC holiday due to pain and ordor. Decreasing the VAC to 125 mmHg did help with pain. While on vac holiday, will do daily Dakin's 0.25% moistened gauze covered with ABD. Right knee skin tear will place collagen hydrogel daily covered by gauze. Continue compression with JIGAR wrap. Hgb/A1c was 6.9 on 12/01/20. Prealbumin was 13.5 on 01/11/21. Wound culture obtained today, 05/09/21. Depending on the results of the culture, it may necessitate the need for treatment with antibiotics. Wound culture from 03/01/21 showed MRSE and Corynebacterium amycolatum. He is completed Doxycycyline. Operative Pathology from 01/10/21 was negative for osteomyelitis. He had a preoperative culture on 12/01/20. It showed MRSA and Pseudomonas aeroginosa. He was treated with Doxycycline. He states he is a little worried because the left BKA stump also developed a nonhealing ulcer that healed after a revision surgery. Today he has no fever. His appetite is ok. Progress of Wound: Increased odor and drainage with increased pain. He has a skin tear over right knee from wound drape. Objective Data Objective Data Vital Signs: Vital Signs Temp Pulse Resp BP 96.5 F L 87 16 114/82 H 05/09/21 10:23 05/09/21 10:23 05/09/21 10:23 05/09/21 10:23 Oxygen Delivery Method Room Air Body Mass Index (BMI) 24.0 Charges/Coding Procedures Integumentary 111xxx-113xx: 76301 Alejandra subq tissue 20 sq cm/< Add On Codes: 46708 Alejandra subq tissue add-on (x2) Physical Exam Const alert and oriented x3 General Appearance: cooperative HEENT normocephalic Lymph Lymphatic: no lymphedema noted Resp normal respiratory effort Cardio regular rate GI Palpation: soft Extremity normal capillary refill General Extremity: edema Skin Skin Narrative: Skin color is sallow. Wound Narrative: Right BKA stump with bone exposure is pale with increased slimy drainage and odor. Wound culture obtained today of right BKA ulcer. Right knee ulcer is pink and stable. Neuro CN's II-XII intact bilaterally Psych Appearance: grossly normal Debridement Note Debridement Note Wound debrided: BKA stump dressing Laterality: Right Type of Debridement: Excisional debridement Anesthesia Used: 5% Lidocaine Gel Depth: Down to and including healthy tissue, in the subcutaneous layer and to bone Percentage of wound debrided: 100 Instrument Used: 5mm curette Tissue Removed: Subcutaneous tissue and slough with bone exposure Severity: Fat Layer Exposed Amount of bleeding with debridement: Mild Bleeding Controlled with: Pressure Patient tolerated procedure: Patient tolerated procedure well Post-Debridement Measurements and Additional Note: Post-Debridement Measurements/Treatment - Nurse 1 - General Ulcer Assessment Start: 05/02/21 13:20 Freq: Status: Active Protocol: GREG Activity Type Activity Date Activity User E-Sign Co-Sign Detail Recorded Client Recorded Date Recorded By Document 05/02/21 13:20 DL [id number] 05/02/21 13:28 DL Document 05/09/21 10:23 [facility] [id number] 05/09/21 10:33 BM 05/02/21 05/09/21 13:20 10:23 - Today's Visit Information Type of service Follow-up Visit Follow-up Visit (Physician/IT INFRASTRUCTURE SPECIALIST (Physician/IT INFRASTRUCTURE SPECIALIST ) ) Arrival Mode Wheelchair Wheelchair Transfer Assistance None None Accompanied by Patient Identification Verified (Name & Yes Yes ) Patient Requires Transmission-Based No No Precautions Height and Weight Body Mass Index (BMI) 24.0 24.0 BMI Classification Normal Normal Vital Signs Temperature (97.8 F-99.1 F) 97.6 F L 96.5 F L Temperature Source Temporal Temporal Pulse Rate (60-100) 91 87 Pulse Location Monitor Monitor Respiratory Rate (12-18) 20 H 16 Respiratory rate source Observation Observation Oxygen Delivery Method Room Air Blood Pressure (90/60-120/80) 114/68 114/82 H Blood Pressure Mean (mm Hg) 83 92 Source Monitor Monitor Position Sitting Blood Pressure Location Left Forearm History Since Last Visit- (Skip if this is Patient's initial visit) Have you changed medications since your No No last visit? Any new allergies or adverse reactions No No Had a fall/change in ADL's that may No No increase risk of falls Signs or symptoms of abuse and/or No No neglect since last visit Have you been in the hospital since your No No last visit? Has dressing in place as prescribed Yes Yes Has compression in place as prescribed Yes Yes Has offloadiing in place as prescribed Yes N/A Experienced any changes in pain level or No No management Pain Scale: 0-10 Numeric Is Patient Pain Free? Yes WC - Nurse 1 - General Ulcer Measurement Start: 05/02/21 13:20 Freq: Status: Active Protocol: Activity Type Activity Date Activity User E-Sign Co-Sign Detail Recorded Client Recorded Date Recorded By Document 05/02/21 13:20 DL [id number] 05/02/21 13:28 DL Document 05/09/21 10:23 [facility] [id number] 05/09/21 10:33 BM 05/02/21 05/09/21 13:20 10:23 Wound Center Nurse 1 #9 R Knee -Combined with other wound No -Current Size (cm) - Length 1.5 1.5 -Current Size (cm) - Width 2 1.3 -Current Size (cm) - Depth 0.1 0.1 -Total Square Cm 3.0 1.95 -Photo Taken Yes No -Epithelialization None Present -Tunneling No -Undermining/Tunneling No -Circular Undermining No -Exudate Amt None Present Medium -Exudate Type Serosanguineous -Wound Margin Distinct, Distinct, Outline Outline Attached Attached -Granulation Amt Large (67-100%) Medium (34-66%) -Granulation Quality [place] -Slough/Fibrin Yes -Necrosis Amt None Present (0 Medium (34-66%) %) -Necrotic Tissue Type Adherent Slough -Structure Exposed N/A -Texture (Allison-wound Skin Appearance) Scarring Assessed, Scarring -Moisture (Alliosn-wound Skin Appearance) No Abnormality Assessed -Color (Allison-wound Skin Appearance) No Abnormality Assessed -Temperature (Allison-wound Skin No Abnormality No Abnormality Appearance) (Pt Warm) (Pt Warm) -Tenderness on Palpation (Allison-wound No No Skin Appearance) -Ulcer Cleansing Wound Cleanser Soap and Water -Foul Odor after Cleansing No No -Anesthetic Used 4% Lidocaine 4% Lidocaine Solution Solution #8- R STUMP cluster -Combined with other wound No -Current Size (cm) - Length 4.7 5.9 -Current Size (cm) - Width 8 9.4 -Current Size (cm) - Depth 0.2 0.3 -Total Square Cm 37.6 55.46 -Photo Taken No No -Epithelialization None Present -Tunneling No -Undermining/Tunneling No -Circular Undermining No -Exudate Amt Medium Large -Exudate Type Serosanguineous Serosanguineous -Wound Margin Distinct, Thickened Outline Attached -Granulation Amt Medium (34-66%) Large (67-100%) -Granulation Quality [place] -Slough/Fibrin Yes -Necrosis Amt Medium (34-66%) Medium (34-66%) -Necrotic Tissue Type Adherent Slough Adherent Slough -Structure Exposed Bone -Texture (Allison-wound Skin Appearance) Scarring Assessed, Scarring -Moisture (Allison-wound Skin Appearance) No Abnormality Assessed -Color (Allison-wound Skin Appearance) Atrophie Assessed [place] -Temperature (Allison-wound Skin No Abnormality No Abnormality Appearance) (Pt Warm) (Pt Warm) -Tenderness on Palpation (Allison-wound Yes No Skin Appearance) -Ulcer Cleansing Wound Cleanser Soap and Water -Foul Odor after Cleansing No No -Anesthetic Used 4% Lidocaine 4% Lidocaine Solution,5% Solution Lidocaine Gel WC - Nurse 2 - General Ulcer CM Notes Start: 05/02/21 13:20 Freq: Status: Active Protocol: Activity Type Activity Date Activity User E-Sign Co-Sign Detail Recorded Client Recorded Date Recorded By Document 05/02/21 13:48 JF [id number] 05/02/21 13:53 Document 05/09/21 10:58 JF [id number] 05/09/21 11:05 05/02/21 05/09/21 13:48 10:58 Wound Center Nurse 2 #9 R Knee -Time 11:01 -Correct Patient No Yes -Correct Side, Site, Position No Yes -Correct Procedure No Yes -Procedure Performed No Yes -Type of Procedure Debridement -Clinical Debridement Subcutaneous -Tissue Removed Subcutaneous -Post Debridement (cm) - Length 1.5 -Post Debridement (cm) - Width 1.5 -Post Debridement (cm) - Depth 0.1 -Total Square (Post) (cm) 2.25 -Area of Debridement (cm) - Length 1.5 -Area of Debridement (cm) - Width 1.5 -Total Square (Area) (cm) 2.25 -Tunneling No -Undermining/Tunneling No -Circular Undermining No -Wound/Ulcer Outcome Not Healed Not Healed -Ulcer Cleansing Rinsed/ Irrigated with Saline -Foul Odor after Cleansing No -Bioengineered Tissue No -Bleeding Controlled with Pressure -Offloading No -Treatment Response Procedure Tolerated Well -Debridement - Subq, 1st 20sq cm No #8- R STUMP cluster -Time 13:50 11:02 -Correct Patient Yes Yes -Correct Side, Site, Position Yes Yes -Correct Procedure Yes Yes -Procedure Performed Yes Yes -Type of Procedure Debridement Debridement -Clinical Debridement Subcutaneous Subcutaneous -Tissue Removed Subcutaneous Subcutaneous -Post Debridement (cm) - Length 4.5 5.7 -Post Debridement (cm) - Width 8 9 -Post Debridement (cm) - Depth 0.3 0.5 -Total Square (Post) (cm) 36.0 51.3 -Area of Debridement (cm) - Length 4.5 5.7 -Area of Debridement (cm) - Width 8 9 -Total Square (Area) (cm) 36.0 51.3 -Tunneling No No -Undermining/Tunneling No No -Circular Undermining No No -Wound/Ulcer Outcome Not Healed Not Healed -Ulcer Cleansing Rinsed/ Rinsed/ Irrigated with Irrigated with Saline Saline -Foul Odor after Cleansing No No -Bioengineered Tissue No No -Bleeding Controlled with Pressure Pressure -Offloading No No -Treatment Response Procedure Procedure Not Tolerated Well Tolerated Well -Debridement - Subq, 1st 20sq cm Yes Yes -Debridement, SubQ, ea addt'l 20sq cm 1 2 or part thereof Pain Scale: 0-10 Numeric Is Patient Pain Free? Yes Yes WC - Nurse 3 - General Ulcer D/C NN Start: 05/02/21 13:20 Freq: Status: Active Protocol: Activity Type Activity Date Activity User E-Sign Co-Sign Detail Recorded Client Recorded Date Recorded By Document 05/02/21 14:14 DL [id number] 05/02/21 14:16 DL Document 05/09/21 11:12 DL [id number] 05/09/21 11:15 DL 05/02/21 05/09/21 14:14 11:12 Wound Care Nurse 3 #9 R Knee -Ulcer Cleansing Wound Cleanser Rinsed/ Irrigated with Saline -Foul Odor after Cleansing No No -Primary Dressing Applied Enzymatic -Other Dressing hydrogel -Primary Dressing Covered/Secured with Dry Gauze Dry Gauze, Secured with Tape #8- R STUMP cluster -Ulcer Cleansing Rinsed/ dakins Irrigated with Saline -Foul Odor after Cleansing No No -Other Dressing moist gauze dakins moist drsg gauze -Primary Dressing Covered/Secured with Dry Gauze & Dry Gauze & Roll Gauze, Roll Gauze, Secured with Secured with Tape Tape -Other Covering jigar jigar Treatment Response Procedure Procedure Tolerated Well Tolerated Well Pain Scale: 0-10 Numeric Is Patient Pain Free? Yes Yes WC - Visit Discharge Discharge Condition Stable Stable Ambulatory Status Wheelchair Wheelchair Transportation [facility] Facility Type Home Health Home Health Orders Sent Yes Yes Additional Wound Wound debrided: knee ulcer Laterality: Right Type of Debridement: Excisional debridement Anesthesia Used: 4% Lidocaine Solution Depth: Down to and including healthy tissue and in the subcutaneous layer Percentage of wound debrided: 100 Instrument Used: 3mm curette Tissue Removed: Subcutaneous tissue and slough Severity: Fat Layer Exposed Amount of bleeding with debridement: Mild Bleeding Controlled with: Pressure Patient tolerated procedure: Patient tolerated procedure well Assessment/Plan Assessment/Plan (1) 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 with fat layer exposed: CODE(S): T87.89 - Other complications of amputation stump; L97.912 - Non-pressure chronic ulcer of unspecified part of right lower leg with fat layer exposed (2) Osteomyelitis, unspecified: CODE(S): M86.9 - Osteomyelitis, unspecified (3) Below-knee amputation of right lower extremity: CODE(S): S88.111A - Complete traumatic amputation at level between knee and ankle, right lower leg, initial encounter (4) Diabetes mellitus: CODE(S): E11.9 - Type 2 diabetes mellitus without complications QUALIFIERS: Diabetes mellitus intermediate designer insulin use: with long-term use Diabetes mellitus complication status: with circulatory complication Diabetes mellitus complication detail: with other circulatory complications (5) History of below-knee amputation of left lower extremity: CODE(S): Z89.512 - Acquired absence of left leg below knee (6) Personal history of Methicillin resistant Staphylococcus aureus infection: CODE(S): Z86.14 - Personal history of Methicillin resistant Staphylococcus aureus infection (7) Peripheral vascular disease due to secondary diabetes: CODE(S): E13.51 - Other specified diabetes mellitus with diabetic peripheral angiopathy without gangrene (8) Skin ulcer of right knee: CODE(S): L97.819 - Non-pressure chronic ulcer of other part of right lower leg with unspecified severity (9) Former smoker: CODE(S): Z87.891 - Personal history of nicotine dependence PLAN: Wound care - Wound VAC holiday due to pain and odor. Decreasing the VAC to 125 mmHg did help with pain. While on vac holiday, will do Dakin's 0.25% moistened gauze covered with ABD daily and as needed due to large amount of drainage. Right knee skin tear will place collagen hydrogel daily covered by gauze. Continue compression with JIGAR wrap. Wound culture obtained today, 05/09/21. Depending on the results of the culture, it may necessitate the need for treatment with antibiotics. He still has edema of his right BKA stump. He states that he has been started on Lasix by cardiology. Recent wound culture on 03/01/21 showed MRSE, and Corynebacterium amycolatum. He was placed on Doxycycline and will continue it. HgbA1c was 6.9 and 12/01/20. For any elective revision surgery to close the wound over the bone the HgbA1c needs to be less than 8. He needs another level drawn before any surgery is done. With the amount of swelling present, it is impossible to close the wound without shortening the stump. Shortening a little is ok because the prosthesis can adapt. The problem occurs when extensive tissue is removed. Then the BKA stump is too short as there is too much instability with the prosthesis in that instance and then a AKA would need to be done. I want to see much more swelling resolved and the inflammation in the skin edges before proceed with revision of the stump. I should be able to shorten the exposed bone at the time of revision and be able to close the skin. Hopefully it should still be acceptable as a BKA prosthesis. Anticipate 3-6 months before proceeding with revision surgery. In the meantime, I would like to see more granulation tissue over the bone, if possible. Bone will be sent to Pathology to evaluate for osteomyelitis. If positive he will need long-term antibiotics. I will have to debride the flap as well in order to close the stump ulcer. I don't want to remove too much as it will make the prosthesis problematic over time as it will press on the stump skin without much padding and pain develops from the pressure of the bone on the skin and prosthesis. Over time ulceration may occur. Followup one week.
--- NOTE | 2021-05-11 14:58 | WC ---
pt and home health updated that cx results were reviewed by dain trevino np and antibiotic doxycycline will be called in to [facility] in [place], pts preferred pharmacy.
[2021-05-16 11:19] VITALS: BP 101/58; PULSE 84; TEMP 35.8; BMI 24.0
--- NOTE | 2021-05-16 15:36 | PN.PCM_ITS ---
History of Present Illness Date of Service: 05/16/21 Chief Complaint: Nonhealing ulcer right below knee amputation stump with exposed bone History of Wound: 75-year-old male with a left below knee amputation (prior healed wound) and right BKA on 01/10/21 due to complications with transmetatarsal amputation follows up for ulcer of lateral foot with recurrent infections. After he was discharged from the hospital, he was in the inpatient rehab unit and then transferred to TCU. He was discharged home on 02/11/21. Wound care - Restart the wound VAC at 125 mmHg did help with pain, to be changed 3 times per week. No adaptic over the bone. Right knee skin tear will place collagen hydrogel daily covered by gauze. Continue compression with JIGAR wrap. Hgb/A1c was 6.9 on 12/01/20. Prealbumin was 13.5 on 01/11/21. Wound culture obtained on 05/09/21 which was positive for MRSA, he was started on Doxycycline. Wound culture from 03/01/21 showed MRSE and Corynebacterium amycolatum. He is completed Doxycycyline. Operative Pathology from 01/10/21 was negative for osteomyelitis. He had a preoperative culture on 12/01/20. It showed MRSA and Pseudomonas aeroginosa. He was treated with Doxycycline. He states he is a little worried because the left BKA stump also developed a nonhealing ulcer that healed after a revision surgery. Today he has no fever. His appetite is ok. Progress of Wound: Right BKA ulcer is stable. There is no odor. Right knee s kin tear is stable. He is having increased pain today, even with light touch. Objective Data Objective Data Vital Signs: Vital Signs Temp Pulse Resp BP 96.4 F L 84 16 101/58 L 05/16/21 11:19 05/16/21 11:19 05/09/21 10:23 05/16/21 11:19 Oxygen Delivery Method Room Air Body Mass Index (BMI) 24.0 Lab / Micro Data Micro: Microbiology 05/09/21 11:00 Wound - Open/Non-Healing Wound Gram Stain - Final 05/09/21 11:00 Wound - Open/Non-Healing Wound Wound Culture - Final Meth. resistant Staph. aureus 05/09/21 11:00 Wound - Open/Non-Healing Wound Anaerobic Culture - Final No anaerobic bacteria isolated. Charges/Coding Visit Charges Office Visits / Consults: 43290 OV L3 Est Physical Exam Const alert and oriented x3 General Appearance: cooperative HEENT normocephalic Resp normal respiratory effort Cardio regular rate GI non-tender Extremity Extremity Narrative: Bilateral BKA. He has +2 edema on his right leg. Skin Wound Narrative: Right BKA ulcer into the muscle with bone exposure. He has a skin tear on the right knee which is stable. He is having a lot of pain today, even with light touch and is refusing debridement. Neuro CN's II-XII intact bilaterally Psych Appearance: well kempt Debridement Note Debridement Note No debridement was completed: No debridement was completed today Post-Debridement Measurements and Additional Note: Post-Debridement Measurements/Treatment WC - Nurse 1 - General Ulcer Assessment Start: 05/02/21 13:20 Freq: Status: Active Protocol: [email or web address] Activity Type Activity Date Activity User E-Sign Co-Sign Detail Recorded Client Recorded Date Recorded By Document 05/02/21 13:20 DL [id number] 05/02/21 13:28 DL Document 05/09/21 10:23 [facility] [id number] 05/09/21 10:33 BMF Document 05/16/21 11:19 KR [id number] 05/16/21 11:27 KR 05/02/21 05/09/21 05/16/21 13:20 10:23 11:19 - Today's Visit Information Type of service Follow-up Visit Follow-up Visit Follow-up Visit (Physician/SOCIAL SECURITY ASSESSOR (Physician/SOCIAL SECURITY ASSESSOR (Physician/SOCIAL SECURITY ASSESSOR ) ) ) Arrival Mode Wheelchair Wheelchair Wheelchair Transfer Assistance None None Accompanied by Patient Identification Verified (Name & Yes Yes Yes ) Patient Requires Transmission-Based No No Precautions Height and Weight Body Mass Index (BMI) 24.0 24.0 24.0 BMI Classification Normal Normal Normal Vital Signs Temperature (97.8 F-99.1 F) 97.6 F L 96.5 F L 96.4 F L Temperature Source Temporal Temporal Temporal Pulse Rate (60-100) 91 87 84 Pulse Location Monitor Monitor Monitor Respiratory Rate (12-18) 20 H 16 Respiratory rate source Observation Observation Oxygen Delivery Method Room Air Blood Pressure (90/60-120/80) 114/68 114/82 H 101/58 L Blood Pressure Mean (mm Hg) 83 92 72 Source Monitor Monitor Monitor Position Sitting Semi-Fowlers Blood Pressure Location Left Forearm Right Arm History Since Last Visit- (Skip if this is Patient's initial visit) Have you changed medications since your No No No last visit? Any new allergies or adverse reactions No No No Had a fall/change in ADL's that may No No No increase risk of falls Signs or symptoms of abuse and/or No No No neglect since last visit Have you been in the hospital since your No No No last visit? Has dressing in place as prescribed Yes Yes Yes Has compression in place as prescribed Yes Yes N/A Has offloadiing in place as prescribed Yes N/A N/A Experienced any changes in pain level or No No No management Left Footwear Regular Shoe Right Footwear Regular Shoe Pain Scale: 0-10 Numeric Is Patient Pain Free? Yes Yes WC - Nurse 1 - General Ulcer Measurement Start: 05/02/21 13:20 Freq: Status: Active Protocol: Activity Type Activity Date Activity User E-Sign Co-Sign Detail Recorded Client Recorded Date Recorded By Document 05/02/21 13:20 DL [id number] 05/02/21 13:28 DL Document 05/09/21 10:23 BM [id number] 05/09/21 10:33 BMF Document 05/16/21 11:19 KR [id number] 05/16/21 11:27 KR 05/02/21 05/09/21 05/16/21 13:20 10:23 11:19 Wound Center Nurse 1 #9 R Knee -Combined with other wound No -Current Size (cm) - Length 1.5 1.5 1.4 -Current Size (cm) - Width 2 1.3 1.2 -Current Size (cm) - Depth 0.1 0.1 0.2 -Total Square Cm 3.0 1.95 1.68 -Photo Taken Yes No -Epithelialization None Present -Tunneling No -Undermining/Tunneling No -Circular Undermining No -Exudate Amt None Present Medium Small -Exudate Type Serosanguineous Serosanguineous -Wound Margin Distinct, Distinct, Distinct, Outline Outline Outline Attached Attached Attached -Granulation Amt Large (67-100%) Medium (34-66%) Small (1-33%) -Granulation Quality Mccausland [place]ausland Red -Slough/Fibrin Yes -Necrosis Amt None Present (0 Medium (34-66%) Small (1-33%) %) -Necrotic Tissue Type Adherent Slough Adherent Slough -Structure Exposed N/A -Texture (Allison-wound Skin Appearance) Scarring Assessed, Scarring -Moisture (Allison-wound Skin Appearance) No Abnormality Assessed -Color (Allison-wound Skin Appearance) No Abnormality Assessed No Abnormality, Assessed -Temperature (Allison-wound Skin No Abnormality No Abnormality No Abnormality Appearance) (Pt Warm) (Pt Warm) (Pt Warm) -Tenderness on Palpation (Allison-wound No No No Skin Appearance) -Ulcer Cleansing Wound Cleanser Soap and Water Soap and Water -Foul Odor after Cleansing No No No -Anesthetic Used 4% Lidocaine 4% Lidocaine 4% Lidocaine Solution Solution Solution #8- R STUMP cluster -Combined with other wound No -Current Size (cm) - Length 4.7 5.9 5.7 -Current Size (cm) - Width 8 9.4 9.3 -Current Size (cm) - Depth 0.2 0.3 0.3 -Total Square Cm 37.6 55.46 53.01 -Photo Taken No No -Epithelialization None Present -Tunneling No -Undermining/Tunneling No -Circular Undermining No -Exudate Amt Medium Large Medium -Exudate Type Serosanguineous Serosanguineous Serosanguineous -Wound Margin Distinct, Thickened Distinct, Outline Outline Attached Attached -Granulation Amt Medium (34-66%) Large (67-100%) Medium (34-66%) -Granulation Quality Red Mccausland Red -Slough/Fibrin Yes -Necrosis Amt Medium (34-66%) Medium (34-66%) Large (67-100%) -Necrotic Tissue Type Adherent Slough Adherent Slough Adherent Slough -Structure Exposed Bone -Texture (Allison-wound Skin Appearance) Scarring Assessed, Assessed, Scarring Scarring -Moisture (Allison-wound Skin Appearance) No Abnormality Assessed Assessed, Maceration -Color (Allison-wound Skin Appearance) Atrophie Assessed No Abnormality, Philomena Assessed -Temperature (Allison-wound Skin No Abnormality No Abnormality No Abnormality Appearance) (Pt Warm) (Pt Warm) (Pt Warm) -Tenderness on Palpation (Allison-wound Yes No No Skin Appearance) -Ulcer Cleansing Wound Cleanser Soap and Water Soap and Water -Foul Odor after Cleansing No No No -Anesthetic Used 4% Lidocaine 4% Lidocaine 4% Lidocaine Solution,5% Solution Solution Lidocaine Gel WC - Nurse 2 - General Ulcer CM Notes Start: 05/02/21 13:20 Freq: Status: Active Protocol: Activity Type Activity Date Activity User E-Sign Co-Sign Detail Recorded Client Recorded Date Recorded By Document 05/02/21 13:48 [id number] 05/02/21 13:53 Document 05/09/21 10:58 [id number] 05/09/21 11:05 Document 05/16/21 11:55 [id number] 05/16/21 11:56 05/02/21 05/09/21 05/16/21 13:48 10:58 11:55 Wound Center Nurse 2 #9 R Knee -Time 11:01 -Correct Patient No Yes No -Correct Side, Site, Position No Yes No -Correct Procedure No Yes No -Procedure Performed No Yes No -Type of Procedure Debridement -Clinical Debridement Subcutaneous -Tissue Removed Subcutaneous -Post Debridement (cm) - Length 1.5 -Post Debridement (cm) - Width 1.5 -Post Debridement (cm) - Depth 0.1 -Total Square (Post) (cm) 2.25 -Area of Debridement (cm) - Length 1.5 -Area of Debridement (cm) - Width 1.5 -Total Square (Area) (cm) 2.25 -Tunneling No -Undermining/Tunneling No -Circular Undermining No -Wound/Ulcer Outcome Not Healed Not Healed Not Healed -Ulcer Cleansing Rinsed/ Irrigated with Saline -Foul Odor after Cleansing No -Bioengineered Tissue No -Bleeding Controlled with Pressure -Offloading No -Treatment Response Procedure Tolerated Well -Debridement - Subq, 1st 20sq cm No #8- R STUMP cluster -Time 13:50 11:02 -Correct Patient Yes Yes No -Correct Side, Site, Position Yes Yes No -Correct Procedure Yes Yes No -Procedure Performed Yes Yes No -Type of Procedure Debridement Debridement -Clinical Debridement Subcutaneous Subcutaneous -Tissue Removed Subcutaneous Subcutaneous -Post Debridement (cm) - Length 4.5 5.7 -Post Debridement (cm) - Width 8 9 -Post Debridement (cm) - Depth 0.3 0.5 -Total Square (Post) (cm) 36.0 51.3 -Area of Debridement (cm) - Length 4.5 5.7 -Area of Debridement (cm) - Width 8 9 -Total Square (Area) (cm) 36.0 51.3 -Tunneling No No -Undermining/Tunneling No No -Circular Undermining No No -Wound/Ulcer Outcome Not Healed Not Healed Not Healed -Ulcer Cleansing Rinsed/ Rinsed/ Irrigated with Irrigated with Saline Saline -Foul Odor after Cleansing No No -Bioengineered Tissue No No -Bleeding Controlled with Pressure Pressure -Offloading No No -Treatment Response Procedure Procedure Not Tolerated Well Tolerated Well -Debridement - Subq, 1st 20sq cm Yes Yes -Debridement, SubQ, ea addt'l 20sq cm 1 2 or part thereof Pain Scale: 0-10 Numeric Is Patient Pain Free? Yes Yes Yes - Nurse 3 - General Ulcer D/C NN Start: 05/02/21 13:20 Freq: Status: Active Protocol: Activity Type Activity Date Activity User E-Sign Co-Sign Detail Recorded Client Recorded Date Recorded By Document 05/02/21 14:14 DL [id number] 05/02/21 14:16 DL Document 05/09/21 11:12 DL [id number] 05/09/21 11:15 DL Document 05/16/21 12:07 DL [id number] 05/16/21 12:10 DL 05/02/21 05/09/21 05/16/21 14:14 11:12 12:07 Wound Care Nurse 3 #9 R Knee -Ulcer Cleansing Wound Cleanser Rinsed/ Soap and Water Irrigated with Saline -Foul Odor after Cleansing No No No -Primary Dressing Applied Enzymatic -Other Dressing hydrogel hydrogel -Primary Dressing Covered/Secured with Dry Gauze Dry Gauze, Dry Gauze, Secured with Secured with Tape Tape #8- R STUMP cluster -Ulcer Cleansing Rinsed/ dakins Soap and Water Irrigated with Saline -Foul Odor after Cleansing No No No -Other Dressing moist gauze dakins moist moist gauze drsg gauze today -Primary Dressing Covered/Secured with Dry Gauze & Dry Gauze & Dry Gauze & Roll Gauze, Roll Gauze, Roll Gauze, Secured with Secured with Secured with Tape Tape Tape -Other Covering jigar jigar Treatment Response Procedure Procedure Procedure Tolerated Well Tolerated Well Tolerated Well Pain Scale: 0-10 Numeric Is Patient Pain Free? Yes Yes Yes - Visit Discharge Discharge Condition Stable Stable Stable Ambulatory Status Wheelchair Wheelchair Wheelchair Transportation Private Auto Private Auto Facility Type Home Health Home Health Radial Dr[employer] Press Set Up Operator Care Facility Notes: [facility] to restart Vac today. 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: CODE(S): T87.89 - Other complications of amputation stump; L97.912 - Non- pressure chronic ulcer of unspecified part of right lower leg with fat layer exposed (2) Skin ulcer of right knee: CODE(S): L97.819 - Non-pressure chronic ulcer of other part of right lower leg with unspecified severity (3) MRSA (methicillin resistant Staphylococcus aureus) infection: CODE(S): A49.02 - Methicillin resistant Staphylococcus aureus infection, unspecified site (4) Diabetes mellitus type 2 with atherosclerosis of arteries of extremities: CODE(S): E11.59 - Type 2 diabetes mellitus with other circulatory complications; I70.209 - Unspecified atherosclerosis of [place] arteries of extremities, unspecified extremity (5) Peripheral vascular disease due to secondary diabetes: CODE(S): E13.51 - Other specified diabetes mellitus with diabetic peripher al angiopathy without gangrene (6) Status post below knee amputation of right lower extremity: CODE(S): Z89.511 - Acquired absence of right leg below knee (7) History of below-knee amputation of left lower extremity: CODE(S): Z89.512 - Acquired absence of left leg below knee (8) Osteomyelitis, unspecified: CODE(S): M86.9 - Osteomyelitis, unspecified (9) Former smoker: CODE(S): Z87.891 - Personal history of nicotine dependence (10) Diabetes mellitus: CODE(S): E11.9 - Type 2 diabetes mellitus without complications QUALIFIERS: Diabetes mellitus long term care phlebotomist insulin use: with long term care phlebotomist use Diabetes mellitus complication status: with circulatory complication Diabetes mellitus complication detail: with other circulatory complications (11) Debility: CODE(S): R53.81 - Other malaise PLAN: Patient refused debridement today due to the amount of pain his is experiencing today. Wound care - Restart the wound VAC at 125 mmHg did help with pain, to be changed 3 times per week. No adaptic over the bone. Right knee skin tear will place collagen hydrogel daily covered by gauze. Continue compression with JIGAR wrap. Hgb/A1c was 6.9 on 12/01/20. Prealbumin was 13.5 on 01/11/21. Wound culture obtained on 05/09/21 which was positive for MRSA, he was started on Doxycycline. He still has edema of his right BKA stump. He states that he has been started on Lasix by cardiology. Recent wound culture on 03/01/21 showed MRSE, and Corynebacterium amycolatum. He was placed on Doxycycline and will continue it. HgbA1c was 6.9 and 12/01/20. For any elective revision surgery to close the wound over the bone the HgbA1c needs to be less than 8. He needs another level drawn before any surgery is done. With the amount of swelling present, it is impossible to close the wound without shortening the stump. Shortening a little is ok because the prosthesis can adapt. The problem occurs when extensive tissue is removed. Then the BKA stump is too short as there is too much instability with the prosthesis in that instance and then a AKA would need to be done. I want to see much more swelling resolved and the inflammation in the skin edges before proceed with revision of the stump. I should be able to shorten the exposed bone at the time of revision and be able to close the skin. Hopefully it should still be acceptable as a BKA prosthesis. Anticipate 3-6 months before proceeding with revision surgery. In the meantime, I would like to see more granulation tissue over the bone, if possible. Bone will be sent to Pathology to evaluate for osteomyelitis. If positive he will need long-term antibiotics. I will have to debride the flap as well in order to close the stump ulcer. I don't want to remove too much as it will make the prosthesis problematic over time as it will press on the stump skin without much padding and pain develops from the pressure of the bone on the skin and prosthesis. Over time ulceration may occur. Followup one week.
--- NOTE | 2021-05-19 13:59 | WC ---
Call received from [facility] about patient's wound vac not working correctly on Wound/home visit. Nurse recommended to go to [facility] dress[facility] until a new vac was delivered. [facility] was notified of this and shipping out a new machine on and will go back out on Sunday to reapply the vac. Also a new intact blister noted to right medial knee. Aminah Leary notified of these fndings with no new orders.
[2021-05-23 11:00] VITALS: BP 107/58; PULSE 86; TEMP 36.3; BMI 24.0
--- NOTE | 2021-05-23 14:19 | PCM.WC.PN ---
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 After he was discharged from the hospital, he was in the inpatient rehab unit and then transferred to TCU. He was discharged home on 02/11/21. Wound care - Right BKA stump ulcer Dakin's moistened gauze daily covered with ABD. Right knee skin tear will place collagen hydrogel daily covered by gauze. Continue compression with JIGAR wrap. Hgb/A1c was 6.9 on 12/01/20. Prealbumin was 13.5 on 01/11/21. Wound culture obtained on 05/09/21 which was positive for MRSA, he was started on Doxycycline. Wound culture from 03/01/21 showed MRSE and Corynebacterium amycolatum. He is completed Doxycycyline. Operative Pathology from 01/10/21 was negative for osteomyelitis. He had a preoperative culture on 12/01/20. It showed MRSA and Pseudomonas aeroginosa. He was treated with Doxycycline. He states he is a little worried because the left BKA stump also developed a nonhealing ulcer that healed after a revision surgery. Today he has no fever. His appetite is ok. Progress of Wound: Right BKA ulcer is stable. He is having a difficult time with keeping a seal on the wound VAC. Right knee skin tear is stable. Objective Data Objective Data Vital Signs: Vital Signs Temp Pulse Resp BP 97.4 F L 86 16 107/58 L 05/23/21 11:00 05/23/21 11:00 05/09/21 10:23 05/23/21 11:00 Oxygen Delivery Method Room Air Body Mass Index (BMI) 24.0 Lab / Micro Data Micro: Microbiology 05/09/21 11:00 Wound - Open/Non-Healing Wound Gram Stain - Final 05/09/21 11:00 Wound - Open/Non-Healing Wound Wound Culture - Final Meth. resistant Staph. aureus 05/09/21 11:00 Wound - Open/Non-Healing Wound Anaerobic Culture - Final No anaerobic bacteria isolated. Charges/Coding Addendum Addendum: [id number] right knee ulcer Procedures Integumentary 111xxx-113xx: [id number] Alejandra musc/fascia 20 sq cm/< (right BKA stump ulcer) Add On Codes: 42915 Alejandra musc/fascia add-on (x2) Physical Exam Const alert and oriented x3 General Appearance: cooperative HEENT normocephalic Lymph Lymphatic: no lymphedema noted Resp normal respiratory effort Cardio regular rate GI non-tender Palpation: soft Extremity normal capillary refill Extremity Narrative: Right leg edema Skin Wound Narrative: Right BKA stump ulcer is stable with muscle and bone exposure. Right knee skin tear is stable. Neuro CN's II-XII intact bilaterally Psych Appearance: grossly normal Debridement Note Debridement Note Wound debrided: BKA stump ulcer Laterality: Right Wound Grade/Stage: Stage IV Type of Debridement: Excisional debridement Anesthesia Used: 5% Lidocaine Gel Depth: Down to and including healthy tissue, in the subcutaneous layer and to muscle Percentage of wound debrided: 100 Instrument Used: 5mm curette Tissue Removed: Subcutaneous tissue and slough into the muscle with bone exposure. Severity: Fat Layer Exposed Amount of bleeding with debridement: Mild Bleeding Controlled with: Pressure Patient tolerated procedure: Patient tolerated procedure well Post-Debridement Measurements and Additional Note: Post-Debridement Measurements/Treatment - Nurse 1 - General Ulcer Assessment Start: 05/02/21 13:20 Freq: Status: Active Protocol: GREG Activity Type Activity Date Activity User E-Sign Co-Sign Detail Recorded Client Recorded Date Recorded By Document 05/02/21 13:20 DL [id number] 05/02/21 13:28 DL Document 05/09/21 10:23 [facility] [id number] 05/09/21 10:33 [facility] Document 05/16/21 11:19 KR [id number] 05/16/21 11:27 KR Document 05/23/21 11:00 KR [id number] 05/23/21 11:12 KR 05/02/21 05/09/21 05/16/21 13:20 10:23 11:19 - Today's Visit Information Type of service Follow-up Visit Follow-up Visit Follow-up Visit (Physician/SILVER [employer]LLOWARE ASSEMBLER (Physician/SIL[employer] HOLLOW[employer] ASSEMBLER (Physician/SILVER HOLLOWARE ASSEMBLER ) ) ) Arrival Mode Wheelchair Wheelchair Wheelchair Transfer Assistance None None Accompanied by Patient Identification Verified (Name & Yes Yes Yes ) Patient Requires Transmission-Based No No Precautions Height and Weight Body Mass Index (BMI) 24.0 24.0 24.0 BMI Classification Normal Normal Normal Vital Signs Temperature (97.8 F-99.1 F) 97.6 F L 96.5 F L 96.4 F L Temperature Source Temporal Temporal Temporal Pulse Rate (60-100) 91 87 84 Pulse Location Monitor Monitor Monitor Respiratory Rate (12-18) 20 H 16 Respiratory rate source Observation Observation Oxygen Delivery Method Room Air Blood Pressure (90/60-120/80) 114/68 114/82 H 101/58 L Blood Pressure Mean (mm Hg) 83 92 72 Source Monitor Monitor Monitor Position Sitting Semi-Fowlers Blood Pressure Location Left Forearm Right Arm History Since Last Visit- (Skip if this is Patient's initial visit) Have you changed medications since your No No No last visit? Any new allergies or adverse reactions No No No Had a fall/change in ADL's that may No No No increase risk of falls Signs or symptoms of abuse and/or No No No neglect since last visit Have you been in the hospital since your No No No last visit? Has dressing in place as prescribed Yes Yes Yes Has compression in place as prescribed Yes Yes N/A Has offloadiing in place as prescribed Yes N/A N/A Experienced any changes in pain level or No No No management Left Footwear Regular Shoe Right Footwear Regular Shoe Pain Scale: 0-10 Numeric Is Patient Pain Free? Yes Yes 05/23/21 11:00 - Today's Visit Information Type of service Follow-up Visit (Physician/[employer]LLOW[employer]ER ) Arrival Mode Wheelchair Transfer Assistance Accompanied by Patient Identification Verified (Name & Yes ) Patient Requires Transmission-Based Precautions Height and Weight Body Mass Index (BMI) 24.0 BMI Classification Normal Vital Signs Temperature (97.8 F-99.1 F) 97.4 F L Temperature Source Temporal Pulse Rate (60-100) 86 Pulse Location Monitor Respiratory Rate (12-18) Respiratory rate source Oxygen Delivery Method Blood Pressure (90/60-120/80) 107/58 L Blood Pressure Mean (mm Hg) 74 Source Monitor Position Sitting Blood Pressure Location Right Arm History Since Last Visit- (Skip if this is Patient's initial visit) Have you changed medications since your No last visit? Any new allergies or adverse reactions No Had a fall/change in ADL's that may No increase risk of falls Signs or symptoms of abuse and/or No neglect since last visit Have you been in the hospital since your No last visit? Has dressing in place as prescribed Yes Has compression in place as prescribed N/A Has offloadiing in place as prescribed N/A Experienced any changes in pain level or No management Left Footwear Regular Shoe Right Footwear Regular Shoe Pain Scale: 0-10 Numeric Is Patient Pain Free? Yes WC - Nurse 1 - General Ulcer Measurement Start: 05/02/21 13:20 Freq: Status: Active Protocol: Activity Type Activity Date Activity User E-Sign Co-Sign Detail Recorded Client Recorded Date Recorded By Document 05/02/21 13:20 DL [id number] 05/02/21 13:28 DL Document 05/09/21 10:23 BMF [id number] 05/09/21 10:33 BMF Document 05/16/21 11:19 KR [id number] 05/16/21 11:27 KR Document 05/23/21 11:00 KR [id number] 05/23/21 11:12 KR 05/02/21 05/09/21 05/16/21 13:20 10:23 11:19 Wound Center Nurse 1 #9 R Knee -Combined with other wound No -Current Size (cm) - Length 1.5 1.5 1.4 -Current Size (cm) - Width 2 1.3 1.2 -Current Size (cm) - Depth 0.1 0.1 0.2 -Total Square Cm 3.0 1.95 1.68 -Photo Taken Yes No -Epithelialization None Present -Tunneling No -Undermining/Tunneling No -Circular Undermining No -Exudate Amt None Present Medium Small -Exudate Type Serosanguineous Serosanguineous -Wound Margin Distinct, Distinct, Distinct, Outline Outline Outline Attached Attached Attached -Granulation Amt Large (67-100%) Medium (34-66%) Small (1-33%) -Granulation Quality [place] Red -Slough/Fibrin Yes -Necrosis Amt None Present (0 Medium (34-66%) Small (1-33%) %) -Necrotic Tissue Type Adherent Slough Adherent Slough -Structure Exposed N/A -Texture (Allison-wound Skin Appearance) Scarring Assessed, Scarring -Moisture (Allison-wound Skin Appearance) No Abnormality Assessed -Color (Allison-wound Skin Appearance) No Abnormality Assessed No Abnormality, Assessed -Temperature (Allison-wound Skin No Abnormality No Abnormality No Abnormality Appearance) (Pt Warm) (Pt Warm) (Pt Warm) -Tenderness on Palpation (Allison-wound No No No Skin Appearance) -Ulcer Cleansing Wound Cleanser Soap and Water Soap and Water -Foul Odor after Cleansing No No No -Anesthetic Used 4% Lidocaine 4% Lidocaine 4% Lidocaine Solution Solution Solution #8- R STUMP cluster -Combined with other wound No -Current Size (cm) - Length 4.7 5.9 5.7 -Current Size (cm) - Width 8 9.4 9.3 -Current Size (cm) - Depth 0.2 0.3 0.3 -Total Square Cm 37.6 55.46 53.01 -Photo Taken No No -Epithelialization None Present -Tunneling No -Undermining/Tunneling No -Circular Undermining No -Exudate Amt Medium Large Medium -Exudate Type Serosanguineous Serosanguineous Serosanguineous -Wound Margin Distinct, Thickened Distinct, Outline Outline Attached Attached -Granulation Amt Medium (34-66%) Large (67-100%) Medium (34-66%) -Granulation Quality Red [place] Red -Slough/Fibrin Yes -Necrosis Amt Medium (34-66%) Medium (34-66%) Large (67-100%) -Necrotic Tissue Type Adherent Slough Adherent Slough Adherent Slough -Structure Exposed Bone -Texture (Allison-wound Skin Appearance) Scarring Assessed, Assessed, Scarring Scarring -Moisture (Allison-wound Skin Appearance) No Abnormality Assessed Assessed, Maceration -Color (Allison-wound Skin Appearance) Atrophie Assessed No Abnormality, Philomena Assessed -Temperature (Allison-wound Skin No Abnormality No Abnormality No Abnormality Appearance) (Pt Warm) (Pt Warm) (Pt Warm) -Tenderness on Palpation (Allison-wound Yes No No Skin Appearance) -Ulcer Cleansing Wound Cleanser Soap and Water Soap and Water -Foul Odor after Cleansing No No No -Anesthetic Used 4% Lidocaine 4% Lidocaine 4% Lidocaine Solution,5% Solution Solution Lidocaine Gel 05/23/21 11:00 Wound Center Nurse 1 #9 R Knee -Combined with other wound -Current Size (cm) - Length 1 -Current Size (cm) - Width 0.8 -Current Size (cm) - Depth 0.1 -Total Square Cm 0.8 -Photo Taken -Epithelialization -Tunneling -Undermining/Tunneling -Circular Undermining -Exudate Amt Small -Exudate Type Serosanguineous -Wound Margin Distinct, Outline Attached -Granulation Amt Small (1-33%) -Granulation Quality Red -Slough/Fibrin -Necrosis Amt None Present (0 %) -Necrotic Tissue Type -Structure Exposed -Texture (Allison-wound Skin Appearance) Assessed, Scarring -Moisture (Allison-wound Skin Appearance) No Abnormality, Assessed -Color (Allison-wound Skin Appearance) No Abnormality, Assessed -Temperature (Allison-wound Skin No Abnormality Appearance) (Pt Warm) -Tenderness on Palpation (Allison-wound No Skin Appearance) -Ulcer Cleansing Soap and Water -Foul Odor after Cleansing No -Anesthetic Used 5% Lidocaine Gel #8- R STUMP cluster -Combined with other wound -Current Size (cm) - Length 6.3 -Current Size (cm) - Width 9 -Current Size (cm) - Depth 0.4 -Total Square Cm 56.7 -Photo Taken -Epithelialization -Tunneling -Undermining/Tunneling -Circular Undermining -Exudate Amt Medium -Exudate Type Serosanguineous -Wound Margin Distinct, Outline Attached -Granulation Amt Medium (34-66%) -Granulation Quality Red -Slough/Fibrin -Necrosis Amt Medium (34-66%) -Necrotic Tissue Type Adherent Slough -Structure Exposed -Texture (Allison-wound Skin Appearance) Assessed, Scarring -Moisture (Allison-wound Skin Appearance) No Abnormality, Assessed -Color (Allison-wound Skin Appearance) No Abnormality, Assessed -Temperature (Allison-wound Skin No Abnormality Appearance) (Pt Warm) -Tenderness on Palpation (Allison-wound No Skin Appearance) -Ulcer Cleansing Soap and Water -Foul Odor after Cleansing No -Anesthetic Used 5% Lidocaine Gel WC - Nurse 2 - General Ulcer CM Notes Start: 05/02/21 13:20 Freq: Status: Active Protocol: Activity Type Activity Date Activity User E-Sign Co-Sign Detail Recorded Client Recorded Date Recorded By Document 05/02/21 13:48 [email or web address] [id number] 05/02/21 13:53 JF Document 05/09/21 10:58 JF [id number] 05/09/21 11:05 Document 05/16/21 11:55 [id number] 05/16/21 11:56 Document 05/23/21 11:39 [id number] 05/23/21 11:50 05/02/21 05/09/21 05/16/21 13:48 10:58 11:55 Wound Center Nurse 2 #9 R Knee -Time 11:01 -Correct Patient No Yes No -Correct Side, Site, Position No Yes No -Correct Procedure No Yes No -Procedure Performed No Yes No -Type of Procedure Debridement -Clinical Debridement Subcutaneous -Tissue Removed Subcutaneous -Post Debridement (cm) - Length 1.5 -Post Debridement (cm) - Width 1.5 -Post Debridement (cm) - Depth 0.1 -Total Square (Post) (cm) 2.25 -Area of Debridement (cm) - Length 1.5 -Area of Debridement (cm) - Width 1.5 -Total Square (Area) (cm) 2.25 -Tunneling No -Undermining/Tunneling No -Circular Undermining No -Wound/Ulcer Outcome Not Healed Not Healed Not Healed -Ulcer Cleansing Rinsed/ Irrigated with Saline -Foul Odor after Cleansing No -Bioengineered Tissue No -Bleeding Controlled with Pressure -Offloading No -Type of Offloading -Treatment Response Procedure Tolerated Well -Debridement - Subq, 1st 20sq cm No #8- R STUMP cluster -Time 13:50 11:02 -Correct Patient Yes Yes No -Correct Side, Site, Position Yes Yes No -Correct Procedure Yes Yes No -Procedure Performed Yes Yes No -Type of Procedure Debridement Debridement -Clinical Debridement Subcutaneous Subcutaneous -Tissue Removed Subcutaneous Subcutaneous -Post Debridement (cm) - Length 4.5 5.7 -Post Debridement (cm) - Width 8 9 -Post Debridement (cm) - Depth 0.3 0.5 -Total Square (Post) (cm) 36.0 51.3 -Area of Debridement (cm) - Length 4.5 5.7 -Area of Debridement (cm) - Width 8 9 -Total Square (Area) (cm) 36.0 51.3 -Tunneling No No -Undermining/Tunneling No No -Circular Undermining No No -Wound/Ulcer Outcome Not Healed Not Healed Not Healed -Ulcer Cleansing Rinsed/ Rinsed/ Irrigated with Irrigated with Saline Saline -Foul Odor after Cleansing No No -Bioengineered Tissue No No -Bleeding Controlled with Pressure Pressure -Offloading No No -Treatment Response Procedure Procedure Not Tolerated Well Tolerated Well -Debridement - Subq, 1st 20sq cm Yes Yes -Debridement, SubQ, ea addt'l 20sq cm 1 2 or part thereof -Debridement - Muscle / Fascia, 1st 20sq cm -Debridement, Muscle/Fascia, ea addt'l 20sq cm or part thereof Pain Scale: 0-10 Numeric Is Patient Pain Free? Yes Yes Yes 05/23/21 11:39 Wound Center Nurse 2 #9 R Knee -Time 11:42 -Correct Patient Yes -Correct Side, Site, Position Yes -Correct Procedure Yes -Procedure Performed Yes -Type of Procedure Debridement -Clinical Debridement Subcutaneous -Tissue Removed Subcutaneous -Post Debridement (cm) - Length 0.7 -Post Debridement (cm) - Width 1.0 -Post Debridement (cm) - Depth 0.1 -Total Square (Post) (cm) 0.70 -Area of Debridement (cm) - Length 0.7 -Area of Debridement (cm) - Width 1.0 -Total Square (Area) (cm) 0.70 -Tunneling No -Undermining/Tunneling No -Circular Undermining No -Wound/Ulcer Outcome Not Healed -Ulcer Cleansing Rinsed/ Irrigated with Saline -Foul Odor after Cleansing No -Bioengineered Tissue No -Bleeding Controlled with Pressure -Offloading Yes -Type of Offloading Knee Walker -Treatment Response Procedure Tolerated Well -Debridement - Subq, 1st 20sq cm Yes #8- R STUMP cluster -Time 11:45 -Correct Patient Yes -Correct Side, Site, Position Yes -Correct Procedure Yes -Procedure Performed Yes -Type of Procedure Debridement -Clinical Debridement Muscle / Fascia -Tissue Removed Muscle -Post Debridement (cm) - Length 5.6 -Post Debridement (cm) - Width 9.4 -Post Debridement (cm) - Depth 0.8 -Total Square (Post) (cm) 52.64 -Area of Debridement (cm) - Length 5.6 -Area of Debridement (cm) - Width 9.4 -Total Square (Area) (cm) 52.64 -Tunneling No -Undermining/Tunneling No -Circular Undermining No -Wound/Ulcer Outcome Not Healed -Ulcer Cleansing Rinsed/ Irrigated with Saline -Foul Odor after Cleansing No -Bioengineered Tissue No -Bleeding Controlled with Pressure -Offloading No -Treatment Response Procedure Tolerated Well -Debridement - Subq, 1st 20sq cm No -Debridement, SubQ, ea addt'l 20sq cm or part thereof -Debridement - Muscle / Fascia, 1st Yes 20sq cm -Debridement, Muscle/Fascia, ea addt'l 2 20sq cm or part thereof Pain Scale: 0-10 Numeric Is Patient Pain Free? Yes - Nurse 3 - General Ulcer D/C NN Start: 05/02/21 13:20 Freq: Status: Active Protocol: Activity Type Activity Date Activity User E-Sign Co-Sign Detail Recorded Client Recorded Date Recorded By Document 05/02/21 14:14 DL [id number] 05/02/21 14:16 DL Document 05/09/21 11:12 DL [id number] 05/09/21 11:15 DL Document 05/16/21 12:07 DL [id number] 05/16/21 12:10 DL Document 05/23/21 11:54 KR [id number] 05/23/21 11:55 KR 05/02/21 05/09/21 05/16/21 14:14 11:12 12:07 Wound Care Nurse 3 #9 R Knee -Ulcer Cleansing Wound Cleanser Rinsed/ Soap and Water Irrigated with Saline -Foul Odor after Cleansing No No No -Primary Dressing Applied Enzymatic -Other Dressing hydrogel hydrogel -Primary Dressing Covered/Secured with Dry Gauze Dry Gauze, Dry Gauze, Secured with Secured with Tape Tape #8- R STUMP cluster -Ulcer Cleansing Rinsed/ dakins Soap and Water Irrigated with Saline -Foul Odor after Cleansing No No No -Other Dressing moist gauze dakins moist moist gauze drsg gauze today -Primary Dressing Covered/Secured with Dry Gauze & Dry Gauze & Dry Gauze & Roll Gauze, Roll Gauze, Roll Gauze, Secured with Secured with Secured with Tape Tape Tape -Other Covering jigar jigar Treatment Response Procedure Procedure Procedure Tolerated Well Tolerated Well Tolerated Well Pain Scale: 0-10 Numeric Is Patient Pain Free? Yes Yes Yes WC - Visit Discharge Discharge Condition Stable Stable Stable Ambulatory Status Wheelchair Wheelchair Wheelchair Transportation Private Auto Private Auto Accompanied by Facility Type Home Health Home Health Phone Technician Care Facility Notes: [facility] to restart Vac today. Orders Sent Yes Yes Yes 05/23/21 11:54 Wound Care Nurse 3 #9 R Knee -Ulcer Cleansing -Foul Odor after Cleansing -Primary Dressing Applied C Hydrogel ($) -Other Dressing -Primary Dressing Covered/Secured with Dry Gauze,Dry Gauze & Roll Gauze,Secured with Tape #8- R STUMP cluster -Ulcer Cleansing Rinsed/ Irrigated with Saline -Foul Odor after Cleansing -Other Dressing wet to dry -Primary Dressing Covered/Secured with Dry Gauze,Dry Gauze & Roll Gauze,Secured with Tape -Other Covering Treatment Response Pain Scale: 0-10 Numeric Is Patient Pain Free? Yes WC - Visit Discharge Discharge Condition Stable Ambulatory Status Wheelchair Transportation Private Auto Accompanied by Facility Type Notes: Orders Sent Additional Wound Wound debrided: knee ulcer Laterality: Right Type of Debridement: Excisional debridement Anesthesia Used: 5% Lidocaine Gel Depth: Down to and including healthy tissue and in the subcutaneous layer Percentage of wound debrided: 100 Instrument Used: 3mm curette Tissue Removed: Subcutaneous tissue and slough Severity: Limited To Skin Breakdown Amount of bleeding with debridement: Mild Bleeding Controlled with: Pressure Patient tolerated procedure: Patient tolerated procedure well Assessment/Plan Assessment/Plan (1) 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 with fat layer exposed: CODE(S): T87.89 - Other complications of amputation stump; L97.912 - Non-pressure chronic ulcer of unspecified part of right lower leg with fat layer exposed (2) Osteomyelitis, unspecified: CODE(S): M86.9 - Osteomyelitis, unspecified (3) Skin ulcer of right knee: CODE(S): L97.819 - Non-pressure chronic ulcer of other part of right lower leg with unspecified severity (4) Diabetes mellitus: CODE(S): E11.9 - Type 2 diabetes mellitus without complications QUALIFIERS: Diabetes mellitus shelter insulin use: with vermin exterminator use Diabetes mellitus complication status: with circulatory complication Diabetes mellitus complication detail: with other circulatory complications (5) Debility: CODE(S): R53.81 - Other malaise (6) Below-knee amputation of right lower extremity: CODE(S): S88.111A - Complete traumatic amputation at level between knee and ankle, right lower leg, initial encounter (7) History of below-knee amputation of left lower extremity: CODE(S): Z89.512 - Acquired absence of left leg below knee (8) Acute on chronic systolic congestive heart failure: CODE(S): I50.23 - Acute on chronic systolic (congestive) heart failure PLAN: Wound care - DC the wound VAC since he is having so many issues with the wound VAC working properly and with pain control. Start Dakins moistened gauze covered with ABD daily to the right BKA stump ulcer. Right knee skin tear will place collagen hydrogel daily covered by gauze. Continue compression with JIGAR wrap. Hgb/A1c was 6.9 on 12/01/20. Prealbumin was 13.5 on 01/11/21. Wound culture obtained on 05/09/21 which was positive for MRSA, he was started on Doxycycline. He still has edema of his right BKA stump. He states that he has been started on Lasix by cardiology. Discussed decreasing sodium intake because the edema could be related to his CHF. Wound culture on 03/01/21 showed MRSE, and Corynebacterium amycolatum. He was placed on Doxycycline and will continue it. HgbA1c was 6.9 and 12/01/20. For any elective revision surgery to close the wound over the bone the HgbA1c needs to be less than 8. He needs another level drawn before any surgery is done. With the amount of swelling present, it is impossible to close the wound without shortening the stump. Shortening a little is ok because the prosthesis can adapt. The problem occurs when extensive tissue is removed. Then the BKA stump is too short as there is too much instability with the prosthesis in that instance and then a AKA would need to be done. I want to see much more swelling resolved and the inflammation in the skin edges before proceed with revision of the stump. I should be able to shorten the exposed bone at the time of revision and be able to close the skin. Hopefully it should still be acceptable as a BKA prosthesis. Anticipate 3-6 months before proceeding with revision surgery. In the meantime, I would like to see more granulation tissue over the bone, if possible. Bone will be sent to Pathology to evaluate for osteomyelitis. If positive he will need shelter antibiotics. I will have to debride the flap as well in order to close the stump ulcer. I don't want to remove too much as it will make the prosthesis problematic over time as it will press on the stump skin without much padding and pain develops from the pressure of the bone on the skin and prosthesis. Over time ulceration may occur. Followup two weeks.
== END 2021-05-31 23:59 ==
LOC: WC 11:15
PROVIDERS: PCP Family Medicine; Visit Provider Nurse Practitioner Family
DX: E11.621 Type 2 diabetes mellitus with foot ulcer (principal); T87.89 Other complications of amputation stump; Y83.8 Other surgical procedures as the cause of abnormal reaction of the patient, or of later complication, without mention of misadventure at the time of the procedure; L97.812 Non-pressure chronic ulcer of other part of right lower leg with fat layer exposed; E11.51 Type 2 diabetes mellitus with diabetic peripheral angiopathy without gangrene; Z86.14 Personal history of Methicillin resistant Staphylococcus aureus infection; Z87.891 Personal history of nicotine dependence; S81.011A Laceration without foreign body, right knee, initial encounter; X58.XXXA Exposure to other specified factors, initial encounter; L97.811 Non-pressure chronic ulcer of other part of right lower leg limited to breakdown of skin
CPT/HCPCS: 11042; 11043; 11045; 11046; 87070; 87075; 87077; 87186; 87205; 99213; G0463

== ENCOUNTER 2021-06-06 11:15 | Outpatient (RCR) | payer MEDICARE, OTHER, SELFPAY ==
[2021-06-01 00:30] VITALS: BP 107/58; PULSE 86; RESP 16; TEMP 36.3; BMI 24.0
[2021-06-06 11:18] VITALS: BP 97/51; PULSE 85; TEMP 36.3; BMI 24.0
--- NOTE | 2021-06-06 12:01 | PN.PCM_ITS ---
History of Present Illness Date of Service: 06/06/21 Chief Complaint: Nonhealing ulcer right below knee amputation stump with exposed bone History of Wound: 75-year-old male with a left below knee amputation (prior healed wound) and right BKA on 01/10/21 due to complications with transmetatarsal amputation follows up for ulcer of lateral foot with recurrent infections. After he was discharged from the hospital, he was in the inpatient rehab unit and then transferred to TCU. He was discharged home on 02/11/21. Wound care - Right BKA stump ulcer Dakin's moistened gauze daily covered with ABD. Right knee skin tear will place collagen hydrogel daily covered by gauze. Continue compression with JIGAR wrap. Hgb/A1c was 6.9 on 12/01/20. Prealbumin was 13.5 on 01/11/21. Wound culture obtained on 05/09/21 which was positive for MRSA, he was started on Doxycycline, which he completed. Wound culture from 03/01/21 showed MRSE and Corynebacterium amycolatum. He completed Doxycycline. Operative Pathology from 01/10/21 was negative for osteomyelitis. He had a preoperative culture on 12/01/20. It showed MRSA and Pseudomonas aeroginosa. He was treated with Doxycycline. He states he is a little worried because the left BKA stump also developed a nonhealing ulcer that healed after a revision surgery. Today he has no fever. His appetite is ok. Progress of Wound: Right BKA stump ulcer is stable, there continues to be bone exposure but the over ulcer is not as deep. Right knee skin tear in improving. Objective Data Objective Data Vital Signs: Vital Signs Temp Pulse Resp BP 97.3 F L 85 16 97/51 L 06/06/21 11:18 06/06/21 11:18 06/01/21 00:30 06/06/21 11:18 Body Mass Index (BMI) 24.0 Charges/Coding Procedures Integumentary 111xxx-113xx: 45588 Alejandra subq tissue 20 sq cm/< Add On Codes: 50604 Alejandra subq tissue add-on (x2) Physical Exam Const alert and oriented x3 General Appearance: cooperative HEENT normocephalic Head and Scalp: atraumatic Eyes PERRL Lymph Lymphatic: no lymphedema noted Resp normal respiratory effort Cardio regular rate GI non-tender Palpation: soft Extremity General Extremity: edema Skin Wound Narrative: Right BKA ulcer is pink with bone exposure. Right knee skin tear is improving. Neuro CN's II-XII intact bilaterally Psych Appearance: grossly normal Debridement Note Debridement Note Wound debrided: BKA stump ulcer Laterality: Right Wound Grade/Stage: Stage IV Type of Debridement: Excisional debridement Anesthesia Used: 5% Lidocaine Gel Depth: Down to and including healthy tissue and in the subcutaneous layer Percentage of wound debrided: 100 Instrument Used: 7mm curette Tissue Removed: Subcutaneous tissue and slough Severity: Fat Layer Exposed Amount of bleeding with debridement: Mild Bleeding Controlled with: Pressure Patient tolerated procedure: Patient tolerated procedure well Post-Debridement Measurements and Additional Note: Post-Debridement Measurements/Treatment - Nurse 1 - General Ulcer Assessment Start: 06/06/21 11:17 Freq: Status: Active Protocol: GREG Activity Type Activity Date Activity User E-Sign Co-Sign Detail Recorded Client Recorded Date Recorded By Document 06/06/21 11:18 CAROL [id number] 06/06/21 11:28 CAROL 06/06/21 11:18 - Today's Visit Information Type of service Follow-up Visit (Physician/STAFFING CONSULTANT ) Accompanied by Patient Identification Verified (Name & Yes ) Height and Weight Body Mass Index (BMI) 24.0 BMI Classification Normal Vital Signs Temperature (97.8 F-99.1 F) 97.3 F L Temperature Source Temporal Pulse Rate (60-100) 85 Pulse Location Monitor Blood Pressure (90/60-120/80) 97/51 L Blood Pressure Mean (mm Hg) 66 Source Monitor History Since Last Visit- (Skip if this is Patient's initial visit) Have you changed medications since your No last visit? Any new allergies or adverse reactions No Had a fall/change in ADL's that may No increase risk of falls Signs or symptoms of abuse and/or No neglect since last visit Have you been in the hospital since your No last visit? Has dressing in place as prescribed Yes Has compression in place as prescribed Yes Has offloadiing in place as prescribed N/A Experienced any changes in pain level or No management Left Footwear Regular Shoe Right Footwear Regular Shoe WC - Nurse 1 - General Ulcer Measurement Start: 06/06/21 11:17 Freq: Status: Active Protocol: Activity Type Activity Date Activity User E-Sign Co-Sign Detail Recorded Client Recorded Date Recorded By Document 06/06/21 11:18 CAROL [id number] 06/06/21 11:28 AK 06/06/21 11:18 Wound Center Nurse 1 #9 R Knee -Combined with other wound No -Current Size (cm) - Length 5 -Current Size (cm) - Width 8.8 -Current Size (cm) - Depth 0.2 -Total Square Cm 44.0 -Photo Taken No -Tunneling No -Undermining/Tunneling No -Circular Undermining No -Change in Wound Grade/Stage No -Exudate Amt Small -Exudate Type Serosanguineous -Wound Margin Distinct, Outline Attached -Granulation Amt Medium (34-66%) -Granulation Quality N/A -Slough/Fibrin Yes -Necrosis Amt Medium (34-66%) -Necrotic Tissue Type Adherent Slough -Structure Exposed N/A -Texture (Allison-wound Skin Appearance) No Abnormality, Assessed -Moisture (Allison-wound Skin Appearance) No Abnormality, Assessed -Color (Allison-wound Skin Appearance) No Abnormality, Assessed -Temperature (Allison-wound Skin No Abnormality Appearance) (Pt Warm) -Tenderness on Palpation (Allison-wound No Skin Appearance) -Ulcer Cleansing Rinsed/ Irrigated with Saline -Foul Odor after Cleansing No -Anesthetic Used 4% Lidocaine Solution WC - Nurse 2 - General Ulcer CM Notes Start: 06/06/21 11:17 Freq: Status: Active Protocol: Activity Type Activity Date Activity User E-Sign Co-Sign Detail Recorded Client Recorded Date Recorded By Document 06/06/21 11:41 [id number] 06/06/21 11:47 06/06/21 11:41 Wound Center Nurse 2 -Time 11:43 -Correct Patient Yes -Correct Side, Site, Position Yes -Correct Procedure Yes -Procedure Performed Yes -Type of Procedure Debridement -Clinical Debridement Subcutaneous -Tissue Removed Subcutaneous -Post Debridement (cm) - Length 0.5 -Post Debridement (cm) - Width 0.2 -Post Debridement (cm) - Depth 0.1 -Total Square (Post) (cm) 0.10 -Area of Debridement (cm) - Length 0.5 -Area of Debridement (cm) - Width 0.2 -Total Square (Area) (cm) 0.10 -Tunneling No -Undermining/Tunneling No -Circular Undermining No -Wound/Ulcer Outcome Not Healed -Ulcer Cleansing Rinsed/ Irrigated with Saline -Foul Odor after Cleansing No -Bioengineered Tissue No -Bleeding Controlled with Pressure -Offloading No -Treatment Response Procedure Tolerated Well -Debridement - Subq, 1st 20sq cm Yes #8- R STUMP cluster -Time 11:43 -Correct Patient Yes -Correct Side, Site, Position Yes -Correct Procedure Yes -Procedure Performed Yes -Type of Procedure Debridement -Clinical Debridement Subcutaneous -Tissue Removed Subcutaneous -Post Debridement (cm) - Length 4.6 -Post Debridement (cm) - Width 9.2 -Post Debridement (cm) - Depth 0.5 -Total Square (Post) (cm) 42.32 -Area of Debridement (cm) - Length 4.6 -Area of Debridement (cm) - Width 9.2 -Total Square (Area) (cm) 42.32 -Tunneling No -Undermining/Tunneling No -Circular Undermining No -Wound/Ulcer Outcome Not Healed -Ulcer Cleansing Rinsed/ Irrigated with Saline -Foul Odor after Cleansing No -Bioengineered Tissue No -Bleeding Controlled with Pressure -Offloading No -Treatment Response Procedure Tolerated Well -Debridement - Subq, 1st 20sq cm Yes -Debridement, SubQ, ea addt'l 20sq cm 2 or part thereof Pain Scale: 0-10 Numeric Is Patient Pain Free? 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 with fat layer exposed: CODE(S): T87.89 - Other complications of amputation stump; L97.912 - Non- pressure chronic ulcer of unspecified part of right lower leg with fat layer exposed (2) Osteomyelitis, unspecified: CODE(S): M86.9 - Osteomyelitis, unspecified (3) Skin ulcer of right knee: CODE(S): L97.819 - Non-pressure chronic ulcer of other part of right lower leg with unspecified severity (4) Diabetes mellitus: CODE(S): E11.9 - Type 2 diabetes mellitus without complications QUALIFIERS: Diabetes mellitus penitentiary insulin use: with terminal manager use Diabetes mellitus complication status: with circulatory complication Diabetes mellitus complication detail: with other circulatory complications (5) Debility: CODE(S): R53.81 - Other malaise (6) Below-knee amputation of right lower extremity: CODE(S): S88.111A - Complete traumatic amputation at level between knee and ankle, right lower leg, initial encounter (7) Below-knee amputation of left lower extremity: CODE(S): S88.112A - Complete traumatic amputation at level between knee and ankle, left lower leg, initial encounter (8) Acute on chronic systolic congestive heart failure: CODE(S): I50.23 - Acute on chronic systolic (congestive) heart failure (9) Leg edema, right: CODE(S): R60.0 - Localized edema PLAN: Wound care - Dakins moistened gauze covered with ABD daily to the r ight BKA stump ulcer. Right knee skin tear will place collagen hydrogel daily covered by gauze. Continue compression with JIGAR wrap up thigh to help with the edema. Hgb/A1c was 6.9 on 12/01/20. Prealbumin was 13.5 on 01/11/21. Wound culture obtained on 05/09/21 which was positive for MRSA, he has completed Doxycycline. He still has edema of his right BKA stump. He states that he has been started on Lasix by cardiology. Discussed decreasing sodium intake because the edema could be related to his CHF. JIGAR wrap thigh for compression to help with edema. Wound culture on 03/01/21 showed MRSE, and Corynebacterium amycolatum. He was placed on Doxycycline and will continue it. HgbA1c was 6.9 and 12/01/20. For any elective revision surgery to close the wound over the bone the HgbA1c needs to be less than 8. He needs another level drawn before any surgery is done. With the amount of swelling present, it is impossible to close the wound without shortening the stump. Shortening a little is ok because the prosthesis can adapt. The problem occurs when extensive tissue is removed. Then the BKA stump is too short as there is too much instability with the prosthesis in that instance and then a AKA would need to be done. I want to see much more swelling resolved and the inflammation in the skin edges before proceed with revision of the stump. I should be able to shorten the exposed bone at the time of revision and be able to close the skin. Hopefully it should still be acceptable as a BKA prosthesis. Anticipate 3-6 months before proceeding with revision surgery. In the meantime, I would like to see more granulation tissue over the bone, if possible. Bone will be sent to Pathology to evaluate for osteomyelitis. If positive he will need penitentiary antibiotics. I will have to debride the flap as well in order to close the stump ulcer. I don't want to remove too much as it will make the prosthesis problematic over time as it will press on the stump skin without much padding and pain develops from the pressure of the bone on the skin and prosthesis. Over time ulceration may occur. Followup two weeks.
== END 2021-07-01 23:59 ==
LOC: WC 11:15
PROVIDERS: PCP Family Medicine; Visit Provider Nurse Practitioner Family
DX: E11.621 Type 2 diabetes mellitus with foot ulcer (principal); T87.89 Other complications of amputation stump; Y83.8 Other surgical procedures as the cause of abnormal reaction of the patient, or of later complication, without mention of misadventure at the time of the procedure; S81.011A Laceration without foreign body, right knee, initial encounter; X58.XXXA Exposure to other specified factors, initial encounter; L97.812 Non-pressure chronic ulcer of other part of right lower leg with fat layer exposed; I50.22 Chronic systolic (congestive) heart failure; R60.0 Localized edema
CPT/HCPCS: 11042; 11045

== ENCOUNTER 2021-06-10 13:43 | Inpatient (IN) | payer MEDICARE, OTHER, SELFPAY ==
[2021-06-10] VITALS (17 sets, daily range): BP systolic 67–106; BP diastolic 39–72; PULSE 86–112; RESP 18–27; TEMP 36.2–37.1; O2SAT 94–100; BMI 38.9; BMI 39.2
--- NOTE | 2021-06-10 13:57 | EKG12_ITS ---
Test Reason : Blood Pressure : / mmHG Vent. Rate : 091 BPM Atrial Rate : 091 BPM P-R Int : 000 ms QRS Dur : 150 ms QT Int : 422 ms P-R-T Axes : 015 182 028 degrees QTc Int : 519 ms Ventricular-paced rhythm Biventricular pacemaker detected Abnormal ECG Confirmed by TERRANCE ELLSWORTH, PRIMITIVO ([id number]), assistant film editor FRANTZ LYNN ([id number]) on 06/13/2021 10:05:08 AM Referred By: DALILA/ELIU Confirmed By:PRIMITIVO CARLOS MD
[2021-06-10 14:06] LABS: Bedside Glucose > 500 mg/dL (70-110)
[2021-06-10 14:12] LABS: Absolute Lymphocyte Count 0.34 X10^3/uL (0.83-4.51); Absolute Neutrophil Count 7.2 X10^3/uL (2.0-7.7); Basophil# 0.02 X10^3/uL; Basophil% 0.3 % (0-1); Eosinophil# 0.01 X10^3/uL; Eosinophils% 0.1 % (0-5); Hematocrit 34.5 % (40-54); Hemoglobin 11.3 g/dL (13.0-16.5); Lymphocyte # 0.34 X10^3/ul (0.83-4.51); Lymphocyte % 4.3 % (19-41); Mean Corp Hgb Conc 32.8 g/dL (32-36); Mean Corpuscular Hgb 32.8 pg (27.0-32.0); Mean Platelet Vol. 9.9 fl (6.2-12.0); Monocyte# 0.42 X10^3/uL; Monocyte% 5.3 % (0-10); NRBC Flagged by Analyzer 0 % (0-5); Neutrophil # 7.18 X10^3/uL (2.7-7.7); Neutrophil % 89.6 % (47-70); POSITIVE DIFFERENTIAL YES; Platelet Count 162 K/mm3 (150-450); RBC Distribution Width CV 14.8 % (11.6-14.6); RBC Distribution Width SD 53.2 fl (35.1-43.9); Red Blood Count 3.45 M/mm3 (4.6-6.2)
[2021-06-10 14:14] LABS: Differential Indicated SCAN CRITERIA MET
[2021-06-10 14:15] LABS: Blood Gas Specimen Type VEN; VBG BASE EXCESS -3 mmol/L (-1.0-3.5); VBG Bicarbonate 23 mmol/L (22-26); VBG PO2 62 mmHg (25-40); VBG SO2 89 % (50-70); VBG TCO2 25 mmol/L (23-33); VBG pCO2 45.1 mmHg (41-51); VBG pH 7.32 (7.32-7.42)
--- NOTE | 2021-06-10 14:20 | RAD_ITS ---
STUDY: X-RAY CHEST REASON FOR EXAM: Male, 75 years old. ALTERED LOC TECHNIQUE: Single AP portable view of the chest. COMPARISON: Comparison is made with prior study 04/03/2021. FINDINGS: EKG electrodes are seen. Stable blunting of the left costophrenic angle. Mild residual increased markings at the right lung base suggestive of atelectasis. 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 A left-sided dual-chamber pacemaker is seen. Normal mediastinum and sandra. Normal visualized pulmonary arteries. Normal visualized aortic arch and descending thoracic aorta. Normal visualized thoracic spine. Normal visualized ribs, clavicles, and shoulders. There is no demonstrated abnormality of the visualized soft tissue structures of the upper abdomen. RAD/Chest 1 View (Portable) IMPRESSION: Stable blunting of the left costophrenic angle. Mild stable increased markings at the right lung base suggestive of atelectasis. Electronically Signed: Ramon Lemus MD at 14:35 EST , Service support ,
[2021-06-10 14:29] LABS: ALB/GLOB Ratio 0.9 RATIO (0.9-2.4); AST(SGOT) 34 U/L (15-37); Alanine Aminotransfer ALT/SGPT 20 U/L (16-61); Albumin, Serum 3.1 g/dL (3.2-5.0); Alkaline Phosphatase 83 U/L (45-117); Anion Gap 23 (5-15); BUN 39 mg/dL (7-18); BUN/Creat Ratio 19.2 RATIO (10-20); Chloride 87 mmol/L (98-107); Creatinine, Serum 2.03 mg/dL (0.70-1.30); EST Glomerular Filtration Rate 34 mL/min (>60); Est Glom Filt Rate - Afr Amer 41 mL/min (>60); Estimated Creatinine Clearance 35.58 ml/min; Globulin 3.6 g/dL (2.2-4.2); Glucose 601 mg/dL (74-106); Potassium 5.4 mmol/L (3.5-5.1); Protein, Total 6.7 g/dL (6.4-8.2); Sodium Level 132 mmol/L (136-145)
--- NOTE | 2021-06-10 14:30 | ED.RN ---
CALL FROM LAB, GLUCOSE = [phone] , DR. CONNER MADE AWARE.
[2021-06-10] MEDS: 0.9% Normal Saline 1,000 ML 1000 ML IV (14:44)
[2021-06-10 15:01] LABS: Lactic Acid 4.4 mmol/L (0.4-1.9)
[2021-06-10] MEDS: 0.9% Normal Saline 1,000 ML 999 ML IV ×2 (15:04→18:12)
[2021-06-10 15:26] LABS: Troponin-I HS 182 pg/mL (3.0-78.0)
[2021-06-10] MEDS: Ondansetron 4 MG/2 ML Vial IV (15:35)
[2021-06-10] MEDS: Aspirin 81 MG TAB.CHEW 324 MG PO (16:09)
--- NOTE | 2021-06-10 16:35 | EX.ED.DYSGE1 ---
HPI History of Present Illness Chief Complaint: Shortness of Breath Informant: patient Onset/Context/Timing Onset: Today Context: Gradual Onset Timing: Continuous Quality: Tired, fatigued Location: Generalized Worsened by: Nothing Relieved by: Nothing Narrative Narrative: Patient presents with elevated blood sugar that was noticed today. Patient states he has been feeling tired and fatigued recently. Patient states his insulin was changed approximately 1 month ago. Patient states his fatigue has been getting progressively worse since that time. Patient states nothing makes it better nothing makes it worse. Patient does admit to some urinary frequency and polyuria. Patient also admits to some rhinorrhea. Patient denies any shortness of breath or cough. [facility] Medical History Amputation of right foot Amputee of extremity Anemia Below-knee amputation of left lower extremity Biventricular implantable cardioverter-defibrillator (ICD) in situ Cardiology follow-up encounter Cataract Cellulitis of right lower extremity Cellulitis of right lower limb Chronic obstructive pulmonary disease Chronic pain Chronic systolic congestive heart failure COPD (chronic obstructive pulmonary disease) Coronary artery disease Coronary artery disease Coronary artery disease involving [place] coronary artery of [place] heart Debility Depression Diabetes Diabetes Diabetes mellitus Diabetes mellitus type 2 with atherosclerosis of arteries of extremities Diaphragm paralysis Difficulty balancing Difficulty chewing Difficulty swallowing Fatigue Former smoker Former smoker Gastric reflux Gastroesophageal reflux disease Glaucoma Glaucoma High cholesterol High cholesterol History of below-knee amputation of left lower extremity History of edema History of irregular heartbeat History of MDR Pseudomonas aeruginosa infection History of pacemaker History of steroid therapy History of stress test Hyperlipidemia Hypertension Hypothyroidism Insulin dependent diabetes mellitus Ischemic cardiomyopathy Ischemic cardiomyopathy with implantable cardioverter-defibrillator (ICD) Macrocytic anemia Malnutrition Metabolic alkalosis Nausea & vomiting Non-healing amputation site Non-pressure chronic ulcer of other part of right foot with fat layer exposed Non-pressure chronic ulcer of other part of right foot with muscle involvement without evidence of necrosis Non-pressure chronic ulcer of right calf limited to breakdown of skin Non-pressure chronic ulcer of unspecified part of left lower leg with necrosis of muscle 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 On home oxygen therapy 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 Other acute postprocedural pain Other specified peripheral vascular diseases Peripheral arterial occlusive disease Peripheral vascular disease due to secondary diabetes Personal history of Methicillin resistant Staphylococcus aureus infection Personal history of Methicillin resistant Staphylococcus aureus infection Pseudomonas aeruginosa infection Pulmonary HTN SOB (shortness of breath) Status post below knee amputation of right lower 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 Tachycardia Type 2 diabetes mellitus with diabetic polyneuropathy Ulcer of left lower extremity with fat layer exposed Ulcer of right foot with fat layer exposed Ulcer of right foot with muscle involvement without evidence of necrosis Ulcer of right foot with necrosis of bone Ulcer of right foot with necrosis of muscle Ulcer of right lower extremity with fat layer exposed Ulcer of right lower extremity with fat layer exposed Uses wheelchair Wears glasses Wears hearing aid Wears hearing aid in both ears Home Medications aspirin 81 mg tablet,delayed release 81 mg PO DAILY 12/17/19 [History Last Taken 08/13/20] clopidogrel 75 mg PO DAILY 08/06/20 [History Last Taken 08/13/20] pravastatin 40 mg PO QHS 08/06/20 [History Last Taken 08/13/20] ammonium lactate 227 g TP DAILY 01/12/21 [History Last Taken Unknown] levothyroxine 200 mcg PO DAILY #0 tab 01/28/21 [Rx Last Taken 08/13/20] tizanidine 4 mg PO QHS 30 Days #60 tab 02/07/21 [Rx Last Taken Unknown] carvedilol 3.125 mg tablet 3.125 mg PO BID #60 tab 03/17/21 [Rx Last Taken Unknown] doxycycline monohydrate 100 mg capsule 100 mg PO BID 21 Days #42 cap 05/11/21 [Rx Last Taken Unknown] acetaminophen 500 mg tablet 1,000 mg PO Q8 PRN tab 06/01/21 [History Last Taken Unknown] citalopram 20 mg tablet 20 mg PO DAILY tab 06/01/21 [History Last Taken Unknown] insulin glargine 100 unit/mL (3 mL) subcutaneous pen 10 unit SUBCUT QHS ml 06/01/21 [History Last Taken Unknown] insulin lispro 100 unit/mL subcutaneous pen 5 unit SUBCUT TIDAC PRN ml 06/01/21 [History Last Taken Unknown] lidocaine 5 % topical patch 1 patch TRANSDERMAL DAILY ea 06/01/21 [History Last Taken Unknown] metolazone 5 mg tablet 5 mg PO .3 Days week tab 06/01/21 [History Last Taken Unknown] omeprazole 40 mg capsule,delayed release 40 mg PO DAILY cap 06/01/21 [History Last Taken Unknown] ondansetron HCl 4 mg tablet 4 mg PO Q8H PRN tab 06/01/21 [History Last Taken Unknown] oxycodone-acetaminophen 5 mg-325 mg tablet 1 tab PO DAILY PRN tab 06/01/21 [History Last Taken Unknown] sacubitril 24 mg-valsartan 26 mg tablet 1 tab PO BID #60 tab 06/01/21 [Rx Last Taken Unknown] furosemide 40 mg tablet 40 mg PO .COMPLEX #180 tab 06/06/21 [Rx Last Taken Unknown] Allergy/AdvReac Type Severity Reaction Status Date / Time amiodarone Allergy Severe pulmonary Verified 06/10/21 13:50 fibrosis sotalol Allergy Severe intolerant Verified 06/10/21 13:50 cefdinir Allergy PT UNSURE Verified 06/10/21 13:50 OF REACTION cephalexin Allergy PT UNSURE Verified 06/10/21 13:50 OF REACTION chlorthalidone Allergy PT UNSURE Verified 06/10/21 13:50 OF REACTION dofetilide [From Tikosyn] Allergy PT UNSURE Verified 06/10/21 13:50 OF REACTION Latex, Natural Rubber Allergy Itching Verified 06/10/21 13:50 levofloxacin [From Levaquin] Allergy Pain in Verified 06/10/21 13:50 joints linezolid Allergy PT UNSURE Verified 06/10/21 13:50 OF REACTION metronidazole Allergy PT UNSURE Verified 06/10/21 13:50 OF REACTION sulfamethoxazole Allergy PT UNSURE Verified 06/10/21 13:50 [From Bactrim] OF REACTION tizanidine Allergy PT UNSURE Verified 06/10/21 13:50 OF REACTION trimethoprim [From Bactrim] Allergy PT UNSURE Verified 06/10/21 13:50 OF REACTION gabapentin AdvReac Diarrhea Verified 06/10/21 13:50 latex AdvReac Rash Verified 06/10/21 13:50 Family History Sister Diabetes Mother Heart disease Valve replacement Father Diabetes Other History of MDR Pseudomonas aeruginosa infection Surgical History History of amputation of toe History of bilateral cataract extraction History of cardiac catheterization History of cholecystectomy History of coronary artery bypass graft (~2003) History of coronary artery stent placement (~03/2019) History of endoscopy History of implantable cardiac defibrillator (ICD) History of left below knee amputation (~2014) Hx of amputation Hx of cholecystectomy Hx of heart artery stent Presence of permanent cardiac pacemaker (~08/2020) Status post below-knee amputation of left lower extremity Social History (Updated 06/10/21 @ 20:23 by Ivette Aguirre) household members: spouse housing: house Smoking Status: Former smoker quit date: 07/02/98 pack-years: 34 alcohol intake: current alcohol intake frequency: holidays/special occasions only substance use type: does not use caffeine: Yes Type: coffee Number of servings: 2 ROS ROS ED Constitutional Constitutional ED: Denies chills or fever(s) Eyes Eyes: Denies blurry vision or change in vision ENT ENT ED: Reports rhinorrhea; Denies sore throat Cardiovascular Cardiovascular: Denies chest pain or palpitations Respiratory/Chest Respiratory/Chest: Denies cough or dyspnea Gastrointestinal Gastrointestinal: Denies nausea or vomiting Genitourinary Genitourinary ED: Reports urinary frequency; Denies dysuria or hematuria Musculoskeletal Musculoskeletal: Denies back pain or neck pain Integumentary Denies abscess or rash Neurologic Neurologic: Denies headache(s) or weakness Endocrine Endocrinology: Reports polyuria Allergic/Immunologic Allergic/Immunologic ED: Denies mouth swelling or urticaria EXAM Physical Exam Const Vital Signs: 06/10/21 13:44 06/10/21 13:50 06/10/21 13:55 Temperature 98.7 F 98.7 F Temperature Source Temporal Temporal Pulse Rate 94 86 Respiratory Rate 27 H 24 H Respiratory Effort Short of Breath Respiratory Depth Normal Respiratory Pattern Normal Blood Pressure 91/39 L 67/52 L Blood Pressure Mean 56 57 Pulse Ox 96 96 Oxygen Delivery Method Nasal Cannula Nasal Cannula Nasal Cannula Oxygen Flow Rate (L/min) 2 3 2 06/10/21 14:44 06/10/21 14:50 06/10/21 15:30 Temperature 98.7 F Temperature Source Temporal Pulse Rate 86 86 97 Respiratory Rate 26 H 20 H Respiratory Effort Respiratory Depth Respiratory Pattern Blood Pressure 84/43 L 83/61 L 95/72 Blood Pressure Mean 56 68 79 Pulse Ox 96 99 98 Oxygen Delivery Method Nasal Cannula Nasal Cannula Oxygen Flow Rate (L/min) 3 3 06/10/21 15:50 06/10/21 16:08 Temperature 98.0 F Temperature Source Temporal Pulse Rate 87 89 Respiratory Rate 24 H 23 H Respiratory Effort Respiratory Depth Respiratory Pattern Blood Pressure 97/53 L 97/53 L Blood Pressure Mean 67 67 Pulse Ox 100 100 Oxygen Delivery Method Nasal Cannula Nasal Cannula Oxygen Flow Rate (L/min) 3 3 Positive well nourished, well developed and unkempt General Appearance ED: unkempt and well developed HEENT Reports dry mucous membranes Mouth ED: Yes dry mucous membranes Mouth: dry mucous membranes Neck supple and no JVD Resp normal respiratory effort and clear to auscultation bilaterally Cardio regular rate and regular rhythm GI normal to inspection, nondistended, normoactive bowel sounds and non-tender Palpation: soft Extremity normal to inspection General Extremety ED: Negative for edema or tenderness General Extremity: Negative for edema Neuro oriented x3, CN's II-XII intact bilaterally and no sensory deficits noted Sensorium / Orientation: alert Motor Exam: strength 5/5 throughout Psych mental status grossly normal Appearance: unkempt Skin no rashes or lesions noted MDM MDM MDM Narrative Medical decision making narrative: Patient was given IV fluids. BGT was 543. CBC was essentially within normal limits. Comprehensive metabolic profile showed a glucose of 601. Sodium was 132. Chloride was 87. Potassium was 5.4. BUN was 39 and creatinine was 2.03. Lactate was 4.4. Anion gap was elevated at 23. High-sensitivity troponin was elevated at 182. Serum acetone was small. Venous blood gas shows a pH of 7.32, PCO2 of 45.1, PO2 61.7, bicarb of 23, and base excess of -2.8. Portable 1 view chest x-ray was obtained. On my interpretation, lung catherine show bibasilar atelectasis and a slight chronic left pleural effusion. There is normal cardiac silhouette. Bony thorax is normal. There is no acute process noted. Radiologist also interpreted the x-ray and agrees. Patient was given aspirin. Patient was started on insulin drip. Case was discussed with the hospitalist. He will admit the patient to ICU. Patient understands and is agreeable with the plan. All questions were answered. Lab Data Attestation: I reviewed the patient's lab results. Labs: Laboratory Results - last 24 hr 06/10/21 06/10/21 06/10/21 13:59 14:00 14:00 WBC 8.0 RBC 3.45 L Hgb 11.3 L Hct 34.5 L MCV 100.0 H MCH 32.8 H MCHC 32.8 RDW Std Deviation 53.2 H RDW Coeff of Jac 14.8 H Plt Count 162 MPV 9.9 Immature Gran % (Auto) 0.400 Neut % (Auto) 89.6 H Lymph % (Auto) 4.3 L [place] % (Auto) 5.3 Eos % (Auto) 0.1 Baso % (Auto) 0.3 Absolute Neuts (auto) 7.2 Absolute Lymphs (auto) 0.34 L Nucleated RBC % 0 Sodium 132 L Potassium 5.4 H Chloride 87 L Carbon Dioxide 22.0 Anion Gap 23 H BUN 39 H Creatinine 2.03 H Estim Creat Clear Calc 35.58 Est GFR (MDRD) Af Amer 41 L Est GFR (MDRD) Non-Af 34 L BUN/Creatinine Ratio 19.2 Glucose 601 H* Hemoglobin A1c Lactic Acid Calcium 8.0 L Total Bilirubin 2.30 H AST 34 ALT 20 Alkaline Phosphatase 83 Troponin I High Sens Total Protein 6.7 Albumin 3.1 L Globulin 3.6 Albumin/Globulin Ratio 0.9 Acetone Level POC Glucose > 500 H* 06/10/21 06/10/21 06/10/21 14:00 14:00 14:00 WBC RBC Hgb Hct MCV MCH MCHC RDW Std Deviation RDW Coeff of Jac Plt Count MPV Immature Gran % (Auto) Neut % (Auto) Lymph % (Auto) [place] % (Auto) Eos % (Auto) Baso % (Auto) Absolute Neuts (auto) Absolute Lymphs (auto) Nucleated RBC % Sodium Potassium Chloride Carbon Dioxide Anion Gap BUN Creatinine Estim Creat Clear Calc Est GFR (MDRD) Af Amer Est GFR (MDRD) Non-Af BUN/Creatinine Ratio Glucose Hemoglobin A1c Lactic Acid 4.4 H* Calcium Total Bilirubin AST ALT Alkaline Phosphatase Troponin I High Sens 182 H* Total Protein Albumin Globulin Albumin/Globulin Ratio Acetone Level SMALL H POC Glucose 06/10/21 06/10/21 14:00 16:38 WBC RBC Hgb Hct MCV MCH MCHC RDW Std Deviation RDW Coeff of Jac Plt Count MPV Immature Gran % (Auto) Neut % (Auto) Lymph % (Auto) [place] % (Auto) Eos % (Auto) Baso % (Auto) Absolute Neuts (auto) Absolute Lymphs (auto) Nucleated RBC % Sodium Potassium Chloride Carbon Dioxide Anion Gap BUN Creatinine Estim Creat Clear Calc Est GFR (MDRD) Af Amer Est GFR (MDRD) Non-Af BUN/Creatinine Ratio Glucose Hemoglobin A1c 6.5 H Lactic Acid Calcium Total Bilirubin AST ALT Alkaline Phosphatase Troponin I High Sens Total Protein Albumin Globulin Albumin/Globulin Ratio Acetone Level POC Glucose > 500 H* ABG Data ABG results: ABG 06/10/21 14:07 Specimen Type LAURA VBG pH 7.32 VBG pO2 62 H VBG HCO3 23 VBG Total CO2 25 VBG O2 Sat (Calc) 89 H VBG Base Excess -3 L POC Mix VBG pCO2 Pt Tmp 45.1 Radiography Chest X-Ray - ED: 1 View, Read by ED Physician, Read by Radiologist and No Acute Disease Diagnostic Testing: Clinical Impression(s) from Imaging Studies Chest X-Ray 06/10/21 14:20 IMPRESSION: Stable blunting of the left costophrenic angle. Mild stable increased markings at the right lung base suggestive of atelectasis. Electronically Signed: Ramon Lemus MD at 14:35 EST , Service support , EKG Initial EKG: Attestation: I personally reviewed and interpreted this EKG as follows: Interpretation: Paced (91) and LBBB Treatment and Re-Evaluation Vital Sign Attestation:: Vital signs are reviewed prior to admission. Blood pressure is improved. The remaining vital signs are stable. Critical Care Time Critical Care Time: Yes Critical care time (excluding procedures): 30-74 minutes (32), Including time spent:, Discussing w/Patient &/or Family/Curber, Discussing w/Consultants, Arranging Admission or Transfer and Performing Direct Patient Care at Bedside Discharge Plan Dx/Rx/DC Orders Clinical Impression: Diabetic ketoacidosis, Acute kidney injury, Elevated troponin, Lactic acidosis Disposition Disposition: Acute Care Hospital [facility] Discharge Date/Time: 06/10/21 19:07
[2021-06-10 16:45] LABS: Bedside Glucose > 500 mg/dL (70-110)
--- NOTE | 2021-06-10 17:07 | PCM.HP.STD ---
HPI - General General Chief Complaint: weakness HPI Narrative KURT JEONG, is a 75 M who presents with weakness. Patient has not felt well over the past couple days. Last night he apparently did not take his insulin and presents to the emergency room in diabetic ketoacidosis with a blood sugar over 600. Patient states that he is checking his blood sugar at home and his states that he does not twice a day and his blood sugars typically around 300 range. He has had difficulty controlling his blood sugars managed through his primary care physician. Patient states that he does not see an cathode ray tube salvage processor. In the emergency room, patient received IV fluids as well as started on insulin drip. Patient did have an elevated troponin and did receive aspirin in the emergency room. [facility] Medical History Amputation of right foot Amputee of extremity Anemia Below-knee amputation of left lower extremity Biventricular implantable cardioverter-defibrillator (ICD) in situ Cardiology follow-up encounter Cataract Cellulitis of right lower extremity Cellulitis of right lower limb Chronic obstructive pulmonary disease Chronic pain Chronic systolic congestive heart failure COPD (chronic obstructive pulmonary disease) Coronary artery disease Coronary artery disease Coronary artery disease involving seminole coronary artery of seminole heart Debility Depression Diabetes Diabetes Diabetes mellitus Diabetes mellitus type 2 with atherosclerosis of arteries of extremities Diaphragm paralysis Difficulty balancing Difficulty chewing Difficulty swallowing Fatigue Former smoker Former smoker Gastric reflux Gastroesophageal reflux disease Glaucoma Glaucoma High cholesterol High cholesterol History of below-knee amputation of left lower extremity History of edema History of irregular heartbeat History of MDR Pseudomonas aeruginosa infection History of pacemaker History of steroid therapy History of stress test Hyperlipidemia Hypertension Hypothyroidism Insulin dependent diabetes mellitus Ischemic cardiomyopathy Ischemic cardiomyopathy with implantable cardioverter-defibrillator (ICD) Macrocytic anemia Malnutrition Metabolic alkalosis Nausea & vomiting Non-healing amputation site Non-pressure chronic ulcer of other part of right foot with fat layer exposed Non-pressure chronic ulcer of other part of right foot with muscle involvement without evidence of necrosis Non-pressure chronic ulcer of right calf limited to breakdown of skin Non-pressure chronic ulcer of unspecified part of left lower leg with necrosis of muscle 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 On home oxygen therapy 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 Other acute postprocedural pain Other specified peripheral vascular diseases Peripheral arterial occlusive disease Peripheral vascular disease due to secondary diabetes Personal history of Methicillin resistant Staphylococcus aureus infection Personal history of Methicillin resistant Staphylococcus aureus infection Pseudomonas aeruginosa infection Pulmonary HTN SOB (shortness of breath) Status post below knee amputation of right lower 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 Tachycardia Type 2 diabetes mellitus with diabetic polyneuropathy Ulcer of left lower extremity with fat layer exposed Ulcer of right foot with fat layer exposed Ulcer of right foot with muscle involvement without evidence of necrosis Ulcer of right foot with necrosis of bone Ulcer of right foot with necrosis of muscle Ulcer of right lower extremity with fat layer exposed Ulcer of right lower extremity with fat layer exposed Uses wheelchair Wears glasses Wears hearing aid Wears hearing aid in both ears Home Medications aspirin 81 mg tablet,delayed release 81 mg PO DAILY 12/17/19 [History Last Taken 08/13/20] clopidogrel 75 mg PO DAILY 08/06/20 [History Last Taken 08/13/20] pravastatin 40 mg PO QHS 08/06/20 [History Last Taken 08/13/20] ammonium lactate 227 g TP DAILY 01/12/21 [History Last Taken Unknown] levothyroxine 200 mcg PO DAILY #0 tab 01/28/21 [Rx Last Taken 08/13/20] tizanidine 4 mg PO QHS 30 Days #60 tab 02/07/21 [Rx Last Taken Unknown] carvedilol 3.125 mg tablet 3.125 mg PO BID #60 tab 03/17/21 [Rx Last Taken Unknown] doxycycline monohydrate 100 mg capsule 100 mg PO BID 21 Days #42 cap 05/11/21 [Rx Last Taken Unknown] acetaminophen 500 mg tablet 1,000 mg PO Q8 PRN tab 06/01/21 [History Last Taken Unknown] citalopram 20 mg tablet 20 mg PO DAILY tab 06/01/21 [History Last Taken Unknown] insulin glargine 100 unit/mL (3 mL) subcutaneous pen 10 unit SUBCUT QHS ml 06/01/21 [History Last Taken Unknown] insulin lispro 100 unit/mL subcutaneous pen 5 unit SUBCUT TIDAC PRN ml 06/01/21 [History Last Taken Unknown] lidocaine 5 % topical patch 1 patch TRANSDERMAL DAILY ea 06/01/21 [History Last Taken Unknown] metolazone 5 mg tablet 5 mg PO .3 Days week tab 06/01/21 [History Last Taken Unknown] omeprazole 40 mg capsule,delayed release 40 mg PO DAILY cap 06/01/21 [History Last Taken Unknown] ondansetron HCl 4 mg tablet 4 mg PO Q8H PRN tab 06/01/21 [History Last Taken Unknown] oxycodone-acetaminophen 5 mg-325 mg tablet 1 tab PO DAILY PRN tab 06/01/21 [History Last Taken Unknown] sacubitril 24 mg-valsartan 26 mg tablet 1 tab PO BID #60 tab 06/01/21 [Rx Last Taken Unknown] furosemide 40 mg tablet 40 mg PO .COMPLEX #180 tab 06/06/21 [Rx Last Taken Unknown] Allergy/AdvReac Type Severity Reaction Status Date / Time amiodarone Allergy Severe pulmonary Verified 06/10/21 13:50 fibrosis sotalol Allergy Severe intolerant Verified 06/10/21 13:50 cefdinir Allergy PT UNSURE Verified 06/10/21 13:50 OF REACTION cephalexin Allergy PT UNSURE Verified 06/10/21 13:50 OF REACTION chlorthalidone Allergy PT UNSURE Verified 06/10/21 13:50 OF REACTION dofetilide [From Tikosyn] Allergy PT UNSURE Verified 06/10/21 13:50 OF REACTION Latex, Natural Rubber Allergy Itching Verified 06/10/21 13:50 levofloxacin [From Levaquin] Allergy Pain in Verified 06/10/21 13:50 joints linezolid Allergy PT UNSURE Verified 06/10/21 13:50 OF REACTION metronidazole Allergy PT UNSURE Verified 06/10/21 13:50 OF REACTION sulfamethoxazole Allergy PT UNSURE Verified 06/10/21 13:50 [From Bactrim] OF REACTION tizanidine Allergy PT UNSURE Verified 06/10/21 13:50 OF REACTION trimethoprim [From Bactrim] Allergy PT UNSURE Verified 06/10/21 13:50 OF REACTION gabapentin AdvReac Diarrhea Verified 06/10/21 13:50 latex AdvReac Rash Verified 06/10/21 13:50 Family History Sister Diabetes Mother Heart disease Valve replacement Father Diabetes Other History of MDR Pseudomonas aeruginosa infection Surgical History History of amputation of toe History of bilateral cataract extraction History of cardiac catheterization History of cholecystectomy History of coronary artery bypass graft (~2003) History of coronary artery stent placement (~03/2019) History of endoscopy History of implantable cardiac defibrillator (ICD) History of left below knee amputation (~2014) Hx of amputation Hx of cholecystectomy Hx of heart artery stent Presence of permanent cardiac pacemaker (~08/2020) Status post below-knee amputation of left lower extremity Social History household members: spouse Smoking Status: Former smoker quit date: 07/02/98 pack-years: 34 alcohol intake: current alcohol intake frequency: holidays/special occasions only substance use type: does not use caffeine: Yes Type: coffee Number of servings: 2 RYAN Goncalves Has chronic wound on his right lower extremity and is on antibiotics for that. Does not eat well at baseline as he does not have an appetite and his dietary intake can be variable from day-to-day. Patient has had no COVID-19 contacts and has been vaccinated for COVID-19. All review of systems were negative except as mentioned above in the history of present illness and the other review of systems. Vital Signs Vital Signs Vital Signs: 06/10/21 13:44 06/10/21 13:50 06/10/21 13:55 Temperature 37.1 C 37.1 C Temperature Source Temporal Temporal Pulse Rate 94 86 Respiratory Rate 27 H 24 H Respiratory Effort Short of Breath Respiratory Depth Normal Respiratory Pattern Normal Blood Pressure 91/39 L 67/52 L Blood Pressure Mean 56 57 Pulse Ox 96 96 Oxygen Delivery Method Nasal Cannula Nasal Cannula Nasal Cannula Oxygen Flow Rate (L/min) 2 3 2 06/10/21 14:44 06/10/21 14:50 06/10/21 15:30 Temperature 37.1 C Temperature Source Temporal Pulse Rate 86 86 97 Respiratory Rate 26 H 20 H Respiratory Effort Respiratory Depth Respiratory Pattern Blood Pressure 84/43 L 83/61 L 95/72 Blood Pressure Mean 56 68 79 Pulse Ox 96 99 98 Oxygen Delivery Method Nasal Cannula Nasal Cannula Oxygen Flow Rate (L/min) 3 3 06/10/21 15:50 06/10/21 16:08 06/10/21 17:03 Temperature 36.7 C Temperature Source Temporal Pulse Rate 87 89 89 Respiratory Rate 24 H 23 H 18 Respiratory Effort Respiratory Depth Respiratory Pattern Blood Pressure 97/53 L 97/53 L 96/44 L Blood Pressure Mean 67 67 61 Pulse Ox 100 100 100 Oxygen Delivery Method Nasal Cannula Nasal Cannula Nasal Cannula Oxygen Flow Rate (L/min) 3 3 3 Weight Weight: 78.8 kg Body Mass Index (BMI) 38.9 Physical Exam Const alert Constitutional Narrative: Appears older than stated age General Appearance: cooperative HEENT normocephalic Resp normal respiratory effort, no retractions, no use of accessory muscles and clear to auscultation bilaterally Cardio regular rate, regular rhythm, S1 normal heart sound and S2 normal heart sound GI normal to inspection, nondistended, normoactive bowel sounds, soft to palpation, non-tender and non-distended Extremity Extremity Narrative: Below the knee amputation on the right and above the knee amputation on the left with prosthesis in place. Skin Skin Narrative: Large distal wound on the right lower extremity was visualized directly. Does show granulation tissue with no surrounding erythema nor purulence. Neuro Sensorium / Orientation: awake and alert Psych affect normal Results Lab / Micro Data Attestation: I reviewed the patient's lab results. Result Diagrams: 06/10/21 14:00 06/10/21 14:00 Labs: Laboratory Results - last 24 hr 06/10/21 13:59: POC Glucose > 500 H* 06/10/21 14:00: WBC 8.0, RBC 3.45 L, Hgb 11.3 L, Hct 34.5 L, MCV 100.0 H, MCH 32.8 H, MCHC 32.8, RDW Std Deviation 53.2 H, RDW Coeff of Jac 14.8 H, Plt Count 162, MPV 9.9, Immature Gran % (Auto) 0.400, Neut % (Auto) 89.6 H, Lymph % (Auto) 4.3 L, [place] % (Auto) 5.3, Eos % (Auto) 0.1, Baso % (Auto) 0.3, Absolute Neuts (auto) 7.2, Absolute Lymphs (auto) 0.34 L, Nucleated RBC % 0 06/10/21 14:00: Sodium 132 L, Potassium 5.4 H, Chloride 87 L, Carbon Dioxide 22.0, Anion Gap 23 H, BUN 39 H, Creatinine 2.03 H, Estim Creat Clear Calc 35.58, Est GFR (MDRD) Af Amer 41 L, Est GFR (MDRD) Non-Af 34 L, BUN/Creatinine Ratio 19.2, Glucose 601 H*, Calcium 8.0 L, Total Bilirubin 2.30 H, AST 34, ALT 20, Alkaline Phosphatase 83, Total Protein 6.7, Albumin 3.1 L, Globulin 3.6, Albumin/Globulin Ratio 0.9 06/10/21 14:00: Lactic Acid 4.4 H* 06/10/21 14:00: Troponin I High Sens 182 H* 06/10/21 14:00: Acetone Level SMALL H 06/10/21 16:38: POC Glucose > 500 H* ABG Data ABG results: ABG 06/10/21 14:07 Specimen Type LAURA VBG pH 7.32 VBG pO2 62 H VBG HCO3 23 VBG Total CO2 25 VBG O2 Sat (Calc) 89 H VBG Base Excess -3 L POC Mix VBG pCO2 Pt Tmp 45.1 EKG Initial EKG: Attestation: I personally reviewed and interpreted this EKG as follows: Prior EKG tracings: available for review EKG Rhythm Intrepretation: Ventricular Paced Radiology Impression Chest X-Ray 06/10/21 14:20 IMPRESSION: Stable blunting of the left costophrenic angle. Mild stable increased markings at the right lung base suggestive of atelectasis. Electronically Signed: Ramon Lemus MD at 14:35 EST , Service support , Assessment & Plan Assessment/Plan (1) Diabetic ketoacidosis: QUALIFIERS: Diabetes mellitus type: type 1 Diabetes mellitus complication detail: without coma Qualified Code(s): E10.10 - Type 1 diabetes mellitus with ketoacidosis without coma (2) Elevated troponin: (3) Acute kidney injury: PLAN: 1. DKA Patient type I diabetic At baseline, sounds like that he is a poorly controlled and then he may not have taken his insulin last night which may have precipitated this event. Patient will be on insulin drip and will additionally have IV fluids Resume home insulin when anion gap is closed x2 Check an A1c as I expected to be elevated given what sounds like very poorly controlled diabetes. Explained to his as she asked about what can be done. She tells me that patient takes a registry of his blood sugar and that she cannot look at it but she does not. Informed her that probably best that she be involved in helping manage him. But she did not give me the impression that she would be keenly interested in doing that. 2. Acute kidney injury Hold diuretics Creatinine is 2.03 and baseline creatinine is 0.82 IV fluids but caution with the patient's history of heart failure 3. Elevated troponin May be type II event as patient's troponins have been chronically elevated in the past. Cycle troponins and if continues to trend upwards may consider consulting cardiology. Patient did have stress test back in June 2020 and that was negative. 4. Heart failure with reduced ejection fraction EF is 20% Hold diuretics as well as Entresto given the WEST 5. Right lower extremity wound On his stump has been poorly healing No clinical evidence or appearance of infection at this time Continue with doxycycline that he is taken for that 6. VTE prophylaxis: Low kimberly weight heparin 7. Advanced care planning: Discussed with patient. Patient wishes to be full CODE STATUS. Charges/Coding Visit Charges Inpatient E&M: 40856 Init Hosp L3
[2021-06-10 18:06] LABS: Bedside Glucose > 500 mg/dL (70-110)
[2021-06-10 18:08] LABS: Reflex Lactate? Y
--- NOTE | 2021-06-10 18:21 | ED.RN ---
Report given to Consuelo on ICU.
[2021-06-10 19:05] LABS: Bedside Glucose 494 mg/dL (70-110)
[2021-06-10 19:41] LABS: Troponin-I HS 674 pg/mL (3.0-78.0)
[2021-06-10 19:41] LABS: Lactic Acid 3.6 mmol/L (0.4-1.9)
[2021-06-10 20:23] LABS: Hemoglobin A1c 6.5 % (3.8-5.6)
[2021-06-10] MEDS: 0.9% Normal Saline 1,000 ML 125 ML IV (20:25)
[2021-06-10 20:35] LABS: Anion Gap 21 (5-15); BUN 40 mg/dL (7-18); BUN/Creat Ratio 18.5 RATIO (10-20); Chloride 94 mmol/L (98-107); Creatinine, Serum 2.16 mg/dL (0.70-1.30); EST Glomerular Filtration Rate 32 mL/min (>60); Est Glom Filt Rate - Afr Amer 39 mL/min (>60); Glucose 562 mg/dL (74-106); Sodium Level 135 mmol/L (136-145)
[2021-06-10] MEDS: oxyCODONE 5 MG Tablet PO (22:00)
[2021-06-10] MEDS: Carvedilol 3.125 MG TABLET PO (22:00)
[2021-06-10] MEDS: Doxycycline 100 MG CAPSULE PO (22:00)
--- NOTE | 2021-06-10 22:05 | NURSING ---
PANDEMIC DOCUMENTATION DATE: 06/10/21 TIME: 1909
[2021-06-10 22:11] LABS: Bedside Glucose 457 mg/dL (70-110)
[2021-06-10 22:11] LABS: Bedside Glucose > 500 mg/dL (70-110)
[2021-06-10 22:11] LABS: Bedside Glucose 499 mg/dL (70-110)
[2021-06-10 23:19] LABS: BUN 42 mg/dL (7-18); Creatinine, Serum 2.13 mg/dL (0.70-1.30); Glucose 435 mg/dL (74-106)
[2021-06-10 23:20] LABS: Anion Gap 14 (5-15); BUN/Creat Ratio 19.7 RATIO (10-20); Chloride 96 mmol/L (98-107); EST Glomerular Filtration Rate 32 mL/min (>60); Est Glom Filt Rate - Afr Amer 39 mL/min (>60); Estimated Creatinine Clearance 34.17 ml/min; Potassium 4.6 mmol/L (3.5-5.1); Sodium Level 135 mmol/L (136-145); Troponin-I HS 1227 pg/mL (3.0-78.0)
[2021-06-11] VITALS (36 sets, daily range): BP systolic 70–119; BP diastolic 39–71; PULSE 80–142; RESP 8–22; TEMP 36.6–37.2; O2SAT 93–100
[2021-06-11 00:21] LABS: Bedside Glucose 347 mg/dL (70-110)
[2021-06-11 00:21] LABS: Bedside Glucose 354 mg/dL (70-110)
--- NOTE | 2021-06-11 00:24 | PCM.PN.BLA ---
Progress Note Patient with heart failure with reduced ejection fraction and now with rising troponin but denies chest pain. Will start patient on heparin drip. Continue Plavix and aspirin. Consult cardiology.
--- NOTE | 2021-06-11 00:25 | EKG12_ITS ---
Test Reason : Blood Pressure : / mmHG Vent. Rate : 088 BPM Atrial Rate : 088 BPM P-R Int : 124 ms QRS Dur : 170 ms QT Int : 452 ms P-R-T Axes : 082 173 000 degrees QTc Int : 546 ms Atrial-sensed ventricular-paced rhythm with occasional Premature ventricular complexes Biventricular pacemaker detected Abnormal ECG Confirmed by DEBORAH ELLSWORTH, ANGEL ([id number]), tape editor FRANTZ LYNN ([id number]) on 06/15/2021 12:24:15 PM Referred By: CHAGO Confirmed By:ANGEL CABRERA MD
[2021-06-11 01:22] LABS: Absolute Lymphocyte Count 0.56 X10^3/uL (0.83-4.51); Absolute Neutrophil Count 7.5 X10^3/uL (2.0-7.7); Basophil# 0.02 X10^3/uL; Basophil% 0.2 % (0-1); Hematocrit 30.8 % (40-54); Hemoglobin 9.8 g/dL (13.0-16.5); Lymphocyte # 0.56 X10^3/ul (0.83-4.51); Lymphocyte % 6.3 % (19-41); Mean Corp Hgb Conc 31.8 g/dL (32-36); Mean Corpuscular Hgb 32.5 pg (27.0-32.0); Mean Platelet Vol. 9.4 fl (6.2-12.0); Monocyte# 0.72 X10^3/uL; Monocyte% 8.1 % (0-10); NRBC Flagged by Analyzer 0 % (0-5); Neutrophil # 7.49 X10^3/uL (2.7-7.7); Neutrophil % 84.8 % (47-70); POSITIVE DIFFERENTIAL YES; Platelet Count 138 K/mm3 (150-450); RBC Distribution Width CV 14.9 % (11.6-14.6); RBC Distribution Width SD 54.4 fl (35.1-43.9); Red Blood Count 3.02 M/mm3 (4.6-6.2); White Blood Count 8.8 K/mm3 (4.4-11.0)
[2021-06-11 01:24] LABS: Differential Indicated SCAN CRITERIA MET
[2021-06-11 01:28] LABS: Partial Thromboplast Time 42.3 Seconds (24.1-36.2)
[2021-06-11 01:29] LABS: Differential Comment SCANNED
[2021-06-11 01:31] LABS: Anisocytosis 1+
[2021-06-11 01:56] LABS: Macrocytosis 1+
[2021-06-11] MEDS: Norepinephrine 8 mg/250 mL 0.9% NS 9.4 MG CONT INF (02:50)
[2021-06-11] MEDS: Dext 5%-0.45% NS 1,000 ML 150 ML IV (03:00)
[2021-06-11] MEDS: Midazolam 2 MG/2 ML Syringe IV (03:42)
--- NOTE | 2021-06-11 03:45 | RAD_ITS ---
STUDY: X-RAY CHEST REASON FOR EXAM: Male, 75 years old. central line placement TECHNIQUE: Single AP portable view of the chest. COMPARISON: 06/10/2021 FINDINGS: Interval placement of right internal jugular deep venous line with tip the catheter overlying the junction of the right atrium and spur vena cava with no pneumothorax. Left subclavian triple lead AICD which is unchanged. Status post median sternotomy. Poor inspiration with some bibasilar atelectasis. Elevated right hemidiaphragm. There is moderate cardiac enlargement. Normal mediastinum and sandra. Normal visualized pulmonary arteries. Normal visualized aortic arch and descending thoracic aorta. Normal visualized thoracic spine. Normal visualized ribs, clavicles, and shoulders. There is no demonstrated abnormality of the visualized soft tissue structures of the upper abdomen. RAD/CXR for Line Placement IMPRESSION: 1. Interval placement of right internal jugular deep venous line with tip the catheter overlying the junction of the right atrium and superior vena cava with no pneumothorax. 2. Poor inspiration with some bibasilar atelectasis. Electronically Signed: Alonzo Fuentes MD at 7:16 EST Tel , Service support ,
--- NOTE | 2021-06-11 03:52 | PCM.PN.BLA ---
Progress Note Central Venous Catheter Indication: Hypotension Oral Consent was obtained from patient and his . A time-out was completed verifying correct patient, procedure, site, positioning, and special equipment if applicable. The patient was placed in a dependent position appropriate for central line placement based on the vein to be cannulated. The patient's R neck was prepped and draped in a sterile fashion. 1% lidocaine was used to anesthetize the surrounding skin area. A triple-lumen catheter was introduced into the R IJ using the Seldinger technique and under ultrasound guidance. The catheter was threaded smoothly over the guidewire and appropriate blood return was obtained. Each lumen of the catheter was evacuated of air and flushed with sterile saline. The catheter was then sutured in place to the skin and a sterile dressing applied. Chest x-ray to confirm appropriate positioning is pending. ULTRASOUND GUIDANCE STATEMENT (Vascular Access): I performed ultrasound image acquisition and interpretation for needle placement during the procedure. The vessel was identified and found to be free of thrombosis by compression technique. A safe point of entry was marked at the skin in an angle for axis was determined. The needle was guided by obtaining free-flowing fluid and by real-time visualization. Procedures Hospitalists Procedures: 24002 Insert Non-tunnel CV Cath
--- NOTE | 2021-06-11 03:56 | PN_ITS ---
Progress Note Was notified of hypotension. Reported patient had received about 4 L of IV fluids. Patient was examined at the bedside. Alert but confused. Tachycardia, S1-S2 present. Bibasilar Rales. Abdomen bowel sounds present soft nontender nondistended Amputation of bilateral legs. Impression Hypotension Etiology unclear. Get urinalysis with culture. Get KUB. Chest x-ray already ordered for line placement. Check blood cultures. Home medication that could lower blood pressure has not been started. Consult tar distributor operator. Elevated troponin Heparin drip ordered. Cardiology consulted. Twelve-lead EKG ordered. DKA Continue DKA protocol. Heart failure with reduced ejection fraction. Review of records show that echocardiogram on 07/13/2020 showed ejection fraction of 20%. Judicious use of IVF
[2021-06-11 03:58] LABS: Anion Gap 10 (5-15); BUN 45 mg/dL (7-18); BUN/Creat Ratio 21.4 RATIO (10-20); Calcium,Total 6.8 mg/dL (8.5-10.1); Chloride 98 mmol/L (98-107); EST Glomerular Filtration Rate 33 mL/min (>60); Est Glom Filt Rate - Afr Amer 40 mL/min (>60); Estimated Creatinine Clearance 34.66 ml/min; Glucose 286 mg/dL (74-106); Potassium 3.6 mmol/L (3.5-5.1); Sodium Level 137 mmol/L (136-145)
[2021-06-11 04:16] LABS: Bedside Glucose 346 mg/dL (70-110)
[2021-06-11 04:16] LABS: Bedside Glucose 292 mg/dL (70-110)
[2021-06-11 04:16] LABS: Bedside Glucose 244 mg/dL (70-110)
[2021-06-11 04:16] LABS: Bedside Glucose 230 mg/dL (70-110)
[2021-06-11] MEDS: Heparin Injection (Vial) 5,000 UNIT/ML VIAL 4000 UNIT IV (04:28)
--- NOTE | 2021-06-11 04:30 | RAD_ITS ---
EXAM: XR ABDOMEN, 1 VIEW : 1945 CLINICAL INDICATION: Hypotension TECHNIQUE: Frontal supine view of the abdomen/pelvis. This report was created using [employer] report generation technology. COMPARISON: None. FINDINGS: LOWER THORAX: No acute pathology. GASTROINTESTINAL TRACT: Unremarkable. Non-obstructive. No bowel or stomach distention. ORGANS: Unremarkable as visualized. No organomegaly. No abnormal calcifications. BONES/JOINTS: No acute pathology. SOFT TISSUES: No acute pathology. RAD/Abdomen Single View (Portable) IMPRESSION: Non-obstructive bowel gas pattern. at 0539 Reported and signed by: Felipe Loco MD Electronically Signed: Felipe Loco MD at 5:38 EST Tel , Service support ,
[2021-06-11] MEDS: 0.9% Saline Lock 10 ML Syringe IV (04:48)
[2021-06-11 05:31] LABS: Mucous, Urine 0 SEEN /hpf (<or=2+); Squamous Epithelial Cells - UA 0 SEEN /hpf (0-5)
[2021-06-11 05:32] LABS: Color, Urine Yellow (Yellow); Glucose, Dipstick 100 mg/dl (Normal); Ketone-Dipstick 15 mg/dl (Negative); Leukocyte Esterase-Dipstick 500 /ul (Negative); Nitrite-Dipstick Positive (Negative); Occult Blood-Urine 250 /ul (Negative); Protein-Dipstick 100 mg/dl (Negative); Urine Clarity Cloudy (Clear); Urine Urobilinogen 4 mg/dl (Normal)
[2021-06-11 05:41] LABS: Red Blood Cells-Urine > 100 SEEN /hpf (0-5); Urine Bilirubin Dipstick 1 mg/dL (Negative); White Blood Cells >100 SEEN /hpf (0-5)
[2021-06-11 05:42] LABS: Bacteria 2+ /hpf (None Seen)
[2021-06-11 05:43] LABS: Transitional Epithelial - Ur 0-5 SEEN /hpf (0-5)
[2021-06-11 06:05] LABS: Bedside Glucose 168 mg/dL (70-110)
[2021-06-11] MEDS: Levothyroxine 100 MCG Tablet 200 MCG PO (06:35)
[2021-06-11 08:15] LABS: Bedside Glucose 113 mg/dL (70-110)
--- NOTE | 2021-06-11 08:33 | CON.PCM.CC_ITS ---
Assessment & Plan Assessment/Plan (1) Diabetic ketoacidosis: QUALIFIERS: Diabetes mellitus type: type 1 Diabetes mellitus complication detail: without coma Qualified Code(s): E10.10 - Type 1 diabetes mellitus with ketoacidosis without coma (2) Septic shock: (3) Chronic obstructive pulmonary disease: (4) Obstructive sleep apnea: (5) Peripheral arterial occlusive disease: (6) ALL treated with BiPAP: (7) Diabetes mellitus type 2 with atherosclerosis of arteries of extremities: PLAN: RECOMMENDATIONS: 1. Transition to subcu insulin 2. Transition to broad-spectrum antibiotics 3. Wean pressors as tolerated. Maintain MAP greater than 65 4. Wound care to evaluate 5. Continue heparin drip. Await cardiology recommendations IMPRESSIONS: 1. Septic shock secondary to UTI versus wound infection Patient's UA is suggestive of a possible UTI. Patient also has an open wound on the right lower extremity. Patient has grown MRSA and Pseudomonas in the past, so broad-spectrum antibiotics are likely necessary. We will discontinue doxycycline and transition to vancomycin and meropenem. Continue to wean pressors as tolerated. Evidence of endorgan damage with elevated lactate and acute kidney injury. 2. Acute DKA secondary to problem #1 Patient responded well to an insulin drip. Patient will be placed on subcutaneous insulin with sliding scale. Patient may need titration of basal insulin given endogenous steroid release secondary to problem #1. Hemoglobin A1c is suggestive of elevated blood sugars, but not 600. 3. Non-ST elevation NV secondary to problems 1 and 2 in the setting of peripheral vascular disease/systolic CHF Patient was placed on a heparin drip overnight. Cardiology has been consulted. Patient does have a history of congestive heart failure with an EF of 20%. Diuretics have been held secondary to problem #4. Await recommendations. Hold Coreg given need for pressor therapy 4. Acute kidney injury secondary to problem #1 Likely prerenal etiology given problems 1 and 2. Patient may also have a urinary tract infection with ATN. No indication for renal replacement therapy at this time. We will continue to follow. Patient has received significant volume resuscitation. 5. Stage II decubitus ulcer/bilateral BKA/history of MDRO/COPD/ALL with noncompliance Complicates care, management, recovery and prognosis. Patient does not appear to be in acute exacerbation of COPD at this time. We will continue to monitor closely. Would not recommend steroids as this can exacerbate problem #1. Patient may require increased oxygen at night as he is noncompliant with ALL therapy. TIME: 37 critical care time spent addressing patient's septic shock, acute DKA, NSTEMI, acute kidney injury, review of all data and collaboration with care team. HPI Consult Data Date of Consult: 06/11/21 HPI Narrative HPI Narrative: KURT JEONG is a 75 M, with past medical history listed below, who presents to [facility] on 06/10/2021 secondary to progressive shortness of breath and elevated blood sugar. Patient reportedly has been feeling tired and fatigued over the last 1 to 2 months. Patient has insulin-dependent diabetes mellitus and insulin was changed approximately a month ago. Patient states he has had some rhinorrhea and urinary frequency. In the ER, patient was afebrile, but hypotensive and requiring 3 L nasal cannula to maintain saturations. Laboratory data was significant for white blood cell count of 8, hemoglobin of 11.3 and platelet count of 162. Potassium was elevated at 5.4 and creatinine was 2.03. Glucose was elevated at 601 along with bilirubin of 2.3. Lactate was elevated to 4.4 and initial troponin was 182. Hemoglobin A1c was 6.5 and venous blood gas showed adequate respiratory compensation for metabolic acidosis. Chest x-ray showed mild atelectasis. An EKG showed a paced rhythm with a left bundle. Patient was given aspirin and started on insulin drip. Patient was admitted to the intensive care unit. Since being in the intensive care unit, patient has been hypotensive requiring Levophed to maintain saturations. Patient has had a central line placed. Patient overall continues to report generalized weakness with no subjective change in overall condition. Patient was frustrated with being woken up all night so was not willing to go through a review of systems. Patient described his diabetes as relatively controlled. [facility] Medical History Amputation of right foot Amputee of extremity Anemia Below-knee amputation of left lower extremity Biventricular implantable cardioverter-defibrillator (ICD) in situ Cardiology follow-up encounter Cataract Cellulitis of right lower extremity Cellulitis of right lower limb Chronic obstructive pulmonary disease Chronic pain Chronic systolic congestive heart failure COPD (chronic obstructive pulmonary disease) Coronary artery disease Coronary artery disease Coronary artery disease involving [place] coronary artery of [place] heart Debility Depression Diabetes Diabetes Diabetes mellitus Diabetes mellitus type 2 with atherosclerosis of arteries of extremities Diaphragm paralysis Difficulty balancing Difficulty chewing Difficulty swallowing Fatigue Former smoker Former smoker Gastric reflux Gastroesophageal reflux disease Glaucoma Glaucoma High cholesterol High cholesterol History of below-knee amputation of left lower extremity History of edema History of irregular heartbeat History of MDR Pseudomonas aeruginosa infection History of pacemaker History of steroid therapy History of stress test Hyperlipidemia Hypertension Hypothyroidism Insulin dependent diabetes mellitus Ischemic cardiomyopathy Ischemic cardiomyopathy with implantable cardioverter-defibrillator (ICD) Macrocytic anemia Malnutrition Metabolic alkalosis Nausea & vomiting Non-healing amputation site Non-pressure chronic ulcer of other part of right foot with fat layer exposed Non-pressure chronic ulcer of other part of right foot with muscle involvement without evidence of necrosis Non-pressure chronic ulcer of right calf limited to breakdown of skin Non-pressure chronic ulcer of unspecified part of left lower leg with necrosis of muscle 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 On home oxygen therapy 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 Other acute postprocedural pain Other specified peripheral vascular diseases Peripheral arterial occlusive disease Peripheral vascular disease due to secondary diabetes Personal history of Methicillin resistant Staphylococcus aureus infection Personal history of Methicillin resistant Staphylococcus aureus infection Pseudomonas aeruginosa infection Pulmonary HTN SOB (shortness of breath) Status post below knee amputation of right lower 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 Tachycardia Type 2 diabetes mellitus with diabetic polyneuropathy Ulcer of left lower extremity with fat layer exposed Ulcer of right foot with fat layer exposed Ulcer of right foot with muscle involvement without evidence of necrosis Ulcer of right foot with necrosis of bone Ulcer of right foot with necrosis of muscle Ulcer of right lower extremity with fat layer exposed Ulcer of right lower extremity with fat layer exposed Uses wheelchair Wears glasses Wears hearing aid Wears hearing aid in both ears Home Medications aspirin 81 mg tablet,delayed release 81 mg PO DAILY 12/17/19 [History Last Taken 08/13/20] clopidogrel 75 mg PO DAILY 08/06/20 [History Last Taken 08/13/20] pravastatin 40 mg PO QHS 08/06/20 [History Last Taken 08/13/20] ammonium lactate 227 g TP DAILY 01/12/21 [History Last Taken Unknown] levothyroxine 200 mcg PO DAILY #0 tab 01/28/21 [Rx Last Taken 08/13/20] tizanidine 4 mg PO QHS 30 Days #60 tab 02/07/21 [Rx Last Taken Unknown] carvedilol 3.125 mg tablet 3.125 mg PO BID #60 tab 03/17/21 [Rx Last Taken Unknown] doxycycline monohydrate 100 mg capsule 100 mg PO BID 21 Days #42 cap 05/11/21 [Rx Last Taken Unknown] acetaminophen 500 mg tablet 1,000 mg PO Q8 PRN tab 06/01/21 [History Last Taken Unknown] citalopram 20 mg tablet 20 mg PO DAILY tab 06/01/21 [History Last Taken Unknown] insulin glargine 100 unit/mL (3 mL) subcutaneous pen 10 unit SUBCUT QHS ml 06/01/21 [History Last Taken Unknown] insulin lispro 100 unit/mL subcutaneous pen 5 unit SUBCUT TIDAC PRN ml 06/01/21 [History Last Taken Unknown] lidocaine 5 % topical patch 1 patch TRANSDERMAL DAILY ea 06/01/21 [History Last Taken Unknown] metolazone 5 mg tablet 5 mg PO .3 Days week tab 06/01/21 [History Last Taken Unknown] omeprazole 40 mg capsule,delayed release 40 mg PO DAILY cap 06/01/21 [History Last Taken Unknown] ondansetron HCl 4 mg tablet 4 mg PO Q8H PRN tab 06/01/21 [History Last Taken Unknown] oxycodone-acetaminophen 5 mg-325 mg tablet 1 tab PO DAILY PRN tab 06/01/21 [History Last Taken Unknown] sacubitril 24 mg-valsartan 26 mg tablet 1 tab PO BID #60 tab 06/01/21 [Rx Last Taken Unknown] furosemide 40 mg tablet 40 mg PO .COMPLEX #180 tab 06/06/21 [Rx Last Taken Unknown] Allergy/AdvReac Type Severity Reaction Status Date / Time amiodarone Allergy Severe pulmonary Verified 06/10/21 13:50 fibrosis sotalol Allergy Severe intolerant Verified 06/10/21 13:50 cefdinir Allergy PT UNSURE Verified 06/10/21 13:50 OF REACTION cephalexin Allergy PT UNSURE Verified 06/10/21 13:50 OF REACTION chlorthalidone Allergy PT UNSURE Verified 06/10/21 13:50 OF REACTION dofetilide [From Tikosyn] Allergy PT UNSURE Verified 06/10/21 13:50 OF REACTION Latex, Natural Rubber Allergy Itching Verified 06/10/21 13:50 levofloxacin [From Levaquin] Allergy Pain in Verified 06/10/21 13:50 joints linezolid Allergy PT UNSURE Verified 06/10/21 13:50 OF REACTION metronidazole Allergy PT UNSURE Verified 06/10/21 13:50 OF REACTION sulfamethoxazole Allergy PT UNSURE Verified 06/10/21 13:50 [From Bactrim] OF REACTION tizanidine Allergy PT UNSURE Verified 06/10/21 13:50 OF REACTION trimethoprim [From Bactrim] Allergy PT UNSURE Verified 06/10/21 13:50 OF REACTION gabapentin AdvReac Diarrhea Verified 06/10/21 13:50 latex AdvReac Rash Verified 06/10/21 13:50 Family History Sister Diabetes Mother Heart disease Valve replacement Father Diabetes Other History of MDR Pseudomonas aeruginosa infection Surgical History History of amputation of toe History of bilateral cataract extraction History of cardiac catheterization History of cholecystectomy History of coronary artery bypass graft (~2003) History of coronary artery stent placement (~03/2019) History of endoscopy History of implantable cardiac defibrillator (ICD) History of left below knee amputation (~2014) Hx of amputation Hx of cholecystectomy Hx of heart artery stent Presence of permanent cardiac pacemaker (~08/2020) Status post below-knee amputation of left lower extremity Social History household members: spouse housing: house Smoking Status: Former smoker quit date: 07/02/98 pack-years: 34 alcohol intake: current alcohol intake frequency: holidays/special occasions only substance use type: does not use caffeine: Yes Type: coffee Number of servings: 2 ROS ROS Narrative See HPI Physical Exam Const alert and no apparent distress General Appearance: cooperative, disheveled and appears older than stated age HEENT normocephalic, head/scalp atraumatic and external ears normal Eyes PERRL and EOMs intact bilaterally Sclera: sclera abnormal Positive for bilateral Details: scleral injection Resp normal respiratory effort, no retractions, no use of accessory muscles and clear to auscultation bilaterally Cardio regular rate, regular rhythm, S1 normal heart sound, S2 normal heart sound, no murmurs, no rub and no gallops GI normal to inspection, nondistended, normoactive bowel sounds, soft to palpation, non-tender and non-distended Extremity Extremity Narrative: Below the knee amputation on the right and above the knee amputation on the left with prosthesis in place. Skin Skin Narrative: Large distal wound on the right lower extremity was visualized directly. Does show granulation tissue with no surrounding erythema or purulence. Stage II coccyx wound noted Neuro Sensorium / Orientation: awake and alert Psych affect normal Lab / Micro Data Result Diagrams: 06/11/21 01:00 06/11/21 02:30 Labs: Laboratory Results - last 24 hr 06/10/21 13:59: POC Glucose > 500 H* 06/10/21 14:00: WBC 8.0, RBC 3.45 L, Hgb 11.3 L, Hct 34.5 L, MCV 100.0 H, MCH 32.8 H, MCHC 32.8, RDW Std Deviation 53.2 H, RDW Coeff of Jac 14.8 H, Plt Count 162, MPV 9.9, Immature Gran % (Auto) 0.400, Neut % (Auto) 89.6 H, Lymph % (Auto) 4.3 L, [place] % (Auto) 5.3, Eos % (Auto) 0.1, Baso % (Auto) 0.3, Absolute Neuts (auto) 7.2, Absolute Lymphs (auto) 0.34 L, Nucleated RBC % 0 06/10/21 14:00: Sodium 132 L, Potassium 5.4 H, Chloride 87 L, Carbon Dioxide 22.0, Anion Gap 23 H, BUN 39 H, Creatinine 2.03 H, Estim Creat Clear Calc 35.58, Est GFR (MDRD) Af Amer 41 L, Est GFR (MDRD) Non-Af 34 L, BUN/Creatinine Ratio 19.2, Glucose 601 H*, Calcium 8.0 L, Total Bilirubin 2.30 H, AST 34, ALT 20, Alkaline Phosphatase 83, Total Protein 6.7, Albumin 3.1 L, Globulin 3.6, Albumin/Globulin Ratio 0.9 06/10/21 14:00: Lactic Acid 4.4 H* 06/10/21 14:00: Troponin I High Sens 182 H* 06/10/21 14:00: Acetone Level SMALL H 06/10/21 14:00: Hemoglobin A1c 6.5 H 06/10/21 16:38: POC Glucose > 500 H* 06/10/21 17:58: POC Glucose > 500 H* 06/10/21 18:35: Troponin I High Sens 674 H* 06/10/21 18:35: Sodium 135 L, Potassium 4.0, Chloride 94 L, Carbon Dioxide 20.0 L, Anion Gap 21 H, BUN 40 H, Creatinine 2.16 H, Estim Creat Clear Calc 33.70, Est GFR (MDRD) Af Amer 39 L, Est GFR (MDRD) Non-Af 32 L, BUN/Creatinine Ratio 18.5, Glucose 562 H*, Calcium 7.0 L 06/10/21 18:39: Lactic Acid 3.6 H* 06/10/21 18:58: POC Glucose 494 H* 06/10/21 19:56: POC Glucose > 500 H* 06/10/21 20:59: POC Glucose 499 H* 06/10/21 21:55: POC Glucose 457 H* 06/10/21 22:30: Sodium 135 L, Potassium 4.6, Chloride 96 L, Carbon Dioxide 25.0, Anion Gap 14, BUN 42 H, Creatinine 2.13 H, Estim Creat Clear Calc 34.17, Est GFR (MDRD) Af Amer 39 L, Est GFR (MDRD) Non-Af 32 L, BUN/Creatinine Ratio 19.7, Glucose 435 H, Calcium 7.0 L, Troponin I High Sens 1227 H* 06/10/21 23:05: POC Glucose 347 H 06/11/21 00:02: POC Glucose 354 H 06/11/21 00:50: POC Glucose 346 H 06/11/21 01:00: WBC 8.8, RBC 3.02 L, Hgb 9.8 L, Hct 30.8 L, MCV 102.0 H, MCH 32.5 H, MCHC 31.8 L, RDW Std Deviation 54.4 H, RDW Coeff of Jac 14.9 H, Plt Count 138 L, MPV 9.4, Immature Gran % (Auto) 0.600, Neut % (Auto) 84.8 H, Lymph % (Auto) 6.3 L, [place] % (Auto) 8.1, Eos % (Auto) 0.0, Baso % (Auto) 0.2, Absolute Neuts (auto) 7.5, Absolute Lymphs (auto) 0.56 L, Nucleated RBC % 0, Differential Comment SCANNED, Anisocytosis 1+, Macrocytosis 1+ 06/11/21 01:00: APTT 42.3 H 06/11/21 02:04: POC Glucose 292 H 06/11/21 02:30: Sodium 137, Potassium 3.6, Chloride 98, Carbon Dioxide 29.0, Ani on Gap 10, BUN 45 H, Creatinine 2.10 H, Estim Creat Clear Calc 34.66, Est GFR (MDRD) Af Amer 40 L, Est GFR (MDRD) Non-Af 33 L, BUN/Creatinine Ratio 21.4 H, Glucose 286 H, Calcium 6.8 L 06/11/21 02:58: POC Glucose 244 H 06/11/21 04:02: POC Glucose 230 H 06/11/21 05:30: Urine Color Yellow, Urine Clarity Cloudy, Urine pH 5.0, Ur Specific [place] 1.020, Urine Protein 100 H, Urine Glucose (UA) 100 H, Urine Ketones 15 H, Urine Occult Blood 250 H, Urine Nitrite Positive H, Urine Bilirubin 1 H, Urine Urobilinogen 4 H, Ur Leukocyte Esterase 500 H, Urine RBC > 100 SEEN, Urine WBC >100 SEEN, Ur Squamous Epith Cells 0 SEEN, Ur Transition Epith Cell 0-5 SEEN, Urine Bacteria 2+, Urine Mucus 0 SEEN 06/11/21 06:00: POC Glucose 168 H 06/11/21 08:13: POC Glucose 113 H ABG Data ABG results: ABG 06/10/21 14:07 Specimen Type LAURA VBG pH 7.32 VBG pO2 62 H VBG HCO3 23 VBG Total CO2 25 VBG O2 Sat (Calc) 89 H VBG Base Excess -3 L POC Mix VBG pCO2 Pt Tmp 45.1 Radiology Impression Chest X-Ray 06/10/21 14:20 IMPRESSION: Stable blunting of the left costophrenic angle. Mild stable increased markings at the right lung base suggestive of atelectasis. Electronically Signed: Ramon Lemus MD at 14:35 EST , Service support , Chest X-Ray 06/11/21 03:45 IMPRESSION: 1. Interval placement of right internal jugular deep venous line with tip the catheter overlying the junction of the right atrium and superior vena cava with no pneumothorax. 2. Poor inspiration with some bibasilar atelectasis. Electronically Signed: Kurt Fuentes MD at 7:16 EST Tel , Service support , KUB X-Ray 06/11/21 04:30 IMPRESSION: Non-obstructive bowel gas pattern. at 0539 Reported and signed by: Felipe Loco MD Electronically Signed: Felipe Loco MD at 5:38 EST Tel , Service support , Charges/Coding Procedures Hospitalists Procedures: [id number] [facility]
[2021-06-11] MEDS: Pantoprazole Sodium 40 MG Tablet PO (08:46)
[2021-06-11] MEDS: Clopidogrel Bisulfate 75 MG Tablet PO (08:46)
[2021-06-11] MEDS: Aspirin 81 MG TAB.CHEW PO (08:46)
[2021-06-11] MEDS: Citalopram 20 MG Tablet PO (08:47)
[2021-06-11] MEDS: Doxycycline 100 MG CAPSULE PO (08:47)
[2021-06-11] MEDS: Ammonium Lactate 225 gm Bottle 1 APPLIC TOPICAL (08:55)
[2021-06-11] MEDS: Lidocaine 5% Patch 1 PATCH TOPICAL (08:56)
--- NOTE | 2021-06-11 10:27 | PCM.RX.CS ---
Consult Pharmacy has been consulted to manage selected antiobiotic: Vancomycin Type of Consult: New start Suspected Infection: Sepsis Labs: Sodium 137 mmol/L (136-145) 06/11/21 02:30 Potassium 3.6 mmol/L (3.5-5.1) 06/11/21 02:30 Chloride 98 mmol/L (98-107) 06/11/21 02:30 Carbon Dioxide 29.0 mmol/L (21.0-32.0) 06/11/21 02:30 Anion Gap 10 (5-15) 06/11/21 02:30 BUN 45 mg/dL (7-18) H 06/11/21 02:30 Creatinine 2.10 mg/dL (0.70-1.30) H 06/11/21 02:30 Est GFR (MDRD) Af Amer 40 mL/min (>60) L 06/11/21 02:30 Est GFR (MDRD) Non-Af 33 mL/min (>60) L 06/11/21 02:30 BUN/Creatinine Ratio 21.4 RATIO (10-20) H 06/11/21 02:30 Glucose 286 mg/dL (74-106) H 06/11/21 02:30 Goal Trough: 15-20 mcg/mL Pharmacy Plan for Drug Dosing: NEW START IV VANCOMYCIN Consulting Physician: Dr. Hickey Indication: Septic Shock Goal Trough: 15-20 SrCr: 2.1 CrCl: 17 mL/min Comments: Loading dose 2g IV x1 entered and administered 06/11/21 @0942 Vancomcyin Dose: Since CrCl <20, will hold on scheduled dosing. Will order a random trough and redose based on levels until CrCl improves. Pending Level: *RANDOM* level 06/13/21 with AM labs Pharmacy Service will continue to monitor and adjust dosing as required.
[2021-06-11 11:15] LABS: Bedside Glucose 43 mg/dL (70-110)
--- NOTE | 2021-06-11 11:17 | CASEMGMT ---
SARI HAND Assessment: Face to Face with pt for initial transition planning/care coordination assessment. RN YAZAN introduced self and role at [facility], pt voices understanding and consents to assessment. Pt is drowsy at this time. Nurse in room as well. Pt agreeable to this RN CM calling his for assessment as he could not keep his eyes open. TC to pt , introduced self and role. She consented to assessment. Care providers, pharmacy, and demographics verified/updated. Admitting Dx: DKA PCP:Pee Specialists:Iain, cardio; Narayan, vascular; Magi, heme; Aminah Leary HOME APPLIANCE WASHING MACHINE MECHANIC [facility]; Jarad for pacemaker and defib; Ty pulm Preferred Pharmacy: [facility] Insurance: [facility] Prescription Benefit: yes LNOK: Alexia Carr, ; Sushma Ahmadi, dtr Living Arrangements: Pt lives with in a bi level home with stair lifts and a ramp to enter. Pt states she assists pt in bathing and pt is able to dress self. Transportation: Pt transports pt to medical appts. They have a van with a hoist to put the scooter into. DME/HHC/SNF: Pt has a functioning BGM with strips and lancets. He also has supplies such as needles and insulin. She states pt checks his blood sugar twice daily, once in AM and once in PM and records it. Pt has a BSC, shower bench, motorized scooter x2- one on each floor of the home. Pt currently has [facility] HHC for SN. [facility] was seeing pt but has done all they can until pt receives his prosthesis. Pt has been in [facility] in August. Pt states pt had a wound on his R foot with infection in the bone. The bone was removed in August and this did not heal so pt had amputation in December. Pt had left amputation 6 years ago. Pt states no concerns with going home at time of dc. She would like pt to resume his HHC. She is aware of lost charge card clerk in [place] and [facility] hospitalist discussed this with her. She states has been managing pt DM and he has his Hgb A1C checked every 3 mos. Pt states no further concerns/needs. CM to follow. Advised pt to ask CM if any further question/concerns/needs arise, voices understanding. Pt Goal: Home with resumption of [facility] HHC Plan: Home with resumption of [facility] HHC
[2021-06-11] MEDS: Dextrose 50%-Water 25 GM/50 ML DISP.SYRIN IV (11:26)
[2021-06-11 11:30] LABS: Bedside Glucose 91 mg/dL (70-110)
[2021-06-11] MEDS: Norepinephrine 8 mg/250 mL 0.9% NS 28.1 MG CONT INF ×2 (12:01→20:16)
--- NOTE | 2021-06-11 12:47 | PCM.PN.HOSP ---
Subjective Subjective Remained hypotensive despite IVF requiring central IV access and pressors. Objective Data Objective Data Vital Signs: Vital Signs Temp Pulse Resp BP Pulse Ox 37.1 C 90 10 L 96/60 100 06/11/21 12:00 06/11/21 12:00 06/11/21 12:00 06/11/21 12:24 06/11/21 12:00 Oxygen Flow Rate (L/min) 2 Oxygen Delivery Method Nasal Cannula Weight: 81.1 kg Body Mass Index (BMI) 39.2 Intake & Output: Intake and Output for Last 24 Hours 06/09/21 06/10/21 06/11/21 23:59 23:59 23:59 Intake Total 3137.53 / 3141.58 2566.87 / 2566.87 Output Total 500 / 500 Balance 3137.53 / 3141.58 2066.87 / 2066.87 Lab / Micro Data Result Diagrams: 06/11/21 01:00 06/11/21 02:30 Labs: Laboratory Results - last 24 hr 06/10/21 13:59: POC Glucose > 500 H* 06/10/21 14:00: WBC 8.0, RBC 3.45 L, Hgb 11.3 L, Hct 34.5 L, MCV 100.0 H, MCH 32.8 H, MCHC 32.8, RDW Std Deviation 53.2 H, RDW Coeff of Jac 14.8 H, Plt Count 162, MPV 9.9, Immature Gran % (Auto) 0.400, Neut % (Auto) 89.6 H, Lymph % (Auto) 4.3 L, [place] % (Auto) 5.3, Eos % (Auto) 0.1, Baso % (Auto) 0.3, Absolute Neuts (auto) 7.2, Absolute Lymphs (auto) 0.34 L, Nucleated RBC % 0 06/10/21 14:00: Sodium 132 L, Potassium 5.4 H, Chloride 87 L, Carbon Dioxide 22.0, Anion Gap 23 H, BUN 39 H, Creatinine 2.03 H, Estim Creat Clear Calc 35.58, Est GFR (MDRD) Af Amer 41 L, Est GFR (MDRD) Non-Af 34 L, BUN/Creatinine Ratio 19.2, Glucose 601 H*, Calcium 8.0 L, Total Bilirubin 2.30 H, AST 34, ALT 20, Alkaline Phosphatase 83, Total Protein 6.7, Albumin 3.1 L, Globulin 3.6, Albumin/Globulin Ratio 0.9 06/10/21 14:00: Lactic Acid 4.4 H* 06/10/21 14:00: Troponin I High Sens 182 H* 06/10/21 14:00: Acetone Level SMALL H 06/10/21 14:00: Hemoglobin A1c 6.5 H 06/10/21 16:38: POC Glucose > 500 H* 06/10/21 17:58: POC Glucose > 500 H* 06/10/21 18:35: Troponin I High Sens 674 H* 06/10/21 18:35: Sodium 135 L, Potassium 4.0, Chloride 94 L, Carbon Dioxide 20.0 L, Anion Gap 21 H, BUN 40 H, Creatinine 2.16 H, Estim Creat Clear Calc 33.70, Est GFR (MDRD) Af Amer 39 L, Est GFR (MDRD) Non-Af 32 L, BUN/Creatinine Ratio 18.5, Glucose 562 H*, Calcium 7.0 L 06/10/21 18:39: Lactic Acid 3.6 H* 06/10/21 18:58: POC Glucose 494 H* 06/10/21 19:56: POC Glucose > 500 H* 06/10/21 20:59: POC Glucose 499 H* 06/10/21 21:55: POC Glucose 457 H* 06/10/21 22:30: Sodium 135 L, Potassium 4.6, Chloride 96 L, Carbon Dioxide 25.0, Anion Gap 14, BUN 42 H, Creatinine 2.13 H, Estim Creat Clear Calc 34.17, Est GFR (MDRD) Af Amer 39 L, Est GFR (MDRD) Non-Af 32 L, BUN/Creatinine Ratio 19.7, Glucose 435 H, Calcium 7.0 L, Troponin I High Sens 1227 H* 06/10/21 23:05: POC Glucose 347 H 06/11/21 00:02: POC Glucose 354 H 06/11/21 00:50: POC Glucose 346 H 06/11/21 01:00: WBC 8.8, RBC 3.02 L, Hgb 9.8 L, Hct 30.8 L, MCV 102.0 H, MCH 32.5 H, MCHC 31.8 L, RDW Std Deviation 54.4 H, RDW Coeff of Jac 14.9 H, Plt Count 138 L, MPV 9.4, Immature Gran % (Auto) 0.600, Neut % (Auto) 84.8 H, Lymph % (Auto) 6.3 L, [place] % (Auto) 8.1, Eos % (Auto) 0.0, Baso % (Auto) 0.2, Absolute Neuts (auto) 7.5, Absolute Lymphs (auto) 0.56 L, Nucleated RBC % 0, Differential Comment SCANNED, Anisocytosis 1+, Macrocytosis 1+ 06/11/21 01:00: APTT 42.3 H 06/11/21 02:04: POC Glucose 292 H 06/11/21 02:30: Sodium 137, Potassium 3.6, Chloride 98, Carbon Dioxide 29.0, Anion Gap 10, BUN 45 H, Creatinine 2.10 H, Estim Creat Clear Calc 34.66, Est GFR (MDRD) Af Amer 40 L, Est GFR (MDRD) Non-Af 33 L, BUN/Creatinine Ratio 21.4 H, Glucose 286 H, Calcium 6.8 L 06/11/21 02:58: POC Glucose 244 H 06/11/21 04:02: POC Glucose 230 H 06/11/21 05:30: Urine Color Yellow, Urine Clarity Cloudy, Urine pH 5.0, Ur Specific [place] 1.020, Urine Protein 100 H, Urine Glucose (UA) 100 H, Urine Ketones 15 H, Urine Occult Blood 250 H, Urine Nitrite Positive H, Urine Bilirubin 1 H, Urine Urobilinogen 4 H, Ur Leukocyte Esterase 500 H, Urine RBC > 100 SEEN, Urine WBC >100 SEEN, Ur Squamous Epith Cells 0 SEEN, Ur Transition Epith Cell 0-5 SEEN, Urine Bacteria 2+, Urine Mucus 0 SEEN 06/11/21 06:00: POC Glucose 168 H 06/11/21 08:13: POC Glucose 113 H 06/11/21 11:03: POC Glucose 43 L* 06/11/21 11:26: POC Glucose 91 06/11/21 12:05: APTT 114.0 H* ABG Data ABG results: ABG 06/10/21 14:07 Specimen Type LAURA VBG pH 7.32 VBG pO2 62 H VBG HCO3 23 VBG Total CO2 25 VBG O2 Sat (Calc) 89 H VBG Base Excess -3 L POC Mix VBG pCO2 Pt Tmp 45.1 Radiography Diagnostic Testing: Radiology Impression Chest X-Ray 06/10/21 14:20 IMPRESSION: Stable blunting of the left costophrenic angle. Mild stable increased markings at the right lung base suggestive of atelectasis. Electronically Signed: Ramon Lemus MD at 14:35 EST , Service support , Chest X-Ray 06/11/21 03:45 IMPRESSION: 1. Interval placement of right internal jugular deep venous line with tip the catheter overlying the junction of the right atrium and superior vena cava with no pneumothorax. 2. Poor inspiration with some bibasilar atelectasis. Electronically Signed: Alonzo Fuentes MD at 7:16 EST Tel , Service support , KUB X-Ray 06/11/21 04:30 IMPRESSION: Non-obstructive bowel gas pattern. at 0539 Reported and signed by: Felipe Loco MD Electronically Signed: Felipe Loco MD at 5:38 EST Tel , Service support , Physical Exam Const alert and no apparent distress Resp normal respiratory effort, no retractions, no use of accessory muscles and clear to auscultation bilaterally Cardio regular rate, regular rhythm, S1 normal heart sound and S2 normal heart sound GI normal to inspection, nondistended, normoactive bowel sounds, soft to palpation and non-tender Extremity Extremity Narrative: AKA on left, BKA on right Skin Skin Narrative: clear ulcer at distal RLE on stump Assessment & Plan Assessment/Plan (1) Diabetic ketoacidosis: QUALIFIERS: Diabetes mellitus type: type 1 Diabetes mellitus complication detail: without coma Qualified Code(s): E10.10 - Type 1 diabetes mellitus with ketoacidosis without coma (2) Elevated troponin: (3) Acute kidney injury: PLAN: 1. DKA Patient type I diabetic a1c 6.5 At baseline, sounds like that he is a poorly controlled and then he may not have taken his insulin last night which may have precipitated this event. Transitioned to Basal and SSI 2. Septic shock unclear source on christina and vanc follow cultures 3. Acute kidney injury May be ATN continue hold diuretics Creatinine is 2.03 and baseline creatinine is 0.82 IV fluids but caution with the patient's history of heart failure 3. NSTEMI May be type II event as patient's troponins have been chronically elevated in the past. Cardiology consult. heparin gtt Patient did have stress test back in June 2020 and that was negative. 4. Heart failure with reduced ejection fraction EF is 20% Hold diuretics as well as Entresto given the WEST 5. Right lower extremity wound On his stump has been poorly healing No clinical evidence or appearance of infection at this time Continue with doxycycline that he is taken for that 6. VTE prophylaxis: Low kimberly weight heparin 7. Advanced care planning: Discussed with patient. Patient wishes to be full CODE STATUS. Charges/Coding Visit Charges Inpatient E&M: 62251 Subs Hosp L2
[2021-06-11 14:05] LABS: Bedside Glucose 76 mg/dL (70-110)
--- NOTE | 2021-06-11 14:27 | CON.PCM.CA_ITS ---
Assessment & Plan Assessment/Plan (1) Diabetic ketoacidosis: QUALIFIERS: Diabetes mellitus type: type 1 Diabetes mellitus complication detail: without coma Qualified Code(s): E10.10 - Type 1 diabetes mellitus with ketoacidosis without coma (2) Septic shock: (3) Obstructive sleep apnea: (4) Below-knee amputation of right lower extremity: (5) History of coronary artery stent placement: (6) Peripheral vascular disease due to secondary diabetes: (7) Biventricular implantable cardioverter-defibrillator (ICD) in situ: (8) Non-ST elevation (NSTEMI) myocardial infarction: PLAN: 75-year-old patient with extensive cardiac history, at bedside and was able to give a detailed history This patient has multiple medical comorbidities and a history of diabetes mellitus with diabetic ketoacidosis Severe peripheral vascular disease. Acute kidney injury. Bilateral below-knee amputation, stage II decubitus ulcers, COPD, obstructive sleep apnea Septic shock secondary to UTI. Due to extensive cardiac history and elevated cardiac biomarkers with the non-ST elevation IN Patient has no active symptoms of chest pain and this is likely type II myocardial infarction with the demand myocardial ischemia. Patient had history of CABG in 2003 subsequently had PCI and stenting March 2019 And had ICD/biventricular pacer with a generator change in September 19 Cardiac care plan and recommendations; 1. We will continue heparin and current medical treatment, noted carvedilol has been on hold due to the hypotension Patient currently on inotropic support Patient had severe ischemic cardiomyopathy with severe coronary artery atherosclerosis with ejection fraction of around 20%. 2. Patient recently seen in the cardiology office to establish cardiac care 3 will echocardiogram and also will interrogate ICD/biventricular pacer device on Sunday. 4. We will continue to monitor and follow-up clinically and Dr. Timmons will resume cardiac care and discuss further plan. HPI Consult Data Date of Consult: 06/11/21 HPI Narrative Reason for Consultation: CAD, ischemic cardiomyopathy, non-STEMI HPI Narrative: KURT JEONG, is a 75 M who presents [facility] Medical History Amputation of right foot Amputee of extremity Anemia Below-knee amputation of left lower extremity Biventricular implantable cardioverter-defibrillator (ICD) in situ Cardiology follow-up encounter Cataract Cellulitis of right lower extremity Cellulitis of right lower limb Chronic obstructive pulmonary disease Chronic pain Chronic systolic congestive heart failure COPD (chronic obstructive pulmonary disease) Coronary artery disease Coronary artery disease Coronary artery disease involving [place] coronary artery of [place] heart Debility Depression Diabetes Diabetes Diabetes mellitus Diabetes mellitus type 2 with atherosclerosis of arteries of extremities Diaphragm paralysis Difficulty balancing Difficulty chewing Difficulty swallowing Fatigue Former smoker Former smoker Gastric reflux Gastroesophageal reflux disease Glaucoma Glaucoma High cholesterol High cholesterol History of below-knee amputation of left lower extremity History of edema History of irregular heartbeat History of MDR Pseudomonas aeruginosa infection History of pacemaker History of steroid therapy History of stress test Hyperlipidemia Hypertension Hypothyroidism Insulin dependent diabetes mellitus Ischemic cardiomyopathy Ischemic cardiomyopathy with implantable cardioverter-defibrillator (ICD) Macrocytic anemia Malnutrition Metabolic alkalosis Nausea & vomiting Non-healing amputation site Non-pressure chronic ulcer of other part of right foot with fat layer exposed Non-pressure chronic ulcer of other part of right foot with muscle involvement without evidence of necrosis Non-pressure chronic ulcer of right calf limited to breakdown of skin Non-pressure chronic ulcer of unspecified part of left lower leg with necrosis of muscle 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 On home oxygen therapy 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 Other acute postprocedural pain Other specified peripheral vascular diseases Peripheral arterial occlusive disease Peripheral vascular disease due to secondary diabetes Personal history of Methicillin resistant Staphylococcus aureus infection Personal history of Methicillin resistant Staphylococcus aureus infection Pseudomonas aeruginosa infection Pulmonary HTN SOB (shortness of breath) Status post below knee amputation of right lower 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 Tachycardia Type 2 diabetes mellitus with diabetic polyneuropathy Ulcer of left lower extremity with fat layer exposed Ulcer of right foot with fat layer exposed Ulcer of right foot with muscle involvement without evidence of necrosis Ulcer of right foot with necrosis of bone Ulcer of right foot with necrosis of muscle Ulcer of right lower extremity with fat layer exposed Ulcer of right lower extremity with fat layer exposed Uses wheelchair Wears glasses Wears hearing aid Wears hearing aid in both ears Home Medications aspirin 81 mg tablet,delayed release 81 mg PO DAILY 12/17/19 [History Last Taken 08/13/20] clopidogrel 75 mg PO DAILY 08/06/20 [History Last Taken 08/13/20] pravastatin 40 mg PO QHS 08/06/20 [History Last Taken 08/13/20] ammonium lactate 227 g TP DAILY 01/12/21 [History Last Taken Unknown] levothyroxine 200 mcg PO DAILY #0 tab 01/28/21 [Rx Last Taken 08/13/20] tizanidine 4 mg PO QHS 30 Days #60 tab 02/07/21 [Rx Last Taken Unknown] carvedilol 3.125 mg tablet 3.125 mg PO BID #60 tab 03/17/21 [Rx Last Taken Unknown] doxycycline monohydrate 100 mg capsule 100 mg PO BID 21 Days #42 cap 05/11/21 [Rx Last Taken Unknown] acetaminophen 500 mg tablet 1,000 mg PO Q8 PRN tab 06/01/21 [History Last Taken Unknown] citalopram 20 mg tablet 20 mg PO DAILY tab 06/01/21 [History Last Taken Unknown] insulin glargine 100 unit/mL (3 mL) subcutaneous pen 10 unit SUBCUT QHS ml 06/01/21 [History Last Taken Unknown] insulin lispro 100 unit/mL subcutaneous pen 5 unit SUBCUT TIDAC PRN ml 06/01/21 [History Last Taken Unknown] lidocaine 5 % topical patch 1 patch TRANSDERMAL DAILY ea 06/01/21 [History Last Taken Unknown] metolazone 5 mg tablet 5 mg PO .3 Days week tab 06/01/21 [History Last Taken Unknown] omeprazole 40 mg capsule,delayed release 40 mg PO DAILY cap 06/01/21 [History Last Taken Unknown] ondansetron HCl 4 mg tablet 4 mg PO Q8H PRN tab 06/01/21 [History Last Taken Unknown] oxycodone-acetaminophen 5 mg-325 mg tablet 1 tab PO DAILY PRN tab 06/01/21 [History Last Taken Unknown] sacubitril 24 mg-valsartan 26 mg tablet 1 tab PO BID #60 tab 06/01/21 [Rx Last Taken Unknown] furosemide 40 mg tablet 40 mg PO .COMPLEX #180 tab 06/06/21 [Rx Last Taken Unknown] Allergy/AdvReac Type Severity Reaction Status Date / Time amiodarone Allergy Severe pulmonary Verified 06/10/21 13:50 fibrosis sotalol Allergy Severe intolerant Verified 06/10/21 13:50 cefdinir Allergy PT UNSURE Verified 06/10/21 13:50 OF REACTION cephalexin Allergy PT UNSURE Verified 06/10/21 13:50 OF REACTION chlorthalidone Allergy PT UNSURE Verified 06/10/21 13:50 OF REACTION dofetilide [From Tikosyn] Allergy PT UNSURE Verified 06/10/21 13:50 OF REACTION Latex, Natural Rubber Allergy Itching Verified 06/10/21 13:50 levofloxacin [From Levaquin] Allergy Pain in Verified 06/10/21 13:50 joints linezolid Allergy PT UNSURE Verified 06/10/21 13:50 OF REACTION metronidazole Allergy PT UNSURE Verified 06/10/21 13:50 OF REACTION sulfamethoxazole Allergy PT UNSURE Verified 06/10/21 13:50 [From Bactrim] OF REACTION tizanidine Allergy PT UNSURE Verified 06/10/21 13:50 OF REACTION trimethoprim [From Bactrim] Allergy PT UNSURE Verified 06/10/21 13:50 OF REACTION gabapentin AdvReac Diarrhea Verified 06/10/21 13:50 latex AdvReac Rash Verified 06/10/21 13:50 Family History Sister Diabetes Mother Heart disease Valve replacement Father Diabetes Other History of MDR Pseudomonas aeruginosa infection Surgical History History of amputation of toe History of bilateral cataract extraction History of cardiac catheterization History of cholecystectomy History of coronary artery bypass graft (~2003) History of coronary artery stent placement (~03/2019) History of endoscopy History of implantable cardiac defibrillator (ICD) History of left below knee amputation (~2014) Hx of amputation Hx of cholecystectomy Hx of heart artery stent Presence of permanent cardiac pacemaker (~08/2020) Status post below-knee amputation of left lower extremity Social History household members: spouse housing: house Smoking Status: Former smoker quit date: 07/02/98 pack-years: 34 alcohol intake: current alcohol intake frequency: holidays/special occasions o nly substance use type: does not use caffeine: Yes Type: coffee Number of servings: 2 Physical Exam Narrative Patient seen and examined and evaluated at bedside, at bedside Orientated to place and was able to recognize his No symptoms of chest pain reported Cardiovascular exam S1-S2 is regular, no murmur no systolic or diastolic murmur, no pericardial rub or gallop rhythm Chest examination normal air entry bilaterally. Risk Stratification Risk Stratification Applicable: Yes Age >/= 65: Yes >/= 3 CAD Risk Factors (HTN, HLD, DM, family hx of CAD, or current smoker): Yes Aspirin Use in the Past 7 Days: Yes Severe Angina (>/= episodes in 24 hours): No EKG ST Changes >/= 0.5mm: No Positive Cardiac Marker: Yes GOSIA Risk Stratification Score: 4 GOSIA % Risk: 20% Risk Objective Data Vital Signs: Vital Signs Temp Pulse Resp BP Pulse Ox 98.7 F 91 13 98/61 100 06/11/21 12:00 06/11/21 14:00 06/11/21 14:00 06/11/21 14:00 06/11/21 14:00 Oxygen Flow Rate (L/min) 2 Oxygen Delivery Method Nasal Cannula Weight: 178 lb 12.718 oz Body Mass Index (BMI) 39.2 Intake & Output: Intake and Output for Last 24 Hours 06/09/21 06/10/21 06/11/21 23:59 23:59 23:59 Intake Total 3137.53 / 3141.58 2611.83 / 2611.83 Output Total 500 / 500 Balance 3137.53 / 3141.58 2111.83 / 2111.83 Lab / Micro Data Result Diagrams: 06/11/21 01:00 06/11/21 02:30 Labs: Laboratory Results - last 24 hr 06/10/21 14:00: Sodium 132 L, Potassium 5.4 H, Chloride 87 L, Carbon Dioxide 22.0, Anion Gap 23 H, BUN 39 H, Creatinine 2.03 H, Estim Creat Clear Calc 35.58, Est GFR (MDRD) Af Amer 41 L, Est GFR (MDRD) Non-Af 34 L, BUN/Creatinine Ratio 19.2, Glucose 601 H*, Calcium 8.0 L, Total Bilirubin 2.30 H, AST 34, ALT 20, Alkaline Phosphatase 83, Total Protein 6.7, Albumin 3.1 L, Globulin 3.6, Albumin/Globulin Ratio 0.9 06/10/21 14:00: Lactic Acid 4.4 H* 06/10/21 14:00: Troponin I High Sens 182 H* 06/10/21 14:00: Acetone Level SMALL H 06/10/21 14:00: Hemoglobin A1c 6.5 H 06/10/21 16:38: POC Glucose > 500 H* 06/10/21 17:58: POC Glucose > 500 H* 06/10/21 18:35: Troponin I High Sens 674 H* 06/10/21 18:35: Sodium 135 L, Potassium 4.0, Chloride 94 L, Carbon Dioxide 20.0 L, Anion Gap 21 H, BUN 40 H, Creatinine 2.16 H, Estim Creat Clear Calc 33.70, Est GFR (MDRD) Af Amer 39 L, Est GFR (MDRD) Non-Af 32 L, BUN/Creatinine Ratio 18.5, Glucose 562 H*, Calcium 7.0 L 06/10/21 18:39: Lactic Acid 3.6 H* 06/10/21 18:58: POC Glucose 494 H* 06/10/21 19:56: POC Glucose > 500 H* 06/10/21 20:59: POC Glucose 499 H* 06/10/21 21:55: POC Glucose 457 H* 06/10/21 22:30: Sodium 135 L, Potassium 4.6, Chloride 96 L, Carbon Dioxide 25.0, Anion Gap 14, BUN 42 H, Creatinine 2.13 H, Estim Creat Clear Calc 34.17, Est GFR (MDRD) Af Amer 39 L, Est GFR (MDRD) Non-Af 32 L, BUN/Creatinine Ratio 19.7, Glucose 435 H, Calcium 7.0 L, Troponin I High Sens 1227 H* 06/10/21 23:05: POC Glucose 347 H 06/11/21 00:02: POC Glucose 354 H 06/11/21 00:50: POC Glucose 346 H 06/11/21 01:00: WBC 8.8, RBC 3.02 L, Hgb 9.8 L, Hct 30.8 L, MCV 102.0 H, MCH 32.5 H, MCHC 31.8 L, RDW Std Deviation 54.4 H, RDW Coeff of Jac 14.9 H, Plt Count 138 L, MPV 9.4, Immature Gran % (Auto) 0.600, Neut % (Auto) 84.8 H, Lymph % (Auto) 6.3 L, [place] % (Auto) 8.1, Eos % (Auto) 0.0, Baso % (Auto) 0.2, Absolute Neuts (auto) 7.5, Absolute Lymphs (auto) 0.56 L, Nucleated RBC % 0, Differential Comment SCANNED, Anisocytosis 1+, Macrocytosis 1+ 06/11/21 01:00: APTT 42.3 H 06/11/21 02:04: POC Glucose 292 H 06/11/21 02:30: Sodium 137, Potassium 3.6, Chloride 98, Carbon Dioxide 29.0, Anion Gap 10, BUN 45 H, Creatinine 2.10 H, Estim Creat Clear Calc 34.66, Est GFR (MDRD) Af Amer 40 L, Est GFR (MDRD) Non-Af 33 L, BUN/Creatinine Ratio 21.4 H, Glucose 286 H, Calcium 6.8 L 06/11/21 02:58: POC Glucose 244 H 06/11/21 04:02: POC Glucose 230 H 06/11/21 05:30: Urine Color Yellow, Urine Clarity Cloudy, Urine pH 5.0, Ur Specific [place] 1.020, Urine Protein 100 H, Urine Glucose (UA) 100 H, Urine Ketones 15 H, Urine Occult Blood 250 H, Urine Nitrite Positive H, Urine Bilirubin 1 H, Urine Urobilinogen 4 H, Ur Leukocyte Esterase 500 H, Urine RBC > 100 SEEN, Urine WBC >100 SEEN, Ur Squamous Epith Cells 0 SEEN, Ur Transition Epith Cell 0-5 SEEN, Urine Bacteria 2+, Urine Mucus 0 SEEN 06/11/21 06:00: POC Glucose 168 H 06/11/21 08:13: POC Glucose 113 H 06/11/21 11:03: POC Glucose 43 L* 06/11/21 11:26: POC Glucose 91 06/11/21 12:05: APTT 114.0 H* 06/11/21 13:58: POC Glucose 76 Cardiology Labs/Tests 06/10/21 14:00: Sodium 132 L, Potassium 5.4 H, Chloride 87 L, Carbon Dioxide 22.0, Anion Gap 23 H, BUN 39 H, Creatinine 2.03 H, Est GFR (MDRD) Af Amer 41 L, Est GFR (MDRD) Non-Af 34 L, BUN/Creatinine Ratio 19.2, Glucose 601 H*, Calcium 8 .0 L, Total Bilirubin 2.30 H 06/10/21 14:00: Lactic Acid 4.4 H* 06/10/21 14:00: Hemoglobin A1c 6.5 H 06/10/21 18:35: Sodium 135 L, Potassium 4.0, Chloride 94 L, Carbon Dioxide 20.0 L, Anion Gap 21 H, BUN 40 H, Creatinine 2.16 H, Est GFR (MDRD) Af Amer 39 L, Est GFR (MDRD) Non-Af 32 L, BUN/Creatinine Ratio 18.5, Glucose 562 H*, Calcium 7.0 L 06/10/21 18:39: Lactic Acid 3.6 H* 06/10/21 22:30: Sodium 135 L, Potassium 4.6, Chloride 96 L, Carbon Dioxide 25.0, Anion Gap 14, BUN 42 H, Creatinine 2.13 H, Est GFR (MDRD) Af Amer 39 L, Est GFR (MDRD) Non-Af 32 L, BUN/Creatinine Ratio 19.7, Glucose 435 H, Calcium 7.0 L 06/11/21 01:00: WBC 8.8, RBC 3.02 L, Hgb 9.8 L, Hct 30.8 L, MCV 102.0 H, MCH 32.5 H, MCHC 31.8 L, Plt Count 138 L, MPV 9.4, Immature Gran % (Auto) 0.600, Neut % (Auto) 84.8 H, Lymph % (Auto) 6.3 L, [place] % (Auto) 8.1, Eos % (Auto) 0.0, Baso % (Auto) 0.2, Absolute Neuts (auto) 7.5, Nucleated RBC % 0 06/11/21 01:00: APTT 42.3 H 06/11/21 02:30: Sodium 137, Potassium 3.6, Chloride 98, Carbon Dioxide 29.0, Anion Gap 10, BUN 45 H, Creatinine 2.10 H, Est GFR (MDRD) Af Amer 40 L, Est GFR (MDRD) Non-Af 33 L, BUN/Creatinine Ratio 21.4 H, Glucose 286 H, Calcium 6.8 L 06/11/21 05:30: Urine Color Yellow, Urine Clarity Cloudy, Urine pH 5.0, Ur Specific [place] 1.020, Urine Protein 100 H, Urine Glucose (UA) 100 H, Urine Ketones 15 H, Urine Occult Blood 250 H, Urine Nitrite Positive H, Urine Bilirubin 1 H, Urine Urobilinogen 4 H, Ur Leukocyte Esterase 500 H, Urine RBC > 100 SEEN, Urine WBC >100 SEEN 06/11/21 12:05: APTT 114.0 H* Rhythm: Atrial sensed ventricular paced rhythm EKG: Paced ventricular rhythm ECHO: Severe LV systolic dysfunction ejection fraction of 20% Radiography Diagnostic Testing: Radiology Impression Chest X-Ray 06/10/21 14:20 IMPRESSION: Stable blunting of the left costophrenic angle. Mild stable increased markings at the right lung base suggestive of atelectasis. Electronically Signed: Ramon Lemus MD at 14:35 EST , Service support , Chest X-Ray 06/11/21 03:45 IMPRESSION: 1. Interval placement of right internal jugular deep venous line with tip the catheter overlying the junction of the right atrium and superior vena cava with no pneumothorax. 2. Poor inspiration with some bibasilar atelectasis. Electronically Signed: Kurt Fuentes MD at 7:16 EST Tel , Service support , KUB X-Ray 06/11/21 04:30 IMPRESSION: Non-obstructive bowel gas pattern. at 0539 Reported and signed by: Felipe Loco MD Electronically Signed: Felipe Loco MD at 5:38 EST Tel , Service support ,
[2021-06-11 15:41] LABS: Bedside Glucose 73 mg/dL (70-110)
[2021-06-11] MEDS: Dext 5%-0.45% NS 1,000 ML 50 ML IV (16:05)
[2021-06-11 20:25] LABS: Partial Thromboplast Time 40.2 Seconds (24.1-36.2)
[2021-06-11] MEDS: Heparin Injection (Vial) 5,000 UNIT/ML VIAL IV (21:07)
[2021-06-11] MEDS: Pravastatin 40 MG Tablet PO (21:20)
[2021-06-11] MEDS: tiZANidine HCl 2 MG Tablet 4 MG PO (21:20)
[2021-06-11 22:05] LABS: Bedside Glucose 101 mg/dL (70-110)
[2021-06-11] MEDS: oxyCODONE 5 MG Tablet PO (22:21)
[2021-06-12] VITALS (41 sets, daily range): BP systolic 83–115; BP diastolic 33–73; PULSE 93–115; RESP 12–27; TEMP 36.6–36.9; O2SAT 90–100
[2021-06-12 03:03] LABS: Absolute Lymphocyte Count 1.25 X10^3/uL (0.83-4.51); Absolute Neutrophil Count 14.6 X10^3/uL (2.0-7.7); Basophil# 0.07 X10^3/uL; Basophil% 0.4 % (0-1); Eosinophil# 0.08 X10^3/uL; Eosinophils% 0.5 % (0-5); Hematocrit 35.4 % (40-54); Hemoglobin 11.7 g/dL (13.0-16.5); Lymphocyte # 1.25 X10^3/ul (0.83-4.51); Lymphocyte % 7.2 % (19-41); Mean Corp Hgb Conc 33.1 g/dL (32-36); Mean Corpuscular Hgb 32.8 pg (27.0-32.0); Mean Corpuscular Volume 99.2 fL (80-94); Monocyte# 1.27 X10^3/uL; Monocyte% 7.3 % (0-10); NRBC Flagged by Analyzer 0 % (0-5); Neutrophil # 14.55 X10^3/uL (2.7-7.7); Neutrophil % 84.3 % (47-70); Platelet Count 173 K/mm3 (150-450); RBC Distribution Width CV 14.8 % (11.6-14.6); Red Blood Count 3.57 M/mm3 (4.6-6.2); White Blood Count 17.3 K/mm3 (4.4-11.0)
[2021-06-12 03:13] LABS: Partial Thromboplast Time 77.7 Seconds (24.1-36.2)
[2021-06-12] MEDS: Norepinephrine 8 mg/250 mL 0.9% NS 37.5 MG CONT INF ×2 (03:36→10:49)
[2021-06-12 04:37] LABS: ALB/GLOB Ratio 0.7 RATIO (0.9-2.4); AST(SGOT) 26 U/L (15-37); Alanine Aminotransfer ALT/SGPT 18 U/L (16-61); Albumin, Serum 2.1 g/dL (3.2-5.0); Alkaline Phosphatase 67 U/L (45-117); Anion Gap 8 (5-15); BUN 38 mg/dL (7-18); BUN/Creat Ratio 25.5 RATIO (10-20); Calcium,Total 6.4 mg/dL (8.5-10.1); Chloride 99 mmol/L (98-107); Creatinine, Serum 1.49 mg/dL (0.70-1.30); EST Glomerular Filtration Rate 49 mL/min (>60); Est Glom Filt Rate - Afr Amer 59 mL/min (>60); Estimated Creatinine Clearance 49.89 ml/min; Globulin 3.1 g/dL (2.2-4.2); Glucose 144 mg/dL (74-106); Potassium 3.6 mmol/L (3.5-5.1); Protein, Total 5.2 g/dL (6.4-8.2); Sodium Level 136 mmol/L (136-145)
[2021-06-12] MEDS: Levothyroxine 100 MCG Tablet 200 MCG PO (05:38)
--- NOTE | 2021-06-12 06:15 | PN.CC_ITS ---
Assessment & Plan Assessment/Plan (1) Diabetic ketoacidosis: QUALIFIERS: Diabetes mellitus type: type 1 Diabetes mellitus complication detail: without coma Qualified Code(s): E10.10 - Type 1 diabetes mellitus with ketoacidosis without coma (2) Septic shock: (3) Chronic obstructive pulmonary disease: (4) Obstructive sleep apnea: (5) Peripheral arterial occlusive disease: (6) ALL treated with BiPAP: (7) Diabetes mellitus type 2 with atherosclerosis of arteries of extremities: PLAN: RECOMMENDATIONS: 1. Continue subcu insulin. Discontinue D5 drip if able to take p.o. 2. Continue broad-spectrum antibiotics pending culture results 3. Wean pressors as tolerated. Maintain MAP greater than 65 4. Wound care to evaluate 5. Continue heparin drip. Continue cardiology recommendations IMPRESSIONS: 1. Septic shock secondary to UTI versus wound infection Patient's UA is suggestive of a possible UTI. Patient also has an open wound on the right lower extremity. Patient has grown MRSA and Pseudomonas in the past, so broad-spectrum antibiotics are currently being used. Await results of cultures. Continue to wean pressors as tolerated. Evidence of endorgan damage with elevated lactate and acute kidney injury. Hold off on stress dose steroids if possible given wound healing issues 2. Acute DKA secondary to problem #1 Patient responded well to an insulin drip. Patient will be placed on subcutaneous insulin with sliding scale. Patient may need titration of basal insulin given endogenous steroid release secondary to problem #1. Hemoglobin A1c is suggestive of elevated blood sugars, but not 600. Okay to discontinue D5 drip if patient is able to tolerate p.o. 3. Non-ST elevation DC secondary to problems 1 and 2 in the setting of peripheral vascular disease/systolic CHF Patient was placed on a heparin drip overnight. Cardiology has been consulted. Patient does have a history of congestive heart failure with an EF of 20%. Diuretics have been held secondary to problem #4. Await recommendations. Hold Coreg given need for pressor therapy 4. Acute kidney injury secondary to problem #1 Improving. Likely prerenal etiology given problems 1 and 2. Patient may also have a urinary tract infection with ATN. No indication for renal replacement therapy at this time. We will continue to follow. Patient has received significant volume resuscitation. 5. Stage II decubitus ulcer/bilateral BKA/history of MDRO/COPD/ALL with noncompliance Complicates care, management, recovery and prognosis. Patient does not appear to be in acute exacerbation of COPD at this time. We will continue to monitor closely. Would not recommend steroids as this can exacerbate problem #1 . Patient may require increased oxygen at night as he is noncompliant with ALL therapy. TIME: 34 critical care time spent addressing patient's septic shock, acute DKA, NSTEMI, acute kidney injury, review of all data and collaboration with care team. Subjective Subjective Patient did okay overnight. Patient was not able to tolerate p.o. intake, so had to be initiated on a D5 half-normal drip. Patient is reporting a slightly increased appetite today. Patient remains on Levophed to maintain appropriate saturations. Patient subjectively feels improved compared to yesterday. Patient remains on anticoagulation with no clinical signs of bleeding. Objective Data Objective Data Vital Signs: Vital Signs Temp Pulse Resp BP Pulse Ox 36.8 C 95 15 102/56 L 100 06/12/21 04:00 06/12/21 05:00 06/12/21 05:00 06/12/21 05:00 06/12/21 05:00 Oxygen Flow Rate (L/min) 2 Oxygen Delivery Method Nasal Cannula Weight: 82.6 kg Body Mass Index (BMI) 39.2 Intake & Output: Intake and Output for Last 24 Hours 06/10/21 06/11/21 06/12/21 23:59 23:59 23:59 Intake Total 3137.53 / 3141.58 3440.53 / 3468.63 250.40 / 250.40 Output Total 1000 / 1000 350 / 350 Balance 3137.53 / 3141.58 2440.53 / 2468.63 -99.60 / -99.60 Lab / Micro Data Result Diagrams: 06/12/21 03:00 06/12/21 03:00 Labs: Laboratory Results - last 24 hr 06/11/21 08:13: POC Glucose 113 H 06/11/21 11:03: POC Glucose 43 L* 06/11/21 11:26: POC Glucose 91 06/11/21 12:05: APTT 114.0 H* 06/11/21 13:58: POC Glucose 76 06/11/21 15:29: POC Glucose 73 06/11/21 20:10: APTT 40.2 H 06/11/21 21:13: POC Glucose 101 06/12/21 03:00: APTT 77.7 H 06/12/21 03:00: WBC 17.3 H, RBC 3.57 L, Hgb 11.7 L, Hct 35.4 L, MCV 99.2 H, MCH 32.8 H, MCHC 33.1, RDW Std Deviation 54.0 H, RDW Coeff of Jac 14.8 H, Plt Count 173, MPV 9.0, Immature Gran % (Auto) 0.300, Neut % (Auto) 84.3 H, Lymph % (Auto) 7.2 L, [place] % (Auto) 7.3, Eos % (Auto) 0.5, Baso % (Auto) 0.4, Absolute Neuts (auto) 14.6 H, Absolute Lymphs (auto) 1.25, Nucleated RBC % 0 06/12/21 03:00: Sodium 136, Potassium 3.6, Chloride 99, Carbon Dioxide 29.0, Anion Gap 8, BUN 38 H, Creatinine 1.49 H, Estim Creat Clear Calc 49.89, Est GFR (MDRD) Af Amer 59 L, Est GFR (MDRD) Non-Af 49 L, BUN/Creatinine Ratio 25.5 H, Glucose 144 H, Calcium 6.4 L*, Total Bilirubin 1.10 H, AST 26, ALT 18, Alkaline Phosphatase 67, Total Protein 5.2 L, Albumin 2.1 L, Globulin 3.1, Albumin/Globulin Ratio 0.7 L Radiography Diagnostic Testing: Radiology Impression Chest X-Ray 06/11/21 03:45 IMPRESSION: 1. Interval placement of right internal jugular deep venous line with tip the catheter overlying the junction of the right atrium and superior vena cava with no pneumothorax. 2. Poor inspiration with some bibasilar atelectasis. Electronically Signed: Alonzo Fuentes MD at 7:16 EST Tel , Service support , Physical Exam Const alert and no apparent distress General Appearance: cooperative, disheveled and appears older than stated age HEENT normocephalic, head/scalp atraumatic and external ears normal Eyes PERRL and EOMs intact bilaterally Sclera: sclera abnormal Positive for bilateral Details: scleral injection Resp normal respiratory effort, no retractions, no use of accessory muscles and clear to auscultation bilaterally Cardio regular rate, regular rhythm, S1 normal heart sound, S2 normal heart sound, no murmurs, no rub and no gallops GI normal to inspection, nondistended, normoactive bowel sounds, soft to palpation, non-tender and non-distended Extremity Extremity Narrative: Below the knee amputation on the right and above the knee amputation on the left with prosthesis in place. Skin Skin Narrative: Large distal wound on the right lower extremity was visualized directly. Does show granulation tissue with no surrounding erythema or purulence. Stage II coccyx wound noted Neuro Sensorium / Orientation: awake and alert Psych affect normal Charges/Coding Procedures Hospitalists Procedures: 94752 Critial Care 1st Hr
[2021-06-12] MEDS: Insulin Lispro 100 UNIT/ML INSULN.PEN SC ×4 (08:05→21:20)
[2021-06-12 08:16] LABS: Bedside Glucose 166 mg/dL (70-110)
[2021-06-12] MEDS: Dext 5%-0.45% NS 1,000 ML 50 ML IV (09:52)
[2021-06-12] MEDS: Juven (unflavored) Packet 1 PACKET PO (09:52)
[2021-06-12 10:15] LABS: Partial Thromboplast Time 50.8 Seconds (24.1-36.2)
[2021-06-12] MEDS: Acetaminophen 500 MG Tablet 1000 MG PO (10:45)
[2021-06-12] MEDS: Pantoprazole Sodium 40 MG Tablet PO (10:47)
[2021-06-12] MEDS: Ammonium Lactate 225 gm Bottle 1 APPLIC TOPICAL (10:47)
[2021-06-12] MEDS: Clopidogrel Bisulfate 75 MG Tablet PO (10:47)
[2021-06-12] MEDS: Citalopram 20 MG Tablet PO (10:47)
[2021-06-12] MEDS: Aspirin 81 MG TAB.CHEW PO (10:47)
[2021-06-12] MEDS: Lidocaine 5% Patch 1 PATCH TOPICAL (10:48)
--- NOTE | 2021-06-12 11:53 | ECHOCS_ITS ---
Reason For Study: Abnormal EKG Procedure This was a 2D Doppler, Color Flow transthoracic echocardiogram. Contrast injection was performed. Exam performed portable in ICU/CCU. Left Ventricle Normal LV size. The estimated ejection fraction is 15 %. Severe segmental systolic dysfunction (see wall motion). Mid-Anterior : Akinetic. Anterior [place] : Akinetic. [place] : Akinetic. There is moderate to severe global hypokinesis of the left ventricle. Right Ventricle Normal RV size. ICD or pacer leads identified within the right ventricle. Normal systolic function. Atria The left atrium is mildly enlarged. Normal right atrium. Mitral Valve Bileaflet diffuse mitral valve thickening. Tricuspid Valve Normal tricuspid valve. Moderate (2+) tricuspid valve insufficiency. Moderate pulmonary hypertension. Pulmonary artery systolic pressure is 55 mmHg. Aortic Valve Trisinus/trileaflet aortic valve. Moderate focal aortic valve calcification. Pulmonic Valve Normal pulmonic valve. Great Vessels Normal aortic root. Pericardium/Pleural No pericardial effusion. Medication Diluted definity 2ml given slow IV push to enhance endocardial definition. MMode/2D Measurements & Calculations LVIDd: 5.4 cm IVSd: 1.1 cm LVOT diam: 2.0 cm LVIDs: 5.2 cm LVPWd: 0.87 cm FS: 4.2 % LVOT area: 3.1 cm2 Ao root diam: 3.0 cm LAV(MOD-bp): 77.4 ml Aortic Valve Planimetry: 0.85 cm2 LA dimension: 4.8 cm LAV(MOD-bp) Indexed: 45.2 ml/m2 LAV(MOD-sp2): 73.6 ml LAV(MOD-sp4): 79.1 ml LA A4 area: 24.2 cm2 RA A4 area: 17.3 cm2 Doppler Measurements & Calculations Ao V2 max: 162.8 cm/sec LV V1 max: 72.3 cm/sec PA V2 max: 73.2 cm/sec Ao max P.6 mmHg LV V1 max P.1 mmHg JANES(V,D): 1.4 cm2 TR max asif: 354.9 cm/sec TR max P.4 mmHg ECHO/Echo Complete W/ Contrast Interpretation Summary Normal LV size. The estimated ejection fraction is 15 %. The left atrium is mildly enlarged. Severe segmental systolic dysfunction (see wall motion). Pulmonary artery systolic pressure is 55 mmHg. Compared to previous study, the left ventricular systolic function is the same. . Contrast injection was performed. Ordering Physician: Gilmer Saldivar Referring Physician: Jcarlos Glasgow Performed By: Kristofer Jimenez RCS
[2021-06-12 12:26] LABS: Bedside Glucose 251 mg/dL (70-110)
[2021-06-12 13:46] LABS: Magnesium 0.8 mg/dL (1.6-2.6); Phosphorus 2.7 mg/dL (2.5-4.9)
--- NOTE | 2021-06-12 14:07 | PN.CARD_ITS ---
Subjective Subjective Patient seen and evaluated today, at bedside at time of evaluation No symptoms reported Objective Data Vital Signs: Vital Signs Temp Pulse Resp BP Pulse Ox 98.5 F 111 H 18 106/60 100 06/12/21 12:00 06/12/21 13:00 06/12/21 13:00 06/12/21 13:00 06/12/21 13:00 Oxygen Flow Rate (L/min) 2 Oxygen Delivery Method Nasal Cannula Weight: 182 lb 1.629 oz Body Mass Index (BMI) 39.2 Intake & Output: Intake and Output for Last 24 Hours 06/10/21 06/11/21 06/12/21 23:59 23:59 23:59 Intake Total 3137.53 / 3141.58 3440.53 / 3468.63 1819.24 / 1819.24 Output Total 1000 / 1000 800 / 800 Balance 3137.53 / 3141.58 2440.53 / 2468.63 1019.24 / 1019.24 Lab / Micro Data Result Diagrams: 06/12/21 03:00 06/12/21 03:00 Labs: Laboratory Results - last 24 hr 06/11/21 15:29: POC Glucose 73 06/11/21 20:10: APTT 40.2 H 06/11/21 21:13: POC Glucose 101 06/12/21 03:00: APTT 77.7 H 06/12/21 03:00: WBC 17.3 H, RBC 3.57 L, Hgb 11.7 L, Hct 35.4 L, MCV 99.2 H, MCH 32.8 H, MCHC 33.1, RDW Std Deviation 54.0 H, RDW Coeff of Jac 14.8 H, Plt Count 173, MPV 9.0, Immature Gran % (Auto) 0.300, Neut % (Auto) 84.3 H, Lymph % (Auto) 7.2 L, [place] % (Auto) 7.3, Eos % (Auto) 0.5, Baso % (Auto) 0.4, Absolute Neuts (auto) 14.6 H, Absolute Lymphs (auto) 1.25, Nucleated RBC % 0 06/12/21 03:00: Sodium 136, Potassium 3.6, Chloride 99, Carbon Dioxide 29.0, Anion Gap 8, BUN 38 H, Creatinine 1.49 H, Estim Creat Clear Calc 49.89, Est GFR (MDRD) Af Amer 59 L, Est GFR (MDRD) Non-Af 49 L, BUN/Creatinine Ratio 25.5 H, Glucose 144 H, Calcium 6.4 L*, Total Bilirubin 1.10 H, AST 26, ALT 18, Alkaline Phosphatase 67, Total Protein 5.2 L, Albumin 2.1 L, Globulin 3.1, Albumin/Globulin Ratio 0.7 L 06/12/21 03:00: Phosphorus 2.7, Magnesium 0.8 L* 06/12/21 07:49: POC Glucose 166 H 06/12/21 08:45: APTT 50.8 H 06/12/21 12:08: POC Glucose 251 H Micro: Microbiology 06/11/21 05:30 Urine Catheter - Catheter Urine Culture - Preliminary Culture exhibits no growth. Cardiology Labs/Tests 06/11/21 20:10: APTT 40.2 H 06/12/21 03:00: APTT 77.7 H 06/12/21 03:00: WBC 17.3 H, RBC 3.57 L, Hgb 11.7 L, Hct 35.4 L, MCV 99.2 H, MCH 32.8 H, MCHC 33.1, Plt Count 173, MPV 9.0, Immature Gran % (Auto) 0.300, Neut % (Auto) 84.3 H, Lymph % (Auto) 7.2 L, [place] % (Auto) 7.3, Eos % (Auto) 0.5, Baso % (Auto) 0.4, Absolute Neuts (auto) 14.6 H, Nucleated RBC % 0 06/12/21 03:00: Sodium 136, Potassium 3.6, Chloride 99, Carbon Dioxide 29.0, Anion Gap 8, BUN 38 H, Creatinine 1.49 H, Est GFR (MDRD) Af Amer 59 L, Est GFR (MDRD) Non-Af 49 L, BUN/Creatinine Ratio 25.5 H, Glucose 144 H, Calcium 6.4 L*, Total Bilirubin 1.10 H 06/12/21 03:00: Phosphorus 2.7, Magnesium 0.8 L* 06/12/21 08:45: APTT 50.8 H Rhythm: EKG: ECHO: Stress Test: Cardiac Cath: PCI: CT Surgery: Holter monitor: EPS: PPM: CXR: Chest CT Scan: Physical Exam Narrative Alert orientated x3 no active chest pain, no apparent distress Has ICD device on the left infraclavicular region with a sternotomy scar Cardiovascular examination S1-S2 regular, no murmur no pericardial rub Chest exam; clear to auscultation bilateral Examination of lower extremity; below the knee amputation right-sided And [id number] amputation on the left with prosthesis in place Assessment & Plan Assessment/Plan (1) Chronic obstructive pulmonary disease: (2) Coronary artery disease: (3) Obstructive sleep apnea: (4) Peripheral arterial occlusive disease: (5) History of coronary artery stent placement: (6) Diabetes mellitus type 2 with atherosclerosis of arteries of extremities: (7) Peripheral vascular disease due to secondary diabetes: (8) Non-ST elevation (NSTEMI) myocardial infarction: PLAN: Patient seen and evaluated today, at bedside at time of evaluation and I discussed with the nursing staff He has no symptoms of chest pain. Has multiple medical comorbidities with COPD, obstructive sleep apnea, septic shock, CAD with prior coronary artery bypass surgery ICD biventricular pacer and history of PCI and stent of proximal diagonal branch in 2019 using bare-metal stent Still on Levophed, inotropic support due to hypotension. Cardiovascular assessment recommendation; This patient has severe ischemic cardiomyopathy, CAD with CABG, EF around 20% Has ICD/biventricular pacer Cardiac care plan and recommendation discussed with the nursing staff 1. Repeat echocardiogram in a.m. 2. ICD/biventricular pacer interrogation 3. We will continue medical treatment and primary assistant attorney general Dr. Timmons will resume cardiac care.
[2021-06-12] MEDS: Magnesium Sulfate 4gm/100mL 4 GM/100 ML IV.SOLN. IV (14:36)
--- NOTE | 2021-06-12 14:36 | PN.HOSP_ITS ---
Subjective Subjective concerned about his pain medications. Says percocet works but not oxycodone. Objective Data Objective Data Vital Signs: Vital Signs Temp Pulse Resp BP Pulse Ox 36.9 C 109 H 23 H 101/64 100 06/12/21 12:00 06/12/21 14:00 06/12/21 14:00 06/12/21 14:00 06/12/21 14:00 Oxygen Flow Rate (L/min) 2 Oxygen Delivery Method Nasal Cannula Weight: 82.6 kg Body Mass Index (BMI) 39.2 Intake & Output: Intake and Output for Last 24 Hours 06/10/21 06/11/21 06/12/21 23:59 23:59 23:59 Intake Total 3137.53 / 3141.58 3440.53 / 3468.63 1847.34 / 1847.34 Output Total 1000 / 1000 800 / 800 Balance 3137.53 / 3141.58 2440.53 / 2468.63 1047.34 / 1047.34 Lab / Micro Data Result Diagrams: 06/12/21 03:00 06/12/21 03:00 Labs: Laboratory Results - last 24 hr 06/11/21 15:29: POC Glucose 73 06/11/21 20:10: APTT 40.2 H 06/11/21 21:13: POC Glucose 101 06/12/21 03:00: APTT 77.7 H 06/12/21 03:00: WBC 17.3 H, RBC 3.57 L, Hgb 11.7 L, Hct 35.4 L, MCV 99.2 H, MCH 32.8 H, MCHC 33.1, RDW Std Deviation 54.0 H, RDW Coeff of Jac 14.8 H, Plt Count 173, MPV 9.0, Immature Gran % (Auto) 0.300, Neut % (Auto) 84.3 H, Lymph % (Auto) 7.2 L, [place] % (Auto) 7.3, Eos % (Auto) 0.5, Baso % (Auto) 0.4, Absolute Neuts (auto) 14.6 H, Absolute Lymphs (auto) 1.25, Nucleated RBC % 0 06/12/21 03:00: Sodium 136, Potassium 3.6, Chloride 99, Carbon Dioxide 29.0, Anion Gap 8, BUN 38 H, Creatinine 1.49 H, Estim Creat Clear Calc 49.89, Est GFR (MDRD) Af Amer 59 L, Est GFR (MDRD) Non-Af 49 L, BUN/Creatinine Ratio 25.5 H, Glucose 144 H, Calcium 6.4 L*, Total Bilirubin 1.10 H, AST 26, ALT 18, Alkaline Phosphatase 67, Total Protein 5.2 L, Albumin 2.1 L, Globulin 3.1, Albumin/Globulin Ratio 0.7 L 06/12/21 03:00: Phosphorus 2.7, Magnesium 0.8 L* 06/12/21 07:49: POC Glucose 166 H 06/12/21 08:45: APTT 50.8 H 06/12/21 12:08: POC Glucose 251 H Micro: Microbiology 06/11/21 05:30 Urine Catheter - Catheter Urine Culture - Preliminary Culture exhibits no growth. Physical Exam Const alert and no apparent distress HEENT head/scalp atraumatic Head and Scalp: normocephalic Neck no lymphadenopathy Resp normal respiratory effort, no retractions, no use of accessory muscles and clear to auscultation bilaterally Cardio regular rate, regular rhythm, S1 normal heart sound and S2 normal heart sound GI normal to inspection, nondistended, normoactive bowel sounds, soft to palpation, non-tender and non-distended Extremity Extremity Narrative: bilateral AKAs, dressing on distal RLE--did not remove and sock on distal LLE--did not remove. Assessment & Plan Assessment/Plan (1) Diabetic ketoacidosis: QUALIFIERS: Diabetes mellitus type: type 1 Diabetes mellitus complication detail: without coma Qualified Code(s): E10.10 - Type 1 diabetes mellitus with ketoacidosis without coma (2) Elevated troponin: (3) Acute kidney injury: PLAN: 1. DKA resolved Patient type I diabetic a1c 6.5 At baseline, sounds like that he is a poorly controlled and then he may not have taken his insulin last night which may have precipitated this event. Either pt is laissez-faire but taking his insulin or he may have mild cognitive impairment, or component of both combining his diabetes care as he appears to be well controlled at this time. Transitioned to Basal and SSI 2. Septic shock unclear source on christina and vanc follow cultures continued on norepinephrine 3. Acute kidney injury improving May be ATN continue hold diuretics Creatinine is 2.03 and baseline creatinine is 0.82 IV fluids but caution with the patient's history of heart failure 3. NSTEMI May be type II event as patient's troponins have been chronically elevated in the past. Cardiology consult. heparin gtt Patient did have stress test back in June 2020 and that was negative. 4. Heart failure with reduced ejection fraction EF is 20% Hold diuretics as well as Entresto given the WEST 5. Right lower extremity wound On his stump has been poorly healing No clinical evidence or appearance of infection at this time Continue with doxycycline that he is taken for that 6. VTE prophylaxis: Low kimberly weight heparin 7. Advanced care planning: Discussed with patient. Patient wishes to be full CODE STATUS. Charges/Coding Visit Charges Inpatient E&M: 40367 Subs Hosp L2
--- NOTE | 2021-06-12 15:29 | PCM.RX.CS ---
Consult Pharmacy has been consulted to manage selected antiobiotic: Vancomycin Type of Consult: Follow-up Labs: Sodium 136 mmol/L (136-145) 06/12/21 03:00 Potassium 3.6 mmol/L (3.5-5.1) 06/12/21 03:00 Chloride 99 mmol/L (98-107) 06/12/21 03:00 Carbon Dioxide 29.0 mmol/L (21.0-32.0) 06/12/21 03:00 Anion Gap 8 (5-15) 06/12/21 03:00 BUN 38 mg/dL (7-18) H 06/12/21 03:00 Creatinine 1.49 mg/dL (0.70-1.30) H 06/12/21 03:00 Est GFR (MDRD) Af Amer 59 mL/min (>60) L 06/12/21 03:00 Est GFR (MDRD) Non-Af 49 mL/min (>60) L 06/12/21 03:00 BUN/Creatinine Ratio 25.5 RATIO (10-20) H 06/12/21 03:00 Glucose 144 mg/dL (74-106) H 06/12/21 03:00 Microbiology: Microbiology 06/11/21 05:30 Urine Catheter - Catheter Urine Culture - Preliminary Culture exhibits no growth. Goal Trough: 15-20 mcg/mL Pharmacy Plan for Drug Dosing: DAILY ASSESSMENT Current Vancomcyin Dose: 2G IV X1 06/11/21 @0942 Number of Doses Received: 1 Current Renal Function: 1.49 / CRCL 49 Renal Function Trend: SIGNIFICANT IMPROVEMENT Lab/Micro: Any Change in Vanc Plan: Due to improved renal function, will start patient on 500mg IV q12h per protocol this afternoon Pending Level: 06/13/21 @1530, prior to 4th total dose of vancomycin per protocol. Pharmacy Service will continue to monitor and adjust dosing as required.
[2021-06-12 16:46] LABS: Bedside Glucose 217 mg/dL (70-110)
[2021-06-12 17:06] LABS: Partial Thromboplast Time 63.1 Seconds (24.1-36.2)
[2021-06-12] MEDS: Vancomycin IV 500 MG/100 ML BAG 100 MG IV (17:27)
[2021-06-12] MEDS: Norepinephrine 8 mg/250 mL 0.9% NS 28.1 MG CONT INF (19:29)
[2021-06-12] MEDS: Pravastatin 40 MG Tablet PO (21:19)
[2021-06-12] MEDS: tiZANidine HCl 2 MG Tablet 4 MG PO (21:21)
[2021-06-12 22:41] LABS: Bedside Glucose 189 mg/dL (70-110)
[2021-06-12 23:32] LABS: Partial Thromboplast Time 52.9 Seconds (24.1-36.2)
[2021-06-13] VITALS (42 sets, daily range): BP systolic 77–112; BP diastolic 44–86; PULSE 85–118; RESP 11–27; TEMP 36.3–36.9; O2SAT 92–100
[2021-06-13] MEDS: Norepinephrine 8 mg/250 mL 0.9% NS 37.5 MG CONT INF (03:26)
[2021-06-13] MEDS: Vancomycin IV 500 MG/100 ML BAG 100 MG IV ×2 (04:24→16:07)
[2021-06-13] MEDS: Levothyroxine 100 MCG Tablet 200 MCG PO (05:04)
[2021-06-13 05:25] LABS: Absolute Lymphocyte Count 1.05 X10^3/uL (0.83-4.51); Absolute Neutrophil Count 9.5 X10^3/uL (2.0-7.7); Basophil# 0.08 X10^3/uL; Basophil% 0.7 % (0-1); Eosinophil# 0.16 X10^3/uL; Eosinophils% 1.4 % (0-5); Hematocrit 33.3 % (40-54); Hemoglobin 10.8 g/dL (13.0-16.5); Lymphocyte # 1.05 X10^3/ul (0.83-4.51); Lymphocyte % 8.9 % (19-41); Mean Corp Hgb Conc 32.4 g/dL (32-36); Mean Corpuscular Hgb 32.5 pg (27.0-32.0); Mean Corpuscular Volume 100.3 fL (80-94); Mean Platelet Vol. 9.4 fl (6.2-12.0); Monocyte# 0.89 X10^3/uL; Monocyte% 7.6 % (0-10); NRBC Flagged by Analyzer 0 % (0-5); Neutrophil # 9.49 X10^3/uL (2.7-7.7); Neutrophil % 80.6 % (47-70); Platelet Count 154 K/mm3 (150-450); RBC Distribution Width CV 14.6 % (11.6-14.6); RBC Distribution Width SD 53.5 fl (35.1-43.9); Red Blood Count 3.32 M/mm3 (4.6-6.2); White Blood Count 11.8 K/mm3 (4.4-11.0)
[2021-06-13 05:30] LABS: Partial Thromboplast Time 62.8 Seconds (24.1-36.2)
[2021-06-13 05:37] LABS: Vancomycin, Trough Level 23.3 ug/mL (5.0-15.0)
[2021-06-13 05:46] LABS: ALB/GLOB Ratio 0.7 RATIO (0.9-2.4); AST(SGOT) 25 U/L (15-37); Alanine Aminotransfer ALT/SGPT 17 U/L (16-61); Albumin, Serum 2.1 g/dL (3.2-5.0); Alkaline Phosphatase 71 U/L (45-117); Anion Gap 5 (5-15); BUN 26 mg/dL (7-18); BUN/Creat Ratio 29.5 RATIO (10-20); Calcium,Total 6.7 mg/dL (8.5-10.1); Chloride 101 mmol/L (98-107); Creatinine, Serum 0.88 mg/dL (0.70-1.30); EST Glomerular Filtration Rate 90 mL/min (>60); Est Glom Filt Rate - Afr Amer 109 mL/min (>60); Estimated Creatinine Clearance 86.04 ml/min; Glucose 92 mg/dL (74-106); Magnesium 1.8 mg/dL (1.6-2.6); Potassium 3.5 mmol/L (3.5-5.1); Protein, Total 5.1 g/dL (6.4-8.2); Sodium Level 138 mmol/L (136-145)
--- NOTE | 2021-06-13 07:26 | PN.CC_ITS ---
Assessment & Plan Assessment/Plan (1) Diabetic ketoacidosis: QUALIFIERS: Diabetes mellitus complication detail: without coma Diabetes mellitus type: type 1 Qualified Code(s): E10.10 - Type 1 diabetes mellitus with ketoacidosis without coma (2) Septic shock: (3) Chronic obstructive pulmonary disease: (4) Obstructive sleep apnea: (5) Peripheral arterial occlusive disease: (6) ALL treated with BiPAP: (7) Diabetes mellitus type 2 with atherosclerosis of arteries of extremities: PLAN: RECOMMENDATIONS: 1. Continue Levophed to maintain a mean arterial pressure at or above 65 mmHg. 2. Echocardiogram and ICD interrogation. 3. Wound nurse evaluation. 4. Continue empiric antimicrobials. 5. Continue heparin infusion. 6. Start midodrine 3 times daily. IMPRESSIONS: 1. Undifferentiated shock The patient initially presented to the hospital on June 10 with progressive dyspnea and hyperglycemia. His hospital course has been complicated by DKA and an NSTEMI. Although the patient was initially being treated under the presumption of septic shock, no definitive source of infection has yet to be identified. The patient still has a significant vasopressor requirement. Therefore, it is certainly plausible that the patient's persistent hypotension could be cardiogenic in etiology. Cardiology is currently following to assist with medical management. Anticipate echocardiogram and ICD interrogation today. In the interim, the patient will be continued on Levophed to maintain a mean arterial pressure at or above 65 mmHg. Empiric antimicrobials will also be continued while awaiting finalized infectious work-up. Scheduled midodrine 3 times daily will also be initiated. 2. Acute DKA secondary to problem #1 Resolved. Continue Lantus and sliding scale insulin coverage. 3. Non-ST elevation NE secondary to problems 1 and 2 in the setting of peripheral vascular disease/systolic CHF Continue heparin infusion for now. Cardiology is currently following to assist with medical management. Await results of echocardiogram and ICD interrogation. 4. Acute kidney injury secondary to problem #1 Likely secondary to ischemic ATN in the setting of #1. Creatinine has improved with volume expansion and stabilization of hemodynamics with vasopressor support. Continue to monitor urine output. No current indication for renal replacement therapy. 5. Stage II decubitus ulcer/bilateral BKA/history of MDRO/COPD/ALL with noncompliance Complicates care, management, recovery and prognosis. Continue supportive measures as noted above. TIME: 34 minutes of critical care time, independent of procedures, was spent addressing the patient's undifferentiated shock, diabetic ketoacidosis, NSTEMI, acute kidney injury, review of all data and collaboration with care team. Subjective Subjective The patient was seen and examined at the bedside this morning. Events from the last 24 hours have been reviewed. The patient is currently hemodynamically stable on Levophed at 20 mcg/min. He is currently maintaining appropriate oxygen saturations on 2 L/min. The patient remains on a continuous heparin inf usion. He is currently documented to be overall net +7.3 L for the hospitalization. The patient remains on broad-spectrum antimicrobials. Objective Data Objective Data The patient's most recent lab work, culture data and imaging studies have all been personally reviewed. Surface echocardiogram dated July 2020 demonst rated an ejection fraction of 20%. Wound culture from May 09 was positive for MRSA. Blood and urine cultures are pending. Vital Signs: Vital Signs Temp Pulse Resp BP Pulse Ox 97.8 F 97 20 H 106/86 H 96 06/13/21 04:00 06/13/21 07:00 06/13/21 07:00 06/13/21 07:00 06/13/21 07:00 Oxygen Flow Rate (L/min) 2 Oxygen Delivery Method Nasal Cannula Weight: 83.642 kg Body Mass Index (BMI) 39.2 Intake & Output: Intake and Output for Last 24 Hours 06/11/21 06/12/21 06/13/21 23:59 23:59 23:59 Intake Total 3440.53 / 3468.63 3044.14 / 3072.24 381.21 / 381.21 Output Total 1000 / 1000 1150 / 1400 550 / 550 Balance 2440.53 / 2468.63 1894.14 / 1672.24 -168.79 / -168.79 Lab / Micro Data Result Diagrams: 06/13/21 05:00 06/13/21 05:00 Labs: Laboratory Results - last 24 hr 06/11/21 05:30: Urine Color Cancelled, Urine Clarity Cancelled, Urine pH Cancelled, Ur Specific [place] Cancelled, U Specif Grav (Refrac) Cancelled, Urine Protein Cancelled, Urine Glucose (UA) Cancelled, Urine Ketones Cancelled, Urine Occult Blood Cancelled, Urine Nitrite Cancelled, Urine Bilirubin Cancelled, Urine Urobilinogen Cancelled, Ur Leukocyte Esterase Cancelled, Urine RBC Cancelled, Urine WBC Cancelled, Ur Squamous Epith Cells Cancelled, Ur Transition Epith Cell Cancelled, Ur Renal Epithelial Cell Cancelled, Calcium Oxalate Crystal Cancelled, Uric Acid Crystals Cancelled, Triple Phos Crystals Cancelled, Other Crystals Cancelled, Amorphous Sediment Cancelled, Urine Bacteria Cancelled, Hyaline Casts Cancelled, Fine Granular Casts Cancelled, Coar se Granular Casts Cancelled, Waxy Casts Cancelled, RBC Casts Cancelled, WBC Casts Cancelled, Urine Mucus Cancelled, Urine Trichomonas Cancelled, Urine Yeast Cancelled 06/12/21 03:00: Phosphorus 2.7, Magnesium 0.8 L* 06/12/21 07:49: POC Glucose 166 H 06/12/21 08:45: APTT 50.8 H 06/12/21 12:08: POC Glucose 251 H 06/12/21 16:34: POC Glucose 217 H 06/12/21 16:40: APTT 63.1 H 06/12/21 21:18: POC Glucose 189 H 06/12/21 23:10: APTT 52.9 H 06/13/21 05:00: Vancomycin Trough 23.3 H 06/13/21 05:00: WBC 11.8 H, RBC 3.32 L, Hgb 10.8 L, Hct 33.3 L, MCV 100.3 H, MCH 32.5 H, MCHC 32.4, RDW Std Deviation 53.5 H, RDW Coeff of Jac 14.6, Plt Count 154, MPV 9.4, Immature Gran % (Auto) 0.800, Neut % (Auto) 80.6 H, Lymph % (Auto) 8.9 L, [place] % (Auto) 7.6, Eos % (Auto) 1.4, Baso % (Auto) 0.7, Absolute Neuts (auto) 9.5 H, Absolute Lymphs (auto) 1.05, Nucleated RBC % 0 06/13/21 05:00: Sodium 138, Potassium 3.5, Chloride 101, Carbon Dioxide 32.0, Anion Gap 5, BUN 26 H, Creatinine 0.88, Estim Creat Clear Calc 86.04, Est GFR (MDRD) Af Amer 109, Est GFR (MDRD) Non-Af 90, BUN/Creatinine Ratio 29.5 H, Glucose 92, Calcium 6.7 L, Magnesium 1.8, Total Bilirubin 1.50 H, AST 25, ALT 17, Alkaline Phosphatase 71, Total Protein 5.1 L, Albumin 2.1 L, Globulin 3.0, Albumin/Globulin Ratio 0.7 L 06/13/21 05:00: APTT 62.8 H Micro: Microbiology 06/11/21 05:30 Urine Catheter - Catheter Urine Culture - Preliminary Culture exhibits no growth. Physical Exam Const alert and no apparent distress General Appearance: cooperative Nutritional Appearance: obese HEENT normocephalic and head/scalp atraumatic Teeth and Gingiva: poor dentition Eyes PERRL and EOMs intact bilaterally Neck supple General: trachea midline and CVC in place Chest inspection of chest normal Resp Auscultation: diminished lung sounds; Negative for rales, rhonchi or wheezes Cardio S1 normal heart sound and S2 normal heart sound Rate: tachycardic GI normal to inspection, nondistended, normoactive bowel sounds Extremity General Extremity: amputation Skin Wound Narrative: Stage II coccyx wound Neuro CN's II-XII intact bilaterally and no focal motor deficits Psych cooperative and affect normal Charges/Coding Procedures Hospitalists Procedures: [id number] Critial Care 1st Hr
--- NOTE | 2021-06-13 09:17 | PCM.PN.CARD ---
Subjective Subjective The patient is awake and alert. He denies ongoing chest discomfort or worsening shortness of breath or dyspnea at this time. Objective Data Vital Signs: Vital Signs Temp Pulse Resp BP Pulse Ox 98.4 F 105 H 27 H 108/65 98 06/13/21 08:00 06/13/21 08:00 06/13/21 08:00 06/13/21 08:00 06/13/21 08:00 Oxygen Flow Rate (L/min) 2 Oxygen Delivery Method Room Air Weight: 184 lb 6.4 oz Body Mass Index (BMI) 39.2 Intake & Output: Intake and Output for Last 24 Hours 06/11/21 06/12/21 06/13/21 23:59 23:59 23:59 Intake Total 3440.53 / 3468.63 3044.14 / 3072.24 418.71 / 418.71 Output Total 1000 / 1000 1150 / 1400 550 / 550 Balance 2440.53 / 2468.63 1894.14 / 1672.24 -131.29 / -131.29 Lab / Micro Data Result Diagrams: 06/13/21 05:00 06/13/21 05:00 Labs: Laboratory Results - last 24 hr 06/11/21 05:30: Urine Color Cancelled, Urine Clarity Cancelled, Urine pH Cancelled, Ur Specific [place] Cancelled, U Specif Grav (Refrac) Cancelled, Urine Protein Cancelled, Urine Glucose (UA) Cancelled, Urine Ketones Cancelled, Urine Occult Blood Cancelled, Urine Nitrite Cancelled, Urine Bilirubin Cancelled, Urine Urobilinogen Cancelled, Ur Leukocyte Esterase Cancelled, Urine RBC Cancelled, Urine WBC Cancelled, Ur Squamous Epith Cells Cancelled, Ur Transition Epith Cell Cancelled, Ur Renal Epithelial Cell Cancelled, Calcium Oxalate Crystal Cancelled, Uric Acid Crystals Cancelled, Triple Phos Crystals Cancelled, Other Crystals Cancelled, Amorphous Sediment Cancelled, Urine Bacteria Cancelled, Hyaline Casts Cancelled, Fine Granular Casts Cancelled, Coarse Granular Casts Cancelled, Waxy Casts Cancelled, RBC Casts Cancelled, WBC Casts Cancelled, Urine Mucus Cancelled, Urine Trichomonas Cancelled, Urine Yeast Cancelled 06/12/21 03:00: Phosphorus 2.7, Magnesium 0.8 L* 06/12/21 08:45: APTT 50.8 H 06/12/21 12:08: POC Glucose 251 H 06/12/21 16:34: POC Glucose 217 H 06/12/21 16:40: APTT 63.1 H 06/12/21 21:18: POC Glucose 189 H 06/12/21 23:10: APTT 52.9 H 06/13/21 05:00: Vancomycin Trough 23.3 H 06/13/21 05:00: WBC 11.8 H, RBC 3.32 L, Hgb 10.8 L, Hct 33.3 L, MCV 100.3 H, MCH 32.5 H, MCHC 32.4, RDW Std Deviation 53.5 H, RDW Coeff of Jac 14.6, Plt Count 154, MPV 9.4, Immature Gran % (Auto) 0.800, Neut % (Auto) 80.6 H, Lymph % (Auto) 8.9 L, [place] % (Auto) 7.6, Eos % (Auto) 1.4, Baso % (Auto) 0.7, Absolute Neuts (auto) 9.5 H, Absolute Lymphs (auto) 1.05, Nucleated RBC % 0 06/13/21 05:00: Sodium 138, Potassium 3.5, Chloride 101, Carbon Dioxide 32.0, Anion Gap 5, BUN 26 H, Creatinine 0.88, Estim Creat Clear Calc 86.04, Est GFR (MDRD) Af Amer 109, Est GFR (MDRD) Non-Af 90, BUN/Creatinine Ratio 29.5 H, Glucose 92, Calcium 6.7 L, Magnesium 1.8, Total Bilirubin 1.50 H, AST 25, ALT 17, Alkaline Phosphatase 71, Total Protein 5.1 L, Albumin 2.1 L, Globulin 3.0, Albumin/Globulin Ratio 0.7 L 06/13/21 05:00: APTT 62.8 H Micro: Microbiology 06/11/21 05:30 Urine Catheter - Catheter Urine Culture - Final Culture exhibits no growth. Cardiology Labs/Tests 06/11/21 05:30: Urine Color Cancelled, Urine Clarity Cancelled, Urine pH Cancelled, Ur Specific [place] Cancelled, U Specif Grav (Refrac) Cancelled, Urine Protein Cancelled, Urine Glucose (UA) Cancelled, Urine Ketones Cancelled, Urine Occult Blood Cancelled, Urine Nitrite Cancelled, Urine Bilirubin Cancelled, Urine Urobilinogen Cancelled, Ur Leukocyte Esterase Cancelled, Urine RBC Cancelled, Urine WBC Cancelled 06/12/21 03:00: Phosphorus 2.7, Magnesium 0.8 L* 06/12/21 08:45: APTT 50.8 H 06/12/21 16:40: APTT 63.1 H 06/12/21 23:10: APTT 52.9 H 06/13/21 05:00: WBC 11.8 H, RBC 3.32 L, Hgb 10.8 L, Hct 33.3 L, MCV 100.3 H, MCH 32.5 H, MCHC 32.4, Plt Count 154, MPV 9.4, Immature Gran % (Auto) 0.800, Neut % (Auto) 80.6 H, Lymph % (Auto) 8.9 L, [place] % (Auto) 7.6, Eos % (Auto) 1.4, Baso % (Auto) 0.7, Absolute Neuts (auto) 9.5 H, Nucleated RBC % 0 06/13/21 05:00: Sodium 138, Potassium 3.5, Chloride 101, Carbon Dioxide 32.0, Anion Gap 5, BUN 26 H, Creatinine 0.88, Est GFR (MDRD) Af Amer 109, Est GFR (MDRD) Non-Af 90, BUN/Creatinine Ratio 29.5 H, Glucose 92, Calcium 6.7 L, Magnesium 1.8, Total Bilirubin 1.50 H 06/13/21 05:00: APTT 62.8 H Rhythm: Sinus rhythm/electronic ventricular paced rhythm/possible nonsustained wide-complex tachycardia-VT ECHO: Pending Stress Test: 06-14-2020 Stress Test Report Date: 06/14/2020 Procedure: Pharmacologic stress nuclear imaging study Indications: Chest pain Consent: Per the patient Procedure: The patient underwent pharmacologic (Regadenoson) evaluation with a peak heart rate of 109 beats per minute (74%predicted maximal heart rate) and a peak blood pressure of 118/58 mmHg. The baseline ECG demonstrated sinus rhythm with multiple PVCs, prior anterior NM, nonspecific intraventricular conduction delay. EKG during lexiscan infusion revealed no significant ischemic changes. EKG post infusion revealed no significant ischemic changes [There were no significant cardiac dysrhythmias pretest, during pharmacologic infusion, or recovery]. [There was no complaint of chest discomfort during pharmacologic infusion or recovery]. The examination was discontinued secondary to completion of protocol. Impression: 1. Lexiscan stress test test is negative for Lexiscan infusion induced EKG changes of ischemia. 2. Lexiscan stress test test is negative for Lexiscan infusion induced chest pain. 3. Results of the nuclear portion of the test is as below Myocardial perfusion imaging study: Technique: The patient was injected with 11.9 millicuries of technetium 99m Cardiolite and subsequently rest SPECT Cardiolite nuclear imaging was obtained in the horizontal long, vertical long, and short axis views. The patient underwent pharmacologic (Regadenoson) evaluation. Please see above for details. The patient was injected with 33.7 millicuries of technetium 99m Cardiolite and subsequently stress SPECT Cardiolite nuclear imaging was obtained in the horizontal long, vertical long, and short axis views. A gated Cardiolite study at peak stress was obtained. Interpretation: Rest and stress SPECT Cardiolite nuclear imaging status post realignment, normalization, and attenuation correction demonstrate some radioisotope uptake in the apex, moderately decreased radioisotope uptake in the lateral wall in both the rest and stress images after attenuation correction. These findings are suggestive of prior NM involving this territory. There is also decreased radioisotope uptake in the inferior wall prior to attenuation correction that improves after attenuation correction suggestive of diaphragmatic attenuation artifact. Gated images reveal severe global hypokinesis. The reported LVEF is 19%. Impression: 1. There is no evidence of significant ischemia. There is evidence of prior apical and lateral myocardial infarction. 2. Estimated ejection fraction is 19%. Physical Exam Const alert and oriented x3 Orientation / Consciousness: awake HEENT normocephalic, head/scalp atraumatic and hearing grossly normal bilaterally Eyes PERRL, EOMs intact bilaterally and conjunctivae normal Neck full ROM, supple and no JVD Resp clear to auscultation bilaterally Cardio regular rate, regular rhythm, S1 normal heart sound and S2 normal heart sound GI normal to inspection, nondistended, normoactive bowel sounds Extremity Extremity Narrative: Bilateral BKA Psych mental status grossly normal Assessment & Plan Assessment/Plan (1) Non-ST elevation (NSTEMI) myocardial infarction: PLAN: The patient has abnormal cardiac enzymes. It is unclear at this time whether this represents a true type I event versus a type II event secondary to supply demand mismatch from his noncardiovascular conditions/comorbidities superimposed upon his underlying cardiovascular state-as suspected by Dr. Saldivar. At the moment he will continue medical therapy as deemed appropriate. His medications may need to be adjusted as he remains hypotensive and he requires IV vasopressors to support his medications based upon concerns of a possible sepsis syndrome as well. He is pending reevaluation of his left ventricular wall motion systolic function with a transthoracic echocardiogram. (2) Coronary artery disease: PLAN: He does have a history of CAD. He has undergone both PCI and CABG. At the present time he is continuing supportive medical therapy for his underlying cardiovascular noncardiovascular condition. (3) History of coronary artery stent placement: PLAN: It appears his most recent PCI was performed at [facility] in [place], [place] on 03-27-2019 at which time he received a bare-metal stent to the first diagonal branch. Depending upon his clinical course and findings he may or may not eventually require repeat evaluation in the cardiac catheterization laboratory. (4) S/P CABG (coronary artery bypass graft): PLAN: He does have a history of CABG. Based upon his most recent diagnostic cardiac catheterization/PCI procedure of 03-27-2019, it appears based upon the conclusion, that he had a MAYS to the LAD which was patent and an SVG to the PDA which was patent. (5) Ischemic cardiomyopathy: PLAN: He has a history of an ischemic mediated cardiomyopathy with severely diminished LV systolic function. His left ventricular wall motion systolic function will be reassessed with a transthoracic echocardiogram to help guide of evaluation and care. (6) Biventricular implantable cardioverter-defibrillator (ICD) in situ: PLAN: He has a history of an underlying biventricular ICD. A request has previously been made to have this reevaluated to a assist with analysis of his cardiac rhythm and ongoing evaluation and care. (7) Hyperlipidemia: PLAN: He should continue risk factor valuation care as deemed appropriate. (8) Septic shock: PLAN: The patient has also been diagnosed with a sepsis syndrome. This could also impact his cardiac enzyme levels. He has been requiring medical therapy/support with IV vasopressor agents. Addt'l Comments At the present time the patient will continue ICU evaluation and care/support. A transthoracic echocardiogram and an ICD interrogation has been requested. Hopefully this will help guide additional evaluation and care from a cardiac standpoint. The patient's case has been discussed and reviewed with Dr. Crawford.
[2021-06-13] MEDS: Aspirin 81 MG TAB.CHEW PO (10:25)
[2021-06-13] MEDS: Citalopram 20 MG Tablet PO (10:25)
[2021-06-13] MEDS: Pantoprazole Sodium 40 MG Tablet PO (10:26)
[2021-06-13] MEDS: Clopidogrel Bisulfate 75 MG Tablet PO (10:26)
[2021-06-13] MEDS: oxyCODONE 5 MG Tablet PO (10:33)
[2021-06-13] MEDS: Acetaminophen 500 MG Tablet 1000 MG PO (10:34)
[2021-06-13] MEDS: Ammonium Lactate 225 gm Bottle 1 APPLIC TOPICAL (10:39)
--- NOTE | 2021-06-13 11:04 | WOUNDNOTE ---
wound photo: right stump
[2021-06-13 11:19] LABS: Partial Thromboplast Time 59.9 Seconds (24.1-36.2)
[2021-06-13] MEDS: Juven (unflavored) Packet 1 PACKET PO (11:23)
[2021-06-13] MEDS: Norepinephrine 8 mg/250 mL 0.9% NS 28.1 MG CONT INF (11:26)
[2021-06-13 11:30] LABS: Bedside Glucose 108 mg/dL (70-110)
--- NOTE | 2021-06-13 13:34 | PN.HOSP_ITS ---
Subjective Subjective Patient seen and examined. He had no complaints. His stumps were being dressed by wound care. Review of systems otherwise negative. His DKA has resolved. He remains on Levophed drip as well as heparin drip on account of elevated troponins. Objective Data Objective Data Vital Signs: Vital Signs Temp Pulse Resp BP Pulse Ox 97.4 F L 113 H 22 H 99/59 L 92 06/13/21 12:00 06/13/21 13:00 06/13/21 13:00 06/13/21 13:00 06/13/21 13:00 Oxygen Flow Rate (L/min) 2 Oxygen Delivery Method Room Air Weight: 184 lb 6.4 oz Body Mass Index (BMI) 39.2 Intake & Output: Intake and Output for Last 24 Hours 06/11/21 06/12/21 06/13/21 23:59 23:59 23:59 Intake Total 3440.53 / 3468.63 3044.14 / 3072.24 1185.13 / 1185.13 Output Total 1000 / 1000 1150 / 1400 825 / 825 Balance 2440.53 / 2468.63 1894.14 / 1672.24 360.13 / 360.13 Lab / Micro Data Result Diagrams: 06/13/21 05:00 06/13/21 05:00 Labs: Laboratory Results - last 24 hr 06/11/21 05:30: Urine Color Cancelled, Urine Clarity Cancelled, Urine pH Cancel led, Ur Specific [place] Cancelled, U Specif Grav (Refrac) Cancelled, Urine Protein Cancelled, Urine Glucose (UA) Cancelled, Urine Ketones Cancelled, Urine Occult Blood Cancelled, Urine Nitrite Cancelled, Urine Bilirubin Cancelled, Urine Urobilinogen Cancelled, Ur Leukocyte Esterase Cancelled, Urine RBC Cancelled, Urine WBC Cancelled, Ur Squamous Epith Cells Cancelled, Ur Transition Epith Cell Cancelled, Ur Renal Epithelial Cell Cancelled, Calcium Oxalate Crystal Cancelled, Uric Acid Crystals Cancelled, Triple Phos Crystals Cancelled, Other Crystals Cancelled, Amorphous Sediment Cancelled, Urine Bacteria Cancelled, Hyaline Casts Cancelled, Fine Granular Casts Cancelled, Coarse Granular Casts Cancelled, Waxy Casts Cancelled, RBC Casts Cancelled, WBC Casts Cancelled, Urine Mucus Cancelled, Urine Trichomonas Cancelled, Urine Yeast Cancelled 06/12/21 03:00: Phosphorus 2.7, Magnesium 0.8 L* 06/12/21 16:34: POC Glucose 217 H 06/12/21 16:40: APTT 63.1 H 06/12/21 21:18: POC Glucose 189 H 06/12/21 23:10: APTT 52.9 H 06/13/21 05:00: Vancomycin Trough 23.3 H 06/13/21 05:00: WBC 11.8 H, RBC 3.32 L, Hgb 10.8 L, Hct 33.3 L, MCV 100.3 H, MCH 32.5 H, MCHC 32.4, RDW Std Deviation 53.5 H, RDW Coeff of Jac 14.6, Plt Count 154, MPV 9.4, Immature Gran % (Auto) 0.800, Neut % (Auto) 80.6 H, Lymph % (Auto) 8.9 L, [place] % (Auto) 7.6, Eos % (Auto) 1.4, Baso % (Auto) 0.7, Absolute Neuts (auto) 9.5 H, Absolute Lymphs (auto) 1.05, Nucleated RBC % 0 06/13/21 05:00: Sodium 138, Potassium 3.5, Chloride 101, Carbon Dioxide 32.0, Anion Gap 5, BUN 26 H, Creatinine 0.88, Estim Creat Clear Calc 86.04, Est GFR (MDRD) Af Amer 109, Est GFR (MDRD) Non-Af 90, BUN/Creatinine Ratio 29.5 H, Glucose 92, Calcium 6.7 L, Magnesium 1.8, Total Bilirubin 1.50 H, AST 25, ALT 17, Alkaline Phosphatase 71, Total Protein 5.1 L, Albumin 2.1 L, Globulin 3.0, Albumin/Globulin Ratio 0.7 L 06/13/21 05:00: APTT 62.8 H 06/13/21 11:00: APTT 59.9 H 06/13/21 11:22: POC Glucose 108 Micro: Microbiology 06/11/21 05:30 Urine Catheter - Catheter Urine Culture - Final Culture exhibits no growth. Radiography Diagnostic Testing: Radiology Impression Echocardiogram 06/12/21 11:53 Interpretation Summary Normal LV size. The estimated ejection fraction is 15 %. The left atrium is mildly enlarged. Severe segmental systolic dysfunction (see wall motion). Pulmonary artery systolic pressure is 55 mmHg. Compared to previous study, the left ventricular systolic function is the same.. Contrast injection was performed. Ordering Physician: Gilmer Saldivar Referring Physician: Jcarlos Glasgow Performed By: Kristofer Jimenez RCS Physical Exam Const alert, oriented x3 and no apparent distress Exam Limitations: no limitations HEENT head/scalp atraumatic and moist oral mucous membranes Head and Scalp: normocephalic Eyes PERRL, EOMs intact bilaterally and conjunctivae normal Neck no lymphadenopathy and supple Resp normal respiratory effort, no retractions, no use of accessory muscles and clear to auscultation bilaterally Cardio regular rate, regular rhythm, S1 normal heart sound, S2 normal heart sound and no murmurs Extremity normal to inspection, full ROM and no clubbing, cyanosis or edema Peripheral Pulses: Yes pulses 2+ throughout Skin no rashes or lesions noted Neuro oriented x3 and CN's II-XII intact bilaterally Neuro Narrative: bilateral AKA, wtih stumps neatly dressed. Sensorium / Orientation: awake and alert Psych affect normal Assessment & Plan Assessment/Plan (1) Diabetic ketoacidosis: QUALIFIERS: Diabetes mellitus type: type 1 Diabetes mellitus complication detail: without coma Qualified Code(s): E10.10 - Type 1 diabetes mellitus with ketoacidosis without coma (2) Acute kidney injury: (3) Elevated troponin: (4) Non-ST elevation (NSTEMI) myocardial infarction: PLAN: #DKA * Patient claims he is compliant with his insulin but states his sugars have been fluctuating and since he had his AKA surgery earlier this year, he has been struggling with episodic low blood sugars alternating with high blood sugars. * A1c 6.5. * DKA has resolved. Now on his basal insulin with insulin sliding scale. Checks AC at bedtime. * #Septic shock * Source is unclear. Patient remains on Levophed. Titrate Levophed to maintain MAP more than 65. * On vancomycin and meropenem. Full repeat cultures. * To be started on midodrine today. * #WEST: * Diuretics on hold. * Fluids currently on hold as patient has history of heart failure. * Thought to be possibly due to ATN. * Resolved. Creatinine today 0.88 which is his baseline. #Non-STEMI * On heparin drip. Cardiology on board. * 2D echo today * On aspirin and Plavix as well as high intensity statin * #Heart failure with reduced ejection fraction * Not in exacerbation. Has known EF of 20%. Diuretics and Entresto on hold in light of WEST. * #Right lower extremity wound * Apparently right lower extremity stump has not been healing well. Does not appear to be the source of infection though. Wound care on board. On d oxycycline which she has been prescribed chronically for this. * #Stage II decubitus ulcer: Present on admission. Wound care on board. #Hypothyroidism: On Synthroid DVT prophylaxis: Lovenox Charges/Coding Visit Charges Inpatient E&M: 34095 Subs Hosp L3
[2021-06-13] MEDS: Midodrine HCl 5 MG Tablet 10 MG PO (16:07)
--- NOTE | 2021-06-13 16:11 | PCM.RX.CS ---
Consult Pharmacy has been consulted to manage selected antiobiotic: Vancomycin Type of Consult: Follow-up Prior Doses of Antibiotics Received/Current Regimen: 500mg iv q12h Labs: Sodium 138 mmol/L (136-145) 06/13/21 05:00 Potassium 3.5 mmol/L (3.5-5.1) 06/13/21 05:00 Chloride 101 mmol/L (98-107) 06/13/21 05:00 Carbon Dioxide 32.0 mmol/L (21.0-32.0) 06/13/21 05:00 Anion Gap 5 (5-15) 06/13/21 05:00 BUN 26 mg/dL (7-18) H 06/13/21 05:00 Creatinine 0.88 mg/dL (0.70-1.30) 06/13/21 05:00 Est GFR (MDRD) Af Amer 109 mL/min (>60) 06/13/21 05:00 Est GFR (MDRD) Non-Af 90 mL/min (>60) 06/13/21 05:00 BUN/Creatinine Ratio 29.5 RATIO (10-20) H 06/13/21 05:00 Glucose 92 mg/dL (74-106) 06/13/21 05:00 Vancomycin Trough 23.3 ug/mL (5.0-15.0) H 06/13/21 05:00 Microbiology: Microbiology 06/11/21 05:30 Urine Catheter - Catheter Urine Culture - Final Culture exhibits no growth. Weight used for dosin.6 kg Estimated Creatinine Clearance: 59 ml/min Goal Trough: 15-20 mcg/mL Pharmacy Plan for Drug Dosing: CrCl calculated to be ~59 ml/min for adjusted body weight of 56.9kg. Trough level was drawn today at 0500 but was 35 min after dose was hung, therefore value is erroneous. Have ordered another trough level for tomorrow before 0400 dose. Pharmacy Service will continue to monitor and adjust dosing as required. Follow-Up Labs: Trough Vancomycin - 06.14.21 @0330 before 0400 dose
[2021-06-13 16:16] LABS: Bedside Glucose 85 mg/dL (70-110)
[2021-06-13] MEDS: Lidocaine 5% Patch 1 PATCH TOPICAL (21:51)
[2021-06-13] MEDS: Pravastatin 40 MG Tablet PO (21:52)
[2021-06-13] MEDS: tiZANidine HCl 2 MG Tablet 4 MG PO (21:52)
[2021-06-13 22:10] LABS: Bedside Glucose 72 mg/dL (70-110)
[2021-06-13] MEDS: Norepinephrine 8 mg/250 mL 0.9% NS 18.8 MG CONT INF (22:38)
[2021-06-13] MEDS: 0.9% Saline Lock 10 ML Syringe IV (23:03)
[2021-06-14] VITALS (27 sets, daily range): BP systolic 86–110; BP diastolic 40–69; PULSE 77–113; RESP 10–21; TEMP 35.8–37; O2SAT 90–100
[2021-06-14] MEDS: Vancomycin IV 500 MG/100 ML BAG 100 MG IV ×2 (03:00→15:53)
[2021-06-14 04:26] LABS: Hemoglobin 10.5 g/dL (13.0-16.5); Mean Corp Hgb Conc 31.8 g/dL (32-36); Mean Corpuscular Volume 100.6 fL (80-94); Mean Platelet Vol. 9.3 fl (6.2-12.0); Platelet Count 128 K/mm3 (150-450); RBC Distribution Width CV 14.7 % (11.6-14.6); RBC Distribution Width SD 54.1 fl (35.1-43.9); Red Blood Count 3.28 M/mm3 (4.6-6.2)
[2021-06-14 04:47] LABS: Anion Gap 3 (5-15); BUN 23 mg/dL (7-18); BUN/Creat Ratio 37.5 RATIO (10-20); Calcium,Total 7.1 mg/dL (8.5-10.1); Chloride 101 mmol/L (98-107); Creatinine, Serum 0.61 mg/dL (0.70-1.30); EST Glomerular Filtration Rate 136 mL/min (>60); Est Glom Filt Rate - Afr Amer 165 mL/min (>60); Estimated Creatinine Clearance 76.67 ml/min; Glucose 48 mg/dL (74-106); Potassium 3.6 mmol/L (3.5-5.1); Sodium Level 137 mmol/L (136-145); Troponin-I HS 275 pg/mL (3.0-78.0)
[2021-06-14 04:49] LABS: Partial Thromboplast Time 76.3 Seconds (24.1-36.2)
[2021-06-14] MEDS: Levothyroxine 100 MCG Tablet 200 MCG PO (06:05)
[2021-06-14] MEDS: Dextrose 50%-Water 25 GM/50 ML DISP.SYRIN IV (06:07)
[2021-06-14 06:40] LABS: Bedside Glucose 91 mg/dL (70-110)
[2021-06-14] MEDS: TITRATION PARAMETER CHANGE 1 EACH IV (06:41)
--- NOTE | 2021-06-14 06:49 | PN.CC_ITS ---
Assessment & Plan Assessment/Plan (1) Diabetic ketoacidosis: QUALIFIERS: Diabetes mellitus complication detail: without coma Diabetes mellitus type: type 1 Qualified Code(s): E10.10 - Type 1 diabetes mellitus with ketoacidosis without coma (2) Septic shock: (3) Chronic obstructive pulmonary disease: (4) Obstructive sleep apnea: (5) Peripheral arterial occlusive disease: (6) ALL treated with BiPAP: (7) Diabetes mellitus type 2 with atherosclerosis of arteries of extremities: PLAN: RECOMMENDATIONS: 1. Continue Levophed to maintain a mean arterial pressure at or above 65 mmHg. 2. Await ICD interrogation. 3. Continue empiric antimicrobials. 4. Continue heparin infusion. 5. Continue midodrine 3 times daily. 6. Check TSH and perform cosyntropin stimulation test. 7. Potential ischemic evaluation by cardiology. IMPRESSIONS: 1. Undifferentiated shock The patient initially presented to the hospital on June 10 with progressive dyspnea and hyperglycemia. His hospital course has been complicated by DKA and an NSTEMI. Although the patient was initially being treated under the presumption of septic shock, no definitive source of infection has yet to be identified. The patient still has a vasopressor requirement. Therefore, it is certainly plausible that the patient's persistent hypotension could be cardiogenic in etiology. Cardiology is currently following to assist with medical management. Anticipate ICD interrogation today. In the interim, the patient will be continued on Levophed to maintain a mean arterial pressure at or above 65 mmHg. Empiric antimicrobials will also be continued while awaiting finalized infectious work-up. Scheduled midodrine 3 times daily will also be continued. For the sake of completeness, will check TSH and perform a cosyntropin stimulation test to evaluate for adrenal insufficiency. 2. Acute DKA secondary to problem #1 Resolved. Hold Lantus given hypoglycemia and limited p.o. intake. Continue sliding scale coverage for now. 3. Non-ST elevation RI secondary to problems 1 and 2 in the setting of peripheral vascular disease/systolic CHF Continue heparin infusion for now. Cardiology is currently following to assist with medical management. 4. Acute kidney injury secondary to problem #1 Improved. Likely secondary to ischemic ATN in the setting of #1. Creatinine has improved with volume expansion and stabilization of hemodynamics with vasopressor support. Continue to monitor urine output. No current indication for renal replacement therapy. 5. Stage II decubitus ulcer/bilateral BKA/history of MDRO/COPD/ALL with noncompliance Complicates care, management, recovery and prognosis. Continue supportive measures as noted above. TIME: 34 minutes of critical care time, independent of procedures, was spent addressing the patient's undifferentiated shock, diabetic ketoacidosis, NSTEMI, acute kidney injury, review of all data and collaboration with care team. Subjective Subjective The patient was seen and examined at the bedside this morning. Events from the last 24 hours have been reviewed. The patient is currently afebrile and maintaining appropriate oxygen saturations on 2 L/min via nasal cannula. The patient remains on Levophed at 10 mcg/min to maintain hemodynamic stability. He remains on a continuous heparin infusion. The patient is documented to be overall net +8.5 L for the hospitalization. Creatinine has normalized. Glucose was low this morning at 48. The patient is still awaiting device interrogation. He remains on broad-spectrum antimicrobials. Objective Data Objective Data The patient's most recent lab work, culture data and imaging studies have all been personally reviewed. Surface echocardiogram dated July 2020 demonstrated an ejection fraction of 20%. Repeat echocardiogram completed on June 13 demonstrated normal LV size with an ejection fraction of 15% and severe segmental systolic dysfunction. Pulmonary artery systolic pressure was estimated to be 55 mmHg. Wound culture from May 09 was positive for MRSA. Blood and urine cultures have demonstrated no growth to date. Vital Signs: Vital Signs Temp Pulse Resp BP Pulse Ox 96.9 F L 77 12 95/64 100 06/14/21 04:00 06/14/21 04:00 06/14/21 04:00 06/14/21 04:00 06/14/21 04:00 Oxygen Flow Rate (L/min) 2 Oxygen Delivery Method Nasal Cannula Weight: 83.642 kg Body Mass Index (BMI) 39.2 Intake & Output: Intake and Output for Last 24 Hours 06/12/21 06/13/21 06/14/21 23:59 23:59 23:59 Intake Total 3044.14 / 3072.24 2015.36 / 2098.66 384.00 / 384.00 Output Total 1150 / 1400 825 / 1100 500 / 500 Balance 1894.14 / 1672.24 1190.36 / 998.66 -116.00 / -116.00 Lab / Micro Data Result Diagrams: 06/14/21 04:15 06/14/21 04:15 Labs: Laboratory Results - last 24 hr 06/13/21 11:00: APTT 59.9 H 06/13/21 11:22: POC Glucose 108 06/13/21 16:10: POC Glucose 85 06/13/21 22:04: POC Glucose 72 06/14/21 04:15: WBC 8.0, RBC 3.28 L, Hgb 10.5 L, Hct 33.0 L, MCV 100.6 H, MCH 32.0, MCHC 31.8 L, RDW Std Deviation 54.1 H, RDW Coeff of Jac 14.7 H, Plt Count 128 L, MPV 9.3 06/14/21 04:15: APTT 76.3 H 06/14/21 04:15: Sodium 137, Potassium 3.6, Chloride 101, Carbon Dioxide 33.0 H, Anion Gap 3 L, BUN 23 H, Creatinine 0.61 L, Estim Creat Clear Calc 76.67, Est GFR (MDRD) Af Amer 165, Est GFR (MDRD) Non-Af 136, BUN/Creatinine Ratio 37.5 H, Glucose 48 L, Calcium 7.1 L, Troponin I High Sens 275 H* 06/14/21 06:31: POC Glucose 91 Micro: Microbiology 06/11/21 05:30 Urine Catheter - Catheter Urine Culture - Final Culture exhibits no growth. Radiography Diagnostic Testing: Radiology Impression Echocardiogram 06/12/21 11:53 Interpretation Summary Normal LV size. The estimated ejection fraction is 15 %. The left atrium is mildly enlarged. Severe segmental systolic dysfunction (see wall motion). Pulmonary artery systolic pressure is 55 mmHg. Compared to previous study, the left ventricular systolic function is the same.. Contrast injection was performed. Ordering Physician: Gilmer Saldivar Referring Physician: Jcarlos Glasgow Performed By: Kristofer Jimenez RCS Physical Exam Const alert and no apparent distress General Appearance: cooperative Nutritional Appearance: obese HEENT normocephalic and head/scalp atraumatic Teeth and Gingiva: poor dentition Eyes PERRL and EOMs intact bilaterally Neck supple General: trachea midline and CVC in place Chest inspection of chest normal Resp Auscultation: diminished lung sounds; Negative for rales, rhonchi or wheezes Cardio S1 normal heart sound and S2 normal heart sound Rate: tachycardic GI normal to inspection, nondistended, normoactive bowel sounds Extremity General Extremity: amputation Skin Wound Narrative: Stage II coccyx wound Neuro CN's II-XII intact bilaterally and no focal motor deficits Psych cooperative and affect normal Charges/Coding Procedures Hospitalists Procedures: 77705 Critial Care 1st Hr
[2021-06-14 07:33] LABS: Thyroid Stim Hormone (TSH) 4.18 uIU/mL (0.358-3.74)
[2021-06-14] MEDS: Cosyntropin 0.25 MG in 0.9% Normal Saline (Pres. free 1 ML 30 MG IV (09:00)
[2021-06-14] MEDS: Clopidogrel Bisulfate 75 MG Tablet PO (09:39)
[2021-06-14] MEDS: Pantoprazole Sodium 40 MG Tablet PO (09:39)
[2021-06-14] MEDS: CHLORHEXIDINE GLUC 2% CLOTH 1 EACH TOWELETTE TOPICAL (09:39)
[2021-06-14] MEDS: Citalopram 20 MG Tablet PO (09:39)
[2021-06-14] MEDS: Aspirin 81 MG TAB.CHEW PO (09:39)
[2021-06-14] MEDS: Midodrine HCl 5 MG Tablet 10 MG PO ×2 (09:39→17:54)
--- NOTE | 2021-06-14 10:02 | PCM.PN.CARD ---
Subjective Subjective The patient states his presenting symptoms were more concerning for his shortness of breath/dyspnea. He believes that has improved. Objective Data Vital Signs: Vital Signs Temp Pulse Resp BP Pulse Ox 96.9 F L 92 12 86/69 L 96 06/14/21 04:00 06/14/21 08:00 06/14/21 07:00 06/14/21 07:00 06/14/21 07:00 Oxygen Flow Rate (L/min) 2 Oxygen Delivery Method Nasal Cannula Weight: 184 lb 8.43 oz Body Mass Index (BMI) 39.2 Intake & Output: Intake and Output for Last 24 Hours 06/12/21 06/13/21 06/14/21 23:59 23:59 23:59 Intake Total 3044.14 / 3072.24 2015.36 / 2098.66 509.00 / 509.00 Output Total 1150 / 1400 825 / 1100 500 / 500 Balance 1894.14 / 1672.24 1190.36 / 998.66 9 / 9.00 Lab / Micro Data Result Diagrams: 06/14/21 04:15 06/14/21 04:15 Labs: Laboratory Results - last 24 hr 06/13/21 11:00: APTT 59.9 H 06/13/21 11:22: POC Glucose 108 06/13/21 16:10: POC Glucose 85 06/13/21 22:04: POC Glucose 72 06/14/21 04:15: WBC 8.0, RBC 3.28 L, Hgb 10.5 L, Hct 33.0 L, MCV 100.6 H, MCH 32.0, MCHC 31.8 L, RDW Std Deviation 54.1 H, RDW Coeff of Jac 14.7 H, Plt Count 128 L, MPV 9.3 06/14/21 04:15: APTT 76.3 H 06/14/21 04:15: Sodium 137, Potassium 3.6, Chloride 101, Carbon Dioxide 33.0 H, Anion Gap 3 L, BUN 23 H, Creatinine 0.61 L, Estim Creat Clear Calc 76.67, Est GFR (MDRD) Af Amer 165, Est GFR (MDRD) Non-Af 136, BUN/Creatinine Ratio 37.5 H, Glucose 48 L, Calcium 7.1 L, Troponin I High Sens 275 H* 06/14/21 04:15: TSH 4.18 H 06/14/21 06:31: POC Glucose 91 06/14/21 09:00: Cortisol 22.40 Micro: Microbiology 06/11/21 05:30 Urine Catheter - Catheter Urine Culture - Final Culture exhibits no growth. Cardiology Labs/Tests 06/13/21 11:00: APTT 59.9 H 06/14/21 04:15: WBC 8.0, RBC 3.28 L, Hgb 10.5 L, Hct 33.0 L, MCV 100.6 H, MCH 32.0, MCHC 31.8 L, Plt Count 128 L, MPV 9.3 06/14/21 04:15: APTT 76.3 H 06/14/21 04:15: Sodium 137, Potassium 3.6, Chloride 101, Carbon Dioxide 33.0 H, Anion Gap 3 L, BUN 23 H, Creatinine 0.61 L, Est GFR (MDRD) Af Amer 165, Est GFR (MDRD) Non-Af 136, BUN/Creatinine Ratio 37.5 H, Glucose 48 L, Calcium 7.1 L Rhythm: Sinus rhythm; nonsustained wide-complex tachycardia concerning for electronic ventricular paced rhythm versus nonsustained VT Radiography Diagnostic Testing: Radiology Impression Echocardiogram 06/12/21 11:53 Interpretation Summary Normal LV size. The estimated ejection fraction is 15 %. The left atrium is mildly enlarged. Severe segmental systolic dysfunction (see wall motion). Pulmonary artery systolic pressure is 55 mmHg. Compared to previous study, the left ventricular systolic function is the same.. Contrast injection was performed. Ordering Physician: Gilmer Saldivar Referring Physician: Jcarlos Glasgow Performed By: Kristofer Jimenez RCS Physical Exam Const alert and oriented x3 Orientation / Consciousness: awake HEENT normocephalic, head/scalp atraumatic and hearing grossly normal bilaterally Eyes PERRL, EOMs intact bilaterally and conjunctivae normal Neck full ROM, supple and no JVD Chest Chest: left pectoral incision Resp clear to auscultation bilaterally Cardio regular rate, regular rhythm, S1 normal heart sound and S2 normal heart sound Heart Sounds: murmur systolic II/ harsh mid left sternal border, LVOT and sternal notch GI normal to inspection, nondistended, normoactive bowel sounds Extremity Extremity Narrative: Bilateral BKA General Extremity: edema bilateral (BKA) Skin General Skin Exam: ecchymosis Psych mental status grossly normal Assessment & Plan Assessment/Plan (1) Non-ST elevation (NSTEMI) myocardial infarction: PLAN: The patient has abnormal cardiac enzymes. They are decreasing. It is unclear at this time whether this represents a true type I event versus a type II event secondary to supply demand mismatch from his noncardiovascular conditions/comorbidities superimposed upon his underlying cardiovascular state-as suspected by Dr. Saldivar. At the moment he will continue medical therapy as deemed appropriate. His medications may need to be adjusted as he remains hypotensive and he requires IV vasopressors to support his medications based upon concerns of a possible sepsis syndrome as well. His echocardiogram is noted. (2) Coronary artery disease: PLAN: He does have a history of CAD. He has undergone both PCI and CABG. At the present time he is continuing supportive medical therapy for his underlying cardiovascular noncardiovascular condition. (3) History of coronary artery stent placement: PLAN: It appears his most recent PCI was performed at [facility] in [place], [place] on 03-27-2019 at which time he received a bare-metal stent to the first diagonal branch. Depending upon his clinical course and findings he may or may not eventually require repeat evaluation in the cardiac catheterization laboratory. (4) S/P CABG (coronary artery bypass graft): PLAN: He does have a history of CABG. Based upon his most recent diagnostic cardiac catheterization/PCI procedure of 03-27-2019, it appears based upon the conclusion, that he had a MAYS to the LAD which was patent and an SVG to the PDA which was patent. (5) Ischemic cardiomyopathy: PLAN: He has a history of an ischemic mediated cardiomyopathy with severely diminished LV systolic function. His left ventricular wall motion systolic function remain declined. (6) Biventricular implantable cardioverter-defibrillator (ICD) in situ: PLAN: He has a history of an underlying biventricular ICD. A request has previously been made to have this reevaluated to a assist with analysis of his cardiac rhythm and ongoing evaluation and care. (7) Hyperlipidemia: PLAN: He should continue risk factor valuation care as deemed appropriate. (8) Septic shock: PLAN: The patient has also been diagnosed with a sepsis syndrome. This could also impact his cardiac enzyme levels. He has been requiring medical therapy/support with IV vasopressor agents. Addt'l Comments The patient's case was discussed and reviewed with Dr. Crawford. At the moment there is concern of the patient's cardiovascular disease process/findings and hypotension as to whether this is a primary cardiovascular event related to his underlying CAD process versus a noncardiovascular event related to a noncardiovascular issue yet to be definitively identified these the patient continues noncardiovascular evaluation and care). At the moment there is consideration to proceeding with further evaluation in the cardiac catheterization laboratory to assess the patient's coronary/graft anatomy for any significant changes that would lead to these findings that would require additional evaluation and care. The procedure and risks were discussed with the patient. He was agreeable to this approach. In the interim he will continue combined cardiac and noncardiac evaluation and care. This note was generated using a voice recognition system and there may be incorrect words, spelling or punctuation that were not noted when reviewing the office note prior to saving. Procedure Criteria Type of Procedure Procedure Type: Elective Elective Risks - COVID COVID Risk Discussion: The surgeon/proceduralist and patient have discussed in detail the risk of exposure to and/or potential harm posed by the COVID-19 virus with having a surgery/procedure at this time versus the risk of delaying the surgery/procedure. It is not possible to know either the risk of delaying the surgery or procedure or chance of getting an infection with perfect accuracy, but a joint decision was made between the patient and the surgeon/proceduralist to proceed at this time with the scheduled surgery/procedure as indicated on the consent form.
[2021-06-14] MEDS: Ammonium Lactate 225 gm Bottle 1 APPLIC TOPICAL (10:22)
[2021-06-14] MEDS: DAKIN'S SOL HALF STRENGTH (=0.25%) 1 APPLIC TOPICAL (10:23)
[2021-06-14 11:51] LABS: Partial Thromboplast Time 40.2 Seconds (24.1-36.2)
[2021-06-14] MEDS: Norepinephrine 8 mg/250 mL 0.9% NS 18.8 MG CONT INF (12:00)
--- NOTE | 2021-06-14 12:04 | CHAPLAIN ---
Type of Pastoral Visit _x__ Initial Visit ___ Follow-up Visit ___ On-call Visit ___ General Patient Visit ___ Spiritual Assessment ___ Family Conference ___ Bereavement ___ Rapid Response ___ Code Blue ___ Other (describe below) Pastoral Care Referral From _x__ Patient ___ Family ___ Nurse ___ Physician ___ Lockstitch Machine Operator ___ Community Facilitator ___ Other (describe below) Sacrament/Intervention _x__ Active listening ___ Anointing ___ Jew ___ Bereavement ___ Communion ___ Laxmi exploration ___ ___ Life review _x__ Prayer ___ Reconciliation ___ Sacrament of Sick _x__ Supportive presence ___ Wedding ___ Other (describe below) Pastoral Comments patient has been seen before in previous admission; pt is scheduled for a Heart Cath soon; spouse is with him; time for pt to talk about his situation; offer of support to both; prayer given
[2021-06-14 12:05] LABS: Bedside Glucose 134 mg/dL (70-110)
--- NOTE | 2021-06-14 12:12 | CASEMGMT ---
RN CM NOTE: Pt has traditional MCR and can go to tertiary facility of choice if transfer is recommended. Gina MEDINAN RN CM
--- NOTE | 2021-06-14 13:40 | PN.HOSP_ITS ---
Subjective Subjective Patient seen and examined. He had no active complaints about his health but complained about the food that he had been before breakfast and said he had not received what he had asked for. He denied any pain, any fever or chills, and palpitations, any nausea or vomiting. Review of systems otherwise negative. Objective Data Objective Data Vital Signs: Vital Signs Temp Pulse Resp BP Pulse Ox 98.3 F 111 H 13 110/69 100 06/14/21 12:00 06/14/21 12:00 06/14/21 12:00 06/14/21 12:00 06/14/21 12:00 Oxygen Flow Rate (L/min) 2 Oxygen Delivery Method Room Air Weight: 184 lb 8.43 oz Body Mass Index (BMI) 39.2 Intake & Output: Intake and Output for Last 24 Hours 06/12/21 06/13/21 06/14/21 23:59 23:59 23:59 Intake Total 3044.14 / 3072.24 2015.36 / 2098.66 932.11 / 932.11 Output Total 1150 / 1400 825 / 1100 950 / 950 Balance 1894.14 / 1672.24 1190.36 / 998.66 -17.89 / -17.89 Lab / Micro Data Result Diagrams: 06/14/21 04:15 06/14/21 04:15 Labs: Laboratory Results - last 24 hr 06/13/21 16:10: POC Glucose 85 06/13/21 22:04: POC Glucose 72 06/14/21 04:15: WBC 8.0, RBC 3.28 L, Hgb 10.5 L, Hct 33.0 L, MCV 100.6 H, MCH 32.0, MCHC 31.8 L, RDW Std Deviation 54.1 H, RDW Coeff of Jac 14.7 H, Plt Count 128 L, MPV 9.3 06/14/21 04:15: APTT 76.3 H 06/14/21 04:15: Sodium 137, Potassium 3.6, Chloride 101, Carbon Dioxide 33.0 H, Anion Gap 3 L, BUN 23 H, Creatinine 0.61 L, Estim Creat Clear Calc 76.67, Est GFR (MDRD) Af Amer 165, Est GFR (MDRD) Non-Af 136, BUN/Creatinine Ratio 37.5 H, Glucose 48 L, Calcium 7.1 L, Troponin I High Sens 275 H* 06/14/21 04:15: TSH 4.18 H 06/14/21 06:31: POC Glucose 91 06/14/21 09:00: Cortisol 22.40 06/14/21 09:30: Cortisol 29.20 H 06/14/21 10:00: Cortisol 31.00 H 06/14/21 11:30: APTT 40.2 H 06/14/21 12:02: POC Glucose 134 H Micro: Microbiology 06/11/21 05:30 Urine Catheter - Catheter Urine Culture - Final Culture exhibits no growth. Physical Exam Const alert, oriented x3 and no apparent distress General Appearance: cooperative Exam Limitations: no limitations HEENT normocephalic, head/scalp atraumatic and moist oral mucous membranes Head and Scalp: normocephalic Eyes PERRL, EOMs intact bilaterally and conjunctivae normal Neck no lymphadenopathy and supple Resp normal respiratory effort, no retractions, no use of accessory muscles and clear to auscultation bilaterally Cardio regular rhythm, S1 normal heart sound, S2 normal heart sound and no murmurs Cardio Narrative: tachycardic GI normal to inspection, nondistended, normoactive bowel sounds, soft to palpation, non-tender and non-distended Extremity normal to inspection, full ROM and no clubbing, cyanosis or edema Extremity Narrative: bilateral AKAs, intact dressing. Skin no rashes or lesions noted Neuro oriented x3 and CN's II-XII intact bilaterally Sensorium / Orientation: awake and alert Psych affect normal Assessment & Plan Assessment/Plan (1) Diabetic ketoacidosis: QUALIFIERS: Diabetes mellitus complication detail: without coma Diabetes mellitus type: type 1 Qualified Code(s): E10.10 - Type 1 diabetes mellitus with ketoacidosis without coma (2) Acute kidney injury: (3) Elevated troponin: (4) Non-ST elevation (NSTEMI) myocardial infarction: PLAN: #DKA * resolved. * on lantus. ISS. Accuchecks ACHS. * A1c 6.5. * DKA has resolved. * #Septic shock * Source is unclear. Patient still remains on Levophed. Titrate Levophed to ma intain MAP more than 65. * On vancomycin and meropenem. Full repeat cultures. * started on midodrine yesterday. * #WEST: * resolved. #Non-STEMI * still on heparin drip. Cardiology on board. * 2D echo; EF is 15%, with severe segmental systolic dysfunction adn RVSP of 55mmhg. ICD leads in right ventricle. * On aspirin and Plavix as well as high intensity statin * #Heart failure with reduced ejection fraction * 2D echo as above, with EF of 15%. Diuretics and Entresto on hold in light of WEST. * #Right lower extremity wound * Wound care on board. On doxycycline which he has been prescribed chronically for this. * #Stage II decubitus ulcer: Present on admission. Wound care on board. #Hypothyroidism: On Synthroid DVT prophylaxis: Lovenox Charges/Coding Visit Charges Inpatient E&M: 60628 Subs Hosp L3
--- NOTE | 2021-06-14 14:26 | CL.D_ITS ---
Patient Name: KURT JEONG Study Date: 06/14/2021 Performing: Jorje Timmons MD Ht: 56 inches 142 cm : 1945 Wt: 185.4 lbs 84 kg Age: 75 Gender: male BSA: 1.72 PROCEDURE(S) PERFORMED [id number])LHC/COR/LV/CABG CLINICAL PROFILE AND INDICATIONS Indications: ACS > 24 hrs, LV Dysfunction, Other Heart Failure: NYHA Class: 4, Newly Diagnosed: No, Heart Failure Type: Systolic Stress/Imaging Stress/Image Study Performed: No Angina Classification Anginal Classification w/in 2 Weeks: CCS IV CAD Presentations: Non-STEMI. CONCLUSIONS Elevated Left Ventricular End Diastolic Pressure Segmented LV systolic dysfunction- Severe LVEF: by LV gram 15 % [place] Multivessel CAD MAYS to LAD: patent SVG to RPDA: occluded DX1: stent: patent RECOMMENDATIONS Risk factor modification Medical therapy Case discussed / reviewed with Dr. Singh of Interventional Cardiology DESCRIPTION OF PROCEDURE The patient arrived to the procedure lab. The risks and benefits of the procedure as well as a full d escription of our services here and current unavailability of surgical backup were fully explained to the patient and/or their significant other prior to the catheterization. The Timeout was completed, verifying the correct patient and procedure. The patient's procedural site was prepped and draped in the usual fashion. Local anesthetic was given subcutaneously to right groin region with Lidocaine 2%. Using a modified Seldinger technique, arterial access was obtained via the right femoral artery, a 4 Fr sheath was inserted Left internal mammary artery graft to the LAD selective angiography was perfo rmed in multiple views using a 4 Fr. IM catheter. Left Ventriculography was performed in DUTTON projecti on using a 4 Fr. Pigtail catheter. LV to AO pullback pressures were then recorded.The arterial sheath was pulled and manual compression applied until hemostasis is achieved. CORONARY ANGIOGRAPHY DOMINANCE: Right Dominant LEFT HEART ASSESSMENT Left Ventricular Ejection Fraction: by LV Gram 15 % Anterior Akinesis. Inferior Basal Akinesis. Inferior Mid Akinesis. Apical Akinesis Elevated Left Ventricular End Diastolic Pressure LVEDP: 23 mmHg LEFT MAIN: Angiographically normal LEFT ANTERIOR DESCENDING ARTERY: PROX LAD: Moderate calcification MID LAD: is occluded with the mid to distal LAD filling from the MAYS graft DIAGONAL 1: Proximal - Previously placed stent is patent CIRCUMFLEX ARTERY: OSTIAL CIRC: small vessel: eccentric: hazy: 95 % Stenosis MID CIRC: diffuse: irregular: 95 % Stenosis RIGHT CORONARY ARTERY: PROX RCA: is occluded GRAFTS: MAYS graft to the Mid LAD is patent Saphenous Vein graft to the RPDA is totally occluded COMPLICATIONS No Complications PROCEDURE MEDICATIONS Oxygen: 2 L/min via nasal cannula SUMMARY OF HEMODYNAMIC DATA Time AIR REST ECG 12:56:16 AO 104/67 (83) SA 13:23:07 LV 111/3, 25 13:38:06 LV 112/0, 23 13:38:14 LV 106/7, 28 13:39:07 LV 109/3, 21 13:39:22 LVp 108/2, 19 13:39:27 AOp 108/46 (68) 13:39:32 Signed By Jorje Timmons MD On 06/14/2021 14:25:59 Jorje Timmons MD
[2021-06-14 16:01] LABS: Bedside Glucose 143 mg/dL (70-110)
[2021-06-14 16:24] LABS: Vancomycin, Trough Level 14.7 ug/mL (5.0-15.0)
[2021-06-14] MEDS: 0.9% Saline Lock 10 ML Syringe IV (21:15)
[2021-06-14] MEDS: tiZANidine HCl 2 MG Tablet 4 MG PO (21:16)
[2021-06-14] MEDS: Pravastatin 40 MG Tablet PO (21:17)
[2021-06-15] VITALS (41 sets, daily range): BP systolic 78–116; BP diastolic 43–66; PULSE 83–111; RESP 14–24; TEMP 36.1–37.2; O2SAT 95–100
[2021-06-15 00:41] LABS: Bedside Glucose 223 mg/dL (70-110)
[2021-06-15] MEDS: Norepinephrine 8 mg/250 mL 0.9% NS 18.8 MG CONT INF (01:44)
[2021-06-15] MEDS: CHLORHEXIDINE GLUC 2% CLOTH 1 EACH TOWELETTE TOPICAL (02:00)
[2021-06-15] MEDS: Vancomycin IV 500 MG/100 ML BAG 100 MG IV (03:27)
[2021-06-15 04:02] LABS: Hematocrit 31.9 % (40-54); Hemoglobin 10.1 g/dL (13.0-16.5); Mean Corp Hgb Conc 31.7 g/dL (32-36); Mean Corpuscular Hgb 32.1 pg (27.0-32.0); Mean Corpuscular Volume 101.3 fL (80-94); Mean Platelet Vol. 9.3 fl (6.2-12.0); Platelet Count 141 K/mm3 (150-450); RBC Distribution Width CV 14.8 % (11.6-14.6); RBC Distribution Width SD 53.8 fl (35.1-43.9); Red Blood Count 3.15 M/mm3 (4.6-6.2); White Blood Count 8.5 K/mm3 (4.4-11.0)
[2021-06-15 04:23] LABS: Anion Gap 13 (5-15); BUN 28 mg/dL (7-18); BUN/Creat Ratio 26.9 RATIO (10-20); Calcium,Total 7.6 mg/dL (8.5-10.1); Chloride 99 mmol/L (98-107); Creatinine, Serum 1.04 mg/dL (0.70-1.30); EST Glomerular Filtration Rate 74 mL/min (>60); Est Glom Filt Rate - Afr Amer 90 mL/min (>60); Estimated Creatinine Clearance 73.77 ml/min; Glucose 266 mg/dL (74-106); Potassium 4.7 mmol/L (3.5-5.1); Sodium Level 136 mmol/L (136-145)
[2021-06-15] MEDS: Levothyroxine 100 MCG Tablet 200 MCG PO (06:34)
--- NOTE | 2021-06-15 06:44 | PN.CC_ITS ---
Assessment & Plan Assessment/Plan (1) Diabetic ketoacidosis: QUALIFIERS: Diabetes mellitus complication detail: without coma Diabetes mellitus type: type 1 Qualified Code(s): E10.10 - Type 1 diabetes mellitus with ketoacidosis without coma (2) Septic shock: (3) Chronic obstructive pulmonary disease: (4) Obstructive sleep apnea: (5) Peripheral arterial occlusive disease: (6) ALL treated with BiPAP: (7) Diabetes mellitus type 2 with atherosclerosis of arteries of extremities: PLAN: RECOMMENDATIONS: 1. Continue Levophed to maintain a mean arterial pressure at or above 65 mmHg. 2. Okay to stop antibiotics from my perspective. 3. Continue midodrine 3 times daily. 4. Goals of care discussion with cardiology and the patient's family. IMPRESSIONS: 1. Undifferentiated shock The patient initially presented to the hospital on June 10 with progressive dyspnea and hyperglycemia. His hospital course has been complicated by DKA and an NSTEMI. Although the patient was initially being treated under the presump tion of septic shock, no definitive source of infection has yet to be identified. Therefore, septic shock has been ruled out. Antibiotics will be discontinued accordingly. TSH was within normal limits. Cosyntropin stimulation test was within normal limits. I strongly suspect that the patient's underlying hypotension is likely secondary to cardiac etiologies. Cardiac catheterization revealed an ejection fraction of 15% with severe segmental LV systolic dysfunction, elevated LVEDP and an occluded SVG to RPDA. Tentative plans for goals of care discussion involving cardiology and the marryen t's family. 2. Acute DKA secondary to problem #1 Resolved. Continue sliding scale coverage for now. 3. Non-ST elevation TN secondary to problems 1 and 2 in the setting of peripheral vascular disease/systolic CHF Continue medical management per cardiology recommendations. 4. Acute kidney injury secondary to problem #1 Resolved. Likely secondary to ischemic ATN in the setting of #1. Creatinine has improved with volume expansion and stabilization of hemodynamics with vasopressor support. Continue to monitor urine output. No current indication for renal replacement therapy. 5. Stage II decubitus ulcer/bilateral BKA/history of MDRO/COPD/ALL with noncompliance Complicates care, management, recovery and prognosis. Continue supportive measures as noted above. TIME: 32 minutes of critical care time, independent of procedures, was spent addressing the patient's undifferentiated shock, diabetic ketoacidosis, NSTEMI, acute kidney injury, review of all data and collaboration with care team. Subjective Subjective The patient was seen and examined at the bedside this morning. Events from the last 24 hours have been reviewed. The patient is currently afebrile and maintaining appropriate oxygen saturations on 2 L/min. The patient remains on Levophed at 10 mcg/min to maintain hemodynamic stability. Cardiac catheterization performed yesterday revealed an occluded SVG to RPDA. He is currently documented to be overall net +9.4 L for the hospitalization. Objective Data Objective Data The patient's most recent lab work, culture data and imaging studies have all been personally reviewed. Surface echocardiogram dated July 2020 demonstrated an ejection fraction of 20%. Repeat echocardiogram completed on June 13 demonstrated normal LV size with an ejection fraction of 15% and severe segmental systolic dysfunction. Pulmonary artery systolic pressure was estimated to be 55 mmHg. Wound culture from May 09 was positive for MRSA. Blood and urine cultures have demonstrated no growth to date. Vital Signs: Vital Signs Temp Pulse Resp BP Pulse Ox 98.3 F 89 18 93/48 L 98 06/15/21 04:00 06/15/21 04:00 06/15/21 04:00 06/15/21 04:00 06/15/21 04:00 Oxygen Flow Rate (L/min) 2 Oxygen Delivery Method Nasal Cannula Weight: 83.6 kg Body Mass Index (BMI) 39.2 Intake & Output: Intake and Output for Last 24 Hours 06/13/21 06/14/21 06/15/21 23:59 23:59 23:59 Intake Total 2015.36 / 2098.66 1841.41 / 2100.21 557.81 / 557.81 Output Total 825 / 1100 1625 / 1825 200 / 200 Balance 1190.36 / 998.66 216.41 / 275.21 357.81 / 357.81 Lab / Micro Data Attestation: I reviewed the patient's lab results. Result Diagrams: 06/15/21 03:50 06/15/21 03:50 Labs: Laboratory Results - last 24 hr 06/14/21 04:15: TSH 4.18 H 06/14/21 09:00: Cortisol 22.40 06/14/21 09:30: Cortisol 29.20 H 06/14/21 10:00: Cortisol 31.00 H 06/14/21 11:30: APTT 40.2 H 06/14/21 12:02: POC Glucose 134 H 06/14/21 15:30: Vancomycin Trough 14.7 06/14/21 15:56: POC Glucose 143 H 06/14/21 21:08: POC Glucose 223 H 06/15/21 03:50: Sodium 136, Potassium 4.7, Chloride 99, Carbon Dioxide 24.0, Anion Gap 13, BUN 28 H, Creatinine 1.04, Estim Creat Clear Calc 73.77, Est GFR (MDRD) Af Amer 90, Est GFR (MDRD) Non-Af 74, BUN/Creatinine Ratio 26.9 H, Glucose 266 H, Calcium 7.6 L 06/15/21 03:50: WBC 8.5, RBC 3.15 L, Hgb 10.1 L, Hct 31.9 L, MCV 101.3 H, MCH 32.1 H, MCHC 31.7 L, RDW Std Deviation 53.8 H, RDW Coeff of Jac 14.8 H, Plt Count 141 L, MPV 9.3 Micro: Microbiology 06/11/21 05:30 Urine Catheter - Catheter Urine Culture - Final Culture exhibits no growth. Physical Exam Const alert and no apparent distress General Appearance: cooperative Nutritional Appearance: obese HEENT normocephalic and head/scalp atraumatic Teeth and Gingiva: poor dentition Eyes PERRL and EOMs intact bilaterally Neck supple General: trachea midline and CVC in place Chest inspection of chest normal Resp Auscultation: diminished lung sounds; Negative for rales, rhonchi or wheezes Cardio S1 normal heart sound and S2 normal heart sound Rate: tachycardic Heart Sounds: murmur GI normal to inspection, nondistended, normoactive bowel sounds Extremity General Extremity: amputation Skin Wound Narrative: Stage II coccyx wound Neuro CN's II-XII intact bilaterally and no focal motor deficits Psych cooperative and affect normal Charges/Coding Procedures Hospitalists Procedures: [id number] Critial Care 1st Hr
--- NOTE | 2021-06-15 07:42 | PCM.PN.CARD ---
Subjective Subjective The patient is awake and alert. He believes that he feels better overall since being in the hospital. Objective Data Vital Signs: Vital Signs Temp Pulse Resp BP Pulse Ox 98.3 F 88 18 94/43 L 100 06/15/21 04:00 06/15/21 07:15 06/15/21 07:00 06/15/21 07:15 06/15/21 07:00 Oxygen Flow Rate (L/min) 2 Oxygen Delivery Method Nasal Cannula Weight: 184 lb 4.903 oz Body Mass Index (BMI) 39.2 Intake & Output: Intake and Output for Last 24 Hours 06/13/21 06/14/21 06/15/21 23:59 23:59 23:59 Intake Total 2015.36 / 2098.66 1841.41 / 2100.21 719.36 / 719.36 Output Total 825 / 1100 1625 / 1825 250 / 250 Balance 1190.36 / 998.66 216.41 / 275.21 469.36 / 469.36 Lab / Micro Data Result Diagrams: 06/15/21 03:50 06/15/21 03:50 Labs: Laboratory Results - last 24 hr 06/14/21 09:00: Cortisol 22.40 06/14/21 09:30: Cortisol 29.20 H 06/14/21 10:00: Cortisol 31.00 H 06/14/21 11:30: APTT 40.2 H 06/14/21 12:02: POC Glucose 134 H 06/14/21 15:30: Vancomycin Trough 14.7 06/14/21 15:56: POC Glucose 143 H 06/14/21 21:08: POC Glucose 223 H 06/15/21 03:50: Sodium 136, Potassium 4.7, Chloride 99, Carbon Dioxide 24.0, Anion Gap 13, BUN 28 H, Creatinine 1.04, Estim Creat Clear Calc 73.77, Est GFR (MDRD) Af Amer 90, Est GFR (MDRD) Non-Af 74, BUN/Creatinine Ratio 26.9 H, Glucose 266 H, Calcium 7.6 L 06/15/21 03:50: WBC 8.5, RBC 3.15 L, Hgb 10.1 L, Hct 31.9 L, MCV 101.3 H, MCH 32.1 H, MCHC 31.7 L, RDW Std Deviation 53.8 H, RDW Coeff of Jac 14.8 H, Plt Count 141 L, MPV 9.3 Cardiology Labs/Tests 06/14/21 11:30: APTT 40.2 H 06/15/21 03:50: Sodium 136, Potassium 4.7, Chloride 99, Carbon Dioxide 24.0, Anion Gap 13, BUN 28 H, Creatinine 1.04, Est GFR (MDRD) Af Amer 90, Est GFR (MDRD) Non-Af 74, BUN/Creatinine Ratio 26.9 H, Glucose 266 H, Calcium 7.6 L 06/15/21 03:50: WBC 8.5, RBC 3.15 L, Hgb 10.1 L, Hct 31.9 L, MCV 101.3 H, MCH 32.1 H, MCHC 31.7 L, Plt Count 141 L, MPV 9.3 Rhythm: Electronic ventricular paced rhythm Cardiac Cath: CONCLUSIONS Elevated Left Ventricular End Diastolic Pressure Segmented LV systolic dysfunction- Severe LVEF: by LV gram 15 % [place] Multivessel CAD MAYS to LAD: patent SVG to RPDA: occluded DX1: stent: patent RECOMMENDATIONS Risk factor modification Medical therapy Case discussed / reviewed with Dr. Singh of Interventional Cardiology DESCRIPTION OF PROCEDURE The patient arrived to the procedure lab. The risks and benefits of the procedure as well as a full description of our services here and current unavailability of surgical backup were fully explained to the patient and/or their significant other prior to the catheterization. The Timeout was completed, verifying the correct patient and procedure. The patient's procedural site was prepped and draped in the usual fashion. Local anesthetic was given subcutaneously to right groin region with Lidocaine 2%. Using a modified Seldinger technique, arterial access was obtained via the right femoral artery, a 4Fr sheath was inserted Left internal mammary artery graft to the LAD selective angiography was performed in multiple views using a 4 Fr. IM catheter. Left Ventriculography was performed in DUTTON projection using a 4 Fr. Pigtail catheter. LV to AO pullback pressures were then recorded.The arterial sheath was pulled and manual compression applied until hemostasis is achieved. CORONARY ANGIOGRAPHY DOMINANCE: Right Dominant LEFT HEART ASSESSMENT Left Ventricular Ejection Fraction: by LV Gram 15 % Anterior Akinesis. Inferior Basal Akinesis. Inferior Mid Akinesis. Apical Akinesis Elevated Left Ventricular End Diastolic Pressure LVEDP: 23 mmHg LEFT MAIN: Angiographically normal LEFT ANTERIOR DESCENDING ARTERY: PROX LAD: Moderate calcification MID LAD: is occluded with the mid to distal LAD filling from the MAYS graft DIAGONAL 1: Proximal - Previously placed stent is patent CIRCUMFLEX ARTERY: OSTIAL CIRC: small vessel: eccentric: hazy: 95 % Stenosis MID CIRC: diffuse: irregular: 95 % Stenosis RIGHT CORONARY ARTERY: PROX RCA: is occluded GRAFTS: MAYS graft to the Mid LAD is patent Saphenous Vein graft to the RPDA is totally occluded Physical Exam Const alert and oriented x3 Orientation / Consciousness: awake HEENT normocephalic, head/scalp atraumatic and hearing grossly normal bilaterally Eyes PERRL, EOMs intact bilaterally and conjunctivae normal Neck full ROM, supple and no JVD Chest Chest: left pectoral incision Resp clear to auscultation bilaterally Cardio regular rate, regular rhythm, S1 normal heart sound and S2 normal heart sound Heart Sounds: murmur systolic II/ harsh mid left sternal border, LVOT and sternal notch GI normal to inspection, nondistended, normoactive bowel sounds Extremity Extremity Narrative: Bilateral BKA General Extremity: edema bilateral (BKA) Skin General Skin Exam: ecchymosis Psych mental status grossly normal Assessment & Plan Assessment/Plan (1) Non-ST elevation (NSTEMI) myocardial infarction: PLAN: The patient has abnormal cardiac enzymes. They are decreasing. The patient has undergone subsequent evaluation with diagnostic cardiac catheterization. The report is as noted. The present time he was not felt to be a candidate for any additional revascularization therapy. Thus, he has been delegated to continued conservative medical management. (2) Coronary artery disease: PLAN: He does have a history of CAD. He has undergone both PCI and CABG in the past. Based upon his cardiac catheterization it appears his SVG graft is now occluded. He was not thought to be a candidate for any additional revascularization therapy. At the present time he is continuing supportive medical therapy for his underlying cardiovascular and noncardiovascular condition. (3) History of coronary artery stent placement: PLAN: It appears his most recent PCI was performed at [facility] in [place], [place] on 03-27-2019 at which time he received a bare-metal stent to the first diagonal branch. Based upon his cardiac catheterization his MAYS to the LAD remained patent. His diagonal branch bare-metal stent was patent. His SVG to the PDA was occluded. His case was reviewed by interventional cardiology who did not feel he was a candidate for additional catheter-based revascularization therapy. (4) S/P CABG (coronary artery bypass graft): PLAN: He does have a history of CABG. Based upon his most recent diagnostic cardiac catheterization/PCI procedure of 03-27-2019, it appears based upon the conclusion, that he had a MAYS to the LAD which was patent and an SVG to the PDA which was patent. Again at the present time his SVG graft to the PDA is occluded. He is continuing medical therapy. (5) Ischemic cardiomyopathy: PLAN: He has a history of an ischemic mediated cardiomyopathy with severely diminished LV systolic function. His left ventricular wall motion systolic function remain declined. He continues to require IV Levophed with increasing doses to support his hemodynamics. From a cardiovascular standpoint as he does not appear to be a candidate for additional revascularization therapy, if there is no other reason for his hypotension requiring IV vasopressors other than his cardiac status, then consideration will be given as to whether or not he would be considered a candidate at a tertiary care center such as [facility] or [facility] or for an LVAD versus if not then need to be considered for palliative/hospice care. (6) Biventricular implantable cardioverter-defibrillator (ICD) in situ: PLAN: He has a history of an underlying biventricular ICD. He has a Fanminder device. It was interrogated yesterday. It appears to be functioning appropriately demonstrating electronic ventricular paced rhythms. (7) Hyperlipidemia: PLAN: He should continue risk factor valuation care as deemed appropriate. (8) Septic shock: PLAN: The patient has also been diagnosed with a sepsis syndrome. This could also impact his cardiac enzyme levels. He has been undergoing noncardiac medical therapy/support with IV antibiotics. He has been requiring medical therapy/support with IV vasopressor agents. Addt'l Comments This note was generated using a voice recognition system and there may be incorrect words, spelling or punctuation that were not noted when reviewing the office note prior to saving.
[2021-06-15] MEDS: Pantoprazole Sodium 40 MG Tablet PO (08:32)
[2021-06-15] MEDS: Clopidogrel Bisulfate 75 MG Tablet PO (08:33)
[2021-06-15] MEDS: Aspirin 81 MG TAB.CHEW PO (08:33)
[2021-06-15] MEDS: Citalopram 20 MG Tablet PO (08:33)
[2021-06-15] MEDS: Midodrine HCl 5 MG Tablet 10 MG PO ×3 (08:33→18:09)
[2021-06-15] MEDS: Insulin Lispro 100 UNIT/ML INSULN.PEN SC ×4 (08:34→21:06)
[2021-06-15] MEDS: Ammonium Lactate 225 gm Bottle 1 APPLIC TOPICAL (08:37)
[2021-06-15] MEDS: DAKIN'S SOL HALF STRENGTH (=0.25%) 1 APPLIC TOPICAL (08:38)
[2021-06-15 09:00] LABS: Bedside Glucose 294 mg/dL (70-110)
[2021-06-15 11:35] LABS: Bedside Glucose 295 mg/dL (70-110)
--- NOTE | 2021-06-15 12:00 | NURSING ---
Patient refusing to be turned. Educated on the importance of turning q 2 hours.
[2021-06-15] MEDS: Norepinephrine 8 mg/250 mL 0.9% NS 26.3 MG CONT INF ×2 (12:42→22:27)
[2021-06-15] MEDS: Docusate Sodium 100 MG Capsule 200 MG PO (12:48)
--- NOTE | 2021-06-15 13:30 | PN.HOSP_ITS ---
Subjective Subjective Patient seen and examined. He had no active complaints today. He said he had been told by critical care that he was to be taken off of the Levophed drip. Review of systems otherwise negative. He is on 2 L of oxygen. Objective Data Objective Data Vital Signs: Vital Signs Temp Pulse Resp BP Pulse Ox 97.1 F L 87 18 110/54 L 99 06/15/21 13:00 06/15/21 13:00 06/15/21 13:00 06/15/21 13:00 06/15/21 13:00 Oxygen Flow Rate (L/min) 2 Oxygen Delivery Method Nasal Cannula Weight: 184 lb 4.903 oz Body Mass Index (BMI) 39.2 Intake & Output: Intake and Output for Last 24 Hours 06/13/21 06/14/21 06/15/21 23:59 23:59 23:59 Intake Total 2014.36 / 8.66 1841.41 / 2100.21 966.49 / 966.49 Output Total 825 / 1100 1625 / 1825 250 / 250 Balance 1190.36 / 998.66 216.41 / 275.21 716.49 / 716.49 Lab / Micro Data Result Diagrams: 06/15/21 03:50 06/15/21 03:50 Labs: Laboratory Results - last 24 hr 06/14/21 15:30: Vancomycin Trough 14.7 06/14/21 15:56: POC Glucose 143 H 06/14/21 21:08: POC Glucose 223 H 06/15/21 03:50: Sodium 136, Potassium 4.7, Chloride 99, Carbon Dioxide 24.0, Anion Gap 13, BUN 28 H, Creatinine 1.04, Estim Creat Clear Calc 73.77, Est GFR (MDRD) Af Amer 90, Est GFR (MDRD) Non-Af 74, BUN/Creatinine Ratio 26.9 H, Gl ucose 266 H, Calcium 7.6 L 06/15/21 03:50: WBC 8.5, RBC 3.15 L, Hgb 10.1 L, Hct 31.9 L, MCV 101.3 H, MCH 32.1 H, MCHC 31.7 L, RDW Std Deviation 53.8 H, RDW Coeff of Jac 14.8 H, Plt Count 141 L, MPV 9.3 06/15/21 08:26: POC Glucose 294 H 06/15/21 11:09: POC Glucose 295 H Micro: Microbiology 06/11/21 05:30 Urine Catheter - Catheter Urine Culture - Final Culture exhibits no growth. Physical Exam Const alert, oriented x3 and no apparent distress General Appearance: cooperative Exam Limitations: no limitations HEENT normocephalic, head/scalp atraumatic and moist oral mucous membranes Head and Scalp: normocephalic Eyes PERRL, EOMs intact bilaterally and conjunctivae normal Neck no lymphadenopathy and supple Resp normal respiratory effort, no retractions, no use of accessory muscles and clear to auscultation bilaterally Cardio regular rate, regular rhythm, S1 normal heart sound, S2 normal heart sound and no murmurs GI normal to inspection, nondistended, normoactive bowel sounds, soft to palpation, non-tender and non-distended Extremity normal to inspection, full ROM and no clubbing, cyanosis or edema Extremity Narrative: bilateral BKAs, intact dressing. Skin no rashes or lesions noted Neuro oriented x3 and CN's II-XII intact bilaterally Sensorium / Orientation: awake and alert Psych affect normal Assessment & Plan Assessment/Plan (1) Diabetic ketoacidosis: QUALIFIERS: Diabetes mellitus type: type 1 Diabetes mellitus complication detail: without coma Qualified Code(s): E10.10 - Type 1 diabetes mellitus with ketoacidosis without coma (2) Acute kidney injury: (3) Elevated troponin: (4) Non-ST elevation (NSTEMI) myocardial infarction: PLAN: #DKA * resolved. * on lantus. ISS. Accuchecks ACHS. * A1c 6.5. * DKA has resolved. * #Septic shock * Source is unclear. to be weaned off levophed today. * On vancomycin and meropenem. Repeat blood cultures pending. Urine culture negative. * on midodrine * #WEST: * resolved. #Non-STEMI * still on heparin drip. Cardiology on board. * 2D echo; EF is 15%, with severe segmental systolic dysfunction adn RVSP of 55mmhg. ICD leads in right ventricle. * On aspirin and Plavix as well as high intensity statin * #Heart failure with reduced ejection fraction * 2D echo as above, with EF of 15%. Diuretics and Entresto on hold in light of WEST. * #Right lower extremity wound * Wound care on board. On doxycycline which he has been prescribed chronically for this. * Wound culture growing MRSA.On vancomycin * #Stage II decubitus ulcer: Present on admission. Wound care on board. #Hypothyroidism: On Synthroid DVT prophylaxis: Lovenox Charges/Coding Visit Charges Inpatient E&M: 79789 Subs Hosp L2
[2021-06-15 18:45] LABS: Bedside Glucose 228 mg/dL (70-110)
[2021-06-15] MEDS: Pravastatin 40 MG Tablet PO (21:06)
[2021-06-15] MEDS: tiZANidine HCl 2 MG Tablet 4 MG PO (21:06)
[2021-06-15 21:16] LABS: Bedside Glucose 190 mg/dL (70-110)
--- NOTE | 2021-06-15 21:23 | NURSING ---
pt refused to be turned @ HS. repositioned in bed x2 assist.
[2021-06-16] VITALS (23 sets, daily range): BP systolic 100–120; BP diastolic 55–70; PULSE 86–118; RESP 16–24; TEMP 36.2–36.9; O2SAT 95–100
[2021-06-16 04:43] LABS: Anion Gap 7 (5-15); BUN 38 mg/dL (7-18); BUN/Creat Ratio 24.8 RATIO (10-20); Calcium,Total 7.7 mg/dL (8.5-10.1); Chloride 100 mmol/L (98-107); Creatinine, Serum 1.53 mg/dL (0.70-1.30); EST Glomerular Filtration Rate 47 mL/min (>60); Est Glom Filt Rate - Afr Amer 57 mL/min (>60); Estimated Creatinine Clearance 50.09 ml/min; Glucose 157 mg/dL (74-106); Potassium 4.7 mmol/L (3.5-5.1); Sodium Level 136 mmol/L (136-145)
[2021-06-16] MEDS: Levothyroxine 100 MCG Tablet 200 MCG PO (06:10)
[2021-06-16] MEDS: 0.9% Saline Lock 10 ML Syringe IV (06:10)
[2021-06-16] MEDS: Insulin Lispro 100 UNIT/ML INSULN.PEN SC (06:10)
--- NOTE | 2021-06-16 06:24 | PN.CC_ITS ---
Assessment & Plan Assessment/Plan (1) Diabetic ketoacidosis: QUALIFIERS: Diabetes mellitus complication detail: without coma Diabetes mellitus type: type 1 Qualified Code(s): E10.10 - Type 1 diabetes mellitus with ketoacidosis without coma (2) Chronic obstructive pulmonary disease: (3) Obstructive sleep apnea: (4) Peripheral arterial occlusive disease: (5) ALL treated with BiPAP: (6) Diabetes mellitus type 2 with atherosclerosis of arteries of extremities: PLAN: RECOMMENDATIONS: 1. Continue Levophed to maintain a mean arterial pressure at or above 65 mmHg. 2. Continue midodrine 3 times daily. 3. Transfer to [facility] when bed is available for LVAD assessment. 4. Ongoing management will be deferred to cardiology and hospitalist. Will sign off at this time. Please call with any additional questions. IMPRESSIONS: 1. Cardiogenic shock The patient initially presented to the hospital on June 10 with progressive dyspnea and hyperglycemia. His hospital course has been complicated by DKA and an NSTEMI. Although the patient was initially being treated under the presumption of septic shock, no definitive source of infection was ever identified. Therefore, septic shock has been ruled out. Antibiotics were subsequently discontinued. TSH was within normal limits. Cosyntropin stimulation test was within normal limits. The etiology for the patient's ongoing hypotension is likely secondary to pump failure in the setting of cardiogenic shock. Cardiac catheterization revealed an ejection fraction of 15% with severe segmental LV systolic dysfunction, elevated LVEDP and an occluded SVG to RPDA. Following discussion with cardiology, the patient is electing to proceed with transfer to [facility] to be evaluated for potential LVAD. The patient remains on a stable dose of Levophed to maintain hemodynamic stability. 2. Acute DKA secondary to problem #1 Resolved. Continue Lantus and sliding scale coverage for now. 3. Non-ST elevation ND secondary to problems 1 and 2 in the setting of peripheral vascular disease/systolic CHF Continue medical management per cardiology recommendations. 4. Acute kidney injury secondary to problem #1 Likely secondary to ischemic ATN in the setting of #1. Creatinine has improved with volume expansion and stabilization of hemodynamics with vasopressor dunbar pport. Continue to monitor urine output. No current indication for renal replacement therapy. 5. Stage II decubitus ulcer/bilateral BKA/history of MDRO/COPD/ALL with noncompliance Complicates care, management, recovery and prognosis. Continue supportive measures as noted above. This note was generated with [employer] dictation software. It may contain incorrect words, spelling, and punctuation that were not noted in checking the note before signing. Subjective Subjective The patient was seen and examined at the bedside this morning. Events from the last 24 hours have been reviewed. Following discussion with cardiology, the patient has decided to entertain the idea of transfer to for potential LVAD. He remains on a stable dose of Levophed to maintain hemodynamic stability. The patient is currently documented to be overall net +10 L for the hospitalization. Objective Data Objective Data The patient's most recent lab work, culture data and imaging studies have all been personally reviewed. Surface echocardiogram dated July 2020 demonstrated an ejection fraction of 20%. Repeat echocardiogram completed on June 13 demonstrated normal LV size with an ejection fraction of 15% and severe segmental systolic dysfunction. Pulmonary artery systolic pressure was estimated to be 55 mmHg. Blood and urine cultures have demonstrated no growth to date. Vital Signs: Vital Signs Temp Pulse Resp BP Pulse Ox 97.1 F L 90 20 H 109/66 100 06/16/21 06:06 06/16/21 06:06 06/16/21 06:06 06/16/21 06:06 06/16/21 06:06 Oxygen Flow Rate (L/min) 2 Oxygen Delivery Method Nasal Cannula Weight: 86.5 kg Body Mass Index (BMI) 39.2 Intake & Output: Intake and Output for Last 24 Hours 06/14/21 06/15/21 06/16/21 23:59 23:59 23:59 Intake Total 1841.41 / 2100.21 1328.60 / 1328.60 201.19 / 201.19 Output Total 1625 / 1825 280 / 280 100 / 100 Balance 216.41 / 275.21 1048.60 / 1048.60 101.19 / 101.19 Lab / Micro Data Attestation: I reviewed the patient's lab results. Result Diagrams: 06/15/21 03:50 06/16/21 04:10 Labs: Laboratory Results - last 24 hr 06/15/21 08:26: POC Glucose 294 H 06/15/21 11:09: POC Glucose 295 H 06/15/21 18:03: POC Glucose 228 H 06/15/21 20:46: POC Glucose 190 H 06/16/21 04:10: Sodium 136, Potassium 4.7, Chloride 100, Carbon Dioxide 29.0, Anion Gap 7, BUN 38 H, Creatinine 1.53 H, Estim Creat Clear Calc 50.09, Est GFR (MDRD) Af Amer 57 L, Est GFR (MDRD) Non-Af 47 L, BUN/Creatinine Ratio 24.8 H, Glucose 157 H, Calcium 7.7 L Micro: Microbiology 06/11/21 05:30 Urine Catheter - Catheter Urine Culture - Final Culture exhibits no growth. Physical Exam Const alert and no apparent distress General Appearance: cooperative Nutritional Appearance: obese HEENT normocephalic and head/scalp atraumatic Teeth and Gingiva: poor dentition Eyes PERRL and EOMs intact bilaterally Neck supple General: trachea midline and CVC in place Chest inspection of chest normal Resp Auscultation: diminished lung sounds; Negative for rales, rhonchi or wheezes Cardio S1 normal heart sound and S2 normal heart sound Rate: tachycardic Heart Sounds: murmur GI normal to inspection, nondistended, normoactive bowel sounds Extremity General Extremity: amputation Skin Wound Narrative: Stage II coccyx wound Neuro CN's II-XII intact bilaterally and no focal motor deficits Psych cooperative and affect normal Charges/Coding Visit Charges Inpatient E&M: 66462 Subs Hosp L3
[2021-06-16 06:36] LABS: Bedside Glucose 154 mg/dL (70-110)
[2021-06-16] MEDS: Norepinephrine 8 mg/250 mL 0.9% NS 26.3 MG CONT INF (07:49)
--- NOTE | 2021-06-16 08:26 | CASEMGMT ---
Social Work PT states he does have a living will and health care POA who he has stated is his Alexia Carr. Documents not provided to [facility] at this time. DAVID Avalos
--- NOTE | 2021-06-16 08:57 | PN.CARD_ITS ---
Subjective Subjective The patient remains in the ICU requiring IV vasopressor agents. He denies ongoing chest discomfort. He denies any acute change in his respiratory status. He states his main concern is he has no appetite and he is very tired and fatigued. Objective Data Vital Signs: Vital Signs Temp Pulse Resp BP Pulse Ox 97.1 F L 90 19 H 106/70 100 06/16/21 06:06 06/16/21 07:00 06/16/21 07:00 06/16/21 07:00 06/16/21 07:00 Oxygen Flow Rate (L/min) 2 Oxygen Delivery Method Nasal Cannula Weight: 190 lb 11.198 oz Body Mass Index (BMI) 39.2 Intake & Output: Intake and Output for Last 24 Hours 06/14/21 06/15/21 06/16/21 23:59 23:59 23:59 Intake Total 1841.41 / 2100.21 1328.60 / 1328.60 246.34 / 246.34 Output Total 1625 / 1825 280 / 280 100 / 100 Balance 216.41 / 275.21 1048.60 / 1048.60 146.34 / 146.34 Lab / Micro Data Result Diagrams: 06/15/21 03:50 06/16/21 04:10 Labs: Laboratory Results - last 24 hr 06/15/21 08:26: POC Glucose 294 H 06/15/21 11:09: POC Glucose 295 H 06/15/21 18:03: POC Glucose 228 H 06/15/21 20:46: POC Glucose 190 H 06/16/21 04:10: Sodium 136, Potassium 4.7, Chloride 100, Carbon Dioxide 29.0, Anion Gap 7, BUN 38 H, Creatinine 1.53 H, Estim Creat Clear Calc 50.09, Est GFR (MDRD) Af Amer 57 L, Est GFR (MDRD) Non-Af 47 L, BUN/Creatinine Ratio 24.8 H, Glucose 157 H, Calcium 7.7 L 06/16/21 06:09: POC Glucose 154 H Micro: Microbiology 06/11/21 05:00 Blood Culture (Wb) - Right Forearm Blood Culture - Final No growth in 5 days. 06/11/21 04:40 Blood Culture (Wb) - Line Draw Blood Culture - Final No growth in 5 days. Cardiology Labs/Tests 06/16/21 04:10: Sodium 136, Potassium 4.7, Chloride 100, Carbon Dioxide 29.0, Anion Gap 7, BUN 38 H, Creatinine 1.53 H, Est GFR (MDRD) Af Amer 57 L, Est GFR (MDRD) Non-Af 47 L, BUN/Creatinine Ratio 24.8 H, Glucose 157 H, Calcium 7.7 L Rhythm: Electronic ventricular paced rhythm Physical Exam Const alert and oriented x3 Orientation / Consciousness: awake HEENT normocephalic, head/scalp atraumatic and hearing grossly normal bilaterally Eyes PERRL, EOMs intact bilaterally and conjunctivae normal Neck full ROM, supple and no JVD Chest Chest: left pectoral incision Resp clear to auscultation bilaterally Cardio regular rate, regular rhythm, S1 normal heart sound and S2 normal heart sound Heart Sounds: murmur systolic II/ harsh mid left sternal border, LVOT and sternal notch GI normal to inspection, nondistended, normoactive bowel sounds Extremity Extremity Narrative: Bilateral BKA General Extremity: edema bilateral (BKA) Skin General Skin Exam: ecchymosis Psych mental status grossly normal Assessment & Plan Assessment/Plan (1) Non-ST elevation (NSTEMI) myocardial infarction: PLAN: The patient has undergone subsequent evaluation with diagnostic cardiac catheterization. The report is as noted. The present time he was not felt to be a candidate for any additional revascularization therapy. (2) Coronary artery disease: PLAN: He does have a history of CAD. He has undergone both PCI and CABG in the past. Based upon his cardiac catheterization it appears his SVG graft is now occluded. He was not thought to be a candidate for any additional revascularization therapy. At the present time he is continuing supportive medical therapy for his underlying cardiovascular and noncardiovascular condition. (3) History of coronary artery stent placement: PLAN: It appears his most recent PCI was performed at [facility] in [place], [place] on 03-27-2019 at which time he received a bare-metal stent to the first diagonal branch. Based upon his cardiac catheterization his MAYS to the LAD remained patent. His diagonal branch bare-metal stent was patent. His SVG to the PDA was occluded. His case was reviewed by interventional cardiology who did not feel he was a candidate for additional catheter-based revascularization therapy. (4) S/P CABG (coronary artery bypass graft): PLAN: He does have a history of CABG. Based upon his most recent diagnostic cardiac catheterization/PCI procedure of 03-27-2019, it appears based upon the conclusion, that he had a MAYS to the LAD which was patent and an SVG to the PDA which was patent. Again at the present time his SVG graft to the PDA is occluded. He is continuing medical therapy. (5) Ischemic cardiomyopathy: PLAN: He has a history of an ischemic mediated cardiomyopathy with severely diminished LV systolic function. His left ventricular wall motion systolic function remain declined. He continues to require IV Levophed with increasing doses to support his hemodynamics. From a cardiovascular standpoint as he does not appear to be a candidate for additional revascularization therapy, if there is no other reason for his hypotension requiring IV vasopressors other than his cardiac status, then consideration will be given as to whether or not he would be considered a candidate at a tertiary care center such as [facility] or [facility] or for an LVAD versus if not then need to be considered for palliative/hospice care. This discussion was held yesterday with the patient and with his spouse via telephone. After they discussed this issue between the 2 of them and their family members they requested transfer to for further advanced cardiovascular evaluation and care. A telephone conversation was held with Dr. Duane Pimentel of CT surgery at . He agreed to accept the patient in transfer when a bed was available for consideration for LVAD therapy. (6) Biventricular implantable cardioverter-defibrillator (ICD) in situ: PLAN: He has a history of an underlying biventricular ICD. He has a [employer] device. It was interrogated. It appears to be functioning appropriately demonstrating electronic ventricular paced rhythms. (7) Hyperlipidemia: PLAN: He should continue risk factor valuation care as deemed appropriate. (8) Septic shock: PLAN: The patient has also been diagnosed with a sepsis syndrome. This could also impact his cardiac enzyme levels. He has been undergoing noncardiac medical therapy/support with IV antibiotics. As no definitive infectious disease source has been found his IV antibiotics have been discontinued. He has been requiring medical therapy/support with IV vasopressor agents. Addt'l Comments The patient's case was discussed and reviewed with Dr. Crawford. This note was generated using a voice recognition system and there may be incorrect words, spelling or punctuation that were not noted when reviewing the office note prior to saving.
[2021-06-16] MEDS: Citalopram 20 MG Tablet PO (09:33)
[2021-06-16] MEDS: Midodrine HCl 5 MG Tablet 10 MG PO ×3 (09:33→17:17)
[2021-06-16] MEDS: Clopidogrel Bisulfate 75 MG Tablet PO (09:33)
[2021-06-16] MEDS: Pantoprazole Sodium 40 MG Tablet PO (09:34)
[2021-06-16] MEDS: Aspirin 81 MG TAB.CHEW PO (09:34)
[2021-06-16] MEDS: DAKIN'S SOL HALF STRENGTH (=0.25%) 1 APPLIC TOPICAL (09:34)
[2021-06-16] MEDS: Ammonium Lactate 225 gm Bottle 1 APPLIC TOPICAL (09:34)
[2021-06-16] MEDS: CHLORHEXIDINE GLUC 2% CLOTH 1 EACH TOWELETTE TOPICAL (09:39)
[2021-06-16 12:16] LABS: Bedside Glucose 119 mg/dL (70-110)
--- NOTE | 2021-06-16 15:56 | PN.HOSP_ITS ---
Subjective Subjective Patient seen and examined. Patient looks lethargic and looks quite ill. He looks very pale today. He remains on Levophed drip and was on 40 mcg/min. He also remains tachycardic. Plan now is for patient to be transferred to for evaluation for an LVAD since he remains persistently hypotensive and so this may be related to his heart. Objective Data Objective Data Vital Signs: Vital Signs Temp Pulse Resp BP Pulse Ox 97.6 F L 113 H 22 H 102/55 L 96 06/16/21 12:00 06/16/21 15:30 06/16/21 15:00 06/16/21 15:30 06/16/21 15:00 Oxygen Flow Rate (L/min) 2 Oxygen Delivery Method Nasal Cannula Weight: 190 lb 11.198 oz Body Mass Index (BMI) 39.2 Intake & Output: Intake and Output for Last 24 Hours 06/14/21 06/15/21 06/16/21 23:59 23:59 23:59 Intake Total 1841.41 / 2100.21 1328.60 / 1328.60 447.46 / 447.46 Output Total 1625 / 1825 280 / 280 200 / 200 Balance 216.41 / 275.21 1048.60 / 1048.60 247.46 / 247.46 Lab / Micro Data Result Diagrams: 06/15/21 03:50 06/16/21 04:10 Labs: Laboratory Results - last 24 hr 06/15/21 18:03: POC Glucose 228 H 06/15/21 20:46: POC Glucose 190 H 06/16/21 04:10: Sodium 136, Potassium 4.7, Chloride 100, Carbon Dioxide 29.0, Anion Gap 7, BUN 38 H, Creatinine 1.53 H, Estim Creat Clear Calc 50.09, Est GFR (MDRD) Af Amer 57 L, Est GFR (MDRD) Non-Af 47 L, BUN/Creatinine Ratio 24.8 H, Glucose 157 H, Calcium 7.7 L 06/16/21 06:09: POC Glucose 154 H 06/16/21 12:10: POC Glucose 119 H Micro: Microbiology 06/11/21 05:00 Blood Culture (Wb) - Right Forearm Blood Culture - Final No growth in 5 days. 06/11/21 04:40 Blood Culture (Wb) - Line Draw Blood Culture - Final No growth in 5 days. 06/11/21 05:30 Urine Catheter - Catheter Urine Culture - Final Culture exhibits no growth. Physical Exam Const alert and oriented x3 Constitutional Narrative: looks very pale and weak General Appearance: cooperative Orientation / Consciousness: lethargic Exam Limitations: no limitations HEENT normocephalic, head/scalp atraumatic and moist oral mucous membranes Head and Scalp: normocephalic Eyes PERRL, EOMs intact bilaterally and conjunctivae normal Neck no lymphadenopathy and supple Resp normal respiratory effort, no retractions, no use of accessory muscles and clear to auscultation bilaterally Cardio regular rate, regular rhythm, S1 normal heart sound, S2 normal heart sound and no murmurs Cardio Narrative: tachycardic GI normal to inspection, nondistended, normoactive bowel sounds, soft to palpation, non-tender and non-distended Extremity normal to inspection, full ROM and no clubbing, cyanosis or edema Extremity Narrative: bilateral BKAs, intact dressing. Skin no rashes or lesions noted Skin Narrative: clear ulcer at distal RLE on stump Neuro oriented x3 and CN's II-XII intact bilaterally Neuro Narrative: bilateral AKA, with stumps neatly dressed. Sensorium / Orientation: awake and alert Psych affect normal Assessment & Plan Assessment/Plan (1) Diabetic ketoacidosis: QUALIFIERS: Diabetes mellitus type: type 1 Diabetes mellitus complication detail: without coma Qualified Code(s): E10.10 - Type 1 diabetes mellitus with ketoacidosis without coma (2) Acute kidney injury: (3) Elevated troponin: (4) Non-ST elevation (NSTEMI) myocardial infarction: PLAN: #DKA * resolved. * on lantus. ISS. Accuchecks ACHS. * A1c 6.5. * DKA has resolved. * #Septic shock vs cardiogenic shock * Patient still remains on Levophed and is about 14 mcg/min. * Has been on broad-spectrum antibiotics but is still not responding. Shock could therefore be possibly cardiogenic shock. Cardiology evaluated patient and recommendation is for patient to be transferred to for LVAD as his EF is only 15% and this may be contributing to persistent shock. * On vancomycin and meropenem. Repeat blood cultures pending. Urine culture negative. * on midodrine * #WEST: * resolved. #Non-STEMI * still on heparin drip. Cardiology on board. * 2D echo; EF is 15%, with severe segmental systolic dysfunction and RVSP of 55m mhg. ICD leads in right ventricle. * On aspirin and Plavix as well as high intensity statin * To be transferred to for evaluation for LVAD. Awaiting a bed. * #Heart failure with reduced ejection fraction * 2D echo as above, with EF of 15%. Diuretics and Entresto on hold in light of WEST. * #Right lower extremity wound * Wound care on board. On doxycycline which he has been prescribed chronically for this. * Wound culture growing MRSA.On vancomycin * #Stage II decubitus ulcer: Present on admission. Wound care on board. #Hypothyroidism: On Synthroid DVT prophylaxis: Lovenox Charges/Coding Visit Charges Inpatient E&M: 66057 [facility] Hosp L3
[2021-06-16 16:41] LABS: Bedside Glucose 190 mg/dL (70-110)
--- NOTE | 2021-06-16 16:59 | DS.PCM_ITS ---
Providers Date of Admission: 06/10/21 Primary Care Physician: Dr. 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 Routine Consulting Provider: Rolf Hickey Reason for Consult: Hypotension EMERGENT Consult: No Notified: Yes Date Notified: 06/11/21 Time Notified: 03:58 Method of Notification: Text 06/13/21 08:22 Consult: Onc/Wound/box car loader Routine Comment: Reason for Consult:: Recent BKA with open wound Reason For Visit: DKA Diagnosis Discharge Diagnosis (1) Diabetic ketoacidosis: Status: Acute Code(s): E11.10 - Type 2 diabetes mellitus with ketoacidosis without coma Qualifiers: Diabetes mellitus complication detail: without coma Diabetes mellitus type: type 1 Qualified Code(s): E10.10 - Type 1 diabetes mellitus with ketoacidosis without coma (2) Acute kidney injury: Status: Acute Code(s): N17.9 - Acute kidney failure, unspecified (3) Elevated troponin: Status: Acute Code(s): R77.8 - Other specified abnormalities of plasma proteins (4) Non-ST elevation (NSTEMI) myocardial infarction: Status: Acute Code(s): I21.4 - Non-ST elevation (NSTEMI) myocardial infarction Medications at Discharge Home Medications aspirin 81 mg tablet,delayed release 81 mg PO DAILY 12/17/19 clopidogrel 75 mg PO DAILY 08/06/20 pravastatin 40 mg PO QHS 08/06/20 ammonium lactate 227 g TP DAILY 01/12/21 levothyroxine 200 mcg PO DAILY #0 tab 01/28/21 tizanidine 4 mg PO QHS 30 Days #60 tab 02/07/21 carvedilol 3.125 mg tablet 3.125 mg PO BID #60 tab 03/17/21 doxycycline monohydrate 100 mg capsule 100 mg PO BID 21 Days #42 cap 05/11/21 acetaminophen 500 mg tablet 1,000 mg PO Q8 PRN tab 06/01/21 citalopram 20 mg tablet 20 mg PO DAILY tab 06/01/21 insulin glargine 100 unit/mL (3 mL) subcutaneous pen 10 unit SUBCUT QHS ml 06/01/21 insulin lispro 100 unit/mL subcutaneous pen 5 unit SUBCUT TIDAC PRN ml 06/01/21 lidocaine 5 % topical patch 1 patch TRANSDERMAL DAILY ea 06/01/21 metolazone 5 mg tablet 5 mg PO .3 Days week tab 06/01/21 omeprazole 40 mg capsule,delayed release 40 mg PO DAILY cap 06/01/21 ondansetron HCl 4 mg tablet 4 mg PO Q8H PRN tab 06/01/21 oxycodone-acetaminophen 5 mg-325 mg tablet 1 tab PO DAILY PRN tab 06/01/21 sacubitril 24 mg-valsartan 26 mg tablet 1 tab PO BID #60 tab 06/01/21 furosemide 40 mg tablet 40 mg PO .COMPLEX #180 tab 06/06/21 Hospital Course Operations None Procedures 2-D Echocardiogram and Central line placement Summary of Care Provided Minutes Spent on Discharge: 45 Hospital Course: Patient is a 75-year-old male with a past medical history as outlined. He was admitted through the ED on 06/10/2021 with a complaint of progressively worsening shortness of breath and elevated blood sugar. He also admitted to weakness and tiredness over the past 1 to 2 months. He had associated rhinorrhea and urinary frequency. In the ED was found to be hypotensive and was also short of breath requiring 3 L of oxygen to maintain saturation above 90%. Labs were significant for WBC of 8 with hemoglobin of 11.3 and platelets of 162. Potassium was elevated at 5.4 and creatinine was 2. Glucose was elevated at 601 and bilirubin was 2.3 and lactic acid was also elevated at 4.4. Initial high-sensitivity troponin was 182. Chest x-ray showed mild atelectasis and EKG showed paced rhythm with a left bundle branch block. He was admitted to be managed for DKA Weight / BMI Weight Weight: 190 lb 11.198 oz Body Mass Index (BMI) 39.2 ABG / Lab / Microbiology Data Result Diagrams: 06/15/21 03:50 06/16/21 04:10 Laboratory: Laboratory Results - last 24 hr 06/15/21 18:03: POC Glucose 228 H 06/15/21 20:46: POC Glucose 190 H 06/16/21 04:10: Sodium 136, Potassium 4.7, Chloride 100, Carbon Dioxide 29.0, Anion Gap 7, BUN 38 H, Creatinine 1.53 H, Estim Creat Clear Calc 50.09, Est GFR (MDRD) Af Amer 57 L, Est GFR (MDRD) Non-Af 47 L, BUN/Creatinine Ratio 24.8 H, Glucose 157 H, Calcium 7.7 L 06/16/21 06:09: POC Glucose 154 H 06/16/21 12:10: POC Glucose 119 H 06/16/21 16:37: POC Glucose 190 H Microbiology: Microbiology 06/11/21 05:00 Blood Culture (Wb) - Right Forearm Blood Culture - Final No growth in 5 days. 06/11/21 04:40 Blood Culture (Wb) - Line Draw Blood Culture - Final No growth in 5 days. 06/11/21 05:30 Urine Catheter - Catheter Urine Culture - Final Culture exhibits no growth. Meaningful Use Info Meaningful Use Diagnoses (Choose all that apply): None applicable Discharge Plan Admission Admit Date/Time: 06/10/21 16:55 Primary Reason for Your Visit: DKA, cardiogenic vs septic shock Attending Provider: Helena Gr Primary Care Provider: Jcarlos Glasgow Consulting Providers: Rolf Hickey ; Gilmer Saldivar Discharge Orders/Prescriptions Prescriptions: No Action aspirin [Adult Aspirin Regimen] 81 mg tablet,delayed release (DR/EC) 81 mg PO DAILY RF: 0 Lantus Solostar U-100 Insulin 100 unit/mL (3 mL) insulin pen 10 unit subcut QHS RF: 0 insulin lispro [Humalog KwikPen Insulin] 100 unit/mL insulin pen 5 unit subcut TIDAC PRN (Reason: bs) RF: 0 acetaminophen 500 mg tablet 1,000 mg PO Q8 PRN (Reason: pain) RF: 0 oxycodone-acetaminophen 5-325 mg tablet 1 tab PO DAILY PRN (Reason: Pain) RF: 0 citalopram 20 mg tablet 20 mg PO DAILY RF: 0 omeprazole 40 mg capsule,delayed release(DR/EC) 40 mg PO DAILY RF: 0 lidocaine 5 % adhesive patch,medicated 1 patch transdermal DAILY RF: 0 ondansetron HCl [Zofran] 4 mg tablet 4 mg PO Q8H PRN (Reason: nausea) RF: 0 metolazone 5 mg tablet 5 mg PO .3 Days week RF: 0 Entresto 24-26 mg tablet 1 tab PO BID Qty: 60 RF: 11 pravastatin 40 MG tablet 40 mg PO QHS RF: 0 clopidogrel 75 MG tablet 75 mg PO DAILY RF: 0 ammonium lactate 396 GM lotion 227 g TP DAILY RF: 0 levothyroxine 200 mcg tablet 200 mcg PO DAILY Qty: 0 RF: 0 tizanidine 2 mg Tablet 4 mg PO QHS 30 Days Qty: 60 RF: 0 carvedilol 3.125 mg tablet 3.125 mg PO BID Qty: 60 RF: 11 doxycycline monohydrate 100 mg capsule 100 mg PO BID 21 Days Qty: 42 RF: 1 furosemide [Lasix] 40 mg tablet 40 mg PO .COMPLEX Qty: 180 RF: 3 Referrals / Follow Up: Jcarlos Glasgow MD [Primary Care Provider] - Disposition Disposition (needs filled in before D/C Order can be placed): Acute Care Hospital Charges/Coding Visit Charges Inpatient E&M: 15418 Disch Hosp
[2021-06-16] MEDS: LORazepam 1 MG Tablet PO (17:17)
[2021-06-16] MEDS: Norepinephrine 8 mg/250 mL 0.9% NS 24.4 MG CONT INF (17:21)
== END 2021-06-16 18:00 | disposition short-term general hospital (02) | DRG 637 ==
LOC: ED 17:12 → ICU 17:51
PROVIDERS: Hospitalist; Internal Medicine Cardiovascular Disease; Internal Medicine Critical Care Medicine; Internal Medicine Interventional Cardiology; Emergency Provider Emergency Medicine; PCP Family Medicine; Visit Provider Student in an Organized Health Care Education/Training Program
DX: E10.10 Type 1 diabetes mellitus with ketoacidosis without coma (principal); N17.0 Acute kidney failure with tubular necrosis; I21.A1 Myocardial infarction type 2; R57.0 Cardiogenic shock; I50.22 Chronic systolic (congestive) heart failure; I25.810 Atherosclerosis of coronary artery bypass graft(s) without angina pectoris; I11.0 Hypertensive heart disease with heart failure; I44.7 Left bundle-branch block, unspecified; I95.9 Hypotension, unspecified; K21.9 Gastro-esophageal reflux disease without esophagitis; E78.00 Pure hypercholesterolemia, unspecified; E78.5 Hyperlipidemia, unspecified; T87.89 Other complications of amputation stump; Y83.5 Amputation of limb(s) as the cause of abnormal reaction of the patient, or of later complication, without mention of misadventure at the time of the procedure; I27.20 Pulmonary hypertension, unspecified; L89.152 Pressure ulcer of sacral region, stage 2; J44.9 Chronic obstructive pulmonary disease, unspecified; I25.10 Atherosclerotic heart disease of native coronary artery without angina pectoris; I25.5 Ischemic cardiomyopathy; G47.33 Obstructive sleep apnea (adult) (pediatric); E10.51 Type 1 diabetes mellitus with diabetic peripheral angiopathy without gangrene; E10.42 Type 1 diabetes mellitus with diabetic polyneuropathy; E03.9 Hypothyroidism, unspecified; F32.A Depression, unspecified; R35.0 Frequency of micturition; Z95.5 Presence of coronary angioplasty implant and graft; Z95.810 Presence of automatic (implantable) cardiac defibrillator; Z97.4 Presence of external hearing-aid; Z95.2 Presence of prosthetic heart valve; Z89.512 Acquired absence of left leg below knee; Z89.511 Acquired absence of right leg below knee; Z91.19 Patient's noncompliance with other medical treatment and regimen; Z79.02 Long term (current) use of antithrombotics/antiplatelets; Z79.4 Long term (current) use of insulin; Z79.890 Hormone replacement therapy; Z79.899 Other long term (current) drug therapy; Z99.81 Dependence on supplemental oxygen; Z87.891 Personal history of nicotine dependence; Z86.14 Personal history of Methicillin resistant Staphylococcus aureus infection
CPT/HCPCS: 71045; 74018; 80048; 80053; 80202; 81001; 82009; 82533; 82803; 82962; 83036; 83605; 83735; 84100; 84443; 84484; 85025; 85027; 85730; 87040; 87086; 92526; 92610; 93005; 93306; 93459; 94762; 97110; 97162; 97165; 97530; 97535; 97802; 97803; 99285; J2185; J7030; J7040; J7050; Q9957; A4216; C1894; C8929; J0834; J2405; J3490; J7799; Q9967